=== PATIENT | female | born 1940 | race Caucasian/White ===

== ENCOUNTER → 2016-11-10 | Outpatient (CLI) | payer OTHER ==
--- NOTE | 2016-11-10 09:27 | XR ---
Lumbosacral spine HISTORY: Low back pain or graph 5 views of the lumbosacral spine on 6 images correlated to prior exam April 2015 Postoperative changes status post posterior lumbar fusion L4-5 S1 laminectomies is again noted. T12 i s thought to be nonrib-bearing. Bone mineralization is reduced. Lumbar vertebral bodies show preserve d height and alignment. Loss of disc height greatest at L4-5 and L5-S1. There is associated spondylos is. No evident spondylolysis. Surgical clips present in the right upper quadrant. IMPRESSION: Stable postoperative findings. Osteopenia. Degenerative disc disease.
== END | disposition home or self-care (01) ==
LOC: RADXRMAIN 08:55
PROVIDERS: ATTEND Family Medicine
DX: M51.36 Other intervertebral disc degeneration, lumbar region (principal); M85.88 Other specified disorders of bone density and structure, other site; Z98.890 Other specified postprocedural states
CPT/HCPCS: 72110

== ENCOUNTER → 2016-11-16 | Outpatient (CLI) | payer OTHER ==
--- NOTE | 2016-11-20 11:43 | MM ---
Reason for exam: screening (asymptomatic). Last mammogram was performed 1 year and 3 months ago. History: Patient is postmenopausal and has history of other cancer at age 60. Family history of breast cancer in paternal aunt at age 70, breast cancer in paternal aunt, and breast cancer in paternal grandmother. Benign excisional biopsy of the right breast. Took estrogen for 5 years. Physical Findings: A clinical breast exam by your physician is recommended on an annual basis and results should be correlated with mammographic findings. MG 3D Screening Mammo W/Cad Bilateral CC and MLO view(s) were taken. Prior study comparison: August 16, 2015, bilateral MG screening mammo w CAD. May 20, 2014, bilateral MG screening mammo w CAD. There are scattered fibroglandular densities. Finding: There are typically benign calcifications in both breasts. There is a chronic nodularity in the left breast, stable. No significant changes in finding since August 16, 2015 and May 20, 2014. ASSESSMENT: Benign, BI-RAD 2 RECOMMENDATION: Routine screening mammogram of both breasts in 1 year.
== END | disposition home or self-care (01) ==
LOC: RADMAMWWP 07:42
PROVIDERS: ATTEND Family Medicine
DX: Z12.31 Encounter for screening mammogram for malignant neoplasm of breast (principal); Z80.3 Family history of malignant neoplasm of breast
CPT/HCPCS: 77063; G0202

== ENCOUNTER 2017-01-05 13:43 | Observation (INO) | payer MEDICARE, OTHER ==
[2017-01-05] MEDS ORDERED: ASPIRIN 81 MG CHEW PO STA (14:39)
[2017-01-05] MEDS ORDERED: NITROGLYCERIN SL TABS 0.4 MG TAB SUBLINGUAL STA ×3 (14:39)
--- NOTE | 2017-01-05 14:42 | ED ---
General Adult HPI - General Chief complaint: Chest Pain Stated complaint: Chest Pain Time Seen by Provider: 01/05/17 14:22 Source: patient, RN notes reviewed Mode of arrival: ambulatory Limitations: no limitations - History of Present Illness Initial comments: Patient is a pleasant 76-year-old female presenting to the emergency department with chest discomfort. Symptoms have been present for a couple of days. Chest discomfort is mild. Patient states arm discomfort on the left is at times severe. Symptoms did improve with aspirin. Arm discomfort is moderate at this time. Patient does have some associated dyspnea. Symptoms are exertional. has had some nausea and some sweating. Patient also has lightheadedness. - Related Data Home Medications Medication Instructions Recorded Confirmed Furosemide [Lasix] 40 mg PO QAM 05/15/14 01/05/17 Insulin Aspart [NovoLOG] See Protocol SQ AC-TID 05/15/14 01/05/17 Levothyroxine Sodium [Synthroid] 100 mcg PO QAM 05/15/14 01/05/17 Potassium Chloride [K-Tab ER] 10 meq PO BID 05/15/14 01/05/17 Insulin Detemir [Levemir] 30 unit SQ HS 06/14/15 01/05/17 Losartan Potassium 100 mg PO QAM 06/14/15 01/05/17 metFORMIN HCL [Glucophage] 1,000 mg PO BID-W/MEALS 06/14/15 01/05/17 Acetaminophen [Tylenol Arthritis] 650 mg PO HS 01/05/17 01/05/17 Artificial Tears-Hypromellose 1 drops BOTH EYES TID PRN 01/05/17 01/05/17 [Artificial Tear Drops] Cholecalciferol [Vitamin D3] 5,000 unit PO DAILY 01/05/17 01/05/17 L.acidoph,Paracasei, B.lactis 1 cap PO DAILY 01/05/17 01/05/17 [Probiotic] Melatonin 5 mg PO HS 01/05/17 01/05/17 [place] Xl 1 cap PO DAILY 01/05/17 01/05/17 Allergies Allergy/AdvReac Type Severity Reaction Status Date / Time azithromycin Allergy Rash/Hives Verified 01/05/17 17:02 [From Zithromax Z-Jeanmarie] sulfamethoxazole Allergy Rash/Hives Verified 01/05/17 17:02 [From Bactrim] trimethoprim [From Bactrim] Allergy Rash/Hives Verified 01/05/17 17:02 hydrochlorothiazide AdvReac lost Verified 01/05/17 13:49 balance and fell Review of Systems ROS Statement: Those systems with pertinent positive or pertinent negative responses have been documented in the HPI. ROS Other: All systems not noted in ROS Statement are negative. Constitutional: Denies: fever Eyes: Denies: eye pain ENT: Denies: ear pain Respiratory: Reports: dyspnea. Denies: cough Cardiovascular: Reports: chest pain Endocrine: Denies: fatigue Gastrointestinal: Reports: nausea. Denies: abdominal pain Genitourinary: Denies: dysuria Musculoskeletal: Denies: back pain Skin: Denies: rash Neurological: Denies: headache Past Medical History Past Medical History: Cancer, COPD, Diabetes Mellitus, Hypertension Additional Past Medical History / Comment(s): RECENT ADMISSION TO WITH VERY ZOE BP & STROKE (NO RESIDUAL, NO CLOT BUSTERS). BASAL CELL CA. COPD FROM SECOND HAND SMOKE. History of Any Multi-Drug Resistant Organisms: None Reported Past Surgical History: Back Surgery, Bariatric Surgery, Cholecystectomy, Hysterectomy, Tonsillectomy Additional Past Surgical History / Comment(s): back surgery. LAP BAND AND THEN PORT REMOVAL. Past Anesthesia/Blood Transfusion Reactions: Previous Problems w/ Anesthesia Past Psychological History: No Psychological Hx Reported Smoking Status: Never smoker Past Alcohol Use History: None Reported Past Drug Use History: None Reported General Exam Limitations: no limitations General appearance: alert, in no apparent distress Head exam: Present: atraumatic Eye exam: Present: normal appearance, PERRL, EOMI. Absent: nystagmus ENT exam: Present: normal oropharynx Neck exam: Present: normal inspection Respiratory exam: Present: normal lung sounds bilaterally Cardiovascular Exam: Present: regular rate, normal rhythm Expanded Peripheral pulses: 2+: Radial (R), Radial (L), Posterior Tibialis (R), Posterior Tibialis (L) GI/Abdominal exam: Present: soft. Absent: tenderness Extremities exam: Present: normal inspection. Absent: pedal edema, calf tenderness Neurological exam: Present: alert, CN II-XII intact. Absent: motor sensory deficit Expanded Speech: Present: fluid speech Cranial nerves: EOM's Intact: Normal Sensory exam: Upper Extremity Light Touch: Normal, Lower Extremity Light Touch: Normal Motor strength exam: RUE: 5, LUE: 5, RLE: 5, LLE: 5 Eye Response: (4) open spontaneously Motor Response: (6) obeys commands Verbal Response: (5) oriented Psychiatric exam: Present: normal affect, normal mood Skin exam: Absent: rash Course Vital Signs 01/05/17 01/05/17 01/05/17 13:47 14:49 15:00 Temperature 98.3 F Pulse Rate 77 79 78 Respiratory 20 18 18 Rate Blood Pressure 165/75 231/121 215/115 O2 Sat by Pulse 99 78 L 98 Oximetry 01/05/17 16:00 Temperature Pulse Rate 66 Respiratory 18 Rate Blood Pressure 183/82 O2 Sat by Pulse 97 Oximetry EKG Findings - EKG Comments: EKG Findings:: Sinus rhythm at 73. RI 136. QRS 102. QT 408. QTC 449. Left axis. LVH criteria. No acute ST change. Medical Decision Making - Medical Decision Making Patient reevaluated and resting comfortably in bed. Patient updated on results and plan. Case was discussed in detail with Dr. Aj, who will admit for Dr. Alvares. Cardiology consult placed. Admission orders written. - Lab Data Result diagrams: 01/05/17 14:35 01/05/17 14:35 Lab Results 01/05/17 01/05/17 01/05/17 Range/Units 14:35 14:35 14:35 WBC 8.3 (3.8-10.6) k/uL RBC 4.54 (3.80-5.40) m/uL Hgb 13.4 (11.4-16.0) gm/dL Hct 39.8 (34.0-46.0) % MCV 87.5 (80.0-100.0) fL MCH 29.4 (25.0-35.0) pg MCHC 33.6 (31.0-37.0) g/dL RDW 13.0 (11.5-15.5) % Plt Count 234 (150-450) k/uL Neutrophils % (Manual) 59.0 % Lymphocytes % (Manual) 27.0 % Monocytes % (Manual) 11.0 % Eosinophils % (Manual) 3.0 % Neutrophils # (Manual) 4.9 (1.3-7.7) k/uL Lymphocytes # (Manual) 2.2 (1.0-4.8) k/uL Monocytes # (Manual) 0.9 (0-1.0) k/uL Eosinophils # (Manual) 0.2 (0-0.7) k/uL Nucleated RBCs 0 (0-0) /100 WBC Toxic Granulation Present Polychromasia Present PT (9.0-12.0) sec INR (<1.1) APTT (22.0-30.0) sec Sodium 142 (137-145) mmol/L Potassium 3.9 (3.5-5.1) mmol/L Chloride 102 (98-107) mmol/L Carbon Dioxide 29 (22-30) mmol/L Anion Gap 11 mmol/L BUN 18 H (7-17) mg/dL Creatinine 1.18 H (0.52-1.04) mg/dL Est GFR (MDRD) Af Amer 54 (>60 ml/min/1.73 sqM) Est GFR (MDRD) Non-Af 45 (>60 ml/min/1.73 sqM) Glucose 152 H (74-99) mg/dL Calcium 9.6 (8.4-10.2) mg/dL Magnesium 1.6 (1.6-2.3) mg/dL Total Bilirubin 0.6 (0.2-1.3) mg/dL AST 25 (14-36) U/L ALT 34 (9-52) U/L Alkaline Phosphatase 109 (38-126) U/L Total Creatine Kinase 111 (30-135) U/L CK-MB (CK-2) 4.0 H* (0.0-2.4) ng/mL CK-MB (CK-2) Rel Index 3.6 Troponin I <0.012 (0.000-0.034) ng/mL NT-Pro-B Natriuret Pep pg/mL Total Protein 6.8 (6.3-8.2) g/dL Albumin 3.9 (3.5-5.0) g/dL 01/05/17 01/05/17 Range/Units 14:35 14:35 WBC (3.8-10.6) k/uL RBC (3.80-5.40) m/uL Hgb (11.4-16.0) gm/dL Hct (34.0-46.0) % MCV (80.0-100.0) fL MCH (25.0-35.0) pg MCHC (31.0-37.0) g/dL RDW (11.5-15.5) % Plt Count (150-450) k/uL Neutrophils % (Manual) % Lymphocytes % (Manual) % Monocytes % (Manual) % Eosinophils % (Manual) % Neutrophils # (Manual) (1.3-7.7) k/uL Lymphocytes # (Manual) (1.0-4.8) k/uL Monocytes # (Manual) (0-1.0) k/uL Eosinophils # (Manual) (0-0.7) k/uL Nucleated RBCs (0-0) /100 WBC Toxic Granulation Polychromasia PT 10.3 (9.0-12.0) sec INR 1.0 (<1.1) APTT 23.3 (22.0-30.0) sec Sodium (137-145) mmol/L Potassium (3.5-5.1) mmol/L Chloride (98-107) mmol/L Carbon Dioxide (22-30) mmol/L Anion Gap mmol/L BUN (7-17) mg/dL Creatinine (0.52-1.04) mg/dL Est GFR (MDRD) Af Amer (>60 ml/min/1.73 sqM) Est GFR (MDRD) Non-Af (>60 ml/min/1.73 sqM) Glucose (74-99) mg/dL Calcium (8.4-10.2) mg/dL Magnesium (1.6-2.3) mg/dL Total Bilirubin (0.2-1.3) mg/dL AST (14-36) U/L ALT (9-52) U/L Alkaline Phosphatase (38-126) U/L Total Creatine Kinase (30-135) U/L CK-MB (CK-2) (0.0-2.4) ng/mL CK-MB (CK-2) Rel Index Troponin I (0.000-0.034) ng/mL NT-Pro-B Natriuret Pep 569 pg/mL Total Protein (6.3-8.2) g/dL Albumin (3.5-5.0) g/dL - Radiology Data Radiology results: image reviewed (Chest x-ray reveals no acute process) Critical Care Time Critical Care Time: Yes Total Critical Care Time: 32 Disposition Clinical Impression: Unstable angina pectoris Disposition: ADMITTED IP TO THIS [facility] Condition: Serious Referrals: Melly Alvares MD [Primary Care Provider] - 1-2 days
[2017-01-05 14:57] LABS: Aty Lym Flag Slight; CH 29.2; CHCM 33.6; HCT 39.8 % (34.0-46.0); HDW 2.67; HGB 13.4 gm/dL (11.4-16.0); MCH 29.4 pg (25.0-35.0); MCHC 33.6 g/dL (31.0-37.0); MCV 87.5 fL (80.0-100.0); Mean Platelet Volume 7.4; Partial Thromboplastin Time 23.3 sec (22.0-30.0); Prothrombin Time 10.3 sec (9.0-12.0); RBC 4.54 m/uL (3.80-5.40); WBC 8.3 k/uL (3.8-10.6); WBC (Perox) 8.25
[2017-01-05 15:11] LABS: Add Differential Manual Differential
[2017-01-05 15:12] LABS: Calcium 9.6 mg/dL (8.4-10.2); Magnesium 1.6 mg/dL (1.6-2.3); Potassium 3.9 mmol/L (3.5-5.1); Total Bilirubin 0.6 mg/dL (0.2-1.3); Total Protein 6.8 g/dL (6.3-8.2)
[2017-01-05 15:13] LABS: Nucleated Red Blood Cells 0 /100 WBC (0-0); Polychromasia Present; Total Cells Counted 100; Toxic Granulation Present
--- NOTE | 2017-01-05 15:13 | XR ---
EXAMINATION TYPE: XR chest 2V DATE OF EXAM: 01/05/2017 3:00 PM COMPARISON: 04/25/2015 HISTORY: 76-year-old female with chest pain TECHNIQUE: Frontal and lateral views FINDINGS: The heart is upper limits of normal in size. There is chronic arch calcifications. Mild diffuse inter stitial prominence as a chronic appearance. Strandy atelectasis in the lower lungs. No consolidation or pleural effusion. IMPRESSION: Borderline heart size. Chronic changes, possible chronic bronchitis/asthma. No acute change seen.
[2017-01-05 16:09] LABS: Creatine Kinase 111 U/L (30-135)
[2017-01-05 16:10] LABS: Troponin I <0.012 ng/mL (0.000-0.034)
[2017-01-05] MEDS ORDERED: amLODIPine 10 MG TAB PO STA (17:13)
[2017-01-05] MEDS ORDERED: MORPHINE SULFATE 2 MG/ML SYRINGE IVP STA (17:14)
[2017-01-05] MEDS ORDERED: NITROGLYCERIN OINT 1 INCH/GM PACKET TOPICAL STA (17:14)
[2017-01-05] MEDS ORDERED: NITROGLYCERIN SL TABS 0.4 MG TAB SUBLINGUAL PRN (17:23)
[2017-01-05] MEDS ORDERED: HEPARIN SODIUM,PORCINE 5,000 UNIT/ML 1 ML VIAL IV PRN (17:23)
[2017-01-05] MEDS ORDERED: HEPARIN SODIUM,PORCINE 5,000 UNIT/ML 1 ML VIAL IV ONE (17:23)
[2017-01-05] MEDS ORDERED: HEPARIN SODIUM,PORCINE/D5W PMX 25,000 UNIT in DEXTROSE/WATER 1 500ML.BAG IV SCH (17:30)
[2017-01-05] MEDS: NITROGLYCERIN OINT 1 INCH/GM PACKET TOPICAL SCH (17:45)
[2017-01-05 19:13] LABS: Calcium 9.3 mg/dL (8.4-10.2); Magnesium 1.5 mg/dL (1.6-2.3); Total Bilirubin 0.5 mg/dL (0.2-1.3); Total Protein 6.8 g/dL (6.3-8.2)
[2017-01-05 19:16] LABS: Creatine Kinase MB 3.6 ng/mL (0.0-2.4); Troponin I 0.016 ng/mL (0.000-0.034)
[2017-01-05 19:18] LABS: INR 1.2 (<1.1); Prothrombin Time 11.7 sec (9.0-12.0)
[2017-01-05 19:26] LABS: Partial Thromboplastin Time 124.8 sec (22.0-30.0)
[2017-01-05 19:43] LABS: Basophils # (A) 0.1 k/uL (0-0.2); Basophils % (A) 1 %; CH 28.8; CHCM 31.8; Eosinophils # (A) 0.6 k/uL (0-0.7); Eosinophils % (A) 6 %; HCT 41.2 % (34.0-46.0); HDW 2.53; HGB 13.3 gm/dL (11.4-16.0); Luc # (Auto) 0.37; Luc % (Auto) 4; Lymphocytes # (A) 2.2 k/uL (1.0-4.8); Lymphocytes % (A) 22 %; MCH 29.5 pg (25.0-35.0); MCHC 32.4 g/dL (31.0-37.0); Mean Platelet Volume 7.6; Monocytes # (A) 0.8 k/uL (0-1.0); Monocytes % (A) 8 %; Neutrophils # (A) 6.2 k/uL (1.3-7.7); Neutrophils % (A) 61 %; RBC 4.53 m/uL (3.80-5.40); RDW 13.2 % (11.5-15.5); WBC 10.1 k/uL (3.8-10.6); WBC (Perox) 10.56
[2017-01-05 20:35] LABS: Glucose,Whole Blood 196 mg/dL (75-99)
[2017-01-05] MEDS ORDERED: MELATONIN 5 MG TABLET PO SCH (21:00)
[2017-01-05] MEDS ORDERED: INSULIN DETEMIR 100 UNIT/ML 10 ML VIAL SQ SCH (21:00)
[2017-01-05 21:59] VITALS: BMI 34.3
--- NOTE | 2017-01-05 22:13 | HP ---
REASON FOR ADMISSION: chest pain and left arm numbness. HISTORY OF PRESENT ILLNESS: This is a 76-year-old female who comes in the hospital with intermittent episodes of the left arm pain Patient initially was going to go see her chiropractor; however, noted some pressure in the mid sternal region and hence, came into the hospital for ongoing care. Of note, the patient underwent a cardiac catheterization 3 years ago and was noted to have disease; however, no intervention was done. Medical management was appropriate at that time. EKG in the emergency room did not reveal ST-T wave changes. Initial troponin was negative. Patient states that her pain in the left arm is relieved at the time of my evaluation. States that the pain was significant in the left arm and mid sternal region, exacerbated with any activity, not associated with deep breathing. The patient also noted that in the recent times that she has had her diabetes it is uncontrolled. A1c is apparently greater than 10. Her blood pressure has also been uncontrolled and her losartan was increased to 100 mg p.o. daily over a week ago by her primary care physician. Patient is symptom-free at the time of my evaluation. REVIEW OF SYSTEMS: Fourteen-point review of system was done; none pertinent other than those mentioned above. Medications include: 1. Lasix. 2. NovoLog. 3. Synthroid. 4. K-Dur. 5. Levemir. 6. Losartan. 7. Metformin. 8. Tylenol. 9. Artificial tears. 10. Vitamin D3. 11. Probiotic. 12. Melatonin. 13. Declo ( ). Doses were reviewed and appropriately reconciled. ALLERGIES: 1. Zithromax. 2. Bactrim and 3. Hydrochlorothiazide. Past medical history includes COPD, diabetes mellitus, hypertension, basal cell cancer. SOCIAL HISTORY: Lifelong nonsmoker; however, secondhand smoke and exposure. No alcohol or illicit drug use. PAST SURGICAL HISTORY: Back surgery, bariatric surgery, cholecystectomy, hysterectomy, lap band and tonsillectomy. FAMILY HISTORY: No pertinent history to the current admission. PHYSICAL EXAMINATION: VITAL SIGNS: Temperature 98.3, heart rate 77, respiratory rate 20, blood pressure is 165/75, saturating 99% on room air. GENERALLY: Patient appears to be alert, oriented x3. HEENT: The pupils are equal and reactive to light and accommodation. HEART: S1, S2 present. No murmur appreciated. LUNGS: Good air entry. No wheezing or rhonchi noted. ABDOMINAL EXAM: Soft, nontender, no organomegaly appreciated. GENITOURINARY: No Moore in place. EXTREMITIES: Pulses can be palpated distally. Denies any tenderness on gross palpation. SKIN: On a gross skin exam does not appear to have any purpura or any skin rashes that were noted. NEUROLOGICALLY: Grossly cranial nerves 2-12 intact. No motor or sensory deficits noted. LABORATORY DATA: Hemoglobin 13.4, hematocrit 39.8, white count of 8.3, platelets of 234. Sodium 142, potassium 3.9, chloride 102, bicarb 29, BUN 18, creatinine 1.18. ASSESSMENT AND PLAN: 1. Atypical chest pain; rule out acute coronary syndrome. 2. Accelerated hypertension. 3. Diabetes mellitus, type 2, uncontrolled. 4. Chronic obstructive pulmonary disease. 5. Basal cell skin cancer. 6. Vitamin D3 insufficiency. 7. Hypothyroidism. 8. Chronic kidney disease stage 3. PLAN: Rule out ACS. Cardiac enzymes x3 will be done. We will add amlodipine 10 mg to the current medications. Home medications were reconciled. Will obtain a cardiology consultation as well. There are some typical features of it. Patient will be admitted to observation. Aspirin 325 mg was given. Nitroglycerin and morphine per ACS protocol. Patient will be reviewed tomorrow. Will monitor blood pressures overnight. Blood pressure is currently appropriate. There is no reason to aggressively treat the blood pressure as well. At this time, blood pressure is around 195/91. Will follow. MOLLY
[2017-01-05 23:37] LABS: Hemoglobin A1C 9.3 % (4.2-6.1)
[2017-01-06] MEDS: NITROGLYCERIN OINT 1 INCH/GM PACKET TOPICAL SCH ×2 (00:54→04:20)
[2017-01-06] MEDS: ACETAMINOPHEN TAB 325 MG TAB PO PRN ×3 (02:39→15:28)
[2017-01-06 03:04] LABS: Troponin I 0.014 ng/mL (0.000-0.034)
[2017-01-06 03:07] LABS: Creatine Kinase MB 2.8 ng/mL (0.0-2.4)
[2017-01-06 04:09] VITALS: RESP 16
[2017-01-06] MEDS: LEVOTHYROXINE 100 MCG TAB PO SCH ×2 (06:06→08:25)
[2017-01-06 06:56] LABS: Glucose,Whole Blood 145 mg/dL (75-99)
[2017-01-06 07:13] LABS: Basophils # (A) 0.1 k/uL (0-0.2); Basophils % (A) 1 %; CH 28.8; CHCM 32.2; Eosinophils # (A) 0.6 k/uL (0-0.7); Eosinophils % (A) 7 %; HCT 38.7 % (34.0-46.0); HDW 2.51; HGB 12.5 gm/dL (11.4-16.0); Luc # (Auto) 0.36; Luc % (Auto) 4; Lymphocytes # (A) 2.2 k/uL (1.0-4.8); Lymphocytes % (A) 24 %; MCHC 32.4 g/dL (31.0-37.0); MCV 89.7 fL (80.0-100.0); Mean Platelet Volume 7.5; Monocytes # (A) 0.9 k/uL (0-1.0); Monocytes % (A) 9 %; Neutrophils # (A) 5.2 k/uL (1.3-7.7); Neutrophils % (A) 56 %; RBC 4.31 m/uL (3.80-5.40); RDW 13.2 % (11.5-15.5); WBC 9.2 k/uL (3.8-10.6); WBC (Perox) 9.35
[2017-01-06 08:42] LABS: ALT 35 U/L (9-52); AST 18 U/L (14-36); Alkaline Phosphatase 99 U/L (38-126); Anion Gap 11 mmol/L; Blood Urea Nitrogen 21 mg/dL (7-17); Calcium 8.6 mg/dL (8.4-10.2); Carbon Dioxide 26 mmol/L (22-30); Chloride 105 mmol/L (98-107); Cholesterol 186 mg/dL (<200); Glucose 156 mg/dL (74-99); HDL Cholesterol 62 mg/dL (40-60); Non-African American GFR(MDRD) 53 (>60 ml/min/1.73 sqM); Potassium 3.4 mmol/L (3.5-5.1); Sodium 142 mmol/L (137-145); Total Bilirubin 0.5 mg/dL (0.2-1.3); Total Protein 5.8 g/dL (6.3-8.2); Triglycerides 294 mg/dL (<150)
[2017-01-06] MEDS ORDERED: CHOLECALCIFEROL 1,000 UNIT TAB PO SCH (09:00)
[2017-01-06] MEDS ORDERED: ASPIRIN 325 MG TAB PO SCH (09:00)
[2017-01-06] MEDS ORDERED: LOSARTAN 50 MG TAB PO SCH (09:00)
--- NOTE | 2017-01-06 10:48 | P.CRDCN ---
<Ofelia Nicholson - Last Filed: 01/06/17 10:38> History of Present Illness Consult date: 01/06/17 Reason for Consult (text): chest pain Chief complaint: left arm pain History of present illness: Is a pleasant 76-year-old female patient who follows with Dr. Hernandez in the office. Has a prior history of COPD, diabetes type 2 poorly controlled, hypertension, hypothyroidism, obesity, renal insufficiency and nonobstructive CAD noted on cardiac catheterization in 2014. It's the emergency department after developing left arm discomfort that extended from the back of her neck down her entire left arm. She also developed some shortness of breath while driving to her chiropractor's office and decided to come to the emergency department instead. She denied any complaints of chest discomfort, lightheadedness, nausea or vomiting, diaphoresis or syncope with the episode. On admission ECG showed sinus rhythm, laboratory values show to be on a 21 and creatinine 1.28 with troponins negative 3. Chest x-ray showed changes of chronic bronchitis versus asthma with no acute changes. An elevated since admission., Patient is sitting up side of the bed continues to complain of constant left arm pain. 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 BASAL CELL CA. COPD FROM SECOND HAND SMOKE. History of Any Multi-Drug Resistant Organisms: None Reported Past Surgical History: Back Surgery, Bariatric Surgery, Cholecystectomy, Heart Catheterization, Hysterectomy, Tonsillectomy Additional Past Surgical History / Comment(s): back surgery. LAP BAND AND THEN PORT REMOVAL, left carpal tunnel surgery x 2, alejandro cataract and laser surgery Past Anesthesia/Blood Transfusion Reactions: No Reported Reaction Past Psychological History: No Psychological Hx Reported Smoking Status: Never smoker Past Alcohol Use History: None Reported Past Drug Use History: None Reported - Past Family History Sister(s) Family Medical History: Myocardial Infarction (ID) Medications and Allergies Home Medications Medication Instructions Recorded Confirmed Type Furosemide [Lasix] 40 mg PO QAM 05/15/14 01/05/17 History Insulin Aspart [NovoLOG] See Protocol SQ AC-TID 05/15/14 01/05/17 History Levothyroxine Sodium [Synthroid] 100 mcg PO QAM 05/15/14 01/05/17 History Potassium Chloride [K-Tab ER] 10 meq PO BID 05/15/14 01/05/17 History Insulin Detemir [Levemir] 30 unit SQ HS 06/14/15 01/05/17 History Losartan Potassium 100 mg PO QAM 06/14/15 01/05/17 History metFORMIN HCL [Glucophage] 1,000 mg PO BID-W/MEALS 06/14/15 01/05/17 History Acetaminophen [Tylenol Arthritis] 650 mg PO HS 01/05/17 01/05/17 History Artificial Tears-Hypromellose 1 drops BOTH EYES TID PRN 01/05/17 01/05/17 History [Artificial Tear Drops] Cholecalciferol [Vitamin D3] 5,000 unit PO DAILY 01/05/17 01/05/17 History L.acidoph,Paracasei, B.lactis 1 cap PO DAILY 01/05/17 01/05/17 History [Probiotic] Melatonin 5 mg PO HS 01/05/17 01/05/17 History [place] Xl 1 cap PO DAILY 01/05/17 01/05/17 History Allergies Allergy/AdvReac Type Severity Reaction Status Date / Time azithromycin Allergy Rash/Hives Verified 01/05/17 17:02 [From Zithromax Z-Jeanmarie] sulfamethoxazole Allergy Rash/Hives Verified 01/05/17 17:02 [From Bactrim] trimethoprim [From Bactrim] Allergy Rash/Hives Verified 01/05/17 17:02 hydrochlorothiazide AdvReac lost Verified 01/05/17 13:49 balance and fell Physical Exam Vitals: Vital Signs Temp Pulse Pulse Resp BP BP Pulse Ox 01/06/17 07:47 98 F 66 16 158/85 95 01/06/17 04:00 97.9 F 54 L 16 166/84 95 01/06/17 03:26 72 18 01/05/17 23:50 67 18 141/71 97 01/05/17 23:24 54 L 18 01/05/17 20:00 98.6 F 70 18 141/63 97 01/05/17 18:00 54 L 18 195/91 97 01/05/17 17:00 61 18 192/88 99 01/05/17 16:00 66 18 183/82 97 01/05/17 15:00 78 18 215/115 98 01/05/17 14:49 79 18 231/121 78 L 01/05/17 13:47 98.3 F 77 20 165/75 99 Intake and Output 01/05/17 01/06/17 01/06/17 22:59 06:59 14:59 Intake Total 36.908 98.55 Balance 36.908 98.55 Intake: Intake, IV Titration 36.908 98.55 Amount Heparin Sodium,Porcine/ 36.908 98.55 D5w Pmx 25,000 unit In Dextrose/Water 1 500ml. bag @ 11 UNITS/KG/HR 19. 95 mls/hr IV .Q24H [facility] Rx #:[id number] Other: Voiding Method Toilet Toilet Toilet # Voids 2 Weight 90.718 kg 90.718 kg Patient Weight 01/07/17 06:59 Weight 90.718 kg PHYSICAL EXAMINATION: HEENT: Head is atraumatic, normocephalic. Pupils equal, round. Neck is supple. There is no elevated jugular venous pressure. HEART EXAMINATION: Heart sounds regular, S1 and S2 normal. No murmur or gallop heard. CHEST EXAMINATION: Lungs are clear to auscultation and precussion. No chest wall tenderness is noted on palpation or with deep breathing. ABDOMEN: Soft, obese, nontender. Bowel sounds are heard. No organomegaly noted. EXTREMITIES: 2+ peripheral pulses with no evidence of peripheral edema and no calf tenderness noted. NEUROLOGIC patient is awake, alert and oriented x3. . Results 01/06/17 06:20 01/06/17 06:20 Cardiac Enzymes 01/05/17 01/05/17 01/05/17 Range/Units 14:35 14:35 18:30 AST 25 23 (14-36) U/L CK-MB (CK-2) 4.0 H* (0.0-2.4) ng/mL Troponin I <0.012 (0.000-0.034) ng/mL 01/05/17 01/06/17 01/06/17 Range/Units 18:30 02:18 06:20 AST 18 (14-36) U/L CK-MB (CK-2) 3.6 H* 2.8 H* (0.0-2.4) ng/mL Troponin I 0.016 0.014 (0.000-0.034) ng/mL Coagulation 01/05/17 01/05/17 01/06/17 Range/Units 14:35 18:30 02:18 PT 10.3 11.7 (9.0-12.0) sec APTT 23.3 124.8 H* 34.7 H (22.0-30.0) sec 01/06/17 Range/Units 06:20 PT (9.0-12.0) sec APTT 39.6 H (22.0-30.0) sec Lipids 01/06/17 Range/Units 06:20 Triglycerides 294 H (<150) mg/dL Cholesterol 186 (<200) mg/dL HDL Cholesterol 62 H (40-60) mg/dL CBC 01/05/17 01/05/17 01/06/17 Range/Units 14:35 18:30 06:20 WBC 8.3 10.1 9.2 (3.8-10.6) k/uL RBC 4.54 4.53 4.31 (3.80-5.40) m/uL Hgb 13.4 13.3 12.5 (11.4-16.0) gm/dL Hct 39.8 41.2 38.7 (34.0-46.0) % Plt Count 234 230 186 (150-450) k/uL Comprehensive Metabolic Panel 01/05/17 01/05/17 01/06/17 Range/Units 14:35 18:30 06:20 Sodium 142 141 142 (137-145) mmol/L Potassium 3.9 4.0 3.4 L (3.5-5.1) mmol/L Chloride 102 105 105 (98-107) mmol/L Carbon Dioxide 29 25 26 (22-30) mmol/L BUN 18 H 21 H 21 H (7-17) mg/dL Creatinine 1.18 H 1.28 H 1.02 (0.52-1.04) mg/dL Glucose 152 H 224 H 156 H (74-99) mg/dL Calcium 9.6 9.3 8.6 (8.4-10.2) mg/dL AST 25 23 18 (14-36) U/L ALT 34 34 35 (9-52) U/L Alkaline Phosphatase 109 116 99 (38-126) U/L Total Protein 6.8 6.8 5.8 L (6.3-8.2) g/dL Albumin 3.9 3.8 3.3 L (3.5-5.0) g/dL Current Medications Generic Name Dose Route Start Last Admin Trade Name Freq PRN Reason Stop Dose Admin Acetaminophen 650 mg 01/06/17 02:31 01/06/17 08:25 Tylenol Tab PO 650 mg Q6HR PRN Administration Fever and/ or Pain Aspirin 325 mg 01/06/17 09:00 01/06/17 08:25 Aspirin PO 325 mg DAILY [facility] Administration Cholecalciferol 5,000 unit 01/06/17 09:00 01/06/17 08:25 Vitamin D3 PO 5,000 unit DAILY [facility] Administration Heparin Sodium (Porcine) 0 unit 01/05/17 17:23 Heparin IV Q6HR PRN Low PTT Protocol Heparin Sodium/Dextrose 25,000 500 mls @ 19.95 mls/hr 01/05/17 17:30 03:13 unit/ IV Solution IV 11.02 units/kg/hr .Q24H [facility] 20 mls/hr Protocol Titration 11 UNITS/KG/HR Insulin Detemir 30 unit 01/05/17 21:00 01/05/17 21:18 Levemir SQ 30 unit HS [facility] Administration Insulin Human Lispro 0 unit 01/06/17 09:45 Humalog SQ ACHS [facility] Protocol Levothyroxine Sodium 100 mcg 01/06/17 06:30 01/06/17 08:25 Synthroid PO 100 mcg DAILY@0630 [facility] Administration Losartan Potassium 100 mg 01/06/17 09:00 01/06/17 08:25 Cozaar PO 100 mg QAM [facility] Administration Melatonin 5 mg 01/05/17 21:00 01/05/17 21:18 Melatonin PO 5 mg HS [facility] Administration Nitroglycerin 1 inch 01/05/17 18:00 01/06/17 04:20 Nitro-Bid Oint TOPICAL Not Given Q6HR [facility] Nitroglycerin 0.4 mg 01/05/17 17:23 Nitrostat SUBLINGUAL Q5M PRN Chest Pain Intake and Output 05/19/17 05/20/17 05/20/17 22:59 06:59 14:59 Intake Total 36.908 98.55 Balance 36.908 98.55 Intake: Intake, IV Titration 36.908 98.55 Amount Heparin Sodium,Porcine/ 36.908 98.55 D5w Pmx 25,000 unit In Dextrose/Water 1 500ml. bag @ 11 UNITS/KG/HR 19. 95 mls/hr IV .Q24H [facility] Rx #:[id number] Other: Voiding Method Toilet Toilet Toilet # Voids 2 Weight 90.718 kg 90.718 kg Patient Weight 01/07/17 06:59 Weight 90.718 kg 01/06/17 06:20 01/06/17 06:20 Assessment and Plan Plan: Assessment and plan #1 left arm pain with shortness of breath, nonexertional, atypical for acute coronary syndrome, cardiac enzymes negative #2 hypertension, uncontrolled #3 diabetes mellitus type 2, uncontrolled #4 COPD #5 basal cell carcinoma #6 hypothyroidism #7 chronic kidney disease Cardiac standpoint, cardiac enzymes have been negative 3. Arm pain is atypical for acute coronary syndrome. We'll obtain a 2-D echo with Doppler increase activity, discontinue heparin. Likely discharge home today and follow- up with Dr. Hernandez as an outpatient. IMPLEMENTATION ADVISOR note has been reviewed, I agree with a documented findings and plan of care. Patient was seen and examined. <Franco Hardy - Last Filed: 01/06/17 11:08> Physical Exam Vitals: Vital Signs Temp Pulse Pulse Resp BP BP Pulse Ox 01/06/17 07:47 98 F 66 16 158/85 95 01/06/17 04:00 97.9 F 54 L 16 166/84 95 01/06/17 03:26 72 18 01/05/17 23:50 67 18 141/71 97 01/05/17 23:24 54 L 18 01/05/17 20:00 98.6 F 70 18 141/63 97 01/05/17 18:00 54 L 18 195/91 97 01/05/17 17:00 61 18 192/88 99 01/05/17 16:00 66 18 183/82 97 01/05/17 15:00 78 18 215/115 98 01/05/17 14:49 79 18 231/121 78 L 01/05/17 13:47 98.3 F 77 20 165/75 99 Intake and Output 01/05/17 01/06/17 01/06/17 22:59 06:59 14:59 Intake Total 36.908 98.55 Balance 36.908 98.55 Intake: Intake, IV Titration 36.908 98.55 Amount Heparin Sodium,Porcine/ 36.908 98.55 D5w Pmx 25,000 unit In Dextrose/Water 1 500ml. bag @ 11 UNITS/KG/HR 19. 95 mls/hr IV .Q24H [facility] Rx #:[id number] Other: Voiding Method Toilet Toilet Toilet # Voids 2 Weight 90.718 kg 90.718 kg Patient Weight 01/07/17 06:59 Weight 90.718 kg Results 01/06/17 06:20 01/06/17 06:20 Cardiac Enzymes 01/05/17 01/05/17 01/05/17 Range/Units 14:35 14:35 18:30 AST 25 23 (14-36) U/L CK-MB (CK-2) 4.0 H* (0.0-2.4) ng/mL Troponin I <0.012 (0.000-0.034) ng/mL 01/05/17 01/06/17 01/06/17 Range/Units 18:30 02:18 06:20 AST 18 (14-36) U/L CK-MB (CK-2) 3.6 H* 2.8 H* (0.0-2.4) ng/mL Troponin I 0.016 0.014 (0.000-0.034) ng/mL Coagulation 01/05/17 01/05/17 01/06/17 Range/Units 14:35 18:30 02:18 PT 10.3 11.7 (9.0-12.0) sec APTT 23.3 124.8 H* 34.7 H (22.0-30.0) sec 01/06/17 Range/Units 06:20 PT (9.0-12.0) sec APTT 39.6 H (22.0-30.0) sec Lipids 01/06/17 Range/Units 06:20 Triglycerides 294 H (<150) mg/dL Cholesterol 186 (<200) mg/dL HDL Cholesterol 62 H (40-60) mg/dL CBC 01/05/17 01/05/17 01/06/17 Range/Units 14:35 18:30 06:20 WBC 8.3 10.1 9.2 (3.8-10.6) k/uL RBC 4.54 4.53 4.31 (3.80-5.40) m/uL Hgb 13.4 13.3 12.5 (11.4-16.0) gm/dL Hct 39.8 41.2 38.7 (34.0-46.0) % Plt Count 234 230 186 (150-450) k/uL Comprehensive Metabolic Panel 01/05/17 01/05/17 01/06/17 Range/Units 14:35 18:30 06:20 Sodium 142 141 142 (137-145) mmol/L Potassium 3.9 4.0 3.4 L (3.5-5.1) mmol/L Chloride 102 105 105 (98-107) mmol/L Carbon Dioxide 29 25 26 (22-30) mmol/L BUN 18 H 21 H 21 H (7-17) mg/dL Creatinine 1.18 H 1.28 H 1.02 (0.52-1.04) mg/dL Glucose 152 H 224 H 156 H (74-99) mg/dL Calcium 9.6 9.3 8.6 (8.4-10.2) mg/dL AST 25 23 18 (14-36) U/L ALT 34 34 35 (9-52) U/L Alkaline Phosphatase 109 116 99 (38-126) U/L Total Protein 6.8 6.8 5.8 L (6.3-8.2) g/dL Albumin 3.9 3.8 3.3 L (3.5-5.0) g/dL Current Medications Generic Name Dose Route Start Last Admin Trade Name Freq PRN Reason Stop Dose Admin Acetaminophen 650 mg 01/06/17 02:31 01/06/17 08:25 Tylenol Tab PO 650 mg Q6HR PRN Administration Fever and/ or Pain Amlodipine Besylate 5 mg 01/06/17 11:15 Norvasc PO DAILY [facility] Aspirin 325 mg 01/06/17 09:00 01/06/17 08:25 Aspirin PO 325 mg DAILY [facility] Administration Cholecalciferol 5,000 unit 01/06/17 09:00 01/06/17 08:25 Vitamin D3 PO 5,000 unit DAILY [facility] Administration Heparin Sodium (Porcine) 0 unit 01/05/17 17:23 Heparin IV Q6HR PRN Low PTT Protocol Heparin Sodium/Dextrose 25,000 500 mls @ 19.95 mls/hr 01/05/17 17:30 03:13 unit/ IV Solution IV 11.02 units/kg/hr .Q24H [facility] 20 mls/hr Protocol Titration 11 UNITS/KG/HR Insulin Detemir 30 unit 01/05/17 21:00 01/05/17 21:18 Levemir SQ 30 unit HS [facility] Administration Insulin Human Lispro 0 unit 01/06/17 09:45 Humalog SQ ACHS [facility] Protocol Levothyroxine Sodium 100 mcg 01/06/17 06:30 01/06/17 08:25 Synthroid PO 100 mcg DAILY@0630 [facility] Administration Losartan Potassium 100 mg 01/06/17 09:00 01/06/17 08:25 Cozaar PO 100 mg QAM [facility] Administration Melatonin 5 mg 01/05/17 21:00 01/05/17 21:18 Melatonin PO 5 mg HS [facility] Administration Nitroglycerin 0.4 mg 01/05/17 17:23 Nitrostat SUBLINGUAL Q5M PRN Chest Pain Intake and Output 01/05/17 01/06/17 01/06/17 22:59 06:59 14:59 Intake Total 36.908 98.55 Balance 36.908 98.55 Intake: Intake, IV Titration 36.908 98.55 Amount Heparin Sodium,Porcine/ 36.908 98.55 D5w Pmx 25,000 unit In Dextrose/Water 1 500ml. bag @ 11 UNITS/KG/HR 19. 95 mls/hr IV .Q24H [facility] Rx #:[id number] Other: Voiding Method Toilet Toilet Toilet # Voids 2 Weight 90.718 kg 90.718 kg Patient Weight 01/07/17 06:59 Weight 90.718 kg 01/06/17 06:20 01/06/17 06:20
--- NOTE | 2017-01-06 11:09 | P.PN ---
Progress Note - Text Patient seen and examined. I have added amlodipine 5 mg by mouth daily and hopefully her blood pressure improves with this. She will see Dr. Hernandez and a development officer as an outpatient. Please see full consult
[2017-01-06] MEDS ORDERED: amLODIPine 5 MG TAB PO SCH (11:30)
[2017-01-06 11:45] VITALS: BP 189/88; PULSE 71; TEMP 97.8
[2017-01-06 12:05] LABS: Glucose,Whole Blood 244 mg/dL (75-99)
[2017-01-06] MEDS: INSULIN LISPRO (humaLOG) 300 UNIT/3 ML VIAL SQ SCH ×2 (12:58→13:02)
--- NOTE | 2017-01-06 15:17 | P.DS ---
Providers Date of admission: 01/05/17 17:23 Attending physician: Joey Aj MD Consults: 01/05/17 17:15 Consult Physician Urgent Consulting Provider: Renée Hernandez Consult Reason/Comments: chest pain Do you want consulting provider notified?: Yes Primary care physician: Melly Alvares MD Hospital Course: HISTORY OF PRESENT ILLNESS: This is a 76-year-old female who comes in the hospital with intermittent episodes of the left arm pain Patient initially was going to go see her chiropractor; however, noted some pressure in the mid sternal region and hence, came into the hospital for ongoing care. Of note, the patient underwent a cardiac catheterization 3 years ago and was noted to have disease; however, no intervention was done. Medical management was appropriate at that time. EKG in the emergency room did not reveal ST-T wave changes. Initial troponin was negative. Patient states that her pain in the left arm is relieved at the time of my evaluation. States that the pain was significant in the left arm and mid sternal region, exacerbated with any activity, not associated with deep breathing. The patient also noted that in the recent times that she has had her diabetes it is uncontrolled. A1c is apparently greater than 10. Her blood pressure has also been uncontrolled and her losartan was increased to 100 mg p.o. daily over a week ago by her primary care physician. Patient is symptom-free at the time of my evaluation. 01/06/2017 Patient states that she does not have any further episodes of chest pain denies having any nausea vomiting diarrhea. Does state to have some ache in her left arm which is relieved with Tylenol at this time Cardiac enzymes 3 have been negative PHYSICAL EXAMINATION: VITAL SIGNS: Temperature 98.3, heart rate 77, respiratory rate 20, blood pressure is 165/75, saturating 99% on room air. GENERALLY: Patient appears to be alert, oriented x3. HEENT: The pupils are equal and reactive to light and accommodation. HEART: S1, S2 present. No murmur appreciated. LUNGS: Good air entry. No wheezing or rhonchi noted. ABDOMINAL EXAM: Soft, nontender, no organomegaly appreciated. GENITOURINARY: No Moore in place. EXTREMITIES: Pulses can be palpated distally. Denies any tenderness on gross palpation. SKIN: On a gross skin exam does not appear to have any purpura or any skin rashes that were noted. NEUROLOGICALLY: Grossly cranial nerves 2-12 intact. No motor or sensory deficits noted. ASSESSMENT AND PLAN: 1. Atypical chest pain; rule out acute coronary syndrome. 2. Accelerated hypertension. 3. Diabetes mellitus, type 2, uncontrolled. 4. Chronic obstructive pulmonary disease. 5. Basal cell skin cancer. 6. Vitamin D3 insufficiency. 7. Hypothyroidism. 8. Chronic kidney disease stage 3. ACS is ruled out. Patient's blood pressures improved has decreased close to 25 % over the last 30 hours We'll discharge the patient on amlodipine 10 mg in addition to her losartan. Patient is to follow-up with her primary care physician and Dr. Hernandez in undergo outpatient workup for CAD Patient Condition at Discharge: Serious Plan - Discharge Summary New Discharge Prescriptions: RX: amLODIPine [Norvasc] 10 mg PO DAILY #30 tab Discharge Medication List RX: Furosemide [Lasix] 40 mg PO QAM 05/15/14 [History] RX: Insulin Aspart [NovoLOG] See Protocol SQ AC-TID 05/15/14 [History] RX: Levothyroxine Sodium [Synthroid] 100 mcg PO QAM 05/15/14 [History] RX: Potassium Chloride [K-Tab ER] 10 meq PO BID 05/15/14 [History] RX: Insulin Detemir [Levemir] 30 unit SQ HS 06/14/15 [History] RX: Losartan Potassium 100 mg PO QAM 06/14/15 [History] RX: metFORMIN HCL [Glucophage] 1,000 mg PO BID-W/MEALS 06/14/15 [History] [place] Xl 1 cap PO DAILY 01/05/17 [History] RX: Acetaminophen [Tylenol Arthritis] 650 mg PO HS 01/05/17 [History] RX: Artificial Tears-Hypromellose [Artificial Tear Drops] 1 drops BOTH EYES TID PRN 01/05/17 [History] RX: Cholecalciferol [Vitamin D3] 5,000 unit PO DAILY 01/05/17 [History] RX: L.acidoph,Paracasei, B.lactis [Probiotic] 1 cap PO DAILY 01/05/17 [History] RX: Melatonin 5 mg PO HS 01/05/17 [History] RX: amLODIPine [Norvasc] 10 mg PO DAILY #30 tab 01/06/17 [Rx] Follow up Appointment(s)/Referral(s): Melly Alvares MD [Primary Care Provider] - 1-2 days Renée Hernandez MD [STAFF PHYSICIAN] - 1 Week Discharge Disposition: HOME SELF-CARE
== END 2017-01-06 16:07 | disposition home or self-care (01) ==
LOC: EC 13:43 → 3OBS 17:23 → 3SUR 19:00
PROVIDERS: ADMIT Internal Medicine; ATTEND Internal Medicine
DX: R07.89 Other chest pain (principal); M79.602 Pain in left arm; R06.02 Shortness of breath; R20.0 Anesthesia of skin; E03.9 Hypothyroidism, unspecified; E11.22 Type 2 diabetes mellitus with diabetic chronic kidney disease; E11.65 Type 2 diabetes mellitus with hyperglycemia; J44.9 Chronic obstructive pulmonary disease, unspecified; Z77.22 Contact with and (suspected) exposure to environmental tobacco smoke (acute) (chronic); E55.9 Vitamin D deficiency, unspecified; I13.0 Hypertensive heart and chronic kidney disease with heart failure and stage 1 through stage 4 chronic kidney disease, or unspecified chronic kidney disease; I50.9 Heart failure, unspecified; N18.3 Chronic kidney disease, stage 3 (moderate); E78.5 Hyperlipidemia, unspecified; K21.9 Gastro-esophageal reflux disease without esophagitis; I25.10 Atherosclerotic heart disease of native coronary artery without angina pectoris; Z98.84 Bariatric surgery status; C44.91 Basal cell carcinoma of skin, unspecified; Z79.899 Other long term (current) drug therapy; Z79.84 Long term (current) use of oral hypoglycemic drugs; Z79.4 Long term (current) use of insulin; Z88.1 Allergy status to other antibiotic agents; Z88.2 Allergy status to sulfonamides; Z88.8 Allergy status to other drugs, medicaments and biological substances; Z86.73 Personal history of transient ischemic attack (TIA), and cerebral infarction without residual deficits; G47.30 Sleep apnea, unspecified; Z99.89 Dependence on other enabling machines and devices; E66.9 Obesity, unspecified; Z68.34 Body mass index [BMI] 34.0-34.9, adult
CPT/HCPCS: 96366 ×2; 96376; 96365; 99291; 36415; 93005; 83880; 80061; 80053 ×2; 84443; 83036; 82550 ×2; 82553 ×2; 83735; 84484 ×2; 85025 ×2; 85610; 85730 ×2; 71020; G0378 ×2; J1644 ×2

== ENCOUNTER → 2017-01-29 | Outpatient (CLI) | payer MEDICARE, OTHER ==
--- NOTE | 2017-01-29 11:37 | XR ---
Cervical spine HISTORY: Neck pain 5 views of the cervical spine on 7 images There is multilevel facet arthropathy. Cervical vertebral bodies show preserved height. Anterolisthes is grade 1 C2-3, C3-4. Some loss of disc height suspected C5-6, C6-7. Odontoid view is limited. Preve rtebral soft tissues are normal. Some foraminal encroachment is suspected C3-4, C6-7. IMPRESSION: Degenerative disc disease, multilevel foraminal encroachment. Cervical MRI may be of bene fit. Facet arthropathy.
== END | disposition home or self-care (01) ==
LOC: RADXRMAIN 10:53
PROVIDERS: ATTEND Family Medicine
DX: M50.30 Other cervical disc degeneration, unspecified cervical region (principal); M46.02 Spinal enthesopathy, cervical region
CPT/HCPCS: 72050

== ENCOUNTER 2017-05-31 06:48 | Day surgery (SDC) | payer MEDICARE, OTHER ==
[2017-05-30 08:55] VITALS: BMI 34.3
[~2017-05-31 06:48] MED LIST: LACTATED RINGERS 1,000 ML IV SCH
[2017-05-31 07:13] VITALS: TEMP 98
[2017-05-31 07:30] LABS: Glucose,Whole Blood 86 mg/dL (75-99)
[2017-05-31] MEDS ORDERED: PROPOFOL 10 MG/ML 20 ML VIAL IV ONE (08:39)
--- NOTE | 2017-05-31 09:11 | P.PCN ---
Date of Procedure: 05/31/17 Procedure(s) Performed: Procedure: Total colonoscopy. Preoperative diagnosis: Family history of colon cancer and change in bowel habits. Postoperative diagnosis: Exam within normal limits. Preparation: HalfLytely prep. Sedation: Was provided by anesthesia. Brief clinical history: The patient is a 76-year-old female with family history of colon cancer in her brother. On a prior exam in December 2011 she had less than ideal preparation and on her last exam in 2013 she had an exam within normal limits. She has been having change in bowel habits but no abdominal pain, bleeding or anemia. Procedure: With the patient on her left lateral decubitus position and after informed consent and adequate sedation, the perianal area was inspected and it did not show any fissures or fistulas. There were no masses felt on digital rectal examination. The Olympus CFQ 160L video colonoscope was then inserted in the rectum in the usual fashion and advanced to the cecum. The preparation was good. The mucosa appeared healthy. No polyps or tumors were seen. No obvious diverticular disease. I retroflexed the endoscope in the rectum before the endoscope was withdrawn. Low-grade internal hemorrhoids were again noted with no evidence of bleeding. Disposition: The patient tolerated the procedure well. Plan: The patient was reassured. Discussed dietary measures. I recommended repeat exam in 5 years depending on her overall health at that time. She will follow-up with you as planned.
[2017-05-31 09:12] LABS: Glucose,Whole Blood 273 mg/dL (75-99)
[2017-05-31 09:35] VITALS: BP 110/74; PULSE 48; RESP 16
== END 2017-05-31 09:47 | disposition home or self-care (01) ==
LOC: ORWHC2ENDO 06:48
DX: R19.4 Change in bowel habit (principal); K64.8 Other hemorrhoids; Z80.0 Family history of malignant neoplasm of digestive organs; I25.10 Atherosclerotic heart disease of native coronary artery without angina pectoris; I11.0 Hypertensive heart disease with heart failure; I50.9 Heart failure, unspecified; E78.5 Hyperlipidemia, unspecified; J44.9 Chronic obstructive pulmonary disease, unspecified; G47.33 Obstructive sleep apnea (adult) (pediatric); E11.9 Type 2 diabetes mellitus without complications; Z79.4 Long term (current) use of insulin; Z86.73 Personal history of transient ischemic attack (TIA), and cerebral infarction without residual deficits; Z79.82 Long term (current) use of aspirin; Z79.899 Other long term (current) drug therapy; Z88.1 Allergy status to other antibiotic agents; Z88.2 Allergy status to sulfonamides
CPT/HCPCS: 45378; J2704

== ENCOUNTER → 2017-08-16 | Outpatient (CLI) | payer MEDICARE, OTHER ==
[2017-08-16 08:47] LABS: ALT 35 U/L (9-52); AST 24 U/L (14-36); Cholesterol 133 mg/dL (<200); Creatine Kinase 85 U/L (30-135); HDL Cholesterol 71 mg/dL (40-60)
== END | disposition home or self-care (01) ==
LOC: LABWHC1 07:48
PROVIDERS: ATTEND Internal Medicine Interventional Cardiology
DX: E78.2 Mixed hyperlipidemia (principal)
CPT/HCPCS: 36415; 80061; 82550; 84450; 84460

== ENCOUNTER → 2017-11-19 | Outpatient (CLI) | payer MEDICARE ==
[2017-11-19 09:17] LABS: ALT 32 U/L (9-52); AST 21 U/L (14-36); Cholesterol 158 mg/dL (<200); HDL Cholesterol 69 mg/dL (40-60); LDL Cholesterol,Calculated 61 mg/dL (0-99); Triglycerides 139 mg/dL (<150)
== END | disposition home or self-care (01) ==
LOC: LABWHC1 08:15
PROVIDERS: ATTEND Nurse Practitioner Adult Health
DX: E78.2 Mixed hyperlipidemia (principal)
CPT/HCPCS: 36415; 80061; 84450; 84460

== ENCOUNTER → 2018-05-01 | Outpatient (CLI) | payer MEDICARE ==
--- NOTE | 2018-05-02 10:26 | XR ---
Left humerus HISTORY: Pain in upper arm 2 views of the left humerus There is joint space loss with marginal spurring of the humeral head, subchondral sclerosis at the gl enohumeral joint. Arthropathy noted at the acromioclavicular joint. Ossific density superimposed over the scapula, labrum and a subcoracoid location are noted, the larger of the 2 measuring 2 cm. 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
== END ==
LOC: RADXRMAIN 16:20
PROVIDERS: ATTEND Family Medicine
DX: M19.042 Primary osteoarthritis, left hand (principal)

== ENCOUNTER → 2018-05-03 | Outpatient (CLI) | payer MEDICARE ==
--- NOTE | 2018-05-07 08:35 | MM ---
Reason for exam: screening (asymptomatic). Last mammogram was performed 1 year and 5 months ago. History: Patient is postmenopausal and has history of other cancer at age 60. Family history of breast cancer in paternal aunt at age 70, breast cancer in paternal aunt, and breast cancer in paternal grandmother. Benign excisional biopsy of the right breast. Took estrogen for 5 years. Physical Findings: A clinical breast exam by your physician is recommended on an annual basis and results should be correlated with mammographic findings. MG 3D Screening Mammo W/Cad Bilateral CC and MLO view(s) were taken. Technologist: RT Lorrie (R)(M) Prior study comparison: November 16, 2016, bilateral MG 3d screening mammo w/cad. August 16, 2015, bilateral MG screening mammo w CAD. There are scattered fibroglandular densities. Mole medial left breast. No significant changes when compared with prior studies. ASSESSMENT: Negative, BI-RAD 1 RECOMMENDATION: Routine screening mammogram of both breasts in 1 year.
== END | disposition home or self-care (01) ==
LOC: RADMAMWWP 08:08
PROVIDERS: ATTEND Family Medicine
DX: Z12.31 Encounter for screening mammogram for malignant neoplasm of breast (principal)
CPT/HCPCS: 77063; 77067

== ENCOUNTER → 2018-05-31 | Outpatient (CLI) | payer MEDICARE, OTHER ==
--- NOTE | 2018-05-31 16:20 | MR ---
EXAMINATION TYPE: MR shoulder LT wo con DATE OF EXAM: 05/31/2018 COMPARISON: September 2017 HISTORY: Left shoulder pain, OA TECHNIQUE: Multiplanar, multisequence imaging of the left shoulder is performed without contrast. FINDINGS: Rotator Cuff: No tendon or muscle retraction is evident. Some very minimal signal is within the dista l supraspinatus tendon suggesting a small perforation may be present. Acromioclavicular Joint: Intact. Minimal spurring superiorly and inferiorly is present. Glenohumeral Joint: There is some elevation of the humerus in relation to the glenoid. Joint space na rrowing is present. There is poor visualization of the articular surfaces findings can be compatible with osteoarthritic degenerative change. Labrum: The glenoid labrum is not well visualized on this exam. Joint effusion: Moderate size joint effusion is evident. Some filling defects within the capsule spac e present. These correspond to the plain film findings Biceps Tendon: Fluid surrounds the long head biceps tendon. Correlate tendinosis. Bone marrow signal: No focal abnormal marrow signal is appreciated. Other: No additional significant abnormality is appreciated. IMPRESSION: 1. Moderate joint effusion. 2. Osseous vertebral bodies. The within the anterior capsule and were identified on plain film. 3. Moderate Osteoarthritic degenerative change of the glenohumeral joint space. 4. Moderate tendinosis long head biceps tendon. 5. Moderate tendinosis supraspinatus tendon versus tiny perforation with fluid in the subacromial and subdeltoid bursitis.
== END | disposition home or self-care (01) ==
LOC: RADMRIMAIN 10:41
PROVIDERS: ATTEND Family Medicine
DX: M19.012 Primary osteoarthritis, left shoulder (principal); M75.22 Bicipital tendinitis, left shoulder

== ENCOUNTER → 2018-06-10 | Outpatient (CLI) | payer MEDICARE, OTHER ==
[2018-06-10 11:04] LABS: Albumin 3.6 g/dL (3.5-5.0); Calcium 9.1 mg/dL (8.4-10.2); Potassium 4.2 mmol/L (3.5-5.1); Total Bilirubin 0.5 mg/dL (0.2-1.3); Total Protein 6.4 g/dL (6.3-8.2)
== END | disposition home or self-care (01) ==
LOC: LABWHC1 08:13
PROVIDERS: ATTEND Internal Medicine Interventional Cardiology
DX: E78.2 Mixed hyperlipidemia (principal)
CPT/HCPCS: 36415; 80053; 80061

== ENCOUNTER → 2018-07-16 | Outpatient (CLI) | payer MEDICARE ==
--- NOTE | 2018-07-16 12:03 | XR ---
EXAMINATION TYPE: XR chest 2V DATE OF EXAM: 07/16/2018 COMPARISON: 07/04/2018 TECHNIQUE: PA and lateral views submitted. HISTORY: Pneumonia FINDINGS: Left perihilar infiltrate noted. Right lung clear. Calcification involving the neck of the right holland anna may relate to bone infarct. Atherosclerotic change aorta. Heart size stable. No pneumothorax. Catherine pical pleural thickening. Hypertrophic and degenerative change of the spine. Surgical clips in the ab domen. IMPRESSION: 1. There is interval improvement of the left perihilar area of infiltrate with persistent changes lauryn ntified. Follow to resolution to exclude other etiologies than pneumonia.
== END | disposition home or self-care (01) ==
LOC: RADXRMAIN 11:08
PROVIDERS: ATTEND Internal Medicine Infectious Disease
DX: R91.8 Other nonspecific abnormal finding of lung field (principal)
CPT/HCPCS: 71046

== ENCOUNTER → 2018-09-16 | Outpatient (CLI) | payer MEDICARE ==
[2018-09-16 17:48] LABS: Albumin 4.1 g/dL (3.80-4.90); Albumin/Globulin Ratio 2.05 (1.20-2.10); Anion Gap 11.1 mmol/L (4.00-12.00); Calcium 9.5 mg/dL (8.7-10.3); Carbon Dioxide 30.9 mmol/L (21.6-31.8); LDL Cholesterol,Calculated 37.8 mg/dL (0.0-131.0); Potassium 4.4 mmol/L (3.5-5.5); Total Bilirubin 0.6 mg/dL (0.2-1.2); Total Protein 6.1 g/dL (6.2-8.2); VLDL Calculation 42.2 mg/dL (5.00-40.00)
[2018-09-16 22:25] LABS: T4, Free (Free Thyroxine) 1.3 ng/dL (0.80-1.80)
== END | disposition home or self-care (01) ==
LOC: LABWHC1 10:37
PROVIDERS: ATTEND Internal Medicine Interventional Cardiology
DX: E03.9 Hypothyroidism, unspecified (principal); E78.2 Mixed hyperlipidemia
CPT/HCPCS: 36415; 80053; 80061; 84439; 84443

== ENCOUNTER 2018-09-19 10:22 | Inpatient (IN) | payer MEDICARE, OTHER ==
[2018-09-19 10:27] LABS: Basophils # (A) 0.1 k/uL (0-0.2); Basophils % (A) 0 %; Eosinophils # (A) 0.1 k/uL (0-0.7); Eosinophils % (A) 0 %; HCT 42.8 % (34.0-46.0); HGB 13.2 gm/dL (11.4-16.0); Lymphocytes # (A) 1.4 k/uL (1.0-4.8); Lymphocytes % (A) 6 %; MCH 28.5 pg (25.0-35.0); MCV 92.1 fL (80.0-100.0); Mean Platelet Volume 6.9; Monocytes # (A) 2.5 k/uL (0-1.0); Monocytes % (A) 11 %; Neutrophils # (A) 18.5 k/uL (1.3-7.7); Neutrophils % (A) 80 %; Platelet Count 294 k/uL (150-450); RBC 4.64 m/uL (3.80-5.40); RDW 13.8 % (11.5-15.5); WBC 23.1 k/uL (3.8-10.6)
[2018-09-19] MEDS ORDERED: SODIUM CHLORIDE 0.9% 500 ML 500 ML IV STA ×2 (11:19→14:16)
--- NOTE | 2018-09-19 11:20 | ED ---
General Adult HPI - General Chief complaint: Weakness Stated complaint: Generalized weakness Time Seen by Provider: 09/19/18 10:45 Source: patient, RN notes reviewed Mode of arrival: wheelchair Limitations: no limitations - History of Present Illness Initial comments: Patient is a pleasant 78-year-old female presenting to the emergency Department with complaints of generalized weakness. Symptoms have progressively the past couple of days. Patient has had a couple of falls, no serious injury. Patient denies any confusion. No isolated area of weakness. No fevers. No cough or dyspnea. No chest pain. No abdominal pain. No dysuria or hematuria or frequency. Patient did have similar symptoms several months ago and was diagnosed with pneumonia and sepsis. Patient does feel somewhat lightheaded. - Related Data Home Medications Medication Instructions Recorded Confirmed Levothyroxine Sodium [Synthroid] 100 mcg PO QAM 05/15/14 09/19/18 Potassium Chloride [K-Tab ER] 10 meq PO BID 05/15/14 09/19/18 Losartan Potassium 100 mg PO QAM 06/14/15 09/19/18 metFORMIN HCL [Glucophage] 1,000 mg PO BID-W/MEALS 06/14/15 09/19/18 Aspirin 81 mg PO DAILY 05/30/17 09/19/18 Vitamin E (Dl,Tocopheryl Acet) 400 unit PO DAILY 05/30/17 09/19/18 [Vitamin E] Atorvastatin [Lipitor] 80 mg PO HS 06/30/18 09/19/18 Calcium Acetate [PhosLo] 667 mg PO TID 06/30/18 09/19/18 Cholecalciferol (Vitamin D3) 2,000 unit PO DAILY 06/30/18 09/19/18 [Vitamin D3] INSULIN LISPRO (humaLOG) [humaLOG] See Protocol SQ AC-TID 06/30/18 09/19/18 Magnesium Oxide [Magox 400] 400 mg PO TID 06/30/18 09/19/18 Turmeric/Turmeric Root Extract 1 cap PO DAILY 06/30/18 09/19/18 [Turmeric 450-50 mg Capsule] ALPRAZolam [Xanax] 0.25 - 0.5 mg PO HS PRN 09/19/18 09/19/18 Furosemide [Lasix] 40 mg PO DAILY 09/19/18 09/19/18 Insulin Glargine [Lantus] 56 unit SQ HS 09/19/18 09/19/18 Previous Rx's Medication Instructions Recorded Apixaban [Eliquis] 5 mg PO BID #60 tab 07/04/18 Metoprolol Succinate (ER) [Toprol 25 mg PO DAILY #30 tab.er.24h 07/04/18 XL] Allergies Allergy/AdvReac Type Severity Reaction Status Date / Time azithromycin Allergy Rash/Hives Verified 09/19/18 10:56 [From Zithromax Z-Jeanmarie] trimethoprim [From Bactrim] Allergy Rash/Hives Verified 09/19/18 10:56 hydrochlorothiazide AdvReac lost Verified 09/19/18 10:56 balance and fell sulfamethoxazole AdvReac Rash/Hives Verified 09/19/18 10:56 [From Bactrim] Review of Systems ROS Statement: Those systems with pertinent positive or pertinent negative responses have been documented in the HPI. ROS Other: All systems not noted in ROS Statement are negative. Constitutional: Denies: fever, chills Eyes: Denies: eye pain ENT: Denies: ear pain Respiratory: Denies: cough, dyspnea Cardiovascular: Denies: chest pain Endocrine: Reports: fatigue Gastrointestinal: Denies: abdominal pain Genitourinary: Denies: dysuria Musculoskeletal: Denies: back pain Skin: Denies: rash Neurological: Denies: headache, confusion Past Medical History Past Medical History: Coronary Artery Disease (CAD), Cancer, Heart Failure, COPD , CVA/TIA, Diabetes Mellitus, GERD/Reflux, Hyperlipidemia, Hypertension, Renal Disease, Sleep Apnea/CPAP/BIPAP, Thyroid Disorder Additional Past Medical History / Comment(s): 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 BASAL CELL CA. COPD FROM SECOND HAND SMOKE. History of Any Multi-Drug Resistant Organisms: None Reported Past Surgical History: Back Surgery, Bariatric Surgery, Cholecystectomy, Heart Catheterization, Hysterectomy, Tonsillectomy Additional Past Surgical History / Comment(s): back surgery. LAP BAND AND THEN PORT REMOVAL, left carpal tunnel surgery x 2, alejandro cataract and laser surgery Past Anesthesia/Blood Transfusion Reactions: No Reported Reaction Past Psychological History: No Psychological Hx Reported Smoking Status: Never smoker Past Alcohol Use History: None Reported Past Drug Use History: None Reported - Past Family History Sister(s) Family Medical History: Myocardial Infarction (ID) Brother(s) Family Medical History: Cancer Additional Family Medical History / Comment(s): colon General Exam Limitations: no limitations General appearance: alert, in no apparent distress Head exam: Present: atraumatic Eye exam: Present: normal appearance, PERRL, EOMI. Absent: nystagmus ENT exam: Present: normal oropharynx Neck exam: Present: normal inspection Respiratory exam: Present: normal lung sounds bilaterally Cardiovascular Exam: Present: regular rate, normal rhythm Expanded Peripheral pulses: 2+: Radial (R), Radial (L), Posterior Tibialis (R), Posterior Tibialis (L), Dorsalis Pedis (R), Dorsalis Pedis (L) GI/Abdominal exam: Present: soft. Absent: distended, tenderness Extremities exam: Present: normal inspection. Absent: pedal edema, calf tenderness Neurological exam: Present: alert, oriented X3, CN II-XII intact. Absent: motor sensory deficit Expanded Neurological exam: Present: protecting the airway Patient oriented to: Present: person, place, time Speech: Present: fluid speech Cranial nerves: EOM's Intact: Normal, Facial Sensation: Normal Sensory exam: Upper Extremity Light Touch: Normal, Lower Extremity Light Touch: Normal Motor strength exam: RUE: 5, LUE: 5, RLE: 5, LLE: 5 Eye Response: (4) open spontaneously Motor Response: (6) obeys commands Verbal Response: (5) oriented Psychiatric exam: Present: normal affect, normal mood Skin exam: Present: normal color Course Vital Signs 09/19/18 09/19/18 10:24 13:14 Temperature 98.3 F 99.1 F Pulse Rate 105 H 94 Respiratory 18 18 Rate Blood Pressure 133/82 116/88 O2 Sat by Pulse 98 95 Oximetry - Reevaluation(s) Reevaluation #1: 09/19/18 13:41 Patient does meet sepsis criteria diagnosed at 1341. Blood culture and lactic acid have been ordered. IV antibiotics will be ordered. EKG Findings - EKG Comments: EKG Findings:: Normal sinus rhythm 94. MN 142. QRS 102. QT 368. QTC 460. Left axis. Normal QRS. No acute ST change. Medical Decision Making - Medical Decision Making Patient reevaluated. Patient updated on results and plan. Case was discussed in detail with Dr. Patel, covering for Dr. Alvares, who will admit. - Lab Data Result diagrams: 09/19/18 09:54 09/19/18 09:54 Lab Results 09/19/18 09/19/18 09/19/18 Range/Units 09:54 09:54 11:25 WBC 23.1 H (3.8-10.6) k/uL RBC 4.64 (3.80-5.40) m/uL Hgb 13.2 (11.4-16.0) gm/dL Hct 42.8 (34.0-46.0) % MCV 92.1 (80.0-100.0) fL MCH 28.5 (25.0-35.0) pg MCHC 31.0 (31.0-37.0) g/dL RDW 13.8 (11.5-15.5) % Plt Count 294 (150-450) k/uL Sodium 138 (137-145) mmol/L Potassium 4.5 (3.5-5.1) mmol/L Chloride 96 L (98-107) mmol/L Carbon Dioxide 32 H (22-30) mmol/L Anion Gap 10 mmol/L BUN 24 H (7-17) mg/dL Creatinine 1.73 H (0.52-1.04) mg/dL Est GFR (CKD-EPI)AfAm 32 (>60 ml/min/1.73 sqM) Est GFR (CKD-EPI)NonAf 28 (>60 ml/min/1.73 sqM) Glucose 353 H (74-99) mg/dL Uric Acid 5.9 (3.7-7.4) mg/dL Calcium 9.6 (8.4-10.2) mg/dL Phosphorus 4.6 H (2.5-4.5) mg/dL Magnesium 1.7 (1.6-2.3) mg/dL Total Bilirubin 1.2 (0.2-1.3) mg/dL AST 24 (14-36) U/L ALT 37 (9-52) U/L Alkaline Phosphatase 81 (38-126) U/L Total Creatine Kinase 61 (30-135) U/L CK-MB (CK-2) 0.9 (0.0-2.4) ng/mL CK-MB (CK-2) Rel Index 1.5 Troponin I 0.022 (0.000-0.034) ng/mL Total Protein 6.7 (6.3-8.2) g/dL Albumin 3.9 (3.5-5.0) g/dL Globulin 2.8 g/dL Albumin/Globulin Ratio 1.4 TSH 1.940 (0.465-4.680) mIU/L Free T4 1.52 (0.78-2.19) ng/dL Free T3 pg/mL (2.8-5.3) pg/ml Urine Color Urine Appearance (Clear) Urine pH (5.0-8.0) Ur Specific [place] (1.001-1.035) Urine Protein (Negative) Urine Glucose (UA) (Negative) Urine Ketones (Negative) Urine Blood (Negative) Urine Nitrite (Negative) Urine Bilirubin (Negative) Urine Urobilinogen (<2.0) mg/dL Ur Leukocyte Esterase (Negative) Urine RBC (0-5) /hpf Urine WBC (0-5) /hpf Urine WBC Clumps (None) /hpf Ur Squamous Epith Cells (0-4) /hpf Urine Bacteria (None) /hpf 09/19/18 09/19/18 Range/Units 11:26 11:26 WBC (3.8-10.6) k/uL RBC (3.80-5.40) m/uL Hgb (11.4-16.0) gm/dL Hct (34.0-46.0) % MCV (80.0-100.0) fL MCH (25.0-35.0) pg MCHC (31.0-37.0) g/dL RDW (11.5-15.5) % Plt Count (150-450) k/uL Sodium (137-145) mmol/L Potassium (3.5-5.1) mmol/L Chloride (98-107) mmol/L Carbon Dioxide (22-30) mmol/L Anion Gap mmol/L BUN (7-17) mg/dL Creatinine (0.52-1.04) mg/dL Est GFR (CKD-EPI)AfAm (>60 ml/min/1.73 sqM) Est GFR (CKD-EPI)NonAf (>60 ml/min/1.73 sqM) Glucose (74-99) mg/dL Uric Acid (3.7-7.4) mg/dL Calcium (8.4-10.2) mg/dL Phosphorus (2.5-4.5) mg/dL Magnesium (1.6-2.3) mg/dL Total Bilirubin (0.2-1.3) mg/dL AST (14-36) U/L ALT (9-52) U/L Alkaline Phosphatase (38-126) U/L Total Creatine Kinase (30-135) U/L CK-MB (CK-2) (0.0-2.4) ng/mL CK-MB (CK-2) Rel Index Troponin I (0.000-0.034) ng/mL Total Protein (6.3-8.2) g/dL Albumin (3.5-5.0) g/dL Globulin g/dL Albumin/Globulin Ratio TSH (0.465-4.680) mIU/L Free T4 (0.78-2.19) ng/dL Free T3 pg/mL 2.1 L (2.8-5.3) pg/ml Urine Color Yellow Urine Appearance Turbid H (Clear) Urine pH 6.0 (5.0-8.0) Ur Specific [place] 1.015 (1.001-1.035) Urine Protein 3+ H (Negative) Urine Glucose (UA) 1+ H (Negative) Urine Ketones 1+ H (Negative) Urine Blood Moderate H (Negative) Urine Nitrite Negative (Negative) Urine Bilirubin Negative (Negative) Urine Urobilinogen <2.0 (<2.0) mg/dL Ur Leukocyte Esterase Large H (Negative) Urine RBC 28 H (0-5) /hpf Urine WBC >182 H (0-5) /hpf Urine WBC Clumps Many H (None) /hpf Ur Squamous Epith Cells 1 (0-4) /hpf Urine Bacteria Many H (None) /hpf - Radiology Data Radiology results: report reviewed (Computed tomography scan of the brain shows no acute hemorrhage or mass effect. Degenerative and nonspecific white matter changes. Area of low attenuation left parietal lobe.), image reviewed (Chest x- ray shows no acute process.) Critical Care Time Critical Care Time: Yes Total Critical Care Time: 32 Disposition Clinical Impression: UTI (urinary tract infection), Sepsis Disposition: ADMITTED IP TO THIS HOSP Is patient prescribed a controlled substance at d/c from ED?: No Referrals: Melly Alvares MD [Primary Care Provider] - 1-2 days Decision Time: 13:42
[2018-09-19 11:42] LABS: Appearance,Urine Turbid (Clear); Bacteria,Urine Many /hpf; Bilirubin,Urine Negative (Negative); Blood,Urine Moderate (Negative); Color,Urine Yellow; Glucose,Urine (UA) 1+ (Negative); Ketones,Urine 1+ (Negative); Leukocyte Esterase,Urine Large (Negative); Nitrite,Urine Negative (Negative); Protein,Urine 3+ (Negative); RBC,Urine 28 /hpf (0-5); Specific Gravity,Urine 1.015 (1.001-1.035); Squamous Epithelial Cell,Urine 1 /hpf (0-4); Urobilinogen,Urine <2.0 mg/dL (<2.0)
[2018-09-19 11:49] LABS: ALT 37 U/L (9-52); AST 24 U/L (14-36); Albumin 3.9 g/dL (3.5-5.0); Albumin/Globulin Ratio 1.4; Alkaline Phosphatase 81 U/L (38-126); Anion Gap 10 mmol/L; Blood Urea Nitrogen 24 mg/dL (7-17); Calcium 9.6 mg/dL (8.4-10.2); Carbon Dioxide 32 mmol/L (22-30); Chloride 96 mmol/L (98-107); Globulin 2.8 g/dL; Glucose 353 mg/dL (74-99); Magnesium 1.7 mg/dL (1.6-2.3); Phosphorus 4.6 mg/dL (2.5-4.5); Potassium 4.5 mmol/L (3.5-5.1); Sodium 138 mmol/L (137-145); Total Bilirubin 1.2 mg/dL (0.2-1.3); Total Protein 6.7 g/dL (6.3-8.2); Uric Acid 5.9 mg/dL (3.7-7.4)
[2018-09-19 12:05] LABS: T4, Free (Free Thyroxine) 1.52 ng/dL (0.78-2.19)
--- NOTE | 2018-09-19 12:23 | XR ---
EXAMINATION TYPE: XR chest 2V DATE OF EXAM: 09/19/2018 COMPARISON: 07/16/2017 TECHNIQUE: PA and lateral views submitted. HISTORY: Weakness FINDINGS: The lungs are clear and there is no pneumothorax, pleural effusion, or focal pneumonia. Deformity o f the right shoulder. Lucency along the lateral margin of the chest appears to be related to soft tis taylor artifact. Atherosclerotic change aorta. Arthropathy. Degenerative change of the spine. Heart is m ildly enlarged. IMPRESSION: 1. No acute process.
[2018-09-19 12:26] LABS: Creatine Kinase MB 0.9 ng/mL (0.0-2.4); Troponin I 0.022 ng/mL (0.000-0.034)
--- NOTE | 2018-09-19 12:39 | CT ---
EXAMINATION TYPE: CT brain wo con DATE OF EXAM: 09/19/2018 COMPARISON: 07/01/2018 HISTORY: Dizziness and multiple falls. CT DLP: 1099.4 mGycm Automated exposure control for dose reduction was used. FINDINGS: There is mild generalized degenerative change. Low-attenuation the periventricular region is nonspeci fic but most typical remote microvascular ischemia. New sentence atherosclerotic changes are noted. T here is a calcification the basal ganglia and remote lacunar infarction involving the right basal flaquito glia. Changes of chronic sinusitis noted. There is an area of low attenuation within the left parieta l lobe on image #34. IMPRESSION: 1. No acute hemorrhage or mass effect 2. Degenerative and nonspecific white matter changes most typical of remote microvascular ischemia. T here is an area of low attenuation within the left parietal lobe on axial image 34. Acute to subacute subacute ischemia not excluded. Correlate clinically and with MRI as clinically warranted.
[2018-09-19] MEDS ORDERED: cefTRIAXone 2,000 MG in SODIUM CHLORIDE 0.9% 100 ML IVPB STA (13:42)
[2018-09-19] MEDS ORDERED: NALOXONE 0.4 MG/ML 1 ML VIAL IV PRN (13:43)
[2018-09-19] MEDS: SODIUM CHLORIDE 0.9% 1,000 ML IV SCH ×2 (14:32→22:05)
[2018-09-19] MEDS ORDERED: ACETAMINOPHEN TAB 500 MG TAB PO STA (14:41)
--- NOTE | 2018-09-19 15:36 | P.HPIM ---
History of Present Illness H&P Date: 09/19/18 The patient is a 78-year-old female with a past medical history of CAD, A. fib ( on Eliquis), CVA, hyperlipidemia, hypertension, and CKD who presented to the ED for 2 days of not feeling like herself, lethargy, fever, confusion, and multiple falls at home. Patient notes that the past 2 weeks she has been feeling lethargic and though denied any particular weakness for limb, has been falling since she feels off balance. The history was supplemented by a brother- in-law at the bedside who notes that the patient has been "bouncing into fisher" . She otherwise denied dysuria, abdominal pain, urinary frequency, or urgency. She also denied headaches, limb weakness, tingling, numbness, chest pain, shortness of breath, nausea, vomiting, or palpitations. Of note, the patient was previously admitted to the hospital in 06/30/2018 for sepsis secondary to community-acquired pneumonia and UTI with metabolic encephalopathy. In the ED, the patient had a comprehensive workup with WBC count 23.1, BUN 24, creatinine 1.73, UA showing greater than 182 WBCs, large leukoesterase, and many bacteria. EKG showing normal sinus rhythm at [address] Head revealed non-specific white matter changes of remote microvascular ischemia , along with an area of low attenuation within the left parietal lobe, acute to subacute CVA not excluded. Review of Systems Pertinent positives and negatives as discussed in HPI, a complete review of systems was performed and all other systems are negative. Past Medical History Past Medical History: Atrial Fibrillation, Coronary Artery Disease (CAD), Cancer , Heart Failure, COPD, CVA/TIA, Diabetes Mellitus, GERD/Reflux, Hyperlipidemia, Hypertension, Pneumonia, Renal Disease, Sleep Apnea/CPAP/BIPAP, Thyroid Disorder Additional Past Medical History / Comment(s): 2013 CVA d/t htn per pt-no residual, IDDM type II, CRD stage III, pneumonia with sepsis/uti with sepsis, DEBBIE without device use, hypothyroid, past Afib wit RVR, vitamin D deficiency, chronic low back pain. History of Any Multi-Drug Resistant Organisms: None Reported Past Surgical History: Adenoidectomy, Back Surgery, Bariatric Surgery, Cholecystectomy, Heart Catheterization, Hysterectomy, Tonsillectomy Additional Past Surgical History / Comment(s): Cardiac caths , lap band placed/since removed, low back surgery, L carpal tunnel release x2, skin cancer removal, colonoscopies, bilateral cataract removals/lens implants. Past Anesthesia/Blood Transfusion Reactions: No Reported Reaction Past Psychological History: No Psychological Hx Reported Additional Psychological History / Comment(s): Pt resides with Brandon Almaraz. She is independent. Smoking Status: Never smoker Past Alcohol Use History: None Reported Past Drug Use History: None Reported - Past Family History Sister(s) Family Medical History: Myocardial Infarction (PR) Brother(s) Family Medical History: Cancer Additional Family Medical History / Comment(s): colon Mother Family Medical History: Dementia Additional Family Medical History / Comment(s): Mother of dementia at the age of 89yrs. Father Additional Family Medical History / Comment(s): Pt states her father was treated for a sinus infection but really had leukemia and of this at the age of 72 yrs. Medications and Allergies Home Medications Medication Instructions Recorded Confirmed Type Levothyroxine Sodium [Synthroid] 100 mcg PO QAM 05/15/14 09/19/18 History Potassium Chloride [K-Tab ER] 10 meq PO BID 05/15/14 09/19/18 History Losartan Potassium 100 mg PO QAM 06/14/15 09/19/18 History metFORMIN HCL [Glucophage] 1,000 mg PO BID-W/MEALS 06/14/15 09/19/18 History Aspirin 81 mg PO DAILY 05/30/17 09/19/18 History Vitamin E (Dl,Tocopheryl Acet) 400 unit PO DAILY 05/30/17 09/19/18 History [Vitamin E] Atorvastatin [Lipitor] 80 mg PO HS 06/30/18 09/19/18 History Calcium Acetate [PhosLo] 667 mg PO TID 06/30/18 09/19/18 History Cholecalciferol (Vitamin D3) 2,000 unit PO DAILY 06/30/18 09/19/18 History [Vitamin D3] INSULIN LISPRO (humaLOG) [humaLOG] See Protocol SQ AC-TID 06/30/18 09/19/18 History Magnesium Oxide [Magox 400] 400 mg PO TID 06/30/18 09/19/18 History Turmeric/Turmeric Root Extract 1 cap PO DAILY 06/30/18 09/19/18 History [Turmeric 450-50 mg Capsule] Apixaban [Eliquis] 5 mg PO BID #60 tab 07/04/18 09/19/18 Rx Metoprolol Succinate (ER) [Toprol 25 mg PO DAILY #30 tab.er.24h 07/04/18 Rx XL] ALPRAZolam [Xanax] 0.25 - 0.5 mg PO HS PRN 09/19/18 09/19/18 History Furosemide [Lasix] 40 mg PO DAILY 09/19/18 09/19/18 History Insulin Glargine [Lantus] 56 unit SQ HS 09/19/18 09/19/18 History Allergies Allergy/AdvReac Type Severity Reaction Status Date / Time azithromycin Allergy Rash/Hives Verified 09/19/18 10:56 [From Zithromax Z-Jeanmarie] trimethoprim [From Bactrim] Allergy Rash/Hives Verified 09/19/18 10:56 hydrochlorothiazide AdvReac lost Verified 09/19/18 10:56 balance and fell sulfamethoxazole AdvReac Rash/Hives Verified 09/19/18 10:56 [From Bactrim] Physical Exam Vitals: Vital Signs Temp Pulse Resp BP Pulse Ox 09/19/18 14:55 99 09/19/18 14:38 101.6 F H 111 H 20 156/75 92 L 09/19/18 13:14 99.1 F 94 18 116/88 95 09/19/18 10:24 98.3 F 105 H 18 133/82 98 Intake and Output 09/19/18 09/19/18 09/19/18 06:59 14:59 22:59 Other: Weight 108.862 kg General: Lethargic female, [no distress], [appears at stated age], morbidly obese Derm: [no unusual rashes/lesions] [no unusual ecchymoses], [warm], [dry] Head: [atraumatic], [normocephalic], [symmetric] Eyes: [EOMI], [no lid lag], [anicteric sclera], [pupils equal round reactive to light] ENT: [Nose and ears atraumatic], [no thrush], [no pharyngeal erythema] Neck: [No thyromegaly], [no cervical lymphadenopathy], [trachea midline], [ supple] Mouth: [no lip lesion], [mucus membranes moist] Cardiovascular: [S1S2 reg], [no murmur], [positive posterior tibial pulse bilateral], [no edema], [capillary refill less than 2 seconds] Lungs: [CTA bilateral], [no rhonchi, no rales] , [no accessory muscle use] Abdominal: [soft], [ nontender to palpation], [no guarding], [no appreciable organomegaly], [normal bowel sounds] Ext: [no gross muscle atrophy], [muscle strength 5 out of 5 in all 4 extremities grossly], [no contractures] Neuro: [ CN II-XI grossly intact], [light touch intact all 4 extremities], [ finger to nose within normal limits], finger to nose within normal limits, no pronator drift Psych: [Lethargic], [oriented to person and place only], [appropriate affect] Results CBC & Chem 7: 09/19/18 09:54 09/19/18 09:54 Labs: Abnormal Lab Results - Last 24 Hours (Table) 09/19/18 09/19/18 09/19/18 Range/Units 09:54 09:54 11:26 WBC 23.1 H (3.8-10.6) k/uL Neutrophils # 18.5 H (1.3-7.7) k/uL Monocytes # 2.5 H (0-1.0) k/uL Chloride 96 L (98-107) mmol/L Carbon Dioxide 32 H (22-30) mmol/L BUN 24 H (7-17) mg/dL Creatinine 1.73 H (0.52-1.04) mg/dL Glucose 353 H (74-99) mg/dL Plasma Lactic Acid Terry (0.7-2.0) mmol/L Phosphorus 4.6 H (2.5-4.5) mg/dL Free T3 pg/mL 2.1 L (2.8-5.3) pg/ml Urine Appearance (Clear) Urine Protein (Negative) Urine Glucose (UA) (Negative) Urine Ketones (Negative) Urine Blood (Negative) Ur Leukocyte Esterase (Negative) Urine RBC (0-5) /hpf Urine WBC (0-5) /hpf Urine WBC Clumps (None) /hpf Urine Bacteria (None) /hpf 09/19/18 09/19/18 Range/Units 11:26 13:36 WBC (3.8-10.6) k/uL Neutrophils # (1.3-7.7) k/uL Monocytes # (0-1.0) k/uL Chloride (98-107) mmol/L Carbon Dioxide (22-30) mmol/L BUN (7-17) mg/dL Creatinine (0.52-1.04) mg/dL Glucose (74-99) mg/dL Plasma Lactic Acid Terry 3.5 H* (0.7-2.0) mmol/L Phosphorus (2.5-4.5) mg/dL Free T3 pg/mL (2.8-5.3) pg/ml Urine Appearance Turbid H (Clear) Urine Protein 3+ H (Negative) Urine Glucose (UA) 1+ H (Negative) Urine Ketones 1+ H (Negative) Urine Blood Moderate H (Negative) Ur Leukocyte Esterase Large H (Negative) Urine RBC 28 H (0-5) /hpf Urine WBC >182 H (0-5) /hpf Urine WBC Clumps Many H (None) /hpf Urine Bacteria Many H (None) /hpf Thrombosis Risk Factor Assmnt - Choose All That Apply Any of the Below Risk Factors Present?: Yes Each Factor Represents 1 point: Abnormal pulmonary function (COPD), Obesity ( BMI >25), Sepsis (< 1month) Other Risk Factors: Yes Each Risk Factor Represents 2 Points: Malignancy Each Risk Factor Represents 3 Points: Age 75 years or older Other congenital or acquired thrombophilia - If yes, enter type in comment: No Thrombosis Risk Factor Assessment Total Risk Factor Score: 8 Thrombosis Risk Factor Assessment Level: High Risk Assessment and Plan Plan: Severe sepsis secondary to UTI -Previous cultures grew Klebsiella pansensitive -Will place patient on ceftriaxone -IV fluids 100 mL an hour -Repeat blood and urine cultures -Monitor CBC and BMP -Will repeat lactate Altered mental status likely metabolic encephalopathy in setting of severe sepsis -Neuro checks -We'll treat sepsis as outlined above Abnormal CT head, possible acute to subacute CVA, notes compliance with Eliquis -No focal weakness on exam, patient denied previous weakness, numbness, or tingling -Will order MRI brain -Neuro checks CKD -Avoid nephrotoxic agents -Monitor BMP Type 2 diabetes mellitus with hyperglycemia -Lispro insulin sliding scale with fingersticks -Will resume Lantus at 30 units at bedtime (takes 50 units at bedtime) Hypertension -Will hold on to home meds in setting of severe sepsis -Resume was warranted CHF -Will hold Lasix in setting of severe sepsis -Resume was warranted A. fib -Will resume Eliquis Hyperthyroidism -Continue with Synthroid home dose DVT//GI prophylaxis -Eliquis -Protonix The patient is admitted with an anticipated greater than 2 midnight stay for evaluation of UTI. CODE STATUS: Full code Discussed with: Patient Anticipated discharge date: 09/21/[address]: Home A total of 55 minutes was spent on the care of this complex patient more than 50 % of the time was spent in counseling and care coordination.
[2018-09-19] MEDS ORDERED: INSULIN ASPART 100 UNIT/ML 1 ML 10 ML VIAL SQ SCH (17:30)
--- NOTE | 2018-09-19 19:13 | MR ---
EXAMINATION TYPE: MR brain wo con DATE OF EXAM: 09/19/2018 COMPARISON: None HISTORY: Dizziness, weakness, multiple falls, Abn CT Standard multiplanar, multisequence MRI departmental protocol Multiplanar, multisequence images of the . were acquired. Diffusion weighted imaging was performed. FINDINGS: there is cerebral cortical atrophy. On the T2 and FLAIR images there are numerous foci of abnormal in creased signal at the white matter both cerebral hemispheres. These measure up to 1 cm. Total number is more than 20. There is no evidence of a cortical infarct on the diffusion images. The brainstem is intact. The cerebellum appears intact. There is slight thinning of the corpus callosum. Sella turcic a appears normal. I see no bony destructive process. There is mucosal thickening left maxillary sinus. There is mild mu cosal thickening in the ethmoid sinuses. IMPRESSION: Cerebral atrophy. Diffuse white matter changes are somewhat peripheral and consistent with chronic sm all vessel ischemia at the khan-white matter junction of both cerebral hemispheres. I think demyelina ting disease is less likely. No evidence of cortical infarct. Sinusitis.
[2018-09-19 19:29] LABS: Glucose,Whole Blood 353 mg/dL (75-99)
[2018-09-19 20:19] LABS: Glucose,Whole Blood 381 mg/dL (75-99)
[2018-09-19] MEDS ORDERED: INSULIN ASPART 100 UNIT/ML 1 ML 10 ML VIAL SQ ONE (20:44)
[2018-09-19] MEDS ORDERED: INSULIN DETEMIR 100 UNIT/ML 10 ML VIAL SQ SCH (21:00)
[2018-09-19] MEDS: ATORVASTATIN 80 MG TAB PO SCH (22:04)
[2018-09-19] MEDS: APIXABAN 5 MG TAB PO SCH (22:04)
[2018-09-19] MEDS: INSULIN ASPART 100 UNIT/ML 1 ML 10 ML VIAL SQ SCH (22:05)
[2018-09-19] MEDS: ACETAMINOPHEN TAB 325 MG TAB PO PRN (22:11)
[2018-09-20 05:28] LABS: Glucose,Whole Blood 325 mg/dL (75-99)
[2018-09-20] MEDS: LEVOTHYROXINE 100 MCG TAB PO SCH (05:55)
[2018-09-20] MEDS: PANTOPRAZOLE 40 MG TABLET PO SCH (05:55)
[2018-09-20] MEDS: INSULIN ASPART 100 UNIT/ML 1 ML 10 ML VIAL SQ SCH ×6 (05:55→21:40)
[2018-09-20] MEDS: SODIUM CHLORIDE 0.9% 1,000 ML IV SCH ×3 (05:55→21:36)
[2018-09-20 07:26] LABS: HGB 10.5 gm/dL (11.4-16.0); MCH 28.1 pg (25.0-35.0); MCV 90.5 fL (80.0-100.0); Mean Platelet Volume 7.9; Platelet Count 202 k/uL (150-450); RBC 3.75 m/uL (3.80-5.40); WBC 22.5 k/uL (3.8-10.6)
[2018-09-20 07:38] LABS: Calcium 7.9 mg/dL (8.4-10.2); Potassium 4.1 mmol/L (3.5-5.1)
[2018-09-20 07:50] LABS: Hemoglobin A1C 9.6 % (4.0-6.0); Parathyroid Hormone Intact 29.8 pg/mL (14.0-72.0); Vitamin D 25 Hydroxy 18.2 ng/mL (30.0-100.0)
[2018-09-20] MEDS: APIXABAN 5 MG TAB PO SCH ×2 (09:27→21:38)
[2018-09-20] MEDS: ASPIRIN 81 MG PO SCH (09:27)
[2018-09-20] MEDS: METOPROLOL SUCCINATE (ER) 25 MG TAB.ER.24H PO SCH (09:27)
[2018-09-20 11:20] LABS: Glucose,Whole Blood 242 mg/dL (75-99)
[2018-09-20] MEDS ORDERED: DOCUSATE 100 MG CAP PO STA (13:06)
[2018-09-20] MEDS ORDERED: ARTIFICIAL TEARS-HYPROMELLOSE DROPS 15 ML BTL BOTH EYES PRN (13:06)
[2018-09-20 13:52] VITALS: BMI 37.0
--- NOTE | 2018-09-20 14:57 | P.PN ---
Subjective Progress Note Date: 09/20/18 The patient is 78-year-old female with a PMH of CAD, A. fib (on Eliquis), CVA history, hyperlipidemia, hypertension, and C daily who presented to the ED for 2 days of lethargic, fever, confusion, and falls at home. In the ED, the patient was found to have WBC count of 23.1, with UA showing greater than 182 WBCs and large leukocyte esterase with many bacteria. Of note, the patient was previously admitted to the hospital in June 2018 for sepsis secondary to community acquired pneumonia and a UTI with metabolic encephalopathy. The patient had similar symptoms at that time which resolved with the treatment of the infection. Furthermore the patient had a CT head in the ED which revealed nonspecific white matter changes and acute to subacute CVA was not excluded. The patient was admitted to the medicine service for sepsis secondary to UTI. MRI brain was performed and showed cerebral atrophy with diffuse white matter changes with chronic small vessel ischemia. No acute or subacute CVA was noted. Patient was seen and examined at the bedside. She notes feeling much better today though continues to feel somewhat weak and unable to ambulate without assistance. She otherwise denied any further episodes of fever, chills. She also denied chest pain, shortness of breath, abdominal pain, or dysuria. Objective - Vital Signs Vital signs: Vital Signs Temp 98 F 09/20/18 11:58 Pulse 77 09/20/18 11:58 Resp 16 09/20/18 11:58 BP 115/56 09/20/18 11:58 Pulse Ox 98 09/20/18 11:58 Intake & Output 09/19/18 09/20/18 09/20/18 18:59 06:59 18:59 Intake Total 240 240 Output Total 300 Balance 240 -60 Weight 108.862 kg 98 kg 98 kg Intake: Oral 240 240 Output: Urine 300 Other: Voiding Method Bedside Commode Bedside Commode # Voids 1 - Exam General: Non-toxic, in no acute distress, appears stated age, obese HEENT: NC/AT, anicteric sclerae, moist conjunctiva, no lid-lag, PERRLA Cardiovascular: S1/S2 wnl, no murmurs, rubs, or gallops Lungs: Clear to auscultation, normal respiratory effort, no accessory muscle use Abdominal: Soft, non-tender, non-distended, no guarding, rebound, or rigidity, no CVA tenderness Skin: Warm, dry Extremities: No edema or contractures Psychiatric: Alert and oriented to person, place and time, appropriate affect Neuro: CN II-XII grossly intact, Strength 5/5 in all 4 extremities, Speech intact, Sensation to light touch grossly intact throughout - Labs CBC & Chem 7: 09/20/18 06:24 09/20/18 06:24 Labs: Abnormal Lab Results - Last 24 Hours (Table) 09/19/18 09/19/18 09/19/18 Range/Units 09:54 09:54 09:54 WBC 23.1 H (3.8-10.6) k/uL RBC (3.80-5.40) m/uL Hgb (11.4-16.0) gm/dL Neutrophils # 18.5 H (1.3-7.7) k/uL Monocytes # 2.5 H (0-1.0) k/uL Sodium (137-145) mmol/L Chloride 96 L (98-107) mmol/L Carbon Dioxide 32 H (22-30) mmol/L BUN 24 H (7-17) mg/dL Creatinine 1.73 H (0.52-1.04) mg/dL Glucose 353 H (74-99) mg/dL POC Glucose (mg/dL) (75-99) mg/dL Hemoglobin A1c (4.0-6.0) % Calcium (8.4-10.2) mg/dL Phosphorus 4.6 H (2.5-4.5) mg/dL Vitamin D 25-Hydroxy 18.2 L (30.0-100.0) ng/mL Ur Random Microalbumin (0.0-1.9) mg/dL Microalb/Creat Ratio (0-30) mg/g Creat 09/19/18 09/19/18 09/19/18 Range/Units 09:54 09:54 19:27 WBC (3.8-10.6) k/uL RBC (3.80-5.40) m/uL Hgb (11.4-16.0) gm/dL Neutrophils # (1.3-7.7) k/uL Monocytes # (0-1.0) k/uL Sodium (137-145) mmol/L Chloride (98-107) mmol/L Carbon Dioxide (22-30) mmol/L BUN (7-17) mg/dL Creatinine (0.52-1.04) mg/dL Glucose (74-99) mg/dL POC Glucose (mg/dL) 353 H (75-99) mg/dL Hemoglobin A1c 9.6 H (4.0-6.0) % Calcium (8.4-10.2) mg/dL Phosphorus (2.5-4.5) mg/dL Vitamin D 25-Hydroxy (30.0-100.0) ng/mL Ur Random Microalbumin 232.3 H (0.0-1.9) mg/dL Microalb/Creat Ratio 1274 H (0-30) mg/g Creat 09/19/18 09/20/18 09/20/18 Range/Units 20:18 05:27 06:24 WBC 22.5 H (3.8-10.6) k/uL RBC 3.75 L (3.80-5.40) m/uL Hgb 10.5 L (11.4-16.0) gm/dL Neutrophils # (1.3-7.7) k/uL Monocytes # (0-1.0) k/uL Sodium (137-145) mmol/L Chloride (98-107) mmol/L Carbon Dioxide (22-30) mmol/L BUN (7-17) mg/dL Creatinine (0.52-1.04) mg/dL Glucose (74-99) mg/dL POC Glucose (mg/dL) 381 H 325 H (75-99) mg/dL Hemoglobin A1c (4.0-6.0) % Calcium (8.4-10.2) mg/dL Phosphorus (2.5-4.5) mg/dL Vitamin D 25-Hydroxy (30.0-100.0) ng/mL Ur Random Microalbumin (0.0-1.9) mg/dL Microalb/Creat Ratio (0-30) mg/g Creat 09/20/18 09/20/18 Range/Units 06:24 11:19 WBC (3.8-10.6) k/uL RBC (3.80-5.40) m/uL Hgb (11.4-16.0) gm/dL Neutrophils # (1.3-7.7) k/uL Monocytes # (0-1.0) k/uL Sodium 136 L (137-145) mmol/L Chloride (98-107) mmol/L Carbon Dioxide (22-30) mmol/L BUN 30 H (7-17) mg/dL Creatinine 2.11 H (0.52-1.04) mg/dL Glucose 303 H (74-99) mg/dL POC Glucose (mg/dL) 242 H (75-99) mg/dL Hemoglobin A1c (4.0-6.0) % Calcium 7.9 L (8.4-10.2) mg/dL Phosphorus (2.5-4.5) mg/dL Vitamin D 25-Hydroxy (30.0-100.0) ng/mL Ur Random Microalbumin (0.0-1.9) mg/dL Microalb/Creat Ratio (0-30) mg/g Creat Microbiology - Last 24 Hours (Table) 09/19/18 13:36 Blood Culture Gram Stain - Preliminary Blood Blood Culture - Preliminary Gram Neg Bacilli 09/19/18 13:36 Blood Culture - Final Blood 09/19/18 11:26 Urine Culture - Preliminary Urine,Clean Catch Assessment and Plan Plan: Sepsis secondary to UTI -Previous cultures grew pansensitive Klebsiella -Continue with IV ceftriaxone -IV fluids 100 mL an hour -Blood cultures growing gram-negative bacilli -Monitor CBC and BMP Altered mental status likely metabolic encephalopathy in setting of severe sepsis, improved -Neuro checks -We'll treat sepsis as outlined above CKD -Avoid nephrotoxic agents -Monitor BMP Type 2 diabetes mellitus with hyperglycemia -Lispro insulin sliding scale with fingersticks -Will increase Lantus to 45 units at bedtime and start on lispro insulin 8 units with meals. (The patient takes 11 units plus sliding scale with meals at home) Hypertension -Will hold on to home meds in setting of severe sepsis -Resume was warranted CHF -Will hold Lasix in setting of severe sepsis -Resume was warranted A. fib -Will resume Eliquis Hyperthyroidism -Continue with Synthroid home dose Lactic acidosis, resolved DVT//GI prophylaxis -Eliquis -Protonix The patient is admitted with an anticipated greater than 2 midnight stay for evaluation of UTI. CODE STATUS: Full code Discussed with: Patient Anticipated discharge date: 09/22/[address]: Home A total of 55 minutes was spent on the care of this complex patient more than 50 % of the time was spent in counseling and care coordination.
[2018-09-20] MEDS: ACETAMINOPHEN TAB 325 MG TAB PO PRN (16:17)
[2018-09-20 16:30] LABS: Glucose,Whole Blood 131 mg/dL (75-99)
[2018-09-20] MEDS ORDERED: INSULIN DETEMIR 100 UNIT/ML 10 ML VIAL SQ SCH (21:00)
[2018-09-20 21:35] LABS: Glucose,Whole Blood 282 mg/dL (75-99)
[2018-09-20] MEDS: DOCUSATE 100 MG CAP PO SCH (21:38)
[2018-09-20] MEDS: ATORVASTATIN 80 MG TAB PO SCH (21:38)
[2018-09-21] MEDS: SODIUM CHLORIDE 0.9% 1,000 ML IV SCH ×2 (05:22→08:49)
[2018-09-21 06:34] LABS: Glucose,Whole Blood 200 mg/dL (75-99)
[2018-09-21] MEDS: LEVOTHYROXINE 100 MCG TAB PO SCH (06:38)
[2018-09-21] MEDS: PANTOPRAZOLE 40 MG TABLET PO SCH (06:38)
[2018-09-21] MEDS: INSULIN ASPART 100 UNIT/ML 1 ML 10 ML VIAL SQ SCH ×7 (06:54→20:49)
[2018-09-21 08:22] LABS: HCT 33.9 % (34.0-46.0); HGB 10.9 gm/dL (11.4-16.0); MCH 28.9 pg (25.0-35.0); MCHC 32.1 g/dL (31.0-37.0); MCV 90.2 fL (80.0-100.0); Mean Platelet Volume 7.4; Platelet Count 232 k/uL (150-450); RBC 3.76 m/uL (3.80-5.40); RDW 13.5 % (11.5-15.5); WBC 17.9 k/uL (3.8-10.6)
[2018-09-21 08:35] LABS: Calcium 7.7 mg/dL (8.4-10.2); Potassium 3.8 mmol/L (3.5-5.1)
[2018-09-21] MEDS: METOPROLOL SUCCINATE (ER) 25 MG TAB.ER.24H PO SCH ×2 (08:48→20:50)
[2018-09-21] MEDS: DOCUSATE 100 MG CAP PO SCH ×2 (08:48→20:50)
[2018-09-21] MEDS: ASPIRIN 81 MG PO SCH (08:48)
[2018-09-21] MEDS: APIXABAN 5 MG TAB PO SCH (08:48)
[2018-09-21 11:57] LABS: Glucose,Whole Blood 202 mg/dL (75-99)
--- NOTE | 2018-09-21 14:09 | P.PN ---
Subjective Progress Note Date: 09/21/18 The patient is 78-year-old female with a PMH of CAD, A. fib (on Eliquis), CVA history, hyperlipidemia, hypertension, and C daily who presented to the ED for 2 days of lethargic, fever, confusion, and falls at home. In the ED, the patient was found to have WBC count of 23.1, with UA showing greater than 182 WBCs and large leukocyte esterase with many bacteria. Of note, the patient was previously admitted to the hospital in June 2018 for sepsis secondary to community acquired pneumonia and a UTI with metabolic encephalopathy. The patient had similar symptoms at that time which resolved with the treatment of the infection. Furthermore the patient had a CT head in the ED which revealed nonspecific white matter changes and acute to subacute CVA was not excluded. The patient was admitted to the medicine service for sepsis secondary to UTI. MRI brain was performed and showed cerebral atrophy with diffuse white matter changes with chronic small vessel ischemia. No acute or subacute CVA was noted. Patient was seen and examined at the bedside. She was continued improvement in her symptoms will feel that she is still not back at her baseline. She denied fever, chills, chest pain, shortness of breath, nausea, or vomiting. Objective - Vital Signs Vital signs: Vital Signs Temp 98.1 F 09/21/18 12:00 Pulse 96 09/21/18 12:00 Resp 18 09/21/18 12:00 BP 133/68 09/21/18 12:00 Pulse Ox 96 09/21/18 12:00 Intake & Output 09/20/18 09/21/18 09/21/18 18:59 06:59 18:59 Intake Total 1490 840 230 Output Total 600 450 800 Balance 890 390 -570 Weight 98 kg 97.5 kg Intake: IV 1250 600 Sodium Chloride 0.9% 1, 1200 600 000 ml @ 100 mls/hr IV . Q10H [facility] Rx#:[id number] cefTRIAXone 1,000 mg In 50 Sodium Chloride 0.9% 50 ml @ 100 mls/hr IVPB Q12HR [facility] Rx#:[id number] Oral 240 240 230 Output: Urine 600 450 800 Other: Voiding Method Bedside Commode Bedside Commode Bedside Commode # Voids 1 - Exam General: Non-toxic, in no acute distress, appears stated age, obese HEENT: NC/AT, anicteric sclerae, moist conjunctiva, no lid-lag, PERRLA Cardiovascular: S1/S2 wnl, no murmurs, rubs, or gallops Lungs: Clear to auscultation, normal respiratory effort, no accessory muscle use Abdominal: Soft, non-tender, non-distended, no guarding, rebound, or rigidity, no CVA tenderness Skin: Warm, dry Extremities: No edema or contractures Psychiatric: Alert and oriented to person, place and time, appropriate affect Neuro: CN II-XII grossly intact, Strength 5/5 in all 4 extremities, Speech intact, Sensation to light touch grossly intact throughout - Labs CBC & Chem 7: 09/21/18 06:37 09/21/18 06:37 Labs: Abnormal Lab Results - Last 24 Hours (Table) 09/20/18 09/20/18 09/21/18 Range/Units 16:28 21:11 06:32 WBC (3.8-10.6) k/uL RBC (3.80-5.40) m/uL Hgb (11.4-16.0) gm/dL Hct (34.0-46.0) % BUN (7-17) mg/dL Creatinine (0.52-1.04) mg/dL Glucose (74-99) mg/dL POC Glucose (mg/dL) 131 H 282 H 200 H (75-99) mg/dL Calcium (8.4-10.2) mg/dL 09/21/18 09/21/18 09/21/18 Range/Units 06:37 06:37 11:42 WBC 17.9 H (3.8-10.6) k/uL RBC 3.76 L (3.80-5.40) m/uL Hgb 10.9 L (11.4-16.0) gm/dL Hct 33.9 L (34.0-46.0) % BUN 33 H (7-17) mg/dL Creatinine 1.77 H (0.52-1.04) mg/dL Glucose 177 H (74-99) mg/dL POC Glucose (mg/dL) 202 H (75-99) mg/dL Calcium 7.7 L (8.4-10.2) mg/dL Microbiology - Last 24 Hours (Table) 09/19/18 13:36 Blood Culture Gram Stain - Final Blood Blood Culture - Final Escherichia coli 09/19/18 11:26 Urine Culture - Final Urine,Clean Catch Escherichia coli Assessment and Plan Plan: UTI, sepsis resolved -Blood and urine cultures growing pansensitive E. coli -C/w Ceftriaxone for now -IV fluids 50 mL an hour Altered mental status likely metabolic encephalopathy in setting of severe sepsis, resolved Afib, w/ RVR -C/w home med Toprol -Cardiology consult -C/w Eliquis CKD -Avoid nephrotoxic agents -Monitor BMP Type 2 diabetes mellitus with hyperglycemia -Lispro insulin sliding scale with fingersticks -Will increase Lantus to 56 units at bedtime and c/w lispro insulin 8 units with meals Hypertension -Resume home meds: Losartan 100 mg qd CHF -Will hold lasix for now -Resume was warranted Hyperthyroidism -Continue with Synthroid home dose Lactic acidosis, resolved DVT//GI prophylaxis -Eliquis -Protonix The patient is admitted with an anticipated greater than 2 midnight stay for evaluation of UTI. CODE STATUS: Full code Discussed with: Patient Anticipated discharge date: 09/22/[address]: Home A total of 55 minutes was spent on the care of this complex patient more than 50 % of the time was spent in counseling and care coordination.
[2018-09-21] MEDS: LOSARTAN 50 MG TAB PO SCH (15:29)
[2018-09-21] MEDS: ACETAMINOPHEN TAB 325 MG TAB PO PRN (15:33)
[2018-09-21 17:21] LABS: Glucose,Whole Blood 261 mg/dL (75-99)
--- NOTE | 2018-09-21 19:04 | CONS ---
CONSULTATION Mrs. Pool is a 78-year-old female with known history of persistent chronic atrial fibrillation, history of mild coronary artery disease, prior history of stroke, hypertension, hyperlipidemia, who presented with symptoms of progressive weakness, confusion and was diagnosed with urinary tract infection. Cardiology consultation was requested because of the atrial fibrillation. The patient was in the hospital in June and underwent an echocardiogram with Doppler at that time that revealed a preserved systolic function with mild valvular disease. Cardiac-reich, she has done well. She has no significant chest discomfort or dyspnea. No PND, orthopnea, or peripheral edema. Her coronary risk factors are positive for diabetes, hypertension, and hyperlipidemia. MEDICATION: Her medications at home include Eliquis 5 mg twice a day, aspirin 81 mg daily, Lipitor 80 mg daily, insulin, levothyroxine, Lasix 40 mg daily, losartan 100 mg daily, metoprolol succinate 25 mg daily, metformin and insulin. REVIEW OF SYSTEMS: Respiratory system: She has no recent wheezing or cough. GI system: No recent GI bleed. No peptic ulcer disease. system: She had urinary tract infection. Nervous system: No history of seizures, prior history of stroke. PHYSICAL EXAMINATION: She is a 78-year-old female, alert, oriented, no apparent distress. Blood pressure 133/60 with a heart rate in the 80s. HEAD: Normocephalic. EYES sclerae anicteric. Neck: Good upstroke. No bruit. No jugular venous distention. LUNGS: Clear to auscultation. HEART: Irregularly irregular S1, S2. No S3 with systolic ejection murmur heard at the base. No diastolic murmur. No rub. ABDOMEN: Soft, nontender. Positive bowel sounds. No megaly. EXTREMITIES: No edema. LAB DATA: BUN and creatinine 33 and 1.77. Potassium is 3.8. Hemoglobin of 10.9. EKG revealed sinus mechanism. On the telemetry, she had episode of atrial fibrillation. Chest x-ray revealed no acute changes. IMPRESSION: 1. Urinary tract infection with change in mental status, improving. 2. Paroxysmal atrial fibrillation, anticoagulated with episode of rapid ventricular response. 3. History of mild coronary artery disease. 4. 5. Renal failure. RECOMMENDATION: From the cardiac standpoint, I will continue on the Eliquis. I will stop her aspirin. The patient has no evidence of acute ischemia. I will increase the dose of metoprolol succinate to twice a day. Continue the rest of the medical regimen. We will follow her rhythm and depending on her progress, further recommendations will be made. Thank you for this consult. We will follow with you. CRISTAL / SUKHDEEP: [id number] /
[2018-09-21 20:09] LABS: Glucose,Whole Blood 348 mg/dL (75-99)
[2018-09-21] MEDS: INSULIN DETEMIR 100 UNIT/ML 10 ML VIAL SQ SCH (20:49)
[2018-09-21] MEDS: ATORVASTATIN 80 MG TAB PO SCH (20:50)
[2018-09-21] MEDS: APIXABAN 2.5 MG TABLET PO SCH (20:50)
[2018-09-22] MEDS: ACETAMINOPHEN TAB 325 MG TAB PO PRN ×4 (00:05→19:52)
[2018-09-22 00:17] LABS: Glucose,Whole Blood 313 mg/dL (75-99)
[2018-09-22] MEDS: SODIUM CHLORIDE 0.9% 1,000 ML IV SCH (00:37)
[2018-09-22 06:06] LABS: Glucose,Whole Blood 100 mg/dL (75-99)
[2018-09-22] MEDS: LEVOTHYROXINE 100 MCG TAB PO SCH (06:15)
[2018-09-22] MEDS: PANTOPRAZOLE 40 MG TABLET PO SCH (06:15)
[2018-09-22] MEDS: INSULIN ASPART 100 UNIT/ML 1 ML 10 ML VIAL SQ SCH ×7 (06:15→21:58)
[2018-09-22 07:12] LABS: HCT 30.8 % (34.0-46.0); HGB 10.1 gm/dL (11.4-16.0); MCH 29.3 pg (25.0-35.0); MCHC 32.7 g/dL (31.0-37.0); MCV 89.7 fL (80.0-100.0); Mean Platelet Volume 6.8; Platelet Count 239 k/uL (150-450); RBC 3.43 m/uL (3.80-5.40); RDW 13.7 % (11.5-15.5); WBC 13.8 k/uL (3.8-10.6)
[2018-09-22 07:29] LABS: Calcium 7.6 mg/dL (8.4-10.2); Potassium 3.8 mmol/L (3.5-5.1)
[2018-09-22] MEDS: LOSARTAN 50 MG TAB PO SCH (09:08)
[2018-09-22] MEDS: APIXABAN 2.5 MG TABLET PO SCH ×2 (09:08→21:57)
[2018-09-22] MEDS: METOPROLOL SUCCINATE (ER) 25 MG TAB.ER.24H PO SCH ×2 (09:08→21:57)
[2018-09-22] MEDS: DOCUSATE 100 MG CAP PO SCH ×2 (09:08→21:57)
[2018-09-22 12:19] LABS: Glucose,Whole Blood 190 mg/dL (75-99)
[2018-09-22] MEDS ORDERED: FUROSEMIDE 10 MG/ML 4 ML VIAL IV STA (13:28)
--- NOTE | 2018-09-22 13:52 | XR ---
EXAMINATION TYPE: XR chest 1V portable DATE OF EXAM: 09/22/2018 HISTORY: Shortness of breath. COMPARISON: 09/01/2018 TECHNIQUE: Single view of the chest is submitted. FINDINGS: Demonstrated are scattered senescent parenchymal change. Patchy right perihilar and right basilar infiltrate may reflect developing pneumonia. Follow-up until resolution advised. The heart is stable. Hilar and mediastinal structures are within normal limits. Degenerative changes are seen of the dorsal spine. IMPRESSION: 1. Patchy right perihilar and right basilar infiltrate may reflect developing pneumonia. Follow-up u ntil resolution advised.
--- NOTE | 2018-09-22 14:38 | P.PN ---
Subjective Progress Note Date: 09/22/18 A pleasant 78-year-old female with known history of chronic atrial fibrillation , mild CAD, CVA, hypertension, hyperlipidemia. Presented with symptoms of progressive weakness, confusion and was diagnosed with urinary tract infection. We were asked to the patient in consultation because of atrial fibrillation. Most recent echocardiogram in June showed a preserved LV systolic function with mild valvular disease. She's had no chest discomfort, dyspnea, PND, orthopnea or peripheral edema. She is currently on Eliquis. Metoprolol succinate 25 mg by mouth twice a day. Heart rate has been reasonably well controlled in the 70s to 90s. Objective - Vital Signs Vital signs: Vital Signs Temp 98.9 F 09/22/18 04:00 Pulse 73 09/22/18 04:00 Resp 19 09/22/18 04:00 BP 132/75 09/22/18 04:00 Pulse Ox 92 L 09/22/18 04:00 Intake & Output 09/21/18 09/22/18 09/22/18 18:59 06:59 18:59 Intake Total 1890 450 230 Output Total 1850 300 900 Balance 40 150 -670 Weight 98.1 kg Intake: IV 600 450 Sodium Chloride 0.9% 1, 500 450 000 ml @ 50 mls/hr IV . Q20H [facility] Rx#:[id number] cefTRIAXone 1,000 mg In 100 Sodium Chloride 0.9% 50 ml @ 100 mls/hr IVPB Q12HR [facility] Rx#:[id number] Oral 1290 230 Output: Urine 1850 300 900 Other: Voiding Method Bedside Commode Bedside Commode # Voids 1 1 1 - Exam PHYSICAL EXAMINATION: HEENT: Head is atraumatic, normocephalic. Pupils equal, round. Neck is supple. There is no elevated jugular venous pressure. HEART EXAMINATION: Heart sounds irregularly irregular, S1 and S2 with a systolic murmur. CHEST EXAMINATION: Lungs are clear to auscultation and precussion. No chest wall tenderness is noted on palpation or with deep breathing. ABDOMEN: Soft, nontender. Bowel sounds are heard. No organomegaly noted. EXTREMITIES: 2+ peripheral pulses with no evidence of peripheral edema and no calf tenderness noted. NEUROLOGIC patient is awake, alert and oriented x3. . - Labs CBC & Chem 7: 09/22/18 06:33 09/22/18 06:33 Labs: Abnormal Lab Results - Last 24 Hours (Table) 09/21/18 09/21/18 09/22/18 Range/Units 16:53 20:08 00:05 WBC (3.8-10.6) k/uL RBC (3.80-5.40) m/uL Hgb (11.4-16.0) gm/dL Hct (34.0-46.0) % Chloride (98-107) mmol/L BUN (7-17) mg/dL Creatinine (0.52-1.04) mg/dL POC Glucose (mg/dL) 261 H 348 H 313 H (75-99) mg/dL Calcium (8.4-10.2) mg/dL 09/22/18 09/22/18 09/22/18 Range/Units 06:04 06:33 06:33 WBC 13.8 H (3.8-10.6) k/uL RBC 3.43 L (3.80-5.40) m/uL Hgb 10.1 L (11.4-16.0) gm/dL Hct 30.8 L (34.0-46.0) % Chloride 108 H (98-107) mmol/L BUN 29 H (7-17) mg/dL Creatinine 1.67 H (0.52-1.04) mg/dL POC Glucose (mg/dL) 100 H (75-99) mg/dL Calcium 7.6 L (8.4-10.2) mg/dL 09/22/18 Range/Units 11:56 WBC (3.8-10.6) k/uL RBC (3.80-5.40) m/uL Hgb (11.4-16.0) gm/dL Hct (34.0-46.0) % Chloride (98-107) mmol/L BUN (7-17) mg/dL Creatinine (0.52-1.04) mg/dL POC Glucose (mg/dL) 190 H (75-99) mg/dL Calcium (8.4-10.2) mg/dL Microbiology - Last 24 Hours (Table) 09/19/18 13:36 Blood Culture Gram Stain - Final Blood Blood Culture - Final Escherichia coli Assessment and Plan Assessment: #1 Change in mental status, secondary to urinary tract infection, improving #2 paroxysmal atrial fibrillation, anticoagulated, episodes of RVR with reasonably well-controlled ventricular rate at this time #3 history of mild CAD #4 hypertension #5 renal failure Plan: From cardiology's perspective, continue Eliquis and metoprolol as well as the rest of the medical regimen. We'll continue to follow the patient and provide further recommendations accordingly. [employer] note has been reviewed, I agree with a documented findings and plan of care. Patient was seen and examined.
--- NOTE | 2018-09-22 14:39 | P.PN ---
Subjective Progress Note Date: 09/22/18 The patient is 78-year-old female with a PMH of CAD, A. fib (on Eliquis), CVA history, hyperlipidemia, hypertension, and C daily who presented to the ED for 2 days of lethargic, fever, confusion, and falls at home. In the ED, the patient was found to have WBC count of 23.1, with UA showing greater than 182 WBCs and large leukocyte esterase with many bacteria. Of note, the patient was previously admitted to the hospital in June 2018 for sepsis secondary to community acquired pneumonia and a UTI with metabolic encephalopathy. The patient had similar symptoms at that time which resolved with the treatment of the infection. Furthermore the patient had a CT head in the ED which revealed nonspecific white matter changes and acute to subacute CVA was not excluded. The patient was admitted to the medicine service for sepsis secondary to UTI. MRI brain was performed and showed cerebral atrophy with diffuse white matter changes with chronic small vessel ischemia. No acute or subacute CVA was noted. The patient was seen and examined at the bedside on 09/22/2018 @1200. She notes that her weakness has improved significantly and she was able to shower herself earlier today. She denied fever, chills, nausea, vomiting, abdominal pain, dysuria, chest pain, or shortness of breath. The patient had an episode of RVR yesterday and cardiology was consulted. They recommended discontinuing her aspirin and her metoprolol dose was doubled. The patient has since reverted back to sinus. Informed by the RN at 1400 that the patient endorsed mild shortness of breath. Chest x-ray obtained, showing patchy right perihilar and right basilar infiltrate, suspicious for developing pneumonia. Objective - Vital Signs Vital signs: Vital Signs Temp 98.9 F 09/22/18 04:00 Pulse 73 09/22/18 04:00 Resp 19 09/22/18 04:00 BP 132/75 09/22/18 04:00 Pulse Ox 92 L 09/22/18 04:00 Intake & Output 09/21/18 09/22/18 09/22/18 18:59 06:59 18:59 Intake Total 1890 450 230 Output Total 1850 300 900 Balance 40 150 -670 Weight 98.1 kg Intake: IV 600 450 Sodium Chloride 0.9% 1, 500 450 000 ml @ 50 mls/hr IV . Q20H [facility] Rx#:[id number] cefTRIAXone 1,000 mg In 100 Sodium Chloride 0.9% 50 ml @ 100 mls/hr IVPB Q12HR [facility] Rx#:[id number] Oral 1290 230 Output: Urine 1850 300 900 Other: Voiding Method Bedside Commode Bedside Commode # Voids 1 1 1 - Exam General: Non-toxic, in no acute distress, appears stated age, obese HEENT: NC/AT, anicteric sclerae, moist conjunctiva, no lid-lag, PERRLA Cardiovascular: S1/S2 wnl, no murmur, rubs, or gallops Lungs: Mild bibasilar Rales, normal respiratory effort, no accessory muscle use Abdominal: Soft, non-tender, non-distended, no guarding, rebound, or rigidity, no CVA tenderness Skin: Warm, dry Extremities: No edema or contractures Psychiatric: Alert and oriented to person, place and time, appropriate affect Neuro: CN II-XII grossly intact, Strength 5/5 in all 4 extremities, Speech intact, Sensation to light touch grossly intact throughout - Labs CBC & Chem 7: 09/22/18 06:33 09/22/18 06:33 Labs: Abnormal Lab Results - Last 24 Hours (Table) 09/21/18 09/21/18 09/22/18 Range/Units 16:53 20:08 00:05 WBC (3.8-10.6) k/uL RBC (3.80-5.40) m/uL Hgb (11.4-16.0) gm/dL Hct (34.0-46.0) % Chloride (98-107) mmol/L BUN (7-17) mg/dL Creatinine (0.52-1.04) mg/dL POC Glucose (mg/dL) 261 H 348 H 313 H (75-99) mg/dL Calcium (8.4-10.2) mg/dL 09/22/18 09/22/18 09/22/18 Range/Units 06:04 06:33 06:33 WBC 13.8 H (3.8-10.6) k/uL RBC 3.43 L (3.80-5.40) m/uL Hgb 10.1 L (11.4-16.0) gm/dL Hct 30.8 L (34.0-46.0) % Chloride 108 H (98-107) mmol/L BUN 29 H (7-17) mg/dL Creatinine 1.67 H (0.52-1.04) mg/dL POC Glucose (mg/dL) 100 H (75-99) mg/dL Calcium 7.6 L (8.4-10.2) mg/dL 09/22/18 Range/Units 11:56 WBC (3.8-10.6) k/uL RBC (3.80-5.40) m/uL Hgb (11.4-16.0) gm/dL Hct (34.0-46.0) % Chloride (98-107) mmol/L BUN (7-17) mg/dL Creatinine (0.52-1.04) mg/dL POC Glucose (mg/dL) 190 H (75-99) mg/dL Calcium (8.4-10.2) mg/dL Microbiology - Last 24 Hours (Table) 09/19/18 13:36 Blood Culture Gram Stain - Final Blood Blood Culture - Final Escherichia coli 09/19/18 11:26 Urine Culture - Final Urine,Clean Catch Escherichia coli Assessment and Plan Plan: UTI, sepsis resolved -Blood and urine cultures growing pansensitive E. coli -C/w Ceftriaxone for now -Discontinue IV fluids Altered mental status likely metabolic encephalopathy in setting of severe sepsis, resolved Shortness of breath, patchy infiltrates, suspicious for pneumonia vs possible fluid overload -Will check Procalcitonin levels -Give Lasix 40 mg IVP stat dose and resume home dose 40 mg po qd -Repeat CXR in evening Afib, w/ RVR -Toprol dose increased -Cardiology recommendations appreciated -C/w Eliquis CKD -Avoid nephrotoxic agents -Monitor BMP Type 2 diabetes mellitus with hyperglycemia -Lispro insulin sliding scale with fingersticks -Resume Lantus 56 units at bedtime and c/w lispro insulin 8 units with meals Hypertension -Resume home meds: Losartan 100 mg qd CHF -Will hold lasix for now -Resume was warranted Hyperthyroidism -Continue with Synthroid home dose Lactic acidosis, resolved DVT//GI prophylaxis -Eliquis -Protonix The patient is admitted with an anticipated greater than 2 midnight stay for evaluation of UTI. CODE STATUS: Full code Discussed with: Patient Anticipated discharge date: 09/24/[address]: Home A total of 55 minutes was spent on the care of this complex patient more than 50 % of the time was spent in counseling and care coordination.
[2018-09-22 16:59] LABS: Glucose,Whole Blood 235 mg/dL (75-99)
[2018-09-22 20:52] LABS: Glucose,Whole Blood 243 mg/dL (75-99)
[2018-09-22] MEDS: ATORVASTATIN 80 MG TAB PO SCH (21:57)
[2018-09-22] MEDS: INSULIN DETEMIR 100 UNIT/ML 10 ML VIAL SQ SCH (21:57)
[2018-09-23] MEDS: PANTOPRAZOLE 40 MG TABLET PO SCH (05:29)
[2018-09-23] MEDS: LEVOTHYROXINE 100 MCG TAB PO SCH (05:29)
[2018-09-23 05:59] LABS: Glucose,Whole Blood 108 mg/dL (75-99)
[2018-09-23 06:08] LABS: HCT 33.6 % (34.0-46.0); HGB 10.6 gm/dL (11.4-16.0); MCH 28.4 pg (25.0-35.0); MCHC 31.6 g/dL (31.0-37.0); MCV 89.9 fL (80.0-100.0); Mean Platelet Volume 6.9; Platelet Count 310 k/uL (150-450); RBC 3.74 m/uL (3.80-5.40); RDW 13.5 % (11.5-15.5); WBC 13.9 k/uL (3.8-10.6)
[2018-09-23] MEDS: INSULIN ASPART 100 UNIT/ML 1 ML 10 ML VIAL SQ SCH ×7 (06:18→20:44)
[2018-09-23 06:19] LABS: Calcium 8.3 mg/dL (8.4-10.2); Potassium 3.7 mmol/L (3.5-5.1)
[2018-09-23] MEDS: ACETAMINOPHEN TAB 325 MG TAB PO PRN (06:30)
[2018-09-23] MEDS: DOCUSATE 100 MG CAP PO SCH ×2 (08:28→20:43)
[2018-09-23] MEDS: FUROSEMIDE 40 MG TAB PO SCH (08:29)
[2018-09-23] MEDS: METOPROLOL SUCCINATE (ER) 25 MG TAB.ER.24H PO SCH ×2 (08:29→20:43)
[2018-09-23] MEDS: LOSARTAN 50 MG TAB PO SCH (08:29)
[2018-09-23] MEDS: APIXABAN 2.5 MG TABLET PO SCH ×2 (08:29→20:44)
--- NOTE | 2018-09-23 09:23 | XR ---
EXAMINATION TYPE: XR chest 1V portable DATE OF EXAM: 09/23/2018 COMPARISON: 09/22/2018 HISTORY: Shortness of breath TECHNIQUE: Single frontal view of the chest is obtained. FINDINGS: There is patchy perihilar infiltrate bilaterally greater on the right. No definite pneumot horax or pleural effusion. 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 Atheroscleroti c change aorta. IMPRESSION: Right perihilar and left lower lobe patchy infiltrate. Findings stable. Pneumonia favore d over CHF correlate clinically.
[2018-09-23 11:27] LABS: Glucose,Whole Blood 203 mg/dL (75-99)
[2018-09-23] MEDS: DOXYCYCLINE 100 MG CAP PO SCH ×2 (11:51→20:43)
--- NOTE | 2018-09-23 12:43 | P.PN ---
Subjective Progress Note Date: 09/23/18 This is a pleasant 78-year-old female with known history of chronic atrial fibrillation, mild CAD, CVA, hypertension, hyperlipidemia. Presented with symptoms of progressive weakness, confusion and was diagnosed with urinary tract infection. We were asked to see the patient in consultation because of atrial fibrillation. Most recent echocardiogram in June showed a preserved LV systolic function with mild valvular disease. She's had no chest discomfort , dyspnea, PND, orthopnea or peripheral edema. She is currently on Eliquis. I pressure this morning 140/70 with a heart rate in the 70s, 90% on room air. White blood cell count 13.9, hemoglobin 10.6, platelet count 310. Sodium 142, potassium 3.7, BUN 24 and creatinine 1.4. Objective - Vital Signs Vital signs: Vital Signs Temp 98.1 F 09/23/18 11:32 Pulse 74 09/23/18 11:32 Resp 20 09/23/18 11:32 BP 166/89 09/23/18 11:32 Pulse Ox 96 09/23/18 11:32 Intake & Output 09/22/18 09/23/18 09/23/18 18:59 06:59 18:59 Intake Total 1460 340 480 Output Total 900 Balance 560 340 480 Weight 97.7 kg Intake: IV 350 100 Sodium Chloride 0.9% 1, 350 100 000 ml @ 50 mls/hr IV . Q20H [facility] Rx#:[id number] Oral 1110 240 480 Output: Urine 900 Other: Voiding Method Bedside Commode Bedside Commode Bedside Commode # Voids 1 1 - Exam PHYSICAL EXAMINATION: HEENT: Head is atraumatic, normocephalic. Pupils equal, round. Neck is supple. There is no elevated jugular venous pressure. HEART EXAMINATION: Heart sounds irregularly irregular, S1 and S2 with a systolic murmur. CHEST EXAMINATION: Lungs are clear to auscultation and precussion. No chest wall tenderness is noted on palpation or with deep breathing. ABDOMEN: Soft, nontender. Bowel sounds are heard. No organomegaly noted. EXTREMITIES: 2+ peripheral pulses with no evidence of peripheral edema and no calf tenderness noted. NEUROLOGIC patient is awake, alert and oriented x3. - Labs CBC & Chem 7: 09/23/18 05:26 09/23/18 05:26 Labs: Abnormal Lab Results - Last 24 Hours (Table) 09/22/18 09/22/18 09/22/18 Range/Units 14:41 16:46 20:47 WBC (3.8-10.6) k/uL RBC (3.80-5.40) m/uL Hgb (11.4-16.0) gm/dL Hct (34.0-46.0) % Chloride (98-107) mmol/L BUN (7-17) mg/dL Creatinine (0.52-1.04) mg/dL POC Glucose (mg/dL) 235 H 243 H (75-99) mg/dL Calcium (8.4-10.2) mg/dL Procalcitonin 2.13 H (0.02-0.09) ng/mL 09/23/18 09/23/18 09/23/18 Range/Units 05:26 05:26 05:55 WBC 13.9 H (3.8-10.6) k/uL RBC 3.74 L (3.80-5.40) m/uL Hgb 10.6 L (11.4-16.0) gm/dL Hct 33.6 L (34.0-46.0) % Chloride 108 H (98-107) mmol/L BUN 24 H (7-17) mg/dL Creatinine 1.49 H (0.52-1.04) mg/dL POC Glucose (mg/dL) 108 H (75-99) mg/dL Calcium 8.3 L (8.4-10.2) mg/dL Procalcitonin (0.02-0.09) ng/mL 09/23/18 Range/Units 11:25 WBC (3.8-10.6) k/uL RBC (3.80-5.40) m/uL Hgb (11.4-16.0) gm/dL Hct (34.0-46.0) % Chloride (98-107) mmol/L BUN (7-17) mg/dL Creatinine (0.52-1.04) mg/dL POC Glucose (mg/dL) 203 H (75-99) mg/dL Calcium (8.4-10.2) mg/dL Procalcitonin (0.02-0.09) ng/mL Assessment and Plan Plan: Assessment: #1 Change in mental status, secondary to urinary tract infection, improving #2 paroxysmal atrial fibrillation, anticoagulated, episodes of RVR with reasonably well-controlled ventricular rate at this time #3 history of mild CAD #4 hypertension #5 renal failure Plan From cardiology's perspective, we'll recommend to continue the patient on her current anticoagulation with Eliquis, as well as the rest of her medications. DNP note has been reviewed, I agree with a documented findings and plan of care. Patient was seen and examined.
[2018-09-23 16:27] LABS: Glucose,Whole Blood 288 mg/dL (75-99)
--- NOTE | 2018-09-23 16:41 | P.PN ---
Subjective Progress Note Date: 09/23/18 (delayed charting seen at 0930) Principal diagnosis: fever and confusion Patient is 78-year-old female with past medical history of coronary artery disease, A. fib on eloquent, prior urinary tract infections, stroke, dyslipidemia, chronic kidney disease, and hypertension as well as multiple other comorbid conditions who presented to the emergency department for 2 days of fever, confusion, and lethargy. In the ER she underwent an extensive evaluation. His son have an elevated white blood cell count 23.1, elevated blood sugars of 381, and urinalysis consistent with urinary tract infection. CT of the head showed nonspecific white matter changes and acute to subacute CVA She was started on IV fluids and antibiotics was admitted for further monitoring and care. She was maintained on Rocephin and she ultimately grew out E. coli in her urine and one of 2 blood cultures. She underwent an MRI of the brain which shows cerebral atrophy with chronic small vessel ischemic changes but no acute or subacute CVA. On 09/20 she had an episode of A. fib with RVR cardiology was consulted. He recommended discontinuing her aspirin and increasing her metoprolol dose. She then reverted back to sinus rhythm. She developed mild shortness of breath on 09/21 x-ray was obtained showing a patchy right hilar infiltrate and right basilar infiltrate suspicious for developing pneumonia. There is concern that this was related to fluid overload she was given a dose of IV Lasix and Propulsid was ordered. Repeat chest x-ray confirmed presence of pneumonia. Patient was started on doxycycline 09/23 and her Rocephin was resumed. Patient seen and examined at bedside. She is feeling much better than 2 days ago. She denies any chest pain. She still having a cough productive of yellow sputum and does have some shortness of breath. She is no longer having problems with urination. Her weakness is much improved. Objective - Vital Signs Vital signs: Vital Signs Temp 98.1 F 09/23/18 11:32 Pulse 74 09/23/18 11:32 Resp 20 09/23/18 11:32 BP 166/89 09/23/18 11:32 Pulse Ox 96 09/23/18 11:32 Intake & Output 09/22/18 09/23/18 09/23/18 18:59 06:59 18:59 Intake Total 1460 340 720 Output Total 900 Balance 560 340 720 Weight 97.7 kg Intake: IV 350 100 Sodium Chloride 0.9% 1, 350 100 000 ml @ 50 mls/hr IV . Q20H [facility] Rx#:[id number] Oral 1110 240 720 Output: Urine 900 Other: Voiding Method Bedside Commode Bedside Commode Bedside Commode # Voids 1 1 - Exam General: non toxic, no distress, appears at stated age, obese Derm: warm, dry Head: atraumatic, normocephalic, symmetric Eyes: EOMI, no lid lag, anicteric sclera Mouth: no lip lesion, mucus membranes moist Cardiovascular: S1S2 reg, no murmur, positive posterior tibial pulse bilateral, Lungs: Decreased breath sounds bilateral, no rhonchi, no rales , no accessory muscle use Abdominal: soft, nontender to palpation, no guarding, no appreciable organomegaly Ext: no gross muscle atrophy, no edema, no contractures Neuro: CN II-XI grossly intact, no focal neuro deficits Psych: Alert, oriented, appropriate affect - Labs CBC & Chem 7: 09/23/18 05:26 09/23/18 05:26 Labs: Abnormal Lab Results - Last 24 Hours (Table) 09/22/18 09/22/18 09/22/18 Range/Units 14:41 16:46 20:47 WBC (3.8-10.6) k/uL RBC (3.80-5.40) m/uL Hgb (11.4-16.0) gm/dL Hct (34.0-46.0) % Chloride (98-107) mmol/L BUN (7-17) mg/dL Creatinine (0.52-1.04) mg/dL POC Glucose (mg/dL) 235 H 243 H (75-99) mg/dL Calcium (8.4-10.2) mg/dL Procalcitonin 2.13 H (0.02-0.09) ng/mL 09/23/18 09/23/18 09/23/18 Range/Units 05:26 05:26 05:55 WBC 13.9 H (3.8-10.6) k/uL RBC 3.74 L (3.80-5.40) m/uL Hgb 10.6 L (11.4-16.0) gm/dL Hct 33.6 L (34.0-46.0) % Chloride 108 H (98-107) mmol/L BUN 24 H (7-17) mg/dL Creatinine 1.49 H (0.52-1.04) mg/dL POC Glucose (mg/dL) 108 H (75-99) mg/dL Calcium 8.3 L (8.4-10.2) mg/dL Procalcitonin (0.02-0.09) ng/mL 09/23/18 Range/Units 11:25 WBC (3.8-10.6) k/uL RBC (3.80-5.40) m/uL Hgb (11.4-16.0) gm/dL Hct (34.0-46.0) % Chloride (98-107) mmol/L BUN (7-17) mg/dL Creatinine (0.52-1.04) mg/dL POC Glucose (mg/dL) 203 H (75-99) mg/dL Calcium (8.4-10.2) mg/dL Procalcitonin (0.02-0.09) ng/mL Assessment and Plan Assessment: E. coli Urinary tract infection present on admission associated with E. coli bacteremia -We will need beta-lactam 7 days, continue Rocephin for now -Recommend repeat urinalysis 7 days after completion of antibiotics to ensure resolution this patient has had recurrent urinary tract infections Pneumonia, community-acquired -Add doxycycline, resume Rocephin -Repeat chest x-ray in a.m. -Mucinex -Pro calcitonin is elevated Atrial fibrillation, RVR resolved -Continue current Toprol dose -Continue with eliquis -Cardiology recommendations appreciated Diabetes mellitus type 2 with hyperglycemia -Continue with Levemir is and blood sugar is controlled -She blood sugars with meals still uncontrolled and increased NovoLog to 10 units at each meal -Blood sugars are controlled at home with A1c of 9.6 -Outpatient follow-up with PCP Chronic kidney disease, stage 3/4 -Creatinine appears at baseline approximately 1.5 -Continue with current regimen -Follow BMP Obesity with BMI 37 -Outpatient structured weight loss Diastolic congestive heart failure with ejection fraction 50-55% associated with mild pulmonary hypertension -Continue with beta alejandro, arm -Continue with oral Lasix Hypothyroidism -TSH within normal -Continue with Synthroid Toxic metabolic encephalopathy, resolved Severe sepsis, resolved Lactic acidosis, resolved JOCY, resolved DVT prophylaxis: eliquis Discussed with: patient, nursing Anticipated discharge: 24-[address]: home A total of 35 minutes was spent on the care of this complex patient more than 50 % of the time was spent in counseling and care coordination.
[2018-09-23 20:29] LABS: Glucose,Whole Blood 256 mg/dL (75-99)
[2018-09-23] MEDS: ATORVASTATIN 80 MG TAB PO SCH (20:43)
[2018-09-23] MEDS: CALCIUM ACETATE 667 MG CAP PO SCH (20:44)
[2018-09-23] MEDS: INSULIN DETEMIR 100 UNIT/ML 10 ML VIAL SQ SCH (20:44)
[2018-09-24 03:09] LABS: Glucose,Whole Blood 117 mg/dL (75-99)
[2018-09-24 05:40] LABS: Glucose,Whole Blood 63 mg/dL (75-99)
[2018-09-24] MEDS: INSULIN ASPART 100 UNIT/ML 1 ML 10 ML VIAL SQ SCH ×2 (05:54→06:26)
[2018-09-24 06:10] LABS: Glucose,Whole Blood 86 mg/dL (75-99)
[2018-09-24] MEDS: LEVOTHYROXINE 100 MCG TAB PO SCH (06:25)
[2018-09-24] MEDS: PANTOPRAZOLE 40 MG TABLET PO SCH (06:26)
[2018-09-24] MEDS: CALCIUM ACETATE 667 MG CAP PO SCH (08:23)
[2018-09-24] MEDS: DOCUSATE 100 MG CAP PO SCH (08:23)
[2018-09-24] MEDS: LOSARTAN 50 MG TAB PO SCH (08:23)
[2018-09-24] MEDS: APIXABAN 2.5 MG TABLET PO SCH (08:23)
[2018-09-24] MEDS: DOXYCYCLINE 100 MG CAP PO SCH (08:23)
[2018-09-24] MEDS: FUROSEMIDE 40 MG TAB PO SCH (08:23)
[2018-09-24] MEDS: METOPROLOL SUCCINATE (ER) 25 MG TAB.ER.24H PO SCH (08:23)
[2018-09-24] MEDS ORDERED: CHOLECALCIFEROL 1,000 UNIT TAB PO SCH (09:00)
[2018-09-24 09:26] LABS: HCT 32.8 % (34.0-46.0); HGB 10.6 gm/dL (11.4-16.0); Hypochromasia Slight; MCH 29.2 pg (25.0-35.0); MCHC 32.2 g/dL (31.0-37.0); MCV 90.7 fL (80.0-100.0); Mean Platelet Volume 7.3; Platelet Count 336 k/uL (150-450); RBC 3.61 m/uL (3.80-5.40); RDW 13.9 % (11.5-15.5); WBC 13.6 k/uL (3.8-10.6)
--- NOTE | 2018-09-24 09:30 | XR ---
EXAMINATION TYPE: XR chest 1V portable DATE OF EXAM: 09/24/2018 COMPARISON: 09/23/2018 INDICATION: Pneumonia TECHNIQUE: Single frontal view of the chest is obtained. FINDINGS: The heart size is normal. The pulmonary vasculature is normal. The lungs are clear. There is some mild limitation due to body habitus. 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 IMPRESSION: 1. No acute pulmonary process.
[2018-09-24 09:45] LABS: Calcium 8.2 mg/dL (8.4-10.2); Potassium 3.8 mmol/L (3.5-5.1)
[2018-09-24] MEDS ORDERED: FLUCONAZOLE 150 MG TAB PO STA (10:48)
[2018-09-24 11:34] LABS: Glucose,Whole Blood 170 mg/dL (75-99)
--- NOTE | 2018-09-24 11:45 | P.DS ---
Providers Date of admission: 09/20/18 11:44 Expected date of discharge: 09/24/18 Attending physician: Ayan Patel MD Consults: 09/21/18 13:17 Consult Physician Urgent Consulting Provider: Juancho Culp Consult Reason/Comments: Afib with RVR Do you want consulting provider notified?: Yes Primary care physician: Melly Alvares MD Hospital Course: Discharge Diagnosis: E. coli urinary tract infection, present on admission E. coli bacteremia Community-acquired pneumonia Vaginal yeast infection A. fib with RVR Diabetes mellitus type 2 with both hyper and hypoglycemia during hospitalization , A1c 9.6 Chronic kidney disease stage 3/4 Obesity with BMI 37 Diastolic congestive heart failure with mild pulmonary hypertension Hypothyroidism Toxic metabolic encephalopathy Severe sepsis Actiq acidosis Acute kidney injury Hospital Course: Patient is 78-year-old female with past medical history of coronary artery disease, A. fib on eliquis, prior urinary tract infections, stroke, dyslipidemia, chronic kidney disease, and hypertension as well as multiple other comorbid conditions who presented to the emergency department for 2 days of fever, confusion, and lethargy. In the ER she underwent an extensive evaluation. She was found to have an elevated white blood cell count 23.1, elevated blood sugars of 381, and urinalysis consistent with urinary tract infection. CT of the head showed nonspecific white matter changes and acute to subacute CVA. She was started on IV fluids and antibiotics was admitted for further monitoring and care. She was maintained on Rocephin and she ultimately grew out E. coli in her urine and one of 2 blood cultures. She underwent an MRI of the brain which shows cerebral atrophy with chronic small vessel ischemic changes but no acute or subacute CVA. On 09/20 she had an episode of A. fib with RVR and cardiology was consulted. He recommended discontinuing her aspirin and increasing her metoprolol dose. She then reverted back to sinus rhythm. She developed mild shortness of breath on 09/21 x-ray was obtained showing a patchy right hilar infiltrate and right basilar infiltrate suspicious for developing pneumonia. There is concern that this was related to fluid overload she was given a dose of IV Lasix and Procalcitonin was ordered which came back >2. Repeat chest x-ray confirmed presence of pneumonia. Patient was started on doxycycline 09/23 and her Rocephin was resumed. Her blood sugars were difficult to control during hospitalization requiring increased doses of insulin. A1c was 9.6. She follows actively with Dr. George and will continue to follow with her. She will resume her home insulin regimen as her sugars then started coming down. She'll complete a course of 4 additional days of doxycycline and 4 additional days of Vantin. I recommend a repeat urinalysis once antibiotics are completed. She also developed a yeast infection received 1 dose of Diflucan in the hospital and a prescription to have one additional dose of Diflucan at the end of her antibiotics. She'll follow-up with Dr. Alvares in the next 2-3 days. Patient seen and examined at bedside. Feeling slightly tired today. No other complaints. Breathing is back to normal. Still having some productive cough. No nausea or vomiting. Vital signs reviewed and stable. General: non toxic, no distress, appears at stated age, obese Derm: warm, dry Head: atraumatic, normocephalic, symmetric Eyes: EOMI, no lid lag, anicteric sclera Mouth: no lip lesion, mucus membranes moist Cardiovascular: S1S2 reg, no murmur, positive posterior tibial pulse bilateral, Lungs: Decreased breath sounds bilateral, no rhonchi, no rales , no accessory muscle use Abdominal: soft, nontender to palpation, no guarding, no appreciable organomegaly Ext: no gross muscle atrophy, no edema, no contractures Neuro: CN II-XI grossly intact, no focal neuro deficits Psych: Alert, oriented, appropriate affect A total of 40 minutes of time were spent preparing this complex discharge summary . Pertinent Studies: MRI brain-chronic changes, no acute infarct Chest r-urx-hydbt-sided infiltrate Brain CT-possible subacute CVA which was ruled out with MRI Patient Condition at Discharge: Good Plan - Discharge Summary Discharge Rx Participant: No New Discharge Prescriptions: New Cefpodoxime Proxetil [Vantin] 200 mg PO Q12HR #5 tab Doxycycline [Vibramycin] 100 mg PO BID #8 cap Fluconazole [Diflucan] 150 mg PO ONCE #1 tab Continue Levothyroxine Sodium [Synthroid] 100 mcg PO QAM metFORMIN HCL [Glucophage] 1,000 mg PO BID-W/MEALS Losartan Potassium 100 mg PO QAM Vitamin E (Dl,Tocopheryl Acet) [Vitamin E] 400 unit PO DAILY INSULIN LISPRO (humaLOG) [humaLOG] See Protocol SQ AC-TID Cholecalciferol (Vitamin D3) [Vitamin D3] 2,000 unit PO DAILY Turmeric/Turmeric Root Extract [Turmeric 450-50 mg Capsule] 1 cap PO DAILY Calcium Acetate [PhosLo] 667 mg PO TID Atorvastatin [Lipitor] 80 mg PO HS Apixaban [Eliquis] 5 mg PO BID #60 tab Metoprolol Succinate (ER) [Toprol XL] 25 mg PO DAILY #30 tab.er.24h Furosemide [Lasix] 40 mg PO DAILY ALPRAZolam [Xanax] 0.25 - 0.5 mg PO HS PRN PRN Reason: Insomnia Changed Insulin Glargine [Lantus] 40 unit SQ HS #0 Magnesium Oxide [Magox 400] 400 mg PO DAILY #30 tablet Potassium Chloride [K-Tab ER] 10 meq PO DAILY #30 tablet.er Discontinued Aspirin 81 mg PO DAILY Discharge Medication List Levothyroxine Sodium [Synthroid] 100 mcg PO QAM 05/15/14 [History] Losartan Potassium 100 mg PO QAM 06/14/15 [History] metFORMIN HCL [Glucophage] 1,000 mg PO BID-W/MEALS 06/14/15 [History] Vitamin E (Dl,Tocopheryl Acet) [Vitamin E] 400 unit PO DAILY 05/30/17 [History] Atorvastatin [Lipitor] 80 mg PO HS 06/30/18 [History] Calcium Acetate [PhosLo] 667 mg PO TID 06/30/18 [History] Cholecalciferol (Vitamin D3) [Vitamin D3] 2,000 unit PO DAILY 06/30/18 [History] INSULIN LISPRO (humaLOG) [humaLOG] See Protocol SQ AC-TID 06/30/18 [History] Turmeric/Turmeric Root Extract [Turmeric 450-50 mg Capsule] 1 cap PO DAILY 06/30 [History] Apixaban [Eliquis] 5 mg PO BID #60 tab 07/04/18 [Rx] Metoprolol Succinate (ER) [Toprol XL] 25 mg PO DAILY #30 tab.er.24h 07/04/18 [Rx ] ALPRAZolam [Xanax] 0.25 - 0.5 mg PO HS PRN 09/19/18 [History] Furosemide [Lasix] 40 mg PO DAILY 01/31/19 [History] Cefpodoxime Proxetil [Vantin] 200 mg PO Q12HR #5 tab 09/24/18 [Rx] Doxycycline [Vibramycin] 100 mg PO BID #8 cap 09/24/18 [Rx] Fluconazole [Diflucan] 150 mg PO ONCE #1 tab 09/24/18 [Rx] Insulin Glargine [Lantus] 40 unit SQ HS #0 09/24/18 [Rx] Magnesium Oxide [Magox 400] 400 mg PO DAILY #30 tablet 09/24/18 [Rx] Potassium Chloride [K-Tab ER] 10 meq PO DAILY #30 tablet.er 09/24/18 [Rx] Follow up Appointment(s)/Referral(s): Melly Alvares MD [Primary Care Provider] - 1-2 days Patient Instructions/Handouts: Acute Kidney Injury (DC), Urinary Tract Infection in Women (DC), Sepsis (GEN) Activity/Diet/Wound Care/Special Instructions: carb consistent diet activity as tolerated recommend repeat urine once antibiotics complete. Discharge Disposition: HOME SELF-CARE
[2018-09-24 13:08] VITALS: BP 146/67; PULSE 76; RESP 18; TEMP 98.2
--- NOTE | 2018-09-24 15:58 | P.PN ---
Subjective Progress Note Date: 09/24/18 This is a pleasant 78-year-old female with known history of chronic atrial fibrillation, mild CAD, CVA, hypertension, hyperlipidemia. Presented with symptoms of progressive weakness, confusion and was diagnosed with urinary tract infection. We were asked to see the patient in consultation because of atrial fibrillation. Most recent echocardiogram in June showed a preserved LV systolic function with mild valvular disease. She's had no chest discomfort , dyspnea, PND, orthopnea or peripheral edema. She is currently on Eliquis. I pressure this morning 140/70 with a heart rate in the 70s, 90% on room air. White blood cell count 13.9, hemoglobin 10.6, platelet count 310. Sodium 142, potassium 3.7, BUN 24 and creatinine 1.4. 09/24/2018 Patient seen and examined this morning, hemodynamically stable. Objective - Vital Signs Vital signs: Vital Signs Temp 98.2 F 09/24/18 08:00 Pulse 76 09/24/18 08:00 Resp 18 09/24/18 08:00 BP 146/67 09/24/18 08:00 Pulse Ox 94 L 09/24/18 08:00 Intake & Output 09/23/18 09/24/18 09/24/18 18:59 06:59 18:59 Intake Total 960 290 Balance 960 290 Weight 97.1 kg Intake: Intake, IV Titration 50 Amount cefTRIAXone 1,000 mg In 50 Sodium Chloride 0.9% 50 ml @ 100 mls/hr IVPB Q24HR [facility] Rx#:[id number] Oral 960 240 Other: Voiding Method Bedside Commode Bedside Commode Bedside Commode # Voids 2 1 - Exam PHYSICAL EXAMINATION: HEENT: Head is atraumatic, normocephalic. Pupils equal, round. Neck is supple. There is no elevated jugular venous pressure. HEART EXAMINATION: Heart sounds irregularly irregular, S1 and S2 with a systolic murmur. CHEST EXAMINATION: Lungs are clear to auscultation and precussion. No chest wall tenderness is noted on palpation or with deep breathing. ABDOMEN: Soft, nontender. Bowel sounds are heard. No organomegaly noted. EXTREMITIES: 2+ peripheral pulses with no evidence of peripheral edema and no calf tenderness noted. NEUROLOGIC patient is awake, alert and oriented x3. - Labs CBC & Chem 7: 09/24/18 08:55 09/24/18 08:55 Labs: Abnormal Lab Results - Last 24 Hours (Table) 09/23/18 09/23/18 09/24/18 Range/Units 16:26 20:28 02:57 WBC (3.8-10.6) k/uL RBC (3.80-5.40) m/uL Hgb (11.4-16.0) gm/dL Hct (34.0-46.0) % BUN (7-17) mg/dL Creatinine (0.52-1.04) mg/dL Glucose (74-99) mg/dL POC Glucose (mg/dL) 288 H 256 H 117 H (75-99) mg/dL Calcium (8.4-10.2) mg/dL 09/24/18 09/24/18 09/24/18 Range/Units 05:39 08:55 08:55 WBC 13.6 H (3.8-10.6) k/uL RBC 3.61 L (3.80-5.40) m/uL Hgb 10.6 L (11.4-16.0) gm/dL Hct 32.8 L (34.0-46.0) % BUN 21 H (7-17) mg/dL Creatinine 1.31 H (0.52-1.04) mg/dL Glucose 214 H (74-99) mg/dL POC Glucose (mg/dL) 63 L (75-99) mg/dL Calcium 8.2 L (8.4-10.2) mg/dL 09/24/18 Range/Units 11:32 WBC (3.8-10.6) k/uL RBC (3.80-5.40) m/uL Hgb (11.4-16.0) gm/dL Hct (34.0-46.0) % BUN (7-17) mg/dL Creatinine (0.52-1.04) mg/dL Glucose (74-99) mg/dL POC Glucose (mg/dL) 170 H (75-99) mg/dL Calcium (8.4-10.2) mg/dL Assessment and Plan Plan: Assessment: #1 Change in mental status, secondary to urinary tract infection, improving #2 paroxysmal atrial fibrillation, anticoagulated, episodes of RVR with reasonably well-controlled ventricular rate at this time #3 history of mild CAD #4 hypertension #5 renal failure Plan From cardiology's perspective, we'll recommend to continue the patient on her current anticoagulation with Eliquis, as well as the rest of her medications. DNP note has been reviewed, I agree with a documented findings and plan of care. Patient was seen and examined.
[2018-09-24] MEDS ORDERED: INSULIN DETEMIR 100 UNIT/ML 10 ML VIAL SQ SCH (21:00)
== END 2018-09-24 13:18 | disposition home or self-care (01) | DRG 871 ==
LOC: EC 10:22 → INTOOBSV 13:43 → 3NMEDONC 13:43 → 3SCARD 16:53 → OBSVTOIN 09-20 11:44
PROVIDERS: ADMIT Internal Medicine; ATTEND Internal Medicine
DX: A41.51 Sepsis due to Escherichia coli [E. coli] (principal); G93.41 Metabolic encephalopathy; J18.9 Pneumonia, unspecified organism; N39.0 Urinary tract infection, site not specified; E87.2 Acidosis; I13.0 Hypertensive heart and chronic kidney disease with heart failure and stage 1 through stage 4 chronic kidney disease, or unspecified chronic kidney disease; I50.32 Chronic diastolic (congestive) heart failure; N17.9 Acute kidney failure, unspecified; N18.4 Chronic kidney disease, stage 4 (severe); J44.0 Chronic obstructive pulmonary disease with (acute) lower respiratory infection; R65.20 Severe sepsis without septic shock; G47.33 Obstructive sleep apnea (adult) (pediatric); E03.9 Hypothyroidism, unspecified; E11.22 Type 2 diabetes mellitus with diabetic chronic kidney disease; I12.9 Hypertensive chronic kidney disease with stage 1 through stage 4 chronic kidney disease, or unspecified chronic kidney disease; E66.9 Obesity, unspecified; N18.3 Chronic kidney disease, stage 3 (moderate); E55.9 Vitamin D deficiency, unspecified; M54.5 Low back pain; G89.29 Other chronic pain; Z96.1 Presence of intraocular lens; B37.3 Candidiasis of vulva and vagina; E11.65 Type 2 diabetes mellitus with hyperglycemia; E11.649 Type 2 diabetes mellitus with hypoglycemia without coma; E78.5 Hyperlipidemia, unspecified; I48.0 Paroxysmal atrial fibrillation; I25.10 Atherosclerotic heart disease of native coronary artery without angina pectoris; K21.9 Gastro-esophageal reflux disease without esophagitis; I27.20 Pulmonary hypertension, unspecified; Z87.01 Personal history of pneumonia (recurrent); Z98.84 Bariatric surgery status; Z90.49 Acquired absence of other specified parts of digestive tract; Z90.710 Acquired absence of both cervix and uterus; Z98.42 Cataract extraction status, left eye; Z98.41 Cataract extraction status, right eye; Z82.49 Family history of ischemic heart disease and other diseases of the circulatory system; Z91.81 History of falling; Z68.37 Body mass index [BMI] 37.0-37.9, adult; Z79.01 Long term (current) use of anticoagulants; Z79.4 Long term (current) use of insulin; Z79.82 Long term (current) use of aspirin; Z79.890 Hormone replacement therapy; Z79.899 Other long term (current) drug therapy; Z80.6 Family history of leukemia; Z85.828 Personal history of other malignant neoplasm of skin; Z86.73 Personal history of transient ischemic attack (TIA), and cerebral infarction without residual deficits; Z87.440 Personal history of urinary (tract) infections
CPT/HCPCS: 36415; 70450; 70551; 71045; 71046; 80048; 80053; 81001; 82043; 82306; 82550; 82553; 82570; 83036; 83605; 83735; 83970; 84100; 84145; 84439; 84443; 84481; 84484; 84550; 85025; 85027; 87040; 87077; 87086; 87186; 93005; 96361; 96365; 99291

== ENCOUNTER → 2018-09-19 | Outpatient (CLI) | payer MEDICARE | END | disposition home or self-care (01) | LOC: LABWHC1 09:51 | PROVIDERS: ATTEND Family Medicine | DX: Z53.9 Procedure and treatment not carried out, unspecified reason (principal) ==

== ENCOUNTER → 2018-10-07 | Outpatient (CLI) | payer MEDICARE ==
[2018-10-07 09:48] LABS: Basophils # (A) 0.1 k/uL (0-0.2); Basophils % (A) 1 %; Eosinophils # (A) 0.4 k/uL (0-0.7); Eosinophils % (A) 4 %; HCT 40.3 % (34.0-46.0); HGB 12.8 gm/dL (11.4-16.0); Hypochromasia Slight; Lymphocytes # (A) 1.8 k/uL (1.0-4.8); Lymphocytes % (A) 20 %; MCH 28.7 pg (25.0-35.0); MCHC 31.7 g/dL (31.0-37.0); MCV 90.5 fL (80.0-100.0); Mean Platelet Volume 8.3; Monocytes % (A) 11 %; Neutrophils # (A) 5.7 k/uL (1.3-7.7); Neutrophils % (A) 62 %; Platelet Count 344 k/uL (150-450); RBC 4.46 m/uL (3.80-5.40); RDW 13.8 % (11.5-15.5); WBC 9.2 k/uL (3.8-10.6)
[2018-10-07 16:58] LABS: Vitamin D 25 Hydroxy 31.1 ng/mL (30.0-100.0)
[2018-10-07 18:28] LABS: Magnesium 1.8 mg/dL (1.5-2.4)
[2018-10-07 18:29] LABS: Albumin 3.8 g/dL (3.80-4.90); Albumin/Globulin Ratio 1.58 (1.60-3.17); Anion Gap 8.5 mmol/L (4.00-12.00); Calcium 8.8 mg/dL (8.7-10.3); Carbon Dioxide 28.5 mmol/L (21.6-31.8); Globulin 2.4 g/dL (1.6-3.3); Phosphorus 4.1 mg/dL (2.4-5.1); Potassium 4.3 mmol/L (3.5-5.5); Total Bilirubin 0.6 mg/dL (0.3-1.2); Total Protein 6.2 g/dL (6.2-8.2); Uric Acid 4.1 mg/dL (2.9-7.7)
[2018-10-07 18:36] LABS: T4, Free (Free Thyroxine) 1.2 ng/dL (0.80-1.80)
[2018-10-07 18:53] LABS: Parathyroid Hormone Intact 34.1 pg/mL (14.0-72.0)
[2018-10-07 18:55] LABS: Hemoglobin A1C 10.2 % (4.0-6.0)
== END | disposition home or self-care (01) ==
LOC: LABWHC1 08:41
PROVIDERS: ATTEND Family Medicine
DX: E11.22 Type 2 diabetes mellitus with diabetic chronic kidney disease (principal); E11.65 Type 2 diabetes mellitus with hyperglycemia; N18.3 Chronic kidney disease, stage 3 (moderate); E55.9 Vitamin D deficiency, unspecified; E03.9 Hypothyroidism, unspecified; Z79.4 Long term (current) use of insulin
CPT/HCPCS: 36415; 80053; 82043; 82306; 82570; 83036; 83735; 83970; 84100; 84439; 84443; 84550; 85025

== ENCOUNTER 2018-10-10 21:11 | Emergency (ER) | payer MEDICARE, OTHER ==
[2018-10-10 21:23] VITALS: BP 185/95; PULSE 103; RESP 17; TEMP 98.2
--- NOTE | 2018-10-10 21:45 | ED ---
ENT HPI - General Chief complaint: Dental/Oral Stated complaint: Tooth infection, possible sepsis Time Seen by Provider: 10/10/18 21:41 Source: patient Mode of arrival: ambulatory Limitations: no limitations - History of Present Illness Initial comments: Neva is a 78-year-old female who presents the emergency department today for evaluation of dental pain. Patient provides a very long history of multiple hospitalizations in June and earlier this month for sepsis secondary to urinary tract infections and pneumonia. Patient reports she followed up with her primary care physician had outpatient chest x-ray earlier today. She reports that she has been experiencing left upper molar pain and today became concerned that she may have an infection in her tooth, she contacted her dentist but advised them that she had been hospitalized for sepsis and I advised her she needed medical clearance before being seen in the dental office. Patient denies any additional complaints aside from the dental pain. She has had close follow-up with her primary care physician. Patient's concerned that she needs oral antibiotics to prevent worsening dental pain. Patient does have poor dental health and follows with the dentist. - Related Data Home Medications Medication Instructions Recorded Confirmed Levothyroxine Sodium [Synthroid] 100 mcg PO QAM 05/15/14 10/10/18 Losartan Potassium 100 mg PO QAM 06/14/15 10/10/18 metFORMIN HCL [Glucophage] 1,000 mg PO BID-W/MEALS 06/14/15 10/10/18 Vitamin E (Dl,Tocopheryl Acet) 400 unit PO DAILY 05/30/17 10/10/18 [Vitamin E] Atorvastatin [Lipitor] 80 mg PO HS 06/30/18 10/10/18 Calcium Acetate [PhosLo] 667 mg PO TID 06/30/18 10/10/18 Cholecalciferol (Vitamin D3) 2,000 unit PO DAILY 06/30/18 10/10/18 [Vitamin D3] INSULIN LISPRO (humaLOG) [humaLOG] See Protocol SQ AC-TID 06/30/18 10/10/18 Turmeric/Turmeric Root Extract 1 cap PO DAILY 06/30/18 10/10/18 [Turmeric 450-50 mg Capsule] ALPRAZolam [Xanax] 0.25 - 0.5 mg PO HS PRN 09/19/18 10/10/18 Furosemide [Lasix] 40 mg PO DAILY 09/19/18 10/10/18 Previous Rx's Medication Instructions Recorded Apixaban [Eliquis] 5 mg PO BID #60 tab 07/04/18 Metoprolol Succinate (ER) [Toprol 25 mg PO DAILY #30 tab.er.24h 07/04/18 XL] Insulin Glargine [Lantus] 40 unit SQ HS #0 09/24/18 Magnesium Oxide [Magox 400] 400 mg PO DAILY #30 tablet 09/24/18 Potassium Chloride [K-Tab ER] 10 meq PO DAILY #30 tablet.er 09/24/18 Penicillin V Potassium [Pen Vee K] 500 mg PO Q6H #28 tablet 10/10/18 Penicillin V Potassium [Pen Vee K] 500 mg PO Q6H #28 tablet 10/10/18 Allergies Allergy/AdvReac Type Severity Reaction Status Date / Time azithromycin Allergy Rash/Hives Verified 10/10/18 21:23 [From Zithromax Z-Jeanmarie] methylprednisolone Allergy Unknown Verified 10/10/18 21:41 [From Medrol] Childhood trimethoprim [From Bactrim] Allergy Rash/Hives Verified 10/10/18 21:23 hydrochlorothiazide AdvReac lost Verified 10/10/18 21:23 balance and fell sulfamethoxazole AdvReac Rash/Hives Verified 10/10/18 21:23 [From Bactrim] Review of Systems ROS Statement: Those systems with pertinent positive or pertinent negative responses have been documented in the HPI. ROS Other: All systems not noted in ROS Statement are negative. 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 History of Any Multi-Drug Resistant Organisms: None Reported Past Surgical History: Adenoidectomy, Back Surgery, Bariatric Surgery, Cholecystectomy, Heart Catheterization, Hysterectomy, Tonsillectomy Additional Past Surgical History / Comment(s): Cardiac caths , lap band placed/since removed, low back surgery, L carpal tunnel release x2, skin cancer removal, colonoscopies, bilateral cataract removals/lens implants. Past Anesthesia/Blood Transfusion Reactions: No Reported Reaction Past Psychological History: No Psychological Hx Reported Smoking Status: Never smoker Past Alcohol Use History: None Reported Past Drug Use History: None Reported - Past Family History Sister(s) Family Medical History: Myocardial Infarction ([place]) Brother(s) Family Medical History: Cancer Additional Family Medical History / Comment(s): colon Mother Family Medical History: Dementia Additional Family Medical History / Comment(s): Mother of dementia at the age of 89yrs. Father Additional Family Medical History / Comment(s): Pt states her father was treated for a sinus infection but really had leukemia and of this at the age of 72 yrs. General Exam - General Exam Comments Initial Comments: GENERAL: Chronically ill-appearing obese female in no acute distress HENT: Normocephalic, Atraumatic. Neck is soft and supple. No significant lymphadenopathy is noted. Moist mucous membranes. Neck has full range of motion without eliciting any pain. Poor dentition with multiple extracted teeth, dental caries, dental Fillings Some Erythema Surrounding the Right Maxillary Molar with No Obvious Abscess EYES: The sclera were anicteric and conjunctiva were pink and moist. Extraocular movements were intact and pupils were equal round and reactive to light. Eyelids were unremarkable. PULMONARY: Unlabored respirations. CARDIOVASCULAR: There is a regular rate and rhythm without any gallops or rubs. Warm and well perfused extremities ABDOMEN: Obese Soft and nontender with normal bowel sounds. SKIN: Skin is clear with no lesions or rashes and otherwise unremarkable. NEUROLOGIC: Patient is alert and oriented x3. Cranial nerves II through XII are grossly intact. Motor and sensory are also intact. Normal speech, volume and content. Symmetrical smile. MUSCULOSKELETAL: Normal extremities with adequate strength and full range of motion. No lower extremity swelling or edema. No calf tenderness. LYMPHATICS: No significant lymphadenopathy is noted PSYCHIATRIC: Normal psychiatric evaluation. Limitations: no limitations Limitations: no limitations Course Vital Signs 10/10/18 21:19 Temperature 98.2 F Pulse Rate 103 H Respiratory 17 Rate Blood Pressure 185/95 O2 Sat by Pulse 99 Oximetry Medical Decision Making - Medical Decision Making The patient was seen and evaluated history is obtained from the patient of medical record Patient repeatedly stating that she has sepsis. I did educate the patient that she does not have sepsis asepsis is a description of vital sign abnormalities in the setting of infection. I advised the patient that she did have sepsis as similar to a fever sepsis can be treated and resolved. Patient expresses relief at this and she states she was concerned that her "blood was full of poison" I do believe the patient has a mild dental infection would benefit from oral antibiotics and close dental follow-up. I advised the patient she should contact her dentist again tomorrow advised them that she has been medically cleared and started on oral antibiotics for dental infection that she needs dental follow-up patient agreeable with this plan QUESTIONS pertaining to care were answered to the best of my ability return parameters were discussed patient was discharged home in stable condition and advised to follow-up with her dentist Disposition Clinical Impression: Dental caries, Toothache Disposition: HOME SELF-CARE Instructions (If sedation given, give patient instructions): Dental Abscess (ED ), Dental Caries (ED), Toothache (ED) Prescriptions: Penicillin V Potassium [Pen Vee K] 500 mg PO Q6H #28 tablet Penicillin V Potassium [Pen Vee K] 500 mg PO Q6H #28 tablet Is patient prescribed a controlled substance at d/c from ED?: No Referrals: Melly Alvares MD [Primary Care Provider] - 1-2 days
[2018-10-10] MEDS ORDERED: PENICILLIN VK 500MG STARTER 4 TAB BTL PO STA (22:00)
== END 2018-10-10 22:44 | disposition home or self-care (01) ==
LOC: EC 21:11
DX: K02.9 Dental caries, unspecified (principal); I48.91 Unspecified atrial fibrillation; I25.10 Atherosclerotic heart disease of native coronary artery without angina pectoris; E11.22 Type 2 diabetes mellitus with diabetic chronic kidney disease; I13.0 Hypertensive heart and chronic kidney disease with heart failure and stage 1 through stage 4 chronic kidney disease, or unspecified chronic kidney disease; N18.3 Chronic kidney disease, stage 3 (moderate); I50.9 Heart failure, unspecified; K21.9 Gastro-esophageal reflux disease without esophagitis; E78.5 Hyperlipidemia, unspecified; E07.9 Disorder of thyroid, unspecified; Z85.828 Personal history of other malignant neoplasm of skin; Z79.890 Hormone replacement therapy; Z79.4 Long term (current) use of insulin; Z79.899 Other long term (current) drug therapy; Z88.1 Allergy status to other antibiotic agents; Z88.2 Allergy status to sulfonamides; Z88.8 Allergy status to other drugs, medicaments and biological substances; Z95.818 Presence of other cardiac implants and grafts; Z86.73 Personal history of transient ischemic attack (TIA), and cerebral infarction without residual deficits
CPT/HCPCS: 71046; 99282

== ENCOUNTER → 2018-10-10 | Outpatient (CLI) | payer MEDICARE, OTHER ==
--- NOTE | 2018-10-10 09:30 | XR ---
EXAMINATION TYPE: XR chest 2V DATE OF EXAM: 10/10/2018 COMPARISON: 09/24/2018 TECHNIQUE: PA and lateral views submitted. HISTORY: Sepsis FINDINGS: Atherosclerotic change of the aorta. The heart is enlarged. 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 Diffuse osteopenia noted. No overt failure. Biapical pleural thickening. No defini te consolidation. Hypertrophic and degenerative change of the spine. IMPRESSION: 1. No acute process.
== END | disposition home or self-care (01) ==
LOC: RADXRMAIN 08:56
PROVIDERS: ATTEND Family Medicine
DX: J18.9 Pneumonia, unspecified organism (principal)
CPT/HCPCS: 71046

== ENCOUNTER → 2018-11-01 | Outpatient (CLI) | payer MEDICARE, OTHER ==
--- NOTE | 2018-11-01 15:24 | US ---
EXAMINATION TYPE: US kidneys/renal and bladder DATE OF EXAM: 11/01/2018 COMPARISON: Prior exam 01/18/2015 CLINICAL HISTORY: N18.3 CKD. CKD, no symptoms, diabetic EXAM MEASUREMENTS: Right Kidney: 10.5 x 5.1 x 5.6 cm Left Kidney: 11.2 x 3.6 x 5.8 cm Right Kidney: No hydronephrosis or masses seen Left Kidney: No hydronephrosis or masses seen Bladder: wnl Bilateral Jets seen: no Cortical medullary differentiation is maintained. IMPRESSION: Renal sizes as described.
== END ==
LOC: RADUSWWP 13:10
PROVIDERS: ATTEND Family Medicine
DX: N18.3 Chronic kidney disease, stage 3 (moderate) (principal); R80.9 Proteinuria, unspecified
CPT/HCPCS: 76770

== ENCOUNTER → 2018-11-27 | Outpatient (CLI) | payer MEDICARE ==
--- NOTE | 2018-11-27 10:47 | XR ---
EXAMINATION TYPE: XR chest 2V DATE OF EXAM: 11/27/2018 COMPARISON: Prior chest x-ray 10/10/2018 and chest x-ray 05/13/2000 HISTORY: Acute bronchitis, cough TECHNIQUE: Frontal and lateral views of the chest are obtained. FINDINGS: There is no focal air space opacity, pleural effusion, or pneumothorax seen. The cardiac silhouette size is within normal limits. The osseous structures are intact, possible chondroid lesi on or bone infarct in the proximal metaphysis of the right humerus is stable dating to 05/13/2011. 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 Surgical clips in the upper abdomen. IMPRESSION: No acute cardiopulmonary process.
== END | disposition home or self-care (01) ==
LOC: RADXRMAIN 09:35
PROVIDERS: ATTEND Family Medicine
DX: J20.9 Acute bronchitis, unspecified (principal)
CPT/HCPCS: 71046

== ENCOUNTER 2018-11-29 10:18 | Inpatient (IN) | payer MEDICARE ==
[2018-11-29] MEDS ORDERED: SODIUM CHLORIDE 0.9% 1,000 ML IV STA (11:15)
[2018-11-29] MEDS ORDERED: ONDANSETRON 4 MG/2 ML VIAL IVP STA (11:21)
[2018-11-29] MEDS ORDERED: MORPHINE SULFATE 4 MG/ML SYRINGE IVP STA (11:21)
--- NOTE | 2018-11-29 11:25 | ED ---
Headache HPI - General Chief Complaint: Headache Stated Complaint: Fever/cough Time Seen by Provider: 11/29/18 10:49 Source: RN notes reviewed, old records reviewed Mode of arrival: wheelchair Limitations: no limitations - History of Present Illness Initial Comments: This is a 78-year-old female the ER for evaluation. Presents today for evaluation in regards to not feeling well, patient recently diagnosed with bronchitis, taking albuterol a 71-year-old injured headache after she takes it. Patient states she does also have history of chronic headaches. No fevers. She has had increasing cough and congestion despite treatment. She is on a Z-Jeanmarie as well patient does have a long significant medical history. No trauma. Denies neck pain or back pain. MD Complaint: headache, "migraine" -: days(s) (3) Onset Description: gradual Location: diffuse Severity: moderate Severity scale (1-10): 5 Quality: aching, throbbing Consistency: intermittent Improves With: nothing Worsens With: none Context: recent URI Associated Symptoms: weakness Treatments Prior to Arrival: none - Related Data Home Medications Medication Instructions Recorded Confirmed Losartan Potassium 100 mg PO QAM 06/14/15 11/29/18 metFORMIN HCL [Glucophage] 500 mg PO BID-W/MEALS 06/14/15 11/29/18 Vitamin E (Dl,Tocopheryl Acet) 400 unit PO DAILY 05/30/17 11/29/18 [Vitamin E] Atorvastatin [Lipitor] 80 mg PO HS 06/30/18 11/29/18 Calcium Acetate [PhosLo] 667 mg PO TID 06/30/18 11/29/18 Cholecalciferol (Vitamin D3) 2,000 unit PO DAILY 06/30/18 11/29/18 [Vitamin D3] INSULIN LISPRO (humaLOG) [humaLOG] See Protocol SQ AC-TID 06/30/18 11/29/18 Turmeric/Turmeric Root Extract 1 cap PO DAILY 06/30/18 11/29/18 [Turmeric 450-50 mg Capsule] ALPRAZolam [Xanax] 0.25 - 0.5 mg PO HS PRN 09/19/18 11/29/18 Furosemide [Lasix] 40 mg PO DAILY 09/19/18 11/29/18 Insulin Glargine [Lantus] 56 unit SQ HS 11/29/18 11/29/18 Levothyroxine Sodium [Synthroid] 125 mcg PO DAILY 11/29/18 11/29/18 Potassium Chloride [K-Tab ER] 10 meq PO BID 11/29/18 11/29/18 glipiZIDE [Glucotrol] 5 mg PO BID 11/29/18 11/29/18 hydrALAZINE HCL 25 mg PO BID 11/29/18 11/29/18 Previous Rx's Medication Instructions Recorded Apixaban [Eliquis] 5 mg PO BID #60 tab 07/04/18 Metoprolol Succinate (ER) [Toprol 25 mg PO DAILY #30 tab.er.24h 07/04/18 XL] Magnesium Oxide [Magox 400] 400 mg PO DAILY #30 tablet 09/24/18 Allergies Allergy/AdvReac Type Severity Reaction Status Date / Time azithromycin Allergy Rash/Hives Verified 11/29/18 10:49 [From Zithromax Z-Jeanmarie] methylprednisolone Allergy Unknown Verified 11/29/18 10:49 [From Medrol] Childhood trimethoprim [From Bactrim] Allergy Rash/Hives Verified 11/29/18 10:49 hydrochlorothiazide AdvReac lost Verified 11/29/18 10:49 balance and fell sulfamethoxazole AdvReac Rash/Hives Verified 11/29/18 10:49 [From Bactrim] Review of Systems ROS Statement: Those systems with pertinent positive or pertinent negative responses have been documented in the HPI. ROS Other: All systems not noted in ROS Statement are negative. 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 History of Any Multi-Drug Resistant Organisms: None Reported Past Surgical History: Adenoidectomy, Back Surgery, Bariatric Surgery, Cholecys tectomy, Heart Catheterization, Hysterectomy, Tonsillectomy Additional Past Surgical History / Comment(s): Cardiac caths , lap band placed/since removed, low back surgery, L carpal tunnel release x2, skin cancer removal, colonoscopies, bilateral cataract removals/lens implants. Past Anesthesia/Blood Transfusion Reactions: No Reported Reaction Past Psychological History: No Psychological Hx Reported Smoking Status: Never smoker Past Alcohol Use History: None Reported Past Drug Use History: None Reported - Past Family History Sister(s) Family Medical History: Myocardial Infarction ([place]) Brother(s) Family Medical History: Cancer Additional Family Medical History / Comment(s): colon Mother Family Medical History: Dementia Additional Family Medical History / Comment(s): Mother of dementia at the age of 89yrs. Father Additional Family Medical History / Comment(s): Pt states her father was treated for a sinus infection but really had leukemia and of this at the age of 72 yrs. General Exam Limitations: no limitations General appearance: alert, in no apparent distress Head exam: Present: atraumatic, normocephalic, normal inspection Eye exam: Present: normal appearance, PERRL, EOMI. Absent: scleral icterus, conjunctival injection, periorbital swelling ENT exam: Present: normal exam, mucous membranes moist Neck exam: Present: normal inspection. Absent: tenderness, meningismus, lymphadenopathy Respiratory exam: Present: normal lung sounds bilaterally. Absent: respiratory distress, wheezes, rales, rhonchi, stridor Cardiovascular Exam: Present: regular rate, normal rhythm, normal heart sounds. Absent: systolic murmur, diastolic murmur, rubs, gallop, clicks GI/Abdominal exam: Present: soft, normal bowel sounds. Absent: distended, tenderness, guarding, rebound, rigid Extremities exam: Present: normal inspection, full ROM, normal capillary refill. Absent: tenderness, pedal edema, joint swelling, calf tenderness Back exam: Present: normal inspection Neurological exam: Present: alert, oriented X3, CN II-XII intact Psychiatric exam: Present: normal affect, normal mood Skin exam: Present: warm, dry, intact, normal color. Absent: rash Course Vital Signs 11/29/18 10:34 Temperature 97.9 F Pulse Rate 84 Respiratory 18 Rate Blood Pressure 144/77 O2 Sat by Pulse 91 L Oximetry - Reevaluation(s) Reevaluation #1: 11/29/18 12:36 Medical records reviewed Reevaluation #2: 11/29/18 12:36 Patient does have current improvement in headache Reevaluation #3: 11/29/18 12:36 Blood sugar found to be low, patient given dextrose here in the ER Medical Decision Making - Medical Decision Making 78 female the ER with weakness and headache. Patient doesn't glycemic event found here in the hospital malnutrition secondary to infection. Bronchitis which is felt outpatient treatment as well as pneumonias. - Lab Data Result diagrams: 11/29/18 11:56 11/29/18 11:56 Lab Results 11/29/18 11/29/18 11/29/18 Range/Units 11:54 11:56 11:56 WBC 13.4 H (3.8-10.6) k/uL RBC 4.60 (3.80-5.40) m/uL Hgb 13.0 (11.4-16.0) gm/dL Hct 40.1 (34.0-46.0) % MCV 87.1 (80.0-100.0) fL MCH 28.3 (25.0-35.0) pg MCHC 32.5 (31.0-37.0) g/dL RDW 14.2 (11.5-15.5) % Plt Count 288 (150-450) k/uL PT (9.0-12.0) sec INR (<1.2) APTT (22.0-30.0) sec Sodium 142 (137-145) mmol/L Potassium 3.5 (3.5-5.1) mmol/L Chloride 105 (98-107) mmol/L Carbon Dioxide 29 (22-30) mmol/L Anion Gap 8 mmol/L BUN 24 H (7-17) mg/dL Creatinine 1.16 H (0.52-1.04) mg/dL Est GFR (CKD-EPI)AfAm 53 (>60 ml/min/1.73 sqM) Est GFR (CKD-EPI)NonAf 46 (>60 ml/min/1.73 sqM) Glucose 40 L* (74-99) mg/dL POC Glucose (mg/dL) 47 L (75-99) mg/dL POC Glu [employer] ID Meghna De La Paz Plasma Lactic Acid Terry (0.7-2.0) mmol/L Calcium 9.6 (8.4-10.2) mg/dL Phosphorus 3.4 (2.5-4.5) mg/dL Magnesium 2.1 (1.6-2.3) mg/dL Total Bilirubin 0.5 (0.2-1.3) mg/dL AST 59 H (14-36) U/L ALT 57 H (9-52) U/L Alkaline Phosphatase 114 (38-126) U/L Troponin I (0.000-0.034) ng/mL Total Protein 7.1 (6.3-8.2) g/dL Albumin 4.1 (3.5-5.0) g/dL Urine Color Urine Appearance (Clear) Urine pH (5.0-8.0) Ur Specific [place] (1.001-1.035) Urine Protein (Negative) Urine Glucose (UA) (Negative) Urine Ketones (Negative) Urine Blood (Negative) Urine Nitrite (Negative) Urine Bilirubin (Negative) Urine Urobilinogen (<2.0) mg/dL Ur Leukocyte Esterase (Negative) Urine RBC (0-5) /hpf Urine WBC (0-5) /hpf Ur Squamous Epith Cells (0-4) /hpf Urine Bacteria (None) /hpf Hyaline Casts (0-2) /lpf Urine Mucus (None) /hpf 11/29/18 11/29/18 11/29/18 Range/Units 11:56 11:56 11:56 WBC (3.8-10.6) k/uL RBC (3.80-5.40) m/uL Hgb (11.4-16.0) gm/dL Hct (34.0-46.0) % MCV (80.0-100.0) fL MCH (25.0-35.0) pg MCHC (31.0-37.0) g/dL RDW (11.5-15.5) % Plt Count (150-450) k/uL PT 10.5 (9.0-12.0) sec INR 1.0 (<1.2) APTT 24.6 (22.0-30.0) sec Sodium (137-145) mmol/L Potassium (3.5-5.1) mmol/L Chloride (98-107) mmol/L Carbon Dioxide (22-30) mmol/L Anion Gap mmol/L BUN (7-17) mg/dL Creatinine (0.52-1.04) mg/dL Est GFR (CKD-EPI)AfAm (>60 ml/min/1.73 sqM) Est GFR (CKD-EPI)NonAf (>60 ml/min/1.73 sqM) Glucose (74-99) mg/dL POC Glucose (mg/dL) (75-99) mg/dL POC Glu [employer] ID Plasma Lactic Acid Terry 1.5 (0.7-2.0) mmol/L Calcium (8.4-10.2) mg/dL Phosphorus (2.5-4.5) mg/dL Magnesium (1.6-2.3) mg/dL Total Bilirubin (0.2-1.3) mg/dL AST (14-36) U/L ALT (9-52) U/L Alkaline Phosphatase (38-126) U/L Troponin I 0.019 (0.000-0.034) ng/mL Total Protein (6.3-8.2) g/dL Albumin (3.5-5.0) g/dL Urine Color Urine Appearance (Clear) Urine pH (5.0-8.0) Ur Specific [place] (1.001-1.035) Urine Protein (Negative) Urine Glucose (UA) (Negative) Urine Ketones (Negative) Urine Blood (Negative) Urine Nitrite (Negative) Urine Bilirubin (Negative) Urine Urobilinogen (<2.0) mg/dL Ur Leukocyte Esterase (Negative) Urine RBC (0-5) /hpf Urine WBC (0-5) /hpf Ur Squamous Epith Cells (0-4) /hpf Urine Bacteria (None) /hpf Hyaline Casts (0-2) /lpf Urine Mucus (None) /hpf 11/29/18 11/29/18 Range/Units 12:25 12:38 WBC (3.8-10.6) k/uL RBC (3.80-5.40) m/uL Hgb (11.4-16.0) gm/dL Hct (34.0-46.0) % MCV (80.0-100.0) fL MCH (25.0-35.0) pg MCHC (31.0-37.0) g/dL RDW (11.5-15.5) % Plt Count (150-450) k/uL PT (9.0-12.0) sec INR (<1.2) APTT (22.0-30.0) sec Sodium (137-145) mmol/L Potassium (3.5-5.1) mmol/L Chloride (98-107) mmol/L Carbon Dioxide (22-30) mmol/L Anion Gap mmol/L BUN (7-17) mg/dL Creatinine (0.52-1.04) mg/dL Est GFR (CKD-EPI)AfAm (>60 ml/min/1.73 sqM) Est GFR (CKD-EPI)NonAf (>60 ml/min/1.73 sqM) Glucose (74-99) mg/dL POC Glucose (mg/dL) 140 H (75-99) mg/dL POC Glu [employer] ID Meghna De La Paz Plasma Lactic Acid Terry (0.7-2.0) mmol/L Calcium (8.4-10.2) mg/dL Phosphorus (2.5-4.5) mg/dL Magnesium (1.6-2.3) mg/dL Total Bilirubin (0.2-1.3) mg/dL AST (14-36) U/L ALT (9-52) U/L Alkaline Phosphatase (38-126) U/L Troponin I (0.000-0.034) ng/mL Total Protein (6.3-8.2) g/dL Albumin (3.5-5.0) g/dL Urine Color Yellow Urine Appearance Clear (Clear) Urine pH 6.0 (5.0-8.0) Ur Specific [place] 1.026 (1.001-1.035) Urine Protein 3+ H (Negative) Urine Glucose (UA) 1+ H (Negative) Urine Ketones Negative (Negative) Urine Blood Trace H (Negative) Urine Nitrite Negative (Negative) Urine Bilirubin Negative (Negative) Urine Urobilinogen <2.0 (<2.0) mg/dL Ur Leukocyte Esterase Small H (Negative) Urine RBC 5 (0-5) /hpf Urine WBC 9 H (0-5) /hpf Ur Squamous Epith Cells 4 (0-4) /hpf Urine Bacteria Rare H (None) /hpf Hyaline Casts 37 H (0-2) /lpf Urine Mucus Rare H (None) /hpf - EKG Data -: EKG Interpreted by Me (EKG shows sinus rhythm rate of 65, DE 144, QRS 110, QTc 482) - Radiology Data Radiology results: report reviewed (CT brain negative for acute disease chest x- ray shows pneumonia), image reviewed Disposition Clinical Impression: Hypoglycemia, Dehydration, Community acquired bacterial pneumonia, Bronchitis, Failure of outpatient treatment Disposition: ADMITTED IP TO THIS HOSP Condition: Fair Is patient prescribed a controlled substance at d/c from ED?: No Referrals: Melly Alvares MD [Primary Care Provider] - 1-2 days
[2018-11-29] MEDS ORDERED: DEXTROSE 50%-WATER 50 ML SYRINGE IVP STA (12:01)
[2018-11-29 12:05] LABS: Glucose,Whole Blood 47 mg/dL (75-99)
[2018-11-29 12:17] LABS: HCT 40.1 % (34.0-46.0); MCH 28.3 pg (25.0-35.0); MCHC 32.5 g/dL (31.0-37.0); MCV 87.1 fL (80.0-100.0); Mean Platelet Volume 7.7; Platelet Count 288 k/uL (150-450); RDW 14.2 % (11.5-15.5); WBC 13.4 k/uL (3.8-10.6)
[2018-11-29 12:24] LABS: Albumin 4.1 g/dL (3.5-5.0); Calcium 9.6 mg/dL (8.4-10.2); Magnesium 2.1 mg/dL (1.6-2.3); Phosphorus 3.4 mg/dL (2.5-4.5); Potassium 3.5 mmol/L (3.5-5.1); Total Bilirubin 0.5 mg/dL (0.2-1.3); Total Protein 7.1 g/dL (6.3-8.2)
[2018-11-29 12:27] LABS: Glucose,Whole Blood 140 mg/dL (75-99)
--- NOTE | 2018-11-29 12:37 | CT ---
EXAMINATION TYPE: CT brain wo con DATE OF EXAM: 11/29/2018 COMPARISON: 09/19/2018. HISTORY: Weakness CT DLP: 1044.4 mGycm Automated exposure control for dose reduction was used. FINDINGS: Benign dystrophic calcifications are seen within the right basal ganglia. Old lacunar injury is noted of the inferior right basal ganglia unchanged from the prior. Patchy areas of hypoattenuation are se en within the periventricular and subcortical white matter. Mild prominence of the ventricular system and peripheral sulci are seen compatible with age-related volume loss. No acute intracranial hemorrh age, midline shift or mass effect. Old lacunar injury is also seen of the right cerebellar hemisphere . Rubi-white matter interface appears maintained. No suspicious extra-axial fluid collection is noted . Orbits are grossly unremarkable. Moderate paranasal sinus disease is seen within the ethmoid and ma xillary sinuses. Remaining paranasal sinuses and mastoid air cells are well aerated. Calvarium is int act. IMPRESSION: NO ACUTE INTRACRANIAL PROCESS. OLD LACUNAR INJURIES OF THE RIGHT BASAL GANGLIA AND CEREBELLAR HEMISPH ERE ARE SIMILAR TO THE PRIOR OF 09/19/2018 IS MODERATE BURDEN NONSPECIFIC WHITE MATTER CHANGE AND M ILD CEREBRAL ATROPHY.
[2018-11-29] MEDS ORDERED: diphenhydrAMINE 50 MG/ML 1 ML VIAL IVP STA (12:48)
[2018-11-29] MEDS ORDERED: KETOROLAC 30 MG/ML 1 ML VIAL IVP STA (12:48)
[2018-11-29] MEDS ORDERED: METOCLOPRAMIDE 5 MG/ML 2 ML VIAL IVP STA (12:48)
[2018-11-29 12:55] LABS: Partial Thromboplastin Time 24.6 sec (22.0-30.0); Prothrombin Time 10.5 sec (9.0-12.0)
--- NOTE | 2018-11-29 12:59 | XR ---
EXAMINATION TYPE: XR chest 2V DATE OF EXAM: 11/29/2018 COMPARISON: 11/27/2018 HISTORY: Cough, fever, and headache TECHNIQUE: Frontal and lateral views of the chest are obtained. FINDINGS: Minimal interstitial prominence is seen in the perihilar regions when compared to the prior and peribronchial cuffing around the left lower lobe bronchi in the retrocardiac airspace. There is no pulmonary vascular congestion, pleural effusion, or pneumothorax seen. The cardiac silhouette siz e is within normal limits. The osseous structures are intact. Stable sclerotic right humeral head l esion and probable left intra-articular loose body. Prominence of the right hilum may partially relate to rotation however evaluation for mediastinal bernadette nopathy could be performed with chest CT on a nonemergent in this patient with a history of left ches t mass. IMPRESSION: 1. Mild interstitial prominence and left-sided peribronchial cuffing may relate to small airway disea se of infectious or reactive etiology. Bronchitis or atypical pneumonia could be considered. 2. Right hilar prominence may partially relate to rotation or adenopathy.
[2018-11-29] MEDS ORDERED: ALBUTEROL NEBULIZED 2.5 MG/3 ML INHALATION PRN (13:05)
[2018-11-29] MEDS ORDERED: PNEUMONIA PROTOCOL UTILIZED 1 EACH MISC PO PRN (13:05)
[2018-11-29 13:06] LABS: Appearance,Urine Clear (Clear); Bacteria,Urine Rare /hpf; Bilirubin,Urine Negative (Negative); Blood,Urine Trace (Negative); Color,Urine Yellow; Glucose,Urine (UA) 1+ (Negative); Hyaline Casts,Urine 37 /lpf (0-2); Ketones,Urine Negative (Negative); Leukocyte Esterase,Urine Small (Negative); Mucus,Urine Rare /hpf; Nitrite,Urine Negative (Negative); Protein,Urine 3+ (Negative); RBC,Urine 5 /hpf (0-5); Specific Gravity,Urine 1.026 (1.001-1.035); Squamous Epithelial Cell,Urine 4 /hpf (0-4); Urobilinogen,Urine <2.0 mg/dL (<2.0); WBC,Urine 9 /hpf (0-5)
[2018-11-29 13:14] LABS: Anisocytosis (M) Present; Band Neutrophils % 1 %; Lymphocytes # (M) 1.47 k/uL (1.0-4.8); Monocytes # (M) 1.74 k/uL (0-1.0); Neutrophils % (M) 72 %; Nucleated Red Blood Cells 0 /100 WBC (0-0); Poikilocytosis (M) Present; Total Cells Counted 100
[2018-11-29] MEDS: SODIUM CHLORIDE 0.9% 1,000 ML IV SCH (13:35)
[2018-11-29] MEDS: IPRATROPIUM-ALBUTEROL 3 ML NEB INHALATION SCH ×2 (15:45→19:48)
--- NOTE | 2018-11-29 18:10 | P.HPIM ---
History of Present Illness H&P Date: 11/29/18 Chief Complaint: SOB and coughing 78 year old female with complex past medical history, including COPD, afib on apixaban, CAD, CHF, CVA, DM poorly controlled patient presented today with 1 week history of worsening productive cough clear sputum, no hemoptysis, SOB, fevers and chills. patient reports that her cough has been worsening over the past few days , despite seeing her PCP and starting a course of zpack. she had a CXR 4 days ago and was reported to her to be normal without evidence of penumonia. however, she stayed up all night last night due to severe cough and pleuritic chest pain. this morning she was having severe headche, checked her blood sugar and was 440, for which she got 25 units of humalog (scheduled dose and sliding scale) and waited for her blood sugar to correct, but then she started feeling dizzy and having severe headache, for which she decided to come to the hospital. she also admits to sick contact with family members who are having flue like symptoms. she reports generalized body aches and chills. no runny nose or sore throat. in the ED, she was found to have blood sugar in the 40s , for which she was given a dose of D50 . CXR in the ED showed infilterates suspicious for pneumonia patient was hospitalized september and treated for pneumonia . otherwise denies any nausea, vomiting, abd pain, changes in her urinary or bowel habits. denies any focal neuro deficits. denies any GI bleeding Review of Systems Pertinent positives as noted in HPI. All other systems were reviewed and are negative Past Medical History Past Medical History: Atrial Fibrillation, Coronary Artery Disease (CAD), Cancer, Heart Failure, COPD, CVA/TIA, Diabetes Mellitus, GERD/Reflux, Hyperlipidemia, Hypertension, Pneumonia, Renal Disease, Sleep Apnea/CPAP/BIPAP, Thyroid Disorder Additional Past Medical History / Comment(s): Pt recently admitted on 09/20/18 with Ecoli UTI with Ecoli bacteremia/severe sepsis, CAP, vaginal yeast infection, Afib RVR and IDDM type II during hospitalization pt's blood sugars went up and [id number] CVA -no residual, IDDM type II, CRD stage III, pneumonia with sepsis/uti with sepsis, metabbolic encephalopathy, DEBBIE without device use, hypothyroid, past Afib wit RVR, vitamin D deficiency, chronic low back pain, james quent constipation. History of Any Multi-Drug Resistant Organisms: None Reported Past Surgical History: Adenoidectomy, Back Surgery, Bariatric Surgery, Cholecystectomy, Heart Catheterization, Hysterectomy, Tonsillectomy Additional Past Surgical History / Comment(s): Cardiac caths , lap band placed/since removed, low back surgery, L carpal tunnel release x2, skin cancer removal, colonoscopies, bilateral cataract removals/lens implants. Past Anesthesia/Blood Transfusion Reactions: No Reported Reaction Smoking Status: Never smoker - Past Family History Sister(s) Family Medical History: Myocardial Infarction ([place]) Brother(s) Family Medical History: Cancer Additional Family Medical History / Comment(s): colon Mother Family Medical History: Dementia Additional Family Medical History / Comment(s): Mother of dementia at the age of 89yrs. Father Additional Family Medical History / Comment(s): Pt states her father was treated for a sinus infection but really had leukemia and of this at the age of 72 yrs. Medications and Allergies Home Medications Medication Instructions Recorded Confirmed Type Losartan Potassium 100 mg PO QAM 06/14/15 11/29/18 History metFORMIN HCL [Glucophage] 500 mg PO BID-W/MEALS 06/14/15 11/29/18 History Vitamin E (Dl,Tocopheryl Acet) 400 unit PO DAILY 05/30/17 11/29/18 History [Vitamin E] Atorvastatin [Lipitor] 80 mg PO HS 06/30/18 11/29/18 History Calcium Acetate [PhosLo] 667 mg PO TID 06/30/18 11/29/18 History Cholecalciferol (Vitamin D3) 2,000 unit PO DAILY 06/30/18 11/29/18 History [Vitamin D3] INSULIN LISPRO (humaLOG) [humaLOG] See Protocol SQ AC-TID 06/30/18 11/29/18 History Turmeric/Turmeric Root Extract 1 cap PO DAILY 06/30/18 11/29/18 History [Turmeric 450-50 mg Capsule] Apixaban [Eliquis] 5 mg PO BID #60 tab 07/04/18 11/29/18 Rx Metoprolol Succinate (ER) [Toprol 25 mg PO DAILY #30 tab.er.24h 07/04/18 11/29/18 Rx XL] ALPRAZolam [Xanax] 0.25 - 0.5 mg PO HS PRN 09/19/18 11/29/18 History Furosemide [Lasix] 40 mg PO DAILY 09/19/18 11/29/18 History Magnesium Oxide [Magox 400] 400 mg PO DAILY #30 tablet 09/24/18 11/29/18 Rx Insulin Glargine [Lantus] 56 unit SQ HS 11/29/18 11/29/18 History Levothyroxine Sodium [Synthroid] 125 mcg PO DAILY 11/29/18 11/29/18 History Potassium Chloride [K-Tab ER] 10 meq PO BID 11/29/18 11/29/18 History glipiZIDE [Glucotrol] 5 mg PO BID 11/29/18 11/29/18 History hydrALAZINE HCL 25 mg PO BID 11/29/18 11/29/18 History Allergies Allergy/AdvReac Type Severity Reaction Status Date / Time azithromycin Allergy Rash/Hives Verified 11/29/18 10:49 [From Zithromax Z-Jeanmarie] methylprednisolone Allergy Unknown Verified 11/29/18 10:49 [From Medrol] Childhood trimethoprim [From Bactrim] Allergy Rash/Hives Verified 11/29/18 10:49 hydrochlorothiazide AdvReac lost Verified 11/29/18 10:49 balance and fell sulfamethoxazole AdvReac Rash/Hives Verified 11/29/18 10:49 [From Bactrim] Physical Exam Vitals: Vital Signs Temp Pulse Resp BP Pulse Ox 11/29/18 15:58 67 11/29/18 15:54 18 11/29/18 15:47 64 11/29/18 13:40 97 F L 62 18 122/72 97 11/29/18 10:34 97.9 F 84 18 144/77 91 L Intake and Output 11/29/18 11/29/18 11/29/18 06:59 14:59 22:59 Other: Weight 91.626 kg Constitutional: No acute distress, conversant, pleasant Eyes: Anicteric sclerae, moist conjunctiva, no lid-lag Pupils equal round reactive to light ENMT: NC/AT Oropharynx clear, no erythema, exudates Neck: Supple, FROM, no masses, or JVD No carotid bruits No thyromegaly Lungs: Good breath sounds bilaterally, rhonchorous breathing at lung bases bilaterally. Clear to percussion Normal respiratory effort, no accessory muscle use Cardiovascular: Heart regular in rate and rhythm, No murmurs, gallops, or rubs No peripheral edema Abdominal: Soft Nontender, no guarding, rebound or rigidity Abdomen moving with respiration Normoactive bowel sounds No hepatomegaly, No splenomegaly No palpable mass No abdominal wall hernia noted Skin: Normal temperature, tone, texture, turgor No induration No subcutaneous nodules No rash, lesions No ulcers Extremities: No digital cyanosis No clubbing Pedal pulses intact and symmetrical Radial pulses intact and symmetrical No calf tenderness Psychiatric: Alert and oriented to person, place and time Appropriate affect fair judgment Neuro Muscles Strength 5/5 in all 4 extremities Sensation to light touch grossly present throughout Cranial nerves II-XII grossly intact No focal sensory deficits Lymphatics: no palpable cervical or supraclavicular , or inguinal lymph nodes Results CBC & Chem 7: 11/29/18 11:56 11/29/18 11:56 Labs: Abnormal Lab Results - Last 24 Hours (Table) 11/29/18 11/29/18 11/29/18 Range/Units 11:54 11:56 11:56 WBC 13.4 H (3.8-10.6) k/uL Neutrophils # (Manual) 9.70 H (1.3-7.7) k/uL Monocytes # (Manual) 1.74 H (0-1.0) k/uL BUN 24 H (7-17) mg/dL Creatinine 1.16 H (0.52-1.04) mg/dL Glucose 40 L* (74-99) mg/dL POC Glucose (mg/dL) 47 L (75-99) mg/dL AST 59 H (14-36) U/L ALT 57 H (9-52) U/L Urine Protein (Negative) Urine Glucose (UA) (Negative) Urine Blood (Negative) Ur Leukocyte Esterase (Negative) Urine WBC (0-5) /hpf Urine Bacteria (None) /hpf Hyaline Casts (0-2) /lpf Urine Mucus (None) /hpf 11/29/18 11/29/18 Range/Units 12:25 12:38 WBC (3.8-10.6) k/uL Neutrophils # (Manual) (1.3-7.7) k/uL Monocytes # (Manual) (0-1.0) k/uL BUN (7-17) mg/dL Creatinine (0.52-1.04) mg/dL Glucose (74-99) mg/dL POC Glucose (mg/dL) 140 H (75-99) mg/dL AST (14-36) U/L ALT (9-52) U/L Urine Protein 3+ H (Negative) Urine Glucose (UA) 1+ H (Negative) Urine Blood Trace H (Negative) Ur Leukocyte Esterase Small H (Negative) Urine WBC 9 H (0-5) /hpf Urine Bacteria Rare H (None) /hpf Hyaline Casts 37 H (0-2) /lpf Urine Mucus Rare H (None) /hpf Thrombosis Risk Factor Assmnt - Choose All That Apply Any of the Below Risk Factors Present?: Yes Each Factor Represents 1 point: Obesity (BMI >25) Other Risk Factors: Yes Each Risk Factor Represents 2 Points: Malignancy Each Risk Factor Represents 3 Points: Age 75 years or older Other congenital or acquired thrombophilia - If yes, enter type in comment: No Thrombosis Risk Factor Assessment Total Risk Factor Score: 6 Thrombosis Risk Factor Assessment Level: High Risk Assessment and Plan Assessment: 78-year-old female with complex past medical history presented to the hospital and admitted as an inpatient anticipated length of stay more than 48 hours due to symptomatic hypoglycemia and pneumonia patient failed outpatient therapy for bronchitis with Z-Jeamnarie. Patient has recently been hospitalized early in September for UTI, pneumonia. Plan: community acquired pneumonia , patient was treated with ABx as OP with zpack for bronchitis, failed outpatient therapy, COPD start on levofloxacin daily tylenol for fevers follow up cultures check influenza A/B albuterol neb PRN check oxygen requirement symptomatic hypoglycemia with headaches insuline sliding scale long acting insulin at night (patient has brittle diabetes and hard to control) hold oral hypoglycemic agents chronic conditions afib on eliquis hypertension CHF compensated CKD history of CVA DVT PPX on eliquis for afib patient is no code brother in law , is surrogate decision maker anticipated discharge in 48-72 hours to home 60 min spent in the care of this patient , >50%of the time in counseling and coordinating care
[2018-11-29 18:41] LABS: Glucose,Whole Blood 197 mg/dL (75-99)
[2018-11-29] MEDS ORDERED: LEVOFLOXACIN 750 MG TAB PO SCH (19:00)
[2018-11-29 19:13] VITALS: BMI 34.7
[2018-11-29 20:42] LABS: Glucose,Whole Blood 258 mg/dL (75-99)
[2018-11-29] MEDS: CALCIUM ACETATE 667 MG CAP PO SCH (21:40)
[2018-11-29] MEDS: ATORVASTATIN 80 MG TAB PO SCH (21:40)
[2018-11-29] MEDS: APIXABAN 5 MG TAB PO SCH (21:40)
[2018-11-29] MEDS: hydrALAZINE HCL 25 MG TAB PO SCH (21:40)
[2018-11-29] MEDS: INSULIN DETEMIR (LEVEMIR) 100 UNIT/ML SYR SQ SCH (21:45)
[2018-11-29] MEDS: INSULIN ASPART (NovoLOG) 100 UNIT/ML VIAL SQ SCH (21:45)
[2018-11-29] MEDS ORDERED: ACETAMINOPHEN TAB 325 MG TAB PO PRN (22:04)
[2018-11-29] MEDS ORDERED: POLYETHYLENE GLYCOL 3350 17 GM POWD.PACK PO STA (22:04)
[2018-11-30] MEDS: LEVOTHYROXINE 125 MCG TAB PO SCH (06:23)
[2018-11-30] MEDS: SODIUM CHLORIDE 0.9% 1,000 ML IV SCH ×3 (06:24→21:16)
--- NOTE | 2018-11-30 06:49 | XR ---
EXAMINATION TYPE: XR chest 2V DATE OF EXAM: 11/30/2018 HISTORY: pneumonia. REFERENCE: Previous study dated 11/29/2018. FINDINGS: The heart is mildly prominent. There is some left basilar airspace disease. The right lung appears re latively clear. There are increased interstitial markings present throughout both lungs. These have w orsened from previous. Pleural spaces are clear. IMPRESSION: 1. MILD CARDIOMEGALY. 2. LEFT BASILAR AIRSPACE DISEASE. 3. INCREASED INTERSTITIAL MARKINGS MAY REFLECT PULMONARY EDEMA OR ATYPICAL PNEUMONIA.
[2018-11-30] MEDS: IPRATROPIUM-ALBUTEROL 3 ML NEB INHALATION SCH ×4 (07:10→19:33)
[2018-11-30 07:30] LABS: Glucose,Whole Blood 95 mg/dL (75-99)
[2018-11-30] MEDS: INSULIN ASPART (NovoLOG) 100 UNIT/ML VIAL SQ SCH ×4 (07:33→21:17)
[2018-11-30] MEDS: LOSARTAN 50 MG TAB PO SCH (08:44)
[2018-11-30] MEDS: hydrALAZINE HCL 25 MG TAB PO SCH ×2 (08:44→21:16)
[2018-11-30] MEDS: METOPROLOL SUCCINATE (ER) 25 MG TAB.ER.24H PO SCH (08:44)
[2018-11-30] MEDS: CALCIUM ACETATE 667 MG CAP PO SCH ×3 (08:44→21:16)
[2018-11-30] MEDS: APIXABAN 5 MG TAB PO SCH ×2 (08:44→21:17)
[2018-11-30] MEDS: MAGNESIUM OXIDE 400 MG TAB PO SCH (08:44)
[2018-11-30 08:56] LABS: Albumin 3.6 g/dL (3.5-5.0); Calcium 8.5 mg/dL (8.4-10.2); Potassium 4.6 mmol/L (3.5-5.1); Total Bilirubin 0.6 mg/dL (0.2-1.3); Total Protein 6.3 g/dL (6.3-8.2)
[2018-11-30 08:59] LABS: Basophils # (A) 0.1 k/uL (0-0.2); Basophils % (A) 1 %; Eosinophils # (A) 0.2 k/uL (0-0.7); Eosinophils % (A) 2 %; HCT 37.9 % (34.0-46.0); HGB 11.8 gm/dL (11.4-16.0); Lymphocytes % (A) 10 %; MCH 28.1 pg (25.0-35.0); MCHC 31.1 g/dL (31.0-37.0); MCV 90.3 fL (80.0-100.0); Mean Platelet Volume 7.3; Monocytes # (A) 1.2 k/uL (0-1.0); Monocytes % (A) 12 %; Neutrophils # (A) 7.1 k/uL (1.3-7.7); Neutrophils % (A) 72 %; Platelet Count 194 k/uL (150-450); RBC 4.19 m/uL (3.80-5.40); RDW 13.8 % (11.5-15.5); WBC 9.8 k/uL (3.8-10.6)
[2018-11-30] MEDS ORDERED: FUROSEMIDE 40 MG TAB PO SCH (09:00)
[2018-11-30] MEDS ORDERED: ENOXAPARIN 40 MG/0.4 ML SYRINGE SQ SCH (09:00)
[2018-11-30 11:39] LABS: Glucose,Whole Blood 245 mg/dL (75-99)
--- NOTE | 2018-11-30 16:56 | P.PN ---
Subjective Progress Note Date: 11/30/18 Principal diagnosis: Follow-up for pneumonia Patient seen and examined today she reports breathing better and productive cough clearing of her chest. Denies any nausea vomiting she is tolerating by mouth intake denies any fevers or chills overnight Objective - Vital Signs Vital signs: Vital Signs Temp 98.8 F 11/30/18 12:49 Pulse 75 11/30/18 15:45 Resp 16 11/30/18 15:45 BP 157/84 11/30/18 12:49 Pulse Ox 95 11/30/18 15:33 Intake & Output 11/29/18 11/30/18 11/30/18 18:59 06:59 18:59 Intake Total 600 Balance 600 Weight 91.626 kg Intake: Oral 600 Other: Voiding Method Toilet # Voids 3 8 # Bowel Movements 1 - Exam Constitutional: vital signs stable, Not in acute distress, pleasant, conversant Lungs: Good breath sounds bilaterally no wheezes rhonchi or rales Cardiovascular: Regular rate and rhythm, no murmurs, no gallops, no rubs, no peripheral edema Gastrointestinal: Soft, no tenderness to palpation, no palpable hepatosplenomegally, bowel sounds positive, no abdominal wall hernias Extremities: No digital cyanosis or clubbing, peripheral pulses palpable and equal over bilateral radial arteries and dorsalis pedis artery, no calf muscle tenderness Psych: Alert, oriented to place, person and time, appropriate affect, intact judgment - Labs CBC & Chem 7: 11/30/18 08:15 11/30/18 08:15 Labs: Abnormal Lab Results - Last 24 Hours (Table) 11/29/18 11/29/18 11/30/18 Range/Units 18:34 20:34 08:15 Monocytes # 1.2 H (0-1.0) k/uL BUN (7-17) mg/dL Creatinine (0.52-1.04) mg/dL Glucose (74-99) mg/dL POC Glucose (mg/dL) 197 H 258 H (75-99) mg/dL AST (14-36) U/L ALT (9-52) U/L 11/30/18 11/30/18 Range/Units 08:15 11:36 Monocytes # (0-1.0) k/uL BUN 26 H (7-17) mg/dL Creatinine 1.23 H (0.52-1.04) mg/dL Glucose 161 H (74-99) mg/dL POC Glucose (mg/dL) 245 H (75-99) mg/dL AST 58 H (14-36) U/L ALT 61 H (9-52) U/L Microbiology - Last 24 Hours (Table) 11/29/18 11:56 Blood Culture - Preliminary Blood No Growth after 24 hours 11/29/18 19:53 Gram Stain - Preliminary Sputum Sputum Culture - Preliminary 11/29/18 12:38 Urine Culture - Preliminary Urine,Clean Catch Assessment and Plan Assessment: 78-year-old female with complex past medical history presented to the hospital and admitted as an inpatient anticipated length of stay more than 48 hours due to symptomatic hypoglycemia and pneumonia patient failed outpatient therapy for bronchitis with Z-Jeanmarie. Patient has recently been hospitalized early in September for UTI, pneumonia. Patient tolerating levofloxacin, reports no fevers or chills overnight, coughing up phlegm. Denies any hemoptysis. We'll continue with levofloxacin for now possible discharge in the morning. Creatinine slightly elevated however still around her baseline of CK D. Patient tested negative for flu. Vital signs labs overall stable Plan: community acquired pneumonia , patient was treated with ABx as OP with zpack for bronchitis, failed outpatient therapy, COPD Continue on levofloxacin daily tylenol for fevers follow up cultures , negative to date Negative influenza A/B albuterol neb PRN check oxygen requirement prior to discharge symptomatic hypoglycemia with headaches, resolved insuline sliding scale long acting insulin at night (patient has brittle diabetes and hard to control) hold oral hypoglycemic agents chronic conditions afib on eliquis hypertension CHF compensated CKD, currently creatinine is slightly elevated however still around her baseline history of CVA DVT PPX on eliquis for afib patient is no code Possible discharge in the morning
[2018-11-30 17:18] LABS: Glucose,Whole Blood 132 mg/dL (75-99)
[2018-11-30 20:41] LABS: Glucose,Whole Blood 173 mg/dL (75-99)
[2018-11-30] MEDS ORDERED: TEMAZEPAM 15 MG CAP PO SCH (21:00)
[2018-11-30 21:09] VITALS: RESP 18
[2018-11-30] MEDS: ATORVASTATIN 80 MG TAB PO SCH (21:17)
[2018-11-30] MEDS: INSULIN DETEMIR (LEVEMIR) 100 UNIT/ML SYR SQ SCH (21:17)
[2018-12-01] MEDS: SODIUM CHLORIDE 0.9% 1,000 ML IV SCH (06:29)
[2018-12-01] MEDS: LEVOTHYROXINE 125 MCG TAB PO SCH (06:29)
[2018-12-01 06:57] LABS: Glucose,Whole Blood 163 mg/dL (75-99)
[2018-12-01] MEDS: IPRATROPIUM-ALBUTEROL 3 ML NEB INHALATION SCH ×2 (07:44→11:00)
[2018-12-01] MEDS: APIXABAN 5 MG TAB PO SCH (07:49)
[2018-12-01] MEDS: LOSARTAN 50 MG TAB PO SCH (07:49)
[2018-12-01] MEDS: CALCIUM ACETATE 667 MG CAP PO SCH (07:49)
[2018-12-01] MEDS: hydrALAZINE HCL 25 MG TAB PO SCH (07:49)
[2018-12-01] MEDS: METOPROLOL SUCCINATE (ER) 25 MG TAB.ER.24H PO SCH (07:49)
[2018-12-01] MEDS: MAGNESIUM OXIDE 400 MG TAB PO SCH (07:49)
[2018-12-01] MEDS: INSULIN ASPART (NovoLOG) 100 UNIT/ML VIAL SQ SCH ×2 (07:50→12:35)
[2018-12-01] MEDS ORDERED: LEVOFLOXACIN 750 MG TAB PO SCH (09:00)
[2018-12-01 11:55] LABS: Glucose,Whole Blood 234 mg/dL (75-99)
[2018-12-01 13:27] VITALS: BP 145/72; PULSE 70; TEMP 97.9
--- NOTE | 2018-12-01 14:34 | P.DS ---
Providers Date of admission: 11/29/18 13:05 Expected date of discharge: 12/01/18 Attending physician: Ayan Patel MD Primary care physician: Melly Alvares MD Hospital Course: final diagnosis at discharge community acquired pneumonia symptomatic hypoglycemia secondary diagnosis afib on eliquis hypertension CHF compensated CKD, currently creatinine is slightly elevated however still around her baseline history of CVA hospital course 78-year-old female with complex past medical history presented to the hospital and admitted as an inpatient anticipated length of stay more than 48 hours due to symptomatic hypoglycemia and pneumonia patient failed outpatient therapy for bronchitis with Z-Jeanmarie. Patient has recently been hospitalized early in September for UTI, pneumonia. Patient tolerating levofloxacin, reports no fevers or chills sinice started treatment, coughing up phlegm . Denies any hemoptysis. patient did well with ambulatory oxygen saturation , she is to be discharged and continue short course of levofloxacin, flu test negative, patient not wheezing and not having any shortness of breath. creatinine stable at her baseline. patient had no further episodes of hypoglycemia, her levimir dose was adjusted down to 10 units everynight (down from 56 units at home). she was requiring 3-4 units daily of humalog on sliding scale . upon discharge she is to continue taking her glipizide which was held while inpatient. patient seen and examined on day of discharge Constitutional: vital signs stable, Not in acute distress, pleasant, conversant Lungs: Good breath sounds bilaterally no wheezes rhonchi or rales Cardiovascular: Regular rate and rhythm, no murmurs, no gallops, no rubs, no peripheral edema Gastrointestinal: Soft, no tenderness to palpation, no palpable hepatosplenomegally, bowel sounds positive, no abdominal wall hernias Extremities: No digital cyanosis or clubbing, peripheral pulses palpable and equal over bilateral radial arteries and dorsalis pedis artery, no calf muscle tenderness Psych: Alert, oriented to place, person and time, appropriate affect, intact judgment Patient discharged home in stable clinical condition Follow up with PCP in 3-5 days Prescriptions sent preferred pharmacy 30 minutes were spent discharging this patient, and more than 50% of the time was spent in counseling the patient and family and in coordinating care. Patient Condition at Discharge: Fair Plan - Discharge Summary Discharge Rx Participant: No New Discharge Prescriptions: New Levofloxacin [Levaquin] 750 mg PO Q48H #2 tab Continue Losartan Potassium 100 mg PO QAM INSULIN LISPRO (humaLOG) [humaLOG] See Protocol SQ AC-TID Calcium Acetate [PhosLo] 667 mg PO TID Atorvastatin [Lipitor] 80 mg PO HS Apixaban [Eliquis] 5 mg PO BID #60 tab Metoprolol Succinate (ER) [Toprol XL] 25 mg PO DAILY #30 tab.er.24h ALPRAZolam [Xanax] 0.25 - 0.5 mg PO HS PRN PRN Reason: Insomnia glipiZIDE [Glucotrol] 5 mg PO BID Levothyroxine Sodium [Synthroid] 125 mcg PO DAILY hydrALAZINE HCL 25 mg PO BID Changed Insulin Glargine [Lantus] 10 unit SQ HS #0 Discontinued metFORMIN HCL [Glucophage] 500 mg PO BID-W/MEALS Vitamin E (Dl,Tocopheryl Acet) [Vitamin E] 400 unit PO DAILY Cholecalciferol (Vitamin D3) [Vitamin D3] 2,000 unit PO DAILY Turmeric/Turmeric Root Extract [Turmeric 450-50 mg Capsule] 1 cap PO DAILY Furosemide [Lasix] 40 mg PO DAILY Magnesium Oxide [Magox 400] 400 mg PO DAILY #30 tablet Potassium Chloride [K-Tab ER] 10 meq PO BID Discharge Medication List Losartan Potassium 100 mg PO QAM 06/14/15 [History] Atorvastatin [Lipitor] 80 mg PO HS 06/30/18 [History] Calcium Acetate [PhosLo] 667 mg PO TID 06/30/18 [History] INSULIN LISPRO (humaLOG) [humaLOG] See Protocol SQ AC-TID 06/30/18 [History] Apixaban [Eliquis] 5 mg PO BID #60 tab 07/04/18 [Rx] Metoprolol Succinate (ER) [Toprol XL] 25 mg PO DAILY #30 tab.er.24h 07/04/18 [Rx] ALPRAZolam [Xanax] 0.25 - 0.5 mg PO HS PRN 09/19/18 [History] Levothyroxine Sodium [Synthroid] 125 mcg PO DAILY 11/29/18 [History] glipiZIDE [Glucotrol] 5 mg PO BID 11/29/18 [History] hydrALAZINE HCL 25 mg PO BID 11/29/18 [History] Insulin Glargine [Lantus] 10 unit SQ HS #0 12/01/18 [Rx] Levofloxacin [Levaquin] 750 mg PO Q48H #2 tab 12/01/18 [Rx] Follow up Appointment(s)/Referral(s): Melly Alvares MD [Primary Care Provider] - 1-2 days Patient Instructions/Handouts: Community Acquired Pneumonia (DC) Discharge Disposition: HOME SELF-CARE
[2018-12-01] MEDS ORDERED: ALPRAZolam 0.5 MG TAB PO PRN (16:04)
== END 2018-12-01 14:54 | disposition home or self-care (01) | DRG 194 ==
LOC: EC 10:18 → 4MS4W 13:05
PROVIDERS: ADMIT Internal Medicine; ATTEND Internal Medicine
DX: J18.9 Pneumonia, unspecified organism (principal); J44.0 Chronic obstructive pulmonary disease with (acute) lower respiratory infection; I13.0 Hypertensive heart and chronic kidney disease with heart failure and stage 1 through stage 4 chronic kidney disease, or unspecified chronic kidney disease; E86.0 Dehydration; E11.22 Type 2 diabetes mellitus with diabetic chronic kidney disease; E11.649 Type 2 diabetes mellitus with hypoglycemia without coma; I50.9 Heart failure, unspecified; I48.91 Unspecified atrial fibrillation; N18.3 Chronic kidney disease, stage 3 (moderate); K21.9 Gastro-esophageal reflux disease without esophagitis; I25.10 Atherosclerotic heart disease of native coronary artery without angina pectoris; G47.30 Sleep apnea, unspecified; E07.9 Disorder of thyroid, unspecified; E78.5 Hyperlipidemia, unspecified; G89.29 Other chronic pain; Z79.899 Other long term (current) drug therapy; Z79.4 Long term (current) use of insulin; Z79.890 Hormone replacement therapy; Z79.01 Long term (current) use of anticoagulants; Z86.73 Personal history of transient ischemic attack (TIA), and cerebral infarction without residual deficits; Z90.710 Acquired absence of both cervix and uterus; Z95.5 Presence of coronary angioplasty implant and graft; Z90.49 Acquired absence of other specified parts of digestive tract; Z87.440 Personal history of urinary (tract) infections; Z87.01 Personal history of pneumonia (recurrent); Z96.1 Presence of intraocular lens; Z85.828 Personal history of other malignant neoplasm of skin; Z98.42 Cataract extraction status, left eye; Z98.41 Cataract extraction status, right eye; Z88.1 Allergy status to other antibiotic agents; Z88.2 Allergy status to sulfonamides; Z88.8 Allergy status to other drugs, medicaments and biological substances; Z82.49 Family history of ischemic heart disease and other diseases of the circulatory system; Z80.6 Family history of leukemia
CPT/HCPCS: 36415; 70450; 71046; 80053; 81001; 83605; 83735; 84100; 84484; 85025; 85610; 85730; 87040; 87070; 87086; 87205; 87502; 93005; 94640; 94760; 96361; 96365; 96375; 99285

== ENCOUNTER → 2018-12-04 | Outpatient (CLI) | payer MEDICARE ==
[2018-12-04 17:39] LABS: HCT 35.9 % (34.0-46.0); HGB 11.5 gm/dL (11.4-16.0); MCV 87.4 fL (80.0-100.0); Mean Platelet Volume 7.1; Platelet Count 266 k/uL (150-450); RBC 4.11 m/uL (3.80-5.40); RDW 13.9 % (11.5-15.5); WBC 10.2 k/uL (3.8-10.6)
[2018-12-04 17:47] LABS: Appearance,Urine Clear (Clear); Bilirubin,Urine Negative (Negative); Blood,Urine Trace (Negative); Color,Urine Yellow; Glucose,Urine (UA) 4+ (Negative); Ketones,Urine Negative (Negative); Leukocyte Esterase,Urine Moderate (Negative); Mucus,Urine Rare /hpf; Nitrite,Urine Negative (Negative); Protein,Urine 2+ (Negative); RBC,Urine 4 /hpf (0-5); Specific Gravity,Urine 1.016 (1.001-1.035); Squamous Epithelial Cell,Urine 1 /hpf (0-4); Urobilinogen,Urine <2.0 mg/dL (<2.0); WBC,Urine 43 /hpf (0-5)
[2018-12-04 17:59] LABS: Albumin 3.6 g/dL (3.5-5.0); Calcium 9.1 mg/dL (8.4-10.2); Phosphorus 4.9 mg/dL (2.5-4.5); Potassium 3.7 mmol/L (3.5-5.1); Total Bilirubin 0.5 mg/dL (0.2-1.3); Total Protein 6.5 g/dL (6.3-8.2)
--- NOTE | 2018-12-05 07:37 | XR ---
EXAMINATION TYPE: XR chest 2V DATE OF EXAM: 12/04/2018 COMPARISON: 11/30/2018 TECHNIQUE: PA and lateral views submitted. HISTORY: Cough FINDINGS: Interval improvement in left basilar infiltrate. No pleural effusion or pneumothorax. Sclerotic lesio n of the humeral head likely related to bone infarct less likely chondroid lesion. Calcified lymph no de density seen in the left axilla. Atherosclerotic change aorta. No overt failure. Hypertrophic and degenerative change of the spine. IMPRESSION: 1. Interval marked improvement in left basilar infiltrate.
== END | disposition home or self-care (01) ==
LOC: RADXRMAIN 16:36
PROVIDERS: ATTEND Family Medicine
DX: R91.8 Other nonspecific abnormal finding of lung field (principal); R05 Cough; N18.3 Chronic kidney disease, stage 3 (moderate)
CPT/HCPCS: 36415; 71046; 80053; 81001; 84100; 85027

== ENCOUNTER → 2018-12-19 | Outpatient (CLI) | payer MEDICARE ==
[2018-12-19 14:59] LABS: HCT 36.5 % (34.0-46.0); HGB 11.8 gm/dL (11.4-16.0); MCH 28.8 pg (25.0-35.0); MCHC 32.3 g/dL (31.0-37.0); MCV 89.1 fL (80.0-100.0); Mean Platelet Volume 7.6; Platelet Count 256 k/uL (150-450); RDW 14.5 % (11.5-15.5); WBC 8.3 k/uL (3.8-10.6)
[2018-12-19 15:12] LABS: Hyaline Casts,Urine 26 /lpf (0-2); Mucus,Urine Rare /hpf; RBC,Urine 5 /hpf (0-5); Squamous Epithelial Cell,Urine 1 /hpf (0-4); WBC,Urine 31 /hpf (0-5)
[2018-12-19 15:17] LABS: Appearance,Urine Clear (Clear); Bilirubin,Urine Negative (Negative); Blood,Urine Negative (Negative); Color,Urine Yellow; Glucose,Urine (UA) Negative (Negative); Ketones,Urine Negative (Negative); Leukocyte Esterase,Urine Large (Negative); Nitrite,Urine Negative (Negative); Protein,Urine 2+ (Negative); Specific Gravity,Urine 1.017 (1.001-1.035); Urobilinogen,Urine <2.0 mg/dL (<2.0)
[2018-12-19 18:12] LABS: Vitamin D 25 Hydroxy 26.7 ng/mL (30.0-100.0)
[2018-12-19 18:15] LABS: Magnesium 1.9 mg/dL (1.5-2.4); Phosphorus 4.2 mg/dL (2.4-5.1); Uric Acid 5.8 mg/dL (2.9-7.7)
[2018-12-19 18:16] LABS: Albumin 3.9 g/dL (3.80-4.90); Albumin/Globulin Ratio 2.05 (1.60-3.17); Anion Gap 11.8 mmol/L (4.00-12.00); Calcium 9.5 mg/dL (8.7-10.3); Carbon Dioxide 28.2 mmol/L (21.6-31.8); Globulin 1.9 g/dL (1.6-3.3); Potassium 3.8 mmol/L (3.5-5.5); Total Bilirubin 0.7 mg/dL (0.3-1.2); Total Protein 5.8 g/dL (6.2-8.2)
[2018-12-19 18:23] LABS: Iron Saturation 18.38 (12.00-45.00)
[2018-12-19 19:11] LABS: DNA Double-Stranded Indetermin (NEGATIVE); Hepatitis A Antibody IgM Non-Reactive (Non-Reactive); Hepatitis B Core IgM Non-Reactive (Non-Reactive)
[2018-12-20 14:23] LABS: C-ANCA <1:20 Titer (<1:20); P-ANCA <1:20 Titer (<1:20)
== END ==
LOC: LABWHC1 13:57
PROVIDERS: ATTEND Internal Medicine
DX: N39.0 Urinary tract infection, site not specified (principal); E55.9 Vitamin D deficiency, unspecified; M10.9 Gout, unspecified; N25.81 Secondary hyperparathyroidism of renal origin; D63.1 Anemia in chronic kidney disease; E11.22 Type 2 diabetes mellitus with diabetic chronic kidney disease; N18.3 Chronic kidney disease, stage 3 (moderate); E11.65 Type 2 diabetes mellitus with hyperglycemia; R60.0 Localized edema; R80.9 Proteinuria, unspecified
CPT/HCPCS: 36415; 80053; 80074; 81001; 82043; 82306; 82570; 82728; 83516; 83540; 83550; 83735; 83883; 83970; 84100; 84156; 84550; 85027; 86038; 86160; 86162; 86225; 86255; 86334

== ENCOUNTER 2019-01-06 17:43 | Inpatient (IN) | payer MEDICARE, OTHER ==
--- NOTE | 2019-01-06 18:36 | ED ---
Pediatric SOB HPI - General Chief Complaint: Shortness of Breath Stated Complaint: SOB/High BP Time Seen by Provider: 01/06/19 18:05 Source: patient, RN notes reviewed, old records reviewed Mode of arrival: ambulatory Limitations: no limitations - History of Present Illness Initial Comments: 78-year-old female history of hypertension, chronic kidney disease and diabetes presenting with 1 week of dyspnea. Patient was seen by her primary care physician, thought to have upper respiratory tract infection. She does endorse cough which she states is productive of yellow sputum. Denies fever or chills. She reports some anterior chest tightness. She also reports an 8 pound weight gain. Denies significant lower extremity swelling. Denies abdominal pain. Denies any radiation to her chest pain. She is on eliquis with history of atrial fibrillation. - Related Data Home Medications Medication Instructions Recorded Confirmed Atorvastatin [Lipitor] 80 mg PO HS 06/30/18 01/06/19 Calcium Acetate [PhosLo] 667 mg PO TID 06/30/18 01/06/19 INSULIN LISPRO (humaLOG) [humaLOG] See Protocol SQ AC-TID 06/30/18 01/06/19 ALPRAZolam [Xanax] 0.25 - 0.5 mg PO HS PRN 09/19/18 01/06/19 Levothyroxine Sodium [Synthroid] 125 mcg PO DAILY 11/29/18 01/06/19 glipiZIDE [Glucotrol] 5 mg PO BID 11/29/18 01/06/19 Furosemide [Lasix] 40 mg PO DAILY 01/06/19 01/06/19 Insulin Glargine [Lantus] 20 unit SQ HS 01/06/19 01/06/19 Lisinopril 40 mg PO DAILY 01/06/19 01/06/19 Magnesium Oxide [Mag-Ox] 400 mg PO TID 01/06/19 01/06/19 Potassium Chloride ER [K-Dur 10] 10 meq PO BID 01/06/19 01/06/19 hydrALAZINE HCL [Apresoline] 100 mg PO TID 01/06/19 01/06/19 metFORMIN HCL [Glucophage] 1,000 mg PO BID 01/06/19 01/06/19 Previous Rx's Medication Instructions Recorded Apixaban [Eliquis] 5 mg PO BID #60 tab 07/04/18 Metoprolol Succinate (ER) [Toprol 25 mg PO DAILY #30 tab.er.24h 07/04/18 XL] Albuterol Inhaler [Ventolin Hfa 1 - 2 puff INHALATION RT-Q6H PRN 12/01/18 Inhaler] #1 inhaler Allergies Allergy/AdvReac Type Severity Reaction Status Date / Time azithromycin Allergy Rash/Hives Verified 01/06/19 17:51 [From Zithromax Z-Jeanmarie] methylprednisolone Allergy Unknown Verified 01/06/19 17:51 [From Medrol] Childhood trimethoprim [From Bactrim] Allergy Rash/Hives Verified 01/06/19 17:51 hydrochlorothiazide AdvReac lost Verified 01/06/19 17:51 balance and fell sulfamethoxazole AdvReac Rash/Hives Verified 01/06/19 17:51 [From Bactrim] Review of Systems ROS Statement: Those systems with pertinent positive or pertinent negative responses have been documented in the HPI. ROS Other: All systems not noted in ROS Statement are negative. Past Medical History Past Medical History: Atrial Fibrillation, Coronary Artery Disease (CAD), Cancer, Heart Failure, COPD, CVA/TIA, Diabetes Mellitus, GERD/Reflux, Hyperlipidemia, Hypertension, Pneumonia, Renal Disease, Sleep Apnea/CPAP/BIPAP, Thyroid Disorder Additional Past Medical History / Comment(s): Ecoli UTI with Ecoli bacteremia/severe sepsis, CAP, vaginal yeast infection, Afib RVR and IDDM type II during hospitalization pt's blood sugars went up and [id number] CVA -no residual, IDDM type II, CRD stage III, pneumonia with sepsis/uti with sepsis, metabbolic encephalopathy, DEBBIE without device use, hypothyroid, past Afib wit RVR, vitamin D deficiency, chronic low back pain, frequent constipation. History of Any Multi-Drug Resistant Organisms: None Reported Past Surgical History: Adenoidectomy, Back Surgery, Bariatric Surgery, Cholecystectomy, Heart Catheterization, Hysterectomy, Tonsillectomy Additional Past Surgical History / Comment(s): Cardiac caths , lap band placed/since removed, low back surgery, L carpal tunnel release x2, skin cancer removal, colonoscopies, bilateral cataract removals/lens implants. Past Anesthesia/Blood Transfusion Reactions: No Reported Reaction Past Psychological History: No Psychological Hx Reported Smoking Status: Never smoker Past Alcohol Use History: None Reported Past Drug Use History: None Reported - Past Family History Sister(s) Family Medical History: Myocardial Infarction ([place]) Brother(s) Family Medical History: Cancer Additional Family Medical History / Comment(s): colon Mother Family Medical History: Dementia Additional Family Medical History / Comment(s): Mother of dementia at the age of 89yrs. Father Additional Family Medical History / Comment(s): Pt states her father was treated for a sinus infection but really had leukemia and of this at the age of 72 yrs. General Exam Limitations: no limitations General appearance: alert Head exam: Present: atraumatic, normocephalic Eye exam: Present: normal appearance, PERRL ENT exam: Present: normal exam Neck exam: Present: normal inspection. Absent: tenderness, meningismus Respiratory exam: Present: respiratory distress (mild), rales Cardiovascular Exam: Present: regular rate, normal rhythm GI/Abdominal exam: Present: soft. Absent: distended, tenderness, guarding Extremities exam: Present: normal capillary refill. Absent: pedal edema Neurological exam: Present: alert, oriented X3 Psychiatric exam: Present: normal affect, normal mood Skin exam: Present: warm, dry, intact. Absent: cyanosis, diaphoretic Course Vital Signs 01/06/19 01/06/19 17:46 18:45 Temperature 97.8 F Pulse Rate 90 71 Respiratory 22 18 Rate Blood Pressure 226/97 205/108 O2 Sat by Pulse 97 95 Oximetry - Reevaluation(s) Reevaluation #1: 01/06/19 20:02 EKG: Normal sinus rhythm, rate 74, IN interval 128, QRS duration 102, QTC 452, no ST segment elevation Medical Decision Making - Medical Decision Making 78-year-old female presenting with 1 week of dyspnea and central chest pressure. EKG is sinus rhythm with no ST segment elevation, chest x-rays obtained, concerning for pulmonary edema. Patient has normal CBC, mildly elevated BNP at 1200. Troponin is negative. Patient's given Lasix, aspirin, nitroglycerin. She will be admitted for IV diuresis. She'll be monitored on telemetry. Case discussed with Dr. Patel, we will admit. - Lab Data Result diagrams: 01/06/19 18:10 01/06/19 18:10 Lab Results 01/06/19 01/06/1919 Range/Units 18:10 18:10 18:10 WBC 9.8 (3.8-10.6) k/uL RBC 4.45 (3.80-5.40) m/uL Hgb 12.4 (11.4-16.0) gm/dL Hct 39.0 (34.0-46.0) % MCV 87.6 (80.0-100.0) fL MCH 27.8 (25.0-35.0) pg MCHC 31.7 (31.0-37.0) g/dL RDW 14.3 (11.5-15.5) % Plt Count 316 (150-450) k/uL Neutrophils % 64 % Lymphocytes % 19 % Monocytes % 7 % Eosinophils % 5 % Basophils % 1 % Neutrophils # 6.2 (1.3-7.7) k/uL Lymphocytes # 1.9 (1.0-4.8) k/uL Monocytes # 0.7 (0-1.0) k/uL Eosinophils # 0.5 (0-0.7) k/uL Basophils # 0.1 (0-0.2) k/uL Hypochromasia Slight PT (9.0-12.0) sec INR (<1.2) APTT (22.0-30.0) sec Sodium 141 (137-145) mmol/L Potassium 4.3 (3.5-5.1) mmol/L Chloride 107 (98-107) mmol/L Carbon Dioxide 26 (22-30) mmol/L Anion Gap 8 mmol/L BUN 19 H (7-17) mg/dL Creatinine 1.04 (0.52-1.04) mg/dL Est GFR (CKD-EPI)AfAm 60 (>60 ml/min/1.73 sqM) Est GFR (CKD-EPI)NonAf 52 (>60 ml/min/1.73 sqM) Glucose 239 H (74-99) mg/dL Calcium 9.2 (8.4-10.2) mg/dL Magnesium 1.7 (1.6-2.3) mg/dL Total Bilirubin 0.6 (0.2-1.3) mg/dL AST 25 (14-36) U/L ALT 24 (9-52) U/L Alkaline Phosphatase 93 (38-126) U/L Troponin I (0.000-0.034) ng/mL NT-Pro-B Natriuret Pep 1210 pg/mL Total Protein 7.0 (6.3-8.2) g/dL Albumin 4.0 (3.5-5.0) g/dL 01/06/19 01/06/19 Range/Units 18:10 18:10 WBC (3.8-10.6) k/uL RBC (3.80-5.40) m/uL Hgb (11.4-16.0) gm/dL Hct (34.0-46.0) % MCV (80.0-100.0) fL MCH (25.0-35.0) pg MCHC (31.0-37.0) g/dL RDW (11.5-15.5) % Plt Count (150-450) k/uL Neutrophils % % Lymphocytes % % Monocytes % % Eosinophils % % Basophils % % Neutrophils # (1.3-7.7) k/uL Lymphocytes # (1.0-4.8) k/uL Monocytes # (0-1.0) k/uL Eosinophils # (0-0.7) k/uL Basophils # (0-0.2) k/uL Hypochromasia PT 10.5 (9.0-12.0) sec INR 1.0 (<1.2) APTT 24.6 (22.0-30.0) sec Sodium (137-145) mmol/L Potassium (3.5-5.1) mmol/L Chloride (98-107) mmol/L Carbon Dioxide (22-30) mmol/L Anion Gap mmol/L BUN (7-17) mg/dL Creatinine (0.52-1.04) mg/dL Est GFR (CKD-EPI)AfAm (>60 ml/min/1.73 sqM) Est GFR (CKD-EPI)NonAf (>60 ml/min/1.73 sqM) Glucose (74-99) mg/dL Calcium (8.4-10.2) mg/dL Magnesium (1.6-2.3) mg/dL Total Bilirubin (0.2-1.3) mg/dL AST (14-36) U/L ALT (9-52) U/L Alkaline Phosphatase (38-126) U/L Troponin I 0.013 (0.000-0.034) ng/mL NT-Pro-B Natriuret Pep pg/mL Total Protein (6.3-8.2) g/dL Albumin (3.5-5.0) g/dL Critical Care Time Critical Care Time: Yes Total Critical Care Time: 35 Disposition Clinical Impression: CHF (congestive heart failure), Hypertensive CHF Disposition: ADMITTED IP TO THIS [facility] Condition: Stable Is patient prescribed a controlled substance at d/c from ED?: No Referrals: Melly Alvares MD [Primary Care Provider] - 1-2 days Decision to Admit Reason: Admit from EC Decision Date: 01/06/19 Decision Time: 20:04
[2019-01-06] MEDS ORDERED: NITROGLYCERIN SL TABS 0.4 MG TAB SUBLINGUAL STA (18:43)
[2019-01-06 18:56] LABS: Basophils # (A) 0.1 k/uL (0-0.2); Basophils % (A) 1 %; Eosinophils # (A) 0.5 k/uL (0-0.7); Eosinophils % (A) 5 %; HGB 12.4 gm/dL (11.4-16.0); Hypochromasia Slight; Lymphocytes # (A) 1.9 k/uL (1.0-4.8); Lymphocytes % (A) 19 %; MCH 27.8 pg (25.0-35.0); MCHC 31.7 g/dL (31.0-37.0); MCV 87.6 fL (80.0-100.0); Mean Platelet Volume 7.3; Monocytes # (A) 0.7 k/uL (0-1.0); Monocytes % (A) 7 %; Neutrophils # (A) 6.2 k/uL (1.3-7.7); Neutrophils % (A) 64 %; Platelet Count 316 k/uL (150-450); RBC 4.45 m/uL (3.80-5.40); RDW 14.3 % (11.5-15.5); WBC 9.8 k/uL (3.8-10.6)
[2019-01-06 18:59] LABS: Calcium 9.2 mg/dL (8.4-10.2); Magnesium 1.7 mg/dL (1.6-2.3); Potassium 4.3 mmol/L (3.5-5.1); Total Bilirubin 0.6 mg/dL (0.2-1.3)
[2019-01-06 19:17] LABS: Partial Thromboplastin Time 24.6 sec (22.0-30.0); Prothrombin Time 10.5 sec (9.0-12.0)
--- NOTE | 2019-01-06 19:18 | XR ---
EXAMINATION TYPE: XR chest 2V DATE OF EXAM: 01/06/2019 COMPARISON: 12/04/2018 HISTORY: Chest pain TECHNIQUE: Frontal and lateral views of the chest are obtained. FINDINGS: There is coarsening of the lung markings. There is suboptimal inspiration. There are chest leads. Bony thorax is intact. Lungs are clear of consolidation. IMPRESSION: There is new mild interstitial edema compared to old exam . This could be acute intersti tial pneumonia. No significant pulmonary congestion seen to suggest heart failure.
[2019-01-06] MEDS ORDERED: FUROSEMIDE 10 MG/ML 4 ML VIAL IV STA (19:51)
[2019-01-06] MEDS ORDERED: ASPIRIN 325 MG TAB PO STA (19:51)
[2019-01-06] MEDS ORDERED: NALOXONE 0.4 MG/ML 1 ML VIAL IV PRN (20:00)
[2019-01-06] MEDS ORDERED: NITROGLYCERIN-D5W PMX 50 MG in DEXTROSE/WATER 1 250ML.BAG IV ONE (20:02)
[2019-01-07] MEDS ORDERED: ALPRAZolam 0.5 MG TAB PO PRN
[2019-01-07] MEDS ORDERED: ALBUTEROL NEBULIZED 2.5 MG/3 ML INHALATION PRN
--- NOTE | 2019-01-07 00:18 | P.HPIM ---
History of Present Illness H&P Date: 01/06/19 The patient is a 78 yo F with a PMH of Afib on Eliquis, CAD, CHF, COPD, DM, HTN, HLD, and CKD stage 3 presented to the ED for dypsnea on-going for the past 1 week which worsened earlier today. She endorsed some associated chest tightness along with a cough on-going for years which is productive w/ yellow phlegm. She reports that her BP at home has been consistently high. She has been following with Dr José for her CKD and reports that she is already on multiple antihypertensives and was started on Hydralazine recently though she continued to have increased BP at home which was alarming, along with the SOB, which triggered her to come to the ED. She denied LE swelling, nausea, vomiting, pa lpitations, fever, or chills. She further denied abdominal pain, diarrhea, or constipation. She underwent an extensive evaluation in the ED w/ initial admission vitals BP 226/97, pulse 90, afebrile at 97.8, with SpO2 97% on RA. WBC count 9.8, Hgb 12.4, CXR showing pulmonary edema, BNP 1210, Troponin 0.013, w/ Creatinine 1.04 Review of Systems Pertinent positives and negatives as discussed in HPI, a complete review of systems was performed and all other systems are negative. Past Medical History Past Medical History: Atrial Fibrillation, Coronary Artery Disease (CAD), Cancer, Heart Failure, COPD, CVA/TIA, Diabetes Mellitus, GERD/Reflux, Hyperlipidemia, Hypertension, Pneumonia, Renal Disease, Sleep Apnea/CPAP/BIPAP, Thyroid Disorder Additional Past Medical History / Comment(s): Ecoli UTI with Ecoli bacteremia/severe sepsis, CAP, vaginal yeast infection, Afib RVR and IDDM type II during hospitalization pt's blood sugars went up and [id number] CVA -no residual, IDDM type II, CRD stage III, pneumonia with sepsis/uti with sepsis, metabbolic encephalopathy, DEBBIE without device use, hypothyroid, past Afib wit RVR, vitamin D deficiency, chronic low back pain, frequent constipation. History of Any Multi-Drug Resistant Organisms: None Reported Past Surgical History: Adenoidectomy, Back Surgery, Bariatric Surgery, Cholecystectomy, Heart Catheterization, Hysterectomy, Tonsillectomy Additional Past Surgical History / Comment(s): Cardiac caths , lap band placed/since removed, low back surgery, L carpal tunnel release x2, skin cancer removal, colonoscopies, bilateral cataract removals/lens implants. Past Anesthesia/Blood Transfusion Reactions: No Reported Reaction Past Psychological History: No Psychological Hx Reported Additional Psychological History / Comment(s): Pt resides with Brandon Almaraz, brother in law. She is independent. Smoking Status: Never smoker Past Alcohol Use History: None Reported Past Drug Use History: None Reported - Past Family History Sister(s) Family Medical History: Myocardial Infarction ([place]) Brother(s) Family Medical History: Cancer Additional Family Medical History / Comment(s): colon Mother Family Medical History: Dementia Additional Family Medical History / Comment(s): Mother of dementia at the age of 89yrs. Father Additional Family Medical History / Comment(s): Pt states her father was treated for a sinus infection but really had leukemia and of this at the age of 72 yrs. Medications and Allergies Home Medications Medication Instructions Recorded Confirmed Type Atorvastatin [Lipitor] 80 mg PO HS 06/30/18 01/06/19 History Calcium Acetate [PhosLo] 667 mg PO TID 06/30/18 01/06/19 History INSULIN LISPRO (humaLOG) [humaLOG] See Protocol SQ AC-TID 06/30/18 01/06/19 History Apixaban [Eliquis] 5 mg PO BID #60 tab 07/04/18 01/06/19 Rx Metoprolol Succinate (ER) [Toprol 25 mg PO DAILY #30 tab.er.24h 07/04/18 01/06/19 Rx XL] ALPRAZolam [Xanax] 0.25 - 0.5 mg PO HS PRN 09/19/18 01/06/19 History Levothyroxine Sodium [Synthroid] 125 mcg PO DAILY 11/29/18 01/06/19 History glipiZIDE [Glucotrol] 5 mg PO BID 11/29/18 01/06/19 History Albuterol Inhaler [Ventolin Hfa 1 - 2 puff INHALATION RT-Q6H PRN 12/01/18 01/06/19 Rx Inhaler] #1 inhaler Furosemide [Lasix] 40 mg PO DAILY 01/06/19 01/06/19 History Insulin Glargine [Lantus] 20 unit SQ HS 01/06/19 01/06/19 History Lisinopril 40 mg PO DAILY 01/06/19 01/06/19 History Magnesium Oxide [Mag-Ox] 400 mg PO TID 01/06/19 01/06/19 History Potassium Chloride ER [K-Dur 10] 10 meq PO BID 01/06/19 01/06/19 History hydrALAZINE HCL [Apresoline] 100 mg PO TID 01/06/19 01/06/19 History metFORMIN HCL [Glucophage] 1,000 mg PO BID 01/06/19 01/06/19 History Allergies Allergy/AdvReac Type Severity Reaction Status Date / Time azithromycin Allergy Rash/Hives Verified 01/06/19 17:51 [From Zithromax Z-Jeanmarie] methylprednisolone Allergy Unknown Verified 01/06/19 17:51 [From Medrol] Childhood trimethoprim [From Bactrim] Allergy Rash/Hives Verified 01/06/19 17:51 hydrochlorothiazide AdvReac lost Verified 01/06/19 17:51 balance and fell sulfamethoxazole AdvReac Rash/Hives Verified 01/06/19 17:51 [From Bactrim] Physical Exam Vitals: Vital Signs Temp Pulse Pulse Resp BP BP Pulse Ox 01/06/19 21:03 76 18 167/83 97 01/06/19 20:40 98.1 F 66 18 183/84 95 01/06/19 20:21 68 18 192/98 96 01/06/19 18:45 71 18 205/108 95 01/06/19 17:46 97.8 F 90 22 226/97 97 Intake and Output 01/06/19 01/06/19 01/07/19 14:59 22:59 06:59 Other: # Voids 1 Weight 94 kg General: non toxic, no distress, appears at stated age, obese Derm: no unusual rashes/lesions no unusual ecchymoses, warm, dry Head: atraumatic, normocephalic, symmetric Eyes: EOMI, no lid lag, anicteric sclera, pupils equal round reactive to light ENT: Nose and ears atraumatic, no thrush, no pharyngeal erythema Neck: No thyromegaly, no cervical lymphadenopathy, trachea midline, supple Mouth: no lip lesion, mucus membranes moist Cardiovascular: Irregularly irregular, no murmur, positive posterior tibial pulse bilateral, no edema, capillary refill less than 2 seconds Lungs: Bilateral rails, no rhonchi or coarse breath sounds, no accessory muscle use Abdominal: soft, nontender to palpation, no guarding, no appreciable organomegaly, normal bowel sounds Ext: no gross muscle atrophy, muscle strength 5 out of 5 in all 4 extremities grossly, no contractures, Neuro: CN II-XI grossly intact, light touch intact all 4 extremities, finger to nose within normal limits, Psych: Alert, oriented, appropriate affect Results CBC & Chem 7: 01/06/19 18:10 01/06/19 18:10 Labs: Abnormal Lab Results - Last 24 Hours (Table) 01/06/19 Range/Units 18:10 BUN 19 H (7-17) mg/dL Glucose 239 H (74-99) mg/dL Thrombosis Risk Factor Assmnt - Choose All That Apply Any of the Below Risk Factors Present?: Yes Each Factor Represents 1 point: Heart failure (<1month), Obesity (BMI >25), Serious lung disease incl. pneumonia (< 1month), Varicose veins Other Risk Factors: Yes Each Risk Factor Represents 3 Points: Age 75 years or older Other congenital or acquired thrombophilia - If yes, enter type in comment: No Thrombosis Risk Factor Assessment Total Risk Factor Score: 7 Thrombosis Risk Factor Assessment Level: High Risk Assessment and Plan Plan: Hypertensive urgency, with flash pulmonary edema -C/w Nitro drip for now -Resume home medications -C/w lasix Paroxysmal Afib -C/w Eliquis Diabetes Mellitus -C/w 16 U of Levemir (20 U qhs at home) -Blood glucose monitoring -YOGI Chronic conditions: COPD, GERD, HLD, CKD -Resume home meds DVT prophylaxis -Eliquis The patient is admitted with an anticipated more than 2 midnight stay for evaluation of HTN urgency . CODE STATUS:No Code w/ instructions Discussed with: Patient Anticipated discharge date: 01/09/[address]: Home A total of 40 minutes was spent on the care of this complex patient more than 50% of the time was spent in counseling and care coordination.
[2019-01-07 06:36] LABS: Glucose,Whole Blood 254 mg/dL (75-99)
[2019-01-07] MEDS: INSULIN ASPART (NovoLOG) 100 UNIT/ML VIAL SQ SCH ×5 (06:50→21:05)
[2019-01-07] MEDS: LEVOTHYROXINE 125 MCG TAB PO SCH (06:50)
[2019-01-07] MEDS ORDERED: hydrALAZINE HCL 50 MG TAB PO STA (06:55)
[2019-01-07] MEDS ORDERED: INSULIN DETEMIR (LEVEMIR) 100 UNIT/ML SYR SQ ONE (07:30)
[2019-01-07] MEDS: FUROSEMIDE 10 MG/ML 4 ML VIAL IV SCH ×2 (08:37→21:14)
[2019-01-07] MEDS: CALCIUM ACETATE 667 MG CAP PO SCH ×3 (08:38→21:14)
[2019-01-07] MEDS: METOPROLOL SUCCINATE (ER) 25 MG TAB.ER.24H PO SCH (08:38)
[2019-01-07] MEDS: APIXABAN 5 MG TAB PO SCH ×2 (08:38→21:14)
[2019-01-07] MEDS: LISINOPRIL 20 MG TAB PO SCH (08:38)
[2019-01-07] MEDS: hydrALAZINE HCL 50 MG TAB PO SCH ×4 (08:50→22:16)
[2019-01-07] MEDS ORDERED: amLODIPine 5 MG TAB PO SCH (09:00)
[2019-01-07] MEDS ORDERED: cloNIDine HCL 0.1 MG TAB PO STA (10:27)
--- NOTE | 2019-01-07 10:45 | P.PN ---
Subjective Progress Note Date: 01/07/19 Principal diagnosis: shortness of breath Patient is a 78-year-old female past medical history of A. fib on eloquent, diabetes, CHF, coronary artery disease, COPD, hypertension, dyslipidemia, and TKD stage III who presented to the ER with complaints of this and. Per patient her shortness of breath has been going on for 3 weeks and she was diagnosed with an upper respiratory tract infection by her family physician. She has been struggling with hypertension over the last [address] Mercedes's office and he added hydralazine 100 mg 3 times daily. Yesterday she noted that her blood pressure was elevated. She had contacted Dr. Hernandez prescribed Norvasc but she has yet to pick it up. She then began checking her blood pressure every hour and he continued to go up so she presented to the hospital. In the emergency department she underwent an extensive evaluation. On arrival her blood pressure is 226/97 with a map of 140. Chest x-ray showed fluid overload. BNP was normal for her age. She was diagnosed with pulmonary edema secondary to hypertensive urgency. She was given a dose of Lasix was started on a nitro drip. She was admitted to the cardiac floor. Her home medications of hydralazine, lisinopril, and metoprolol were added. On the morn ing of 01/07 she wasnot tolerating the nitro gtt and her SBP was 196. Patient seen and examined at bedside. Complains of a headache and a bad taste in her month. She feels off and hasn't been able to sleep. Breathing is better, + constipation, no nausea. Objective - Vital Signs Vital signs: Vital Signs Temp 97.7 F 01/07/19 08:00 Pulse 60 01/07/19 08:00 Resp 18 01/07/19 08:00 BP 183/83 01/07/19 08:00 Pulse Ox 96 01/07/19 08:47 Intake & Output 01/06/19 01/07/19 01/07/19 18:59 06:59 18:59 Intake Total 240 Output Total 250 Balance -250 240 Weight 93.894 kg 89 kg Intake: Oral 240 Output: Urine 250 Other: Voiding Method Toilet # Voids 1 - Exam General: non toxic, no distress, appears at stated age Derm: warm, dry Head: atraumatic, normocephalic, symmetric Eyes: EOMI, no lid lag, anicteric sclera Mouth: no lip lesion, mucus membranes moist Cardiovascular: S1S2 reg, with systolic ejection murmur, positive posterior tibial pulse bilateral, Lungs: + ronchi bilateral] , no accessory muscle use Abdominal: soft, nontender to palpation, no guarding, no appreciable organomegaly Ext: no gross muscle atrophy, no edema, no contractures Neuro: CN II-XI grossly intact, no focal neuro deficits Psych: Alert, oriented, appropriate affect - Labs CBC & Chem 7: 01/06/19 18:10 01/06/19 18:10 Labs: Abnormal Lab Results - Last 24 Hours (Table) 01/06/19 01/07/19 Range/Units 18:10 06:35 BUN 19 H (7-17) mg/dL Glucose 239 H (74-99) mg/dL POC Glucose (mg/dL) 254 H (75-99) mg/dL Assessment and Plan Assessment: Hypertensive urgency with flash pulmonary edema - catpress 0.1 X 1 now, patient will also take her hydralazine - Lasix IVP, repeat CXR in AM - on metoprolol, norvasc, and lisinopril - titrate off nitro gtt - Consult nephro for help with hypertensive management - obtain outpatient stress test records Aortic stenosis - recheck echo DM 2 with hyperglycemia - levimir 5 units now and 12 units tonight, SSI, metformin and Glucotrol on hold - SSI - A1C 10.2 in Sep will recheck HLD -Statin P. A fib - metoprolol - eliquis COPD withour exacerbation - prn albuterol Hypothyroidism - synthroid - check TSH DVT prophylaxis: eliquis Discussed with: patient, family, nursing Anticipated discharge: 1-[address]: home with home health A total of 35 minutes was spent on the care of this complex patient more than 50% of the time was spent in counseling and care coordination.
[2019-01-07 11:56] LABS: Glucose,Whole Blood 223 mg/dL (75-99)
--- NOTE | 2019-01-07 12:52 | ECHOF ---
Referral Reason:CHF, aortic stenosis MEASUREMENTS -------- HEIGHT: 162.6 cm WEIGHT: 88.9 kg BP: 185/95 RVIDd: 2.9 cm (< 3.3) IVSd: 1.7 cm (0.6 - 1.1) LVIDd: 4.0 cm (3.9 - 5.3) LVPWd: 1.7 cm (0.6 - 1.1) IVSs: 1.9 cm LVIDs: 2.6 cm LVPWs: 1.8 cm LA Diam: 3.8 cm (2.7 - 3.8) LAESV Index (A-L): 33.73 ml/m Ao Diam: 3.0 cm (2.0 - 3.7) AV Cusp: 1.3 cm (1.5 - 2.6) MV EXCURSION: 11.063 mm (> 18.000) MV EF SLOPE: 24 mm/s (70 - 150) EPSS: 0.7 cm MV E Joel: 1.11 m/s MV DecT: 297 ms MV A Joel: 1.27 m/s MV E/A Ratio: 0.87 AV maxP.43 mmHg AV meanP.70 mmHg AR PHT: 791 ms RAP: 5.00 mmHg RVSP: 27.32 mmHg FINDINGS -------- Sinus rhythm. This was a technically good study. The left ventricular size is normal. There is severe concentric left ventricular hypertrophy. Ove rall left ventricular systolic function is normal with, an EF between 60 - 65 %. The right ventricle is normal in size. LA is midly dilated 29-33ml/m2. The right atrium is normal in size. Interatrial and interventricular septum intact. There is mild aortic valve sclerosis. There is mild aortic regurgitation. There is mild aortic st enosis present. Peak/mean gradient across the Aortic Valve is 33.43mmHg / 18.70mmHg. The mitral valve leaflets are mildly thickened. Mild mitral annular calcification present. Mild m itral regurgitation is present. Mild tricuspid regurgitation present. Right ventricular systolic pressure is normal at < 35 mmHg. The pulmonic valve was not well visualized. The aortic root size is normal. Normal inferior vena cava with normal inspiratory collapse consistent with estimated right atrial pre ssure of 5 mmHg. The inferior vena cava is mildly dilated. There is no pericardial effusion. CONCLUSIONS -------- 1. Sinus rhythm. 2. This was a technically good study. 3. The left ventricular size is normal. 4. There is severe concentric left ventricular hypertrophy. 5. Overall left ventricular systolic function is normal with, an EF between 60 - 65 %. 6. The right ventricle is normal in size. 7. LA is midly dilated 29-33ml/m2. 8. The right atrium is normal in size. 9. Interatrial and interventricular septum intact. 10. There is mild aortic valve sclerosis. 11. There is mild aortic regurgitation. 12. There is mild aortic stenosis present. 13. Peak/mean gradient across the Aortic Valve is 33.43mmHg / 18.70mmHg. 14. The mitral valve leaflets are mildly thickened. 15. Mild mitral annular calcification present. 16. Mild mitral regurgitation is present. 17. Mild tricuspid regurgitation present. 18. Right ventricular systolic pressure is normal at < 35 mmHg. 19. The pulmonic valve was not well visualized. 20. The aortic root size is normal. 21. Normal inferior vena cava with normal inspiratory collapse consistent with estimated right atrial pressure of 5 mmHg. 22. The inferior vena cava is mildly dilated. 23. There is no pericardial effusion. INDUSTRIAL CHEMISTRY TEACHER: Mary Montoya RDCS
--- NOTE | 2019-01-07 13:05 | P.NPCON ---
History of Present Illness - Reason for Consult chronic renal failure, accelerated hypertension - History of Present Illness Reason for consultation: Chronic kidney disease and hypertensive urgency History of present illness: Patient is a 78-year-old female seen in consultation for chronic kidney disease and hypertensive urgency. Patient has chronic kidney disease stage III secondary to diabetic kidney disease with baseline creatinine in the range of 1- 1.3. Patient also has long-standing history of high blood pressure. Patient states she had an upper respiratory infection and was evaluated by her PCP. She was not on any antibiotics. She denies any fever. Does admit to a productive cough with yellow sputum. Patient states her blood pressure has been running in the systolic 170s to 180s. She did increase the hydralazine to 4 times a day with no improvement in her blood pressure. She then decided to come to the hospital. She is currently maintained on a nitroglycerin drip. She denies chest pain. Does admit to shortness of breath. Chest x-ray was suggestive of vascular congestion. She is also on IV Lasix at this time. Good urine output. No hematuria or dysuria. GFR is at baseline. Vital signs are stable. General: The patient appeared well nourished and normally developed. HEENT: Head exam is unremarkable. Neck is without jugular venous distension. LUNGS: Lungs are clear to auscultation and percussion. Breath sounds decreased. HEART: Rate and Rhythm are regular. First and second heart sounds normal. No murmurs, rubs or gallops. ABDOMEN: Abdominal exam reveals normal bowel sounds. Non-tender and non- distended. No evidence of peritonitis. EXTREMITITES: No clubbing, cyanosis, or edema. Past Medical History Past Medical History: Atrial Fibrillation, Coronary Artery Disease (CAD), Cancer, Heart Failure, COPD, CVA/TIA, Diabetes Mellitus, GERD/Reflux, Hyperlipidemia, Hypertension, Pneumonia, Renal Disease, Sleep Apnea/CPAP/BIPAP, Thyroid Disorder Additional Past Medical History / Comment(s): Ecoli UTI with Ecoli bacteremia/severe sepsis, CAP, vaginal yeast infection, Afib RVR and IDDM type II during hospitalization pt's blood sugars went up and [id number] CVA -no residual, IDDM type II, CRD stage III, pneumonia with sepsis/uti with sepsis, metabbolic encephalopathy, DEBBIE without device use, hypothyroid, past Afib wit RVR, vitamin D deficiency, chronic low back pain, frequent constipation. History of Any Multi-Drug Resistant Organisms: None Reported Past Surgical History: Adenoidectomy, Back Surgery, Bariatric Surgery, Cholecystectomy, Heart Catheterization, Hysterectomy, Tonsillectomy Additional Past Surgical History / Comment(s): Cardiac caths , lap band placed/since removed, low back surgery, L carpal tunnel release x2, skin cancer removal, colonoscopies, bilateral cataract removals/lens implants. Past Anesthesia/Blood Transfusion Reactions: No Reported Reaction Past Psychological History: No Psychological Hx Reported Additional Psychological History / Comment(s): Pt resides with Brandon Almaraz, brother in law. She is independent. Smoking Status: Never smoker Past Alcohol Use History: None Reported Past Drug Use History: None Reported - Past Family History Sister(s) Family Medical History: Myocardial Infarction ([place]) Brother(s) Family Medical History: Cancer Additional Family Medical History / Comment(s): colon Mother Family Medical History: Dementia Additional Family Medical History / Comment(s): Mother of dementia at the age of 89yrs. Father Additional Family Medical History / Comment(s): Pt states her father was treated for a sinus infection but really had leukemia and of this at the age of 72 yrs. Medications and Allergies Home Medications Medication Instructions Recorded Confirmed Type Atorvastatin [Lipitor] 80 mg PO HS 06/30/18 01/06/19 History Calcium Acetate [PhosLo] 667 mg PO TID 06/30/18 01/06/19 History INSULIN LISPRO (humaLOG) [humaLOG] See Protocol SQ AC-TID 06/30/18 01/06/19 History Apixaban [Eliquis] 5 mg PO BID #60 tab 07/04/18 01/06/19 Rx Metoprolol Succinate (ER) [Toprol 25 mg PO DAILY #30 tab.er.24h 07/04/18 01/06/19 Rx XL] ALPRAZolam [Xanax] 0.25 - 0.5 mg PO HS PRN 09/19/18 01/06/19 History Levothyroxine Sodium [Synthroid] 125 mcg PO DAILY 11/29/18 01/06/19 History glipiZIDE [Glucotrol] 5 mg PO BID 11/29/18 01/06/19 History Albuterol Inhaler [Ventolin Hfa 1 - 2 puff INHALATION RT-Q6H PRN 12/01/18 01/06/19 Rx Inhaler] #1 inhaler Furosemide [Lasix] 40 mg PO DAILY 01/06/19 01/06/19 History Insulin Glargine [Lantus] 20 unit SQ HS 01/06/19 01/06/19 History Lisinopril 40 mg PO DAILY 01/06/19 01/06/19 History Magnesium Oxide [Mag-Ox] 400 mg PO TID 01/06/19 01/06/19 History Potassium Chloride ER [K-Dur 10] 10 meq PO BID 01/06/19 01/06/19 History hydrALAZINE HCL [Apresoline] 100 mg PO TID 01/06/19 01/06/19 History metFORMIN HCL [Glucophage] 1,000 mg PO BID 01/06/19 01/06/19 History Allergies Allergy/AdvReac Type Severity Reaction Status Date / Time azithromycin Allergy Rash/Hives Verified 01/06/19 17:51 [From Zithromax Z-Jenamarie] methylprednisolone Allergy Unknown Verified 01/06/19 17:51 [From Medrol] Childhood trimethoprim [From Bactrim] Allergy Rash/Hives Verified 01/06/19 17:51 hydrochlorothiazide AdvReac lost Verified 01/06/19 17:51 balance and fell sulfamethoxazole AdvReac Rash/Hives Verified 01/06/19 17:51 [From Bactrim] Physical Exam Vitals: Vital Signs Temp Pulse Pulse Resp BP BP Pulse Ox 01/07/19 12:00 97.9 F 58 L 17 185/79 95 01/07/19 08:47 96 01/07/19 08:00 97.7 F 60 18 183/83 96 01/07/19 04:00 65 16 179/77 94 L 01/07/19 01:00 74 18 154/68 92 L 01/06/19 23:45 72 16 135/61 93 L 01/06/19 21:03 76 18 167/83 97 01/06/19 20:40 98.1 F 66 18 183/84 95 01/06/19 20:21 68 18 192/98 96 01/06/19 18:45 71 18 205/108 95 01/06/19 17:46 97.8 F 90 22 226/97 97 Intake and Output 01/06/19 01/07/19 01/07/19 22:59 06:59 14:59 Intake Total 480 Output Total 250 Balance -250 480 Intake: Oral 480 Output: Urine 250 Other: Voiding Method Toilet Toilet # Voids 1 Weight 94 kg 89 kg Results - Lab Results Most recent lab results Calcium 9.2 mg/dL (8.4-10.2) 01/06/19 18:10 Magnesium 1.7 mg/dL (1.6-2.3) 01/06/19 18:10 01/06/19 18:10 01/06/19 18:10 Assessment and Plan Plan: Assessment: 1. Chronic kidney disease stage III secondary to diabetic kidney disease. His creatinine in the range of 1-1.3. GFR at baseline. 2. Hypertensive urgency currently on nitroglycerin drip. 3. Dyspnea secondary to vascular congestion/pulmonary edema. 4. Insulin-dependent diabetes mellitus. 5. Diastolic CHF. Plan: Maintain current antihypertensives. Increase amlodipine to 5 mg twice daily. Maintain IV Lasix 40 mg twice daily for now. Check renal ultrasound with Doppler. Check plasma metanephrines, renin and aldosterone. Continue to monitor renal function and urine output. Wean nitroglycerin drip. Thank you for the consultation. I will continue to follow the patient with you during her hospital stay.
[2019-01-07] MEDS ORDERED: INSULIN ASPART (NovoLOG) 100 UNIT/ML VIAL SQ ONE (13:59)
[2019-01-07] MEDS ORDERED: POLYETHYLENE GLYCOL 3350 17 GM POWD.PACK PO STA (14:06)
[2019-01-07 14:10] LABS: Hemoglobin A1C 9.7 % (4.0-6.0)
[2019-01-07 17:00] LABS: Glucose,Whole Blood 208 mg/dL (75-99)
[2019-01-07] MEDS ORDERED: ATORVASTATIN 80 MG TAB PO SCH (21:00)
[2019-01-07] MEDS ORDERED: INSULIN DETEMIR (LEVEMIR) 100 UNIT/ML SYR SQ SCH ×2 (21:00)
[2019-01-07 21:02] LABS: Glucose,Whole Blood 109 mg/dL (75-99)
[2019-01-07] MEDS: amLODIPine 5 MG TAB PO SCH (21:15)
[2019-01-08 01:07] LABS: Glucose,Whole Blood 219 mg/dL (75-99)
[2019-01-08 06:21] LABS: Glucose,Whole Blood 214 mg/dL (75-99)
[2019-01-08] MEDS: INSULIN ASPART (NovoLOG) 100 UNIT/ML VIAL SQ SCH ×4 (06:27→12:21)
[2019-01-08] MEDS: LEVOTHYROXINE 125 MCG TAB PO SCH (06:45)
[2019-01-08 06:59] LABS: Calcium 8.9 mg/dL (8.4-10.2); Magnesium 1.6 mg/dL (1.6-2.3); Potassium 3.9 mmol/L (3.5-5.1)
[2019-01-08 08:33] VITALS: RESP 19
[2019-01-08] MEDS: FUROSEMIDE 10 MG/ML 4 ML VIAL IV SCH (08:33)
[2019-01-08] MEDS: CALCIUM ACETATE 667 MG CAP PO SCH ×2 (08:34→16:17)
[2019-01-08] MEDS: APIXABAN 5 MG TAB PO SCH (08:34)
[2019-01-08] MEDS: hydrALAZINE HCL 50 MG TAB PO SCH ×2 (08:34→16:16)
[2019-01-08] MEDS: METOPROLOL SUCCINATE (ER) 25 MG TAB.ER.24H PO SCH (08:34)
[2019-01-08] MEDS: amLODIPine 5 MG TAB PO SCH (08:34)
[2019-01-08] MEDS: LISINOPRIL 20 MG TAB PO SCH (08:34)
[2019-01-08] MEDS ORDERED: POLYETHYLENE GLYCOL 3350 17 GM POWD.PACK PO SCH (09:00)
--- NOTE | 2019-01-08 09:07 | US ---
EXAMINATION TYPE: US renal artery duplex complete DATE OF EXAM: 01/08/2019 COMPARISON: Prev renal only CLINICAL HISTORY: clarissa, hypertension. HTN MEASUREMENTS: RENAL SIZE: Rt Kidney: 10.2 x 5.2 x 4.8 cm Lt Kidney: 11.5 x 4.5 x 3.4 cm RESISTANCE INDEX Right: 0.7 Left: 0.7 RA/AO RATIO (< 3.5 ) Right: 1.4 Left: 1.3 RA VELOCITY ( < 180 cm/s) Right: 90 Left: 84 No evidence of significant renal artery stenosis/hyperechoic lesion lower pole of left kidney= 0.9 cm IMPRESSION: No evidence of renal artery stenosis. There is a hyperechoic 9 mm lesion in the lower pole left kidne y for which CT scan is suggested.
[2019-01-08 11:38] LABS: Glucose,Whole Blood 383 mg/dL (75-99)
[2019-01-08 11:47] VITALS: BMI 34.5
[2019-01-08] MEDS: MAGNESIUM SULFATE-D5W PMX 1 GM in DEXTROSE/WATER 1 100ML.BAG IVPB SCH ×2 (12:20→13:09)
--- NOTE | 2019-01-08 12:27 | P.PN ---
Subjective Patient is seen in follow-up for acute kidney injury on chronic kidney disease. Patient has chronic kidney disease stage III with baseline creatinine the range of 1-1.3. Renal function is a little worse today which is due to diuresis. Denies chest pain or shortness of breath. Urine output is good. Blood pressures better controlled. Patient is quite anxious. Vital signs are stable. General: The patient appeared well nourished and normally developed. HEENT: Head exam is unremarkable. Neck is without jugular venous distension. LUNGS: Lungs are clear to auscultation and percussion. Breath sounds decreased. HEART: Rate and Rhythm are regular. First and second heart sounds normal. No murmurs, rubs or gallops. ABDOMEN: Abdominal exam reveals normal bowel sounds. Non-tender and non- distended. No evidence of peritonitis. EXTREMITITES: No clubbing, cyanosis, or edema. Objective - Vital Signs Vital signs: Vital Signs Temp 97.9 F 01/08/19 08:00 Pulse 63 01/08/19 08:00 Resp 19 01/08/19 08:00 BP 166/74 01/08/19 08:00 Pulse Ox 98 01/08/19 08:00 Intake & Output 01/07/19 01/08/19 01/08/19 18:59 06:59 18:59 Intake Total 720 Output Total 500 300 Balance 220 -300 Weight 91.4 kg 91.4 kg Intake: Oral 720 Output: Urine 500 300 Other: Voiding Method Toilet # Voids 1 - Labs CBC & Chem 7: 01/06/19 18:10 01/08/19 06:30 Labs: Abnormal Lab Results - Last 24 Hours (Table) 01/06/19 01/07/19 01/07/19 Range/Units 18:10 16:42 20:59 Carbon Dioxide (22-30) mmol/L BUN (7-17) mg/dL Creatinine (0.52-1.04) mg/dL Glucose (74-99) mg/dL POC Glucose (mg/dL) 208 H 109 H (75-99) mg/dL Hemoglobin A1c 9.7 H (4.0-6.0) % 01/08/19 01/08/19 01/08/19 Range/Units 01:05 06:20 06:30 Carbon Dioxide 32 H (22-30) mmol/L BUN 22 H (7-17) mg/dL Creatinine 1.24 H (0.52-1.04) mg/dL Glucose 212 H (74-99) mg/dL POC Glucose (mg/dL) 219 H 214 H (75-99) mg/dL Hemoglobin A1c (4.0-6.0) % 01/08/19 Range/Units 11:31 Carbon Dioxide (22-30) mmol/L BUN (7-17) mg/dL Creatinine (0.52-1.04) mg/dL Glucose (74-99) mg/dL POC Glucose (mg/dL) 383 H (75-99) mg/dL Hemoglobin A1c (4.0-6.0) % Assessment and Plan Plan: Assessment: 1. Chronic kidney disease stage III secondary to diabetic kidney disease. His creatinine in the range of 1-1.3. GFR at baseline. 2. Hypertensive urgency. Partially related due to severe anxiety. Status post nitro drip. Better. No evidence of renal artery stenosis. 3. Dyspnea secondary to vascular congestion/pulmonary edema. 4. Insulin-dependent diabetes mellitus. 5. Diastolic CHF. Plan: Maintain current antihypertensives. I will change Lasix to 40 mg orally once daily. Follow-up plasma metanephrines, renin and aldosterone. Continue to monitor renal function and urine output.
--- NOTE | 2019-01-08 14:09 | P.DS ---
Providers Date of admission: 01/06/19 20:01 Expected date of discharge: 01/08/19 Attending physician: Ayan Patel MD Consults: 01/07/19 07:27 Consult Physician Routine Consulting Provider: Ronald José Consult Reason/Comments: htn urgency Do you want consulting provider notified?: Yes Primary care physician: Melly Alvares MD Hospital Course: Discharge Diagnosis: Hypertensive Emergency with Flash Pulmonary edema Aortic stenosis DM 2 with hyperglycemia HLD P. A Fib COPD without exacerbation Hypothyroidism Obesity BMI 34.6 Hospital Course: Patient is a 78-year-old female past medical history of A. fib on eloquent, diabetes, CHF, coronary artery disease, COPD, hypertension, dyslipidemia, and TKD stage III who presented to the ER with complaints of this and. Per patient her shortness of breath has been going on for 3 weeks and she was diagnosed with an upper respiratory tract infection by her family physician. She has been struggling with hypertension over the last [address] Mercedes's office and he added hydralazine 100 mg 3 times daily. Yesterday she noted that her blood pressure was elevated. She had contacted Dr. Hernandez prescribed Norvasc but she has yet to pick it up. She then began checking her blood pressure every hour and he continued to go up so she presented to the hospital. In the emergency department she underwent an extensive evaluation. On arrival her blood pressure is 226/97 with a map of 140. Chest x-ray showed fluid overload. BNP was normal for her age. She was diagnosed with pulmonary edema secondary to hypertensive urgency. She was given a dose of Lasix was started on a nitro drip. She was admitted to the cardiac floor. Her home medicat ions of hydralazine, lisinopril, and metoprolol were continued. On the morning of 01/07 she was not tolerating the nitro gtt and her SBP was 196. She was started on Norvasc. Her BP improved by 01/08 and she was determined stable for discharge home. Her Renal doppler did not show any signs of stenosis. She will see Dr. José next week to follow-up on secondary causes of HTN eval with metanephrines, aldosterone, and renin levels, TSH was normal. Her A1C is still elevated at 9.1 but has decreased from 10.6, She will follow with Dr. Alvares next week. Echo unchanged severe LVH, EF 55-60%, mild aortic stenosis, Stress test reviewed from 3 months ago without signs of ischemia. Patient seen and examined at bedside. Feeling much better, breathing improved, up and walking the hallways, still asking for ABX for URI- informed not recommended. No edema Vital signs reviewed and stable. General: non toxic, no distress, appears at stated age, Obese Derm: warm, dry Head: atraumatic, normocephalic, symmetric Eyes: EOMI, no lid lag, anicteric sclera Mouth: no lip lesion, mucus membranes moist Cardiovascular: S1S2 reg, no murmur, positive posterior tibial pulse bilateral, Lungs: CTA bilateral, no rhonchi, no rales , no accessory muscle use Abdominal: soft, nontender to palpation, no guarding, no appreciable organomegaly Ext: no gross muscle atrophy, no edema, no contractures Neuro: CN II-XI grossly intact, no focal neuro deficits Psych: Alert, oriented, appropriate affect A total of 35 minutes of time were spent preparing this complex discharge summary . Pertinent Studies: Echo unchanged severe LVH, EF 55-60%, mild aortic stenosis, Stress test reviewed from 3 months ago without signs of ischemia. Renal doppler- No stenosis, 9 mm lesion (not noted on scan from 11/05) CXR- fluid overload Patient Condition at Discharge: Stable Plan - Discharge Summary Discharge Rx Participant: No New Discharge Prescriptions: New amLODIPine [Norvasc] 5 mg PO BID #60 tab Continue INSULIN LISPRO (humaLOG) [humaLOG] See Protocol SQ AC-TID Calcium Acetate [PhosLo] 667 mg PO TID Atorvastatin [Lipitor] 80 mg PO HS Apixaban [Eliquis] 5 mg PO BID #60 tab Metoprolol Succinate (ER) [Toprol XL] 25 mg PO DAILY #30 tab.er.24h ALPRAZolam [Xanax] 0.25 - 0.5 mg PO HS PRN PRN Reason: Insomnia glipiZIDE [Glucotrol] 5 mg PO BID Levothyroxine Sodium [Synthroid] 125 mcg PO DAILY Albuterol Inhaler [Ventolin Hfa Inhaler] 1 - 2 puff INHALATION RT-Q6H PRN #1 inhaler PRN Reason: Shortness Of Breath Potassium Chloride ER [K-Dur 10] 10 meq PO BID Magnesium Oxide [Mag-Ox] 400 mg PO TID metFORMIN HCL [Glucophage] 1,000 mg PO BID Lisinopril 40 mg PO DAILY Insulin Glargine [Lantus] 20 unit SQ HS Furosemide [Lasix] 40 mg PO DAILY hydrALAZINE HCL [Apresoline] 100 mg PO TID Artificial Tears-Hypromellose [Artificial Tear Drops] 1 drop OPHTHALMIC TID PRN PRN Reason: Dry Eye(S) Discharge Medication List Atorvastatin [Lipitor] 80 mg PO HS 06/30/18 [History] Calcium Acetate [PhosLo] 667 mg PO TID 06/30/18 [History] INSULIN LISPRO (humaLOG) [humaLOG] See Protocol SQ AC-TID 06/30/18 [History] Apixaban [Eliquis] 5 mg PO BID #60 tab 07/04/18 [Rx] Metoprolol Succinate (ER) [Toprol XL] 25 mg PO DAILY #30 tab.er.24h 07/04/18 [Rx] ALPRAZolam [Xanax] 0.25 - 0.5 mg PO HS PRN 09/19/18 [History] Levothyroxine Sodium [Synthroid] 125 mcg PO DAILY 11/29/18 [History] glipiZIDE [Glucotrol] 5 mg PO BID 11/29/18 [History] Albuterol Inhaler [Ventolin Hfa Inhaler] 1 - 2 puff INHALATION RT-Q6H PRN #1 inhaler 12/01/18 [Rx] Furosemide [Lasix] 40 mg PO DAILY 01/06/19 [History] Insulin Glargine [Lantus] 20 unit SQ HS 01/06/19 [History] Lisinopril 40 mg PO DAILY 01/06/19 [History] Magnesium Oxide [Mag-Ox] 400 mg PO TID 01/06/19 [History] Potassium Chloride ER [K-Dur 10] 10 meq PO BID 01/06/19 [History] hydrALAZINE HCL [Apresoline] 100 mg PO TID 01/06/19 [History] metFORMIN HCL [Glucophage] 1,000 mg PO BID 01/06/19 [History] Artificial Tears-Hypromellose [Artificial Tear Drops] 1 drop OPHTHALMIC TID PRN 01/07/19 [History] amLODIPine [Norvasc] 5 mg PO BID #60 tab 01/08/19 [Rx] Follow up Appointment(s)/Referral(s): Melly Alvares MD [Primary Care Provider] - 1-2 days Ronald José DO [STAFF PHYSICIAN] - 1 Week Activity/Diet/Wound Care/Special Instructions: Heart healthy heart carb consistent diet Activity as tolerated Check blood pressure 2 hours after morning medications, make a log for Dr. Alvares.
[2019-01-08 16:32] VITALS: BP 149/66; PULSE 69; TEMP 98
[2019-01-08] MEDS ORDERED: INSULIN DETEMIR (LEVEMIR) 100 UNIT/ML SYR SQ SCH (21:00)
[2019-01-09] MEDS ORDERED: FUROSEMIDE 40 MG TAB PO SCH (09:00)
[2019-01-11 19:39] LABS: Metanephrine, Free <25 pg/mL (< OR = 57); Normetanephrine, Free 44 pg/mL (< OR = 148); Total, Free (MN + NMN) 44 pg/mL (< OR = 205)
== END 2019-01-08 16:22 | disposition home or self-care (01) | DRG 305 ==
LOC: EC 17:43 → 3SCARD 20:01
PROVIDERS: ADMIT Internal Medicine; ATTEND Internal Medicine
DX: I16.1 Hypertensive emergency (principal); I50.30 Unspecified diastolic (congestive) heart failure; N17.9 Acute kidney failure, unspecified; I13.0 Hypertensive heart and chronic kidney disease with heart failure and stage 1 through stage 4 chronic kidney disease, or unspecified chronic kidney disease; E03.9 Hypothyroidism, unspecified; E11.22 Type 2 diabetes mellitus with diabetic chronic kidney disease; E11.65 Type 2 diabetes mellitus with hyperglycemia; E66.9 Obesity, unspecified; Z68.34 Body mass index [BMI] 34.0-34.9, adult; E78.5 Hyperlipidemia, unspecified; F41.9 Anxiety disorder, unspecified; G47.30 Sleep apnea, unspecified; Z99.89 Dependence on other enabling machines and devices; I25.10 Atherosclerotic heart disease of native coronary artery without angina pectoris; I35.0 Nonrheumatic aortic (valve) stenosis; I48.0 Paroxysmal atrial fibrillation; J44.9 Chronic obstructive pulmonary disease, unspecified; J06.9 Acute upper respiratory infection, unspecified; K21.9 Gastro-esophageal reflux disease without esophagitis; K59.00 Constipation, unspecified; N18.3 Chronic kidney disease, stage 3 (moderate); T50.2X5A Adverse effect of carbonic-anhydrase inhibitors, benzothiadiazides and other diuretics, initial encounter; Z79.01 Long term (current) use of anticoagulants; Z79.4 Long term (current) use of insulin; Z79.890 Hormone replacement therapy; Z79.899 Other long term (current) drug therapy; Z80.6 Family history of leukemia; Z82.49 Family history of ischemic heart disease and other diseases of the circulatory system; Z85.828 Personal history of other malignant neoplasm of skin; Z86.73 Personal history of transient ischemic attack (TIA), and cerebral infarction without residual deficits; Z90.710 Acquired absence of both cervix and uterus; Z98.42 Cataract extraction status, left eye; Z98.41 Cataract extraction status, right eye; Z96.1 Presence of intraocular lens; M54.5 Low back pain; G89.29 Other chronic pain; Z82.0 Family history of epilepsy and other diseases of the nervous system; Z66 Do not resuscitate; Z98.84 Bariatric surgery status; Z90.49 Acquired absence of other specified parts of digestive tract; Z88.1 Allergy status to other antibiotic agents; Z88.2 Allergy status to sulfonamides; Z88.8 Allergy status to other drugs, medicaments and biological substances; Z87.01 Personal history of pneumonia (recurrent); Z87.440 Personal history of urinary (tract) infections
CPT/HCPCS: 36415; 71046; 80048; 80053; 82088; 83036; 83735; 83835; 83880; 84244; 84443; 84484; 85025; 85610; 85730; 93005; 93306; 93975; 94760; 96365; 96375; 99291

== ENCOUNTER → 2019-03-10 | Outpatient (CLI) | payer MEDICARE ==
[2019-03-10 08:20] LABS: HCT 38.6 % (34.0-46.0); HGB 12.2 gm/dL (11.4-16.0); MCH 27.6 pg (25.0-35.0); MCHC 31.6 g/dL (31.0-37.0); MCV 87.3 fL (80.0-100.0); Platelet Count 275 k/uL (150-450); RBC 4.42 m/uL (3.80-5.40); WBC 10.1 k/uL (3.8-10.6)
[2019-03-10 08:51] LABS: Appearance,Urine Clear (Clear); Bacteria,Urine Occasional /hpf; Bilirubin,Urine Negative (Negative); Blood,Urine Negative (Negative); Color,Urine Yellow; Glucose,Urine (UA) 3+ (Negative); Hyaline Casts,Urine 7 /lpf (0-2); Ketones,Urine Negative (Negative); Leukocyte Esterase,Urine Small (Negative); Mucus,Urine Rare /hpf; Nitrite,Urine Negative (Negative); PH, Urine 6.5 (5.0-8.0); Protein,Urine 2+ (Negative); RBC,Urine 2 /hpf (0-5); Specific Gravity,Urine 1.016 (1.001-1.035); Squamous Epithelial Cell,Urine 1 /hpf (0-4); Urobilinogen,Urine <2.0 mg/dL (<2.0); WBC,Urine 5 /hpf (0-5)
[2019-03-10 11:13] LABS: Iron Saturation 14.77 (12.00-45.00)
[2019-03-10 11:17] LABS: African American GFR (CKD) 50.5 (60.0-200.0); Albumin 3.8 g/dL (3.80-4.90); Albumin/Globulin Ratio 1.81 (1.60-3.17); Anion Gap 13.7 mmol/L (4.00-12.00); BUN/Creat Ratio 15.83 Ratio (12.00-20.00); Calcium 8.9 mg/dL (8.7-10.3); Carbon Dioxide 28.3 mmol/L (21.6-31.8); Globulin 2.1 g/dL (1.6-3.3); Magnesium 1.9 mg/dL (1.5-2.4); Phosphorus 3.9 mg/dL (2.4-5.1); Potassium 4.4 mmol/L (3.5-5.5); Total Bilirubin 0.3 mg/dL (0.3-1.2); Total Protein 5.9 g/dL (6.2-8.2); Uric Acid 5.8 mg/dL (2.9-7.7)
[2019-03-10 11:24] LABS: Vitamin D 25 Hydroxy 18.8 ng/mL (30.0-100.0)
[2019-03-10 12:44] LABS: Parathyroid Hormone Intact 42.4 pg/mL (14.0-72.0)
[2019-03-10 13:07] LABS: DNA Double-Stranded Indetermin (NEGATIVE)
[2019-03-10 20:06] LABS: Hemoglobin A1C 10.6 % (4.0-6.0)
== END | disposition home or self-care (01) ==
LOC: LABWHC1 07:32
PROVIDERS: ATTEND Internal Medicine
DX: N39.0 Urinary tract infection, site not specified (principal); E55.9 Vitamin D deficiency, unspecified; N25.81 Secondary hyperparathyroidism of renal origin; M10.9 Gout, unspecified; R80.9 Proteinuria, unspecified; N18.3 Chronic kidney disease, stage 3 (moderate); D63.1 Anemia in chronic kidney disease
CPT/HCPCS: 36415; 80053; 81001; 82043; 82306; 82570; 82728; 83036; 83540; 83550; 83735; 83970; 84100; 84550; 85027; 86225

== ENCOUNTER → 2019-04-22 | Outpatient (CLI) | payer MEDICARE | END | disposition home or self-care (01) | LOC: CPPFTMAIN 12:26 | PROVIDERS: ATTEND Family Medicine | DX: R94.2 Abnormal results of pulmonary function studies (principal); R05 Cough | CPT/HCPCS: 94060; 94726; 94729 ==

== ENCOUNTER → 2019-05-08 | Outpatient (CLI) | payer MEDICARE ==
--- NOTE | 2019-05-12 10:31 | MM ---
Reason for exam: screening (asymptomatic). Last mammogram was performed 1 year ago. History: Patient is postmenopausal and has history of other cancer at age 60. Family history of breast cancer in paternal aunt at age 70, breast cancer in paternal aunt, and breast cancer in paternal grandmother. Benign excisional biopsy of the right breast. Took estrogen for 5 years. Physical Findings: A clinical breast exam by your physician is recommended on an annual basis and results should be correlated with mammographic findings. MG 3D Screening Mammo W/Cad Bilateral CC and MLO view(s) were taken. Prior study comparison: May 03, 2018, bilateral MG 3d screening mammo w/cad. November 16, 2016, bilateral MG 3d screening mammo w/cad. There are scattered fibroglandular densities. No significant changes when compared with prior studies. ASSESSMENT: Benign, BI-RAD 2 RECOMMENDATION: Routine screening mammogram of both breasts in 1 year.
== END ==
LOC: RADMAMWWP 14:02
PROVIDERS: ATTEND Family Medicine
DX: Z12.31 Encounter for screening mammogram for malignant neoplasm of breast (principal)
CPT/HCPCS: 77063; 77067

== ENCOUNTER → 2019-05-19 | Outpatient (CLI) | payer MEDICARE ==
[2019-05-19 10:31] LABS: HCT 34.5 % (34.0-46.0); HGB 11.6 gm/dL (11.4-16.0); MCH 29.6 pg (25.0-35.0); MCHC 33.7 g/dL (31.0-37.0); Mean Platelet Volume 6.3; Platelet Count 234 k/uL (150-450); RBC 3.92 m/uL (3.80-5.40); RDW 13.4 % (11.5-15.5); WBC 10.5 k/uL (3.8-10.6)
[2019-05-19 11:31] LABS: Appearance,Urine Clear (Clear); Bacteria,Urine Occasional /hpf; Bilirubin,Urine Negative (Negative); Blood,Urine Negative (Negative); Color,Urine Yellow; Glucose,Urine (UA) Negative (Negative); Ketones,Urine Negative (Negative); Leukocyte Esterase,Urine Large (Negative); Mucus,Urine Rare /hpf; Nitrite,Urine Negative (Negative); PH, Urine 5.5 (5.0-8.0); Protein,Urine 2+ (Negative); RBC,Urine 2 /hpf (0-5); Specific Gravity,Urine 1.018 (1.001-1.035); Squamous Epithelial Cell,Urine <1 /hpf (0-4); Urobilinogen,Urine <2.0 mg/dL (<2.0); WBC,Urine 27 /hpf (0-5)
[2019-05-19 15:48] LABS: Iron Saturation 19.11 (12.00-45.00)
[2019-05-19 15:56] LABS: African American GFR (CKD) 50.5 (60.0-200.0); Albumin 3.8 g/dL (3.80-4.90); Albumin/Globulin Ratio 2.24 (1.60-3.17); Anion Gap 7.9 mmol/L (4.00-12.00); BUN/Creat Ratio 24.17 Ratio (12.00-20.00); Calcium 8.4 mg/dL (8.7-10.3); Carbon Dioxide 28.1 mmol/L (21.6-31.8); Globulin 1.7 g/dL (1.6-3.3); Magnesium 1.8 mg/dL (1.5-2.4); Phosphorus 3.9 mg/dL (2.4-5.1); Potassium 4.4 mmol/L (3.5-5.5); Total Bilirubin 0.4 mg/dL (0.3-1.2); Total Protein 5.5 g/dL (6.2-8.2); Uric Acid 5.8 mg/dL (2.9-7.7); Vitamin D 25 Hydroxy 22.8 ng/mL (30.0-100.0)
[2019-05-19 15:59] LABS: Ferritin 35.3 ng/mL (10.0-291.0)
[2019-05-19 17:08] LABS: Hemoglobin A1C 9.9 % (4.0-6.0)
== END | disposition home or self-care (01) ==
LOC: LABWHC1 09:38
PROVIDERS: ATTEND Internal Medicine
DX: E11.65 Type 2 diabetes mellitus with hyperglycemia (principal); D63.1 Anemia in chronic kidney disease; N18.3 Chronic kidney disease, stage 3 (moderate); E11.22 Type 2 diabetes mellitus with diabetic chronic kidney disease; M10.9 Gout, unspecified; E55.9 Vitamin D deficiency, unspecified; N25.81 Secondary hyperparathyroidism of renal origin; R80.9 Proteinuria, unspecified; N39.0 Urinary tract infection, site not specified
CPT/HCPCS: 36415; 80053; 81001; 82043; 82306; 82570; 82728; 83036; 83540; 83550; 83735; 83970; 84100; 84550; 85027

== ENCOUNTER 2019-06-18 04:27 | Observation (INO) | payer MEDICARE ==
[2019-06-18] MEDS ORDERED: SODIUM CHLORIDE 0.9% 1,000 ML IV STA (04:56)
--- NOTE | 2019-06-18 04:57 | ED ---
Nausea/Vomiting/Diarrhea HPI - General Chief complaint: Nausea/Vomiting/Diarrhea Stated complaint: diabetic issues, diarrhea Time Seen by Provider: 06/18/19 04:38 Source: patient Mode of arrival: ambulatory Limitations: no limitations - History of Present Illness Initial comments: Neva is a 78-year-old female presents the emergency room today for beba luation of profuse diarrhea. Patient reports that evening on Sunday she began having very watery stools. She reports she's had uncountable episodes of diarrhea she reports it comes on suddenly and has been multiple episodes in which she hasn't been able to make an elevated her restroom. Patient reports at this point she is feeling very weak and tired and is concerned she is dehydrated. She reports crampy abdominal pain with the diarrhea no nausea or vomiting. No associated enzymes. This did develop after visiting the [facility] and she was initially concerned she may have food poisoning. Patient denies any recent antibiotic use or history of C. diff. - Related Data Home Medications Medication Instructions Recorded Confirmed Atorvastatin [Lipitor] 80 mg PO HS 06/30/18 02/19/19 Calcium Acetate [PhosLo] 667 mg PO TID 06/30/18 02/19/19 INSULIN LISPRO (humaLOG) [humaLOG] See Protocol SQ AC-TID 06/30/18 02/19/19 ALPRAZolam [Xanax] 0.25 - 0.5 mg PO HS PRN 09/19/18 02/19/19 glipiZIDE [Glucotrol] 5 mg PO BID 11/29/18 02/19/19 Insulin Glargine [Lantus] 40 unit SQ HS 01/06/19 02/19/19 Lisinopril 40 mg PO DAILY 01/06/19 02/19/19 Magnesium Oxide [Mag-Ox] 400 mg PO TID 01/06/19 02/19/19 Potassium Chloride ER [K-Dur 10] 10 meq PO BID 01/06/19 02/19/19 hydrALAZINE HCL [Apresoline] 100 mg PO TID 01/06/19 02/19/19 metFORMIN HCL [Glucophage] 1,000 mg PO BID 01/06/19 02/19/19 Artificial Tears-Hypromellose 1 drop OPHTHALMIC TID PRN 01/07/19 02/19/19 [Artificial Tear Drops] Furosemide [Lasix] 20 mg PO DAILY 02/19/19 02/19/19 Previous Rx's Medication Instructions Recorded Apixaban [Eliquis] 5 mg PO BID #60 tab 07/04/18 Metoprolol Succinate (ER) [Toprol 25 mg PO DAILY #30 tab.er.24h 07/04/18 XL] Albuterol Inhaler [Ventolin Hfa 1 - 2 puff INHALATION RT-Q6H PRN 12/01/18 Inhaler] #1 inhaler Levothyroxine Sodium [Synthroid] 125 mcg PO DAILY #30 tab 01/08/19 amLODIPine [Norvasc] 5 mg PO BID #60 tab 01/08/19 Amoxicillin 500 mg PO TID #21 capsule 02/19/19 Loratadine-Pseudoeph 10-240 mg 1 each PO DAILY #20 tab 02/19/19 [Claritin-D 24 Hr] Ofloxacin 0.3% Ophth Soln [Ocuflox 5 drops RIGHT EAR BID #1 bottle 02/19/19 Ophth Soln] Allergies Allergy/AdvReac Type Severity Reaction Status Date / Time azithromycin Allergy Rash/Hives Verified 06/18/19 04:41 [From Zithromax Z-Jeanmarie] methylprednisolone Allergy Unknown Verified 06/18/19 04:41 [From Medrol] Childhood trimethoprim [From Bactrim] Allergy Rash/Hives Verified 06/18/19 04:41 hydrochlorothiazide AdvReac lost Verified 06/18/19 04:41 balance and fell sulfamethoxazole AdvReac Rash/Hives Verified 06/18/19 04:41 [From Bactrim] Review of Systems ROS Statement: Those systems with pertinent positive or pertinent negative responses have been documented in the HPI. ROS Other: All systems not noted in ROS Statement are negative. 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 History of Any Multi-Drug Resistant Organisms: None Reported Past Surgical History: Adenoidectomy, Back Surgery, Bariatric Surgery, Cholecystectomy, Heart Catheterization, Hysterectomy, Tonsillectomy Additional Past Surgical History / Comment(s): Cardiac caths , lap band placed/since removed, low back surgery, L carpal tunnel release x2, skin cancer removal, colonoscopies, bilateral cataract removals/lens implants. Past Anesthesia/Blood Transfusion Reactions: No Reported Reaction Past Psychological History: No Psychological Hx Reported Smoking Status: Never smoker Past Alcohol Use History: None Reported Past Drug Use History: None Reported - Past Family History Sister(s) Family Medical History: Myocardial Infarction (DC) Brother(s) Family Medical History: Cancer Additional Family Medical History / Comment(s): colon Mother Family Medical History: Dementia Additional Family Medical History / Comment(s): Mother of dementia at the age of 89yrs. Father Additional Family Medical History / Comment(s): Pt states her father was treated for a sinus infection but really had leukemia and of this at the age of 72 yrs. General Exam - General Exam Comments Initial Comments: Physical Exam GENERAL: Patient is well-developed and well-nourished. Appears dehydrated HENT: Normocephalic, Atraumatic. EYES: PERRL, EOMI PULMONARY: Unlabored respirations. No audible rales rhonchi or wheezing was noted. CARDIOVASCULAR: There is a regular rate and rhythm without any murmurs gallops or rubs. ABDOMEN: Soft and nontender with normal bowel sounds. Non-peritoneal SKIN: Skin is clear with no lesions or rashes and otherwise unremarkable. : Deferred NEUROLOGIC: Patient is alert and oriented x3. Moving all extremities spontaneously MUSCULOSKELETAL: Normal extremities with adequate strength and full range of motion. No lower extremity swelling or edema. No calf tenderness. PSYCHIATRIC: Normal psychiatric evaluation. Limitations: no limitations Course Vital Signs 06/18/19 06/18/19 06/18/19 04:36 05:54 06:57 Temperature 97.7 F 97 F L 97.4 F L Pulse Rate 82 72 88 Respiratory 18 18 18 Rate Blood Pressure 167/94 165/88 132/77 O2 Sat by Pulse 99 99 98 Oximetry Medical Decision Making - Medical Decision Making The patient was seen and evaluated history was obtained from the patient 78-year-old female with profuse diarrhea she appears dehydrated labs and imaging were ordered Labs resulted with mild leukocytosis, mild worsening creatinine, evidence of urinary tract infection, given the patient's advanced age, evidence of dehydration in urinary tract infection we will plan to admit for IV antibiotics, fluid resuscitation. Patient is agreeable to this plan. Patient with no primary care physician will be admitted to medicine on-call Dr. Lucia. - Lab Data Result diagrams: 06/18/19 04:59 06/18/19 04:59 Lab Results 06/18/19 06/18/19 06/18/19 Range/Units 04:59 04:59 06:15 WBC 11.0 H (3.8-10.6) k/uL RBC 4.36 (3.80-5.40) m/uL Hgb 12.8 (11.4-16.0) gm/dL Hct 39.5 (34.0-46.0) % MCV 90.6 (80.0-100.0) fL MCH 29.4 (25.0-35.0) pg MCHC 32.4 (31.0-37.0) g/dL RDW 13.0 (11.5-15.5) % Plt Count 253 (150-450) k/uL Neutrophils % 65 % Lymphocytes % 16 % Monocytes % 11 % Eosinophils % 3 % Basophils % 1 % Neutrophils # 7.2 (1.3-7.7) k/uL Lymphocytes # 1.7 (1.0-4.8) k/uL Monocytes # 1.2 H (0-1.0) k/uL Eosinophils # 0.3 (0-0.7) k/uL Basophils # 0.2 (0-0.2) k/uL Sodium 137 (137-145) mmol/L Potassium 4.1 (3.5-5.1) mmol/L Chloride 101 (98-107) mmol/L Carbon Dioxide 27 (22-30) mmol/L Anion Gap 9 mmol/L BUN 24 H (7-17) mg/dL Creatinine 1.45 H (0.52-1.04) mg/dL Est GFR (CKD-EPI)AfAm 40 (>60 ml/min/1.73 sqM) Est GFR (CKD-EPI)NonAf 35 (>60 ml/min/1.73 sqM) Glucose 341 H (74-99) mg/dL Calcium 9.1 (8.4-10.2) mg/dL Total Bilirubin 0.6 (0.2-1.3) mg/dL AST 21 (14-36) U/L ALT 28 (9-52) U/L Alkaline Phosphatase 112 (38-126) U/L Total Protein 6.8 (6.3-8.2) g/dL Albumin 4.0 (3.5-5.0) g/dL Lipase 230 (23-300) U/L Urine Color Yellow Urine Appearance Cloudy H (Clear) Urine pH 5.5 (5.0-8.0) Ur Specific [place] 1.018 (1.001-1.035) Urine Protein 2+ H (Negative) Urine Glucose (UA) 3+ H (Negative) Urine Ketones Negative (Negative) Urine Blood Negative (Negative) Urine Nitrite Negative (Negative) Urine Bilirubin Negative (Negative) Urine Urobilinogen <2.0 (<2.0) mg/dL Ur Leukocyte Esterase Large H (Negative) Urine RBC 3 (0-5) /hpf Urine WBC 66 H (0-5) /hpf Urine WBC Clumps Rare H (None) /hpf Ur Squamous Epith Cells 6 H (0-4) /hpf Urine Bacteria Rare H (None) /hpf Hyaline Casts 72 H (0-2) /lpf Urine Mucus Rare H (None) /hpf Disposition Clinical Impression: UTI (urinary tract infection), JOCY (acute kidney injury), Dehydration, Diarrhea Disposition: ADMITTED IP TO THIS [facility] Condition: Stable Referrals: None,Stated [Primary Care Provider] - 1-2 days
[2019-06-18 05:10] LABS: Basophils # (A) 0.2 k/uL (0-0.2); Basophils % (A) 1 %; Eosinophils # (A) 0.3 k/uL (0-0.7); Eosinophils % (A) 3 %; HCT 39.5 % (34.0-46.0); HGB 12.8 gm/dL (11.4-16.0); Lymphocytes # (A) 1.7 k/uL (1.0-4.8); Lymphocytes % (A) 16 %; MCH 29.4 pg (25.0-35.0); MCHC 32.4 g/dL (31.0-37.0); MCV 90.6 fL (80.0-100.0); Mean Platelet Volume 7.2; Monocytes # (A) 1.2 k/uL (0-1.0); Monocytes % (A) 11 %; Neutrophils # (A) 7.2 k/uL (1.3-7.7); Neutrophils % (A) 65 %; Platelet Count 253 k/uL (150-450); RBC 4.36 m/uL (3.80-5.40)
[2019-06-18 05:20] LABS: Calcium 9.1 mg/dL (8.4-10.2); Potassium 4.1 mmol/L (3.5-5.1); Total Bilirubin 0.6 mg/dL (0.2-1.3); Total Protein 6.8 g/dL (6.3-8.2)
--- NOTE | 2019-06-18 05:29 | XR ---
EXAM: XR Abdomen, 2 Views CLINICAL HISTORY: Pain TECHNIQUE: Frontal view of the abdomen/pelvis with upright view of the abdomen. COMPARISON: No relevant prior studies available. FINDINGS: Intraperitoneal space: No free air. Gastrointestinal tract: Unremarkable. No dilation. Organs: Evidence prior cholecystectomy. Bones/joints: Post surgical changes within the lower lumbar spine. IMPRESSION: No acute findings.
[2019-06-18] MEDS ORDERED: INSULIN REGULAR 100 UNIT/ML VIAL SQ ONE (05:41)
[2019-06-18 07:02] LABS: Appearance,Urine Cloudy (Clear); Bacteria,Urine Rare /hpf; Bilirubin,Urine Negative (Negative); Blood,Urine Negative (Negative); Color,Urine Yellow; Glucose,Urine (UA) 3+ (Negative); Hyaline Casts,Urine 72 /lpf (0-2); Ketones,Urine Negative (Negative); Leukocyte Esterase,Urine Large (Negative); Mucus,Urine Rare /hpf; Nitrite,Urine Negative (Negative); PH, Urine 5.5 (5.0-8.0); Protein,Urine 2+ (Negative); RBC,Urine 3 /hpf (0-5); Specific Gravity,Urine 1.018 (1.001-1.035); Squamous Epithelial Cell,Urine 6 /hpf (0-4); Urobilinogen,Urine <2.0 mg/dL (<2.0)
[2019-06-18] MEDS ORDERED: NALOXONE 0.4 MG/ML 1 ML VIAL IV PRN (07:33)
[2019-06-18 08:19] LABS: Glucose,Whole Blood 264 mg/dL (75-99)
[2019-06-18] MEDS: SODIUM CHLORIDE 0.9% 1,000 ML IV SCH ×2 (08:24→20:48)
[2019-06-18] MEDS: INSULIN ASPART (NovoLOG) 100 UNIT/ML VIAL SQ SCH ×5 (08:26→20:46)
[2019-06-18] MEDS ORDERED: DIPHENOX-ATROP 2.5-0.025 MG 1 EACH TAB PO PRN (09:16)
[2019-06-18 12:06] LABS: Glucose,Whole Blood 310 mg/dL (75-99)
[2019-06-18] MEDS: APIXABAN 5 MG TAB PO SCH ×2 (14:17→20:46)
[2019-06-18] MEDS: amLODIPine 10 MG TAB PO SCH (14:17)
[2019-06-18 17:12] LABS: Glucose,Whole Blood 281 mg/dL (75-99)
[2019-06-18] MEDS: glipiZIDE 5 MG TAB PO SCH (17:24)
[2019-06-18 20:40] LABS: Glucose,Whole Blood 299 mg/dL (75-99)
[2019-06-18] MEDS: hydrALAZINE HCL 50 MG TAB PO SCH (20:45)
[2019-06-18] MEDS: POTASSIUM CHLORIDE ER 10 MEQ TAB.ER.PRT PO SCH (20:46)
--- NOTE | 2019-06-18 20:46 | HP ---
HISTORY AND PHYSICAL CHIEF COMPLAINT: Diarrhea. HISTORY OF PRESENT ILLNESS: This lady has been having explosive watery diarrhea for the last day or so, and this morning she was incontinent. She came to the emergency room, where she was found to have a urinary tract infection. She has had no abdominal pain, fever, chills, hematochezia, melena, etc. She has otherwise been in fairly good health. In the emergency room, laboratory studies revealed a white count of 11,000 with a normal hemoglobin. GFR was 35 with a BUN of 24 and creatinine 1.45. Liver function studies and electrolytes were normal. Urine suggested that she may have a UTI. REVIEW OF SYSTEMS: She has had no CVAs, TIAs, difficulty or change in the vision or the hearing, heart disease, COPD, cough, hemoptysis, abdominal pain, nausea, vomiting, hematemesis, jaundice, renal failure, thyroid disease, etc. She does have type 2 diabetes and a history of hypertension. Past medical history, family history, and personal and social histories reveal that she had no surgery and she is ALLERGIC TO AZITHROMYCIN, METHYLPREDNISOLONE AND BACTRIM. She has a family history in that her father had leukemia. MEDICATIONS: Her medications include: 1. Metformin. 2. Amlodipine. 3. Apixaban. 4. Atorvastatin. 5. Furosemide. 6. Glipizide. 7. Hydralazine. 8. Humalog. 9. Levothyroxine. 10.Lisinopril. 11.Metoprolol. 12.Potassium. She thinks that the diarrhea may be related to the metformin, and this will be withheld. PHYSICAL EXAMINATION: Blood pressure is 168/87 with a pulse of 66, respirations of 16, and she is afebrile. In general she appeared to be in no acute distress. Skin color was normal. Skin was warm and dry. Lymph nodes were not enlarged. Head, ears, eyes, nose, mouth and throat were normal. Neck veins were not distended. Thyroid was not enlarged. Chest was clear. Cardiac exam was normal. The abdomen was soft and nontender. Extremities were normal. Neurologically she was intact. ADMITTING DIAGNOSES: 1. Intractable diarrhea (possibly due to metformin). 2. Urinary tract infection. 3. Diabetes. 4. Hypertension. PLAN: 1. Bed rest. 2. IV fluids. 3. Serial EKGs and enzymes. 4. Withhold metformin. 5. Manage diarrhea. 6. Monitor blood sugars and treat appropriately. Her program could be more compact. MMODL / IJN: [id number] /
[2019-06-18] MEDS ORDERED: ATORVASTATIN 80 MG TAB PO SCH (21:00)
[2019-06-19] MEDS ORDERED: LEVOTHYROXINE 125 MCG TAB PO SCH (06:30)
[2019-06-19 07:23] VITALS: PULSE 74; RESP 16
[2019-06-19 07:28] LABS: Glucose,Whole Blood 353 mg/dL (75-99)
[2019-06-19] MEDS: hydrALAZINE HCL 50 MG TAB PO SCH (08:23)
[2019-06-19] MEDS: INSULIN ASPART (NovoLOG) 100 UNIT/ML VIAL SQ SCH ×4 (08:23→17:49)
[2019-06-19] MEDS: amLODIPine 10 MG TAB PO SCH (08:24)
[2019-06-19] MEDS: glipiZIDE 5 MG TAB PO SCH ×2 (08:24→17:48)
[2019-06-19] MEDS: POTASSIUM CHLORIDE ER 10 MEQ TAB.ER.PRT PO SCH (08:24)
[2019-06-19] MEDS: APIXABAN 5 MG TAB PO SCH (08:43)
[2019-06-19] MEDS: SODIUM CHLORIDE 0.9% 1,000 ML IV SCH (08:43)
[2019-06-19] MEDS ORDERED: LISINOPRIL 20 MG TAB PO SCH (09:00)
[2019-06-19] MEDS ORDERED: METOPROLOL SUCCINATE (ER) 25 MG TAB.ER.24H PO SCH (09:00)
[2019-06-19] MEDS ORDERED: FUROSEMIDE 40 MG TAB PO SCH (09:00)
[2019-06-19 11:44] LABS: Glucose,Whole Blood 282 mg/dL (75-99)
[2019-06-19] MEDS ORDERED: INSULIN ASPART (NovoLOG) 100 UNIT/ML VIAL SQ SCH ×2 (12:30→17:30)
[2019-06-19 14:39] VITALS: BP 118/72; TEMP 98
[2019-06-19 17:02] LABS: Glucose,Whole Blood 151 mg/dL (75-99)
--- NOTE | 2019-06-19 20:30 | PN ---
PROGRESS NOTE CHIEF COMPLAINT: Intractable diarrhea, urinary tract infection and uncontrolled diabetes. HISTORY OF PRESENT ILLNESS: This lady is doing fairly well and diarrhea has stopped. She still has very high blood sugars, although she feels well. She has had no dizziness, shortness of breath, abdominal pain, etc. PHYSICAL EXAMINATION: Chest is clear. Cardiac exam is normal. Abdomen is soft, nontender. IMPRESSION: 1. Urinary tract infection. 2. Diarrhea. 3. Uncontrolled diabetes. PLAN: Increase insulin. She can probably go home just about any time, and her sugars and insulin dosages could be adjusted as an outpatient. MMODL / IJN: [id number] /
[2019-06-19] MEDS ORDERED: INSULIN DETEMIR (LEVEMIR) 100 UNIT/ML SYR SQ SCH (21:00)
[2019-06-20] MEDS ORDERED: INSULIN DETEMIR (LEVEMIR) 100 UNIT/ML SYR SQ SCH (07:00)
--- NOTE | 2019-06-28 20:02 | DS ---
DISCHARGE SUMMARY CHIEF COMPLAINT: Diarrhea and urinary tract infection. HISTORY OF PRESENT ILLNESS AND PHYSICAL EXAM: Details of this lady's history and physical can be found in the initial workup. LABORATORY STUDIES: While she was in a hospital she had laboratory studies, details of which can be found in the laboratory section of her chart. COURSE IN HOSPITAL: After admission she was placed on bedrest, started on intravenous fluids and metformin stopped. Her diarrhea cleared. Urinary tract infection was treated. She was doing well enough that it was felt that she could be discharged on the and she will go home on her usual activity and diet and medication and without metformin. She will be followed up in the office and further decisions can be made regarding management of her diabetes. FINAL DIAGNOSIS: 1. Intractable diarrhea, probably secondary to metformin. 2. Urinary tract infection. 3. Type 2 non-insulin dependent diabetes mellitus. OPERATIONS: None. CONSULTATION: None. She is improved. MMODL / HOODN: [id number] /
== END 2019-06-19 18:16 | disposition home or self-care (01) ==
LOC: EC 04:27 → 4MS4W 07:33
PROVIDERS: ADMIT Family Medicine; ATTEND Family Medicine
DX: N39.0 Urinary tract infection, site not specified (principal); E11.65 Type 2 diabetes mellitus with hyperglycemia; R19.7 Diarrhea, unspecified; I25.10 Atherosclerotic heart disease of native coronary artery without angina pectoris; I48.91 Unspecified atrial fibrillation; I13.0 Hypertensive heart and chronic kidney disease with heart failure and stage 1 through stage 4 chronic kidney disease, or unspecified chronic kidney disease; I50.9 Heart failure, unspecified; E11.22 Type 2 diabetes mellitus with diabetic chronic kidney disease; N18.3 Chronic kidney disease, stage 3 (moderate); E78.5 Hyperlipidemia, unspecified; E03.9 Hypothyroidism, unspecified; K21.9 Gastro-esophageal reflux disease without esophagitis; J44.9 Chronic obstructive pulmonary disease, unspecified; G47.33 Obstructive sleep apnea (adult) (pediatric); Z87.440 Personal history of urinary (tract) infections; Z86.19 Personal history of other infectious and parasitic diseases; Z79.4 Long term (current) use of insulin; Z79.899 Other long term (current) drug therapy; Z79.890 Hormone replacement therapy; Z79.01 Long term (current) use of anticoagulants; Z88.2 Allergy status to sulfonamides; Z88.8 Allergy status to other drugs, medicaments and biological substances; Z88.1 Allergy status to other antibiotic agents; Z86.73 Personal history of transient ischemic attack (TIA), and cerebral infarction without residual deficits; Z87.01 Personal history of pneumonia (recurrent); Z90.710 Acquired absence of both cervix and uterus; Z90.49 Acquired absence of other specified parts of digestive tract; Z96.1 Presence of intraocular lens; Z85.828 Personal history of other malignant neoplasm of skin; Z82.49 Family history of ischemic heart disease and other diseases of the circulatory system; Z80.6 Family history of leukemia; Z80.0 Family history of malignant neoplasm of digestive organs
CPT/HCPCS: 36415; 74018; 80053; 81001; 83690; 85025; 87040; 87086; 87324; 96361; 96365; 96366; 99285

== ENCOUNTER → 2019-06-26 | Outpatient (CLI) | payer MEDICARE ==
--- NOTE | 2019-06-26 19:53 | CONS ---
CONSULTATION DATE OF SERVICE: 06/26/2019 This patient is a 78-year-old lady who has been evaluated in Sleep Center for obstructive sleep apnea-hypopnea syndrome. HISTORY OF PRESENT ILLNESS/SLEEP-WAKE EVALUATION: Previously patient has history of obstructive sleep apnea, was treated with CPAP, but then secondary to financial problems she was not able to replace her CPAP unit and quit using equipment about 4 to 5 years ago. At present her sleep schedule is from 11 p.m. until 7:30 a.m. She does have problems with falling asleep, although no TV in bedroom. She prefers to sleep on the stomach position. She snores and wakes up from sleep 3 times with nocturia. In the morning she wakes up tired, falling asleep during the day. She worries about her sleep, has problems with memory, concentration, claustrophobia. [place] Sleepiness Scale is 7. PAST MEDICAL HISTORY: Past medical history is positive for: 1. Diabetes mellitus. 2. Kidney problems. 3. Hypertension. 4. Atrial fibrillation. 5. Hypothyroidism. 6. Episodes of pneumonia, last time recently. PAST SURGICAL HISTORY: Back surgery. MEDICATIONS: 1. Apixaban. 2. Atorvastatin. 3. Metoprolol. 4. Hydralazine. 5. Levothyroxine. 6. Lisinopril. 7. Amlodipine. 8. Potassium supplement. 9. Furosemide. 10.Insulin. SOCIAL HISTORY: Negative for smoking or using alcohol. FAMILY HISTORY: Hypertension, stroke, arthritis, cancer, snoring, diabetes, thyroid problems. REVIEW OF SYSTEMS: Multiple awakenings from sleep, sometimes tiredness and sleepiness during the day. Patient may take 2 naps a day at 2 p.m. Swelling of the legs. PHYSICAL EXAMINATION: GENERAL: A pleasant lady without distress. VITAL SIGNS: BP 167/80, HR 84, RR 16, height 5 feet 3 inches, weight 214 pounds. Body mass index 37.9. Temperature 97.7, oxygen saturation at room air 97%. HEENT: PERRLA, EOMI. Evaluation of oropharynx showed tongue protrudes midline. Extremely low position of soft palate. Mallampati IV. NECK: Supple. No JVD. Thyroid is not palpable. Wide neck; 16 inches in circumference. LUNGS: Clear to percussion and to auscultation. Good air exchange. No wheezing or rhonchi. HEART: S1, S2 regular. No murmurs, gallops or rubs. ABDOMEN: Obese. EXTREMITIES: Two plus bilateral ankle edema. IMPRESSION: 1. History of obstructive sleep apnea in the past. Patient quit using equipment about 4 years ago secondary to financial problems. Snoring, extremely low soft palate, wide neck, sleepiness; patient takes 2 naps a day; multiple awakenings from sleep; obstructive sleep apnea-hypopnea syndrome. 1. Obesity; body mass index 37.9. 2. Hypertension. 3. Diabetes mellitus. 4. Kidney problems. 5. Hypothyroidism. 6. History of atrial fibrillation. 7. Congestive heart failure. 8. Swelling of the legs. 9. Status post back surgery. PLAN: 1. Polysomnography for evaluation of patient's breathing during sleep. 2. CPAP/BiPAP titration if sleep study confirms obstructive sleep apnea-hypopnea syndrome. 3. Preferable position during sleep on the side. 4. No driving if patient feels any sleepiness. 5. I will see patient for follow up visit to explain results of testing and following plan. Thank you very much for referring this patient for evaluation. Sincerely, Yoshi Machado MD, PhD, FAASM Diplomat of [employer] Landscaping Supervisor of [facility] [place] MMODL / HOODN: [id number] /
== END | disposition home or self-care (01) ==
LOC: SLEEP 13:23
PROVIDERS: ATTEND Internal Medicine
DX: G47.33 Obstructive sleep apnea (adult) (pediatric) (principal); E66.9 Obesity, unspecified; E11.9 Type 2 diabetes mellitus without complications; E03.9 Hypothyroidism, unspecified; I11.0 Hypertensive heart disease with heart failure; I50.9 Heart failure, unspecified; M79.89 Other specified soft tissue disorders; R93.429 Abnormal radiologic findings on diagnostic imaging of unspecified kidney; Z68.37 Body mass index [BMI] 37.0-37.9, adult; Z86.79 Personal history of other diseases of the circulatory system; Z98.890 Other specified postprocedural states; Z79.01 Long term (current) use of anticoagulants; Z79.890 Hormone replacement therapy; Z79.4 Long term (current) use of insulin; Z79.899 Other long term (current) drug therapy
CPT/HCPCS: 99211

== ENCOUNTER → 2019-09-25 | Outpatient (CLI) | payer MEDICARE ==
--- NOTE | 2019-09-25 13:33 | SFUN ---
SLEEP CENTER FOLLOW UP NOTE DATE OF SERVICE: 09/25/2019 This 79-year-old lady had been followed in sleep center for treatment of obstructive sleep apnea-hypopnea syndrome. Recently, patient had CPAP titration, received her CPAP unit, started to use it last night but had difficulties because feels the pressure is too much for her, was not able to sleep with that. [place] Sleepiness Scale today is 7. I again review results of the sleep studies with the patient including CPAP titration was done at the pressure of 10 and at that pressure, respiration was the best and that is the pressure the patient has on her machine. MEDICATIONS: Apixaban, atorvastatin, metoprolol, hydralazine, levothyroxine, lisinopril, amlodipine, cholecalciferol, furosemide, insulin. PHYSICAL EXAMINATION: During physical exam, patient in no distress. VITAL SIGNS: BP 176/86, HR 83, RR 16, weight 223.2, temperature 97.9, oxygen saturation at room air 97%. HEENT: PERRLA, EOMI. Oropharynx extremely low position of soft palate. Mallampati 4. NECK: Supple, no JVD. Thyroid is not palpable. LUNGS: Clear to percussion and to auscultation. Good air exchange. No wheezing or rhonchi. HEART: S1, S2 regular. No murmurs, gallops, or rubs. ABDOMEN: Obese. EXTREMITIES: 1 to 2+ bilateral ankle edema. DEPUTY ADMINISTRATOR: Awake, alert, and oriented X3. Cranial nerves 2 to 7 intact. There is no fasciculation or atrophy. noted. No focal deficits observed. IMPRESSION: 1. Obstructive sleep apnea-hypopnea syndrome. 2. Hypertension. 3. Swelling of the legs. 4. Diabetes mellitus. 5. Hypothyroidism. 6. History of atrial fibrillation. 7. History of kidney problems. 8. Obesity. 9. Status post back surgery. PLAN: 1. I will decrease pressure in CPAP unit down to 6 cm of water. 2. Patient will continue to use CPAP equipment every night. 3. Watching and losing weight. 4. Sleep hygiene with regular time in bed for at least 7-1/2 hours. 5. Follow-up visit in more than 30 days for evaluate patient compliance with treatment and make any necessary adjustment. Thank you very much for allowing me to participate in management of your patient. Sincerely, Yoshi Machado MD, PhD, FAASM Diplomat of [place] [employer] Clinical Education Specialist of [facility] [place] MMODL / HOODN: [id number] /
== END | disposition home or self-care (01) ==
LOC: SLEEP 11:49
PROVIDERS: ATTEND Internal Medicine
DX: G47.33 Obstructive sleep apnea (adult) (pediatric) (principal); I10 Essential (primary) hypertension; E11.9 Type 2 diabetes mellitus without complications; E03.9 Hypothyroidism, unspecified; E66.9 Obesity, unspecified; R22.40 Localized swelling, mass and lump, unspecified lower limb; Z86.79 Personal history of other diseases of the circulatory system; Z87.448 Personal history of other diseases of urinary system; Z98.1 Arthrodesis status; Z79.84 Long term (current) use of oral hypoglycemic drugs; Z79.4 Long term (current) use of insulin; Z79.899 Other long term (current) drug therapy

== ENCOUNTER → 2019-09-26 | Outpatient (CLI) | payer MEDICARE ==
[2019-09-26 16:26] LABS: African American GFR (CKD) 41.6 (60.0-200.0); Albumin 3.8 g/dL (3.80-4.90); Albumin/Globulin Ratio 1.9 (1.60-3.17); Anion Gap 7.7 mmol/L (4.00-12.00); BUN/Creat Ratio 14.29 Ratio (12.00-20.00); Calcium 8.8 mg/dL (8.7-10.3); Carbon Dioxide 29.3 mmol/L (21.6-31.8); LDL Cholesterol,Calculated 58.8 mg/dL (0.0-131.0); Non-African American GFR(CKD) 35.9 (60.0-200.0); Potassium 3.8 mmol/L (3.5-5.5); Total Bilirubin 0.4 mg/dL (0.3-1.2); Total Protein 5.8 g/dL (6.2-8.2); VLDL Calculation 45.2 mg/dL (5.00-40.00)
== END | disposition home or self-care (01) ==
LOC: LABWHC1 08:13
PROVIDERS: ATTEND Nurse Practitioner Adult Health
DX: N18.9 Chronic kidney disease, unspecified (principal); E78.2 Mixed hyperlipidemia
CPT/HCPCS: 36415; 80053; 80061

== ENCOUNTER → 2019-12-15 | Outpatient (CLI) | payer MEDICARE ==
--- NOTE | 2019-12-15 13:01 | US ---
EXAMINATION TYPE: US venous doppler duplex LE RT DATE OF EXAM: 12/15/2019 12:42 PM COMPARISON: NONE CLINICAL HISTORY: 79-year-old female M79.671, S92.331D, I80.9. SIDE PERFORMED: Right TECHNIQUE: The lower extremity deep venous system is examined utilizing real time linear array sonog phuong with graded compression, doppler sonography and color-flow sonography. FINDINGS: VESSELS IMAGED: External Iliac Vein (EIV) Common Femoral Vein Deep Femoral Vein Greater Saphenous Vein * Femoral Vein Popliteal Vein Small Saphenous Vein * Proximal Calf Veins (* superficial vessels) Right Leg: Negative for DVT PTV's and entire GSV scanned per order. Ohara cyst measuring 3.8 x 1.1 x 2.1cm Some subcutaneous edema within the calf. IMPRESSION: 1. No evidence for DVT within the right lower extremity. 2. A 3.8 x 2.1 cm Ohara's cyst noted. 3. Subcutaneous edema noted at the calf.
== END | disposition home or self-care (01) ==
LOC: RADUSWWP 11:51
PROVIDERS: ATTEND Orthopaedic Surgery
DX: M71.21 Synovial cyst of popliteal space [Baker], right knee (principal); E11.9 Type 2 diabetes mellitus without complications

== ENCOUNTER → 2020-02-02 | Outpatient (CLI) | payer MEDICARE ==
[2020-02-02 17:35] LABS: African American GFR (CKD) 38.3 (60.0-200.0); Anion Gap 8.5 mmol/L (4.00-12.00); Calcium 8.6 mg/dL (8.7-10.3); Carbon Dioxide 30.5 mmol/L (21.6-31.8)
== END | disposition home or self-care (01) ==
LOC: LABWHC1 08:15
PROVIDERS: ATTEND Nurse Practitioner Adult Health
DX: N18.9 Chronic kidney disease, unspecified (principal)
CPT/HCPCS: 36415; 80048

== ENCOUNTER → 2020-02-03 | Outpatient (CLI) | payer MEDICARE ==
--- NOTE | 2020-02-03 12:04 | XR ---
MR spine HISTORY: Left low back pain 3 views of the lumbar spine correlated prior exam 11/10/2016 There is no significant interval change. Postop changes are noted at L4-5 S1 status post posterior fu noa with associated laminectomies. Vascular calcifications are noted incidentally. Lumbar vertebral bodies show preserved height, alignment, bone mineralization is reduced. There is a left paraspinal d ensity measuring approximately 16 mm seen on the frontal view, there is overlying artifact. There is facet arthropathy. There is loss of disc height at L2-3 with associated spondylosis. Disc heights at L4-5 and L5-S1 are stable. IMPRESSION: Postop changes are stable. Indeterminate density on the frontal view as described. Osteop enia. Generative disc disease.
== END | disposition home or self-care (01) ==
LOC: RADXRMAIN 11:19
PROVIDERS: ATTEND Family Medicine
DX: M47.816 Spondylosis without myelopathy or radiculopathy, lumbar region (principal); M85.88 Other specified disorders of bone density and structure, other site; Z98.890 Other specified postprocedural states
CPT/HCPCS: 72100

== ENCOUNTER → 2020-02-10 | Outpatient (CLI) | payer MEDICARE ==
--- NOTE | 2020-02-11 07:13 | US ---
EXAMINATION TYPE: US venous doppler duplex LE RT DATE OF EXAM: 02/10/2020 3:51 PM COMPARISON: us CLINICAL HISTORY: R60.0 Localized edema. SIDE PERFORMED: Right TECHNIQUE: The lower extremity deep venous system is examined utilizing real time linear array sonog phuong with graded compression, doppler sonography and color-flow sonography. VESSELS IMAGED: External Iliac Vein (EIV) Common Femoral Vein Deep Femoral Vein Greater Saphenous Vein * Femoral Vein Popliteal Vein Small Saphenous Vein * Proximal Calf Veins (* superficial vessels) Right Leg: Negative for DVT Ohara's cyst measuring 4.1 x 1.2 x 2.3cm IMPRESSION: No evidence for DVT at this time.
== END | disposition home or self-care (01) ==
LOC: RADUSWWP 15:27
PROVIDERS: ATTEND Family Medicine
DX: R60.0 Localized edema (principal)

== ENCOUNTER → 2020-02-11 | Outpatient (CLI) | payer MEDICARE ==
--- NOTE | 2020-02-11 14:53 | XR ---
EXAM TYPE: LUMBAR SPINE X RAY SERIES COMPARISON: 02/03/2020 HISTORY: Low back pain TECHNIQUE: 4 views are submitted. FINDINGS: Postsurgical change involving the lower lumbar spine. Mild anterolisthesis of L4 on L5 and L3 on L4. Multilevel diffuse osteopenia. There is multilevel facet arthropathy and degenerative disc disease. Surgical clips in the right upper quadrant. Previous noted density in the left paraspinal region no l onger seen. Vascular calcifications noted. IMPRESSION: 1. Postoperative change with anterolisthesis appears stable from prior exam. 2. Density seen in the left abdomen is no longer identified and most likely represented bowel content .
== END | disposition home or self-care (01) ==
LOC: RADXRMAIN 10:00
PROVIDERS: ATTEND Physical Medicine & Rehabilitation
DX: M43.16 Spondylolisthesis, lumbar region (principal); E11.9 Type 2 diabetes mellitus without complications; I48.91 Unspecified atrial fibrillation; Z98.890 Other specified postprocedural states; Z98.1 Arthrodesis status
CPT/HCPCS: 72100

== ENCOUNTER 2020-02-13 13:14 | Emergency (ER) | payer MEDICARE ==
[2020-02-13] MEDS ORDERED: LORazepam 1 MG TAB PO STA ×2 (14:09→15:16)
--- NOTE | 2020-02-13 14:12 | ED ---
General Adult HPI - General Chief complaint: Anxiety Stated complaint: Anxiety Time Seen by Provider: 02/13/20 13:55 Source: patient, family, RN notes reviewed Mode of arrival: wheelchair Limitations: no limitations - History of Present Illness Initial comments: Patient is a pleasant 79-year-old female presenting to the emergency Department with concerns for anxiety. Patient states she was told her kidney function is not that great. Patient also was told that there was a mass on her x-ray near her spine. Patient does have a follow-up appointment with the back doctor in the next few days. Patient does see a kidney doctor regularly. Patient states she has no back pain or other complaints however does feel anxious and stressed out regarding these findings. No homicidal or suicidal thoughts. - Related Data Home Medications Medication Instructions Recorded Confirmed Atorvastatin [Lipitor] 80 mg PO HS 06/30/18 06/18/19 Lisinopril 40 mg PO DAILY 01/06/19 06/18/19 Potassium Chloride ER [K-Dur 10] 10 meq PO BID 01/06/19 06/18/19 hydrALAZINE HCL [Apresoline] 100 mg PO BID 01/06/19 06/18/19 Cholecalciferol [Vitamin D3 (25 1,000 unit PO DAILY 06/18/19 06/18/19 Mcg = 1000 Iu)] Ergocalciferol [Vitamin D2 50,000 unit PO QMONTH 06/18/19 06/18/19 (DRISDOL)] Furosemide [Lasix] 40 mg PO DAILY 06/18/19 06/18/19 Vitamin E (Dl,Tocopheryl Acet) 400 unit PO DAILY 06/18/19 06/18/19 [Vitamin E] amLODIPine BESYLATE 10 mg PO DAILY 06/18/19 06/18/19 Previous Rx's Medication Instructions Recorded Apixaban [Eliquis] 5 mg PO BID #60 tab 07/04/18 Metoprolol Succinate (ER) [Toprol 25 mg PO DAILY #30 tab.er.24h 07/04/18 XL] Levothyroxine Sodium [Synthroid] 125 mcg PO DAILY #30 tab 01/08/19 INSULIN ASPART (NovoLOG) [NovoLOG 14 unit SQ AC-TID #1 vial 06/19/19 (formulary)] Insulin Detemir (Levemir) [Levemir] 40 unit SQ DAILY@0700 30 Days #1 06/19/19 pen Allergies Allergy/AdvReac Type Severity Reaction Status Date / Time azithromycin Allergy Rash/Hives Verified 02/13/20 13:42 [From Zithromax Z-Jeanmarie] methylprednisolone Allergy Unknown Verified 02/13/20 13:42 [From Medrol] Childhood trimethoprim [From Bactrim] Allergy Rash/Hives Verified 02/13/20 13:42 hydrochlorothiazide AdvReac lost Verified 02/13/20 13:42 balance and fell sulfamethoxazole AdvReac Rash/Hives Verified 02/13/20 13:42 [From Bactrim] Review of Systems ROS Statement: Those systems with pertinent positive or pertinent negative responses have been documented in the HPI. ROS Other: All systems not noted in ROS Statement are negative. Constitutional: Denies: fever Eyes: Denies: eye pain ENT: Denies: ear pain Respiratory: Denies: cough Cardiovascular: Denies: chest pain Endocrine: Denies: fatigue Gastrointestinal: Denies: abdominal pain Genitourinary: Denies: dysuria Musculoskeletal: Denies: back pain Skin: Denies: rash Neurological: Denies: weakness Psychiatric: Reports: anxiety Past Medical History Past Medical History: Atrial Fibrillation, Coronary Artery Disease (CAD), Ca ncer, Heart Failure, COPD, CVA/TIA, Diabetes Mellitus, GERD/Reflux, Hyperlipidemia, Hypertension, Pneumonia, Renal Disease, Sleep Apnea/CPAP/BIPAP, Thyroid Disorder Additional Past Medical History / Comment(s): Ecoli UTI with Ecoli bacteremia/severe sepsis, CAP, vaginal yeast infection,. 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 History of Any Multi-Drug Resistant Organisms: None Reported Past Surgical History: Adenoidectomy, Back Surgery, Bariatric Surgery, Cholecystectomy, Heart Catheterization, Hysterectomy, Tonsillectomy Additional Past Surgical History / Comment(s): Cardiac caths 2010/2014, lap band placed/since removed, low back surgery, L carpal tunnel release x2, skin cancer removal, colonoscopies, bilateral cataract removals/lens implants. Past Anesthesia/Blood Transfusion Reactions: No Reported Reaction Past Psychological History: No Psychological Hx Reported Smoking Status: Never smoker Past Alcohol Use History: None Reported Past Drug Use History: None Reported - Past Family History Sister(s) Family Medical History: Myocardial Infarction ([place]) Brother(s) Family Medical History: Cancer Additional Family Medical History / Comment(s): colon Mother Family Medical History: Dementia Additional Family Medical History / Comment(s): Mother of dementia at the age of 89yrs. Father Additional Family Medical History / Comment(s): Pt states her father was treated for a sinus infection but really had leukemia and of this at the age of 72 yrs. General Exam Limitations: no limitations General appearance: alert, in no apparent distress Head exam: Present: normocephalic Eye exam: Present: normal appearance Neck exam: Present: normal inspection Respiratory exam: Present: normal lung sounds bilaterally Cardiovascular Exam: Present: regular rate, normal rhythm Expanded Peripheral pulses: 2+: Dorsalis Pedis (R), Dorsalis Pedis (L) GI/Abdominal exam: Present: soft. Absent: tenderness Extremities exam: Present: normal inspection Back exam: Present: normal inspection. Absent: tenderness Neurological exam: Present: alert. Absent: motor sensory deficit Psychiatric exam: Present: normal affect, normal mood Skin exam: Present: normal color Course Vital Signs 02/13/20 13:38 Temperature 98.3 F Pulse Rate 92 Respiratory 16 Rate Blood Pressure 156/79 O2 Sat by Pulse 97 Oximetry Medical Decision Making - Medical Decision Making Patient reevaluated and resting comfortably in bed. Patient feels much better. Patient updated on renal function and sclerae. Patient is advised follow-up with both. Patient request and Ativan to take home with her. Disposition Clinical Impression: Acute anxiety Disposition: HOME SELF-CARE Condition: Stable Instructions (If sedation given, give patient instructions): Generalized Anxiety Disorder (ED) Additional Instructions: Please follow-up with primary care physician in the next couple days for recheck. Please have primary care physician review recent studies including lab work and x-rays. Please also follow-up with your kidney doctor and back doctor is planned. Return for worsening symptoms or other concerns. Is patient prescribed a controlled substance at d/c from ED?: No Referrals: Miguelito Fontenot [Primary Care Provider] - 1-2 days Time of Disposition: 15:16
[2020-02-13 15:30] VITALS: BP 186/84; PULSE 78; RESP 18; TEMP 97.7
== END 2020-02-13 15:30 | disposition home or self-care (01) ==
LOC: EC 13:14
DX: F41.9 Anxiety disorder, unspecified (principal); I48.91 Unspecified atrial fibrillation; I25.10 Atherosclerotic heart disease of native coronary artery without angina pectoris; I13.0 Hypertensive heart and chronic kidney disease with heart failure and stage 1 through stage 4 chronic kidney disease, or unspecified chronic kidney disease; N18.3 Chronic kidney disease, stage 3 (moderate); I50.9 Heart failure, unspecified; E78.5 Hyperlipidemia, unspecified; E55.9 Vitamin D deficiency, unspecified; Z79.899 Other long term (current) drug therapy; Z88.1 Allergy status to other antibiotic agents; Z88.2 Allergy status to sulfonamides; Z88.8 Allergy status to other drugs, medicaments and biological substances; Z86.73 Personal history of transient ischemic attack (TIA), and cerebral infarction without residual deficits
CPT/HCPCS: 99283

== ENCOUNTER 2020-03-02 17:31 | Emergency (ER) | payer MEDICARE ==
[2020-03-02 17:35] VITALS: RESP 18; TEMP 97.7
--- NOTE | 2020-03-02 18:14 | ED ---
Recheck HPI - General Chief Complaint: Recheck/Abnormal Lab/Rx Stated Complaint: High BP Time Seen by Provider: 03/02/20 17:45 Source: patient, RN notes reviewed Mode of arrival: ambulatory Limitations: no limitations - History of Present Illness Initial Comments: This a 71-year-old female history of hypertension and atrial fibrillation who presents with complaints of elevated BP today. She states her blood pressure was 205/96. She states she had a bagel for breakfast low-sodium soup for lunch but didn't feel well no posterior pressure was elevated as stated just elevated shortness of breath with it now she feels somewhat better she did take her blood pressure medication earlier prior to arrival here. No complaints of fevers chills nausea vomiting sweats no cough or phlegm production no other symptoms at this time no chest pain. - Related Data Home Medications Medication Instructions Recorded Confirmed Atorvastatin [Lipitor] 80 mg PO HS 06/30/18 06/18/19 Lisinopril 40 mg PO DAILY 01/06/19 06/18/19 Potassium Chloride ER [K-Dur 10] 10 meq PO BID 01/06/19 06/18/19 hydrALAZINE HCL [Apresoline] 100 mg PO BID 01/06/19 06/18/19 Cholecalciferol [Vitamin D3 (25 1,000 unit PO DAILY 06/18/19 06/18/19 Mcg = 1000 Iu)] Ergocalciferol [Vitamin D2 50,000 unit PO QMONTH 06/18/19 06/18/19 (DRISDOL)] Furosemide [Lasix] 40 mg PO DAILY 06/18/19 06/18/19 Vitamin E (Dl,Tocopheryl Acet) 400 unit PO DAILY 06/18/19 06/18/19 [Vitamin E] amLODIPine BESYLATE 10 mg PO DAILY 06/18/19 06/18/19 Previous Rx's Medication Instructions Recorded Apixaban [Eliquis] 5 mg PO BID #60 tab 07/04/18 Metoprolol Succinate (ER) [Toprol 25 mg PO DAILY #30 tab.er.24h 07/04/18 XL] Levothyroxine Sodium [Synthroid] 125 mcg PO DAILY #30 tab 01/08/19 INSULIN ASPART (NovoLOG) [NovoLOG 14 unit SQ AC-TID #1 vial 06/19/19 (formulary)] Insulin Detemir (Levemir) [Levemir] 40 unit SQ DAILY@0700 30 Days #1 06/19/19 pen Allergies Allergy/AdvReac Type Severity Reaction Status Date / Time azithromycin Allergy Rash/Hives Verified 02/13/20 13:42 [From Zithromax Z-Jeanmarie] methylprednisolone Allergy Unknown Verified 02/13/20 13:42 [From Medrol] Childhood trimethoprim [From Bactrim] Allergy Rash/Hives Verified 02/13/20 13:42 hydrochlorothiazide AdvReac lost Verified 02/13/20 13:42 balance and fell sulfamethoxazole AdvReac Rash/Hives Verified 02/13/20 13:42 [From Bactrim] Review of Systems ROS Statement: Those systems with pertinent positive or pertinent negative responses have been documented in the HPI. ROS Other: All systems not noted in ROS Statement are negative. Past Medical History Past Medical History: Atrial Fibrillation, Coronary Artery Disease (CAD), Cancer, Heart Failure, COPD, CVA/TIA, Diabetes Mellitus, GERD/Reflux, Hyperlipidemia, Hypertension, Pneumonia, Renal Disease, Sleep Apnea/CPAP/BIPAP, Thyroid Disorder Additional Past Medical History / Comment(s): Ecoli UTI with Ecoli bacteremia/severe sepsis, CAP, vaginal yeast infection,. 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 History of Any Multi-Drug Resistant Organisms: None Reported Past Surgical History: Adenoidectomy, Back Surgery, Bariatric Surgery, Cholecystectomy, Heart Catheterization, Hysterectomy, Tonsillectomy Additional Past Surgical History / Comment(s): Cardiac caths , lap band placed/since removed, low back surgery, L carpal tunnel release x2, skin cancer removal, colonoscopies, bilateral cataract removals/lens implants. Past Anesthesia/Blood Transfusion Reactions: No Reported Reaction Past Psychological History: No Psychological Hx Reported Past Alcohol Use History: None Reported Past Drug Use History: None Reported - Past Family History Sister(s) Family Medical History: Myocardial Infarction ([place]) Brother(s) Family Medical History: Cancer Additional Family Medical History / Comment(s): colon Mother Family Medical History: Dementia Additional Family Medical History / Comment(s): Mother of dementia at the age of 89yrs. Father Additional Family Medical History / Comment(s): Pt states her father was treated for a sinus infection but really had leukemia and of this at the age of 72 yrs. General Exam - General Exam Comments Initial Comments: This is a well-developed well-nourished awake alert oriented 3 female Limitations: no limitations General appearance: alert, anxious Head exam: Present: atraumatic, normocephalic, normal inspection Eye exam: Present: normal appearance, PERRL, EOMI. Absent: scleral icterus, conjunctival injection, periorbital swelling ENT exam: Present: mucous membranes dry Neck exam: Present: normal inspection. Absent: tenderness, meningismus, lymphadenopathy Respiratory exam: Present: normal lung sounds bilaterally. Absent: respiratory distress, wheezes, rales, rhonchi, stridor Cardiovascular Exam: Present: regular rate, normal rhythm, normal heart sounds. Absent: systolic murmur, diastolic murmur, rubs, gallop, clicks GI/Abdominal exam: Present: soft, normal bowel sounds. Absent: distended, tenderness, guarding, rebound, rigid Extremities exam: Present: normal inspection, full ROM, normal capillary refill. Absent: tenderness, pedal edema, joint swelling, calf tenderness Back exam: Present: normal inspection Neurological exam: Present: alert, oriented X3, CN II-XII intact Psychiatric exam: Present: normal affect, normal mood Skin exam: Present: warm, dry, intact, normal color. Absent: rash Course Vital Signs 03/02/20 03/02/20 03/02/20 17:32 18:00 18:30 Temperature 97.7 F Pulse Rate 84 Respiratory 18 Rate Blood Pressure 196/95 176/86 178/79 O2 Sat by Pulse 97 Oximetry 03/02/20 19:07 Temperature Pulse Rate 69 Respiratory 18 Rate Blood Pressure 184/77 O2 Sat by Pulse 99 Oximetry Medical Decision Making - Medical Decision Making Reevaluation patient finds that she feels much improved this time her pressure has improved. She will be discharged I did recommend increasing her oral fluids. She is following up with her doctor she also has a appointment try to see her diabetic doctor. - Lab Data Result diagrams: 03/02/20 18:21 03/02/20 18:21 Lab Results 07/14/20 07/14/20 07/14/20 Range/Units 18:02 18:21 18:21 WBC 9.9 (3.8-10.6) k/uL RBC 3.97 (3.80-5.40) m/uL Hgb 11.9 (11.4-16.0) gm/dL Hct 36.0 (34.0-46.0) % MCV 90.8 (80.0-100.0) fL MCH 29.9 (25.0-35.0) pg MCHC 32.9 (31.0-37.0) g/dL RDW 13.5 (11.5-15.5) % Plt Count 255 (150-450) k/uL Neutrophils % 65 % Lymphocytes % 17 % Monocytes % 10 % Eosinophils % 4 % Basophils % 0 % Neutrophils # 6.4 (1.3-7.7) k/uL Lymphocytes # 1.7 (1.0-4.8) k/uL Monocytes # 1.0 (0-1.0) k/uL Eosinophils # 0.4 (0-0.7) k/uL Basophils # 0.0 (0-0.2) k/uL Sodium 137 (137-145) mmol/L Potassium 3.5 (3.5-5.1) mmol/L Chloride 100 (98-107) mmol/L Carbon Dioxide 29 (22-30) mmol/L Anion Gap 8 mmol/L BUN 25 H (7-17) mg/dL Creatinine 1.28 H (0.52-1.04) mg/dL Est GFR (CKD-EPI)AfAm 47 (>60 ml/min/1.73 sqM) Est GFR (CKD-EPI)NonAf 40 (>60 ml/min/1.73 sqM) Glucose 202 H (74-99) mg/dL Calcium 8.9 (8.4-10.2) mg/dL Magnesium 2.0 (1.6-2.3) mg/dL Total Bilirubin 0.5 (0.2-1.3) mg/dL AST 31 (14-36) U/L ALT 25 (4-34) U/L Alkaline Phosphatase 120 (38-126) U/L Creatine Kinase 130 (30-135) U/L Total Protein 6.4 (6.3-8.2) g/dL Albumin 3.8 (3.5-5.0) g/dL Urine Color Light Yellow Urine Appearance Clear (Clear) Urine pH 7.0 (5.0-8.0) Ur Specific Lingle 1.004 (1.001-1.035) Urine Protein 1+ H (Negative) Urine Glucose (UA) Negative (Negative) Urine Ketones Negative (Negative) Urine Blood Negative (Negative) Urine Nitrite Negative (Negative) Urine Bilirubin Negative (Negative) Urine Urobilinogen <2.0 (<2.0) mg/dL Ur Leukocyte Esterase Trace H (Negative) Urine RBC 1 (0-5) /hpf Urine WBC 4 (0-5) /hpf - EKG Data -: EKG Interpreted by [place] EKG shows normal: sinus rhythm EKG Comments: Sinus rhythm a 74 MS interval 132 QRS duration 124 QT since QTC 436/43 LVH poor R-wave progression. - Radiology Data Radiology results: report reviewed (I did review the imaging and report no acute findings.), image reviewed Disposition Clinical Impression: Hypertension, Dehydration Disposition: HOME SELF-CARE Condition: Good Instructions (If sedation given, give patient instructions): Hypertension (ED), Dehydration (ED) Is patient prescribed a controlled substance at d/c from ED?: No Referrals: Miguelito Fontenot [Primary Care Provider] - 1-2 days
[2020-03-02 18:23] LABS: Appearance,Urine Clear (Clear); Bilirubin,Urine Negative (Negative); Blood,Urine Negative (Negative); Color,Urine Light Yellow; Glucose,Urine (UA) Negative (Negative); Ketones,Urine Negative (Negative); Leukocyte Esterase,Urine Trace (Negative); Nitrite,Urine Negative (Negative); Protein,Urine 1+ (Negative); RBC,Urine 1 /hpf (0-5); Specific Gravity,Urine 1.004 (1.001-1.035); Urobilinogen,Urine <2.0 mg/dL (<2.0); WBC,Urine 4 /hpf (0-5)
[2020-03-02 18:29] LABS: Basophils % (A) 0 %; Eosinophils # (A) 0.4 k/uL (0-0.7); Eosinophils % (A) 4 %; HGB 11.9 gm/dL (11.4-16.0); Lymphocytes # (A) 1.7 k/uL (1.0-4.8); Lymphocytes % (A) 17 %; MCH 29.9 pg (25.0-35.0); MCHC 32.9 g/dL (31.0-37.0); MCV 90.8 fL (80.0-100.0); Mean Platelet Volume 7.8; Monocytes % (A) 10 %; Neutrophils # (A) 6.4 k/uL (1.3-7.7); Neutrophils % (A) 65 %; Platelet Count 255 k/uL (150-450); RBC 3.97 m/uL (3.80-5.40); RDW 13.5 % (11.5-15.5); WBC 9.9 k/uL (3.8-10.6)
[2020-03-02 18:48] LABS: Albumin 3.8 g/dL (3.5-5.0); Calcium 8.9 mg/dL (8.4-10.2); Potassium 3.5 mmol/L (3.5-5.1); Total Bilirubin 0.5 mg/dL (0.2-1.3); Total Protein 6.4 g/dL (6.3-8.2)
--- NOTE | 2020-03-02 18:58 | XR ---
EXAMINATION TYPE: XR chest 2V DATE OF EXAM: 03/02/2020 COMPARISON: 01/06/2019 INDICATION: Elevated blood pressure TECHNIQUE: Frontal and lateral views of the chest are obtained. FINDINGS: The heart size is normal. The pulmonary vasculature is normal. The lungs are clear. IMPRESSION: 1. No acute pulmonary process.
[2020-03-02 19:08] VITALS: BP 184/77; PULSE 69
== END 2020-03-02 19:27 | disposition home or self-care (01) ==
LOC: EC 17:31
DX: I13.0 Hypertensive heart and chronic kidney disease with heart failure and stage 1 through stage 4 chronic kidney disease, or unspecified chronic kidney disease (principal); I50.9 Heart failure, unspecified; N18.3 Chronic kidney disease, stage 3 (moderate); E86.0 Dehydration; I48.91 Unspecified atrial fibrillation; I25.10 Atherosclerotic heart disease of native coronary artery without angina pectoris; E78.5 Hyperlipidemia, unspecified; Z79.899 Other long term (current) drug therapy; Z88.1 Allergy status to other antibiotic agents; Z88.8 Allergy status to other drugs, medicaments and biological substances; Z88.2 Allergy status to sulfonamides; Z86.73 Personal history of transient ischemic attack (TIA), and cerebral infarction without residual deficits; Z99.89 Dependence on other enabling machines and devices
CPT/HCPCS: 36415; 71046; 80053; 81001; 82550; 83735; 85025; 93005; 99283

== ENCOUNTER 2020-03-30 06:31 | Day surgery (SDC) | payer MEDICARE ==
[2020-03-26 14:58] VITALS: BMI 36.8
[~2020-03-30 06:31] MED LIST changes: +LIDOCAINE 1% (10MG/ML) FOR IV START INTRADERMA PRN
[2020-03-30] MEDS ORDERED: LACTATED RINGERS 1,000 ML IV ONE (06:50)
[2020-03-30 07:20] LABS: Glucose,Whole Blood 300 mg/dL (75-99)
[2020-03-30] MEDS ORDERED: INSULIN ASPART (NovoLOG) 100 UNIT/ML VIAL SQ ONE (07:24)
[2020-03-30 07:27] VITALS: RESP 16; TEMP 98.3
[2020-03-30] MEDS ORDERED: PROPOFOL 10 MG/ML 20 ML VIAL IV ONE (07:34)
--- NOTE | 2020-03-30 08:11 | P.PCN ---
Date of Procedure: 03/30/20 Description of Procedure: BRIEF HISTORY: Patient is a 71-year-old female with a medical history significant for chronic constipation who presented for evaluation due to altered bowel function and is scheduled for colonoscopy for evaluation. She reports worsening constipation and episodes of incontinence and loose stools. The patient does have a history of colon cancer in her brother. PROCEDURE PERFORMED: Colonoscopy with polypectomy. PREOPERATIVE DIAGNOSIS: Altered bowel function, change in bowel habits. ESTIMATED BLOOD LOSS: Minimal. IV sedation per Anesthesia. PROCEDURE: After informed consent was obtained, the patient, was brought into the endoscopy unit. IV sedation was administered by Anesthesia under continuous monitoring. Digital rectal examination was normal. Initially the Olympus CF-190 flexible video colonoscope was then inserted in the rectum, gradually advanced into the cecum without any difficulty. Careful examination was performed as the scope was gradually being withdrawn. Ileocecal valve and the appendiceal orifice were visualized and appeared normal. Prep was excellent. Mucosa of the cecum, ascending colon, transverse colon, descending colon, sigmoid colon, and rectum appeared normal. 2 diminutive rectal polyps measuring 1-2 mm in size removed with cold forcep polypectomy. Retroflexion was performed in the rectum and no lesions were seen, low-grade internal hemorrhoids. The patient tolerated the procedure well. IMPRESSION: 2 diminutive rectal polyps. Low-grade internal hemorrhoids. Otherwise normal-appearing colon from rectum to cecum. RECOMMENDATIONS: Findings of this examination were discussed with the patient. Okay to resume diet. Okay to resume medications. Await pathology from polypectomies. Follow- up in gastroenterology clinic as scheduled. Would recommend repeat colonoscopy in 5 years given family history of colon cancer in her brother.
[2020-03-30 08:12] LABS: Glucose,Whole Blood 311 mg/dL (75-99)
[2020-03-30 08:23] VITALS: BP 162/95; PULSE 83
== END 2020-03-30 08:57 | disposition home or self-care (01) ==
LOC: ORWHC2ENDO 06:31
PROVIDERS: ATTEND Internal Medicine
DX: K62.1 Rectal polyp (principal); K64.8 Other hemorrhoids; K59.09 Other constipation; Z80.0 Family history of malignant neoplasm of digestive organs; I25.10 Atherosclerotic heart disease of native coronary artery without angina pectoris; I10 Essential (primary) hypertension; J44.9 Chronic obstructive pulmonary disease, unspecified; G47.33 Obstructive sleep apnea (adult) (pediatric); E11.9 Type 2 diabetes mellitus without complications; E66.01 Morbid (severe) obesity due to excess calories; Z88.1 Allergy status to other antibiotic agents; Z88.8 Allergy status to other drugs, medicaments and biological substances; Z88.2 Allergy status to sulfonamides; Z79.899 Other long term (current) drug therapy; Z79.84 Long term (current) use of oral hypoglycemic drugs; Z79.890 Hormone replacement therapy; Z79.01 Long term (current) use of anticoagulants; Z98.890 Other specified postprocedural states; Z90.89 Acquired absence of other organs; Z90.49 Acquired absence of other specified parts of digestive tract; Z90.710 Acquired absence of both cervix and uterus; Z98.41 Cataract extraction status, right eye; Z98.42 Cataract extraction status, left eye; Z68.37 Body mass index [BMI] 37.0-37.9, adult
CPT/HCPCS: 88305; 45380; J2704

== ENCOUNTER → 2020-04-06 | Outpatient (CLI) | payer MEDICARE ==
[2020-04-06 09:40] LABS: HGB 10.8 gm/dL (11.4-16.0); Hypochromasia Slight; MCH 28.2 pg (25.0-35.0); MCHC 30.8 g/dL (31.0-37.0); MCV 91.8 fL (80.0-100.0); Platelet Count 247 k/uL (150-450); RBC 3.81 m/uL (3.80-5.40); RDW 13.2 % (11.5-15.5); WBC 9.1 k/uL (3.8-10.6)
[2020-04-06 13:51] LABS: Appearance,Urine Clear (Clear); Bilirubin,Urine Negative (Negative); Blood,Urine Negative (Negative); Color,Urine Light Yellow; Glucose,Urine (UA) 4+ (Negative); Ketones,Urine Negative (Negative); Leukocyte Esterase,Urine Small (Negative); Nitrite,Urine Negative (Negative); PH, Urine 6.5 (5.0-8.0); Protein,Urine 2+ (Negative); RBC,Urine 2 /hpf (0-5); Specific Gravity,Urine 1.014 (1.001-1.035); Squamous Epithelial Cell,Urine 1 /hpf (0-4); Urobilinogen,Urine <2.0 mg/dL (<2.0); WBC,Urine 4 /hpf (0-5)
[2020-04-06 19:15] LABS: % Iron Saturation 13.76 (12.00-45.00); African American GFR (CKD) 45.5 (60.0-200.0); Albumin 3.8 g/dL (3.80-4.90); Albumin/Globulin Ratio 1.9 (1.60-3.17); Anion Gap 8.3 mmol/L (4.00-12.00); BUN/Creat Ratio 19.23 Ratio (12.00-20.00); Calcium 8.6 mg/dL (8.7-10.3); Carbon Dioxide 27.7 mmol/L (21.6-31.8); Chol/HDL Ratio 2.28; Ferritin 17.9 ng/mL (10.0-291.0); LDL Cholesterol,Calculated 50.6 mg/dL (0.0-131.0); Non-African American GFR(CKD) 39.3 (60.0-200.0); Phosphorus 3.3 mg/dL (2.4-5.1); Potassium 4.2 mmol/L (3.5-5.5); Total Bilirubin 0.4 mg/dL (0.3-1.2); Total Protein 5.8 g/dL (6.2-8.2); VLDL Calculation 35.4 mg/dL (5.00-40.00)
[2020-04-07 02:30] LABS: Urine Creatinine 86.3 mg/dL
== END | disposition home or self-care (01) ==
LOC: LABWHC1 08:45
PROVIDERS: ATTEND Internal Medicine Interventional Cardiology
DX: N18.3 Chronic kidney disease, stage 3 (moderate) (principal); D63.1 Anemia in chronic kidney disease; N39.0 Urinary tract infection, site not specified; R80.9 Proteinuria, unspecified; N25.81 Secondary hyperparathyroidism of renal origin; M10.9 Gout, unspecified; E55.9 Vitamin D deficiency, unspecified; E78.2 Mixed hyperlipidemia
CPT/HCPCS: 36415; 80053; 80061; 81001; 82043; 82306; 82570; 82728; 83540; 83550; 83735; 83970; 84100; 84550; 85027

== ENCOUNTER → 2020-05-20 | Outpatient (CLI) | payer MEDICARE ==
--- NOTE | 2020-05-21 12:14 | MM ---
Reason for exam: screening (asymptomatic). Last mammogram was performed 1 year ago. History: Patient is postmenopausal and has history of other cancer at age 60. Family history of breast cancer in paternal aunt at age 70, breast cancer in paternal aunt, and breast cancer in paternal grandmother. Benign excisional biopsy of the right breast. Took estrogen for 5 years. Physical Findings: A clinical breast exam by your physician is recommended on an annual basis and results should be correlated with mammographic findings. MG 3D Screening Mammo W/Cad Bilateral CC and MLO view(s) were taken. Prior study comparison: May 08, 2019, bilateral MG 3d screening mammo w/cad. May 03, 2018, bilateral MG 3d screening mammo w/cad. There are scattered fibroglandular densities. There are benign appearing round calcifications bilaterally. There is no discrete abnormality. ASSESSMENT: Benign, BI-RAD 2 RECOMMENDATION: Routine screening mammogram of both breasts in 1 year.
== END | disposition home or self-care (01) ==
LOC: RADMAMWWP 15:53
PROVIDERS: ATTEND Family Medicine
DX: Z12.31 Encounter for screening mammogram for malignant neoplasm of breast (principal)
CPT/HCPCS: 77063; 77067

== ENCOUNTER 2020-05-30 01:01 | Observation (INO) | payer MEDICARE ==
--- NOTE | 2020-05-30 01:25 | ED ---
SOB HPI - General Chief Complaint: Shortness of Breath Stated Complaint: Shortness of Breath, Chest Pain Source: patient, family Mode of arrival: wheelchair Limitations: no limitations - History of Present Illness Initial Comments: Neva is a pleasant 79 yo female who presents to the ER today for evaluation of shortness of breath and tightness in her chest. Patient reports she has a history of CHF and COPD. 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 She follows with Dr Hamilton for cardiology. Patient states that she's been in her usual state of health until this evening when she began yelling short of breath. She does note that earlier in the day she noted that her lower extremities had more edema than typical. She states that this evening she just began feeling like she couldn't catch her breath she felt pressure in her chest. She denies any associated palpitations lightheadedness diaphoresis. She denies any associated nausea vomiting or diarrhea. Denies any sick contacts. - Related Data Home Medications Medication Instructions Recorded Confirmed Atorvastatin [Lipitor] 80 mg PO HS 06/30/18 05/12/20 hydrALAZINE HCL [Apresoline] 100 mg PO TID 01/06/19 05/12/20 lisinopriL 40 mg PO DAILY 01/06/19 05/12/20 Cholecalciferol [Vitamin D3 (25 1,000 unit PO DAILY 06/18/19 05/12/20 Mcg = 1000 Iu)] Ergocalciferol [Vitamin D2 50,000 unit PO QMONTH 06/18/19 05/12/20 (DRISDOL)] Furosemide [Lasix] 40 mg PO DAILY 06/18/19 05/12/20 amLODIPine BESYLATE 10 mg PO DAILY 06/18/19 05/12/20 Calcium Acetate [Phoslo] 667 mg PO TID 03/26/20 05/12/20 Insulin Glargine [Lantus] 40 unit SQ HS 03/26/20 05/12/20 Insulin Lispro [humaLOG Kwikpen] 15 unit SQ AC-TID 03/26/20 05/12/20 Magnesium 500 mg PO DAILY 03/26/20 05/12/20 Pioglitazone [Actos] 15 mg PO DAILY 03/26/20 05/12/20 Previous Rx's Medication Instructions Recorded Apixaban [Eliquis] 5 mg PO BID #60 tab 07/04/18 Metoprolol Succinate (ER) [Toprol 25 mg PO DAILY #30 tab.er.24h 07/04/18 XL] Levothyroxine Sodium [Synthroid] 125 mcg PO DAILY #30 tab 01/08/19 Allergies Allergy/AdvReac Type Severity Reaction Status Date / Time azithromycin Allergy Rash/Hives Verified 05/30/20 01:08 [From Zithromax Z-Jeanmarie] methylprednisolone Allergy Unknown Verified 05/30/20 01:08 [From Medrol] Childhood trimethoprim [From Bactrim] Allergy Rash/Hives Verified 05/30/20 01:08 hydrochlorothiazide AdvReac lost Verified 05/30/20 01:08 balance and fell sulfamethoxazole AdvReac Rash/Hives Verified 05/30/20 01:08 [From Bactrim] Review of Systems ROS Statement: Those systems with pertinent positive or pertinent negative responses have been documented in the HPI. ROS Other: All systems not noted in ROS Statement are negative. Past Medical History Past Medical History: Atrial Fibrillation, Coronary Artery Disease (CAD), Cancer, Heart Failure, COPD, CVA/TIA, Diabetes Mellitus, Hyperlipidemia, Hypertension, Musculoskeletal Disorder, Pneumonia, Renal Disease, Sleep Apnea/CPAP/BIPAP, Thyroid Disorder Additional Past Medical History / Comment(s): Ecoli UTI w/ Ecoli bacteremia/severe sepsis, CAP,. 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 Skin cancer. History of Any Multi-Drug Resistant Organisms: None Reported Past Surgical History: Adenoidectomy, Back Surgery, Bariatric Surgery, Cholecys tectomy, Heart Catheterization, Hysterectomy, Tonsillectomy Additional Past Surgical History / Comment(s): Cardiac caths , lap band placed/since removed, low back surgery, L carpal tunnel release x2, skin cancer removal, colonoscopies, bilateral cataract removals/lens implants. Past Anesthesia/Blood Transfusion Reactions: Previous Problems w/ Anesthesia Additional Past Anesthesia/Blood Transfusion Reaction / Comment(s): "Had too much anesthesia in 2007 for lab band removal, had to be bagged." Past Psychological History: No Psychological Hx Reported Smoking Status: Never smoker Past Alcohol Use History: None Reported Past Drug Use History: None Reported - Past Family History Sister(s) Family Medical History: Myocardial Infarction ([place]) Brother(s) Family Medical History: Cancer Additional Family Medical History / Comment(s): colon Mother Family Medical History: Dementia Additional Family Medical History / Comment(s): Mother of dementia at the age of 89yrs. Father Family Medical History: Cancer Additional Family Medical History / Comment(s): Pt states her father was treated for a sinus infection but really had leukemia and of this at the age of 72 yrs. General Exam - General Exam Comments Initial Comments: Physical Exam GENERAL: Patient is well-developed and well-nourished. Patient is nontoxic and well-hydrated and is in no distress. HENT: Normocephalic, Atraumatic. EYES: PERRL, EOMI PULMONARY: Unlabored respirations. No audible rales rhonchi or wheezing was noted. CARDIOVASCULAR: There is a regular rate and rhythm 2+ pitting edema right > Left lower extremity ABDOMEN: Obese Soft and nontender with normal bowel sounds. SKIN: Skin is pale, dry, no lesions or rashes and otherwise unremarkable. : Deferred NEUROLOGIC: Patient is alert and oriented x3. Moving all extremities spontaneously MUSCULOSKELETAL: Normal extremities with adequate strength and full range of motion. PSYCHIATRIC: Normal psychiatric evaluation. Limitations: no limitations Course Vital Signs 05/30/20 05/30/20 05/30/20 01:04 01:57 02:47 Temperature 100 F H 98.5 F Pulse Rate 105 H 91 Respiratory 22 22 22 Rate Blood Pressure 189/79 146/68 O2 Sat by Pulse 97 94 L Oximetry 05/30/20 03:53 Temperature Pulse Rate 88 Respiratory 22 Rate Blood Pressure 157/81 O2 Sat by Pulse 95 Oximetry Medical Decision Making - Medical Decision Making She was seen and evaluated history is obtained from the patient Morbidly obese 79-year-old female was mildly hypoxic 90% SpO2 on room air upon initial evaluation Physical exam reveals some mild lower extremity edema, clear lung sounds I applied 2 L nasal cannula the patient however she stated that she didn't like the smell could not tolerate it Cardiac workup was initiated was relatively unremarkable Given the patient's advanced age, cardiac history, COPD, hypoxia I will plan to place her in observation for possible CHF - Lab Data Result diagrams: 05/30/20 01:34 05/30/20 01:34 Lab Results 05/30/20 05/30/20 05/30/20 Range/Units 01:34 01:34 01:34 WBC 13.9 H (3.8-10.6) k/uL RBC 3.75 L (3.80-5.40) m/uL Hgb 10.0 L (11.4-16.0) gm/dL Hct 32.7 L (34.0-46.0) % MCV 87.2 (80.0-100.0) fL MCH 26.6 (25.0-35.0) pg MCHC 30.5 L (31.0-37.0) g/dL RDW 13.7 (11.5-15.5) % Plt Count 275 (150-450) k/uL Neutrophils % 73 % Lymphocytes % 10 % Monocytes % 11 % Eosinophils % 4 % Basophils % 0 % Neutrophils # 10.1 H (1.3-7.7) k/uL Lymphocytes # 1.4 (1.0-4.8) k/uL Monocytes # 1.5 H (0-1.0) k/uL Eosinophils # 0.6 (0-0.7) k/uL Basophils # 0.0 (0-0.2) k/uL Hypochromasia Slight PT 10.3 (9.0-12.0) sec INR 1.0 (<1.2) APTT 25.7 (22.0-30.0) sec Sodium (137-145) mmol/L Potassium (3.5-5.1) mmol/L Chloride (98-107) mmol/L Carbon Dioxide (22-30) mmol/L Anion Gap mmol/L BUN (7-17) mg/dL Creatinine (0.52-1.04) mg/dL Est GFR (CKD-EPI)AfAm (>60 ml/min/1.73 sqM) Est GFR (CKD-EPI)NonAf (>60 ml/min/1.73 sqM) Glucose (74-99) mg/dL Plasma Lactic Acid Terry (0.7-2.0) mmol/L Calcium (8.4-10.2) mg/dL Total Bilirubin (0.2-1.3) mg/dL AST (14-36) U/L ALT (4-34) U/L Alkaline Phosphatase (38-126) U/L Creatine Kinase (30-135) U/L Troponin I (0.000-0.034) ng/mL NT-Pro-B Natriuret Pep pg/mL Total Protein (6.3-8.2) g/dL Albumin (3.5-5.0) g/dL Urine Color Light Yellow Urine Appearance Clear (Clear) Urine pH 6.5 (5.0-8.0) Ur Specific [place] 1.013 (1.001-1.035) Urine Protein 2+ H (Negative) Urine Glucose (UA) Negative (Negative) Urine Ketones Negative (Negative) Urine Blood Negative (Negative) Urine Nitrite Negative (Negative) Urine Bilirubin Negative (Negative) Urine Urobilinogen <2.0 (<2.0) mg/dL Ur Leukocyte Esterase Trace H (Negative) Urine RBC 3 (0-5) /hpf Urine WBC 1 (0-5) /hpf 05/30/20 05/30/20 05/30/20 Range/Units 01:34 01:34 01:34 WBC (3.8-10.6) k/uL RBC (3.80-5.40) m/uL Hgb (11.4-16.0) gm/dL Hct (34.0-46.0) % MCV (80.0-100.0) fL MCH (25.0-35.0) pg MCHC (31.0-37.0) g/dL RDW (11.5-15.5) % Plt Count (150-450) k/uL Neutrophils % % Lymphocytes % % Monocytes % % Eosinophils % % Basophils % % Neutrophils # (1.3-7.7) k/uL Lymphocytes # (1.0-4.8) k/uL Monocytes # (0-1.0) k/uL Eosinophils # (0-0.7) k/uL Basophils # (0-0.2) k/uL Hypochromasia PT (9.0-12.0) sec INR (<1.2) APTT (22.0-30.0) sec Sodium 136 L (137-145) mmol/L Potassium 4.2 (3.5-5.1) mmol/L Chloride 102 (98-107) mmol/L Carbon Dioxide 27 (22-30) mmol/L Anion Gap 7 mmol/L BUN 29 H (7-17) mg/dL Creatinine 1.23 H (0.52-1.04) mg/dL Est GFR (CKD-EPI)AfAm 49 (>60 ml/min/1.73 sqM) Est GFR (CKD-EPI)NonAf 42 (>60 ml/min/1.73 sqM) Glucose 255 H (74-99) mg/dL Plasma Lactic Acid Terry 1.5 (0.7-2.0) mmol/L Calcium 9.1 (8.4-10.2) mg/dL Total Bilirubin 0.6 (0.2-1.3) mg/dL AST 35 (14-36) U/L ALT 23 (4-34) U/L Alkaline Phosphatase 119 (38-126) U/L Creatine Kinase 105 (30-135) U/L Troponin I (0.000-0.034) ng/mL NT-Pro-B Natriuret Pep 773 pg/mL Total Protein 6.5 (6.3-8.2) g/dL Albumin 3.8 (3.5-5.0) g/dL Urine Color Urine Appearance (Clear) Urine pH (5.0-8.0) Ur Specific [place] (1.001-1.035) Urine Protein (Negative) Urine Glucose (UA) (Negative) Urine Ketones (Negative) Urine Blood (Negative) Urine Nitrite (Negative) Urine Bilirubin (Negative) Urine Urobilinogen (<2.0) mg/dL Ur Leukocyte Esterase (Negative) Urine RBC (0-5) /hpf Urine WBC (0-5) /hpf 05/30/20 Range/Units 01:34 WBC (3.8-10.6) k/uL RBC (3.80-5.40) m/uL Hgb (11.4-16.0) gm/dL Hct (34.0-46.0) % MCV (80.0-100.0) fL MCH (25.0-35.0) pg MCHC (31.0-37.0) g/dL RDW (11.5-15.5) % Plt Count (150-450) k/uL Neutrophils % % Lymphocytes % % Monocytes % % Eosinophils % % Basophils % % Neutrophils # (1.3-7.7) k/uL Lymphocytes # (1.0-4.8) k/uL Monocytes # (0-1.0) k/uL Eosinophils # (0-0.7) k/uL Basophils # (0-0.2) k/uL Hypochromasia PT (9.0-12.0) sec INR (<1.2) APTT (22.0-30.0) sec Sodium (137-145) mmol/L Potassium (3.5-5.1) mmol/L Chloride (98-107) mmol/L Carbon Dioxide (22-30) mmol/L Anion Gap mmol/L BUN (7-17) mg/dL Creatinine (0.52-1.04) mg/dL Est GFR (CKD-EPI)AfAm (>60 ml/min/1.73 sqM) Est GFR (CKD-EPI)NonAf (>60 ml/min/1.73 sqM) Glucose (74-99) mg/dL Plasma Lactic Acid Terry (0.7-2.0) mmol/L Calcium (8.4-10.2) mg/dL Total Bilirubin (0.2-1.3) mg/dL AST (14-36) U/L ALT (4-34) U/L Alkaline Phosphatase (38-126) U/L Creatine Kinase (30-135) U/L Troponin I <0.012 (0.000-0.034) ng/mL NT-Pro-B Natriuret Pep pg/mL Total Protein (6.3-8.2) g/dL Albumin (3.5-5.0) g/dL Urine Color Urine Appearance (Clear) Urine pH (5.0-8.0) Ur Specific [place] (1.001-1.035) Urine Protein (Negative) Urine Glucose (UA) (Negative) Urine Ketones (Negative) Urine Blood (Negative) Urine Nitrite (Negative) Urine Bilirubin (Negative) Urine Urobilinogen (<2.0) mg/dL Ur Leukocyte Esterase (Negative) Urine RBC (0-5) /hpf Urine WBC (0-5) /hpf - EKG Data -: EKG Interpreted by [facility] EKG Comments: EKG was obtained due to shortness breath, EKG was obtained at 1:44 AM, rate is 98 rhythm is sinus with PVC noted, MT is 146, QRS 140, QTC is prolonged at 497 there is a nonspecific intraventricular block no acute ST elevations or depressions no evidence of acute ischemia or infarction. Compared to EKG obtained in February of this year intraventricular block is new however there was previously QRS widening. Disposition Clinical Impression: Type 2 diabetes mellitus with hyperglycemia, CHF (congestive heart failure), Sleep apnea, Obesity (BMI 30-39.9) Disposition: ADMITTED IP TO THIS HOSP Condition: Stable Is patient prescribed a controlled substance at d/c from ED?: No
[2020-05-30 01:46] LABS: Basophils % (A) 0 %; Eosinophils # (A) 0.6 k/uL (0-0.7); Eosinophils % (A) 4 %; HCT 32.7 % (34.0-46.0); Hypochromasia Slight; Lymphocytes # (A) 1.4 k/uL (1.0-4.8); Lymphocytes % (A) 10 %; MCH 26.6 pg (25.0-35.0); MCHC 30.5 g/dL (31.0-37.0); MCV 87.2 fL (80.0-100.0); Mean Platelet Volume 7.8; Monocytes # (A) 1.5 k/uL (0-1.0); Monocytes % (A) 11 %; Neutrophils # (A) 10.1 k/uL (1.3-7.7); Neutrophils % (A) 73 %; Platelet Count 275 k/uL (150-450); RBC 3.75 m/uL (3.80-5.40); RDW 13.7 % (11.5-15.5); WBC 13.9 k/uL (3.8-10.6)
[2020-05-30 01:48] LABS: Appearance,Urine Clear (Clear); Bilirubin,Urine Negative (Negative); Blood,Urine Negative (Negative); Color,Urine Light Yellow; Glucose,Urine (UA) Negative (Negative); Ketones,Urine Negative (Negative); Leukocyte Esterase,Urine Trace (Negative); Nitrite,Urine Negative (Negative); PH, Urine 6.5 (5.0-8.0); Protein,Urine 2+ (Negative); RBC,Urine 3 /hpf (0-5); Specific Gravity,Urine 1.013 (1.001-1.035); Urobilinogen,Urine <2.0 mg/dL (<2.0); WBC,Urine 1 /hpf (0-5)
[2020-05-30 01:54] LABS: Partial Thromboplastin Time 25.7 sec (22.0-30.0); Prothrombin Time 10.3 sec (9.0-12.0)
[2020-05-30 01:56] LABS: Albumin 3.8 g/dL (3.5-5.0); Calcium 9.1 mg/dL (8.4-10.2); Potassium 4.2 mmol/L (3.5-5.1); Total Bilirubin 0.6 mg/dL (0.2-1.3); Total Protein 6.5 g/dL (6.3-8.2)
--- NOTE | 2020-05-30 02:09 | XR ---
EXAMINATION TYPE: XR chest 2V DATE OF EXAM: 05/30/2020 COMPARISON: 03/02/2020 HISTORY: Cough TECHNIQUE: FINDINGS: Heart is normal. There is slight coarsening of the pulmonary interstitial markings. There i s no pleural effusion. There are no hilar masses. There is no gross heart failure. Bony thorax is int act IMPRESSION: Slight increased interstitial markings compared to last exam. No pulmonary consolidation or heart failure.
[2020-05-30] MEDS ORDERED: FUROSEMIDE 10 MG/ML 4 ML VIAL IV STA ×2 (02:29→14:52)
[2020-05-30] MEDS ORDERED: FUROSEMIDE 10 MG/ML 4 ML VIAL IV SCH (03:45)
--- NOTE | 2020-05-30 04:55 | P.HPIM ---
History of Present Illness H&P Date: 05/30/20 Patient is a 79-year-old female with a PMH of type II DM, hypertension, A. fib on Eliquis, COPD, diastolic CHF, history of CVA, and DEBBIE who presented to the ED with complaints of shortness of breath. The patient notes that her symptoms started one week ago and have gradually worsened. She reported using her rescue inhaler multiple times with little relief. She noted that her breathing had gotten significantly worse today at which time she decided to come to the emergency room. She also reports long-standing lower extremity edema which is also somewhat worse. Reported some chest tightness with shortness of breath. Also endorsed episodes of paroxysmal nocturnal dyspnea and orthopnea. Denied fever, chills, cough. Denied nausea, vomiting, abdominal pain, or diarrhea. Chest x-ray in the emergency room was unremarkable. Laboratory evaluation revealed a WBC count of 13.9, hemoglobin 10.0, sodium 136, BUN 29, creatinine 1.23, glucose 255, troponin less than 0.012, with proBNP 773. Review of Systems Pertinent positives and negatives as discussed in HPI, a complete review of systems was performed and all other systems are negative. Past Medical History Past Medical History: Atrial Fibrillation, Coronary Artery Disease (CAD), Cancer, Heart Failure, COPD, CVA/TIA, Diabetes Mellitus, Hyperlipidemia, Hypertension, Musculoskeletal Disorder, Pneumonia, Renal Disease, Sleep Apnea/CPAP/BIPAP, Thyroid Disorder Additional Past Medical History / Comment(s): Ecoli UTI w/ Ecoli bacteremia/severe sepsis, CAP,. 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 Skin cancer. History of Any Multi-Drug Resistant Organisms: None Reported Past Surgical History: Adenoidectomy, Back Surgery, Bariatric Surgery, Cholecystectomy, Heart Catheterization, Hysterectomy, Tonsillectomy Additional Past Surgical History / Comment(s): Cardiac caths 2010/2014, lap band placed/since removed, low back surgery, L carpal tunnel release x2, skin cancer removal, colonoscopies, bilateral cataract removals/lens implants. Past Anesthesia/Blood Transfusion Reactions: Previous Problems w/ Anesthesia Additional Past Anesthesia/Blood Transfusion Reaction / Comment(s): "Had too much anesthesia in 2007 for lab band removal, had to be bagged." Past Psychological History: No Psychological Hx Reported Smoking Status: Never smoker Past Alcohol Use History: None Reported Past Drug Use History: None Reported - Past Family History Sister(s) Family Medical History: Myocardial Infarction ([place]) Brother(s) Family Medical History: Cancer Additional Family Medical History / Comment(s): colon Mother Family Medical History: Dementia Additional Family Medical History / Comment(s): Mother of dementia at the age of 89yrs. Father Family Medical History: Cancer Additional Family Medical History / Comment(s): Pt states her father was treated for a sinus infection but really had leukemia and of this at the age of 72 yrs. Medications and Allergies Home Medications Medication Instructions Recorded Confirmed Type Atorvastatin [Lipitor] 80 mg PO HS 06/30/18 05/12/20 History Apixaban [Eliquis] 5 mg PO BID #60 tab 07/04/18 05/12/20 Rx Metoprolol Succinate (ER) [Toprol 25 mg PO DAILY #30 tab.er.24h 07/04/18 05/12/20 Rx XL] hydrALAZINE HCL [Apresoline] 100 mg PO TID 01/06/19 05/12/20 History lisinopriL 40 mg PO DAILY 01/06/19 05/12/20 History Levothyroxine Sodium [Synthroid] 125 mcg PO DAILY #30 tab 01/08/19 05/12/20 Rx Cholecalciferol [Vitamin D3 (25 1,000 unit PO DAILY 06/18/19 05/12/20 History Mcg = 1000 Iu)] Ergocalciferol [Vitamin D2 50,000 unit PO QMONTH 06/18/19 05/12/20 History (DRISDOL)] Furosemide [Lasix] 40 mg PO DAILY 06/18/19 05/12/20 History amLODIPine BESYLATE 10 mg PO DAILY 06/18/19 05/12/20 History Calcium Acetate [Phoslo] 667 mg PO TID 03/26/20 05/12/20 History Insulin Glargine [Lantus] 40 unit SQ HS 03/26/20 05/12/20 History Insulin Lispro [humaLOG Kwikpen] 15 unit SQ AC-TID 03/26/20 05/12/20 History Magnesium 500 mg PO DAILY 03/26/20 05/12/20 History Pioglitazone [Actos] 15 mg PO DAILY 03/26/20 05/12/20 History Allergies Allergy/AdvReac Type Severity Reaction Status Date / Time azithromycin Allergy Rash/Hives Verified 05/30/20 01:08 [From Zithromax Z-Jeanmarie] methylprednisolone Allergy Unknown Verified 05/30/20 01:08 [From Medrol] Childhood trimethoprim [From Bactrim] Allergy Rash/Hives Verified 05/30/20 01:08 hydrochlorothiazide AdvReac lost Verified 05/30/20 01:08 balance and fell sulfamethoxazole AdvReac Rash/Hives Verified 05/30/20 01:08 [From Bactrim] Physical Exam Vitals: Vital Signs Temp Pulse Resp BP Pulse Ox 05/30/20 03:53 88 22 157/81 95 05/30/20 02:47 98.5 F 91 22 146/68 94 L 05/30/20 01:57 22 05/30/20 01:04 100 F H 105 H 22 189/79 97 Intake and Output 05/29/20 05/29/20 05/30/20 14:59 22:59 06:59 Other: Weight 97.522 kg General: non toxic, no distress, appears at stated age, morbidly obese Derm: no unusual rashes/lesions no unusual ecchymoses, warm, dry Head: atraumatic, normocephalic, symmetric Eyes: EOMI, no lid lag, anicteric sclera, pupils equal round reactive to light ENT: Nose and ears atraumatic, no thrush, no pharyngeal erythema Neck: No thyromegaly, no cervical lymphadenopathy, trachea midline, supple Mouth: no lip lesion, mucus membranes moist Cardiovascular: S1S2 reg, systolic murmur appreciated, positive posterior tibial pulse bilateral, 2+ bilateral lower extremity pitting edema, capillary refill less than 2 seconds Lungs: CTA bilateral, no rhonchi, no rales , no accessory muscle use Abdominal: Obese, nontender to palpation, no guarding, no appreciable organomegaly, normal bowel sounds Ext: no gross muscle atrophy, muscle strength 4 out of 5 in all 4 extremities grossly, no contractures, Neuro: CN II-XI grossly intact, light touch intact all 4 extremities, finger to nose within normal limits, Psych: Alert, oriented, appropriate affect Results CBC & Chem 7: 05/30/20 01:34 05/30/20 01:34 Labs: Abnormal Lab Results - Last 24 Hours (Table) 05/30/20 05/30/20 05/30/20 Range/Units 01:34 01:34 01:34 WBC 13.9 H (3.8-10.6) k/uL RBC 3.75 L (3.80-5.40) m/uL Hgb 10.0 L (11.4-16.0) gm/dL Hct 32.7 L (34.0-46.0) % MCHC 30.5 L (31.0-37.0) g/dL Neutrophils # 10.1 H (1.3-7.7) k/uL Monocytes # 1.5 H (0-1.0) k/uL Sodium 136 L (137-145) mmol/L BUN 29 H (7-17) mg/dL Creatinine 1.23 H (0.52-1.04) mg/dL Glucose 255 H (74-99) mg/dL Urine Protein 2+ H (Negative) Ur Leukocyte Esterase Trace H (Negative) Assessment and Plan Plan: Shortness of breath, likely secondary to diastolic CHF exacerbation -Cardiology consult -Cardiac monitoring -Continue with Lasix -Fluid restrictions, intake and output -Daily weights Chronic conditions: A. fib, chronic kidney disease, type II DM, hypertension, hyperlipidemia, COPD -Continue with home medications -Lispro insulin sliding scale with blood glucose monitoring -Levemir 20 units daily at bedtime with lispro insulin 8 units before meals 3 times a day -Check A1c DVT prophylaxis -Joe Discussed with: Patient Anticipated discharge date: 1-[address]: Home A total of 40 minutes was spent on the care of this complex patient more than 50% of the time was spent in counseling and care coordination.
[2020-05-30 05:30] LABS: HCT 31.3 % (34.0-46.0); HGB 9.7 gm/dL (11.4-16.0); Hypochromasia Slight; MCH 27.1 pg (25.0-35.0); MCHC 30.8 g/dL (31.0-37.0); MCV 87.9 fL (80.0-100.0); Mean Platelet Volume 7.7; Platelet Count 254 k/uL (150-450); RBC 3.57 m/uL (3.80-5.40); RDW 13.5 % (11.5-15.5); WBC 13.1 k/uL (3.8-10.6)
[2020-05-30 05:40] LABS: Albumin 3.6 g/dL (3.5-5.0); Calcium 8.8 mg/dL (8.4-10.2); Potassium 4.3 mmol/L (3.5-5.1); Total Bilirubin 0.6 mg/dL (0.2-1.3); Total Protein 6.2 g/dL (6.3-8.2)
[2020-05-30 06:28] LABS: Glucose,Whole Blood 302 mg/dL (75-99)
[2020-05-30] MEDS: INSULIN ASPART (NovoLOG) 100 UNIT/ML VIAL SQ SCH ×7 (06:36→19:56)
[2020-05-30] MEDS: LEVOTHYROXINE 125 MCG TAB PO SCH (08:10)
[2020-05-30] MEDS: INSULIN DETEMIR (LEVEMIR) 100 UNIT/ML SYR SQ SCH (08:11)
[2020-05-30] MEDS: MAGNESIUM OXIDE 400 MG TAB PO SCH ×2 (08:34→19:56)
[2020-05-30] MEDS: hydrALAZINE HCL 50 MG TAB PO SCH ×2 (08:34→19:56)
[2020-05-30] MEDS: METOPROLOL SUCCINATE (ER) 25 MG TAB.ER.24H PO SCH (08:34)
[2020-05-30] MEDS: CHOLECALCIFEROL 1,000 UNIT TAB PO SCH (08:34)
[2020-05-30] MEDS: APIXABAN 5 MG TAB PO SCH ×2 (08:34→19:55)
[2020-05-30] MEDS: CALCIUM ACETATE 667 MG TAB PO SCH ×3 (08:34→20:40)
[2020-05-30 09:55] VITALS: BMI 35.0
--- NOTE | 2020-05-30 12:05 | P.CRDCN ---
<Bria Muhammad A - Last Filed: 05/30/20 11:54> History of Present Illness Consult date: 05/30/20 Consult reason: chest pain (CHF, hypoxia) History of present illness: History of present illness: This is a 79-year-old female patient of Dr. 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 Echocardiogram in December 2018 revealed EF of 60-65%, severe concentric left hypertrophy, mild aortic regurgitation, mild aortic stenosis, mild mitral regurgitation, mild tricuspid regurgitation. Patient states that she developed sudden onset of shortness of breath and tightness in her chest on the left upper side and also complains of increased lower extremity edema. She also complains of vomiting that has subsequently resolved. She complains of dizziness which is almost completely resolved. She denies having any cough. She states she has been taking her medications as directed. She states her right leg was very tender to touch due to the edema. She states that she has shortness of breath with activity which has been chronic and is not sure that Dr. Hernandez is aware. She has been taking her eliquis as directed but relates that she does not like the bruising on her abdomen from insulin injections. Patient was given Lasix 40 mg IV every 12 hours. Patient states that she has diuresed well and shortness of breath and lower extremity edema improved. Weight is documented as 5 kg down. Patient presented to [facility] emergency center with temperature 100, heart rate 105, blood pressure 189/79 and pulse ox 90% on room air. EKG is a sinus rhythm with intraventricular block. Chest x-ray reveals increased interstitial markings. No pulmonary consolidation or heart failure. WBC 13.9, hemoglobin 10, platelet count 275. Sodium 136, potassium 4.2, CO2 27, chloride 102, BUN 29 creatinine 1.23, blood sugar 255. Lactic acid 1.5. ProBNP 773. Liver function tests normal. Troponin 0.012. Urinalysis negative for infection. Review Of Systems: At the time of my evaluation: Constitutional: No fever, no chills. No weakness, fatigue or lethargy. EENT: No headache. No dizziness. Lungs: No shortness of breath, denies cough, no sputum production. No wheezing. Reports dyspnea with activity. Cardiovascular: No chest pain, chronic lower extremity edema. No palpitations. No paroxysmal nocturnal dyspnea. No orthopnea. Reports mild dizziness. No syncopal episodes. Abdominal: No abdominal pain. No nausea, vomiting. Musculoskeletal: No myalgias. no frequent falls. Reports chronic back pain. Integumentary: Reports unusual bruising. Neurologic: No aphasia. No facial droop. No change in mentation. Physical examination: Gen: This is a morbidly obese female. Patient is resting on the edge of the bed and appears in no acute distress. VS: Afebrile, heart rate 79, blood pressure 144/73, pulse ox 96% on room air. HEENT: Head is atraumatic, normocephalic. Pupils equal, round. Sclerae is anicteric. NECK: Supple. No JVD. No lymphadenopathy. No thyromegaly. LUNGS: Clear to auscultation. No wheezes or rhonchi. No intercostal retractions. HEART: Regular rate and rhythm. 3/6 systolic murmur. ABDOMEN: Soft. Bowel sounds are present. No masses. No tenderness. EXTREMITIES: 1+ bilateral pedal edema. No calf tenderness. Dorsalis pedis +2 bilaterally. NEUROLOGICAL: Patient is awake, alert and oriented x3. Cranial nerves 2 through 12 are grossly intact. Assessment: Shortness of breath secondary to acute diastolic heart failure Paroxysmal atrial fibrillation Hypertension Hyperlipidemia Hypothyroidism Diabetes mellitus type 2 insulin requiring Plan: Transition IV Lasix to oral 40 mg daily Agree with continuing eliquis 5 mg daily, Toprol-XL 25 mg daily Continue hydralazine 100 mg twice daily, amlodipine 10 mg daily, lisinopril 40 mg daily Continue Lipitor Further recommendations to follow based upon clinical course Patient will follow up with Dr. Hernandez following discharge from the hospital Thank you kindly for this consultation. Nurse practitioner note has been reviewed, I agree with documented findings and plan of care. Patient was seen and examined. Past Medical History Past Medical History: Atrial Fibrillation, Coronary Artery Disease (CAD), Cancer, Heart Failure, COPD, CVA/TIA, Diabetes Mellitus, Hyperlipidemia, Hypertension, Musculoskeletal Disorder, Pneumonia, Renal Disease, Sleep Apnea/CPAP/BIPAP, Thyroid Disorder Additional Past Medical History / Comment(s): Ecoli UTI w/ Ecoli bacteremia/severe sepsis, CAP,. 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 Skin cancer. History of Any Multi-Drug Resistant Organisms: None Reported Past Surgical History: Adenoidectomy, Back Surgery, Bariatric Surgery, Cholecystectomy, Heart Catheterization, Hysterectomy, Tonsillectomy Additional Past Surgical History / Comment(s): Cardiac caths , lap band placed/since removed, low back surgery, L carpal tunnel release x2, skin cancer removal, colonoscopies, bilateral cataract removals/lens implants. Past Anesthesia/Blood Transfusion Reactions: Previous Problems w/ Anesthesia Additional Past Anesthesia/Blood Transfusion Reaction / Comment(s): "Had too much anesthesia in 2007 for lab band removal, had to be bagged." Past Psychological History: No Psychological Hx Reported Smoking Status: Never smoker Past Alcohol Use History: None Reported Past Drug Use History: None Reported - Past Family History Sister(s) Family Medical History: Myocardial Infarction ([place]) Brother(s) Family Medical History: Cancer Additional Family Medical History / Comment(s): colon Mother Family Medical History: Dementia Additional Family Medical History / Comment(s): Mother of dementia at the age of 89yrs. Father Family Medical History: Cancer Additional Family Medical History / Comment(s): Pt states her father was treated for a sinus infection but really had leukemia and of this at the age of 72 yrs. Medications and Allergies Home Medications Medication Instructions Recorded Confirmed Type Atorvastatin [Lipitor] 80 mg PO HS 06/30/18 05/30/20 History Apixaban [Eliquis] 5 mg PO BID #60 tab 07/04/18 05/30/20 Rx Metoprolol Succinate (ER) [Toprol 25 mg PO DAILY #30 tab.er.24h 07/04/18 05/30/20 Rx XL] hydrALAZINE HCL [Apresoline] 100 mg PO TID 01/06/19 05/30/20 History lisinopriL 40 mg PO DAILY 01/06/19 05/30/20 History Levothyroxine Sodium [Synthroid] 125 mcg PO DAILY #30 tab 01/08/19 05/30/20 Rx Furosemide [Lasix] 40 mg PO DAILY 06/18/19 05/30/20 History amLODIPine BESYLATE 10 mg PO DAILY 06/18/19 05/30/20 History Insulin Glargine [Lantus] 30 unit SQ HS 03/26/20 05/30/20 History Magnesium 500 mg PO BID 03/26/20 05/30/20 History Pioglitazone [Actos] 15 mg PO DAILY 03/26/20 05/30/20 History Insulin NPL/Insulin Lispro 20 unit SQ BID-W/MEALS 05/30/20 05/30/20 History [humaLOG MIX 75-25 VIAL] Multivitamin [Multivitamins Adult 1 tab PO DAILY 05/30/20 05/30/20 History Gummies] Vitamin B-6 (Unknown Strength) 1 tab PO DAILY 05/30/20 05/30/20 History Vitamin C 100mg 1 tab PO DAILY 05/30/20 05/30/20 History Allergies Allergy/AdvReac Type Severity Reaction Status Date / Time azithromycin Allergy Rash/Hives Verified 05/30/20 11:26 [From Zithromax Z-Jeanmarie] methylprednisolone Allergy Unknown Verified 05/30/20 11:26 [From Medrol] Childhood trimethoprim [From Bactrim] Allergy Rash/Hives Verified 05/30/20 11:26 hydrochlorothiazide AdvReac lost Verified 05/30/20 11:26 balance and fell sulfamethoxazole AdvReac Rash/Hives Verified 05/30/20 11:26 [From Bactrim] Physical Exam Vitals: Vital Signs Temp Pulse Pulse Resp BP BP BP 05/30/20 09:00 20 05/30/20 08:09 98.9 F 79 20 144/73 05/30/20 04:18 98.1 F 82 18 129/64 05/30/20 03:53 88 22 157/81 05/30/20 02:47 98.5 F 91 22 146/68 05/30/20 01:57 22 05/30/20 01:04 100 F H 105 H 22 189/79 Pulse Ox 05/30/20 09:00 05/30/20 08:09 96 05/30/20 04:18 93 L 05/30/20 03:53 95 05/30/20 02:47 94 L 05/30/20 01:57 05/30/20 01:04 97 Intake and Output 05/29/20 05/30/20 05/30/20 22:59 06:59 14:59 Intake Total 200 Output Total 401 300 Balance -401 -100 Intake: Oral 200 Output: Urine 400 300 Stool 1 Other: Voiding Method Toilet Weight 97.522 kg 92.6 kg Results 05/30/20 04:49 05/30/20 04:49 Cardiac Enzymes 05/30/20 05/30/20 05/30/20 Range/Units 01:34 01:34 04:49 AST 35 31 (14-36) U/L Troponin I <0.012 (0.000-0.034) ng/mL Coagulation 05/30/20 Range/Units 01:34 PT 10.3 (9.0-12.0) sec APTT 25.7 (22.0-30.0) sec CBC 05/30/20 05/30/20 Range/Units 01:34 04:49 WBC 13.9 H 13.1 H (3.8-10.6) k/uL RBC 3.75 L 3.57 L (3.80-5.40) m/uL Hgb 10.0 L 9.7 L (11.4-16.0) gm/dL Hct 32.7 L 31.3 L (34.0-46.0) % Plt Count 275 254 (150-450) k/uL Comprehensive Metabolic Panel 05/30/20 05/30/20 Range/Units 01:34 04:49 Sodium 136 L 136 L (137-145) mmol/L Potassium 4.2 4.3 (3.5-5.1) mmol/L Chloride 102 101 (98-107) mmol/L Carbon Dioxide 27 29 (22-30) mmol/L BUN 29 H 30 H (7-17) mg/dL Creatinine 1.23 H 1.23 H (0.52-1.04) mg/dL Glucose 255 H 290 H (74-99) mg/dL Calcium 9.1 8.8 (8.4-10.2) mg/dL AST 35 31 (14-36) U/L ALT 23 22 (4-34) U/L Alkaline Phosphatase 119 102 (38-126) U/L Total Protein 6.5 6.2 L (6.3-8.2) g/dL Albumin 3.8 3.6 (3.5-5.0) g/dL Current Medications Generic Name Dose Route Start Last Admin Trade Name Freq PRN Reason Stop Dose Admin Amlodipine Besylate 10 mg 05/30/20 09:00 Amlodipine 10 Mg Tab PO DAILY [facility] Apixaban 5 mg 05/30/20 09:00 05/30/20 08:34 Apixaban 5 Mg Tab PO 5 mg BID [facility] Administration Atorvastatin Calcium 80 mg 05/30/20 21:00 Atorvastatin 80 Mg Tab PO HS [facility] Calcium Acetate 667 mg 05/30/20 09:00 05/30/20 08:34 Calcium Acetate 667 Mg Tab PO 667 mg TID [facility] Administration Cholecalciferol 1,000 unit 05/30/20 09:00 05/30/20 08:34 Cholecalciferol 1,000 Unit Tab PO 1,000 unit DAILY [facility] Administration Furosemide 40 mg 05/30/20 03:45 05/30/20 03:50 Furosemide 10 Mg/Ml 4 Ml Vial IV Not Given Q12H [facility] Hydralazine HCl 100 mg 05/30/20 09:00 05/30/20 08:34 Hydralazine Hcl 50 Mg Tab PO 100 mg BID [facility] Administration Insulin Aspart 8 unit 05/30/20 07:30 05/30/20 08:27 Insulin Aspart (Novolog) 100 Unit/Ml Vial SQ 8 unit AC-TID [facility] Administration Insulin Aspart 0 unit 05/30/20 07:30 05/30/20 06:36 Insulin Aspart (Novolog) 100 Unit/Ml Vial SQ 5 unit ACHS [facility] Administration Protocol Insulin Detemir 20 unit 05/30/20 21:00 Insulin Detemir (Levemir) 100 Unit/Ml Syr SQ [facility] Insulin Detemir 20 unit 05/30/20 08:00 05/30/20 08:11 Insulin Detemir (Levemir) 100 Unit/Ml Syr SQ 20 unit DAILY@0700 [facility] Administration Levothyroxine Sodium 125 mcg 05/30/20 07:30 05/30/20 08:10 Levothyroxine 125 Mcg Tab PO 125 mcg 0630 [facility] Administration Lisinopril 40 mg 05/30/20 09:00 Lisinopril 20 Mg Tab PO DAILY [facility] Magnesium Oxide 400 mg 05/30/20 09:00 10/11/20 08:34 Magnesium Oxide 400 Mg Tab PO 400 mg BID [facility] Administration Metoprolol Succinate 25 mg 05/30/20 09:00 05/30/20 08:34 Metoprolol Succinate (Er) 25 Mg Tab.Er.24h PO 25 mg DAILY [facility] Administration Intake and Output 05/29/20 05/30/20 05/30/20 22:59 06:59 14:59 Intake Total 200 Output Total 401 300 Balance -401 -100 Intake: Oral 200 Output: Urine 400 300 Stool 1 Other: Voiding Method Toilet Weight 97.522 kg 92.6 kg Patient Weight 05/31/20 06:59 Weight 92.6 kg 05/30/20 04:49 05/30/20 04:49 <Lucas Mancilla - Last Filed: 05/30/20 15:35> History of Present Illness History of present illness: Patient still does have some lower extremity edema and some dyspnea on exertion. Discussed possibility of discharge however it does appear that she is still mildly volume overloaded and would benefit from additional day in the hospital with IV diuretics. She does have a significant harsh 3/6 systolic ejection murmur most consistent with aortic stenosis. We will check 2-D echo to rule out significant progression of aortic stenosis. Lucas Mancilla D.O. Physical Exam Vitals: Vital Signs Temp Pulse Pulse Resp BP BP BP 05/30/20 15:00 98.4 F 69 20 161/81 05/30/20 09:00 20 05/30/20 08:09 98.9 F 79 20 144/73 05/30/20 04:18 98.1 F 82 18 129/64 05/30/20 03:53 88 22 157/81 05/30/20 02:47 98.5 F 91 22 146/68 05/30/20 01:57 22 05/30/20 01:04 100 F H 105 H 22 189/79 Pulse Ox 05/30/20 15:00 96 05/30/20 09:00 05/30/20 08:09 96 05/30/20 04:18 93 L 05/30/20 03:53 95 05/30/20 02:47 94 L 05/30/20 01:57 05/30/20 01:04 97 Intake and Output 05/30/20 05/30/20 05/30/20 06:59 14:59 22:59 Intake Total 600 Output Total 401 600 Balance -401 0 Intake: Oral 600 Output: Urine 400 600 Stool 1 Other: Voiding Method Toilet Weight 97.522 kg 92.6 kg Results 05/30/20 04:49 05/30/20 04:49 Cardiac Enzymes 05/30/20 05/30/20 05/30/20 Range/Units 01:34 01:34 04:49 AST 35 31 (14-36) U/L Troponin I <0.012 (0.000-0.034) ng/mL Coagulation 05/30/20 Range/Units 01:34 PT 10.3 (9.0-12.0) sec APTT 25.7 (22.0-30.0) sec CBC 05/30/20 05/30/20 Range/Units 01:34 04:49 WBC 13.9 H 13.1 H (3.8-10.6) k/uL RBC 3.75 L 3.57 L (3.80-5.40) m/uL Hgb 10.0 L 9.7 L (11.4-16.0) gm/dL Hct 32.7 L 31.3 L (34.0-46.0) % Plt Count 275 254 (150-450) k/uL Comprehensive Metabolic Panel 05/30/20 05/30/20 Range/Units 01:34 04:49 Sodium 136 L 136 L (137-145) mmol/L Potassium 4.2 4.3 (3.5-5.1) mmol/L Chloride 102 101 (98-107) mmol/L Carbon Dioxide 27 29 (22-30) mmol/L BUN 29 H 30 H (7-17) mg/dL Creatinine 1.23 H 1.23 H (0.52-1.04) mg/dL Glucose 255 H 290 H (74-99) mg/dL Calcium 9.1 8.8 (8.4-10.2) mg/dL AST 35 31 (14-36) U/L ALT 23 22 (4-34) U/L Alkaline Phosphatase 119 102 (38-126) U/L Total Protein 6.5 6.2 L (6.3-8.2) g/dL Albumin 3.8 3.6 (3.5-5.0) g/dL Current Medications Generic Name Dose Route Start Last Admin Trade Name Freq PRN Reason Stop Dose Admin Amlodipine Besylate 10 mg 05/30/20 09:00 05/30/20 13:11 Amlodipine 10 Mg Tab PO 10 mg DAILY [facility] Administration Apixaban 5 mg 05/30/20 09:00 05/30/20 08:34 Apixaban 5 Mg Tab PO 5 mg BID [facility] Administration Atorvastatin Calcium 80 mg 05/30/20 21:00 Atorvastatin 80 Mg Tab PO HS [facility] Calcium Acetate 667 mg 05/30/20 09:00 05/30/20 08:34 Calcium Acetate 667 Mg Tab PO 667 mg TID [facility] Administration Cholecalciferol 1,000 unit 05/30/20 09:00 05/30/20 08:34 Cholecalciferol 1,000 Unit Tab PO 1,000 unit DAILY [facility] Administration Furosemide 40 mg 05/31/20 09:00 Furosemide 40 Mg Tab PO DAILY [facility] Hydralazine HCl 100 mg 05/30/20 09:00 05/30/20 08:34 Hydralazine Hcl 50 Mg Tab PO 100 mg BID [facility] Administration Insulin Aspart 8 unit 05/30/20 07:30 05/30/20 13:10 Insulin Aspart (Novolog) 100 Unit/Ml Vial SQ 8 unit AC-TID [facility] Administration Insulin Aspart 0 unit 05/30/20 07:30 05/30/20 13:10 Insulin Aspart (Novolog) 100 Unit/Ml Vial SQ 2 unit ACHS [facility] Administration Protocol Insulin Detemir 20 unit 05/30/20 21:00 Insulin Detemir (Levemir) 100 Unit/Ml Syr SQ HS [facility] Insulin Detemir 20 unit 05/30/20 08:00 05/30/20 08:11 Insulin Detemir (Levemir) 100 Unit/Ml Syr SQ 20 unit DAILY@0700 [facility] Administration Levothyroxine Sodium 125 mcg 05/30/20 07:30 05/30/20 08:10 Levothyroxine 125 Mcg Tab PO 125 mcg 0630 [facility] Administration Lisinopril 40 mg 05/30/20 09:00 05/30/20 13:13 Lisinopril 20 Mg Tab PO 40 mg DAILY [facility] Administration Magnesium Oxide 400 mg 05/30/20 09:00 05/30/20 08:34 Magnesium Oxide 400 Mg Tab PO 400 mg BID [facility] Administration Metoprolol Succinate 25 mg 05/30/20 09:00 05/30/20 08:34 Metoprolol Succinate (Er) 25 Mg Tab.Er.24h PO 25 mg DAILY [facility] Administration Intake and Output 05/30/20 05/30/20 05/30/20 06:59 14:59 22:59 Intake Total 600 Output Total 401 600 Balance -401 0 Intake: Oral 600 Output: Urine 400 600 Stool 1 Other: Voiding Method Toilet Weight 97.522 kg 92.6 kg Patient Weight 05/31/20 06:59 Weight 92.6 kg 05/30/20 04:49 05/30/20 04:49
[2020-05-30 13:06] LABS: Glucose,Whole Blood 183 mg/dL (75-99)
[2020-05-30] MEDS: amLODIPine 10 MG TAB PO SCH (13:11)
[2020-05-30] MEDS: lisinopriL 20 MG TAB PO SCH (13:13)
[2020-05-30 13:16] LABS: Hemoglobin A1C 9.7 % (4.0-6.0)
[2020-05-30 17:43] LABS: Glucose,Whole Blood 193 mg/dL (75-99)
[2020-05-30 19:44] LABS: Glucose,Whole Blood 273 mg/dL (75-99)
[2020-05-30] MEDS ORDERED: ARTIFICIAL TEARS-HYPROMELLOSE DROPS 15 ML BTL BOTH EYES PRN (20:41)
[2020-05-30] MEDS ORDERED: ATORVASTATIN 80 MG TAB PO SCH (21:00)
[2020-05-30] MEDS ORDERED: INSULIN DETEMIR (LEVEMIR) 100 UNIT/ML SYR SQ SCH (21:00)
[2020-05-31 05:24] LABS: Basophils % (A) 0 %; Eosinophils # (A) 0.5 k/uL (0-0.7); Eosinophils % (A) 5 %; HCT 30.1 % (34.0-46.0); HGB 9.6 gm/dL (11.4-16.0); Hypochromasia Slight; Lymphocytes # (A) 1.6 k/uL (1.0-4.8); Lymphocytes % (A) 17 %; MCH 28.7 pg (25.0-35.0); MCV 89.8 fL (80.0-100.0); Mean Platelet Volume 7.9; Monocytes # (A) 1.1 k/uL (0-1.0); Monocytes % (A) 12 %; Neutrophils # (A) 5.7 k/uL (1.3-7.7); Neutrophils % (A) 62 %; Platelet Count 232 k/uL (150-450); RBC 3.35 m/uL (3.80-5.40); RDW 13.5 % (11.5-15.5); WBC 9.2 k/uL (3.8-10.6)
[2020-05-31 05:35] LABS: Calcium 8.4 mg/dL (8.4-10.2); Magnesium 2.1 mg/dL (1.6-2.3); Potassium 4.1 mmol/L (3.5-5.1)
[2020-05-31 06:32] LABS: Glucose,Whole Blood 220 mg/dL (75-99)
[2020-05-31] MEDS: INSULIN DETEMIR (LEVEMIR) 100 UNIT/ML SYR SQ SCH (06:39)
[2020-05-31] MEDS: INSULIN ASPART (NovoLOG) 100 UNIT/ML VIAL SQ SCH ×4 (06:39→12:26)
[2020-05-31] MEDS: LEVOTHYROXINE 125 MCG TAB PO SCH (06:40)
[2020-05-31 08:14] VITALS: BP 132/69; PULSE 64; RESP 18; TEMP 97.9
[2020-05-31] MEDS: MAGNESIUM OXIDE 400 MG TAB PO SCH (08:19)
[2020-05-31] MEDS: METOPROLOL SUCCINATE (ER) 25 MG TAB.ER.24H PO SCH (08:19)
[2020-05-31] MEDS: APIXABAN 5 MG TAB PO SCH (08:19)
[2020-05-31] MEDS: hydrALAZINE HCL 50 MG TAB PO SCH (08:19)
[2020-05-31] MEDS: amLODIPine 10 MG TAB PO SCH (08:19)
[2020-05-31] MEDS: lisinopriL 20 MG TAB PO SCH (08:19)
[2020-05-31] MEDS: CALCIUM ACETATE 667 MG TAB PO SCH (08:20)
[2020-05-31] MEDS: CHOLECALCIFEROL 1,000 UNIT TAB PO SCH (08:20)
[2020-05-31] MEDS ORDERED: FUROSEMIDE 40 MG TAB PO SCH (09:00)
--- NOTE | 2020-05-31 09:16 | PN ---
PROGRESS NOTE Mrs. Pool is a 79-year-old female who presented with symptoms of acute dyspnea and some peripheral edema. She is feeling better today. She had a cough, but non productive. She denied any wheezing. She has been started on IV diuretic yesterday and continue at this time on amlodipine 10 mg daily, Eliquis 5 mg twice a day, Lipitor 80 mg daily. She is now on Lasix 40 mg orally daily, hydralazine 100 mg twice a day, insulin, levothyroxine, lisinopril 40 mg daily, metoprolol succinate 25 mg daily. PHYSICAL EXAMINATION: Blood pressure 116/60 with a heart rate in the 70s. LUNGS: Clear. HEART: Regular rate and rhythm, S1, S2. No S3 with systolic ejection murmur heard at the base. No diastolic murmur, no rub. ABDOMEN: Soft, obese, nontender. EXTREMITIES: +1 edema. LAB DATA: Revealed BUN and creatinine 32 and 1.5, potassium 4.1, hemoglobin 9.6. Troponin less than 0.012. IMPRESSION: 1. Symptoms of mild dyspnea with preserved systolic function. Her NT proBNP was normal on presentation. She had no clear evidence to suggest congestive heart failure. 2. Chronic kidney disease. 3. History of hypertension. 4. Diabetes mellitus. RECOMMENDATION: From the cardiac standpoint, I see no evidence of acute ischemic event or acute heart failure. Will await the results for echocardiogram. There was no evidence of significant abnormality then I would expect she should be able to be discharged home soon and followed as an outpatient. MMODL / HOODN: [id number] /
--- NOTE | 2020-05-31 10:44 | ECHOF ---
Referral Reason:CHF MEASUREMENTS -------- HEIGHT: 162.6 cm WEIGHT: 92.1 kg BP: 116/67 RVIDd: 2.8 cm (< 3.3) IVSd: 1.9 cm (0.6 - 1.1) LVIDd: 3.9 cm (3.9 - 5.3) LVPWd: 1.9 cm (0.6 - 1.1) IVSs: 2.4 cm LVIDs: 2.3 cm LVPWs: 2.3 cm LAESV Index (A-L): 42.49 ml/m Ao Diam: 2.4 cm (2.0 - 3.7) MV EXCURSION: 13.171 mm (> 18.000) MV EF SLOPE: 44 mm/s (70 - 150) EPSS: 0.6 cm MV E Joel: 1.32 m/s MV DecT: 166 ms MV A Joel: 1.46 m/s MV E/A Ratio: 0.91 AV maxP.10 mmHg AV meanP.90 mmHg RAP: 5.00 mmHg RVSP: 40.43 mmHg FINDINGS -------- Sinus rhythm. This was a technically difficult study with suboptimal views. The left ventricular size is normal. There is severe concentric left ventricular hypertrophy. Ove rall left ventricular systolic function is normal with, an EF between 55 - 60 %. The right ventricle is normal in size. LA is severely dilated >40 ml/m2 The right atrium was not well visualized. 5.0mg of Lumason was utilized for enhancement of images Interatrial and interventricular septum intact. There is mild aortic regurgitation. There is moderate aortic stenosis present. Peak/mean gradient across the Aortic Valve is 40.10mmHg / 27.90mmHg. Moderate mitral annular calcification present. [id number] mitral regurgitation is present. [id number] tricuspid regurgitation present. There is mild pulmonary hypertension. The right ventricular systolic pressure, as measured by Doppler, is 40.43mmHg. The pulmonic valve was not well visualized. There is no pulmonic regurgitation present. The aortic root size is normal. IVC Not well visulized. There is no pericardial effusion. CONCLUSIONS -------- 1. There is severe concentric left ventricular hypertrophy. 2. Overall left ventricular systolic function is normal with, an EF between 55 - 60 %. 3. LA is severely dilated >40 ml/m2 4. There is mild aortic regurgitation. 5. There is moderate aortic stenosis present. 6. Peak/mean gradient across the Aortic Valve is 40.10mmHg / 27.90mmHg. 7. Moderate mitral annular calcification present. 8. [id number] mitral regurgitation is present. 9. [id number] tricuspid regurgitation present. 10. There is mild pulmonary hypertension. [employer]: Larissa Santos RDCS
--- NOTE | 2020-05-31 12:08 | P.DS ---
Providers Date of admission: 05/30/20 03:37 Expected date of discharge: 05/31/20 Attending physician: Ayan Patel MD Consults: 05/30/20 03:37 Consult Physician Routine Consulting Provider: Renée Hernandez Consult Reason/Comments: Chest pain, CHF, hypoxia, established patint Do you want consulting provider notified?: Yes, Notify in am Primary care physician: Miguelito [facility] Course: This is a 79-year-old female with very complex past medical history noted below that presented to the hospital with worsening shortness of breath. Patient was evaluated in the ER and admitted to the hospital for further management of her medical problems noted below. 1. Shortness of breath, resolved. Initially thought to be attributed to CHF exacerbation that was ruled out. BNP normal. Chest x-ray with no pulmonary edema. Echocardiogram showed preserved ejection fraction with no evidence of heart failure. May be attributed to deconditioning and obesity. 2. Bilateral venous insufficiency, counseling regarding fluid restriction and low sodium diet. Advised to wear compression stocking every morning. Advised discussed with Dr. Hernandez possibly taking her off of amlodipine and/or switching to a different blood pressure medication 3. Type 2 diabetes, not well controlled. A1c 9.7. Follow-up with PCP as directed 4. Chronic medical problems: Chronic atrial fibrillation on anticoagulation, type 2 diabetes, essential hypertension, hyperlipidemia, underlying COPD Patient will be discharged home in a stable condition. For further details about this hospitalization please refer to the electronic chart. Time spent on discharge > 30 minutes including counseling and coordination of Patient Condition at Discharge: Stable Plan - Discharge Summary New Discharge Prescriptions: Continue Atorvastatin [Lipitor] 80 mg PO HS Apixaban [Eliquis] 5 mg PO BID #60 tab Metoprolol Succinate (ER) [Toprol XL] 25 mg PO DAILY #30 tab.er.24h lisinopriL 40 mg PO DAILY hydrALAZINE HCL [Apresoline] 100 mg PO TID Levothyroxine Sodium [Synthroid] 125 mcg PO DAILY #30 tab amLODIPine BESYLATE 10 mg PO DAILY Furosemide [Lasix] 40 mg PO DAILY Insulin Glargine [Lantus] 30 unit SQ HS Magnesium 500 mg PO BID Pioglitazone [Actos] 15 mg PO DAILY Vitamin C 100mg 1 tab PO DAILY Insulin NPL/Insulin Lispro [humaLOG MIX 75-25 VIAL] 20 unit SQ BID-W/MEALS Vitamin B-6 (Unknown Strength) 1 tab PO DAILY Multivitamin [Multivitamins Adult Gummies] 1 tab PO DAILY Discharge Medication List Atorvastatin [Lipitor] 80 mg PO HS 06/30/18 [History] Apixaban [Eliquis] 5 mg PO BID #60 tab 07/04/18 [Rx] Metoprolol Succinate (ER) [Toprol XL] 25 mg PO DAILY #30 tab.er.24h 07/04/18 [Rx] hydrALAZINE HCL [Apresoline] 100 mg PO TID 01/06/19 [History] lisinopriL 40 mg PO DAILY 01/06/19 [History] Levothyroxine Sodium [Synthroid] 125 mcg PO DAILY #30 tab 01/08/19 [Rx] Furosemide [Lasix] 40 mg PO DAILY 06/18/19 [History] amLODIPine BESYLATE 10 mg PO DAILY 06/18/19 [History] Insulin Glargine [Lantus] 30 unit SQ HS 03/26/20 [History] Magnesium 500 mg PO BID 03/26/20 [History] Pioglitazone [Actos] 15 mg PO DAILY 03/26/20 [History] Insulin NPL/Insulin Lispro [humaLOG MIX 75-25 VIAL] 20 unit SQ BID-W/MEALS 05/30/20 [History] Multivitamin [Multivitamins Adult Gummies] 1 tab PO DAILY 05/30/20 [History] Vitamin B-6 (Unknown Strength) 1 tab PO DAILY 05/30/20 [History] Vitamin C 100mg 1 tab PO DAILY 05/30/20 [History] Follow up Appointment(s)/Referral(s): Renée Hernandez MD [STAFF PHYSICIAN] - 1 Week Miguelito Fontenot [Primary Care Provider] - 1-2 days Patient Instructions/Handouts: Low-Sodium Diet (DC), Fluid Restriction (DC), Venous Insufficiency (GEN) Discharge Disposition: HOME SELF-CARE
[2020-05-31 12:10] LABS: Glucose,Whole Blood 232 mg/dL (75-99)
== END 2020-05-31 13:45 | disposition home or self-care (01) ==
LOC: EC 01:01 → 3NCARDOBS 03:37
PROVIDERS: ADMIT Internal Medicine; ATTEND Internal Medicine
DX: R06.02 Shortness of breath (principal); E66.9 Obesity, unspecified; Z68.34 Body mass index [BMI] 34.0-34.9, adult; R06.00 Dyspnea, unspecified; I25.10 Atherosclerotic heart disease of native coronary artery without angina pectoris; I13.0 Hypertensive heart and chronic kidney disease with heart failure and stage 1 through stage 4 chronic kidney disease, or unspecified chronic kidney disease; N18.30 Chronic kidney disease, stage 3 unspecified; I50.30 Unspecified diastolic (congestive) heart failure; E11.22 Type 2 diabetes mellitus with diabetic chronic kidney disease; I87.2 Venous insufficiency (chronic) (peripheral); E11.65 Type 2 diabetes mellitus with hyperglycemia; I48.20 Chronic atrial fibrillation, unspecified; Z77.22 Contact with and (suspected) exposure to environmental tobacco smoke (acute) (chronic); E78.5 Hyperlipidemia, unspecified; J44.9 Chronic obstructive pulmonary disease, unspecified; I45.4 Nonspecific intraventricular block; Z79.01 Long term (current) use of anticoagulants; Z86.73 Personal history of transient ischemic attack (TIA), and cerebral infarction without residual deficits; Z87.01 Personal history of pneumonia (recurrent); Z86.19 Personal history of other infectious and parasitic diseases; G47.33 Obstructive sleep apnea (adult) (pediatric); E03.9 Hypothyroidism, unspecified; E55.9 Vitamin D deficiency, unspecified; G89.29 Other chronic pain; M54.5 Low back pain; Z85.828 Personal history of other malignant neoplasm of skin; Z90.49 Acquired absence of other specified parts of digestive tract; Z90.710 Acquired absence of both cervix and uterus; Z98.42 Cataract extraction status, left eye; Z98.41 Cataract extraction status, right eye; Z96.1 Presence of intraocular lens; Z82.49 Family history of ischemic heart disease and other diseases of the circulatory system; Z80.0 Family history of malignant neoplasm of digestive organs; Z81.8 Family history of other mental and behavioral disorders; Z80.6 Family history of leukemia; Z79.890 Hormone replacement therapy; Z79.4 Long term (current) use of insulin; Z79.899 Other long term (current) drug therapy; Z88.1 Allergy status to other antibiotic agents; Z88.2 Allergy status to sulfonamides; Z88.8 Allergy status to other drugs, medicaments and biological substances
CPT/HCPCS: 96376; 96374; 99285; 36415; 93005; 93306; 83880; 80053; 80048; 82550; 83605; 83735; 84484 ×2; 85025 ×2; 85027; 85610; 85730; 81001; 87040; 83036; 71046; G0378 ×2; J1940; Q9950

== ENCOUNTER 2020-06-05 07:32 | Emergency (ER) | payer MEDICARE ==
[2020-06-05 07:37] VITALS: RESP 18
--- NOTE | 2020-06-05 07:49 | ED ---
General Adult HPI - General Chief complaint: Shortness of Breath Stated complaint: SOB, med sideaffect Time Seen by Provider: 06/05/20 07:39 Source: patient Mode of arrival: wheelchair Limitations: no limitations - History of Present Illness Initial comments: Dictation was produced using [employer] dictation software. please excuse any grammatical, word or spelling errors. This patient was cared for during a federal and state declared state of [facility] secondary to Covid 19 Chief Complaint: 79-year-old female with multiple comorbidities presents with cough, runny nose, shortness of breath chest pain History of Present Illness: Patient is 79-year-old female since yesterday at approximately 7:30 PM, patient has been experiencing upper respiratory symptoms. Patient states she's been having runny nose, nonproductive cough and sore throat. Patient states that she was recently started on a new diabetic medication except that she is having a reaction to that. she was just started on semaglutide. She has been having some mild substernal chest pain. She states is worse when she coughs. Patient also has throat pain whenever she coughs. Overt sick contacts. She denies any anosmia. She has had no constitutional symptoms. She has no other complaints at this time. She reports he has a history of heart failure and takes a diuretic pill. The ROS documented in this emergency department record has been reviewed and confirmed by me. Those systems with pertinent positive or negative responses have been documented in the HPI. All other systems are other negative and/or noncontributory. PHYSICAL EXAM: General Impression: Alert and oriented x3, not in acute distress HEENT: Normocephalic atraumatic, extra-ocular movements intact, pupils equal and reactive to light bilaterally, mucous membranes moist, his congestion Cardiovascular: Heart regular rate and rhythm Chest: Able to complete full sentences, no retractions, no tachypnea, diffuse rales Abdomen: abdomen soft, non-tender, non-distended, no organomegaly Musculoskeletal: Pulses present and equal in all extremities, no peripheral edema Motor: no focal deficits noted Neurological: CN II-XII grossly intact, no focal motor or sensory deficits noted Skin: Intact with no visualized rashes Psych: Normal affect and mood ED course: 79-year-old female presents with respiratory infectious type symptoms. She has multiple comorbidities. Vital signs upon arrival are within acceptable limits. Laboratory evaluation obtained. Mild leukocytosis 11.4. Rest of CBC is grossly unremarkable. Coag panel is negative. Metabolic panels shows no acute processes. Troponins baseline. Brain natruretic peptide is negative. Chest x- ray is nonacute. At this point clinical presentation consistent with mild COPD exacerbation. Patient given DuoNeb and Decadron with improvement of symptoms. No high-risk features. Patient be discharged with close follow-up with primary care physician. Patient prescription for pro-air inhaler to be taken every 4 hours. She agrees with disposition. She understands that she needs to follow- up with her PCP on Sunday or Sunday of next week. Return precautions provided. Patient is understandable. She understands to return to the emergency Department with any worsening symptoms especially including fever. EKG interpretation: Ventricular rate 82, normal sinus rhythm,. 140, QRS 102, QTc 467. No CO prolongation, no QTC prolongation, no ST or T-wave changes noted. EKG compared to 05/30/2020 showing no changes. Overall, this EKG is unremarkable - Related Data Home Medications Medication Instructions Recorded Confirmed Atorvastatin [Lipitor] 80 mg PO HS 06/30/18 06/05/20 hydrALAZINE HCL [Apresoline] 100 mg PO TID 01/06/19 06/05/20 lisinopriL 40 mg PO DAILY 01/06/19 06/05/20 Furosemide [Lasix] 40 mg PO DAILY 06/18/19 06/05/20 amLODIPine BESYLATE 10 mg PO DAILY 06/18/19 06/05/20 Magnesium 500 mg PO BID 03/26/20 06/05/20 Pioglitazone [Actos] 15 mg PO DAILY 03/26/20 06/05/20 Insulin NPL/Insulin Lispro 20 unit SQ W/SUPPER 05/30/20 06/05/20 [humaLOG MIX 75-25 VIAL] Multivitamin [Multivitamins Adult 1 tab PO DAILY 05/30/20 06/05/20 Gummies] Vitamin B-6 (Unknown Strength) 1 tab PO DAILY 05/30/20 06/05/20 Vitamin C 100mg 1 tab PO DAILY 05/30/20 06/05/20 Cholecalciferol [Vitamin D3 (25 2,000 unit PO HS 06/05/20 06/05/20 Mcg = 1000 Iu)] Cholecalciferol [Vitamin D3 (25 3,000 unit PO QAM 06/05/20 06/05/20 Mcg = 1000 Iu)] Insulin NPL/Insulin Lispro 40 unit SQ W/BRKFST 06/05/20 06/05/20 [humaLOG MIX 75-25 VIAL] Melatonin (Unknown Strength) 1 tab PO HS PRN 06/05/20 06/05/20 Semaglutide [Ozempic] 0.25 mg SQ TH 06/05/20 06/05/20 Previous Rx's Medication Instructions Recorded Apixaban [Eliquis] 5 mg PO BID #60 tab 07/04/18 Metoprolol Succinate (ER) [Toprol 25 mg PO DAILY #30 tab.er.24h 07/04/18 XL] Levothyroxine Sodium [Synthroid] 125 mcg PO DAILY #30 tab 01/08/19 Albuterol Sulfate [Proair Hfa] 1 - 2 puff INHALATION Q6HR PRN #1 06/05/20 inhaler Allergies Allergy/AdvReac Type Severity Reaction Status Date / Time azithromycin Allergy Rash/Hives Verified 06/05/20 08:39 [From Zithromax Z-Jeanmarie] methylprednisolone Allergy Unknown Verified 06/05/20 08:39 [From Medrol] Childhood trimethoprim [From Bactrim] Allergy Rash/Hives Verified 06/05/20 08:39 hydrochlorothiazide AdvReac lost Verified 06/05/20 08:39 balance and fell sulfamethoxazole AdvReac Rash/Hives Verified 06/05/20 08:39 [From Bactrim] Review of Systems ROS Statement: Those systems with pertinent positive or pertinent negative responses have been documented in the HPI. ROS Other: All systems not noted in ROS Statement are negative. Past Medical History Past Medical History: Atrial Fibrillation, Coronary Artery Disease (CAD), Cancer, Heart Failure, COPD, CVA/TIA, Diabetes Mellitus, Hyperlipidemia, Hypertension, Musculoskeletal Disorder, Pneumonia, Renal Disease, Sleep Apnea/CPAP/BIPAP, Thyroid Disorder Additional Past Medical History / Comment(s): Ecoli UTI w/ Ecoli bacteremia/severe sepsis, CAP,. 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 Skin cancer. History of Any Multi-Drug Resistant Organisms: None Reported Past Surgical History: Adenoidectomy, Back Surgery, Bariatric Surgery, Cholecystectomy, Heart Catheterization, Hysterectomy, Tonsillectomy Additional Past Surgical History / Comment(s): Cardiac caths , lap band placed/since removed, low back surgery, L carpal tunnel release x2, skin cancer removal, colonoscopies, bilateral cataract removals/lens implants. Past Anesthesia/Blood Transfusion Reactions: Previous Problems w/ Anesthesia Additional Past Anesthesia/Blood Transfusion Reaction / Comment(s): "Had too much anesthesia in 2007 for lab band removal, had to be bagged." Past Psychological History: No Psychological Hx Reported Smoking Status: Never smoker Past Alcohol Use History: None Reported Past Drug Use History: None Reported - Past Family History Sister(s) Family Medical History: Myocardial Infarction ([place]) Brother(s) Family Medical History: Cancer Additional Family Medical History / Comment(s): colon Mother Family Medical History: Dementia Additional Family Medical History / Comment(s): Mother of dementia at the age of 89yrs. Father Family Medical History: Cancer Additional Family Medical History / Comment(s): Pt states her father was treated for a sinus infection but really had leukemia and of this at the age of 72 yrs. General Exam Limitations: no limitations Course Vital Signs 06/05/20 06/05/20 06/05/20 07:35 07:51 09:16 Temperature 98.2 F 98.9 F Pulse Rate 95 72 Respiratory 18 Rate Blood Pressure 161/82 O2 Sat by Pulse 97 Oximetry 06/05/20 09:26 Temperature Pulse Rate 70 Respiratory Rate Blood Pressure O2 Sat by Pulse Oximetry Medical Decision Making - Lab Data Result diagrams: 06/05/20 07:54 06/05/20 07:54 Lab Results 06/05/20 06/05/20 06/05/20 Range/Units 07:54 07:54 07:54 WBC 11.4 H (3.8-10.6) k/uL RBC 3.87 (3.80-5.40) m/uL Hgb 10.8 L (11.4-16.0) gm/dL Hct 34.6 (34.0-46.0) % MCV 89.5 (80.0-100.0) fL MCH 27.9 (25.0-35.0) pg MCHC 31.2 (31.0-37.0) g/dL RDW 13.6 (11.5-15.5) % Plt Count 341 (150-450) k/uL Neutrophils % 68 % Lymphocytes % 14 % Monocytes % 10 % Eosinophils % 4 % Basophils % 0 % Neutrophils # 7.8 H (1.3-7.7) k/uL Lymphocytes # 1.5 (1.0-4.8) k/uL Monocytes # 1.2 H (0-1.0) k/uL Eosinophils # 0.4 (0-0.7) k/uL Basophils # 0.0 (0-0.2) k/uL Hypochromasia Moderate PT 10.3 (9.0-12.0) sec INR 1.0 (<1.2) APTT 27.8 (22.0-30.0) sec Sodium 139 (137-145) mmol/L Potassium 4.2 (3.5-5.1) mmol/L Chloride 103 (98-107) mmol/L Carbon Dioxide 29 (22-30) mmol/L Anion Gap 7 mmol/L BUN 27 H (7-17) mg/dL Creatinine 1.65 H (0.52-1.04) mg/dL Est GFR (CKD-EPI)AfAm 34 (>60 ml/min/1.73 sqM) Est GFR (CKD-EPI)NonAf 30 (>60 ml/min/1.73 sqM) Glucose 223 H (74-99) mg/dL Calcium 8.9 (8.4-10.2) mg/dL Magnesium 2.2 (1.6-2.3) mg/dL Total Bilirubin 0.7 (0.2-1.3) mg/dL AST 27 (14-36) U/L ALT 21 (4-34) U/L Alkaline Phosphatase 102 (38-126) U/L Troponin I (0.000-0.034) ng/mL NT-Pro-B Natriuret Pep pg/mL Total Protein 6.7 (6.3-8.2) g/dL Albumin 3.8 (3.5-5.0) g/dL 06/05/20 06/05/20 Range/Units 07:54 07:54 WBC (3.8-10.6) k/uL RBC (3.80-5.40) m/uL Hgb (11.4-16.0) gm/dL Hct (34.0-46.0) % MCV (80.0-100.0) fL MCH (25.0-35.0) pg MCHC (31.0-37.0) g/dL RDW (11.5-15.5) % Plt Count (150-450) k/uL Neutrophils % % Lymphocytes % % Monocytes % % Eosinophils % % Basophils % % Neutrophils # (1.3-7.7) k/uL Lymphocytes # (1.0-4.8) k/uL Monocytes # (0-1.0) k/uL Eosinophils # (0-0.7) k/uL Basophils # (0-0.2) k/uL Hypochromasia PT (9.0-12.0) sec INR (<1.2) APTT (22.0-30.0) sec Sodium (137-145) mmol/L Potassium (3.5-5.1) mmol/L Chloride (98-107) mmol/L Carbon Dioxide (22-30) mmol/L Anion Gap mmol/L BUN (7-17) mg/dL Creatinine (0.52-1.04) mg/dL Est GFR (CKD-EPI)AfAm (>60 ml/min/1.73 sqM) Est GFR (CKD-EPI)NonAf (>60 ml/min/1.73 sqM) Glucose (74-99) mg/dL Calcium (8.4-10.2) mg/dL Magnesium (1.6-2.3) mg/dL Total Bilirubin (0.2-1.3) mg/dL AST (14-36) U/L ALT (4-34) U/L Alkaline Phosphatase (38-126) U/L Troponin I 0.016 (0.000-0.034) ng/mL NT-Pro-B Natriuret Pep 526 pg/mL Total Protein (6.3-8.2) g/dL Albumin (3.5-5.0) g/dL Disposition Clinical Impression: URI (upper respiratory infection) Disposition: HOME SELF-CARE Condition: Good Instructions (If sedation given, give patient instructions): Upper Respiratory Infection (ED) Additional Instructions: 1. you have clinical presentation consistent with upper respiratory infection 2. Your provided a prescription for a been on inhaler to be taken every 4-6 hours. Please continuous pickling line pickler your inhaler at preferred pharmacy. 3. Please seek medical attention with development of fever, worsening shortness of breath or productive cough 4. Follow-up with her primary care physician early next week, ideally Sunday or Sunday 5. Pending coronavirus testing results will be available in 12-24 hours. You should receive a call from our emergency Department for the results when results are available. Prescriptions: Albuterol Sulfate [Proair Hfa] 1 - 2 puff INHALATION Q6HR PRN #1 inhaler PRN Reason: Dyspnea Is patient prescribed a controlled substance at d/c from ED?: No Referrals: Miguelito Fontenot [Primary Care Provider] - 1-2 days Time of Disposition: 10:00
[2020-06-05 08:17] LABS: Basophils % (A) 0 %; Eosinophils # (A) 0.4 k/uL (0-0.7); Eosinophils % (A) 4 %; HCT 34.6 % (34.0-46.0); HGB 10.8 gm/dL (11.4-16.0); Hypochromasia Moderate; Lymphocytes # (A) 1.5 k/uL (1.0-4.8); Lymphocytes % (A) 14 %; MCH 27.9 pg (25.0-35.0); MCHC 31.2 g/dL (31.0-37.0); MCV 89.5 fL (80.0-100.0); Mean Platelet Volume 8.3; Monocytes # (A) 1.2 k/uL (0-1.0); Monocytes % (A) 10 %; Neutrophils # (A) 7.8 k/uL (1.3-7.7); Neutrophils % (A) 68 %; Platelet Count 341 k/uL (150-450); RBC 3.87 m/uL (3.80-5.40); RDW 13.6 % (11.5-15.5); WBC 11.4 k/uL (3.8-10.6)
[2020-06-05 08:23] LABS: Partial Thromboplastin Time 27.8 sec (22.0-30.0); Prothrombin Time 10.3 sec (9.0-12.0)
--- NOTE | 2020-06-05 08:24 | XR ---
EXAMINATION TYPE: XR chest 2V DATE OF EXAM: 06/05/2020 COMPARISON: 05/30/2020 TECHNIQUE: PA and lateral views submitted. HISTORY: Shortness of breath FINDINGS: The lungs are clear and there is no pneumothorax, pleural effusion, or focal pneumonia. No overt robert lure. Heart size stable. Biapical pleural thickening. Hypertrophic and degenerative change of the spi ne. Atherosclerotic change aorta. IMPRESSION: 1. No acute process.
[2020-06-05 08:35] LABS: Albumin 3.8 g/dL (3.5-5.0); Calcium 8.9 mg/dL (8.4-10.2); Magnesium 2.2 mg/dL (1.6-2.3); Potassium 4.2 mmol/L (3.5-5.1); Total Bilirubin 0.7 mg/dL (0.2-1.3); Total Protein 6.7 g/dL (6.3-8.2)
[2020-06-05] MEDS ORDERED: DEXAMETHASONE SOD PHOSPHATE 10 MG/ML 1 ML VIAL IV STA (09:00)
[2020-06-05] MEDS ORDERED: IPRATROPIUM-ALBUTEROL 3 ML NEB INHALATION STA (09:00)
[2020-06-05 10:18] VITALS: BP 144/74; PULSE 75; TEMP 98.8
== END 2020-06-05 10:18 | disposition home or self-care (01) ==
LOC: EC 07:32
DX: J06.9 Acute upper respiratory infection, unspecified (principal); D72.829 Elevated white blood cell count, unspecified; I13.0 Hypertensive heart and chronic kidney disease with heart failure and stage 1 through stage 4 chronic kidney disease, or unspecified chronic kidney disease; E11.22 Type 2 diabetes mellitus with diabetic chronic kidney disease; N18.30 Chronic kidney disease, stage 3 unspecified; E78.5 Hyperlipidemia, unspecified; I50.9 Heart failure, unspecified; I25.10 Atherosclerotic heart disease of native coronary artery without angina pectoris; G47.33 Obstructive sleep apnea (adult) (pediatric); K59.00 Constipation, unspecified; Z79.899 Other long term (current) drug therapy; Z79.4 Long term (current) use of insulin; Z88.1 Allergy status to other antibiotic agents; Z88.2 Allergy status to sulfonamides; Z88.8 Allergy status to other drugs, medicaments and biological substances; Z85.828 Personal history of other malignant neoplasm of skin; Z86.73 Personal history of transient ischemic attack (TIA), and cerebral infarction without residual deficits; Z99.89 Dependence on other enabling machines and devices
CPT/HCPCS: 99285 ×2; 96374 ×2; 36415; 94640; 93005; 83880; 80053; 83735; 84484; 85025; 85610; 85730; 71046; J1100

== ENCOUNTER → 2020-06-15 | Outpatient (CLI) | payer MEDICARE ==
[2020-06-15 11:05] LABS: Basophils % (A) 0 %; Eosinophils # (A) 0.4 k/uL (0-0.7); Eosinophils % (A) 5 %; HCT 35.6 % (34.0-46.0); HGB 10.7 gm/dL (11.4-16.0); Hypochromasia Marked; Lymphocytes # (A) 1.4 k/uL (1.0-4.8); Lymphocytes % (A) 17 %; MCH 26.9 pg (25.0-35.0); MCV 89.9 fL (80.0-100.0); Mean Platelet Volume 7.1; Monocytes # (A) 0.9 k/uL (0-1.0); Monocytes % (A) 10 %; Neutrophils # (A) 5.4 k/uL (1.3-7.7); Neutrophils % (A) 64 %; Platelet Count 294 k/uL (150-450); RBC 3.96 m/uL (3.80-5.40); RDW 13.1 % (11.5-15.5); WBC 8.4 k/uL (3.8-10.6)
[2020-06-15 11:42] LABS: Appearance,Urine Clear (Clear); Bacteria,Urine Rare /hpf; Bilirubin,Urine Negative (Negative); Blood,Urine Negative (Negative); Color,Urine Yellow; Glucose,Urine (UA) Negative (Negative); Hyaline Casts,Urine 6 /lpf (0-2); Ketones,Urine Negative (Negative); Leukocyte Esterase,Urine Trace (Negative); Mucus,Urine Occasional /hpf; Nitrite,Urine Negative (Negative); Protein,Urine 3+ (Negative); RBC,Urine 2 /hpf (0-5); Specific Gravity,Urine 1.022 (1.001-1.035); Squamous Epithelial Cell,Urine 1 /hpf (0-4); Urobilinogen,Urine <2.0 mg/dL (<2.0); WBC,Urine 5 /hpf (0-5)
[2020-06-15 17:45] LABS: % Iron Saturation 8.83 (12.00-45.00); African American GFR (CKD) 50.1 (60.0-200.0); Albumin 3.7 g/dL (3.80-4.90); Albumin/Globulin Ratio 1.68 (1.60-3.17); Anion Gap 8.2 mmol/L (4.00-12.00); BUN/Creat Ratio 14.17 Ratio (12.00-20.00); Calcium 8.8 mg/dL (8.7-10.3); Carbon Dioxide 26.8 mmol/L (21.6-31.8); Globulin 2.2 g/dL (1.6-3.3); Non-African American GFR(CKD) 43.3 (60.0-200.0); Phosphorus 3.4 mg/dL (2.4-5.1); Total Bilirubin 0.3 mg/dL (0.2-1.2); Total Protein 5.9 g/dL (6.2-8.2)
[2020-06-15 17:56] LABS: Ferritin 17.3 ng/mL (10.0-291.0)
[2020-06-16 00:22] LABS: Urine Creatinine 228.9 mg/dL
== END | disposition home or self-care (01) ==
LOC: LABWHC1 09:57
PROVIDERS: ATTEND Nurse Practitioner Family
DX: N18.30 Chronic kidney disease, stage 3 unspecified (principal); D63.1 Anemia in chronic kidney disease; N39.0 Urinary tract infection, site not specified; R80.9 Proteinuria, unspecified; N25.81 Secondary hyperparathyroidism of renal origin; E55.9 Vitamin D deficiency, unspecified; M10.9 Gout, unspecified
CPT/HCPCS: 36415; 80053; 81001; 82043; 82306; 82570; 82728; 83540; 83550; 83735; 83970; 84100; 84550; 85025

== ENCOUNTER 2020-07-19 16:52 | Emergency (ER) | payer MEDICARE ==
[2020-07-19] MEDS ORDERED: hydrALAZINE HCL 20 MG/ML 1 ML VIAL IVP STA (17:57)
--- NOTE | 2020-07-19 18:01 | ED ---
General Adult HPI - General Chief complaint: Recheck/Abnormal Lab/Rx Stated complaint: Hypertension, SOB Time Seen by Provider: 07/19/20 17:15 Source: patient, RN notes reviewed, old records reviewed Mode of arrival: ambulatory Limitations: no limitations - History of Present Illness Initial comments: This is a 79-year-old female presents emergency Department complaining that her blood pressure was elevated. Patient states she took her blood pressure home and it was elevated so she talked to her doctor told to come to the emergency department at 9:30 this morning. Patient is stated that she thought she can control but taking more of her medications so she did but hasn't come down since she came to the emergency department. Patient has no chest pain difficult to breath. Patient denies any palpitations. Patient states she is a very mild headache which is not unusual for her. Patient has no other symptoms she just knows it's high because she keeps taking a. - Related Data Home Medications Medication Instructions Recorded Confirmed Atorvastatin [Lipitor] 80 mg PO HS 06/30/18 07/19/20 hydrALAZINE HCL [Apresoline] 100 mg PO TID 01/06/19 07/19/20 lisinopriL 40 mg PO DAILY 01/06/19 07/19/20 Furosemide [Lasix] 40 mg PO DAILY 06/18/19 07/19/20 amLODIPine BESYLATE 10 mg PO DAILY 06/18/19 07/19/20 Insulin NPL/Insulin Lispro 20 unit SQ W/SUPPER 05/30/20 07/19/20 [humaLOG MIX 75-25 VIAL] Insulin NPL/Insulin Lispro 30 unit SQ W/BRKFST 06/05/20 07/19/20 [humaLOG MIX 75-25 VIAL] Semaglutide [Ozempic] 0.25 mg SQ TU 06/05/20 07/19/20 Albuterol Sulfate [Proair Hfa] 1 - 2 puff INHALATION RT-Q6H PRN 07/19/20 07/19/20 Ergocalciferol [Vitamin D2] 50,000 unit PO TU 07/19/20 07/19/20 Polyethylene Glycol 3350 [Miralax] 17 gm PO DAILY 07/19/20 07/19/20 Previous Rx's Medication Instructions Recorded Apixaban [Eliquis] 5 mg PO BID #60 tab 07/04/18 Metoprolol Succinate (ER) [Toprol 25 mg PO DAILY #30 tab.er.24h 07/04/18 XL] Levothyroxine Sodium [Synthroid] 125 mcg PO DAILY #30 tab 01/08/19 Allergies Allergy/AdvReac Type Severity Reaction Status Date / Time azithromycin Allergy Rash/Hives Verified 07/19/20 18:42 [From Zithromax Z-Jeanmarie] methylprednisolone Allergy Unknown Verified 07/19/20 18:42 [From Medrol] Childhood trimethoprim [From Bactrim] Allergy Rash/Hives Verified 07/19/20 18:42 hydrochlorothiazide AdvReac lost Verified 07/19/20 18:42 balance and fell sulfamethoxazole AdvReac Rash/Hives Verified 07/19/20 18:42 [From Bactrim] Review of Systems ROS Statement: Those systems with pertinent positive or pertinent negative responses have been documented in the HPI. ROS Other: All systems not noted in ROS Statement are negative. Past Medical History Past Medical History: Atrial Fibrillation, Coronary Artery Disease (CAD), Cancer, Heart Failure, COPD, CVA/TIA, Diabetes Mellitus, Hyperlipidemia, Hypertension, Musculoskeletal Disorder, Pneumonia, Renal Disease, Sleep Apnea/CPAP/BIPAP, Thyroid Disorder Additional Past Medical History / Comment(s): Ecoli UTI w/ Ecoli bacteremia/severe sepsis, CAP,. 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 Skin cancer. History of Any Multi-Drug Resistant Organisms: None Reported Past Surgical History: Adenoidectomy, Back Surgery, Bariatric Surgery, Cholecystectomy, Heart Catheterization, Hysterectomy, Tonsillectomy Additional Past Surgical History / Comment(s): Cardiac caths , lap band placed/since removed, low back surgery, L carpal tunnel release x2, skin cancer removal, colonoscopies, bilateral cataract removals/lens implants. Past Anesthesia/Blood Transfusion Reactions: Previous Problems w/ Anesthesia Additional Past Anesthesia/Blood Transfusion Reaction / Comment(s): "Had too much anesthesia in 2007 for lab band removal, had to be bagged." Past Psychological History: No Psychological Hx Reported Smoking Status: Never smoker Past Alcohol Use History: None Reported Past Drug Use History: None Reported - Past Family History Sister(s) Family Medical History: Myocardial Infarction ([place]) Brother(s) Family Medical History: Cancer Additional Family Medical History / Comment(s): colon Mother Family Medical History: Dementia Additional Family Medical History / Comment(s): Mother of dementia at the age of 89yrs. Father Family Medical History: Cancer Additional Family Medical History / Comment(s): Pt states her father was treated for a sinus infection but really had leukemia and of this at the age of 72 yrs. General Exam - General Exam Comments Initial Comments: GENERAL: Patient is well-developed and well-nourished. Patient is nontoxic and well- hydrated and is in no acute distress. ENT: Neck is soft and supple. No significant lymphadenopathy is noted. Oropharynx is clear. Moist mucous membranes. Neck has full range of motion without e liciting any pain. EYES: The sclera were anicteric and conjunctiva were pink and moist. Extraocular movements were intact and pupils were equal round and reactive to light. Eyelids were unremarkable. PULMONARY: Unlabored respirations. Good breath sounds bilaterally. No audible rales rhonchi or wheezing was noted. CARDIOVASCULAR: There is a regular rate and rhythm without any murmurs gallops or rubs. ABDOMEN: Soft and nontender with normal bowel sounds. SKIN: Skin is clear with no lesions or rashes and otherwise unremarkable. NEUROLOGIC: Patient is alert and oriented x3. Cranial nerves II through XII are grossly intact. Motor and sensory are also intact. Normal speech, volume and content. Symmetrical smile. MUSCULOSKELETAL: Normal extremities with adequate strength and full range of motion. No lower extremity swelling or edema. No calf tenderness. LYMPHATICS: No significant lymphadenopathy is noted PSYCHIATRIC: Normal psychiatric evaluation. Limitations: no limitations Course Vital Signs 07/19/20 07/19/20 07/19/20 17:13 17:48 17:53 Temperature 98.8 F Pulse Rate 95 Pulse Rate [ 111 H Window Glazier ] Respiratory 18 18 Rate Blood Pressure 191/102 190/94 O2 Sat by Pulse 99 98 Oximetry 07/19/20 07/19/20 07/19/20 18:20 18:59 19:05 Temperature Pulse Rate 89 88 Pulse Rate [ Window Glazier ] Respiratory 16 Rate Blood Pressure 169/97 160/89 145/82 O2 Sat by Pulse 98 Oximetry Medical Decision Making - Medical Decision Making Patient received 20 mg of hydralazine and blood pressure came down nicely. Disposition Clinical Impression: Hypertensive urgency Disposition: HOME SELF-CARE Condition: Good Instructions (If sedation given, give patient instructions): Hypertension (ED) Additional Instructions: Patient should take hydralazine 3 times a day. Is patient prescribed a controlled substance at d/c from ED?: No Referrals: Miguelito Fontenot [Primary Care Provider] - 1-2 days Time of Disposition: 19:14
[2020-07-19 19:35] VITALS: TEMP 97.9
[2020-07-19] MEDS ORDERED: SODIUM CHLORIDE 0.9% 500 ML 500 ML IV ONE (20:05)
[2020-07-19] MEDS ORDERED: LORazepam 1 MG TAB PO STA (20:05)
[2020-07-19 21:19] VITALS: BP 135/65; PULSE 78; RESP 18
== END 2020-07-19 21:23 | disposition home or self-care (01) ==
LOC: EC 16:52
DX: I16.0 Hypertensive urgency (principal); I48.91 Unspecified atrial fibrillation; I25.10 Atherosclerotic heart disease of native coronary artery without angina pectoris; J44.9 Chronic obstructive pulmonary disease, unspecified; E11.22 Type 2 diabetes mellitus with diabetic chronic kidney disease; I13.0 Hypertensive heart and chronic kidney disease with heart failure and stage 1 through stage 4 chronic kidney disease, or unspecified chronic kidney disease; I50.9 Heart failure, unspecified; N18.30 Chronic kidney disease, stage 3 unspecified; E78.5 Hyperlipidemia, unspecified; G47.33 Obstructive sleep apnea (adult) (pediatric); E03.9 Hypothyroidism, unspecified; Z79.4 Long term (current) use of insulin; Z79.899 Other long term (current) drug therapy; Z88.1 Allergy status to other antibiotic agents; Z88.2 Allergy status to sulfonamides; Z88.5 Allergy status to narcotic agent; Z88.8 Allergy status to other drugs, medicaments and biological substances; Z86.73 Personal history of transient ischemic attack (TIA), and cerebral infarction without residual deficits; Z85.828 Personal history of other malignant neoplasm of skin; Z99.89 Dependence on other enabling machines and devices; Z98.84 Bariatric surgery status
CPT/HCPCS: 99285; 96374; 96361; J0360

== ENCOUNTER 2020-07-24 07:55 | Emergency (ER) | payer MEDICARE ==
[2020-07-24 08:06] VITALS: TEMP 98.6
[2020-07-24] MEDS ORDERED: SODIUM CHLORIDE 0.9% 1,000 ML IV STA (08:19)
[2020-07-24] MEDS ORDERED: SODIUM CHLORIDE 0.9% 500 ML 500 ML IV STA (08:19)
--- NOTE | 2020-07-24 08:22 | ED ---
Recheck HPI - General Chief Complaint: Recheck/Abnormal Lab/Rx Stated Complaint: Dehydrated Time Seen by Provider: 07/24/20 08:08 Source: patient, RN notes reviewed Mode of arrival: wheelchair Limitations: no limitations - History of Present Illness Initial Comments: This is a 79-year-old female history of multiple medical problems including cardiac and blood pressure issues who presents with complaints of feeling dehydrated. She states she has trouble standing and walking for the past several days his shortness breath no fevers chills or sweats. No trouble urinating. She states she normally has swollen ankles she has no swelling to her lower extremities. No other complaints at this time. She does state that she believes her blood pressure medications are responsible she has noticed that her pressure is been elevated again recently. Her last admission she states she had elevated blood pressure MD Complaint: other - Related Data Home Medications Medication Instructions Recorded Confirmed Atorvastatin [Lipitor] 80 mg PO HS 06/30/18 07/24/20 hydrALAZINE HCL [Apresoline] 100 mg PO TID 01/06/19 07/24/20 lisinopriL 40 mg PO DAILY 01/06/19 07/24/20 Furosemide [Lasix] 40 mg PO DAILY 06/18/19 07/24/20 amLODIPine BESYLATE 10 mg PO DAILY 06/18/19 07/24/20 Insulin NPL/Insulin Lispro 20 unit SQ W/SUPPER 05/30/20 07/24/20 [humaLOG MIX 75-25 VIAL] Insulin NPL/Insulin Lispro 30 unit SQ W/BRKFST 06/05/20 07/24/20 [humaLOG MIX 75-25 VIAL] Albuterol Sulfate [Proair Hfa] 2 puff INHALATION RT-Q6H PRN 07/19/20 07/24/20 Ergocalciferol [Vitamin D2] 50,000 unit PO TU 07/19/20 07/24/20 Polyethylene Glycol 3350 [Miralax] 17 gm PO DAILY 07/19/20 07/24/20 Semaglutide [Ozempic] 1 mg SQ TU 07/24/20 07/24/20 Previous Rx's Medication Instructions Recorded Apixaban [Eliquis] 5 mg PO BID #60 tab 07/04/18 Metoprolol Succinate (ER) [Toprol 25 mg PO DAILY #30 tab.er.24h 07/04/18 XL] Levothyroxine Sodium [Synthroid] 125 mcg PO DAILY #30 tab 01/08/19 Allergies Allergy/AdvReac Type Severity Reaction Status Date / Time azithromycin Allergy Rash/Hives Verified 07/24/20 09:14 [From Zithromax Z-Jeanmarie] methylprednisolone Allergy Unknown Verified 07/24/20 09:14 [From Medrol] Childhood trimethoprim [From Bactrim] Allergy Rash/Hives Verified 07/24/20 09:14 hydrochlorothiazide AdvReac lost Verified 07/24/20 09:14 balance and fell sulfamethoxazole AdvReac Rash/Hives Verified 07/24/20 09:14 [From Bactrim] Review of Systems ROS Statement: Those systems with pertinent positive or pertinent negative responses have been documented in the HPI. ROS Other: All systems not noted in ROS Statement are negative. Past Medical History Past Medical History: Atrial Fibrillation, Coronary Artery Disease (CAD), Cancer, Heart Failure, COPD, CVA/TIA, Diabetes Mellitus, Hyperlipidemia, Hypertension, Musculoskeletal Disorder, Pneumonia, Renal Disease, Sleep Apnea/CPAP/BIPAP, Thyroid Disorder Additional Past Medical History / Comment(s): Ecoli UTI w/ Ecoli bacteremia/severe sepsis, CAP,. 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 Skin cancer. History of Any Multi-Drug Resistant Organisms: None Reported Past Surgical History: Adenoidectomy, Back Surgery, Bariatric Surgery, Cholecystectomy, Heart Catheterization, Hysterectomy, Tonsillectomy Additional Past Surgical History / Comment(s): Cardiac caths , lap band placed/since removed, low back surgery, L carpal tunnel release x2, skin cancer removal, colonoscopies, bilateral cataract removals/lens implants. Past Anesthesia/Blood Transfusion Reactions: Previous Problems w/ Anesthesia Additional Past Anesthesia/Blood Transfusion Reaction / Comment(s): "Had too much anesthesia in 2007 for lab band removal, had to be bagged." Past Psychological History: No Psychological Hx Reported Smoking Status: Never smoker Past Alcohol Use History: None Reported Past Drug Use History: None Reported - Past Family History Sister(s) Family Medical History: Myocardial Infarction ([place]) Brother(s) Family Medical History: Cancer Additional Family Medical History / Comment(s): colon Mother Family Medical History: Dementia Additional Family Medical History / Comment(s): Mother of dementia at the age of 89yrs. Father Family Medical History: Cancer Additional Family Medical History / Comment(s): Pt states her father was treated for a sinus infection but really had leukemia and of this at the age of 72 yrs. General Exam - General Exam Comments Initial Comments: This is a well-developed well-nourished awake alert oriented 3 female Limitations: no limitations General appearance: alert, in no apparent distress Head exam: Present: atraumatic, normocephalic, normal inspection Eye exam: Present: normal appearance, PERRL, EOMI. Absent: scleral icterus, conjunctival injection, periorbital swelling ENT exam: Present: mucous membranes dry Neck exam: Present: normal inspection. Absent: tenderness, meningismus, lymphad enopathy Respiratory exam: Present: normal lung sounds bilaterally. Absent: respiratory distress, wheezes, rales, rhonchi, stridor Cardiovascular Exam: Present: regular rate, normal rhythm, systolic murmur, other (Shows a known murmur). Absent: diastolic murmur, rubs, gallop, clicks GI/Abdominal exam: Present: soft, normal bowel sounds. Absent: distended, tenderness, guarding, rebound, rigid Extremities exam: Present: normal inspection, full ROM, normal capillary refill. Absent: tenderness, pedal edema, joint swelling, calf tenderness Back exam: Present: normal inspection Neurological exam: Present: alert, oriented X3, CN II-XII intact Psychiatric exam: Present: normal affect, normal mood Skin exam: Present: warm, dry, intact, normal color. Absent: rash Course Vital Signs 07/24/20 07/24/20 08:03 10:00 Temperature 98.6 F Pulse Rate 83 72 Respiratory 18 16 Rate Blood Pressure 208/99 186/78 O2 Sat by Pulse 100 97 Oximetry - Reevaluation(s) Reevaluation #1: 07/24/20 10:38 Reevaluation the patient after IV fluids Pfizer she feels much improved at this time Medical Decision Making - Medical Decision Making Patient did tolerate ambulation after IV hydration. She will be discharged blood pressure is improved she will keep her appointment with Dr. Hernandez in 2 days. She is currently on Lasix we did discuss that she did talk to her doctor about possibly adjusting her Lasix dose. - Lab Data Result diagrams: 07/24/20 09:06 07/24/20 09:06 Lab Results 07/24/20 07/24/20 07/24/20 Range/Units 09:06 09:06 09:06 WBC 7.1 (3.8-10.6) k/uL RBC 4.62 (3.80-5.40) m/uL Hgb 12.3 (11.4-16.0) gm/dL Hct 39.3 (34.0-46.0) % MCV 85.1 (80.0-100.0) fL MCH 26.7 (25.0-35.0) pg MCHC 31.4 (31.0-37.0) g/dL RDW 14.3 (11.5-15.5) % Plt Count 242 (150-450) k/uL MPV 7.8 Neutrophils % 60 % Lymphocytes % 15 % Monocytes % 14 % Eosinophils % 7 % Basophils % 0 % Neutrophils # 4.3 (1.3-7.7) k/uL Lymphocytes # 1.1 (1.0-4.8) k/uL Monocytes # 1.0 (0-1.0) k/uL Eosinophils # 0.5 (0-0.7) k/uL Basophils # 0.0 (0-0.2) k/uL Hypochromasia Slight Sodium 136 L (137-145) mmol/L Potassium 4.2 (3.5-5.1) mmol/L Chloride 101 (98-107) mmol/L Carbon Dioxide 31 H (22-30) mmol/L Anion Gap 4 mmol/L BUN 20 H (7-17) mg/dL Creatinine 1.31 H (0.52-1.04) mg/dL Est GFR (CKD-EPI)AfAm 45 (>60 ml/min/1.73 sqM) Est GFR (CKD-EPI)NonAf 39 (>60 ml/min/1.73 sqM) Glucose 218 H (74-99) mg/dL Calcium 8.8 (8.4-10.2) mg/dL Magnesium 1.9 (1.6-2.3) mg/dL Total Bilirubin 0.6 (0.2-1.3) mg/dL AST 36 (14-36) U/L ALT 22 (4-34) U/L Alkaline Phosphatase 84 (38-126) U/L Creatine Kinase 77 (30-135) U/L Troponin I 0.016 (0.000-0.034) ng/mL Total Protein 6.5 (6.3-8.2) g/dL Albumin 3.6 (3.5-5.0) g/dL - EKG Data -: EKG Interpreted by Me EKG shows normal: sinus rhythm EKG Comments: Neuro sinus rhythm a 78. Interval 140 QRS duration 122 QT since QTC/465 QRS prior or QR pattern in V1 - Radiology Data Radiology results: report reviewed (Imaging reviewed no definite acute findings.), image reviewed Disposition Clinical Impression: Dehydration, Renal insufficiency Disposition: HOME SELF-CARE Condition: Good Instructions (If sedation given, give patient instructions): Dehydration (ED) Is patient prescribed a controlled substance at d/c from ED?: No Referrals: Miguelito Fontenot [Primary Care Provider] - 1-2 days
--- NOTE | 2020-07-24 09:21 | XR ---
EXAMINATION TYPE: XR chest 2V DATE OF EXAM: 07/24/2020 COMPARISON: 06/05/2020 HISTORY: 79 year-old female shortness of breath TECHNIQUE: AP and lateral views FINDINGS: Heart mildly enlarged. Atherosclerotic arch calcifications. Mild interstitial prominence. Some strand y atelectasis in the lower lungs. No consolidation or pleural effusion. IMPRESSION: Mild cardiomegaly. Mild interstitial prominence could reflect bronchitis or asthma. Otherwise, no acu te process seen.
[2020-07-24 09:29] LABS: Albumin 3.6 g/dL (3.5-5.0); Calcium 8.8 mg/dL (8.4-10.2); Magnesium 1.9 mg/dL (1.6-2.3); Potassium 4.2 mmol/L (3.5-5.1); Total Bilirubin 0.6 mg/dL (0.2-1.3); Total Protein 6.5 g/dL (6.3-8.2)
[2020-07-24 09:33] LABS: Basophils % (A) 0 %; Eosinophils # (A) 0.5 k/uL (0-0.7); Eosinophils % (A) 7 %; HCT 39.3 % (34.0-46.0); HGB 12.3 gm/dL (11.4-16.0); Hypochromasia Slight; Lymphocytes # (A) 1.1 k/uL (1.0-4.8); Lymphocytes % (A) 15 %; MCH 26.7 pg (25.0-35.0); MCHC 31.4 g/dL (31.0-37.0); MCV 85.1 fL (80.0-100.0); Mean Platelet Volume 7.8; Monocytes % (A) 14 %; Neutrophils # (A) 4.3 k/uL (1.3-7.7); Neutrophils % (A) 60 %; Platelet Count 242 k/uL (150-450); RBC 4.62 m/uL (3.80-5.40); RDW 14.3 % (11.5-15.5); WBC 7.1 k/uL (3.8-10.6)
[2020-07-24 10:01] VITALS: PULSE 72; RESP 16
[2020-07-24 11:31] VITALS: BP 177/84
== END 2020-07-24 11:34 | disposition home or self-care (01) ==
LOC: EC 07:55
DX: E86.0 Dehydration (principal); N28.9 Disorder of kidney and ureter, unspecified; I25.10 Atherosclerotic heart disease of native coronary artery without angina pectoris; I13.0 Hypertensive heart and chronic kidney disease with heart failure and stage 1 through stage 4 chronic kidney disease, or unspecified chronic kidney disease; E11.22 Type 2 diabetes mellitus with diabetic chronic kidney disease; N18.30 Chronic kidney disease, stage 3 unspecified; I50.9 Heart failure, unspecified; E78.5 Hyperlipidemia, unspecified; J44.9 Chronic obstructive pulmonary disease, unspecified; Z79.4 Long term (current) use of insulin; Z79.899 Other long term (current) drug therapy; Z88.1 Allergy status to other antibiotic agents; Z88.8 Allergy status to other drugs, medicaments and biological substances; Z88.2 Allergy status to sulfonamides; Z85.828 Personal history of other malignant neoplasm of skin; Z98.84 Bariatric surgery status; Z86.73 Personal history of transient ischemic attack (TIA), and cerebral infarction without residual deficits; Z95.5 Presence of coronary angioplasty implant and graft; Z82.49 Family history of ischemic heart disease and other diseases of the circulatory system
CPT/HCPCS: 36415; 71046; 80053; 82550; 83735; 84484; 85025; 93005; 96360; 96361; 99284

== ENCOUNTER 2020-07-26 16:23 | Emergency (ER) | payer MEDICARE ==
[2020-07-26 16:27] VITALS: RESP 18; TEMP 98.6
[2020-07-26] MEDS ORDERED: SODIUM CHLORIDE 0.9% 1,000 ML IV STA (16:41)
[2020-07-26] MEDS ORDERED: METOPROLOL SUCCINATE (ER) 25 MG TAB.ER.24H PO STA (16:42)
--- NOTE | 2020-07-26 16:44 | ED ---
General Adult HPI - General Chief complaint: Recheck/Abnormal Lab/Rx Stated complaint: Revisit - High BP Time Seen by Provider: 07/26/20 16:36 Source: patient, RN notes reviewed Mode of arrival: wheelchair Limitations: no limitations - History of Present Illness Initial comments: Patient is a pleasant 79-year-old female presenting to the emergency department with concerns for blood pressure problems. Blood pressure at home prior to arrival was 193/102. Patient states she has history of hypertension. No recent change in her medications. Patient also is concerned that she could be dehydrated secondary to her medications. No weakness or confusion. No fever. No chest pain or dyspnea. - Related Data Home Medications Medication Instructions Recorded Confirmed Atorvastatin [Lipitor] 80 mg PO HS 06/30/18 07/26/20 hydrALAZINE HCL [Apresoline] 100 mg PO TID 01/06/19 07/26/20 lisinopriL 40 mg PO DAILY 01/06/19 07/26/20 Furosemide [Lasix] 40 mg PO DAILY 06/18/19 07/26/20 amLODIPine BESYLATE 10 mg PO DAILY 06/18/19 07/26/20 Insulin NPL/Insulin Lispro 20 unit SQ W/SUPPER 05/30/20 07/26/20 [humaLOG MIX 75-25 VIAL] Insulin NPL/Insulin Lispro 30 unit SQ W/BRKFST 06/05/20 07/26/20 [humaLOG MIX 75-25 VIAL] Albuterol Sulfate [Proair Hfa] 2 puff INHALATION RT-Q6H PRN 07/19/20 07/26/20 Ergocalciferol [Vitamin D2] 50,000 unit PO TU 07/19/20 07/26/20 Polyethylene Glycol 3350 [Miralax] 17 gm PO DAILY 07/19/20 07/26/20 Semaglutide [Ozempic] 1 mg SQ TU 07/24/20 07/26/20 Previous Rx's Medication Instructions Recorded Apixaban [Eliquis] 5 mg PO BID #60 tab 07/04/18 Levothyroxine Sodium [Synthroid] 125 mcg PO DAILY #30 tab 01/08/19 Allergies Allergy/AdvReac Type Severity Reaction Status Date / Time azithromycin Allergy Rash/Hives Verified 07/26/20 17:17 [From Zithromax Z-Jeanmarie] methylprednisolone Allergy Unknown Verified 07/26/20 17:17 [From Medrol] Childhood trimethoprim [From Bactrim] Allergy Rash/Hives Verified 07/26/20 17:17 hydrochlorothiazide AdvReac lost Verified 07/26/20 17:17 balance and fell sulfamethoxazole AdvReac Rash/Hives Verified 07/26/20 17:17 [From Bactrim] Review of Systems ROS Statement: Those systems with pertinent positive or pertinent negative responses have been documented in the HPI. ROS Other: All systems not noted in ROS Statement are negative. Constitutional: Denies: fever Eyes: Denies: eye pain ENT: Denies: ear pain Respiratory: Denies: cough Cardiovascular: Denies: chest pain Endocrine: Denies: fatigue Gastrointestinal: Denies: abdominal pain Genitourinary: Denies: dysuria Musculoskeletal: Denies: back pain Skin: Denies: rash Neurological: Denies: weakness Past Medical History Past Medical History: Atrial Fibrillation, Coronary Artery Disease (CAD), Cancer, Heart Failure, COPD, CVA/TIA, Diabetes Mellitus, Hyperlipidemia, Hypertension, Musculoskeletal Disorder, Pneumonia, Renal Disease, Sleep Apnea/CPAP/BIPAP, Thyroid Disorder Additional Past Medical History / Comment(s): Ecoli UTI w/ Ecoli bacteremia/severe sepsis, CAP,. 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 Skin cancer. History of Any Multi-Drug Resistant Organisms: None Reported Past Surgical History: Adenoidectomy, Back Surgery, Bariatric Surgery, Cholecystectomy, Heart Catheterization, Hysterectomy, Tonsillectomy Additional Past Surgical History / Comment(s): Cardiac caths , lap band placed/since removed, low back surgery, L carpal tunnel release x2, skin cancer removal, colonoscopies, bilateral cataract removals/lens implants. Past Anesthesia/Blood Transfusion Reactions: Previous Problems w/ Anesthesia Additional Past Anesthesia/Blood Transfusion Reaction / Comment(s): "Had too much anesthesia in 2007 for lab band removal, had to be bagged." Past Psychological History: No Psychological Hx Reported Smoking Status: Never smoker Past Alcohol Use History: None Reported Past Drug Use History: None Reported - Past Family History Sister(s) Family Medical History: Myocardial Infarction ([place]) Brother(s) Family Medical History: Cancer Additional Family Medical History / Comment(s): colon Mother Family Medical History: Dementia Additional Family Medical History / Comment(s): Mother of dementia at the age of 89yrs. Father Family Medical History: Cancer Additional Family Medical History / Comment(s): Pt states her father was treated for a sinus infection but really had leukemia and of this at the age of 72 yrs. General Exam Limitations: no limitations General appearance: alert, in no apparent distress Head exam: Present: normocephalic Eye exam: Present: normal appearance Neck exam: Present: normal inspection Respiratory exam: Present: normal lung sounds bilaterally Cardiovascular Exam: Present: regular rate, normal rhythm, systolic murmur (Right-sided, patient states chronic) GI/Abdominal exam: Present: soft. Absent: tenderness Extremities exam: Present: normal inspection. Absent: pedal edema, calf tenderness Neurological exam: Present: alert Psychiatric exam: Present: normal affect, normal mood Skin exam: Present: normal color Course Vital Signs 07/26/20 07/26/20 16:25 17:38 Temperature 98.6 F Pulse Rate 90 Respiratory 18 Rate Blood Pressure 226/102 193/88 O2 Sat by Pulse 98 Oximetry EKG Findings - EKG Comments: EKG Findings:: Sinus rhythm at 76. [place] 136. QRS 100. QT 408. QTC 459. Left axis. LVH criteria. Nonspecific T waves. Medical Decision Making - Medical Decision Making Patient reevaluated and resting comfortably in bed, symptom-free. Blood pressu re 184/79. Patient updated on results and need for follow-up. - Lab Data Result diagrams: 07/26/20 16:46 07/26/20 16:46 Lab Results 07/26/20 07/26/20 07/26/20 Range/Units 16:46 16:46 16:46 WBC 8.7 (3.8-10.6) k/uL RBC 4.60 (3.80-5.40) m/uL Hgb 12.3 (11.4-16.0) gm/dL Hct 38.8 (34.0-46.0) % MCV 84.5 (80.0-100.0) fL MCH 26.7 (25.0-35.0) pg MCHC 31.6 (31.0-37.0) g/dL RDW 14.5 (11.5-15.5) % Plt Count 231 (150-450) k/uL MPV 7.9 Neutrophils % 60 % Lymphocytes % 20 % Monocytes % 12 % Eosinophils % 4 % Basophils % 0 % Neutrophils # 5.2 (1.3-7.7) k/uL Lymphocytes # 1.7 (1.0-4.8) k/uL Monocytes # 1.0 (0-1.0) k/uL Eosinophils # 0.3 (0-0.7) k/uL Basophils # 0.0 (0-0.2) k/uL Sodium 138 (137-145) mmol/L Potassium 3.8 (3.5-5.1) mmol/L Chloride 100 (98-107) mmol/L Carbon Dioxide 34 H (22-30) mmol/L Anion Gap 4 mmol/L BUN 19 H (7-17) mg/dL Creatinine 1.27 H (0.52-1.04) mg/dL Est GFR (CKD-EPI)AfAm 47 (>60 ml/min/1.73 sqM) Est GFR (CKD-EPI)NonAf 41 (>60 ml/min/1.73 sqM) Glucose 238 H (74-99) mg/dL Calcium 9.3 (8.4-10.2) mg/dL Total Bilirubin 0.5 (0.2-1.3) mg/dL AST 31 (14-36) U/L ALT 26 (4-34) U/L Alkaline Phosphatase 102 (38-126) U/L Total Protein 7.1 (6.3-8.2) g/dL Albumin 4.0 (3.5-5.0) g/dL Urine Color Light Yellow Urine Appearance Clear (Clear) Urine pH 7.0 (5.0-8.0) Ur Specific [place] 1.006 (1.001-1.035) Urine Protein 2+ H (Negative) Urine Glucose (UA) 1+ H (Negative) Urine Ketones Negative (Negative) Urine Blood Negative (Negative) Urine Nitrite Negative (Negative) Urine Bilirubin Negative (Negative) Urine Urobilinogen <2.0 (<2.0) mg/dL Ur Leukocyte Esterase Small H (Negative) Urine RBC 2 (0-5) /hpf Urine WBC 10 H (0-5) /hpf Ur Squamous Epith Cells <1 (0-4) /hpf Urine Mucus Rare H (None) /hpf - Radiology Data Radiology results: image reviewed (Chest x-ray shows no acute process) Disposition Clinical Impression: Hypertension Disposition: HOME SELF-CARE Condition: Stable Instructions (If sedation given, give patient instructions): Hypertension (ED) Additional Instructions: Please follow-up with primary care physician and 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 Return for uncontrolled blood pressure, worsening or change in symptoms or other concerns. Is patient prescribed a controlled substance at d/c from ED?: No Referrals: Miguelito Fontenot [Primary Care Provider] - 1-2 days Time of Disposition: 18:01
[2020-07-26 17:07] LABS: Appearance,Urine Clear (Clear); Bilirubin,Urine Negative (Negative); Blood,Urine Negative (Negative); Color,Urine Light Yellow; Glucose,Urine (UA) 1+ (Negative); Ketones,Urine Negative (Negative); Leukocyte Esterase,Urine Small (Negative); Mucus,Urine Rare /hpf; Nitrite,Urine Negative (Negative); Protein,Urine 2+ (Negative); RBC,Urine 2 /hpf (0-5); Specific Gravity,Urine 1.006 (1.001-1.035); Squamous Epithelial Cell,Urine <1 /hpf (0-4); Urobilinogen,Urine <2.0 mg/dL (<2.0); WBC,Urine 10 /hpf (0-5)
[2020-07-26 17:15] LABS: Basophils % (A) 0 %; Eosinophils # (A) 0.3 k/uL (0-0.7); Eosinophils % (A) 4 %; HCT 38.8 % (34.0-46.0); HGB 12.3 gm/dL (11.4-16.0); Lymphocytes # (A) 1.7 k/uL (1.0-4.8); Lymphocytes % (A) 20 %; MCH 26.7 pg (25.0-35.0); MCHC 31.6 g/dL (31.0-37.0); MCV 84.5 fL (80.0-100.0); Mean Platelet Volume 7.9; Monocytes % (A) 12 %; Neutrophils # (A) 5.2 k/uL (1.3-7.7); Neutrophils % (A) 60 %; Platelet Count 231 k/uL (150-450); RDW 14.5 % (11.5-15.5); WBC 8.7 k/uL (3.8-10.6)
[2020-07-26 17:27] LABS: Calcium 9.3 mg/dL (8.4-10.2); Potassium 3.8 mmol/L (3.5-5.1); Total Bilirubin 0.5 mg/dL (0.2-1.3); Total Protein 7.1 g/dL (6.3-8.2)
--- NOTE | 2020-07-26 17:33 | XR ---
EXAMINATION TYPE: XR chest 2V DATE OF EXAM: 07/26/2020 COMPARISON: 07/24/2020 HISTORY: Weakness TECHNIQUE: 2 views FINDINGS: There is no heart failure nor confluent pneumonic infiltrate. Costophrenic angles are clear . There are chest leads. Thoracic aorta is atheromatous. Bony thorax is intact. IMPRESSION: No active cardiopulmonary disease. No change.
[2020-07-26] MEDS ORDERED: SODIUM CHLORIDE 0.9% 500 ML 500 ML IV STA (18:01)
[2020-07-26 18:21] VITALS: BP 177/70
[2020-07-26 18:41] VITALS: PULSE 92
== END 2020-07-26 18:41 | disposition home or self-care (01) ==
LOC: EC 16:23
DX: I13.0 Hypertensive heart and chronic kidney disease with heart failure and stage 1 through stage 4 chronic kidney disease, or unspecified chronic kidney disease (principal); I50.9 Heart failure, unspecified; E11.22 Type 2 diabetes mellitus with diabetic chronic kidney disease; N18.2 Chronic kidney disease, stage 2 (mild); E78.5 Hyperlipidemia, unspecified; I25.10 Atherosclerotic heart disease of native coronary artery without angina pectoris; I48.91 Unspecified atrial fibrillation; J44.9 Chronic obstructive pulmonary disease, unspecified; G47.30 Sleep apnea, unspecified; E03.9 Hypothyroidism, unspecified; Z79.4 Long term (current) use of insulin; Z79.899 Other long term (current) drug therapy; Z88.1 Allergy status to other antibiotic agents; Z88.2 Allergy status to sulfonamides; Z88.8 Allergy status to other drugs, medicaments and biological substances; Z86.73 Personal history of transient ischemic attack (TIA), and cerebral infarction without residual deficits; Z85.828 Personal history of other malignant neoplasm of skin; Z98.84 Bariatric surgery status; Z99.89 Dependence on other enabling machines and devices
CPT/HCPCS: 36415; 71046; 80053; 81001; 85025; 93005; 96360; 99283

== ENCOUNTER 2020-08-31 07:20 | Day surgery (SDC) | payer MEDICARE ==
[2020-08-27 09:46] VITALS: BMI 34.3
[~2020-08-31 07:20] MED LIST changes: -LIDOCAINE 1% (10MG/ML) FOR IV START INTRADERMA PRN
[2020-08-31 07:48] LABS: Glucose,Whole Blood 244 mg/dL (75-99)
[2020-08-31 07:48] LABS: Glucose,Whole Blood 222 mg/dL (75-99)
[2020-08-31 07:49] VITALS: TEMP 97.5
[2020-08-31] MEDS ORDERED: LIDOCAINE 1% (10MG/ML) FOR IV START INTRADERMA ONE (07:49)
[2020-08-31] MEDS ORDERED: INSULIN ASPART (NovoLOG) 100 UNIT/ML VIAL SQ ONE (07:51)
[2020-08-31] MEDS ORDERED: methylPREDNISolone ACETATE 40 MG/ML 1 ML VIAL ONE (08:33)
[2020-08-31] MEDS ORDERED: IOPAMIDOL M200 10 ML VIAL ONE (08:33)
[2020-08-31] MEDS ORDERED: fentaNYL (PF) 50 MCG/ML 2 ML AMP ONE (08:33)
[2020-08-31] MEDS ORDERED: MIDAZOLAM 2 MG/2 ML VIAL ONE (08:33)
[2020-08-31] MEDS ORDERED: SODIUM CHLORIDE 0.9% (PF) 10 ML VIAL ONE (08:33)
--- NOTE | 2020-08-31 08:55 | P.PCN ---
Date of Procedure: 08/31/20 Procedure(s) Performed: PREOP DIAGNOSIS: 1- Lumbar postlaminectomy syndrome. 2-lumbar spinal stenosis POSTOP DIAGNOSIS:1- Lumbar postlaminectomy syndrome. 2-lumbar spinal stenosis PROCEDURE: 1-Caudal epidural steroid injection with epidurolysis and epidurogram under fluoroscopic guidance. (Fluoroscopy images available in the radiology Department ) 2-caudal epidurogram. ANESTHESIA: Local with 1% lidocaine 3 ml ,and moderate sedation, with Versed 2 mg and fentanyl 100 g. EBL: Minimal. PROCEDURE INDICATION: The patient with post-laminectomy syndrome with low back pain and radiculopathy radiating down in both legs, here for a caudal epidural steroid injection with epidurolysis. PROCEDURE DESCRIPTION: The patient was seen and identified in the preoperative area. Risks, benefits, complications, and alternatives were discussed with the patient. The patient agreed to proceed with the procedure and signed the consent. IV was started, and vital signs were stable. Patient was taken to the OR and time out was completed. The patient was placed in the prone position on procedure table and a pillow was placed under the abdomen to reduce lumbar lordosis. The lumbosacral area was prepped and draped in the usual sterile fashion. Vital signs were closely monitored during the procedure. lateral view and the anterior-posterior plates of the sacrum were identified with infiltration of the area overlying the sacral hiatus with 1% li docaine .A 17 gauge RK epidural needle was used to advance through the sacral hiatus into the caudal epidural space. Omnipaque 180 dye. 2cc was injected and the position of the needle was verified to be in the midline. A Racz catheter was introduced into the epidural space and was advanced towards the L5-S1 interspace under direct fluoroscopic guidance. Multiple passes were made with the catheter for lysis of epidural adhesions. Depo-Medrol 40 mg with 3ml of preservative free Lidocaine 1% and 5 ml of preservative free normal saline was injected slowly. Additional spread was seen to L4 under fluoroscopy. The needle and the catheter were withdrawn intact. EPIDUROGRAM: Omnipaque 180 mg dye 2 ml was injected with spread of the dye into the caudal epidural space and with spread cutoff at L5 prior to epidurolysis. Post epidurolysis dye 2 ml was injected and spread was seen to L3-4.There was further spread of the solution together with the dye above the L3 COMPLICATIONS: None. DISPOSITION / PLANS: The patient was placed in a supine position and transferred to the recovery area in a stable condition for observation and was discharged from the recovery room after meeting discharge criteria. Home discharge instructions given to the patient by the staff. The patient was reexamined prior to discharge. The patient will schedule a follow up in the clinic in 2-4 weeks. Last dose of ELEQUIS was 08/27/2020
[2020-08-31] MEDS ORDERED: IV FLUID CONTINUATION 500 ML IV ONE (09:04)
[2020-08-31 09:10] VITALS: RESP 16
[2020-08-31 09:17] LABS: Glucose,Whole Blood 228 mg/dL (75-99)
[2020-08-31 09:21] VITALS: BP 138/75; PULSE 77
--- NOTE | 2020-08-31 13:41 | FL ---
Fluoroscopy HISTORY: Pain 15 seconds fluoroscopy time supplied to the referring clinician. 3 intraoperative C-arm images docum ent the procedure. See dictated report from anesthesia.
== END 2020-08-31 09:37 | disposition home or self-care (01) ==
LOC: ORPAIN 07:20
PROVIDERS: ATTEND Specialist
DX: M96.1 Postlaminectomy syndrome, not elsewhere classified (principal); M51.16 Intervertebral disc disorders with radiculopathy, lumbar region; M48.061 Spinal stenosis, lumbar region without neurogenic claudication; I48.91 Unspecified atrial fibrillation; I11.0 Hypertensive heart disease with heart failure; I50.9 Heart failure, unspecified; J44.9 Chronic obstructive pulmonary disease, unspecified; E11.9 Type 2 diabetes mellitus without complications; Z79.01 Long term (current) use of anticoagulants; Z88.1 Allergy status to other antibiotic agents; Z88.8 Allergy status to other drugs, medicaments and biological substances
CPT/HCPCS: 62264; J2250; J1030; J3010; Q9966; C1894; 62323; 99152

== ENCOUNTER → 2020-09-21 | Day surgery (SDC) | payer MEDICARE, OTHER ==
[2020-09-13 12:01] VITALS: BMI 37.4
[~2020-09-21] MED LIST changes: +INSULIN ASPART (NovoLOG) 100 UNIT/ML VIAL SQ ONE; +IOPAMIDOL M200 10 ML VIAL ONE; +IV FLUID CONTINUATION 800 ML IV ONE; +LIDOCAINE 1% INJ 10MG/ML (20 ML MDV) ONE; +MIDAZOLAM 2 MG/2 ML VIAL ONE; +SODIUM CHLORIDE 0.9% (PF) 10 ML VIAL ONE; +fentaNYL (PF) 50 MCG/ML 2 ML AMP ONE; +methylPREDNISolone ACETATE 40 MG/ML 1 ML VIAL ONE
[2020-09-21 09:18] VITALS: TEMP 97.8
[2020-09-21 09:24] LABS: Glucose,Whole Blood 276 mg/dL (75-99)
--- NOTE | 2020-09-21 09:45 | P.PCN ---
Date of Procedure: 09/21/20 Description of Procedure: PREOP DIAGNOSIS: 1- Lumbar postlaminectomy syndrome. 2-lumbar spinal stenosis POSTOP DIAGNOSIS:1- Lumbar postlaminectomy syndrome. 2-lumbar spinal stenosis PROCEDURE: 1-Caudal epidural steroid injection with epidurolysis and epidurogram under fluoroscopic guidance. (Fluoroscopy images available in the radiology Department ) 2-caudal epidurogram. ANESTHESIA: Local with 1% lidocaine 3 ml ,and moderate sedation, with Versed 3 mg and fentanyl 100 g. EBL: Minimal. PROCEDURE INDICATION: The patient with post-laminectomy syndrome with low back pain and radiculopathy radiating down in both legs, here for a caudal epidural steroid injection with epidurolysis. PROCEDURE DESCRIPTION: The patient was seen and identified in the preoperative area. Risks, benefits, complications, and alternatives were discussed with the patient. The patient agreed to proceed with the procedure and signed the consent. IV was started, and vital signs were stable. Patient was taken to the OR and time out was completed. The patient was placed in the prone position on procedure table and a pillow was placed under the abdomen to reduce lumbar lordosis. The lumbosacral area was prepped and draped in the usual sterile fashion. Vital signs were closely monitored during the procedure. lateral view and the anterior-posterior plates of the sacrum were identified with infiltration of the area overlying the sacral hiatus with 1% lidocaine .A 17 gauge RK epidural needle was used to advance through the sacral hiatus into the caudal epidural space. Omnipaque 180 dye. 2cc was injected and the position of the needle was verified to be in the midline. A Racz catheter was introduced into the epidural space and was advanced towards the L5-S1 interspace under direct fluoroscopic guidance. Multiple passes were made with the catheter for lysis of epidural adhesions. Depo-Medrol 40 mg with 3ml and 7 ml of preservative free normal saline was injected slowly. Additional spread was seen to L4 under fluoroscopy. The needle and the catheter were withdrawn intact. EPIDUROGRAM: Omnipaque 180 mg dye 2 ml was injected with spread of the dye into the caudal epidural space and with spread cutoff at L5 prior to epidurolysis. Post epidurolysis dye 2 ml was injected and spread was seen to L3-4.There was further spread of the solution together with the dye above the L3 COMPLICATIONS: None. DISPOSITION / PLANS: The patient was placed in a supine position and transferred to the recovery area in a stable condition for observation and was discharged from the recovery room after meeting discharge criteria. Home discharge instructions given to the patient by the staff. The patient was reexamined prior to discharge. The patient will schedule a follow up in the clinic in 2-4 weeks. Patient states she is no longer taking Eliquis, has not for 1.5 months.
[2020-09-21 10:20] LABS: Glucose,Whole Blood 338 mg/dL (75-99)
--- NOTE | 2020-09-21 10:40 | FL ---
Fluoroscopy HISTORY: Pain 11 seconds fluoroscopy time supplied to the referring clinician. 2 intraoperative C-arm images docum ent the procedure. See dictated report from anesthesia.
[2020-09-21 10:41] LABS: Glucose,Whole Blood 306 mg/dL (75-99)
[2020-09-21 11:22] LABS: Glucose,Whole Blood 274 mg/dL (75-99)
[2020-09-21 11:37] VITALS: BP 136/85; PULSE 75; RESP 16
== END | disposition home or self-care (01) ==
LOC: ORPAIN 08:49
PROVIDERS: ATTEND Anesthesiology
DX: M54.16 Radiculopathy, lumbar region (principal); M96.1 Postlaminectomy syndrome, not elsewhere classified; M48.061 Spinal stenosis, lumbar region without neurogenic claudication; E11.9 Type 2 diabetes mellitus without complications; Z79.01 Long term (current) use of anticoagulants
CPT/HCPCS: 62264; J2250; J1030; J2001; J3010; Q9966; C1894

== ENCOUNTER → 2020-09-29 | Outpatient (CLI) | payer MEDICARE, OTHER ==
[2020-09-29 15:22] LABS: African American GFR (CKD) 45.2 (60.0-200.0); Albumin 3.7 g/dL (3.80-4.90); Albumin/Globulin Ratio 2.06 (1.60-3.17); Anion Gap 6.9 mmol/L (4.00-12.00); BUN/Creat Ratio 20.77 Ratio (12.00-20.00); Calcium 8.2 mg/dL (8.7-10.3); Carbon Dioxide 28.1 mmol/L (21.6-31.8); Chol/HDL Ratio 2.51; Globulin 1.8 g/dL (1.6-3.3); Potassium 4.3 mmol/L (3.5-5.5); Total Bilirubin 0.5 mg/dL (0.2-1.2); Total Protein 5.5 g/dL (6.2-8.2)
[2020-09-30 00:59] LABS: Hemoglobin A1C 10.4 % (4.0-6.0)
[2020-09-30 02:47] LABS: Urine Creatinine 44.8 mg/dL
== END | disposition home or self-care (01) ==
LOC: LABWHC1 09:04
PROVIDERS: ATTEND Internal Medicine Interventional Cardiology
DX: E11.65 Type 2 diabetes mellitus with hyperglycemia (principal); E03.9 Hypothyroidism, unspecified; E78.2 Mixed hyperlipidemia
CPT/HCPCS: 36415; 80053; 80061; 82043; 82570; 83036; 84439; 84443

== ENCOUNTER → 2020-10-18 | Outpatient (CLI) | payer MEDICARE, OTHER ==
[2020-10-18 11:16] VITALS: BP 169/83; PULSE 80; RESP 16; TEMP 97.9
--- NOTE | 2020-10-18 11:30 | P.PAINPG ---
Subjective Progress Note Date: 10/18/20 - History of Present Illness This is a 79-year-old patient referred by Dr. Nur with a chief complaint of chronic pain in the low back. She says the pain began in October 2019 after she fell backwards. She had x-rays and MRI. Pain is located in the low back described as throbbing and aching and constant throughout the day. She feels like her legs are weak and her pain gets worse with standing. She is a history of L4-S1 fusion done in the year 1999. Recently she is only taking Aleve and Motrin which is helped a little bit. She has done physical therapy and chiropractor which has not helped much. Of note she did notice that a month and a half ago she had some type of loss of bowel and bladder function. That has since subsided. She has no saddle analgesia or worsening weakness of her lower extremities. Most recently had caudal TONI with RADHA x 2. Noted the procedure gave 100% relief but only lasted 2 weeks. She is now back to her baseline pain. Pain is located still in the low back with occasional radiation to the bilateral lower extremities. Pain is worse with standing and she feels like her legs are weak. She saw Dr. uNr who said he would likely not do surgery for her. Patient denies adverse drug effects from medications. Patient also denies new- onset weakness, bowel/bladder incontinence, or any other signs or symptoms of cauda equina syndrome. There are no signs of acute intoxication, and no indications of medication diversion or overuse. In addition to above, 13-point review of systems is also negative for chest pain, shortness of breath, changes in vision, changes in hearing, new onset weakness, abdominal pain, diarrhea, extreme fatigue, malaise, fever, skin changes, homicidal or suicidal ideation, or bowel or bladder incontinence. Physical exam: Vital Signs: Reviewed in EMR GENERAL: Well appearing, in no acute distress PSYCH: Mood and affect is appropriate. Awake, alert, and oriented SKIN: Skin color, texture, turgor normal, no rashes or lesions HEENT: Normocephalic, atraumatic. EOM intact CV: No pedal edema RESP: Respirations are unlabored, no audible wheezing GI: Abdomen non-distended MUSCULOSKELETAL: Bilateral upper and lower extremity strength is normal and symmetric. Lumbar muscular atrophy noted Lumbar spine: Straight leg raising in the sitting position is negative for radicular pain. No pain to palpation over the lumbar spine and paraspinous muscles. Negative for pain with facet loading and back extension/rotation. Decreased flexion to 60 degrees, 20 degrees extension Buttocks: pain to palpation over the PSIS, Kevin test is positive for low back pain bilaterally Extremities: Peripheral joint ROM is full and painful without obvious instability or laxity in all four extremities. No edema or skin discolorations noted. Gait: antalgic gait, stooped over NEUR: Bilateral upper and lower extremity coordination and muscle stretch reflexes are physiologic and symmetric. Negative clonus. No loss of sensation is noted. Cranial nerves are grossly intact. Imaging: X-ray Lumbar spine Postsurgical change involving the lower lumbar spine anterolisthesis of L4 on L5 and L3 on L4. Multilevel diffuse osteopenia. There is multilevel facet arthropathy and degenerative disc disease. MRI lumbar spine MRI lumbar spine shows evidence of prior surgery L4-L5 and L5-S1 appears stable and will decompress. At L3-L4 there is some Adelso level degeneration with central and bilateral neural foraminal stenosis. Moderate spinal canal stenosis at L2-L3. Assessment: 1. Lumbar spinal canal stenosis 2. Lumbar spondylosis Plan: 1. Explanation: Diagnoses, prognoses, and multiple treatment options including but not limited to physical therapy, interventional therapies, medication management and surgery were discussed with the patient and all questions were answered to the patient's satisfaction. 2. Investigations: None 3. Counseling: The patient was counseled for 3 minutes on BODY MASS INDEX, EXERCISE. Specifically, the patient was instructed regarding the importance of weight control, and exercise in the context of both chronic pain and overall health. 4. Procedures: - Unfortunately the procedure only lasted about 2 weeks. I had along discussion with the patient regarding epidural steroid injections. Her imaging does show evidence of osteopenia and she does take a blood thinner for history of stroke. In general doing a procedure on her would be high risk for worsening osteopenia as well as having to withhold her blood thinner. We can repeat this procedure in 3-4 months. 5. Consultations: None 6. Medications: Given her GFR 45, I will prescribe her gabapentin 200 milligrams twice a day. I educated her to take 200 mg orally once at night for the first week and then 200 mg twice a day. We can go up beyond that. I also prescribed Robaxin 500 mg twice a day 7. Disposition: 1 month, we will go over how she is doing with the gabapentin and Robaxin. In The future we can consider facet intervention as well. I have spent 38 minutes with chart reviewing the patient, speaking to the patient, and discussing plan of care with the patient PQRS Measure Charge Sheet PQRS Narrative: Smoking Status Never smoker Pain Intensity [Bilateral 9 Lower Posterior Leg] Pain Intensity [Lower Back] 9 Hx Alcohol Use (MH) No Home Medications: Ambulatory Orders Atorvastatin [Lipitor] 80 mg PO HS 06/30/18 Apixaban [Eliquis] 5 mg PO BID #60 tab 07/04/18 hydrALAZINE HCL [Apresoline] 100 mg PO TID 01/06/19 lisinopriL 40 mg PO DAILY 01/06/19 Levothyroxine Sodium [Synthroid] 125 mcg PO DAILY #30 tab 01/08/19 Furosemide [Lasix] 20 mg PO DAILY 06/18/19 amLODIPine BESYLATE 10 mg PO DAILY 06/18/19 Insulin NPL/Insulin Lispro [humaLOG MIX 75-25 VIAL] 20 unit SQ HS 05/30/20 Insulin NPL/Insulin Lispro [humaLOG MIX 75-25 VIAL] 40 unit SQ W/BRKFST 06/05/20 Albuterol Sulfate [Proair Hfa] 2 puff INHALATION RT-Q6H PRN 07/19/20 Ergocalciferol [Vitamin D2] 50,000 unit PO TU 07/19/20 Polyethylene Glycol 3350 [Miralax] 17 gm PO DAILY 07/19/20 Pioglitazone [Actos] 15 mg PO DAILY 09/13/20 Dapagliflozin Propanediol [Farxiga] 10 mg PO QAM 09/20/20 Acetaminophen [Tylenol Extra Strength] 500 - 1,000 mg PO DIRECTED PRN 10/14/20 Menthol [Biofreeze] 1 applic TOPICAL DIRECTED PRN 10/14/20 Gabapentin [Neurontin] 200 mg PO BID 120 Days #30 cap 10/18/20 methocarbamoL [Robaxin] 500 mg PO QID 30 Days #60 tab 10/18/20 Controlled Substance Measures - Controlled Substance Measures Is patient prescribed a controlled substance at discharge?: Yes When asked, does pt state using other controlled substances?: No If prescribed controlled substance>3 days was MAPS reviewed?: Yes If Rx opioid, was Start Talking consent form obtained?: Yes Was information provided regarding opioid addiction?: Yes
== END ==
LOC: PNWHC3 10:52
PROVIDERS: ATTEND Anesthesiology
DX: M48.061 Spinal stenosis, lumbar region without neurogenic claudication (principal); M47.816 Spondylosis without myelopathy or radiculopathy, lumbar region
CPT/HCPCS: 99211

== ENCOUNTER → 2020-11-09 | Outpatient (CLI) | payer MEDICARE ==
[2020-11-09 11:47] LABS: Appearance,Urine Clear (Clear); Bilirubin,Urine Negative (Negative); Blood,Urine Small (Negative); Color,Urine Yellow; Glucose,Urine (UA) 3+ (Negative); Ketones,Urine Negative (Negative); Leukocyte Esterase,Urine Trace (Negative); Mucus,Urine Rare /hpf; Nitrite,Urine Negative (Negative); Protein,Urine 3+ (Negative); RBC,Urine 2 /hpf (0-5); Specific Gravity,Urine 1.019 (1.001-1.035); Squamous Epithelial Cell,Urine 1 /hpf (0-4); Urobilinogen,Urine <2.0 mg/dL (<2.0); WBC,Urine 9 /hpf (0-5)
[2020-11-09 15:21] LABS: HCT 42.3 % (37.2-46.3); MCHC 30.7 g/dL (32.0-37.0); MCV 87.8 fL (80.0-97.0); Mean Platelet Volume 10.5 fL (9.5-12.2); Platelet Count 325 X 10*3/uL (140-440); RBC 4.82 X 10*6/uL (4.10-5.20); RDW 13.7 % (11.5-14.5); WBC 10.89 X 10*3/uL (4.50-10.00)
[2020-11-09 17:22] LABS: Basophils # (A) 0.11 X 10*3/uL (0.00-0.10); Eosinophils # (A) 0.83 X 10*3/uL (0.04-0.35); Eosinophils % (A) 7.6 %; Lymphocytes # (A) 2.44 X 10*3/uL (0.90-5.00); Lymphocytes % (A) 22.4 %; Monocytes # (A) 1.73 X 10*3/uL (0.20-1.00); Monocytes % (A) 15.9 %; Neutrophils # (A) 5.59 X 10*3/uL (1.80-7.70); Neutrophils % (A) 51.4 %
[2020-11-09 18:19] LABS: % Iron Saturation 14.84 (12.00-45.00); African American GFR (CKD) 49.8 (60.0-200.0); Albumin 4.1 g/dL (3.80-4.90); Albumin/Globulin Ratio 1.78 (1.60-3.17); Anion Gap 10.6 mmol/L (4.00-12.00); BUN/Creat Ratio 16.67 Ratio (12.00-20.00); Carbon Dioxide 26.4 mmol/L (21.6-31.8); Globulin 2.3 g/dL (1.6-3.3); Non-African American GFR(CKD) 42.9 (60.0-200.0); Phosphorus 3.8 mg/dL (2.4-5.1); Potassium 3.9 mmol/L (3.5-5.5); Total Bilirubin 0.4 mg/dL (0.3-1.2); Total Protein 6.4 g/dL (6.2-8.2)
[2020-11-09 18:28] LABS: Ferritin 25.6 ng/mL (10.0-291.0)
== END | disposition home or self-care (01) ==
LOC: LABWHC1 10:24
PROVIDERS: ATTEND Nurse Practitioner Family
DX: N18.30 Chronic kidney disease, stage 3 unspecified (principal); D64.9 Anemia, unspecified; N39.0 Urinary tract infection, site not specified; R80.9 Proteinuria, unspecified; N25.81 Secondary hyperparathyroidism of renal origin; E55.9 Vitamin D deficiency, unspecified
CPT/HCPCS: 36415; 80053; 81001; 82043; 82306; 82570; 82728; 83540; 83550; 83970; 84100; 85025

== ENCOUNTER → 2021-01-04 | Outpatient (CLI) | payer MEDICARE ==
[2021-01-04 18:21] LABS: African American GFR (CKD) 45.2 (60.0-200.0); Albumin 3.8 g/dL (3.80-4.90); Albumin/Globulin Ratio 1.65 (1.60-3.17); Anion Gap 9.7 mmol/L (4.00-12.00); BUN/Creat Ratio 14.62 Ratio (12.00-20.00); Calcium 8.5 mg/dL (8.7-10.3); Carbon Dioxide 27.3 mmol/L (21.6-31.8); Chol/HDL Ratio 2.48; Globulin 2.3 g/dL (1.6-3.3); LDL Cholesterol,Calculated 50.6 mg/dL (0.0-131.0); Potassium 3.8 mmol/L (3.5-5.5); Total Bilirubin 0.5 mg/dL (0.2-1.2); Total Protein 6.1 g/dL (6.2-8.2); VLDL Calculation 29.4 mg/dL (5.00-40.00)
== END | disposition home or self-care (01) ==
LOC: LABWHC1 09:18
PROVIDERS: ATTEND Internal Medicine Interventional Cardiology
DX: E78.2 Mixed hyperlipidemia (principal)
CPT/HCPCS: 36415; 80053; 80061

== ENCOUNTER → 2021-03-15 | Outpatient (CLI) | payer SELFPAY ==
[2021-03-15 12:14] LABS: Appearance,Urine Cloudy (Clear); Bilirubin,Urine Negative (Negative); Blood,Urine Negative (Negative); Color,Urine Yellow; Glucose,Urine (UA) 3+ (Negative); Hyaline Casts,Urine 19 /lpf (0-2); Ketones,Urine Negative (Negative); Leukocyte Esterase,Urine Moderate (Negative); Mucus,Urine Rare /hpf; Nitrite,Urine Negative (Negative); PH, Urine 5.5 (5.0-8.0); Protein,Urine 2+ (Negative); RBC,Urine 1 /hpf (0-5); Specific Gravity,Urine 1.013 (1.001-1.035); Squamous Epithelial Cell,Urine 3 /hpf (0-4); Urobilinogen,Urine <2.0 mg/dL (<2.0); WBC,Urine 15 /hpf (0-5)
[2021-03-15 14:47] LABS: HGB 11.4 g/dL (12.0-15.0); MCH 27.7 pg (27.0-32.0); MCHC 30.8 g/dL (32.0-37.0); Mean Platelet Volume 11.4 fL (9.5-12.2); Platelet Count 274 X 10*3/uL (140-440); RBC 4.11 X 10*6/uL (4.10-5.20); RDW 13.3 % (11.5-14.5); WBC 9.89 X 10*3/uL (4.50-10.00)
[2021-03-15 17:44] LABS: Magnesium 1.7 mg/dL (1.5-2.4); Phosphorus 4.6 mg/dL (2.4-5.1); Uric Acid 6.5 mg/dL (2.9-7.7)
[2021-03-15 17:45] LABS: % Iron Saturation 12.85 (12.00-45.00); African American GFR (CKD) 32.7 (60.0-200.0); Albumin 3.8 g/dL (3.80-4.90); Albumin/Globulin Ratio 1.52 (1.60-3.17); Anion Gap 10.1 mmol/L (4.00-12.00); BUN/Creat Ratio 17.06 Ratio (12.00-20.00); Calcium 8.8 mg/dL (8.7-10.3); Carbon Dioxide 25.9 mmol/L (21.6-31.8); Globulin 2.5 g/dL (1.6-3.3); Non-African American GFR(CKD) 28.2 (60.0-200.0); Potassium 4.3 mmol/L (3.5-5.5); Total Bilirubin 0.5 mg/dL (0.2-1.2); Total Protein 6.3 g/dL (6.2-8.2)
[2021-03-15 18:32] LABS: Ferritin 15.9 ng/mL (10.0-291.0)
[2021-03-16 05:59] LABS: Urine Creatinine 139.6 mg/dL
== END | disposition home or self-care (01) ==
LOC: LABWHC1 10:16
PROVIDERS: ATTEND Internal Medicine
DX: N18.32 Chronic kidney disease, stage 3b (principal); M10.9 Gout, unspecified; E55.9 Vitamin D deficiency, unspecified; N25.81 Secondary hyperparathyroidism of renal origin; N39.0 Urinary tract infection, site not specified; D64.9 Anemia, unspecified; R80.9 Proteinuria, unspecified
CPT/HCPCS: 36415; 80053; 81001; 82043; 82306; 82570; 82728; 83540; 83550; 83735; 83970; 84100; 84550; 85027

== ENCOUNTER 2021-04-01 14:32 | Inpatient (IN) | payer MEDICARE ==
[2021-04-01] MEDS ORDERED: ONDANSETRON 4 MG/2 ML VIAL IVP STA (15:00)
[2021-04-01] MEDS ORDERED: ALPRAZolam 0.25 MG TAB PO STA (15:01)
[2021-04-01] MEDS ORDERED: SODIUM CHLORIDE 0.9% 500 ML 500 ML IV ONE (15:01)
--- NOTE | 2021-04-01 15:09 | ED ---
General Adult HPI - General Chief complaint: Chest Pain Stated complaint: Chest pain,Med reaction Time Seen by Provider: 04/01/21 14:46 Source: patient Mode of arrival: wheelchair Limitations: no limitations - History of Present Illness Initial comments: This is a 80 yo female with h/o HTN, CHF, afib, DM, anxiety, h/o sepsis and UTI who presents to the ED for headache, nausea, vomiting, dysuria, chest tightness, and SOB. The patient states these symptoms started about 2 hours ago after she had taken a dose of Diflucan. She states she has a generalized headache, feels nauseated and has vomiting. Also states that she feels like she has swollen lips and her mouth is dry. She admits to feeling anxious as well. States she has some SOB and chest tightness but does not complain of pain. States no abdominal pain. Also admits to feeling generally weak. She is concerned this is all from the medications. She states that she has been having dysuria and vaginal itching for the last 3 days. She saw her PCP who did a ua 3 days ago. She took monistat for the last 3 days and then she was told she had an infection in her urine and was called in Diflucan today by her PCP. She took the dose and then developed the above symptoms. She admits to feeling feverish but has not taken her temp. Admits to also having increased lower back pain which is chronic from DDD. No other complaints. - Related Data Home Medications Medication Instructions Recorded Confirmed Atorvastatin [Lipitor] 80 mg PO HS 06/30/18 04/01/21 hydrALAZINE HCL [Apresoline] 100 mg PO TID 01/06/19 04/01/21 lisinopriL 40 mg PO DAILY 01/06/19 04/01/21 amLODIPine BESYLATE 10 mg PO DAILY 06/18/19 04/01/21 Insulin NPL/Insulin Lispro 20 unit SQ HS 05/30/20 04/01/21 [humaLOG MIX 75-25 VIAL] Insulin NPL/Insulin Lispro 40 unit SQ W/BRKFST 06/05/20 04/01/21 [humaLOG MIX 75-25 VIAL] Albuterol Sulfate [Proair Hfa] 2 puff INHALATION RT-Q6H PRN 07/19/20 04/01/21 Ergocalciferol [Vitamin D2] 50,000 unit PO TU 07/19/20 04/01/21 Pioglitazone [Actos] 15 mg PO DAILY 09/13/20 04/01/21 Dapagliflozin Propanediol [Farxiga] 10 mg PO DAILY 09/20/20 04/01/21 Acetaminophen [Tylenol Extra 500 - 1,000 mg PO Q8H PRN 10/14/20 04/01/21 Strength] Menthol [Biofreeze] 1 applic TOPICAL QID PRN 10/14/20 04/01/21 Carvedilol [Coreg] 6.25 mg PO BID 04/01/21 04/01/21 Ciprofloxacin HCl [Cipro] 500 mg PO BID 04/01/21 04/01/21 Ferrous Sulfate [Feosol] 325 mg PO DAILY 04/01/21 04/01/21 Fluconazole [Diflucan] 150 mg PO DAILY 04/01/21 04/01/21 Furosemide [Lasix] 20 mg PO Q48H 04/01/21 04/01/21 Gabapentin [Neurontin] 100 mg PO DAILY 04/01/21 04/01/21 Imiquimod 1 pack TOPICAL HS PRN 04/01/21 04/01/21 Sulfamethox-Tmp 800-160Mg [Bactrim 1 tab PO Q12HR 04/01/21 04/01/21 DS 800-160 mg] Previous Rx's Medication Instructions Recorded Apixaban [Eliquis] 5 mg PO BID #60 tab 07/04/18 Levothyroxine Sodium [Synthroid] 125 mcg PO DAILY #30 tab 01/08/19 Allergies Allergy/AdvReac Type Severity Reaction Status Date / Time azithromycin Allergy Rash/Hives Verified 04/01/21 15:53 [From Zithromax Z-Jeanmarie] methylprednisolone Allergy Rash/Hives Verified 04/01/21 15:53 [From Medrol] trimethoprim [From Bactrim] Allergy Rash/Hives Verified 04/01/21 15:53 hydrochlorothiazide AdvReac lost Verified 04/01/21 15:53 balance and fell sulfamethoxazole AdvReac Rash/Hives Verified 04/01/21 15:53 [From Bactrim] Review of Systems ROS Statement: Those systems with pertinent positive or pertinent negative responses have been documented in the HPI. ROS Other: All systems not noted in ROS Statement are negative. Past Medical History Past Medical History: Cancer, Pneumonia Additional Past Medical History / Comment(s): Stage III Kidney Disease, hx Pneumonia with Sepsis, no CPAP use, Vitamin D Deficiency, chronic low back pain, frequent constipation, hx skin cancer. History of Any Multi-Drug Resistant Organisms: None Reported Past Surgical History: Heart Catheterization Additional Past Surgical History / Comment(s): Cardiac caths , lap band placed/since removed, low back surgery, L carpal tunnel release X2, skin cancer removal, colonoscopies, bilateral cataract removals/lens implants. Past Anesthesia/Blood Transfusion Reactions: Previous Problems w/ Anesthesia Additional Past Anesthesia/Blood Transfusion Reaction / Comment(s): "Had too much anesthesia in 2007 for lap band removal, had to be bagged." Past Psychological History: No Psychological Hx Reported Smoking Status: Never smoker Past Alcohol Use History: None Reported Past Drug Use History: None Reported - Past Family History Sister(s) Family Medical History: Myocardial Infarction ([place]) Brother(s) Family Medical History: Cancer Additional Family Medical History / Comment(s): Colon Cancer. Mother Family Medical History: Dementia Additional Family Medical History / Comment(s): Mother of dementia at the age of 89yrs. Father Family Medical History: Cancer Additional Family Medical History / Comment(s): Pt states her father was treated for a sinus infection but really had leukemia and of this at the age of 72 yrs. General Exam - General Exam Comments Initial Comments: Constitutional: [Awake alert] Appears anxious, slightly diaphoretic Head: [Normocephalic atraumatic] Eyes: [no conjunctival injection] [No scleral icterus] [EOMI], pupils 3mm and reative b/l Neck: [No JVD] [Supple] Heart: [Regular rate rhythm] [normal S1-S2] systolic murmur Lungs: mild tachypnea, no resp distress, bibasilar rales Abdomen: [Soft] [nondistended] [nontender] Extremities: [Non edematous] [DP pulses intact] [Radial pulses intact] Neuro: [A&Ox3], CN 2-12 intact, able to stand at bedside with assist. Hold arms up equally. [No focal neurologic deficits] Psych: [anxious appearing] Limitations: no limitations Course Vital Signs 04/01/21 04/01/2121 14:37 14:46 17:20 Temperature 98.1 F Pulse Rate 88 76 Respiratory 20 21 18 Rate Blood Pressure 167/72 169/81 O2 Sat by Pulse 99 98 Oximetry - Reevaluation(s) Reevaluation #1: 04/01/21 17:[address] States she is clostrophobic. Pt improved however and states she has had these headaches associated with hyperglyemia. With no focal neuro findings I doubt any acute intracranial problem. Will give patient her home dose of insulin. 04/01/21 18:15 Reevaluation #2: 04/01/21 19:01 Pt feeling improved after insulin give. States headache improved. D-dimer normal. Will admit for CHF and hypoxia. Dr. Temple accepts EKG Findings - EKG Comments: EKG Findings:: EKG showing NSR with rate 92. Does not appear to be any acute st or t wave changes. QTC 430. Other interals normal. No ectopy. Medical Decision Making - Medical Decision Making Is a 80-year-old female presents emergency department for the above symptoms. Patient was noted to be slightly hypoxic on arrival with a ox and saturation of 89%. She does not appear to be any respiratory distress however was complaining of some shortness of breath and chest tightness. Also complained of headache and nausea and anxiety. The patient was given Zofran and Xanax initially with improvement in her symptoms. EKG did not show any acute ischemic changes. Troponin was negative. ENT also unremarkable. Chest x-ray was significant for findings consistent with heart failure with some pulmonary edema. I did attempt to get a CT of the patient's head because of the headache however she stated that she was claustrophobic and refused to have the CT performed. She states that she felt it was related to her high blood sugar. She was given her home dose of insulin see that she was feeling improved. She states that she may consider doing a CT at another time if it's necessary. The patient was started on IV Lasix and will be admitted to the hospital for further management and cardiology and pulmonology evaluation. Dr. Temple accepts the patient for admission. - Lab Data Result diagrams: 04/01/21 15:22 04/01/21 15:22 Lab Results 08/13/21 08/13/21 08/13/21 Range/Units 15:22 15:22 15:22 WBC 11.1 H (3.8-10.6) k/uL RBC 4.25 (3.80-5.40) m/uL Hgb 12.1 (11.4-16.0) gm/dL Hct 38.2 (34.0-46.0) % MCV 90.0 (80.0-100.0) fL MCH 28.6 (25.0-35.0) pg MCHC 31.8 (31.0-37.0) g/dL RDW 13.9 (11.5-15.5) % Plt Count 286 (150-450) k/uL MPV 8.4 Neutrophils % 69 % Lymphocytes % 14 % Monocytes % 9 % Eosinophils % 6 % Basophils % 1 % Neutrophils # 7.7 (1.3-7.7) k/uL Lymphocytes # 1.5 (1.0-4.8) k/uL Monocytes # 0.9 (0-1.0) k/uL Eosinophils # 0.6 (0-0.7) k/uL Basophils # 0.1 (0-0.2) k/uL Hypochromasia Slight PT 11.5 (9.0-12.0) sec INR 1.1 (<1.2) APTT 26.9 (22.0-30.0) sec D-Dimer (<0.60) mg/L FEU Sodium (137-145) mmol/L Potassium (3.5-5.1) mmol/L Chloride (98-107) mmol/L Carbon Dioxide (22-30) mmol/L Anion Gap mmol/L BUN (7-17) mg/dL Creatinine (0.52-1.04) mg/dL Est GFR (CKD-EPI)AfAm (>60 ml/min/1.73 sqM) Est GFR (CKD-EPI)NonAf (>60 ml/min/1.73 sqM) Glucose (74-99) mg/dL POC Glucose (mg/dL) (75-99) mg/dL POC Glu Employment Instructional Associate ID Plasma Lactic Acid Terry (0.7-2.0) mmol/L Calcium (8.4-10.2) mg/dL Magnesium (1.6-2.3) mg/dL Total Bilirubin (0.2-1.3) mg/dL AST (14-36) U/L ALT (4-34) U/L Alkaline Phosphatase (38-126) U/L Troponin I (0.000-0.034) ng/mL NT-Pro-B Natriuret Pep pg/mL Total Protein (6.3-8.2) g/dL Albumin (3.5-5.0) g/dL Urine Color Light Yellow Urine Appearance Clear (Clear) Urine pH 6.5 (5.0-8.0) Ur Specific [place] 1.017 (1.001-1.035) Urine Protein 1+ H (Negative) Urine Glucose (UA) 4+ H (Negative) Urine Ketones Negative (Negative) Urine Blood Negative (Negative) Urine Nitrite Negative (Negative) Urine Bilirubin Negative (Negative) Urine Urobilinogen <2.0 (<2.0) mg/dL Ur Leukocyte Esterase Negative (Negative) Urine RBC <1 (0-5) /hpf Urine WBC 1 (0-5) /hpf Ur Squamous Epith Cells 1 (0-4) /hpf Urine Bacteria Rare H (None) /hpf 04/01/21 04/01/21 04/01/21 Range/Units 15:22 15:22 15:22 WBC (3.8-10.6) k/uL RBC (3.80-5.40) m/uL Hgb (11.4-16.0) gm/dL Hct (34.0-46.0) % MCV (80.0-100.0) fL MCH (25.0-35.0) pg MCHC (31.0-37.0) g/dL RDW (11.5-15.5) % Plt Count (150-450) k/uL MPV Neutrophils % % Lymphocytes % % Monocytes % % Eosinophils % % Basophils % % Neutrophils # (1.3-7.7) k/uL Lymphocytes # (1.0-4.8) k/uL Monocytes # (0-1.0) k/uL Eosinophils # (0-0.7) k/uL Basophils # (0-0.2) k/uL Hypochromasia PT (9.0-12.0) sec INR (<1.2) APTT (22.0-30.0) sec D-Dimer (<0.60) mg/L FEU Sodium 136 L (137-145) mmol/L Potassium 4.7 (3.5-5.1) mmol/L Chloride 102 (98-107) mmol/L Carbon Dioxide 24 (22-30) mmol/L Anion Gap 10 mmol/L BUN 27 H (7-17) mg/dL Creatinine 1.39 H (0.52-1.04) mg/dL Est GFR (CKD-EPI)AfAm 42 (>60 ml/min/1.73 sqM) Est GFR (CKD-EPI)NonAf 36 (>60 ml/min/1.73 sqM) Glucose 409 H (74-99) mg/dL POC Glucose (mg/dL) (75-99) mg/dL POC Glu Employment Instructional Associate ID Plasma Lactic Acid Terry 1.8 (0.7-2.0) mmol/L Calcium 8.7 (8.4-10.2) mg/dL Magnesium 2.1 (1.6-2.3) mg/dL Total Bilirubin 0.5 (0.2-1.3) mg/dL AST 37 H (14-36) U/L ALT 23 (4-34) U/L Alkaline Phosphatase 133 H (38-126) U/L Troponin I <0.012 (0.000-0.034) ng/mL NT-Pro-B Natriuret Pep pg/mL Total Protein 6.7 (6.3-8.2) g/dL Albumin 3.9 (3.5-5.0) g/dL Urine Color Urine Appearance (Clear) Urine pH (5.0-8.0) Ur Specific [place] (1.001-1.035) Urine Protein (Negative) Urine Glucose (UA) (Negative) Urine Ketones (Negative) Urine Blood (Negative) Urine Nitrite (Negative) Urine Bilirubin (Negative) Urine Urobilinogen (<2.0) mg/dL Ur Leukocyte Esterase (Negative) Urine RBC (0-5) /hpf Urine WBC (0-5) /hpf Ur Squamous Epith Cells (0-4) /hpf Urine Bacteria (None) /hpf 04/01/21 04/01/21 04/01/21 Range/Units 15:22 15:22 15:22 WBC (3.8-10.6) k/uL RBC (3.80-5.40) m/uL Hgb (11.4-16.0) gm/dL Hct (34.0-46.0) % MCV (80.0-100.0) fL MCH (25.0-35.0) pg MCHC (31.0-37.0) g/dL RDW (11.5-15.5) % Plt Count (150-450) k/uL MPV Neutrophils % % Lymphocytes % % Monocytes % % Eosinophils % % Basophils % % Neutrophils # (1.3-7.7) k/uL Lymphocytes # (1.0-4.8) k/uL Monocytes # (0-1.0) k/uL Eosinophils # (0-0.7) k/uL Basophils # (0-0.2) k/uL Hypochromasia PT (9.0-12.0) sec INR (<1.2) APTT (22.0-30.0) sec D-Dimer 0.20 (<0.60) mg/L FEU Sodium (137-145) mmol/L Potassium (3.5-5.1) mmol/L Chloride (98-107) mmol/L Carbon Dioxide (22-30) mmol/L Anion Gap mmol/L BUN (7-17) mg/dL Creatinine (0.52-1.04) mg/dL Est GFR (CKD-EPI)AfAm (>60 ml/min/1.73 sqM) Est GFR (CKD-EPI)NonAf (>60 ml/min/1.73 sqM) Glucose (74-99) mg/dL POC Glucose (mg/dL) 447 H (75-99) mg/dL POC Glu Employment Instructional Associate ID Mag Hughes Plasma Lactic Acid Terry (0.7-2.0) mmol/L Calcium (8.4-10.2) mg/dL Magnesium (1.6-2.3) mg/dL Total Bilirubin (0.2-1.3) mg/dL AST (14-36) U/L ALT (4-34) U/L Alkaline Phosphatase (38-126) U/L Troponin I (0.000-0.034) ng/mL NT-Pro-B Natriuret Pep 782 pg/mL Total Protein (6.3-8.2) g/dL Albumin (3.5-5.0) g/dL Urine Color Urine Appearance (Clear) Urine pH (5.0-8.0) Ur Specific [place] (1.001-1.035) Urine Protein (Negative) Urine Glucose (UA) (Negative) Urine Ketones (Negative) Urine Blood (Negative) Urine Nitrite (Negative) Urine Bilirubin (Negative) Urine Urobilinogen (<2.0) mg/dL Ur Leukocyte Esterase (Negative) Urine RBC (0-5) /hpf Urine WBC (0-5) /hpf Ur Squamous Epith Cells (0-4) /hpf Urine Bacteria (None) /hpf Disposition Clinical Impression: CHF (congestive heart failure), Chest pain Disposition: ADMITTED IP TO THIS HOSP Condition: Stable Referrals: Dontae Dawn MD [Primary Care Provider] - 1-2 days
[2021-04-01 15:25] LABS: Glucose,Whole Blood 447 mg/dL (75-99)
[2021-04-01 15:47] LABS: Albumin 3.9 g/dL (3.5-5.0); Calcium 8.7 mg/dL (8.4-10.2); Magnesium 2.1 mg/dL (1.6-2.3); Potassium 4.7 mmol/L (3.5-5.1); Total Bilirubin 0.5 mg/dL (0.2-1.3); Total Protein 6.7 g/dL (6.3-8.2)
[2021-04-01 15:50] LABS: Basophils # (A) 0.1 k/uL (0-0.2); Basophils % (A) 1 %; Eosinophils # (A) 0.6 k/uL (0-0.7); Eosinophils % (A) 6 %; HCT 38.2 % (34.0-46.0); HGB 12.1 gm/dL (11.4-16.0); Hypochromasia Slight; INR 1.1 (<1.2); Lymphocytes # (A) 1.5 k/uL (1.0-4.8); Lymphocytes % (A) 14 %; MCH 28.6 pg (25.0-35.0); MCHC 31.8 g/dL (31.0-37.0); Mean Platelet Volume 8.4; Monocytes # (A) 0.9 k/uL (0-1.0); Monocytes % (A) 9 %; Neutrophils # (A) 7.7 k/uL (1.3-7.7); Neutrophils % (A) 69 %; Partial Thromboplastin Time 26.9 sec (22.0-30.0); Platelet Count 286 k/uL (150-450); Prothrombin Time 11.5 sec (9.0-12.0); RBC 4.25 m/uL (3.80-5.40); RDW 13.9 % (11.5-15.5); WBC 11.1 k/uL (3.8-10.6)
[2021-04-01 16:13] LABS: Appearance,Urine Clear (Clear); Bacteria,Urine Rare /hpf; Bilirubin,Urine Negative (Negative); Blood,Urine Negative (Negative); Color,Urine Light Yellow; Glucose,Urine (UA) 4+ (Negative); Ketones,Urine Negative (Negative); Leukocyte Esterase,Urine Negative (Negative); Nitrite,Urine Negative (Negative); PH, Urine 6.5 (5.0-8.0); Protein,Urine 1+ (Negative); RBC,Urine <1 /hpf (0-5); Specific Gravity,Urine 1.017 (1.001-1.035); Squamous Epithelial Cell,Urine 1 /hpf (0-4); Urobilinogen,Urine <2.0 mg/dL (<2.0); WBC,Urine 1 /hpf (0-5)
--- NOTE | 2021-04-01 16:46 | XR ---
EXAMINATION TYPE: XR chest 1V portable DATE OF EXAM: 04/01/2021 COMPARISON: 07/26/2020. HISTORY: Shortness of breath. TECHNIQUE: Single frontal view of the chest is obtained. FINDINGS: There is moderate interstitial edema with superimposed hazy and streaky opacities. No pleu ral effusion, or pneumothorax seen. The cardiac silhouette size is enlarged. The osseous structure s are intact. IMPRESSION: CHF.
[2021-04-01] MEDS ORDERED: INSULN ASP PRT/INSULIN ASPART 100 UNIT/ML 10 ML VIAL SQ ONE (17:34)
[2021-04-01] MEDS ORDERED: ASPIRIN 81 MG PO STA (17:40)
[2021-04-01] MEDS ORDERED: FUROSEMIDE 10 MG/ML 4 ML VIAL IV STA (17:54)
[2021-04-01] MEDS ORDERED: ONDANSETRON 4 MG/2 ML VIAL IVP PRN (18:50)
[2021-04-01] MEDS ORDERED: NALOXONE 0.4 MG/ML 1 ML VIAL IV PRN (18:50)
[2021-04-01 20:47] LABS: Glucose,Whole Blood 393 mg/dL (75-99)
[2021-04-01] MEDS ORDERED: ALBUTEROL NEBULIZED 2.5 MG/3 ML INHALATION PRN (20:59)
[2021-04-01] MEDS ORDERED: NON FORMULARY DRUG (Menthol [Biofreeze] 89 ML Gel..Ml.) TOPICAL PRN (20:59)
[2021-04-01] MEDS ORDERED: IMIQUIMOD TOPICAL PRN (20:59)
[2021-04-01] MEDS: carvediloL 6.25 MG TAB PO SCH (21:30)
[2021-04-01] MEDS: hydrALAZINE HCL 50 MG TAB PO SCH (21:30)
[2021-04-01] MEDS: APIXABAN 5 MG TAB PO SCH (21:30)
[2021-04-01] MEDS: ATORVASTATIN 80 MG TAB PO SCH (21:30)
[2021-04-01] MEDS: INSULIN ASPART (NovoLOG) 100 UNIT/ML VIAL SQ SCH ×2 (21:31)
[2021-04-02] MEDS: FUROSEMIDE 10 MG/ML 4 ML VIAL IV SCH ×4 (01:35→23:34)
[2021-04-02 06:20] LABS: Glucose,Whole Blood 204 mg/dL (75-99)
[2021-04-02] MEDS: LEVOTHYROXINE 125 MCG TAB PO SCH (06:44)
[2021-04-02] MEDS: INSULIN ASPART (NovoLOG) 100 UNIT/ML VIAL SQ SCH ×6 (06:44→20:16)
[2021-04-02] MEDS ORDERED: INSULIN ASPART (NovoLOG) 100 UNIT/ML VIAL SQ SCH (07:30)
[2021-04-02] MEDS: hydrALAZINE HCL 50 MG TAB PO SCH ×3 (08:36→20:10)
[2021-04-02] MEDS: APIXABAN 5 MG TAB PO SCH ×2 (08:36→20:09)
[2021-04-02] MEDS: lisinopriL 20 MG TAB PO SCH (08:37)
[2021-04-02] MEDS: carvediloL 6.25 MG TAB PO SCH ×2 (08:37→20:09)
[2021-04-02] MEDS: FERROUS SULFATE 325 MG TAB PO SCH (08:37)
[2021-04-02] MEDS: NON FORMULARY DRUG (Dapagliflozin Propanediol [Farxiga] 10 MG Tablet) PO SCH (08:37)
[2021-04-02] MEDS: amLODIPine 10 MG TAB PO SCH (08:37)
[2021-04-02] MEDS: GABAPENTIN 100 MG CAP PO SCH (08:37)
[2021-04-02] MEDS ORDERED: ARTIFICIAL TEARS-HYPROMELLOSE DROPS 15 ML BTL BOTH EYES PRN (10:03)
--- NOTE | 2021-04-02 10:20 | P.CNPUL ---
History of Present Illness Consult date: 04/02/21 Reason for consult: hypoxemia, obstructive sleep apnea Chief complaint: Shortness of breath and chest tightness History of present illness: This is a 80-year-old female with minimal medical problems including hypertensio n hypertensive cardiovascular disease congestive heart failure chronic atrial fibrillation and diabetes mellitus, patient came into the hospital for evaluation of multiple constitutional symptoms including nausea vomiting this year he had chest tightness and shortness of breath on these symptoms are going on for short period time for few hours she attributes to Diflucan, patient also has a extensive history of the lip disorder breathing and sleep apnea lately not using CPAP machine due to multiple issues as well as claustrophobia wants to look into his spine Review of Systems All systems: negative Past Medical History Past Medical History: Cancer, Pneumonia Additional Past Medical History / Comment(s): Stage III Kidney Disease, hx Pneumonia with Sepsis, no CPAP use, Vitamin D Deficiency, chronic low back pain, frequent constipation, hx skin cancer. History of Any Multi-Drug Resistant Organisms: None Reported Past Surgical History: Heart Catheterization Additional Past Surgical History / Comment(s): Cardiac caths , lap band placed/since removed, low back surgery, L carpal tunnel release X2, skin cancer removal, colonoscopies, bilateral cataract removals/lens implants. 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 She is independent. Smoking Status: Never smoker Past Alcohol Use History: None Reported Past Drug Use History: None Reported - Past Family History Sister(s) Family Medical History: Myocardial Infarction ([place]) Brother(s) Family Medical History: Cancer Additional Family Medical History / Comment(s): Colon Cancer. Mother Family Medical History: Dementia Additional Family Medical History / Comment(s): Mother of dementia at the age of 89yrs. Father Family Medical History: Cancer Additional Family Medical History / Comment(s): Pt states her father was treated for a sinus infection but really had leukemia and of this at the age of 72 yrs. Medications and Allergies Home Medications Medication Instructions Recorded Confirmed Type Atorvastatin [Lipitor] 80 mg PO HS 06/30/18 04/01/21 History Apixaban [Eliquis] 5 mg PO BID #60 tab 07/04/18 04/01/21 Rx hydrALAZINE HCL [Apresoline] 100 mg PO TID 01/06/19 04/01/21 History lisinopriL 40 mg PO DAILY 01/06/19 04/01/21 History Levothyroxine Sodium [Synthroid] 125 mcg PO DAILY #30 tab 01/08/19 04/01/21 Rx amLODIPine BESYLATE 10 mg PO DAILY 06/18/19 04/01/21 History Insulin NPL/Insulin Lispro 20 unit SQ HS 05/30/20 04/01/21 History [humaLOG MIX 75-25 VIAL] Insulin NPL/Insulin Lispro 40 unit SQ W/BRKFST 06/05/20 04/01/21 History [humaLOG MIX 75-25 VIAL] Albuterol Sulfate [Proair Hfa] 2 puff INHALATION RT-Q6H PRN 07/19/20 04/01/21 History Ergocalciferol [Vitamin D2] 50,000 unit PO TU 07/19/20 04/01/21 History Pioglitazone [Actos] 15 mg PO DAILY 09/13/20 04/01/21 History Dapagliflozin Propanediol [Farxiga] 10 mg PO DAILY 09/20/20 04/01/21 History Acetaminophen [Tylenol Extra 500 - 1,000 mg PO Q8H PRN 10/14/20 04/01/21 History Strength] Menthol [Biofreeze] 1 applic TOPICAL QID PRN 10/14/20 04/01/21 History Carvedilol [Coreg] 6.25 mg PO BID 04/01/21 04/01/21 History Ciprofloxacin HCl [Cipro] 500 mg PO BID 04/01/21 04/01/21 History Ferrous Sulfate [Feosol] 325 mg PO DAILY 04/01/21 04/01/21 History Fluconazole [Diflucan] 150 mg PO DAILY 04/01/21 04/01/21 History Furosemide [Lasix] 20 mg PO Q48H 04/01/21 04/01/21 History Gabapentin [Neurontin] 100 mg PO DAILY 04/01/21 04/01/21 History Imiquimod 1 pack TOPICAL HS PRN 04/01/21 04/01/21 History Sulfamethox-Tmp 800-160Mg [Bactrim 1 tab PO Q12HR 04/01/21 04/01/21 History DS 800-160 mg] Allergies Allergy/AdvReac Type Severity Reaction Status Date / Time azithromycin Allergy Rash/Hives Verified 04/01/21 15:53 [From Zithromax Z-Jeanmarie] methylprednisolone Allergy Rash/Hives Verified 04/01/21 15:53 [From Medrol] trimethoprim [From Bactrim] Allergy Rash/Hives Verified 04/01/21 15:53 hydrochlorothiazide AdvReac lost Verified 04/01/21 15:53 balance and fell sulfamethoxazole AdvReac Rash/Hives Verified 04/01/21 15:53 [From Bactrim] Physical Exam Vitals: Vital Signs Temp Pulse Pulse Resp BP BP Pulse Ox 04/02/21 08:00 98 F 68 18 130/61 93 L 04/02/21 04:00 97.8 F 58 L 18 122/63 99 04/02/21 02:00 63 18 04/02/21 00:00 63 18 125/58 97 04/01/21 20:00 97.8 F 64 18 173/61 98 04/01/21 19:28 17 04/01/21 17:20 76 18 169/81 98 04/01/21 14:46 21 04/01/21 14:37 98.1 F 88 20 167/72 99 Intake and Output 04/01/21 04/02/21 04/02/21 22:59 06:59 14:59 Other: Voiding Method Toilet # Voids 1 Weight 100.698 kg 100.4 kg - Constitutional General appearance: no acute distress, obese - EENT Eyes: PERRLA Ears: bilateral: normal - Neck Neck: normal ROM Carotids: bilateral: upstroke normal Thyroid: right: enlarged - Respiratory Respiratory: bilateral: CTA - Cardiovascular Rhythm: regular Heart sounds: normal: S1, S2 - Gastrointestinal General gastrointestinal: normal bowel sounds - Integumentary Integumentary: normal turgor - Neurologic Neurologic: CNII-XII intact - Musculoskeletal Musculoskeletal: gait normal, generalized weakness - Psychiatric Psychiatric: A&O x's 3, appropriate affect, intact judgment & insight Results - Laboratory Findings CBC and BMP: 04/01/21 15:22 04/01/21 15:22 PT/INR, D-dimer PT 11.5 sec (9.0-12.0) 04/01/21 15: INR 1.1 (<1.2) 04/01/21 15:22 D-Dimer 0.20 mg/L FEU (<0.60) 04/01/21 15:22 Abnormal lab findings: Abnormal Labs 04/01/21 04/01/21 04/01/21 15:22 15:22 15:22 WBC 11.1 H Sodium 136 L BUN 27 H Creatinine 1.39 H Glucose 409 H POC Glucose (mg/dL) AST 37 H Alkaline Phosphatase 133 H Urine Protein 1+ H Urine Glucose (UA) 4+ H Urine Bacteria Rare H 04/01/21 04/01/21 04/02/21 15:22 20:46 06:16 WBC Sodium BUN Creatinine Glucose POC Glucose (mg/dL) 447 H 393 H 204 H AST Alkaline Phosphatase Urine Protein Urine Glucose (UA) Urine Bacteria - Diagnostic Findings Chest x-ray: report reviewed, image reviewed Assessment and Plan Assessment: Sleep disorder breathing and sleep apnea Noncompliance with CPAP machine Congestive heart failure Morbid obesity Baseline COPD not in next Plan: Overall plan is to continue supportive care follow clinical course closely patient wanted to look into the inspiratory she will evaluate her outpatient basis, but however patient will require baseline sleep study with further recommendations pending. Time with Patient: Greater than 30
--- NOTE | 2021-04-02 10:46 | XR ---
EXAMINATION TYPE: XR abdomen 2V DATE OF EXAM: 04/02/2021 CLINICAL DATA: 80-year-old female distention and pain, [facility] COMPARISON: 06/18/2019 FINDINGS: No evidence for free intraperitoneal air. Cholecystectomy clips. Some additional surgical material below the GE junction. Mild stool in the lef t side of the abdomen. Relative possibility of small bowel air. No dilated small bowel or air-fluid l evels are seen. Stable phlebolith in the right side of the pelvis. L4-S1 posterior fusion with laminectomies. IMPRESSION: Nonspecific, but overall nonobstructive bowel gas pattern. No free air.
--- NOTE | 2021-04-02 10:49 | P.HPIM ---
History of Present Illness H&P Date: 04/02/21 HISTORY OF PRESENT ILLNESS This is a 80-year-old female patient of Dr. Dawn/Henri Mejía NP and Dr. 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 Amaya May 03 to be established for pain management. Echocardiogram in May 2020 revealed EF of 55-60 %, severe concentric left hypertrophy, LA is severely dilated greater than 40 ML's per M2, mild aortic regurgitation, moderate aortic stenosis, mild to moderate mitral regurgitation, mild to moderate tricuspid regurgitation, mild pulmonary hypertension. Patient gives history that she was briefly started on first see gone then developed a vaginal yeast infection. She took 1 pill of Diflucan and within 1 hour she had generalized headache nausea and vomiting as well as chest tightness and shortness of breath. Denies abdominal pain. Patient was also started recently on Cipro and Bactrim for urinary tract infecti on. She apparently was at the store and she was told to come in the hospital immediately for chest pain. Patient also complains of Constipation. Patient presented to [facility] emergency center for evaluation. She is found to be afebrile, heart rate in the 70s and 80s, blood pressure 167/72, pulse ox 99% on room air. EKG is a sinus rhythm with left axis deviation WBC 11.1, Hemoccult and 12.1, platelet count 286, sodium 136, potassium 4.7, chloride 102, CO2 24, BUN 27 creatinine 1.39. Blood sugar 409. INR 1.1. Urinalysis clear with nitrate and leukoesterase negative. Lactic acid 1.8. Magnesium 2.1. Total bilirubin 0.5, AST 37, ALT 23, alkaline phosphatase 133. Chest x-ray reveals CHF. Patient was admitted to the cardiac stepdown unit and consult requested with cardiology and pulmonary medicine, patient started on IV Lasix. REVIEW OF SYSTEMS Constitutional: No fever, no chills, no night sweats. No weight change. No weakness, fatigue or lethargy. No daytime sleepiness. EENT: Reported headache. No blurred vision or double vision, no loss of vision. No loss of Hearing, no ringing in the ears, no dizziness. No nasal drainage or congestion. No epistaxis. No sore throat. Lungs: Reported shortness of breath, no cough, no sputum production. No wheezing. Cardiovascular: Reported chest pain, positive lower extremity edema. No palpitations. No paroxysmal nocturnal dyspnea. No orthopnea. No lightheadedness or dizziness. No syncopal episodes. Abdominal: No abdominal pain. No nausea, vomiting. No diarrhea. No constip ation. No bloody or tarry stools.. No loss of appetite. Genitourinary: Reported dysuria, no increased frequency, no urgency. No urinary retention. Musculoskeletal: No myalgias. No muscle weakness, no gait dysfunction, no frequent falls. No back pain. No neck pain. Integumentary: No wounds, no lesions. No rash or pruritus. No unusual bruising. No change in hair or nails. Neurologic: No aphasia. No facial droop. No change in mentation. No head injury. No headache. No paralysis. No paresthesia. Psychiatric: No depression. No anxiety. No mood swings. Endocrine: Noted abnormal blood sugars. No weight change. SOCIAL HISTORY Patient is a lifelong nonsmoker but had secondhand smoke exposure with her , no marijuana use, alcohol use, illicit drug use. FAMILY HISTORY Mother at age 90 from CVA with history of Alzheimer's dementia and hypertension. Father at age 72 from leukemia. Patient has one sister that of a brain cancer. Patient has 2 brothers and one has severe diabetes and valvular heart disease. One brother has passed from alcohol and drug related issues. Patient has 2 sons and 2 daughters with no major medical problems. PHYSICAL EXAMINATION Gen: This is a 80-year-old female, obese, patient is sitting on the edge of the bed and appears to be comfortable and in no acute distress. Significant other at the bedside. HEENT: Head is atraumatic, normocephalic. Pupils equal, round. Sclerae is anicteric. NECK: Supple. No JVD. No lymphadenopathy. No thyromegaly. LUNGS: Slightly diminished to bases but otherwise clear to auscultation. No wheezes or rhonchi. No intercostal retractions. HEART: Regular rate and rhythm. 3/6 systolic murmur. ABDOMEN: Soft. Bowel sounds are present. No masses. No tenderness. EXTREMITIES: 1+ bilateral pedal edema. No calf tenderness. Dorsalis pedis +2 bilaterally. NEUROLOGICAL: Patient is awake, alert and oriented x3. Cranial nerves 2 through 12 are grossly intact. ASSESSMENT AND PLAN 1. Acute on chronic diastolic heart failure. Continue Lasix 40 mg IV every 8 hours, monitor I&O and daily weights, monitor renal function and electrolytes, consults with pulmonary medicine and cardiology, echocardiogram, repeat chest x- ray in the morning. 2. Chest pain with negative troponins, cardiology consult. 3. Diabetes mellitus type 2 uncontrolled with hyperglycemia. Continue Farxiga, Actos 15 mg daily, NovoLog mix 7030 20 units once given in the emergency center, continue NovoLog scale, NovoLog 20 units at bedtime, 40 units with breakfast. Obtain A1c. 4. Constipation. Patient started on MiraLAX to 17 g daily. 5. Paroxysmal atrial fibrillation continue eliquis 5 mg twice daily, Coreg 6.25 mg twice daily. 6. Hypertension hypertensive cardiovascular disease. Continue amlodipine 10 mg daily, Coreg 6.25 mg twice daily, hydralazine 100 mg 3 times daily, lisinopril 40 mg daily. 7. Hypothyroidism. Continue levothyroxine 125 g daily. Obtain TSH and free T4. 8. Diabetic neuropathy. Continue gabapentin 100 mg daily. 9. 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 Continue albuterol nebulizer every 6 hours as needed. 10. Chronic kidney disease stage III. Avoid nephrotoxic agents, monitor kidney function. 11. Obstructive sleep apnea unable to tolerate CPAP. Patient will need to reestablish with pulmonary medicine and outpatient follow-up for sleep study. 12. Degenerative disc disease with chronic pain. Patient has been referred to pain management with her first appointment on May [address] Amaya. 13. Hyperlipidemia. Continue Lipitor 80 mg at bedtime. 14. Chronic anemia. Continue ferrous sulfate 325 mg daily. 15. Recent treatment for UTI and vaginal yeast infection, stable. 16. GI prophylaxis. Protonix. 17. DVT prophylaxis. Eliquis. Patient will be admitted to the hospital for a minimum of 2 night stay. DISCHARGE PLAN Home Impression and plan of care have been directed as dictated by the signing physician. Bria Muhammad nurse practitioner acting as scribe for signing physician. Past Medical History Past Medical History: Cancer, Pneumonia Additional Past Medical History / Comment(s): Stage III Kidney Disease, hx Pneumonia with Sepsis, no CPAP use, Vitamin D Deficiency, chronic low back pain, frequent constipation, hx skin cancer. History of Any Multi-Drug Resistant Organisms: None Reported Past Surgical History: Heart Catheterization Additional Past Surgical History / Comment(s): Cardiac caths , lap band placed/since removed, low back surgery, L carpal tunnel release X2, skin cancer removal, colonoscopies, bilateral cataract removals/lens implants. 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 She is independent. Smoking Status: Never smoker Past Alcohol Use History: None Reported Past Drug Use History: None Reported - Past Family History Sister(s) Family Medical History: Myocardial Infarction ([place]) Brother(s) Family Medical History: Cancer Additional Family Medical History / Comment(s): Colon Cancer. Mother Family Medical History: Dementia Additional Family Medical History / Comment(s): Mother of dementia at the age of 89yrs. Father Family Medical History: Cancer Additional Family Medical History / Comment(s): Pt states her father was treated for a sinus infection but really had leukemia and of this at the age of 72 yrs. Medications and Allergies Home Medications Medication Instructions Recorded Confirmed Type Atorvastatin [Lipitor] 80 mg PO HS 06/30/18 04/01/21 History Apixaban [Eliquis] 5 mg PO BID #60 tab 07/04/18 04/01/21 Rx hydrALAZINE HCL [Apresoline] 100 mg PO TID 01/06/19 04/01/21 History lisinopriL 40 mg PO DAILY 01/06/19 04/01/21 History Levothyroxine Sodium [Synthroid] 125 mcg PO DAILY #30 tab 01/08/19 04/01/21 Rx amLODIPine BESYLATE 10 mg PO DAILY 06/18/19 04/01/21 History Insulin NPL/Insulin Lispro 20 unit SQ HS 05/30/20 04/01/21 History [humaLOG MIX 75-25 VIAL] Insulin NPL/Insulin Lispro 40 unit SQ W/BRKFST 06/05/20 04/01/21 History [humaLOG MIX 75-25 VIAL] Albuterol Sulfate [Proair Hfa] 2 puff INHALATION RT-Q6H PRN 07/19/20 04/01/21 History Ergocalciferol [Vitamin D2] 50,000 unit PO TU 07/19/20 04/01/21 History Pioglitazone [Actos] 15 mg PO DAILY 09/13/20 04/01/21 History Dapagliflozin Propanediol [Farxiga] 10 mg PO DAILY 09/20/20 04/01/21 History Acetaminophen [Tylenol Extra 500 - 1,000 mg PO Q8H PRN 10/14/20 04/01/21 History Strength] Menthol [Biofreeze] 1 applic TOPICAL QID PRN 10/14/20 04/01/21 History Carvedilol [Coreg] 6.25 mg PO BID 04/01/21 04/01/21 History Ciprofloxacin HCl [Cipro] 500 mg PO BID 04/01/21 04/01/21 History Ferrous Sulfate [Feosol] 325 mg PO DAILY 04/01/21 04/01/21 History Fluconazole [Diflucan] 150 mg PO DAILY 04/01/21 04/01/21 History Furosemide [Lasix] 20 mg PO Q48H 04/01/21 04/01/21 History Gabapentin [Neurontin] 100 mg PO DAILY 04/01/21 04/01/21 History Imiquimod 1 pack TOPICAL HS PRN 04/01/21 04/01/21 History Sulfamethox-Tmp 800-160Mg [Bactrim 1 tab PO Q12HR 04/01/21 04/01/21 History DS 800-160 mg] Allergies Allergy/AdvReac Type Severity Reaction Status Date / Time azithromycin Allergy Rash/Hives Verified 04/01/21 15:53 [From Zithromax Z-Jeanmarie] methylprednisolone Allergy Rash/Hives Verified 04/01/21 15:53 [From Medrol] trimethoprim [From Bactrim] Allergy Rash/Hives Verified 04/01/21 15:53 hydrochlorothiazide AdvReac lost Verified 04/01/21 15:53 balance and fell sulfamethoxazole AdvReac Rash/Hives Verified 04/01/21 15:53 [From Bactrim] Physical Exam Vitals: Vital Signs Temp Pulse Pulse Resp BP BP Pulse Ox 04/02/21 08:00 98 F 68 18 130/61 93 L 04/02/21 04:00 97.8 F 58 L 18 122/63 99 04/02/21 02:00 63 18 04/02/21 00:00 63 18 125/58 97 04/01/21 20:00 97.8 F 64 18 173/61 98 04/01/21 19:28 17 04/01/21 17:20 76 18 169/81 98 04/01/21 14:46 21 04/01/21 14:37 98.1 F 88 20 167/72 99 Intake and Output 04/01/21 04/02/21 04/02/21 22:59 06:59 14:59 Other: Voiding Method Toilet # Voids 1 Weight 100.698 kg 100.4 kg Results CBC & Chem 7: 04/01/21 15:22 04/01/21 15:22 Labs: Abnormal Lab Results - Last 24 Hours (Table) 04/01/21 04/01/21 04/01/21 Range/Units 15:22 15:22 15:22 WBC 11.1 H (3.8-10.6) k/uL Sodium 136 L (137-145) mmol/L BUN 27 H (7-17) mg/dL Creatinine 1.39 H (0.52-1.04) mg/dL Glucose 409 H (74-99) mg/dL POC Glucose (mg/dL) (75-99) mg/dL AST 37 H (14-36) U/L Alkaline Phosphatase 133 H (38-126) U/L Urine Protein 1+ H (Negative) Urine Glucose (UA) 4+ H (Negative) Urine Bacteria Rare H (None) /hpf 04/01/21 04/01/21 04/02/21 Range/Units 15:22 20:46 06:16 WBC (3.8-10.6) k/uL Sodium (137-145) mmol/L BUN (7-17) mg/dL Creatinine (0.52-1.04) mg/dL Glucose (74-99) mg/dL POC Glucose (mg/dL) 447 H 393 H 204 H (75-99) mg/dL AST (14-36) U/L Alkaline Phosphatase (38-126) U/L Urine Protein (Negative) Urine Glucose (UA) (Negative) Urine Bacteria (None) /hpf
[2021-04-02 11:49] LABS: Glucose,Whole Blood 113 mg/dL (75-99)
[2021-04-02] MEDS: polyethylene glycoL 3350 17 GM POWD.PACK PO SCH (12:13)
[2021-04-02] MEDS: PIOGLITAZONE 15 MG TAB PO SCH (12:14)
[2021-04-02 15:28] LABS: Hemoglobin A1C 10.5 % (4.0-6.0)
[2021-04-02 16:37] LABS: Glucose,Whole Blood 155 mg/dL (75-99)
--- NOTE | 2021-04-02 18:13 | P.CRDCN ---
History of Present Illness History of present illness: HISTORY OF PRESENTING ILLNESS Patient is a pleasant 80-year-old female with history of paroxysmal atrial fibrillation, hypertension, hyperlipidemia, COPD, diabetes mellitus type 2, hypothyroidism, prior CVA, chronic kidney disease, nonobstructive coronary artery disease by prior heart catheterization 2014, obstructive sleep apnea, diastolic heart failure with ejection fraction 55-60% and moderate aortic stenosis. Patient normally follows with Dr. Hernandez. She states she had been in her usual health however had a vaginal yeast infection and therefore was placed on fluconazole. She states she took the tablet and then approximately 20 minutes later started feeling short of breath with some associated chest tightness. She states she cannot catch her breath and therefore went to [facility] and was going to buy some Benadryl however pharmacist told her to come to emergency department. She was thinking she was having a ALLERGIC reaction and states her lips were feeling swollen however mainly when she gets emergency department she did much better after IV diuresis. She admits that her chlorine cells operator took her off of daily Lasix and place her on every other day and that her Lasix is not giving the usual amount of urine output. She has normally been 190 pounds and is currently up in the 220. She does admit to mild lower extremity edema and fairly chronic orthopnea, 2 pillows. In retrospect she does have some dyspnea on exertion however does not do much activity. Blood work shows white blood cell count 11.1, hemoglobin 12.1, platelets 286, d- dimer 0.2, sodium 136, BUN 27, creatinine 1.39, glucose 409, AST 37, ALTs 23, troponin less than 0.012, 0.017, 0.024, proBNP 782. EKG shows normal sinus rhythm, left axis deviation, nonspecific ST, T-wave abnormalities. Chest x-ray was concerning for congestive heart failure. REVIEW OF SYSTEMS At the time of my exam: CONSTITUTIONAL: Denies fever or chills. CARDIOVASCULAR: +chest pain, +shortness of breath, +orthopnea, no PND or palpitations. RESPIRATORY: Denies cough. GASTROINTESTINAL: Denies abdominal pain, diarrhea, constipation, nausea or vomiting. MUSCULOSKELETAL: Denies myalgias. NEUROLOGIC: Denies numbness, tingling or weakness. ENDOCRINE: Denies fatigue, polydipsia or polyurina. GENITOURINARY: Denies burning, hematuria or urgency with micturation. HEMATOLOGIC: Denies history of anemia or bleeding. PHYSICAL EXAMINATION Vital signs reviewed. CONSTITUTIONAL: No apparent distress, obese HEENT: Head is normocephalic. Pupils are equal, round. Sclerae anicteric. Mucous membranes of the mouth are moist. No JVD. No carotid bruit. CHEST EXAMINATION: Bilateral crackles at bases HEART EXAMINATION: Regular rate and rhythm. S1, S2 heard. +3/6 SE murmur, no gallops or rub. ABDOMEN: Soft, nontender. Positive bowel sounds. EXTREMITIES: 2+ peripheral pulses, 1+ lower extremity edema and no calf tenderness. NEUROLOGIC EXAMINATION: Patient is awake, alert and oriented x3. ASSESSMENT 1. Acute on chronic diastolic heart failure 2. Paroxysmal atrial fibrillation, currently normal sinus rhythm 3. COPD 4. Hypertension 5. Hyperlipidemia 6. Nonobstructive coronary artery disease by prior heart catheterization 2014 7. Obstructive sleep apnea 8. Chest tightness, likely related to congestive heart failure 9. Chronic kidney disease 10. Questionable ALLERGIC reaction to flucanazole 11. Uncontrolled diabetes mellitus type 2 12. Moderate by prior echo 05/2020 PLAN Patient with recent approximate 30 pound weight gain over the last month and admits this may have been somewhat from changing Lasix to every other day. She has not been having much urine output with the Lasix at home. She appears v olume overloaded on exam with crackles. Check 2-D echo to evaluate if there is been any progression of aortic stenosis. Previously moderate aortic stenosis prior echo. Continue with IV diuresis. Monitor kidney function. Further recommendations to follow. Past Medical History Past Medical History: Cancer, Pneumonia Additional Past Medical History / Comment(s): Stage III Kidney Disease, hx Pneumonia with Sepsis, no CPAP use, Vitamin D Deficiency, chronic low back pain, frequent constipation, hx skin cancer. History of Any Multi-Drug Resistant Organisms: None Reported Past Surgical History: Heart Catheterization Additional Past Surgical History / Comment(s): Cardiac caths , lap band placed/since removed, low back surgery, L carpal tunnel release X2, skin cancer removal, colonoscopies, bilateral cataract removals/lens implants. 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 She is independent. Smoking Status: Never smoker Past Alcohol Use History: None Reported Past Drug Use History: None Reported - Past Family History Sister(s) Family Medical History: Myocardial Infarction (AR) Brother(s) Family Medical History: Cancer Additional Family Medical History / Comment(s): Colon Cancer. Mother Family Medical History: Dementia Additional Family Medical History / Comment(s): Mother of dementia at the age of 89yrs. Father Family Medical History: Cancer Additional Family Medical History / Comment(s): Pt states her father was treated for a sinus infection but really had leukemia and of this at the age of 72 yrs. Medications and Allergies Home Medications Medication Instructions Recorded Confirmed Type Atorvastatin [Lipitor] 80 mg PO HS 06/30/18 04/01/21 History Apixaban [Eliquis] 5 mg PO BID #60 tab 07/04/18 04/01/21 Rx hydrALAZINE HCL [Apresoline] 100 mg PO TID 01/06/19 04/01/21 History lisinopriL 40 mg PO DAILY 01/06/19 04/01/21 History Levothyroxine Sodium [Synthroid] 125 mcg PO DAILY #30 tab 01/08/19 04/01/21 Rx amLODIPine BESYLATE 10 mg PO DAILY 06/18/19 04/01/21 History Insulin NPL/Insulin Lispro 20 unit SQ HS 05/30/20 04/01/21 History [humaLOG MIX 75-25 VIAL] Insulin NPL/Insulin Lispro 40 unit SQ W/BRKFST 06/05/20 04/01/21 History [humaLOG MIX 75-25 VIAL] Albuterol Sulfate [Proair Hfa] 2 puff INHALATION RT-Q6H PRN 07/19/20 04/01/21 History Ergocalciferol [Vitamin D2] 50,000 unit PO TU 07/19/20 04/01/21 History Pioglitazone [Actos] 15 mg PO DAILY 09/13/20 04/01/21 History Dapagliflozin Propanediol [Farxiga] 10 mg PO DAILY 09/20/20 04/01/21 History Acetaminophen [Tylenol Extra 500 - 1,000 mg PO Q8H PRN 10/14/20 04/01/21 History Strength] Menthol [Biofreeze] 1 applic TOPICAL QID PRN 10/14/20 04/01/21 History Carvedilol [Coreg] 6.25 mg PO BID 04/01/21 04/01/21 History Ciprofloxacin HCl [Cipro] 500 mg PO BID 04/01/21 04/01/21 History Ferrous Sulfate [Feosol] 325 mg PO DAILY 04/01/21 04/01/21 History Fluconazole [Diflucan] 150 mg PO DAILY 04/01/21 04/01/21 History Furosemide [Lasix] 20 mg PO Q48H 04/01/21 04/01/21 History Gabapentin [Neurontin] 100 mg PO DAILY 04/01/21 04/01/21 History Imiquimod 1 pack TOPICAL HS PRN 04/01/21 04/01/21 History Sulfamethox-Tmp 800-160Mg [Bactrim 1 tab PO Q12HR 04/01/21 04/01/21 History DS 800-160 mg] Allergies Allergy/AdvReac Type Severity Reaction Status Date / Time azithromycin Allergy Rash/Hives Verified 04/01/21 15:53 [From Zithromax Z-Jeanmarie] methylprednisolone Allergy Rash/Hives Verified 04/01/21 15:53 [From Medrol] trimethoprim [From Bactrim] Allergy Rash/Hives Verified 04/01/21 15:53 hydrochlorothiazide AdvReac lost Verified 04/01/21 15:53 balance and fell sulfamethoxazole AdvReac Rash/Hives Verified 04/01/21 15:53 [From Bactrim] Physical Exam Vitals: Vital Signs Temp Pulse Resp BP Pulse Ox 04/02/21 15:34 98 F 75 18 144/65 95 04/02/21 14:00 18 04/02/21 12:00 97.9 F 59 L 18 133/66 97 04/02/21 08:00 98 F 68 18 130/61 93 L 04/02/21 04:00 97.8 F 58 L 18 122/63 99 04/02/21 02:00 63 18 04/02/21 00:00 63 18 125/58 97 04/01/21 20:00 97.8 F 64 18 173/61 98 04/01/21 19:28 17 Intake and Output 04/02/21 04/02/21 04/02/21 06:59 14:59 22:59 Other: Voiding Method Toilet # Voids 1 Weight 100.4 kg Results 04/01/21 15:22 04/01/21 15:22 Cardiac Enzymes 04/01/21 04/02/21 Range/Units 21:35 00:28 Troponin I 0.017 0.024 (0.000-0.034) ng/mL Current Medications Generic Name Dose Route Start Last Admin Trade Name Freq PRN Reason Stop Dose Admin Acetaminophen 500 - 1,000 mg 04/01/21 20:59 Acetaminophen Tab 500 Mg Tab PO Q8H PRN Pain Albuterol Sulfate 2.5 mg 04/01/21 20:59 Albuterol Nebulized 2.5 Mg/3 Ml INHALATION RT-Q6H PRN Dyspnea Amlodipine Besylate 10 mg 04/02/21 09:00 04/02/21 08:37 Amlodipine 10 Mg Tab PO 10 mg DAILY BAYRON Administration Apixaban 5 mg 04/01/21 21:00 04/02/21 08:36 Apixaban 5 Mg Tab PO 5 mg BID BAYRON Administration Protocol Artificial Tears 1 drops 04/02/21 10:03 04/02/21 12:13 Artificial Tears-Hypromellose Drops 15 Ml Btl BOTH EYES 1 drops QID PRN Administration Dry Eye(s) Atorvastatin Calcium 80 mg 04/01/21 21:00 04/01/21 21:30 Atorvastatin 80 Mg Tab PO 80 mg HS B[facility]RON Administration Carvedilol 6.25 mg 04/01/21 21:00 04/02/21 08:37 Carvedilol 6.25 Mg Tab PO 6.25 mg BID B[facility]RON Administration Ergocalciferol 50,000 mcg 04/05/21 09:00 Ergocalciferol 1,250 Mcg (50,000 Iu) Capsule PO TU [facility] Ferrous Sulfate 325 mg 04/02/21 09:00 04/02/21 08:37 Ferrous Sulfate 325 Mg Tab PO 325 mg DAILY B[facility] Administration Furosemide 40 mg 04/02/21 00:00 04/02/21 17:29 Furosemide 10 Mg/Ml 4 Ml Vial IV 40 mg Q8HR B[facility]RON Administration Gabapentin 100 mg 04/02/21 09:00 04/02/21 08:37 Gabapentin 100 Mg Cap PO 100 mg DAILY B[facility] Administration Hydralazine HCl 100 mg 04/01/21 22:00 04/02/21 17:29 Hydralazine Hcl 50 Mg Tab PO 100 mg TID B[facility]RON Administration Insulin Aspart 20 unit 04/01/21 21:00 04/01/21 21:31 Insulin Aspart (Novolog) 100 Unit/Ml Vial SQ Not Given HS B[facility] Insulin Aspart 40 unit 04/02/21 07:30 04/02/21 08:38 Insulin Aspart (Novolog) 100 Unit/Ml Vial SQ 30 unit W/BRKFST B[facility] Administration Insulin Aspart 0 unit 04/01/21 21:30 04/02/21 17:30 Insulin Aspart (Novolog) 100 Unit/Ml Vial SQ 2 unit ACHS [facility] Administration Protocol Levothyroxine Sodium 125 mcg 04/02/21 06:30 04/02/21 06:44 Levothyroxine 125 Mcg Tab PO 125 mcg DAILY@0630 [facility] Administration Lisinopril 40 mg 04/02/21 09:00 04/02/21 08:37 Lisinopril 20 Mg Tab PO 40 mg DAILY [facility] Administration Naloxone HCl 0.2 mg 04/01/21 18:50 Naloxone 0.4 Mg/Ml 1 Ml Vial IV Q2M PRN Opioid Reversal Non-Formulary Medication 10 mg 04/02/21 09:00 04/02/21 08:37 Dapagliflozin Propanediol [Farxiga] PO Not Given DAILY [facility] Non-Formulary Medication 1 pack 04/01/21 20:59 Imiquimod [Imiquimod] TOPICAL HS PRN NOSE X3 WEEKS Ondansetron HCl 4 mg 04/01/21 18:50 Ondansetron 4 Mg/2 Ml Vial IVP Q8HR PRN Nausea And Vomiting Pantoprazole Sodium 40 mg 04/03/21 07:30 Pantoprazole 40 Mg Tablet PO AC-BRKFST B[facility] Pioglitazone HCl 15 mg 04/02/21 10:45 04/02/21 12:14 Pioglitazone 15 Mg Tab PO 15 mg DAILY B[facility] Administration Polyethylene Glycol 17 gm 04/02/21 09:45 04/02/21 12:13 Polyethylene Glycol 3350 17 Gm Powd.Pack PO 17 gm DAILY B[facility]RON Administration Intake and Output 04/02/21 04/02/21 04/02/21 06:59 14:59 22:59 Other: Voiding Method Toilet # Voids 1 Weight 100.4 kg 04/01/21 15:22 08/13/21 15:22
[2021-04-02 20:03] LABS: Glucose,Whole Blood 254 mg/dL (75-99)
[2021-04-02] MEDS: ATORVASTATIN 80 MG TAB PO SCH (20:09)
[2021-04-03 06:14] LABS: Glucose,Whole Blood 209 mg/dL (75-99)
[2021-04-03] MEDS: INSULIN ASPART (NovoLOG) 100 UNIT/ML VIAL SQ SCH ×6 (06:33→21:08)
[2021-04-03] MEDS: PANTOPRAZOLE 40 MG TABLET PO SCH (06:41)
[2021-04-03] MEDS: LEVOTHYROXINE 125 MCG TAB PO SCH (06:41)
[2021-04-03] MEDS: NON FORMULARY DRUG (Dapagliflozin Propanediol [Farxiga] 10 MG Tablet) PO SCH (08:38)
[2021-04-03] MEDS: lisinopriL 20 MG TAB PO SCH (08:51)
[2021-04-03] MEDS: carvediloL 6.25 MG TAB PO SCH ×2 (08:51→21:06)
[2021-04-03] MEDS: APIXABAN 5 MG TAB PO SCH ×2 (08:51→21:06)
[2021-04-03] MEDS: PIOGLITAZONE 15 MG TAB PO SCH (08:51)
[2021-04-03] MEDS: FUROSEMIDE 10 MG/ML 4 ML VIAL IV SCH ×2 (08:51→21:08)
[2021-04-03] MEDS: amLODIPine 10 MG TAB PO SCH (08:51)
[2021-04-03] MEDS: polyethylene glycoL 3350 17 GM POWD.PACK PO SCH (08:51)
[2021-04-03] MEDS: hydrALAZINE HCL 50 MG TAB PO SCH ×3 (08:51→21:05)
[2021-04-03] MEDS: GABAPENTIN 100 MG CAP PO SCH (08:51)
[2021-04-03] MEDS: FERROUS SULFATE 325 MG TAB PO SCH (08:51)
--- NOTE | 2021-04-03 08:51 | P.PN ---
Subjective Progress Note Date: 04/03/21 Principal diagnosis: Sleep disorder breathing and sleep apnea Noncompliance with CPAP machine Sleep disorder breathing and sleep apnea Noncompliance with CPAP machine Congestive heart failure likely acute on chronic diastolic heart failure Paroxysmal atrial fibrillation Hypertension hypertensive cardiovascular disease Chronic kidney disease Morbid obesity Baseline COPD not in next 04/03/2021, patient seen eval examined during the rounds resting comfortably denies any chest pain intermittent cough is present, respiratory status significantly improved compared to prior exam, patient is afebrile, oxygen saturation stable, on room air 94%, chest x-ray performed today are clear failed to reveal significant infiltrate, some interstitial edema more of a suggestion o f CHF present This is a 80-year-old female with minimal medical problems including hypertension hypertensive cardiovascular disease congestive heart failure chronic atrial fibrillation and diabetes mellitus, patient came into the hospital for evaluation of multiple constitutional symptoms including nausea vomiting this year he had chest tightness and shortness of breath on these symptoms are going on for short period time for few hours she attributes to Diflucan, patient also has a extensive history of the lip disorder breathing and sleep apnea lately not using CPAP machine due to multiple issues as well as claustrophobia wants to look into his spine Objective - Vital Signs Vital signs: Vital Signs Temp 97.8 F 04/02/21 20:00 Pulse 67 04/03/21 04:00 Resp 18 04/03/21 07:15 BP 123/68 04/03/21 04:00 Pulse Ox 94 L 04/03/21 04:00 Intake & Output 04/02/21 04/03/21 04/03/21 18:59 06:59 18:59 Weight 99.5 kg Other: Voiding Method Toilet # Voids 1 - Exam - Constitutional General appearance: no acute distress, obese - EENT Eyes: PERRLA Ears: bilateral: normal - Neck Neck: normal ROM Carotids: bilateral: upstroke normal Thyroid: right: enlarged - Respiratory Respiratory: bilateral: CTA - Cardiovascular Rhythm: regular Heart sounds: normal: S1, S2 - Gastrointestinal General gastrointestinal: normal bowel sounds - Integumentary Integumentary: normal turgor - Neurologic Neurologic: CNII-XII intact - Musculoskeletal Musculoskeletal: gait normal, generalized weakness - Psychiatric Psychiatric: A&O x's 3, appropriate affect, intact judgment & insight - Labs CBC & Chem 7: 04/01/21 15:22 04/01/21 15:22 Labs: Abnormal Lab Results - Last 24 Hours (Table) 04/02/21 04/02/21 04/02/21 Range/Units 07:08 07:08 11:45 POC Glucose (mg/dL) 113 H (75-99) mg/dL Hemoglobin A1c 10.5 H (4.0-6.0) % Procalcitonin 0.10 H (0.02-0.09) ng/mL 04/02/21 04/02/21 04/03/21 Range/Units 16:34 19:59 06:12 POC Glucose (mg/dL) 155 H 254 H 209 H (75-99) mg/dL Hemoglobin A1c (4.0-6.0) % Procalcitonin (0.02-0.09) ng/mL Microbiology - Last 24 Hours (Table) 04/01/21 15:30 Blood Culture - Preliminary Blood No Growth after 24 hours 04/01/21 15:15 Blood Culture - Preliminary Blood No Growth after 24 hours Assessment and Plan Assessment: Sleep disorder breathing and sleep apnea Noncompliance with CPAP machine Congestive heart failure likely acute on chronic diastolic heart failure Paroxysmal atrial fibrillation Hypertension hypertensive cardiovascular disease Chronic kidney disease Morbid obesity Baseline COPD not in next Plan: Overall plan is to continue supportive care continue gentle diuresis follow clinical course closely patient wanted to look into the inspire implantation device for sleep disorder breathing and sleep apnea she will evaluate her outpatient basis, but however patient will require baseline sleep study with further recommendations pending. Time with Patient: Greater than 30
--- NOTE | 2021-04-03 09:13 | XR ---
EXAMINATION TYPE: XR chest 2V DATE OF EXAM: 04/03/2021 COMPARISON: 04/01/2021 and prior HISTORY: 80 years Female. STUDY INDICATION GIVEN: chf . TECHNIQUE: PA and lateral chest radiograph FINDINGS AND IMPRESSION: Focal airspace disease, pneumothorax or pleural effusion. Mild interstitial opacities could be on the basis of edema or congestion. Minimal subsegmental atelec tasis. Both without significant change. Normal cardiomediastinal silhouette. No acute osseous abnormality. Stable sclerotic focus in the proximal right humerus. Suboptimal evaluation of the upper abdomen.
[2021-04-03 11:35] LABS: Calcium 8.3 mg/dL (8.4-10.2); Potassium 4.3 mmol/L (3.5-5.1)
[2021-04-03 11:50] LABS: Glucose,Whole Blood 292 mg/dL (75-99)
--- NOTE | 2021-04-03 12:06 | P.PN ---
Subjective Progress Note Date: 04/03/21 HISTORY OF PRESENT ILLNESS This is a 80-year-old female patient of Dr. Dawn/Henri Mejía NP and Dr. Hernandez with past medical history of paroxysmal atrial fibrillation, hypertensi on, hyperlipidemia, COPD from secondhand smoke, diabetes mellitus type 2, hypothyroidism, prior CVA, chronic kidney disease stage III, and nonobstructive coronary artery disease noted on cardiac catheterization performed in 2014, obstructive sleep apnea unable to tolerate CPAP, degenerative disc disease status post pain injections and has a appointment with Dr. Amaya May 03 to be established for pain management. Echocardiogram in May 2020 revealed EF of 55-60 %, severe concentric left hypertrophy, LA is severely dilated greater than 40 ML's per M2, mild aortic regurgitation, moderate aortic stenosis, mild to moderate mitral regurgitation, mild to moderate tricuspid regurgitation, mild pulmonary hypertension. Patient gives history that she was briefly started on first see gone then developed a vaginal yeast infection. She took 1 pill of Diflucan and within 1 hour she had generalized headache nausea and vomiting as well as chest tightness and shortness of breath. Denies abdominal pain. Patient was also started recently on Cipro and Bactrim for urinary tract infection. She apparently was at the store and she was told to come in the hospital immediately for chest pain. Patient also complains of Constipation. Patient presented to [facility] emergency center for evaluation. She is found to be afebrile, heart rate in the 70s and 80s, blood pressure 167/72, pulse ox 99% on room air. EKG is a sinus rhythm with left axis deviation WBC 11.1, Hemoccult and 12.1, platelet count 286, sodium 136, potassium 4.7, chloride 102, CO2 24, BUN 27 creatinine 1.39. Blood sugar 409. INR 1.1. Urinalysis clear with nitrate and leukoesterase negative. Lactic acid 1.8. Magnesium 2.1. Total bilirubin 0.5, AST 37, ALT 23, alkaline phosphatase 133. Chest x-ray reveals CHF. Patient was admitted to the cardiac stepdown unit and consult requested with cardiology and pulmonary medicine, patient started on IV Lasix. 04/03: States that she is feeling better today. Shortness of breath is decreased, denies shortness of breath. Weight is down 1 kg from yesterday. She's been afebrile, heart rate 84, blood pressure 1 5469, pulse ox 94% on room air. Blood cultures no growth at 24 hours. Capillary blood glucose running between 113 and 254. Sodium 135, potassium 4.3, BUN 38 creatinine 1.89. TSH 3.3-0. Pro calcitonin 0.1. Echocardiogram has been obtained and report is pending. Repeat chest x-ray reveals mild interstitial opacities could be edema or congestion. Minimal subsegmental atelectasis. Focal airspace disease, pneumothorax or pleural effusion. Patient is followed by Dr. Chamberlain from pulmonary medicine and cardiology REVIEW OF SYSTEMS Constitutional: No fever, no chills, no night sweats. No weight change. No w eakness, fatigue or lethargy. No daytime sleepiness. EENT: Reported headache. No blurred vision or double vision, no loss of vision. No loss of Hearing, no ringing in the ears, no dizziness. No nasal drainage or congestion. No epistaxis. No sore throat. Lungs: Denies shortness of breath, no cough, no sputum production. No wheezing. Reports dyspnea on exertion. Cardiovascular: Reported chest pain, positive lower extremity edema. No palpitations. No paroxysmal nocturnal dyspnea. No orthopnea. No lightheadedness or dizziness. No syncopal episodes. Abdominal: No abdominal pain. No nausea, vomiting. No diarrhea. No constipation. No bloody or tarry stools.. No loss of appetite. Genitourinary: Reported dysuria, no increased frequency, no urgency. No urinary retention. Musculoskeletal: No myalgias. No muscle weakness, no gait dysfunction, no frequent falls. No back pain. No neck pain. Integumentary: No wounds, no lesions. No rash or pruritus. No unusual bruising. No change in hair or nails. Neurologic: No aphasia. No facial droop. No change in mentation. No head injury. No headache. No paralysis. No paresthesia. Psychiatric: No depression. No anxiety. No mood swings. Endocrine: Noted abnormal blood sugars. No weight change. PHYSICAL EXAMINATION Gen: This is a 80-year-old female, obese, patient is sitting on the edge of the bed and appears to be comfortable and in no acute distress. Significant other at the bedside. HEENT: Head is atraumatic, normocephalic. Pupils equal, round. Sclerae is anicteric. NECK: Supple. No JVD. No lymphadenopathy. No thyromegaly. LUNGS: Slightly diminished to bases but otherwise clear to auscultation. No wheezes or rhonchi. No intercostal retractions. HEART: Regular rate and rhythm. 3/6 systolic murmur. ABDOMEN: Soft. Bowel sounds are present. No masses. No tenderness. EXTREMITIES: 1+ bilateral pedal edema. No calf tenderness. Dorsalis pedis +2 bilaterally. NEUROLOGICAL: Patient is awake, alert and oriented x3. Cranial nerves 2 through 12 are grossly intact. ASSESSMENT AND PLAN 1. Acute on chronic diastolic heart failure. Continue Lasix 40 mg IV every 8 hours, monitor I&O and daily weights, monitor renal function and electrolytes, consults with pulmonary medicine and cardiology, echocardiogram. 2. Chest pain with negative troponins, cardiology consult. 3. Diabetes mellitus type 2 uncontrolled with hyperglycemia. Continue Farxiga, Actos 15 mg daily, NovoLog mix 7030 20 units once given in the emergency center, continue NovoLog scale, NovoLog 20 units at bedtime, 40 units with breakfast. Obtain A1c. 4. Constipation. Patient started on MiraLAX to 17 g daily. 5. Paroxysmal atrial fibrillation continue eliquis 5 mg twice daily, Coreg 6.25 mg twice daily. 6. Hypertension hypertensive cardiovascular disease. Continue amlodipine 10 mg daily, Coreg 6.25 mg twice daily, hydralazine 100 mg 3 times daily, lisinopril 40 mg daily. 7. Hypothyroidism. Continue levothyroxine 125 g daily. TSH normal. 8. Diabetic neuropathy. Continue gabapentin 100 mg daily. 9. 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 Continue albuterol nebulizer every 6 hours as needed. 10. Acute kidney injury with Chronic kidney disease stage III. Avoid nephrotoxic agents, monitor kidney function. Lisinopril. 3 stop on hold. 11. Obstructive sleep apnea unable to tolerate CPAP. Patient will need to reestablish with pulmonary medicine and outpatient follow-up for sleep study. 12. Degenerative disc disease with chronic pain. Patient has been referred to pain management with her first appointment on May [address] Amaya. 13. Hyperlipidemia. Continue Lipitor 80 mg at bedtime. 14. Chronic anemia. Continue ferrous sulfate 325 mg daily. 15. Recent treatment for UTI and vaginal yeast infection, stable. 16. GI prophylaxis. Protonix. 17. DVT prophylaxis. Eliquis. DISCHARGE PLAN Home on Sunday or Sunday. Impression and plan of care have been directed as dictated by the signing physician. Bria Muhammad nurse practitioner acting as scribe for signing physician. Objective - Vital Signs Vital signs: Vital Signs Temp 97.8 F 04/03/21 08:00 Pulse 84 04/03/21 08:00 Resp 18 04/03/21 08:00 BP 154/69 04/03/21 08:00 Pulse Ox 94 L 04/03/21 08:00 Intake & Output 04/02/21 04/03/21 04/03/21 18:59 06:59 18:59 Weight 99.5 kg Other: Voiding Method Toilet # Voids 1 - Labs CBC & Chem 7: 04/01/21 15:22 04/03/21 10:50 Labs: Abnormal Lab Results - Last 24 Hours (Table) 04/02/21 04/02/21 04/02/21 Range/Units 07:08 07:08 11:45 POC Glucose (mg/dL) 113 H (75-99) mg/dL Hemoglobin A1c 10.5 H (4.0-6.0) % Procalcitonin 0.10 H (0.02-0.09) ng/mL 04/02/21 04/02/21 04/03/21 Range/Units 16:34 19:59 06:12 POC Glucose (mg/dL) 155 H 254 H 209 H (75-99) mg/dL Hemoglobin A1c (4.0-6.0) % Procalcitonin (0.02-0.09) ng/mL Microbiology - Last 24 Hours (Table) 04/01/21 15:30 Blood Culture - Preliminary Blood No Growth after 24 hours 04/01/21 15:15 Blood Culture - Preliminary Blood No Growth after 24 hours
--- NOTE | 2021-04-03 13:15 | P.PN ---
Subjective HISTORY OF PRESENTING ILLNESS Patient is a pleasant 80-year-old female with history of paroxysmal atrial fibrillation, hypertension, hyperlipidemia, COPD, diabetes mellitus type 2, hypothyroidism, prior CVA, chronic kidney disease, nonobstructive coronary artery disease by prior heart catheterization 2014, obstructive sleep apnea, diastolic heart failure with ejection fraction 55-60% and moderate aortic stenosis. Patient normally follows with Dr. Hernandez. She states she had been in her usual health however had a vaginal yeast infection and therefore was placed on fluconazole. She states she took the tablet and then approximately 20 minute s later started feeling short of breath with some associated chest tightness. She states she cannot catch her breath and therefore went to pharmacy and was going to buy some Benadryl however pharmacist told her to come to emergency department. She was thinking she was having a ALLERGIC reaction and states her lips were feeling swollen however mainly when she gets emergency department she did much better after IV diuresis. She admits that her cone baker machine took her off of daily Lasix and place her on every other day and that her Lasix is not giving the usual amount of urine output. She has normally been 190 pounds and is currently up in the 220. She does admit to mild lower extremity edema and fairly chronic orthopnea, 2 pillows. In retrospect she does have some dyspnea on exertion however does not do much activity. Blood work shows white blood cell count 11.1, hemoglobin 12.1, platelets 286, d- dimer 0.2, sodium 136, BUN 27, creatinine 1.39, glucose 409, AST 37, ALTs 23, troponin less than 0.012, 0.017, 0.024, proBNP 782. EKG shows normal sinus rhythm, left axis deviation, nonspecific ST, T-wave abnormalities. Chest x-ray was concerning for congestive heart failure. 04/03 Patient seen and examined. Patient had been placed on Lasix 40 mg IV every 8 hours however creatinine increased from 1.39 up to 1.7 and we will decrease to twice a day. Admits to good urine output and some improvement in her shortness breath. Denies any chest pain or pressure. REVIEW OF SYSTEMS At the time of my exam: CONSTITUTIONAL: Denies fever or chills. CARDIOVASCULAR: +chest pain, +shortness of breath, +orthopnea, no PND or palpitations. RESPIRATORY: Denies cough. GASTROINTESTINAL: Denies abdominal pain, diarrhea, constipation, nausea or vomiting. MUSCULOSKELETAL: Denies myalgias. NEUROLOGIC: Denies numbness, tingling or weakness. ENDOCRINE: Denies fatigue, polydipsia or polyurina. GENITOURINARY: Denies burning, hematuria or urgency with micturation. HEMATOLOGIC: Denies history of anemia or bleeding. PHYSICAL EXAMINATION Vital signs reviewed. CONSTITUTIONAL: No apparent distress, obese HEENT: Head is normocephalic. Pupils are equal, round. Sclerae anicteric. Mucous membranes of the mouth are moist. No JVD. No carotid bruit. CHEST EXAMINATION: Bilateral crackles at bases HEART EXAMINATION: Regular rate and rhythm. S1, S2 heard. +3/6 SE murmur, no gallops or rub. ABDOMEN: Soft, nontender. Positive bowel sounds. EXTREMITIES: 2+ peripheral pulses, 1+ lower extremity edema and no calf tenderness. NEUROLOGIC EXAMINATION: Patient is awake, alert and oriented x3. ASSESSMENT 1. Acute on chronic diastolic heart failure 2. Paroxysmal atrial fibrillation, currently normal sinus rhythm 3. COPD 4. Hypertension 5. Hyperlipidemia 6. Nonobstructive coronary artery disease by prior heart catheterization 2014 7. Obstructive sleep apnea 8. Chest tightness, likely related to congestive heart failure 9. Chronic kidney disease 10. Questionable ALLERGIC reaction to flucanazole 11. Uncontrolled diabetes mellitus type 2 12. Moderate by prior echo 05/2020 PLAN Decrease Lasix from every 8 hours to every 12 hours and monitor kidney function closely. Accurate ins and outs. Check repeat 2-D echo to evaluate degree of aortic stenosis, left ventricular function. Further recommendations to follow. Objective - Vital Signs Vital signs: Vital Signs Temp 97.8 F 04/03/21 08:00 Pulse 84 04/03/21 08:00 Resp 18 04/03/21 11:32 BP 154/69 04/03/21 08:00 Pulse Ox 94 L 04/03/21 08:00 Intake & Output 04/02/21 04/03/21 04/03/21 18:59 06:59 18:59 Weight 99.5 kg Other: Voiding Method Toilet # Voids 1 - Labs CBC & Chem 7: 04/01/21 15:22 04/03/21 10:50 Labs: Abnormal Lab Results - Last 24 Hours (Table) 04/02/21 04/02/21 04/02/21 Range/Units 07:08 07:08 16:34 Sodium (137-145) mmol/L BUN (7-17) mg/dL Creatinine (0.52-1.04) mg/dL Glucose (74-99) mg/dL POC Glucose (mg/dL) 155 H (75-99) mg/dL Hemoglobin A1c 10.5 H (4.0-6.0) % Calcium (8.4-10.2) mg/dL Procalcitonin 0.10 H (0.02-0.09) ng/mL 04/02/21 04/03/21 04/03/21 Range/Units 19:59 06:12 10:50 Sodium 135 L (137-145) mmol/L BUN 38 H (7-17) mg/dL Creatinine 1.89 H (0.52-1.04) mg/dL Glucose 337 H (74-99) mg/dL POC Glucose (mg/dL) 254 H 209 H (75-99) mg/dL Hemoglobin A1c (4.0-6.0) % Calcium 8.3 L (8.4-10.2) mg/dL Procalcitonin (0.02-0.09) ng/mL 04/03/21 Range/Units 11:47 Sodium (137-145) mmol/L BUN (7-17) mg/dL Creatinine (0.52-1.04) mg/dL Glucose (74-99) mg/dL POC Glucose (mg/dL) 292 H (75-99) mg/dL Hemoglobin A1c (4.0-6.0) % Calcium (8.4-10.2) mg/dL Procalcitonin (0.02-0.09) ng/mL Microbiology - Last 24 Hours (Table) 04/01/21 15:30 Blood Culture - Preliminary Blood No Growth after 24 hours 04/01/21 15:15 Blood Culture - Preliminary Blood No Growth after 24 hours
[2021-04-03 17:00] LABS: Glucose,Whole Blood 187 mg/dL (75-99)
[2021-04-03] MEDS ORDERED: MAGNESIUM HYDROXIDE 2,400 MG/10 ML CUP PO PRN (17:20)
[2021-04-03] MEDS: ATORVASTATIN 80 MG TAB PO SCH (21:05)
[2021-04-03] MEDS: ACETAMINOPHEN TAB 500 MG TAB PO PRN (21:08)
[2021-04-03 21:20] LABS: Glucose,Whole Blood 330 mg/dL (75-99)
[2021-04-04] MEDS: LEVOTHYROXINE 125 MCG TAB PO SCH (06:49)
[2021-04-04 07:24] LABS: Glucose,Whole Blood 314 mg/dL (75-99)
[2021-04-04 08:04] LABS: Calcium 8.6 mg/dL (8.4-10.2); Potassium 5.2 mmol/L (3.5-5.1)
[2021-04-04] MEDS: hydrALAZINE HCL 50 MG TAB PO SCH ×3 (08:18→21:52)
[2021-04-04] MEDS: PANTOPRAZOLE 40 MG TABLET PO SCH (08:19)
[2021-04-04] MEDS: FUROSEMIDE 10 MG/ML 4 ML VIAL IV SCH (08:19)
[2021-04-04] MEDS: amLODIPine 10 MG TAB PO SCH (08:19)
[2021-04-04] MEDS: INSULIN ASPART (NovoLOG) 100 UNIT/ML VIAL SQ SCH ×5 (08:19→23:08)
[2021-04-04] MEDS: GABAPENTIN 100 MG CAP PO SCH (08:19)
[2021-04-04] MEDS: carvediloL 6.25 MG TAB PO SCH ×2 (08:19→21:52)
[2021-04-04] MEDS: FERROUS SULFATE 325 MG TAB PO SCH (08:19)
[2021-04-04] MEDS: polyethylene glycoL 3350 17 GM POWD.PACK PO SCH (08:19)
[2021-04-04] MEDS: PIOGLITAZONE 15 MG TAB PO SCH (08:19)
[2021-04-04] MEDS: APIXABAN 5 MG TAB PO SCH ×2 (08:19→21:52)
[2021-04-04] MEDS: NON FORMULARY DRUG (Dapagliflozin Propanediol [Farxiga] 10 MG Tablet) PO SCH (08:20)
--- NOTE | 2021-04-04 09:01 | P.PN ---
Subjective Progress Note Date: 04/04/21 Principal diagnosis: Sleep disorder breathing and sleep apnea Noncompliance with CPAP machine Sleep disorder breathing and sleep apnea Noncompliance with CPAP machine Congestive heart failure likely acute on chronic diastolic heart failure Paroxysmal atrial fibrillation Hypertension hypertensive cardiovascular disease Chronic kidney disease Morbid obesity Baseline COPD not in next 04/04/2021, patient seen and evaluated examined during the rounds labs reviewed medications reviewed and shortness of breath stable and slightly improved, oxygen saturation 94% labs in proximal pattern stable compared to yesterday, Denies any cough or sputum production Schempp shortness breath during activity and exertion is present 04/03/2021, patient seen eval examined during the rounds resting comfortably denies any chest pain intermittent cough is present, respiratory status s ignificantly improved compared to prior exam, patient is afebrile, oxygen saturation stable, on room air 94%, chest x-ray performed today are clear failed to reveal significant infiltrate, some interstitial edema more of a suggestion of CHF present This is a 80-year-old female with minimal medical problems including hypertension hypertensive cardiovascular disease congestive heart failure chronic atrial fibrillation and diabetes mellitus, patient came into the hospital for evaluation of multiple constitutional symptoms including nausea vomiting this year he had chest tightness and shortness of breath on these symptoms are going on for short period time for few hours she attributes to Diflucan, patient also has a extensive history of the lip disorder breathing and sleep apnea lately not using CPAP machine due to multiple issues as well as claustrophobia wants to look into his spine Objective - Vital Signs Vital signs: Vital Signs Temp 97.9 F 04/04/21 08:15 Pulse 65 04/04/21 08:15 Resp 18 04/04/21 08:15 BP 134/66 04/04/21 08:15 Pulse Ox 98 04/04/21 08:15 Intake & Output 04/03/21 04/04/21 04/04/21 18:59 06:59 18:59 Intake Total 240 960 Balance 240 960 Weight 100.3 kg Intake: Oral 240 960 Other: Voiding Method Toilet # Voids 1 4 - Exam - Constitutional General appearance: no acute distress, obese - EENT Eyes: PERRLA Ears: bilateral: normal - Neck Neck: normal ROM Carotids: bilateral: upstroke normal Thyroid: right: enlarged - Respiratory Respiratory: bilateral: CTA - Cardiovascular Rhythm: regular Heart sounds: normal: S1, S2 - Gastrointestinal General gastrointestinal: normal bowel sounds - Integumentary Integumentary: normal turgor - Neurologic Neurologic: CNII-XII intact - Musculoskeletal Musculoskeletal: gait normal, generalized weakness - Psychiatric Psychiatric: A&O x's 3, appropriate affect, intact judgment & insight - Labs CBC & Chem 7: 04/01/21 15:22 04/04/21 07:16 Labs: Abnormal Lab Results - Last 24 Hours (Table) 04/03/21 04/03/21 04/03/21 Range/Units 10:50 11:47 16:54 Sodium 135 L (137-145) mmol/L Potassium (3.5-5.1) mmol/L Carbon Dioxide (22-30) mmol/L BUN 38 H (7-17) mg/dL Creatinine 1.89 H (0.52-1.04) mg/dL Glucose 337 H (74-99) mg/dL POC Glucose (mg/dL) 292 H 187 H (75-99) mg/dL Calcium 8.3 L (8.4-10.2) mg/dL 04/03/21 04/04/21 04/04/21 Range/Units 21:00 07:16 07:22 Sodium 136 L (137-145) mmol/L Potassium 5.2 H (3.5-5.1) mmol/L Carbon Dioxide 31 H (22-30) mmol/L BUN 44 H (7-17) mg/dL Creatinine 2.03 H (0.52-1.04) mg/dL Glucose 268 H (74-99) mg/dL POC Glucose (mg/dL) 330 H 314 H (75-99) mg/dL Calcium (8.4-10.2) mg/dL Microbiology - Last 24 Hours (Table) 04/01/21 15:30 Blood Culture - Preliminary Blood No Growth after 48 hours 04/01/21 15:15 Blood Culture - Preliminary Blood No Growth after 48 hours Assessment and Plan Assessment: Sleep disorder breathing and sleep apnea Noncompliance with CPAP machine Congestive heart failure likely acute on chronic diastolic heart failure Paroxysmal atrial fibrillation Hypertension hypertensive cardiovascular disease Chronic kidney disease Morbid obesity Baseline COPD not in next Plan: Overall plan is to continue supportive care continue gentle diuresis follow clinical course closely patient wanted to look into the inspire implantation device for sleep disorder breathing and sleep apnea she will evaluate her outpatient basis, but however patient will require baseline sleep study with further recommendations pending.
--- NOTE | 2021-04-04 12:03 | P.PN ---
Subjective HISTORY OF PRESENTING ILLNESS Patient is a pleasant 80-year-old female with history of paroxysmal atrial fibrillation, hypertension, hyperlipidemia, COPD, diabetes mellitus type 2, hypothyroidism, prior CVA, chronic kidney disease, nonobstructive coronary artery disease by prior heart catheterization 2014, obstructive sleep apnea, diastolic heart failure with ejection fraction 55-60% and moderate aortic stenosis. Patient normally follows with Dr. Hernandez. She states she had been in her usual health however had a vaginal yeast infection and therefore was placed on fluconazole. She states she took the tablet and then approximately 20 minute s later started feeling short of breath with some associated chest tightness. She states she cannot catch her breath and therefore went to pharmacy and was going to buy some Benadryl however pharmacist told her to come to emergency department. She was thinking she was having a ALLERGIC reaction and states her lips were feeling swollen however mainly when she gets emergency department she did much better after IV diuresis. She admits that her adaptive physical education specialist took her off of daily Lasix and place her on every other day and that her Lasix is not giving the usual amount of urine output. She has normally been 190 pounds and is currently up in the 220. She does admit to mild lower extremity edema and fairly chronic orthopnea, 2 pillows. In retrospect she does have some dyspnea on exertion however does not do much activity. 04/04/2021 Patient seen and examined up ambulating around the room in no acute distress. She denies chest pain or shortness of breath. Blood pressure 124/60 heart rate 55 afebrile maintaining oxygen saturation on room air. She continues to maintain sinus mechanism. Laboratory data reviewed, sodium 136, potassium 5.2 and creatinine 2.03. PHYSICAL EXAMINATION CONSTITUTIONAL: No apparent distress, obese HEENT: Head is normocephalic. Pupils are equal, round. Sclerae anicteric. Mucous membranes of the mouth are moist. No JVD. No carotid bruit. CHEST EXAMINATION: Clear to auscultation bilaterally HEART EXAMINATION: Regular rate and rhythm. S1, S2 heard. +3/6 systolic ejection murmur at the base, no gallops or rub. EXTREMITIES: 2+ peripheral pulses, trace bilateral nonpitting lower extremity edema and no calf tenderness. ASSESSMENT Acute on chronic diastolic heart failure Hyperkalemia Paroxysmal atrial fibrillation, currently normal sinus rhythm COPD Hypertension Hyperlipidemia Nonobstructive coronary artery disease by prior heart catheterization 2014 Obstructive sleep apnea Chest tightness, likely related to congestive heart failure Chronic kidney disease Diabetes mellitus type 2, type II Moderate aortic stenosis PLAN Transition to oral lasix 20 mg daily. Echocardiogram has been obtained and will be reviewed. Continue to increase activity and ambulation. Repeat BMP in the morning. Nurse Practitioner note has been reviewed, I agree with a documented findings and plan of care. Patient was seen and examined. Objective - Vital Signs Vital signs: Vital Signs Temp 97.9 F 04/04/21 08:15 Pulse 65 04/04/21 08:15 Resp 18 04/04/21 08:15 BP 134/66 04/04/21 08:15 Pulse Ox 98 04/04/21 08:15 Intake & Output 04/03/21 04/04/21 04/04/21 18:59 06:59 18:59 Intake Total 240 960 Balance 240 960 Weight 100.3 kg Intake: Oral 240 960 Other: Voiding Method Toilet # Voids 1 4 - Labs CBC & Chem 7: 04/01/21 15:22 04/04/21 07:16 Labs: Abnormal Lab Results - Last 24 Hours (Table) 04/03/21 04/03/21 04/03/21 Range/Units 10:50 11:47 16:54 Sodium 135 L (137-145) mmol/L Potassium (3.5-5.1) mmol/L Carbon Dioxide (22-30) mmol/L BUN 38 H (7-17) mg/dL Creatinine 1.89 H (0.52-1.04) mg/dL Glucose 337 H (74-99) mg/dL POC Glucose (mg/dL) 292 H 187 H (75-99) mg/dL Calcium 8.3 L (8.4-10.2) mg/dL 04/03/21 04/04/21 04/04/21 Range/Units 21:00 07:16 07:22 Sodium 136 L (137-145) mmol/L Potassium 5.2 H (3.5-5.1) mmol/L Carbon Dioxide 31 H (22-30) mmol/L BUN 44 H (7-17) mg/dL Creatinine 2.03 H (0.52-1.04) mg/dL Glucose 268 H (74-99) mg/dL POC Glucose (mg/dL) 330 H 314 H (75-99) mg/dL Calcium (8.4-10.2) mg/dL Microbiology - Last 24 Hours (Table) 04/01/21 15:30 Blood Culture - Preliminary Blood No Growth after 48 hours 04/01/21 15:15 Blood Culture - Preliminary Blood No Growth after 48 hours
[2021-04-04 12:19] LABS: Glucose,Whole Blood 140 mg/dL (75-99)
[2021-04-04] MEDS: ACETAMINOPHEN TAB 500 MG TAB PO PRN ×2 (13:58→23:36)
[2021-04-04 13:59] VITALS: BMI 37.9
--- NOTE | 2021-04-04 17:08 | P.PN ---
Subjective Progress Note Date: 04/04/21 HISTORY OF PRESENT ILLNESS This is a 80-year-old female patient of Dr. Dawn/Henri Mejía NP and Dr. Hernandez with past medical history of paroxysmal atrial fibrillation, hypertensi on, hyperlipidemia, COPD from secondhand smoke, diabetes mellitus type 2, hypothyroidism, prior CVA, chronic kidney disease stage III, and nonobstructive coronary artery disease noted on cardiac catheterization performed in 2014, obstructive sleep apnea unable to tolerate CPAP, degenerative disc disease status post pain injections and has a appointment with Dr. Amaya May 03 to be established for pain management. Echocardiogram in May 2020 revealed EF of 55-60 %, severe concentric left hypertrophy, LA is severely dilated greater than 40 ML's per M2, mild aortic regurgitation, moderate aortic stenosis, mild to moderate mitral regurgitation, mild to moderate tricuspid regurgitation, mild pulmonary hypertension. Patient gives history that she was briefly started on first see gone then developed a vaginal yeast infection. She took 1 pill of Diflucan and within 1 hour she had generalized headache nausea and vomiting as well as chest tightness and shortness of breath. Denies abdominal pain. Patient was also started recently on Cipro and Bactrim for urinary tract infection. She apparently was at the store and she was told to come in the hospital immediately for chest pain. Patient also complains of Constipation. Patient presented to [facility] emergency center for evaluation. She is found to be afebrile, heart rate in the 70s and 80s, blood pressure 167/72, pulse ox 99% on room air. EKG is a sinus rhythm with left axis deviation WBC 11.1, Hemoccult and 12.1, platelet count 286, sodium 136, potassium 4.7, chloride 102, CO2 24, BUN 27 creatinine 1.39. Blood sugar 409. INR 1.1. Urinalysis clear with nitrate and leukoesterase negative. Lactic acid 1.8. Magnesium 2.1. Total bilirubin 0.5, AST 37, ALT 23, alkaline phosphatase 133. Chest x-ray reveals CHF. Patient was admitted to the cardiac stepdown unit and consult requested with cardiology and pulmonary medicine, patient started on IV Lasix. 04/03: States that she is feeling better today. Shortness of breath is decreased, denies shortness of breath. Weight is down 1 kg from yesterday. She's been afebrile, heart rate 84, blood pressure 1 5469, pulse ox 94% on room air. Blood cultures no growth at 24 hours. Capillary blood glucose running between 113 and 254. Sodium 135, potassium 4.3, BUN 38 creatinine 1.89. TSH 3.3-0. Pro calcitonin 0.1. Echocardiogram has been obtained and report is pending. Repeat chest x-ray reveals mild interstitial opacities could be edema or congestion. Minimal subsegmental atelectasis. Focal airspace disease, pneumothorax or pleural effusion. Patient is followed by Dr. Friedman from pulmonary medicine and cardiology 04/04: Patient does not have any chest pain or shortness of breath, diuretics adjusted down, and switch to oral Lasix, 20 mg daily, echocardiogram is currently pending, labs today are potassium of 5.2, creatinine of 2.03, blood sugars are elevated, we have readjusted arm insulin, patient is on 7525 at home, and was given short-acting instead of the combination regimen, blood sugars were 186-314 earlier, currently between 140-163. Blood pressures are between 103-124 systolic, she follows with nephrology routinely outpatient, and Lasix were adjusted down previously to this. She remains on Actos 15, and amlodipine 10, Tradjenta is available the hospital, initially adjusted today REVIEW OF SYSTEMS Constitutional: No fever, no chills, no night sweats. No weight change. No weakness, fatigue or lethargy. No daytime sleepiness. EENT: Reported headache. No blurred vision or double vision, no loss of vision. No loss of Hearing, no ringing in the ears, no dizziness. No nasal drainage or congestion. No epistaxis. No sore throat. Lungs: Denies shortness of breath, no cough, no sputum production. No wheezing. Reports dyspnea on exertion. Cardiovascular: Reported chest pain, positive lower extremity edema. No palpitations. No paroxysmal nocturnal dyspnea. No orthopnea. No li ghtheadedness or dizziness. No syncopal episodes. Abdominal: No abdominal pain. No nausea, vomiting. No diarrhea. No constipation. No bloody or tarry stools.. No loss of appetite. Genitourinary: Reported dysuria, no increased frequency, no urgency. No urinary retention. Musculoskeletal: No myalgias. No muscle weakness, no gait dysfunction, no frequent falls. No back pain. No neck pain. Integumentary: No wounds, no lesions. No rash or pruritus. No unusual bruising. No change in hair or nails. Neurologic: No aphasia. No facial droop. No change in mentation. No head injury. No headache. No paralysis. No paresthesia. Psychiatric: No depression. No anxiety. No mood swings. Endocrine: Noted abnormal blood sugars. No weight change. Objective - Vital Signs Vital signs: Vital Signs Temp 98.3 F 04/04/21 11:20 Pulse 63 04/04/21 15:45 Resp 18 04/04/21 15:45 BP 124/60 04/04/21 15:45 Pulse Ox 98 04/04/21 15:45 Intake & Output 04/03/21 04/04/21 04/04/21 18:59 06:59 18:59 Intake Total 240 960 837 Balance 240 960 837 Weight 100.3 kg 100.3 kg Intake: Oral 240 960 837 Other: Voiding Method Toilet Toilet # Voids 1 4 - Labs CBC & Chem 7: 04/01/21 15:22 04/04/21 07:16 Labs: Abnormal Lab Results - Last 24 Hours (Table) 04/03/21 04/04/21 04/04/21 Range/Units 21:00 07:16 07:22 Sodium 136 L (137-145) mmol/L Potassium 5.2 H (3.5-5.1) mmol/L Carbon Dioxide 31 H (22-30) mmol/L BUN 44 H (7-17) mg/dL Creatinine 2.03 H (0.52-1.04) mg/dL Glucose 268 H (74-99) mg/dL POC Glucose (mg/dL) 330 H 314 H (75-99) mg/dL 04/04/21 Range/Units 12:17 Sodium (137-145) mmol/L Potassium (3.5-5.1) mmol/L Carbon Dioxide (22-30) mmol/L BUN (7-17) mg/dL Creatinine (0.52-1.04) mg/dL Glucose (74-99) mg/dL POC Glucose (mg/dL) 140 H (75-99) mg/dL Microbiology - Last 24 Hours (Table) 04/01/21 15:30 Blood Culture - Preliminary Blood No Growth after 48 hours 04/01/21 15:15 Blood Culture - Preliminary Blood No Growth after 48 hours Assessment and Plan Plan: 1. Acute on chronic diastolic heart failure. Continue Lasix 40 mg IV every 8 hours, monitor I&O and daily weights, monitor renal function and electrolytes, consults with pulmonary medicine and cardiology, echocardiogram. 2. Chest pain with negative troponins, cardiology consult. 3. Diabetes mellitus type 2 uncontrolled with hyperglycemia. Continue Farxiga this is not available in the hospital, would resume post discharge, Actos 15 mg daily we'll discontinue secondary to edema, NovoLog mix 7030 20 units once given in the emergency center, continue NovoLog scale, NovoLog 7030 20 units at bedtime, 40 units with breakfast. Obtain A1c., Uncontrolled at 10, might benefit from rybelsus, we will discontinue Actos at this time, 4. Constipation. Patient started on MiraLAX to 17 g daily. 5. Paroxysmal atrial fibrillation continue eliquis 5 mg twice daily, Coreg 6.25 mg twice daily. 6. Hypertension hypertensive cardiovascular disease. Continue amlodipine 10 mg daily Will decrease to 5 mg, secondary to edema, Coreg 6.25 mg twice daily, hydralazine 100 mg 3 times daily, lisinopril 40 mg daily. 7. Hypothyroidism. Continue levothyroxine 125 g daily. TSH normal. 8. Diabetic neuropathy. Continue gabapentin 100 mg daily. 9. 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 Continue albuterol nebulizer every 6 hours as needed. 10. Acute kidney injury with Chronic kidney disease stage III. Avoid nephrotoxic agents, monitor kidney function. Lisinopril. 3 stop on hold. 11. Obstructive sleep apnea unable to tolerate CPAP. Patient will need to reestablish with pulmonary medicine and outpatient follow-up for sleep study. 12. Degenerative disc disease with chronic pain. Patient has been referred to pain management with her first appointment on May [address] Amaya. 13. Hyperlipidemia. Continue Lipitor 80 mg at bedtime. 14. Chronic anemia. Continue ferrous sulfate 325 mg daily. 15. Recent treatment for UTI and vaginal yeast infection, stable. 16. GI prophylaxis. Protonix. 17. DVT prophylaxis. Eliquis. DISCHARGE PLAN Home on Sunday or Sunday.
[2021-04-04 17:09] LABS: Glucose,Whole Blood 163 mg/dL (75-99)
[2021-04-04] MEDS ORDERED: INSULN ASP PRT/INSULIN ASPART 100 UNIT/ML 10 ML VIAL SQ SCH (17:30)
[2021-04-04 20:23] LABS: Glucose,Whole Blood 177 mg/dL (75-99)
[2021-04-04] MEDS: ATORVASTATIN 80 MG TAB PO SCH (21:52)
[2021-04-05] MEDS: PANTOPRAZOLE 40 MG TABLET PO SCH (06:33)
[2021-04-05] MEDS: LEVOTHYROXINE 125 MCG TAB PO SCH (06:33)
[2021-04-05 07:28] LABS: Glucose,Whole Blood 240 mg/dL (75-99)
[2021-04-05] MEDS ORDERED: INSULN ASP PRT/INSULIN ASPART 100 UNIT/ML 10 ML VIAL SQ SCH (07:30)
[2021-04-05] MEDS: hydrALAZINE HCL 50 MG TAB PO SCH ×2 (08:03→15:19)
[2021-04-05] MEDS: APIXABAN 5 MG TAB PO SCH (08:04)
[2021-04-05] MEDS: FERROUS SULFATE 325 MG TAB PO SCH (08:04)
[2021-04-05] MEDS: INSULIN ASPART (NovoLOG) 100 UNIT/ML VIAL SQ SCH ×2 (08:04→12:37)
[2021-04-05] MEDS: carvediloL 6.25 MG TAB PO SCH (08:04)
[2021-04-05] MEDS: GABAPENTIN 100 MG CAP PO SCH (08:04)
[2021-04-05] MEDS: polyethylene glycoL 3350 17 GM POWD.PACK PO SCH (08:04)
[2021-04-05] MEDS: NON FORMULARY DRUG (Dapagliflozin Propanediol [Farxiga] 10 MG Tablet) PO SCH (08:05)
[2021-04-05 08:16] VITALS: RESP 18; TEMP 98.4
[2021-04-05 08:57] LABS: Calcium 8.7 mg/dL (8.4-10.2); Potassium 4.9 mmol/L (3.5-5.1)
[2021-04-05] MEDS ORDERED: amLODIPine 5 MG TAB PO SCH (09:00)
[2021-04-05] MEDS ORDERED: ERGOCALCIFEROL 1,250 MCG (50,000 IU) CAPSULE PO SCH (09:00)
[2021-04-05] MEDS ORDERED: FUROSEMIDE 20 MG TAB PO SCH (09:00)
--- NOTE | 2021-04-05 10:54 | P.PN ---
Subjective HISTORY OF PRESENTING ILLNESS Patient is a pleasant 80-year-old female with history of paroxysmal atrial fibrillation, hypertension, hyperlipidemia, COPD, diabetes mellitus type 2, hypothyroidism, prior CVA, chronic kidney disease, nonobstructive coronary artery disease by prior heart catheterization 2014, obstructive sleep apnea, diastolic heart failure with ejection fraction 55-60% and moderate aortic stenosis. Patient normally follows with Dr. Hernandez. She states she had been in her usual health however had a vaginal yeast infection and therefore was placed on fluconazole. She states she took the tablet and then approximately 20 minute s later started feeling short of breath with some associated chest tightness. She states she cannot catch her breath and therefore went to pharmacy and was going to buy some Benadryl however pharmacist told her to come to emergency department. She was thinking she was having a ALLERGIC reaction and states her lips were feeling swollen however mainly when she gets emergency department she did much better after IV diuresis. She admits that her segment producer took her off of daily Lasix and place her on every other day and that her Lasix is not giving the usual amount of urine output. She has normally been 190 pounds and is currently up in the 220. She does admit to mild lower extremity edema and fairly chronic orthopnea, 2 pillows. In retrospect she does have some dyspnea on exertion however does not do much activity. 04/04/2021 Patient seen and examined laying flat in bed in no acute distress. She denies shortness of breath, chest pain, dizziness or palpitations. Laboratory data reviewed, sodium 138, potassium 4.9, creatinine 2.06. Vital signs stable. PHYSICAL EXAMINATION CONSTITUTIONAL: No apparent distress, obese HEENT: Head is normocephalic. Pupils are equal, round. Sclerae anicteric. Mucous membranes of the mouth are moist. No JVD. No carotid bruit. CHEST EXAMINATION: Clear to auscultation bilaterally HEART EXAMINATION: Regular rate and rhythm. S1, S2 heard. +3/6 systolic ejection murmur at the base, no gallops or rub. EXTREMITIES: 2+ peripheral pulses, trace bilateral nonpitting lower extremity edema and no calf tenderness. ASSESSMENT Acute on chronic diastolic heart failure Hyperkalemia Paroxysmal atrial fibrillation, currently normal sinus rhythm COPD Hypertension Hyperlipidemia Nonobstructive coronary artery disease by prior heart catheterization 2014 Obstructive sleep apnea Chest tightness, likely related to congestive heart failure Chronic kidney disease Diabetes mellitus type 2, type II Moderate aortic stenosis PLAN Clinically stable on current medical regimen. Follow-up in the office with Dr. Hernandez upon discharge. Nurse Practitioner note has been reviewed, I agree with a documented findings and plan of care. Patient was seen and examined. Objective - Vital Signs Vital signs: Vital Signs Temp 98.4 F 04/05/21 08:00 Pulse 62 04/05/21 08:00 Resp 18 04/05/21 08:00 BP 148/66 04/05/21 08:00 Pulse Ox 95 04/05/21 08:00 Intake & Output 04/04/21 04/05/21 04/05/21 18:59 06:59 18:59 Intake Total 1077 Output Total 900 Balance 1077 -900 Weight 100.3 kg 100.1 kg Intake: Oral 1077 Output: Urine 900 Other: Voiding Method Toilet Toilet - Labs CBC & Chem 7: 04/01/21 15:22 04/05/21 08:17 Labs: Abnormal Lab Results - Last 24 Hours (Table) 04/04/21 04/04/21 04/04/21 Range/Units 12:17 17:07 20:22 BUN (7-17) mg/dL Creatinine (0.52-1.04) mg/dL Glucose (74-99) mg/dL POC Glucose (mg/dL) 140 H 163 H 177 H (75-99) mg/dL 04/05/21 04/05/21 Range/Units 07:25 08:17 BUN 47 H (7-17) mg/dL Creatinine 2.06 H (0.52-1.04) mg/dL Glucose 259 H (74-99) mg/dL POC Glucose (mg/dL) 240 H (75-99) mg/dL Microbiology - Last 24 Hours (Table) 04/01/21 15:30 Blood Culture - Preliminary Blood No Growth after 72 hours 04/01/21 15:15 Blood Culture - Preliminary Blood No Growth after 72 hours
--- NOTE | 2021-04-05 10:54 | P.PN ---
Subjective Progress Note Date: 04/05/21 Principal diagnosis: Sleep disorder breathing and sleep apnea Noncompliance with CPAP machine Sleep disorder breathing and sleep apnea Noncompliance with CPAP machine Congestive heart failure likely acute on chronic diastolic heart failure Paroxysmal atrial fibrillation Hypertension hypertensive cardiovascular disease Chronic kidney disease Morbid obesity Baseline COPD not in next 04/05/2021, overall doing fairly well off of supplemental oxygen breathing comfortably denies any chest pain patient continued to be diabetes however switched overall now, last chest x-ray performed 15 reviewed and compared to the prior 04/04/2021, patient seen and evaluated examined during the rounds labs reviewed medications reviewed and shortness of breath stable and slightly improved, oxygen saturation 94% labs in proximal pattern stable compared to yesterday, Denies any cough or sputum production Schempp shortness breath during activity and exertion is present 04/03/2021, patient seen eval examined during the rounds resting comfortably denies any chest pain intermittent cough is present, respiratory status significantly improved compared to prior exam, patient is afebrile, oxygen saturation stable, on room air 94%, chest x-ray performed today are clear failed to reveal significant infiltrate, some interstitial edema more of a suggestion of CHF present This is a 80-year-old female with minimal medical problems including hypertension hypertensive cardiovascular disease congestive heart failure chronic atrial fibrillation and diabetes mellitus, patient came into the hospital for evaluation of multiple constitutional symptoms including nausea vomiting this year he had chest tightness and shortness of breath on these symptoms are going on for short period time for few hours she attributes to Diflucan, patient also has a extensive history of the lip disorder breathing and sleep apnea lately not using CPAP machine due to multiple issues as well as claustrophobia wants to look into his spine Objective - Vital Signs Vital signs: Vital Signs Temp 98.4 F 04/05/21 08:00 Pulse 62 04/05/21 08:00 Resp 18 04/05/21 08:00 BP 148/66 04/05/21 08:00 Pulse Ox 95 04/05/21 08:00 Intake & Output 04/04/21 04/05/21 04/05/21 18:59 06:59 18:59 Intake Total 1077 240 Output Total 900 Balance 1077 -900 240 Weight 100.3 kg 100.1 kg Intake: Oral 1077 240 Output: Urine 900 Other: Voiding Method Toilet Toilet Toilet - Exam - Constitutional General appearance: no acute distress, obese - EENT Eyes: PERRLA Ears: bilateral: normal - Neck Neck: normal ROM Carotids: bilateral: upstroke normal Thyroid: right: enlarged - Respiratory Respiratory: bilateral: CTA - Cardiovascular Rhythm: regular Heart sounds: normal: S1, S2 - Gastrointestinal General gastrointestinal: normal bowel sounds - Integumentary Integumentary: normal turgor - Neurologic Neurologic: CNII-XII intact - Musculoskeletal Musculoskeletal: gait normal, generalized weakness - Psychiatric Psychiatric: A&O x's 3, appropriate affect, intact judgment & insight - Labs CBC & Chem 7: 04/01/21 15:22 04/05/21 08:17 Labs: Abnormal Lab Results - Last 24 Hours (Table) 04/04/21 04/04/21 04/04/21 Range/Units 12:17 17:07 20:22 BUN (7-17) mg/dL Creatinine (0.52-1.04) mg/dL Glucose (74-99) mg/dL POC Glucose (mg/dL) 140 H 163 H 177 H (75-99) mg/dL 04/05/21 04/05/21 Range/Units 07:25 08:17 BUN 47 H (7-17) mg/dL Creatinine 2.06 H (0.52-1.04) mg/dL Glucose 259 H (74-99) mg/dL POC Glucose (mg/dL) 240 H (75-99) mg/dL Microbiology - Last 24 Hours (Table) 04/01/21 15:30 Blood Culture - Preliminary Blood No Growth after 72 hours 04/01/21 15:15 Blood Culture - Preliminary Blood No Growth after 72 hours Assessment and Plan Assessment: Sleep disorder breathing and sleep apnea Noncompliance with CPAP machine Congestive heart failure likely acute on chronic diastolic heart failure Paroxysmal atrial fibrillation Hypertension hypertensive cardiovascular disease Chronic kidney disease Morbid obesity Baseline COPD not in next Plan: Overall plan is to continue supportive care continue gentle diuresis follow clinical course closely patient wanted to look into the inspire implantation device for sleep disorder breathing and sleep apnea she will evaluate her outpatient basis, but however patient will require baseline sleep study with further recommendations pending. Time with Patient: Greater than 30
[2021-04-05 12:13] LABS: Glucose,Whole Blood 205 mg/dL (75-99)
--- NOTE | 2021-04-05 14:14 | P.DS ---
Providers Date of admission: 04/01/21 18:50 Expected date of discharge: 04/05/21 Attending physician: Lanie Temple Consults: 04/01/21 17:58 Consult Physician Routine Consulting Provider: [facility] Consult Reason/Comments: CHF, chest tightness Do you want consulting provider notified?: Yes 04/01/21 17:59 Consult Physician Routine Consulting Provider: Dar Friedman Consult Reason/Comments: COPD, Hypoxia Do you want consulting provider notified?: Yes Primary care physician: Dontae Dawn [place] [facility] Course: HISTORY OF PRESENT ILLNESS This is a 80-year-old female patient of Dr. 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 Hernandez with past medical history of paroxysmal atrial fibrillation, hypertension, hyperlipidemia, COPD from secondhand smoke, diabetes mellitus type 2, hypothyroidism, prior CVA, chronic kidney disease stage III, and nonobstructive coronary artery disease noted on cardiac catheterization performed in 2014, obstructive sleep apnea unable to tolerate CPAP, degenerative disc disease status post pain injections and has a appointment with Dr. Amaya May 03 to be established for pain management. Echocardiogram in May 2020 revealed EF of 55-60 %, severe concentric left hypertrophy, LA is severely dilated greater than 40 ML's per M2, mild aortic regurgitation, moderate aortic stenosis, mild to moderate mitral regurgitation, mild to moderate tricuspid regurgitation, mild pulmonary hypertension. Patient gives history that she was briefly started on first see gone then developed a vaginal yeast infection. She took 1 pill of Diflucan and within 1 hour she had generalized headache nausea and vomiting as well as chest tightness and shortness of breath. Denies abdominal pain. Patient was also started recently on Cipro and Bactrim for urinary tract infection. She apparently was at the store and she was told to come in the hospital immediately for chest pain. Patient also complains of Constipation. Patient presented to [facility] emergency center for evaluation. She is found to be afebrile, heart rate in the 70s and 80s, blood pressure 167/72, pulse ox 99% on room air. EKG is a sinus rhythm with left axis deviation WBC 11.1, Hemoccult and 12.1, platelet count 286, sodium 136, potassium 4.7, chloride 102, CO2 24, BUN 27 creatinine 1.39. Blood sugar 409. INR 1.1. Urinalysis clear with nitrate and leukoesterase negative. Lactic acid 1.8. Magnesium 2.1. Total bilirubin 0.5, AST 37, ALT 23, alkaline phosphatase 133. Chest x-ray reveals CHF. Patient was admitted to the cardiac stepdown unit and consult requested with cardiology and pulmonary medicine, patient started on IV Lasix. 04/03: States that she is feeling better today. Shortness of breath is decreased, denies shortness of breath. Weight is down 1 kg from yesterday. She's been afebrile, heart rate 84, blood pressure 1 5469, pulse ox 94% on room air. Blood cultures no growth at 24 hours. Capillary blood glucose running between 113 and 254. Sodium 135, potassium 4.3, BUN 38 creatinine 1.89. TSH 3.3-0. Pro calcitonin 0.1. Echocardiogram has been obtained and report is pending. Repeat chest x-ray reveals mild interstitial opacities could be edema or congestion. Minimal subsegmental atelectasis. Focal airspace disease, pneumothorax or pleural effusion. Patient is followed by Dr. Friedman from pulmonary medicine and cardiology 04/04: Patient does not have any chest pain or shortness of breath, diuretics adjusted down, and switch to oral Lasix, 20 mg daily, echocardiogram is currently pending, labs today are potassium of 5.2, creatinine of 2.03, blood sugars are elevated, we have readjusted arm insulin, patient is on 7525 at home, and was given short-acting instead of the combination regimen, blood sugars were 186-314 earlier, currently between 140-163. Blood pressures are between 103-124 systolic, she follows with nephrology routinely outpatient, and Lasix were adjusted down previously to this. She remains on Actos 15, and amlodipine 10, Tradjenta is available the hospital, initially adjusted today 04/05: Patient feels much better today, no chest pain no shortness of breath, no new problems today, outpatient follow-up with pulmonary, Dr. Friedman, for sleep eval, also to have cardiology Dr. Hernandez, Lasix on discharge, amlodipine decreased to 5 mg, to continue on Actos, and 75/25 Humalog mix, keep appointment with endocrine, no antibiotic needed today, patient has completed her UTI treatment, no pyuria on hospital evaluation, no symptoms of dysuria this time. No fever. Stable on discharge, REVIEW OF SYSTEMS Constitutional: No fever, no chills, no night sweats. No weight change. No weakness, fatigue or lethargy. No daytime sleepiness. EENT: Reported headache. No blurred vision or double vision, no loss of vision. No loss of Hearing, no ringing in the ears, no dizziness. No nasal drainage or congestion. No epistaxis. No sore throat. Lungs: Denies shortness of breath, no cough, no sputum production. No wheezing. Reports dyspnea on exertion. Cardiovascular: Reported chest pain, positive lower extremity edema. No palpitations. No paroxysmal nocturnal dyspnea. No orthopnea. No lightheadedness or dizziness. No syncopal episodes. Abdominal: No abdominal pain. No nausea, vomiting. No diarrhea. No constipation. No bloody or tarry stools.. No loss of appetite. Genitourinary: Reported dysuria, no increased frequency, no urgency. No urinary retention. Musculoskeletal: No myalgias. No muscle weakness, no gait dysfunction, no f requent falls. No back pain. No neck pain. Integumentary: No wounds, no lesions. No rash or pruritus. No unusual bruising. No change in hair or nails. Neurologic: No aphasia. No facial droop. No change in mentation. No head injury. No headache. No paralysis. No paresthesia. Psychiatric: No depression. No anxiety. No mood swings. Endocrine: Noted abnormal blood sugars. No weight change. Final diagnosis 1. Acute on chronic diastolic heart failure. Continue Lasix 40 mg IV every 8 hours, monitor I&O and daily weights, monitor renal function and electrolytes, consults with pulmonary medicine and cardiology, echocardiogram no current results for review., Discharge home with oral Lasix 20 mg, with follow-up Dr. Cunningham, fish processor, creatinine is at 2.0 today, her pulmonary Dr. Friedman, for sleep study, and Dr. Hernandez cardiology 2. Chest pain with negative troponins, cardiology consult. 3. Diabetes mellitus type 2 uncontrolled with hyperglycemia. Continue Farxiga this is not available in the hospital, would resume post discharge, Actos 15 mg daily , NovoLog mix 7030 20 units once given in the emergency center, continue NovoLog scale, Humalog mix 7525 home dose 20 units at bedtime, 40 units with breakfast. Obtain A1c., Uncontrolled at 10, might benefit from rybelsus, we will continue Actos at this time, might need to be discontinued secondary to edema, primary endocrine to eval 4. Constipation. Patient started on MiraLAX to 17 g daily. 5. Paroxysmal atrial fibrillation continue eliquis 5 mg twice daily, Coreg 6.25 mg twice daily. 6. Hypertension hypertensive cardiovascular disease. Continue amlodipine 10 mg daily Will decrease to 5 mg, secondary to edema, Coreg 6.25 mg twice daily, hydralazine 100 mg 3 times daily, lisinopril 40 mg daily. 7. Hypothyroidism. Continue levothyroxine 125 g daily. TSH normal. 8. Diabetic neuropathy. Continue gabapentin 100 mg daily. 9. 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 Continue albuterol nebulizer every 6 hours as needed. 10. Acute kidney injury with Chronic kidney disease stage III. Avoid nephrotoxic agents, monitor kidney function. Lisinopril. 3 stop on hold. 11. Obstructive sleep apnea unable to tolerate CPAP. Patient will need to reestablish with pulmonary medicine and outpatient follow-up for sleep study. 12. Degenerative disc disease with chronic pain. Patient has been referred to pain management with her first appointment on May [address] Amaya. 13. Hyperlipidemia. Continue Lipitor 80 mg at bedtime. 14. Chronic anemia. Continue ferrous sulfate 325 mg daily. 15. Recent treatment for UTI and vaginal yeast infection, stable. 16. GI prophylaxis. Protonix. 17. DVT prophylaxis. Eliquis. Patient Condition at Discharge: Stable Plan - Discharge Summary New Discharge Prescriptions: New Furosemide [Lasix] 20 mg PO DAILY #0 tab amLODIPine [Norvasc] 5 mg PO DAILY #30 tab Continue Atorvastatin [Lipitor] 80 mg PO HS Apixaban [Eliquis] 5 mg PO BID #60 tab lisinopriL 40 mg PO DAILY hydrALAZINE HCL [Apresoline] 100 mg PO TID Levothyroxine Sodium [Synthroid] 125 mcg PO DAILY #30 tab Insulin NPL/Insulin Lispro [humaLOG MIX 75-25 VIAL] 20 unit SQ HS Insulin NPL/Insulin Lispro [humaLOG MIX 75-25 VIAL] 40 unit SQ W/BRKFST Albuterol Sulfate [Proair Hfa] 2 puff INHALATION RT-Q6H PRN PRN Reason: Dyspnea Ergocalciferol [Vitamin D2 (DRISDOL)] 50,000 unit PO TU Pioglitazone [Actos] 15 mg PO DAILY Dapagliflozin Propanediol [Farxiga] 10 mg PO DAILY Acetaminophen [Tylenol Extra Strength] 500 - 1,000 mg PO Q8H PRN PRN Reason: Pain Menthol [Biofreeze] 1 applic TOPICAL QID PRN PRN Reason: Pain Ferrous Sulfate [Feosol] 325 mg PO DAILY Gabapentin [Neurontin] 100 mg PO DAILY Imiquimod 1 pack TOPICAL HS PRN PRN Reason: NOSE X3 WEEKS Carvedilol [Coreg] 6.25 mg PO BID Discontinued amLODIPine BESYLATE 10 mg PO DAILY Furosemide [Lasix] 20 mg PO Q48H Ciprofloxacin HCl [Cipro] 500 mg PO BID Sulfamethox-Tmp 800-160Mg [Bactrim DS 800-160 mg] 1 tab PO Q12HR Fluconazole [Diflucan] 150 mg PO DAILY Discharge Medication List Atorvastatin [Lipitor] 80 mg PO HS 06/30/18 [History] Apixaban [Eliquis] 5 mg PO BID #60 tab 07/04/18 [Rx] hydrALAZINE HCL [Apresoline] 100 mg PO TID 01/06/19 [History] lisinopriL 40 mg PO DAILY 01/06/19 [History] Levothyroxine Sodium [Synthroid] 125 mcg PO DAILY #30 tab 01/08/19 [Rx] Insulin NPL/Insulin Lispro [humaLOG MIX 75-25 VIAL] 20 unit SQ HS 05/30/20 [History] Insulin NPL/Insulin Lispro [humaLOG MIX 75-25 VIAL] 40 unit SQ W/BRKFST 06/05/20 [History] Albuterol Sulfate [Proair Hfa] 2 puff INHALATION RT-Q6H PRN 07/19/20 [History] Ergocalciferol [Vitamin D2 (DRISDOL)] 50,000 unit PO TU 07/19/20 [History] Pioglitazone [Actos] 15 mg PO DAILY 09/13/20 [History] Dapagliflozin Propanediol [Farxiga] 10 mg PO DAILY 09/20/20 [History] Acetaminophen [Tylenol Extra Strength] 500 - 1,000 mg PO Q8H PRN 10/14/20 [History] Menthol [Biofreeze] 1 applic TOPICAL QID PRN 10/14/20 [History] Carvedilol [Coreg] 6.25 mg PO BID 04/01/21 [History] Ferrous Sulfate [Feosol] 325 mg PO DAILY 04/01/21 [History] Gabapentin [Neurontin] 100 mg PO DAILY 04/01/21 [History] Imiquimod 1 pack TOPICAL HS PRN 04/01/21 [History] Furosemide [Lasix] 20 mg PO DAILY #0 tab 04/05/21 [Rx] amLODIPine [Norvasc] 5 mg PO DAILY #30 tab 04/05/21 [Rx] Follow up Appointment(s)/Referral(s): Yanelis Cunningham MD [STAFF PHYSICIAN] - 1 Week Renée Hernandez MD [STAFF PHYSICIAN] - 2 Weeks Dontae Dawn MD [Primary Care Provider] - 1-2 days Dar Friedman MD [STAFF PHYSICIAN] - 10 Days Ambulatory/Diagnostic Orders: Basic Metabolic Panel [LAB.AMB] Location: None Selected Complete Blood Count w/diff [LAB.AMB] Time Frame: 1 Week, Facility: [facility], Location: Laboratory Department
[2021-04-05 14:18] VITALS: BP 151/74; PULSE 65
--- NOTE | 2021-04-06 09:08 | ECHOF ---
Referral Reason:HF MEASUREMENTS -------- HEIGHT: 162.6 cm WEIGHT: 100.7 kg BP: 122/63 RVIDd: 3.3 cm (< 3.3) IVSd: 1.8 cm (0.6 - 1.1) LVIDd: 4.0 cm (3.9 - 5.3) LVPWd: 1.8 cm (0.6 - 1.1) IVSs: 2.1 cm LVIDs: 2.7 cm LVPWs: 2.3 cm LAESV Index (A-L): 39.13 ml/m Ao Diam: 3.1 cm (2.0 - 3.7) AV Cusp: 1.7 cm (1.5 - 2.6) LA Diam: 4.6 cm (2.7 - 3.8) MV EXCURSION: 18.450 mm (> 18.000) MV EF SLOPE: 76 mm/s (70 - 150) EPSS: 0.7 cm MV E Joel: 1.52 m/s MV DecT: 179 ms MV A Joel: 1.33 m/s MV E/A Ratio: 1.14 AV maxP.91 mmHg AV meanP.66 mmHg RAP: 5.00 mmHg RVSP: 39.19 mmHg FINDINGS -------- Sinus rhythm. This was a technically adequate study. The left ventricular size is normal. There is severe concentric left ventricular hypertrophy. Ove rall left ventricular systolic function is normal with, an EF between 55 - 60 %. Increased Lap Grad e II Diastolic Dysfunction. The right ventricle is mildly enlarged. LA is moderately dilated 34-39 ml/m2 The right atrial size is normal. Interatrial and interventricular septum intact. There is no evidence of aortic regurgitation. There is moderate aortic stenosis present. Peak/bonita n gradient across the Aortic Valve is 60.91mmHg / 34.66mmHg. Mild mitral annular calcification present. Moderate mitral regurgitation is present. Mild tricuspid regurgitation present. There is mild pulmonary hypertension. The right ventricular systolic pressure, as measured by Doppler, is 39.19mmHg. There is no pulmonic regurgitation present. The aortic root size is normal. IVC Not well visulized. There is no pericardial effusion. CONCLUSIONS -------- 1. The left ventricular size is normal. 2. There is severe concentric left ventricular hypertrophy. 3. Overall left ventricular systolic function is normal with, an EF between 55 - 60 %. 4. Increased Lap Grade II Diastolic Dysfunction. 5. The right ventricle is mildly enlarged. 6. LA is moderately dilated 34-39 ml/m2 7. There is moderate aortic stenosis present. 8. Peak/mean gradient across the Aortic Valve is 60.91mmHg / 34.66mmHg. 9. Mild mitral annular calcification present. 10. Moderate mitral regurgitation is present. 11. Mild tricuspid regurgitation present. 12. There is mild pulmonary hypertension. 13. The right ventricular systolic pressure, as measured by Doppler, is 39.19mmHg. APPAREL DESIGNER: Larissa Santos RDCS
== END 2021-04-05 16:43 | disposition home or self-care (01) | DRG 291 ==
LOC: EC 14:32 → 3SCARD 18:50
PROVIDERS: ADMIT Family Medicine; ATTEND Family Medicine
DX: I13.0 Hypertensive heart and chronic kidney disease with heart failure and stage 1 through stage 4 chronic kidney disease, or unspecified chronic kidney disease (principal); I50.33 Acute on chronic diastolic (congestive) heart failure; N39.0 Urinary tract infection, site not specified; N17.9 Acute kidney failure, unspecified; E11.22 Type 2 diabetes mellitus with diabetic chronic kidney disease; E11.65 Type 2 diabetes mellitus with hyperglycemia; N18.30 Chronic kidney disease, stage 3 unspecified; D63.1 Anemia in chronic kidney disease; Z79.4 Long term (current) use of insulin; E03.9 Hypothyroidism, unspecified; E11.40 Type 2 diabetes mellitus with diabetic neuropathy, unspecified; J44.9 Chronic obstructive pulmonary disease, unspecified; E66.01 Morbid (severe) obesity due to excess calories; Z68.37 Body mass index [BMI] 37.0-37.9, adult; E78.5 Hyperlipidemia, unspecified; Z85.828 Personal history of other malignant neoplasm of skin; E87.5 Hyperkalemia; I27.20 Pulmonary hypertension, unspecified; Z79.01 Long term (current) use of anticoagulants; F40.240 Claustrophobia; G47.33 Obstructive sleep apnea (adult) (pediatric); G89.29 Other chronic pain; I08.3 Combined rheumatic disorders of mitral, aortic and tricuspid valves; I25.10 Atherosclerotic heart disease of native coronary artery without angina pectoris; I48.0 Paroxysmal atrial fibrillation; Z77.22 Contact with and (suspected) exposure to environmental tobacco smoke (acute) (chronic); K59.00 Constipation, unspecified; R09.02 Hypoxemia; B37.3 Candidiasis of vulva and vagina; Z79.890 Hormone replacement therapy; Z79.899 Other long term (current) drug therapy; Z80.0 Family history of malignant neoplasm of digestive organs; Z80.6 Family history of leukemia; Z80.8 Family history of malignant neoplasm of other organs or systems; Z82.0 Family history of epilepsy and other diseases of the nervous system; Z82.3 Family history of stroke; Z82.49 Family history of ischemic heart disease and other diseases of the circulatory system; Z83.3 Family history of diabetes mellitus; Z86.73 Personal history of transient ischemic attack (TIA), and cerebral infarction without residual deficits; Z87.01 Personal history of pneumonia (recurrent); Z91.19 Patient's noncompliance with other medical treatment and regimen; Z98.42 Cataract extraction status, left eye; Z98.41 Cataract extraction status, right eye; Z96.1 Presence of intraocular lens; Z98.890 Other specified postprocedural states; Z88.1 Allergy status to other antibiotic agents; Z88.8 Allergy status to other drugs, medicaments and biological substances
CPT/HCPCS: 36415; 71045; 71046; 74019; 80048; 80053; 81001; 83036; 83605; 83735; 83880; 84145; 84443; 84484; 85025; 85379; 85610; 85730; 87040; 93005; 93306; 96374; 96375; 99285

== ENCOUNTER → 2021-04-14 | Outpatient (CLI) | payer MEDICARE ==
--- NOTE | 2021-04-15 10:41 | SFUN ---
SLEEP CENTER FOLLOW UP NOTE DATE OF SERVICE: 04/14/2021 This is a 80-year-old lady who has been re-evaluated in Sleep Center for obstructive sleep apnea-hypopnea syndrome. The last time I saw the patient was in September of 2019. She was on treatment with CPAP, but she did not like the treatment and returned her CPAP unit. At present her sleep schedule is from around 11 p.m. to 7 a.m. She wakes up from sleep 3 times with nocturia, snoring, dry mouth. [place] Sleepiness Scale is 6. She was in the hospital recently and she was told that she needs to be re-evaluated in Sleep Center because she has sleep apnea. PRESENT MEDICATIONS: 1. Eliquis 5 mg twice a day. 2. Lipitor 80 mg once a day. 3. Hydralazine 100 mg 3 times a day. 4. Levothyroxine 125 mcg once a day. 5. Lisinopril 25 mg once a day. 6. Insulin. 7. Actos 15 mg once a day. 8. Norvasc 5 mg once a day. 9. Lasix 20 mg once a day. PHYSICAL EXAMINATION: GENERAL: A pleasant patient in no distress. VITAL SIGNS: BP 179/80, HR 86, RR 16, height 5 feet 3 inches, weight 217, body mass index 38.4, temperature 98.5, oxygen saturation at room air 94%. HEENT: PERRLA, EOMI, evaluation of oropharynx showed tongue protrudes midline. Extremely low position of soft palate; Mallampati IV. NECK: Supple, no JVD. Thyroid is not palpable. LUNGS: Clear to percussion and to auscultation. Good air exchange. No wheezing or rhonchi. HEART: S1, S2 regular. No murmurs, gallops, or rubs. ABDOMEN: Obese. EXTREMITIES: One plus ankle edema. CHERRY SORTER: Awake, alert, and oriented X3. Cranial nerves 2 to 7 intact. There is no fasciculation or atrophy. noted. No focal deficits observed. IMPRESSION: 1. Obstructive sleep apnea-hypopnea syndrome. 2. Hypertension. 3. Diabetes mellitus. 4. Hypothyroidism. 5. History of atrial fibrillation. 6. History of kidney problems. 7. Obesity. 8. Status post back surgery. PLAN: 1. Polysomnogram for evaluation of patient's breathing at the present time because the patient stopped treatment with CPAP more than one year ago. 2. CPAP titration for correction of respiratory abnormalities during sleep after reviewing results of polysomnogram. 3. Sleep hygiene with regular time in bed for at least 7-1/2 to 8 hours. 4. No driving if feeling any sleepiness. 5. Losing weight. Thank you very much for allowing me to participate in the management of your patient. Sincerely, Yoshi Machado MD, PhD, FAASM Diplomat of [employer] [employer] Sleep Medicine Board of [place] [employer] Associate of [facility] [place] MMODL / IJN: [id number] /
== END ==
LOC: SLEEP 16:07
PROVIDERS: ATTEND Internal Medicine
DX: G47.33 Obstructive sleep apnea (adult) (pediatric) (principal); I10 Essential (primary) hypertension; E11.9 Type 2 diabetes mellitus without complications; E03.9 Hypothyroidism, unspecified; E66.9 Obesity, unspecified; Z68.38 Body mass index [BMI] 38.0-38.9, adult; I48.91 Unspecified atrial fibrillation; Z87.448 Personal history of other diseases of urinary system; Z98.890 Other specified postprocedural states; Z79.4 Long term (current) use of insulin; Z79.899 Other long term (current) drug therapy; Z99.89 Dependence on other enabling machines and devices; Z88.1 Allergy status to other antibiotic agents; Z88.2 Allergy status to sulfonamides; Z88.8 Allergy status to other drugs, medicaments and biological substances

== ENCOUNTER 2021-05-09 20:35 | Observation (INO) | payer MEDICARE ==
[2021-05-09 21:29] LABS: Basophils % (A) 0 %; Eosinophils # (A) 0.5 k/uL (0-0.7); Eosinophils % (A) 6 %; HGB 12.2 gm/dL (11.4-16.0); Hypochromasia Slight; Lymphocytes % (A) 21 %; MCH 27.5 pg (25.0-35.0); MCHC 30.5 g/dL (31.0-37.0); MCV 90.2 fL (80.0-100.0); Mean Platelet Volume 8.4; Monocytes # (A) 1.1 k/uL (0-1.0); Monocytes % (A) 11 %; Neutrophils # (A) 5.6 k/uL (1.3-7.7); Neutrophils % (A) 58 %; Platelet Count 248 k/uL (150-450); RBC 4.44 m/uL (3.80-5.40); RDW 13.6 % (11.5-15.5); WBC 9.7 k/uL (3.8-10.6)
--- NOTE | 2021-05-09 21:39 | ED ---
General Adult HPI - General Chief complaint: Chest Pain Stated complaint: Chest Pain Time Seen by Provider: 05/09/21 20:52 Source: patient Mode of arrival: wheelchair Limitations: no limitations - History of Present Illness Initial comments: Is a 80-year-old failed to history of CHF who presents emergent department for chest pain and shortness of breath. Patient states that the symptoms started this evening shortly after eating dinner. She states that she became dyspneic and had some chest tightness. She states he's had no lightheadedness. She also has little bit of cough productive of clear phlegm. She denies any nausea, vomiting, diarrhea. No fevers or chills. No sore throat. No upper respiratory symptoms. She states that she does have little bit of increased swelling to her lower extremities however this is been gradual over the last few months. Patient is quite dyspneic on arrival into the room. - Related Data Home Medications Medication Instructions Recorded Confirmed Atorvastatin [Lipitor] 80 mg PO HS 06/30/18 05/09/21 hydrALAZINE HCL [Apresoline] 100 mg PO TID 01/06/19 05/09/21 lisinopriL 40 mg PO DAILY 01/06/19 05/09/21 Insulin NPL/Insulin Lispro 20 unit SQ HS 05/30/20 05/09/21 [humaLOG MIX 75-25 VIAL] Insulin NPL/Insulin Lispro 40 unit SQ W/BRKFST 06/05/20 05/09/21 [humaLOG MIX 75-25 VIAL] Albuterol Sulfate [Proair Hfa] 2 puff INHALATION RT-Q6H PRN 07/19/20 05/09/21 Ergocalciferol [Vitamin D2 50,000 unit PO TU 07/19/20 05/09/21 (DRISDOL)] Pioglitazone [Actos] 15 mg PO DAILY 09/13/20 05/09/21 Dapagliflozin Propanediol [Farxiga] 10 mg PO DAILY 09/20/20 05/09/21 Acetaminophen [Tylenol Extra 500 - 1,000 mg PO Q8H PRN 10/14/20 05/09/21 Strength] Menthol [Biofreeze] 1 applic TOPICAL QID PRN 10/14/20 05/09/21 Carvedilol [Coreg] 6.25 mg PO BID 04/01/21 05/09/21 Ferrous Sulfate [Feosol] 325 mg PO DAILY 04/01/21 05/09/21 Gabapentin [Neurontin] 100 mg PO DAILY 04/01/21 05/09/21 Previous Rx's Medication Instructions Recorded Apixaban [Eliquis] 5 mg PO BID #60 tab 07/04/18 Levothyroxine Sodium [Synthroid] 125 mcg PO DAILY #30 tab 01/08/19 Furosemide [Lasix] 20 mg PO DAILY #30 tab 04/05/21 amLODIPine [Norvasc] 5 mg PO DAILY #30 tab 04/05/21 Allergies Allergy/AdvReac Type Severity Reaction Status Date / Time azithromycin Allergy Rash/Hives Verified 05/09/21 21:42 [From Zithromax Z-Jeanmarie] methylprednisolone Allergy Rash/Hives Verified 05/09/21 21:42 [From Medrol] trimethoprim [From Bactrim] Allergy Rash/Hives Verified 05/09/21 21:42 hydrochlorothiazide AdvReac lost Verified 05/09/21 21:42 balance and fell sulfamethoxazole AdvReac Rash/Hives Verified 05/09/21 21:42 [From Bactrim] Review of Systems ROS Statement: Those systems with pertinent positive or pertinent negative responses have been documented in the HPI. ROS Other: All systems not noted in ROS Statement are negative. Past Medical History Past Medical History: Cancer, Pneumonia Additional Past Medical History / Comment(s): Stage III Kidney Disease, hx Pneumonia with Sepsis, no CPAP use, Vitamin D Deficiency, chronic low back pain, frequent constipation, hx skin cancer. History of Any Multi-Drug Resistant Organisms: None Reported Past Surgical History: Heart Catheterization Additional Past Surgical History / Comment(s): Cardiac caths , lap band placed/since removed, low back surgery, L carpal tunnel release X2, skin cancer removal, colonoscopies, bilateral cataract removals/lens implants. Past Anesthesia/Blood Transfusion Reactions: Previous Problems w/ Anesthesia Additional Past Anesthesia/Blood Transfusion Reaction / Comment(s): "Had too much anesthesia in 2007 for lap band removal, had to be bagged." Past Psychological History: No Psychological Hx Reported Smoking Status: Never smoker Past Alcohol Use History: None Reported Past Drug Use History: None Reported - Past Family History Sister(s) Family Medical History: Myocardial Infarction ([place]) Brother(s) Family Medical History: Cancer Additional Family Medical History / Comment(s): Colon Cancer. Mother Family Medical History: Dementia Additional Family Medical History / Comment(s): Mother of dementia at the age of 89yrs. Father Family Medical History: Cancer Additional Family Medical History / Comment(s): Pt states her father was treated for a sinus infection but really had leukemia and of this at the age of 72 yrs. General Exam - General Exam Comments Initial Comments: Constitutional: Awake alert appears dyspneic Head: Normocephalic atraumatic Eyes: no conjunctival injection No scleral icterus EOMI Neck: No JVD Supple Heart: Regular rate rhythm normal S1-S2 no murmurs Lungs: Clear to auscultation bilaterally No wheezing basilar rales Abdomen: Soft nondistended nontender Extremities: Edema to the bilateral lower extremities DP pulses intact Radial pulses intact Neuro: A&Ox3 No focal neurologic deficits Psych: Appropriate mood and affect Limitations: no limitations Course Vital Signs 05/09/21 05/09/21 05/09/21 20:36 22:15 22:20 Temperature 97.9 F Pulse Rate 107 H 88 Respiratory 18 18 Rate Blood Pressure 216/85 170/112 189/92 O2 Sat by Pulse 90 L 96 Oximetry EKG Findings - EKG Comments: EKG Findings:: EKG showing normal sinus rhythm with a rate of 94. Doesn't appear to be any abnormal ST 7 changes or T-wave inversions. QTC is 47. Other intervals appear normal. No ectopy. EKG appears similar to previous Medical Decision Making - Medical Decision Making Is a 80-year-old female who presents him in [facility] for chest pain and dyspnea. The patient was quite dyspneic on arrival. She was hypertensive and mildly hypoxic at 90% on room air. The patient does not wear oxygen at home. Patient was monitored and had a chest x-ray rate performed that showed bibasilar changes. It's read as possible infiltrates however I feel that this likely represents pulmonary edema. The patient's had no fever, chills. She did have a little bit a cough however symptoms were quite sudden this evening I do not feel that this is an infectious etiology. Negative treat her for fluid overload and CHF exacerbation. IV Lasix. She was given a dose of hydralazine for her blood pressure. Like to keep her in the hospital for monitoring overnight. Dr. Mayen accepts the patient for admission. - Lab Data Result diagrams: 05/09/21 21:19 05/09/21 21:19 Lab Results 05/09/21 05/09/21 05/09/21 Range/Units 21:19 21:19 21:19 WBC 9.7 (3.8-10.6) k/uL RBC 4.44 (3.80-5.40) m/uL Hgb 12.2 (11.4-16.0) gm/dL Hct 40.0 (34.0-46.0) % MCV 90.2 (80.0-100.0) fL MCH 27.5 (25.0-35.0) pg MCHC 30.5 L (31.0-37.0) g/dL RDW 13.6 (11.5-15.5) % Plt Count 248 (150-450) k/uL MPV 8.4 Neutrophils % 58 % Lymphocytes % 21 % Monocytes % 11 % Eosinophils % 6 % Basophils % 0 % Neutrophils # 5.6 (1.3-7.7) k/uL Lymphocytes # 2.0 (1.0-4.8) k/uL Monocytes # 1.1 H (0-1.0) k/uL Eosinophils # 0.5 (0-0.7) k/uL Basophils # 0.0 (0-0.2) k/uL Hypochromasia Slight PT 10.4 (9.0-12.0) sec INR 1.0 (<1.2) APTT 23.4 (22.0-30.0) sec D-Dimer 0.38 (<0.60) mg/L FEU Sodium 137 (137-145) mmol/L Potassium 3.8 (3.5-5.1) mmol/L Chloride 105 (98-107) mmol/L Carbon Dioxide 24 (22-30) mmol/L Anion Gap 8 mmol/L BUN 21 H (7-17) mg/dL Creatinine 1.29 H (0.52-1.04) mg/dL Est GFR (CKD-EPI)AfAm 46 (>60 ml/min/1.73 sqM) Est GFR (CKD-EPI)NonAf 40 (>60 ml/min/1.73 sqM) Glucose 300 H (74-99) mg/dL Calcium 8.6 (8.4-10.2) mg/dL Magnesium 1.9 (1.6-2.3) mg/dL Total Bilirubin 0.4 (0.2-1.3) mg/dL AST 24 (14-36) U/L ALT 17 (4-34) U/L Alkaline Phosphatase 134 H (38-126) U/L Troponin I (0.000-0.034) ng/mL Total Protein 6.4 (6.3-8.2) g/dL Albumin 3.5 (3.5-5.0) g/dL Coronavirus (PCR) (Not Detectd) 05/09/21 05/09/21 Range/Units 21:19 21:19 WBC (3.8-10.6) k/uL RBC (3.80-5.40) m/uL Hgb (11.4-16.0) gm/dL Hct (34.0-46.0) % MCV (80.0-100.0) fL MCH (25.0-35.0) pg MCHC (31.0-37.0) g/dL RDW (11.5-15.5) % Plt Count (150-450) k/uL MPV Neutrophils % % Lymphocytes % % Monocytes % % Eosinophils % % Basophils % % Neutrophils # (1.3-7.7) k/uL Lymphocytes # (1.0-4.8) k/uL Monocytes # (0-1.0) k/uL Eosinophils # (0-0.7) k/uL Basophils # (0-0.2) k/uL Hypochromasia PT (9.0-12.0) sec INR (<1.2) APTT (22.0-30.0) sec D-Dimer (<0.60) mg/L FEU Sodium (137-145) mmol/L Potassium (3.5-5.1) mmol/L Chloride (98-107) mmol/L Carbon Dioxide (22-30) mmol/L Anion Gap mmol/L BUN (7-17) mg/dL Creatinine (0.52-1.04) mg/dL Est GFR (CKD-EPI)AfAm (>60 ml/min/1.73 sqM) Est GFR (CKD-EPI)NonAf (>60 ml/min/1.73 sqM) Glucose (74-99) mg/dL Calcium (8.4-10.2) mg/dL Magnesium (1.6-2.3) mg/dL Total Bilirubin (0.2-1.3) mg/dL AST (14-36) U/L ALT (4-34) U/L Alkaline Phosphatase (38-126) U/L Troponin I 0.024 (0.000-0.034) ng/mL Total Protein (6.3-8.2) g/dL Albumin (3.5-5.0) g/dL Coronavirus (PCR) Not Detected (Not Detectd) Disposition Clinical Impression: Hypertensive urgency, Pulmonary edema, CHF exacerbation Disposition: ADMITTED IP TO THIS HOSP Condition: Stable Referrals: Dontae Dawn MD [Primary Care Provider] - 1-2 days
[2021-05-09 21:41] LABS: Albumin 3.5 g/dL (3.5-5.0); Calcium 8.6 mg/dL (8.4-10.2); Magnesium 1.9 mg/dL (1.6-2.3); Total Bilirubin 0.4 mg/dL (0.2-1.3); Total Protein 6.4 g/dL (6.3-8.2)
--- NOTE | 2021-05-09 21:42 | XR ---
EXAMINATION TYPE: XR chest 1V portable DATE OF EXAM: 05/09/2021 COMPARISON: 04/03/2021 HISTORY: Pain status post fall TECHNIQUE: Single frontal view of the chest is obtained. FINDINGS: There is moderate perihilar and bibasilar opacities. No pleural effusion, or pneumothorax seen. The cardiac silhouette size is enlarged. The osseous structures are intact. IMPRESSION: Moderate bibasilar opacities may represent atelectasis, aspiration changes or infiltrates .
[2021-05-09 21:44] LABS: Partial Thromboplastin Time 23.4 sec (22.0-30.0); Prothrombin Time 10.4 sec (9.0-12.0)
[2021-05-09] MEDS ORDERED: hydrALAZINE HCL 20 MG/ML 1 ML VIAL IVP STA (22:05)
[2021-05-09 22:16] LABS: Potassium 3.8 mmol/L (3.5-5.1)
[2021-05-09] MEDS ORDERED: FUROSEMIDE 10 MG/ML 4 ML VIAL IV STA (22:23)
[2021-05-09] MEDS ORDERED: NALOXONE 0.4 MG/ML 1 ML VIAL IV PRN (22:28)
[2021-05-10 01:45] LABS: Glucose,Whole Blood 109 mg/dL (75-99)
[2021-05-10 03:30] LABS: Glucose,Whole Blood 84 mg/dL (75-99)
[2021-05-10] MEDS ORDERED: Dapagliflozin Propanediol [Farxiga] PO SCH (09:00)
[2021-05-10 09:06] LABS: Glucose,Whole Blood 147 mg/dL (75-99)
[2021-05-10] MEDS: APIXABAN 5 MG TAB PO SCH ×2 (09:06→21:41)
[2021-05-10] MEDS: carvediloL 12.5 MG TAB PO SCH ×2 (09:06→15:52)
[2021-05-10] MEDS: PIOGLITAZONE 15 MG TAB PO SCH (09:06)
[2021-05-10] MEDS: ISOSORBIDE MONONITRATE ER 30 MG TAB.ER.24H PO SCH (09:07)
[2021-05-10] MEDS: hydrALAZINE HCL 50 MG TAB PO SCH ×3 (09:07→21:41)
[2021-05-10] MEDS: LEVOTHYROXINE 125 MCG TAB PO SCH (09:08)
[2021-05-10] MEDS: amLODIPine 5 MG TAB PO SCH (09:08)
[2021-05-10] MEDS: FUROSEMIDE 10 MG/ML 4 ML VIAL IV SCH ×2 (09:08→21:40)
[2021-05-10] MEDS ORDERED: ALBUTEROL NEBULIZED 2.5 MG/3 ML INHALATION PRN (09:57)
[2021-05-10] MEDS ORDERED: METHYL SALICYLATE/MENTHOL CREAM 5 OZ TOPICAL PRN (09:57)
--- NOTE | 2021-05-10 11:08 | CONS ---
CONSULTATION Mrs. Pool is a 80-year-old female with known history of mild to moderate coronary artery disease by cardiac catheterization in 2014, history of moderate aortic stenosis, who presented to the hospital with progressive dyspnea and cough. The patient is not compliant with her salt or diabetes diet. Her hemoglobin A1c has been higher than 10 in the past. Apparently she has been complaining of progressive dyspnea over the last few days. Yesterday she became dyspneic, coughing clear sputum, and came into the emergency room. In the emergency room she had minimal troponin elevation. She had chest discomfort with this coughing but not on a regular basis. She denies any dizziness or palpitations. No syncope. She has progressive dyspnea. Her coronary risk factors are positive for hyperlipidemia, hypertension and diabetes. MEDICATIONS: Her medications at home include: 1. Lisinopril 40 mg daily. 2. Hydralazine 100 mg 3 times a day. 3. Norvasc 5 mg daily. 4. Actos 15 mg daily. 5. Levothyroxine. 6. Lasix 20 mg daily. 7. Iron. 8. Farxiga. 9. Coreg 6.25 mg twice a day. 10.Eliquis 5 mg twice a day for paroxysmal atrial fibrillation. 11.Insulin. 12.Lipitor 80 mg daily. 13.Albuterol. REVIEW OF SYSTEMS: RESPIRATORY SYSTEM: She had dyspnea on exertion, the cough. She has no recent wheezing. GI SYSTEM: No recent GI bleeding. No peptic ulcer disease. SYSTEM: No dysuria or hematuria. NERVOUS SYSTEM: No history of seizure. PAST MEDICAL HISTORY: Past medical history is remarkable for prior history of congestive heart failure with preserved systolic function, history of paroxysmal atrial fibrillation and aortic valve disease. Her left ventricular systolic function has been normal by echocardiography. She had an echocardiogram in March of this year that showed moderate aortic stenosis. PHYSICAL EXAMINATION: This patient is a 80-year-old female, alert, oriented, in no apparent distress. Blood pressure running in the 130s to 160 with a heart rate in the 60s. HEAD: Normocephalic. EYES: Sclerae anicteric. NECK: Good carotid upstroke. No bruit. LUNGS: No wheezes appreciated. HEART: rate and rhythm. S1, S2. No S3, with systolic murmur heard at the bases, ejection type. No diastolic murmur. No rub. ABDOMEN: Soft, obese, nontender. Positive bowel sounds. No organomegaly. EXTREMITIES: Plus one to two edema bilaterally. LAB DATA: Lab data revealed troponin 0.024, 0.045 and 0.039. NT-proBNP of 2410, which is higher than her prior admission. Her potassium is 3.8, white blood cell count 9.7. Her chest x-ray shows bibasilar opacities. Her EKG revealed a sinus mechanism with incomplete right bundle branch block and nonspecific ST-T wave changes. IMPRESSION: 1. Symptoms of progressive dyspnea with evidence of congestive heart failure with preserved systolic function. 2. Mild troponin elevation most likely related to the heart failure. 3. Dietary noncompliance. 4. Mild to moderate coronary artery disease. 5. Diabetes. 6. Hypertension. 7. Hyperlipidemia. RECOMMENDATIONS: I will re-initiate her treatment. I will put her on IV Lasix, continue the rest of her medical regimen, and follow her renal function closely. Depending on her progress, further recommendations will be made. Thank you for this consult. Will follow with you. MMODL / IJN: [id number] /
[2021-05-10 12:05] LABS: Glucose,Whole Blood 223 mg/dL (75-99)
[2021-05-10] MEDS: ACETAMINOPHEN TAB 500 MG TAB PO PRN ×2 (12:19→17:52)
--- NOTE | 2021-05-10 13:56 | P.HPIM ---
History of Present Illness H&P Date: 05/10/21 HISTORY OF PRESENT ILLNESS This is a 80-year-old female patient of Dr. Dawn/Henri Mejía NP and Dr. 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 Amaya May 03 to be established for pain management. Patient had a recent hospitalization in March for acute on chronic diastolic heart failure. Echocardiogram at that time revealed EF of 55-60%, moderate aortic stenosis, moderate mitral regurgitation, mild tricuspid regurgitation, mild pulmonary hypertension. Patient states that she was in her normal state of health until yesterday she started having shortness of breath with cough and clear foamy sputum production. She states the symptoms scared her and she came into the hospital for evaluation. She denies any weight gain and states that her weight has been lorena raleigh at 216 pounds. She denies having any chest pain. Her last heart catheterization was 5 years ago. Patient also complains of pain in her legs with walking. Since last hospitalization, patient has follow-up with outpatient sleep study and found to have severe obstructive sleep apnea hyperlipidemia syndrome with severe oxygen desaturation. Patient presented to [facility] emergency center for evaluation. She is found to be afebrile, heart rate 107, blood pressure 216/85, pulse ox 90% on room air. CBC was unremarkable. Electrolytes normal. BUN 21 creatinine 1.29. Blood sugar 300. Liver function tests revealed alkaline phosphatase 134. Troponin 0.024, 0.045, 0.039. ProBNP 2410. Marin virus not detected. Chest x-ray reveals moderate bibasilar opacities may represent atelectasis, aspiration changes or infiltrates. Patient was admitted to the observation unit and consult with cardiology, patient was started on IV Lasix 40 mg every 12 hours. REVIEW OF SYSTEMS Constitutional: No fever, no chills, no night sweats. No weight change. No weakness, fatigue or lethargy. No daytime sleepiness. EENT: Reported headache. No blurred vision or double vision, no loss of vision. No loss of Hearing, no ringing in the ears, no dizziness. No nasal drainage or congestion. No epistaxis. No sore throat. Lungs: Reported shortness of breath, reports cough, reports sputum production. No wheezing. Cardiovascular: Reported chest pain, positive lower extremity edema. No palpitations. No paroxysmal nocturnal dyspnea. No orthopnea. No light headedness or dizziness. No syncopal episodes. Abdominal: No abdominal pain. No nausea, vomiting. No diarrhea. No constipation. No bloody or tarry stools.. No loss of appetite. Genitourinary: Reported dysuria, no increased frequency, no urgency. No urinary retention. Musculoskeletal: No myalgias. No muscle weakness, no gait dysfunction, no frequent falls. No back pain. No neck pain. Integumentary: No wounds, no lesions. No rash or pruritus. No unusual bruising. No change in hair or nails. Neurologic: No aphasia. No facial droop. No change in mentation. No head injury. No headache. No paralysis. No paresthesia. Psychiatric: No depression. No anxiety. No mood swings. Endocrine: Noted abnormal blood sugars. No weight change. SOCIAL HISTORY Patient is a lifelong nonsmoker but had secondhand smoke exposure with her , no marijuana use, alcohol use, illicit drug use. FAMILY HISTORY Mother at age 90 from CVA with history of Alzheimer's dementia and hypertension. Father at age 72 from leukemia. Patient has one sister that of a brain cancer. Patient has 2 brothers and one has severe diabetes and valvular heart disease. One brother has passed from alcohol and drug related issues. Patient has 2 sons and 2 daughters with no major medical problems. PHYSICAL EXAMINATION Gen: This is a 80-year-old female, obese, patient is sitting on the edge of the bed and appears to be comfortable and in no acute distress. Significant other at the bedside. HEENT: Head is atraumatic, normocephalic. Pupils equal, round. Sclerae is anicteric. NECK: Supple. No JVD. No lymphadenopathy. No thyromegaly. LUNGS: Slightly diminished to bases but otherwise clear to auscultation. No wheezes or rhonchi. No intercostal retractions. HEART: Regular rate and rhythm. 3/6 systolic murmur. ABDOMEN: Soft. Bowel sounds are present. No masses. No tenderness. EXTREMITIES: 1+ bilateral pedal edema. No calf tenderness. Dorsalis pedis +2 bilaterally. NEUROLOGICAL: Patient is awake, alert and oriented x3. Cranial nerves 2 through 12 are grossly intact. ASSESSMENT AND PLAN 1. Acute on chronic diastolic heart failure. Continue Lasix 40 mg IV every 12 hours, monitor I&O and daily weights, monitor renal function and electrolytes, consult with cardiology. 2. Elevated troponins without chest pain, cardiology consult. 3. Diabetes mellitus type 2 uncontrolled with hyperglycemia. Continue Farxiga, Actos 15 mg daily, NovoLog mix 7030 20 units once given in the emergency center, continue NovoLog scale, NovoLog 20 units at bedtime, 40 units with b reakfast. Obtain A1c. 4. Hyperlipidemia. Continue Lipitor 80 mg at bedtime. 5. Paroxysmal atrial fibrillation continue eliquis 5 mg twice daily, Coreg increased to 12.5 mg twice daily. 6. Hypertension hypertensive cardiovascular disease. Continue amlodipine 10 mg daily, Coreg 12.5 mg twice daily, hydralazine 100 mg 3 times daily, lisinopril 40 mg daily. 7. Hypothyroidism. Continue levothyroxine 125 g daily. 8. Diabetic neuropathy. Continue gabapentin 100 mg daily. 9. 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 Continue albuterol nebulizer every 6 hours as needed. 10. Chronic kidney disease stage III. Avoid nephrotoxic agents, monitor kidney function. 11. Obstructive sleep apnea. 12. Degenerative disc disease with chronic pain. Patient has been referred to pain management with her first appointment on May [address] Amaya. 13. Chronic anemia. Continue ferrous sulfate 325 mg daily. 14. Recent treatment for UTI and vaginal yeast infection, stable. 15. GI prophylaxis. Protonix. 16. DVT prophylaxis. Eliquis. Patient will be admitted to the hospital for a minimum of 2 night stay. DISCHARGE PLAN Home Impression and plan of care have been directed as dictated by the signing physician. Bria Muhammad nurse practitioner acting as scribe for signing physician. Past Medical History Past Medical History: Cancer, Pneumonia Additional Past Medical History / Comment(s): Stage III Kidney Disease, hx Pneumonia with Sepsis, no CPAP use, Vitamin D Deficiency, chronic low back pain, frequent constipation, hx skin cancer. History of Any Multi-Drug Resistant Organisms: None Reported Past Surgical History: Heart Catheterization Additional Past Surgical History / Comment(s): Cardiac caths , lap band placed/since removed, low back surgery, L carpal tunnel release X2, skin cancer removal, colonoscopies, bilateral cataract removals/lens implants. Past Anesthesia/Blood Transfusion Reactions: Previous Problems w/ Anesthesia Additional Past Anesthesia/Blood Transfusion Reaction / Comment(s): "Had too much anesthesia in 2007 for lap band removal, had to be bagged." Past Psychological History: No Psychological Hx Reported Additional Psychological History / Comment(s): Pt resides with Brandon Almaraz, brother in law, she is his primary care associate. She is independent. Smoking Status: Never smoker, Second hand smoke exposure Past Alcohol Use History: None Reported Past Drug Use History: None Reported - Past Family History Sister(s) Family Medical History: Myocardial Infarction ([place]) Brother(s) Family Medical History: Cancer Additional Family Medical History / Comment(s): Colon Cancer. Mother Family Medical History: Dementia Additional Family Medical History / Comment(s): Mother of dementia at the age of 89yrs. Father Family Medical History: Cancer Additional Family Medical History / Comment(s): Pt states her father was treated for a sinus infection but really had leukemia and of this at the age of 72 yrs. Medications and Allergies Home Medications Medication Instructions Recorded Confirmed Type Atorvastatin [Lipitor] 80 mg PO HS 06/30/18 05/09/21 History Apixaban [Eliquis] 5 mg PO BID #60 tab 07/04/18 05/09/21 Rx hydrALAZINE HCL [Apresoline] 100 mg PO TID 01/06/19 05/09/21 History lisinopriL 40 mg PO DAILY 01/06/19 05/09/21 History Levothyroxine Sodium [Synthroid] 125 mcg PO DAILY #30 tab 01/08/19 05/09/21 Rx Insulin NPL/Insulin Lispro 20 unit SQ HS 05/30/20 05/09/21 History [humaLOG MIX 75-25 VIAL] Insulin NPL/Insulin Lispro 40 unit SQ W/BRKFST 06/05/20 05/09/21 History [humaLOG MIX 75-25 VIAL] Albuterol Sulfate [Proair Hfa] 2 puff INHALATION RT-Q6H PRN 07/19/20 05/09/21 History Ergocalciferol [Vitamin D2 50,000 unit PO TU 07/19/20 05/09/21 History (DRISDOL)] Pioglitazone [Actos] 15 mg PO DAILY 09/13/20 05/09/21 History Dapagliflozin Propanediol [Farxiga] 10 mg PO DAILY 09/20/20 05/09/21 History Acetaminophen [Tylenol Extra 500 - 1,000 mg PO Q8H PRN 10/14/20 05/09/21 History Strength] Menthol [Biofreeze] 1 applic TOPICAL QID PRN 10/14/20 05/09/21 History Carvedilol [Coreg] 6.25 mg PO BID 04/01/21 05/09/21 History Ferrous Sulfate [Feosol] 325 mg PO DAILY 04/01/21 05/09/21 History Gabapentin [Neurontin] 100 mg PO DAILY 04/01/21 05/09/21 History Furosemide [Lasix] 20 mg PO DAILY #30 tab 04/05/21 05/09/21 Rx amLODIPine [Norvasc] 5 mg PO DAILY #30 tab 04/05/21 05/09/21 Rx Allergies Allergy/AdvReac Type Severity Reaction Status Date / Time azithromycin Allergy Rash/Hives Verified 05/09/21 21:42 [From Zithromax Z-Jeanmarie] methylprednisolone Allergy Rash/Hives Verified 05/09/21 21:42 [From Medrol] trimethoprim [From Bactrim] Allergy Rash/Hives Verified 05/09/21 21:42 hydrochlorothiazide AdvReac lost Verified 05/09/21 21:42 balance and fell sulfamethoxazole AdvReac Rash/Hives Verified 05/09/21 21:42 [From Bactrim] Physical Exam Vitals: Vital Signs Temp Pulse Pulse Resp BP BP Pulse Ox 05/10/21 07:00 98.3 F 64 18 119/68 97 05/10/21 01:37 98.4 F 64 16 164/75 99 05/10/21 01:00 65 18 170/90 98 05/10/21 00:14 97.9 F 65 18 132/61 96 05/09/21 23:02 72 19 168/81 96 05/09/21 22:20 189/92 05/09/21 22:15 88 18 170/112 96 05/09/21 20:36 97.9 F 107 H 18 216/85 90 L Intake and Output 05/09/21 05/10/21 05/10/21 22:59 06:59 14:59 Other: Voiding Method Toilet # Voids 1 Weight 99.337 kg 99.337 kg Results CBC & Chem 7: 05/09/21 21:19 05/09/21 21:19 Labs: Abnormal Lab Results - Last 24 Hours (Table) 05/09/21 05/09/21 05/10/21 Range/Units 21:19 21:19 00:49 MCHC 30.5 L (31.0-37.0) g/dL Monocytes # 1.1 H (0-1.0) k/uL BUN 21 H (7-17) mg/dL Creatinine 1.29 H (0.52-1.04) mg/dL Glucose 300 H (74-99) mg/dL POC Glucose (mg/dL) (75-99) mg/dL Alkaline Phosphatase 134 H (38-126) U/L Troponin I 0.045 H* (0.000-0.034) ng/mL 05/10/21 05/10/21 05/10/21 Range/Units 01:44 04:53 09:05 MCHC (31.0-37.0) g/dL Monocytes # (0-1.0) k/uL BUN (7-17) mg/dL Creatinine (0.52-1.04) mg/dL Glucose (74-99) mg/dL POC Glucose (mg/dL) 109 H 147 H (75-99) mg/dL Alkaline Phosphatase (38-126) U/L Troponin I 0.039 H* (0.000-0.034) ng/mL Thrombosis Risk Factor Assmnt - Choose All That Apply Each Factor Represents 1 point: Abnormal pulmonary function (COPD), Obesity (BMI >25) Each Risk Factor Represents 3 Points: Age 75 years or older Thrombosis Risk Factor Assessment Total Risk Factor Score: 5 Thrombosis Risk Factor Assessment Level: High Risk
[2021-05-10] MEDS ORDERED: BUTALB/APAP/CAFF 50-325-40MG TAB PO PRN (15:03)
[2021-05-10 17:25] LABS: Glucose,Whole Blood 352 mg/dL (75-99)
[2021-05-10] MEDS ORDERED: INSULIN ASPART (NovoLOG) 100 UNIT/ML VIAL SQ ONE (17:47)
[2021-05-10 20:45] LABS: Glucose,Whole Blood 364 mg/dL (75-99)
[2021-05-10] MEDS ORDERED: INSULN ASP PRT/INSULIN ASPART 100 UNIT/ML 10 ML VIAL SQ SCH (21:00)
[2021-05-10] MEDS ORDERED: ATORVASTATIN 80 MG TAB PO SCH (21:00)
[2021-05-10] MEDS: INSULIN ASPART (NovoLOG) 100 UNIT/ML VIAL SQ SCH (21:41)
[2021-05-10 22:23] VITALS: RESP 16
[2021-05-11] MEDS: LEVOTHYROXINE 125 MCG TAB PO SCH (05:42)
[2021-05-11 06:26] LABS: African American GFR (CKD) 37 (>60 ml/min/1.73 sqM); Anion Gap 5 mmol/L; Blood Urea Nitrogen 22 mg/dL (7-17); Calcium 8.5 mg/dL (8.4-10.2); Carbon Dioxide 30 mmol/L (22-30); Chloride 102 mmol/L (98-107); Glucose 247 mg/dL (74-99); Non-African American GFR(CKD) 32 (>60 ml/min/1.73 sqM); Potassium 3.6 mmol/L (3.5-5.1); Sodium 137 mmol/L (137-145)
[2021-05-11 07:14] LABS: Glucose,Whole Blood 256 mg/dL (75-99)
[2021-05-11] MEDS ORDERED: PANTOPRAZOLE 40 MG TABLET PO SCH (07:30)
[2021-05-11] MEDS ORDERED: INSULN ASP PRT/INSULIN ASPART 100 UNIT/ML 10 ML VIAL SQ SCH (07:30)
[2021-05-11] MEDS: ACETAMINOPHEN TAB 500 MG TAB PO PRN (07:48)
[2021-05-11] MEDS: INSULIN ASPART (NovoLOG) 100 UNIT/ML VIAL SQ SCH (07:49)
[2021-05-11] MEDS: hydrALAZINE HCL 50 MG TAB PO SCH (07:50)
[2021-05-11] MEDS: ISOSORBIDE MONONITRATE ER 30 MG TAB.ER.24H PO SCH (07:51)
[2021-05-11] MEDS: APIXABAN 5 MG TAB PO SCH (07:52)
[2021-05-11] MEDS: PIOGLITAZONE 15 MG TAB PO SCH (07:53)
[2021-05-11] MEDS: amLODIPine 5 MG TAB PO SCH (07:53)
[2021-05-11] MEDS: carvediloL 12.5 MG TAB PO SCH (07:53)
[2021-05-11] MEDS: FUROSEMIDE 10 MG/ML 4 ML VIAL IV SCH (07:55)
[2021-05-11 08:18] VITALS: BP 169/76; PULSE 85; TEMP 97.9
[2021-05-11] MEDS ORDERED: lisinopriL 20 MG TAB PO SCH (09:00)
[2021-05-11] MEDS ORDERED: ISOSORBIDE MONONITRATE ER 60 MG TAB.ER.24H PO SCH (09:00)
[2021-05-11] MEDS ORDERED: FERROUS SULFATE 325 MG TAB PO SCH (09:00)
[2021-05-11] MEDS ORDERED: GABAPENTIN 100 MG CAP PO SCH (09:00)
--- NOTE | 2021-05-11 09:54 | P.DS ---
Providers Date of admission: 05/10/21 10:00 Expected date of discharge: 05/11/21 Attending physician: Fritz Mayen Consults: 05/09/21 22:29 Consult Physician Routine Consulting Provider: [facility] Consult Reason/Comments: CHF Do you want consulting provider notified?: Yes, Notify in am Primary care physician: [facility] Course: HISTORY OF PRESENT ILLNESS This is a 80-year-old female patient of Dr. 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 Amaya May 03 to be established for pain management. Patient had a recent hospitalization in March for acute on chronic diastolic heart failure. Echocardiogram at that time revealed EF of 55-60%, moderate aortic stenosis, moderate mitral regurgitation, mild tricuspid regurgitation, mild pulmonary hypertension. Patient states that she was in her normal state of health until yesterday she started having shortness of breath with cough and clear foamy sputum production. She states the symptoms scared her and she came into the hospital for evaluation. She denies any weight gain and states that her weight has been steady at 216 pounds. She denies having any chest pain. Her last heart catheterization was 5 years ago. Patient also complains of pain in her legs with walking. Since last hospitalization, patient has follow-up with outpatient sleep study and found to have severe obstructive sleep apnea hyperlipidemia syndrome with severe oxygen desaturation. Patient presented to [facility] emergency center for evaluati on. She is found to be afebrile, heart rate 107, blood pressure 216/85, pulse ox 90% on room air. CBC was unremarkable. Electrolytes normal. BUN 21 creatinine 1.29. Blood sugar 300. Liver function tests revealed alkaline phosphatase 134. Troponin 0.024, 0.045, 0.039. ProBNP 2410. Marin virus not detected. Chest x-ray reveals moderate bibasilar opacities may represent atelectasis, aspiration changes or infiltrates. Patient was admitted to the observation unit and consult with cardiology, patient was started on IV Lasix 40 mg every 12 hours. 05/11: Patient states that she is feeling much better today. She admits that she did not follow her diet and was eating salt. Her breathing status is improved as well as lower extremity edema. She is a [address] Hernandez this morning and cleared for discharge with plan to follow-up in the office. Repeat blood work reveals normal electrolytes, BUN 22 and creatinine 1.52. Blood sugars are running between 247 and 364. She has been afebrile, heart rate 76, blood pressure 169/76, pulse ox 96% on room air. Will be discharged home today in stable condition. ASSESSMENT AND PLAN 1. Acute on chronic diastolic heart failure. 2. Elevated troponins without chest pain. 3. Diabetes mellitus type 2 uncontrolled with hyperglycemia. 4. Hyperlipidemia. 5. Paroxysmal atrial fibrillation 6. Hypertension hypertensive cardiovascular disease. 7. Hypothyroidism. 8. Diabetic neuropathy. 9. 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 10. Chronic kidney disease stage III. 11. Obstructive sleep apnea. 12. Degenerative disc disease with chronic pain. 13. Chronic anemia. 14. Recent treatment for UTI and vaginal yeast infection, stable. DISCHARGE PLAN Home Impression and plan of care have been directed as dictated by the signing physician. Bria Muhammad nurse practitioner acting as scribe for signing physician. Patient Condition at Discharge: Good Plan - Discharge Summary Discharge Rx Participant: No New Discharge Prescriptions: New carvediloL [Coreg*] 12.5 mg PO BID-W/MEALS #60 tab Isosorbide Mononitrate ER [Imdur] 60 mg PO DAILY #30 tablet Potassium Chloride ER [K-Dur 20] 20 meq PO DAILY #30 tab Furosemide [Lasix] 40 mg PO BID@0900,1600 #60 tab Continue Atorvastatin [Lipitor] 80 mg PO HS Apixaban [Eliquis] 5 mg PO BID #60 tab lisinopriL 40 mg PO DAILY hydrALAZINE HCL [Apresoline] 100 mg PO TID Levothyroxine Sodium [Synthroid] 125 mcg PO DAILY #30 tab Insulin NPL/Insulin Lispro [humaLOG MIX 75-25 VIAL] 20 unit SQ HS Insulin NPL/Insulin Lispro [humaLOG MIX 75-25 VIAL] 40 unit SQ W/BRKFST Albuterol Sulfate [Proair Hfa] 2 puff INHALATION RT-Q6H PRN PRN Reason: Dyspnea Ergocalciferol [Vitamin D2 (DRISDOL)] 50,000 unit PO TU Pioglitazone [Actos] 15 mg PO DAILY Dapagliflozin Propanediol [Farxiga] 10 mg PO DAILY Acetaminophen [Tylenol Extra Strength] 500 - 1,000 mg PO Q8H PRN PRN Reason: Pain Menthol [Biofreeze] 1 applic TOPICAL QID PRN PRN Reason: Pain Ferrous Sulfate [Feosol] 325 mg PO DAILY Gabapentin [Neurontin] 100 mg PO DAILY amLODIPine [Norvasc] 5 mg PO DAILY #30 tab Discontinued Furosemide [Lasix] 20 mg PO DAILY #30 tab Carvedilol [Coreg] 6.25 mg PO BID Discharge Medication List Atorvastatin [Lipitor] 80 mg PO HS 06/30/18 [History] Apixaban [Eliquis] 5 mg PO BID #60 tab 07/04/18 [Rx] hydrALAZINE HCL [Apresoline] 100 mg PO TID 01/06/19 [History] lisinopriL 40 mg PO DAILY 01/06/19 [History] Levothyroxine Sodium [Synthroid] 125 mcg PO DAILY #30 tab 01/08/19 [Rx] Insulin NPL/Insulin Lispro [humaLOG MIX 75-25 VIAL] 20 unit SQ HS 05/30/20 [History] Insulin NPL/Insulin Lispro [humaLOG MIX 75-25 VIAL] 40 unit SQ W/BRKFST 06/05/20 [History] Albuterol Sulfate [Proair Hfa] 2 puff INHALATION RT-Q6H PRN 07/19/20 [History] Ergocalciferol [Vitamin D2 (DRISDOL)] 50,000 unit PO TU 07/19/20 [History] Pioglitazone [Actos] 15 mg PO DAILY 09/13/20 [History] Dapagliflozin Propanediol [Farxiga] 10 mg PO DAILY 09/20/20 [History] Acetaminophen [Tylenol Extra Strength] 500 - 1,000 mg PO Q8H PRN 10/14/20 [History] Menthol [Biofreeze] 1 applic TOPICAL QID PRN 10/14/20 [History] Ferrous Sulfate [Feosol] 325 mg PO DAILY 04/01/21 [History] Gabapentin [Neurontin] 100 mg PO DAILY 04/01/21 [History] amLODIPine [Norvasc] 5 mg PO DAILY #30 tab 04/05/21 [Rx] Furosemide [Lasix] 40 mg PO BID@0900,1600 #60 tab 05/11/21 [Rx] Isosorbide Mononitrate ER [Imdur] 60 mg PO DAILY #30 tablet 05/11/21 [Rx] Potassium Chloride ER [K-Dur 20] 20 meq PO DAILY #30 tab 05/11/21 [Rx] carvediloL [Coreg*] 12.5 mg PO BID-W/MEALS #60 tab 05/11/21 [Rx] Follow up Appointment(s)/Referral(s): Renée Hernandez MD [STAFF PHYSICIAN] - 05/24/21 8:30 am Namita Mejía NPC [Family Provider] - 05/17/21 10:45 am (OFFICE ADDRESS IS [address] [place] [address]. OFFICE PHONE NUMBER IS [phone]) Patient Instructions/Handouts: Heart Failure (DC), Type 2 Diabetes Management for Adults (DC) Discharge Disposition: HOME SELF-CARE
[2021-05-11 10:15] VITALS: BMI 37.5
--- NOTE | 2021-05-11 12:36 | PN ---
PROGRESS NOTE Mrs. Pool is a 80-year-old female who presented with symptoms of progressive dyspnea, peripheral edema. She had evidence of congestive heart failure with preserved systolic function. She has a history of chronic kidney disease. She is feeling much better today. Her breathing is better. She denies any chest pain. She denies any dizziness or palpitations. She denies any nausea. Her peripheral edema is much better. She continues to be at this time on amlodipine 5 mg daily, Eliquis 5 mg twice a day, atorvastatin 80 mg daily, Coreg 12.5 mg twice a day, Lasix 40 mg IV q.12 hours, hydralazine 100 mg 3 times a day, isosorbide mononitrate 30 mg daily, Zestril 40 mg daily, Protonix, and Actos 15 mg daily. PHYSICAL EXAMINATION: Her blood pressure is running in the 120s to 140s with a heart rate in the 70s. LUNGS: No wheezes. HEART: Regular rate and rhythm. S1, S2. No S3, with systolic murmur heard at the base, ejection type, 2/6. No diastolic murmur. No rub. ABDOMEN: Soft, obese, non-tender. EXTREMITIES: Plus one edema, improved compared with yesterday. LAB DATA: BUN and creatinine 22 and 1.52. Potassium 3.6. IMPRESSION: 1. Chest discomfort with preserved systolic function. Patient is noncompliant with her eating habits at home. 2. Troponin elevation, not reflecting an acute coronary syndrome, most likely related to the CHF and chronic kidney disease. 3. Moderate aortic stenosis. 4. Mild to moderate cardiac catheterization in the past. 5. Hypertension. 6. Hyperlipidemia. 7. Diabetes mellitus. 8. Dietary noncompliance with her salt and her carbohydrate intake. RECOMMENDATIONS: I will switch her to oral diuretics, increase her level activity. Patient may need to be evaluated regarding stopping Actos. I will increase the dose of her isosorbide to optimize her blood pressure control. I had a long discussion with her regarding her dietary intake. Will get the input of the dietitian. Follow her renal function. She may be able to be discharged home soon and followed as an outpatient. MMODL / IJN: [id number] /
[2021-05-11] MEDS ORDERED: FUROSEMIDE 40 MG TAB PO SCH (16:00)
== END 2021-05-11 11:18 | disposition home or self-care (01) ==
LOC: EC 20:35 → 6NMEDSUR 22:28 → INTOOBSV 05-10 10:00 → OBSVTOIN 05-10 10:00 → UNDODISIN 05-11 11:18
PROVIDERS: ADMIT Internal Medicine Geriatric Medicine; ATTEND Internal Medicine Geriatric Medicine
DX: I13.0 Hypertensive heart and chronic kidney disease with heart failure and stage 1 through stage 4 chronic kidney disease, or unspecified chronic kidney disease (principal); I50.33 Acute on chronic diastolic (congestive) heart failure; E11.22 Type 2 diabetes mellitus with diabetic chronic kidney disease; N18.30 Chronic kidney disease, stage 3 unspecified; R77.8 Other specified abnormalities of plasma proteins; E11.65 Type 2 diabetes mellitus with hyperglycemia; E78.5 Hyperlipidemia, unspecified; I48.0 Paroxysmal atrial fibrillation; E03.9 Hypothyroidism, unspecified; E11.40 Type 2 diabetes mellitus with diabetic neuropathy, unspecified; J44.9 Chronic obstructive pulmonary disease, unspecified; G47.33 Obstructive sleep apnea (adult) (pediatric); G89.29 Other chronic pain; D64.9 Anemia, unspecified; N39.0 Urinary tract infection, site not specified; B37.3 Candidiasis of vulva and vagina; I25.10 Atherosclerotic heart disease of native coronary artery without angina pectoris; I08.3 Combined rheumatic disorders of mitral, aortic and tricuspid valves; I27.20 Pulmonary hypertension, unspecified; E66.9 Obesity, unspecified; Z68.37 Body mass index [BMI] 37.0-37.9, adult; M54.5 Low back pain; E55.9 Vitamin D deficiency, unspecified; K59.00 Constipation, unspecified; I16.0 Hypertensive urgency; R09.02 Hypoxemia; Z20.822 Contact with and (suspected) exposure to COVID-19; Z91.11 Patient's noncompliance with dietary regimen; Z77.22 Contact with and (suspected) exposure to environmental tobacco smoke (acute) (chronic); Z86.73 Personal history of transient ischemic attack (TIA), and cerebral infarction without residual deficits; Z87.01 Personal history of pneumonia (recurrent); Z85.828 Personal history of other malignant neoplasm of skin; Z79.4 Long term (current) use of insulin; Z79.899 Other long term (current) drug therapy; Z79.890 Hormone replacement therapy; Z79.01 Long term (current) use of anticoagulants; Z96.1 Presence of intraocular lens; Z98.84 Bariatric surgery status; Z91.19 Patient's noncompliance with other medical treatment and regimen; Z88.1 Allergy status to other antibiotic agents; Z88.2 Allergy status to sulfonamides; Z88.8 Allergy status to other drugs, medicaments and biological substances; Z81.8 Family history of other mental and behavioral disorders; Z82.3 Family history of stroke; Z80.0 Family history of malignant neoplasm of digestive organs; Z82.0 Family history of epilepsy and other diseases of the nervous system; Z82.49 Family history of ischemic heart disease and other diseases of the circulatory system; Z83.3 Family history of diabetes mellitus; Z80.6 Family history of leukemia; Z80.8 Family history of malignant neoplasm of other organs or systems
CPT/HCPCS: 96376 ×2; 96374; 96375; 99285; 36415; 94640; 94760 ×2; 93005; 85379; 83880; 80053; 80048; 83735; 84484 ×2; 85025; 85610; 85730; 87635; 71045; G0378 ×3; J0360; J1940 ×3

== ENCOUNTER 2021-05-16 09:21 | Emergency (ER) | payer MEDICARE ==
[2021-05-16 09:26] VITALS: TEMP 97.7
[2021-05-16] MEDS ORDERED: KETOROLAC 15 MG/ML 1 ML VIAL IVP STA (10:14)
--- NOTE | 2021-05-16 10:27 | ED ---
SOB HPI - General Chief Complaint: Shortness of Breath Stated Complaint: ROBBY/headache Time Seen by Provider: 05/16/21 10:02 Source: patient, EMS Mode of arrival: EMS Limitations: no limitations - History of Present Illness Initial Comments: Patient is a 80-year-old female with history of CHF, kidney disease, presenting to emergency Department via EMS this morning with complaints of a headache and difficulty breathing that started this morning. Patient was recently admitted and discharged from this facility for CHF exacerbation. She states she has been doing okay since discharge, has yet to follow up with her PCP or cardiology. She denies any chest pain today. She denies any fevers or chills, no abdominal pain, no nausea or vomiting. Patient states she feels like she is dehydrated because her "skin feels like it's touching her bones." She does have a headache this morning as well, no blurry vision, no dizziness or room spinning. Rates the headache a 5/10. She did take her regular morning medicines, did not take anything for her headache. She states she has been taking her medications as prescribed since being discharged from our facility. She has no further complaints at this time. Upon arrival to the ER, her vital signs are stable. - Related Data Home Medications Medication Instructions Recorded Confirmed Atorvastatin [Lipitor] 80 mg PO HS 06/30/18 05/16/21 hydrALAZINE HCL [Apresoline] 100 mg PO TID 01/06/19 05/16/21 lisinopriL 40 mg PO DAILY 01/06/19 05/16/21 Insulin NPL/Insulin Lispro 20 unit SQ HS 05/30/20 05/16/21 [humaLOG MIX 75-25 VIAL] Insulin NPL/Insulin Lispro 40 unit SQ W/BRKFST 06/05/20 05/16/21 [humaLOG MIX 75-25 VIAL] Albuterol Sulfate [Proair Hfa] 2 puff INHALATION RT-Q6H PRN 07/19/20 05/16/21 Ergocalciferol [Vitamin D2 50,000 unit PO TU 07/19/20 05/16/21 (DRISDOL)] Pioglitazone [Actos] 15 mg PO DAILY 09/13/20 05/16/21 Dapagliflozin Propanediol [Farxiga] 10 mg PO DAILY 09/20/20 05/16/21 Acetaminophen [Tylenol Extra 500 - 1,000 mg PO Q8H PRN 10/14/20 05/16/21 Strength] Menthol [Biofreeze] 1 applic TOPICAL QID PRN 10/14/20 05/16/21 Ferrous Sulfate [Feosol] 325 mg PO DAILY 04/01/21 05/16/21 Gabapentin [Neurontin] 100 mg PO DAILY 04/01/21 05/16/21 Previous Rx's Medication Instructions Recorded Apixaban [Eliquis] 5 mg PO BID #60 tab 07/04/18 Levothyroxine Sodium [Synthroid] 125 mcg PO DAILY #30 tab 01/08/19 amLODIPine [Norvasc] 5 mg PO DAILY #30 tab 04/05/21 Furosemide [Lasix] 40 mg PO BID@0900,1600 #60 tab 05/11/21 Isosorbide Mononitrate ER [Imdur] 60 mg PO DAILY #30 tablet 05/11/21 Potassium Chloride ER [K-Dur 20] 20 meq PO DAILY #30 tab 05/11/21 carvediloL [Coreg*] 12.5 mg PO BID-W/MEALS #60 tab 05/11/21 Allergies Allergy/AdvReac Type Severity Reaction Status Date / Time azithromycin Allergy Rash/Hives Verified 05/16/21 11:00 [From Zithromax Z-Jeanmarie] methylprednisolone Allergy Rash/Hives Verified 05/16/21 11:00 [From Medrol] trimethoprim [From Bactrim] Allergy Rash/Hives Verified 05/16/21 11:00 hydrochlorothiazide AdvReac lost Verified 05/16/21 11:00 balance and fell sulfamethoxazole AdvReac Rash/Hives Verified 05/16/21 11:00 [From Bactrim] Review of Systems ROS Statement: Those systems with pertinent positive or pertinent negative responses have been documented in the HPI. ROS Other: All systems not noted in ROS Statement are negative. Past Medical History Past Medical History: Cancer, Pneumonia Additional Past Medical History / Comment(s): Stage III Kidney Disease, hx Pneumonia with Sepsis, no CPAP use, Vitamin D Deficiency, chronic low back pain, frequent constipation, hx skin cancer. History of Any Multi-Drug Resistant Organisms: None Reported Past Surgical History: Heart Catheterization Additional Past Surgical History / Comment(s): Cardiac caths , lap band placed/since removed, low back surgery, L carpal tunnel release X2, skin cancer removal, colonoscopies, bilateral cataract removals/lens implants. Past Anesthesia/Blood Transfusion Reactions: Previous Problems w/ Anesthesia Additional Past Anesthesia/Blood Transfusion Reaction / Comment(s): "Had too much anesthesia in 2007 for lap band removal, had to be bagged." Past Psychological History: No Psychological Hx Reported Smoking Status: Never smoker, Second hand smoke exposure Past Alcohol Use History: None Reported Past Drug Use History: None Reported - Past Family History Sister(s) Family Medical History: Myocardial Infarction ([place]) Brother(s) Family Medical History: Cancer Additional Family Medical History / Comment(s): Colon Cancer. Mother Family Medical History: Dementia Additional Family Medical History / Comment(s): Mother of dementia at the age of 89yrs. Father Family Medical History: Cancer Additional Family Medical History / Comment(s): Pt states her father was treated for a sinus infection but really had leukemia and of this at the age of 72 yrs. General Exam - General Exam Comments Initial Comments: GENERAL: Patient is well-developed and well-nourished. Patient is nontoxic and in no acute distress. HEAD: Atraumatic, normocephalic. EYES: Pupils equal round and reactive to light, extraocular movements intact, sclera anicteric, conjunctiva are normal. Eyelids were unremarkable. ENT: TMs normal, nares patent, oropharynx clear without exudates. Moist mucous membranes. NECK: Normal range of motion, supple without lymphadenopathy or JVD. LUNGS: Unlabored respirations. Breath sounds clear to auscultation bilaterally and equal. No wheezes rales or rhonchi. HEART: Regular rate and rhythm without murmurs, rubs or gallops. ABDOMEN: Soft, nontender, normoactive bowel sounds. No guarding, no rebound. No masses appreciated. : Deferred MUSCULOSKELETAL: Normal extremities with adequate strength and normal range of motion, no pitting or edema. No clubbing or cyanosis. NEUROLOGICAL: Patient is alert and oriented x 3. Motor and sensory are also intact. Cranial nerves II through XII grossly intact. Symmetrical smile. Normal speech, normal gait. PSYCH: Normal mood, normal affect. SKIN: Warm, Dry, normal turgor, no rashes or lesions noted. Limitations: no limitations Course Vital Signs 05/16/21 05/16/21 05/16/21 09:22 11:37 12:47 Temperature 97.7 F Pulse Rate 68 56 L Respiratory 22 22 18 Rate Blood Pressure 162/70 142/65 O2 Sat by Pulse 98 98 Oximetry Medical Decision Making - Medical Decision Making Patient is a 80-year-old, history CHF, diabetes, hypertension, kidney disease, presenting via EMS with shortness of breath, headache that started this morning. Patient was recently admitted last week for CHF exacerbation. She has yet to follow-up with her PCP or cardiology. She states she has been taking her me dications as prescribed. Her vital signs are stable upon arrival, 98% on room air. No fevers. EKG is stable. Chest x-ray shows an improvement in the patient's volume status as compared to last week. Patient's labs today are unremarkable, normal white count, Trop is WNL, BNP is improved to 1020, creatinine is stable at 1.47. Urine shows no evidence of infection. Patient received pain medicine for her headache. I discussed these findings with her. I recommended that she follow-up with her PCP as well as her design project manager as she was told to. She can continue with the prescribed medications. She is stable for discharge. Return parameters were discussed with her and her and th ey both verbalized understanding. Case discussed with Dr. Jewell. - Lab Data Result diagrams: 05/16/21 11:07 05/16/21 11:07 Lab Results 05/16/21 05/16/21 05/16/21 Range/Units 11:07 11:07 11:07 WBC 8.8 (3.8-10.6) k/uL RBC 3.53 L (3.80-5.40) m/uL Hgb 10.0 L D (11.4-16.0) gm/dL Hct 30.5 L (34.0-46.0) % MCV 86.4 (80.0-100.0) fL MCH 28.4 (25.0-35.0) pg MCHC 32.9 (31.0-37.0) g/dL RDW 14.3 (11.5-15.5) % Plt Count 259 (150-450) k/uL MPV 8.5 Neutrophils % 66 % Lymphocytes % 14 % Monocytes % 10 % Eosinophils % 6 % Basophils % 0 % Neutrophils # 5.8 (1.3-7.7) k/uL Lymphocytes # 1.3 (1.0-4.8) k/uL Monocytes # 0.9 (0-1.0) k/uL Eosinophils # 0.5 (0-0.7) k/uL Basophils # 0.0 (0-0.2) k/uL PT 11.6 (9.0-12.0) sec INR 1.1 (<1.2) APTT 27.1 (22.0-30.0) sec Sodium 140 (137-145) mmol/L Potassium 4.3 (3.5-5.1) mmol/L Chloride 102 (98-107) mmol/L Carbon Dioxide 30 (22-30) mmol/L Anion Gap 8 mmol/L BUN 31 H (7-17) mg/dL Creatinine 1.47 H (0.52-1.04) mg/dL Est GFR (CKD-EPI)AfAm 39 (>60 ml/min/1.73 sqM) Est GFR (CKD-EPI)NonAf 34 (>60 ml/min/1.73 sqM) Glucose 199 H (74-99) mg/dL Plasma Lactic Acid Terry (0.7-2.0) mmol/L Calcium 9.2 (8.4-10.2) mg/dL Magnesium 2.1 (1.6-2.3) mg/dL Total Bilirubin 0.5 (0.2-1.3) mg/dL AST 25 (14-36) U/L ALT 16 (4-34) U/L Alkaline Phosphatase 107 (38-126) U/L Troponin I (0.000-0.034) ng/mL NT-Pro-B Natriuret Pep pg/mL Total Protein 6.5 (6.3-8.2) g/dL Albumin 3.6 (3.5-5.0) g/dL Urine Color Urine Appearance (Clear) Urine pH (5.0-8.0) Ur Specific [place] (1.001-1.035) Urine Protein (Negative) Urine Glucose (UA) (Negative) Urine Ketones (Negative) Urine Blood (Negative) Urine Nitrite (Negative) Urine Bilirubin (Negative) Urine Urobilinogen (<2.0) mg/dL Ur Leukocyte Esterase (Negative) Urine RBC (0-5) /hpf Urine WBC (0-5) /hpf Ur Squamous Epith Cells (0-4) /hpf 05/16/21 05/16/21 05/16/21 Range/Units 11:07 11:07 11:07 WBC (3.8-10.6) k/uL RBC (3.80-5.40) m/uL Hgb (11.4-16.0) gm/dL Hct (34.0-46.0) % MCV (80.0-100.0) fL MCH (25.0-35.0) pg MCHC (31.0-37.0) g/dL RDW (11.5-15.5) % Plt Count (150-450) k/uL MPV Neutrophils % % Lymphocytes % % Monocytes % % Eosinophils % % Basophils % % Neutrophils # (1.3-7.7) k/uL Lymphocytes # (1.0-4.8) k/uL Monocytes # (0-1.0) k/uL Eosinophils # (0-0.7) k/uL Basophils # (0-0.2) k/uL PT (9.0-12.0) sec INR (<1.2) APTT (22.0-30.0) sec Sodium (137-145) mmol/L Potassium (3.5-5.1) mmol/L Chloride (98-107) mmol/L Carbon Dioxide (22-30) mmol/L Anion Gap mmol/L BUN (7-17) mg/dL Creatinine (0.52-1.04) mg/dL Est GFR (CKD-EPI)AfAm (>60 ml/min/1.73 sqM) Est GFR (CKD-EPI)NonAf (>60 ml/min/1.73 sqM) Glucose (74-99) mg/dL Plasma Lactic Acid Terry 1.6 (0.7-2.0) mmol/L Calcium (8.4-10.2) mg/dL Magnesium (1.6-2.3) mg/dL Total Bilirubin (0.2-1.3) mg/dL AST (14-36) U/L ALT (4-34) U/L Alkaline Phosphatase (38-126) U/L Troponin I 0.013 (0.000-0.034) ng/mL NT-Pro-B Natriuret Pep pg/mL Total Protein (6.3-8.2) g/dL Albumin (3.5-5.0) g/dL Urine Color Light Yellow Urine Appearance Cloudy H (Clear) Urine pH 6.0 (5.0-8.0) Ur Specific [place] 1.007 (1.001-1.035) Urine Protein Trace H (Negative) Urine Glucose (UA) Negative (Negative) Urine Ketones Negative (Negative) Urine Blood Negative (Negative) Urine Nitrite Negative (Negative) Urine Bilirubin Negative (Negative) Urine Urobilinogen <2.0 (<2.0) mg/dL Ur Leukocyte Esterase Negative (Negative) Urine RBC <1 (0-5) /hpf Urine WBC 1 (0-5) /hpf Ur Squamous Epith Cells <1 (0-4) /hpf 05/16/21 Range/Units 11:07 WBC (3.8-10.6) k/uL RBC (3.80-5.40) m/uL Hgb (11.4-16.0) gm/dL Hct (34.0-46.0) % MCV (80.0-100.0) fL MCH (25.0-35.0) pg MCHC (31.0-37.0) g/dL RDW (11.5-15.5) % Plt Count (150-450) k/uL MPV Neutrophils % % Lymphocytes % % Monocytes % % Eosinophils % % Basophils % % Neutrophils # (1.3-7.7) k/uL Lymphocytes # (1.0-4.8) k/uL Monocytes # (0-1.0) k/uL Eosinophils # (0-0.7) k/uL Basophils # (0-0.2) k/uL PT (9.0-12.0) sec INR (<1.2) APTT (22.0-30.0) sec Sodium (137-145) mmol/L Potassium (3.5-5.1) mmol/L Chloride (98-107) mmol/L Carbon Dioxide (22-30) mmol/L Anion Gap mmol/L BUN (7-17) mg/dL Creatinine (0.52-1.04) mg/dL Est GFR (CKD-EPI)AfAm (>60 ml/min/1.73 sqM) Est GFR (CKD-EPI)NonAf (>60 ml/min/1.73 sqM) Glucose (74-99) mg/dL Plasma Lactic Acid Terry (0.7-2.0) mmol/L Calcium (8.4-10.2) mg/dL Magnesium (1.6-2.3) mg/dL Total Bilirubin (0.2-1.3) mg/dL AST (14-36) U/L ALT (4-34) U/L Alkaline Phosphatase (38-126) U/L Troponin I (0.000-0.034) ng/mL NT-Pro-B Natriuret Pep 1020 pg/mL Total Protein (6.3-8.2) g/dL Albumin (3.5-5.0) g/dL Urine Color Urine Appearance (Clear) Urine pH (5.0-8.0) Ur Specific [place] (1.001-1.035) Urine Protein (Negative) Urine Glucose (UA) (Negative) Urine Ketones (Negative) Urine Blood (Negative) Urine Nitrite (Negative) Urine Bilirubin (Negative) Urine Urobilinogen (<2.0) mg/dL Ur Leukocyte Esterase (Negative) Urine RBC (0-5) /hpf Urine WBC (0-5) /hpf Ur Squamous Epith Cells (0-4) /hpf - EKG Data EKG Comments: Normal sinus rhythm, minimal voltage criteria for LVH, nonspecific ST abnormality, this is similar to her previous on 05/10/2021. No acute ST segment elevation. Ventricular rate 68, DC interval 148, QTC 438. Disposition Clinical Impression: Shortness of breath, Headache Disposition: HOME SELF-CARE Condition: Stable Instructions (If sedation given, give patient instructions): Dyspnea (ED) Additional Instructions: Please return to the Emergency Department if symptoms worsen or any other concerns. Use inhaler as needed for shortness of breath Take tylenol or motrin for headache. Take medications as already prescribed. Follow-up with your design project manager and primary care Is patient prescribed a controlled substance at d/c from ED?: No Referrals: Dontae Dawn MD [Primary Care Provider] - 1-2 days Time of Disposition: 13:14
--- NOTE | 2021-05-16 11:33 | XR ---
EXAMINATION TYPE: XR chest 2V DATE OF EXAM: 05/16/2021 COMPARISON: Chest x-ray 05/09/2021 HISTORY: Occulta breathing, headache TECHNIQUE: Frontal and lateral views of the chest are obtained. FINDINGS: There is improvement in aeration, visualization of the hemidiaphragms as compared to prior exam. No evident pneumothorax or pleural effusion. Cardiac mediastinal silhouette is within normal l imits. Aorta is dense. There are overlying leads. Possible chondroid lesion present in the proximal m etaphyseal right humerus. Bones are unchanged. Interstitium mildly increased. IMPRESSION: Improvement in aeration, patient's volumes status, findings may represent posttreatment changes or early interstitial edema
[2021-05-16 11:38] LABS: Basophils % (A) 0 %; Eosinophils # (A) 0.5 k/uL (0-0.7); Eosinophils % (A) 6 %; HCT 30.5 % (34.0-46.0); Lymphocytes # (A) 1.3 k/uL (1.0-4.8); Lymphocytes % (A) 14 %; MCH 28.4 pg (25.0-35.0); MCHC 32.9 g/dL (31.0-37.0); MCV 86.4 fL (80.0-100.0); Mean Platelet Volume 8.5; Monocytes # (A) 0.9 k/uL (0-1.0); Monocytes % (A) 10 %; Neutrophils # (A) 5.8 k/uL (1.3-7.7); Neutrophils % (A) 66 %; Platelet Count 259 k/uL (150-450); RBC 3.53 m/uL (3.80-5.40); RDW 14.3 % (11.5-15.5); WBC 8.8 k/uL (3.8-10.6)
[2021-05-16 11:44] LABS: INR 1.1 (<1.2); Partial Thromboplastin Time 27.1 sec (22.0-30.0); Prothrombin Time 11.6 sec (9.0-12.0)
[2021-05-16 11:54] LABS: Appearance,Urine Cloudy (Clear); Bilirubin,Urine Negative (Negative); Blood,Urine Negative (Negative); Color,Urine Light Yellow; Glucose,Urine (UA) Negative (Negative); Ketones,Urine Negative (Negative); Leukocyte Esterase,Urine Negative (Negative); Nitrite,Urine Negative (Negative); Protein,Urine Trace (Negative); RBC,Urine <1 /hpf (0-5); Specific Gravity,Urine 1.007 (1.001-1.035); Squamous Epithelial Cell,Urine <1 /hpf (0-4); Urobilinogen,Urine <2.0 mg/dL (<2.0); WBC,Urine 1 /hpf (0-5)
[2021-05-16 12:01] LABS: Albumin 3.6 g/dL (3.5-5.0); Calcium 9.2 mg/dL (8.4-10.2); Magnesium 2.1 mg/dL (1.6-2.3); Potassium 4.3 mmol/L (3.5-5.1); Total Bilirubin 0.5 mg/dL (0.2-1.3); Total Protein 6.5 g/dL (6.3-8.2)
[2021-05-16] MEDS ORDERED: SODIUM CHLORIDE 0.9% 500 ML 500 ML IV STA (12:29)
[2021-05-16] MEDS ORDERED: MORPHINE SULFATE 2 MG/ML SYRINGE IVP ONE (12:29)
[2021-05-16 12:51] VITALS: BP 142/65; RESP 18
[2021-05-16 13:59] VITALS: PULSE 58
== END 2021-05-16 14:05 | disposition home or self-care (01) ==
LOC: EC 09:21
DX: R06.02 Shortness of breath (principal); R51.9 Headache, unspecified; E11.22 Type 2 diabetes mellitus with diabetic chronic kidney disease; I13.0 Hypertensive heart and chronic kidney disease with heart failure and stage 1 through stage 4 chronic kidney disease, or unspecified chronic kidney disease; N18.30 Chronic kidney disease, stage 3 unspecified; Z79.4 Long term (current) use of insulin; Z79.899 Other long term (current) drug therapy
CPT/HCPCS: 36415; 93005; 83880; 80053; 83605; 83735; 84484; 85025; 85610; 85730; 81001; 71046; 99285; 96374; 96375; 96361; J2270; J1885

== ENCOUNTER 2021-05-17 01:02 | Emergency (ER) | payer MEDICARE ==
--- NOTE | 2021-05-17 01:38 | ED ---
ENT HPI - General Chief complaint: Dental/Oral Stated complaint: tongue laceration Time Seen by Provider: 05/17/21 01:25 Source: patient, RN notes reviewed, old records reviewed Mode of arrival: ambulatory - History of Present Illness Initial comments: This is a 80-year-old female to the emergency department for evaluation patient presents today for evaluation regards to biting her tongue. Patient is having bleeding from her tongue mild. But no other complaints. Patient is recent travel history or sick contacts. No fevers cough or congestion. There is significant bleeding from the mouth but it is slowing down MD complaint: other (Bleeding from tongue) -: hour(s) Location: tongue Consistency: constant Improves with: none Context-Epistaxis: warfarin use, history of similar Context- Ear: other (none) Associated Symptoms: other (none) - Related Data Home Medications Medication Instructions Recorded Confirmed Atorvastatin [Lipitor] 80 mg PO HS 06/30/18 05/16/21 hydrALAZINE HCL [Apresoline] 100 mg PO TID 01/06/19 05/16/21 lisinopriL 40 mg PO DAILY 01/06/19 05/16/21 Insulin NPL/Insulin Lispro 20 unit SQ HS 05/30/20 05/16/21 [humaLOG MIX 75-25 VIAL] Insulin NPL/Insulin Lispro 40 unit SQ W/BRKFST 06/05/20 05/16/21 [humaLOG MIX 75-25 VIAL] Albuterol Sulfate [Proair Hfa] 2 puff INHALATION RT-Q6H PRN 07/19/20 05/16/21 Ergocalciferol [Vitamin D2 50,000 unit PO TU 07/19/20 05/16/21 (DRISDOL)] Pioglitazone [Actos] 15 mg PO DAILY 09/13/20 05/16/21 Dapagliflozin Propanediol [Farxiga] 10 mg PO DAILY 09/20/20 05/16/21 Acetaminophen [Tylenol Extra 500 - 1,000 mg PO Q8H PRN 10/14/20 05/16/21 Strength] Menthol [Biofreeze] 1 applic TOPICAL QID PRN 10/14/20 05/16/21 Ferrous Sulfate [Feosol] 325 mg PO DAILY 04/01/21 05/16/21 Gabapentin [Neurontin] 100 mg PO DAILY 04/01/21 05/16/21 Previous Rx's Medication Instructions Recorded Apixaban [Eliquis] 5 mg PO BID #60 tab 07/04/18 Levothyroxine Sodium [Synthroid] 125 mcg PO DAILY #30 tab 01/08/19 amLODIPine [Norvasc] 5 mg PO DAILY #30 tab 04/05/21 Furosemide [Lasix] 40 mg PO BID@0900,1600 #60 tab 05/11/21 Isosorbide Mononitrate ER [Imdur] 60 mg PO DAILY #30 tablet 05/11/21 Potassium Chloride ER [K-Dur 20] 20 meq PO DAILY #30 tab 05/11/21 carvediloL [Coreg*] 12.5 mg PO BID-W/MEALS #60 tab 05/11/21 Allergies Allergy/AdvReac Type Severity Reaction Status Date / Time azithromycin Allergy Rash/Hives Verified 05/17/21 01:11 [From Zithromax Z-Jeanmarie] methylprednisolone Allergy Rash/Hives Verified 05/17/21 01:11 [From Medrol] trimethoprim [From Bactrim] Allergy Rash/Hives Verified 05/17/21 01:11 hydrochlorothiazide AdvReac lost Verified 05/17/21 01:11 balance and fell sulfamethoxazole AdvReac Rash/Hives Verified 05/17/21 01:11 [From Bactrim] Review of Systems ROS Statement: Those systems with pertinent positive or pertinent negative responses have been documented in the HPI. ROS Other: All systems not noted in ROS Statement are negative. Past Medical History Past Medical History: Cancer, Pneumonia Additional Past Medical History / Comment(s): Stage III Kidney Disease, hx Pneum onia with Sepsis, no CPAP use, Vitamin D Deficiency, chronic low back pain, frequent constipation, hx skin cancer. History of Any Multi-Drug Resistant Organisms: None Reported Past Surgical History: Heart Catheterization Additional Past Surgical History / Comment(s): Cardiac caths , lap band placed/since removed, low back surgery, L carpal tunnel release X2, skin cancer removal, colonoscopies, bilateral cataract removals/lens implants. Past Anesthesia/Blood Transfusion Reactions: Previous Problems w/ Anesthesia Additional Past Anesthesia/Blood Transfusion Reaction / Comment(s): "Had too much anesthesia in 2007 for lap band removal, had to be bagged." Past Psychological History: No Psychological Hx Reported Smoking Status: Never smoker, Second hand smoke exposure Past Alcohol Use History: None Reported Past Drug Use History: None Reported - Past Family History Sister(s) Family Medical History: Myocardial Infarction ([place]) Brother(s) Family Medical History: Cancer Additional Family Medical History / Comment(s): Colon Cancer. Mother Family Medical History: Dementia Additional Family Medical History / Comment(s): Mother of dementia at the age of 89yrs. Father Family Medical History: Cancer Additional Family Medical History / Comment(s): Pt states her father was treated for a sinus infection but really had leukemia and of this at the age of 72 yrs. General Exam General appearance: alert, in no apparent distress Head exam: Present: atraumatic, normocephalic, normal inspection Eye exam: Present: normal appearance, PERRL, EOMI. Absent: scleral icterus, conjunctival injection, periorbital swelling ENT exam: Present: normal exam, mucous membranes moist, other (Patient is bleeding mildly from the tongue) Neck exam: Present: normal inspection. Absent: tenderness, meningismus, lymphadenopathy Respiratory exam: Present: normal lung sounds bilaterally. Absent: respiratory distress, wheezes, rales, rhonchi, stridor Cardiovascular Exam: Present: regular rate, normal rhythm, normal heart sounds. Absent: systolic murmur, diastolic murmur, rubs, gallop, clicks GI/Abdominal exam: Present: soft, normal bowel sounds. Absent: distended, tenderness, guarding, rebound, rigid Extremities exam: Present: normal inspection, full ROM, normal capillary refill. Absent: tenderness, pedal edema, joint swelling, calf tenderness Back exam: Present: normal inspection Neurological exam: Present: alert, oriented X3, CN II-XII intact Psychiatric exam: Present: normal affect, normal mood Skin exam: Present: warm, dry, intact, normal color. Absent: rash Course Vital Signs 05/17/21 05/17/21 01:05 02:19 Temperature 98.6 F 97.6 F Pulse Rate 74 63 Respiratory 19 18 Rate Blood Pressure 198/90 189/83 O2 Sat by Pulse 96 95 Oximetry - Reevaluation(s) Reevaluation #1: Medical record is reviewed Patient symptoms are improved here in the emergency department Patient is informed results and questions answered Patient is in no acute distress Reevaluation #2: Patient encouraged to use ice washes in the tongue and eventually bleeding did stop Medical Decision Making - Medical Decision Making 80 female presented for evaluation of tongue bleeding. Bleeding is improved, symptoms resolved and patient can be discharged home Disposition Clinical Impression: Tongue laceration Disposition: HOME SELF-CARE Condition: Good Instructions (If sedation given, give patient instructions): Laceration (ED) Is patient prescribed a controlled substance at d/c from ED?: No Referrals: Dontae Dawn MD [Primary Care Provider] - 1-2 days
[2021-05-17 02:32] VITALS: BP 189/83; PULSE 63; RESP 18; TEMP 97.6
== END 2021-05-17 02:19 | disposition home or self-care (01) ==
LOC: EC 01:02
DX: S01.512A Laceration without foreign body of oral cavity, initial encounter (principal); R04.0 Epistaxis; Z79.01 Long term (current) use of anticoagulants; Z79.899 Other long term (current) drug therapy; Z88.1 Allergy status to other antibiotic agents; Z88.2 Allergy status to sulfonamides; X58.XXXA Exposure to other specified factors, initial encounter
CPT/HCPCS: 99282

== ENCOUNTER 2021-07-26 10:02 | Inpatient (IN) | payer MEDICARE, OTHER ==
[2021-07-26 10:42] LABS: Glucose,Whole Blood 299 mg/dL (75-99)
[2021-07-26] MEDS ORDERED: SODIUM CHLORIDE 0.9% 500 ML 500 ML IV STA (10:50)
--- NOTE | 2021-07-26 10:52 | ED ---
Dizziness HPI - General Chief Complaint: Syncope Stated Complaint: Syncope Time Seen by Provider: 07/26/21 10:14 Source: patient Mode of arrival: ambulatory Limitations: no limitations - History of Present Illness Initial Comments: 80-year-old female presents emergency department from her eye doctor's office. She states that she went into the office today in order to get a shot in her eye. She was sitting down waiting for her appointment when she said that she didn't feel well. She was having palpitations in her chest. She got up to tell the staff at the facility that she was not feeling well when she ended up having a single episode. She fell, hitting her head and her lumbar spine. She states that she awoke with everyone standing around her. Patient takes Eliquis for afib. She denies having any chest pain or shortness of breath prior to the incident. No headaches or visual changes. Reports to low back pain at this time. No numbness, tingling or weakness into her lower externally is. No changes in bowel or bladder habits. Admits recent medication changes. Was just started on gabapentin on the . States she's been taking medications as directed. No unilateral symptoms. Other alleviating, precipitating or modifying factors - Related Data Home Medications Medication Instructions Recorded Confirmed Atorvastatin [Lipitor] 80 mg PO HS 06/30/18 07/26/21 hydrALAZINE HCL [Apresoline] 100 mg PO TID 01/06/19 07/26/21 lisinopriL 40 mg PO DAILY 01/06/19 07/26/21 Insulin NPL/Insulin Lispro 20 unit SQ W/SUPPER 05/30/20 07/26/21 [humaLOG MIX 75-25 VIAL] Insulin NPL/Insulin Lispro 30 unit SQ W/BRKFST 06/05/20 07/26/21 [humaLOG MIX 75-25 VIAL] Albuterol Sulfate [Proair Hfa] 2 puff INHALATION RT-Q6H PRN 07/19/20 07/26/21 Ergocalciferol [Vitamin D2 50,000 unit PO TU 07/19/20 07/26/21 (DRISDOL)] Pioglitazone [Actos] 15 mg PO DAILY 09/13/20 07/26/21 Acetaminophen [Tylenol Extra 500 - 1,000 mg PO Q8H PRN 10/14/20 07/26/21 Strength] Ferrous Sulfate [Feosol] 325 mg PO DAILY 04/01/21 07/26/21 Gabapentin [Neurontin] 100 mg PO DAILY 04/01/21 07/26/21 Previous Rx's Medication Instructions Recorded Apixaban [Eliquis] 5 mg PO BID #60 tab 07/04/18 Levothyroxine Sodium [Synthroid] 125 mcg PO DAILY #30 tab 01/08/19 amLODIPine [Norvasc] 5 mg PO DAILY #30 tab 04/05/21 Furosemide [Lasix] 40 mg PO BID@0900,1600 #60 tab 05/11/21 Isosorbide Mononitrate ER [Imdur] 60 mg PO DAILY #30 tablet 05/11/21 Potassium Chloride ER [K-Dur 20] 20 meq PO DAILY #30 tab 05/11/21 carvediloL [Coreg*] 12.5 mg PO BID-W/MEALS #60 tab 05/11/21 Allergies Allergy/AdvReac Type Severity Reaction Status Date / Time azithromycin Allergy Rash/Hives Verified 07/26/21 11:52 [From Zithromax Z-Jeanmarie] methylprednisolone Allergy Rash/Hives Verified 07/26/21 11:52 [From Medrol] trimethoprim [From Bactrim] Allergy Rash/Hives Verified 07/26/21 11:52 hydrochlorothiazide AdvReac lost Verified 07/26/21 11:52 balance and fell sulfamethoxazole AdvReac Rash/Hives Verified 07/26/21 11:52 [From Bactrim] Review of Systems ROS Statement: Those systems with pertinent positive or pertinent negative responses have been documented in the HPI. ROS Other: All systems not noted in ROS Statement are negative. Past Medical History Past Medical History: Cancer, Pneumonia Additional Past Medical History / Comment(s): Stage III Kidney Disease, hx Pneumonia with Sepsis, no CPAP use, Vitamin D Deficiency, chronic low back pain, frequent constipation, hx skin cancer. History of Any Multi-Drug Resistant Organisms: None Reported Past Surgical History: Heart Catheterization Additional Past Surgical History / Comment(s): Cardiac caths , lap band placed/since removed, low back surgery, L carpal tunnel release X2, skin cancer removal, colonoscopies, bilateral cataract removals/lens implants. Past Anesthesia/Blood Transfusion Reactions: Previous Problems w/ Anesthesia Additional Past Anesthesia/Blood Transfusion Reaction / Comment(s): "Had too much anesthesia in 2007 for lap band removal, had to be bagged." Past Psychological History: No Psychological Hx Reported Smoking Status: Never smoker, Second hand smoke exposure Past Alcohol Use History: None Reported Past Drug Use History: None Reported - Past Family History Sister(s) Family Medical History: Myocardial Infarction ([place]) Brother(s) Family Medical History: Cancer Additional Family Medical History / Comment(s): Colon Cancer. Mother Family Medical History: Dementia Additional Family Medical History / Comment(s): Mother of dementia at the age of 89yrs. Father Family Medical History: Cancer Additional Family Medical History / Comment(s): Pt states her father was treated for a sinus infection but really had leukemia and of this at the age of 72 yrs. General Exam Limitations: no limitations Course Vital Signs 07/26/21 07/26/21 07/26/21 10:17 11:52 14:09 Temperature 97.8 F Pulse Rate 58 L 57 L 63 Respiratory 18 16 18 Rate Blood Pressure 145/68 128/53 144/70 O2 Sat by Pulse 96 98 99 Oximetry EKG Findings - EKG Comments: EKG Findings:: EKG demonstrates a sinus bradycardia with a ventricular rate of 58. NV interval 140. Distress 126. QTC of 471. Inverted T-wave lead 3. No acute ST segment elevations Medical Decision Making - Medical Decision Making Upon arrival patient is placed into room 7. A thorough history and physical exam was performed. Patient placed on continuous pulse ox and cardiac monitoring. 12-lead EKG is performed which demonstrates a sinus bradycardia. Patient is reporting to back pain. 4 mg of morphine is ordered. Patient is sent for CT of her brain, cervical spine and lumbar spine. Lab results are conducted. Patient has elevation in her glucose which is chronic for the patient's. 4+ glucose in the urine. CT of the head and cervical spine fails to demonstrate any acute findings. CT of the lumbar spine demonstrates postsurgical changes. Artifact at the surgical levels. No acute fracture at remaining levels. Some disc bulge. These results are discussed with the patient. Recommended overnight observation for syncope which he agreed to. [facility] and spoke with Dr. Pastrana who agreed to admit the patient - Lab Data Result diagrams: 07/26/21 11:03 07/26/21 11:03 Lab Results 07/26/21 07/26/21 07/26/21 Range/Units 10:40 11:03 11:03 WBC 8.7 (3.8-10.6) k/uL RBC 4.44 (3.80-5.40) m/uL Hgb 12.7 (11.4-16.0) gm/dL Hct 38.8 (34.0-46.0) % MCV 87.4 (80.0-100.0) fL MCH 28.7 (25.0-35.0) pg MCHC 32.8 (31.0-37.0) g/dL RDW 14.6 (11.5-15.5) % Plt Count 272 (150-450) k/uL MPV 8.5 Neutrophils % 69 % Lymphocytes % 12 % Monocytes % 10 % Eosinophils % 5 % Basophils % 1 % Neutrophils # 6.0 (1.3-7.7) k/uL Lymphocytes # 1.1 (1.0-4.8) k/uL Monocytes # 0.9 (0-1.0) k/uL Eosinophils # 0.4 (0-0.7) k/uL Basophils # 0.0 (0-0.2) k/uL PT 10.8 (9.0-12.0) sec INR 1.0 (<1.2) APTT 24.5 (22.0-30.0) sec Sodium (137-145) mmol/L Potassium (3.5-5.1) mmol/L Chloride (98-107) mmol/L Carbon Dioxide (22-30) mmol/L Anion Gap mmol/L BUN (7-17) mg/dL Creatinine (0.52-1.04) mg/dL Est GFR (CKD-EPI)AfAm (>60 ml/min/1.73 sqM) Est GFR (CKD-EPI)NonAf (>60 ml/min/1.73 sqM) Glucose (74-99) mg/dL POC Glucose (mg/dL) 299 H (75-99) mg/dL POC Glu Sign Builder ID Mag Vidal Calcium (8.4-10.2) mg/dL Magnesium (1.6-2.3) mg/dL Total Bilirubin (0.2-1.3) mg/dL AST (14-36) U/L ALT (4-34) U/L Alkaline Phosphatase (38-126) U/L Troponin I (0.000-0.034) ng/mL Total Protein (6.3-8.2) g/dL Albumin (3.5-5.0) g/dL Urine Color Urine Appearance (Clear) Urine pH (5.0-8.0) Ur Specific [place] (1.001-1.035) Urine Protein (Negative) Urine Glucose (UA) (Negative) Urine Ketones (Negative) Urine Blood (Negative) Urine Nitrite (Negative) Urine Bilirubin (Negative) Urine Urobilinogen (<2.0) mg/dL Ur Leukocyte Esterase (Negative) 07/26/21 07/26/21 07/26/21 Range/Units 11:03 11:03 11:03 WBC (3.8-10.6) k/uL RBC (3.80-5.40) m/uL Hgb (11.4-16.0) gm/dL Hct (34.0-46.0) % MCV (80.0-100.0) fL MCH (25.0-35.0) pg MCHC (31.0-37.0) g/dL RDW (11.5-15.5) % Plt Count (150-450) k/uL MPV Neutrophils % % Lymphocytes % % Monocytes % % Eosinophils % % Basophils % % Neutrophils # (1.3-7.7) k/uL Lymphocytes # (1.0-4.8) k/uL Monocytes # (0-1.0) k/uL Eosinophils # (0-0.7) k/uL Basophils # (0-0.2) k/uL PT (9.0-12.0) sec INR (<1.2) APTT (22.0-30.0) sec Sodium 137 (137-145) mmol/L Potassium 4.5 (3.5-5.1) mmol/L Chloride 101 (98-107) mmol/L Carbon Dioxide 27 (22-30) mmol/L Anion Gap 9 mmol/L BUN 34 H (7-17) mg/dL Creatinine 1.58 H (0.52-1.04) mg/dL Est GFR (CKD-EPI)AfAm 36 (>60 ml/min/1.73 sqM) Est GFR (CKD-EPI)NonAf 31 (>60 ml/min/1.73 sqM) Glucose 295 H (74-99) mg/dL POC Glucose (mg/dL) (75-99) mg/dL POC Glu Sign Builder ID Calcium 9.0 (8.4-10.2) mg/dL Magnesium 2.4 H (1.6-2.3) mg/dL Total Bilirubin 0.4 (0.2-1.3) mg/dL AST 25 (14-36) U/L ALT 20 (4-34) U/L Alkaline Phosphatase 98 (38-126) U/L Troponin I 0.016 (0.000-0.034) ng/mL Total Protein 6.4 (6.3-8.2) g/dL Albumin 3.5 (3.5-5.0) g/dL Urine Color Yellow Urine Appearance Clear (Clear) Urine pH 6.0 (5.0-8.0) Ur Specific [place] 1.006 (1.001-1.035) Urine Protein Trace H (Negative) Urine Glucose (UA) 4+ H (Negative) Urine Ketones Negative (Negative) Urine Blood Negative (Negative) Urine Nitrite Negative (Negative) Urine Bilirubin Negative (Negative) Urine Urobilinogen <2.0 (<2.0) mg/dL Ur Leukocyte Esterase Negative (Negative) Disposition Clinical Impression: Syncope, Lumbar back pain, Concussion Disposition: ADMITTED IP TO THIS [facility] Condition: Stable Is patient prescribed a controlled substance at d/c from ED?: No Referrals: Dontae Dawn MD [Primary Care Provider] - 1-2 days Decision to Admit Reason: Admit from EC Decision Date: 07/26/21 Decision Time: 14:27
[2021-07-26 11:13] LABS: Basophils % (A) 1 %; Eosinophils # (A) 0.4 k/uL (0-0.7); Eosinophils % (A) 5 %; HCT 38.8 % (34.0-46.0); HGB 12.7 gm/dL (11.4-16.0); Lymphocytes # (A) 1.1 k/uL (1.0-4.8); Lymphocytes % (A) 12 %; MCH 28.7 pg (25.0-35.0); MCHC 32.8 g/dL (31.0-37.0); MCV 87.4 fL (80.0-100.0); Mean Platelet Volume 8.5; Monocytes # (A) 0.9 k/uL (0-1.0); Monocytes % (A) 10 %; Neutrophils % (A) 69 %; Platelet Count 272 k/uL (150-450); RBC 4.44 m/uL (3.80-5.40); RDW 14.6 % (11.5-15.5); WBC 8.7 k/uL (3.8-10.6)
[2021-07-26 11:28] LABS: Albumin 3.5 g/dL (3.5-5.0); Magnesium 2.4 mg/dL (1.6-2.3); Potassium 4.5 mmol/L (3.5-5.1); Total Bilirubin 0.4 mg/dL (0.2-1.3); Total Protein 6.4 g/dL (6.3-8.2)
[2021-07-26 11:45] LABS: Partial Thromboplastin Time 24.5 sec (22.0-30.0); Prothrombin Time 10.8 sec (9.0-12.0)
[2021-07-26 11:52] LABS: Appearance,Urine Clear (Clear); Bilirubin,Urine Negative (Negative); Blood,Urine Negative (Negative); Color,Urine Yellow; Glucose,Urine (UA) 4+ (Negative); Ketones,Urine Negative (Negative); Leukocyte Esterase,Urine Negative (Negative); Nitrite,Urine Negative (Negative); Protein,Urine Trace (Negative); Specific Gravity,Urine 1.006 (1.001-1.035); Urobilinogen,Urine <2.0 mg/dL (<2.0)
--- NOTE | 2021-07-26 12:40 | CT ---
EXAMINATION TYPE: CT lumbar spine wo con DATE OF EXAM: 07/26/2021 12:28 PM COMPARISON: None HISTORY: Fall, pain CT DLP: 2075.6 mGycm Automated exposure control for dose reduction was used. Unenhanced CT of the lumbar spine was performed. Bone and soft tissue window settings are submitted as well as coronal and sagittal reconstructions. L1-L2: No obvious canal stenosis or disc herniation. Neural foramina patent. L2-L3: Diffuse disc bulging with hypertrophic change of the facets and ligamentum flavum. There is li rossy degree of Canal stenosis and bilateral foraminal encroachment. L3-L4: Facet arthropathy with diffuse disc bulging and ligamentum flavum hypertrophy. Although there is artifact from the postsurgical metallic hardware and suspected canal stenosis. L4-L5: Nondiagnostic assessment of the spinal canal due to artifact. Postsurgical changes are seen. L5-S1: Nondiagnostic assessment spinal canal due to artifact. Neural foramina patent. There is bilateral SI joint arthropathy. Soft tissue ossification is seen adjacent to the lateral mar gin of the left iliac bone with deformity appears to be related to prior surgery. No obvious acute fr acture. IMPRESSION: 1. Postsurgical change with nondiagnostic assessment due to artifact at the surgical levels. 2. Remaining levels demonstrate no acute fracture. Disc bulging and hypertrophic changes L2-3 and L3- 4 likely result in canal stenosis and foraminal encroachment. Short-term follow-up MRI recommended.
--- NOTE | 2021-07-26 12:43 | CT ---
EXAMINATION TYPE: CT brain stefani ayala con DATE OF EXAM: 07/26/2021 COMPARISON: None HISTORY: Fall, syncopal episode CT DLP: 1553 mGycm, Automated exposure control for dose reduction was used. CONTRAST: Patient injected with 0 mL of Isovue 300. CT of the brain is performed utilizing 3 mm thick sections through the posterior fossa and 3 mm thick sections through the remaining calvarium. Study is performed within 24 hours of arrival to the hospital. No abnormal hyperdensity is present to suggest an acute intracranial hemorrhage. No mass lesion is evident. No acute infarcts are evident. Mild periventricular white matter hypodensity is present, likely on t he basis of chronic white matter ischemic change. Ventricles and sulci are slightly prominent for the patient age. Paranasal sinuses and mastoid air cells within the [id number] are clear. IMPRESSIONS: 1. Mild atrophy chronic appearing periventricular white matter ischemic changes. CT cervical spine. COMPARISON: None CT of the cervical spine is performed in the axial plane at 2 mm thick sections. Reconstructed image s in the coronal, and sagittal plane are reviewed on the computer. No acute fractures are evident. There is slight diffuse kyphosis to the cervical spine. There is narrowing of disc height within the lower cervical spine Vertebral body heights are preserved. No spinal canal stenosis is evident. There is uncovertebral joint hypertrophy at C3-4 with mild foraminal narrowing. Uncovertebral joint h ypertrophy is present C4-5 causing right foraminal narrowing. Bilateral uncovertebral joint spur roque ges present C6-7 with moderate foraminal narrowing. IMPRESSIONS: 1. Cervical kyphosis. 2. Degenerative uncovertebral joint hypertrophy contributing to foraminal narrowing. 3. No acute osseous abnormality
--- NOTE | 2021-07-26 13:27 | XR ---
EXAMINATION TYPE: XR chest 2V DATE OF EXAM: 07/26/2021 COMPARISON: 05/16/2021 TECHNIQUE: PA and lateral views submitted. HISTORY: Syncope FINDINGS: The lungs are clear and there is no pneumothorax, pleural effusion, or focal pneumonia. Heart is en larged and there is atherosclerotic change aorta with arthropathy shoulders. 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 Calcified or ossific density in the left ax illa could be associated with calcified lymph node or synovial chondromatosis. IMPRESSION: 1. Cardiomegaly, correlate for chronic interstitial lung disease. Findings stable.
[2021-07-26] MEDS ORDERED: MORPHINE SULFATE 4 MG/ML SYRINGE IVP STA (13:51)
[2021-07-26] MEDS ORDERED: MORPHINE SULFATE 4 MG/ML SYRINGE IV PRN (14:27)
[2021-07-26] MEDS ORDERED: NALOXONE 0.4 MG/ML 1 ML VIAL IV PRN (14:27)
[2021-07-26] MEDS ORDERED: ALBUTEROL NEBULIZED 2.5 MG/3 ML INHALATION PRN (19:45)
[2021-07-26 20:26] LABS: Glucose,Whole Blood 303 mg/dL (75-99)
[2021-07-26] MEDS: INSULIN ASPART (NovoLOG) 100 UNIT/ML VIAL SQ SCH (20:31)
[2021-07-26] MEDS: traMADol 50 MG TAB PO PRN (20:31)
[2021-07-26] MEDS: carvediloL 12.5 MG TAB PO SCH (20:32)
[2021-07-26] MEDS: APIXABAN 5 MG TAB PO SCH (20:32)
[2021-07-26] MEDS: ATORVASTATIN 80 MG TAB PO SCH (20:32)
[2021-07-26] MEDS: SODIUM CHLORIDE 0.9% 1,000 ML IV SCH (20:33)
[2021-07-26] MEDS: hydrALAZINE HCL 50 MG TAB PO SCH (20:33)
[2021-07-26] MEDS ORDERED: traMADol 50 MG TAB PO SCH (22:00)
[2021-07-27] MEDS: LEVOTHYROXINE 125 MCG TAB PO SCH (05:45)
[2021-07-27 07:03] LABS: Glucose,Whole Blood 232 mg/dL (75-99)
[2021-07-27] MEDS: ALPRAZolam 0.25 MG TAB PO PRN ×2 (08:26→20:37)
[2021-07-27] MEDS: lisinopriL 20 MG TAB PO SCH (08:27)
[2021-07-27] MEDS: traMADol 50 MG TAB PO PRN ×2 (08:27→13:19)
[2021-07-27] MEDS: carvediloL 12.5 MG TAB PO SCH ×2 (08:27→17:42)
[2021-07-27] MEDS: INSULIN ASPART (NovoLOG) 100 UNIT/ML VIAL SQ SCH ×4 (08:29→20:35)
[2021-07-27] MEDS: hydrALAZINE HCL 50 MG TAB PO SCH ×3 (08:29→20:37)
[2021-07-27] MEDS ORDERED: ISOSORBIDE MONONITRATE ER 60 MG TAB.ER.24H PO SCH (09:00)
[2021-07-27] MEDS ORDERED: amLODIPine 5 MG TAB PO SCH (09:00)
[2021-07-27] MEDS: APIXABAN 5 MG TAB PO SCH ×2 (09:35→20:36)
[2021-07-27] MEDS: FERROUS SULFATE 325 MG TAB PO SCH (09:35)
[2021-07-27] MEDS: POTASSIUM CHLORIDE ER 20 MEQ TAB.ER PO SCH (09:35)
[2021-07-27] MEDS: SODIUM CHLORIDE 0.9% 1,000 ML IV SCH (09:36)
[2021-07-27 09:41] LABS: HCT 38.2 % (37.2-46.3); HGB 11.2 g/dL (12.0-15.0); MCH 26.9 pg (27.0-32.0); MCHC 29.3 g/dL (32.0-37.0); MCV 91.6 fL (80.0-97.0); Mean Platelet Volume 10.9 fL (9.5-12.2); Platelet Count 265 X 10*3/uL (140-440); RBC 4.17 X 10*6/uL (4.10-5.20); RDW 14.5 % (11.5-14.5); WBC 11.81 X 10*3/uL (4.50-10.00)
--- NOTE | 2021-07-27 09:54 | P.CRDCN ---
History of Present Illness History of present illness: HISTORY OF PRESENTING ILLNESS Patient is a pleasant 80-year-old female with history of paroxysmal atrial fibrillation (on eliquis), hypertension, hyperlipidemia, COPD, diabetes mellitus type 2, hypothyroidism, prior CVA, chronic kidney disease, nonobstructive coronary artery disease by prior heart catheterization 2014, obstructive sleep apnea, diastolic heart failure with ejection fraction 55-60% and moderate aortic stenosis. Patient normally follows with Dr. Hernandez. We are consulted for syncope. Patient states she was at her eye doctor appointment. She was sitting in doctors office, she took all of her scheduled morning medication at once, about 30 minutes later she felt dizzy, she proceeded to stand to walk to the assistant front desk manager to tell staff she was not feeling well. She then fell to the ground. Unknown downtime. She woke up to everyone standing around her. Changes to her medications include starting gabapentin in June. She denies any chest pain, shortness of breath, nausea, vomiting, abdominal pain, fever, cough, chills. Denies symptoms of orthopnea or PND. DIAGNOSTICS: -EKG sinus bradycardia, heart rate 58, T wave inversion in lead III, no significant ST-T wave abnormalities. prior EKGs with similar findings. -Telemetry sinus mechanism, heart rate 58-70s, no significant arrhythmia or pauses. -Recent 24-hour Holter monitor 05/2021 in the office revealed baseline sinus rhythm, minimum heart rate 48, maximum heart rate 96, no pauses greater than 2 seconds, no supraventricular events. Total 45 PVCs, no malignant arrhythmias present, no episodes of nonsustained ventricular tachycardia more than 4 beats. -Chest x-ray chronic interstitial lung disease. lumbar spine CT revealed postsurgical change with nondiagnostic assessment. No acute fracture. Disposition hypertrophic changes L2-3 and L3-4 likely resulting canal stenosis and foraminal encroachment -CT brain- cervical kyphosis, degenerative uncovertbral joint hypertrophy contributing to foraminal narrowing -Echocardiogram 03/2021 EF 5560 percent, grade 2 diastolic dysfunction, moderate aortic stenosis the peak/mean gradient of 60 mmHg, 35 mmHg, moderate mitral regurgitation, mild tricuspid regurgitation, mild pulmonary hypertension with RVSP of 39 mmHg -labs, troponin negative 1, sodium 137, potassium 4.5, BUN 34, serum creatinine 1.5, magnesium 2.4, creatinine 19 PCR negative, WBC 11.8, hemoglobin 11.2, platelets 265 REVIEW OF SYSTEMS At the time of my exam: CONSTITUTIONAL: Denies fever or chills. +syncope +dizziness CARDIOVASCULAR: Denies chest pain, shortness of breath, orthopnea, no PND or palpitations. RESPIRATORY: Denies cough. GASTROINTESTINAL: Denies abdominal pain, diarrhea, constipation, nausea or vomiting. MUSCULOSKELETAL: Denies myalgias. NEUROLOGIC: Denies numbness, tingling or weakness. ENDOCRINE: Denies fatigue, polydipsia or polyurina. GENITOURINARY: Denies burning, hematuria or urgency with micturation. HEMATOLOGIC: Denies history of anemia or bleeding. PHYSICAL EXAMINATION Vital signs reviewed. CONSTITUTIONAL: No apparent distress, obese HEENT: Head is normocephalic. Pupils are equal, round. Sclerae anicteric. Mucous membranes of the mouth are moist. No JVD. No carotid bruit. CHEST EXAMINATION: Lungs clear to auscultation bilaterally HEART EXAMINATION: Regular rate and rhythm. S1, S2 heard. systolic ejection murmur right sternal border and apex, no gallops or rub. ABDOMEN: Soft, nontender. Positive bowel sounds. EXTREMITIES: 2+ peripheral pulses, trace bilateral lower extremity edema and no calf tenderness. NEUROLOGIC EXAMINATION: Patient is awake, alert and oriented x3. ASSESSMENT Syncopal episode, likely vasovagal, also possibly related to taking all her medications in the morning at once Paroxysmal atrial fibrillation, currently normal sinus rhythm COPD Hypertension Hyperlipidemia Nonobstructive coronary artery disease by prior heart catheterization 2014 Obstructive sleep apnea Chronic kidney disease Diabetes mellitus type 2 Moderate aortic stenosis Moderate mitral regurgitation PLAN Syncopal episode likely vasovagal, and possibly related to taking all her cardiac medications at once. Discontinue Imdur Change amlodipine 5mg to night time Continue Eliquis, statin, hydralazine, lisinopril. Continue cardiac telemetry Further recommendations based on clinical course Past Medical History Past Medical History: Cancer, Pneumonia Additional Past Medical History / Comment(s): Stage III Kidney Disease, hx Pneumonia with Sepsis, no CPAP use, Vitamin D Deficiency, chronic low back pain, frequent constipation, hx skin cancer. History of Any Multi-Drug Resistant Organisms: None Reported Past Surgical History: Heart Catheterization Additional Past Surgical History / Comment(s): Cardiac caths , lap band placed/since removed, low back surgery, L carpal tunnel release X2, skin cancer removal, colonoscopies, bilateral cataract removals/lens implants. 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 She is independent. Smoking Status: Never smoker, Second hand smoke exposure Past Alcohol Use History: None Reported Past Drug Use History: None Reported - Past Family History Sister(s) Family Medical History: Myocardial Infarction ([place]) Brother(s) Family Medical History: Cancer Additional Family Medical History / Comment(s): Colon Cancer. Mother Family Medical History: Dementia Additional Family Medical History / Comment(s): Mother of dementia at the age of 89yrs. Father Family Medical History: Cancer Additional Family Medical History / Comment(s): Pt states her father was treated for a sinus infection but really had leukemia and of this at the age of 72 yrs. Medications and Allergies Home Medications Medication Instructions Recorded Confirmed Type Atorvastatin [Lipitor] 80 mg PO HS 06/30/18 07/26/21 History Apixaban [Eliquis] 5 mg PO BID #60 tab 07/04/18 07/26/21 Rx hydrALAZINE HCL [Apresoline] 100 mg PO TID 01/06/19 07/26/21 History lisinopriL 40 mg PO DAILY 01/06/19 07/26/21 History Levothyroxine Sodium [Synthroid] 125 mcg PO DAILY #30 tab 01/08/19 07/26/21 Rx Insulin NPL/Insulin Lispro 20 unit SQ W/SUPPER 05/30/20 07/26/21 History [humaLOG MIX 75-25 VIAL] Insulin NPL/Insulin Lispro 30 unit SQ W/BRKFST 06/05/20 07/26/21 History [humaLOG MIX 75-25 VIAL] Albuterol Sulfate [Proair Hfa] 2 puff INHALATION RT-Q6H PRN 07/19/20 07/26/21 History Ergocalciferol [Vitamin D2 50,000 unit PO TU 07/19/20 07/26/21 History (DRISDOL)] Pioglitazone [Actos] 15 mg PO DAILY 09/13/20 07/26/21 History Acetaminophen [Tylenol Extra 500 - 1,000 mg PO Q8H PRN 10/14/20 07/26/21 History Strength] Ferrous Sulfate [Feosol] 325 mg PO DAILY 04/01/21 07/26/21 History Gabapentin [Neurontin] 100 mg PO DAILY 04/01/21 07/26/21 History amLODIPine [Norvasc] 5 mg PO DAILY #30 tab 04/05/21 07/26/21 Rx Furosemide [Lasix] 40 mg PO BID@0900,1600 #60 tab 05/11/21 07/26/21 Rx Isosorbide Mononitrate ER [Imdur] 60 mg PO DAILY #30 tablet 05/11/21 07/26/21 Rx Potassium Chloride ER [K-Dur 20] 20 meq PO DAILY #30 tab 05/11/21 07/26/21 Rx carvediloL [Coreg*] 12.5 mg PO BID-W/MEALS #60 tab 05/11/21 07/26/21 Rx Allergies Allergy/AdvReac Type Severity Reaction Status Date / Time azithromycin Allergy Rash/Hives Verified 07/26/21 11:52 [From Zithromax Z-Jeanmarie] methylprednisolone Allergy Rash/Hives Verified 07/26/21 11:52 [From Medrol] trimethoprim [From Bactrim] Allergy Rash/Hives Verified 07/26/21 11:52 hydrochlorothiazide AdvReac lost Verified 07/26/21 11:52 balance and fell sulfamethoxazole AdvReac Rash/Hives Verified 07/26/21 11:52 [From Bactrim] Physical Exam Vitals: Vital Signs Temp Pulse Pulse Resp BP BP Pulse Ox 07/27/21 03:50 67 07/27/21 02:29 98.4 F 70 16 144/70 95 07/26/21 19:16 98.3 F 72 16 177/82 98 07/26/21 18:26 98.4 F 67 18 150/71 98 07/26/21 14:09 63 18 144/70 99 07/26/21 11:52 57 L 16 128/53 98 07/26/21 10:17 97.8 F 58 L 18 145/68 96 Intake and Output 07/26/21 07/27/21 07/27/21 22:59 06:59 14:59 Other: Voiding Method Bedside Commode # Voids 1 3 Weight 97.522 kg Results 07/27/21 06:48 07/26/21 11:03 Cardiac Enzymes 07/26/21 07/26/21 Range/Units 11:03 11:03 AST 25 (14-36) U/L Troponin I 0.016 (0.000-0.034) ng/mL Coagulation 07/26/21 Range/Units 11:03 PT 10.8 (9.0-12.0) sec APTT 24.5 (22.0-30.0) sec CBC 07/26/21 Range/Units 11:03 WBC 8.7 (3.8-10.6) k/uL RBC 4.44 (3.80-5.40) m/uL Hgb 12.7 (11.4-16.0) gm/dL Hct 38.8 (34.0-46.0) % Plt Count 272 (150-450) k/uL Comprehensive Metabolic Panel 07/26/21 Range/Units 11:03 Sodium 137 (137-145) mmol/L Potassium 4.5 (3.5-5.1) mmol/L Chloride 101 (98-107) mmol/L Carbon Dioxide 27 (22-30) mmol/L BUN 34 H (7-17) mg/dL Creatinine 1.58 H (0.52-1.04) mg/dL Glucose 295 H (74-99) mg/dL Calcium 9.0 (8.4-10.2) mg/dL AST 25 (14-36) U/L ALT 20 (4-34) U/L Alkaline Phosphatase 98 (38-126) U/L Total Protein 6.4 (6.3-8.2) g/dL Albumin 3.5 (3.5-5.0) g/dL Current Medications Generic Name Dose Route Start Last Admin Trade Name Freq PRN Reason Stop Dose Admin Acetaminophen 1,000 mg 07/26/21 19:45 Acetaminophen Tab 500 Mg Tab PO Q8H PRN Pain Albuterol Sulfate 2.5 mg 07/26/21 19:45 Albuterol Nebulized 2.5 Mg/3 Ml INHALATION RT-Q6H PRN Dyspnea Amlodipine Besylate 5 mg 07/27/21 09:00 Amlodipine 5 Mg Tab PO DAILY [facility] Apixaban 5 mg 07/26/21 21:00 07/26/21 20:32 Apixaban 5 Mg Tab PO 5 mg BID [facility] Administration Protocol Atorvastatin Calcium 80 mg 07/26/21 21:00 07/26/21 20:32 Atorvastatin 80 Mg Tab PO 80 mg HS [facility] Administration Carvedilol 12.5 mg 07/26/21 20:00 07/26/21 20:32 Carvedilol 12.5 Mg Tab PO 12.5 mg BID-W/MEALS [facility] Administration Ergocalciferol 1,250 mcg 08/02/21 09:00 Ergocalciferol 1,250 Mcg (50,000 Iu) Capsule PO TU [facility] Ferrous Sulfate 325 mg 07/27/21 09:00 Ferrous Sulfate 325 Mg Tab PO DAILY [facility] Hydralazine HCl 100 mg 07/26/21 22:00 07/26/21 20:33 Hydralazine Hcl 50 Mg Tab PO 100 mg TID [facility] Administration Sodium Chloride 1,000 mls @ 75 mls/hr 07/26/21 20:00 07/26/21 20:33 Saline 0.9% IV 75 mls/hr .[id number] [facility] Administration Insulin Aspart 0 unit 07/26/21 21:00 07/26/21 20:31 Insulin Aspart (Novolog) 100 Unit/Ml Vial SQ 5 unit ACHS [facility] Administration Protocol Isosorbide Mononitrate 60 mg 07/27/21 09:00 Isosorbide Mononitrate Er 60 Mg Tab.Er.24h PO DAILY [facility] Levothyroxine Sodium 125 mcg 07/27/21 06:30 07/27/21 05:45 Levothyroxine 125 Mcg Tab PO 125 mcg 0630 [facility] Administration Morphine Sulfate 4 mg 07/26/21 14:27 Morphine Sulfate 4 Mg/Ml Syringe IV Q4HR PRN Severe Pain Naloxone HCl 0.2 mg 07/26/21 14:27 Naloxone 0.4 Mg/Ml 1 Ml Vial IV Q2M PRN Opioid Reversal Potassium Chloride 20 meq 07/27/21 09:00 Potassium Chloride Er 20 Meq Tab.Er PO DAILY [facility] Tramadol HCl 50 mg 07/26/21 20:19 07/26/21 20:31 Tramadol 50 Mg Tab PO 50 mg QID PRN Administration Mild to Moderate Pain Intake and Output 07/26/21 07/27/2121 22:59 06:59 14:59 Other: Voiding Method Bedside Commode # Voids 1 3 Weight 97.522 kg 07/26/21 11:03 07/26/21 11:03
[2021-07-27 10:26] LABS: Anion Gap 11.2 mmol/L (10.00-18.00); Blood Urea Nitrogen 28.5 mg/dL (9.0-27.0); Calcium 8.2 mg/dL (8.7-10.3); Carbon Dioxide 23.8 mmol/L (20.0-27.5); Non-African American GFR(CKD) 32.8 (60.0-200.0); Potassium 4.3 mmol/L (3.5-5.5)
[2021-07-27 10:42] LABS: Basophils # (A) 0.04 X 10*3/uL (0.00-0.10); Basophils % (A) 0.3 %; Eosinophils # (A) 0.37 X 10*3/uL (0.04-0.35); Eosinophils % (A) 3.1 %; Lymphocytes # (A) 1.65 X 10*3/uL (0.90-5.00); Monocytes # (A) 1.83 X 10*3/uL (0.20-1.00); Monocytes % (A) 15.5 %; Neutrophils # (A) 7.73 X 10*3/uL (1.80-7.70); Neutrophils % (A) 65.5 %
[2021-07-27] MEDS: INSULN ASP PRT/INSULIN ASPART 100 UNIT/ML 10 ML VIAL SQ SCH ×2 (11:33→17:42)
[2021-07-27] MEDS: PIOGLITAZONE 15 MG TAB PO SCH (11:34)
[2021-07-27 12:22] LABS: Glucose,Whole Blood 239 mg/dL (75-99)
--- NOTE | 2021-07-27 13:41 | P.HPIM ---
History of Present Illness H&P Date: 07/27/21 HISTORY OF PRESENT ILLNESS This is a 80-year-old female patient of Dr. Dawn/Henri Mejía NP and Dr. 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 Amaya for pain management. Asked hospitalization was in March 2021 for acute on chronic diastolic heart failure. At that time echocardiogram revealed EF of 55-60% with severe concentric left ventricular hypertrophy, moderate aortic stenosis, moderate mitral regurgitation, mild tricuspid regurgitation, mild pulmonary hypertension. Patient was at her eye doctor yesterday and was waiting for her appointment, didn't feel well and was having palpitations in her chest. Patient had a fall hitting her head and her lumbar spine with loss of consciousness. Patient was recently started on gabapentin on Patient presented to [facility] emergency center for evaluation. She is found to be afebrile, heart rate in the 50s and 60s, blood pressure initially 145/68 and pulse ox 96% on room air. This morning, blood pressure was 213/89 and orthostatics were negative. EKG was sinus bradycardia with left ventricular hypertrophy. CBC was unremarkable. INR 1.0. Electrolytes normal. BUN 34 and creatinine 1.58, this is patient's baseline. Blood sugar 295. Magnesium 2.4. Liver function tests were normal. Troponin negative. Urinalysis glucose 4+. No sign of infection. [place] virus PCR not detected. Chest x-ray reveals cardiomegaly, correlate for chronic interstitial lung disease. CAT scan of the brain and cervical spine revealed mild atrophy chronic appearing periventricular white matter ischemic changes. Cervical kyphosis. Degenerative non-cold vertebral joint hypertrophy contributing to foraminal narrowing. No acute osseous abnormality. Lumbar spine CAT scan revealed postsurgical change with nondiagnostic assessment due to artifact at the surgical levels. Remaining levels demonstrate no acute fracture. Disc bulging and hypertrophic changes L2-3 and L3-4 likely result in canal stenosis and foraminal encroachment. Short-term follow-up MRI recommended. She placed on the observation unit, consult with cardiology and medication changes were made to Norvasc changed to bedtime and discontinued Imdur, hold Lasix. Patient is quite upset at the time of evaluation because her significant other is in the emergency center and had a syncopal episode with underlying dementia. Xanax was started. REVIEW OF SYSTEMS Constitutional: No fever, no chills, no night sweats. No weight change. No weakness, fatigue or lethargy. No daytime sleepiness. EENT: Reported headache. No blurred vision or double vision, no loss of vision. No loss of Hearing, no ringing in the ears, no dizziness. No nasal drainage or congestion. No epistaxis. No sore throat. Lungs: Reported shortness of breath, no cough, no sputum production. No wheezing. Cardiovascular: Reported chest pain, positive lower extremity edema. No palpitations. No paroxysmal nocturnal dyspnea. No orthopnea. No ligh theadedness or dizziness. Reports syncopal episodes. Abdominal: No abdominal pain. No nausea, vomiting. No diarrhea. No constipation. No bloody or tarry stools. No loss of appetite. Genitourinary: Reported dysuria, no increased frequency, no urgency. No urinary retention. Musculoskeletal: No myalgias. No muscle weakness, no gait dysfunction, no frequent falls. No back pain. No neck pain. Integumentary: No wounds, no lesions. No rash or pruritus. No unusual bruising. No change in hair or nails. Neurologic: No aphasia. No facial droop. No change in mentation. No head injury. No headache. No paralysis. No paresthesia. Psychiatric: No depression. Reports anxiety. No mood swings. Endocrine: Noted abnormal blood sugars. No weight change. SOCIAL HISTORY Patient is a lifelong nonsmoker but had secondhand smoke exposure with her , no marijuana use, alcohol use, illicit drug use. FAMILY HISTORY Mother at age 90 from CVA with history of Alzheimer's dementia and hypertension. Father at age 72 from leukemia. Patient has one sister that of a brain cancer. Patient has 2 brothers and one has severe diabetes and valvular heart disease. One brother has passed from alcohol and drug related issues. Patient has 2 sons and 2 daughters with no major medical problems. PHYSICAL EXAMINATION Gen: This is a 80-year-old female, obese, patient is sitting on the edge of the bed and appears to be in no acute respiratory distress. Patient is very anxious. HEENT: Head is atraumatic, normocephalic. Pupils equal, round. Sclerae is anicteric. NECK: Supple. No JVD. No lymphadenopathy. No thyromegaly. LUNGS: Slightly diminished to bases but otherwise clear to auscultation. No wheezes or rhonchi. No intercostal retractions. HEART: Regular rate and rhythm. 3/6 systolic murmur. ABDOMEN: Soft. Bowel sounds are present. No masses. No tenderness. EXTREMITIES: 1+ bilateral pedal edema. No calf tenderness. Dorsalis pedis +2 bilaterally. NEUROLOGICAL: Patient is awake, alert and oriented x3. Cranial nerves 2 through 12 are grossly intact. ASSESSMENT AND PLAN 1. Syncopal episode most likely vasovagal. Cardiology consult appreciated. Amlodipine changed to dosing at bedtime and Imdur were discontinued, Lasix on hold. Continue lisinopril 40 mg daily, hydralazine 100 mg 3 times daily. 2. Chronic diastolic heart failure. Continue Coreg 12.5 mg twice daily, hold Lasix 40 mg twice daily. 3. Diabetes mellitus type 2 uncontrolled with hyperglycemia. Continue Actos 15 mg daily, NovoLog mix 7525 in its with breakfast and 20 units with supper. Patient started on NovoLog scale before meals and at bedtime. A1c March 2021 was 10.5 4. Situational anxiety disorder. Xanax 25 mg twice daily added.. 5. Paroxysmal atrial fibrillation continue eliquis 5 mg twice daily, Coreg 12.5 mg twice daily. 6. Hypertension hypertensive cardiovascular disease. Continue amlodipine 10 mg hs, Coreg 12.5 mg twice daily, hydralazine 100 mg 3 times daily, lisinopril 40 mg daily. 7. Hypothyroidism. Continue levothyroxine 125 g daily. 8. Diabetic neuropathy. Continue gabapentin 100 mg daily. 9. 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 Continue albuterol nebulizer every 6 hours as needed. 10. Chronic kidney disease stage III. Avoid nephrotoxic agents, monitor kidney function. 11. Obstructive sleep apnea unable to tolerate CPAP. Patient will need to reestablish with pulmonary medicine and outpatient follow-up for sleep study. 12. Degenerative disc disease with chronic pain. Follows with pain management with Dr. Amaya. 13. Hyperlipidemia. Continue Lipitor 80 mg at bedtime. 14. Chronic anemia. Continue ferrous sulfate 325 mg daily. 15. GI prophylaxis. Protonix. 16. DVT prophylaxis. Eliquis. Patient will be admitted to the hospital for a minimum of 2 night stay. DISCHARGE PLAN Home Impression and plan of care have been directed as dictated by the signing physician. Bria Muhammad nurse practitioner acting as scribe for signing physician. Past Medical History Past Medical History: Cancer, Pneumonia Additional Past Medical History / Comment(s): Stage III Kidney Disease, hx Pneumonia with Sepsis, no CPAP use, Vitamin D Deficiency, chronic low back pain, frequent constipation, hx skin cancer. History of Any Multi-Drug Resistant Organisms: None Reported Past Surgical History: Heart Catheterization Additional Past Surgical History / Comment(s): Cardiac caths , lap band placed/since removed, low back surgery, L carpal tunnel release X2, skin cancer removal, colonoscopies, bilateral cataract removals/lens implants. 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 She is independent. Smoking Status: Never smoker, Second hand smoke exposure Past Alcohol Use History: None Reported Past Drug Use History: None Reported - Past Family History Sister(s) Family Medical History: Myocardial Infarction ([place]) Brother(s) Family Medical History: Cancer Additional Family Medical History / Comment(s): Colon Cancer. Mother Family Medical History: Dementia Additional Family Medical History / Comment(s): Mother of dementia at the age of 89yrs. Father Family Medical History: Cancer Additional Family Medical History / Comment(s): Pt states her father was treated for a sinus infection but really had leukemia and of this at the age of 72 yrs. Medications and Allergies Home Medications Medication Instructions Recorded Confirmed Type Atorvastatin [Lipitor] 80 mg PO HS 06/30/18 07/26/21 History Apixaban [Eliquis] 5 mg PO BID #60 tab 07/04/18 07/26/21 Rx hydrALAZINE HCL [Apresoline] 100 mg PO TID 01/06/19 07/26/21 History lisinopriL 40 mg PO DAILY 01/06/19 07/26/21 History Levothyroxine Sodium [Synthroid] 125 mcg PO DAILY #30 tab 01/08/19 07/26/21 Rx Insulin NPL/Insulin Lispro 20 unit SQ W/SUPPER 05/30/20 07/26/21 History [humaLOG MIX 75-25 VIAL] Insulin NPL/Insulin Lispro 30 unit SQ W/BRKFST 06/05/20 07/26/21 History [humaLOG MIX 75-25 VIAL] Albuterol Sulfate [Proair Hfa] 2 puff INHALATION RT-Q6H PRN 07/19/20 07/26/21 History Ergocalciferol [Vitamin D2 50,000 unit PO TU 07/19/20 07/26/21 History (DRISDOL)] Pioglitazone [Actos] 15 mg PO DAILY 09/13/20 07/26/21 History Acetaminophen [Tylenol Extra 500 - 1,000 mg PO Q8H PRN 10/14/20 07/26/21 History Strength] Ferrous Sulfate [Feosol] 325 mg PO DAILY 04/01/21 07/26/21 History Gabapentin [Neurontin] 100 mg PO DAILY 04/01/21 07/26/21 History amLODIPine [Norvasc] 5 mg PO DAILY #30 tab 04/05/21 07/26/21 Rx Furosemide [Lasix] 40 mg PO BID@0900,1600 #60 tab 05/11/21 07/26/21 Rx Isosorbide Mononitrate ER [Imdur] 60 mg PO DAILY #30 tablet 05/11/21 07/26/21 Rx Potassium Chloride ER [K-Dur 20] 20 meq PO DAILY #30 tab 05/11/21 07/26/21 Rx carvediloL [Coreg*] 12.5 mg PO BID-W/MEALS #60 tab 05/11/21 07/26/21 Rx Allergies Allergy/AdvReac Type Severity Reaction Status Date / Time azithromycin Allergy Rash/Hives Verified 07/26/21 11:52 [From Zithromax Z-Jeanmarie] methylprednisolone Allergy Rash/Hives Verified 07/26/21 11:52 [From Medrol] trimethoprim [From Bactrim] Allergy Rash/Hives Verified 07/26/21 11:52 hydrochlorothiazide AdvReac lost Verified 07/26/21 11:52 balance and fell sulfamethoxazole AdvReac Rash/Hives Verified 07/26/21 11:52 [From Bactrim] Physical Exam Vitals: Vital Signs Temp Pulse Pulse Pulse Pulse Pulse Resp 07/27/21 07:00 98.5 F 81 83 80 20 07/27/21 03:50 67 07/27/21 02:29 98.4 F 70 16 07/26/21 19:16 98.3 F 72 16 07/26/21 18:26 98.4 F 67 18 07/26/21 14:09 63 18 07/26/21 11:52 57 L 16 07/26/21 10:17 97.8 F 58 L 18 BP BP BP BP BP Pulse Ox 07/27/21 07:00 213/89 201/87 217/88 94 L 07/27/21 03:50 07/27/21 02:29 144/70 95 07/26/21 19:16 177/82 98 07/26/21 18:26 150/71 98 07/26/21 14:09 144/70 99 07/26/21 11:52 128/53 98 07/26/21 10:17 145/68 96 Intake and Output 07/26/21 07/27/21 07/27/21 22:59 06:59 14:59 Intake Total 240 Balance 240 Intake: Oral 240 Other: Voiding Method Bedside Commode # Voids 1 3 2 Weight 97.522 kg Results CBC & Chem 7: 07/27/21 06:48 07/27/21 06:48 Labs: Abnormal Lab Results - Last 24 Hours (Table) 07/26/21 07/26/21 07/26/21 Range/Units 10:40 11:03 11:03 BUN 34 H (7-17) mg/dL Creatinine 1.58 H (0.52-1.04) mg/dL Glucose 295 H (74-99) mg/dL POC Glucose (mg/dL) 299 H (75-99) mg/dL Magnesium 2.4 H (1.6-2.3) mg/dL Urine Protein Trace H (Negative) Urine Glucose (UA) 4+ H (Negative) 07/26/21 07/27/21 Range/Units 20:23 07:02 BUN (7-17) mg/dL Creatinine (0.52-1.04) mg/dL Glucose (74-99) mg/dL POC Glucose (mg/dL) 303 H 232 H (75-99) mg/dL Magnesium (1.6-2.3) mg/dL Urine Protein (Negative) Urine Glucose (UA) (Negative)
[2021-07-27] MEDS: ACETAMINOPHEN TAB 500 MG TAB PO PRN (15:37)
[2021-07-27 17:14] LABS: Glucose,Whole Blood 164 mg/dL (75-99)
[2021-07-27 19:01] LABS: Glucose,Whole Blood 140 mg/dL (75-99)
[2021-07-27 20:30] LABS: Glucose,Whole Blood 131 mg/dL (75-99)
[2021-07-27] MEDS: amLODIPine 5 MG TAB PO SCH (20:36)
[2021-07-27] MEDS: ATORVASTATIN 80 MG TAB PO SCH (20:36)
[2021-07-28] MEDS: SODIUM CHLORIDE 0.9% 1,000 ML IV SCH ×2 (00:30→12:26)
[2021-07-28 02:17] LABS: Glucose,Whole Blood 133 mg/dL (75-99)
[2021-07-28] MEDS: LEVOTHYROXINE 125 MCG TAB PO SCH (05:42)
[2021-07-28 07:24] LABS: Glucose,Whole Blood 232 mg/dL (75-99)
[2021-07-28] MEDS: INSULN ASP PRT/INSULIN ASPART 100 UNIT/ML 10 ML VIAL SQ SCH ×2 (08:20→18:03)
[2021-07-28] MEDS: INSULIN ASPART (NovoLOG) 100 UNIT/ML VIAL SQ SCH ×4 (08:21→20:30)
[2021-07-28] MEDS: FERROUS SULFATE 325 MG TAB PO SCH (08:22)
[2021-07-28] MEDS: PIOGLITAZONE 15 MG TAB PO SCH (08:22)
[2021-07-28] MEDS: ALPRAZolam 0.25 MG TAB PO PRN (08:22)
[2021-07-28] MEDS: APIXABAN 5 MG TAB PO SCH ×2 (08:22→20:07)
[2021-07-28] MEDS: carvediloL 12.5 MG TAB PO SCH ×2 (08:22→17:25)
[2021-07-28] MEDS: POTASSIUM CHLORIDE ER 20 MEQ TAB.ER PO SCH (08:23)
[2021-07-28] MEDS: lisinopriL 20 MG TAB PO SCH (08:23)
[2021-07-28] MEDS: hydrALAZINE HCL 50 MG TAB PO SCH ×3 (08:23→22:26)
--- NOTE | 2021-07-28 12:46 | XR ---
EXAMINATION TYPE: XR Hip RT and AP Pelvis DATE OF EXAM: 07/28/2021 COMPARISON: NONE HISTORY: Pain TECHNIQUE: A single AP view of the pelvis is obtained. Two views of the right hip are obtained. FINDINGS: There is postsurgical change involving the lower lumbar spine with SI joint arthropathy an d arthropathy of the hips. No acute fracture or dislocation.
[2021-07-28 12:48] LABS: Glucose,Whole Blood 180 mg/dL (75-99)
[2021-07-28 13:24] LABS: Glucose,Whole Blood 163 mg/dL (75-99)
--- NOTE | 2021-07-28 13:47 | P.PN ---
Subjective HISTORY OF PRESENTING ILLNESS Patient is a pleasant 80-year-old female with history of paroxysmal atrial fibrillation (on eliquis), hypertension, hyperlipidemia, COPD, diabetes mellitus type 2, hypothyroidism, prior CVA, chronic kidney disease, nonobstructive coronary artery disease by prior heart catheterization 2014, obstructive sleep apnea, diastolic heart failure with ejection fraction 55-60% and moderate aortic stenosis. Patient normally follows with Dr. Hernandez. We are consulted for syncope. Patient states she was at her eye doctor appointment. She was sitting in doctors office, she took all of her scheduled morning medication at once, about 30 minutes later she felt dizzy, she proceeded to stand to walk to the front maker lockstitch to tell staff she was not feeling well. She then fell to the ground. Unknown downtime. She woke up to everyone standing around her. Changes to her medications include starting gabapentin in June. DIAGNOSTICS: -EKG sinus bradycardia, heart rate 58, T wave inversion in lead III, no significant ST-T wave abnormalities. prior EKGs with similar findings. -Recent 24-hour Holter monitor 05/2021 in the office revealed baseline sinus rhythm, minimum heart rate 48, maximum heart rate 96, no pauses greater than 2 seconds, no supraventricular events. Total 45 PVCs, no malignant arrhythmias present, no episodes of nonsustained ventricular tachycardia more than 4 beats. -Echocardiogram 03/2021 EF 5560 percent, grade 2 diastolic dysfunction, moderate aortic stenosis the peak/mean gradient of 60 mmHg, 35 mmHg, moderate mitral regurgitation, mild tricuspid regurgitation, mild pulmonary hypertension with RVSP of 39 mmHg 07/28/2021: Patient seems at bedside, no acute distress. She has had no further lightheadedness or near syncope. Her blood pressures have improved. Telemetry reviewed, patient had an episode of atrial fibrillation RVR HR 130s she was given her scheduled carvedilol and she converted back to sinus mechanism, she has HR now in the 70s-80s. PHYSICAL EXAMINATION Vital signs reviewed. CONSTITUTIONAL: No apparent distress, obese HEENT: Neck Supple. No JVD CHEST EXAMINATION: Lungs clear to auscultation bilaterally HEART EXAMINATION: Regular rate and rhythm. S1, S2 heard. systolic ejection murmur right sternal border and apex, no gallops or rub. ABDOMEN: Soft, nontender. Positive bowel sounds. EXTREMITIES: 2+ peripheral pulses, trace bilateral lower extremity edema and no calf tenderness. NEUROLOGIC EXAMINATION: Patient is awake, alert and oriented x3. ASSESSMENT Syncopal episode, likely vasovagal, also possibly related to taking all her medications in the morning at once Paroxysmal atrial fibrillation, episode of RVR this morning with spontaneous currently normal sinus rhythm COPD Hypertension Hyperlipidemia Nonobstructive coronary artery disease by prior heart catheterization 2014 Obstructive sleep apnea Chronic kidney disease Diabetes mellitus type 2 Moderate aortic stenosis Moderate mitral regurgitation PLAN Syncopal episode likely vasovagal, and possibly related to taking all her cardiac medications at once. Recommend discontinuing Imdur Continue Carvedilol Continue amlodipine 5mg to night time Continue Eliquis, statin, hydralazine, lisinopril. We will follow the patient as needed. Please reconsult if needed. Patient follow up outpatient with Dr. Hernandez in 1-2 weeks. Objective - Vital Signs Vital signs: Vital Signs Temp 98.9 F 07/28/21 07:00 Pulse 133 H 07/28/21 07:00 Resp 16 07/28/21 08:00 BP 135/76 07/28/21 07:00 Pulse Ox 92 L 07/28/21 07:00 Intake & Output 07/27/21 07/28/21 07/28/21 18:59 06:59 18:59 Intake Total 1080 236 Output Total 300 Balance 780 236 Intake: IV 600 Sodium Chloride 0.9% 1, 600 000 ml @ 75 mls/hr IV . [id number] [facility] Rx#:[id number] Oral 480 236 Output: Urine 300 Other: Voiding Method Bedside Commode Bedside Commode Bedside Commode # Voids 2 1 - Labs CBC & Chem 7: 07/27/21 06:48 07/27/21 06:48 Labs: Abnormal Lab Results - Last 24 Hours (Table) 07/27/21 07/27/21 07/27/21 Range/Units 17:13 18:58 20:29 POC Glucose (mg/dL) 164 H 140 H 131 H (75-99) mg/dL 07/28/21 07/28/21 07/28/21 Range/Units 02:15 07:23 12:46 POC Glucose (mg/dL) 133 H 232 H 180 H (75-99) mg/dL 07/28/21 Range/Units 13:22 POC Glucose (mg/dL) 163 H (75-99) mg/dL
[2021-07-28] MEDS: traMADol 50 MG TAB PO PRN (13:56)
[2021-07-28] MEDS: BACLOFEN 10 MG TAB PO PRN (13:57)
--- NOTE | 2021-07-28 14:18 | P.PN ---
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 Hernandez with past medical history of paroxysmal atrial fibrillation, hypertensi on, hyperlipidemia, COPD from secondhand smoke, diabetes mellitus type 2, hypothyroidism, prior CVA, chronic kidney disease stage III, and nonobstructive coronary artery disease noted on cardiac catheterization performed in 2014, obstructive sleep apnea unable to tolerate CPAP, degenerative disc disease status post pain injections and with Dr. Amaya for pain management. Asked hospitalization was in March 2021 for acute on chronic diastolic heart failure. At that time echocardiogram revealed EF of 55-60% with severe concentric left ventricular hypertrophy, moderate aortic stenosis, moderate mitral regurgitation, mild tricuspid regurgitation, mild pulmonary hypertension. Patient was at her eye doctor yesterday and was waiting for her appointment, didn't feel well and was having palpitations in her chest. Patient had a fall hitting her head and her lumbar spine with loss of consciousness. Patient was recently started on gabapentin on Patient presented to [facility] emergency center for evaluation. She is found to be afebrile, heart rate in the 50s and 60s, blood pressure initially 145/68 and pulse ox 96% on room air. This morning, blood pressure was 213/89 and orthostatics were negative. EKG was sinus bradycardia with left ventricular hypertrophy. CBC was unremarkable. INR 1.0. Electrolytes normal. BUN 34 and creatinine 1.58, this is patient's baseline. Blood sugar 295. Magnesium 2.4. Liver function tests were normal. Troponin negative. Urinalysis glucose 4+. No sign of infection. Marin virus PCR not detected. Chest x-ray reveals cardiomegaly, correlate for chronic interstitial lung disease. CAT scan of the brain and cervical spine revealed mild atrophy chronic appearing periventricular white matter ischemic changes. Cervical kyphosis. Degenerative non-cold vertebral joint hypertrophy contributing to foraminal narrowing. No acute osseous abnormality. Lumbar spine CAT scan revealed postsurgical change with nondiagnostic assessment due to artifact at the surgical levels. Remaining levels demonstrate no acute fracture. Disc bulging and hypertrophic changes L2-3 and L3-4 likely result in canal stenosis and foraminal encroachment. Short-term follow-up MRI recommended. She placed on the observation unit, consult with cardiology and medication changes were made to Norvasc changed to bedtime and discontinued Imdur, hold Las ix. Patient is quite upset at the time of evaluation because her significant other is in the emergency center and had a syncopal episode with underlying dementia. Xanax was started. 07/28: Blood pressure readings stable overnight this morning at 135/76 and at the highest at 2 AM was 168/78. Blood sugars are running between 131 and 232. She has been seen and followed by cardiology with the above noted medication changes and recommend discontinuing Imdur. Patient's significant other was admitted to the hospital yesterday and it appears anxiety level is minimally improved today. Patient is complaining of severe right hip pain and inability to walk. Right hip x-ray, orthopedic consult, PT and OT, baclofen added. Most likely patient will be ready for discharge tomorrow depending on recommendations from above. REVIEW OF SYSTEMS Constitutional: No fever, no chills, no night sweats. No weight change. No weakness, fatigue or lethargy. No daytime sleepiness. EENT: Reported headache. No blurred vision or double vision, no loss of vision. No loss of Hearing, no ringing in the ears, no dizziness. No nasal drainage or congestion. No epistaxis. No sore throat. Lungs: Reported shortness of breath, no cough, no sputum production. No wheezing. Cardiovascular: Reported chest pain, positive lower extremity edema. No palpitations. No paroxysmal nocturnal dyspnea. No orthopnea. No lightheadedness or dizziness. Reports syncopal episodes. Abdominal: No abdominal pain. No nausea, vomiting. No diarrhea. No constipation. No bloody or tarry stools. No loss of appetite. Genitourinary: Reported dysuria, no increased frequency, no urgency. No urinary retention. Musculoskeletal: No myalgias. No muscle weakness, no gait dysfunction, no frequent falls. No back pain. No neck pain. Reports right hip pain. Integumentary: No wounds, no lesions. No rash or pruritus. No unusual bruising. No change in hair or nails. Neurologic: No aphasia. No facial droop. No change in mentation. No head injury. No headache. No paralysis. No paresthesia. Psychiatric: No depression. Reports anxiety. No mood swings. Endocrine: Noted abnormal blood sugars. No weight change. PHYSICAL EXAMINATION Gen: This is a 80-year-old female, obese, patient is sitting on the edge of the bed and appears to be in no acute respiratory distress. Patient is anxious but improved from yesterday. HEENT: Head is atraumatic, normocephalic. Pupils equal, round. Sclerae is anicteric. NECK: Supple. No JVD. No lymphadenopathy. No thyromegaly. LUNGS: Slightly diminished to bases but otherwise clear to auscultation. No wheezes or rhonchi. No intercostal retractions. HEART: Regular rate and rhythm. 3/6 systolic murmur. ABDOMEN: Soft. Bowel sounds are present. No masses. No tenderness. EXTREMITIES: 1+ bilateral pedal edema. No calf tenderness. Dorsalis pedis +2 bilaterally. Right hip tenderness, decreased range of motion due to pain. NEUROLOGICAL: Patient is awake, alert and oriented x3. Cranial nerves 2 through 12 are grossly intact. ASSESSMENT AND PLAN 1. Syncopal episode most likely vasovagal. Cardiology consult appreciated. Amlodipine changed to dosing at bedtime and Imdur were discontinued, Lasix on hold. Continue lisinopril 40 mg daily, hydralazine 100 mg 3 times daily. 2. Chronic diastolic heart failure. Continue Coreg 12.5 mg twice daily, hold Lasix 40 mg twice daily. 3. Diabetes mellitus type 2 uncontrolled with hyperglycemia. Continue Actos 15 mg daily, NovoLog mix 7525 in its with breakfast and 20 units with supper. Patient started on NovoLog scale before meals and at bedtime. A1c March 2021 was 10.5 4. Situational anxiety disorder. Xanax 25 mg twice daily added.. 5. Paroxysmal atrial fibrillation continue eliquis 5 mg twice daily, Coreg 12.5 mg twice daily. 6. Hypertension hypertensive cardiovascular disease. Continue amlodipine 10 mg hs, Coreg 12.5 mg twice daily, hydralazine 100 mg 3 times daily, lisinopril 40 mg daily. 7. Hypothyroidism. Continue levothyroxine 125 g daily. 8. Diabetic neuropathy. Continue gabapentin 100 mg daily. 9. 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 Continue albuterol nebulizer every 6 hours as needed. 10. Chronic kidney disease stage III. Avoid nephrotoxic agents, monitor kidney function. 11. Obstructive sleep apnea unable to tolerate CPAP. Patient will need to reestablish with pulmonary medicine and outpatient follow-up for sleep study. 12. Degenerative disc disease with chronic pain. Follows with pain management with Dr. Amaya. 13. Hyperlipidemia. Continue Lipitor 80 mg at bedtime. 14. Chronic anemia. Continue ferrous sulfate 325 mg daily. 15. Right hip pain following fall. Consult with orthopedics, x-ray of the right hip, baclofen. GI prophylaxis. Protonix. DVT prophylaxis. Eliquis. DISCHARGE PLAN Home most likely. Consult with PT and OT Impression and plan of care have been directed as dictated by the signing physician. Bria Muhammad nurse practitioner acting as scribe for signing physician. Objective - Vital Signs Vital signs: Vital Signs Temp 98.9 F 07/28/21 07:00 Pulse 133 H 07/28/21 07:00 Resp 16 07/28/21 08:00 BP 135/76 07/28/21 07:00 Pulse Ox 92 L 07/28/21 07:00 Intake & Output 07/27/21 07/28/21 07/28/21 18:59 06:59 18:59 Intake Total 1080 236 Output Total 300 Balance 780 236 Intake: IV 600 Sodium Chloride 0.9% 1, 600 000 ml @ 75 mls/hr IV . [id number] [facility] Rx#:[id number] Oral 480 236 Output: Urine 300 Other: Voiding Method Bedside Commode Bedside Commode Bedside Commode # Voids 2 1 - Labs CBC & Chem 7: 07/27/21 06:48 07/27/21 06:48 Labs: Abnormal Lab Results - Last 24 Hours (Table) 07/27/21 07/27/21 07/27/21 Range/Units 12:20 17:13 18:58 POC Glucose (mg/dL) 239 H 164 H 140 H (75-99) mg/dL 07/27/21 07/28/21 07/28/21 Range/Units 20:29 02:15 07:23 POC Glucose (mg/dL) 131 H 133 H 232 H (75-99) mg/dL
--- NOTE | 2021-07-28 15:38 | P.CNOR ---
History of Present Illness - [facility] Consult date: 07/28/21 Consult reason: low back pain, other (right hip pain) History of present illness: The patient is a 80 y/o female that presented two days ago after a syncopal episode at home. She states she was standing at a counter and fell down. She was admitted for further evaluation by internal medicine. She has been comp laining of low back and right hip pain. Orthopedics was consulted for the right hip pain. X-rays taken today reveal no acute fractures or dislocation noted. She is status post L4-S1 [place] [address] Webb and she has seen Dr. Nur last year for low back. She denies bowel or bladder issues. Review of Systems Constitutional: Denies chills, Denies fatigue, Denies fever Cardiovascular: Denies chest pain, Denies shortness of breath Respiratory: Denies cough Musculoskeletal: Reports low back pain Past Medical History Past Medical History: Cancer, Pneumonia Additional Past Medical History / Comment(s): Stage III Kidney Disease, hx Pneumonia with Sepsis, no CPAP use, Vitamin D Deficiency, chronic low back pain, frequent constipation, hx skin cancer. History of Any Multi-Drug Resistant Organisms: None Reported Past Surgical History: Heart Catheterization Additional Past Surgical History / Comment(s): Cardiac caths 2010/2014, lap band placed/since removed, low back surgery, L carpal tunnel release X2, skin cancer removal, colonoscopies, bilateral cataract removals/lens implants. 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 She is independent. Smoking Status: Never smoker, Second hand smoke exposure Past Alcohol Use History: None Reported Past Drug Use History: None Reported - Past Family History Sister(s) Family Medical History: Myocardial Infarction ([place]) Brother(s) Family Medical History: Cancer Additional Family Medical History / Comment(s): Colon Cancer. Mother Family Medical History: Dementia Additional Family Medical History / Comment(s): Mother of dementia at the age of 89yrs. Father Family Medical History: Cancer Additional Family Medical History / Comment(s): Pt states her father was treated for a sinus infection but really had leukemia and of this at the age of 72 yrs. Medications and Allergies Home Medications Medication Instructions Recorded Confirmed Type Atorvastatin [Lipitor] 80 mg PO HS 06/30/18 07/26/21 History Apixaban [Eliquis] 5 mg PO BID #60 tab 07/04/18 07/26/21 Rx hydrALAZINE HCL [Apresoline] 100 mg PO TID 01/06/19 07/26/21 History lisinopriL 40 mg PO DAILY 01/06/19 07/26/21 History Levothyroxine Sodium [Synthroid] 125 mcg PO DAILY #30 tab 01/08/19 07/26/21 Rx Insulin NPL/Insulin Lispro 20 unit SQ W/SUPPER 05/30/20 07/26/21 History [humaLOG MIX 75-25 VIAL] Insulin NPL/Insulin Lispro 30 unit SQ W/BRKFST 06/05/20 07/26/21 History [humaLOG MIX 75-25 VIAL] Albuterol Sulfate [Proair Hfa] 2 puff INHALATION RT-Q6H PRN 07/19/20 07/26/21 History Ergocalciferol [Vitamin D2 50,000 unit PO TU 07/19/20 07/26/21 History (DRISDOL)] Pioglitazone [Actos] 15 mg PO DAILY 09/13/20 07/26/21 History Acetaminophen [Tylenol Extra 500 - 1,000 mg PO Q8H PRN 10/14/20 07/26/21 History Strength] Ferrous Sulfate [Feosol] 325 mg PO DAILY 04/01/21 07/26/21 History Gabapentin [Neurontin] 100 mg PO DAILY 04/01/21 07/26/21 History amLODIPine [Norvasc] 5 mg PO DAILY #30 tab 04/05/21 07/26/21 Rx Furosemide [Lasix] 40 mg PO BID@0900,1600 #60 tab 05/11/21 07/26/21 Rx Potassium Chloride ER [K-Dur 20] 20 meq PO DAILY #30 tab 05/11/21 07/26/21 Rx carvediloL [Coreg*] 12.5 mg PO BID-W/MEALS #60 tab 05/11/21 07/26/21 Rx Allergies Allergy/AdvReac Type Severity Reaction Status Date / Time azithromycin Allergy Rash/Hives Verified 07/26/21 11:52 [From Zithromax Z-Jeanmarie] methylprednisolone Allergy Rash/Hives Verified 07/26/21 11:52 [From Medrol] trimethoprim [From Bactrim] Allergy Rash/Hives Verified 07/26/21 11:52 hydrochlorothiazide AdvReac lost Verified 07/26/21 11:52 balance and fell sulfamethoxazole AdvReac Rash/Hives Verified 07/26/21 11:52 [From Bactrim] Physical Examination The patient is a 80 y/o female in no acute distress. She is alert and oriented x3. She did have recent pain medication and states she is confused at times because of the medication. Exam of the back reveals no dimples, patches, lacerations, or abrasions. There is a healed incision to the low back. Non- tender to palpation over the midline. There is some paravertebral spasm. No pain on internal or external rotation of bilateral hips. Motor strength of the bilateral lower extremity is 4/5 including dorsiflexion, plantar flexion, extensor hallucis longus. Results X-ray of the pelvis and right hip reveal no acute fractures or dislocation. There is hardware present in the lumbar spine. - Labs Labs: Abnormal Lab Results - Last 24 Hours (Table) 07/27/21 07/27/21 07/27/21 Range/Units 17:13 18:58 20:29 POC Glucose (mg/dL) 164 H 140 H 131 H (75-99) mg/dL 07/28/21 07/28/21 07/28/21 Range/Units 02:15 07:23 12:46 POC Glucose (mg/dL) 133 H 232 H 180 H (75-99) mg/dL 07/28/21 Range/Units 13:22 POC Glucose (mg/dL) 163 H (75-99) mg/dL H & H 07/26/21 07/27/21 Range/Units 11:03 06:48 Hgb 12.7 11.2 L (11.4-16.0) gm/dL Hct 38.8 38.2 (34.0-46.0) % Coagulation 07/26/21 Range/Units 11:03 INR 1.0 (<1.2) Result Diagrams: 07/27/21 06:48 07/27/21 06:48 Assessment and Plan (1) Lumbar back pain Current Visit: Yes Status: Acute Code(s): M54.50 - LOW BACK PAIN, UNSPECIFIED SNOMED Code(s): 021517869 (2) Syncope Current Visit: Yes Status: Acute Code(s): R55 - SYNCOPE AND COLLAPSE SNOMED Code(s): 357759148 Plan: The clinical and imaging findings were discussed with the patient. The patient was examined by Dr. Griffin as well. She does not have a fracture in her right hip or any neurological changes to her bilateral extremities. Continue pain management and assistance with transfers. We will have Dr. Nur or Brock Monahan PA-C evaluate the patient tomorrow to help with the lumbar spine aspect of her pain.
[2021-07-28 17:34] LABS: Glucose,Whole Blood 120 mg/dL (75-99)
[2021-07-28] MEDS: ATORVASTATIN 80 MG TAB PO SCH (20:07)
[2021-07-28] MEDS: amLODIPine 5 MG TAB PO SCH (20:07)
[2021-07-28 20:14] LABS: Glucose,Whole Blood 164 mg/dL (75-99)
[2021-07-29] MEDS: SODIUM CHLORIDE 0.9% 1,000 ML IV SCH ×2 (00:32→15:48)
[2021-07-29] MEDS: LEVOTHYROXINE 125 MCG TAB PO SCH (05:27)
[2021-07-29 07:32] LABS: Glucose,Whole Blood 226 mg/dL (75-99)
[2021-07-29] MEDS: INSULIN ASPART (NovoLOG) 100 UNIT/ML VIAL SQ SCH ×4 (08:36→21:29)
[2021-07-29] MEDS: INSULN ASP PRT/INSULIN ASPART 100 UNIT/ML 10 ML VIAL SQ SCH ×2 (08:36→18:03)
[2021-07-29] MEDS: FERROUS SULFATE 325 MG TAB PO SCH (08:37)
[2021-07-29] MEDS: POTASSIUM CHLORIDE ER 20 MEQ TAB.ER PO SCH (08:37)
[2021-07-29] MEDS: hydrALAZINE HCL 50 MG TAB PO SCH ×3 (08:37→21:29)
[2021-07-29] MEDS: lisinopriL 20 MG TAB PO SCH (08:37)
[2021-07-29] MEDS: PIOGLITAZONE 15 MG TAB PO SCH (08:38)
[2021-07-29] MEDS: APIXABAN 5 MG TAB PO SCH ×2 (08:38→21:29)
[2021-07-29] MEDS: carvediloL 12.5 MG TAB PO SCH ×2 (08:38→18:04)
--- NOTE | 2021-07-29 10:34 | CT ---
EXAMINATION TYPE: CT brain wo con DATE OF EXAM: 07/29/2021 COMPARISON: 07/26/2021 HISTORY: confusion CT DLP: 1031.[address] of the brain was performed. The ventricles, basal cisterns and sulci overlying the cerebral convexities demonstrate mild enlargem ent. There is no evidence for intracranial hemorrhage or sulcal effacement. There is decreased attenuation about the periventricular white matter and deep white matter of both c erebral hemispheres, compatible with chronic small vessel ischemia. Differential diagnosis does inclu de demyelination. No mass effects are seen.No midline shift. Osseous calvarium is intact. If symptoms persist consider MRI. IMPRESSION: 1. Age related atrophic and chronic small vessel ischemic change without acute intracranial process s een at this time.
[2021-07-29 12:27] LABS: Glucose,Whole Blood 238 mg/dL (75-99)
--- NOTE | 2021-07-29 13:14 | XR ---
EXAMINATION TYPE: XR chest 1V portable DATE OF EXAM: 07/29/2021 COMPARISON: 07/26/2021 HISTORY: Hypoxia TECHNIQUE: Single frontal view of the chest is obtained. FINDINGS: There has been interval development of diffuse interstitial edema and small right effusion compared to the previous. There is a small focal area of airspace consolidation in the right lower l obe as well. The Left lung remains clear. Heart size is prominent. There is no pneumothorax. The osseous structures are intact IMPRESSION: Interval development of right lower lobe infiltrate likely combination of focal airspace opacity and small pleural effusion. There is diffuse interstitial edema within the right lung. The l eft lung remains clear.
--- NOTE | 2021-07-29 13:16 | P.CNOR ---
History of Present Illness - [facility] Consult date: 07/29/21 Requesting physician: Venessa Marie Consult reason: low back pain, other (Right lower extremity radiculopathy) History of present illness: Patient is a pleasant 80-year-old female who is seen and examined at the bedside in regards to her lumbar spine. She was seen and examined yesterday in regards to right hip pain. Patient presented to the emergency department for further evaluation after a syncopal episode while at her eye doctor. She reported not feeling well at that time. Nursing states patient did have a low-grade temperature last evening at 100F. Patient is currently on O2 nasal cannula with oxygen saturation levels in the low 90s. Patient feels she feels significantly generally weak. Nursing states patient has had some confusion but she is answering questions appropriately at the bedside. Patient states she does have some chronic low back pain. She has difficulty describing her lower extremity leg pain. She states she has pain but does not describe a specific pattern but states she has noticed some pain over the shins bilaterally. She is not currently complaining of pain at her right hip. There was some report of difficulty with ambulation due to her hip pain yesterday. Patient is able to stand at the bedside and ambulate towards me independently. She was previously examined the outpatient setting in 2020 regards to lumbar spine. She has a history of previous fusion at L4-5 and L5-S1 performed approximately 20 years ago. She was acute for surgical intervention regards to her lumbar spine when evaluated in 2020 but recommendation was made to exhaust conservative treatment options. Patient states she has had injections in her lumbar spine previously but not for several years. Patient is being seen exam by medicine and [facility]. Evaluation of her other medical diagnoses which includes atrial fibrillation, hypertension, hyperlipidemia, COPD, hypothyroidism, prior CVA, chronic kidney disease stage III, coronary artery disease, and diabetes mellitus type 2. Past Medical History Past Medical History: Cancer, Pneumonia Additional Past Medical History / Comment(s): Stage III Kidney Disease, hx Pneumonia with Sepsis, no CPAP use, Vitamin D Deficiency, chronic low back pain, frequent constipation, hx skin cancer. History of Any Multi-Drug Resistant Organisms: None Reported Past Surgical History: Heart Catheterization Additional Past Surgical History / Comment(s): Cardiac caths , lap band placed/since removed, low back surgery, L carpal tunnel release X2, skin cancer removal, colonoscopies, bilateral cataract removals/lens implants. 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 She is independent. Smoking Status: Never smoker, Second hand smoke exposure Past Alcohol Use History: None Reported Past Drug Use History: None Reported - Past Family History Sister(s) Family Medical History: Myocardial Infarction ([place]) Brother(s) Family Medical History: Cancer Additional Family Medical History / Comment(s): Colon Cancer. Mother Family Medical History: Dementia Additional Family Medical History / Comment(s): Mother of dementia at the age of 89yrs. Father Family Medical History: Cancer Additional Family Medical History / Comment(s): Pt states her father was treated for a sinus infection but really had leukemia and of this at the age of 72 yrs. Medications and Allergies Home Medications Medication Instructions Recorded Confirmed Type Atorvastatin [Lipitor] 80 mg PO HS 06/30/18 07/26/21 History Apixaban [Eliquis] 5 mg PO BID #60 tab 07/04/18 07/26/21 Rx hydrALAZINE HCL [Apresoline] 100 mg PO TID 01/06/19 07/26/21 History lisinopriL 40 mg PO DAILY 01/06/19 07/26/21 History Levothyroxine Sodium [Synthroid] 125 mcg PO DAILY #30 tab 01/08/19 07/26/21 Rx Insulin NPL/Insulin Lispro 20 unit SQ W/SUPPER 05/30/20 07/26/21 History [humaLOG MIX 75-25 VIAL] Insulin NPL/Insulin Lispro 30 unit SQ W/BRKFST 06/05/20 07/26/21 History [humaLOG MIX 75-25 VIAL] Albuterol Sulfate [Proair Hfa] 2 puff INHALATION RT-Q6H PRN 07/19/20 07/26/21 History Ergocalciferol [Vitamin D2 50,000 unit PO TU 07/19/20 07/26/21 History (DRISDOL)] Pioglitazone [Actos] 15 mg PO DAILY 01/25/21 12/07/21 History Acetaminophen [Tylenol Extra 500 - 1,000 mg PO Q8H PRN 10/14/20 07/26/21 History Strength] Ferrous Sulfate [Feosol] 325 mg PO DAILY 04/01/21 07/26/21 History Gabapentin [Neurontin] 100 mg PO DAILY 04/01/21 07/26/21 History amLODIPine [Norvasc] 5 mg PO DAILY #30 tab 04/05/21 07/26/21 Rx Furosemide [Lasix] 40 mg PO BID@0900,1600 #60 tab 05/11/21 07/26/21 Rx Potassium Chloride ER [K-Dur 20] 20 meq PO DAILY #30 tab 05/11/21 07/26/21 Rx carvediloL [Coreg*] 12.5 mg PO BID-W/MEALS #60 tab 05/11/21 07/26/21 Rx Allergies Allergy/AdvReac Type Severity Reaction Status Date / Time azithromycin Allergy Rash/Hives Verified 07/26/21 11:52 [From Zithromax Z-Jeanmarie] methylprednisolone Allergy Rash/Hives Verified 07/26/21 11:52 [From Medrol] trimethoprim [From Bactrim] Allergy Rash/Hives Verified 07/26/21 11:52 hydrochlorothiazide AdvReac lost Verified 07/26/21 11:52 balance and fell sulfamethoxazole AdvReac Rash/Hives Verified 07/26/21 11:52 [From Bactrim] Physical Examination Physical exam: Patient is awake, alert, and oriented 3; patient is able to answer questions appropriately Vital signs stable Adequate chest excursion with deep inspiration and expiration; currently on O2 nasal cannula Examination of lumbar spine reveals skin is intact with no abrasions, lacerations, or bruises; no erythema, purulence or signs of infection Evidence of well-healed incisions over the lumbar spine with the right incision being significantly longer than the left Dorsiflexion, plantarflexion, and extensor hallucis longus positive sustained bilaterally Patient is able to turn to sit at the bedside and stand independently She is able to ambulate slowly throughout the room independently on the bilateral lower extremities Increased low back pain with hip flexion against resistance bilaterally No increased low back pain with active hip flexion without resistance Patient is able to lift legs off the bed independently without difficulty No lower extremity hyperreflexia bilaterally Straight leg test negative bilateral lower extremities Negative Lasegue's test bilaterally No signs or symptoms of DVT; no calf pain No pain with internal and external rotation of the hips bilaterally Neurovascularly intact Results Pertinent studies: X-rays of the right hip and pelvis taken on 07/28/2021: No evidence of fracture dislocation of the bilateral hips; arthropathy of the sacroiliac joints CT of the lumbar spine taken on 07/26/2021: No evidence of acute fracture of lumbar spine; L2-3 and L3-4 disc bulging and facet hypertrophy likely resulting in canal stenosis and neural foraminal encroachment; evidence of retained hardware at L4-5 and L5-S1 with nondiagnostic assessment due to artifact - Labs Labs: Abnormal Lab Results - Last 24 Hours (Table) 07/28/21 07/28/21 07/28/21 Range/Units 13:22 17:32 20:12 POC Glucose (mg/dL) 163 H 120 H 164 H (75-99) mg/dL 07/29/21 07/29/21 Range/Units 07:14 12:21 POC Glucose (mg/dL) 226 H 238 H (75-99) mg/dL H & H 07/26/21 07/27/21 Range/Units 11:03 06:48 Hgb 12.7 11.2 L (11.4-16.0) gm/dL Hct 38.8 38.2 (34.0-46.0) % Coagulation 07/26/21 Range/Units 11:03 INR 1.0 (<1.2) Result Diagrams: 07/27/21 06:48 07/27/21 06:48 Assessment and Plan Assessment: Assessment: Chronic low back pain Bilateral lower extremity radiculopathy L4-5 and L5-S1 lumbar fusion L2-3 and L3-4 facet hypertrophy L2-3 and L3-4 likely spinal stenosis Recent syncopal episode Atrial fibrillation Hypertension Hyperlipidemia COPD Hypothyroidism Prior CVA Chronic kidney disease stage III Coronary artery disease Diabetes mellitus type 2 Obesity (1) Radiculopathy with lower extremity symptoms Current Visit: Yes Status: Acute Code(s): M54.10 - RADICULOPATHY, SITE UNSPECIFIED SNOMED Code(s): 11775021 (2) Lumbar stenosis Current Visit: Yes Status: Acute Code(s): M48.061 - SPINAL STENOSIS, LUMBAR REGION WITHOUT NEUROGENIC JUAN SNOMED Code(s): 87315997 (3) Lumbar facet arthropathy Current Visit: Yes Status: Acute Code(s): M47.816 - SPONDYLOSIS W/O MYELOPATHY OR RADICULOPATHY, LUMBAR REGION SNOMED Code(s): 895507412 (4) Fusion of lumbar spine Current Visit: Yes Status: Acute Code(s): M43.26 - FUSION OF SPINE, LUMBAR REGION SNOMED Code(s): 008753922 (5) Hypertension Current Visit: Yes Status: Acute Code(s): I10 - ESSENTIAL (PRIMARY) HYPERTENSION SNOMED Code(s): 95810699 (6) COPD (chronic obstructive pulmonary disease) Current Visit: Yes Status: Acute Code(s): J44.9 - CHRONIC OBSTRUCTIVE PU LMONARY DISEASE, UNSPECIFIED SNOMED Code(s): 72611418 (7) Hypothyroidism Current Visit: Yes Status: Acute Code(s): E03.9 - HYPOTHYROIDISM, UNSPECIFIED SNOMED Code(s): 18705585 (8) Chronic kidney disease, stage III (moderate) Current Visit: Yes Status: Acute Code(s): N18.30 - CHRONIC KIDNEY DISEASE, STAGE 3 UNSPECIFIED SNOMED Code(s): 900432121 (9) Coronary artery disease Current Visit: Yes Status: Acute Code(s): I25.10 - ATHSCL HEART DISEASE OF [place] CORONARY ARTERY W/O ANG PCTRS SNOMED Code(s): 36128220 (10) History of CVA (cerebrovascular accident) Current Visit: Yes Status: Acute Code(s): Z86.73 - PRSNL HX OF TIA (TIA), AND CEREB INFRC W/O RESID DEFICITS SNOMED Code(s): 192956025 (11) Lumbar back pain Current Visit: Yes Status: Acute Code(s): M54.50 - LOW BACK PAIN, UNSPECIFIED SNOMED Code(s): 014131455 (12) Syncope Current Visit: Yes Status: Acute Code(s): R55 - SYNCOPE AND COLLAPSE SNOMED Code(s): 755191967 (13) Afib Current Visit: No Status: Acute Code(s): I48.91 - UNSPECIFIED ATRIAL FIBRILLATION SNOMED Code(s): 34671472 (14) Obesity (BMI 30-39.9) Current Visit: No Status: Acute Code(s): E66.9 - OBESITY, UNSPECIFIED SNOMED Code(s): 934032088 (15) Type 2 diabetes mellitus with hyperglycemia Current Visit: No Status: Acute Code(s): E11.65 - TYPE 2 DIABETES MELLITUS WITH HYPERGLYCEMIA SNOMED Code(s): 718078724123065 Plan: Plan: 1. After physical examination of the patient, further discussion with the patient, and reviewing the imaging, we will currently plan to continue with conservative treatment at this time. Patient does have degenerative changes at her lumbar spine which could be further assessed with MRI imaging. She does admit to chronic back pain. She is able to ambulate in the room today and stand for me independently. She does not show specific weakness of her lower extremities. She does have some pain that radiates over the anterior shins. She has not worked through treatment with pain management for a number of years. We did discuss she could benefit with further treatment through pain management. Pain management is not currently in the hospital until this following 08/01/2021. We did discuss patient could follow with pain management in the outpatient setting. Given her significant number of comorbidities, recent syncopal episode and the fact that she has not worked through further conservative treatment options, we would not currently plan to proceed forward with acute further surgical intervention at her lumbar spine. We would plan to exhaust all conservative treatment options first. We did discuss if she were to fail conservative treatment options she could be candidate for further surgical intervention at her lumbar spine. We plan to obtain MRI imaging prior to discussing further surgical intervention at her lumbar spine. We did discuss MRI imaging could be obtained in the outpatient setting. From an orthopedic spine standpoint, patient is clear for discharge. Patient may follow-up with Gilmer Monahan PA-C or Dr. John Nur at [facility] in 2-3 weeks following discharge. 2. Patient will continue be seeing him other medical providers including medicine and cardiology. Time with Patient: Greater than 30 (Including obtaining history, physical examination, reviewing of imaging, and dictation.)
[2021-07-29] MEDS ORDERED: FUROSEMIDE 10 MG/ML 4 ML VIAL IV STA (14:16)
--- NOTE | 2021-07-29 14:24 | P.PN ---
Subjective Progress Note Date: 07/29/21 HISTORY OF PRESENT ILLNESS This is a 80-year-old female patient of Dr. Dawn/Henri Mejía DISC SANDER and Dr. Hernandez with past medical history of paroxysmal atrial fibrillation, hypertensi on, hyperlipidemia, COPD from secondhand smoke, diabetes mellitus type 2, hypothyroidism, prior CVA, chronic kidney disease stage III, and nonobstructive coronary artery disease noted on cardiac catheterization performed in 2014, obstructive sleep apnea unable to tolerate CPAP, degenerative disc disease status post pain injections and with Dr. Amaya for pain management. Asked hospitalization was in March 2021 for acute on chronic diastolic heart failure. At that time echocardiogram revealed EF of 55-60% with severe concentric left ventricular hypertrophy, moderate aortic stenosis, moderate mitral regurgitation, mild tricuspid regurgitation, mild pulmonary hypertension. Patient was at her eye doctor yesterday and was waiting for her appointment, didn't feel well and was having palpitations in her chest. Patient had a fall hitting her head and her lumbar spine with loss of consciousness. Patient was recently started on gabapentin on Patient presented to [facility] emergency center for evaluation. She is found to be afebrile, heart rate in the 50s and 60s, blood pressure initially 145/68 and pulse ox 96% on room air. This morning, blood pressure was 213/89 and orthostatics were negative. EKG was sinus bradycardia with left ventricular hypertrophy. CBC was unremarkable. INR 1.0. Electrolytes normal. BUN 34 and creatinine 1.58, this is patient's baseline. Blood sugar 295. Magnesium 2.4. Liver function tests were normal. Troponin negative. Urinalysis glucose 4+. No sign of infection. [place] virus PCR not detected. Chest x-ray reveals cardiomegaly, correlate for chronic interstitial lung disease. CAT scan of the brain and cervical spine revealed mild atrophy chronic appearing periventricular white matter ischemic changes. Cervical kyphosis. Degenerative non-cold vertebral joint hypertrophy contributing to foraminal narrowing. No acute osseous abnormality. Lumbar spine CAT scan revealed postsurgical change with nondiagnostic assessment due to artifact at the surgical levels. Remaining levels demonstrate no acute fracture. Disc bulging and hypertrophic changes L2-3 and L3-4 likely result in canal stenosis and foraminal encroachment. Short-term follow-up MRI recommended. She placed on the observation unit, consult with cardiology and medication changes were made to Norvasc changed to bedtime and discontinued Imdur, hold Las ix. Patient is quite upset at the time of evaluation because her significant other is in the emergency center and had a syncopal episode with underlying dementia. Xanax was started. 07/28: Blood pressure readings stable overnight this morning at 135/76 and at the highest at 2 AM was 168/78. Blood sugars are running between 131 and 232. She has been seen and followed by cardiology with the above noted medication changes and recommend discontinuing Imdur. Patient's significant other was admitted to the hospital yesterday and it appears anxiety level is minimally improved today. Patient is complaining of severe right hip pain and inability to walk. Right hip x-ray, orthopedic consult, PT and OT, baclofen added. Most likely patient will be ready for discharge tomorrow depending on recommendations from above. 07/29: Patient has been seen by orthopedics and she does not have a fracture in the right hip or any neurological changes to her bilateral extremities. Plan discontinue pain management and they have referred to Dr. Nur to evaluate lumbar spine aspect of her pain. Patient has been seen by orthopedic spine with plan for conservative treatment and possible pain management. Plan is to obtain MRI and possible surgical intervention of her lumbar spine. This will be done in the outpatient setting. Cardiology is following on an as-needed basis with planned follow-up with Dr. Hernandez in 1-2 weeks in the office. She has been afebrile, heart rate 84, blood pressure 143/62, pulse ox 90% on 2 L nasal cannula. Capillary blood glucose running between 120 and 226. Chest x-ray was obtained which revealed interval development of right lower lobe infiltrate likely combination of focal airspace opacities and small pleural effusion. There is diffuse interstitial edema within the right lung. Left lung remains clear. Patient will be given 1 dose of IV Lasix and started on antibiotics. Patient had mental status changes and seemed to be confused stating that she needed a blood transfusion. When asked about that now, patient recalls being confused and she is not sure why except that she's not been sleeping. Anticipate probable discharge home tomorrow. REVIEW OF SYSTEMS Constitutional: No fever, no chills, no night sweats. No weight change. No weakness, fatigue or lethargy. No daytime sleepiness. EENT: Reported headache. No blurred vision or double vision, no loss of vision. No loss of Hearing, no ringing in the ears, no dizziness. No nasal drainage or congestion. No epistaxis. No sore throat. Lungs: Reported shortness of breath, no cough, no sputum production. No wheezing. Cardiovascular: Reported chest pain, positive lower extremity edema. No palpitations. No paroxysmal nocturnal dyspnea. No orthopnea. No lighthe adedness or dizziness. Reports syncopal episodes. Abdominal: No abdominal pain. No nausea, vomiting. No diarrhea. No constipation. No bloody or tarry stools. No loss of appetite. Genitourinary: Reported dysuria, no increased frequency, no urgency. No urinary retention. Musculoskeletal: No myalgias. No muscle weakness, no gait dysfunction, no frequent falls. No back pain. No neck pain. Reports right hip pain. Reports lumbar spine pain. Reports Integumentary: No wounds, no lesions. No rash or pruritus. No unusual bruising. No change in hair or nails. Neurologic: No aphasia. No facial droop. No change in mentation. No head injury. No headache. No paralysis. No paresthesia. Psychiatric: No depression. Reports anxiety. No mood swings. Endocrine: Noted abnormal blood sugars. No weight change. PHYSICAL EXAMINATION Gen: This is a 80-year-old female, obese, patient is sitting on the edge of the bed and appears to be in no acute respiratory distress. Anxiety seems to be improved.. HEENT: Head is atraumatic, normocephalic. Pupils equal, round. Sclerae is anicteric. NECK: Supple. No JVD. No lymphadenopathy. No thyromegaly. LUNGS: Slightly diminished to bases but otherwise clear to auscultation. No wheezes or rhonchi. No intercostal retractions. HEART: Regular rate and rhythm. 3/6 systolic murmur. ABDOMEN: Soft. Bowel sounds are present. No masses. No tenderness. EXTREMITIES: 1+ bilateral pedal edema. No calf tenderness. Dorsalis pedis +2 bilaterally. Right hip tenderness, decreased range of motion due to pain. NEUROLOGICAL: Patient is awake, alert and oriented x3. Cranial nerves 2 through 12 are grossly intact. ASSESSMENT AND PLAN 1. Syncopal episode most likely vasovagal. Cardiology consult appreciated. Amlodipine changed to dosing at bedtime and Imdur were discontinued, Lasix on h old. Continue lisinopril 40 mg daily, hydralazine 100 mg 3 times daily. 2. Mild hypoxemia secondary to possible acute on Chronic diastolic heart failure and also early pneumonia. Continue Coreg 12.5 mg twice daily, 1 dose of IV Lasix 40 mg given now and resume Lasix 40 mg twice daily, start ceftriaxone 1 g daily. Continue oxygen therapy. 3. Diabetes mellitus type 2 uncontrolled with hyperglycemia. Continue Actos 15 mg daily, NovoLog mix 7525 in its with breakfast and 20 units with supper. Continue NovoLog scale before meals and at bedtime. A1c March 2021 was 10.5 4. Situational anxiety disorder. Xanax 25 mg twice daily added.. 5. Paroxysmal atrial fibrillation continue eliquis 5 mg twice daily, Coreg 12.5 mg twice daily. 6. Hypertension hypertensive cardiovascular disease. Continue amlodipine 10 mg hs, Coreg 12.5 mg twice daily, hydralazine 100 mg 3 times daily, lisinopril 40 mg daily. 7. Hypothyroidism. Continue levothyroxine 125 g daily. 8. Diabetic neuropathy. Continue gabapentin 100 mg daily. 9. 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 Continue albuterol nebulizer every 6 hours as needed. 10. Chronic kidney disease stage III. Avoid nephrotoxic agents, monitor kidney function. 11. Obstructive sleep apnea unable to tolerate CPAP. Patient will need to ree stablish with pulmonary medicine and outpatient follow-up for sleep study. 12. Degenerative disc disease with chronic pain. Follows with pain management with Dr. Amaya. 13. Hyperlipidemia. Continue Lipitor 80 mg at bedtime. 14. Chronic anemia. Continue ferrous sulfate 325 mg daily. 15. Right hip pain secondary to osteoarthritis and lumbar pain secondary to degenerative changes. Consult with orthopedics in orthopedic spine appreciated. Patient to follow-up with orthopedic spine in the outpatient setting for MRI of the lumbar spine. Continue baclofen GI prophylaxis. Protonix. DVT prophylaxis. Eliquis. DISCHARGE PLAN Home on Sunday Impression and plan of care have been directed as dictated by the signing physician. Bria Muhammad nurse practitioner acting as scribe for signing physician. Objective - Vital Signs Vital signs: Vital Signs Temp 99.3 F 07/29/21 07:00 Pulse 84 07/29/21 07:00 Resp 18 07/29/21 07:00 BP 143/62 07/29/21 07:00 Pulse Ox 90 L 07/29/21 07:00 Intake & Output 07/28/21 07/29/21 07/29/21 18:59 06:59 18:59 Intake Total 354 120 Balance 354 120 Intake: Oral 354 120 Other: Voiding Method Bedside Commode Bedside Commode # Voids 4 1 1 # Bowel Movements 1 - Labs CBC & Chem 7: 07/27/21 06:48 07/27/21 06:48 Labs: Abnormal Lab Results - Last 24 Hours (Table) 07/28/21 07/28/21 07/28/21 Range/Units 12:46 13:22 17:32 POC Glucose (mg/dL) 180 H 163 H 120 H (75-99) mg/dL 07/28/21 07/29/21 Range/Units 20:12 07:14 POC Glucose (mg/dL) 164 H 226 H (75-99) mg/dL
[2021-07-29] MEDS: FUROSEMIDE 40 MG TAB PO SCH (17:20)
[2021-07-29] MEDS: ACETAMINOPHEN TAB 500 MG TAB PO PRN (17:22)
[2021-07-29 17:28] LABS: Glucose,Whole Blood 291 mg/dL (75-99)
[2021-07-29 20:20] LABS: Glucose,Whole Blood 290 mg/dL (75-99)
[2021-07-29] MEDS: BACLOFEN 10 MG TAB PO PRN (21:29)
[2021-07-29] MEDS: ATORVASTATIN 80 MG TAB PO SCH (21:29)
[2021-07-29] MEDS: amLODIPine 5 MG TAB PO SCH (21:30)
[2021-07-30] MEDS: ALPRAZolam 0.25 MG TAB PO PRN ×3 (01:02→22:02)
[2021-07-30] MEDS: ACETAMINOPHEN TAB 500 MG TAB PO PRN ×2 (02:23→22:03)
[2021-07-30] MEDS: SODIUM CHLORIDE 0.9% 1,000 ML IV SCH ×2 (02:34→17:11)
[2021-07-30] MEDS: LEVOTHYROXINE 125 MCG TAB PO SCH (05:54)
[2021-07-30 08:07] LABS: Glucose,Whole Blood 180 mg/dL (75-99)
[2021-07-30] MEDS: INSULN ASP PRT/INSULIN ASPART 100 UNIT/ML 10 ML VIAL SQ SCH ×2 (08:36→17:48)
[2021-07-30] MEDS: FERROUS SULFATE 325 MG TAB PO SCH (08:36)
[2021-07-30] MEDS: APIXABAN 5 MG TAB PO SCH ×2 (08:36→22:03)
[2021-07-30] MEDS: INSULIN ASPART (NovoLOG) 100 UNIT/ML VIAL SQ SCH ×4 (08:36→22:02)
[2021-07-30] MEDS: carvediloL 12.5 MG TAB PO SCH ×2 (08:36→17:48)
[2021-07-30] MEDS: PIOGLITAZONE 15 MG TAB PO SCH (08:40)
[2021-07-30] MEDS: POTASSIUM CHLORIDE ER 20 MEQ TAB.ER PO SCH (09:58)
[2021-07-30] MEDS: lisinopriL 20 MG TAB PO SCH (09:58)
[2021-07-30] MEDS: FUROSEMIDE 40 MG TAB PO SCH ×2 (09:59→15:49)
[2021-07-30] MEDS: hydrALAZINE HCL 50 MG TAB PO SCH ×3 (09:59→22:02)
--- NOTE | 2021-07-30 10:52 | P.PN ---
Progress Note - Text Progress Note Date: 07/30/21 The patient is seen and examined at bedside. She is laying in bed and conversant. She is wearing nasal cannula. She says her legs are feeling better each day. She says that she has bronchitis and she is being actively treated for that. She denies any new syncopal episode or loss of consciousness. She denies any chest pain. She is on nasal cannula she is afebrile Lower extremities she has sustained dorsal flexion plantar flexion and EHL intact. She is able to lift her legs up off the bed independently. chronic low back pain chronic lower extremity radicular symptoms history of lumbar fusion over 20 years ago some improving lower extremity pain multiple medical issues with recurrent bronchitis continuing medicine management The patient does have a number of changes at her lumbar spine which are chronic for her and she may have had some slight exacerbation but this may be resolving to some degree. I do not have plans for surgical intervention at her lumbar spine but she could be a candidate for interventional pain management who has also been counseled on her. It is okay for her to treat with them on an outpatient basis as well if she is able to be discharged before they are able to see her. She is continuing management for her other medical issues including her current bronchitis as she states will need continued medical management. I think she is having appropriate treatment and from an orthopedic spine standpoint we can follow her up as outpatient basis.
--- NOTE | 2021-07-30 11:30 | P.PN ---
Subjective Progress Note Date: 07/30/21 HISTORY OF PRESENT ILLNESS This is a 80-year-old female patient of Dr. Dawn/Henri Mejía NP and Dr. 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 Amaya for pain management. Asked hospitalization was in March 2021 for acute on chronic diastolic heart failure. At that time echocardiogram revealed EF of 55-60% with severe concentric left ventricular hypertrophy, moderate aortic stenosis, moderate mitral regurgitation, mild tricuspid regurgitation, mild pulmonary hypertension. Patient was at her eye doctor yesterday and was waiting for her appointment, didn't feel well and was having palpitations in her chest. Patient had a fall hitting her head and her lumbar spine with loss of consciousness. Patient was recently started on gabapentin on Patient presented to [facility] emergency center for evaluation. She is found to be afebrile, heart rate in the 50s and 60s, blood pressure initially 145/68 and pulse ox 96% on room air. This morning, blood pressure was 213/89 and orthostatics were negative. EKG was sinus bradycardia with left ventricular hypertrophy. CBC was unremarkable. INR 1.0. Electrolytes normal. BUN 34 and creatinine 1.58, this is patient's baseline. Blood sugar 295. Magnesium 2.4. Liver function tests were normal. Troponin negative. Urinalysis glucose 4+. No sign of infection. Marin virus PCR not detected. Chest x-ray reveals cardiomegaly, correlate for chronic interstitial lung disease. CAT scan of the brain and cervical spine revealed mild atrophy chronic appearing periventricular white matter ischemic changes. Cervical kyphosis. Degenerative non-cold vertebral joint hypertrophy contributing to foraminal narrowing. No acute osseous abnormality. Lumbar spine CAT scan revealed postsurgical change with nondiagnostic assessment due to artifact at the surgical levels. Remaining levels demonstrate no acute fracture. Disc bulging and hypertrophic changes L2-3 and L3-4 likely result in canal stenosis and foraminal encroachment. Short-term follow-up MRI recommended. She placed on the observation unit, consult with cardiology and medication changes were made to Norvasc changed to bedtime and discontinued Imdur, hold Lasix. Patient is quite upset at the time of evaluation because her significant other is in the emergency center and had a syncopal episode with underlying dementia. Xanax was started. 07/28: Blood pressure readings stable overnight this morning at 135/76 and at the highest at 2 AM was 168/78. Blood sugars are running between 131 and 232. She has been seen and followed by cardiology with the above noted medication changes and recommend discontinuing Imdur. Patient's significant other was admitted to the hospital yesterday and it appears anxiety level is minimally improved today. Patient is complaining of severe right hip pain and inability to walk. Right hip x-ray, orthopedic consult, PT and OT, baclofen added. Most likely patient will be ready for discharge tomorrow depending on recommendations from above. 07/29: Patient has been seen by orthopedics and she does not have a fracture in the right hip or any neurological changes to her bilateral extremities. Plan discontinue pain management and they have referred to Dr. Nur to evaluate lumbar spine aspect of her pain. Patient has been seen by orthopedic spine with plan for conservative treatment and possible pain management. Plan is to obtain MRI and possible surgical intervention of her lumbar spine. This will be done i n the outpatient setting. Cardiology is following on an as-needed basis with planned follow-up with Dr. Hernandez in 1-2 weeks in the office. She has been afebrile, heart rate 84, blood pressure 143/62, pulse ox 90% on 2 L nasal cannula. Capillary blood glucose running between 120 and 226. Chest x-ray was obtained which revealed interval development of right lower lobe infiltrate likely combination of focal airspace opacities and small pleural effusion. There is diffuse interstitial edema within the right lung. Left lung remains clear. Patient will be given 1 dose of IV Lasix and started on antibiotics. Patient had mental status changes and seemed to be confused stating that she needed a blood transfusion. When asked about that now, patient recalls being confused and she is not sure why except that she's not been sleeping. Anticipate probable discharge home tomorrow. 07/30: She is anxious to go home today however she has not been ambulatory to the bathroom herself with a walker. She has been utilizing a bedside commode. Patient also has been on O2. On room air patient is pulse ox 86%. We will set patient up for supplemental home O2. Encourage ambulation to the bathroom with a walker. The patient is able to do those things today consideration for possible discharge tomorrow. If unable to get home O2 set up the patient will be discharged on Sunday. Patient is agreeable at this time with the plan. Patient did not have any confusion overnight. Patient remains afebrile, heart rate 60, respirations 16, blood pressure 155/77, pulse ox 84% on room air. REVIEW OF SYSTEMS Constitutional: No fever, no chills, no night sweats. No weight change. No weakness, fatigue or lethargy. No daytime sleepiness. EENT: Reported headache. No blurred vision or double vision, no loss of vision. No loss of Hearing, no ringing in the ears, no dizziness. No nasal drainage or congestion. No epistaxis. No sore throat. Lungs: Reported shortness of breath, no cough, no sputum production. No wheezing. Cardiovascular: Reported chest pain, positive lower extremity edema. No palpitations. No paroxysmal nocturnal dyspnea. No orthopnea. No lighth eadedness or dizziness. Reports syncopal episodes. Abdominal: No abdominal pain. No nausea, vomiting. No diarrhea. No constipation. No bloody or tarry stools. No loss of appetite. Genitourinary: Reported dysuria, no increased frequency, no urgency. No urinary retention. Musculoskeletal: No myalgias. No muscle weakness, no gait dysfunction, no frequent falls. No back pain. No neck pain. Reports right hip pain. Reports lumbar spine pain. Reports Integumentary: No wounds, no lesions. No rash or pruritus. No unusual bruising. No change in hair or nails. Neurologic: No aphasia. No facial droop. No change in mentation. No head injury. No headache. No paralysis. No paresthesia. Psychiatric: No depression. Reports anxiety. No mood swings. Endocrine: Noted abnormal blood sugars. No weight change. PHYSICAL EXAMINATION Gen: This is a 80-year-old female, obese, patient is sitting on the edge of the bed and appears to be in no acute respiratory distress. Anxiety seems to be improved.. HEENT: Head is atraumatic, normocephalic. Pupils equal, round. Sclerae is anicteric. NECK: Supple. No JVD. No lymphadenopathy. No thyromegaly. LUNGS: Slightly diminished to bases but otherwise clear to auscultation. No wheezes or rhonchi. No intercostal retractions. HEART: Regular rate and rhythm. 3/6 systolic murmur. ABDOMEN: Soft. Bowel sounds are present. No masses. No tenderness. EXTREMITIES: 1+ bilateral pedal edema. No calf tenderness. Dorsalis pedis +2 bilaterally. Right hip tenderness, decreased range of motion due to pain. NEUROLOGICAL: Patient is awake, alert and oriented x3. Cranial nerves 2 through 12 are grossly intact. ASSESSMENT AND PLAN 1. Syncopal episode most likely vasovagal. Cardiology consult appreciated. Amlodipine changed to dosing at bedtime and Imdur were discontinued, Lasix on hold. Continue lisinopril 40 mg daily, hydralazine 100 mg 3 times daily. 2. Mild hypoxemia secondary to possible acute on Chronic diastolic heart failure and also early pneumonia. Continue Coreg 12.5 mg twice daily, 1 dose of IV Lasix 40 mg given now and resume Lasix 40 mg twice daily, start ceftriaxone 1 g daily. Continue oxygen therapy. Evaluation for home O2. 3. Diabetes mellitus type 2 uncontrolled with hyperglycemia. Continue Actos 15 mg daily, NovoLog mix 7525 in its with breakfast and 20 units with supper. Continue NovoLog scale before meals and at bedtime. A1c March 2021 was 10.5 4. Situational anxiety disorder. Xanax 25 mg twice daily added.. 5. Paroxysmal atrial fibrillation continue eliquis 5 mg twice daily, Coreg 12.5 mg twice daily. 6. Hypertension hypertensive cardiovascular disease. Continue amlodipine 10 mg hs, Coreg 12.5 mg twice daily, hydralazine 100 mg 3 times daily, lisinopril 40 mg daily. 7. Hypothyroidism. Continue levothyroxine 125 g daily. 8. Diabetic neuropathy. Continue gabapentin 100 mg daily. 9. 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 Continue albuterol nebulizer every 6 hours as needed. 10. Chronic kidney disease stage III. Avoid nephrotoxic agents, monitor kidney function. 11. Obstructive sleep apnea unable to tolerate CPAP. Patient will need to reestablish with pulmonary medicine and outpatient follow-up for sleep study. 12. Degenerative disc disease with chronic pain. Follows with pain management with Dr. Amaya. 13. Hyperlipidemia. Continue Lipitor 80 mg at bedtime. 14. Chronic anemia. Continue ferrous sulfate 325 mg daily. 15. Right hip pain secondary to osteoarthritis and lumbar pain secondary to deg enerative changes. Consult with orthopedics in orthopedic spine appreciated. Patient to follow-up with orthopedic spine in the outpatient setting for MRI of the lumbar spine. Continue baclofen. Encouraged to utilize for ambulation. GI prophylaxis. Protonix. DVT prophylaxis. Eliquis. DISCHARGE PLAN Home on Sunday or Sunday Impression and plan of care have been directed as dictated by the signing physician. Sameera Smith nurse practitioner acting as scribe for signing physician. Objective - Vital Signs Vital signs: Vital Signs Temp 97.6 F 07/30/21 07:00 Pulse 75 07/30/21 10:43 Resp 16 07/30/21 08:00 BP 155/75 07/30/21 07:00 Pulse Ox 84 L 07/30/21 10:43 Intake & Output 07/29/21 07/30/21 07/30/21 18:59 06:59 18:59 Intake Total 360 Output Total 2 Balance 360 -2 Intake: Oral 360 Output: Urine 2 Other: Voiding Method Bedside Commode Bedside Commode Toilet # Voids 1 3 # Bowel Movements 1 1 - Labs CBC & Chem 7: 07/27/21 06:48 07/27/21 06:48 Labs: Abnormal Lab Results - Last 24 Hours (Table) 07/29/21 07/29/21 07/29/21 Range/Units 12: 17:25 20:19 POC Glucose (mg/dL) 238 H 291 H 290 H (75-99) mg/dL 07/30/21 Range/Units 08:06 POC Glucose (mg/dL) 180 H (75-99) mg/dL
[2021-07-30 12:54] LABS: Glucose,Whole Blood 248 mg/dL (75-99)
[2021-07-30 17:12] LABS: Glucose,Whole Blood 223 mg/dL (75-99)
[2021-07-30 20:56] LABS: Glucose,Whole Blood 189 mg/dL (75-99)
[2021-07-30] MEDS: amLODIPine 5 MG TAB PO SCH (22:02)
[2021-07-30] MEDS: ATORVASTATIN 80 MG TAB PO SCH (22:02)
[2021-07-31] MEDS: BACLOFEN 10 MG TAB PO PRN (01:01)
[2021-07-31] MEDS: traMADol 50 MG TAB PO PRN (03:02)
[2021-07-31] MEDS: LEVOTHYROXINE 125 MCG TAB PO SCH (06:14)
[2021-07-31] MEDS: SODIUM CHLORIDE 0.9% 1,000 ML IV SCH (06:15)
[2021-07-31 08:07] LABS: Glucose,Whole Blood 158 mg/dL (75-99)
[2021-07-31] MEDS: APIXABAN 5 MG TAB PO SCH (08:23)
[2021-07-31] MEDS: POTASSIUM CHLORIDE ER 20 MEQ TAB.ER PO SCH (08:23)
[2021-07-31] MEDS: carvediloL 12.5 MG TAB PO SCH (08:24)
[2021-07-31] MEDS: INSULIN ASPART (NovoLOG) 100 UNIT/ML VIAL SQ SCH (08:24)
[2021-07-31] MEDS: INSULN ASP PRT/INSULIN ASPART 100 UNIT/ML 10 ML VIAL SQ SCH (08:24)
[2021-07-31] MEDS: hydrALAZINE HCL 50 MG TAB PO SCH (08:24)
[2021-07-31] MEDS: FERROUS SULFATE 325 MG TAB PO SCH (08:24)
[2021-07-31] MEDS: FUROSEMIDE 40 MG TAB PO SCH (08:24)
[2021-07-31] MEDS: lisinopriL 20 MG TAB PO SCH (08:24)
[2021-07-31] MEDS: PIOGLITAZONE 15 MG TAB PO SCH (08:25)
[2021-07-31 09:27] VITALS: BP 173/82; PULSE 62; RESP 16; TEMP 97.9
--- NOTE | 2021-07-31 10:40 | P.DS ---
<Sameera Smith - Last Filed: 07/31/21 10:37> Hospital Course: This is a 80-year-old female patient of Dr. Dawn/Henri Mejía NP and Dr. 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 Amaya for pain management. Asked hospitalization was in March 2021 for acute on chronic diastolic heart failure. At that time echocardiogram revealed EF of 55-60% with severe concentric left ventricular hypertrophy, moderate aortic stenosis, moderate mitral regurgitation, mild tricuspid regurgitation, mild pulmonary hypertension. Patient was at her eye doctor yesterday and was waiting for her appointment, didn't feel well and was having palpitations in her chest. Patient had a fall hitting her head and her lumbar spine with loss of consciousness. Patient was recently started on gabapentin on Patient presented to [facility] emergency center for evaluation. She is found to be afebrile, heart rate in the 50s and 60s, blood pressure initially 145/68 and pulse ox 96% on room air. This morning, blood pressure was 213/89 and orthostatics were negative. EKG was sinus bradycardia with left ventricular hypertrophy. CBC was unremarkable. INR 1.0. Electrolytes normal. BUN 34 and creatinine 1.58, this is patient's baseline. Blood sugar 295. Magnesium 2.4. Liver function tests were normal. Troponin negative. Urinalysis glucose 4+. No sign of infection. Marin virus PCR not detected. Chest x-ray reveals cardiomegaly, correlate for chronic interstitial lung disease. CAT scan of the brain and cervical spine revealed mild atrophy chronic appearing periventricular white matter ischemic changes. Cervical kyphosis. Degenerative non-cold vertebral joint hypertrophy contributing to foraminal narrowing. No acute osseous abnormality. Lumbar spine CAT scan revealed postsurgical change with nondiagnostic assessment due to artifact at the surgical levels. Remaining levels demonstrate no acute fracture. Disc bulging and hypertrophic changes L2-3 and L3-4 likely result in canal stenosis and foraminal encroachment. Short-term follow-up MRI recommended. She placed on the observation unit, consult with cardiology and medication roque ges were made to [facility] changed to bedtime and discontinued Imdur, hold Lasix. Patient is quite upset at the time of evaluation because her significant other is in the emergency center and had a syncopal episode with underlying dementia. Xanax was started. 07/28: Blood pressure readings stable overnight this morning at 135/76 and at the highest at 2 AM was 168/78. Blood sugars are running between 131 and 232. She has been seen and followed by cardiology with the above noted medication changes and recommend discontinuing Imdur. Patient's significant other was admitted to the hospital yesterday and it appears anxiety level is minimally improved today. Patient is complaining of severe right hip pain and inability to walk. Right hip x-ray, orthopedic consult, PT and OT, baclofen added. Most likely patient will be ready for discharge tomorrow depending on recommendations from above. 07/29: Patient has been seen by orthopedics and she does not have a fracture in the right hip or any neurological changes to her bilateral extremities. Plan discontinue pain management and they have referred to Dr. Nur to evaluate lumbar spine aspect of her pain. Patient has been seen by orthopedic spine with plan for conservative treatment and possible pain management. Plan is to obtain MRI and possible surgical intervention of her lumbar spine. This will be done in the outpatient setting. Cardiology is following on an as-needed basis with planned follow-up with Dr. Hernandez in 1-2 weeks in the office. She has been afebrile, heart rate 84, blood pressure 143/62, pulse ox 90% on 2 L nasal cannula. Capillary blood glucose running between 120 and 226. Chest x-ray was obtained which revealed interval development of right lower lobe infiltrate likely combination of focal airspace opacities and small pleural effusion. There is diffuse interstitial edema within the right lung. Left lung remains clear. Patient will be given 1 dose of IV Lasix and started on antibiotics. Patient had mental status changes and seemed to be confused stating that she needed a blood transfusion. When asked about that now, patient recalls being confused and she is not sure why except that she's not been sleeping. Anticipate probable discharge home tomorrow. 07/30: She is anxious to go home today however she has not been ambulatory to the bathroom herself with a walker. She has been utilizing a bedside commode. Patient also has been on O2. On room air patient is pulse ox 86%. We will set patient up for supplemental home O2. Encourage ambulation to the bathroom with a walker. The patient is able to do those things today consideration for possible discharge tomorrow. If unable to get home O2 set up the patient will be discharged on Sunday. Patient is agreeable at this time with the plan. Patient did not have any confusion overnight. Patient remains afebrile, heart rate 60, respirations 16, blood pressure 155/77, pulse ox 84% on room air. 07/31: Patient is found resting at the edge of the bed. Patient states that she was ambulatory yesterday throughout the halls without any difficulties. O2 is at the bedside. Patient is anxious to go home today. Stating that she has help at home. Patient has been utilizing walker. Discharge diagnosis: 1. Syncopal episode most likely vasovagal. 2. Mild hypoxemia secondary to possible acute on Chronic diastolic heart failure and also early pneumonia. 3. Diabetes mellitus type 2 uncontrolled with hyperglycemia. 4. Situational anxiety disorder. 5. Paroxysmal atrial fibrillation 6. Hypertension hypertensive cardiovascular disease. 7. Hypothyroidism. 8. Diabetic neuropathy. 9. 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 10. Chronic kidney disease stage III. 11. Obstructive sleep apnea unable to tolerate CPAP. 12. Degenerative disc disease with chronic pain. 13. Hyperlipidemia. 14. Chronic anemia. 15. Right hip pain secondary to osteoarthritis and lumbar pain secondary to degenerative changes. DISCHARGE DISPOSITION Home on O2 with self-care Impression and plan of care have been directed as dictated by the signing physician. Sameera Smith nurse practitioner acting as scribe for signing physician. Patient Condition at Discharge: Stable Plan - Discharge Summary Discharge Rx Participant: No New Discharge Prescriptions: New Baclofen [Lioresal] 5 mg PO TID PRN #90 tab PRN Reason: Muscle Spasm Cefuroxime [Ceftin] 250 mg PO BID 7 Days #14 tab Continue Atorvastatin [Lipitor] 80 mg PO HS Apixaban [Eliquis] 5 mg PO BID #60 tab lisinopriL 40 mg PO DAILY hydrALAZINE HCL [Apresoline] 100 mg PO TID Levothyroxine Sodium [Synthroid] 125 mcg PO DAILY #30 tab Insulin NPL/Insulin Lispro [humaLOG MIX 75-25 VIAL] 20 unit SQ W/SUPPER Insulin NPL/Insulin Lispro [humaLOG MIX 75-25 VIAL] 30 unit SQ W/BRKFST Albuterol Sulfate [Proair Hfa] 2 puff INHALATION RT-Q6H PRN PRN Reason: Dyspnea Ergocalciferol [Vitamin D2 (DRISDOL)] 50,000 unit PO TU Pioglitazone [Actos] 15 mg PO DAILY Acetaminophen [Tylenol Extra Strength] 500 - 1,000 mg PO Q8H PRN PRN Reason: Pain Ferrous Sulfate [Feosol] 325 mg PO DAILY Gabapentin [Neurontin] 100 mg PO DAILY amLODIPine [Norvasc] 5 mg PO DAILY #30 tab carvediloL [Coreg*] 12.5 mg PO BID-W/MEALS #60 tab Potassium Chloride ER [K-Dur 20] 20 meq PO DAILY #30 tab Furosemide [Lasix] 40 mg PO BID@0900,1600 #60 tab Discontinued Isosorbide Mononitrate ER [Imdur] 60 mg PO DAILY #30 tablet Discharge Medication List Atorvastatin [Lipitor] 80 mg PO HS 06/30/18 [History] Apixaban [Eliquis] 5 mg PO BID #60 tab 07/04/18 [Rx] hydrALAZINE HCL [Apresoline] 100 mg PO TID 01/06/19 [History] lisinopriL 40 mg PO DAILY 01/06/19 [History] Levothyroxine Sodium [Synthroid] 125 mcg PO DAILY #30 tab 01/08/19 [Rx] Insulin NPL/Insulin Lispro [humaLOG MIX 75-25 VIAL] 20 unit SQ W/SUPPER 05/30/20 [History] Insulin NPL/Insulin Lispro [humaLOG MIX 75-25 VIAL] 30 unit SQ W/BRKFST 06/05/20 [History] Albuterol Sulfate [Proair Hfa] 2 puff INHALATION RT-Q6H PRN 07/19/20 [History] Ergocalciferol [Vitamin D2 (DRISDOL)] 50,000 unit PO TU 07/19/20 [History] Pioglitazone [Actos] 15 mg PO DAILY 09/13/20 [History] Acetaminophen [Tylenol Extra Strength] 500 - 1,000 mg PO Q8H PRN 10/14/20 [History] Ferrous Sulfate [Feosol] 325 mg PO DAILY 04/01/21 [History] Gabapentin [Neurontin] 100 mg PO DAILY 04/01/21 [History] amLODIPine [Norvasc] 5 mg PO DAILY #30 tab 04/05/21 [Rx] Furosemide [Lasix] 40 mg PO BID@0900,1600 #60 tab 05/11/21 [Rx] Potassium Chloride ER [K-Dur 20] 20 meq PO DAILY #30 tab 05/11/21 [Rx] carvediloL [Coreg*] 12.5 mg PO BID-W/MEALS #60 tab 05/11/21 [Rx] Baclofen [Lioresal] 5 mg PO TID PRN #90 tab 07/31/21 [Rx] Cefuroxime [Ceftin] 250 mg PO BID 7 Days #14 tab 07/31/21 [Rx] Follow up Appointment(s)/Referral(s): Renée Hernandez MD [STAFF PHYSICIAN] - 2 Weeks Gilmer Monahan PAC [PHYSICIAN [facility]] - 3 Weeks (Patient may follow-up with Gilmer Monahan PA-C or Dr. John Nur at [facility] in 3 weeks following discharge. ) Dontae Dawn MD [Primary Care Provider] - 1-2 days Patient Instructions/Handouts: Syncope (DC) Discharge Disposition: HOME SELF-CARE Plan of Treatment: Greater than 35 minutes was utilized and coordinating patient's discharge. <Fritz Mayen - Last Filed: 08/02/21 06:07> Providers Date of admission: 07/29/21 10:19 Attending physician: Melodie Pastrana MD Consults: 07/26/21 14:29 Consult Physician Urgent Consulting Provider: [facility] Consult Reason/Comments: acute syncope, bradycardia Do you want consulting provider notified?: Yes 07/28/21 11:00 Consult Physician Routine Consulting Provider: Jason Darden Consult Reason/Comments: right hip pain Do you want consulting provider notified?: Yes 07/28/21 15:28 Consult Physician Routine Consulting Provider: Mary Lou Nur Consult Reason/Comments: Low back pain; previous fusion in 1999. Known patient Do you want consulting provider notified?: Already Contacted Primary care physician: Dontae Dawn
[2021-08-02] MEDS ORDERED: ERGOCALCIFEROL 1,250 MCG (50,000 IU) CAPSULE PO SCH (09:00)
== END 2021-07-31 09:38 | disposition home or self-care (01) | DRG 312 ==
LOC: EC 10:02 → 6NMEDSUR 14:30 → OBSVTOIN 07-29 10:19
PROVIDERS: ADMIT Internal Medicine; ATTEND Internal Medicine
DX: R55 Syncope and collapse (principal); I50.33 Acute on chronic diastolic (congestive) heart failure; S06.0X9A Concussion with loss of consciousness of unspecified duration, initial encounter; I13.0 Hypertensive heart and chronic kidney disease with heart failure and stage 1 through stage 4 chronic kidney disease, or unspecified chronic kidney disease; J84.9 Interstitial pulmonary disease, unspecified; Z20.822 Contact with and (suspected) exposure to COVID-19; Z68.36 Body mass index [BMI] 36.0-36.9, adult; R09.02 Hypoxemia; E66.9 Obesity, unspecified; D64.9 Anemia, unspecified; I08.3 Combined rheumatic disorders of mitral, aortic and tricuspid valves; I27.20 Pulmonary hypertension, unspecified; E03.9 Hypothyroidism, unspecified; E11.22 Type 2 diabetes mellitus with diabetic chronic kidney disease; E11.40 Type 2 diabetes mellitus with diabetic neuropathy, unspecified; E11.65 Type 2 diabetes mellitus with hyperglycemia; E78.5 Hyperlipidemia, unspecified; F03.90 Unspecified dementia, unspecified severity, without behavioral disturbance, psychotic disturbance, mood disturbance, and anxiety; F41.9 Anxiety disorder, unspecified; G47.33 Obstructive sleep apnea (adult) (pediatric); G89.29 Other chronic pain; I25.10 Atherosclerotic heart disease of native coronary artery without angina pectoris; I48.0 Paroxysmal atrial fibrillation; I49.3 Ventricular premature depolarization; J44.9 Chronic obstructive pulmonary disease, unspecified; M40.202 Unspecified kyphosis, cervical region; M47.26 Other spondylosis with radiculopathy, lumbar region; M46.92 Unspecified inflammatory spondylopathy, cervical region; G31.89 Other specified degenerative diseases of nervous system; E55.9 Vitamin D deficiency, unspecified; M48.061 Spinal stenosis, lumbar region without neurogenic claudication; F41.8 Other specified anxiety disorders; R01.1 Cardiac murmur, unspecified; N18.30 Chronic kidney disease, stage 3 unspecified; W19.XXXA Unspecified fall, initial encounter; Z77.22 Contact with and (suspected) exposure to environmental tobacco smoke (acute) (chronic); Z79.01 Long term (current) use of anticoagulants; Z79.4 Long term (current) use of insulin; Z79.84 Long term (current) use of oral hypoglycemic drugs; Z79.890 Hormone replacement therapy; Z79.899 Other long term (current) drug therapy; Z86.73 Personal history of transient ischemic attack (TIA), and cerebral infarction without residual deficits; Z85.828 Personal history of other malignant neoplasm of skin; Z87.01 Personal history of pneumonia (recurrent); Z96.1 Presence of intraocular lens; Z98.1 Arthrodesis status; Z88.1 Allergy status to other antibiotic agents; Z88.8 Allergy status to other drugs, medicaments and biological substances; Z88.2 Allergy status to sulfonamides; Z82.49 Family history of ischemic heart disease and other diseases of the circulatory system; Z82.3 Family history of stroke
CPT/HCPCS: 36415; 70450; 71045; 71046; 72125; 72131; 73502; 80048; 80053; 81003; 83735; 84484; 85025; 85379; 85610; 85730; 87635; 93005; 96361; 96374; 99285

== ENCOUNTER 2021-08-06 15:48 | Inpatient (IN) | payer MEDICARE, OTHER ==
[2021-08-06 17:01] LABS: Albumin 3.7 g/dL (3.5-5.0); Potassium 4.5 mmol/L (3.5-5.1); Total Bilirubin 0.6 mg/dL (0.2-1.3); Total Protein 7.1 g/dL (6.3-8.2)
[2021-08-06 17:04] LABS: Basophils # (A) 0.1 k/uL (0-0.2); Basophils % (A) 1 %; Eosinophils # (A) 0.2 k/uL (0-0.7); Eosinophils % (A) 2 %; HCT 39.7 % (34.0-46.0); HGB 12.6 gm/dL (11.4-16.0); Hypochromasia Slight; Lymphocytes # (A) 1.1 k/uL (1.0-4.8); Lymphocytes % (A) 9 %; MCH 28.2 pg (25.0-35.0); MCHC 31.7 g/dL (31.0-37.0); MCV 89.1 fL (80.0-100.0); Mean Platelet Volume 7.6; Monocytes # (A) 1.1 k/uL (0-1.0); Monocytes % (A) 10 %; Neutrophils # (A) 8.5 k/uL (1.3-7.7); Neutrophils % (A) 76 %; Platelet Count 361 k/uL (150-450); RBC 4.46 m/uL (3.80-5.40); RDW 14.1 % (11.5-15.5); WBC 11.2 k/uL (3.8-10.6)
[2021-08-06] MEDS ORDERED: SODIUM CHLORIDE 0.9% 500 ML 500 ML IV STA (17:25)
[2021-08-06] MEDS ORDERED: SODIUM CHLORIDE 0.9% 1,000 ML IV STA (17:25)
--- NOTE | 2021-08-06 17:33 | ED ---
Dizziness HPI - General Chief Complaint: Dizziness Stated Complaint: Dizziness Time Seen by Provider: 08/06/21 16:00 Source: patient, family, EMS, RN notes reviewed, old records reviewed Mode of arrival: EMS Limitations: physical limitation - History of Present Illness Initial Comments: 80-year-old female history of multiple medical problems who presents by EMS with complaints of feeling like she was and her she felt like she was so weak lightheaded no reports of fevers chills sweats patient is somewhat of no reports of fevers chills sweats nausea vomiting she does complain of a headache she was not sure she took her medications morning she was found have elevated blood pressure. a vague historian at this time. MD Complaint: dizziness, lightheadedness, other - Related Data Home Medications Medication Instructions Recorded Confirmed Atorvastatin [Lipitor] 80 mg PO HS 06/30/18 07/26/21 hydrALAZINE HCL [Apresoline] 100 mg PO TID 01/06/19 07/26/21 lisinopriL 40 mg PO DAILY 01/06/19 07/26/21 Insulin NPL/Insulin Lispro 20 unit SQ W/SUPPER 05/30/20 07/26/21 [humaLOG MIX 75-25 VIAL] Insulin NPL/Insulin Lispro 30 unit SQ W/BRKFST 06/05/20 07/26/21 [humaLOG MIX 75-25 VIAL] Albuterol Sulfate [Proair Hfa] 2 puff INHALATION RT-Q6H PRN 07/19/20 07/26/21 Ergocalciferol [Vitamin D2 50,000 unit PO TU 07/19/20 07/26/21 (DRISDOL)] Pioglitazone [Actos] 15 mg PO DAILY 09/13/20 07/26/21 Acetaminophen [Tylenol Extra 500 - 1,000 mg PO Q8H PRN 10/14/20 07/26/21 Strength] Ferrous Sulfate [Feosol] 325 mg PO DAILY 04/01/21 07/26/21 Gabapentin [Neurontin] 100 mg PO DAILY 04/01/21 07/26/21 Previous Rx's Medication Instructions Recorded Apixaban [Eliquis] 5 mg PO BID #60 tab 07/04/18 Levothyroxine Sodium [Synthroid] 125 mcg PO DAILY #30 tab 01/08/19 amLODIPine [Norvasc] 5 mg PO DAILY #30 tab 04/05/21 Furosemide [Lasix] 40 mg PO BID@0900,1600 #60 tab 05/11/21 Potassium Chloride ER [K-Dur 20] 20 meq PO DAILY #30 tab 05/11/21 carvediloL [Coreg*] 12.5 mg PO BID-W/MEALS #60 tab 05/11/21 Baclofen [Lioresal] 5 mg PO TID PRN #90 tab 07/31/21 Cefuroxime [Ceftin] 250 mg PO BID 7 Days #14 tab 07/31/21 Allergies Allergy/AdvReac Type Severity Reaction Status Date / Time azithromycin Allergy Rash/Hives Verified 08/06/21 16:01 [From Zithromax Z-Jeanmarie] methylprednisolone Allergy Rash/Hives Verified 08/06/21 16:01 [From Medrol] trimethoprim [From Bactrim] Allergy Rash/Hives Verified 08/06/21 16:01 hydrochlorothiazide AdvReac lost Verified 08/06/21 16:01 balance and fell sulfamethoxazole AdvReac Rash/Hives Verified 08/06/21 16:01 [From Bactrim] Review of Systems ROS Statement: Those systems with pertinent positive or pertinent negative responses have been documented in the HPI. ROS Other: All systems not noted in ROS Statement are negative. Past Medical History Past Medical History: Cancer, Pneumonia Additional Past Medical History / Comment(s): Stage III Kidney Disease, hx Pneumonia with Sepsis, no CPAP use, Vitamin D Deficiency, chronic low back pain, frequent constipation, hx skin cancer. History of Any Multi-Drug Resistant Organisms: None Reported Past Surgical History: Heart Catheterization Additional Past Surgical History / Comment(s): Cardiac caths , lap band placed/since removed, low back surgery, L carpal tunnel release X2, skin cancer removal, colonoscopies, bilateral cataract removals/lens implants. Past Anesthesia/Blood Transfusion Reactions: Previous Problems w/ Anesthesia Additional Past Anesthesia/Blood Transfusion Reaction / Comment(s): "Had too much anesthesia in 2007 for lap band removal, had to be bagged." Past Psychological History: No Psychological Hx Reported Smoking Status: Never smoker, Second hand smoke exposure Past Alcohol Use History: None Reported Past Drug Use History: None Reported - Past Family History Sister(s) Family Medical History: Myocardial Infarction ([place]) Brother(s) Family Medical History: Cancer Additional Family Medical History / Comment(s): Colon Cancer. Mother Family Medical History: Dementia Additional Family Medical History / Comment(s): Mother of dementia at the age of 89yrs. Father Family Medical History: Cancer Additional Family Medical History / Comment(s): Pt states her father was treated for a sinus infection but really had leukemia and of this at the age of 72 yrs. General Exam - General Exam Comments Initial Comments: This is a well-developed well-nourished awake alert oriented 3 female Limitations: physical limitation General appearance: alert, in no apparent distress Head exam: Present: atraumatic, normocephalic, normal inspection Eye exam: Present: normal appearance, PERRL, EOMI. Absent: scleral icterus, conjunctival injection, periorbital swelling ENT exam: Present: mucous membranes dry Neck exam: Present: normal inspection, full ROM, other (No stridor JVD or bruits). Absent: tenderness, meningismus, lymphadenopathy Respiratory exam: Present: decreased breath sounds. Absent: respiratory distress, wheezes, rales, rhonchi (Right lower lobe), stridor Cardiovascular Exam: Present: regular rate, normal rhythm, normal heart sounds. Absent: systolic murmur, diastolic murmur, rubs, gallop, clicks GI/Abdominal exam: Present: soft, normal bowel sounds. Absent: distended, tenderness, guarding, rebound, rigid Extremities exam: Present: normal inspection, full ROM, normal capillary refill. Absent: tenderness, pedal edema, joint swelling, calf tenderness Back exam: Present: normal inspection Neurological exam: Present: alert, oriented X3, CN II-XII intact Psychiatric exam: Present: normal affect, normal mood Skin exam: Present: warm, dry, intact, normal color. Absent: rash Course Vital Signs 08/06/21 08/06/21 08/06/21 15:51 16:39 17:50 Temperature 97.9 F Pulse Rate 72 60 60 Respiratory 18 18 18 Rate Blood Pressure 224/89 205/92 183/72 O2 Sat by Pulse 92 L 96 96 Oximetry 08/06/21 18:38 Temperature Pulse Rate 66 Respiratory 18 Rate Blood Pressure 182/84 O2 Sat by Pulse 94 L Oximetry EKG Findings - EKG Results: EKG: interpreted by ERMD, sinus rhythm, normal axis, normal QRS, normal ST/T, no acute changes (EKG shows normal sinus rhythm a 72 [place] interval 138 QRS duration 110 QT since QTC 432/473) Medical Decision Making - Medical Decision Making I did reevaluate patient most occasions she seem to desaturate with verbal conversation patient will be readmitted for outpatient treatment failure. Case discussed with Dr. Temple - Lab Data Result diagrams: 08/06/21 17:40 08/06/21 16:41 Lab Results 08/06/21 08/06/21 08/06/21 Range/Units 16:41 16:41 16:41 WBC 11.2 H (3.8-10.6) k/uL RBC 4.46 (3.80-5.40) m/uL Hgb 12.6 (11.4-16.0) gm/dL Hct 39.7 (34.0-46.0) % MCV 89.1 (80.0-100.0) fL MCH 28.2 (25.0-35.0) pg MCHC 31.7 (31.0-37.0) g/dL RDW 14.1 (11.5-15.5) % Plt Count 361 (150-450) k/uL MPV 7.6 Neutrophils % 76 % Lymphocytes % 9 % Monocytes % 10 % Eosinophils % 2 % Basophils % 1 % Neutrophils # 8.5 H (1.3-7.7) k/uL Lymphocytes # 1.1 (1.0-4.8) k/uL Monocytes # 1.1 H (0-1.0) k/uL Eosinophils # 0.2 (0-0.7) k/uL Basophils # 0.1 (0-0.2) k/uL Hypochromasia Slight PT 11.0 (9.0-12.0) sec INR 1.0 (<1.2) Sodium 138 (137-145) mmol/L Potassium 4.5 (3.5-5.1) mmol/L Chloride 102 (98-107) mmol/L Carbon Dioxide 27 (22-30) mmol/L Anion Gap 9 mmol/L BUN 23 H (7-17) mg/dL Creatinine 1.18 H (0.52-1.04) mg/dL Est GFR (CKD-EPI)AfAm 51 (>60 ml/min/1.73 sqM) Est GFR (CKD-EPI)NonAf 44 (>60 ml/min/1.73 sqM) Glucose 189 H (74-99) mg/dL Plasma Lactic Acid Terry (0.7-2.0) mmol/L Calcium 9.0 (8.4-10.2) mg/dL Total Bilirubin 0.6 (0.2-1.3) mg/dL AST 33 (14-36) U/L ALT 26 (4-34) U/L Alkaline Phosphatase 112 (38-126) U/L Ammonia (<30) umol/L Total Creatine Kinase (30-135) U/L CK-MB (CK-2) (0.0-2.4) ng/mL CK-MB (CK-2) Rel Index Troponin I (0.000-0.034) ng/mL NT-Pro-B Natriuret Pep pg/mL Total Protein 7.1 (6.3-8.2) g/dL Albumin 3.7 (3.5-5.0) g/dL Urine Color Urine Appearance (Clear) Urine pH (5.0-8.0) Ur Specific [place] (1.001-1.035) Urine Protein (Negative) Urine Glucose (UA) (Negative) Urine Ketones (Negative) Urine Blood (Negative) Urine Nitrite (Negative) Urine Bilirubin (Negative) Urine Urobilinogen (<2.0) mg/dL Ur Leukocyte Esterase (Negative) Urine RBC (0-5) /hpf Urine WBC (0-5) /hpf Ur Squamous Epith Cells (0-4) /hpf Urine Bacteria (None) /hpf Urine Mucus (None) /hpf 08/06/21 08/06/21 08/06/21 Range/Units 16:41 17:32 17:40 WBC 11.4 H (3.8-10.6) k/uL RBC 4.45 (3.80-5.40) m/uL Hgb 12.3 (11.4-16.0) gm/dL Hct 39.3 (34.0-46.0) % MCV 88.1 (80.0-100.0) fL MCH 27.6 (25.0-35.0) pg MCHC 31.3 (31.0-37.0) g/dL RDW 14.1 (11.5-15.5) % Plt Count 364 (150-450) k/uL MPV 7.6 Neutrophils % 77 % Lymphocytes % 10 % Monocytes % 9 % Eosinophils % 2 % Basophils % 0 % Neutrophils # 8.8 H (1.3-7.7) k/uL Lymphocytes # 1.1 (1.0-4.8) k/uL Monocytes # 1.0 (0-1.0) k/uL Eosinophils # 0.2 (0-0.7) k/uL Basophils # 0.1 (0-0.2) k/uL Hypochromasia Slight PT (9.0-12.0) sec INR (<1.2) Sodium (137-145) mmol/L Potassium (3.5-5.1) mmol/L Chloride (98-107) mmol/L Carbon Dioxide (22-30) mmol/L Anion Gap mmol/L BUN (7-17) mg/dL Creatinine (0.52-1.04) mg/dL Est GFR (CKD-EPI)AfAm (>60 ml/min/1.73 sqM) Est GFR (CKD-EPI)NonAf (>60 ml/min/1.73 sqM) Glucose (74-99) mg/dL Plasma Lactic Acid Terry (0.7-2.0) mmol/L Calcium (8.4-10.2) mg/dL Total Bilirubin (0.2-1.3) mg/dL AST (14-36) U/L ALT (4-34) U/L Alkaline Phosphatase (38-126) U/L Ammonia (<30) umol/L Total Creatine Kinase (30-135) U/L CK-MB (CK-2) (0.0-2.4) ng/mL CK-MB (CK-2) Rel Index Troponin I <0.012 (0.000-0.034) ng/mL NT-Pro-B Natriuret Pep pg/mL Total Protein (6.3-8.2) g/dL Albumin (3.5-5.0) g/dL Urine Color Light Yellow Urine Appearance Clear (Clear) Urine pH 6.5 (5.0-8.0) Ur Specific [place] 1.007 (1.001-1.035) Urine Protein 2+ H (Negative) Urine Glucose (UA) Negative (Negative) Urine Ketones Negative (Negative) Urine Blood Trace H (Negative) Urine Nitrite Negative (Negative) Urine Bilirubin Negative (Negative) Urine Urobilinogen <2.0 (<2.0) mg/dL Ur Leukocyte Esterase Negative (Negative) Urine RBC 1 (0-5) /hpf Urine WBC 1 (0-5) /hpf Ur Squamous Epith Cells <1 (0-4) /hpf Urine Bacteria Rare H (None) /hpf Urine Mucus Rare H (None) /hpf 08/06/21 08/06/21 08/06/21 Range/Units 17:40 17:40 17:40 WBC (3.8-10.6) k/uL RBC (3.80-5.40) m/uL Hgb (11.4-16.0) gm/dL Hct (34.0-46.0) % MCV (80.0-100.0) fL MCH (25.0-35.0) pg MCHC (31.0-37.0) g/dL RDW (11.5-15.5) % Plt Count (150-450) k/uL MPV Neutrophils % % Lymphocytes % % Monocytes % % Eosinophils % % Basophils % % Neutrophils # (1.3-7.7) k/uL Lymphocytes # (1.0-4.8) k/uL Monocytes # (0-1.0) k/uL Eosinophils # (0-0.7) k/uL Basophils # (0-0.2) k/uL Hypochromasia PT (9.0-12.0) sec INR (<1.2) Sodium (137-145) mmol/L Potassium (3.5-5.1) mmol/L Chloride (98-107) mmol/L Carbon Dioxide (22-30) mmol/L Anion Gap mmol/L BUN (7-17) mg/dL Creatinine (0.52-1.04) mg/dL Est GFR (CKD-EPI)AfAm (>60 ml/min/1.73 sqM) Est GFR (CKD-EPI)NonAf (>60 ml/min/1.73 sqM) Glucose (74-99) mg/dL Plasma Lactic Acid Terry 1.2 (0.7-2.0) mmol/L Calcium (8.4-10.2) mg/dL Total Bilirubin (0.2-1.3) mg/dL AST (14-36) U/L ALT (4-34) U/L Alkaline Phosphatase (38-126) U/L Ammonia <9 (<30) umol/L Total Creatine Kinase 69 (30-135) U/L CK-MB (CK-2) 3.1 H (0.0-2.4) ng/mL CK-MB (CK-2) Rel Index 4.5 Troponin I 0.016 (0.000-0.034) ng/mL NT-Pro-B Natriuret Pep 1320 pg/mL Total Protein (6.3-8.2) g/dL Albumin (3.5-5.0) g/dL Urine Color Urine Appearance (Clear) Urine pH (5.0-8.0) Ur Specific [place] (1.001-1.035) Urine Protein (Negative) Urine Glucose (UA) (Negative) Urine Ketones (Negative) Urine Blood (Negative) Urine Nitrite (Negative) Urine Bilirubin (Negative) Urine Urobilinogen (<2.0) mg/dL Ur Leukocyte Esterase (Negative) Urine RBC (0-5) /hpf Urine WBC (0-5) /hpf Ur Squamous Epith Cells (0-4) /hpf Urine Bacteria (None) /hpf Urine Mucus (None) /hpf - Radiology Data Radiology results: report reviewed (Imaging reviewed right lower lobe infiltrate per report appears be improved CT brain negative for acute findings), image reviewed Disposition Clinical Impression: Right lower lobe pneumonia, Hypoxemia, Failure of outpatient treatment Disposition: ADMITTED IP TO THIS [facility] Condition: Fair Referrals: Dontae Dawn MD [Primary Care Provider] - 1-2 days
[2021-08-06 17:40] LABS: Appearance,Urine Clear (Clear); Bacteria,Urine Rare /hpf; Bilirubin,Urine Negative (Negative); Blood,Urine Trace (Negative); Color,Urine Light Yellow; Glucose,Urine (UA) Negative (Negative); Ketones,Urine Negative (Negative); Leukocyte Esterase,Urine Negative (Negative); Mucus,Urine Rare /hpf; Nitrite,Urine Negative (Negative); PH, Urine 6.5 (5.0-8.0); Protein,Urine 2+ (Negative); RBC,Urine 1 /hpf (0-5); Specific Gravity,Urine 1.007 (1.001-1.035); Squamous Epithelial Cell,Urine <1 /hpf (0-4); Urobilinogen,Urine <2.0 mg/dL (<2.0); WBC,Urine 1 /hpf (0-5)
[2021-08-06 17:57] LABS: Basophils # (A) 0.1 k/uL (0-0.2); Basophils % (A) 0 %; Eosinophils # (A) 0.2 k/uL (0-0.7); Eosinophils % (A) 2 %; HCT 39.3 % (34.0-46.0); HGB 12.3 gm/dL (11.4-16.0); Hypochromasia Slight; Lymphocytes # (A) 1.1 k/uL (1.0-4.8); Lymphocytes % (A) 10 %; MCH 27.6 pg (25.0-35.0); MCHC 31.3 g/dL (31.0-37.0); MCV 88.1 fL (80.0-100.0); Mean Platelet Volume 7.6; Monocytes % (A) 9 %; Neutrophils # (A) 8.8 k/uL (1.3-7.7); Neutrophils % (A) 77 %; Platelet Count 364 k/uL (150-450); RBC 4.45 m/uL (3.80-5.40); RDW 14.1 % (11.5-15.5); WBC 11.4 k/uL (3.8-10.6)
[2021-08-06 18:03] LABS: Lactic Acid, Venous 1.2 mmol/L (0.7-2.0)
[2021-08-06 18:16] LABS: Creatine Kinase MB 3.1 ng/mL (0.0-2.4); Troponin I 0.016 ng/mL (0.000-0.034)
--- NOTE | 2021-08-06 20:08 | CT ---
EXAMINATION TYPE: CT brain wo con DATE OF EXAM: 08/06/2021 COMPARISON: 07/29/2021 HISTORY: Headache, acute, normal neuro exam CT DLP: 1096.4 mGycm Automated exposure control for dose reduction was used. There is cerebral atrophy. There is no mass effect nor midline shift. There is no sign of intracrania l hemorrhage. Calvarium is intact. There is some mild hypodensity in the periventricular white matter . IMPRESSION: Cervical atrophy and mild chronic small vessel ischemia. No change compared to old exam. No acute abn ormality.
--- NOTE | 2021-08-06 20:10 | XR ---
EXAMINATION TYPE: XR chest 2V DATE OF EXAM: 08/06/2021 COMPARISON: 07/29/2021 HISTORY: Dizziness TECHNIQUE: 2 views FINDINGS: There is some mild infiltrate right lower lobe. The other lung gomez are clear. Heart is e nlarged. There are chest leads. Thoracic aorta is atheromatous. IMPRESSION: There is some right lower lobe pneumonia which is improved compared to last exam. No hear t failure seen.
[2021-08-06] MEDS ORDERED: PNEUMONIA PROTOCOL UTILIZED 1 EACH MISC PO PRN (20:33)
[2021-08-06] MEDS ORDERED: LEVOFLOXACIN 750MG-D5W PMX 750 MG in DEXTROSE/WATER 1 150ML.BAG IVPB STA (20:33)
[2021-08-06] MEDS ORDERED: PIPERACILLIN-TAZOBACTAM 3.375 GM in SODIUM CHLORIDE 0.9% 100 ML IVPB STA (20:33)
[2021-08-06] MEDS ORDERED: BACLOFEN 10 MG TAB PO PRN (20:34)
[2021-08-06] MEDS ORDERED: IPRATROPIUM-ALBUTEROL 3 ML NEB INHALATION PRN (20:35)
[2021-08-06] MEDS: APIXABAN 5 MG TAB PO SCH (22:44)
[2021-08-06] MEDS: ATORVASTATIN 80 MG TAB PO SCH (22:45)
[2021-08-06] MEDS: hydrALAZINE HCL 50 MG TAB PO SCH (22:45)
[2021-08-06] MEDS: SODIUM CHLORIDE 0.9% 1,000 ML IV SCH (23:32)
[2021-08-07] MEDS: PIPERACILLIN-TAZOBACTAM 3.375 GM in SODIUM CHLORIDE 0.9% 100 ML IVPB SCH ×3 (03:30→21:58)
[2021-08-07] MEDS: GABAPENTIN 100 MG CAP PO SCH (07:47)
[2021-08-07] MEDS: POTASSIUM CHLORIDE ER 20 MEQ TAB.ER PO SCH (07:47)
[2021-08-07] MEDS: APIXABAN 5 MG TAB PO SCH ×2 (07:48→21:58)
[2021-08-07] MEDS: hydrALAZINE HCL 50 MG TAB PO SCH ×3 (07:48→21:58)
[2021-08-07] MEDS: LEVOTHYROXINE 125 MCG TAB PO SCH (07:48)
[2021-08-07] MEDS: FUROSEMIDE 40 MG TAB PO SCH ×2 (07:48→15:42)
[2021-08-07] MEDS: PIOGLITAZONE 15 MG TAB PO SCH (07:48)
[2021-08-07] MEDS: FERROUS SULFATE 325 MG TAB PO SCH (07:48)
[2021-08-07] MEDS: carvediloL 12.5 MG TAB PO SCH ×2 (07:48→18:11)
[2021-08-07] MEDS: lisinopriL 20 MG TAB PO SCH (07:48)
--- NOTE | 2021-08-07 08:36 | XR ---
EXAMINATION TYPE: XR chest 2V DATE OF EXAM: 08/07/2021 COMPARISON: 08/06/2021 HISTORY: Pneumonia TECHNIQUE: Frontal and lateral views of the chest are obtained. FINDINGS: There is an increasing opacity obscuring the right hemidiaphragm and costophrenic angle. L eft lung remains clear. There is no pneumothorax. Heart is prominent but the pulmonary vasculature is not congested. The osseous structures are intact. IMPRESSION: Increasing opacity obscuring the right costophrenic angle and hemidiaphragm. Findings schofield ggest consolidative pneumonia and clinical correlation short-term follow-up to resolution is recommen ded.
[2021-08-07] MEDS ORDERED: traMADol 50 MG TAB PO PRN (13:29)
[2021-08-07] MEDS ORDERED: ARTIFICIAL TEARS-HYPROMELLOSE DROPS 15 ML BTL BOTH EYES PRN (13:31)
--- NOTE | 2021-08-07 15:08 | US ---
EXAMINATION TYPE: US venous doppler duplex LE RT DATE OF EXAM: 08/07/2021 2:58 PM COMPARISON: US CLINICAL HISTORY: pain calf. Right calf pain; history of right popliteal fossa cyst. SIDE PERFORMED: Right TECHNIQUE: The lower extremity deep venous system is examined utilizing real time linear array sonog phuong with graded compression, doppler sonography and color-flow sonography. VESSELS IMAGED: Common Femoral Vein Deep Femoral Vein Greater Saphenous Vein * Femoral Vein Popliteal Vein Small Saphenous Vein * Proximal Calf Veins (* superficial vessels) Right Leg: Negative for DVT. Complex popliteal fossa cyst is still noted = 4.8 x 2.7 x 1.7cm. IMPRESSION: No evidence of deep vein thrombosis in the right leg. There is complex popliteal cyst.
--- NOTE | 2021-08-07 16:35 | P.HPIM ---
History of Present Illness H&P Date: 08/07/21 Chief Complaint: shortness of breath cough This is a 80-year-old female patient of Dr. Dawn/Henri Mejía EARRING MAKER and Dr. 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 Amaya for pain management. Asked hospitalization was in March 2021 for acute on chronic diastolic heart failure. At that time echocardiogram revealed EF of 55-60% with severe concentric left ventricular hypertrophy, moderate aortic stenosis, moderate mitral regurgitation, mild tricuspid regurgitation, mild pulmonary hypertension. she was admitted at [facility], from July 28 till 07/31/2021, for right lower lobe infiltrate, with focal air space disease, and pleural effusion, she was discharged to homeCeftin, 250 twice a day, along with baclofen 5 mg 3 times a day. No other medication changes on Ahlquist, Lipitor, and diabetic medication. She is on maintenance gabapentin 100 mg daily. urinalysis and culture was negative, there were planning on short-term follow-up with MRI recommended for the lumbar spine, L3-L4, spinal stenosis.Patient comes in to emergency room, with dizziness lightheadedness, feels like she is dying, weak, she is not expectorating anything, cough is just minimal, however she does not have any significant pleurisy,in emergency room, she has mild leukocytosis, 11.2,chest x-ray shows increasing opacity obstructing right costal phrenic angle, and hemidiaphragm, suggestive of consolidative pneumonia,patient is started on Zosyn,and we will try to obtain CAT scan of the chest, to evaluate this abnormality. Patient has been tested for coronavirus PCR, and is negative. Urine WBC is 1, EARRING MAKER proBNP of 1320,patient is on 3 L nasal cannula, similar to her recent admission, for which the O2 has been prescribed at that time. July 28 admission Review of Systems Constitutional: Reports as per HPI, Reports chronic pain, Reports fatigue, Reports weakness Ears, nose, mouth and throat: Reports as per HPI Cardiovascular: Reports as per HPI, Reports decreased exercise tolerance Respiratory: Reports as per HPI, Reports cough, Reports respiratory infections Gastrointestinal: Reports as per HPI, Reports constipation, Denies early satiety, Denies hematemesis, Denies loss of appetite, Denies nausea, Denies vomiting Genitourinary: Reports as per HPI, Reports dysuria, Denies incomplete emptying, Denies urinary frequency Menstruation: Reports as per HPI Musculoskeletal: Reports as per HPI, Reports gait dysfunction, Reports low back pain Integumentary: Reports as per HPI Neurological: Reports as per HPI, Reports gait dysfunction Psychiatric: Reports as per HPI, Reports sleep disturbances Endocrine: Reports as per HPI, Reports fatigue, Denies weight change Hematologic/Lymphatic: Reports as per HPI Allergic/Immunologic: Reports as per HPI Past Medical History Past Medical History: Cancer, Pneumonia Additional Past Medical History / Comment(s): Stage III Kidney Disease, hx Pneumonia with Sepsis, no CPAP use, Vitamin D Deficiency, chronic low back pain, frequent constipation, hx skin cancer. History of Any Multi-Drug Resistant Organisms: None Reported Past Surgical History: Heart Catheterization Additional Past Surgical History / Comment(s): Cardiac caths , lap band placed/since removed, low back surgery, L carpal tunnel release X2, skin cancer removal, colonoscopies, bilateral cataract removals/lens implants. 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 She is independent. Smoking Status: Never smoker, Second hand smoke exposure Past Alcohol Use History: None Reported Past Drug Use History: None Reported - Past Family History Sister(s) Family Medical History: Myocardial Infarction ([place]) Brother(s) Family Medical History: Cancer Additional Family Medical History / Comment(s): Colon Cancer. Mother Family Medical History: Dementia Additional Family Medical History / Comment(s): Mother of dementia at the age of 89yrs. Father Family Medical History: Cancer Additional Family Medical History / Comment(s): Pt states her father was treated for a sinus infection but really had leukemia and of this at the age of 72 yrs. Medications and Allergies Home Medications Medication Instructions Recorded Confirmed Type Atorvastatin [Lipitor] 80 mg PO HS 06/30/18 08/06/21 History Apixaban [Eliquis] 5 mg PO BID #60 tab 07/04/18 08/06/21 Rx hydrALAZINE HCL [Apresoline] 100 mg PO TID 01/06/19 08/06/21 History lisinopriL 40 mg PO DAILY 01/06/19 08/06/21 History Levothyroxine Sodium [Synthroid] 125 mcg PO DAILY #30 tab 01/08/19 08/06/21 Rx Insulin NPL/Insulin Lispro 20 unit SQ W/SUPPER 05/30/20 08/06/21 History [humaLOG MIX 75-25 VIAL] Insulin NPL/Insulin Lispro 30 unit SQ W/BRKFST 06/05/20 08/06/21 History [humaLOG MIX 75-25 VIAL] Albuterol Sulfate [Proair Hfa] 2 puff INHALATION RT-Q6H PRN 07/19/20 08/06/21 History Ergocalciferol [Vitamin D2 50,000 unit PO TU 07/19/20 08/06/21 History (DRISDOL)] Pioglitazone [Actos] 15 mg PO DAILY 09/13/20 08/06/21 History Acetaminophen [Tylenol Extra 500 - 1,000 mg PO Q8H PRN 10/14/20 08/06/21 History Strength] Ferrous Sulfate [Feosol] 325 mg PO DAILY 04/01/21 08/06/21 History Gabapentin [Neurontin] 100 mg PO DAILY 04/01/21 08/06/21 History amLODIPine [Norvasc] 5 mg PO DAILY #30 tab 04/05/21 08/06/21 Rx Furosemide [Lasix] 40 mg PO BID@0900,1600 #60 tab 05/11/21 08/06/21 Rx carvediloL [Coreg*] 12.5 mg PO BID-W/MEALS #60 tab 05/11/21 08/06/21 Rx Baclofen [Lioresal] 5 mg PO TID PRN #90 tab 07/31/21 08/06/21 Rx Cefuroxime [Ceftin] 250 mg PO BID 7 Days #14 tab 07/31/21 08/06/21 Rx Potassium Chloride ER [K-Dur 20] 20 meq PO W/BRKFST 08/06/21 08/06/21 History Allergies Allergy/AdvReac Type Severity Reaction Status Date / Time azithromycin Allergy Rash/Hives Verified 08/06/21 20:54 [From Zithromax Z-Jeanmarie] methylprednisolone Allergy Rash/Hives Verified 08/06/21 20:54 [From Medrol] trimethoprim [From Bactrim] Allergy Rash/Hives Verified 08/06/21 20:54 hydrochlorothiazide AdvReac lost Verified 08/06/21 20:54 balance and fell sulfamethoxazole AdvReac Rash/Hives Verified 08/06/21 20:54 [From Bactrim] Physical Exam Vitals: Vital Signs Temp Pulse Pulse Resp BP BP Pulse Ox 08/07/21 04:58 98.2 F 54 L 16 181/65 99 08/06/21 22:31 98.7 F 72 16 188/75 96 08/06/21 21:05 98 F 68 18 178/90 94 L 08/06/21 18:38 66 18 182/84 94 L 08/06/21 17:50 60 18 183/72 96 08/06/21 16:39 60 18 205/92 96 08/06/21 15:51 97.9 F 72 18 224/89 92 L Intake and Output 08/06/21 08/07/21 08/07/21 22:59 06:59 14:59 Intake Total 590 120 Output Total 750 Balance 590 -630 Intake: Oral 590 120 Output: Urine 750 Other: Voiding Method External Catheter Weight 94.801 kg - Constitutional General appearance: cooperative, no acute distress - EENT Eyes: EOMI, PERRLA, dentition normal, normal appearance ENT: NA/AT, normal oropharynx - Respiratory Respiratory: bilateral: CTA, negative: diminished, dullness, rales, rhonchi - Cardiovascular Rhythm: regular Heart sounds: normal: S1, S2 Abnormal Heart Sounds: no systolic murmur, no diastolic murmur, no rub, no S3 Gallop, no S4 Gallop, no click, no other - Gastrointestinal General gastrointestinal: normal bowel sounds, soft - Integumentary Integumentary: normal, normal turgor - Neurologic Neurologic: CNII-XII intact - Musculoskeletal Musculoskeletal: gait normal, strength equal bilaterally - Psychiatric Psychiatric: A&O x's 3, appropriate affect, intact judgment & insight Results CBC & Chem 7: 08/06/21 17:40 08/06/21 16:41 Labs: Abnormal Lab Results - Last 24 Hours (Table) 08/06/21 08/06/21 08/06/21 Range/Units 16:41 16:41 17:32 WBC 11.2 H (3.8-10.6) k/uL Neutrophils # 8.5 H (1.3-7.7) k/uL Monocytes # 1.1 H (0-1.0) k/uL BUN 23 H (7-17) mg/dL Creatinine 1.18 H (0.52-1.04) mg/dL Glucose 189 H (74-99) mg/dL CK-MB (CK-2) (0.0-2.4) ng/mL Urine Protein 2+ H (Negative) Urine Blood Trace H (Negative) Urine Bacteria Rare H (None) /hpf Urine Mucus Rare H (None) /hpf 08/06/21 08/06/21 Range/Units 17:40 17:40 WBC 11.4 H (3.8-10.6) k/uL Neutrophils # 8.8 H (1.3-7.7) k/uL Monocytes # (0-1.0) k/uL BUN (7-17) mg/dL Creatinine (0.52-1.04) mg/dL Glucose (74-99) mg/dL CK-MB (CK-2) 3.1 H (0.0-2.4) ng/mL Urine Protein (Negative) Urine Blood (Negative) Urine Bacteria (None) /hpf Urine Mucus (None) /hpf Thrombosis Risk Factor Assmnt - DVT/VTE Prophylaxis DVT/VTE Prophylaxis: Pharmacologic Prophylaxis ordered - Choose All That Apply Any of the Below Risk Factors Present?: Yes Each Factor Represents 1 point: Abnormal pulmonary function (COPD), Obesity (BMI >25) Each Risk Factor Represents 3 Points: Age 75 years or older Thrombosis Risk Factor Assessment Total Risk Factor Score: 5 Thrombosis Risk Factor Assessment Level: High Risk Assessment and Plan Plan: 1. pleurisy, with right sided pneumonic infiltrate, progressive,suggestive of possibly facility acquired pneumonia, against gram-negative pneumonia, we will try to obtain sputum culture, legionella antibody, Zosyn was started. Patient is screened for coronavirus, and is negative. CT imaging chest, to be obtained, patient is chronically on anticoagulation using eliquis 2. Recent Syncopal episode most likely vasovagal. Cardiology consult sue reciated. Amlodipine changed to dosing at bedtime and Imdur were discontinued, Lasix on hold. Continue lisinopril 40 mg daily, hydralazine 100 mg 3 times daily.patient remains hypertensive, might need to change Coreg to labetalol as the patient is already on max dose for the recent medications 2. Mild hypoxemia secondary to possible acute on Chronic diastolic heart failure and also early pneumonia. Continue Coreg 12.5 mg twice daily, 1 dose of IV Lasix 40 mg given now and resume Lasix 40 mg twice daily, start ceftriaxone 1 g daily. Continue oxygen therapy.3 L from home recently ordered 07/28/2021 3. Diabetes mellitus type 2 uncontrolled with hyperglycemia. Continue Actos 15 mg daily, NovoLog mix 7525 in its with breakfast and 20 units with supper. Continue NovoLog scale before meals and at bedtime. A1c March 2021 was 10.5 4. Situational anxiety disorder. Xanax 25 mg twice daily added.. 5. Paroxysmal atrial fibrillation continue eliquis 5 mg twice daily, Coreg 12.5 mg twice daily. 6. Hypertension hypertensive cardiovascular disease. Continue amlodipine 10 mg hs, Coreg 12.5 mg twice daily, hydralazine 100 mg 3 times daily, lisinopril 40 mg daily.. Possible labetalol instead of Coreg 7. Hypothyroidism. Continue levothyroxine 125 g daily. 8. Diabetic neuropathy. Continue gabapentin 100 mg daily. 9. 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 Continue albuterol nebulizer every 6 hours as needed. 10. Chronic kidney disease stage III. Avoid nephrotoxic agents, monitor kidney function. 11. Obstructive sleep apnea unable to tolerate CPAP. Patient will need to reestablish with pulmonary medicine and outpatient follow-up for sleep study. 12. Degenerative disc disease with chronic pain. Follows with pain management with Dr. Amaya. 13. Hyperlipidemia. Continue Lipitor 80 mg at bedtime. 14. Chronic anemia. Continue ferrous sulfate 325 mg daily. 15. Right hip pain secondary to osteoarthritis and lumbar pain secondary to degenerative changes. . Patient to follow-up with orthopedic spine in the outpatient setting for MRI of the lumbar spine. Continue baclofen GI prophylaxis. Protonix. DVT prophylaxis. Eliquis.
--- NOTE | 2021-08-07 17:59 | CT ---
EXAMINATION TYPE: CT chest wo con DATE OF EXAM: 08/07/2021 COMPARISON: None HISTORY: RT infiltrate chest pain CT DLP: 555.50 mGycm Automated exposure control for dose reduction was used. Images obtained from the thoracic inlet to the diaphragm without contrast. There is large right pleural effusion. There is infiltrate and atelectasis right lower lobe. There is coronary artery calcification. There is bronchial cartilage calcification. Thoracic aorta is atherom atous. There are multiple paratracheal lymph nodes up to 1.5 cm. There are no hilar masses. Left lung is fairly clear. Thoracic spine is intact. There is no compression fracture. Sternum is intact. There is some spurring in the thoracic spine. The ribs appear intact. There is previous surgery at the gastroesophageal derick ction. There are clips from cholecystectomy. IMPRESSION: Right pleural effusion and right lower lobe airspace consolidation. Cardiomegaly. No discrete pulmona ry mass identified.
[2021-08-07] MEDS ORDERED: hydrALAZINE HCL 20 MG/ML 1 ML VIAL IM STA (18:17)
[2021-08-07] MEDS ORDERED: hydrALAZINE HCL 20 MG/ML 1 ML VIAL IVP STA (18:56)
[2021-08-07] MEDS: ATORVASTATIN 80 MG TAB PO SCH (21:57)
[2021-08-07] MEDS: amLODIPine 10 MG TAB PO SCH (21:57)
[2021-08-07] MEDS: LEVOFLOXACIN 750 MG TAB PO SCH (21:58)
[2021-08-07] MEDS: MELATONIN 5 MG TABLET PO SCH (21:58)
[2021-08-08] MEDS: ACETAMINOPHEN TAB 500 MG TAB PO PRN ×2 (02:26→10:40)
[2021-08-08] MEDS: SODIUM CHLORIDE 0.9% 1,000 ML IV SCH ×2 (04:45→21:00)
[2021-08-08] MEDS: PIPERACILLIN-TAZOBACTAM 3.375 GM in SODIUM CHLORIDE 0.9% 100 ML IVPB SCH ×3 (05:02→20:22)
--- NOTE | 2021-08-08 09:27 | P.CNPUL ---
History of Present Illness Consult date: 08/08/21 Reason for consult: dyspnea, COPD, hypoxemia Chief complaint: Shortness of breath and cough History of present illness: Patient is a 80-year-old secondhand exposure to smoking with COPD patient has congestive heart failure as well she is on home oxygen 2 L nasal cannula, patient presented in the emergency department with ongoing symptoms of dizziness lightheadedness, cough, patient was hospitalized July 28 to July 31 for right lower lobe pneumonia she finished outpatient course of Ceftin after. Her transient improvement patient started decompensating with increased symptomatic predominantly pulmonary related, on arrival to emergency department she had a chest x-ray which showed worsening of infiltrate patient admitted to hospital on IV Zosyn for healthcare associated pneumonia, patient sees Dr. Laguna the primary care activity, Dr. Hernandez for cardiovascular problem issues, has chronic history of paroxysmal atrial fibrillation hypertension hypertensive cardiovascular disease dyslipidemia COPD diabetes mellitus type 2, hypothyroidism, her labs were significant for mild leukocytosis with WBC count 11,400, and crit is 23/1.18, the chest x-ray continued to show a right lower lobe infiltrate, follow-up chest x-ray continue show with slight worsening of right-sided pneumonia effusion, ultrasound of the leg is negative for deep venous thrombosis computed tomography scan of the chest chest revealed presence of the effusion small to moderate size, right lower lobe pneumonia, Review of Systems All systems: negative Past Medical History Past Medical History: Cancer, Pneumonia Additional Past Medical History / Comment(s): Stage III Kidney Disease, hx Pneumonia with Sepsis, no CPAP use, Vitamin D Deficiency, chronic low back pain, frequent constipation, hx skin cancer. History of Any Multi-Drug Resistant Organisms: None Reported Past Surgical History: Heart Catheterization Additional Past Surgical History / Comment(s): Cardiac caths , lap band placed/since removed, low back surgery, L carpal tunnel release X2, skin cancer removal, colonoscopies, bilateral cataract removals/lens implants. 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 She is independent. Smoking Status: Never smoker, Second hand smoke exposure Past Alcohol Use History: None Reported Past Drug Use History: None Reported - Past Family History Sister(s) Family Medical History: Myocardial Infarction ([place]) Brother(s) Family Medical History: Cancer Additional Family Medical History / Comment(s): Colon Cancer. Mother Family Medical History: Dementia Additional Family Medical History / Comment(s): Mother of dementia at the age of 89yrs. Father Family Medical History: Cancer Additional Family Medical History / Comment(s): Pt states her father was treated for a sinus infection but really had leukemia and of this at the age of 72 yrs. Medications and Allergies Home Medications Medication Instructions Recorded Confirmed Type Atorvastatin [Lipitor] 80 mg PO HS 06/30/18 08/06/21 History Apixaban [Eliquis] 5 mg PO BID #60 tab 07/04/18 08/06/21 Rx hydrALAZINE HCL [Apresoline] 100 mg PO TID 01/06/19 08/06/21 History lisinopriL 40 mg PO DAILY 01/06/19 08/06/21 History Levothyroxine Sodium [Synthroid] 125 mcg PO DAILY #30 tab 01/08/19 08/06/21 Rx Insulin NPL/Insulin Lispro 20 unit SQ W/SUPPER 05/30/20 08/06/21 History [humaLOG MIX 75-25 VIAL] Insulin NPL/Insulin Lispro 30 unit SQ W/BRKFST 06/05/20 08/06/21 History [humaLOG MIX 75-25 VIAL] Albuterol Sulfate [Proair Hfa] 2 puff INHALATION RT-Q6H PRN 07/19/20 08/06/21 History Ergocalciferol [Vitamin D2 50,000 unit PO TU 07/19/20 08/06/21 History (DRISDOL)] Pioglitazone [Actos] 15 mg PO DAILY 09/13/20 08/06/21 History Acetaminophen [Tylenol Extra 500 - 1,000 mg PO Q8H PRN 10/14/20 08/06/21 History Strength] Ferrous Sulfate [Feosol] 325 mg PO DAILY 04/01/21 08/06/21 History Gabapentin [Neurontin] 100 mg PO DAILY 04/01/21 08/06/21 History amLODIPine [Norvasc] 5 mg PO DAILY #30 tab 04/05/21 08/06/21 Rx Furosemide [Lasix] 40 mg PO BID@0900,1600 #60 tab 05/11/21 08/06/21 Rx carvediloL [Coreg*] 12.5 mg PO BID-W/MEALS #60 tab 05/11/21 08/06/21 Rx Baclofen [Lioresal] 5 mg PO TID PRN #90 tab 07/31/21 08/06/21 Rx Cefuroxime [Ceftin] 250 mg PO BID 7 Days #14 tab 07/31/21 08/06/21 Rx Potassium Chloride ER [K-Dur 20] 20 meq PO W/BRKFST 08/06/21 08/06/21 History Allergies Allergy/AdvReac Type Severity Reaction Status Date / Time azithromycin Allergy Rash/Hives Verified 08/06/21 20:54 [From Zithromax Z-Jeanmarie] methylprednisolone Allergy Rash/Hives Verified 08/06/21 20:54 [From Medrol] trimethoprim [From Bactrim] Allergy Rash/Hives Verified 08/06/21 20:54 hydrochlorothiazide AdvReac lost Verified 08/06/21 20:54 balance and fell sulfamethoxazole AdvReac Rash/Hives Verified 08/06/21 20:54 [From Bactrim] Physical Exam Vitals: Vital Signs Temp Pulse Resp BP Pulse Ox 08/08/21 02:00 97.9 F 63 16 172/74 94 L 08/07/21 20:33 98 08/07/21 20:00 98.0 F 72 20 166/73 98 08/07/21 18:14 73 182/70 08/07/21 13:26 98.1 F 63 16 174/79 Intake and Output 08/07/21 08/08/21 08/08/21 22:59 06:59 14:59 Intake Total 590 Output Total 1400 Balance -1400 590 Intake: Oral 590 Output: Urine 1400 Other: Voiding Method External Catheter - Constitutional General appearance: average body habitus, cooperative, disheveled, morbidly obese - EENT Eyes: EOMI, PERRLA Ears: bilateral: normal - Neck Carotids: bilateral: upstroke normal Thyroid: negative: normal size - Respiratory Respiratory: right: diminished, dullness, rales, bilateral: rhonchi - Cardiovascular Rhythm: regular Heart sounds: normal: S1, S2 - Gastrointestinal General gastrointestinal: distended, normal bowel sounds, soft - Integumentary Integumentary: normal turgor - Neurologic Neurologic: CNII-XII intact - Musculoskeletal Musculoskeletal: gait normal, generalized weakness, strength equal bilaterally - Psychiatric Psychiatric: A&O x's 3, appropriate affect, intact judgment & insight Results - Laboratory Findings CBC and BMP: 08/06/21 17:40 08/06/21 16:41 PT/INR, D-dimer PT 11.0 sec (9.0-12.0) 08/06/21 16:41 INR 1.0 (<1.2) 08/06/21 16:41 D-Dimer 0.52 mg/L FEU (<0.60) 08/07/21 14:35 Abnormal lab findings: Abnormal Labs 08/06/21 08/06/21 08/06/21 16:41 16:41 17:32 WBC 11.2 H Neutrophils # 8.5 H Monocytes # 1.1 H BUN 23 H Creatinine 1.18 H Glucose 189 H CK-MB (CK-2) Urine Protein 2+ H Urine Blood Trace H Urine Bacteria Rare H Urine Mucus Rare H 08/06/21 08/06/21 17:40 17:40 WBC 11.4 H Neutrophils # 8.8 H Monocytes # BUN Creatinine Glucose CK-MB (CK-2) 3.1 H Urine Protein Urine Blood Urine Bacteria Urine Mucus - Diagnostic Findings Chest x-ray: report reviewed, image reviewed CT scan - chest: report reviewed, image reviewed (Finding was treated as above) Assessment and Plan Assessment: Right-sided complicated pneumonia Right parapneumonic effusion Acute on chronic hypoxic respiratory failure due to worsening pneumonia Syncope likely vasovagal cardiovascular services following Type 2 diabetes mellitus with hyperglycemia Morbid obesity Paroxysmal atrial fibrillation on direct anticoagulants Hypertension hypertensive cardiovascular disease Hypothyroidism Morbid obesity sleep disorder breathing and sleep apnea noncompliant with the CPAP stopped using it Plan: Agree with Zosyn, recommend to add vancomycin with pharmacy to dose Arrange ultrasound of the chest fluid is small amount may need IR consultation to remove pleural fluid for diagnostic purposes Time with Patient: Greater than 30
[2021-08-08] MEDS: polyethylene glycoL 3350 17 GM POWD.PACK PO SCH (10:38)
[2021-08-08] MEDS: carvediloL 12.5 MG TAB PO SCH ×2 (10:39→16:41)
[2021-08-08] MEDS: FUROSEMIDE 40 MG TAB PO SCH ×2 (10:39→16:41)
[2021-08-08] MEDS: hydrALAZINE HCL 50 MG TAB PO SCH ×3 (10:39→22:36)
[2021-08-08] MEDS: lisinopriL 20 MG TAB PO SCH (10:39)
[2021-08-08] MEDS: APIXABAN 5 MG TAB PO SCH ×2 (10:39→20:21)
[2021-08-08] MEDS: PIOGLITAZONE 15 MG TAB PO SCH (10:40)
[2021-08-08] MEDS: FERROUS SULFATE 325 MG TAB PO SCH (10:40)
[2021-08-08] MEDS: POTASSIUM CHLORIDE ER 20 MEQ TAB.ER PO SCH (10:40)
[2021-08-08] MEDS: LEVOTHYROXINE 125 MCG TAB PO SCH (10:40)
[2021-08-08] MEDS: ALPRAZolam 0.25 MG TAB PO PRN (10:40)
[2021-08-08] MEDS: GABAPENTIN 100 MG CAP PO SCH (10:40)
--- NOTE | 2021-08-08 10:56 | US ---
EXAMINATION TYPE: US chest DATE OF EXAM: 08/08/2021 COMPARISON: NONE CLINICAL HISTORY: right pleural effusion. TECHNIQUE: Targeted ultrasound of the posterior lower right hemithorax EXAM MEASUREMENTS: Right Pleural Effusion pocket size: 8.5 cm Right skin surface to fluid distance: 3.5 cm Right side marked for possible thoracentesis outside the dept. Pulmonologists are able to review the images in the patient?s EMR. IMPRESSIONS: small pleural effusion.
--- NOTE | 2021-08-08 12:50 | P.PN ---
Subjective Progress Note Date: 08/08/21 his is a 80-year-old female patient of Dr. 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 Amaya for pain management. Asked hospitalization was in March 2021 for acute on chronic diastolic heart failure. At that time echocardiogram revealed EF of 55-60% with severe concentric left ventricular hypertrophy, moderate aortic stenosis, moderate mitral regurgitation, mild tricuspid regurgitation, mild pulmonary hypertension. she was admitted at [facility], from July 28 till 07/31/2021, for right lower lobe infiltrate, with focal air space disease, and pleural effusion, she was discharged to homeCeftin, 250 twice a day, along with baclofen 5 mg 3 times a day. No other medication changes on Ahlquist, Lipitor, and diabetic medication. She is on maintenance gabapentin 100 mg daily. urinalysis and culture was negative, there were planning on short-term follow-up with MRI recommended for the lumbar spine, L3-L4, spinal stenosis.Patient comes in to emergency room, with dizziness lightheadedness, feels like she is dying, weak, she is not expectorating anything, cough is just minimal, however she does not have any significant pleurisy,in emergency room, she has mild leukocytosis, 11.2,chest x-ray shows increasing opacity obstructing right costal phrenic angle, and hemidiaphragm, suggestive of consolidative pneumonia,patient is started on Zosyn,and we will try to obtain CAT scan of the chest, to evaluate this abnormality. Patient has been tested for coronavirus PCR, and is negative. Urine WBC is 1, TABLEAU ADMINISTRATOR proBNP of 1320,patient is on 3 L nasal cannula, similar to her recent admission, for which the O2 has been prescribed at that time. July 28 admission 08/08: Patient was seen this morning by Dr. Friedman for right-sided pneumonia, parapneumonic effusion and acute on chronic hypoxic respiratory failure. He recommended continuing Zosyn and added vancomycin. CAT scan of the chest revealed right pleural effusion and right lower lobe airspace consolidation. Cardiomegaly. No discrete pulmonary mass identified. Ultrasound of the chest revealed right pleural effusion pocket of a 8.5 cm and was marked. Blood culture showing no growth at 24 hours times one, sputum culture in progress. Patient has been afebrile, heart rate 63, blood pressure 169/67, pulse ox 94% on room air. Review of Systems Constitutional: Reports as per HPI, Reports chronic pain, Reports fatigue, Reports weakness Ears, nose, mouth and throat: Reports as per HPI Cardiovascular: Reports as per HPI, Reports decreased exercise tolerance Respiratory: Reports as per HPI, Reports cough, Reports respiratory infections Gastrointestinal: Reports as per HPI, Reports constipation, Denies early satiety, Denies hematemesis, Denies loss of appetite, Denies nausea, Denies vomiting Genitourinary: Reports as per HPI, Reports dysuria, Denies incomplete emptying, Denies urinary frequency Menstruation: Reports as per HPI Musculoskeletal: Reports as per HPI, Reports gait dysfunction, Reports low back pain Integumentary: Reports as per HPI Neurological: Reports as per HPI, Reports gait dysfunction Psychiatric: Reports as per HPI, Reports sleep disturbances Endocrine: Reports as per HPI, Reports fatigue, Denies weight change Hematologic/Lymphatic: Reports as per HPI Allergic/Immunologic: Reports as per HPI PHYSICAL EXAMINATION Gen: This is a 80-year-old female, obese, patient is sitting on the edge of the bed and appears to be in no acute respiratory distress. Anxiety seems to be improved.. HEENT: Head is atraumatic, normocephalic. Pupils equal, round. Sclerae is anicteric. NECK: Supple. No JVD. No lymphadenopathy. No thyromegaly. LUNGS: Slightly diminished to bases but otherwise clear to auscultation. No wheezes or rhonchi. No intercostal retractions. HEART: Regular rate and rhythm. 3/6 systolic murmur. ABDOMEN: Soft. Bowel sounds are present. No masses. No tenderness. EXTREMITIES: 1+ bilateral pedal edema. No calf tenderness. Dorsalis pedis +2 bilaterally. Right hip tenderness, decreased range of motion due to pain. NEUROLOGICAL: Patient is awake, alert and oriented x3. Cranial nerves 2 through 12 are grossly intact. ASSESSMENT AND PLAN 1. pleurisy, with right sided pneumonic infiltrate, progressive,suggestive of possibly facility acquired pneumonia, gram-negative pneumonia, right-sided pleural effusion. Continue Zosyn, vancomycin and by Dr. Friedman, consult pulmonary medicine appreciated. Chest ultrasound has been done and marked. 2. Recent Syncopal episode most likely vasovagal. Patient was seen by cardiology on previous admission. Amlodipine changed to dosing at bedtime and Imdur were discontinued. 2. Chronic diastolic heart failure and also early pneumonia. Continue Coreg 12.5 mg twice daily, resume Lasix 40 mg twice daily. 3. Diabetes mellitus type 2 uncontrolled with hyperglycemia. Continue Actos 15 mg daily, NovoLog mix 7525 in its with breakfast and 20 units with supper. Continue NovoLog scale before meals and at bedtime. A1c March 2021 was 10.5 4. Situational anxiety disorder. Xanax 25 mg twice daily added.. 5. Paroxysmal atrial fibrillation continue eliquis 5 mg twice daily, Coreg 12.5 mg twice daily. 6. Hypertension hypertensive cardiovascular disease. Continue amlodipine 10 mg hs, Coreg 12.5 mg twice daily, hydralazine 100 mg 3 times daily, lisinopril 40 mg daily.. Possible labetalol instead of Coreg 7. Hypothyroidism. Continue levothyroxine 125 g daily. 8. Diabetic neuropathy. Continue gabapentin 100 mg daily. 9. 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 Continue albuterol nebulizer every 6 hours as needed. 10. Chronic kidney disease stage III. Avoid nephrotoxic agents, monitor kidney function. 11. Obstructive sleep apnea unable to tolerate CPAP. Patient will need to reestablish with pulmonary medicine and outpatient follow-up for sleep study. 12. Degenerative disc disease with chronic pain. Follows with pain management with Dr. Amaya. 13. Hyperlipidemia. Continue Lipitor 80 mg at bedtime. 14. Chronic anemia. Continue ferrous sulfate 325 mg daily. 15. Right hip pain secondary to osteoarthritis and lumbar pain secondary to degenerative changes. .Patient to follow-up with orthopedic spine in the outpatient setting for MRI of the lumbar spine. Continue baclofen GI prophylaxis. Protonix. DVT prophylaxis. Eliquis. DISCHARGE PLAN Most likely subacute rehab, consult PT and OT Impression and plan of care have been directed as dictated by the signing physician. Bria Muhammad nurse practitioner acting as scribe for signing physician. Objective - Vital Signs Vital signs: Vital Signs Temp 97.9 F 08/08/21 02:00 Pulse 63 08/08/21 02:00 Resp 16 08/08/21 02:00 BP 172/74 08/08/21 02:00 Pulse Ox 94 L 08/08/21 02:00 Intake & Output 08/07/21 08/08/21 08/08/21 18:59 06:59 18:59 Intake Total 300 590 Output Total 2150 Balance -1850 590 Intake: Oral 300 590 Output: Urine 2150 Other: Voiding Method External Catheter External Catheter - Labs CBC & Chem 7: 08/06/21 17:40 08/06/21 16:41 Labs: Microbiology - Last 24 Hours (Table) 08/07/21 22:09 Sputum Culture - Preliminary Sputum 08/06/21 21:37 Blood Culture - Preliminary Blood No Growth after 24 hours 08/06/21 21:37 Blood Culture - Preliminary Blood No Growth after 24 hours
[2021-08-08] MEDS: LEVOFLOXACIN 750 MG TAB PO SCH (20:21)
[2021-08-08] MEDS: amLODIPine 10 MG TAB PO SCH (20:22)
[2021-08-08] MEDS: ATORVASTATIN 80 MG TAB PO SCH (20:22)
[2021-08-08] MEDS: MELATONIN 5 MG TABLET PO SCH (20:22)
[2021-08-09 01:19] LABS: Glucose,Whole Blood 386 mg/dL (75-99)
[2021-08-09] MEDS ORDERED: INSULIN ASPART (NovoLOG) 100 UNIT/ML VIAL SQ ONE (01:54)
[2021-08-09] MEDS: ACETAMINOPHEN TAB 500 MG TAB PO PRN ×3 (02:38→23:27)
[2021-08-09] MEDS: PIPERACILLIN-TAZOBACTAM 3.375 GM in SODIUM CHLORIDE 0.9% 100 ML IVPB SCH ×3 (04:59→20:15)
[2021-08-09] MEDS: LEVOTHYROXINE 125 MCG TAB PO SCH (06:12)
[2021-08-09 06:13] LABS: Glucose,Whole Blood 258 mg/dL (75-99)
[2021-08-09 07:55] LABS: Glucose,Whole Blood 240 mg/dL (75-99)
[2021-08-09] MEDS: polyethylene glycoL 3350 17 GM POWD.PACK PO SCH (08:27)
[2021-08-09] MEDS: INSULIN ASPART (NovoLOG) 100 UNIT/ML VIAL SQ SCH ×4 (08:27→20:16)
[2021-08-09] MEDS: POTASSIUM CHLORIDE ER 20 MEQ TAB.ER PO SCH (08:27)
[2021-08-09] MEDS: FERROUS SULFATE 325 MG TAB PO SCH (08:28)
[2021-08-09] MEDS: APIXABAN 5 MG TAB PO SCH ×2 (08:28→12:05)
[2021-08-09] MEDS: lisinopriL 20 MG TAB PO SCH (08:28)
[2021-08-09] MEDS: hydrALAZINE HCL 50 MG TAB PO SCH ×3 (08:28→22:19)
[2021-08-09] MEDS: PIOGLITAZONE 15 MG TAB PO SCH (08:29)
[2021-08-09] MEDS: carvediloL 12.5 MG TAB PO SCH ×2 (08:29→16:49)
[2021-08-09] MEDS: GABAPENTIN 100 MG CAP PO SCH (08:29)
[2021-08-09] MEDS: FUROSEMIDE 40 MG TAB PO SCH ×2 (08:29→16:49)
[2021-08-09] MEDS ORDERED: ERGOCALCIFEROL 1,250 MCG (50,000 IU) CAPSULE PO SCH (09:00)
--- NOTE | 2021-08-09 09:03 | P.PN ---
Subjective Progress Note Date: 08/09/21 Principal diagnosis: Right-sided complicated pneumonia Right parapneumonic effusion Acute on chronic hypoxic respiratory failure due to worsening pneumonia Syncope likely vasovagal cardiovascular services following Type 2 diabetes mellitus with hyperglycemia Morbid obesity Paroxysmal atrial fibrillation on direct anticoagulants Hypertension hypertensive cardiovascular disease Hypothyroidism Morbid obesity sleep disorder breathing and sleep apnea noncompliant with the CPAP stopped using it 08/09/2021, patient seen eval examined during the rounds labs reviewed medica tions reviewed care plan discussed, respiratory status remains stable denies any chest pain shortness breath is stable now patient feeling much better sitting upright in chair breathing comfortably, vitals today reviewed remains afebrile with heart rate of 70 respiratory 18, blood pressure stable 140 of 80, saturation is 96% on 4 L nasal cannula, blood culture no growth so far, sputum for gram stain and culture pending, ultrasound of the chest results and report reviewed, moderate size right pleural effusion is present, we'll consult IR to do a right-sided thoracentesis and add vancomycin Patient is a 80-year-old secondhand exposure to smoking with COPD patient has congestive heart failure as well she is on home oxygen 2 L nasal cannula, patient presented in the emergency department with ongoing symptoms of dizziness lightheadedness, cough, patient was hospitalized July 28 to July 31 for right lower lobe pneumonia she finished outpatient course of Ceftin after. Her transient improvement patient started decompensating with increased symptomatic predominantly pulmonary related, on arrival to emergency department she had a chest x-ray which showed worsening of infiltrate patient admitted to hospital on IV Zosyn for healthcare associated pneumonia, patient sees Dr. Laguna the primary care activity, Dr. Hernandez for cardiovascular problem issues, has chronic history of paroxysmal atrial fibrillation hypertension hypertensive cardiovascular disease dyslipidemia COPD diabetes mellitus type 2, hypothyroidism, her labs were significant for mild leukocytosis with WBC count 11,400, and crit is 23/1.18, the chest x-ray continued to show a right lower lobe infiltrate, follow-up chest x-ray continue show with slight worsening of right-sided pneumonia effusion, ultrasound of the leg is negative for deep venous thrombosis computed tomography scan of the chest chest revealed presence of the effusion small to moderate size, right lower lobe pneumonia, Objective - Vital Signs Vital signs: Vital Signs Temp 97.9 F 08/09/21 05:00 Pulse 71 08/09/21 05:00 Resp 18 08/09/21 05:00 BP 143/81 12/21/21 05:00 Pulse Ox 96 08/09/21 05:00 Intake & Output 08/08/21 08/09/21 08/09/21 18:59 06:59 18:59 Intake Total 400 Output Total 400 Balance 0 Intake: Oral 400 Output: Urine 400 Other: Voiding Method External Catheter Bedside Commode Toilet Diaper # Voids 3 2 # Bowel Movements 1 - Exam - Constitutional General appearance: average body habitus, cooperative, disheveled, morbidly obese - EENT Eyes: EOMI, PERRLA Ears: bilateral: normal - Neck Carotids: bilateral: upstroke normal Thyroid: negative: normal size - Respiratory Respiratory: right: diminished, dullness, rales, bilateral: rhonchi - Cardiovascular Rhythm: regular Heart sounds: normal: S1, S2 - Gastrointestinal General gastrointestinal: distended, normal bowel sounds, soft - Integumentary Integumentary: normal turgor - Neurologic Neurologic: CNII-XII intact - Musculoskeletal Musculoskeletal: gait normal, generalized weakness, strength equal bilaterally - Psychiatric Psychiatric: A&O x's 3, appropriate affect, intact judgment & insight - Labs CBC & Chem 7: 08/06/21 17:40 08/06/21 16:41 Labs: Abnormal Lab Results - Last 24 Hours (Table) 08/09/21 08/09/21 08/09/21 Range/Units 01:19 06:12 07:54 POC Glucose (mg/dL) 386 H 258 H 240 H (75-99) mg/dL Microbiology - Last 24 Hours (Table) 08/06/21 21:37 Blood Culture - Preliminary Blood No Growth after 48 hours 08/06/21 21:37 Blood Culture - Preliminary Blood No Growth after 48 hours 08/07/21 22:09 Gram Stain - Preliminary Sputum Sputum Culture - Preliminary Assessment and Plan Assessment: Right-sided complicated pneumonia Right parapneumonic effusion Acute on chronic hypoxic respiratory failure due to worsening pneumonia Syncope likely vasovagal cardiovascular services following Type 2 diabetes mellitus with hyperglycemia Morbid obesity Paroxysmal atrial fibrillation on direct anticoagulants Hypertension hypertensive cardiovascular disease Hypothyroidism Morbid obesity sleep disorder breathing and sleep apnea noncompliant with the CPAP stopped using it Plan: Continue Zosyn Consult pharmacy add vancomycin with pharmacy to dose Reviewed ultrasound of the chest fluid is moderate amount will consult IR consultation to remove pleural fluid for diagnostic purposes discussed with RN orders entered Time with Patient: Greater than 30
[2021-08-09] MEDS ORDERED: VANCOMYCIN IV PER PHARMACY 1 EACH MISC MISCELLANE PRN (09:05)
[2021-08-09] MEDS ORDERED: VANCOMYCIN 1,500 MG in SODIUM CHLORIDE 0.9% 250 ML IVPB SCH (10:00)
[2021-08-09] MEDS: amLODIPine 5 MG TAB PO SCH (12:16)
[2021-08-09 12:27] LABS: Glucose,Whole Blood 242 mg/dL (75-99)
--- NOTE | 2021-08-09 15:26 | P.PN ---
Subjective Progress Note Date: 08/09/21 his is a 80-year-old female patient of Dr. 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 Amaya for pain management. Asked hospitalization was in March 2021 for acute on chronic diastolic heart failure. At that time echocardiogram revealed EF of 55-60% with severe concentric left ventricular hypertrophy, moderate aortic stenosis, moderate mitral regurgitation, mild tricuspid regurgitation, mild pulmonary hypertension. she was admitted at [facility], from July 28 till 07/31/2021, for right lower lobe infiltrate, with focal air space disease, and pleural effusion, she was discharged to homeCeftin, 250 twice a day, along with baclofen 5 mg 3 times a day. No other medication changes on Ahlquist, Lipitor, and diabetic medication. She is on maintenance gabapentin 100 mg daily. urinalysis and culture was negative, there were planning on short-term follow-up with MRI recommended for the lumbar spine, L3-L4, spinal stenosis.Patient comes in to emergency room, with dizziness lightheadedness, feels like she is dying, weak, she is not expectorating anything, cough is just minimal, however she does not have any significant pleurisy,in emergency room, she has mild leukocytosis, 11.2,chest x-ray shows increasing opacity obstructing right costal phrenic angle, and hemidiaphragm, suggestive of consolidative pneumonia,patient is started on Zosyn,and we will try to obtain CAT scan of the chest, to evaluate this abnormality. Patient has been tested for coronavirus PCR, and is negative. Urine WBC is 1, CT MRI TECHNOLOGIST proBNP of 1320,patient is on 3 L nasal cannula, similar to her recent admission, for which the O2 has been prescribed at that time. July 28 admission 08/08: Patient was seen this morning by Dr. Friedman for right-sided pneumonia, parapneumonic effusion and acute on chronic hypoxic respiratory failure. He recommended continuing Zosyn and added vancomycin. CAT scan of the chest revealed right pleural effusion and right lower lobe airspace consolidation. Cardiomegaly. No discrete pulmonary mass identified. Ultrasound of the chest revealed right pleural effusion pocket of a 8.5 cm and was marked. Blood culture showing no growth at 24 hours times one, sputum culture in progress. Patient has been afebrile, heart rate 63, blood pressure 169/67, pulse ox 94% on room air. 08/09: Patient has been afebrile, heart rate 71, blood pressure 143/81, pulse ox 96% on 4 L nasal cannula. Patient is to be seen by interventional radiology for thoracentesis on the right, consult with Dr. Friedman of appreciated. Vancomycin has been ordered. Blood sugars are running in the 200s and patient will be resumed back on her home dose of NovoLog mix 7030 30 units with breakfast and 20 with supper and start NovoLog scale before meals and at bedtime. Legionella testing negative. Review of Systems Constitutional: Reports as per HPI, Reports chronic pain, Reports fatigue, Reports weakness Ears, nose, mouth and throat: Reports as per HPI Cardiovascular: Reports as per HPI, Reports decreased exercise tolerance Respiratory: Reports as per HPI, Reports cough, Reports respiratory infections Gastrointestinal: Reports as per HPI, Reports constipation, Denies early satiety, Denies hematemesis, Denies loss of appetite, Denies nausea, Denies vomiting Genitourinary: Reports as per HPI, Reports dysuria, Denies incomplete emptying, Denies urinary frequency Menstruation: Postmenopausal Musculoskeletal: Reports as per HPI, Reports gait dysfunction, Reports low back pain Integumentary: Reports as per HPI Neurological: Reports as per HPI, Reports gait dysfunction Psychiatric: Reports as per HPI, Reports sleep disturbances Endocrine: Reports as per HPI, Reports fatigue, Denies weight change, noted hyperglycemia Hematologic/Lymphatic: Reports as per HPI Allergic/Immunologic: Reports as per HPI PHYSICAL EXAMINATION Gen: This is a 80-year-old female, obese, patient resting and bed and appears to be in no acute respiratory distress. seems to be improved.. HEENT: Head is atraumatic, normocephalic. Pupils equal, round. Sclerae is anicteric. NECK: Supple. No JVD. No lymphadenopathy. No thyromegaly. LUNGS: diminished to bases but otherwise clear to auscultation. No wheezes or rhonchi. No intercostal retractions. HEART: Regular rate and rhythm. 3/6 systolic murmur. ABDOMEN: Soft. Bowel sounds are present. No masses. No tenderness. EXTREMITIES: 1+ bilateral pedal edema. No calf tenderness. Dorsalis pedis +2 bilaterally. Right hip tenderness, decreased range of motion due to pain. NEUROLOGICAL: Patient is awake, alert and oriented x3. Cranial nerves 2 through 12 are grossly intact. ASSESSMENT AND PLAN 1. pleurisy, with right sided pneumonic infiltrate, progressive,suggestive of possibly facility acquired pneumonia, gram-negative pneumonia, right-sided pleural effusion. Continue Zosyn, vancomycin and by Dr. Friedman, consult pulmonary medicine appreciated. Chest ultrasound has been done and marked. Intervent ional radiology consult in place. 2. Recent Syncopal episode most likely vasovagal. Patient was seen by cardiology on previous admission. Amlodipine changed to dosing at bedtime and Imdur were discontinued. 2. Chronic diastolic heart failure and also early pneumonia. Continue Coreg 12.5 mg twice daily, resume Lasix 40 mg twice daily. 3. Diabetes mellitus type 2 uncontrolled with hyperglycemia. Continue Actos 15 mg daily, NovoLog mix 7030 30 units with breakfast and 20 units with supper. Continue NovoLog scale before meals and at bedtime. A1c March 2021 was 10.5 4. Situational anxiety disorder. Xanax 25 mg twice daily added.. 5. Paroxysmal atrial fibrillation continue eliquis 5 mg twice daily, Coreg 12.5 mg twice daily. 6. Hypertension hypertensive cardiovascular disease. Continue amlodipine 10 mg hs, Coreg 12.5 mg twice daily, hydralazine 100 mg 3 times daily, lisinopril 40 mg daily.. Possible labetalol instead of Coreg 7. Hypothyroidism. Continue levothyroxine 125 g daily. 8. Diabetic neuropathy. Continue gabapentin 100 mg daily. 9. 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 Continue albuterol nebulizer every 6 hours as needed. 10. Chronic kidney disease stage III. Avoid nephrotoxic agents, monitor kidney function. 11. Obstructive sleep apnea unable to tolerate CPAP. Patient will need to reestablish with pulmonary medicine and outpatient follow-up for sleep study. 12. Degenerative disc disease with chronic pain. Follows with pain management with Dr. Amaya. 13. Hyperlipidemia. Continue Lipitor 80 mg at bedtime. 14. Chronic anemia. Continue ferrous sulfate 325 mg daily. 15. Right hip pain secondary to osteoarthritis and lumbar pain secondary to degenerative changes. .Patient to follow-up with orthopedic spine in the outpatient setting for MRI of the lumbar spine. Continue baclofen GI prophylaxis. Protonix. DVT prophylaxis. Eliquis. DISCHARGE PLAN Most likely subacute rehab, consult PT and OT Impression and plan of care have been directed as dictated by the signing physician. Bria Muhammad nurse practitioner acting as scribe for signing physician. Objective - Vital Signs Vital signs: Vital Signs Temp 97.9 F 08/09/21 05:00 Pulse 71 08/09/21 05:00 Resp 18 08/09/21 05:00 BP 143/81 08/09/21 05:00 Pulse Ox 96 08/09/21 05:00 Intake & Output 08/08/21 08/09/21 08/09/21 18:59 06:59 18:59 Intake Total 400 Output Total 400 Balance 0 Intake: Oral 400 Output: Urine 400 Other: Voiding Method External Catheter Bedside Commode Toilet Diaper # Voids 3 2 # Bowel Movements 1 - Labs CBC & Chem 7: 08/06/21 17:40 08/06/21 16:41 Labs: Abnormal Lab Results - Last 24 Hours (Table) 08/09/21 08/09/21 08/09/21 Range/Units 01:19 06:12 07:54 POC Glucose (mg/dL) 386 H 258 H 240 H (75-99) mg/dL Microbiology - Last 24 Hours (Table) 08/06/21 21:37 Blood Culture - Preliminary Blood No Growth after 48 hours 08/06/21 21:37 Blood Culture - Preliminary Blood No Growth after 48 hours 08/07/21 22:09 Gram Stain - Preliminary Sputum Sputum Culture - Preliminary
[2021-08-09 17:37] LABS: Glucose,Whole Blood 271 mg/dL (75-99)
[2021-08-09] MEDS: INSULN ASP PRT/INSULIN ASPART 100 UNIT/ML 10 ML VIAL SQ SCH (18:09)
[2021-08-09 20:13] LABS: Glucose,Whole Blood 255 mg/dL (75-99)
[2021-08-09] MEDS: LEVOFLOXACIN 750 MG TAB PO SCH (20:15)
[2021-08-09] MEDS: amLODIPine 10 MG TAB PO SCH (20:15)
[2021-08-09] MEDS: ATORVASTATIN 80 MG TAB PO SCH (20:16)
[2021-08-09] MEDS: MELATONIN 5 MG TABLET PO SCH (20:16)
[2021-08-09] MEDS ORDERED: NON FORMULARY DRUG (Ergocalciferol 50,000 UNIT Cap) PO SCH (20:34)
[2021-08-09] MEDS: SODIUM CHLORIDE 0.9% 1,000 ML IV SCH (22:19)
[2021-08-10 02:39] LABS: Glucose,Whole Blood 135 mg/dL (75-99)
[2021-08-10] MEDS: ALPRAZolam 0.25 MG TAB PO PRN (03:52)
[2021-08-10] MEDS: ACETAMINOPHEN TAB 500 MG TAB PO PRN ×2 (03:52→18:25)
[2021-08-10] MEDS: PIPERACILLIN-TAZOBACTAM 3.375 GM in SODIUM CHLORIDE 0.9% 100 ML IVPB SCH ×2 (03:57→17:44)
[2021-08-10] MEDS: LEVOTHYROXINE 125 MCG TAB PO SCH (05:45)
[2021-08-10 07:04] LABS: HCT 36.4 % (34.0-46.0); HGB 11.1 gm/dL (11.4-16.0); Hypochromasia Moderate; MCH 27.6 pg (25.0-35.0); MCHC 30.4 g/dL (31.0-37.0); MCV 90.8 fL (80.0-100.0); Mean Platelet Volume 7.8; Platelet Count 278 k/uL (150-450); RBC 4.02 m/uL (3.80-5.40); RDW 14.1 % (11.5-15.5); WBC 10.5 k/uL (3.8-10.6)
[2021-08-10 07:42] LABS: African American GFR (CKD) 30 (>60 ml/min/1.73 sqM); Anion Gap 7 mmol/L; Blood Urea Nitrogen 26 mg/dL (7-17); Calcium 8.3 mg/dL (8.4-10.2); Carbon Dioxide 31 mmol/L (22-30); Chloride 100 mmol/L (98-107); Glucose 140 mg/dL (74-99); Non-African American GFR(CKD) 26 (>60 ml/min/1.73 sqM); Potassium 3.7 mmol/L (3.5-5.1); Sodium 138 mmol/L (137-145)
[2021-08-10 07:42] LABS: Glucose,Whole Blood 171 mg/dL (75-99)
[2021-08-10] MEDS: INSULIN ASPART (NovoLOG) 100 UNIT/ML VIAL SQ SCH ×4 (09:22→22:03)
[2021-08-10] MEDS: amLODIPine 5 MG TAB PO SCH (09:23)
[2021-08-10] MEDS: GABAPENTIN 100 MG CAP PO SCH (09:25)
[2021-08-10] MEDS: hydrALAZINE HCL 50 MG TAB PO SCH ×3 (09:25→22:03)
[2021-08-10] MEDS: PIOGLITAZONE 15 MG TAB PO SCH (09:25)
--- NOTE | 2021-08-10 11:16 | XR ---
EXAMINATION TYPE: XR chest 1V portable DATE OF EXAM: 08/10/2021 COMPARISON: Chest x-ray 08/07/2021 HISTORY: Status post thoracentesis TECHNIQUE: Single frontal view of the chest is obtained. FINDINGS: There is interval improved visualization of the right hemidiaphragm, improvement in aerati on at the right lung base. No evident pneumothorax. Cardiac mediastinal silhouette shows an enlarged heart although the patient is rotated. Aorta is dense. Possible chondroid lesion present in the proxi mal metaphyseal right humerus. There are overlying artifacts. IMPRESSION: No evident complication status post right thoracentesis
[2021-08-10] MEDS: polyethylene glycoL 3350 17 GM POWD.PACK PO SCH (11:48)
[2021-08-10] MEDS: FERROUS SULFATE 325 MG TAB PO SCH (11:48)
[2021-08-10] MEDS: POTASSIUM CHLORIDE ER 20 MEQ TAB.ER PO SCH (11:48)
[2021-08-10] MEDS: FUROSEMIDE 40 MG TAB PO SCH ×2 (11:48→17:43)
[2021-08-10] MEDS: carvediloL 12.5 MG TAB PO SCH ×2 (11:48→17:43)
[2021-08-10] MEDS: lisinopriL 20 MG TAB PO SCH (11:48)
[2021-08-10] MEDS ORDERED: VANCOMYCIN 1,500 MG in SODIUM CHLORIDE 0.9% 250 ML IVPB ONE (12:00)
[2021-08-10 12:24] LABS: Glucose,Whole Blood 250 mg/dL (75-99)
--- NOTE | 2021-08-10 12:32 | P.PN ---
Subjective Progress Note Date: 08/10/21 his is a 80-year-old female patient of Dr. 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 Amaya for pain management. Asked hospitalization was in March 2021 for acute on chronic diastolic heart failure. At that time echocardiogram revealed EF of 55-60% with severe concentric left ventricular hypertrophy, moderate aortic stenosis, moderate mitral regurgitation, mild tricuspid regurgitation, mild pulmonary hypertension. she was admitted at [facility], from July 28 till 07/31/2021, for right lower lobe infiltrate, with focal air space disease, and pleural effusion, she was discharged to homeCeftin, 250 twice a day, along with baclofen 5 mg 3 times a day. No other medication changes on Ahlquist, Lipitor, and diabetic medication. She is on maintenance gabapentin 100 mg daily. urinalysis and culture was negative, there were planning on short-term follow-up with MRI recommended for the lumbar spine, L3-L4, spinal stenosis.Patient comes in to emergency room, with dizziness lightheadedness, feels like she is dying, weak, she is not expectorating anything, cough is just minimal, however she does not have any significant pleurisy,in emergency room, she has mild leukocytosis, 11.2,chest x-ray shows increasing opacity obstructing right costal phrenic angle, and hemidiaphragm, suggestive of consolidative pneumonia,patient is started on Zosyn,and we will try to obtain CAT scan of the chest, to evaluate this abnormality. Patient has been tested for coronavirus PCR, and is negative. Urine WBC is 1, DEBURRING TECHNICIAN proBNP of 1320,patient is on 3 L nasal cannula, similar to her recent admission, for which the O2 has been prescribed at that time. July 28 admission 08/08: Patient was seen this morning by Dr. Friedman for right-sided pneumonia, parapneumonic effusion and acute on chronic hypoxic respiratory failure. He recommended continuing Zosyn and added vancomycin. CAT scan of the chest revealed right pleural effusion and right lower lobe airspace consolidation. Cardiomegaly. No discrete pulmonary mass identified. Ultrasound of the chest revealed right pleural effusion pocket of a 8.5 cm and was marked. Blood culture showing no growth at 24 hours times one, sputum culture in progress. Patient has been afebrile, heart rate 63, blood pressure 169/67, pulse ox 94% on room air. 08/09: Patient has been afebrile, heart rate 71, blood pressure 143/81, pulse ox 96% on 4 L nasal cannula. Patient is to be seen by interventional radiology for thoracentesis on the right, consult with Dr. Friedman of appreciated. Vancomycin has been ordered. Blood sugars are running in the 200s and patient will be resumed back on her home dose of NovoLog mix 7030 30 units with breakfast and 20 with supper and start NovoLog scale before meals and at bedtime. Legionella testing negative. : Patient is doing much better, 2 L was out from thoracentesis, pulse ox in the high 90s, on 3-4 L nasal cannula, cultures are currently pending from sputum, blood, thoracentesis fluid for cultures are currently pending. Patient requests home discharge, she was able to ambulate in the hallway, however she is not capable of giving her current partner, does have dementia, so this would be less of a problem for her when she gets home. No change in IV vancomycin, no leukocytosis today. No fever, improved shortness of breath Review of Systems Constitutional: Reports as per HPI, Reports chronic pain, Reports fatigue, Rep orts weakness Ears, nose, mouth and throat: Reports as per HPI Cardiovascular: Reports as per HPI, Reports decreased exercise tolerance Respiratory: Reports as per HPI, Reports cough, Reports respiratory infections Gastrointestinal: Reports as per HPI, Reports constipation, Denies early satiety, Denies hematemesis, Denies loss of appetite, Denies nausea, Denies vomiting Genitourinary: Reports as per HPI, Reports dysuria, Denies incomplete emptying, Denies urinary frequency Menstruation: Postmenopausal Musculoskeletal: Reports as per HPI, Reports gait dysfunction, Reports low back pain Integumentary: Reports as per HPI Neurological: Reports as per HPI, Reports gait dysfunction Psychiatric: Reports as per HPI, Reports sleep disturbances Endocrine: Reports as per HPI, Reports fatigue, Denies weight change, noted hype rglycemia Hematologic/Lymphatic: Reports as per HPI Allergic/Immunologic: Reports as per HPI PHYSICAL EXAMINATION Gen: This is a 80-year-old female, obese, patient resting and bed and appears to be in no acute respiratory distress. seems to be improved.. HEENT: Head is atraumatic, normocephalic. Pupils equal, round. Sclerae is anicteric. NECK: Supple. No JVD. No lymphadenopathy. No thyromegaly. LUNGS: diminished to bases but otherwise clear to auscultation. No wheezes or rhonchi. No intercostal retractions. HEART: Regular rate and rhythm. 3/6 systolic murmur. ABDOMEN: Soft. Bowel sounds are present. No masses. No tenderness. EXTREMITIES: 1+ bilateral pedal edema. No calf tenderness. Dorsalis pedis +2 bilaterally. Right hip tenderness, decreased range of motion due to pain. NEUROLOGICAL: Patient is awake, alert and oriented x3. Cranial nerves 2 through 12 are grossly intact. ASSESSMENT AND PLAN 1. pleurisy, with right sided pneumonic infiltrate, progressive,suggestive of possibly facility acquired pneumonia, gram-negative pneumonia, right-sided pleural effusion. Continue Zosyn, vancomycin and by Dr. Friedman, consult pulmonary medicine appreciated. Chest ultrasound has been done and marked. Interventional radiology consult in place. 2. Recent Syncopal episode most likely vasovagal. Patient was seen by cardiology on previous admission. Amlodipine changed to dosing at bedtime and Imdur were discontinued. 2. Chronic diastolic heart failure and also early pneumonia. Continue Coreg 12.5 mg twice daily, resume Lasix 40 mg twice daily. 3. Diabetes mellitus type 2 uncontrolled with hyperglycemia. Continue Actos 15 mg daily, NovoLog mix 7030 30 units with breakfast and 20 units with supper. Continue NovoLog scale before meals and at bedtime. A1c March 2021 was 10.5 4. Situational anxiety disorder. Xanax 25 mg twice daily added.. 5. Paroxysmal atrial fibrillation continue eliquis 5 mg twice daily, Coreg 12.5 mg twice daily. 6. Hypertension hypertensive cardiovascular disease. Continue amlodipine 10 mg hs, Coreg 12.5 mg twice daily, hydralazine 100 mg 3 times daily, lisinopril 40 mg daily.. Possible labetalol instead of Coreg 7. Hypothyroidism. Continue levothyroxine 125 g daily. 8. Diabetic neuropathy. Continue gabapentin 100 mg daily. 9. 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 Continue albuterol nebulizer every 6 hours as needed. 10. Chronic kidney disease stage III. Avoid nephrotoxic agents, monitor kidney function. 11. Obstructive sleep apnea unable to tolerate CPAP. Patient will need to reestablish with pulmonary medicine and outpatient follow-up for sleep study. 12. Degenerative disc disease with chronic pain. Follows with pain management with Dr. Amaya. 13. Hyperlipidemia. Continue Lipitor 80 mg at bedtime. 14. Chronic anemia. Continue ferrous sulfate 325 mg daily. 15. Right hip pain secondary to osteoarthritis and lumbar pain secondary to degenerative changes. .Patient to follow-up with orthopedic spine in the outpatient setting for MRI of the lumbar spine. Continue baclofen GI prophylaxis. Protonix. DVT prophylaxis. Eliquis. DISCHARGE PLAN Most likely subacute rehab, consult PT and OT and is progressing, most likely home with therapy, Laboratory Results - Last 24 Hours 08/09/21 08/09/21 08/09/21 12:25 17:35 20:11 WBC RBC Hgb Hct MCV MCH MCHC RDW Plt Count MPV Hypochromasia Sodium Potassium Chloride Carbon Dioxide Anion Gap BUN Creatinine Est GFR (CKD-EPI)AfAm Est GFR (CKD-EPI)NonAf Glucose POC Glucose (mg/dL) 242 H 271 H 255 H POC Glu [employer] ID Sharda Huffman Laura Purk, Emily Calcium 08/10/21 08/10/21 08/10/21 02:38 04:41 04:41 WBC 10.5 RBC 4.02 Hgb 11.1 L Hct 36.4 MCV 90.8 MCH 27.6 MCHC 30.4 L RDW 14.1 Plt Count 278 MPV 7.8 Hypochromasia Moderate Sodium 138 Potassium 3.7 Chloride 100 Carbon Dioxide 31 H Anion Gap 7 BUN 26 H Creatinine 1.80 H Est GFR (CKD-EPI)AfAm 30 Est GFR (CKD-EPI)NonAf 26 Glucose 140 H POC Glucose (mg/dL) 135 H POC Glu [employer] ID Matthew Joya Calcium 8.3 L 08/10/21 08/10/21 07:41 12:14 WBC RBC Hgb Hct MCV MCH MCHC RDW Plt Count MPV Hypochromasia Sodium Potassium Chloride Carbon Dioxide Anion Gap BUN Creatinine Est GFR (CKD-EPI)AfAm Est GFR (CKD-EPI)NonAf Glucose POC Glucose (mg/dL) 171 H 250 H POC Glu [employer] ID Erlinda Zapata Melly Calcium Current Medications Acetaminophen (Acetaminophen Tab 500 Mg Tab) 500 mg PO Q6HR PRN PRN Reason: Fever and/ or Mild Pain Last Admin: 08/10/21 03:52 Dose: 500 mg Documented by: Albuterol/Ipratropium (Ipratropium-Albuterol 3 Ml Neb) 3 ml INHALATION Q6HR PRN PRN Reason: Dyspnea Alprazolam (Alprazolam 0.25 Mg Tab) 0.25 mg PO BID PRN PRN Reason: Anxiety Last Admin: 08/10/21 03:52 Dose: 0.25 mg Documented by: Amlodipine Besylate (Amlodipine 10 Mg Tab) 10 mg PO HS [facility] Last Admin: 08/09/21 20:15 Dose: 10 mg Documented by: Amlodipine Besylate (Amlodipine 5 Mg Tab) 5 mg PO DAILY [facility] Last Admin: 08/10/21 09:23 Dose: Not Given Documented by: Apixaban (Apixaban 5 Mg Tab) 5 mg PO BID [facility]; Protocol Last Admin: 08/09/21 12:05 Dose: Not Given Documented by: Artificial Tears (Artificial Tears-Hypromellose Drops 15 Ml Btl) 1 drops BOTH EYES TID PRN PRN Reason: Dry Eye(s) Last Admin: 08/08/21 02:59 Dose: 1 drops Documented by: Atorvastatin Calcium (Atorvastatin 80 Mg Tab) 80 mg PO [facility] Last Admin: 08/09/21 20:16 Dose: 80 mg Documented by: Baclofen (Baclofen 10 Mg Tab) 5 mg PO TID PRN PRN Reason: Muscle Spasm Last Admin: 08/08/21 10:39 Dose: 5 mg Documented by: Carvedilol (Carvedilol 12.5 Mg Tab) 12.5 mg PO BID-W/MEALS [facility] Last Admin: 08/10/21 11:48 Dose: 12.5 mg Documented by: Ergocalciferol (Ergocalciferol 1,250 Mcg (50,000 Iu) Capsule) 1,250 mcg PO TU [facility] Last Admin: 08/09/21 08:29 Dose: 1,250 mcg Documented by: Ferrous Sulfate (Ferrous Sulfate 325 Mg Tab) 325 mg PO DAILY [facility] Last Admin: 08/10/21 11:48 Dose: 325 mg Documented by: Furosemide (Furosemide 40 Mg Tab) 40 mg PO BID@0900,1600 [facility] Last Admin: 08/10/21 11:48 Dose: 40 mg Documented by: Gabapentin (Gabapentin 100 Mg Cap) 100 mg PO DAILY [facility] Last Admin: 08/10/21 09:25 Dose: 100 mg Documented by: Hydralazine HCl (Hydralazine Hcl 50 Mg Tab) 100 mg PO TID [facility] Last Admin: 08/10/21 09:25 Dose: 100 mg Documented by: Sodium Chloride (Saline 0.9%) 1,000 mls @ 20 mls/hr IV .Q24H [facility] Last Admin: 08/09/21 22:19 Dose: 20 mls/hr Documented by: Vancomycin HCl 1,500 mg/ (Sodium Chloride) 250 mls @ 125 mls/hr IVPB ONCE ONE Stop: 08/10/21 13:59 Last Admin: 08/10/21 11:59 Dose: 125 mls/hr Documented by: Piperacillin Sod/Tazobactam (Sod 3.375 gm/ Sodium Chloride) 100 mls @ 25 mls/hr IVPB Q12H [facility] Insulin Aspart (Insulin Aspart (Novolog) 100 Unit/Ml Vial) 0 unit SQ ACHS [place]; Protocol Last Admin: 08/10/21 09:22 Dose: Not Given Documented by: Insulin Aspart (Insuln Asp Prt/Insulin Aspart 100 Unit/Ml 10 Ml Vial) 20 unit SQ W/SUPPER [facility] Last Admin: 08/09/21 18:09 Dose: 20 unit Documented by: Insulin Aspart (Insuln Asp Prt/Insulin Aspart 100 Unit/Ml 10 Ml Vial) 30 unit SQ W/BRKFST [facility] Levofloxacin (Levofloxacin 750 Mg Tab) 750 mg PO HS [facility] Stop: 08/10/21 21:01 Last Admin: 08/09/21 20:15 Dose: 750 mg Documented by: Levothyroxine Sodium (Levothyroxine 125 Mcg Tab) 125 mcg PO 0630 [facility] Last Admin: 08/10/21 05:45 Dose: 125 mcg Documented by: Lisinopril (Lisinopril 20 Mg Tab) 40 mg PO DAILY [facility] Last Admin: 08/10/21 11:48 Dose: 40 mg Documented by: Melatonin (Melatonin 5 Mg Tablet) 10 mg PO [facility] Last Admin: 08/09/21 20:16 Dose: 10 mg Documented by: Miscellaneous Information (Pneumonia Protocol Utilized [address] [facility]) 1 each PO ONCE PRN PRN Reason: Per Protocol Miscellaneous Information (Vancomycin Iv Per Pharmacy [address] [facility]) 1 each MISCELLANE DIRECTED PRN; Protocol PRN Reason: Per Protocol Pioglitazone HCl (Pioglitazone 15 Mg Tab) 15 mg PO DAILY [facility] Last Admin: 08/10/21 09:25 Dose: 15 mg Documented by: Polyethylene Glycol (Polyethylene Glycol 3350 17 Gm Powd.Pack) 17 gm PO DAILY [facility] Last Admin: 08/10/21 11:48 Dose: Not Given Documented by: Potassium Chloride (Potassium Chloride Er 20 Meq Tab.Er) 20 meq PO DAILY [facility] Last Admin: 08/10/21 11:48 Dose: 20 meq Documented by: Tramadol HCl (Tramadol 50 Mg Tab) 50 mg PO TID PRN PRN Reason: Breakthrough Pain Last Admin: 08/09/21 23:29 Dose: 50 mg Documented by: Vital Signs Temp 97.8 F 08/10/21 11:05 Pulse 66 08/10/21 11:05 Resp 18 08/10/21 11:05 BP 144/67 08/10/21 11:05 Pulse Ox 99 08/10/21 11:05 Intake & Output 08/09/21 08/10/21 08/10/21 18:59 06:59 18:59 Other: Voiding Method Toilet Toilet Bedside Commode # Voids 6 5 Objective - Vital Signs Vital signs: Vital Signs Temp 97.8 F 08/10/21 11:05 Pulse 66 08/10/21 11:05 Resp 18 08/10/21 11:05 BP 144/67 08/10/21 11:05 Pulse Ox 99 08/10/21 11:05 Intake & Output 08/09/21 08/10/21 08/10/21 18:59 06:59 18:59 Other: Voiding Method Toilet Toilet Bedside Commode # Voids 6 5 - Labs CBC & Chem 7: 08/10/21 04:41 08/10/21 04:41 Labs: Abnormal Lab Results - Last 24 Hours (Table) 08/09/21 08/09/21 08/09/21 Range/Units 12:25 17:35 20:11 Hgb (11.4-16.0) gm/dL MCHC (31.0-37.0) g/dL Carbon Dioxide (22-30) mmol/L BUN (7-17) mg/dL Creatinine (0.52-1.04) mg/dL Glucose (74-99) mg/dL POC Glucose (mg/dL) 242 H 271 H 255 H (75-99) mg/dL Calcium (8.4-10.2) mg/dL 08/10/21 08/10/21 08/10/21 Range/Units 02:38 04:41 04:41 Hgb 11.1 L (11.4-16.0) gm/dL MCHC 30.4 L (31.0-37.0) g/dL Carbon Dioxide 31 H (22-30) mmol/L BUN 26 H (7-17) mg/dL Creatinine 1.80 H (0.52-1.04) mg/dL Glucose 140 H (74-99) mg/dL POC Glucose (mg/dL) 135 H (75-99) mg/dL Calcium 8.3 L (8.4-10.2) mg/dL 08/10/21 08/10/21 Range/Units 07:41 12:14 Hgb (11.4-16.0) gm/dL MCHC (31.0-37.0) g/dL Carbon Dioxide (22-30) mmol/L BUN (7-17) mg/dL Creatinine (0.52-1.04) mg/dL Glucose (74-99) mg/dL POC Glucose (mg/dL) 171 H 250 H (75-99) mg/dL Calcium (8.4-10.2) mg/dL Microbiology - Last 24 Hours (Table) 08/07/21 22:09 Gram Stain - Final Sputum Sputum Culture - Final 08/06/21 21:37 Blood Culture - Preliminary Blood No Growth after 72 hours 08/06/21 21:37 Blood Culture - Preliminary Blood No Growth after 72 hours
--- NOTE | 2021-08-10 13:12 | US ---
EXAMINATION TYPE: US thoracentesis DATE OF EXAM: 08/10/2021 COMPARISON: NONE HISTORY: Pleural effusion on the right. FINDINGS: Maximal barrier technique was utilized. The skin overlying a suitable pocket of fluid was localized and the overlying skin prepped and draped. Lidocaine was used for local anesthesia. Ultras ound was used with sterile technique. A 5 Upper [place] catheter over guide needle was advanced into the pl eural fluid collection using ultrasound guidance and the catheter advanced, needle removed. Approxim ately 0.4 liter(s) of serous fluid was removed. Catheter was withdrawn and hemostasis achieved. The re is no immediate complication. The patient discharged in stable condition without complication. IMPRESSION: STATUS POST ULTRASOUND GUIDED THORACENTESIS, POST PROCEDURE CHEST X-RAY PENDING. THIS ID OCEDURE WAS PERFORMED BY THE UNDERSIGNED. Specimen sent for laboratory analysis.
[2021-08-10 15:24] LABS: Appearance,BF Cloudy
[2021-08-10 15:26] LABS: RBC, Body Fluid 104 /uL
[2021-08-10 15:27] LABS: Nucleated Cells, Body Fluid 162 /uL
[2021-08-10 15:29] LABS: Mononuclear WBC,Body Fluid 98 %; Polynuclear WBC,Body Fluid 2 %; Total Cells Counted,Body Fluid 100
[2021-08-10] MEDS: INSULN ASP PRT/INSULIN ASPART 100 UNIT/ML 10 ML VIAL SQ SCH ×2 (15:42→17:44)
[2021-08-10 17:14] LABS: Glucose,Whole Blood 253 mg/dL (75-99)
[2021-08-10 20:28] LABS: Glucose,Whole Blood 231 mg/dL (75-99)
[2021-08-10] MEDS: LEVOFLOXACIN 750 MG TAB PO SCH (21:59)
[2021-08-10] MEDS: APIXABAN 5 MG TAB PO SCH (21:59)
[2021-08-10] MEDS: ATORVASTATIN 80 MG TAB PO SCH (22:00)
[2021-08-10] MEDS: MELATONIN 5 MG TABLET PO SCH (22:00)
[2021-08-10] MEDS: amLODIPine 10 MG TAB PO SCH (22:00)
[2021-08-10] MEDS: SODIUM CHLORIDE 0.9% 1,000 ML IV SCH (23:56)
[2021-08-11] MEDS: ACETAMINOPHEN TAB 500 MG TAB PO PRN ×2 (01:27→21:54)
[2021-08-11 02:39] LABS: Amylase, Fluid Source Pleural Fluid; Amylase,Body Fluid 16 U/L; Glucose, BF Source Pleural Fluid; Glucose, Body Fluid 231 mg/dL; LDH, Body Fluid Source Pleural Fluid; T. Protein, Body Fluid Source Pleural Fluid; Total Protein, Body Fluid 1870 mg/dL
[2021-08-11] MEDS: PIPERACILLIN-TAZOBACTAM 3.375 GM in SODIUM CHLORIDE 0.9% 100 ML IVPB SCH ×2 (06:18→17:47)
[2021-08-11] MEDS: LEVOTHYROXINE 125 MCG TAB PO SCH (06:18)
[2021-08-11 07:12] LABS: Glucose,Whole Blood 174 mg/dL (75-99)
[2021-08-11] MEDS: amLODIPine 5 MG TAB PO SCH (09:23)
[2021-08-11] MEDS: FERROUS SULFATE 325 MG TAB PO SCH (09:23)
[2021-08-11] MEDS: carvediloL 12.5 MG TAB PO SCH ×2 (09:23→17:47)
[2021-08-11] MEDS: APIXABAN 5 MG TAB PO SCH ×2 (09:23→20:24)
[2021-08-11] MEDS: GABAPENTIN 100 MG CAP PO SCH (09:24)
[2021-08-11] MEDS: FUROSEMIDE 40 MG TAB PO SCH ×2 (09:24→17:47)
[2021-08-11] MEDS: PIOGLITAZONE 15 MG TAB PO SCH (09:24)
[2021-08-11] MEDS: hydrALAZINE HCL 50 MG TAB PO SCH ×3 (09:24→20:24)
[2021-08-11] MEDS: lisinopriL 20 MG TAB PO SCH (09:24)
[2021-08-11] MEDS: polyethylene glycoL 3350 17 GM POWD.PACK PO SCH (09:24)
[2021-08-11] MEDS: POTASSIUM CHLORIDE ER 20 MEQ TAB.ER PO SCH (09:25)
[2021-08-11] MEDS: INSULIN ASPART (NovoLOG) 100 UNIT/ML VIAL SQ SCH ×4 (09:33→20:01)
[2021-08-11] MEDS: INSULN ASP PRT/INSULIN ASPART 100 UNIT/ML 10 ML VIAL SQ SCH ×2 (09:34→17:47)
--- NOTE | 2021-08-11 09:44 | P.PN ---
Subjective Progress Note Date: 08/10/21 Principal diagnosis: Right-sided complicated pneumonia Right parapneumonic effusion Acute on chronic hypoxic respiratory failure due to worsening pneumonia Syncope likely vasovagal cardiovascular services following Type 2 diabetes mellitus with hyperglycemia Morbid obesity Paroxysmal atrial fibrillation on direct anticoagulants Hypertension hypertensive cardiovascular disease Hypothyroidism Morbid obesity sleep disorder breathing and sleep apnea noncompliant with the CPAP stopped using it 08/10/2020, patient overall doing better status post thoracentesis about 400 mL of fluid has been removed from the right side by IR, patient is down to 2 L nasal cannula, oxygen saturation is low 90s, cytology culture results Results are pending, patient remains on IV vancomycin and Zosyn 08/09/2021, patient seen eval examined during the rounds labs reviewed medications reviewed care plan discussed, respiratory status remains stable denies any chest pain shortness breath is stable now patient feeling much better sitting upright in chair breathing comfortably, vitals today reviewed remains afebrile with heart rate of 70 respiratory 18, blood pressure stable 140 of 80, saturation is 96% on 4 L nasal cannula, blood culture no growth so far, sputum for gram stain and culture pending, ultrasound of the chest results and report reviewed, moderate size right pleural effusion is present, we'll consult IR to do a right-sided thoracentesis and add vancomycin Patient is a 80-year-old secondhand exposure to smoking with COPD patient has congestive heart failure as well she is on home oxygen 2 L nasal cannula, patient presented in the emergency department with ongoing symptoms of dizziness lightheadedness, cough, patient was hospitalized July 28 to July 31 for right lower lobe pneumonia she finished outpatient course of Ceftin after. Her transient improvement patient started decompensating with increased symptomatic predominantly pulmonary related, on arrival to emergency department she had a chest x-ray which showed worsening of infiltrate patient admitted to hospital on IV Zosyn for healthcare associated pneumonia, patient sees Dr. Laguna the primary care activity, Dr. Hernandez for cardiovascular problem issues, has chronic history of paroxysmal atrial fibrillation hypertension hypertensive cardiovascular disease dyslipidemia COPD diabetes mellitus type 2, hypothyroidism, her labs were significant for mild leukocytosis with WBC count 11,400, and crit is 23/1.18, the chest x-ray continued to show a right lower lobe infiltrate, follow-up chest x-ray continue show with slight worsening of right-sided pneumonia effusion, ultrasound of the leg is negative for deep venous thrombosis computed tomography scan of the chest chest revealed presence of the effusion small to moderate size, right lower lobe pneumonia, Objective - Vital Signs Vital signs: Vital Signs Temp 97.8 F 08/10/21 11:05 Pulse 57 L 08/10/21 12:35 Resp 18 08/10/21 11:05 BP 129/73 08/10/21 12:35 Pulse Ox 99 08/10/21 11:05 Intake & Output 08/09/21 08/10/21 08/10/21 18:59 06:59 18:59 Other: Voiding Method Toilet Toilet Toilet Bedside Commode Bedside Commode # Voids 6 5 - Exam - Constitutional General appearance: average body habitus, cooperative, disheveled, morbidly obese - EENT Eyes: EOMI, PERRLA Ears: bilateral: normal - Neck Carotids: bilateral: upstroke normal Thyroid: negative: normal size - Respiratory Respiratory: right: diminished, dullness, rales, bilateral: rhonchi - Cardiovascular Rhythm: regular Heart sounds: normal: S1, S2 - Gastrointestinal General gastrointestinal: distended, normal bowel sounds, soft - Integumentary Integumentary: normal turgor - Neurologic Neurologic: CNII-XII intact - Musculoskeletal Musculoskeletal: gait normal, generalized weakness, strength equal bilaterally - Psychiatric Psychiatric: A&O x's 3, appropriate affect, intact judgment & insight - Labs CBC & Chem 7: 08/10/21 04:41 08/11/21 04:53 Labs: Abnormal Lab Results - Last 24 Hours (Table) 08/09/21 08/09/21 08/10/21 Range/Units 17:35 20:11 02:38 Hgb (11.4-16.0) gm/dL MCHC (31.0-37.0) g/dL Carbon Dioxide (22-30) mmol/L BUN (7-17) mg/dL Creatinine (0.52-1.04) mg/dL Glucose (74-99) mg/dL POC Glucose (mg/dL) 271 H 255 H 135 H (75-99) mg/dL Calcium (8.4-10.2) mg/dL 08/10/21 08/10/21 08/10/21 Range/Units 04:41 04:41 07:41 Hgb 11.1 L (11.4-16.0) gm/dL MCHC 30.4 L (31.0-37.0) g/dL Carbon Dioxide 31 H (22-30) mmol/L BUN 26 H (7-17) mg/dL Creatinine 1.80 H (0.52-1.04) mg/dL Glucose 140 H (74-99) mg/dL POC Glucose (mg/dL) 171 H (75-99) mg/dL Calcium 8.3 L (8.4-10.2) mg/dL 08/10/21 Range/Units 12:14 Hgb (11.4-16.0) gm/dL MCHC (31.0-37.0) g/dL Carbon Dioxide (22-30) mmol/L BUN (7-17) mg/dL Creatinine (0.52-1.04) mg/dL Glucose (74-99) mg/dL POC Glucose (mg/dL) 250 H (75-99) mg/dL Calcium (8.4-10.2) mg/dL Microbiology - Last 24 Hours (Table) 08/07/21 22:09 Gram Stain - Final Sputum Sputum Culture - Final 08/06/21 21:37 Blood Culture - Preliminary Blood No Growth after 72 hours 08/06/21 21:37 Blood Culture - Preliminary Blood No Growth after 72 hours Assessment and Plan Assessment: Right-sided complicated pneumonia Right parapneumonic effusion status post a thoracentesis by interventional radiology Acute on chronic hypoxic respiratory failure due to worsening pneumonia Syncope likely vasovagal cardiovascular services following Type 2 diabetes mellitus with hyperglycemia Morbid obesity Paroxysmal atrial fibrillation on direct anticoagulants Hypertension hypertensive cardiovascular disease Hypothyroidism Morbid obesity sleep disorder breathing and sleep apnea noncompliant with the CPAP stopped using it Plan: Continue Zosyn Continue vancomycin with pharmacy to dose Follow-up results and reports of pleural fluid studies Time with Patient: Greater than 30
--- NOTE | 2021-08-11 09:49 | P.PN ---
Subjective Progress Note Date: 08/11/21 Principal diagnosis: Right-sided complicated pneumonia Right parapneumonic effusion Acute on chronic hypoxic respiratory failure due to worsening pneumonia Syncope likely vasovagal cardiovascular services following Type 2 diabetes mellitus with hyperglycemia Morbid obesity Paroxysmal atrial fibrillation on direct anticoagulants Hypertension hypertensive cardiovascular disease Hypothyroidism Morbid obesity sleep disorder breathing and sleep apnea noncompliant with the CPAP stopped using it 08/11/2021 patient seen eval reexamined labs reviewed medications reviewed care plan discussed, felt better after the thoracentesis, patient is on 2 L nasal cannula breathing comfortably, some of the results of pleural fluid studies are back which includes cloudy appearance LDH is 102 and total protein is 1870, cytology is pending, culture results are pending, findings suggestive of transudative effusion 08/10/2021, patient overall doing better status post thoracentesis about 400 mL of fluid has been removed from the right side by IR, patient is down to 2 L nasal cannula, oxygen saturation is low 90s, cytology culture results Results are pending, patient remains on IV vancomycin and Zosyn 08/09/2021, patient seen eval examined during the rounds labs reviewed medica tions reviewed care plan discussed, respiratory status remains stable denies any chest pain shortness breath is stable now patient feeling much better sitting upright in chair breathing comfortably, vitals today reviewed remains afebrile with heart rate of 70 respiratory 18, blood pressure stable 140 of 80, saturation is 96% on 4 L nasal cannula, blood culture no growth so far, sputum for gram stain and culture pending, ultrasound of the chest results and report reviewed, moderate size right pleural effusion is present, we'll consult IR to do a right-sided thoracentesis and add vancomycin Patient is a 80-year-old secondhand exposure to smoking with COPD patient has congestive heart failure as well she is on home oxygen 2 L nasal cannula, patient presented in the emergency department with ongoing symptoms of dizziness lightheadedness, cough, patient was hospitalized July 28 to July 31 for right lower lobe pneumonia she finished outpatient course of Ceftin after. Her transient improvement patient started decompensating with increased symptomatic predominantly pulmonary related, on arrival to emergency department she had a chest x-ray which showed worsening of infiltrate patient admitted to hospital on IV Zosyn for healthcare associated pneumonia, patient sees Dr. Laguna the primary care activity, Dr. Hernandez for cardiovascular problem issues, has chronic history of paroxysmal atrial fibrillation hypertension hypertensive cardiovascular disease dyslipidemia COPD diabetes mellitus type 2, hypothyroidism, her labs were significant for mild leukocytosis with WBC count 11,400, and crit is 23/1.18, the chest x-ray continued to show a right lower lobe infiltrate, follow-up chest x-ray continue show with slight worsening of right-sided pneumonia effusion, ultrasound of the leg is negative for deep venous thrombosis computed tomography scan of the chest chest revealed presence of the effusion small to moderate size, right lower lobe pneumonia, Objective - Vital Signs Vital signs: Vital Signs Temp 97.9 F 08/11/21 05:06 Pulse 69 08/11/21 09:25 Resp 18 08/11/21 05:06 BP 132/64 08/11/21 09:25 Pulse Ox 100 08/11/21 05:06 Intake & Output 08/10/21 08/11/21 08/11/21 18:59 06:59 18:59 Intake Total 240 Output Total 600 Balance -360 Intake: Oral 240 Output: Urine 600 Other: Voiding Method Toilet Toilet Bedside Commode Bedside Commode # Voids 4 - Exam - Constitutional General appearance: average body habitus, cooperative, disheveled, morbidly obe se - EENT Eyes: EOMI, PERRLA Ears: bilateral: normal - Neck Carotids: bilateral: upstroke normal Thyroid: negative: normal size - Respiratory Respiratory: right: diminished, dullness, rales, bilateral: rhonchi - Cardiovascular Rhythm: regular Heart sounds: normal: S1, S2 - Gastrointestinal General gastrointestinal: distended, normal bowel sounds, soft - Integumentary Integumentary: normal turgor - Neurologic Neurologic: CNII-XII intact - Musculoskeletal Musculoskeletal: gait normal, generalized weakness, strength equal bilaterally - Psychiatric Psychiatric: A&O x's 3, appropriate affect, intact judgment & insight - Labs CBC & Chem 7: 08/10/21 04:41 08/11/21 04:53 Labs: Abnormal Lab Results - Last 24 Hours (Table) 08/10/21 08/10/21 08/10/21 Range/Units 12:14 17:13 20:26 Creatinine (0.52-1.04) mg/dL POC Glucose (mg/dL) 250 H 253 H 231 H (75-99) mg/dL 08/11/21 08/11/21 Range/Units 04:53 07:11 Creatinine 1.91 H (0.52-1.04) mg/dL POC Glucose (mg/dL) 174 H (75-99) mg/dL Microbiology - Last 24 Hours (Table) 08/10/21 10:28 Gram Stain - Preliminary Pleural Fluid Body Fluid Culture - Preliminary 08/06/21 21:37 Blood Culture - Preliminary Blood No Growth after 96 hours 08/06/21 21:37 Blood Culture - Preliminary Blood No Growth after 96 hours 08/10/21 10:28 Acid Fast Bacilli Culture - Preliminary Pleural Fluid 08/10/21 10:28 Fungal Culture - Preliminary Pleural Fluid 08/10/21 10:28 Anaerobic Culture - Preliminary Pleural Fluid 08/07/21 22:09 Gram Stain - Final Sputum Sputum Culture - Final Assessment and Plan Assessment: Right-sided complicated pneumonia Right parapneumonic effusion status post a thoracentesis by interventional radiology Acute on chronic hypoxic respiratory failure due to worsening pneumonia Syncope likely vasovagal cardiovascular services following Type 2 diabetes mellitus with hyperglycemia Morbid obesity Paroxysmal atrial fibrillation on direct anticoagulants Hypertension hypertensive cardiovascular disease Hypothyroidism Morbid obesity sleep disorder breathing and sleep apnea noncompliant with the CPAP stopped using it Plan: Continue Zosyn Continue vancomycin with pharmacy to dose Follow-up results and reports of pleural fluid studies, if cultures are negative would recommend changing antibiotic to simple oral antibiotic like Augmentin for 5-7 days on the other hand if they turn positive then pending sensitivities possibly require longer hospital course Time with Patient: Greater than 30
--- NOTE | 2021-08-11 11:22 | P.PN ---
Subjective Progress Note Date: 08/11/21 his is a 80-year-old female patient of Dr. Dawn/Henri Mejía [employer] and Dr. 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 Amaya for pain management. Asked hospitalization was in March 2021 for acute on chronic diastolic heart failure. At that time echocardiogram revealed EF of 55-60% with severe concentric left ventricular hypertrophy, moderate aortic stenosis, moderate mitral regurgitation, mild tricuspid regurgitation, mild pulmonary hypertension. she was admitted at [facility], from July 28 till 07/31/2021, for right lower lobe infiltrate, with focal air space disease, and pleural effusion, she was discharged to homeCeftin, 250 twice a day, along with baclofen 5 mg 3 times a day. No other medication changes on Ahlquist, Lipitor, and diabetic medication. She is on maintenance gabapentin 100 mg daily. urinalysis and culture was negative, there were planning on short-term follow-up with MRI recommended for the lumbar spine, L3-L4, spinal stenosis.Patient comes in to emergency room, with dizziness lightheadedness, feels like she is dying, weak, she is not expectorating anything, cough is just minimal, however she does not have any significant pleurisy,in emergency room, she has mild leukocytosis, 11.2,chest x-ray shows increasing opacity obstructing right costal phrenic angle, and hemidiaphragm, suggestive of consolidative pneumonia,patient is started on Zosyn,and we will try to obtain CAT scan of the chest, to evaluate this abnormality. Patient has been tested for coronavirus PCR, and is negative. Urine WBC is 1, [employer] proBNP of 1320,patient is on 3 L nasal cannula, similar to her recent admission, for which the O2 has been prescribed at that time. July 28 admission 08/08: Patient was seen this morning by Dr. Friedman for right-sided pneumonia, parapneumonic effusion and acute on chronic hypoxic respiratory failure. He recommended continuing Zosyn and added vancomycin. CAT scan of the chest revealed right pleural effusion and right lower lobe airspace consolidation. Cardiomegaly. No discrete pulmonary mass identified. Ultrasound of the chest revealed right pleural effusion pocket of a 8.5 cm and was marked. Blood culture showing no growth at 24 hours times one, sputum culture in progress. Patient has been afebrile, heart rate 63, blood pressure 169/67, pulse ox 94% on room air. 08/09: Patient has been afebrile, heart rate 71, blood pressure 143/81, pulse ox 96% on 4 L nasal cannula. Patient is to be seen by interventional radiology for thoracentesis on the right, consult with Dr. Friedman of appreciated. Vancomycin has been ordered. Blood sugars are running in the 200s and patient will be resumed back on her home dose of NovoLog mix 7030 30 units with breakfast and 20 with supper and start NovoLog scale before meals and at bedtime. Legionella testing negative. 08/10: Patient is doing much better, 2 L was out from thoracentesis, pulse ox in the high 90s, on 3-4 L nasal cannula, cultures are currently pending from sputum, blood, thoracentesis fluid for cultures are currently pending. Patient requests home discharge, she was able to ambulate in the hallway, however she is not capable of giving her current partner, does have dementia, so this would be less of a problem for her when she gets home. No change in IV vancomycin, no leukocytosis today. No fever, improved shortness of breath /23: Patient is without any symptoms of shortness of breath is better, thoracentesis fluid pending cultures, and wanting to go home, however pending microbiology, we are going to keep her one more day or 2 more days depending on culture. Patient has ambulated in the hallway, with no assistance, plan for discharge to home, with a granddaughter that would be staying with her. Vital signs K, fever, pulse ox 96% on 2-3 L nasal cannula Review of Systems Constitutional: Reports as per HPI, Reports chronic pain, Reports fatigue, Reports weakness Ears, nose, mouth and throat: Reports as per HPI Cardiovascular: Reports as per HPI, Reports decreased exercise tolerance Respiratory: Reports as per HPI, Reports cough, Reports respiratory infections Gastrointestinal: Reports as per HPI, Reports constipation, Denies early satiety, Denies hematemesis, Denies loss of appetite, Denies nausea, Denies vomiting Genitourinary: Reports as per HPI, Reports dysuria, Denies incomplete emptying, Denies urinary frequency Menstruation: Postmenopausal Musculoskeletal: Reports as per HPI, Reports gait dysfunction, Reports low back pain Integumentary: Reports as per HPI Neurological: Reports as per HPI, Reports gait dysfunction Psychiatric: Reports as per HPI, Reports sleep disturbances Endocrine: Reports as per HPI, Reports fatigue, Denies weight change, noted hyperglycemia Hematologic/Lymphatic: Reports as per HPI Allergic/Immunologic: Reports as per HPI PHYSICAL EXAMINATION Gen: This is a 80-year-old female, obese, patient resting and bed and appears to be in no acute respiratory distress. seems to be improved.. HEENT: Head is atraumatic, normocephalic. Pupils equal, round. Sclerae is anicteric. NECK: Supple. No JVD. No lymphadenopathy. No thyromegaly. LUNGS: diminished to bases but otherwise clear to auscultation. No wheezes or rhonchi. No intercostal retractions. HEART: Regular rate and rhythm. 3/6 systolic murmur. ABDOMEN: Soft. Bowel sounds are present. No masses. No tenderness. EXTREMITIES: 1+ bilateral pedal edema. No calf tenderness. Dorsalis pedis +2 bilaterally. Right hip tenderness, decreased range of motion due to pain. NEUROLOGICAL: Patient is awake, alert and oriented x3. Cranial nerves 2 through 12 are grossly intact. ASSESSMENT AND PLAN 1. pleurisy, with right sided pneumonic infiltrate, progressive,suggestive of possibly facility acquired pneumonia, gram-negative pneumonia, right-sided pleural effusion. Continue Zosyn, vancomycin and by Dr. Friedman, consult pulmonary medicine appreciated. Chest ultrasound has been done and marked. Interventional radiology consult in place. 2. Recent Syncopal episode most likely vasovagal. Patient was seen by cardiology on previous admission. Amlodipine changed to dosing at bedtime and Imdur were discontinued. 2. Chronic diastolic heart failure and also early pneumonia. Continue Coreg 12.5 mg twice daily, resume Lasix 40 mg twice daily. 3. Diabetes mellitus type 2 uncontrolled with hyperglycemia. Continue Actos 15 mg daily, NovoLog mix 7030 30 units with breakfast and 20 units with supper. Continue NovoLog scale before meals and at bedtime. A1c March 2021 was 10.5 4. Situational anxiety disorder. Xanax 25 mg twice daily added.. 5. Paroxysmal atrial fibrillation continue eliquis 5 mg twice daily, Coreg 12.5 mg twice daily. 6. Hypertension hypertensive cardiovascular disease. Continue amlodipine 10 mg hs, Coreg 12.5 mg twice daily, hydralazine 100 mg 3 times daily, lisinopril 40 mg daily.. Possible labetalol instead of Coreg 7. Hypothyroidism. Continue levothyroxine 125 g daily. 8. Diabetic neuropathy. Continue gabapentin 100 mg daily. 9. 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 Continue albuterol nebulizer every 6 hours as needed. 10. Chronic kidney disease stage III. Avoid nephrotoxic agents, monitor kidney function. 11. Obstructive sleep apnea unable to tolerate CPAP. Patient will need to reestablish with pulmonary medicine and outpatient follow-up for sleep study. 12. Degenerative disc disease with chronic pain. Follows with pain management with Dr. Amaya. 13. Hyperlipidemia. Continue Lipitor 80 mg at bedtime. 14. Chronic anemia. Continue ferrous sulfate 325 mg daily. 15. Right hip pain secondary to osteoarthritis and lumbar pain secondary to degenerative changes. .Patient to follow-up with orthopedic spine in the outpatient setting for MRI of the lumbar spine. Continue baclofen GI prophylaxis. Protonix. DVT prophylaxis. Eliquis. DISCHARGE PLAN Most likely subacute rehab, consult PT and OT and is progressing, most likely home with therapy, Current Medications Acetaminophen (Acetaminophen Tab 500 Mg Tab) 500 mg PO Q6HR PRN PRN Reason: Fever and/ or Mild Pain Last Admin: 08/11/21 01:27 Dose: 500 mg Documented by: Albuterol/Ipratropium (Ipratropium-Albuterol 3 Ml Neb) 3 ml INHALATION Q6HR PRN PRN Reason: Dyspnea Last Admin: 08/11/21 08:15 Dose: 3 ml Documented by: Alprazolam (Alprazolam 0.25 Mg Tab) 0.25 mg PO BID PRN PRN Reason: Anxiety Last Admin: 08/10/21 03:52 Dose: 0.25 mg Documented by: Amlodipine Besylate (Amlodipine 10 Mg Tab) 10 mg PO HS [facility] Last Admin: 08/10/21 22:00 Dose: 10 mg Documented by: Amlodipine Besylate (Amlodipine 5 Mg Tab) 5 mg PO DAILY [facility] Last Admin: 08/11/21 09:23 Dose: 5 mg Documented by: Apixaban (Apixaban 5 Mg Tab) 5 mg PO BID [facility]; Protocol Last Admin: 08/11/21 09:23 Dose: 5 mg Documented by: Artificial Tears (Artificial Tears-Hypromellose Drops 15 Ml Btl) 1 drops BOTH EYES TID PRN PRN Reason: Dry Eye(s) Last Admin: 08/08/21 02:59 Dose: 1 drops Documented by: Atorvastatin Calcium (Atorvastatin 80 Mg Tab) 80 mg PO HS [facility] Last Admin: 08/10/21 22:00 Dose: 80 mg Documented by: Baclofen (Baclofen 10 Mg Tab) 5 mg PO TID PRN PRN Reason: Muscle Spasm Last Admin: 08/08/21 10:39 Dose: 5 mg Documented by: Carvedilol (Carvedilol 12.5 Mg Tab) 12.5 mg PO BID-W/MEALS [facility] Last Admin: 08/11/21 09:23 Dose: 12.5 mg Documented by: Ergocalciferol (Ergocalciferol 1,250 Mcg (50,000 Iu) Capsule) 1,250 mcg PO TU [facility] Last Admin: 08/09/21 08:29 Dose: 1,250 mcg Documented by: Ferrous Sulfate (Ferrous Sulfate 325 Mg Tab) 325 mg PO DAILY [facility] Last Admin: 08/11/21 09:23 Dose: 325 mg Documented by: Furosemide (Furosemide 40 Mg Tab) 40 mg PO BID@0900,1600 [facility] Last Admin: 08/11/21 09:24 Dose: 40 mg Documented by: Gabapentin (Gabapentin 100 Mg Cap) 100 mg PO DAILY [facility] Last Admin: 08/11/21 09:24 Dose: 100 mg Documented by: Hydralazine HCl (Hydralazine Hcl 50 Mg Tab) 100 mg PO TID [facility] Last Admin: 08/11/21 09:24 Dose: 100 mg Documented by: Sodium Chloride (Saline 0.9%) 1,000 mls @ 20 mls/hr IV .Q24H [facility] Last Admin: 08/10/21 23:56 Dose: Not Given Documented by: Piperacillin Sod/Tazobactam (Sod 3.375 gm/ Sodium Chloride) 100 mls @ 25 mls/hr IVPB Q12H [facility] Last Admin: 08/11/21 06:18 Dose: 25 mls/hr Documented by: Vancomycin HCl 1,500 mg/ (Sodium Chloride) 250 mls @ 125 mls/hr IVPB ONCE ONE Stop: 08/11/21 13:59 Insulin Aspart (Insulin Aspart (Novolog) 100 Unit/Ml Vial) 0 unit SQ ACHS [facility]; Protocol Last Admin: 08/11/21 09:33 Dose: 2 unit Documented by: Insulin Aspart (Insuln Asp Prt/Insulin Aspart 100 Unit/Ml 10 Ml Vial) 20 unit SQ W/SUPPER [facility] Last Admin: 08/10/21 17:44 Dose: 20 unit Documented by: Insulin Aspart (Insuln Asp Prt/Insulin Aspart 100 Unit/Ml 10 Ml Vial) 30 unit SQ W/BRKFST [facility] Last Admin: 08/11/21 09:34 Dose: 30 unit Documented by: Levothyroxine Sodium (Levothyroxine 125 Mcg Tab) 125 mcg PO 30 [facility] Last Admin: 08/11/21 06:18 Dose: 125 mcg Documented by: Lisinopril (Lisinopril 20 Mg Tab) 40 mg PO DAILY [facility] Last Admin: 08/11/21 09:24 Dose: 40 mg Documented by: Melatonin (Melatonin 5 Mg Tablet) 10 mg PO HS [facility] Last Admin: 08/10/21 22:00 Dose: 10 mg Documented by: Miscellaneous Information (Pneumonia Protocol Utilized 1 Each [facility] [place]) 1 each PO ONCE PRN PRN Reason: Per Protocol Miscellaneous Information (Vancomycin Iv Per Pharmacy 1 Each [facility]) 1 each MISCELLANE DIRECTED PRN; Protocol PRN Reason: Per Protocol Pioglitazone HCl (Pioglitazone 15 Mg Tab) 15 mg PO DAILY [facility] Last Admin: 08/11/21 09:24 Dose: 15 mg Documented by: Polyethylene Glycol (Polyethylene Glycol 3350 17 Gm Powd.Pack) 17 gm PO DAILY [facility] Last Admin: 08/11/21 09:24 Dose: 17 gm Documented by: Potassium Chloride (Potassium Chloride Er 20 Meq Tab.Er) 20 meq PO DAILY [facility] Last Admin: 08/11/21 09:25 Dose: 20 meq Documented by: Tramadol HCl (Tramadol 50 Mg Tab) 50 mg PO TID PRN PRN Reason: Breakthrough Pain Last Admin: 08/09/21 23:29 Dose: 50 mg Documented by: Vital Signs Temp 97.9 F 08/11/21 05:06 Pulse 69 08/11/21 09:25 Resp 18 08/11/21 05:06 BP 132/64 08/11/21 09:25 Pulse Ox 100 08/11/21 05:06 Intake & Output 08/10/21 08/11/21 08/11/21 18:59 06:59 18:59 Intake Total 240 Output Total 600 Balance -360 Intake: Oral 240 Output: Urine 600 Other: Voiding Method Toilet Toilet Bedside Commode Bedside Commode # Voids 4 Laboratory Results - Last 24 Hours 08/10/21 08/10/21 08/10/21 10:28 10:28 12:14 Creatinine Est GFR (CKD-EPI)AfAm Est GFR (CKD-EPI)NonAf POC Glucose (mg/dL) 250 H POC Glu [place] ID Melly Perkins Fluid Source Pleural Fluid Appearance Cloudy Fluid RBC 104 Fluid Nucleated Cells 162 Fluid Polynuclear WBCs 2 Fluid Mononuclear WBCs 98 Body Fluid Glucose Source Pleural Fluid Fluid Glucose 231 Body Fluid Protein Source Pleural Fluid Fluid Total Protein 1870 Body Fluid LDH Source Pleural Fluid Fluid LDH 102 Body Fluid Amylase Source Pleural Fluid Fluid Amylase 16 Random Vancomycin 08/10/21 08/10/21 08/11/21 17:13 20:26 04:53 Creatinine 1.91 H Est GFR (CKD-EPI)AfAm 28 Est GFR (CKD-EPI)NonAf 25 POC Glucose (mg/dL) 253 H 231 H POC Glu [place] ID Erlinda Zapata Patricia Fluid Source Fluid Appearance Fluid RBC Fluid Nucleated Cells Fluid Polynuclear WBCs Fluid Mononuclear WBCs Body Fluid Glucose Source Fluid Glucose Body Fluid Protein Source Fluid Total Protein Body Fluid LDH Source Fluid LDH Body Fluid Amylase Source Fluid Amylase Random Vancomycin 08/11/21 08/11/21 04:53 07:11 Creatinine Est GFR (CKD-EPI)AfAm Est GFR (CKD-EPI)NonAf POC Glucose (mg/dL) 174 H POC Glu [place] ID Sonali Maguire Fluid Source Fluid Appearance Fluid RBC Fluid Nucleated Cells Fluid Polynuclear WBCs Fluid Mononuclear WBCs Body Fluid Glucose Source Fluid Glucose Body Fluid Protein Source Fluid Total Protein Body Fluid LDH Source Fluid LDH Body Fluid Amylase Source Fluid Amylase Random Vancomycin 16.6 Objective - Vital Signs Vital signs: Vital Signs Temp 97.9 F 08/11/21 05:06 Pulse 69 08/11/21 09:25 Resp 18 08/11/21 05:06 BP 132/64 08/11/21 09:25 Pulse Ox 100 08/11/21 05:06 Intake & Output 08/10/21 08/11/21 08/11/21 18:59 06:59 18:59 Intake Total 240 Output Total 600 Balance -360 Intake: Oral 240 Output: Urine 600 Other: Voiding Method Toilet Toilet Bedside Commode Bedside Commode # Voids 4 - Labs CBC & Chem 7: 08/10/21 04:41 08/11/21 04:53 Labs: Abnormal Lab Results - Last 24 Hours (Table) 08/10/21 08/10/21 08/10/21 Range/Units 12:14 17:13 20:26 Creatinine (0.52-1.04) mg/dL POC Glucose (mg/dL) 250 H 253 H 231 H (75-99) mg/dL 08/11/21 08/11/21 Range/Units 04:53 07:11 Creatinine 1.91 H (0.52-1.04) mg/dL POC Glucose (mg/dL) 174 H (75-99) mg/dL Microbiology - Last 24 Hours (Table) 08/10/21 10:28 Gram Stain - Preliminary Pleural Fluid Body Fluid Culture - Preliminary 08/06/21 21:37 Blood Culture - Preliminary Blood No Growth after 96 hours 08/06/21 21:37 Blood Culture - Preliminary Blood No Growth after 96 hours 08/10/21 10:28 Acid Fast Bacilli Culture - Preliminary Pleural Fluid 08/10/21 10:28 Fungal Culture - Preliminary Pleural Fluid 08/10/21 10:28 Anaerobic Culture - Preliminary Pleural Fluid 08/07/21 22:09 Gram Stain - Final Sputum Sputum Culture - Final
[2021-08-11] MEDS ORDERED: VANCOMYCIN 1,500 MG in SODIUM CHLORIDE 0.9% 250 ML IVPB ONE (12:00)
[2021-08-11 12:06] LABS: Glucose,Whole Blood 184 mg/dL (75-99)
[2021-08-11 12:52] VITALS: BMI 40.8
[2021-08-11] MEDS: ALPRAZolam 0.25 MG TAB PO PRN (13:01)
[2021-08-11 17:29] LABS: Glucose,Whole Blood 127 mg/dL (75-99)
[2021-08-11 20:01] LABS: Glucose,Whole Blood 128 mg/dL (75-99)
[2021-08-11] MEDS: ATORVASTATIN 80 MG TAB PO SCH (20:23)
[2021-08-11] MEDS: MELATONIN 5 MG TABLET PO SCH (20:23)
[2021-08-11] MEDS: amLODIPine 10 MG TAB PO SCH (20:24)
[2021-08-11] MEDS: SODIUM CHLORIDE 0.9% 1,000 ML IV SCH (22:58)
[2021-08-12] MEDS: ALPRAZolam 0.25 MG TAB PO PRN (00:04)
[2021-08-12] MEDS: PIPERACILLIN-TAZOBACTAM 3.375 GM in SODIUM CHLORIDE 0.9% 100 ML IVPB SCH (05:03)
[2021-08-12 06:30] LABS: African American GFR (CKD) 26 (>60 ml/min/1.73 sqM); Anion Gap 5 mmol/L; Blood Urea Nitrogen 29 mg/dL (7-17); Calcium 8.5 mg/dL (8.4-10.2); Carbon Dioxide 31 mmol/L (22-30); Chloride 102 mmol/L (98-107); Glucose 111 mg/dL (74-99); Non-African American GFR(CKD) 22 (>60 ml/min/1.73 sqM); Potassium 3.5 mmol/L (3.5-5.1); Sodium 138 mmol/L (137-145)
[2021-08-12 06:49] LABS: Glucose,Whole Blood 143 mg/dL (75-99)
[2021-08-12] MEDS: LEVOTHYROXINE 125 MCG TAB PO SCH (08:22)
[2021-08-12] MEDS: POTASSIUM CHLORIDE ER 20 MEQ TAB.ER PO SCH (08:22)
[2021-08-12] MEDS: FERROUS SULFATE 325 MG TAB PO SCH (08:22)
[2021-08-12] MEDS: hydrALAZINE HCL 50 MG TAB PO SCH ×2 (08:22→15:02)
[2021-08-12] MEDS: FUROSEMIDE 40 MG TAB PO SCH ×2 (08:22→15:02)
[2021-08-12] MEDS: amLODIPine 5 MG TAB PO SCH (08:22)
[2021-08-12] MEDS: INSULN ASP PRT/INSULIN ASPART 100 UNIT/ML 10 ML VIAL SQ SCH (08:22)
[2021-08-12] MEDS: GABAPENTIN 100 MG CAP PO SCH (08:22)
[2021-08-12] MEDS: APIXABAN 5 MG TAB PO SCH (08:22)
[2021-08-12] MEDS: carvediloL 12.5 MG TAB PO SCH (08:22)
[2021-08-12] MEDS: PIOGLITAZONE 15 MG TAB PO SCH (08:22)
[2021-08-12] MEDS: polyethylene glycoL 3350 17 GM POWD.PACK PO SCH (08:23)
[2021-08-12] MEDS: INSULIN ASPART (NovoLOG) 100 UNIT/ML VIAL SQ SCH ×2 (08:23→13:24)
[2021-08-12] MEDS ORDERED: VANCOMYCIN 1,500 MG in SODIUM CHLORIDE 0.9% 250 ML IVPB ONE (11:00)
[2021-08-12 11:45] LABS: Glucose,Whole Blood 185 mg/dL (75-99)
[2021-08-12 11:51] VITALS: RESP 18; TEMP 97.6
--- NOTE | 2021-08-12 13:43 | P.DS ---
Providers Date of admission: 08/08/21 16:03 Attending physician: Lanie Temple Consults: 08/07/21 13:24 Consult Physician Routine Consulting Provider: Dar Friedman Consult Reason/Comments: refractory pneumonia Do you want consulting provider notified?: Yes Primary care physician: Dontae Dawn Patient Condition at Discharge: Fair Plan - Discharge Summary New Discharge Prescriptions: New Amoxicillin/Potassium Clav [Augmentin 875-125 Tablet] 1 tab PO Q12HR 7 Days #2 tab polyethylene glycoL 3350 [Miralax] 17 gm PO DAILY packet amLODIPine [Norvasc] 10 mg PO HS #30 tab Melatonin 10 mg PO HS tablet Continue Atorvastatin [Lipitor] 80 mg PO HS Apixaban [Eliquis] 5 mg PO BID #60 tab lisinopriL 40 mg PO DAILY hydrALAZINE HCL [Apresoline] 100 mg PO TID Levothyroxine Sodium [Synthroid] 125 mcg PO DAILY #30 tab Insulin NPL/Insulin Lispro [humaLOG MIX 75-25 VIAL] 20 unit SQ W/SUPPER Insulin NPL/Insulin Lispro [humaLOG MIX 75-25 VIAL] 30 unit SQ W/BRKFST Albuterol Sulfate [Proair Hfa] 2 puff INHALATION RT-Q6H PRN PRN Reason: Dyspnea Ergocalciferol [Vitamin D2 (DRISDOL)] 50,000 unit PO TU Pioglitazone [Actos] 15 mg PO DAILY Acetaminophen [Tylenol Extra Strength] 500 - 1,000 mg PO Q8H PRN PRN Reason: Pain Ferrous Sulfate [Feosol] 325 mg PO DAILY Gabapentin [Neurontin] 100 mg PO DAILY amLODIPine [Norvasc] 5 mg PO DAILY #30 tab carvediloL [Coreg*] 12.5 mg PO BID-W/MEALS #60 tab Baclofen [Lioresal] 5 mg PO TID PRN #90 tab PRN Reason: Muscle Spasm Furosemide [Lasix] 40 mg PO BID@0900,1600 #60 tab Potassium Chloride ER [K-Dur 20] 20 meq PO W/BRKFST Discontinued Cefuroxime [Ceftin] 250 mg PO BID 7 Days #14 tab Discharge Medication List Atorvastatin [Lipitor] 80 mg PO HS 06/30/18 [History] Apixaban [Eliquis] 5 mg PO BID #60 tab 11/15/18 [Rx] hydrALAZINE HCL [Apresoline] 100 mg PO TID 01/06/19 [History] lisinopriL 40 mg PO DAILY 01/06/19 [History] Levothyroxine Sodium [Synthroid] 125 mcg PO DAILY #30 tab 01/08/19 [Rx] Insulin NPL/Insulin Lispro [humaLOG MIX 75-25 VIAL] 20 unit SQ W/SUPPER 05/30/20 [History] Insulin NPL/Insulin Lispro [humaLOG MIX 75-25 VIAL] 30 unit SQ W/BRKFST 06/05/20 [History] Albuterol Sulfate [Proair Hfa] 2 puff INHALATION RT-Q6H PRN 07/19/20 [History] Ergocalciferol [Vitamin D2 (DRISDOL)] 50,000 unit PO TU 07/19/20 [History] Pioglitazone [Actos] 15 mg PO DAILY 09/13/20 [History] Acetaminophen [Tylenol Extra Strength] 500 - 1,000 mg PO Q8H PRN 10/14/20 [History] Ferrous Sulfate [Feosol] 325 mg PO DAILY 04/01/21 [History] Gabapentin [Neurontin] 100 mg PO DAILY 04/01/21 [History] amLODIPine [Norvasc] 5 mg PO DAILY #30 tab 04/05/21 [Rx] Furosemide [Lasix] 40 mg PO BID@0900,1600 #60 tab 05/11/21 [Rx] carvediloL [Coreg*] 12.5 mg PO BID-W/MEALS #60 tab 05/11/21 [Rx] Baclofen [Lioresal] 5 mg PO TID PRN #90 tab 07/31/21 [Rx] Potassium Chloride ER [K-Dur 20] 20 meq PO W/BRKFST 08/06/21 [History] Amoxicillin/Potassium Clav [Augmentin 875-125 Tablet] 1 tab PO Q12HR 7 Days #2 tab 08/12/21 [Rx] Melatonin 10 mg PO HS tablet 08/12/21 [Rx] amLODIPine [Norvasc] 10 mg PO HS #30 tab 08/12/21 [Rx] polyethylene glycoL 3350 [Miralax] 17 gm PO DAILY packet 08/12/21 [Rx] Follow up Appointment(s)/Referral(s): [facility], [NON-STAFF] - As Needed Dontae Dawn MD [Primary Care Provider] - 1-2 days Dar Friedman MD [STAFF PHYSICIAN] - 1 Week Discharge Disposition: HOME SELF-CARE
[2021-08-12 15:07] VITALS: BP 144/80; PULSE 60
--- NOTE | 2021-08-17 09:22 | CDI ---
Documentation Clarification Form Date: 08/17/2021 09:14:45 AM From: Kulwinder Dixon Phone: Admit Date: 08/08/2021 04:03:00 PM Patient Name: Neva Pool Visit Number: [id number] Discharge Date: 08/12/2021 03:46:00 PM ATTENTION: The Clinical Documentation Specialists (CDI) and [facility] Coding Staff appreciate your assistance in clarifying documentation. Please respond to the clarification below the line at the bottom and electronically sign. The CDI & [facility] Coding staff will review the response and follow-up if needed. Please note: Queries are made part of the Legal Health Record. If you have any questions, please contact the author of this message via ITS. Dr. Lanie Temple Possible gram negative pneumonia is documented in the H+P, but is not noted in subsequent documentation. Clarification is requested. Subsequent documentation just says pneumonia unspecified. This would affect the DRG. History/Risk Factors: PNA Clinical Indicators: CXR. Sputum gram negative and gram positive baccili. Treatment: IV abx Please clarify if the [insert diagnosis] is: [ ] Gram negative pneumonia confirmed, remains under treatment [ ] gram negative pneumonia confirmed, resolved [ ] gram negative pneumonia ruled out [ xx ] Other condition, please specify __complex pneumonia/poss loculated abscess____ [ ] Unable to determine [ ] unspecified pneumonia only MTDD
== END 2021-08-12 15:46 | disposition home or self-care (01) | DRG 177 ==
LOC: EC 15:48 → 6NMEDSUR 20:33 → 5NMEDONC 21:25 → OBSVTOIN 08-08 16:03
PROVIDERS: ADMIT Family Medicine; ATTEND Family Medicine
PROC: 0W993ZX Drainage of Right Pleural Cavity, Percutaneous Approach, Diagnostic (ICD-10-PCS; principal; 2021-08-10)
DX: J85.1 Abscess of lung with pneumonia (principal); J96.21 Acute and chronic respiratory failure with hypoxia; I13.0 Hypertensive heart and chronic kidney disease with heart failure and stage 1 through stage 4 chronic kidney disease, or unspecified chronic kidney disease; J44.0 Chronic obstructive pulmonary disease with (acute) lower respiratory infection; I50.32 Chronic diastolic (congestive) heart failure; D64.9 Anemia, unspecified; E03.9 Hypothyroidism, unspecified; E11.65 Type 2 diabetes mellitus with hyperglycemia; E11.40 Type 2 diabetes mellitus with diabetic neuropathy, unspecified; E11.22 Type 2 diabetes mellitus with diabetic chronic kidney disease; E66.01 Morbid (severe) obesity due to excess calories; E78.5 Hyperlipidemia, unspecified; F41.9 Anxiety disorder, unspecified; G47.33 Obstructive sleep apnea (adult) (pediatric); G89.29 Other chronic pain; I08.0 Rheumatic disorders of both mitral and aortic valves; I25.10 Atherosclerotic heart disease of native coronary artery without angina pectoris; I27.20 Pulmonary hypertension, unspecified; I48.0 Paroxysmal atrial fibrillation; N18.30 Chronic kidney disease, stage 3 unspecified; M16.11 Unilateral primary osteoarthritis, right hip; Y95 Nosocomial condition; Z77.22 Contact with and (suspected) exposure to environmental tobacco smoke (acute) (chronic); Z20.822 Contact with and (suspected) exposure to COVID-19; Z79.01 Long term (current) use of anticoagulants; Z79.4 Long term (current) use of insulin; Z79.890 Hormone replacement therapy; Z79.899 Other long term (current) drug therapy; Z80.0 Family history of malignant neoplasm of digestive organs; Z80.6 Family history of leukemia; Z82.49 Family history of ischemic heart disease and other diseases of the circulatory system; Z85.828 Personal history of other malignant neoplasm of skin; Z86.73 Personal history of transient ischemic attack (TIA), and cerebral infarction without residual deficits; Z87.01 Personal history of pneumonia (recurrent); Z91.19 Patient's noncompliance with other medical treatment and regimen; Z96.1 Presence of intraocular lens; Z88.1 Allergy status to other antibiotic agents; Z88.8 Allergy status to other drugs, medicaments and biological substances; R55 Syncope and collapse; Z99.81 Dependence on supplemental oxygen
CPT/HCPCS: 32555; 36415; 70450; 71045; 71046; 71250; 76604; 80048; 80053; 80202; 81001; 82140; 82150; 82550; 82553; 82565; 82945; 83605; 83615; 83880; 84145; 84157; 84484; 85025; 85027; 85379; 85610; 87040; 87070; 87075; 87102; 87116; 87205; 87206; 87449; 87635; 88108; 88305; 89050; 93005; 94640; 96360; 96361; 99285

== ENCOUNTER 2021-08-30 11:03 | Emergency (ER) | payer MEDICARE, OTHER ==
[2021-08-30] MEDS ORDERED: ONDANSETRON 4 MG/2 ML VIAL IVP STA (12:05)
--- NOTE | 2021-08-30 12:16 | ED ---
General Adult HPI - General Chief complaint: Headache Stated complaint: Headache Time Seen by Provider: 08/30/21 11:12 Source: patient, EMS, RN notes reviewed Mode of arrival: EMS Limitations: no limitations - History of Present Illness Initial comments: 80-year-old female presents to the emergency department via EMS from home for evaluation of generalized weakness and pounding headache. Patient states she has had a poor appetite, nausea, and congested cough that has worsened the past 2 days. States she thought her headache was related to dehydration so she drank a lot of water throughout the day yesterday, then developed diarrhea. Patient reports recent hospitalization for pneumonia and states she is still occasionally short of breath. Patient denies fever, chills, chest pain, abdominal pain, vomiting, dysuria, and hematuria. - Related Data Home Medications Medication Instructions Recorded Confirmed Atorvastatin [Lipitor] 80 mg PO HS 06/30/18 08/30/21 hydrALAZINE HCL [Apresoline] 100 mg PO TID 01/06/19 08/30/21 lisinopriL 40 mg PO DAILY 01/06/19 08/30/21 Insulin NPL/Insulin Lispro 20 unit SQ W/SUPPER 05/30/20 08/30/21 [humaLOG MIX 75-25 VIAL] Insulin NPL/Insulin Lispro 30 unit SQ W/BRKFST 06/05/20 08/30/21 [humaLOG MIX 75-25 VIAL] Albuterol Sulfate [Proair Hfa] 2 puff INHALATION RT-Q6H PRN 07/19/20 08/30/21 Ergocalciferol [Vitamin D2 50,000 unit PO TU 07/19/20 08/30/21 (DRISDOL)] Pioglitazone [Actos] 15 mg PO DAILY 09/13/20 08/30/21 Acetaminophen [Tylenol Extra 500 - 1,000 mg PO Q8H PRN 10/14/20 08/30/21 Strength] Ferrous Sulfate [Feosol] 325 mg PO DAILY 04/01/21 08/30/21 Gabapentin [Neurontin] 100 mg PO DAILY 04/01/21 08/30/21 Potassium Chloride ER [K-Dur 20] 20 meq PO W/BRKFST 08/06/21 08/30/21 Furosemide [Lasix] 20 mg PO DAILY 08/30/21 08/30/21 Sertraline [Zoloft] 25 mg PO DAILY 08/30/21 08/30/21 Previous Rx's Medication Instructions Recorded Apixaban [Eliquis] 5 mg PO BID #60 tab 07/04/18 Levothyroxine Sodium [Synthroid] 125 mcg PO DAILY #30 tab 01/08/19 carvediloL [Coreg*] 12.5 mg PO BID-W/MEALS #60 tab 05/11/21 Baclofen [Lioresal] 5 mg PO TID PRN #90 tab 07/31/21 Melatonin 10 mg PO HS tablet 08/12/21 amLODIPine [Norvasc] 10 mg PO HS #30 tab 08/12/21 polyethylene glycoL 3350 [Miralax] 17 gm PO DAILY packet 08/12/21 Allergies Allergy/AdvReac Type Severity Reaction Status Date / Time azithromycin Allergy Rash/Hives Verified 08/30/21 12:06 [From Zithromax Z-Jeanmarie] methylprednisolone Allergy Rash/Hives Verified 08/30/21 12:06 [From Medrol] trimethoprim [From Bactrim] Allergy Rash/Hives Verified 08/30/21 12:06 hydrochlorothiazide AdvReac lost Verified 08/30/21 12:06 balance and fell sulfamethoxazole AdvReac Rash/Hives Verified 08/30/21 12:06 [From Bactrim] Review of Systems ROS Statement: Those systems with pertinent positive or pertinent negative responses have been documented in the HPI. ROS Other: All systems not noted in ROS Statement are negative. Past Medical History Past Medical History: Cancer, Pneumonia Additional Past Medical History / Comment(s): Stage III Kidney Disease, hx Pneumonia with Sepsis, no CPAP use, Vitamin D Deficiency, chronic low back pain, frequent constipation, hx skin cancer. History of Any Multi-Drug Resistant Organisms: None Reported Past Surgical History: Heart Catheterization Additional Past Surgical History / Comment(s): Cardiac caths , lap band placed/since removed, low back surgery, L carpal tunnel release X2, skin cancer removal, colonoscopies, bilateral cataract removals/lens implants. Past Anesthesia/Blood Transfusion Reactions: Previous Problems w/ Anesthesia Additional Past Anesthesia/Blood Transfusion Reaction / Comment(s): "Had too much anesthesia in 2007 for lap band removal, had to be bagged." Past Psychological History: No Psychological Hx Reported Smoking Status: Never smoker, Second hand smoke exposure Past Alcohol Use History: None Reported Past Drug Use History: None Reported - Past Family History Sister(s) Family Medical History: Myocardial Infarction ([place]) Brother(s) Family Medical History: Cancer Additional Family Medical History / Comment(s): Colon Cancer. Mother Family Medical History: Dementia Additional Family Medical History / Comment(s): Mother of dementia at the age of 89yrs. Father Family Medical History: Cancer Additional Family Medical History / Comment(s): Pt states her father was treated for a sinus infection but really had leukemia and of this at the age of 72 yrs. General Exam Limitations: no limitations (Well-developed, well-nourished female in no acute d istress. Initial temperature 98.2, pulse 74, respirations 16, blood pressure 148/62, pulse ox 98% on room air) General appearance: alert, in no apparent distress Eye exam: Present: normal appearance, PERRL, EOMI, conjunctival injection (left eye with mild conjunctival injection). Absent: scleral icterus, periorbital swelling ENT exam: Present: normal exam, normal oropharynx, mucous membranes moist Respiratory exam: Present: normal lung sounds bilaterally, other (congested, non-productive cough). Absent: respiratory distress, wheezes, rales, rhonchi, stridor Cardiovascular Exam: Present: regular rate, normal rhythm, normal heart sounds, systolic murmur GI/Abdominal exam: Present: soft, normal bowel sounds. Absent: distended, tenderness, guarding, rebound, rigid Neurological exam: Present: alert, oriented X3, CN II-XII intact Expanded Patient oriented to: Present: person, place, time Speech: Present: fluid speech Cranial nerves: EOM's Intact: Normal Motor strength exam: RUE: 5, LUE: 5, RLE: 5, LLE: 5 Eye Response: (4) open spontaneously Motor Response: (6) obeys commands Verbal Response: (5) oriented [place] Total: 15 Psychiatric exam: Present: anxious Skin exam: Present: warm, dry, intact Course Vital Signs 08/30/21 08/30/21 08/30/21 11:23 15:34 16:31 Temperature 98.2 F 98.0 F Pulse Rate 74 77 Respiratory 16 16 20 Rate Blood Pressure 148/62 159/86 O2 Sat by Pulse 98 96 Oximetry 08/30/21 20:42 Temperature 98.6 F Pulse Rate 78 Respiratory 20 Rate Blood Pressure 190/89 O2 Sat by Pulse 97 Oximetry - Reevaluation(s) Reevaluation #1: 08/30/21 14:15 Complains of persistent headache pounding headache. No neurological deficits. 08/30/21 16:15 Reports resolution of headache discomfort after medication administration. Did discuss with patient that she had had previous CTs of the brain due to complaint of headache, which she denied in her earlier work-up. Medical Decision Making - Medical Decision Making 80-year-old female with a history of recent hospitalization due to pneumonia presents to the emergency Department with complaints of headache, congested cough, poor appetite, and generalized weakness. Upon exam, patient appears to be feeling poorly but is in no acute distress. Vital signs are stable. Room air saturation is greater than 95%. Lungs sounds are clear to auscultation. No focal neurological deficits. Laboratory studies were obtained demonstrating patient's history of chronic renal disease. Of noteworthy finding is that patient did test positive for Covid. States she is vaccinated, but has not received her booster. She is uncertain of exposure, however was recently hospitalized and chest x-ray does show evidence of right lower lobe infiltrate with small effusion. CT of the brain shows no acute findings. Patient is a candidate for the monoclonal antibody infusion as she has stable vital signs and does not require oxygen. Risks and benefits were discussed, and patient is agreeable. Tolerated the infusion without any adverse side effect. Patient was given morphine for headache and Zofran for nausea. Able to tolerate oral intake without difficulty. States she is feeling improved, though prefers admission to discharge. Discussed return parameters and appropriate follow-up care. Patient verbalizes understanding. This patient's care was discussed with my attending Dr. Somers. - Lab Data Result diagrams: 08/30/21 12:48 08/30/21 12:48 Lab Results 08/30/21 08/30/21 08/30/21 Range/Units 12:36 12:48 12:48 WBC 8.2 (3.8-10.6) k/uL RBC 4.24 (3.80-5.40) m/uL Hgb 11.8 (11.4-16.0) gm/dL Hct 37.6 (34.0-46.0) % MCV 88.8 (80.0-100.0) fL MCH 27.8 (25.0-35.0) pg MCHC 31.3 (31.0-37.0) g/dL RDW 14.1 (11.5-15.5) % Plt Count 256 (150-450) k/uL MPV 7.7 Neutrophils % 68 % Lymphocytes % 15 % Monocytes % 10 % Eosinophils % 5 % Basophils % 0 % Neutrophils # 5.5 (1.3-7.7) k/uL Lymphocytes # 1.2 (1.0-4.8) k/uL Monocytes # 0.8 (0-1.0) k/uL Eosinophils # 0.4 (0-0.7) k/uL Basophils # 0.0 (0-0.2) k/uL PT (9.0-12.0) sec INR (<1.2) APTT (22.0-30.0) sec Sodium 140 (137-145) mmol/L Potassium 4.2 (3.5-5.1) mmol/L Chloride 107 (98-107) mmol/L Carbon Dioxide 24 (22-30) mmol/L Anion Gap 9 mmol/L BUN 19 H (7-17) mg/dL Creatinine 1.37 H (0.52-1.04) mg/dL Est GFR (CKD-EPI)AfAm 43 (>60 ml/min/1.73 sqM) Est GFR (CKD-EPI)NonAf 37 (>60 ml/min/1.73 sqM) Glucose 137 H (74-99) mg/dL Plasma Lactic Acid Terry (0.7-2.0) mmol/L Calcium 9.0 (8.4-10.2) mg/dL Total Bilirubin 0.6 (0.2-1.3) mg/dL AST 29 (14-36) U/L ALT 20 (4-34) U/L Alkaline Phosphatase 85 (38-126) U/L Troponin I (0.000-0.034) ng/mL Total Protein 6.7 (6.3-8.2) g/dL Albumin 3.7 (3.5-5.0) g/dL Urine Color Colorless Urine Appearance Clear (Clear) Urine pH 5.5 (5.0-8.0) Ur Specific [place] 1.003 (1.001-1.035) Urine Protein Trace H (Negative) Urine Glucose (UA) Negative (Negative) Urine Ketones Negative (Negative) Urine Blood Negative (Negative) Urine Nitrite Negative (Negative) Urine Bilirubin Negative (Negative) Urine Urobilinogen <2.0 (<2.0) mg/dL Ur Leukocyte Esterase Negative (Negative) Coronavirus (PCR) (Not Detectd) 08/30/21 08/30/21 08/30/21 Range/Units 12:48 12:48 14:30 WBC (3.8-10.6) k/uL RBC (3.80-5.40) m/uL Hgb (11.4-16.0) gm/dL Hct (34.0-46.0) % MCV (80.0-100.0) fL MCH (25.0-35.0) pg MCHC (31.0-37.0) g/dL RDW (11.5-15.5) % Plt Count (150-450) k/uL MPV Neutrophils % % Lymphocytes % % Monocytes % % Eosinophils % % Basophils % % Neutrophils # (1.3-7.7) k/uL Lymphocytes # (1.0-4.8) k/uL Monocytes # (0-1.0) k/uL Eosinophils # (0-0.7) k/uL Basophils # (0-0.2) k/uL PT (9.0-12.0) sec INR (<1.2) APTT (22.0-30.0) sec Sodium (137-145) mmol/L Potassium (3.5-5.1) mmol/L Chloride (98-107) mmol/L Carbon Dioxide (22-30) mmol/L Anion Gap mmol/L BUN (7-17) mg/dL Creatinine (0.52-1.04) mg/dL Est GFR (CKD-EPI)AfAm (>60 ml/min/1.73 sqM) Est GFR (CKD-EPI)NonAf (>60 ml/min/1.73 sqM) Glucose (74-99) mg/dL Plasma Lactic Acid Terry 1.3 (0.7-2.0) mmol/L Calcium (8.4-10.2) mg/dL Total Bilirubin (0.2-1.3) mg/dL AST (14-36) U/L ALT (4-34) U/L Alkaline Phosphatase (38-126) U/L Troponin I 0.019 (0.000-0.034) ng/mL Total Protein (6.3-8.2) g/dL Albumin (3.5-5.0) g/dL Urine Color Urine Appearance (Clear) Urine pH (5.0-8.0) Ur Specific [place] (1.001-1.035) Urine Protein (Negative) Urine Glucose (UA) (Negative) Urine Ketones (Negative) Urine Blood (Negative) Urine Nitrite (Negative) Urine Bilirubin (Negative) Urine Urobilinogen (<2.0) mg/dL Ur Leukocyte Esterase (Negative) Coronavirus (PCR) Detected A (Not Detectd) 08/30/21 Range/Units 14:56 WBC (3.8-10.6) k/uL RBC (3.80-5.40) m/uL Hgb (11.4-16.0) gm/dL Hct (34.0-46.0) % MCV (80.0-100.0) fL MCH (25.0-35.0) pg MCHC (31.0-37.0) g/dL RDW (11.5-15.5) % Plt Count (150-450) k/uL MPV Neutrophils % % Lymphocytes % % Monocytes % % Eosinophils % % Basophils % % Neutrophils # (1.3-7.7) k/uL Lymphocytes # (1.0-4.8) k/uL Monocytes # (0-1.0) k/uL Eosinophils # (0-0.7) k/uL Basophils # (0-0.2) k/uL PT 11.3 (9.0-12.0) sec INR 1.1 (<1.2) APTT 27.7 (22.0-30.0) sec Sodium (137-145) mmol/L Potassium (3.5-5.1) mmol/L Chloride (98-107) mmol/L Carbon Dioxide (22-30) mmol/L Anion Gap mmol/L BUN (7-17) mg/dL Creatinine (0.52-1.04) mg/dL Est GFR (CKD-EPI)AfAm (>60 ml/min/1.73 sqM) Est GFR (CKD-EPI)NonAf (>60 ml/min/1.73 sqM) Glucose (74-99) mg/dL Plasma Lactic Acid Terry (0.7-2.0) mmol/L Calcium (8.4-10.2) mg/dL Total Bilirubin (0.2-1.3) mg/dL AST (14-36) U/L ALT (4-34) U/L Alkaline Phosphatase (38-126) U/L Troponin I (0.000-0.034) ng/mL Total Protein (6.3-8.2) g/dL Albumin (3.5-5.0) g/dL Urine Color Urine Appearance (Clear) Urine pH (5.0-8.0) Ur Specific [place] (1.001-1.035) Urine Protein (Negative) Urine Glucose (UA) (Negative) Urine Ketones (Negative) Urine Blood (Negative) Urine Nitrite (Negative) Urine Bilirubin (Negative) Urine Urobilinogen (<2.0) mg/dL Ur Leukocyte Esterase (Negative) Coronavirus (PCR) (Not Detectd) - EKG Data EKG shows normal: sinus rhythm Rate: normal EKG Comments: EKG was obtained at 1254 and shows normal sinus rhythm with left axis deviation, incomplete right bundle branch block, and septal infarct. Ventricular rate 64, MO intervals 134, QRS duration 110, QT/QTc 456/470. Interpretation abnormal ECG. - Radiology Data Radiology results: report reviewed, image reviewed Two-view chest x-ray was obtained. Report was reviewed in its entirety. Imp ression per Dr. Gallegos is right lower lobe infiltrate and small effusion. Disposition Clinical Impression: COVID-19, Chronic renal disease Disposition: HOME SELF-CARE Condition: Stable Additional Instructions: You may take Tylenol or Motrin for headache or fever. Continue taking your regular home medications. You should isolate for ten days from symptom onset. Maintain mobility. Follow up with your PCP via video visit or telephone. Return to the Emergency Department with any new, worsening, or concerning symptoms. Is patient prescribed a controlled substance at d/c from ED?: No Referrals: Dontae Dawn MD [Primary Care Provider] - 1-2 days
[2021-08-30 13:08] LABS: Appearance,Urine Clear (Clear); Bilirubin,Urine Negative (Negative); Blood,Urine Negative (Negative); Color,Urine Colorless; Glucose,Urine (UA) Negative (Negative); Ketones,Urine Negative (Negative); Leukocyte Esterase,Urine Negative (Negative); Nitrite,Urine Negative (Negative); PH, Urine 5.5 (5.0-8.0); Protein,Urine Trace (Negative); Specific Gravity,Urine 1.003 (1.001-1.035); Urobilinogen,Urine <2.0 mg/dL (<2.0)
[2021-08-30 13:11] LABS: Basophils % (A) 0 %; Eosinophils # (A) 0.4 k/uL (0-0.7); Eosinophils % (A) 5 %; HCT 37.6 % (34.0-46.0); HGB 11.8 gm/dL (11.4-16.0); Lymphocytes # (A) 1.2 k/uL (1.0-4.8); Lymphocytes % (A) 15 %; MCH 27.8 pg (25.0-35.0); MCHC 31.3 g/dL (31.0-37.0); MCV 88.8 fL (80.0-100.0); Mean Platelet Volume 7.7; Monocytes # (A) 0.8 k/uL (0-1.0); Monocytes % (A) 10 %; Neutrophils # (A) 5.5 k/uL (1.3-7.7); Neutrophils % (A) 68 %; Platelet Count 256 k/uL (150-450); RBC 4.24 m/uL (3.80-5.40); RDW 14.1 % (11.5-15.5); WBC 8.2 k/uL (3.8-10.6)
[2021-08-30 13:25] LABS: Albumin 3.7 g/dL (3.5-5.0); Potassium 4.2 mmol/L (3.5-5.1); Total Bilirubin 0.6 mg/dL (0.2-1.3); Total Protein 6.7 g/dL (6.3-8.2)
--- NOTE | 2021-08-30 13:51 | XR ---
EXAMINATION TYPE: XR chest 2V DATE OF EXAM: 08/30/2021 COMPARISON: 08/10/2021 TECHNIQUE: PA and lateral views submitted. HISTORY: Weakness FINDINGS: There is right lower lobe infiltrate and small effusion. Heart is enlarged and atherosclerotic change aorta and prominence the pulmonary artery suggests pulmo nary arterial hypertension. Biapical pleural thickening. Sclerotic density right proximal humerus lik rhonda related to bone infarct or calcified lymph nodes in the left axilla. Coarsened interstitium stabl e. IMPRESSION: 1. Right lower lobe infiltrate and small effusion.
[2021-08-30] MEDS ORDERED: MORPHINE SULFATE 2 MG/ML SYRINGE IVP ONE (14:24)
--- NOTE | 2021-08-30 15:40 | CT ---
EXAMINATION TYPE: CT brain wo con DATE OF EXAM: 08/30/2021 COMPARISON: 08/06/2021 HISTORY: 80-year-old female headache TECHNIQUE: Examination was done in axial plane without intravenous contrast. Coronal and sagittal r econstructions performed. CT DLP: 1100.4 mGycm Automated exposure control for dose reduction was used. FINDINGS: There is no evidence of acute intracranial hemorrhage, acute ischemic changes, mass, mass-effect, or extra-axial fluid collection. There is no effacement of cerebral sulci or basal subarachnoid cister ns. There is no hydrocephalus. There is no midline shift. Rubi-white matter distinction is preserv ed. Old lacunar infarcts in the bilateral basal ganglia. Faint benign basal ganglionic calcifications on the right are unchanged. Mild patchy white matter hypodensities in both cerebral hemispheres. Old infarct left cerebellar tracy sphere, unchanged. Scattered intracranial fat along the falx, unchanged. Trace mucosal thickening. Mastoid air cells are well pneumatized. Visualized orbits and globes appear intact. IMPRESSION: Mild burden of chronic small vessel ischemic disease. 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 O ld infarct left cerebellar hemisphere. No acute intracranial abnormality seen.
[2021-08-30 15:46] LABS: INR 1.1 (<1.2); Partial Thromboplastin Time 27.7 sec (22.0-30.0); Prothrombin Time 11.3 sec (9.0-12.0)
[2021-08-30 16:32] VITALS: RESP 20
[2021-08-30] MEDS ORDERED: SODIUM CHLORIDE 0.9% 50 ML IVPB ONE (17:15)
[2021-08-30] MEDS ORDERED: CASIRIVIMAB (REGN10933) (EUA) 600 MG, IMDEVIMAB (REGN10987) (EUA) 600 MG in SODIUM CHLO... IVPB ONE (17:30)
[2021-08-30 20:46] VITALS: BP 190/89; PULSE 78; TEMP 98.6
== END 2021-08-30 20:42 | disposition home or self-care (01) ==
LOC: EC 11:03
DX: U07.1 COVID-19 (principal); N18.30 Chronic kidney disease, stage 3 unspecified; Z79.4 Long term (current) use of insulin; Z79.01 Long term (current) use of anticoagulants; Z88.1 Allergy status to other antibiotic agents; Z88.2 Allergy status to sulfonamides; Z77.22 Contact with and (suspected) exposure to environmental tobacco smoke (acute) (chronic)
CPT/HCPCS: 99285; 96374; 96375; 36415; 93005; 80053; 83605; 84484; 85025; 85610; 85730; 81003; 87635; 71046; 70450; J2405; J2270; Q0244

== ENCOUNTER 2021-09-02 15:06 | Observation (INO) | payer MEDICARE, OTHER ==
[2021-09-02] MEDS ORDERED: SODIUM CHLORIDE 0.9% 1,000 ML IV STA ×2 (15:19→16:35)
[2021-09-02] MEDS ORDERED: KETOROLAC 15 MG/ML 1 ML VIAL IVP STA (15:20)
[2021-09-02 15:39] LABS: Albumin 3.9 g/dL (3.5-5.0); Calcium 8.9 mg/dL (8.4-10.2); HCT 39.6 % (34.0-46.0); HGB 11.9 gm/dL (11.4-16.0); Hypochromasia Slight; MCH 27.3 pg (25.0-35.0); MCV 90.9 fL (80.0-100.0); Magnesium 1.6 mg/dL (1.6-2.3); Mean Platelet Volume 7.5; Platelet Count 291 k/uL (150-450); Potassium 4.2 mmol/L (3.5-5.1); RBC 4.35 m/uL (3.80-5.40); Total Bilirubin 0.6 mg/dL (0.2-1.3); Total Protein 6.8 g/dL (6.3-8.2); WBC 6.8 k/uL (3.8-10.6)
[2021-09-02 15:41] LABS: INR 1.1 (<1.2); Partial Thromboplastin Time 26.7 sec (22.0-30.0); Prothrombin Time 11.6 sec (9.0-12.0)
--- NOTE | 2021-09-02 16:01 | ED ---
General Adult HPI - General Chief complaint: Shortness of Breath Stated complaint: Covid + Source: patient, EMS, RN notes reviewed, old records reviewed Mode of arrival: EMS - History of Present Illness Initial comments: Patient is a 80-year-old female with past medical history remarkable for CK D, A. fib, hypertension who presents emergency Department complaining of worsening shortness of breath. Patient was diagnosed with COVID-19 earlier this week and received multiple antibiotic therapy. She states that at home she is been unable to tolerate eating or drinking due to no appetite, and lost of taste. The family she lives with is also Covid positive. She states it is difficult to take care of each other at home. Patient was vaccinated for COVID-19 but did not receive the booster. Endorses upper respiratory symptoms. Denies any nausea, vomiting, diarrhea. Denies any chest pain. Nurses mild nonproductive cough. Patient is on Eliquis for atrial fibrillation. She is not missed any d osing. His no other acute complaint at this time. Primary complaint is diffuse weakness and fatigue not feeling any better. Believes she may be dehydrated. - Related Data Home Medications Medication Instructions Recorded Confirmed Atorvastatin [Lipitor] 80 mg PO HS 06/30/18 08/30/21 hydrALAZINE HCL [Apresoline] 100 mg PO TID 01/06/19 08/30/21 lisinopriL 40 mg PO DAILY 01/06/19 08/30/21 Insulin NPL/Insulin Lispro 20 unit SQ W/SUPPER 05/30/20 08/30/21 [humaLOG MIX 75-25 VIAL] Insulin NPL/Insulin Lispro 30 unit SQ W/BRKFST 06/05/20 08/30/21 [humaLOG MIX 75-25 VIAL] Albuterol Sulfate [Proair Hfa] 2 puff INHALATION RT-Q6H PRN 07/19/20 08/30/21 Ergocalciferol [Vitamin D2 50,000 unit PO TU 07/19/20 08/30/21 (DRISDOL)] Pioglitazone [Actos] 15 mg PO DAILY 09/13/20 08/30/21 Acetaminophen [Tylenol Extra 500 - 1,000 mg PO Q8H PRN 10/14/20 08/30/21 Strength] Ferrous Sulfate [Feosol] 325 mg PO DAILY 04/01/21 08/30/21 Gabapentin [Neurontin] 100 mg PO DAILY 04/01/21 08/30/21 Potassium Chloride ER [K-Dur 20] 20 meq PO W/BRKFST 08/06/21 08/30/21 Furosemide [Lasix] 20 mg PO DAILY 08/30/21 08/30/21 Sertraline [Zoloft] 25 mg PO DAILY 08/30/21 08/30/21 Previous Rx's Medication Instructions Recorded Apixaban [Eliquis] 5 mg PO BID #60 tab 07/04/18 Levothyroxine Sodium [Synthroid] 125 mcg PO DAILY #30 tab 01/08/19 carvediloL [Coreg*] 12.5 mg PO BID-W/MEALS #60 tab 05/11/21 Baclofen [Lioresal] 5 mg PO TID PRN #90 tab 07/31/21 Melatonin 10 mg PO HS tablet 08/12/21 amLODIPine [Norvasc] 10 mg PO HS #30 tab 08/12/21 polyethylene glycoL 3350 [Miralax] 17 gm PO DAILY packet 08/12/21 Allergies Allergy/AdvReac Type Severity Reaction Status Date / Time azithromycin Allergy Rash/Hives Verified 09/02/21 17:29 [From Zithromax Z-Jeanmarie] methylprednisolone Allergy Rash/Hives Verified 09/02/21 17:29 [From Medrol] trimethoprim [From Bactrim] Allergy Rash/Hives Verified 09/02/21 17:29 hydrochlorothiazide AdvReac lost Verified 09/02/21 17:29 balance and fell sulfamethoxazole AdvReac Rash/Hives Verified 09/02/21 17:29 [From Bactrim] Review of Systems ROS Statement: Those systems with pertinent positive or pertinent negative responses have been documented in the HPI. Review of Systems: CONST: Endorses fatigue EYES: Denies blurry vision ENT: Endorses nasal congestion C/V: Denies Chest pain RESP: Denies shortness of breath GI: Denies abdominal pain : Denies dysuria SKIN: Denies rash. MSK: Denies joint pain. NEURO: Endorses headache, mild tension-like ROS Other: All systems not noted in ROS Statement are negative. Past Medical History Past Medical History: Cancer, Pneumonia Additional Past Medical History / Comment(s): Stage III Kidney Disease, hx Pneumonia with Sepsis, no CPAP use, Vitamin D Deficiency, chronic low back pain, frequent constipation, hx skin cancer. History of Any Multi-Drug Resistant Organisms: None Reported Past Surgical History: Heart Catheterization Additional Past Surgical History / Comment(s): Cardiac caths , lap band placed/since removed, low back surgery, L carpal tunnel release X2, skin cancer removal, colonoscopies, bilateral cataract removals/lens implants. Past Anesthesia/Blood Transfusion Reactions: Previous Problems w/ Anesthesia Additional Past Anesthesia/Blood Transfusion Reaction / Comment(s): "Had too much anesthesia in 2007 for lap band removal, had to be bagged." Past Psychological History: No Psychological Hx Reported Smoking Status: Never smoker, Second hand smoke exposure Past Alcohol Use History: None Reported Past Drug Use History: None Reported - Past Family History Sister(s) Family Medical History: Myocardial Infarction ([place]) Brother(s) Family Medical History: Cancer Additional Family Medical History / Comment(s): Colon Cancer. Mother Family Medical History: Dementia Additional Family Medical History / Comment(s): Mother of dementia at the age of 89yrs. Father Family Medical History: Cancer Additional Family Medical History / Comment(s): Pt states her father was treated for a sinus infection but really had leukemia and of this at the age of 72 yrs. General Exam - General Exam Comments Initial Comments: General: Appears in mild distress secondary to illness. Appears fatigued. HEAD: Normal with no signs of head trauma. EYES: PERRLA, EOMI, conjunctiva normal, no discharge. ENT: Hearing grossly intact, normal oropharynx. Mildly dry oral mucous membranes. RESPIRATORY: Clear breath sounds bilaterally. No wheezes, rales, or rhonchi. No hypoxia. No increased work of breathing. No hypoxia an ambulatory pulse ox. C/V: Regular rate and rhythm. S1 and S2 auscultated, no edema, peripheral pulses 2+ and intact throughout ABD: Abd is soft, nontender, nondistended EXT: Normal range of motion, no obvious deformity SKIN: No rashes or lesions observed on exposed skin. NEURO: Alert and oriented 4. No focal deficits. Course Vital Signs 09/02/21 09/02/21 09/02/21 15:08 15:14 17:36 Temperature 97.5 F L 97.7 F Pulse Rate 92 80 Respiratory 18 20 18 Rate Blood Pressure 121/68 131/71 O2 Sat by Pulse 96 96 Oximetry Medical Decision Making - Medical Decision Making Based on the patient's presentation and physical exam, I believe she is likely experiencing symptoms secondary to her COVID-19 infection. However we will obtain basic laboratory studies, she does appear mildly dehydrated. She was in agreement this plan. Repeat EKG and chest x-rays will also be obtained. She'll be given a 1 L fluid bolus as well as IV Toradol for pain control. Patient was in agreement this plan. She is not hypoxic on a mandatory pulse ox normal on pulse ox at rest. Vital signs are otherwise within acceptable limits. Laboratory studies are remarkable for an JOCY on CK D, as patient's creatinine is elevated to 1.86. Since her baseline is typically around 1.3. Troponin is within normal limits. Remainder the labs are unremarkable. Patient's EKG showed no signs of acute ischemia. Chest x-ray revealed patchy basilar opacities likely secondary to COVID-19 infection. Remainder the left. Reevaluation, patient feels somewhat improved, including her headache. I discussed the results of laboratory studies and imaging with her. Patient already receiving monoclonal antibodies earlier this week. I did recommend that we admitted to the hospital for dehydration and JOCY at this time. She was in agreement this plan. I spoke with the admitting physician, Dr. Temple, who was in agreement. Patient was therefore admitted to observation in stable condition. - Lab Data Result diagrams: 09/02/21 15:23 09/02/21 15:23 Lab Results 09/02/21 09/02/21 09/02/21 Range/Units 15:23 15:23 15:23 WBC 6.8 (3.8-10.6) k/uL RBC 4.35 (3.80-5.40) m/uL Hgb 11.9 (11.4-16.0) gm/dL Hct 39.6 (34.0-46.0) % MCV 90.9 (80.0-100.0) fL MCH 27.3 (25.0-35.0) pg MCHC 30.0 L (31.0-37.0) g/dL RDW 15.0 (11.5-15.5) % Plt Count 291 (150-450) k/uL MPV 7.5 Neutrophils % (Manual) 64 % Lymphocytes % (Manual) 20 % Monocytes % (Manual) 11 % Eosinophils % (Manual) 5 % Neutrophils # (Manual) 4.35 (1.3-7.7) k/uL Lymphocytes # (Manual) 1.36 (1.0-4.8) k/uL Monocytes # (Manual) 0.75 (0-1.0) k/uL Eosinophils # (Manual) 0.34 (0-0.7) k/uL Nucleated RBCs 0 (0-0) /100 WBC Manual Slide Review Performed Reactive Lymphocytes Present Hypochromasia Slight PT 11.6 (9.0-12.0) sec INR 1.1 (<1.2) APTT 26.7 (22.0-30.0) sec Sodium 138 (137-145) mmol/L Potassium 4.2 (3.5-5.1) mmol/L Chloride 104 (98-107) mmol/L Carbon Dioxide 21 L (22-30) mmol/L Anion Gap 13 mmol/L BUN 28 H (7-17) mg/dL Creatinine 1.86 H (0.52-1.04) mg/dL Est GFR (CKD-EPI)AfAm 29 (>60 ml/min/1.73 sqM) Est GFR (CKD-EPI)NonAf 25 (>60 ml/min/1.73 sqM) Glucose 262 H (74-99) mg/dL Calcium 8.9 (8.4-10.2) mg/dL Magnesium 1.6 (1.6-2.3) mg/dL Total Bilirubin 0.6 (0.2-1.3) mg/dL AST 31 (14-36) U/L ALT 21 (4-34) U/L Alkaline Phosphatase 93 (38-126) U/L Troponin I (0.000-0.034) ng/mL Total Protein 6.8 (6.3-8.2) g/dL Albumin 3.9 (3.5-5.0) g/dL 09/02/21 Range/Units 15:23 WBC (3.8-10.6) k/uL RBC (3.80-5.40) m/uL Hgb (11.4-16.0) gm/dL Hct (34.0-46.0) % MCV (80.0-100.0) fL MCH (25.0-35.0) pg MCHC (31.0-37.0) g/dL RDW (11.5-15.5) % Plt Count (150-450) k/uL MPV Neutrophils % (Manual) % Lymphocytes % (Manual) % Monocytes % (Manual) % Eosinophils % (Manual) % Neutrophils # (Manual) (1.3-7.7) k/uL Lymphocytes # (Manual) (1.0-4.8) k/uL Monocytes # (Manual) (0-1.0) k/uL Eosinophils # (Manual) (0-0.7) k/uL Nucleated RBCs (0-0) /100 WBC Manual Slide Review Reactive Lymphocytes Hypochromasia PT (9.0-12.0) sec INR (<1.2) APTT (22.0-30.0) sec Sodium (137-145) mmol/L Potassium (3.5-5.1) mmol/L Chloride (98-107) mmol/L Carbon Dioxide (22-30) mmol/L Anion Gap mmol/L BUN (7-17) mg/dL Creatinine (0.52-1.04) mg/dL Est GFR (CKD-EPI)AfAm (>60 ml/min/1.73 sqM) Est GFR (CKD-EPI)NonAf (>60 ml/min/1.73 sqM) Glucose (74-99) mg/dL Calcium (8.4-10.2) mg/dL Magnesium (1.6-2.3) mg/dL Total Bilirubin (0.2-1.3) mg/dL AST (14-36) U/L ALT (4-34) U/L Alkaline Phosphatase (38-126) U/L Troponin I 0.019 (0.000-0.034) ng/mL Total Protein (6.3-8.2) g/dL Albumin (3.5-5.0) g/dL - EKG Data -: EKG Interpreted by Me EKG Comments: 12-lead Electrocardiogram Interpretation Note EKG was reviewed and interpreted by myself. 12-lead ECG performed at 1618 is interpreted by me as revealing normal sinus rhythm at a rate of 78 beats per minute. Left axis deviation. MI intervals 136 ms, QRS is 106 ms, QTc is 497 ms.. There were no ST or T wave abnormalities to suggest myocardial ischemia or injury. R wave progression across the precordium was satisfactory. By my interpretation this EKG is non-diagnostic for acute ischemia. Lead V5 shows a great deal of baseline artifact that nursing staff was unable to eliminate. Disposition Clinical Impression: Acute kidney injury superimposed on CKD, Dehydration, COVID-19 virus infection Disposition: ADMITTED IP TO THIS HOSP Condition: Stable Referrals: Dontae Dawn MD [Primary Care Provider] - 1-2 days
--- NOTE | 2021-09-02 16:17 | XR ---
EXAMINATION TYPE: XR chest 1V portable DATE OF EXAM: 09/02/2021 Comparison: 08/30/2021 Clinical History: 80-year-old female cough Findings: Heart is mildly enlarged. Interstitial prominence in the lower lungs. Mild patchy right basilar opaci ty. No pleural effusion. The previous small right effusion has resolved. Impression: 1. Mild interstitial density. Some patchy right basilar opacity. Unable to exclude subtle underlying COVID infiltrates. 2. Similar mild cardiomegaly.
[2021-09-02 16:24] LABS: Nucleated Red Blood Cells 0 /100 WBC (0-0)
[2021-09-02 16:26] LABS: Eosinophils # (M) 0.34 k/uL (0-0.7); Lymphocytes # (M) 1.36 k/uL (1.0-4.8); Monocytes # (M) 0.75 k/uL (0-1.0); Neutrophils # (M) 4.35 k/uL (1.3-7.7); Neutrophils % (M) 64 %; Reactive Lymphocytes Present; Total Cells Counted 100
[2021-09-02] MEDS ORDERED: ONDANSETRON 4 MG/2 ML VIAL IVP PRN (16:36)
[2021-09-02] MEDS ORDERED: NALOXONE 0.4 MG/ML 1 ML VIAL IV PRN (16:36)
[2021-09-02 17:51] LABS: Glucose,Whole Blood 211 mg/dL (75-99)
[2021-09-02] MEDS ORDERED: ALBUTEROL HFA INHALER INHALATION PRN (19:14)
[2021-09-02 21:06] LABS: Glucose,Whole Blood 309 mg/dL (75-99)
[2021-09-02] MEDS: amLODIPine 10 MG TAB PO SCH (21:15)
[2021-09-02] MEDS: INSULIN ASPART (NovoLOG) 100 UNIT/ML VIAL SQ SCH (21:15)
[2021-09-02] MEDS: ATORVASTATIN 80 MG TAB PO SCH (21:15)
[2021-09-02] MEDS: APIXABAN 5 MG TAB PO SCH (21:15)
[2021-09-02] MEDS: hydrALAZINE HCL 50 MG TAB PO SCH (21:16)
[2021-09-02] MEDS: ACETAMINOPHEN TAB 325 MG TAB PO PRN (21:16)
[2021-09-02] MEDS: MELATONIN 5 MG TABLET PO SCH (21:16)
[2021-09-02] MEDS: BACLOFEN 10 MG TAB PO PRN (23:16)
[2021-09-03] MEDS: ACETAMINOPHEN TAB 500 MG TAB PO PRN (05:36)
[2021-09-03] MEDS: LEVOTHYROXINE 125 MCG TAB PO SCH (05:36)
[2021-09-03 06:53] LABS: Glucose,Whole Blood 232 mg/dL (75-99)
[2021-09-03] MEDS: hydrALAZINE HCL 50 MG TAB PO SCH ×3 (08:04→20:56)
[2021-09-03] MEDS: FERROUS SULFATE 325 MG TAB PO SCH (08:04)
[2021-09-03] MEDS: lisinopriL 20 MG TAB PO SCH (08:04)
[2021-09-03] MEDS: FUROSEMIDE 20 MG TAB PO SCH (08:05)
[2021-09-03] MEDS: APIXABAN 5 MG TAB PO SCH ×2 (08:05→20:56)
[2021-09-03] MEDS: GABAPENTIN 100 MG CAP PO SCH (08:05)
[2021-09-03] MEDS: polyethylene glycoL 3350 17 GM POWD.PACK PO SCH (08:05)
[2021-09-03] MEDS: POTASSIUM CHLORIDE ER 20 MEQ TAB.ER PO SCH (08:05)
[2021-09-03] MEDS: SERTRALINE 25 MG TAB PO SCH (08:05)
[2021-09-03] MEDS: PIOGLITAZONE 15 MG TAB PO SCH (08:05)
[2021-09-03] MEDS: INSULIN ASPART (NovoLOG) 100 UNIT/ML VIAL SQ SCH ×4 (08:05→20:52)
[2021-09-03] MEDS: carvediloL 12.5 MG TAB PO SCH ×2 (08:05→17:56)
[2021-09-03] MEDS: INSULN ASP PRT/INSULIN ASPART 100 UNIT/ML 10 ML VIAL SQ SCH (08:06)
[2021-09-03 09:18] LABS: African American GFR (CKD) 41.3 (60.0-200.0); Anion Gap -2.5 mmol/L (10.00-18.00); BUN/Creat Ratio 17.71 Ratio (12.00-20.00); Blood Urea Nitrogen 24.8 mg/dL (9.0-27.0); Calcium 8.3 mg/dL (8.7-10.3); Carbon Dioxide 34.5 mmol/L (20.0-27.5); Magnesium 1.8 mg/dL (1.5-2.4); Non-African American GFR(CKD) 35.6 (60.0-200.0); Potassium 4.3 mmol/L (3.5-5.5)
[2021-09-03] MEDS: ACETAMINOPHEN TAB 325 MG TAB PO PRN ×2 (11:19→20:56)
[2021-09-03 11:27] LABS: Basophils # (A) 0.02 X 10*3/uL (0.00-0.10); Basophils % (A) 0.3 %; Eosinophils # (A) 0.35 X 10*3/uL (0.04-0.35); Eosinophils % (A) 5.8 %; HGB 9.8 g/dL (12.0-15.0); Lymphocytes # (A) 1.49 X 10*3/uL (0.90-5.00); Lymphocytes % (A) 24.8 %; MCH 27.5 pg (27.0-32.0); MCHC 30.6 g/dL (32.0-37.0); MCV 89.9 fL (80.0-97.0); Mean Platelet Volume 10.9 fL (9.5-12.2); Monocytes # (A) 1.09 X 10*3/uL (0.20-1.00); Monocytes % (A) 18.1 %; Neutrophils # (A) 2.98 X 10*3/uL (1.80-7.70); Neutrophils % (A) 49.7 %; Platelet Count 205 X 10*3/uL (140-440); RBC 3.56 X 10*6/uL (4.10-5.20); RDW 14.6 % (11.5-14.5); WBC 6.01 X 10*3/uL (4.50-10.00)
[2021-09-03 11:44] LABS: Glucose,Whole Blood 172 mg/dL (75-99)
--- NOTE | 2021-09-03 14:23 | P.HPIM ---
History of Present Illness H&P Date: 09/03/21 This is a 80-year-old female patient of Dr. Dawn/Henri Mejía JEWELRY MAKER and Dr. 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 Amaya for pain management. Asked hospitalization was in March 2021 for acute on chronic diastolic heart failure. At that time echocardiogram revealed EF of 55-60% with severe concentric left ventricular hypertrophy, moderate aortic stenosis, moderate mitral regurgitation, mild tricuspid regurgitation, mild pulmonary hypertension. she was admitted at [facility], from July 28 till 07/31/2021, for right lower lobe infiltrate, with focal air space disease, and pleural effusion, she was discharged to homeCeftin, 250 twice a day, along with baclofen 5 mg 3 times a day. No other medication changes on Ahlquist, Lipitor, and diabetic medication. She is on maintenance gabapentin 100 mg daily. urinalysis and culture was negative, there were planning on short-term follow-up with MRI recommended for the lumbar spine, L3-L4, spinal stenosis. 08/07/2021 patient admitted for right lower lobe pneumonia, with parapneumonic effusion, required thoracenteses, 2 L right side, discharged on 2 L nasal cannula, with oral antibiotic follows with Dr. Elder zimmerman On August 28, patient started getting ill, was brought to the emergency room via EMS on 08/30/20, with pounding headache andweakness, poor appetite, symptoms 2 da ys prior to ER visit. She was diagnosed to have coronary virus infection, and was given monoclonal physician and was discharged to home. Patient comes back on September 02, secondary to dehydration, not eating or drinking, she has a hard time coping at this time, secondary to a [id number] that lives with her does also call B+. She mentions that it is hard for her to take care of each other, she comes in with dehydration, without any hypoxemia, there is mild nonproductive cough, no nausea no vomiting no diarrhea. In this time and being admitted for dehydration, and acute kidney injury, with underlying CK D stage III Review of Systems Constitutional: Reports as per HPI, Denies anorexia, Denies chills, Denies chronic headaches, Denies chronic pain, Denies daytime sleepiness, Denies fatigue, Denies fever, Denies lethargy, Denies malaise, Denies night sweats, Denies poor appetite, Denies sweats, Denies weakness, Denies weight gain, Denies weight loss Ears, nose, mouth and throat: Reports as per HPI Cardiovascular: Reports as per HPI, Reports decreased exercise tolerance, Denies chest pain, Denies dyspnea on exertion, Denies edema, Denies leg edema, Denies paroxysmal nocturnal dyspnea, Denies shortness of breath, Denies syncope Respiratory: Reports as per HPI, Reports cough, Denies cough with sputum, Denies dyspnea, Denies hemoptysis, Denies home oxygen, Denies pain on inspiration Gastrointestinal: Reports as per HPI, Reports loss of appetite, Reports nausea, Denies vomiting Genitourinary: Reports as per HPI, Denies abnormal vaginal bleeding, Denies decreased libido, Denies difficulty conceiving, Denies difficulty voiding, Denies dysmenorrhea, Denies dyspareunia, Denies dysuria, Denies flank pain, Denies genital sores, Denies hematuria, Denies hot flashes, Denies incomplete emptying, Denies kidney stones, Denies menorrhagia, Denies mixed incontinence, Denies nocturia, Denies pelvic pain, Denies post void dribbling, Denies , Denies prolapse symptoms, Denies stress incontinence, Denies urge inc ontinence, Denies urgency, Denies urinary frequency, Denies vaginal discharge, Denies vaginal dryness, Denies vaginal itching, Denies vaginal odor Menstruation: Reports as per HPI Musculoskeletal: Reports as per HPI, Reports gait dysfunction, Reports limitation of motion, Reports muscle weakness, Denies frequent falls, Denies muscle cramps, Denies myalgias, Denies neck pain, Denies shooting arm pain Neurological: Reports as per HPI, Reports gait dysfunction, Reports weakness, Denies numbness, Denies paralysis, Denies tremors, Denies vertigo Psychiatric: Reports as per HPI, Reports anxiety, Denies anhedonia, Denies anxiety attacks, Denies change in appetite, Denies change in libido, Denies ch fam in sleep habits, Denies confusion, Denies depression, Denies difficulty concentrating, Denies disorientation, Denies hallucinations, Denies hopelessness, Denies hypersomnia, Denies insomnia, Denies irritability, Denies memory loss, Denies mood swings, Denies paranoia, Denies sadness/tearfulness, Denies sleep disturbances, Denies suicidal ideation Past Medical History Past Medical History: Atrial Fibrillation, Cancer, Heart Failure, COPD, Diabetes Mellitus, Hyperlipidemia, Osteoarthritis (OA), Pneumonia, Sleep Apnea/CPAP/BIPAP, Thyroid Disorder Additional Past Medical History / Comment(s): Stage III Kidney Disease, hx Pneum onia with Sepsis, no CPAP use, Vitamin D Deficiency, chronic low back pain, frequent constipation, hx skin cancer, neuropathy History of Any Multi-Drug Resistant Organisms: None Reported Past Surgical History: Adenoidectomy, Back Surgery, Bariatric Surgery, Cholecystectomy, Heart Catheterization, Hysterectomy, Tonsillectomy Additional Past Surgical History / Comment(s): Cardiac caths , lap band placed/since removed, low back surgery, L carpal tunnel release X2, skin cancer removal, colonoscopies, bilateral cataract removals/lens implants. 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 She is independent. Smoking Status: Never smoker Past Alcohol Use History: None Reported Past Drug Use History: None Reported - Past Family History Sister(s) Family Medical History: Myocardial Infarction (MS) Brother(s) Family Medical History: Cancer Additional Family Medical History / Comment(s): Colon Cancer. Mother Family Medical History: Dementia Additional Family Medical History / Comment(s): Mother of dementia at the age of 89yrs. Father Family Medical History: Cancer Additional Family Medical History / Comment(s): Pt states her father was treated for a sinus infection but really had leukemia and of this at the age of 72 yrs. Medications and Allergies Home Medications Medication Instructions Recorded Confirmed Type Atorvastatin [Lipitor] 80 mg PO HS 06/30/18 09/02/21 History Apixaban [Eliquis] 5 mg PO BID #60 tab 07/04/18 09/02/21 Rx hydrALAZINE HCL [Apresoline] 100 mg PO TID 01/06/19 09/02/21 History lisinopriL 40 mg PO DAILY 01/06/19 09/02/21 History Levothyroxine Sodium [Synthroid] 125 mcg PO DAILY #30 tab 01/08/19 09/02/21 Rx Insulin NPL/Insulin Lispro 20 unit SQ W/SUPPER 05/30/20 09/02/21 History [humaLOG MIX 75-25 VIAL] Insulin NPL/Insulin Lispro 30 unit SQ W/BRKFST 06/05/20 09/02/21 History [humaLOG MIX 75-25 VIAL] Albuterol Sulfate [Proair Hfa] 2 puff INHALATION RT-Q6H PRN 07/19/20 09/02/21 History Ergocalciferol [Vitamin D2 50,000 unit PO TU 07/19/20 09/02/21 History (DRISDOL)] Pioglitazone [Actos] 15 mg PO DAILY 09/13/20 09/02/21 History Acetaminophen [Tylenol Extra 500 - 1,000 mg PO Q8H PRN 10/14/20 09/02/21 History Strength] Ferrous Sulfate [Feosol] 325 mg PO DAILY 04/01/21 09/02/21 History Gabapentin [Neurontin] 100 mg PO DAILY 04/01/21 09/02/21 History carvediloL [Coreg*] 12.5 mg PO BID-W/MEALS #60 tab 05/11/21 09/02/21 Rx Baclofen [Lioresal] 5 mg PO TID PRN #90 tab 07/31/21 09/02/21 Rx Potassium Chloride ER [K-Dur 20] 20 meq PO W/BRKFST 08/06/21 09/02/21 History Melatonin 10 mg PO HS tablet 08/12/21 09/02/21 Rx amLODIPine [Norvasc] 10 mg PO HS #30 tab 08/12/21 09/02/21 Rx polyethylene glycoL 3350 [Miralax] 17 gm PO DAILY packet 08/12/21 09/02/21 Rx Furosemide [Lasix] 20 mg PO DAILY 08/30/21 09/02/21 History Sertraline [Zoloft] 25 mg PO DAILY 08/30/21 09/02/21 History Allergies Allergy/AdvReac Type Severity Reaction Status Date / Time azithromycin Allergy Rash/Hives Verified 09/02/21 17:29 [From Zithromax Z-Jeanmarie] methylprednisolone Allergy Rash/Hives Verified 09/02/21 17:29 [From Medrol] trimethoprim [From Bactrim] Allergy Rash/Hives Verified 09/02/21 17:29 hydrochlorothiazide AdvReac lost Verified 09/02/21 17:29 balance and fell sulfamethoxazole AdvReac Rash/Hives Verified 09/02/21 17:29 [From Bactrim] Physical Exam Vitals: Vital Signs Temp Pulse Pulse Resp BP BP Pulse Ox 09/03/21 10:07 98.5 F 79 18 120/73 98 09/03/21 05:36 98.1 F 90 18 159/79 95 09/03/21 02:10 97.8 F 90 16 149/63 93 L 09/02/21 21:39 97.9 F 80 12 120/58 98 09/02/21 18:20 98.4 F 79 14 156/76 98 09/02/21 17:36 97.7 F 80 18 131/71 96 09/02/21 15:14 20 09/02/21 15:08 97.5 F L 92 18 121/68 96 Intake and Output 09/02/21 09/03/21 09/03/21 22:59 06:59 14:59 Other: Voiding Method Toilet Toilet # Voids 4 Weight 89.811 kg - Constitutional General appearance: cooperative, no acute distress - EENT Eyes: EOMI, PERRLA, dentition normal, normal appearance ENT: NA/AT, normal oropharynx - Neck Neck: normal ROM - Respiratory Respiratory: bilateral: CTA, negative: diminished, dullness, rales - Cardiovascular Rhythm: regular Heart sounds: normal: S1, S2 Abnormal Heart Sounds: no systolic murmur, no diastolic murmur, no rub, no S3 Gallop, no S4 Gallop, no click, no other - Gastrointestinal General gastrointestinal: normal bowel sounds, soft - Integumentary Integumentary: decreased turgor, normal - Neurologic Neurologic: CNII-XII intact - Musculoskeletal Musculoskeletal: generalized weakness, strength equal bilaterally - Psychiatric Psychiatric: A&O x's 3, appropriate affect Results CBC & Chem 7: 09/03/21 06:06 09/03/21 06:06 Labs: Abnormal Lab Results - Last 24 Hours (Table) 09/02/21 09/02/21 09/02/21 Range/Units 15:23 15:23 17:49 MCHC 30.0 L (31.0-37.0) g/dL Carbon Dioxide 21 L (22-30) mmol/L Anion Gap (10.00-18.00) mmol/L BUN 28 H (7-17) mg/dL Creatinine 1.86 H (0.52-1.04) mg/dL Est GFR (CKD-EPI)AfAm (60.0-200.0) Est GFR (CKD-EPI)NonAf (60.0-200.0) Glucose 262 H (74-99) mg/dL POC Glucose (mg/dL) 211 H (75-99) mg/dL Calcium (8.7-10.3) mg/dL 09/02/21 09/03/21 09/03/21 Range/Units 21:03 06:06 06:52 MCHC (31.0-37.0) g/dL Carbon Dioxide 34.5 H (22-30) mmol/L Anion Gap -2.50 L (10.00-18.00) mmol/L BUN (7-17) mg/dL Creatinine (0.52-1.04) mg/dL Est GFR (CKD-EPI)AfAm 41.3 L (60.0-200.0) Est GFR (CKD-EPI)NonAf 35.6 L (60.0-200.0) Glucose 232 H (74-99) mg/dL POC Glucose (mg/dL) 309 H 232 H (75-99) mg/dL Calcium 8.3 L (8.7-10.3) mg/dL Thrombosis Risk Factor Assmnt - DVT/VTE Prophylaxis DVT/VTE Prophylaxis: Pharmacologic Prophylaxis ordered - Choose All That Apply Other congenital or acquired thrombophilia - If yes, enter type in comment: Yes Assessment and Plan Plan: ASSESSMENT AND PLAN 1. Dehydration with acute kidney injury Coronary virus 19 infection, without any hypoxemia, diagnosed 08/30/2021 with symptoms starting on 08/28/2021, status post 2 doses of coronary virus vaccination, requiring for booster upon presentation. Patient received monoclonal fusion on 09/02/2021,. Booster shot will be due approximately 12/02/2021, patient's notified of this. She comes in with dehydration, and acute kidney injury secondary to diminished oral intake. IV fluids for hydration, and oral fluid challenge, as tolerated monitor for hypoxemia, 2. Recent history in July 2021 of with right sided parapneumonic effusion status post thoracentesis 2 L 3. Acute kidney injury, with ATN, underlying CK D stage III IV fluids, hold off diuretic at this time later creatinine 3 Chronic diastolic heart failure without exacerbation Continue Coreg 12.5 mg twice daily, hold Lasix at this time we will resume on discharge Lasix 40 mg twice daily. 4. Diabetes mellitus type 2 uncontrolled with hyperglycemia. Continue Actos 15 mg daily, NovoLog mix 7030 30 units with breakfast and 20 units with supper. Continue NovoLog scale before meals and at bedtime. A1c March 2021 was 10.5 5. Paroxysmal atrial fibrillation continue eliquis 5 mg twice daily, Coreg 12.5 mg twice daily. 6. Hypertension hypertensive cardiovascular disease. Continue amlodipine 10 mg hs, Coreg 12.5 mg twice daily, hydralazine 100 mg 3 times daily, lisinopril 40 mg daily.. Possible labetalol instead of Coreg 7. Hypothyroidism. Continue levothyroxine 125 g daily. 8. Diabetic neuropathy. Continue gabapentin 100 mg daily. 9. 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 Continue albuterol nebulizer every 6 hours as needed. 10. Chronic kidney disease stage III. Avoid nephrotoxic agents, monitor kidney function. 11. Obstructive sleep apnea unable to tolerate CPAP. Patient will need to reestablish with pulmonary medicine and outpatient follow-up for sleep study. 12. Degenerative disc disease with chronic pain. Follows with pain management with Dr. Amaya. 13. Hyperlipidemia. Continue Lipitor 80 mg at bedtime. 14. Chronic anemia. Continue ferrous sulfate 325 mg daily. 15 Situational anxiety disorder. Xanax 25 mg twice daily added.. GI prophylaxis. Protonix. DVT prophylaxis. Eliquis.
[2021-09-03 16:48] LABS: Glucose,Whole Blood 157 mg/dL (75-99)
[2021-09-03] MEDS ORDERED: INSULN ASP PRT/INSULIN ASPART 100 UNIT/ML 10 ML VIAL SQ SCH (17:30)
[2021-09-03 20:27] LABS: Glucose,Whole Blood 106 mg/dL (75-99)
[2021-09-03] MEDS: ATORVASTATIN 80 MG TAB PO SCH (20:56)
[2021-09-03] MEDS: amLODIPine 10 MG TAB PO SCH (20:56)
[2021-09-03] MEDS: MELATONIN 5 MG TABLET PO SCH (20:57)
[2021-09-03 22:54] LABS: Glucose,Whole Blood 49 mg/dL (75-99)
[2021-09-03 23:19] LABS: Glucose,Whole Blood 79 mg/dL (75-99)
[2021-09-04 01:20] LABS: Glucose,Whole Blood 138 mg/dL (75-99)
[2021-09-04] MEDS: LEVOTHYROXINE 125 MCG TAB PO SCH (05:32)
[2021-09-04] MEDS: ACETAMINOPHEN TAB 325 MG TAB PO PRN (05:32)
[2021-09-04 07:02] LABS: Glucose,Whole Blood 244 mg/dL (75-99)
[2021-09-04] MEDS: INSULN ASP PRT/INSULIN ASPART 100 UNIT/ML 10 ML VIAL SQ SCH (08:22)
[2021-09-04] MEDS: APIXABAN 5 MG TAB PO SCH ×2 (08:23→21:07)
[2021-09-04] MEDS: INSULIN ASPART (NovoLOG) 100 UNIT/ML VIAL SQ SCH ×4 (08:23→21:07)
[2021-09-04] MEDS: carvediloL 12.5 MG TAB PO SCH ×2 (08:23→16:58)
[2021-09-04] MEDS: POTASSIUM CHLORIDE ER 20 MEQ TAB.ER PO SCH (08:23)
[2021-09-04] MEDS: polyethylene glycoL 3350 17 GM POWD.PACK PO SCH (08:24)
[2021-09-04] MEDS: FERROUS SULFATE 325 MG TAB PO SCH (08:24)
[2021-09-04] MEDS: lisinopriL 20 MG TAB PO SCH (08:24)
[2021-09-04] MEDS: PIOGLITAZONE 15 MG TAB PO SCH (08:24)
[2021-09-04] MEDS: FUROSEMIDE 20 MG TAB PO SCH (08:24)
[2021-09-04] MEDS: GABAPENTIN 100 MG CAP PO SCH (08:24)
[2021-09-04] MEDS: hydrALAZINE HCL 50 MG TAB PO SCH ×3 (08:24→21:06)
[2021-09-04] MEDS: SERTRALINE 25 MG TAB PO SCH (08:24)
[2021-09-04 11:25] LABS: Glucose,Whole Blood 159 mg/dL (75-99)
--- NOTE | 2021-09-04 12:37 | P.PN ---
Subjective Progress Note Date: 09/04/21 H&P Date: 09/03/21 This is a 80-year-old female patient of Dr. Dawn/Henri Mejía WHEEL FILLER and Dr. 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 Amaya for pain management. Asked hospitalization was in March 2021 for acute on chronic diastolic heart failure. At that time echocardiogram revealed EF of 55-60% with severe concentric left ventricular hypertrophy, moderate aortic stenosis, moderate mitral regurgitation, mild tricuspid regurgitation, mild pulmonary hypertension. she was admitted at [facility], from July 28 till 07/31/2021, for right lower lobe infiltrate, with focal air space disease, and pleural effusion, she was discharged to homeCeftin, 250 twice a day, along with baclofen 5 mg 3 times a day. No other medication changes on Ahlquist, Lipitor, and diabetic medication. She is on maintenance gabapentin 100 mg daily. urinalysis and culture was negative, there were planning on short-term follow-up with MRI recommended for the lumbar spine, L3-L4, spinal stenosis. 08/07/2021 patient admitted for right lower lobe pneumonia, with parapneumonic effusion, required thoracenteses, 2 L right side, discharged on 2 L nasal cannula, with oral antibiotic follows with Dr. Elder zimmerman On August 28, patient started getting ill, was brought to the emergency room via EMS on 08/30/20, with pounding headache andweakness, poor appetite, symptoms 2 days prior to ER visit. She was diagnosed to have coronary virus infection, and was given monoclonal physician and was discharged to home. Patient comes back on September 02, secondary to dehydration, not eating or drinking, she has a hard time coping at this time, secondary to a [id number] that lives with her does also call B+. She mentions that it is hard for her to take care of each other, she comes in with dehydration, without any hypoxemia, there is mild nonproductive cough, no nausea no vomiting no diarrhea. In this time and being admitted for dehydration, and acute kidney injury, with underlying CK D stage III 09/04: Patient is feeling much better, however she doesn't feel ready to go home, appetite is still diminished, food does not taste right, sugars are low at 451, at 22:00, patient's insulin was decreased to 17 units at dinnertime, and 25 units at the morning 7030. Anticipating discharge tomorrow, patient continued assistance to get back home, rather than a private car, she will need a taxi her preference patient remains on room air, no nausea no vomiting no dyspnea Review of Systems Constitutional: Reports as per HPI, Denies anorexia, Denies chills, Denies chronic headaches, Denies chronic pain, Denies daytime sleepiness, Denies fatigue, Denies fever, Denies lethargy, Denies malaise, Denies night sweats, Denies poor appetite, Denies sweats, Denies weakness, Denies weight gain, Denies weight loss Ears, nose, mouth and throat: Reports as per HPI Cardiovascular: Reports as per HPI, Reports decreased exercise tolerance, Denies chest pain, Denies dyspnea on exertion, Denies edema, Denies leg edema, Denies paroxysmal nocturnal dyspnea, Denies shortness of breath, Denies syncope Respiratory: Reports as per HPI, Reports cough, Denies cough with sputum, Denies dyspnea, Denies hemoptysis, Denies home oxygen, Denies pain on inspiration Gastrointestinal: Reports as per HPI, Reports loss of appetite, Reports nausea, Denies vomiting Genitourinary: Reports as per HPI, Denies abnormal vaginal bleeding, Denies decreased libido, Denies difficulty conceiving, Denies difficulty voiding, Denies dysmenorrhea, Denies dyspareunia, Denies dysuria, Denies flank pain, Denies genital sores, Denies hematuria, Denies hot flashes, Denies incomplete emptying, Denies kidney stones, Denies menorrhagia, Denies mixed incontinence, Denies nocturia, Denies pelvic pain, Denies post void dribbling, Denies , Denies prolapse symptoms, Denies stress incontinence, Denies urge incontinence, Denies urgency, Denies urinary frequency, Denies vaginal discharge, Denies vaginal dryness, Denies vaginal itching, Denies vaginal odor Menstruation: Reports as per HPI Musculoskeletal: Reports as per HPI, Reports gait dysfunction, Reports limitation of motion, Reports muscle weakness, Denies frequent falls, Denies muscle cramps, Denies myalgias, Denies neck pain, Denies shooting arm pain Neurological: Reports as per HPI, Reports gait dysfunction, Reports weakness, Denies numbness, Denies paralysis, Denies tremors, Denies vertigo Psychiatric: Reports as per HPI, Reports anxiety, Denies anhedonia, Denies anxiety attacks, Denies change in appetite, Denies change in libido, Denies change in sleep habits, Denies confusion, Denies depression, Denies difficulty concentrating, Denies disorientation, Denies hallucinations, Denies hopelessness, Denies hypersomnia, Denies insomnia, Denies irritability, Denies memory loss, Denies mood swings, Denies paranoia, Denies sadness/tearfulness, Denies sleep disturbances, Denies suicidal ideation ASSESSMENT AND PLAN 1. Dehydration with acute kidney injury Coronary virus 19 infection, without any hypoxemia, diagnosed 08/30/2021 with symptoms starting on 08/28/2021, status post 2 doses of coronary virus vaccination, requiring for booster upon presentation. Patient received monoclonal fusion on 09/02/2021,. Booster shot will be due approximately 12/02/2021, patient's notified of this. She comes in with dehydration, and acute kidney injury secondary to diminished oral intake. IV fluids for hydration, and oral fluid challenge, as tolerated monitor for hypoxemia, 2. Recent history in July 2021 of with right sided parapneumonic effusion status post thoracentesis 2 L 3. Acute kidney injury, with ATN, underlying CK D stage III IV fluids, hold off diuretic at this time later creatinine 3 Chronic diastolic heart failure without exacerbation Continue Coreg 12.5 mg twice daily, hold Lasix at this time we will resume on discharge Lasix 40 mg twice daily. 4. Diabetes mellitus type 2 uncontrolled with hyperglycemia. Continue Actos 15 mg daily, NovoLog mix 7030 30 units with breakfast and 20 units with supper. Continue NovoLog scale before meals and at bedtime. A1c March 2021 was 10.5 5. Paroxysmal atrial fibrillation continue eliquis 5 mg twice daily, Coreg 12.5 mg twice daily. 6. Hypertension hypertensive cardiovascular disease. Continue amlodipine 10 mg hs, Coreg 12.5 mg twice daily, hydralazine 100 mg 3 times daily, lisinopril 40 mg daily.. Possible labetalol instead of Coreg 7. Hypothyroidism. Continue levothyroxine 125 g daily. 8. Diabetic neuropathy. Continue gabapentin 100 mg daily. 9. 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 Continue albuterol nebulizer every 6 hours as needed. 10. Chronic kidney disease stage III. Avoid nephrotoxic agents, monitor kidney function. 11. Obstructive sleep apnea unable to tolerate CPAP. Patient will need to reestablish with pulmonary medicine and outpatient follow-up for sleep study. 12. Degenerative disc disease with chronic pain. Follows with pain management with Dr. Amaya. 13. Hyperlipidemia. Continue Lipitor 80 mg at bedtime. 14. Chronic anemia. Continue ferrous sulfate 325 mg daily. 15 Situational anxiety disorder. Xanax 25 mg twice daily added.. GI prophylaxis. Protonix. DVT prophylaxis. Eliquis. Physical exam - Constitutional General appearance: cooperative, no acute distress - EENT Eyes: EOMI, PERRLA, dentition normal, normal appearance ENT: NA/AT, normal oropharynx - Neck Neck: normal ROM - Respiratory Respiratory: bilateral: CTA, negative: diminished, dullness, rales - Cardiovascular Rhythm: regular Heart sounds: normal: S1, S2 Abnormal Heart Sounds: no systolic murmur, no diastolic murmur, no rub, no S3 Gallop, no S4 Gallop, no click, no other - Gastrointestinal General gastrointestinal: normal bowel sounds, soft - Integumentary Integumentary: decreased turgor, normal - Neurologic Neurologic: CNII-XII intact - Musculoskeletal Musculoskeletal: generalized weakness, strength equal bilaterally - Psychiatric Psychiatric: A&O x's 3, appropriate affect Vital Signs Temp 98.6 F 09/04/21 10:03 Pulse 61 09/04/21 10:03 Resp 17 09/04/21 10:03 BP 111/58 09/04/21 10:03 Pulse Ox 94 L 09/04/21 11:42 Intake & Output 09/03/21 09/04/21 09/04/21 18:59 06:59 18:59 Other: Voiding Method Toilet Toilet # Voids 4 4 Current Medications Acetaminophen (Acetaminophen Tab 325 Mg Tab) 650 mg PO Q6HR PRN PRN Reason: Mild Pain or Fever > 100.5 Last Admin: 09/04/21 05:32 Dose: 650 mg Documented by: Acetaminophen (Acetaminophen Tab 500 Mg Tab) 1,000 mg PO Q8H PRN PRN Reason: Pain Last Admin: 09/03/21 05:36 Dose: 1,000 mg Documented by: Albuterol Sulfate (Albuterol Hfa Inhaler) 2 puff INHALATION RT-Q6H PRN PRN Reason: Dyspnea Amlodipine Besylate (Amlodipine 10 Mg Tab) 10 mg PO [facility] Last Admin: 09/03/21 20:56 Dose: 10 mg Documented by: Apixaban (Apixaban 5 Mg Tab) 5 mg PO BID [facility]; Protocol Last Admin: 09/04/21 08:23 Dose: 5 mg Documented by: Atorvastatin Calcium (Atorvastatin 80 Mg Tab) 80 mg PO [facility] Last Admin: 09/03/21 20:56 Dose: 80 mg Documented by: Baclofen (Baclofen 10 Mg Tab) 5 mg PO TID PRN PRN Reason: Muscle Spasm Last Admin: 09/02/21 23:16 Dose: 5 mg Documented by: Carvedilol (Carvedilol 12.5 Mg Tab) 12.5 mg PO BID-W/MEALS [facility] Last Admin: 09/04/21 08:23 Dose: 12.5 mg Documented by: Ergocalciferol (Ergocalciferol 1,250 Mcg (50,000 Iu) Capsule) 50,000 mcg PO [facility] Ferrous Sulfate (Ferrous Sulfate 325 Mg Tab) 325 mg PO DAILY [facility] Last Admin: 09/04/21 08:24 Dose: 325 mg Documented by: Furosemide (Furosemide 20 Mg Tab) 20 mg PO DAILY [facility] Last Admin: 09/04/21 08:24 Dose: 20 mg Documented by: Gabapentin (Gabapentin 100 Mg Cap) 100 mg PO DAILY [facility] Last Admin: 09/04/21 08:24 Dose: 100 mg Documented by: Hydralazine HCl (Hydralazine Hcl 50 Mg Tab) 100 mg PO TID [facility] Last Admin: 09/04/21 08:24 Dose: 100 mg Documented by: Insulin Aspart (Insulin Aspart (Novolog) 100 Unit/Ml Vial) 0 unit SQ ACHS [facility]; Protocol Last Admin: 09/04/21 08:23 Dose: 3 unit Documented by: Insulin Aspart (Insuln Asp Prt/Insulin Aspart 100 Unit/Ml 10 Ml Vial) 15 unit SQ W/SUPPER [facility] Insulin Aspart (Insuln Asp Prt/Insulin Aspart 100 Unit/Ml 10 Ml Vial) 27 [facility] SQ [facility] Levothyroxine Sodium (Levothyroxine 125 Mcg Tab) 125 mcg PO DAILY@0630 [facility] Last Admin: 09/04/21 05:32 Dose: 125 mcg Documented by: Lisinopril (Lisinopril 20 Mg Tab) 40 mg PO DAILY [facility] Last Admin: 09/04/21 08:24 Dose: 40 mg Documented by: Melatonin (Melatonin 5 Mg Tablet) 10 mg PO HS [facility] Last Admin: 09/03/21 20:57 Dose: 10 mg Documented by: Naloxone HCl (Naloxone 0.4 Mg/Ml 1 Ml Vial) 0.2 mg IV Q2M PRN PRN Reason: Opioid Reversal Ondansetron HCl (Ondansetron 4 Mg/2 Ml Vial) 4 mg IVP Q8HR PRN PRN Reason: Nausea And Vomiting Pioglitazone HCl (Pioglitazone 15 Mg Tab) 15 mg PO DAILY [facility] Last Admin: 09/04/21 08:24 Dose: 15 mg Documented by: Polyethylene Glycol (Polyethylene Glycol 3350 17 Gm Powd.Pack) 17 gm PO DAILY [facility] Last Admin: 09/04/21 08:24 Dose: 17 gm Documented by: Potassium Chloride (Potassium Chloride Er 20 Meq Tab.Er) 20 meq PO W/BRKT [facility] Last Admin: 09/04/21 08:23 Dose: 20 meq Documented by: Sertraline HCl (Sertraline 25 Mg Tab) 25 mg PO DAILY [facility] Last Admin: 09/04/21 08:24 Dose: 25 mg Documented by: Laboratory Results - Last 24 Hours 09/03/21 09/03/21 09/03/21 16:48 20:26 22:53 POC Glucose (mg/dL) 157 H 106 H 49 L POC Glu Superintendent Plant ID Carlee Adair Shawna Schoensee, Shawna 09/03/21 09/04/21 09/04/21 23:17 01:17 07:00 POC Glucose (mg/dL) 79 138 H 244 H POC Glu Superintendent Plant ID Lashawn Knowles Shawna Lumpkins, Jasmine 09/04/21 11:24 POC Glucose (mg/dL) 159 H POC Glu Superintendent Plant ID Carlee Adair Objective - Vital Signs Vital signs: Vital Signs Temp 98.6 F 09/04/21 10:03 Pulse 61 09/04/21 10:03 Resp 17 09/04/21 10:03 BP 111/58 09/04/21 10:03 Pulse Ox 94 L 09/04/21 10:03 Intake & Output 09/03/21 09/04/21 09/04/21 18:59 06:59 18:59 Other: Voiding Method Toilet Toilet # Voids 4 4 - Labs CBC & Chem 7: 09/05/21 06:49 09/05/21 06:49 Labs: Abnormal Lab Results - Last 24 Hours (Table) 09/03/21 09/03/21 09/03/21 Range/Units 06:06 11:42 16:48 RBC 3.56 L (4.10-5.20) X 10*6/uL Hgb 9.8 L (12.0-15.0) g/dL Hct 32.0 L (37.2-46.3) % MCHC 30.6 L (32.0-37.0) g/dL RDW 14.6 H (11.5-14.5) % Immature Gran # 0.08 H (0.00-0.04) X 10*3/uL Monocytes # 1.09 H (0.20-1.00) X 10*3/uL POC Glucose (mg/dL) 172 H 157 H (75-99) mg/dL 09/03/21 09/03/21 09/04/21 Range/Units 20:26 22:53 01:17 RBC (4.10-5.20) X 10*6/uL Hgb (12.0-15.0) g/dL Hct (37.2-46.3) % MCHC (32.0-37.0) g/dL RDW (11.5-14.5) % Immature Gran # (0.00-0.04) X 10*3/uL Monocytes # (0.20-1.00) X 10*3/uL POC Glucose (mg/dL) 106 H 49 L 138 H (75-99) mg/dL 09/04/21 Range/Units 07:00 RBC (4.10-5.20) X 10*6/uL Hgb (12.0-15.0) g/dL Hct (37.2-46.3) % MCHC (32.0-37.0) g/dL RDW (11.5-14.5) % Immature Gran # (0.00-0.04) X 10*3/uL Monocytes # (0.20-1.00) X 10*3/uL POC Glucose (mg/dL) 244 H (75-99) mg/dL
[2021-09-04 13:33] LABS: Glucose,Whole Blood 197 mg/dL (75-99)
[2021-09-04 16:24] LABS: Glucose,Whole Blood 157 mg/dL (75-99)
[2021-09-04] MEDS ORDERED: INSULN ASP PRT/INSULIN ASPART 100 UNIT/ML 10 ML VIAL SQ SCH (17:30)
[2021-09-04] MEDS: ACETAMINOPHEN TAB 500 MG TAB PO PRN (17:59)
[2021-09-04 20:33] LABS: Glucose,Whole Blood 179 mg/dL (75-99)
[2021-09-04] MEDS: MELATONIN 5 MG TABLET PO SCH (21:07)
[2021-09-04] MEDS: amLODIPine 10 MG TAB PO SCH (21:07)
[2021-09-04] MEDS: ATORVASTATIN 80 MG TAB PO SCH (21:07)
[2021-09-05] MEDS: BACLOFEN 10 MG TAB PO PRN (01:01)
[2021-09-05] MEDS: ACETAMINOPHEN TAB 500 MG TAB PO PRN (05:43)
[2021-09-05] MEDS: LEVOTHYROXINE 125 MCG TAB PO SCH (05:43)
[2021-09-05 06:47] LABS: Glucose,Whole Blood 150 mg/dL (75-99)
[2021-09-05] MEDS ORDERED: INSULN ASP PRT/INSULIN ASPART 100 UNIT/ML 10 ML VIAL SQ SCH (07:30)
[2021-09-05] MEDS: hydrALAZINE HCL 50 MG TAB PO SCH (08:12)
[2021-09-05] MEDS: FERROUS SULFATE 325 MG TAB PO SCH (08:12)
[2021-09-05] MEDS: FUROSEMIDE 20 MG TAB PO SCH (08:12)
[2021-09-05] MEDS: PIOGLITAZONE 15 MG TAB PO SCH (08:13)
[2021-09-05] MEDS: polyethylene glycoL 3350 17 GM POWD.PACK PO SCH (08:13)
[2021-09-05] MEDS: GABAPENTIN 100 MG CAP PO SCH (08:13)
[2021-09-05] MEDS: POTASSIUM CHLORIDE ER 20 MEQ TAB.ER PO SCH (08:13)
[2021-09-05] MEDS: SERTRALINE 25 MG TAB PO SCH (08:13)
[2021-09-05] MEDS: carvediloL 12.5 MG TAB PO SCH (08:13)
[2021-09-05] MEDS: lisinopriL 20 MG TAB PO SCH (08:13)
[2021-09-05] MEDS: APIXABAN 5 MG TAB PO SCH (08:13)
[2021-09-05] MEDS: INSULIN ASPART (NovoLOG) 100 UNIT/ML VIAL SQ SCH ×2 (08:14→12:34)
[2021-09-05 09:58] VITALS: BP 117/60; PULSE 62; RESP 17; TEMP 97.9
[2021-09-05] MEDS: ACETAMINOPHEN TAB 325 MG TAB PO PRN (10:14)
[2021-09-05 10:24] LABS: Glucose,Whole Blood 235 mg/dL (75-99)
[2021-09-05 11:17] LABS: African American GFR (CKD) 44.9 (60.0-200.0); Anion Gap 11.7 mmol/L (10.00-18.00); BUN/Creat Ratio 16.62 Ratio (12.00-20.00); Blood Urea Nitrogen 21.6 mg/dL (9.0-27.0); Calcium 8.8 mg/dL (8.7-10.3); Carbon Dioxide 24.3 mmol/L (20.0-27.5); Non-African American GFR(CKD) 38.7 (60.0-200.0); Potassium 4.9 mmol/L (3.5-5.5)
[2021-09-05 11:35] LABS: Basophils # (A) 0.06 X 10*3/uL (0.00-0.10); Basophils % (A) 0.5 %; Eosinophils % (A) 4.4 %; HCT 38.2 % (37.2-46.3); HGB 11.2 g/dL (12.0-15.0); Lymphocytes # (A) 1.49 X 10*3/uL (0.90-5.00); Lymphocytes % (A) 13.1 %; MCH 27.2 pg (27.0-32.0); MCHC 29.3 g/dL (32.0-37.0); MCV 92.7 fL (80.0-97.0); Mean Platelet Volume 11.3 fL (9.5-12.2); Monocytes # (A) 1.78 X 10*3/uL (0.20-1.00); Monocytes % (A) 15.7 %; Neutrophils # (A) 7.38 X 10*3/uL (1.80-7.70); Platelet Count 246 X 10*3/uL (140-440); RBC 4.12 X 10*6/uL (4.10-5.20); RDW 15.1 % (11.5-14.5); WBC 11.36 X 10*3/uL (4.50-10.00)
[2021-09-05] MEDS ORDERED: MECLIZINE 25 MG TAB PO PRN (11:55)
[2021-09-05] MEDS ORDERED: MECLIZINE 25 MG TAB PO STA (11:55)
--- NOTE | 2021-09-05 13:16 | P.DS ---
Providers Date of admission: 09/02/21 16:42 Expected date of discharge: 09/05/21 Attending physician: Lanie Temple Primary care physician: Dontae Dawn [facility] Course: HISTORY OF PRESENT ILLNESS This is a 80-year-old female patient of Dr. Dawn/Henri Mejía [employer]NAGER [employer] and Dr. 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 Amaya for pain management. Asked hospitalization was in March 2021 for acute on chronic diastolic heart failure. At that time echocardiogram revealed EF of 55-60% with severe concentric left ventricular hypertrophy, moderate aortic stenosis, moderate mitral regurgitation, mild tricuspid regurgitation, mild pulmonary hypertension. she was admitted at [facility], from July 28 till 07/31/2021, for right lower lobe infiltrate, with focal air space disease, and p leural effusion, she was discharged to homeCeftin, 250 twice a day, along with baclofen 5 mg 3 times a day. No other medication changes on Ahlquist, Lipitor, and diabetic medication. She is on maintenance gabapentin 100 mg daily. urinalysis and culture was negative, there were planning on short-term follow-up with MRI recommended for the lumbar spine, L3-L4, spinal stenosis. 08/07/2021 patient admitted for right lower lobe pneumonia, with parapneumonic effusion, required thoracenteses, 2 L right side, discharged on 2 L nasal cannula, with oral antibiotic follows with Dr. Elder zimmerman On August 28, patient started getting ill, was brought to the emergency room via EMS on 08/30/20, with pounding headache andweakness, poor appetite, symptoms 2 days prior to ER visit. She was diagnosed to have coronary virus infection, and was given monoclonal physician and was discharged to home. Patient comes back on September 02, secondary to dehydration, not eating or drinking, she has a hard time coping at this time, secondary to a [id number] that lives with her does also call B+. She mentions that it is hard for her to take care of each other, she comes in with dehydration, without any hypoxemia, there is mild nonproductive cough, no nausea no vomiting no diarrhea. In this time and being admitted for dehydration, and acute kidney injury, with underlying CK D stage III 09/04: Patient is feeling much better, however she doesn't feel ready to go home, appetite is still diminished, food does not taste right, sugars are low at 451, at 22:00, patient's insulin was decreased to 17 units at dinnertime, and 25 units at the morning 7030. Anticipating discharge tomorrow, patient continued assistance to get back home, rather than a private car, she will need a taxi her preference patient remains on room air, no nausea no vomiting no dyspnea 09/05: 18 blood work reveals creatinine of 1.3. Hemoglobin 11.2, WBC 11.3. Blood sugars are running between 157 and 235. Patient complains of feeling dizzy and meclizine added. Patient states she utilizes a walker at home. She is complaining of difficulty with right ear. We have a PT consult in place if patient is safe, she will be discharged home today in stable condition. DISCHARGE DIAGNOSES Dehydration with acute kidney injury. Coronary virus 19 infection, without any hypoxemia, diagnosed 08/30/2021 with symptoms starting on 08/28/2021, status post 2 doses of coronary virus vaccination, requiring for booster upon presentation. Patient received monoclonal fusion on 09/02/2021. Booster shot will be due approximately . Recent history in July 2021 of with right sided parapneumonic effusion status post thoracentesis 2 L Acute kidney injury, with ATN, underlying CK D stage III Chronic diastolic heart failure without exacerbation Diabetes mellitus type 2 uncontrolled with hyperglycemia. Paroxysmal atrial fibrillation Hypertension hypertensive cardiovascular disease. Hypothyroidism. Diabetic neuropathy. 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 Chronic kidney disease stage III. Obstructive sleep apnea unable to tolerate CPAP. Degenerative disc disease with chronic pain. Hyperlipidemia. Chronic anemia. Situational anxiety disorder. DISCHARGE PLAN Home Greater than 35 minutes was utilized and coordinating patient's discharge. Impression and plan of care have been directed as dictated by the signing physician. Bria Muahmmad nurse practitioner acting as scribe for signing physician.[id number] Patient Condition at Discharge: Stable Plan - Discharge Summary Discharge Rx Participant: No New Discharge Prescriptions: New Meclizine [Antivert] 25 mg PO TID PRN #60 tab PRN Reason: Vertigo Continue Atorvastatin [Lipitor] 80 mg PO HS Apixaban [Eliquis] 5 mg PO BID #60 tab lisinopriL 40 mg PO DAILY hydrALAZINE HCL [Apresoline] 100 mg PO TID Levothyroxine Sodium [Synthroid] 125 mcg PO DAILY #30 tab Insulin NPL/Insulin Lispro [humaLOG MIX 75-25 VIAL] 20 unit SQ W/SUPPER Insulin NPL/Insulin Lispro [humaLOG MIX 75-25 VIAL] 30 unit SQ W/BRKFST Albuterol Sulfate [Proair Hfa] 2 puff INHALATION RT-Q6H PRN PRN Reason: Dyspnea Ergocalciferol [Vitamin D2 (DRISDOL)] 50,000 unit PO TU Pioglitazone [Actos] 15 mg PO DAILY Acetaminophen [Tylenol Extra Strength] 500 - 1,000 mg PO Q8H PRN PRN Reason: Pain Ferrous Sulfate [Feosol] 325 mg PO DAILY Gabapentin [Neurontin] 100 mg PO DAILY carvediloL [Coreg*] 12.5 mg PO BID-W/MEALS #60 tab Baclofen [Lioresal] 5 mg PO TID PRN #90 tab PRN Reason: Muscle Spasm polyethylene glycoL 3350 [Miralax] 17 gm PO DAILY packet amLODIPine [Norvasc] 10 mg PO HS #30 tab Sertraline [Zoloft] 25 mg PO DAILY Furosemide [Lasix] 20 mg PO DAILY Potassium Chloride ER [K-Dur 20] 20 meq PO W/BRKFST Melatonin 10 mg PO HS tablet Discharge Medication List Atorvastatin [Lipitor] 80 mg PO HS 06/30/18 [History] Apixaban [Eliquis] 5 mg PO BID #60 tab 07/04/18 [Rx] hydrALAZINE HCL [Apresoline] 100 mg PO TID 01/06/19 [History] lisinopriL 40 mg PO DAILY 01/06/19 [History] Levothyroxine Sodium [Synthroid] 125 mcg PO DAILY #30 tab 01/08/19 [Rx] Insulin NPL/Insulin Lispro [humaLOG MIX 75-25 VIAL] 20 unit SQ W/SUPPER 05/30/20 [History] Insulin NPL/Insulin Lispro [humaLOG MIX 75-25 VIAL] 30 unit SQ W/BRKFST 06/05/20 [History] Albuterol Sulfate [Proair Hfa] 2 puff INHALATION RT-Q6H PRN 07/19/20 [History] Ergocalciferol [Vitamin D2 (DRISDOL)] 50,000 unit PO TU 07/19/20 [History] Pioglitazone [Actos] 15 mg PO DAILY 09/13/20 [History] Acetaminophen [Tylenol Extra Strength] 500 - 1,000 mg PO Q8H PRN 10/14/20 [History] Ferrous Sulfate [Feosol] 325 mg PO DAILY 04/01/21 [History] Gabapentin [Neurontin] 100 mg PO DAILY 04/01/21 [History] carvediloL [Coreg*] 12.5 mg PO BID-W/MEALS #60 tab 05/11/21 [Rx] Baclofen [Lioresal] 5 mg PO TID PRN #90 tab 07/31/21 [Rx] Potassium Chloride ER [K-Dur 20] 20 meq PO W/BRKFST 08/06/21 [History] Melatonin 10 mg PO HS tablet 08/12/21 [Rx] amLODIPine [Norvasc] 10 mg PO HS #30 tab 08/12/21 [Rx] polyethylene glycoL 3350 [Miralax] 17 gm PO DAILY packet 08/12/21 [Rx] Furosemide [Lasix] 20 mg PO DAILY 08/30/21 [History] Sertraline [Zoloft] 25 mg PO DAILY 08/30/21 [History] Meclizine [Antivert] 25 mg PO TID PRN #60 tab 09/05/21 [Rx] Follow up Appointment(s)/Referral(s): Dontae Dawn MD [Primary Care Provider] - 1 Week Discharge Disposition: HOME SELF-CARE
[2021-09-06] MEDS ORDERED: ERGOCALCIFEROL 1,250 MCG (50,000 IU) CAPSULE PO SCH (09:00)
== END 2021-09-05 15:23 | disposition home or self-care (01) ==
LOC: EC 15:06 → 6NMEDSUR 16:42 → 4SSUR 17:08
PROVIDERS: ADMIT Family Medicine; ATTEND Family Medicine
DX: N17.0 Acute kidney failure with tubular necrosis (principal); I13.0 Hypertensive heart and chronic kidney disease with heart failure and stage 1 through stage 4 chronic kidney disease, or unspecified chronic kidney disease; U07.1 COVID-19; N18.30 Chronic kidney disease, stage 3 unspecified; I50.33 Acute on chronic diastolic (congestive) heart failure; E11.22 Type 2 diabetes mellitus with diabetic chronic kidney disease; E11.65 Type 2 diabetes mellitus with hyperglycemia; I27.20 Pulmonary hypertension, unspecified; E86.0 Dehydration; E11.40 Type 2 diabetes mellitus with diabetic neuropathy, unspecified; I48.0 Paroxysmal atrial fibrillation; I25.10 Atherosclerotic heart disease of native coronary artery without angina pectoris; D64.9 Anemia, unspecified; E03.9 Hypothyroidism, unspecified; E78.5 Hyperlipidemia, unspecified; J44.9 Chronic obstructive pulmonary disease, unspecified; G89.29 Other chronic pain; M19.90 Unspecified osteoarthritis, unspecified site; I08.0 Rheumatic disorders of both mitral and aortic valves; G47.33 Obstructive sleep apnea (adult) (pediatric); Z77.22 Contact with and (suspected) exposure to environmental tobacco smoke (acute) (chronic); F41.9 Anxiety disorder, unspecified; F32.A Depression, unspecified; G56.02 Carpal tunnel syndrome, left upper limb; Z79.01 Long term (current) use of anticoagulants; Z79.4 Long term (current) use of insulin; Z79.84 Long term (current) use of oral hypoglycemic drugs; Z79.890 Hormone replacement therapy; Z79.899 Other long term (current) drug therapy; Z88.2 Allergy status to sulfonamides; Z88.1 Allergy status to other antibiotic agents; Z87.01 Personal history of pneumonia (recurrent); Z90.710 Acquired absence of both cervix and uterus; Z98.41 Cataract extraction status, right eye; Z98.42 Cataract extraction status, left eye; Z96.1 Presence of intraocular lens; Z85.828 Personal history of other malignant neoplasm of skin; Z86.73 Personal history of transient ischemic attack (TIA), and cerebral infarction without residual deficits; Z82.49 Family history of ischemic heart disease and other diseases of the circulatory system; Z80.6 Family history of leukemia; Z80.0 Family history of malignant neoplasm of digestive organs
CPT/HCPCS: 99285; 96361 ×2; 96374; 36415; 94640; 94760; 93005; 80053; 80048 ×2; 83735 ×2; 84484; 85025 ×3; 85610; 85730; 71045; G0378 ×4; J1885

== ENCOUNTER 2021-09-12 10:18 | Emergency (ER) | payer MEDICARE, OTHER ==
[2021-09-12 10:24] VITALS: PULSE 72; RESP 18; TEMP 98.1
[2021-09-12 10:27] LABS: Glucose,Whole Blood 158 mg/dL (75-99)
[2021-09-12] MEDS ORDERED: HYDROmorphone 0.5 MG/0.5 ML SYRINGE IVP STA (10:45)
[2021-09-12 11:17] LABS: Basophils % (A) 0 %; Eosinophils # (A) 0.3 k/uL (0-0.7); Eosinophils % (A) 5 %; HCT 34.8 % (34.0-46.0); HGB 11.2 gm/dL (11.4-16.0); Lymphocytes # (A) 0.9 k/uL (1.0-4.8); Lymphocytes % (A) 13 %; MCH 28.9 pg (25.0-35.0); MCHC 32.1 g/dL (31.0-37.0); Mean Platelet Volume 7.6; Monocytes # (A) 0.8 k/uL (0-1.0); Monocytes % (A) 11 %; Neutrophils # (A) 4.8 k/uL (1.3-7.7); Neutrophils % (A) 68 %; Platelet Count 252 k/uL (150-450); RBC 3.87 m/uL (3.80-5.40); RDW 14.9 % (11.5-15.5); WBC 7.1 k/uL (3.8-10.6)
--- NOTE | 2021-09-12 11:21 | CT ---
EXAMINATION TYPE: CT brain wo con DATE OF EXAM: 09/12/2021 HISTORY: Headache. CT DLP: 1188.3 mGycm. Automated Exposure Control for Dose Reduction was Utilized. TECHNIQUE: CT scan of the head is performed without contrast. COMPARISON: CT brain August 30, 2021. FINDINGS: There is no acute intracranial hemorrhage or midline shift identified. There is mild to m oderate diffuse ventricular and sulcal prominence consistent with diffuse age-related cerebral atroph y. There is mild low-attenuation in the periventricular white matter consistent with chronic small v essel ischemic change. Bilateral basal ganglia calcifications are redemonstrated. Some artifact at s kull base limits evaluation at this level on current study The globes are intact and the visualized s inuses are clear. IMPRESSION: No acute intracranial hemorrhage or midline shift. There is mild to moderate diffuse ag e-related cerebral atrophy and mild chronic small vessel ischemic change redemonstrated. No signific ant change from recent CT.
[2021-09-12 11:25] LABS: Albumin 3.6 g/dL (3.5-5.0); Calcium 9.1 mg/dL (8.4-10.2); Potassium 4.4 mmol/L (3.5-5.1); Total Bilirubin 0.6 mg/dL (0.2-1.3); Total Protein 6.5 g/dL (6.3-8.2)
[2021-09-12 11:27] VITALS: BP 143/67
--- NOTE | 2021-09-12 11:36 | ED ---
General Adult HPI - General Chief complaint: Headache Stated complaint: Headache, Anxiety, Difficulty Breathing Time Seen by Provider: 09/12/21 10:20 Source: patient, EMS, RN notes reviewed, old records reviewed Mode of arrival: EMS Limitations: no limitations - History of Present Illness Initial comments: This is an 81-year-old female presents emergency Department complains of a headache. She states became much worse at about 4:00 yesterday afternoon. Patient states she was up all night because the headache was pretty bad. Patient states started about 2 weeks ago and she's had intermittent episodes of severe headache she states was the same as last night. Patient denies any nausea vomiting. Patient denies any numbness weakness. Patient denies any visual disturbance or speech disturbance. Patient states 3 weeks ago she had COVID. Patient denies any recent fever chills or cough per patient denies any difficulty breathing or shortness of breath per patient denies any chest pain. Patient denies any injury or trauma. - Related Data Home Medications Medication Instructions Recorded Confirmed Atorvastatin [Lipitor] 80 mg PO HS 06/30/18 09/02/21 hydrALAZINE HCL [Apresoline] 100 mg PO TID 01/06/19 09/02/21 lisinopriL 40 mg PO DAILY 01/06/19 09/02/21 Insulin NPL/Insulin Lispro 20 unit SQ W/SUPPER 05/30/20 09/02/21 [humaLOG MIX 75-25 VIAL] Insulin NPL/Insulin Lispro 30 unit SQ W/BRKFST 06/05/20 09/02/21 [humaLOG MIX 75-25 VIAL] Albuterol Sulfate [Proair Hfa] 2 puff INHALATION RT-Q6H PRN 07/19/20 09/02/21 Ergocalciferol [Vitamin D2 50,000 unit PO TU 07/19/20 09/02/21 (DRISDOL)] Pioglitazone [Actos] 15 mg PO DAILY 09/13/20 09/02/21 Acetaminophen [Tylenol Extra 500 - 1,000 mg PO Q8H PRN 10/14/20 09/02/21 Strength] Ferrous Sulfate [Feosol] 325 mg PO DAILY 04/01/21 09/02/21 Gabapentin [Neurontin] 100 mg PO DAILY 04/01/21 09/02/21 Potassium Chloride ER [K-Dur 20] 20 meq PO W/BRKFST 08/06/21 09/02/21 Furosemide [Lasix] 20 mg PO DAILY 08/30/21 09/02/21 Sertraline [Zoloft] 25 mg PO DAILY 08/30/21 09/02/21 Previous Rx's Medication Instructions Recorded Apixaban [Eliquis] 5 mg PO BID #60 tab 07/04/18 Levothyroxine Sodium [Synthroid] 125 mcg PO DAILY #30 tab 01/08/19 carvediloL [Coreg*] 12.5 mg PO BID-W/MEALS #60 tab 05/11/21 Baclofen [Lioresal] 5 mg PO TID PRN #90 tab 07/31/21 Melatonin 10 mg PO HS tablet 08/12/21 amLODIPine [Norvasc] 10 mg PO HS #30 tab 08/12/21 polyethylene glycoL 3350 [Miralax] 17 gm PO DAILY packet 08/12/21 Meclizine [Antivert] 25 mg PO TID PRN #60 tab 09/05/21 Allergies Allergy/AdvReac Type Severity Reaction Status Date / Time azithromycin Allergy Rash/Hives Verified 09/02/21 17:29 [From Zithromax Z-Jeanmarie] methylprednisolone Allergy Rash/Hives Verified 09/02/21 17:29 [From Medrol] trimethoprim [From Bactrim] Allergy Rash/Hives Verified 09/02/21 17:29 hydrochlorothiazide AdvReac lost Verified 09/02/21 17:29 balance and fell sulfamethoxazole AdvReac Rash/Hives Verified 09/02/21 17:29 [From Bactrim] Review of Systems ROS Statement: Those systems with pertinent positive or pertinent negative responses have been documented in the HPI. ROS Other: All systems not noted in ROS Statement are negative. Past Medical History Past Medical History: Atrial Fibrillation, Cancer, Heart Failure, COPD, Diabetes Mellitus, Hyperlipidemia, Osteoarthritis (OA), Pneumonia, Sleep Apnea/CPAP/BIP AP, Thyroid Disorder Additional Past Medical History / Comment(s): Stage III Kidney Disease, hx Pneumonia with Sepsis, no CPAP use, Vitamin D Deficiency, chronic low back pain, frequent constipation, hx skin cancer, neuropathy History of Any Multi-Drug Resistant Organisms: None Reported Past Surgical History: Adenoidectomy, Back Surgery, Bariatric Surgery, Cholecystectomy, Heart Catheterization, Hysterectomy, Tonsillectomy Additional Past Surgical History / Comment(s): Cardiac caths , lap band placed/since removed, low back surgery, L carpal tunnel release X2, skin cancer removal, colonoscopies, bilateral cataract removals/lens implants. Past Anesthesia/Blood Transfusion Reactions: Previous Problems w/ Anesthesia Additional Past Anesthesia/Blood Transfusion Reaction / Comment(s): "Had too much anesthesia in 2007 for lap band removal, had to be bagged." Past Psychological History: Depression Smoking Status: Never smoker Past Alcohol Use History: None Reported Past Drug Use History: None Reported - Past Family History Sister(s) Family Medical History: Myocardial Infarction ([place]) Brother(s) Family Medical History: Cancer Additional Family Medical History / Comment(s): Colon Cancer. Mother Family Medical History: Dementia Additional Family Medical History / Comment(s): Mother of dementia at the age of 89yrs. Father Family Medical History: Cancer Additional Family Medical History / Comment(s): Pt states her father was treated for a sinus infection but really had leukemia and of this at the age of 72 yrs. General Exam - General Exam Comments Initial Comments: GENERAL: Patient is well-developed and well-nourished. Patient is nontoxic and well- hydrated and is in mild distress. ENT: Neck is soft and supple. No significant lymphadenopathy is noted. Oropharynx is clear. Moist mucous membranes. Neck has full range of motion without eliciting any pain. EYES: The sclera were anicteric and conjunctiva were pink and moist. Extraocular movements were intact and pupils were equal round and reactive to light. Eyel ids were unremarkable. PULMONARY: Unlabored respirations. Good breath sounds bilaterally. No audible rales rhonchi or wheezing was noted. CARDIOVASCULAR: There is a regular rate and rhythm without any murmurs gallops or rubs. ABDOMEN: Soft and nontender with normal bowel sounds. SKIN: Skin is clear with no lesions or rashes and otherwise unremarkable. NEUROLOGIC: Patient is alert and oriented x3. Cranial nerves II through XII are grossly intact. Motor and sensory are also intact. Normal speech, volume and content. Symmetrical smile. MUSCULOSKELETAL: Normal extremities with adequate strength and full range of motion. LYMPHATICS: No significant lymphadenopathy is noted PSYCHIATRIC: Normal psychiatric evaluation. Limitations: no limitations Course Vital Signs 09/12/21 09/12/21 10:19 11:27 Temperature 98.1 F Pulse Rate 72 72 Respiratory 18 18 Rate Blood Pressure 173/81 143/67 O2 Sat by Pulse 98 97 Oximetry Medical Decision Making - Medical Decision Making Patient received Dilaudid and Toradol and was feeling much better went back in the room to reevaluate her and she was sleeping in bed. I woke her up she stated she felt considerably better and was ready to go home. CAT scan of the head shows no acute abnormality. - Lab Data Result diagrams: 09/12/21 10:50 09/12/21 10:50 Lab Results 09/12/21 09/12/21 09/12/21 Range/Units 10:25 10:50 10:50 WBC 7.1 (3.8-10.6) k/uL RBC 3.87 (3.80-5.40) m/uL Hgb 11.2 L (11.4-16.0) gm/dL Hct 34.8 (34.0-46.0) % MCV 90.0 (80.0-100.0) fL MCH 28.9 (25.0-35.0) pg MCHC 32.1 (31.0-37.0) g/dL RDW 14.9 (11.5-15.5) % Plt Count 252 (150-450) k/uL MPV 7.6 Neutrophils % 68 % Lymphocytes % 13 % Monocytes % 11 % Eosinophils % 5 % Basophils % 0 % Neutrophils # 4.8 (1.3-7.7) k/uL Lymphocytes # 0.9 L (1.0-4.8) k/uL Monocytes # 0.8 (0-1.0) k/uL Eosinophils # 0.3 (0-0.7) k/uL Basophils # 0.0 (0-0.2) k/uL Sodium 139 (137-145) mmol/L Potassium 4.4 (3.5-5.1) mmol/L Chloride 105 (98-107) mmol/L Carbon Dioxide 26 (22-30) mmol/L Anion Gap 8 mmol/L BUN 25 H (7-17) mg/dL Creatinine 1.30 H (0.52-1.04) mg/dL Est GFR (CKD-EPI)AfAm 45 (>60 ml/min/1.73 sqM) Est GFR (CKD-EPI)NonAf 39 (>60 ml/min/1.73 sqM) Glucose 159 H (74-99) mg/dL POC Glucose (mg/dL) 158 H (75-99) mg/dL POC Glu [employer] Calcium 9.1 (8.4-10.2) mg/dL Total Bilirubin 0.6 (0.2-1.3) mg/dL AST 29 (14-36) U/L ALT 23 (4-34) U/L Alkaline Phosphatase 84 (38-126) U/L Total Protein 6.5 (6.3-8.2) g/dL Albumin 3.6 (3.5-5.0) g/dL Disposition Clinical Impression: Headache Disposition: HOME SELF-CARE Condition: Good Instructions (If sedation given, give patient instructions): Acute Headache (ED) Is patient prescribed a controlled substance at d/c from ED?: No Referrals: Dontae Dawn MD [Primary Care Provider] - 1-2 days Time of Disposition: 12:49
[2021-09-12] MEDS ORDERED: KETOROLAC 30 MG/ML 1 ML VIAL IVP STA (11:39)
[2021-09-12] MEDS ORDERED: ACETAMINOPHEN TAB 500 MG TAB PO STA (11:59)
== END 2021-09-12 13:11 | disposition home or self-care (01) ==
LOC: EC 10:18
DX: R51.9 Headache, unspecified (principal); I48.91 Unspecified atrial fibrillation; I50.9 Heart failure, unspecified; J44.9 Chronic obstructive pulmonary disease, unspecified; E78.5 Hyperlipidemia, unspecified; M19.90 Unspecified osteoarthritis, unspecified site; E07.9 Disorder of thyroid, unspecified; E11.22 Type 2 diabetes mellitus with diabetic chronic kidney disease; N18.30 Chronic kidney disease, stage 3 unspecified; F32.A Depression, unspecified; Z79.4 Long term (current) use of insulin; Z79.01 Long term (current) use of anticoagulants; Z88.1 Allergy status to other antibiotic agents; Z88.2 Allergy status to sulfonamides; Z98.84 Bariatric surgery status; Z90.49 Acquired absence of other specified parts of digestive tract; Z90.710 Acquired absence of both cervix and uterus; Z85.828 Personal history of other malignant neoplasm of skin
CPT/HCPCS: 99284; 96374; 96375; 36415; 80053; 85025; 70450; J1885; J1170

== ENCOUNTER 2021-09-24 19:05 | Emergency (ER) | payer MEDICARE, OTHER ==
[2021-09-24 19:12] VITALS: TEMP 97.8
[2021-09-24] MEDS ORDERED: ONDANSETRON 4 MG/2 ML VIAL IVP STA (19:38)
[2021-09-24] MEDS ORDERED: MORPHINE SULFATE 4 MG/ML SYRINGE IVP STA (19:38)
--- NOTE | 2021-09-24 19:45 | ED ---
General Adult HPI - General Chief complaint: Shortness of Breath Stated complaint: ROBBY Time Seen by Provider: 09/24/21 19:24 Source: patient Mode of arrival: wheelchair Limitations: no limitations - History of Present Illness Initial comments: 81 year-old female patient presents to the emergency department for evaluation of headache and shortness of breath. States that symptoms started two days ago. Denies any head injury. Denies this being the worst headache of her life. Reports mild onset with gradual worsening. States the pain is over the top of h er head. Denies blurred or double vision. States she took tylenol without relief. States she also feels short of breath. She is breathing fast and reports tingling in her bilateral hands. She denies weakness in arms or legs. She does take Eliquis. She denies any chest pain. Patient denies any recent rash, fever, chills, cough, abdominal pain, nausea, vomiting, diarrhea, constipation, back pain, hematuria, dysuria, urinary urgency, urinary frequency, or any other complaints. - Related Data Home Medications Medication Instructions Recorded Confirmed Atorvastatin [Lipitor] 80 mg PO HS 06/30/18 09/02/21 hydrALAZINE HCL [Apresoline] 100 mg PO TID 01/06/19 09/02/21 lisinopriL 40 mg PO DAILY 01/06/19 09/02/21 Insulin NPL/Insulin Lispro 20 unit SQ W/SUPPER 05/30/20 09/02/21 [humaLOG MIX 75-25 VIAL] Insulin NPL/Insulin Lispro 30 unit SQ W/BRKFST 06/05/20 09/02/21 [humaLOG MIX 75-25 VIAL] Albuterol Sulfate [Proair Hfa] 2 puff INHALATION RT-Q6H PRN 07/19/20 09/02/21 Ergocalciferol [Vitamin D2 50,000 unit PO TU 07/19/20 09/02/21 (DRISDOL)] Pioglitazone [Actos] 15 mg PO DAILY 09/13/20 09/02/21 Acetaminophen [Tylenol Extra 500 - 1,000 mg PO Q8H PRN 10/14/20 09/02/21 Strength] Ferrous Sulfate [Feosol] 325 mg PO DAILY 04/01/21 09/02/21 Gabapentin [Neurontin] 100 mg PO DAILY 04/01/21 09/02/21 Potassium Chloride ER [K-Dur 20] 20 meq PO W/BRKFST 08/06/21 09/02/21 Furosemide [Lasix] 20 mg PO DAILY 08/30/21 09/02/21 Sertraline [Zoloft] 25 mg PO DAILY 08/30/21 09/02/21 Previous Rx's Medication Instructions Recorded Apixaban [Eliquis] 5 mg PO BID #60 tab 07/04/18 Levothyroxine Sodium [Synthroid] 125 mcg PO DAILY #30 tab 01/08/19 carvediloL [Coreg*] 12.5 mg PO BID-W/MEALS #60 tab 05/11/21 Baclofen [Lioresal] 5 mg PO TID PRN #90 tab 07/31/21 Melatonin 10 mg PO HS tablet 08/12/21 amLODIPine [Norvasc] 10 mg PO HS #30 tab 08/12/21 polyethylene glycoL 3350 [Miralax] 17 gm PO DAILY packet 08/12/21 Meclizine [Antivert] 25 mg PO TID PRN #60 tab 09/05/21 Allergies Allergy/AdvReac Type Severity Reaction Status Date / Time azithromycin Allergy Rash/Hives Verified 09/24/21 22:34 [From Zithromax Z-Jeanmarie] methylprednisolone Allergy Rash/Hives Verified 09/24/21 22:34 [From Medrol] sulfamethoxazole Allergy Rash/Hives Verified 09/24/21 22:34 [From Bactrim] trimethoprim [From Bactrim] Allergy Rash/Hives Verified 09/24/21 22:34 hydrochlorothiazide AdvReac lost Verified 09/24/21 22:34 balance and fell Review of Systems ROS Statement: Those systems with pertinent positive or pertinent negative responses have been documented in the HPI. ROS Other: All systems not noted in ROS Statement are negative. Past Medical History Past Medical History: Atrial Fibrillation, Cancer, Heart Failure, COPD, Diabetes Mellitus, Hyperlipidemia, Osteoarthritis (OA), Pneumonia, Sleep Apnea/CPAP/BIP AP, Thyroid Disorder Additional Past Medical History / Comment(s): Stage III Kidney Disease, hx Pneumonia with Sepsis, no CPAP use, Vitamin D Deficiency, chronic low back pain, frequent constipation, hx skin cancer, neuropathy History of Any Multi-Drug Resistant Organisms: None Reported Past Surgical History: Adenoidectomy, Back Surgery, Bariatric Surgery, Cholecystectomy, Heart Catheterization, Hysterectomy, Tonsillectomy Additional Past Surgical History / Comment(s): Cardiac caths , lap band placed/since removed, low back surgery, L carpal tunnel release X2, skin cancer removal, colonoscopies, bilateral cataract removals/lens implants. Past Anesthesia/Blood Transfusion Reactions: Previous Problems w/ Anesthesia Additional Past Anesthesia/Blood Transfusion Reaction / Comment(s): "Had too much anesthesia in 2007 for lap band removal, had to be bagged." Past Psychological History: Depression Smoking Status: Never smoker Past Alcohol Use History: None Reported Past Drug Use History: None Reported - Past Family History Sister(s) Family Medical History: Myocardial Infarction ([place]) Brother(s) Family Medical History: Cancer Additional Family Medical History / Comment(s): Colon Cancer. Mother Family Medical History: Dementia Additional Family Medical History / Comment(s): Mother of dementia at the age of 89yrs. Father Family Medical History: Cancer Additional Family Medical History / Comment(s): Pt states her father was treated for a sinus infection but really had leukemia and of this at the age of 72 yrs. General Exam Limitations: no limitations General appearance: alert, in no apparent distress, other (This is a well-dev eloped, well-nourished elderly female patient in mild distress related to pain.) Eye exam: Present: normal appearance, PERRL, EOMI. Absent: scleral icterus, conjunctival injection, nystagmus, periorbital swelling ENT exam: Present: normal exam, normal oropharynx, mucous membranes moist Respiratory exam: Present: normal lung sounds bilaterally. Absent: respiratory distress, wheezes, rales, rhonchi, stridor Cardiovascular Exam: Present: regular rate, normal rhythm, normal heart sounds. Absent: systolic murmur, diastolic murmur, rubs, gallop, clicks GI/Abdominal exam: Present: soft, normal bowel sounds. Absent: distended, tenderness, guarding, rebound, rigid Neurological exam: Present: alert, oriented X3, CN II-XII intact Expanded Speech: Present: fluid speech Cranial nerves: EOM's Intact: Normal, Nystagmus: Normal Cerebellar function: Finger to Nose: Normal Motor strength exam: RUE: 5, LUE: 5, RLE: 5, LLE: 5 Psychiatric exam: Present: normal affect, normal mood Skin exam: Present: warm, dry, intact, normal color. Absent: rash Course Vital Signs 09/24/21 09/24/21 09/24/21 19:09 19:37 20:26 Temperature 97.8 F Pulse Rate 96 85 69 Respiratory 24 20 18 Rate Blood Pressure 211/92 195/86 163/60 O2 Sat by Pulse 98 98 97 Oximetry 09/24/21 09/24/21 09/24/21 21:04 21:33 22:32 Temperature Pulse Rate 77 72 70 Respiratory 18 18 18 Rate Blood Pressure 167/82 161/81 146/74 O2 Sat by Pulse 97 94 L 95 Oximetry EKG Findings - EKG Comments: EKG Findings:: EKG obtained in 1957 shows sinus rhythm with PACs. Incomplete r ight bundle branch block. Ventricular rate is 80, VT interval 138, QRS duration 114, QT 424, QTC 489. No evidence of ST elevation or depression. Medical Decision Making - Medical Decision Making 81-year-old female patient presented to the emergency department today for evaluation of headache and shortness of breath. Patient is quite anxious. Physical examination is unremarkable. She is neurologically intact with no focal deficits. This is her third visit this month for similar symptoms. She has had 2 negative CTs of the brain. Labs reviewed and are unremarkable. She is given IV dose of morphine and Zofran and subsequent dose of Ativan. Upon reevaluation she is resting comfortable states her headache is completely resolved. I did discuss results with her. She'll be discharged follow-up with her primary care physician for recheck in 1-2 days. Return parameters were discussed in detail. She verbalizes understanding and agrees with this plan. My attending is Dr. Ferguson. - Lab Data Result diagrams: 09/24/21 19:45 09/24/21 19:45 Lab Results 09/24/21 09/24/21 09/24/21 Range/Units 19:45 19:45 19:45 WBC 9.3 (3.8-10.6) k/uL RBC 4.20 (3.80-5.40) m/uL Hgb 12.1 (11.4-16.0) gm/dL Hct 38.8 (34.0-46.0) % MCV 92.4 (80.0-100.0) fL MCH 28.9 (25.0-35.0) pg MCHC 31.3 (31.0-37.0) g/dL RDW 15.2 (11.5-15.5) % Plt Count 262 (150-450) k/uL MPV 8.4 Hypochromasia Slight PT 11.0 (9.0-12.0) sec INR 1.0 (<1.2) APTT 26.3 (22.0-30.0) sec Sodium 135 L (137-145) mmol/L Potassium 3.7 (3.5-5.1) mmol/L Chloride 102 (98-107) mmol/L Carbon Dioxide 21 L (22-30) mmol/L Anion Gap 12 mmol/L BUN 22 H (7-17) mg/dL Creatinine 1.30 H (0.52-1.04) mg/dL Est GFR (CKD-EPI)AfAm 45 (>60 ml/min/1.73 sqM) Est GFR (CKD-EPI)NonAf 39 (>60 ml/min/1.73 sqM) Glucose 218 H (74-99) mg/dL Plasma Lactic Acid Terry (0.7-2.0) mmol/L Calcium 9.2 (8.4-10.2) mg/dL Magnesium 1.8 (1.6-2.3) mg/dL Total Bilirubin 0.5 (0.2-1.3) mg/dL AST 33 (14-36) U/L ALT 24 (4-34) U/L Alkaline Phosphatase 110 (38-126) U/L C-Reactive Protein <0.5 (<1.0) mg/dL Total Protein 7.3 (6.3-8.2) g/dL Albumin 4.1 (3.5-5.0) g/dL Coronavirus (PCR) (Not Detectd) 09/24/21 09/24/21 Range/Units 19:45 19:45 WBC (3.8-10.6) k/uL RBC (3.80-5.40) m/uL Hgb (11.4-16.0) gm/dL Hct (34.0-46.0) % MCV (80.0-100.0) fL MCH (25.0-35.0) pg MCHC (31.0-37.0) g/dL RDW (11.5-15.5) % Plt Count (150-450) k/uL MPV Hypochromasia PT (9.0-12.0) sec INR (<1.2) APTT (22.0-30.0) sec Sodium (137-145) mmol/L Potassium (3.5-5.1) mmol/L Chloride (98-107) mmol/L Carbon Dioxide (22-30) mmol/L Anion Gap mmol/L BUN (7-17) mg/dL Creatinine (0.52-1.04) mg/dL Est GFR (CKD-EPI)AfAm (>60 ml/min/1.73 sqM) Est GFR (CKD-EPI)NonAf (>60 ml/min/1.73 sqM) Glucose (74-99) mg/dL Plasma Lactic Acid Terry 2.4 H* (0.7-2.0) mmol/L Calcium (8.4-10.2) mg/dL Magnesium (1.6-2.3) mg/dL Total Bilirubin (0.2-1.3) mg/dL AST (14-36) U/L ALT (4-34) U/L Alkaline Phosphatase (38-126) U/L C-Reactive Protein (<1.0) mg/dL Total Protein (6.3-8.2) g/dL Albumin (3.5-5.0) g/dL Coronavirus (PCR) Not Detected (Not Detectd) - Radiology Data Radiology results: report reviewed, image reviewed One view x-ray of the chest is obtained. Report was reviewed in its entirety. Impression by Dr. Polanco shows no acute cardio pulmonary disease/process. Disposition Clinical Impression: Headache, Anxiety Disposition: HOME SELF-CARE Condition: Good Instructions (If sedation given, give patient instructions): Acute Headache (ED), Anxiety (ED) Additional Instructions: Follow-up with her primary care physician for recheck as soon as possible. Return to the emergency department immediately for any new, worsening, or concerning symptoms. Is patient prescribed a controlled substance at d/c from ED?: No Referrals: Marianela Sheppard MD [Primary Care Provider] - 1-2 days Time of Disposition: 22:37
[2021-09-24 20:12] LABS: Partial Thromboplastin Time 26.3 sec (22.0-30.0)
[2021-09-24 20:26] LABS: ALT 24 U/L (4-34); AST 33 U/L (14-36); African American GFR (CKD) 45 (>60 ml/min/1.73 sqM); Albumin 4.1 g/dL (3.5-5.0); Alkaline Phosphatase 110 U/L (38-126); Anion Gap 12 mmol/L; Blood Urea Nitrogen 22 mg/dL (7-17); C Reactive Protein <0.5 mg/dL (<1.0); Calcium 9.2 mg/dL (8.4-10.2); Carbon Dioxide 21 mmol/L (22-30); Chloride 102 mmol/L (98-107); Glucose 218 mg/dL (74-99); Magnesium 1.8 mg/dL (1.6-2.3); Non-African American GFR(CKD) 39 (>60 ml/min/1.73 sqM); Potassium 3.7 mmol/L (3.5-5.1); Sodium 135 mmol/L (137-145); Total Bilirubin 0.5 mg/dL (0.2-1.3); Total Protein 7.3 g/dL (6.3-8.2)
[2021-09-24 20:28] VITALS: RESP 18
[2021-09-24] MEDS ORDERED: LORazepam 2 MG/ML INJ IV STA (20:48)
--- NOTE | 2021-09-24 21:19 | XR ---
EXAMINATION TYPE: XR chest 1V portable DATE OF EXAM: 09/24/2021 9:09 PM COMPARISON:Chest radiographs from 09/02/2021 TECHNIQUE: Frontal view of the chest. CLINICAL INDICATION:Female, 81 years old with history of Suspected COVID-19 pneumonia; FINDINGS: Lungs/Pleura: There is no evidence of pleural effusion, focal consolidation, or pneumothorax. Pulmonary vascularity: Unremarkable. Heart/mediastinum: Cardiomediastinal silhouette is enlarged and stable. Musculoskeletal: No acute osseous pathology. IMPRESSION: No acute cardiopulmonary disease/process.
[2021-09-24] MEDS ORDERED: SODIUM CHLORIDE 0.9% 500 ML 500 ML IV ONE (21:28)
[2021-09-24 22:07] LABS: HCT 38.8 % (34.0-46.0); HGB 12.1 gm/dL (11.4-16.0); Hypochromasia Slight; MCH 28.9 pg (25.0-35.0); MCHC 31.3 g/dL (31.0-37.0); MCV 92.4 fL (80.0-100.0); Mean Platelet Volume 8.4; Platelet Count 262 k/uL (150-450); RDW 15.2 % (11.5-15.5); WBC 9.3 k/uL (3.8-10.6)
[2021-09-24 22:33] VITALS: BP 146/74; PULSE 70
[2021-09-24 22:40] LABS: Band Neutrophils % 3 %; Basophils # (M) 0.09 k/uL (0-0.2); Eosinophils # (M) 0.47 k/uL (0-0.7); Neutrophils % (M) 48 %; Nucleated Red Blood Cells 0 /100 WBC (0-0); Total Cells Counted 100
[2021-09-24 22:42] LABS: Anisocytosis (M) Present; Large Platelets Present
[2021-09-24 22:45] LABS: Poikilocytosis (M) Present
== END 2021-09-24 23:04 | disposition home or self-care (01) ==
LOC: EC 19:05
DX: F41.9 Anxiety disorder, unspecified (principal); R51.9 Headache, unspecified; Z20.822 Contact with and (suspected) exposure to COVID-19; E11.22 Type 2 diabetes mellitus with diabetic chronic kidney disease; E11.40 Type 2 diabetes mellitus with diabetic neuropathy, unspecified; I13.0 Hypertensive heart and chronic kidney disease with heart failure and stage 1 through stage 4 chronic kidney disease, or unspecified chronic kidney disease; I50.9 Heart failure, unspecified; N18.30 Chronic kidney disease, stage 3 unspecified; I48.91 Unspecified atrial fibrillation; E78.5 Hyperlipidemia, unspecified; M19.90 Unspecified osteoarthritis, unspecified site; F32.A Depression, unspecified; Z79.01 Long term (current) use of anticoagulants; Z79.890 Hormone replacement therapy; Z79.4 Long term (current) use of insulin; Z79.51 Long term (current) use of inhaled steroids; Z79.84 Long term (current) use of oral hypoglycemic drugs; Z79.899 Other long term (current) drug therapy
CPT/HCPCS: 36415; 93005; 80053; 83605; 83735; 85025; 85610; 85730; 86140; 87635; 71045; 99285; 96374; 96375 ×2; J2060; J2270; J2405

== ENCOUNTER 2021-09-25 07:13 | Emergency (ER) | payer MEDICARE, OTHER ==
[2021-09-25 07:33] VITALS: BP 170/80; PULSE 88; RESP 18; TEMP 97.7
--- NOTE | 2021-09-25 07:57 | ED ---
General Adult HPI - General Chief complaint: Fall Stated complaint: Fall/leg injury Time Seen by Provider: 09/25/21 07:33 Source: patient, RN notes reviewed Mode of arrival: wheelchair Limitations: physical limitation - History of Present Illness Initial comments: Patient is a pleasant 81-year-old female presenting to the emergency Department with right knee pain. Patient was walking at home yesterday when she slipped on the snow. Patient landed on her right knee. Patient has had discomfort since that time. Discomfort increases with walking and touch. No other area of injury. No head injury or loss of consciousness. No neck or back pain. No chest pain or dyspnea. No abdominal pain. No history of chronic knee problems. - Related Data Home Medications Medication Instructions Recorded Confirmed Atorvastatin [Lipitor] 80 mg PO HS 06/30/18 09/24/21 hydrALAZINE HCL [Apresoline] 100 mg PO TID 01/06/19 09/24/21 lisinopriL 40 mg PO DAILY 01/06/19 09/24/21 Insulin NPL/Insulin Lispro 20 unit SQ W/SUPPER 05/30/20 09/24/21 [humaLOG MIX 75-25 VIAL] Insulin NPL/Insulin Lispro 30 unit SQ W/BRKFST 06/05/20 09/24/21 [humaLOG MIX 75-25 VIAL] Ergocalciferol [Vitamin D2 50,000 unit PO TU 07/19/20 09/24/21 (DRISDOL)] Pioglitazone [Actos] 15 mg PO DAILY 09/13/20 09/24/21 Potassium Chloride ER [K-Dur 20] 20 meq PO W/BRKFST 08/06/21 09/24/21 Furosemide [Lasix] 20 mg PO DAILY 08/30/21 09/24/21 Sertraline [Zoloft] 25 mg PO DAILY 08/30/21 09/24/21 Albuterol Nebulized [Ventolin 2.5 mg INHALATION RT-QID PRN 09/24/21 09/24/21 Nebulized] Artificial Tears-Hypromellose 1 drop BOTH EYES TID PRN 09/24/21 09/24/21 [Artificial Tear Drops] Aspirin/Acetaminophen/Caffeine 2 tab PO DAILY PRN 09/24/21 09/24/21 [Excedrin Extra Strength Caplet] Docusate [Colace] 100 mg PO DAILY 09/24/21 09/24/21 Elderberry Fruit and Flower [Black 1 cap PO DAILY 09/24/21 09/24/21 Elderberry 575 mg Cap] Isosorbide Mononitrate ER [Imdur] 60 mg PO DAILY 09/24/21 09/24/21 Magnesium Oxide [Pierce] 500 mg PO DAILY 09/24/21 09/24/21 Melatonin 5 mg PO HS 09/24/21 09/24/21 Multivit-Min/Iron/Folic/Lutein 1 tab PO DAILY 09/24/21 09/24/21 [Centrum Silver Women Tablet] amLODIPine [Norvasc] 5 mg PO HS 09/24/21 09/24/21 Previous Rx's Medication Instructions Recorded Apixaban [Eliquis] 5 mg PO BID #60 tab 07/04/18 Levothyroxine Sodium [Synthroid] 125 mcg PO DAILY #30 tab 01/08/19 carvediloL [Coreg*] 12.5 mg PO BID-W/MEALS #60 tab 05/11/21 polyethylene glycoL 3350 [Miralax] 17 gm PO DAILY packet 08/12/21 Meclizine [Antivert] 25 mg PO TID PRN #60 tab 09/05/21 Allergies Allergy/AdvReac Type Severity Reaction Status Date / Time azithromycin Allergy Rash/Hives Verified 09/25/21 07:32 [From Zithromax Z-Jeanmarie] methylprednisolone Allergy Rash/Hives Verified 09/25/21 07:32 [From Medrol] sulfamethoxazole Allergy Rash/Hives Verified 09/25/21 07:32 [From Bactrim] trimethoprim [From Bactrim] Allergy Rash/Hives Verified 09/25/21 07:32 hydrochlorothiazide AdvReac lost Verified 09/25/21 07:32 balance and fell Review of Systems ROS Statement: Those systems with pertinent positive or pertinent negative responses have been documented in the HPI. ROS Other: All systems not noted in ROS Statement are negative. Constitutional: Denies: fever Eyes: Denies: eye pain ENT: Denies: ear pain Respiratory: Denies: cough Cardiovascular: Denies: chest pain Endocrine: Denies: fatigue Gastrointestinal: Denies: abdominal pain Genitourinary: Denies: dysuria Musculoskeletal: Reports: as per HPI Skin: Denies: rash Neurological: Denies: weakness Past Medical History Past Medical History: Atrial Fibrillation, Cancer, Heart Failure, COPD, Diabetes Mellitus, Hyperlipidemia, Osteoarthritis (OA), Pneumonia, Sleep Apnea/CPAP/BIPAP, Thyroid Disorder Additional Past Medical History / Comment(s): Stage III Kidney Disease, hx Pneumonia with Sepsis, no CPAP use, Vitamin D Deficiency, chronic low back pain, frequent constipation, hx skin cancer, neuropathy History of Any Multi-Drug Resistant Organisms: None Reported Past Surgical History: Adenoidectomy, Back Surgery, Bariatric Surgery, Cholecystectomy, Heart Catheterization, Hysterectomy, Tonsillectomy Additional Past Surgical History / Comment(s): Cardiac caths , lap band placed/since removed, low back surgery, L carpal tunnel release X2, skin cancer removal, colonoscopies, bilateral cataract removals/lens implants. Past Anesthesia/Blood Transfusion Reactions: Previous Problems w/ Anesthesia Additional Past Anesthesia/Blood Transfusion Reaction / Comment(s): "Had too much anesthesia in 2007 for lap band removal, had to be bagged." Past Psychological History: Depression Smoking Status: Never smoker Past Alcohol Use History: None Reported Past Drug Use History: None Reported - Past Family History Sister(s) Family Medical History: Myocardial Infarction ([place]) Brother(s) Family Medical History: Cancer Additional Family Medical History / Comment(s): Colon Cancer. Mother Family Medical History: Dementia Additional Family Medical History / Comment(s): Mother of dementia at the age of 89yrs. Father Family Medical History: Cancer Additional Family Medical History / Comment(s): Pt states her father was treated for a sinus infection but really had leukemia and of this at the age of 72 yrs. General Exam Limitations: physical limitation General appearance: alert, in no apparent distress Head exam: Present: atraumatic, normocephalic Eye exam: Present: normal appearance, PERRL, EOMI ENT exam: Present: normal oropharynx Neck exam: Present: normal inspection. Absent: tenderness Respiratory exam: Present: normal lung sounds bilaterally Cardiovascular Exam: Present: regular rate, normal rhythm, systolic murmur (Paula ent states chronic) GI/Abdominal exam: Present: soft. Absent: tenderness Extremities exam: Present: tenderness (Anterior near the proximal fibula). Absent: calf tenderness Back exam: Present: normal inspection Neurological exam: Present: alert. Absent: motor sensory deficit Psychiatric exam: Present: normal affect, normal mood Skin exam: Present: normal color Course Vital Signs 09/25/21 07:28 Temperature 97.7 F Pulse Rate 88 Respiratory 18 Rate Blood Pressure 170/80 O2 Sat by Pulse 97 Oximetry Medical Decision Making - Medical Decision Making Patient reevaluated and updated. - Radiology Data Radiology results: image reviewed (Right knee x-ray reveals no acute abnormality or fracture) Disposition Clinical Impression: Fall, Knee contusion Disposition: HOME SELF-CARE Condition: Stable Instructions (If sedation given, give patient instructions): Fall Prevention for Older Adults (ED), Knee Pain (ED) Additional Instructions: Please follow-up with primary care physician in the next couple days for recheck. Ice to affected area. Use Samm wrap. If symptoms continue consider orthopedic follow-up. Return for increased pain, swelling, worsening or changing symptoms or other concerns. Is patient prescribed a controlled substance at d/c from ED?: No Referrals: Dontae Dawn MD [Primary Care Provider] - 1-2 days Time of Disposition: 08:26
--- NOTE | 2021-09-25 08:11 | XR ---
EXAMINATION TYPE: XR knee complete RT DATE OF EXAM: 09/25/2021 CLINICAL HISTORY: Pain after slip and fall injury. TECHNIQUE: Three views of the right knee are obtained. COMPARISON: Right knee x-rays January 24, 2013. FINDINGS: There is no acute fracture/dislocation evident in right knee. Mild to moderate tricompartm ent joint space loss and spurring. Mild/moderate posterior vascular calcification. IMPRESSION: There is no acute fracture or dislocation in the right knee.
[2021-09-25] MEDS ORDERED: KETOROLAC 15 MG/ML 1 ML VIAL IM STA (08:15)
== END 2021-09-25 08:48 | disposition home or self-care (01) ==
LOC: EC 07:13
DX: S80.01XA Contusion of right knee, initial encounter (principal); I48.91 Unspecified atrial fibrillation; I50.9 Heart failure, unspecified; E11.22 Type 2 diabetes mellitus with diabetic chronic kidney disease; N18.30 Chronic kidney disease, stage 3 unspecified; J44.9 Chronic obstructive pulmonary disease, unspecified; E78.5 Hyperlipidemia, unspecified; M19.90 Unspecified osteoarthritis, unspecified site; E07.9 Disorder of thyroid, unspecified; F32.A Depression, unspecified; Z79.4 Long term (current) use of insulin; Z79.82 Long term (current) use of aspirin; Z79.01 Long term (current) use of anticoagulants; Z88.1 Allergy status to other antibiotic agents; Z88.2 Allergy status to sulfonamides; Z98.84 Bariatric surgery status; Z90.49 Acquired absence of other specified parts of digestive tract; Z90.710 Acquired absence of both cervix and uterus; W00.0XXA Fall on same level due to ice and snow, initial encounter
CPT/HCPCS: 99283; 96372; 73562; J1885

== ENCOUNTER 2021-10-24 02:57 | Inpatient (IN) | payer MEDICARE ==
[2021-10-24] MEDS ORDERED: ENALAPRILAT 1.25 MG/ML 1 ML VIAL IVP STA ×2 (03:06→05:33)
[2021-10-24] MEDS ORDERED: IPRATROPIUM-ALBUTEROL 3 ML NEB INHALATION STA (03:06)
[2021-10-24] MEDS ORDERED: methylPREDNISolone SOD SUCCI 125 MG/2 ML VIAL IV STA (03:06)
--- NOTE | 2021-10-24 03:08 | ED ---
SOB HPI - General Stated Complaint: Shortness of Breath Time Seen by Provider: 10/24/21 03:03 Source: RN notes reviewed, old records reviewed Mode of arrival: EMS Limitations: altered mental status, physical limitation - History of Present Illness Initial Comments: This is an 81-year-old female who is in severe distress called EMS for severe shortness of breath patient was mildly unresponsive on EMS arrival brought to the emergency room secondary to clinical history is unable to give a significant medical history history obtained from patient's chart and EMS MD Complaint: shortness of breath, "asthma attack", anxiety -: hour(s) Radiation: back Severity: severe Severity scale (1-10): 10 Consistency: constant Improves With: oxygen, upright position Worsens With: lying flat, exertion, movement Known History Of: COPD, asthma, congestive heart failure Context: other (none) Associated Symptoms: cough Treatments Prior to Arrival: oxygen, bronchodilator - Related Data Home Medications Medication Instructions Recorded Confirmed Atorvastatin [Lipitor] 80 mg PO HS 06/30/18 09/24/21 hydrALAZINE HCL [Apresoline] 100 mg PO TID 01/06/19 09/24/21 lisinopriL 40 mg PO DAILY 01/06/19 09/24/21 Insulin NPL/Insulin Lispro 20 unit SQ W/SUPPER 05/30/20 09/24/21 [humaLOG MIX 75-25 VIAL] Insulin NPL/Insulin Lispro 30 unit SQ W/BRKFST 06/05/20 09/24/21 [humaLOG MIX 75-25 VIAL] Ergocalciferol [Vitamin D2 50,000 unit PO TU 07/19/20 09/24/21 (DRISDOL)] Pioglitazone [Actos] 15 mg PO DAILY 09/13/20 09/24/21 Potassium Chloride ER [K-Dur 20] 20 meq PO W/BRKFST 08/06/21 09/24/21 Furosemide [Lasix] 20 mg PO DAILY 08/30/21 09/24/21 Sertraline [Zoloft] 25 mg PO DAILY 08/30/21 09/24/21 Albuterol Nebulized [Ventolin 2.5 mg INHALATION RT-QID PRN 09/24/21 09/24/21 Nebulized] Artificial Tears-Hypromellose 1 drop BOTH EYES TID PRN 09/24/21 09/24/21 [Artificial Tear Drops] Aspirin/Acetaminophen/Caffeine 2 tab PO DAILY PRN 09/24/21 09/24/21 [Excedrin Extra Strength Caplet] Docusate [Colace] 100 mg PO DAILY 09/24/21 09/24/21 Elderberry Fruit and Flower [Black 1 cap PO DAILY 09/24/21 09/24/21 Elderberry 575 mg Cap] Isosorbide Mononitrate ER [Imdur] 60 mg PO DAILY 09/24/21 09/24/21 Magnesium Oxide [Pierce] 500 mg PO DAILY 09/24/21 09/24/21 Melatonin 5 mg PO HS 09/24/21 09/24/21 Multivit-Min/Iron/Folic/Lutein 1 tab PO DAILY 09/24/21 09/24/21 [Centrum Silver Women Tablet] amLODIPine [Norvasc] 5 mg PO HS 09/24/21 09/24/21 Previous Rx's Medication Instructions Recorded Apixaban [Eliquis] 5 mg PO BID #60 tab 07/04/18 Levothyroxine Sodium [Synthroid] 125 mcg PO DAILY #30 tab 01/08/19 carvediloL [Coreg*] 12.5 mg PO BID-W/MEALS #60 tab 05/11/21 polyethylene glycoL 3350 [Miralax] 17 gm PO DAILY packet 08/12/21 Meclizine [Antivert] 25 mg PO TID PRN #60 tab 09/05/21 Allergies Allergy/AdvReac Type Severity Reaction Status Date / Time azithromycin Allergy Rash/Hives Verified 10/03/21 11:31 [From Zithromax Z-Jeanmarie] methylprednisolone Allergy Rash/Hives Verified 10/03/21 11:31 [From Medrol] sulfamethoxazole Allergy Rash/Hives Verified 10/03/21 11:31 [From Bactrim] trimethoprim [From Bactrim] Allergy Rash/Hives Verified 10/03/21 11:31 hydrochlorothiazide AdvReac lost Verified 10/03/21 11:31 balance and fell Review of Systems ROS Statement: Those systems with pertinent positive or pertinent negative responses have been documented in the HPI. ROS Other: All systems not noted in ROS Statement are negative. Past Medical History Past Medical History: Atrial Fibrillation, Cancer, Heart Failure, COPD, Diabetes Mellitus, Hyperlipidemia, Osteoarthritis (OA), Pneumonia, Sleep Apnea/CPAP/BIPAP, Thyroid Disorder Additional Past Medical History / Comment(s): Stage III Kidney Disease, hx Pneumonia with Sepsis, no CPAP use, Vitamin D Deficiency, chronic low back pain, frequent constipation, hx skin cancer, neuropathy History of Any Multi-Drug Resistant Organisms: None Reported Past Surgical History: Adenoidectomy, Back Surgery, Bariatric Surgery, Cholecystectomy, Heart Catheterization, Hysterectomy, Tonsillectomy Additional Past Surgical History / Comment(s): Cardiac caths , lap band placed/since removed, low back surgery, L carpal tunnel release X2, skin cancer removal, colonoscopies, bilateral cataract removals/lens implants. Past Anesthesia/Blood Transfusion Reactions: Previous Problems w/ Anesthesia Additional Past Anesthesia/Blood Transfusion Reaction / Comment(s): "Had too m uch anesthesia in 2007 for lap band removal, had to be bagged." Past Psychological History: Depression Smoking Status: Never smoker Past Alcohol Use History: None Reported Past Drug Use History: None Reported - Past Family History Sister(s) Family Medical History: Myocardial Infarction ([place]) Brother(s) Family Medical History: Cancer Additional Family Medical History / Comment(s): Colon Cancer. Mother Family Medical History: Dementia Additional Family Medical History / Comment(s): Mother of dementia at the age of 89yrs. Father Family Medical History: Cancer Additional Family Medical History / Comment(s): Pt states her father was treated for a sinus infection but really had leukemia and of this at the age of 72 yrs. General Exam Limitations: altered mental status General appearance: alert, anxious, lethargic, in distress, obese Head exam: Present: atraumatic, normocephalic, normal inspection Eye exam: Present: normal appearance, PERRL, EOMI. Absent: scleral icterus, conjunctival injection, periorbital swelling ENT exam: Present: normal exam, mucous membranes moist Neck exam: Present: normal inspection. Absent: tenderness, meningismus, lymphadenopathy Respiratory exam: Present: respiratory distress, rales, rhonchi, accessory muscle use, decreased breath sounds, prolonged expiratory. Absent: wheezes, stridor Cardiovascular Exam: Present: regular rate, normal rhythm, normal heart sounds. Absent: systolic murmur, diastolic murmur, rubs, gallop, clicks GI/Abdominal exam: Present: soft, normal bowel sounds. Absent: distended, tenderness, guarding, rebound, rigid Extremities exam: Present: normal inspection, full ROM, normal capillary refill. Absent: tenderness, pedal edema, joint swelling, calf tenderness Back exam: Present: normal inspection Neurological exam: Present: alert, oriented X3, CN II-XII intact Psychiatric exam: Present: normal affect, normal mood Skin exam: Present: warm, dry, intact, normal color. Absent: rash Course Vital Signs 10/24/21 10/24/21 10/24/21 03:07 03:16 03:22 Temperature 98 F Pulse Rate 98 90 85 Respiratory 32 H 26 H Rate Blood Pressure 221/111 197/102 O2 Sat by Pulse 70 L 98 Oximetry 10/24/21 10/24/21 10/24/21 03:26 03:30 03:54 Temperature 97.9 F Pulse Rate 80 73 66 Respiratory 29 H 19 Rate Blood Pressure 203/99 193/86 O2 Sat by Pulse 100 100 Oximetry - Reevaluation(s) Reevaluation #1: 10/24/21 06:18 Medical record is reviewed Reevaluation #2: 10/24/21 06:18 Patient appears to be maintaining on BiPAP with breathing treatments 10/24/21 06:18 Blood pressure is improving Reevaluation #3: 10/24/21 06:18 Patient informed of results and questions have been answered - Consultations Consultation #1: Spoke with Dr. Pastrana regarding admission she is agreeable Medical Decision Making - Medical Decision Making 81 female DF for significant severe shortness of breath on BiPAP secondary severe work of breathing and hypoxia does have severe CHF with hypertensive emergency and underlying COPD. Patient will be admitted for close monitoring and respiratory failure - Lab Data Result diagrams: 10/24/21 03:11 10/24/21 03:11 Lab Results 10/24/21 10/24/21 10/24/21 Range/Units 03:11 03:11 03:11 WBC 16.1 H (3.8-10.6) k/uL RBC 3.74 L (3.80-5.40) m/uL Hgb 10.6 L (11.4-16.0) gm/dL Hct 36.0 (34.0-46.0) % MCV 96.2 (80.0-100.0) fL MCH 28.3 (25.0-35.0) pg MCHC 29.4 L (31.0-37.0) g/dL RDW 14.0 (11.5-15.5) % Plt Count 376 (150-450) k/uL MPV 8.1 Neutrophils % 53 % Lymphocytes % 29 % Monocytes % 10 % Eosinophils % 3 % Basophils % 1 % Neutrophils # 8.5 H (1.3-7.7) k/uL Lymphocytes # 4.7 (1.0-4.8) k/uL Monocytes # 1.7 H (0-1.0) k/uL Eosinophils # 0.5 (0-0.7) k/uL Basophils # 0.2 (0-0.2) k/uL Hypochromasia Marked PT 10.6 (9.0-12.0) sec INR 1.0 (<1.2) APTT 25.8 (22.0-30.0) sec Sodium 132 L (137-145) mmol/L Potassium 4.5 (3.5-5.1) mmol/L Chloride 100 (98-107) mmol/L Carbon Dioxide 20 L (22-30) mmol/L Anion Gap 12 mmol/L BUN 26 H (7-17) mg/dL Creatinine 1.40 H (0.52-1.04) mg/dL Est GFR (CKD-EPI)AfAm 41 (>60 ml/min/1.73 sqM) Est GFR (CKD-EPI)NonAf 36 (>60 ml/min/1.73 sqM) Glucose 427 H (74-99) mg/dL Lactic Ac Sepsis Rflx Plasma Lactic Acid Terry (0.7-2.0) mmol/L Calcium 8.2 L (8.4-10.2) mg/dL Magnesium 2.3 (1.6-2.3) mg/dL Total Bilirubin 0.7 (0.2-1.3) mg/dL AST 37 H (14-36) U/L ALT 25 (4-34) U/L Alkaline Phosphatase 185 H (38-126) U/L Troponin I (0.000-0.034) ng/mL NT-Pro-B Natriuret Pep pg/mL Total Protein 7.0 (6.3-8.2) g/dL Albumin 3.9 (3.5-5.0) g/dL 10/24/21 10/24/21 10/24/21 Range/Units 03:11 03:11 03:11 WBC (3.8-10.6) k/uL RBC (3.80-5.40) m/uL Hgb (11.4-16.0) gm/dL Hct (34.0-46.0) % MCV (80.0-100.0) fL MCH (25.0-35.0) pg MCHC (31.0-37.0) g/dL RDW (11.5-15.5) % Plt Count (150-450) k/uL MPV Neutrophils % % Lymphocytes % % Monocytes % % Eosinophils % % Basophils % % Neutrophils # (1.3-7.7) k/uL Lymphocytes # (1.0-4.8) k/uL Monocytes # (0-1.0) k/uL Eosinophils # (0-0.7) k/uL Basophils # (0-0.2) k/uL Hypochromasia PT (9.0-12.0) sec INR (<1.2) APTT (22.0-30.0) sec Sodium (137-145) mmol/L Potassium (3.5-5.1) mmol/L Chloride (98-107) mmol/L Carbon Dioxide (22-30) mmol/L Anion Gap mmol/L BUN (7-17) mg/dL Creatinine (0.52-1.04) mg/dL Est GFR (CKD-EPI)AfAm (>60 ml/min/1.73 sqM) Est GFR (CKD-EPI)NonAf (>60 ml/min/1.73 sqM) Glucose (74-99) mg/dL Lactic Ac Sepsis Rflx Plasma Lactic Acid Terry 5.0 H* (0.7-2.0) mmol/L Calcium (8.4-10.2) mg/dL Magnesium (1.6-2.3) mg/dL Total Bilirubin (0.2-1.3) mg/dL AST (14-36) U/L ALT (4-34) U/L Alkaline Phosphatase (38-126) U/L Troponin I 0.029 (0.000-0.034) ng/mL NT-Pro-B Natriuret Pep 1790 pg/mL Total Protein (6.3-8.2) g/dL Albumin (3.5-5.0) g/dL 10/24/21 Range/Units 03:50 WBC (3.8-10.6) k/uL RBC (3.80-5.40) m/uL Hgb (11.4-16.0) gm/dL Hct (34.0-46.0) % MCV (80.0-100.0) fL MCH (25.0-35.0) pg MCHC (31.0-37.0) g/dL RDW (11.5-15.5) % Plt Count (150-450) k/uL MPV Neutrophils % % Lymphocytes % % Monocytes % % Eosinophils % % Basophils % % Neutrophils # (1.3-7.7) k/uL Lymphocytes # (1.0-4.8) k/uL Monocytes # (0-1.0) k/uL Eosinophils # (0-0.7) k/uL Basophils # (0-0.2) k/uL Hypochromasia PT (9.0-12.0) sec INR (<1.2) APTT (22.0-30.0) sec Sodium (137-145) mmol/L Potassium (3.5-5.1) mmol/L Chloride (98-107) mmol/L Carbon Dioxide (22-30) mmol/L Anion Gap mmol/L BUN (7-17) mg/dL Creatinine (0.52-1.04) mg/dL Est GFR (CKD-EPI)AfAm (>60 ml/min/1.73 sqM) Est GFR (CKD-EPI)NonAf (>60 ml/min/1.73 sqM) Glucose (74-99) mg/dL Lactic Ac Sepsis Rflx Y Plasma Lactic Acid Terry (0.7-2.0) mmol/L Calcium (8.4-10.2) mg/dL Magnesium (1.6-2.3) mg/dL Total Bilirubin (0.2-1.3) mg/dL AST (14-36) U/L ALT (4-34) U/L Alkaline Phosphatase (38-126) U/L Troponin I (0.000-0.034) ng/mL NT-Pro-B Natriuret Pep pg/mL Total Protein (6.3-8.2) g/dL Albumin (3.5-5.0) g/dL - EKG Data -: EKG Interpreted by Me (EKG is tachycardia 101 MD 153 QRS 127 QTC 410) - Radiology Data Radiology results: report reviewed (Chest x-ray shows significant CHF), image reviewed Critical Care Time Critical Care Time: Yes Total Critical Care Time: 31 Disposition Clinical Impression: Acute pulmonary edema, Acute exacerbation of chronic obstructive pulmonary disease, Acute respiratory failure, COPD (chronic obstructive pulmonary disease), Hypertensive emergency Disposition: ADMITTED IP TO THIS HOSP Condition: Serious Is patient prescribed a controlled substance at d/c from ED?: No Referrals: Dontae Dawn MD [Primary Care Provider] - 1-2 days
--- NOTE | 2021-10-24 03:28 | XR ---
EXAMINATION TYPE: XR chest 1V portable DATE OF EXAM: 10/24/2021 COMPARISON: 09/24/2021 HISTORY: Short of breath TECHNIQUE: FINDINGS: Heart is enlarged. There is pulmonary vascular congestion. There are chest leads. There is some blunting of the costophrenic angles. There is pulmonary mild edema. IMPRESSION: Congestive heart failure with pleural effusions. Heart failure and pleural fluid are new compared to old exam.
[2021-10-24 03:32] LABS: Basophils # (A) 0.2 k/uL (0-0.2); Basophils % (A) 1 %; Eosinophils # (A) 0.5 k/uL (0-0.7); Eosinophils % (A) 3 %; HGB 10.6 gm/dL (11.4-16.0); Hypochromasia Marked; Lymphocytes # (A) 4.7 k/uL (1.0-4.8); Lymphocytes % (A) 29 %; MCH 28.3 pg (25.0-35.0); MCHC 29.4 g/dL (31.0-37.0); MCV 96.2 fL (80.0-100.0); Mean Platelet Volume 8.1; Monocytes # (A) 1.7 k/uL (0-1.0); Monocytes % (A) 10 %; Neutrophils # (A) 8.5 k/uL (1.3-7.7); Neutrophils % (A) 53 %; Platelet Count 376 k/uL (150-450); RBC 3.74 m/uL (3.80-5.40); WBC 16.1 k/uL (3.8-10.6)
[2021-10-24 03:34] LABS: Partial Thromboplastin Time 25.8 sec (22.0-30.0); Prothrombin Time 10.6 sec (9.0-12.0)
[2021-10-24 03:38] LABS: Albumin 3.9 g/dL (3.5-5.0); Calcium 8.2 mg/dL (8.4-10.2); Magnesium 2.3 mg/dL (1.6-2.3); Potassium 4.5 mmol/L (3.5-5.1); Total Bilirubin 0.7 mg/dL (0.2-1.3)
[2021-10-24] MEDS ORDERED: NITROGLYCERIN OINT 1 INCH/GM PACKET TOPICAL STA (05:33)
[2021-10-24] MEDS ORDERED: ASPIRIN 325 MG TAB PO STA (06:13)
[2021-10-24] MEDS: FUROSEMIDE 10 MG/ML 4 ML VIAL IV SCH ×3 (06:22→21:32)
[2021-10-24] MEDS ORDERED: ALBUTEROL NEBULIZED 2.5 MG/3 ML INHALATION SCH (08:00)
[2021-10-24] MEDS: IPRATROPIUM-ALBUTEROL 3 ML NEB INHALATION SCH ×4 (08:11→19:48)
[2021-10-24] MEDS ORDERED: ALBUTEROL NEBULIZED 2.5 MG/3 ML INHALATION PRN (10:59)
[2021-10-24] MEDS ORDERED: ARTIFICIAL TEARS-HYPROMELLOSE DROPS 15 ML BTL BOTH EYES PRN (10:59)
[2021-10-24] MEDS: carvediloL 12.5 MG TAB PO SCH ×2 (11:27→17:44)
[2021-10-24] MEDS: APIXABAN 5 MG TAB PO SCH ×2 (11:27→21:32)
[2021-10-24] MEDS: lisinopriL 20 MG TAB PO SCH (11:27)
--- NOTE | 2021-10-24 11:29 | P.CNPUL ---
History of Present Illness Consult date: 10/24/21 Requesting physician: Fritz Mayen Reason for consult: dyspnea, hypoxemia, pleural effusion, abnormal CXR/CT Chief complaint: Shortness of breath. History of present illness: Pulmonary consult dated 10/24/2021. This is an 81-year-old female, initially seen in the emergency department, trauma room #1. She was initially seen by the ER physician, for shortness of breath. He does note, he mentions, EMS brought the patient to the emergency room, for severe shortness of breath. The patient apparently was mildly unresponsive or poorly responsive for EMS on arrival. The patient apparently was placed on BiPAP therapy, and improved. We are currently seeing her in the ER, on BiPAP, with settings of IPAP 14, EPAP 6, and an FiO2 of 60%. She's not receiving any IV fluids. She is being admitted for possible non-ST segment elevation myocardial infarction, respiratory failure, and congestive heart failure. The patient apparently has a history of atrial fibrillation, heart failure, COPD, diabetes mellitus, hyperlipidemia, osteoarthritis, pneumonia, sleep apnea syndrome, chronic kidney disease, stage III, neuropathy, skin cancer, and sleep apnea syndrome. She is a bit lethargic, and difficult to obtain history due to the BiPAP mask. White count 16.1, hemoglobin 10.6, hematocrit 36, platelet count 376,000. PT INR and PTT are normal. Sodium 132, potassium 4.5, chlorides 100, CO2 20, anion gap 12, BUN 26, and creatinine 1.40. Glucose 427. Initial lactic acid was fine. Repeat was 1.4. N-terminal proBNP was 1790. Initial troponin was 0.029, and subsequently, was 0.087. Chest x-ray was reviewed and shows diffuse bilateral infiltrates, and small effusions, consistent with CHF. Review of Systems REVIEW OF SYSTEMS: CONSTITUTIONAL: [Negative.] NEUROLOGIC: Mental status changes. HEENT: [ Negative.] CARDIAC: [Negative.] PULMONARY: Shortness of breath. GI: [Negative.] : [Negative.] RHEUMATOLOGIC: [ Negative.] IMMUNOLOGIC: [ Negative.] ENDOCRINE: [Negative. ] DERMATOLOGIC: [Negative.] Past Medical History Past Medical History: Atrial Fibrillation, Cancer, Heart Failure, COPD, Diabetes Mellitus, Hyperlipidemia, Osteoarthritis (OA), Pneumonia, Sleep Apnea/CPAP/BIPAP, Thyroid Disorder Additional Past Medical History / Comment(s): Stage III Kidney Disease, hx Pneumonia with Sepsis, no CPAP use, Vitamin D Deficiency, chronic low back pain, frequent constipation, hx skin cancer, neuropathy History of Any Multi-Drug Resistant Organisms: None Reported Past Surgical History: Adenoidectomy, Back Surgery, Bariatric Surgery, Cholecystectomy, Heart Catheterization, Hysterectomy, Tonsillectomy Additional Past Surgical History / Comment(s): Cardiac caths , lap band placed/since removed, low back surgery, L carpal tunnel release X2, skin cancer removal, colonoscopies, bilateral cataract removals/lens implants. Past Anesthesia/Blood Transfusion Reactions: Previous Problems w/ Anesthesia Additional Past Anesthesia/Blood Transfusion Reaction / Comment(s): "Had too much anesthesia in 2007 for lap band removal, had to be bagged." Past Psychological History: Depression Smoking Status: Never smoker Past Alcohol Use History: None Reported Past Drug Use History: None Reported - Past Family History Sister(s) Family Medical History: Myocardial Infarction ([place]) Brother(s) Family Medical History: Cancer Additional Family Medical History / Comment(s): Colon Cancer. Mother Family Medical History: Dementia Additional Family Medical History / Comment(s): Mother of dementia at the age of 89yrs. Father Family Medical History: Cancer Additional Family Medical History / Comment(s): Pt states her father was treated for a sinus infection but really had leukemia and of this at the age of 72 yrs. Medications and Allergies Home Medications Medication Instructions Recorded Confirmed Type Atorvastatin [Lipitor] 80 mg PO HS 06/30/18 10/24/21 History Apixaban [Eliquis] 5 mg PO BID #60 tab 07/04/18 10/24/21 Rx hydrALAZINE HCL [Apresoline] 100 mg PO TID 01/06/19 10/24/21 History lisinopriL 40 mg PO DAILY 01/06/19 10/24/21 History Levothyroxine Sodium [Synthroid] 125 mcg PO DAILY #30 tab 01/08/19 10/24/21 Rx Insulin NPL/Insulin Lispro 20 unit SQ W/SUPPER 05/30/20 10/24/21 History [humaLOG MIX 75-25 VIAL] Insulin NPL/Insulin Lispro 30 unit SQ W/BRKFST 06/05/20 10/24/21 History [humaLOG MIX 75-25 VIAL] Ergocalciferol [Vitamin D2 50,000 unit PO TU 07/19/20 10/24/21 History (RICHARD)] Pioglitazone [Actos] 15 mg PO DAILY 09/13/20 10/24/21 History carvediloL [Coreg*] 12.5 mg PO BID-W/MEALS #60 tab 05/11/21 10/24/21 Rx Potassium Chloride ER [K-Dur 20] 20 meq PO W/BRKFST 08/06/21 10/24/21 History polyethylene glycoL 3350 [Miralax] 17 gm PO DAILY packet 08/12/21 10/24/21 Rx Furosemide [Lasix] 20 mg PO DAILY 08/30/21 10/24/21 History Sertraline [Zoloft] 25 mg PO DAILY 08/30/21 10/24/21 History Meclizine [Antivert] 25 mg PO TID PRN #60 tab 09/05/21 10/24/21 Rx Albuterol Nebulized [Ventolin 2.5 mg INHALATION RT-QID PRN 09/24/21 10/24/21 History Nebulized] Artificial Tears-Hypromellose 1 drop BOTH EYES TID PRN 09/24/21 10/24/21 History [Artificial Tear Drops] Aspirin/Acetaminophen/Caffeine 2 tab PO DAILY PRN 09/24/21 10/24/21 History [Excedrin Extra Strength Caplet] Docusate [Colace] 100 mg PO DAILY 09/24/21 10/24/21 History Elderberry Fruit and Flower [Black 1 cap PO DAILY 09/24/21 10/24/21 History Elderberry 575 mg Cap] Isosorbide Mononitrate ER [Imdur] 60 mg PO DAILY 09/24/21 10/24/21 History Magnesium Oxide [Pierce] 500 mg PO DAILY 09/24/21 10/24/21 History Melatonin 5 mg PO HS 09/24/21 10/24/21 History Multivit-Min/Iron/Folic/Lutein 1 tab PO DAILY 09/24/21 10/24/21 History [Centrum Silver Women Tablet] amLODIPine [Norvasc] 5 mg PO HS 09/24/21 10/24/21 History Allergies Allergy/AdvReac Type Severity Reaction Status Date / Time azithromycin Allergy Rash/Hives Verified 10/03/21 11:31 [From Zithromax Z-Jeanmarie] methylprednisolone Allergy Rash/Hives Verified 10/03/21 11:31 [From Medrol] sulfamethoxazole Allergy Rash/Hives Verified 10/03/21 11:31 [From Bactrim] trimethoprim [From Bactrim] Allergy Rash/Hives Verified 10/03/21 11:31 hydrochlorothiazide AdvReac lost Verified 10/03/21 11:31 balance and fell Physical Exam Osteopathic Statement: *. No significant issues noted on an osteopathic structural exam other than those noted in the History and Physical/Consult. Vitals: Vital Signs Temp Pulse Resp BP Pulse Ox 10/24/21 08:23 74 10/24/21 08:16 74 10/24/21 07:47 71 16 173/86 98 10/24/21 06:18 68 14 182/86 100 10/24/21 05:11 84 12 191/72 100 10/24/21 03:54 66 19 193/86 100 10/24/21 03:30 73 10/24/21 03:26 97.9 F 80 29 H 203/99 100 10/24/21 03:22 85 10/24/21 03:16 90 26 H 197/102 98 10/24/21 03:07 98 F 98 32 H 221/111 70 L Intake and Output 10/23/21 10/24/21 10/24/21 22:59 06:59 14:59 Output Total 1400 Balance -1400 Output: Urine 1400 Uretheral (Moore) 1400 Other: Weight 86.183 kg 86.183 kg Mild conversational dyspnea, oriented 3, with BiPAP mask in place. HEENT examination is grossly unremarkable. Neck supple. Full range of motion. No adenopathy thyromegaly or neck vein distention. Cardiovascular examination reveals an irregular rhythm and rate. S1-S2 normal. No S3 or S4. No discernible murmur noted. Heart sounds are distant. Heart rate 74 bpm. Lungs reveal diminished bilateral breath sounds. Crackles and rhonchi are noted. No wheezes. Breath sounds equal bilaterally. Saturations are 98% on BiPAP. Abdomen soft bowel sounds are heard. No masses or tenderness. Extremities are intact. No cyanosis clubbing or edema. Skin is without rash or lesion. Neurologic examination is brief but nonfocal. Results - Laboratory Findings CBC and BMP: 10/24/21 03:11 10/24/21 03:11 PT/INR, D-dimer PT 10.6 sec (9.0-12.0) 10/24/21 03:11 INR 1.0 (<1.2) 10/24/21 03:11 Abnormal lab findings: Abnormal Labs 10/24/21 10/24/21 10/24/21 03:11 03:11 03:11 WBC 16.1 H RBC 3.74 L Hgb 10.6 L MCHC 29.4 L Neutrophils # 8.5 H Monocytes # 1.7 H Sodium 132 L Carbon Dioxide 20 L BUN 26 H Creatinine 1.40 H Glucose 427 H Plasma Lactic Acid Terry 5.0 H* Calcium 8.2 L AST 37 H Alkaline Phosphatase 185 H Troponin I 10/24/21 06:47 WBC RBC Hgb MCHC Neutrophils # Monocytes # Sodium Carbon Dioxide BUN Creatinine Glucose Plasma Lactic Acid Terry Calcium AST Alkaline Phosphatase Troponin I 0.087 H* - Diagnostic Findings Chest x-ray: image reviewed Assessment and Plan Assessment: Acute hypoxemic respiratory failure secondary to CHF. Rule out non-ST segment elevation myocardial infarction. History of chronic atrial fibrillation. History of chronic congestive heart failure. Questionable history of COPD, as the patient is a lifelong nonsmoker. History of diabetes mellitus, with diabetic neuropathy. History of hyperlipidemia. History of obstructive sleep apnea syndrome, not currently maintained on CPAP. History of hypothyroidism. Stage III chronic kidney disease. History of vitamin D deficiency. History of skin cancer. Morbid obesity. Plan: Plan dated 10/24/2021. Currently, the patient is on her usual home medications. We will continue to follow ad make recommendations were appropriate. Corticosteroids are not necessary on this patient. The patient is on breathing treatments. She's also getting Lasix 60 mg IV push every 8 hours. Cardiology should be consulted for possible non-ST segment elevation myocardial infarction. Prognosis is guarded. We will continue to follow this patient and make recommendations where appropriate. Time with Patient: Greater than 30
--- NOTE | 2021-10-24 12:33 | P.CRDCN ---
History of Present Illness History of present illness: HISTORY OF PRESENTING ILLNESS Patient is a pleasant 80-year-old female with history of paroxysmal atrial fibrillation (on eliquis), hypertension, hyperlipidemia, COPD, diabetes mellitus type 2, hypothyroidism, prior CVA, chronic kidney disease, nonobstructive coronary artery disease by prior heart catheterization 2014, obstructive sleep apnea, chronic heart failure with preserved ejection fraction 55-60% and moderate aortic stenosis, pneumonia. pleural effusion with right sided thoracen tesis in 08/10/2021. Patient normally follows with Dr. Hernandez. We are consulted for congestive heart failure. Patient presents to the emergency department via EMS for worsening shortness of breath, symptoms of orthopnea, chest pain, and diarrhea. Patient states for the past 2 days she has been having symptoms of shortness of breath, dyspnea on exertion, and orthopnea. She normally sleeps with 2 pillows but now she states she has been needing to sleep on her couch with her head elevated. After 2 days her shortness of breath worsened, EMS was called, patient was found in a tripod position, SpO2 was 49% on room air, patient was in respiratory distress and patient was ventilated with a guide valve mask with 100% O2., Patient was then placed on nonrebreather mask. An oxygen saturations increased to 88%. Patient was given a dual nebulizer and albuterol and was transferred to the emergency department. Patient requiring BIPAP in ER, given IV Lasix and albuterol. She also has some non-radiating, non exertional chest pain. Located midsternal. No specific alleviating to aggravating factors, this has improved since admission. She also endorses some non-productive cough and diarrhea. DIAGNOSTICS: -EKG sinus rhythm, heart rate 101, T wave inversion in lead III, no significant ST-T wave abnormalities. prior EKGs with similar findings. -Telemetry sinus mechanism, heart rate 70s -Recent 24-hour Holter monitor 05/2021 in the office revealed baseline sinus rhythm, minimum heart rate 48, maximum heart rate 96, no pauses greater than 2 seconds, no supraventricular events. Total 45 PVCs, no malignant arrhythmias present, no episodes of nonsustained ventricular tachycardia more than 4 beats. -Chest x-ray congestive heart failure with pleural effusions. Heart failure or fluid are new compared to old exam. -Echocardiogram 03/2021 EF 5560%, grade 2 diastolic dysfunction, moderate ao rtic stenosis the peak/mean gradient of 60 mmHg, 35 mmHg, moderate mitral regurgitation, mild tricuspid regurgitation, mild pulmonary hypertension with RVSP of 39 mmHg -Labs, troponin 0.029, 0.087, proBNP 1790, WBC 16.1, hemoglobin 10.6, platelets 376, sodium 132, potassium 4.5, BUN 26, serum creatinine 1.4, lactate 5.0, repeat 1.4, magnesium 2.3 -Cardiac catheterization in 2014 revealed mild to moderate coronary artery disease -Most recent stress test Lexiscan the office 07/2018 revealed no evidence of reversible ischemia REVIEW OF SYSTEMS At the time of my exam: CONSTITUTIONAL: Denies fever or chills. CARDIOVASCULAR: +chest pain,+ shortness of breath, +orthopnea, no PND or palpitations. RESPIRATORY: + cough. GASTROINTESTINAL: Denies abdominal pain,+ diarrhea, Denies constipation, nausea or vomiting. MUSCULOSKELETAL: Left neck pain with movement of her neck NEUROLOGIC: Denies numbness, tingling or weakness. ENDOCRINE: Denies fatigue, polydipsia or polyurina. GENITOURINARY: Denies burning, hematuria or urgency with micturation. HEMATOLOGIC: Denies history of anemia or bleeding. PHYSICAL EXAMINATION Vital signs reviewed. CONSTITUTIONAL: No apparent distress, obese HEENT: Head is normocephalic. Pupils are equal, round. Sclerae anicteric. Mucous membranes of the mouth are moist. No JVD. CHEST EXAMINATION: Lungs crackles in the bases to auscultation bilaterally HEART EXAMINATION: Regular rate and rhythm. S1, S2 heard. systolic ejection murmur right sternal border and apex, no gallops or rub. ABDOMEN: Soft, nontender. Positive bowel sounds. EXTREMITIES: 2+ peripheral pulses, No bilateral lower extremity edema and no calf tenderness. NEUROLOGIC EXAMINATION: Patient is awake, alert and oriented x3. ASSESSMENT Acute on chronic heart failure with preserved ejection fraction Acute hypoxic respiratory failure Elevated troponin, likely type 2 NH event due to supply and demand mismatch, will obtain 2D echocardiogram Paroxysmal atrial fibrillation, currently normal sinus rhythm COPD Hypertension Hyperlipidemia Nonobstructive coronary artery disease by prior heart catheterization 2014 Obstructive sleep apnea Chronic kidney disease Diabetes mellitus type 2 Moderate aortic stenosis Moderate mitral regurgitation History of pneumonia History of pleural effusion with right sided thoracentesis in 07/2021 PLAN Continue IV Lasix 60mg Q8hr Obtain 2D echocardiogram Monitor I/os Daily weights, renal function and electrolytes Continue Eliquis, statin, carvedilol, Hydralazine and lisinopril Continue cardiac telemetry Further recommendations based on clinical course Past Medical History Past Medical History: Atrial Fibrillation, Cancer, Heart Failure, COPD, Diabetes Mellitus, Hyperlipidemia, Osteoarthritis (OA), Pneumonia, Sleep Apnea/CPAP/BIPAP, Thyroid Disorder Additional Past Medical History / Comment(s): Stage III Kidney Disease, hx Pneumonia with Sepsis, no CPAP use, Vitamin D Deficiency, chronic low back pain, frequent constipation, hx skin cancer, neuropathy History of Any Multi-Drug Resistant Organisms: None Reported Past Surgical History: Adenoidectomy, Back Surgery, Bariatric Surgery, Cholecystectomy, Heart Catheterization, Hysterectomy, Tonsillectomy Additional Past Surgical History / Comment(s): Cardiac caths , lap band placed/since removed, low back surgery, L carpal tunnel release X2, skin cancer removal, colonoscopies, bilateral cataract removals/lens implants. Past Anesthesia/Blood Transfusion Reactions: Previous Problems w/ Anesthesia Additional Past Anesthesia/Blood Transfusion Reaction / Comment(s): "Had too much anesthesia in 2007 for lap band removal, had to be bagged." Past Psychological History: Depression Smoking Status: Never smoker Past Alcohol Use History: None Reported Past Drug Use History: None Reported - Past Family History Sister(s) Family Medical History: Myocardial Infarction ([place]) Brother(s) Family Medical History: Cancer Additional Family Medical History / Comment(s): Colon Cancer. Mother Family Medical History: Dementia Additional Family Medical History / Comment(s): Mother of dementia at the age of 89yrs. Father Family Medical History: Cancer Additional Family Medical History / Comment(s): Pt states her father was treated for a sinus infection but really had leukemia and of this at the age of 72 yrs. Medications and Allergies Home Medications Medication Instructions Recorded Confirmed Type Atorvastatin [Lipitor] 80 mg PO HS 06/30/18 10/24/21 History Apixaban [Eliquis] 5 mg PO BID #60 tab 07/04/18 10/24/21 Rx hydrALAZINE HCL [Apresoline] 100 mg PO TID 01/06/19 10/24/21 History lisinopriL 40 mg PO DAILY 01/06/19 10/24/21 History Levothyroxine Sodium [Synthroid] 125 mcg PO DAILY #30 tab 01/08/19 10/24/21 Rx Insulin NPL/Insulin Lispro 20 unit SQ W/SUPPER 05/30/20 10/24/21 History [humaLOG MIX 75-25 VIAL] Insulin NPL/Insulin Lispro 30 unit SQ W/BRKFST 06/05/20 10/24/21 History [humaLOG MIX 75-25 VIAL] Ergocalciferol [Vitamin D2 50,000 unit PO TU 07/19/20 10/24/21 History (DRISDOL)] Pioglitazone [Actos] 15 mg PO DAILY 09/13/20 10/24/21 History carvediloL [Coreg*] 12.5 mg PO BID-W/MEALS #60 tab 05/11/21 10/24/21 Rx Potassium Chloride ER [K-Dur 20] 20 meq PO W/BRKFST 08/06/21 10/24/21 History polyethylene glycoL 3350 [Miralax] 17 gm PO DAILY packet 08/12/21 10/24/21 Rx Furosemide [Lasix] 20 mg PO DAILY 08/30/21 10/24/21 History Sertraline [Zoloft] 25 mg PO DAILY 08/30/21 10/24/21 History Meclizine [Antivert] 25 mg PO TID PRN #60 tab 09/05/21 10/24/21 Rx Albuterol Nebulized [Ventolin 2.5 mg INHALATION RT-QID PRN 09/24/21 10/24/21 History Nebulized] Artificial Tears-Hypromellose 1 drop BOTH EYES TID PRN 09/24/21 10/24/21 History [Artificial Tear Drops] Aspirin/Acetaminophen/Caffeine 2 tab PO DAILY PRN 09/24/21 10/24/21 History [Excedrin Extra Strength Caplet] Docusate [Colace] 100 mg PO DAILY 09/24/21 10/24/21 History Elderberry Fruit and Flower [Black 1 cap PO DAILY 09/24/21 10/24/21 History Elderberry 575 mg Cap] Isosorbide Mononitrate ER [Imdur] 60 mg PO DAILY 09/24/21 10/24/21 History Magnesium Oxide [Pierce] 500 mg PO DAILY 09/24/21 10/24/21 History Melatonin 5 mg PO HS 09/24/21 10/24/21 History Multivit-Min/Iron/Folic/Lutein 1 tab PO DAILY 09/24/21 10/24/21 History [Centrum Silver Women Tablet] amLODIPine [Norvasc] 5 mg PO HS 09/24/21 10/24/21 History Allergies Allergy/AdvReac Type Severity Reaction Status Date / Time azithromycin Allergy Rash/Hives Verified 10/03/21 11:31 [From Zithromax Z-Jeanmarie] methylprednisolone Allergy Rash/Hives Verified 10/03/21 11:31 [From Medrol] sulfamethoxazole Allergy Rash/Hives Verified 10/03/21 11:31 [From Bactrim] trimethoprim [From Bactrim] Allergy Rash/Hives Verified 10/03/21 11:31 hydrochlorothiazide AdvReac lost Verified 10/03/21 11:31 balance and fell Physical Exam Vitals: Vital Signs Temp Pulse Resp BP Pulse Ox 10/24/21 06:18 68 14 182/86 100 10/24/21 05:11 84 12 191/72 100 10/24/21 03:54 66 19 193/86 100 10/24/21 03:30 73 10/24/21 03:26 97.9 F 80 29 H 203/99 100 10/24/21 03:22 85 10/24/21 03:16 90 26 H 197/102 98 10/24/21 03:07 98 F 98 32 H 221/111 70 L Intake and Output 10/23/21 10/24/21 10/24/21 22:59 06:59 14:59 Other: Weight 86.183 kg Results 10/24/21 03:11 10/24/21 03:11 Cardiac Enzymes 10/24/21 10/24/21 Range/Units 03:11 03:11 AST 37 H (14-36) U/L Troponin I 0.029 (0.000-0.034) ng/mL Coagulation 10/24/21 Range/Units 03:11 PT 10.6 (9.0-12.0) sec APTT 25.8 (22.0-30.0) sec CBC 10/24/21 Range/Units 03:11 WBC 16.1 H (3.8-10.6) k/uL RBC 3.74 L (3.80-5.40) m/uL Hgb 10.6 L (11.4-16.0) gm/dL Hct 36.0 (34.0-46.0) % Plt Count 376 (150-450) k/uL Comprehensive Metabolic Panel 10/24/21 Range/Units 03:11 Sodium 132 L (137-145) mmol/L Potassium 4.5 (3.5-5.1) mmol/L Chloride 100 (98-107) mmol/L Carbon Dioxide 20 L (22-30) mmol/L BUN 26 H (7-17) mg/dL Creatinine 1.40 H (0.52-1.04) mg/dL Glucose 427 H (74-99) mg/dL Calcium 8.2 L (8.4-10.2) mg/dL AST 37 H (14-36) U/L ALT 25 (4-34) U/L Alkaline Phosphatase 185 H (38-126) U/L Total Protein 7.0 (6.3-8.2) g/dL Albumin 3.9 (3.5-5.0) g/dL Current Medications Generic Name Dose Route Start Last Admin Trade Name Freq PRN Reason Stop Dose Admin Albuterol Sulfate 5 mg 10/24/21 08:00 Albuterol Nebulized 2.5 Mg/3 Ml INHALATION RT-QID BAYRON Aspirin 325 mg 10/25/21 09:00 Aspirin 325 Mg Tab PO DAILY BAYRON Furosemide 60 mg 10/24/21 06:15 10/24/21 06:22 Furosemide 10 Mg/Ml 4 Ml Vial IV 60 mg Q8H BAYRON Administration Intake and Output 10/23/21 10/24/21 10/24/21 22:59 06:59 14:59 Other: Weight 86.183 kg 10/24/21 03:11 10/24/21 03:11
--- NOTE | 2021-10-24 14:17 | P.HPIM ---
History of Present Illness H&P Date: 10/24/21 HISTORY OF PRESENT ILLNESS This is a 81-year-old female patient of Dr. Dawn/Henri Mejía ATMOSPHERIC CHEMIST and Dr. 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 Amaya for pain management. Asked hospitalization was in March 2021 for acute on chronic diastolic heart failure. At that time echocardiogram revealed EF of 55-60% with severe concentric left ventricular hypertrophy, moderate aortic stenosis, moderate mitral regurgitation, mild tricuspid regurgitation, mild pulmonary hypertension. Patient apparently seen pulmonary Dr. regular basis was supposed to have pulmonary function tests today patient has been having significant shortness of breath and dyspnea for the last few days become much worse today ended up calling 911 and brought to the emergency department by EMS in found to be in extreme acute respiratory failure with poor response to management, patient was placed on BiPAP at the time, started on IV furosemide, first set of lab shows white blood cell 16,000 and hemoglobin of 10.7, initial troponin was 0.0-29 and up to 0.0873 EKG didn't show any major abnormality changes the time. Glucose was quite bit high at 427 with normal lactic acid her creatinine was 1.4 close to her baseline her BNP was 1790 chest x-ray showed diffuse bilateral infiltrate and small effusion with CHF. Patient was started on BiPAP with elevated troponin be seen cardiology for non- [facility] [place] also be seen pulmonary clinic transfer patient to the ICU currently. REVIEW OF SYSTEMS Constitutional: No fever, no chills, no night sweats. No weight change. No weakness, fatigue or lethargy. No daytime sleepiness. EENT: Reported headache. No blurred vision or double vision, no loss of vision. No loss of Hearing, no ringing in the ears, no dizziness. No nasal drainage or congestion. No epistaxis. No sore throat. Lungs: Significant shortness of breath and respiratory failure, on BiPAP and high flow oxygen along with updraft treatment. Cardiovascular: Reported chest pain, positive lower extremity edema. No palpitations. No paroxysmal nocturnal dyspnea. No orthopnea. No lightheadedness or dizziness. Reports syncopal episodes. Abdominal: No abdominal pain. No nausea, vomiting. No diarrhea. No constipation. No bloody or tarry stools. No loss of appetite. Genitourinary: Reported dysuria, no increased frequency, no urgency. No urinary retention. Musculoskeletal: No myalgias. No muscle weakness, no gait dysfunction, no frequent falls. No back pain. No neck pain. Integumentary: No wounds, no lesions. No rash or pruritus. No unusual bruising. No change in hair or nails. Neurologic: No aphasia. No facial droop. No change in mentation. No head injury. No headache. No paralysis. No paresthesia. Psychiatric: No depression. Reports anxiety. No mood swings. Endocrine: Noted abnormal blood sugars. No weight change. SOCIAL HISTORY Patient is a lifelong nonsmoker but had secondhand smoke exposure with her , no marijuana use, alcohol use, illicit drug use. FAMILY HISTORY Mother at age 90 from CVA with history of Alzheimer's dementia and hypertension. Father at age 72 from leukemia. Patient has one sister that of a brain cancer. Patient has 2 brothers and one has severe diabetes and valvular heart disease. One brother has passed from alcohol and drug related issues. Patient has 2 sons and 2 daughters with no major medical problems. PHYSICAL EXAMINATION Gen: This is a 81-year-old female, obese, patient is laying in bed has BiPAP on Lyrica mild respiratory distress. HEENT: Head is atraumatic, normocephalic. Pupils equal, round. Sclerae is anicteric. NECK: Supple. No JVD. No lymphadenopathy. No thyromegaly. LUNGS: Decreased for some tooth, has mild crackles in bases specially the right side has mild respiratory expected wheezes. HEART: Regular rate and rhythm. 3/6 systolic murmur. S1, S2, positive S3. ABDOMEN: Soft. Bowel sounds are present. No masses. No tenderness. EXTREMITIES: 1+ bilateral pedal edema. No calf tenderness. Dorsalis pedis +2 bilaterally. NEUROLOGICAL: Patient is awake, alert and oriented x3. Cranial nerves 2 through 12 are grossly intact. ASSESSMENT AND PLAN 1 acute hypoxic respiratory failure: Secondary to CHF exacerbation probably COPD: Patient is on BiPAP currently, will be seen cardiology pulmonary continue current management still on IV diuretics along with steroid and pain management. 2 non-ST segment elevation myocardial infarction: With elevated troponin with a current presentation, patient be seen cardiology, CK with troponin times 3 repeat on, repeat echocardiogram, further recommendation by cardiology. 3 congestive heart failure exacerbation: Mostly diastolic's function, patient remain on furosemide, Coreg might benefit from small dose of BISI inhibitor, will watch daily weight and fluid intake. 4 COPD with excessive patient: Patient is lifelong nonsmoker but she lived with a smoker for over 50 years more than 2 pack a day, continue steroid, continue BiPAP will continue patient on updraft treatment [id number]. 5 Paroxysmal atrial fibrillation continue eliquis 5 mg twice daily, Coreg 12.5 mg twice daily. 6 obstructive sleep apnea: Currently not using CPAP will require further management. 7 acute kidney injury with chronic stage III chronic kidney disease, continue gentle hydration repeat CMP daily basis. 8 hypertension: Remain on amlodipine 10 mg a day Coreg 12.5 mg twice a day hydralazine 50 mg 2 times a day continue lisinopril 40 mg daily as well. 9 type 2 diabetes: Has been on next Humalog 75/25 30 units in the morning 20 units the evening, still on pioglitazone 15 mg daily which will be held for now and continue short acting insulin per sliding scales coverage. 10 chronic anticoagulation management: A Chin remain on Eliquis 5 mg twice a day. 11 Hypothyroidism. Continue levothyroxine 125 g daily. 12. Degenerative disc disease with chronic pain. Follows with pain management with Dr. Amaya. 13. Hyperlipidemia. Continue Lipitor 80 mg at bedtime. 14. Chronic anemia. Continue ferrous sulfate 325 mg daily. 15. GI prophylaxis. Protonix. 16. DVT prophylaxis. Eliquis. Patient will be admitted to the hospital for a minimum of 2 night stay. Past Medical History Past Medical History: Atrial Fibrillation, Cancer, Heart Failure, COPD, Diabetes Mellitus, Hyperlipidemia, Osteoarthritis (OA), Pneumonia, Sleep Apnea/CPAP/BIPAP, Thyroid Disorder Additional Past Medical History / Comment(s): Stage III Kidney Disease, hx Pneumonia with Sepsis, no CPAP use, Vitamin D Deficiency, chronic low back pain, frequent constipation, hx skin cancer, neuropathy History of Any Multi-Drug Resistant Organisms: None Reported Past Surgical History: Adenoidectomy, Back Surgery, Bariatric Surgery, Cholecystectomy, Heart Catheterization, Hysterectomy, Tonsillectomy Additional Past Surgical History / Comment(s): Cardiac caths , lap band placed/since removed, low back surgery, L carpal tunnel release X2, skin cancer removal, colonoscopies, bilateral cataract removals/lens implants. Past Anesthesia/Blood Transfusion Reactions: Previous Problems w/ Anesthesia Additional Past Anesthesia/Blood Transfusion Reaction / Comment(s): "Had too much anesthesia in 2007 for lap band removal, had to be bagged." Past Psychological History: Depression Smoking Status: Never smoker Past Alcohol Use History: None Reported Past Drug Use History: None Reported - Past Family History Sister(s) Family Medical History: Myocardial Infarction ([place]) Brother(s) Family Medical History: Cancer Additional Family Medical History / Comment(s): Colon Cancer. Mother Family Medical History: Dementia Additional Family Medical History / Comment(s): Mother of dementia at the age of 89yrs. Father Family Medical History: Cancer Additional Family Medical History / Comment(s): Pt states her father was treated for a sinus infection but really had leukemia and of this at the age of 72 yrs. Medications and Allergies Home Medications Medication Instructions Recorded Confirmed Type Atorvastatin [Lipitor] 80 mg PO HS 06/30/18 10/24/21 History Apixaban [Eliquis] 5 mg PO BID #60 tab 07/04/18 10/24/21 Rx hydrALAZINE HCL [Apresoline] 100 mg PO TID 01/06/19 10/24/21 History lisinopriL 40 mg PO DAILY 01/06/19 10/24/21 History Levothyroxine Sodium [Synthroid] 125 mcg PO DAILY #30 tab 01/08/19 10/24/21 Rx Insulin NPL/Insulin Lispro 20 unit SQ W/SUPPER 05/30/20 10/24/21 History [humaLOG MIX 75-25 VIAL] Insulin NPL/Insulin Lispro 30 unit SQ W/BRKFST 06/05/20 10/24/21 History [humaLOG MIX 75-25 VIAL] Ergocalciferol [Vitamin D2 50,000 unit PO TU 07/19/20 10/24/21 History (DRISDOL)] Pioglitazone [Actos] 15 mg PO DAILY 09/13/20 10/24/21 History carvediloL [Coreg*] 12.5 mg PO BID-W/MEALS #60 tab 05/11/21 10/24/21 Rx Potassium Chloride ER [K-Dur 20] 20 meq PO W/BRKFST 08/06/21 10/24/21 History polyethylene glycoL 3350 [Miralax] 17 gm PO DAILY packet 08/12/21 10/24/21 Rx Furosemide [Lasix] 20 mg PO DAILY 08/30/21 10/24/21 History Sertraline [Zoloft] 25 mg PO DAILY 08/30/21 10/24/21 History Meclizine [Antivert] 25 mg PO TID PRN #60 tab 09/05/21 10/24/21 Rx Albuterol Nebulized [Ventolin 2.5 mg INHALATION RT-QID PRN 09/24/21 10/24/21 History Nebulized] Artificial Tears-Hypromellose 1 drop BOTH EYES TID PRN 09/24/21 10/24/21 History [Artificial Tear Drops] Aspirin/Acetaminophen/Caffeine 2 tab PO DAILY PRN 09/24/21 10/24/21 History [Excedrin Extra Strength Caplet] Docusate [Colace] 100 mg PO DAILY 09/24/21 10/24/21 History Elderberry Fruit and Flower [Black 1 cap PO DAILY 09/24/21 10/24/21 History Elderberry 575 mg Cap] Isosorbide Mononitrate ER [Imdur] 60 mg PO DAILY 09/24/21 10/24/21 History Magnesium Oxide [Pierce] 500 mg PO DAILY 09/24/21 10/24/21 History Melatonin 5 mg PO HS 09/24/21 10/24/21 History Multivit-Min/Iron/Folic/Lutein 1 tab PO DAILY 09/24/21 10/24/21 History [Centrum Silver Women Tablet] amLODIPine [Norvasc] 5 mg PO HS 09/24/21 10/24/21 History Allergies Allergy/AdvReac Type Severity Reaction Status Date / Time azithromycin Allergy Rash/Hives Verified 10/03/21 11:31 [From Zithromax Z-Jeanmarie] methylprednisolone Allergy Rash/Hives Verified 10/03/21 11:31 [From Medrol] sulfamethoxazole Allergy Rash/Hives Verified 10/03/21 11:31 [From Bactrim] trimethoprim [From Bactrim] Allergy Rash/Hives Verified 10/03/21 11:31 hydrochlorothiazide AdvReac lost Verified 10/03/21 11:31 balance and fell Physical Exam Vitals: Vital Signs Temp Pulse Resp BP Pulse Ox 10/24/21 08:23 74 10/24/21 08:16 74 10/24/21 07:47 71 16 173/86 98 10/24/21 06:18 68 14 182/86 100 10/24/21 05:11 84 12 191/72 100 10/24/21 03:54 66 19 193/86 100 10/24/21 03:30 73 10/24/21 03:26 97.9 F 80 29 H 203/99 100 10/24/21 03:22 85 10/24/21 03:16 90 26 H 197/102 98 10/24/21 03:07 98 F 98 32 H 221/111 70 L Intake and Output 10/23/21 10/24/21 10/24/21 22:59 06:59 14:59 Output Total 1400 Balance -1400 Output: Urine 1400 Uretheral (Moore) 1400 Other: Weight 86.183 kg 86.183 kg Results CBC & Chem 7: 10/24/21 03:11 10/24/21 03:11 Labs: Abnormal Lab Results - Last 24 Hours (Table) 10/24/21 10/24/21 10/24/21 Range/Units 03:11 03:11 03:11 WBC 16.1 H (3.8-10.6) k/uL RBC 3.74 L (3.80-5.40) m/uL Hgb 10.6 L (11.4-16.0) gm/dL MCHC 29.4 L (31.0-37.0) g/dL Neutrophils # 8.5 H (1.3-7.7) k/uL Monocytes # 1.7 H (0-1.0) k/uL Sodium 132 L (137-145) mmol/L Carbon Dioxide 20 L (22-30) mmol/L BUN 26 H (7-17) mg/dL Creatinine 1.40 H (0.52-1.04) mg/dL Glucose 427 H (74-99) mg/dL Plasma Lactic Acid Terry 5.0 H* (0.7-2.0) mmol/L Calcium 8.2 L (8.4-10.2) mg/dL AST 37 H (14-36) U/L Alkaline Phosphatase 185 H (38-126) U/L Troponin I (0.000-0.034) ng/mL 10/24/21 Range/Units 06:47 WBC (3.8-10.6) k/uL RBC (3.80-5.40) m/uL Hgb (11.4-16.0) gm/dL MCHC (31.0-37.0) g/dL Neutrophils # (1.3-7.7) k/uL Monocytes # (0-1.0) k/uL Sodium (137-145) mmol/L Carbon Dioxide (22-30) mmol/L BUN (7-17) mg/dL Creatinine (0.52-1.04) mg/dL Glucose (74-99) mg/dL Plasma Lactic Acid Terry (0.7-2.0) mmol/L Calcium (8.4-10.2) mg/dL AST (14-36) U/L Alkaline Phosphatase (38-126) U/L Troponin I 0.087 H* (0.000-0.034) ng/mL Thrombosis Risk Factor Assmnt - Choose All That Apply Any of the Below Risk Factors Present?: Yes Each Factor Represents 1 point: Abnormal pulmonary function (COPD), Heart failure (<1month), Obesity (BMI >25) Other Risk Factors: Yes Each Risk Factor Represents 2 Points: Malignancy Each Risk Factor Represents 3 Points: Age 75 years or older Other congenital or acquired thrombophilia - If yes, enter type in comment: No Thrombosis Risk Factor Assessment Total Risk Factor Score: 8 Thrombosis Risk Factor Assessment Level: High Risk
--- NOTE | 2021-10-24 17:05 | ECHOF ---
Referral Reason:shortness of breath MEASUREMENTS -------- HEIGHT: 162.6 cm WEIGHT: 86.2 kg BP: RVIDd: 2.3 cm (< 3.3) IVSd: 1.6 cm (0.6 - 1.1) LVIDd: 4.1 cm (3.9 - 5.3) LVPWd: 1.6 cm (0.6 - 1.1) IVSs: 2.5 cm LVIDs: 2.5 cm LVPWs: 2.1 cm Ao Diam: 2.8 cm (2.0 - 3.7) AV Cusp: 0.9 cm (1.5 - 2.6) LA Diam: 4.1 cm (2.7 - 3.8) MV EXCURSION: 11.453 mm (> 18.000) MV EF SLOPE: 56 mm/s (70 - 150) EPSS: 0.8 cm MV E Joel: 1.15 m/s MV DecT: 247 ms MV A Joel: 1.59 m/s MV E/A Ratio: 0.73 AV maxP.99 mmHg AV meanP.88 mmHg AR PHT: 466 ms RAP: 5.00 mmHg RVSP: 38.86 mmHg FINDINGS -------- This was a technically good study. The left ventricular size is normal. There is moderate concentric left ventricular hypertrophy. O verall left ventricular systolic function is normal with, an EF between 55 - 60 %. The right ventricle is normal in size. The left atrium is mildly dilated. The right atrial size is normal. Aortic valve is trileaflet and is severely thickened. There is mild aortic regurgitation. There i s severe aortic stenosis present. Peak/mean gradient across the Aortic Valve is 48.99mmHg / 33.88mm Hg. The mitral valve is normal. The mitral valve leaflets are mildly thickened. Mild mitral annular c alcification present. [id number] mitral regurgitation is present. The tricuspid valve appears structurally normal. Mild tricuspid regurgitation present. There is m ild pulmonary hypertension. The right ventricular systolic pressure, as measured by Doppler, is 38. 86mmHg. There is no pulmonic regurgitation present. The aortic root size is normal. Normal inferior vena cava with normal inspiratory collapse consistent with estimated right atrial pre ssure of 5 mmHg. There is no pericardial effusion. CONCLUSIONS -------- 1. The left ventricular size is normal. 2. There is moderate concentric left ventricular hypertrophy. 3. Overall left ventricular systolic function is normal with, an EF between 55 - 60 %. 4. The left atrium is mildly dilated. 5. Aortic valve is trileaflet and is severely thickened. 6. There is mild aortic regurgitation. 7. There is severe aortic stenosis present. 8. Peak/mean gradient across the Aortic Valve is 48.99mmHg / 33.88mmHg. 9. The mitral valve leaflets are mildly thickened. 10. Mild mitral annular calcification present. 11. [id number] mitral regurgitation is present. 12. Mild tricuspid regurgitation present. 13. There is mild pulmonary hypertension. 14. The right ventricular systolic pressure, as measured by Doppler, is 38.86mmHg. 15. There is no pericardial effusion. LOAD BUILDER: Rahel Lopez RDCS
[2021-10-24 17:06] VITALS: BMI 32.5
[2021-10-24 17:09] LABS: Glucose,Whole Blood 518 mg/dL (75-99)
[2021-10-24 17:09] LABS: Glucose,Whole Blood 509 mg/dL (75-99)
[2021-10-24] MEDS ORDERED: INSULIN ASPART (NovoLOG) 100 UNIT/ML VIAL SQ STA (17:36)
[2021-10-24] MEDS: INSULN ASP PRT/INSULIN ASPART 100 UNIT/ML 10 ML VIAL SQ SCH (17:44)
[2021-10-24] MEDS: hydrALAZINE HCL 50 MG TAB PO SCH ×2 (17:44→21:32)
[2021-10-24 19:30] LABS: Glucose,Whole Blood 508 mg/dL (75-99)
[2021-10-24 19:32] LABS: Glucose,Whole Blood 487 mg/dL (75-99)
[2021-10-24] MEDS ORDERED: INSULIN REGULAR 100 UNIT in SODIUM CHLORIDE 0.9% 100 ML IV SCH (20:15)
[2021-10-24 20:29] LABS: Glucose,Whole Blood 443 mg/dL (75-99)
[2021-10-24] MEDS ORDERED: amLODIPine 5 MG TAB PO SCH (21:00)
[2021-10-24 21:12] LABS: Glucose,Whole Blood 387 mg/dL (75-99)
[2021-10-24] MEDS: INSULIN ASPART (NovoLOG) 100 UNIT/ML VIAL SQ SCH ×2 (21:26→22:32)
[2021-10-24] MEDS: ATORVASTATIN 80 MG TAB PO SCH (21:31)
[2021-10-24] MEDS: MELATONIN 5 MG TABLET PO SCH (21:32)
[2021-10-24] MEDS: CALCIUM CARBONATE 500 MG CHEWABLE PO PRN (21:32)
[2021-10-24 21:42] LABS: Glucose,Whole Blood 320 mg/dL (75-99)
[2021-10-24 22:12] LABS: Glucose,Whole Blood 288 mg/dL (75-99)
[2021-10-24 22:42] LABS: Glucose,Whole Blood 228 mg/dL (75-99)
[2021-10-24 23:41] LABS: Glucose,Whole Blood 149 mg/dL (75-99)
[2021-10-25 01:52] LABS: Glucose,Whole Blood 114 mg/dL (75-99)
[2021-10-25 02:51] LABS: Glucose,Whole Blood 115 mg/dL (75-99)
[2021-10-25 03:47] LABS: Glucose,Whole Blood 116 mg/dL (75-99)
[2021-10-25 05:02] LABS: Glucose,Whole Blood 133 mg/dL (75-99)
[2021-10-25 06:23] LABS: Glucose,Whole Blood 138 mg/dL (75-99)
[2021-10-25] MEDS: FUROSEMIDE 10 MG/ML 4 ML VIAL IV SCH (06:39)
[2021-10-25] MEDS: LEVOTHYROXINE 125 MCG TAB PO SCH (06:39)
[2021-10-25] MEDS: POTASSIUM CHLORIDE ER 20 MEQ TAB.ER PO SCH (06:39)
[2021-10-25] MEDS: IPRATROPIUM-ALBUTEROL 3 ML NEB INHALATION SCH ×4 (07:14→20:37)
[2021-10-25] MEDS: INSULIN ASPART (NovoLOG) 100 UNIT/ML VIAL SQ SCH ×6 (08:48→21:45)
[2021-10-25] MEDS: DOCUSATE 100 MG CAP PO SCH (08:48)
[2021-10-25] MEDS: lisinopriL 20 MG TAB PO SCH (08:57)
[2021-10-25] MEDS: APIXABAN 5 MG TAB PO SCH ×2 (08:57→21:48)
[2021-10-25] MEDS: polyethylene glycoL 3350 17 GM POWD.PACK PO SCH (08:58)
[2021-10-25] MEDS: hydrALAZINE HCL 50 MG TAB PO SCH ×3 (08:58→21:48)
[2021-10-25] MEDS: ASPIRIN 81 MG PO SCH (08:58)
[2021-10-25] MEDS: carvediloL 12.5 MG TAB PO SCH ×2 (08:58→17:57)
[2021-10-25] MEDS: MULTIVITAMINS, THERA 1 EACH TAB PO SCH (08:58)
[2021-10-25] MEDS: SERTRALINE 25 MG TAB PO SCH (08:58)
[2021-10-25] MEDS: MAGNESIUM OXIDE 400 MG TAB PO SCH (08:58)
[2021-10-25] MEDS ORDERED: ISOSORBIDE MONONITRATE ER 60 MG TAB.ER.24H PO SCH (09:00)
[2021-10-25] MEDS ORDERED: FUROSEMIDE 20 MG TAB PO SCH (09:00)
[2021-10-25] MEDS ORDERED: ASPIRIN 325 MG TAB PO SCH (09:00)
[2021-10-25] MEDS ORDERED: ERGOCALCIFEROL 1,250 MCG (50,000 IU) CAPSULE PO SCH (09:00)
[2021-10-25 09:01] LABS: Glucose,Whole Blood 207 mg/dL (75-99)
[2021-10-25] MEDS: CALCIUM CARBONATE 500 MG CHEWABLE PO PRN (09:03)
[2021-10-25 09:37] LABS: Calcium 8.3 mg/dL (8.4-10.2); Potassium 4.1 mmol/L (3.5-5.1)
--- NOTE | 2021-10-25 10:21 | P.PN ---
Subjective Progress Note Date: 10/25/21 This is a 81-year-old female patient of Dr. Dawn/Henri Mejía [employer] and Dr. 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 Amaya for pain management. Asked hospitalization was in March 2021 for acute on chronic diastolic heart failure. At that time echocardiogram revealed EF of 55-60% with severe concentric left ventricular hypertrophy, moderate aortic stenosis, moderate mitral regurgitation, mild tricuspid regurgitation, mild pulmonary hypertension. Patient apparently seen pulmonary Dr. regular basis was supposed to have pulmonary function tests today patient has been having significant shortness of breath and dyspnea for the last few days become much worse today ended up calling 911 and brought to the emergency department by EMS in found to be in extreme acute respiratory failure with poor response to management, patient was placed on BiPAP at the time, started on IV furosemide, first set of lab shows white blood cell 16,000 and hemoglobin of 10.7, initial troponin was 0.0-29 and up to 0.0873 EKG didn't show any major abnormality changes the time. Glucose was quite bit high at 427 with normal lactic acid her creatinine was 1.4 close to her baseline her BNP was 1790 chest x-ray showed diffuse bilateral infiltrate and small effusion with CHF. Patient was started on BiPAP with elevated troponin be seen cardiology for non- [facility] also be seen pulmonary clinic transfer patient to the ICU currently. 10/25: Patient is doing much better today she made it to the floor she is off BiPAP completely she is on oxygen only looks like she ended up having a flush pulmonary edema from most likely cardiac event more than pulmonary. Review her echocardiogram from yesterday showed moderate to severe aortic stenosis with a gradient of 48.9 patient might require to have something done to fix it. Patient troponin was slightly bit elevated yesterday and still seeing cardiology this point the plan probably to have cardiology do heart catheter to find out if patient had any blockage consistent with coronary artery disease and prepare for valve surgery or TAVR. REVIEW OF SYSTEMS Constitutional: No fever, no chills, no night sweats. No weight change. No weakness, fatigue or lethargy. No daytime sleepiness. EENT: Reported headache. No blurred vision or double vision, no loss of vision. No loss of Hearing, no ringing in the ears, no dizziness. No nasal drainage or congestion. No epistaxis. No sore throat. Lungs: Significant shortness of breath and respiratory failure, on BiPAP and high flow oxygen along with updraft treatment. Cardiovascular: Reported chest pain, positive lower extremity edema. No palpitations. No paroxysmal nocturnal dyspnea. No orthopnea. No light headedness or dizziness. Reports syncopal episodes. Abdominal: No abdominal pain. No nausea, vomiting. No diarrhea. No constipation. No bloody or tarry stools. No loss of appetite. Genitourinary: Reported dysuria, no increased frequency, no urgency. No urinary retention. Musculoskeletal: No myalgias. No muscle weakness, no gait dysfunction, no frequent falls. No back pain. No neck pain. Integumentary: No wounds, no lesions. No rash or pruritus. No unusual bruising. No change in hair or nails. Neurologic: No aphasia. No facial droop. No change in mentation. No head injury. No headache. No paralysis. No paresthesia. Psychiatric: No depression. Reports anxiety. No mood swings. Endocrine: Noted abnormal blood sugars. No weight change. PHYSICAL EXAMINATION Gen: This is a 81-year-old female, obese, patient is laying in bed has BiPAP on Lyrica mild respiratory distress. HEENT: Head is atraumatic, normocephalic. Pupils equal, round. Sclerae is anicteric. NECK: Supple. No JVD. No lymphadenopathy. No thyromegaly. LUNGS: Decreased for some tooth, has mild crackles in bases specially the right side has mild respiratory expected wheezes. HEART: Regular rate and rhythm. 3/6 systolic murmur. S1, S2, positive S3. ABDOMEN: Soft. Bowel sounds are present. No masses. No tenderness. EXTREMITIES: 1+ bilateral pedal edema. No calf tenderness. Dorsalis pedis +2 bilaterally. NEUROLOGICAL: Patient is awake, alert and oriented x3. Cranial nerves 2 through 12 are grossly intact. ASSESSMENT AND PLAN 1 acute hypoxic respiratory failure: Secondary to CHF exacerbation probably COPD: Patient is off BiPAP completely still on O2 still on IV diuretics and doing well. 2 non-ST segment elevation myocardial infarction: With troponin being elevated patient probably should go for heart cath for finding out the coronary artery anatomy and prepare for her valve procedure. 3 congestive heart failure exacerbation: Mostly diastolic's function, patient remain on furosemide, Coreg might benefit from small dose of BISI inhibitor, will watch daily weight and fluid intake. 4 moderate to severe aortic stenosis: Patient will need to have her coronary artery anatomy checked and prepare for either valve replacement or for doing TAVR 5 COPD with excessive patient: Patient is lifelong nonsmoker but she lived with a smoker for over 50 years more than 2 pack a day, continue steroid, continue BiPAP will continue patient on updraft treatment [id number]. 6 Paroxysmal atrial fibrillation continue eliquis 5 mg twice daily, Coreg 12.5 mg twice daily. 7 acute kidney injury with chronic stage III chronic kidney disease, continue gentle hydration repeat CMP daily basis. 8 hypertension: Remain on amlodipine 10 mg a day Coreg 12.5 mg twice a day hydralazine 50 mg 2 times a day continue lisinopril 40 mg daily as well. 9 type 2 diabetes: Has been on next Humalog 75/25 30 units in the morning 20 units the evening, still on pioglitazone 15 mg daily which will be held for now and continue short acting insulin per sliding scales coverage. 10 chronic anticoagulation management: A Chin remain on Eliquis 5 mg twice a day. 11 Hypothyroidism. Continue levothyroxine 125 g daily. 12. Degenerative disc disease with chronic pain. Follows with pain management with Dr. Amaya. 13. Hyperlipidemia. Continue Lipitor 80 mg at bedtime. 14. Chronic anemia. Continue ferrous sulfate 325 mg daily. 15 obstructive sleep apnea: Currently not using CPAP will require further management. Discussion with patient and Dr. Mays at this point patient probably would benefit from going for heart cath when she stable to the site on the severity of her coronary anatomy along with the valve and prepare for either valve repair or replacement. Objective - Vital Signs Vital signs: Vital Signs Temp 98.0 F 10/25/21 03:54 Pulse 80 10/25/21 07:28 Resp 18 10/25/21 03:54 BP 142/64 10/25/21 06:37 Pulse Ox 97 10/25/21 03:54 Intake & Output 10/24/21 10/25/21 10/25/21 18:59 06:59 18:59 Intake Total 55.937 Output Total 2300 1900 Balance -2300 -1844.063 Weight 86.183 kg Intake: Intake, IV Titration 55.937 Amount Insulin Regular 100 unit 55.937 In Sodium Chloride 0.9% 100 ml @ Titrate IV .Q0M [facility] Rx#:[id number] Output: Urine 22990 Uretheral ([place]ore) 230 1900 Other: Voiding Method Indwelling Catheter - Labs CBC & Chem 7: 10/24/21 03:11 10/25/21 08:16 Labs: Abnormal Lab Results - Last 24 Hours (Table) 10/24/21 10/24/21 10/24/21 Range/Units 10:03 17:05 17:06 BUN (7-17) mg/dL Creatinine (0.52-1.04) mg/dL Glucose (74-99) mg/dL POC Glucose (mg/dL) 518 H 509 H (75-99) mg/dL Calcium (8.4-10.2) mg/dL Troponin I 0.101 H* (0.000-0.034) ng/mL 10/24/21 10/24/21 10/24/21 Range/Units 19:29 19:31 20:28 BUN (7-17) mg/dL Creatinine (0.52-1.04) mg/dL Glucose (74-99) mg/dL POC Glucose (mg/dL) 508 H 487 H 443 H (75-99) mg/dL Calcium (8.4-10.2) mg/dL Troponin I (0.000-0.034) ng/mL 10/24/21 10/24/21 10/24/21 Range/Units 21:11 21:41 22:10 BUN (7-17) mg/dL Creatinine (0.52-1.04) mg/dL Glucose (74-99) mg/dL POC Glucose (mg/dL) 387 H 320 H 288 H (75-99) mg/dL Calcium (8.4-10.2) mg/dL Troponin I (0.000-0.034) ng/mL 10/24/21 10/24/21 10/25/21 Range/Units 22:41 23:40 01:40 BUN (7-17) mg/dL Creatinine (0.52-1.04) mg/dL Glucose (74-99) mg/dL POC Glucose (mg/dL) 228 H 149 H 114 H (75-99) mg/dL Calcium (8.4-10.2) mg/dL Troponin I (0.000-0.034) ng/mL 10/25/21 10/25/21 10/25/21 Range/Units 02:40 03:46 04:45 BUN (7-17) mg/dL Creatinine (0.52-1.04) mg/dL Glucose (74-99) mg/dL POC Glucose (mg/dL) 115 H 116 H 133 H (75-99) mg/dL Calcium (8.4-10.2) mg/dL Troponin I (0.000-0.034) ng/mL 10/25/21 10/25/21 10/25/21 Range/Units 06:22 08:16 08:55 BUN 44 H (7-17) mg/dL Creatinine 1.59 H (0.52-1.04) mg/dL Glucose 160 H (74-99) mg/dL POC Glucose (mg/dL) 138 H 207 H (75-99) mg/dL Calcium 8.3 L (8.4-10.2) mg/dL Troponin I (0.000-0.034) ng/mL
[2021-10-25 11:06] LABS: Glucose,Whole Blood 182 mg/dL (75-99)
[2021-10-25] MEDS: INSULN ASP PRT/INSULIN ASPART 100 UNIT/ML 10 ML VIAL SQ SCH ×2 (11:30→17:58)
--- NOTE | 2021-10-25 11:59 | P.PN ---
Subjective Progress Note Date: 10/25/21 Principal diagnosis: CHF. Pulmonary consult dated 10/24/2021. This is an 81-year-old female, initially seen in the emergency department, trauma room #1. She was initially seen by the ER physician, for shortness of breath. He does note, he mentions, EMS brought the patient to the emergency room, for severe shortness of breath. The patient apparently was mildly unresponsive or poorly responsive for EMS on arrival. The patient apparently was placed on BiPAP therapy, and improved. We are currently seeing her in the ER, on BiPAP, with settings of IPAP 14, EPAP 6, and an FiO2 of 60%. She's not receiving any IV fluids. She is being admitted for possible non-ST segment e levation myocardial infarction, respiratory failure, and congestive heart failure. The patient apparently has a history of atrial fibrillation, heart failure, COPD, diabetes mellitus, hyperlipidemia, osteoarthritis, pneumonia, sleep apnea syndrome, chronic kidney disease, stage III, neuropathy, skin cancer, and sleep apnea syndrome. She is a bit lethargic, and difficult to obtain history due to the BiPAP mask. White count 16.1, hemoglobin 10.6, hematocrit 36, platelet count 376,000. PT INR and PTT are normal. Sodium 132, potassium 4.5, chlorides 100, CO2 20, anion gap 12, BUN 26, and creatinine 1.40. Glucose 427. Initial lactic acid was fine. Repeat was 1.4. N-terminal proBNP was 1790. Initial troponin was 0.029, and subsequently, was 0.087. Chest x-ray was reviewed and shows diffuse bilateral infiltrates, and small effusions, consistent with CHF. Progress note dated 10/25/2021. 81-year-old female that we saw yesterday in the emergency room, trauma room #1. She came in with shortness of breath. She was thought to have CHF. She likely has significant valvular heart disease in the form of aortic stenosis. The primary care physician is requesting an evaluation by cardiology and cardiothoracic surgery, determine whether or not the patient could be a candidate for surgical aortic valve replacement, versus transcatheter aortic valve replacement. Currently, the patient's on saline at 10 mL an hour. She's getting O2 2 L by nasal cannula and is getting insulin at 1 unit an hour. She is much more awake and alert today than she was yesterday. Sodium 137, potassium 4.1, chlorides 102, CO2 27, anion gap 8, BUN 44, creatinine 1.59. Calcium is 8.3. Objective - Vital Signs Vital signs: Vital Signs Temp 98.2 F 10/25/21 08:00 Pulse 64 10/25/21 11:03 Resp 18 10/25/21 08:00 BP 146/84 10/25/21 08:00 Pulse Ox 96 10/25/21 08:00 Intake & Output 10/24/21 10/25/21 10/25/21 18:59 06:59 18:59 Intake Total 55.937 Output Total 2300 1900 Balance -2300 -1844.063 Weight 86.183 kg Intake: Intake, IV Titration 55.937 Amount Insulin Regular 100 unit 55.937 In Sodium Chloride 0.9% 100 ml @ Titrate IV .Q0M [facility] Rx#:[id number] Output: Urine 2300 1900 Uretheral (Moore) 2300 1900 Other: Voiding Method Indwelling Catheter - Exam Much improved today, oriented 3, currently on 3 L nasal cannula. No conversational dyspnea or use of accessory muscles. HEENT examination is grossly unremarkable. Neck supple. Full range of motion. No adenopathy thyromegaly or neck vein distention. Cardiovascular examination reveals an irregular rhythm and rate. S1-S2 normal. No S3 or S4. No discernible murmur noted. Heart sounds are distant. Heart rate 64 bpm. Lungs reveal diminished bilateral breath sounds. Crackles and rhonchi are noted . No wheezes. Breath sounds equal bilaterally. Saturations are 96% on 3 L nasal cannula. Abdomen soft bowel sounds are heard. No masses or tenderness. Extremities are intact. No cyanosis clubbing or edema. Skin is without rash or lesion. Neurologic examination is brief but nonfocal. - Labs CBC & Chem 7: 10/24/21 03:11 10/25/21 08:16 Labs: Abnormal Lab Results - Last 24 Hours (Table) 10/24/21 10/24/21 10/24/21 Range/Units 17:05 17:06 19:29 BUN (7-17) mg/dL Creatinine (0.52-1.04) mg/dL Glucose (74-99) mg/dL POC Glucose (mg/dL) 518 H 509 H 508 H (75-99) mg/dL Calcium (8.4-10.2) mg/dL 10/24/21 10/24/21 10/24/21 Range/Units 19:31 20:28 21:11 BUN (7-17) mg/dL Creatinine (0.52-1.04) mg/dL Glucose (74-99) mg/dL POC Glucose (mg/dL) 487 H 443 H 387 H (75-99) mg/dL Calcium (8.4-10.2) mg/dL 10/24/21 10/24/21 10/24/21 Range/Units 21:41 22:10 22:41 BUN (7-17) mg/dL Creatinine (0.52-1.04) mg/dL Glucose (74-99) mg/dL POC Glucose (mg/dL) 320 H 288 H 228 H (75-99) mg/dL Calcium (8.4-10.2) mg/dL 10/24/21 10/25/21 10/25/21 Range/Units 23:40 01:40 02:40 BUN (7-17) mg/dL Creatinine (0.52-1.04) mg/dL Glucose (74-99) mg/dL POC Glucose (mg/dL) 149 H 114 H 115 H (75-99) mg/dL Calcium (8.4-10.2) mg/dL 10/25/21 10/25/21 10/25/21 Range/Units 03:46 04:45 06:22 BUN (7-17) mg/dL Creatinine (0.52-1.04) mg/dL Glucose (74-99) mg/dL POC Glucose (mg/dL) 116 H 133 H 138 H (75-99) mg/dL Calcium (8.4-10.2) mg/dL 10/25/21 10/25/21 10/25/21 Range/Units 08:16 08:55 11:05 BUN 44 H (7-17) mg/dL Creatinine 1.59 H (0.52-1.04) mg/dL Glucose 160 H (74-99) mg/dL POC Glucose (mg/dL) 207 H 182 H (75-99) mg/dL Calcium 8.3 L (8.4-10.2) mg/dL Assessment and Plan Assessment: Acute hypoxemic respiratory failure secondary to CHF. Valvular heart disease in the form of aortic stenosis. Rule out non-ST segment elevation myocardial infarction. History of chronic atrial fibrillation. History of chronic congestive heart failure. Questionable history of COPD, as the patient is a lifelong nonsmoker. History of diabetes mellitus, with diabetic neuropathy. History of hyperlipidemia. History of obstructive sleep apnea syndrome, not currently maintained on CPAP. History of hypothyroidism. Stage III chronic kidney disease. History of vitamin D deficiency. History of skin cancer. Morbid obesity. Plan: Plan dated 10/24/2021. Currently, the patient is on her usual home medications. We will continue to follow ad make recommendations were appropriate. Corticosteroids are not necessary on this patient. The patient is on breathing treatments. She's also getting Lasix 60 mg IV push every 8 hours. Cardiology should be consulted for possible non-ST segment elevation myocardial infarction. Prognosis is guarded. We will continue to follow this patient and make recommendations where appropriate. Plan dated 10/25/2021. I spoke to the primary care provider. The patient will be seen by cardiology and cardiothoracic surgery to determine whether or not she is a candidate for surgical aortic valve replacement transcatheter aortic placement. In addition, the patient will have an echocardiogram. Also, we will go ahead and order a spirometry on her. Additional recommendations and suggestions are forthcoming. She is much better today than she was yesterday. Yesterday, we saw her in the emergency department, and she was on BiPAP. Continue to follow make recommendations where appropriate. Time with Patient: Less than 30
--- NOTE | 2021-10-25 13:47 | P.PN ---
Subjective HISTORY OF PRESENTING ILLNESS Patient is a pleasant 80-year-old female with history of paroxysmal atrial fibrillation (on eliquis), hypertension, hyperlipidemia, COPD, diabetes mellitus type 2, hypothyroidism, prior CVA, chronic kidney disease, nonobstructive coronary artery disease by prior heart catheterization 2014, obstructive sleep apnea, chronic heart failure with preserved ejection fraction 55-60% and moderate aortic stenosis, pneumonia. pleural effusion with right sided thoracentesis in 08/10/2021. Patient normally follows with Dr. Hernandez. We are consulted for congestive heart failure. Patient presents to the emergency department via EMS for worsening shortness of breath, symptoms of orthopnea. Patient states for the past 2 days she has been having symptoms of shortness of breath, dyspnea on exertion, and orthopnea. She normally sleeps with 2 pillows but now she states she has been needing to sleep on her couch with her head elevated. After 2 days her shortness of breath worsened, EMS was called, patient was found in a tripod position, SpO2 was 49% on room air, patient was in respiratory distress and patient was ventilated with a guide valve mask with 100% O2., Patient was then placed on nonrebreather mask. An oxygen saturations increased to 88%. Patient was given a dual nebulizer and albuterol and was transferred to the emergency department. Patient requiring BIPAP in ER, given IV Lasix and albuterol. She also has some non-radiating, non exertional chest pain. Located midsternal. No specific alleviating to aggravating factors, this has improved since admission. 10/25/2021 Patient seen and examined at bedside, no acute distress. Her shortness of breath has improved.she has been weaned to 3 L nasal cannula. 4.2L urine output over 24 hours. Patient is concerned about her aortic valve. Echo revealed, EF 55-60%, severe aortic stenosis with a peak/mean gradient of 49 mmHg/34 mmHg, mild aortic regurgitation, mild to moderate mitral regurgitation, mild tricuspid regurgitation. She is maintained on IV Lasix 60mg Q8hr, Aspirin 81 mg daily, atorvastatin 80 mg nightly, carvedilol 12.5 mg twice a day, hydralazine 100 mg daily lisinopril 40 mg daily Labs: sodium 137, potassium 4.1, BUN 44, serum creatinine 1.5, magnesium 2.0 PHYSICAL EXAMINATION Vital signs reviewed. CONSTITUTIONAL: No apparent distress, obese HEENT: Neck Supple. No JVD. CHEST EXAMINATION: Lungs crackles in the bases to auscultation bilaterally HEART EXAMINATION: Regular rate and rhythm. S1, S2 heard. systolic ejection murmur right sternal border and apex, no gallops or rub. ABDOMEN: Soft, nontender. Positive bowel sounds. EXTREMITIES: 2+ peripheral pulses, No bilateral lower extremity edema and no ca lf tenderness. NEUROLOGIC EXAMINATION: Patient is awake, alert and oriented x3. ASSESSMENT Acute on chronic heart failure with preserved ejection fraction Acute hypoxic respiratory failure Elevated troponin, likely type 2 ID event due to supply and demand mismatch Severe aortic stenosis Paroxysmal atrial fibrillation, currently normal sinus rhythm COPD Hypertension Hyperlipidemia Nonobstructive coronary artery disease by prior heart catheterization 2014 Obstructive sleep apnea Chronic kidney disease Diabetes mellitus type 2 Moderate mitral regurgitation History of pneumonia History of pleural effusion with right sided thoracentesis in 07/2021 PLAN Decrease IV Lasix to 60mg BID Monitor I/os Daily weights, renal function and electrolytes Continue Eliquis, statin, carvedilol, Hydralazine and lisinopril We will discuss with 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 Hernandez in regards to ca rdiac catheterization for aortic stenosis work up Further recommendations based on clinical course Objective - Vital Signs Vital signs: Vital Signs Temp 98.2 F 10/25/21 08:00 Pulse 64 10/25/21 11:03 Resp 18 10/25/21 08:00 BP 146/84 10/25/21 08:00 Pulse Ox 98 10/25/21 11:00 Intake & Output 10/24/21 10/25/21 10/25/21 18:59 06:59 18:59 Intake Total 55.937 Output Total 2300 1900 1300 Balance -2300 -1844.063 -1300 Weight 86.183 kg Intake: Intake, IV Titration 55.937 Amount Insulin Regular 100 unit 55.937 In Sodium Chloride 0.9% 100 ml @ Titrate IV .Q0M [facility] Rx#:[id number] Output: Urine 2300 1900 1300 Uretheral ([place]) 2300 1900 Other: Voiding Method Indwelling Catheter - Labs CBC & Chem 7: 10/24/21 03:11 10/25/21 08:16 Labs: Abnormal Lab Results - Last 24 Hours (Table) 10/24/21 10/24/21 10/24/21 Range/Units 17:05 17:06 19:29 BUN (7-17) mg/dL Creatinine (0.52-1.04) mg/dL Glucose (74-99) mg/dL POC Glucose (mg/dL) 518 H 509 H 508 H (75-99) mg/dL Calcium (8.4-10.2) mg/dL 10/24/21 10/24/21 10/24/21 Range/Units 19:31 20:28 21:11 BUN (7-17) mg/dL Creatinine (0.52-1.04) mg/dL Glucose (74-99) mg/dL POC Glucose (mg/dL) 487 H 443 H 387 H (75-99) mg/dL Calcium (8.4-10.2) mg/dL 10/24/21 10/24/21 10/24/21 Range/Units 21:41 22:10 22:41 BUN (7-17) mg/dL Creatinine (0.52-1.04) mg/dL Glucose (74-99) mg/dL POC Glucose (mg/dL) 320 H 288 H 228 H (75-99) mg/dL Calcium (8.4-10.2) mg/dL 10/24/21 10/25/21 10/25/21 Range/Units 23:40 01:40 02:40 BUN (7-17) mg/dL Creatinine (0.52-1.04) mg/dL Glucose (74-99) mg/dL POC Glucose (mg/dL) 149 H 114 H 115 H (75-99) mg/dL Calcium (8.4-10.2) mg/dL 10/25/21 10/25/21 10/25/21 Range/Units 03:46 04:45 06:22 BUN (7-17) mg/dL Creatinine (0.52-1.04) mg/dL Glucose (74-99) mg/dL POC Glucose (mg/dL) 116 H 133 H 138 H (75-99) mg/dL Calcium (8.4-10.2) mg/dL 10/25/21 10/25/21 10/25/21 Range/Units 08:16 08:55 11:05 BUN 44 H (7-17) mg/dL Creatinine 1.59 H (0.52-1.04) mg/dL Glucose 160 H (74-99) mg/dL POC Glucose (mg/dL) 207 H 182 H (75-99) mg/dL Calcium 8.3 L (8.4-10.2) mg/dL
[2021-10-25 15:50] LABS: Glucose,Whole Blood 228 mg/dL (75-99)
[2021-10-25 16:51] LABS: Glucose,Whole Blood 194 mg/dL (75-99)
[2021-10-25 20:06] LABS: Glucose,Whole Blood 80 mg/dL (75-99)
[2021-10-25] MEDS: ATORVASTATIN 80 MG TAB PO SCH (21:48)
[2021-10-25] MEDS: MELATONIN 5 MG TABLET PO SCH (21:48)
[2021-10-25] MEDS: FUROSEMIDE 10 MG/ML 10 ML VIAL IV SCH (21:48)
[2021-10-26] MEDS: ASPIRIN-ACET-CAFF 250-250-65MG 1 EACH TAB PO PRN (02:27)
[2021-10-26] MEDS: CALCIUM CARBONATE 500 MG CHEWABLE PO PRN (04:33)
[2021-10-26 06:18] LABS: Glucose,Whole Blood 188 mg/dL (75-99)
[2021-10-26] MEDS: LEVOTHYROXINE 125 MCG TAB PO SCH (06:56)
[2021-10-26] MEDS: POTASSIUM CHLORIDE ER 20 MEQ TAB.ER PO SCH (06:57)
[2021-10-26] MEDS: carvediloL 12.5 MG TAB PO SCH ×2 (06:57→17:42)
[2021-10-26] MEDS: INSULIN ASPART (NovoLOG) 100 UNIT/ML VIAL SQ SCH ×7 (06:57→21:30)
[2021-10-26 07:11] LABS: Calcium 8.5 mg/dL (8.4-10.2); Potassium 4.5 mmol/L (3.5-5.1)
[2021-10-26] MEDS: IPRATROPIUM-ALBUTEROL 3 ML NEB INHALATION SCH ×4 (07:54→20:24)
[2021-10-26] MEDS: lisinopriL 20 MG TAB PO SCH (08:42)
[2021-10-26] MEDS: ASPIRIN 81 MG PO SCH (08:42)
[2021-10-26] MEDS: MULTIVITAMINS, THERA 1 EACH TAB PO SCH (08:42)
[2021-10-26] MEDS: APIXABAN 5 MG TAB PO SCH (08:42)
[2021-10-26] MEDS: MAGNESIUM OXIDE 400 MG TAB PO SCH (08:43)
[2021-10-26] MEDS: SERTRALINE 25 MG TAB PO SCH (08:43)
[2021-10-26] MEDS: DOCUSATE 100 MG CAP PO SCH (08:43)
[2021-10-26] MEDS: polyethylene glycoL 3350 17 GM POWD.PACK PO SCH (08:43)
[2021-10-26] MEDS: FUROSEMIDE 10 MG/ML 10 ML VIAL IV SCH (08:43)
[2021-10-26] MEDS: INSULN ASP PRT/INSULIN ASPART 100 UNIT/ML 10 ML VIAL SQ SCH ×2 (08:48→17:43)
--- NOTE | 2021-10-26 11:47 | P.PN ---
Subjective Progress Note Date: 10/26/21 Principal diagnosis: Shortness of breath This is an 81-year-old female, initially seen in the emergency department, trauma room #1. She was initially seen by the ER physician, for shortness of breath. He does note, he mentions, EMS brought the patient to the emergency room, for severe shortness of breath. The patient apparently was mildly unresponsive or poorly responsive for EMS on arrival. The patient apparently was placed on BiPAP therapy, and improved. We are currently seeing her in the ER, on BiPAP, with settings of IPAP 14, EPAP 6, and an FiO2 of 60%. She's not receiving any IV fluids. She is being admitted for possible non-ST segment elevation myocardial infarction, respiratory failure, and congestive heart failure. The patient apparently has a history of atrial fibrillation, heart failure, COPD, diabetes mellitus, hyperlipidemia, osteoarthritis, pneumonia, sleep apnea syndrome, chronic kidney disease, stage III, neuropathy, skin cancer, and sleep apnea syndrome. She is a bit lethargic, and difficult to obtain history due to the BiPAP mask. White count 16.1, hemoglobin 10.6, hematocrit 36, platelet count 376,000. PT INR and PTT are normal. Sodium 132, potassium 4.5, chlorides 100, CO2 20, anion gap 12, BUN 26, and creatinine 1.40. Glucose 427. Initial lactic acid was fine. Repeat was 1.4. N-terminal proBNP was 1790. Initial troponin was 0.029, and subsequently, was 0.087. Chest x-ray was reviewed and shows diffuse bilateral infiltrates, and small effusions, consistent with CHF. Progress note dated 10/25/2021. 81-year-old female that we saw yesterday in the emergency room, trauma room #1. She came in with shortness of breath. She was thought to have CHF. She likely has significant valvular heart disease in the form of aortic stenosis. The primary care physician is requesting an evaluation by cardiology and cardiothoracic surgery, determine whether or not the patient could be a candidate for surgical aortic valve replacement, versus transcatheter aortic valve replacement. Currently, the patient's on saline at 10 mL an hour. She's getting O2 2 L by nasal cannula and is getting insulin at 1 unit an hour. She is much more awake and alert today than she was yesterday. Sodium 137, potassium 4.1, chlorides 102, CO2 27, anion gap 8, BUN 44, creatinine 1.59. Calcium is 8.3. On 10/26/2021 patient seen in follow-up on selective care unit, patient is awake and alert, in no acute distress, she is on 2 L of oxygen pulse ox is 95%, she is on oral Lasix, she is in -2.8 L -12 pounds over last 24 hours, hemodynamically stable, in sinus mechanism. Still has exertional dyspnea, but no distress at rest. Repeat chest x-ray is pending, echocardiogram has been reviewed showing EF of 55-60% severe aortic stenosis, peak/mean gradient across the aortic valve of 48.9 mmHg/33.8 mmHg. Mild to moderate MR, mild TR, mild pulmonary hypertension with right ventricular systolic pressure of 38.8 mmHg. Today's labs have been reviewed, sodium is 136, potassium is 4.5, chloride is 103, BUN is 53, creatinine is 1.68. No complaints of chest pain. No cough, no worsening dyspnea. Cardiology is following, and patient is expected to have cardiac catheterization for aortic stenosis workup. Objective - Vital Signs Vital signs: Vital Signs Temp 98.2 F 10/26/21 09:30 Pulse 56 L 10/26/21 11:23 Resp 16 10/26/21 09:30 BP 97/55 10/26/21 09:30 Pulse Ox 94 L 10/26/21 09:30 Intake & Output 10/25/21 10/26/21 10/26/21 18:59 06:59 18:59 Intake Total 600 Output Total 1300 1510 400 Balance -1300 -1510 200 Intake: Oral 600 Output: Urine 1300 1510 400 Uretheral (Moore) 1510 Other: Voiding Method Indwelling Catheter Indwelling Catheter - Exam GENERAL EXAM: Alert, very pleasant, 81-year-old white female, 3 L oxygen with pulse ox of 94%, comfortable in no apparent distress. HEAD: Normocephalic/atraumatic. EYES: Normal reaction of pupils, equal size. Conjunctiva pink, sclera white. NOSE: Clear with pink turbinates. THROAT: No erythema or exudates. NECK: No masses, no JVD, no thyroid enlargement, no adenopathy. CHEST: No chest wall deformity. Symmetrical expansion. LUNGS: Equal air entry with no crackles, wheeze, rhonchi or dullness. CVS: Regular rate and rhythm, normal S1 and S2, no gallops, no murmurs, no rubs ABDOMEN: Soft, nontender. No hepatosplenomegaly, normal bowel sounds, no guarding or rigidity. EXTREMITIES: No clubbing, no edema, no cyanosis, 2+ pulses and upper and lower extremities. MUSCULOSKELETAL: Muscle strength and tone normal. SPINE: No scoliosis or deformity SKIN: No rashes CENTRAL NERVOUS SYSTEM: Alert and oriented -3. No focal deficits, tone is normal in all 4 extremities. PSYCHIATRIC: Alert and oriented -3. Appropriate affect. Intact judgment and insight. - Labs CBC & Chem 7: 10/24/21 03:11 10/26/21 06:20 Labs: Abnormal Lab Results - Last 24 Hours (Table) 10/25/21 10/25/21 10/26/21 Range/Units 15:49 16:49 06:17 Sodium (137-145) mmol/L BUN (7-17) mg/dL Creatinine (0.52-1.04) mg/dL Glucose (74-99) mg/dL POC Glucose (mg/dL) 228 H 194 H 188 H (75-99) mg/dL 10/26/21 Range/Units 06:20 Sodium 136 L (137-145) mmol/L BUN 53 H (7-17) mg/dL Creatinine 1.68 H (0.52-1.04) mg/dL Glucose 191 H (74-99) mg/dL POC Glucose (mg/dL) (75-99) mg/dL Assessment and Plan Plan: Assessment: #1. Acute hypoxic respiratory failure secondary to CHF with diastolic dysfunction #2. Elevated troponin, related to supply demand mismatch #3. Severe aortic stenosis #4. Paroxysmal atrial fibrillation, currently in sinus rhythm #5. COPD #6. Hypertension #7. Hyperlipidemia #8. Nonobstructive coronary artery disease by prior heart catheterization 2014 #9. Obstructive sleep apnea #10. Chronic kidney disease #11. Diabetes mellitus type 2 #12. Moderately severe mitral regurgitation #13. History of pneumonia #14. Previous history of right-sided thoracentesis for right pleural effusion Plan: Repeat chest x-ray is pending Diuretics per cardiology recommendations Continue oral anticoagulation, continue statins, beta blockers and radha inhibitors Clinically patient denies any worsening dyspnea or hypoxia Did not require BiPAP support last night Possible cardiac catheterization for workup of aortic valve stenosis I have personally seen and examined the patient, performed the documentation and the assessment and plan as written. Number of minutes spent on the visit: [10] Time with Patient: Less than 30
[2021-10-26 11:52] LABS: Glucose,Whole Blood 209 mg/dL (75-99)
--- NOTE | 2021-10-26 11:59 | XR ---
EXAMINATION TYPE: XR chest 1V portable DATE OF EXAM: 10/26/2021 COMPARISON: 10/24/2021 HISTORY: Shortness of breath TECHNIQUE: Single frontal view of the chest is obtained. FINDINGS: Right basilar infiltrate. There is atherosclerotic change aorta. No pneumothorax. Scleroti c density right humeral head likely representing a bone infarct or chondroid lesion. Arthropathy shou lders. Ossified or calcified density overlying the left axilla. IMPRESSION: Bibasilar atelectasis or early infiltrate improved from prior exam of 10/24/2021
[2021-10-26] MEDS ORDERED: MAGNESIUM HYDROXIDE 2,400 MG/10 ML CUP PO PRN (12:55)
[2021-10-26] MEDS: hydrALAZINE HCL 50 MG TAB PO SCH ×4 (13:03→21:29)
--- NOTE | 2021-10-26 13:04 | P.PN ---
Subjective Progress Note Date: 10/26/21 This is a 81-year-old female patient of Dr. Dawn/Henri Mejía [employer] DES[employer] and Dr. 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 Amaya for pain management. Asked hospitalization was in March 2021 for acute on chronic diastolic heart failure. At that time echocardiogram revealed EF of 55-60% with severe concentric left ventricular hypertrophy, moderate aortic stenosis, moderate mitral regurgitation, mild tricuspid regurgitation, mild pulmonary hypertension. Patient apparently seen pulmonary Dr. regular basis was supposed to have pulmonary function tests today patient has been having significant shortness of breath and dyspnea for the last few days become much worse today ended up calling 911 and brought to the emergency department by EMS in found to be in extreme acute respiratory failure with poor response to management, patient was placed on BiPAP at the time, started on IV furosemide, first set of lab shows white blood cell 16,000 and hemoglobin of 10.7, initial troponin was 0.0-29 and up to 0.0873 EKG didn't show any major abnormality changes the time. Glucose was quite bit high at 427 with normal lactic acid her creatinine was 1.4 close to her baseline her BNP was 1790 chest x-ray showed diffuse bilateral infiltrate and small effusion with CHF. Patient was started on BiPAP with elevated troponin be seen cardiology for non- ST CA also be seen pulmonary clinic transfer patient to the ICU currently. 10/25: Patient is doing much better today she made it to the floor she is off BiPAP completely she is on oxygen only looks like she ended up having a flush pulmonary edema from most likely cardiac event more than pulmonary. Review her echocardiogram from yesterday showed moderate to severe aortic stenosis with a gradient of 48.9 patient might require to have something done to fix it. Patient troponin was slightly bit elevated yesterday and still seeing cardiology this point the plan probably to have cardiology do heart catheter to find out if patient had any blockage consistent with coronary artery disease and prepare for valve surgery or TAVR. 10/26: Patient is doing better today continue to have slight congestion, Sunday her kidney function and decline slight bit compared to yesterday and day before we'll consult nephrology to see if there is any need for change in medication or plan in the meanwhile cardiology still planning to do heart catheter when his save for the kidney. REVIEW OF SYSTEMS Constitutional: No fever, no chills, no night sweats. No weight change. No weakness, fatigue or lethargy. No daytime sleepiness. EENT: Reported headache. No blurred vision or double vision, no loss of vision. No loss of Hearing, no ringing in the ears, no dizziness. No nasal drainage or congestion. No epistaxis. No sore throat. Lungs: Significant shortness of breath and respiratory failure, on BiPAP and high flow oxygen along with updraft treatment. Cardiovascular: Reported chest pain, positive lower extremity edema. No palpitations. No paroxysmal nocturnal dyspnea. No orthopnea. No lightheadedness or dizziness. Reports syncopal episodes. Abdominal: No abdominal pain. No nausea, vomiting. No diarrhea. No constipation. No bloody or tarry stools. No loss of appetite. Genitourinary: Reported dysuria, no increased frequency, no urgency. No urinary retention. Musculoskeletal: No myalgias. No muscle weakness, no gait dysfunction, no frequent falls. No back pain. No neck pain. Integumentary: No wounds, no lesions. No rash or pruritus. No unusual bruising. No change in hair or nails. Neurologic: No aphasia. No facial droop. No change in mentation. No head injury. No headache. No paralysis. No paresthesia. Psychiatric: No depression. Reports anxiety. No mood swings. Endocrine: Noted abnormal blood sugars. No weight change. PHYSICAL EXAMINATION Gen: This is a 81-year-old female, obese, patient is laying in bed has BiPAP on Lyrica mild respiratory distress. HEENT: Head is atraumatic, normocephalic. Pupils equal, round. Sclerae is anicteric. NECK: Supple. No JVD. No lymphadenopathy. No thyromegaly. LUNGS: Decreased for some tooth, has mild crackles in bases specially the right side has mild respiratory expected wheezes. HEART: Regular rate and rhythm. 3/6 systolic murmur. S1, S2, positive S3. ABDOMEN: Soft. Bowel sounds are present. No masses. No tenderness. EXTREMITIES: 1+ bilateral pedal edema. No calf tenderness. Dorsalis pedis +2 bilaterally. NEUROLOGICAL: Patient is awake, alert and oriented x3. Cranial nerves 2 through 12 are grossly intact. ASSESSMENT AND PLAN 1 acute hypoxic respiratory failure: Secondary to CHF exacerbation probably COPD: On O2. 2 non-ST segment elevation myocardial infarction: With troponin being elevated patient probably should go for heart cath for finding out the coronary artery anatomy and prepare for her valve procedure. 3 congestive heart failure exacerbation: Mostly diastolic's function, patient remain on furosemide, Coreg might benefit from small dose of BISI inhibitor, will watch daily weight and fluid intake. Any kidney function her furosemide need to be slightly change at the time. 4 moderate to severe aortic stenosis: Patient will need to have her coronary artery anatomy checked and prepare for either valve replacement or for doing TAVR 5 COPD with excessive patient: Patient is lifelong nonsmoker but she lived with a smoker for over 50 years more than 2 pack a day, continue steroid, continue BiPAP will continue patient on updraft treatment [id number]. 6 Paroxysmal atrial fibrillation continue eliquis 5 mg twice daily, Coreg 12.5 mg twice daily. 7 acute kidney injury with chronic stage III chronic kidney disease, consult nephrology repeat CMP tomorrow patient probably would not be able to go for heart cath tomorrow with the current GFR and creatinine. 8 hypertension: Remain on amlodipine 10 mg a day Coreg 12.5 mg twice a day hydralazine 50 mg 2 times a day continue lisinopril 40 mg daily as well. 9 type 2 diabetes: Has been on next Humalog 75/25 30 units in the morning 20 units the evening, still on pioglitazone 15 mg daily which will be held for now and continue short acting insulin per sliding scales coverage. 10 chronic anticoagulation management: A Chin remain on Eliquis 5 mg twice a day. 11 Hypothyroidism. Continue levothyroxine 125 g daily. 12. Degenerative disc disease with chronic pain. Follows with pain management with Dr. Amaya. 13. Hyperlipidemia. Continue Lipitor 80 mg at bedtime. 14. Chronic anemia. Continue ferrous sulfate 325 mg daily. 15 obstructive sleep apnea: Currently not using CPAP will require further management. Patient is more stable slight declining kidney function, heart catheter will be delayed history 4 hours still patient evaluated by nephrology in to see slight improvement on her kidney function compared to before. Objective - Vital Signs Vital signs: Vital Signs Temp 98.2 F 10/26/21 09:30 Pulse 56 L 10/26/21 11:23 Resp 16 10/26/21 09:30 BP 97/55 10/26/21 09:30 Pulse Ox 94 L 10/26/21 09:30 Intake & Output 10/25/21 10/26/21 10/26/21 18:59 06:59 18:59 Intake Total 600 Output Total 1300 1510 400 Balance -1300 -1510 200 Intake: Oral 600 Output: Urine 1300 1510 400 Uretheral (Moore) 1510 Other: Voiding Method Indwelling Catheter Indwelling Catheter - Labs CBC & Chem 7: 10/24/21 03:11 10/26/21 06:20 Labs: Abnormal Lab Results - Last 24 Hours (Table) 10/25/21 10/25/21 10/26/21 Range/Units 15:49 16:49 06:17 Sodium (137-145) mmol/L BUN (7-17) mg/dL Creatinine (0.52-1.04) mg/dL Glucose (74-99) mg/dL POC Glucose (mg/dL) 228 H 194 H 188 H (75-99) mg/dL 10/26/21 10/26/21 Range/Units 06:20 11:50 Sodium 136 L (137-145) mmol/L BUN 53 H (7-17) mg/dL Creatinine 1.68 H (0.52-1.04) mg/dL Glucose 191 H (74-99) mg/dL POC Glucose (mg/dL) 209 H (75-99) mg/dL
--- NOTE | 2021-10-26 13:19 | P.PN ---
Subjective HISTORY OF PRESENTING ILLNESS Patient is a pleasant 80-year-old female with history of paroxysmal atrial fibrillation (on eliquis), hypertension, hyperlipidemia, COPD, diabetes mellitus type 2, hypothyroidism, prior CVA, chronic kidney disease, nonobstructive coronary artery disease by prior heart catheterization 2014, obstructive sleep apnea, chronic heart failure with preserved ejection fraction 55-60% and moderate aortic stenosis, pneumonia. pleural effusion with right sided thoracentesis in 08/10/2021. Patient normally follows with Dr. Hernandez. We are consulted for congestive heart failure. Patient presents to the emergency department via EMS for worsening shortness of breath, symptoms of orthopnea. Patient states for the past 2 days she has been having symptoms of shortness of breath, dyspnea on exertion, and orthopnea. She normally sleeps with 2 pillows but now she states she has been needing to sleep on her couch with her head elevated. After 2 days her shortness of breath worsened, EMS was called, patient was found in a tripod position, SpO2 was 49% on room air, patient was in respiratory distress and patient was ventilated with a guide valve mask with 100% O2., Patient was then placed on nonrebreather mask. An oxygen saturations increased to 88%. Patient was given a dual nebulizer and albuterol and was transferred to the emergency department. Patient requiring BIPAP in ER, given IV Lasix and albuterol. She also has some non-radiating, non exertional chest pain. Located midsternal. No specific alleviating to aggravating factors, this has improved since admission. 10/26/2021 Patient seen and examined at bedside, no acute distress. Her shortness of breath has improved. She has been weaned to 3 L nasal cannula, and stable on this. 2.8L urine output over 24 hours. Patient is concerned about her aortic valve. Echo revealed, EF 55-60%, severe aortic stenosis with a peak/mean gradient of 49 mmHg/34 mmHg, mild aortic regurgitation, mild to moderate mitral regurgitation, mild tricuspid regurgitation. She is maintained on IV Lasix 60mg BID, Aspirin 81 mg daily, atorvastatin 80 mg nightly, carvedilol 12.5 mg twice a day, hydralazine 100 mg daily lisinopril 40 mg daily Labs: sodium 136, potassium 4.5, BUN 53, serum creatinine 1.68, PHYSICAL EXAMINATION Vital signs reviewed. CONSTITUTIONAL: No apparent distress, obese HEENT: Neck Supple. No JVD. CHEST EXAMINATION: Lungs are diminished in the bases to auscultation bilaterally HEART EXAMINATION: Regular rate and rhythm. S1, S2 heard. systolic ejection murmur right sternal border and apex, no gallops or rub. ABDOMEN: Soft, nontender. Positive bowel sounds. EXTREMITIES: 2+ peripheral pulses, No bilateral lower extremity edema and no calf tenderness. NEUROLOGIC EXAMINATION: Patient is awake, alert and oriented x3. ASSESSMENT Acute on chronic heart failure with preserved ejection fraction Acute hypoxic respiratory failure Elevated troponin, likely type 2 NC event due to supply and demand mismatch Severe aortic stenosis Paroxysmal atrial fibrillation, currently normal sinus rhythm COPD Hypertension Hyperlipidemia Nonobstructive coronary artery disease by prior heart catheterization 2014 Obstructive sleep apnea Chronic kidney disease Diabetes mellitus type 2 Moderate mitral regurgitation History of pneumonia History of pleural effusion with right sided thoracentesis in 07/2021 PLAN Transition to PO Lasix 40mg BID Monitor I/os Daily weights, renal function and electrolytes Continue Eliquis, statin, carvedilol, Hydralazine and lisinopril We will discuss with patient's primary brake specialist Dr. Hernandez in regards to cardiac catheterization for aortic stenosis work up. Possible cardiac catheterization tomorrow 10/27 NPO after midnight Further recommendations based on clinical course Objective - Vital Signs Vital signs: Vital Signs Temp 98.2 F 10/26/21 09:30 Pulse 56 L 10/26/21 11:23 Resp 16 10/26/21 09:30 BP 97/55 10/26/21 09:30 Pulse Ox 94 L 10/26/21 09:30 Intake & Output 10/25/21 10/26/21 10/26/21 18:59 06:59 18:59 Intake Total 600 Output Total 1300 1510 400 Balance -1300 -1510 200 Intake: Oral 600 Output: Urine 1300 1510 400 Uretheral (Moore) 1510 Other: Voiding Method Indwelling Catheter Indwelling Catheter - Labs CBC & Chem 7: 10/24/21 03:11 10/26/21 06:20 Labs: Abnormal Lab Results - Last 24 Hours (Table) 10/25/21 10/25/21 10/26/21 Range/Units 15:49 16:49 06:17 Sodium (137-145) mmol/L BUN (7-17) mg/dL Creatinine (0.52-1.04) mg/dL Glucose (74-99) mg/dL POC Glucose (mg/dL) 228 H 194 H 188 H (75-99) mg/dL 10/26/21 10/26/21 Range/Units 06:20 11:50 Sodium 136 L (137-145) mmol/L BUN 53 H (7-17) mg/dL Creatinine 1.68 H (0.52-1.04) mg/dL Glucose 191 H (74-99) mg/dL POC Glucose (mg/dL) 209 H (75-99) mg/dL
[2021-10-26 14:36] LABS: Glucose,Whole Blood 213 mg/dL (75-99)
[2021-10-26] MEDS ORDERED: FUROSEMIDE 40 MG TAB PO SCH (16:00)
[2021-10-26 16:43] LABS: Glucose,Whole Blood 121 mg/dL (75-99)
--- NOTE | 2021-10-26 17:55 | CONS ---
CONSULTATION REASON FOR CONSULT: Renal failure. HISTORY OF PRESENT ILLNESS: Patient is an 81-year-old female with history of chronic kidney disease, NKF stage 3B, with previous creatinine around 1.3 to 1.4 mg/dL. Patient also has history of hypertension, type 2 diabetes. She is admitted to the hospital with significant shortness of breath and acute hypoxic respiratory failure. She was found to be in CHF with volume overload and also ruled in for [id number] LA. Patient's serum creatinine was 1.4 on 10/24/ . It increased to 1.68 today. She is maintained on BISI inhibitors. Systolic blood pressure has been on the lower side today with systolic of 97 mmHg. Patient has an indwelling Moore catheter with 24-hour urine output documented at 2.8 L. Patient has been recently diuresed. She is currently maintained on Lasix, which was switched to p.o. starting tomorrow. Patient has not followed up in the office for CKD in the last two years or so. PAST MEDICAL HISTORY: Significant for atrial fibrillation, CHF, COPD, type 2 diabetes, hypertension, hyperlipidemia, osteoarthritis, obstructive sleep apnea, hypothyroidism, stage 3A CKD, chronic back pain, constipation, neuropathy. PAST SURGICAL HISTORY: Adenoidectomy, cholecystectomy, cardiac catheterization, hysterectomy, tonsillectomy, carpal tunnel release, skin cancer removal, colonoscopies. SOCIAL HISTORY: Negative for smoking, drug abuse or alcohol abuse. MEDICATIONS: Medications prior to admission included insulin, Lipitor, Eliquis, lisinopril, Synthroid, Coreg, Actos, Lasix, Zoloft, Antivert, aspirin, amlodipine, melatonin, Imdur, magnesium. ALLERGIES: ALLERGIES INCLUDE ZITHROMAX, MEDROL, BACTRIM causes rash and hives and HYDROCHLOROTHIAZIDE, which caused her to be weak. REVIEW OF SYSTEMS: As per HPI. Other systems negative. PHYSICAL EXAMINATION: Patient comfortable, awake, not in any acute distress. Blood pressure 124/74, heart rate 52 per minute. She is afebrile. Examination of the heart: S1, S2. Examination of the lungs: Bilateral breath sounds are heard. Decreased breath sounds at the bases. CINETECHNICIAN exam is grossly intact. Examination lower extremities shows no significant edema. LABS: Sodium 136, potassium 4.5, chloride 103, BUN 53, creatinine 1.68. ASSESSMENT: 1. Acute kidney injury, acute tubular necrosis, mostly cardiorenal, with a component of low blood pressure noted as well. Patient is maintained on BISI inhibitors. I will decrease the dose of lisinopril, as systolic blood pressure was low at 97 mmHg today. 2. Acute [id number] myocardial infarction, being followed by Cardiology with consideration for cardiac catheterization tomorrow. 3. Chronic kidney disease, NKF stage 3A, with baseline creatinine about 1.3 to 1.4 mg/dL. Etiology is nephrosclerosis. Previous UA in August had trace proteinuria. 4. Congestive heart failure and volume overload, status post diuresis, currently switched to oral Lasix; mostly diastolic. 5. Hypertension; blood pressure fairly well controlled, slightly on the lower side. I will decrease dose of lisinopril. We can increase Coreg if needed. 6. Atrial fibrillation, maintained on Eliquis. Heart rate is on the lower side. PLAN: Decrease lisinopril to 10 mg daily. Recommend to hold off on cardiac catheterization unless absolutely necessary. Currently patient is [id number] and asymptomatic. Hopefully her renal function will stabilize in the next 1 to 2 days. Thank you for this consultation. Will continue to follow the patient with you during her hospitalization. MMODL / IJN: [id number] /
[2021-10-26 20:19] LABS: Glucose,Whole Blood 134 mg/dL (75-99)
[2021-10-26 20:19] LABS: Appearance,Urine Clear (Clear); Bacteria,Urine Many /hpf; Bilirubin,Urine Negative (Negative); Blood,Urine Small (Negative); Color,Urine Yellow; Glucose,Urine (UA) Negative (Negative); Hyaline Casts,Urine 1 /lpf (0-2); Ketones,Urine Negative (Negative); Leukocyte Esterase,Urine Moderate (Negative); Nitrite,Urine Positive (Negative); Protein,Urine 1+ (Negative); RBC,Urine 102 /hpf (0-5); Squamous Epithelial Cell,Urine 1 /hpf (0-4); Urobilinogen,Urine <2.0 mg/dL (<2.0); WBC,Urine 21 /hpf (0-5)
[2021-10-26] MEDS: ATORVASTATIN 80 MG TAB PO SCH (21:29)
[2021-10-26] MEDS: MELATONIN 5 MG TABLET PO SCH (21:29)
[2021-10-26] MEDS: APIXABAN 2.5 MG TABLET PO SCH (21:34)
[2021-10-27] MEDS: ASPIRIN-ACET-CAFF 250-250-65MG 1 EACH TAB PO PRN ×2 (00:08→21:59)
[2021-10-27 04:06] VITALS: RESP 16
[2021-10-27 06:32] LABS: Glucose,Whole Blood 143 mg/dL (75-99)
[2021-10-27] MEDS: INSULIN ASPART (NovoLOG) 100 UNIT/ML VIAL SQ SCH ×7 (06:41→21:29)
[2021-10-27] MEDS: POTASSIUM CHLORIDE ER 20 MEQ TAB.ER PO SCH (06:45)
[2021-10-27] MEDS: LEVOTHYROXINE 125 MCG TAB PO SCH (06:45)
[2021-10-27] MEDS: carvediloL 12.5 MG TAB PO SCH ×2 (06:45→17:15)
[2021-10-27] MEDS: IPRATROPIUM-ALBUTEROL 3 ML NEB INHALATION SCH ×4 (08:38→19:53)
[2021-10-27] MEDS: INSULN ASP PRT/INSULIN ASPART 100 UNIT/ML 10 ML VIAL SQ SCH ×3 (08:41→17:15)
[2021-10-27] MEDS: MULTIVITAMINS, THERA 1 EACH TAB PO SCH (08:42)
[2021-10-27] MEDS: polyethylene glycoL 3350 17 GM POWD.PACK PO SCH (08:42)
[2021-10-27] MEDS: DOCUSATE 100 MG CAP PO SCH (08:45)
[2021-10-27] MEDS: SERTRALINE 25 MG TAB PO SCH (08:45)
[2021-10-27] MEDS: MAGNESIUM OXIDE 400 MG TAB PO SCH (08:45)
[2021-10-27] MEDS: hydrALAZINE HCL 50 MG TAB PO SCH ×3 (08:45→21:34)
[2021-10-27] MEDS: ASPIRIN 81 MG PO SCH (08:45)
[2021-10-27] MEDS: APIXABAN 2.5 MG TABLET PO SCH ×2 (08:45→21:34)
[2021-10-27 08:59] LABS: HCT 33.7 % (34.0-46.0); HGB 10.3 gm/dL (11.4-16.0); Hypochromasia Marked; MCH 28.3 pg (25.0-35.0); MCHC 30.5 g/dL (31.0-37.0); MCV 92.8 fL (80.0-100.0); Platelet Count 270 k/uL (150-450); RBC 3.63 m/uL (3.80-5.40); RDW 14.1 % (11.5-15.5); WBC 9.8 k/uL (3.8-10.6)
[2021-10-27 09:22] LABS: Albumin 2.9 g/dL (3.5-5.0); Calcium 8.1 mg/dL (8.4-10.2); Potassium 4.9 mmol/L (3.5-5.1); Total Bilirubin 0.5 mg/dL (0.2-1.3); Total Protein 5.7 g/dL (6.3-8.2)
[2021-10-27] MEDS: FUROSEMIDE 40 MG TAB PO SCH ×2 (09:37→17:15)
[2021-10-27] MEDS: lisinopriL 10 MG TAB PO SCH (09:37)
[2021-10-27 11:48] LABS: Glucose,Whole Blood 333 mg/dL (75-99)
--- NOTE | 2021-10-27 11:56 | P.PN ---
Subjective Progress Note Date: 10/27/21 This is a 81-year-old female patient of Dr. Dawn/Henri Mejía THERAPEUTIC RECREATION SPECIALIST and Dr. 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 Amaya for pain management. Asked hospitalization was in March 2021 for acute on chronic diastolic heart failure. At that time echocardiogram revealed EF of 55-60% with severe concentric left ventricular hypertrophy, moderate aortic stenosis, moderate mitral regurgitation, mild tricuspid regurgitation, mild pulmonary hypertension. Patient apparently seen pulmonary Dr. regular basis was supposed to have pulmonary function tests today patient has been having significant shortness of breath and dyspnea for the last few days become much worse today ended up calling 911 and brought to the emergency department by EMS in found to be in extreme acute respiratory failure with poor response to management, patient was placed on BiPAP at the time, started on IV furosemide, first set of lab shows white blood cell 16,000 and hemoglobin of 10.7, initial troponin was 0.0-29 and up to 0.0873 EKG didn't show any major abnormality changes the time. Glucose was quite bit high at 427 with normal lactic acid her creatinine was 1.4 close to her baseline her BNP was 1790 chest x-ray showed diffuse bilateral infiltrate and small effusion with CHF. Patient was started on BiPAP with elevated troponin be seen cardiology for non- ST [place] also be seen pulmonary clinic transfer patient to the ICU currently. 10/25: Patient is doing much better today she made it to the floor she is off BiPAP completely she is on oxygen only looks like she ended up having a flush pulmonary edema from most likely cardiac event more than pulmonary. Review her echocardiogram from yesterday showed moderate to severe aortic stenosis with a gradient of 48.9 patient might require to have something done to fix it. Patient troponin was slightly bit elevated yesterday and still seeing cardiology this point the plan probably to have cardiology do heart catheter to find out if patient had any blockage consistent with coronary artery disease and prepare for valve surgery or TAVR. 10/26: Patient is doing better today continue to have slight congestion, Sunday her kidney function and decline slight bit compared to yesterday and day before we'll consult nephrology to see if there is any need for change in medication or plan in the meanwhile cardiology still planning to do heart catheter when his save for the kidney. 10/27: Patient is doing much better today has improved significantly clinically, kidney function is not much different and at this point her heart catheter would be canceled and we arrange for an outpatient basis in the near future. We will titrate physical therapy and occupational therapy along with having social work job titles seen patient for any home care need. Continue hydration repeat lab by tomorrow if patient is doing well hopefully will be discharged tomorrow to follow-up with her utilization coordinator and primary care within 1 week. REVIEW OF SYSTEMS Constitutional: No fever, no chills, no night sweats. No weight change. No weakness, fatigue or lethargy. No daytime sleepiness. EENT: Reported headache. No blurred vision or double vision, no loss of vision. No loss of Hearing, no ringing in the ears, no dizziness. No nasal drainage or congestion. No epistaxis. No sore throat. Lungs: Significant shortness of breath and respiratory failure, on BiPAP and high flow oxygen along with updraft treatment. Cardiovascular: Reported chest pain, positive lower extremity edema. No palpitations. No paroxysmal nocturnal dyspnea. No orthopnea. No lightheadedness or dizziness. Reports syncopal episodes. Abdominal: No abdominal pain. No nausea, vomiting. No diarrhea. No con stipation. No bloody or tarry stools. No loss of appetite. Genitourinary: Reported dysuria, no increased frequency, no urgency. No urinary retention. Musculoskeletal: No myalgias. No muscle weakness, no gait dysfunction, no frequent falls. No back pain. No neck pain. Integumentary: No wounds, no lesions. No rash or pruritus. No unusual bruising. No change in hair or nails. Neurologic: No aphasia. No facial droop. No change in mentation. No head injury. No headache. No paralysis. No paresthesia. Psychiatric: No depression. Reports anxiety. No mood swings. Endocrine: Noted abnormal blood sugars. No weight change. PHYSICAL EXAMINATION Gen: This is a 81-year-old female, obese, patient is laying in bed has BiPAP on Lyrica mild respiratory distress. HEENT: Head is atraumatic, normocephalic. Pupils equal, round. Sclerae is anicteric. NECK: Supple. No JVD. No lymphadenopathy. No thyromegaly. LUNGS: Decreased for some tooth, has mild crackles in bases specially the right side has mild respiratory expected wheezes. HEART: Regular rate and rhythm. 3/6 systolic murmur. S1, S2, positive S3. ABDOMEN: Soft. Bowel sounds are present. No masses. No tenderness. EXTREMITIES: 1+ bilateral pedal edema. No calf tenderness. Dorsalis pedis +2 bilaterally. NEUROLOGICAL: Patient is awake, alert and oriented x3. Cranial nerves 2 through 12 are grossly intact. ASSESSMENT AND PLAN 1 acute hypoxic respiratory failure: Secondary to CHF exacerbation probably COPD: Off O2 and doing very well. 2 non-ST segment elevation myocardial infarction: 1 and was elevated the planned revision with cardiology to go for heart cath the patient creatinine is much worse catheter will be canceled for now and possibly to be done as an outpatient in the near future. 3 congestive heart failure exacerbation: Mostly diastolic's function, patient remain on furosemide, Coreg might benefit from small dose of BISI inhibitor, will watch daily weight and fluid intake. Any kidney function her furosemide need to be slightly change at the time. Tinnitus titrate medication watch her fluid intake carefully. 4 moderate to severe aortic stenosis: Patient will need to have her coronary artery anatomy checked and prepare for either valve replacement or for doing TAVR. Heart catheter cannot be done at this point patient to be reevaluated again by her utilization coordinator as an outpatient in the next week or so. 5 COPD with excessive patient: Patient is lifelong nonsmoker but she lived with a smoker for over 50 years more than 2 pack a day, continue steroid, continue BiPAP will continue patient on updraft treatment [id number]. 6 Paroxysmal atrial fibrillation continue eliquis 5 mg twice daily, Coreg 12.5 mg twice daily. 7 acute kidney injury with chronic stage III chronic kidney disease, consult nephrology repeat CMP tomorrow patient probably would not be able to go for heart cath tomorrow with the current GFR and creatinine. 8 hypertension: Remain on amlodipine 10 mg a day Coreg 12.5 mg twice a day hydralazine 50 mg 2 times a day continue lisinopril 40 mg daily as well. 9 type 2 diabetes: Has been on next Humalog 75/25 30 units in the morning 20 units the evening, still on pioglitazone 15 mg daily which will be held for now and continue short acting insulin per sliding scales coverage. 10 chronic anticoagulation management: A Chin remain on Eliquis 5 mg twice a day. 11 Hypothyroidism. Continue levothyroxine 125 g daily. 12. Degenerative disc disease with chronic pain. Follows with pain management with Dr. Amaya. 13. Hyperlipidemia. Continue Lipitor 80 mg at bedtime. 14. Chronic anemia. Continue ferrous sulfate 325 mg daily. 15 obstructive sleep apnea: Currently not using CPAP will require further management. Patient is very stable at this point we'll repeat BUN/creatinine tomorrow titrate physical therapy and the patient therapy make sure patient is safe up being discharge and will try to discharge patient home tomorrow with home care. Objective - Vital Signs Vital signs: Vital Signs Temp 97.5 F L 10/27/21 07:51 Pulse 66 10/27/21 08:49 Resp 16 10/27/21 07:51 BP 118/56 10/27/21 07:51 Pulse Ox 98 10/27/21 08:38 Intake & Output 10/26/21 10/27/21 10/27/21 18:59 06:59 18:59 Intake Total 840 Output Total 1100 925 100 Balance -260 -925 -100 Weight 86.183 kg Intake: Oral 840 Output: Urine 1100 925 100 Uretheral (Moore) 300 Other: Voiding Method Indwelling Catheter Indwelling Catheter # Voids 1 # Bowel Movements 1 - Labs CBC & Chem 7: 10/27/21 08:03 10/27/21 08:03 Labs: Abnormal Lab Results - Last 24 Hours (Table) 10/26/21 10/26/21 10/26/21 Range/Units 14:34 16:42 18:15 RBC (3.80-5.40) m/uL Hgb (11.4-16.0) gm/dL Hct (34.0-46.0) % MCHC (31.0-37.0) g/dL Sodium (137-145) mmol/L BUN (7-17) mg/dL Creatinine (0.52-1.04) mg/dL Glucose (74-99) mg/dL POC Glucose (mg/dL) 213 H 121 H (75-99) mg/dL Calcium (8.4-10.2) mg/dL Total Protein (6.3-8.2) g/dL Albumin (3.5-5.0) g/dL Urine Protein 1+ H (Negative) Urine Blood Small H (Negative) Urine Nitrite Positive H (Negative) Ur Leukocyte Esterase Moderate H (Negative) Urine RBC 102 H (0-5) /hpf Urine WBC 21 H (0-5) /hpf Urine Bacteria Many H (None) /hpf 10/26/21 10/27/21 10/27/21 Range/Units 20:17 06:30 08:03 RBC (3.80-5.40) m/uL Hgb (11.4-16.0) gm/dL Hct (34.0-46.0) % MCHC (31.0-37.0) g/dL Sodium 135 L (137-145) mmol/L BUN 53 H (7-17) mg/dL Creatinine 1.67 H (0.52-1.04) mg/dL Glucose 173 H (74-99) mg/dL POC Glucose (mg/dL) 134 H 143 H (75-99) mg/dL Calcium 8.1 L (8.4-10.2) mg/dL Total Protein 5.7 L (6.3-8.2) g/dL Albumin 2.9 L (3.5-5.0) g/dL Urine Protein (Negative) Urine Blood (Negative) Urine Nitrite (Negative) Ur Leukocyte Esterase (Negative) Urine RBC (0-5) /hpf Urine WBC (0-5) /hpf Urine Bacteria (None) /hpf 10/27/21 10/27/21 Range/Units 08:03 11:47 RBC 3.63 L (3.80-5.40) m/uL Hgb 10.3 L (11.4-16.0) gm/dL Hct 33.7 L (34.0-46.0) % MCHC 30.5 L (31.0-37.0) g/dL Sodium (137-145) mmol/L BUN (7-17) mg/dL Creatinine (0.52-1.04) mg/dL Glucose (74-99) mg/dL POC Glucose (mg/dL) 333 H (75-99) mg/dL Calcium (8.4-10.2) mg/dL Total Protein (6.3-8.2) g/dL Albumin (3.5-5.0) g/dL Urine Protein (Negative) Urine Blood (Negative) Urine Nitrite (Negative) Ur Leukocyte Esterase (Negative) Urine RBC (0-5) /hpf Urine WBC (0-5) /hpf Urine Bacteria (None) /hpf
--- NOTE | 2021-10-27 12:08 | P.PN ---
Subjective Patient is seen for follow-up for acute kidney injury on top of chronic kidney disease. Patient was tentatively scheduled for cardiac catheterization however her serum creatinine has been elevated and therefore the procedure is canceled and patient will follow-up as outpatient from cardiology standpoint. She remains chest pain-free. [place] serum creatinine is 1.6 mg/dL again today. Samm inhibitors were decreased yesterday as blood pressure was slightly on the lower side. Objective - Vital Signs Vital signs: Vital Signs Temp 97.5 F L 10/27/21 07:51 Pulse 66 10/27/21 08:49 Resp 16 10/27/21 07:51 BP 118/56 10/27/21 07:51 Pulse Ox 98 10/27/21 08:38 Intake & Output 10/26/21 10/27/21 10/27/21 18:59 06:59 18:59 Intake Total 840 Output Total 1100 925 100 Balance -260 -925 -100 Weight 86.183 kg Intake: Oral 840 Output: Urine 1100 925 100 Uretheral (Moore) 300 Other: Voiding Method Indwelling Catheter Indwelling Catheter # Voids 1 # Bowel Movements 1 - Exam Patient is comfortable awake. Not in any acute distress. Examination of the heart S1 and S2 Examination lungs bilateral breath sounds are heard Abdomen is soft nontender Examination lower extremities shows no evidence of edema MONITOR AND [employer]ORAGE B[employer] TENDER exam grossly intact - Labs CBC & Chem 7: 10/27/21 08:03 10/27/21 08:03 Labs: Abnormal Lab Results - Last 24 Hours (Table) 10/26/21 10/26/21 10/26/21 Range/Units 14:34 16:42 18:15 RBC (3.80-5.40) m/uL Hgb (11.4-16.0) gm/dL Hct (34.0-46.0) % MCHC (31.0-37.0) g/dL Sodium (137-145) mmol/L BUN (7-17) mg/dL Creatinine (0.52-1.04) mg/dL Glucose (74-99) mg/dL POC Glucose (mg/dL) 213 H 121 H (75-99) mg/dL Calcium (8.4-10.2) mg/dL Total Protein (6.3-8.2) g/dL Albumin (3.5-5.0) g/dL Urine Protein 1+ H (Negative) Urine Blood Small H (Negative) Urine Nitrite Positive H (Negative) Ur Leukocyte Esterase Moderate H (Negative) Urine RBC 102 H (0-5) /hpf Urine WBC 21 H (0-5) /hpf Urine Bacteria Many H (None) /hpf 10/26/21 10/27/21 10/27/21 Range/Units 20:17 06:30 08:03 RBC (3.80-5.40) m/uL Hgb (11.4-16.0) gm/dL Hct (34.0-46.0) % MCHC (31.0-37.0) g/dL Sodium 135 L (137-145) mmol/L BUN 53 H (7-17) mg/dL Creatinine 1.67 H (0.52-1.04) mg/dL Glucose 173 H (74-99) mg/dL POC Glucose (mg/dL) 134 H 143 H (75-99) mg/dL Calcium 8.1 L (8.4-10.2) mg/dL Total Protein 5.7 L (6.3-8.2) g/dL Albumin 2.9 L (3.5-5.0) g/dL Urine Protein (Negative) Urine Blood (Negative) Urine Nitrite (Negative) Ur Leukocyte Esterase (Negative) Urine RBC (0-5) /hpf Urine WBC (0-5) /hpf Urine Bacteria (None) /hpf 10/27/21 10/27/21 Range/Units 08:03 11:47 RBC 3.63 L (3.80-5.40) m/uL Hgb 10.3 L (11.4-16.0) gm/dL Hct 33.7 L (34.0-46.0) % MCHC 30.5 L (31.0-37.0) g/dL Sodium (137-145) mmol/L BUN (7-17) mg/dL Creatinine (0.52-1.04) mg/dL Glucose (74-99) mg/dL POC Glucose (mg/dL) 333 H (75-99) mg/dL Calcium (8.4-10.2) mg/dL Total Protein (6.3-8.2) g/dL Albumin (3.5-5.0) g/dL Urine Protein (Negative) Urine Blood (Negative) Urine Nitrite (Negative) Ur Leukocyte Esterase (Negative) Urine RBC (0-5) /hpf Urine WBC (0-5) /hpf Urine Bacteria (None) /hpf Assessment and Plan Assessment: 1. Acute kidney injury, ATN, cardiorenal and secondary to low blood pressure. Samm inhibitors were decreased yesterday. Serum creatinine remains about the same at 1.6 mg/dL 2. Acute non-ST elevation [place] with initial plans for cardiac catheterization however this is now postponed to outpatient. 3. CK D stage III Baseline creatinine 1.3-1.4 mg/dL. Etiology is nephrosclero sis. Previous UA in August showed trace proteinuria 4. CHF and volume overload status post diuresis switched to oral Lasix. Mostly diastolic in nature 5. Hypertension blood pressure slightly on the lower side. Samm inhibitors decreased yesterday 6. Chronic A. fib maintained on a liquid Plan: Continue with decreased dose of SAMM inhibitor's. Patient is advised to monitor blood pressure at home. Then follow-up with cardiology as outpatient and follow-up with nephrology in 1-2 weeks as outpatient.
--- NOTE | 2021-10-27 12:38 | P.PN ---
Subjective HISTORY OF PRESENTING ILLNESS Patient is a pleasant 80-year-old female with history of paroxysmal atrial fibrillation (on eliquis), hypertension, hyperlipidemia, COPD, diabetes mellitus type 2, hypothyroidism, prior CVA, chronic kidney disease, nonobstructive coronary artery disease by prior heart catheterization 2014, obstructive sleep apnea, chronic heart failure with preserved ejection fraction 55-60% and moderate aortic stenosis, pneumonia. pleural effusion with right sided thoracentesis in 08/10/2021. Patient normally follows with Dr. Hernandez. We are consulted for congestive heart failure. Patient presents to the emergency department via EMS for worsening shortness of breath, symptoms of orthopnea. Patient states for the past 2 days she has been having symptoms of shortness of breath, dyspnea on exertion, and orthopnea. She normally sleeps with 2 pillows but now she states she has been needing to sleep on her couch with her head elevated. After 2 days her shortness of breath worsened, EMS was called, patient was found in a tripod position, SpO2 was 49% on room air, patient was in respiratory distress and patient was ventilated with a guide valve mask with 100% O2., Patient was then placed on nonrebreather mask. An oxygen saturations increased to 88%. Patient was given a dual nebulizer and albuterol and was transferred to the emergency department. Patient requiring BIPAP in ER, given IV Lasix and albuterol. She also has some non-radiating, non exertional chest pain. Located midsternal. No specific alleviating to aggravating factors, this has improved since admission. 10/27/21 Patient seen and examined at bedside, no acute distress. Her shortness of breath has improved. She has been weaned to 3 L nasal cannula, and stable on this. 2025mL urine output over 24 hours. Patient is concerned about her aortic valve. Echo revealed, EF 55-60%, severe aortic stenosis with a peak/mean gradie nt of 49 mmHg/34 mmHg, mild aortic regurgitation, mild to moderate mitral regurgitation, mild tricuspid regurgitation. She is maintained on PO Lasix 40mg BID, Aspirin 81 mg daily, atorvastatin 80 mg nightly, carvedilol 12.5 mg twice a day, hydralazine 100 mg daily lisinopril 40 mg daily Labs: sodium 135, potassium 4.9, BUN 53, serum creatinine 1.67 PHYSICAL EXAMINATION Vital signs reviewed. CONSTITUTIONAL: No apparent distress, obese HEENT: Neck Supple. No JVD. CHEST EXAMINATION: Lungs are diminished in the bases to auscultation bilaterally HEART EXAMINATION: Regular rate and rhythm. S1, S2 heard. systolic ejection murmur right sternal border and apex, no gallops or rub. ABDOMEN: Soft, nontender. Positive bowel sounds. EXTREMITIES: 2+ peripheral pulses, No bilateral lower extremity edema and no calf tenderness. NEUROLOGIC EXAMINATION: Patient is awake, alert and oriented x3. ASSESSMENT Acute on chronic heart failure with preserved ejection fraction Acute hypoxic respiratory failure Elevated troponin, likely type 2 PR event due to supply and demand mismatch Severe aortic stenosis Paroxysmal atrial fibrillation, currently normal sinus rhythm COPD Hypertension Hyperlipidemia Nonobstructive coronary artery disease by prior heart catheterization 2014 Obstructive sleep apnea Chronic kidney disease Diabetes mellitus type 2 Moderate mitral regurgitation History of pneumonia History of pleural effusion with right sided thoracentesis in 07/2021 PLAN At this time due to patient's renal function we are not recommending cardiac catheterization at this time. It will be addressed with patient's primary wood finisher apprentice, Dr. Hernandez Continue PO Lasix, Eliquis, statin, carvedilol, Hydralazine and lisinopril From a wood finisher apprentice perspective, patient is stable, discharge per primary Objective - Vital Signs Vital signs: Vital Signs Temp 97.6 F 10/27/21 12:15 Pulse 57 L 10/27/21 12:15 Resp 16 10/27/21 12:15 BP 120/64 10/27/21 12:15 Pulse Ox 98 10/27/21 12:15 Intake & Output 10/26/21 10/27/21 10/27/21 18:59 06:59 18:59 Intake Total 840 Output Total 1100 925 100 Balance -260 -925 -100 Weight 86.183 kg Intake: Oral 840 Output: Urine 1100 925 100 Uretheral (Moore) 300 Other: Voiding Method Indwelling Catheter Indwelling Catheter # Voids 1 # Bowel Movements 1 - Labs CBC & Chem 7: 10/27/21 08:03 10/27/21 08:03 Labs: Abnormal Lab Results - Last 24 Hours (Table) 10/26/21 10/26/21 10/26/21 Range/Units 14:34 16:42 18:15 RBC (3.80-5.40) m/uL Hgb (11.4-16.0) gm/dL Hct (34.0-46.0) % MCHC (31.0-37.0) g/dL Sodium (137-145) mmol/L BUN (7-17) mg/dL Creatinine (0.52-1.04) mg/dL Glucose (74-99) mg/dL POC Glucose (mg/dL) 213 H 121 H (75-99) mg/dL Calcium (8.4-10.2) mg/dL Total Protein (6.3-8.2) g/dL Albumin (3.5-5.0) g/dL Urine Protein 1+ H (Negative) Urine Blood Small H (Negative) Urine Nitrite Positive H (Negative) Ur Leukocyte Esterase Moderate H (Negative) Urine RBC 102 H (0-5) /hpf Urine WBC 21 H (0-5) /hpf Urine Bacteria Many H (None) /hpf 10/26/21 10/27/21 10/27/21 Range/Units 20:17 06:30 08:03 RBC (3.80-5.40) m/uL Hgb (11.4-16.0) gm/dL Hct (34.0-46.0) % MCHC (31.0-37.0) g/dL Sodium 135 L (137-145) mmol/L BUN 53 H (7-17) mg/dL Creatinine 1.67 H (0.52-1.04) mg/dL Glucose 173 H (74-99) mg/dL POC Glucose (mg/dL) 134 H 143 H (75-99) mg/dL Calcium 8.1 L (8.4-10.2) mg/dL Total Protein 5.7 L (6.3-8.2) g/dL Albumin 2.9 L (3.5-5.0) g/dL Urine Protein (Negative) Urine Blood (Negative) Urine Nitrite (Negative) Ur Leukocyte Esterase (Negative) Urine RBC (0-5) /hpf Urine WBC (0-5) /hpf Urine Bacteria (None) /hpf 10/27/21 10/27/21 Range/Units 08:03 11:47 RBC 3.63 L (3.80-5.40) m/uL Hgb 10.3 L (11.4-16.0) gm/dL Hct 33.7 L (34.0-46.0) % MCHC 30.5 L (31.0-37.0) g/dL Sodium (137-145) mmol/L BUN (7-17) mg/dL Creatinine (0.52-1.04) mg/dL Glucose (74-99) mg/dL POC Glucose (mg/dL) 333 H (75-99) mg/dL Calcium (8.4-10.2) mg/dL Total Protein (6.3-8.2) g/dL Albumin (3.5-5.0) g/dL Urine Protein (Negative) Urine Blood (Negative) Urine Nitrite (Negative) Ur Leukocyte Esterase (Negative) Urine RBC (0-5) /hpf Urine WBC (0-5) /hpf Urine Bacteria (None) /hpf
--- NOTE | 2021-10-27 12:52 | P.PN ---
Subjective Progress Note Date: 10/27/21 Principal diagnosis: CHF. Pulmonary consult dated 10/24/2021. This is an 81-year-old female, initially seen in the emergency department, trauma room #1. She was initially seen by the ER physician, for shortness of breath. He does note, he mentions, EMS brought the patient to the emergency room, for severe shortness of breath. The patient apparently was mildly unresponsive or poorly responsive for EMS on arrival. The patient apparently was placed on BiPAP therapy, and improved. We are currently seeing her in the ER, on BiPAP, with settings of IPAP 14, EPAP 6, and an FiO2 of 60%. She's not receiving any IV fluids. She is being admitted for possible non-ST segment e levation myocardial infarction, respiratory failure, and congestive heart failure. The patient apparently has a history of atrial fibrillation, heart failure, COPD, diabetes mellitus, hyperlipidemia, osteoarthritis, pneumonia, sleep apnea syndrome, chronic kidney disease, stage III, neuropathy, skin cancer, and sleep apnea syndrome. She is a bit lethargic, and difficult to obtain history due to the BiPAP mask. White count 16.1, hemoglobin 10.6, hematocrit 36, platelet count 376,000. PT INR and PTT are normal. Sodium 132, potassium 4.5, chlorides 100, CO2 20, anion gap 12, BUN 26, and creatinine 1.40. Glucose 427. Initial lactic acid was fine. Repeat was 1.4. N-terminal proBNP was 1790. Initial troponin was 0.029, and subsequently, was 0.087. Chest x-ray was reviewed and shows diffuse bilateral infiltrates, and small effusions, consistent with CHF. Progress note dated 10/25/2021. 81-year-old female that we saw yesterday in the emergency room, trauma room #1. She came in with shortness of breath. She was thought to have CHF. She likely has significant valvular heart disease in the form of aortic stenosis. The primary care physician is requesting an evaluation by cardiology and cardiothoracic surgery, determine whether or not the patient could be a candidate for surgical aortic valve replacement, versus transcatheter aortic valve replacement. Currently, the patient's on saline at 10 mL an hour. She's getting O2 2 L by nasal cannula and is getting insulin at 1 unit an hour. She is much more awake and alert today than she was yesterday. Sodium 137, potassium 4.1, chlorides 102, CO2 27, anion gap 8, BUN 44, creatinine 1.59. Calcium is 8.3. Progress note dated 10/27/2021. 81-year-old female that was seen a couple days ago in consultation. The patient is currently being evaluated for possible aortic valve replacement. She was minute with a diagnosis of respiratory failure secondary to CHF. She appears to have critical aortic stenosis. Based on lung function, she would be a better candidate for transcatheter aortic valve replacement. Currently, she is on a couple liters of oxygen. She's not receiving any IV fluids. Clinically, she's feeling much improved. Cardiothoracic surgery has not yet been consulted. White count is 9.8, hemoglobin 10.3, hematocrit 33.7, and platelet count normal. Sodium 135, potassium 4.9, chlorides 102, CO2 27, anion gap 6, BUN 53, and creatinine 1.67. Albumin is 2.9. Microbiologic studies are currently negative or pending. Chest x-ray shows bibasilar atelectasis or infiltrates. Objective - Vital Signs Vital signs: Vital Signs Temp 97.6 F 10/27/21 12:15 Pulse 57 L 10/27/21 12:15 Resp 16 10/27/21 12:15 BP 120/64 10/27/21 12:15 Pulse Ox 98 10/27/21 12:15 Intake & Output 10/26/21 10/27/21 10/27/21 18:59 06:59 18:59 Intake Total 840 Output Total 1100 925 100 Balance -260 -925 -100 Weight 86.183 kg Intake: Oral 840 Output: Urine 1100 925 100 Uretheral (Moore) 300 Other: Voiding Method Indwelling Catheter Indwelling Catheter # Voids 1 # Bowel Movements 1 - Exam Much improved today, oriented 3, currently on 3 L nasal cannula. No conversational dyspnea or use of accessory muscles. HEENT examination is grossly unremarkable. Neck supple. Full range of motion. No adenopathy thyromegaly or neck vein distention. Cardiovascular examination reveals an irregular rhythm and rate. S1-S2 normal. No S3 or S4. No discernible murmur noted. Heart sounds are distant. Heart rate is 57 bpm. Lungs reveal diminished bilateral breath sounds. Crackles and rhonchi are noted. No wheezes. Breath sounds equal bilaterally. Saturations are 98% on 3 L nasal cannula. Abdomen soft bowel sounds are heard. No masses or tenderness. Extremities are intact. No cyanosis clubbing or edema. Skin is without rash or lesion. Neurologic examination is brief but nonfocal. - Labs CBC & Chem 7: 10/27/21 08:03 10/27/21 08:03 Labs: Abnormal Lab Results - Last 24 Hours (Table) 10/26/21 10/26/21 10/26/21 Range/Units 14:34 16:42 18:15 RBC (3.80-5.40) m/uL Hgb (11.4-16.0) gm/dL Hct (34.0-46.0) % MCHC (31.0-37.0) g/dL Sodium (137-145) mmol/L BUN (7-17) mg/dL Creatinine (0.52-1.04) mg/dL Glucose (74-99) mg/dL POC Glucose (mg/dL) 213 H 121 H (75-99) mg/dL Calcium (8.4-10.2) mg/dL Total Protein (6.3-8.2) g/dL Albumin (3.5-5.0) g/dL Urine Protein 1+ H (Negative) Urine Blood Small H (Negative) Urine Nitrite Positive H (Negative) Ur Leukocyte Esterase Moderate H (Negative) Urine RBC 102 H (0-5) /hpf Urine WBC 21 H (0-5) /hpf Urine Bacteria Many H (None) /hpf 10/26/21 10/27/21 10/27/21 Range/Units 20:17 06:30 08:03 RBC (3.80-5.40) m/uL Hgb (11.4-16.0) gm/dL Hct (34.0-46.0) % MCHC (31.0-37.0) g/dL Sodium 135 L (137-145) mmol/L BUN 53 H (7-17) mg/dL Creatinine 1.67 H (0.52-1.04) mg/dL Glucose 173 H (74-99) mg/dL POC Glucose (mg/dL) 134 H 143 H (75-99) mg/dL Calcium 8.1 L (8.4-10.2) mg/dL Total Protein 5.7 L (6.3-8.2) g/dL Albumin 2.9 L (3.5-5.0) g/dL Urine Protein (Negative) Urine Blood (Negative) Urine Nitrite (Negative) Ur Leukocyte Esterase (Negative) Urine RBC (0-5) /hpf Urine WBC (0-5) /hpf Urine Bacteria (None) /hpf 10/27/21 10/27/21 Range/Units 08:03 11:47 RBC 3.63 L (3.80-5.40) m/uL Hgb 10.3 L (11.4-16.0) gm/dL Hct 33.7 L (34.0-46.0) % MCHC 30.5 L (31.0-37.0) g/dL Sodium (137-145) mmol/L BUN (7-17) mg/dL Creatinine (0.52-1.04) mg/dL Glucose (74-99) mg/dL POC Glucose (mg/dL) 333 H (75-99) mg/dL Calcium (8.4-10.2) mg/dL Total Protein (6.3-8.2) g/dL Albumin (3.5-5.0) g/dL Urine Protein (Negative) Urine Blood (Negative) Urine Nitrite (Negative) Ur Leukocyte Esterase (Negative) Urine RBC (0-5) /hpf Urine WBC (0-5) /hpf Urine Bacteria (None) /hpf Assessment and Plan Assessment: Acute hypoxemic respiratory failure secondary to CHF. Valvular heart disease in the form of aortic stenosis. Rule out non-ST segment elevation myocardial infarction. History of chronic atrial fibrillation. History of chronic congestive heart failure. Questionable history of COPD, as the patient is a lifelong nonsmoker. History of diabetes mellitus, with diabetic neuropathy. History of hyperlipidemia. History of obstructive sleep apnea syndrome, not currently maintained on CPAP. History of hypothyroidism. Stage III chronic kidney disease. History of vitamin D deficiency. History of skin cancer. Morbid obesity. Plan: Plan dated 10/24/2021. Currently, the patient is on her usual home medications. We will continue to follow ad make recommendations were appropriate. Corticosteroids are not necessary on this patient. The patient is on breathing treatments. She's also getting Lasix 60 mg IV push every 8 hours. Cardiology should be consulted for possible non-ST segment elevation myocardial infarction. Prognosis is guarded. We will continue to follow this patient and make recommendations where appropriate. Plan dated 10/25/2021. I spoke to the primary care provider. The patient will be seen by cardiology and cardiothoracic surgery to determine whether or not she is a candidate for schofield rgical aortic valve replacement transcatheter aortic placement. In addition, the patient will have an echocardiogram. Also, we will go ahead and order a spirometry on her. Additional recommendations and suggestions are forthcoming. She is much better today than she was yesterday. Yesterday, we saw her in the emergency department, and she was on BiPAP. Continue to follow make recommendations where appropriate. Plan dated 10/27/2021. Cardiothoracic surgery has not yet been consulted. Based on lung function, the patient would be a better candidate for transcatheter aortic valve replacement. In addition, she does have renal dysfunction. The patient is on 3 L. Her breathing is much improved. The patient is being followed by nephrology and cardiology. The pulmonary status is now stable. We will continue to follow. Prognosis is guarded. Time with Patient: Less than 30
[2021-10-27 15:11] LABS: Glucose,Whole Blood 418 mg/dL (75-99)
[2021-10-27 16:32] LABS: Glucose,Whole Blood 325 mg/dL (75-99)
[2021-10-27 18:26] LABS: Glucose,Whole Blood 153 mg/dL (75-99)
[2021-10-27 19:09] LABS: Glucose,Whole Blood 94 mg/dL (75-99)
[2021-10-27 19:48] LABS: Glucose,Whole Blood 96 mg/dL (75-99)
[2021-10-27 20:28] LABS: Glucose,Whole Blood 79 mg/dL (75-99)
[2021-10-27 20:52] LABS: Glucose,Whole Blood 67 mg/dL (75-99)
[2021-10-27] MEDS ORDERED: DEXTROSE 50% SYRINGE 50 ML IVP ONE (21:02)
[2021-10-27] MEDS: ATORVASTATIN 80 MG TAB PO SCH (21:34)
[2021-10-27] MEDS: MELATONIN 5 MG TABLET PO SCH (21:34)
[2021-10-27 21:41] LABS: Glucose,Whole Blood 133 mg/dL (75-99)
[2021-10-28 01:21] LABS: Glucose,Whole Blood 183 mg/dL (75-99)
[2021-10-28 02:52] LABS: Glucose,Whole Blood 170 mg/dL (75-99)
[2021-10-28 05:54] LABS: Glucose,Whole Blood 194 mg/dL (75-99)
[2021-10-28] MEDS: carvediloL 12.5 MG TAB PO SCH (06:18)
[2021-10-28] MEDS: POTASSIUM CHLORIDE ER 20 MEQ TAB.ER PO SCH (06:18)
[2021-10-28] MEDS: LEVOTHYROXINE 125 MCG TAB PO SCH (06:18)
[2021-10-28 07:38] LABS: HCT 31.9 % (34.0-46.0); HGB 9.9 gm/dL (11.4-16.0); Hypochromasia Moderate; MCH 28.5 pg (25.0-35.0); MCV 91.9 fL (80.0-100.0); Mean Platelet Volume 8.1; Platelet Count 277 k/uL (150-450); RBC 3.47 m/uL (3.80-5.40); RDW 13.9 % (11.5-15.5); WBC 10.3 k/uL (3.8-10.6)
[2021-10-28 08:04] LABS: Calcium 8.1 mg/dL (8.4-10.2); Potassium 4.7 mmol/L (3.5-5.1); Total Bilirubin 0.3 mg/dL (0.2-1.3); Total Protein 5.6 g/dL (6.3-8.2)
[2021-10-28 08:10] LABS: Glucose,Whole Blood 197 mg/dL (75-99)
[2021-10-28] MEDS: polyethylene glycoL 3350 17 GM POWD.PACK PO SCH (08:30)
[2021-10-28] MEDS: DOCUSATE 100 MG CAP PO SCH (08:30)
[2021-10-28] MEDS: MULTIVITAMINS, THERA 1 EACH TAB PO SCH (08:30)
[2021-10-28] MEDS: SERTRALINE 25 MG TAB PO SCH (08:30)
[2021-10-28] MEDS: hydrALAZINE HCL 50 MG TAB PO SCH (08:30)
[2021-10-28] MEDS: APIXABAN 2.5 MG TABLET PO SCH (08:30)
[2021-10-28] MEDS: ASPIRIN 81 MG PO SCH (08:30)
[2021-10-28] MEDS: lisinopriL 10 MG TAB PO SCH (08:30)
[2021-10-28] MEDS: FUROSEMIDE 40 MG TAB PO SCH (08:30)
[2021-10-28] MEDS: MAGNESIUM OXIDE 400 MG TAB PO SCH (08:30)
[2021-10-28] MEDS: INSULN ASP PRT/INSULIN ASPART 100 UNIT/ML 10 ML VIAL SQ SCH (08:31)
[2021-10-28] MEDS: INSULIN ASPART (NovoLOG) 100 UNIT/ML VIAL SQ SCH ×4 (08:33→13:33)
[2021-10-28] MEDS: IPRATROPIUM-ALBUTEROL 3 ML NEB INHALATION SCH ×3 (08:58→16:08)
--- NOTE | 2021-10-28 10:51 | P.PN ---
Subjective Progress Note Date: 10/28/21 Principal diagnosis: CHF. Pulmonary consult dated 10/24/2021. This is an 81-year-old female, initially seen in the emergency department, trauma room #1. She was initially seen by the ER physician, for shortness of breath. He does note, he mentions, EMS brought the patient to the emergency room, for severe shortness of breath. The patient apparently was mildly unresponsive or poorly responsive for EMS on arrival. The patient apparently was placed on BiPAP therapy, and improved. We are currently seeing her in the ER, on BiPAP, with settings of IPAP 14, EPAP 6, and an FiO2 of 60%. She's not receiving any IV fluids. She is being admitted for possible non-ST segment e levation myocardial infarction, respiratory failure, and congestive heart failure. The patient apparently has a history of atrial fibrillation, heart failure, COPD, diabetes mellitus, hyperlipidemia, osteoarthritis, pneumonia, sleep apnea syndrome, chronic kidney disease, stage III, neuropathy, skin cancer, and sleep apnea syndrome. She is a bit lethargic, and difficult to obtain history due to the BiPAP mask. White count 16.1, hemoglobin 10.6, hematocrit 36, platelet count 376,000. PT INR and PTT are normal. Sodium 132, potassium 4.5, chlorides 100, CO2 20, anion gap 12, BUN 26, and creatinine 1.40. Glucose 427. Initial lactic acid was fine. Repeat was 1.4. N-terminal proBNP was 1790. Initial troponin was 0.029, and subsequently, was 0.087. Chest x-ray was reviewed and shows diffuse bilateral infiltrates, and small effusions, consistent with CHF. Progress note dated 10/25/2021. 81-year-old female that we saw yesterday in the emergency room, trauma room #1. She came in with shortness of breath. She was thought to have CHF. She likely has significant valvular heart disease in the form of aortic stenosis. The primary care physician is requesting an evaluation by cardiology and cardiothoracic surgery, determine whether or not the patient could be a candidate for surgical aortic valve replacement, versus transcatheter aortic valve replacement. Currently, the patient's on saline at 10 mL an hour. She's getting O2 2 L by nasal cannula and is getting insulin at 1 unit an hour. She is much more awake and alert today than she was yesterday. Sodium 137, potassium 4.1, chlorides 102, CO2 27, anion gap 8, BUN 44, creatinine 1.59. Calcium is 8.3. Progress note dated 10/27/2021. 81-year-old female that was seen a couple days ago in consultation. The patient is currently being evaluated for possible aortic valve replacement. She was minute with a diagnosis of respiratory failure secondary to CHF. She appears to have critical aortic stenosis. Based on lung function, she would be a better candidate for transcatheter aortic valve replacement. Currently, she is on a couple liters of oxygen. She's not receiving any IV fluids. Clinically, she's feeling much improved. Cardiothoracic surgery has not yet been consulted. White count is 9.8, hemoglobin 10.3, hematocrit 33.7, and platelet count normal. Sodium 135, potassium 4.9, chlorides 102, CO2 27, anion gap 6, BUN 53, and creatinine 1.67. Albumin is 2.9. Microbiologic studies are currently negative or pending. Chest x-ray shows bibasilar atelectasis or infiltrates. Progress note dated 10/28/2021. 81-year-old female admitted with a diagnosis of acute respiratory failure secondary to aortic valve stenosis. The patient was apparently being evaluated for possible surgical intervention and/or transcatheter aortic valve replacement but according to the nurse, the patient will be managed medically. The patient is currently on room air. She's not receiving any IV fluids. Today's labs include a white count 10.3, hemoglobin 9.9, hematocrit 31.9, and a platelet count of 277,000. Sodium 135, potassium 4.7, chlorides 102, CO2 29, anion gap 4, BUN 57, and creatinine 1.89. Albumin is 3.0. Objective - Vital Signs Vital signs: Vital Signs Temp 99.1 F 10/28/21 08:00 Pulse 62 10/28/21 09:08 Resp 16 10/28/21 08:00 BP 173/70 10/28/21 08:00 Pulse Ox 96 10/28/21 08:00 Intake & Output 10/27/21 10/28/21 10/28/21 18:59 06:59 18:59 Intake Total 678 485 280 Output Total 100 Balance 578 485 280 Intake: IV 40 20 Invasive Line 1 20 10 Invasive Line 2 20 10 Oral 638 485 260 Output: Urine 100 Other: Voiding Method Toilet # Voids 1 1 1 - Exam Much improved today, oriented 3, currently on room air. Saturations are 96%. HEENT examination is grossly unremarkable. Neck supple. Full range of motion. No adenopathy thyromegaly or neck vein distention. Cardiovascular examination reveals an irregular rhythm and rate. S1-S2 normal. No S3 or S4. A grade 3/6 systolic murmur is noted. This is consistent with aortic stenosis. Heart sounds are distant. Heart rate is 62 bpm. Lungs reveal diminished bilateral breath sounds. Crackles and rhonchi are noted. No wheezes. Breath sounds equal bilaterally. Abdomen soft bowel sounds are heard. No masses or tenderness. Extremities are intact. No cyanosis clubbing or edema. Skin is without rash or lesion. Neurologic examination is brief but nonfocal. - Labs CBC & Chem 7: 10/28/21 07:03 10/28/21 07:03 Labs: Abnormal Lab Results - Last 24 Hours (Table) 10/27/21 10/27/21 10/27/21 Range/Units 11:47 15:10 16:30 RBC (3.80-5.40) m/uL Hgb (11.4-16.0) gm/dL Hct (34.0-46.0) % Sodium (137-145) mmol/L BUN (7-17) mg/dL Creatinine (0.52-1.04) mg/dL Glucose (74-99) mg/dL POC Glucose (mg/dL) 333 H 418 H 325 H (75-99) mg/dL Calcium (8.4-10.2) mg/dL Total Protein (6.3-8.2) g/dL Albumin (3.5-5.0) g/dL 10/27/21 10/27/21 10/27/21 Range/Units 18:23 20:51 21:39 RBC (3.80-5.40) m/uL Hgb (11.4-16.0) gm/dL Hct (34.0-46.0) % Sodium (137-145) mmol/L BUN (7-17) mg/dL Creatinine (0.52-1.04) mg/dL Glucose (74-99) mg/dL POC Glucose (mg/dL) 153 H 67 L 133 H (75-99) mg/dL Calcium (8.4-10.2) mg/dL Total Protein (6.3-8.2) g/dL Albumin (3.5-5.0) g/dL 10/28/21 10/28/21 10/28/21 Range/Units 01:19 02:51 05:53 RBC (3.80-5.40) m/uL Hgb (11.4-16.0) gm/dL Hct (34.0-46.0) % Sodium (137-145) mmol/L BUN (7-17) mg/dL Creatinine (0.52-1.04) mg/dL Glucose (74-99) mg/dL POC Glucose (mg/dL) 183 H 170 H 194 H (75-99) mg/dL Calcium (8.4-10.2) mg/dL Total Protein (6.3-8.2) g/dL Albumin (3.5-5.0) g/dL 10/28/21 10/28/21 10/28/21 Range/Units 07:03 07:03 08:09 RBC 3.47 L (3.80-5.40) m/uL Hgb 9.9 L (11.4-16.0) gm/dL Hct 31.9 L (34.0-46.0) % Sodium 135 L (137-145) mmol/L BUN 57 H (7-17) mg/dL Creatinine 1.89 H (0.52-1.04) mg/dL Glucose 183 H (74-99) mg/dL POC Glucose (mg/dL) 197 H (75-99) mg/dL Calcium 8.1 L (8.4-10.2) mg/dL Total Protein 5.6 L (6.3-8.2) g/dL Albumin 3.0 L (3.5-5.0) g/dL Microbiology - Last 24 Hours (Table) 10/27/21 10:30 Urine Culture - Preliminary Urine,Clean Catch Assessment and Plan Assessment: Acute hypoxemic respiratory failure secondary to CHF. Valvular heart disease in the form of aortic stenosis. Rule out non-ST segment elevation myocardial infarction. History of chronic atrial fibrillation. History of chronic congestive heart failure. Questionable history of COPD, as the patient is a lifelong nonsmoker. History of diabetes mellitus, with diabetic neuropathy. History of hyperlipidemia. History of obstructive sleep apnea syndrome, not currently maintained on CPAP. History of hypothyroidism. Stage III chronic kidney disease. History of vitamin D deficiency. History of skin cancer. Morbid obesity. Plan: Plan dated 10/24/2021. Currently, the patient is on her usual home medications. We will continue to follow ad make recommendations were appropriate. Corticosteroids are not necessary on this patient. The patient is on breathing treatments. She's also getting Lasix 60 mg IV push every 8 hours. Cardiology should be consulted for possible non-ST segment elevation myocardial infarction. Prognosis is guarded. We will continue to follow this patient and make recommendations where appropriate. Plan dated 10/25/2021. I spoke to the primary care provider. The patient will be seen by cardiology and cardiothoracic surgery to determine whether or not she is a candidate for surgical aortic valve replacement transcatheter aortic placement. In addition, the patient will have an echocardiogram. Also, we will go ahead and order a spirometry on her. Additional recommendations and suggestions are forthcoming. She is much better today than she was yesterday. Yesterday, we saw her in the emergency department, and she was on BiPAP. Continue to follow make recommendations where appropriate. Plan dated 10/27/2021. Cardiothoracic surgery has not yet been consulted. Based on lung function, the patient would be a better candidate for transcatheter aortic valve replacement. In addition, she does have renal dysfunction. The patient is on 3 L. Her breathing is much improved. The patient is being followed by nephrology and cardiology. The pulmonary status is now stable. We will continue to follow. Prognosis is guarded. Plan dated 10/28/2021. The patient apparently is going to be managed medically. There are no plans for surgical aortic valve replacement transcatheter aortic valve replacement. I believe this is because of her overall kidney option. From the pulmonary standpoint, the patient stable. She is on room air. Saturations are 96%. Her breathing is much improved. Moving forward, we will see the patient only as n eeded. There is some talk, that she may be discharged home today. Time with Patient: Less than 30
[2021-10-28 11:39] LABS: Glucose,Whole Blood 256 mg/dL (75-99)
--- NOTE | 2021-10-28 13:06 | P.PN ---
Subjective Progress Note Date: 10/28/21 This is a 81-year-old female patient of Dr. Dawn/Henri Mejía BOBBIN DRIER and Dr. 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 Amaya for pain management. Asked hospitalization was in March 2021 for acute on chronic diastolic heart failure. At that time echocardiogram revealed EF of 55-60% with severe concentric left ventricular hypertrophy, moderate aortic stenosis, moderate mitral regurgitation, mild tricuspid regurgitation, mild pulmonary hypertension. Patient apparently seen pulmonary Dr. regular basis was supposed to have pulmonary function tests today patient has been having significant shortness of breath and dyspnea for the last few days become much worse today ended up calling 911 and brought to the emergency department by EMS in found to be in extreme acute respiratory failure with poor response to management, patient was placed on BiPAP at the time, started on IV furosemide, first set of lab shows white blood cell 16,000 and hemoglobin of 10.7, initial troponin was 0.0-29 and up to 0.0873 EKG didn't show any major abnormality changes the time. Glucose was quite bit high at 427 with normal lactic acid her creatinine was 1.4 close to her baseline her BNP was 1790 chest x-ray showed diffuse bilateral infiltrate and small effusion with CHF. Patient was started on BiPAP with elevated troponin be seen cardiology for non- [facility] also be seen pulmonary clinic transfer patient to the ICU currently. 10/25: Patient is doing much better today she made it to the floor she is off BiPAP completely she is on oxygen only looks like she ended up having a flush pulmonary edema from most likely cardiac event more than pulmonary. Review her echocardiogram from yesterday showed moderate to severe aortic stenosis with a gradient of 48.9 patient might require to have something done to fix it. Patient troponin was slightly bit elevated yesterday and still seeing cardiology this point the plan probably to have cardiology do heart catheter to find out if patient had any blockage consistent with coronary artery disease and prepare for valve surgery or TAVR. 10/26: Patient is doing better today continue to have slight congestion, Sunday her kidney function and decline slight bit compared to yesterday and day before we'll consult nephrology to see if there is any need for change in medication or plan in the meanwhile cardiology still planning to do heart catheter when his save for the kidney. 10/27: Patient is doing much better today has improved significantly clinically, kidney function is not much different and at this point her heart catheter would be canceled and we arrange for an outpatient basis in the near future. We will titrate physical therapy and occupational therapy along with having social media job titles seen patient for any home care need. Continue hydration repeat lab by tomorrow if patient is doing well hopefully will be discharged tomorrow to follow-up with her claims collector and primary care within 1 week. 10/28: Patient is feeling much better today her kidney function will allow di fferent, patient is not symptomatic she is off oxygen completely. Likely at this point to treat patient medically with send her home to follow with her primary care and cardiology along with nephrology hopefully if the kidney function is stable over the next few weeks patient can come back to have heart catheter as an outpatient and further management on her aortic valve to be done based on the heart cath and possibly transesophageal echocardiogram. REVIEW OF SYSTEMS Constitutional: No fever, no chills, no night sweats. No weight change. No weakness, fatigue or lethargy. No daytime sleepiness. EENT: Reported headache. No blurred vision or double vision, no loss of vision. No loss of Hearing, no ringing in the ears, no dizziness. No nasal drainage or congestion. No epistaxis. No sore throat. Lungs: Significant shortness of breath and respiratory failure, on BiPAP and high flow oxygen along with updraft treatment. Cardiovascular: Reported chest pain, positive lower extremity edema. No palpitations. No paroxysmal nocturnal dyspnea. No orthopnea. No lightheadedness or dizziness. Reports syncopal episodes. Abdominal: No abdominal pain. No nausea, vomiting. No diarrhea. No constipation. No bloody or tarry stools. No loss of appetite. Genitourinary: Reported dysuria, no increased frequency, no urgency. No urinary retention. Musculoskeletal: No myalgias. No muscle weakness, no gait dysfunction, no frequent falls. No back pain. No neck pain. Integumentary: No wounds, no lesions. No rash or pruritus. No unusual bruising. No change in hair or nails. Neurologic: No aphasia. No facial droop. No change in mentation. No head injury. No headache. No paralysis. No paresthesia. Psychiatric: No depression. Reports anxiety. No mood swings. Endocrine: Noted abnormal blood sugars. No weight change. PHYSICAL EXAMINATION Gen: This is a 81-year-old female, obese, patient is laying in bed has BiPAP on Lyrica mild respiratory distress. HEENT: Head is atraumatic, normocephalic. Pupils equal, round. Sclerae is anicteric. NECK: Supple. No JVD. No lymphadenopathy. No thyromegaly. LUNGS: Decreased for some tooth, has mild crackles in bases specially the right side has mild respiratory expected wheezes. HEART: Regular rate and rhythm. 3/6 systolic murmur. S1, S2, positive S3. ABDOMEN: Soft. Bowel sounds are present. No masses. No tenderness. EXTREMITIES: 1+ bilateral pedal edema. No calf tenderness. Dorsalis pedis +2 bilaterally. NEUROLOGICAL: Patient is awake, alert and oriented x3. Cranial nerves 2 through 12 are grossly intact. ASSESSMENT AND PLAN 1 acute hypoxic respiratory failure: Secondary to CHF exacerbation probably COPD: Off O2 and doing very well. She is doing very well continue current management this point. 2 non-ST segment elevation myocardial infarction: She seen cardiology not able to do heart cath this point continue medical management only. 3 congestive heart failure exacerbation: Mostly diastolic's function, patient remain on furosemide, Coreg might benefit from small dose of BISI inhibitor, will watch daily weight and fluid intake. Any kidney function her furosemide need to be slightly change at the time. Tinnitus titrate medication watch her fluid intake carefully. 4 moderate to severe aortic stenosis: Patient is seen cardiology eventually have heart cath transesophageal echocardiogram and prepare for doing either [place] or open heart surgery. 5 COPD with excessive patient: Patient is lifelong nonsmoker but she lived with a smoker for over 50 years more than 2 pack a day, continue steroid, continue BiPAP will continue patient on updraft treatment [id number]. 6 Paroxysmal atrial fibrillation continue eliquis 5 mg twice daily, Coreg 12.5 mg twice daily. 7 acute kidney injury with chronic stage III chronic kidney disease, still seen nephrology will be discharged home follow-up with nephrology repeat lab in one to 2 weeks and try to stay away from any nephrotoxic agent. 8 hypertension: Remain on amlodipine 10 mg a day Coreg 12.5 mg twice a day hydralazine 50 mg 2 times a day continue lisinopril 40 mg daily as well. 9 type 2 diabetes: Has been on next Humalog 75/25 30 units in the morning 20 units the evening, still on pioglitazone 15 mg daily which will be held for now and continue short acting insulin per sliding scales coverage. Patient was slightly hypoglycemic today we will readjust her medication doses when she goes home she was on lesser dose of the 75/25 at home. 10 chronic anticoagulation management: A Chin remain on Eliquis 5 mg twice a day. 11 Hypothyroidism. Continue levothyroxine 125 g daily. 12. Degenerative disc disease with chronic pain. Follows with pain management with Dr. Amaya. 13. Hyperlipidemia. Continue Lipitor 80 mg at bedtime. 14. Chronic anemia. Continue ferrous sulfate 325 mg daily. 15 obstructive sleep apnea: Currently not using CPAP will require further management. Patient is stable be discharged home today follow-up as an outpatient heart cath and BURKE as an outpatient and to discuss with cardiology option for aortic valve management. Objective - Vital Signs Vital signs: Vital Signs Temp 99.1 F 10/28/21 08:00 Pulse 62 10/28/21 09:08 Resp 16 10/28/21 08:00 BP 173/70 10/28/21 08:00 Pulse Ox 96 10/28/21 08:00 Intake & Output 10/27/21 10/28/21 10/28/21 18:59 06:59 18:59 Intake Total 678 485 280 Output Total 100 Balance 578 485 280 Intake: IV 40 20 Invasive Line 1 20 10 Invasive Line 2 20 10 Oral 638 485 260 Output: Urine 100 Other: Voiding Method Toilet # Voids 1 1 1 - Labs CBC & Chem 7: 10/28/21 07:03 10/28/21 07:03 Labs: Abnormal Lab Results - Last 24 Hours (Table) 10/27/21 10/27/21 10/27/21 Range/Units 11:47 15:10 16:30 RBC (3.80-5.40) m/uL Hgb (11.4-16.0) gm/dL Hct (34.0-46.0) % Sodium (137-145) mmol/L BUN (7-17) mg/dL Creatinine (0.52-1.04) mg/dL Glucose (74-99) mg/dL POC Glucose (mg/dL) 333 H 418 H 325 H (75-99) mg/dL Calcium (8.4-10.2) mg/dL Total Protein (6.3-8.2) g/dL Albumin (3.5-5.0) g/dL 10/27/21 10/27/21 10/27/21 Range/Units 18:23 20:51 21:39 RBC (3.80-5.40) m/uL Hgb (11.4-16.0) gm/dL Hct (34.0-46.0) % Sodium (137-145) mmol/L BUN (7-17) mg/dL Creatinine (0.52-1.04) mg/dL Glucose (74-99) mg/dL POC Glucose (mg/dL) 153 H 67 L 133 H (75-99) mg/dL Calcium (8.4-10.2) mg/dL Total Protein (6.3-8.2) g/dL Albumin (3.5-5.0) g/dL 10/28/21 10/28/21 10/28/21 Range/Units 01:19 02:51 05:53 RBC (3.80-5.40) m/uL Hgb (11.4-16.0) gm/dL Hct (34.0-46.0) % Sodium (137-145) mmol/L BUN (7-17) mg/dL Creatinine (0.52-1.04) mg/dL Glucose (74-99) mg/dL POC Glucose (mg/dL) 183 H 170 H 194 H (75-99) mg/dL Calcium (8.4-10.2) mg/dL Total Protein (6.3-8.2) g/dL Albumin (3.5-5.0) g/dL 10/28/21 10/28/21 10/28/21 Range/Units 07:03 07:03 08:09 RBC 3.47 L (3.80-5.40) m/uL Hgb 9.9 L (11.4-16.0) gm/dL Hct 31.9 L (34.0-46.0) % Sodium 135 L (137-145) mmol/L BUN 57 H (7-17) mg/dL Creatinine 1.89 H (0.52-1.04) mg/dL Glucose 183 H (74-99) mg/dL POC Glucose (mg/dL) 197 H (75-99) mg/dL Calcium 8.1 L (8.4-10.2) mg/dL Total Protein 5.6 L (6.3-8.2) g/dL Albumin 3.0 L (3.5-5.0) g/dL Microbiology - Last 24 Hours (Table) 10/27/21 10:30 Urine Culture - Preliminary Urine,Clean Catch
--- NOTE | 2021-10-28 13:09 | P.DS ---
Providers Date of admission: 10/24/21 06:13 Attending physician: Fritz Mayen Consults: 10/24/21 06:13 Consult Physician Routine Consulting Provider: See Rodriguez Consult Reason/Comments: copd Do you want consulting provider notified?: Yes Consult Physician Routine Consulting Provider: Renée Hernandez Consult Reason/Comments: chf Do you want consulting provider notified?: Yes 10/24/21 08:04 Consult Physician Routine Consulting Provider: Renée Hernandez Consult Reason/Comments: elevated trops, acute exac of CHF Do you want consulting provider notified?: Yes 10/26/21 12:54 Consult Physician Routine Consulting Provider: Yanelis Cunningham Consult Reason/Comments: CKD will need to go for Heart Cath Do you want consulting provider notified?: Yes Primary care physician: Dontae Dawn [facility] Course: This is a 81-year-old female patient of Dr. 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 Amaya for pain management. Asked hospitalization was in March 2021 for acute on chronic d iastolic heart failure. At that time echocardiogram revealed EF of 55-60% with severe concentric left ventricular hypertrophy, moderate aortic stenosis, moderate mitral regurgitation, mild tricuspid regurgitation, mild pulmonary hypertension. Patient apparently seen pulmonary regular basis was supposed to have pulmonary function tests today patient has been having significant shortness of breath and dyspnea for the last few days become much worse today ended up calling 911 and brought to the emergency department by EMS in found to be in extreme acute respiratory failure with poor response to management, patient was placed on BiPAP at the time, started on IV furosemide, first set of lab shows white blood cell 16,000 and hemoglobin of 10.7, initial troponin was 0.0-29 and up to 0.0873 EKG didn't show any major abnormality changes the time. Glucose was quite bit high at 427 with normal lactic acid her creatinine was 1.4 close to her baseline her BNP was 1790 chest x-ray showed diffuse bilateral infiltrate and small effusion with CHF. Patient was started on BiPAP with elevated troponin be seen cardiology for non- ST AK also be seen pulmonary clinic transfer patient to the ICU currently. 10/25: Patient is doing much better today she made it to the floor she is off BiPAP completely she is on oxygen only looks like she ended up having a flush pulmonary edema from most likely cardiac event more than pulmonary. Review her echocardiogram from yesterday showed moderate to severe aortic stenosis with a gradient of 48.9 patient might require to have something done to fix it. Patient troponin was slightly bit elevated yesterday and still seeing cardiology this point the plan probably to have cardiology do heart catheter to find out if patient had any blockage consistent with coronary artery disease and prepare for valve surgery or TAVR. 10/26: Patient is doing better today continue to have slight congestion, Sunday her kidney function and decline slight bit compared to yesterday and day before we'll consult nephrology to see if there is any need for change in medication or plan in the meanwhile cardiology still planning to do heart catheter when his save for the kidney. 10/27: Patient is doing much better today has improved significantly clinically, kidney function is not much different and at this point her heart catheter would be canceled and we arrange for an outpatient basis in the near future. We will titrate physical therapy and occupational therapy along with having social service coordinator seen patient for any home care need. 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 10/28: Patient is feeling much better today her kidney function will allow different, patient is not symptomatic she is off oxygen completely. Likely at this point to treat patient medically with send her home to follow with her primary care and cardiology along with nephrology hopefully if the kidney function is stable over the next few weeks patient can come back to have heart catheter as an outpatient and further management on her aortic valve to be done based on the heart cath and possibly transesophageal echocardiogram. REVIEW OF SYSTEMS Constitutional: No fever, no chills, no night sweats. No weight change. No weakness, fatigue or lethargy. No daytime sleepiness. EENT: Reported headache. No blurred vision or double vision, no loss of vision. No loss of Hearing, no ringing in the ears, no dizziness. No nasal drainage or congestion. No epistaxis. No sore throat. Lungs: Significant shortness of breath and respiratory failure, on BiPAP and high flow oxygen along with updraft treatment. Cardiovascular: Reported chest pain, positive lower extremity edema. No palpitations. No paroxysmal nocturnal dyspnea. No orthopnea. No lightheadedness or dizziness. Reports syncopal episodes. Abdominal: No abdominal pain. No nausea, vomiting. No diarrhea. No constipation. No bloody or tarry stools. No loss of appetite. Genitourinary: Reported dysuria, no increased frequency, no urgency. No urinary retention. Musculoskeletal: No myalgias. No muscle weakness, no gait dysfunction, no frequent falls. No back pain. No neck pain. Integumentary: No wounds, no lesions. No rash or pruritus. No unusual bruising . No change in hair or nails. Neurologic: No aphasia. No facial droop. No change in mentation. No head injury. No headache. No paralysis. No paresthesia. Psychiatric: No depression. Reports anxiety. No mood swings. Endocrine: Noted abnormal blood sugars. No weight change. PHYSICAL EXAMINATION Gen: This is a 81-year-old female, obese, patient is laying in bed has BiPAP on Lyrica mild respiratory distress. HEENT: Head is atraumatic, normocephalic. Pupils equal, round. Sclerae is anicteric. NECK: Supple. No JVD. No lymphadenopathy. No thyromegaly. LUNGS: Decreased for some tooth, has mild crackles in bases specially the right side has mild respiratory expected wheezes. HEART: Regular rate and rhythm. 3/6 systolic murmur. S1, S2, positive S3. ABDOMEN: Soft. Bowel sounds are present. No masses. No tenderness. EXTREMITIES: 1+ bilateral pedal edema. No calf tenderness. Dorsalis pedis +2 bilaterally. NEUROLOGICAL: Patient is awake, alert and oriented x3. Cranial nerves 2 through 12 are grossly intact. ASSESSMENT AND PLAN 1 acute hypoxic respiratory failure: Secondary to CHF exacerbation probably COPD: Off O2 and doing very well. She is doing very well continue current management this point. 2 non-ST segment elevation myocardial infarction: She seen cardiology not able to do heart cath this point continue medical management only. 3 congestive heart failure exacerbation: Mostly diastolic's function, patient remain on furosemide, Coreg might benefit from small dose of BISI inhibitor, will watch daily weight and fluid intake. Any kidney function her furosemide need to be slightly change at the time. Tinnitus titrate medication watch her fluid intake carefully. 4 moderate to severe aortic stenosis: Patient is seen cardiology eventually have heart cath transesophageal echocardiogram and prepare for doing either [place] or open heart surgery. 5 COPD with excessive patient: Patient is lifelong nonsmoker but she lived with a smoker for over 50 years more than 2 pack a day, continue steroid, continue BiPAP will continue patient on updraft treatment [id number]. 6 Paroxysmal atrial fibrillation continue eliquis 5 mg twice daily, Coreg 12.5 mg twice daily. 7 acute kidney injury with chronic stage III chronic kidney disease, still seen nephrology will be discharged home follow-up with nephrology repeat lab in one to 2 weeks and try to stay away from any nephrotoxic agent. 8 hypertension: Remain on amlodipine 10 mg a day Coreg 12.5 mg twice a day hydralazine 50 mg 2 times a day continue lisinopril 40 mg daily as well. 9 type 2 diabetes: Has been on next Humalog 75/25 30 units in the morning 20 units the evening, still on pioglitazone 15 mg daily which will be held for now and continue short acting insulin per sliding scales coverage. Patient was slightly hypoglycemic today we will readjust her medication doses when she goes home she was on lesser dose of the 75/25 at home. 10 chronic anticoagulation management: She is remain on Eliquis 5 mg twice a day. 11 Hypothyroidism. Continue levothyroxine 125 g daily. 12. Degenerative disc disease with chronic pain. Follows with pain management with Dr. Amaya. 13. Hyperlipidemia. Continue Lipitor 80 mg at bedtime. 14. Chronic anemia. Continue ferrous sulfate 325 mg daily. 15 obstructive sleep apnea: Currently not using CPAP will require further management. Patient is stable be discharged home today follow-up as an outpatient heart cath and BURKE as an outpatient and to discuss with cardiology option for aortic valve management. Hospital course: Patient was hospitalized with tach acute respiratory failure secondary to CHF exacerbation and non-ST AK, she had flush pulmonary edema was treated with aggressive diuretics at the time. Patient was seen cardiology pulmonary was on BiPAP did not require to go on mechanical ventilation. Patient was stabilized following day. Her echocardiogram showed moderate to severe aortic stenosis with gradient of 49 mmHg. The plan was to see if patient can go for heart catheter and transesophageal echocardiogram for final planning of aortic valve management she need to have her or open heart surgery. Sadly her kidney function decline quite bit was too risky to have patient go for heart cath. Was agreed by cardiology and nephrology to stabilize his first patient is on medical management currently can have her procedure as an outpatient. Patient was stable at this point to be discharged home to follow-up with cardiology and primary care as an outpatient. Patient Condition at Discharge: Serious Plan - Discharge Summary Discharge Rx Participant: No New Discharge Prescriptions: New Aspirin [Adult Low Dose Aspirin EC] 81 mg PO AC-BRKFST #30 tab Furosemide [Lasix] 40 mg PO BID@0900,1600 30 Days #60 tab Continue Atorvastatin [Lipitor] 80 mg PO HS Apixaban [Eliquis] 5 mg PO BID #60 tab hydrALAZINE HCL [Apresoline] 100 mg PO TID Levothyroxine Sodium [Synthroid] 125 mcg PO DAILY #30 tab Insulin NPL/Insulin Lispro [humaLOG MIX 75-25 VIAL] 20 unit SQ W/SUPPER Insulin NPL/Insulin Lispro [humaLOG MIX 75-25 VIAL] 30 unit SQ W/BRKFST Ergocalciferol [Vitamin D2 (DRISDOL)] 50,000 unit PO TU Pioglitazone [Actos] 15 mg PO DAILY carvediloL [Coreg*] 12.5 mg PO BID-W/MEALS #60 tab polyethylene glycoL 3350 [Miralax] 17 gm PO DAILY packet Sertraline [Zoloft] 25 mg PO DAILY Furosemide [Lasix] 20 mg PO DAILY Albuterol Nebulized [Ventolin Nebulized] 2.5 mg INHALATION RT-QID PRN PRN Reason: Shortness Of Breath amLODIPine [Norvasc] 5 mg PO HS Isosorbide Mononitrate ER [Imdur] 60 mg PO DAILY Magnesium Oxide [Pierce] 500 mg PO DAILY Multivit-Min/Iron/Folic/Lutein [Centrum Silver Women Tablet] 1 tab PO DAILY Potassium Chloride ER [K-Dur 20] 20 meq PO W/BRKFST Meclizine [Antivert] 25 mg PO TID PRN #60 tab PRN Reason: Vertigo Artificial Tears-Hypromellose [Artificial Tear Drops] 1 drop BOTH EYES TID PRN PRN Reason: Dry Eye(S) Docusate [Colace] 100 mg PO DAILY Elderberry Fruit and Flower [Black Elderberry 575 mg Cap] 1 cap PO DAILY Aspirin/Acetaminophen/Caffeine [Excedrin Extra Strength Caplet] 2 tab PO DAILY PRN PRN Reason: Migraine Headache Melatonin 5 mg PO HS Changed lisinopriL 20 mg PO DAILY #0 Discharge Medication List Atorvastatin [Lipitor] 80 mg PO HS 06/30/18 [History] Apixaban [Eliquis] 5 mg PO BID #60 tab 07/04/18 [Rx] hydrALAZINE HCL [Apresoline] 100 mg PO TID 01/06/19 [History] Levothyroxine Sodium [Synthroid] 125 mcg PO DAILY #30 tab 01/08/19 [Rx] Insulin NPL/Insulin Lispro [humaLOG MIX 75-25 VIAL] 20 unit SQ W/SUPPER 05/30/20 [History] Insulin NPL/Insulin Lispro [humaLOG MIX 75-25 VIAL] 30 unit SQ W/BRKFST 06/05/20 [History] Ergocalciferol [Vitamin D2 (DRISDOL)] 50,000 unit PO TU 07/19/20 [History] Pioglitazone [Actos] 15 mg PO DAILY 09/13/20 [History] carvediloL [Coreg*] 12.5 mg PO BID-W/MEALS #60 tab 05/11/21 [Rx] Potassium Chloride ER [K-Dur 20] 20 meq PO W/BRKFST 08/06/21 [History] polyethylene glycoL 3350 [Miralax] 17 gm PO DAILY packet 08/12/21 [Rx] Furosemide [Lasix] 20 mg PO DAILY 08/30/21 [History] Sertraline [Zoloft] 25 mg PO DAILY 08/30/21 [History] Meclizine [Antivert] 25 mg PO TID PRN #60 tab 09/05/21 [Rx] Albuterol Nebulized [Ventolin Nebulized] 2.5 mg INHALATION RT-QID PRN 09/24/21 [History] Artificial Tears-Hypromellose [Artificial Tear Drops] 1 drop BOTH EYES TID PRN 09/24/21 [History] Aspirin/Acetaminophen/Caffeine [Excedrin Extra Strength Caplet] 2 tab PO DAILY PRN 09/24/21 [History] Docusate [Colace] 100 mg PO DAILY 09/24/21 [History] Elderberry Fruit and Flower [Black Elderberry 575 mg Cap] 1 cap PO DAILY 09/24/21 [History] Isosorbide Mononitrate ER [Imdur] 60 mg PO DAILY 09/24/21 [History] Magnesium Oxide [Pierce] 500 mg PO DAILY 09/24/21 [History] Melatonin 5 mg PO HS 09/24/21 [History] Multivit-Min/Iron/Folic/Lutein [Centrum Silver Women Tablet] 1 tab PO DAILY 09/24/21 [History] amLODIPine [Norvasc] 5 mg PO HS 09/24/21 [History] Aspirin [Adult Low Dose Aspirin EC] 81 mg PO AC-BRKFST #30 tab 10/28/21 [Rx] Furosemide [Lasix] 40 mg PO BID@0900,1600 30 Days #60 tab 10/28/21 [Rx] lisinopriL 20 mg PO DAILY #0 10/28/21 [Rx] Follow up Appointment(s)/Referral(s): Renée Hernandez MD [STAFF PHYSICIAN] - 11/17/21 11:30 am [facility], [NON-STAFF] - Dontae Dawn MD [Primary Care Provider] - 11/01/21 1:00 pm (Appt is with ANYI Polanco) Discharge Disposition: HOME WITH HOME HEALTH SERVICES
--- NOTE | 2021-10-28 13:09 | P.PN ---
Subjective HISTORY OF PRESENTING ILLNESS Patient is a pleasant 80-year-old female with history of paroxysmal atrial fibrillation (on eliquis), hypertension, hyperlipidemia, COPD, diabetes mellitus type 2, hypothyroidism, prior CVA, chronic kidney disease, nonobstructive coronary artery disease by prior heart catheterization 2014, obstructive sleep apnea, chronic heart failure with preserved ejection fraction 55-60% and moderate aortic stenosis, pneumonia. pleural effusion with right sided thoracentesis in 08/10/2021. Patient normally follows with Dr. Hernandez. We are consulted for congestive heart failure. Patient presents to the emergency department via EMS for worsening shortness of breath, symptoms of orthopnea. Patient states for the past 2 days she has been having symptoms of shortness of breath, dyspnea on exertion, and orthopnea. She normally sleeps with 2 pillows but now she states she has been needing to sleep on her couch with her head elevated. After 2 days her shortness of breath worsened, EMS was called, patient was found in a tripod position, SpO2 was 49% on room air, patient was in respiratory distress and patient was ventilated with a guide valve mask with 100% O2., Patient was then placed on nonrebreather mask. An oxygen saturations increased to 88%. Patient was given a dual nebulizer and albuterol and was transferred to the emergency department. Patient requiring BIPAP in ER, given IV Lasix and albuterol. She also has some non-radiating, non exertional chest pain. Located midsternal. No specific alleviating to aggravating factors, this has improved since admission. 10/28/21 Patient seen and examined at bedside, no acute distress. Her shortness of breath has improved. She has been weaned to room air. Echo revealed, EF 55-60%, severe aortic stenosis with a peak/mean gradient of 49 mmHg/34 mmHg, mild aortic regurgitation, mild to moderate mitral regurgitation, mild tricuspid regur gitation. She is maintained on PO Lasix 40mg BID, Aspirin 81 mg daily, atorvastatin 80 mg nightly, carvedilol 12.5 mg twice a day, hydralazine 100 mg daily lisinopril 40 mg daily Labs: sodium 135, potassium 4.7, BUN 57, serum creatinine 1.89 PHYSICAL EXAMINATION Vital signs reviewed. CONSTITUTIONAL: No apparent distress, obese HEENT: Neck Supple. No JVD. CHEST EXAMINATION: Lungs are diminished in the bases to auscultation bilaterally HEART EXAMINATION: Regular rate and rhythm. S1, S2 heard. systolic ejection murmur right sternal border and apex, no gallops or rub. ABDOMEN: Soft, nontender. Positive bowel sounds. EXTREMITIES: 2+ peripheral pulses, No bilateral lower extremity edema and no calf tenderness. NEUROLOGIC EXAMINATION: Patient is awake, alert and oriented x3. ASSESSMENT Acute on chronic heart failure with preserved ejection fraction Acute hypoxic respiratory failure Elevated troponin, likely type 2 IA event due to supply and demand mismatch Severe aortic stenosis Paroxysmal atrial fibrillation, currently normal sinus rhythm COPD Hypertension Hyperlipidemia Nonobstructive coronary artery disease by prior heart catheterization 2014 Obstructive sleep apnea Chronic kidney disease Diabetes mellitus type 2 Moderate mitral regurgitation History of pneumonia History of pleural effusion with right sided thoracentesis in 07/2021 PLAN At this time due to patient's renal function we are not recommending cardiac catheterization at this time. It will be addressed with patient's primary research pharmacist, Dr. Hernandez Continue PO Lasix, Eliquis, statin, carvedilol, Hydralazine and lisinopril From a research pharmacist perspective, patient is stable, discharge per primary Objective - Vital Signs Vital signs: Vital Signs Temp 99.1 F 10/28/21 08:00 Pulse 60 10/28/21 12:05 Resp 16 10/28/21 08:00 BP 173/70 10/28/21 08:00 Pulse Ox 96 10/28/21 08:00 Intake & Output 10/27/21 10/28/21 10/28/21 18:59 06:59 18:59 Intake Total 678 485 280 Output Total 100 Balance 578 485 280 Intake: IV 40 20 Invasive Line 1 20 10 Invasive Line 2 20 10 Oral 638 485 260 Output: Urine 100 Other: Voiding Method Toilet # Voids 1 1 1 - Labs CBC & Chem 7: 10/28/21 07:03 10/28/21 07:03 Labs: Abnormal Lab Results - Last 24 Hours (Table) 10/27/21 10/27/21 10/27/21 Range/Units 15:10 16:30 18:23 RBC (3.80-5.40) m/uL Hgb (11.4-16.0) gm/dL Hct (34.0-46.0) % Sodium (137-145) mmol/L BUN (7-17) mg/dL Creatinine (0.52-1.04) mg/dL Glucose (74-99) mg/dL POC Glucose (mg/dL) 418 H 325 H 153 H (75-99) mg/dL Calcium (8.4-10.2) mg/dL Total Protein (6.3-8.2) g/dL Albumin (3.5-5.0) g/dL 10/27/21 10/27/21 10/28/21 Range/Units 20:51 21:39 01:19 RBC (3.80-5.40) m/uL Hgb (11.4-16.0) gm/dL Hct (34.0-46.0) % Sodium (137-145) mmol/L BUN (7-17) mg/dL Creatinine (0.52-1.04) mg/dL Glucose (74-99) mg/dL POC Glucose (mg/dL) 67 L 133 H 183 H (75-99) mg/dL Calcium (8.4-10.2) mg/dL Total Protein (6.3-8.2) g/dL Albumin (3.5-5.0) g/dL 10/28/21 10/28/21 10/28/21 Range/Units 02:51 05:53 07:03 RBC 3.47 L (3.80-5.40) m/uL Hgb 9.9 L (11.4-16.0) gm/dL Hct 31.9 L (34.0-46.0) % Sodium (137-145) mmol/L BUN (7-17) mg/dL Creatinine (0.52-1.04) mg/dL Glucose (74-99) mg/dL POC Glucose (mg/dL) 170 H 194 H (75-99) mg/dL Calcium (8.4-10.2) mg/dL Total Protein (6.3-8.2) g/dL Albumin (3.5-5.0) g/dL 10/28/21 10/28/21 10/28/21 Range/Units 07:03 08:09 11:38 RBC (3.80-5.40) m/uL Hgb (11.4-16.0) gm/dL Hct (34.0-46.0) % Sodium 135 L (137-145) mmol/L BUN 57 H (7-17) mg/dL Creatinine 1.89 H (0.52-1.04) mg/dL Glucose 183 H (74-99) mg/dL POC Glucose (mg/dL) 197 H 256 H (75-99) mg/dL Calcium 8.1 L (8.4-10.2) mg/dL Total Protein 5.6 L (6.3-8.2) g/dL Albumin 3.0 L (3.5-5.0) g/dL Microbiology - Last 24 Hours (Table) 10/27/21 10:30 Urine Culture - Preliminary Urine,Clean Catch
--- NOTE | 2021-10-28 13:52 | P.PN ---
Subjective Patient is seen for follow-up for acute kidney injury on top of chronic kidney disease. Patient was tentatively scheduled for cardiac catheterization however her serum creatinine has been elevated and therefore the procedure is canceled and patient will follow-up as outpatient from cardiology standpoint. She remains chest pain-free. Samm inhibitors were decreased as blood pressure was on the lower side. Patient did not get discharged yesterday as her blood sugar had dropped significantly. No chest pain Objective - Vital Signs Vital signs: Vital Signs Temp 98.6 F 10/28/21 12:00 Pulse 60 10/28/21 12:05 Resp 16 10/28/21 12:00 BP 140/63 10/28/21 12:00 Pulse Ox 96 10/28/21 12:00 Intake & Output 10/27/21 10/28/21 10/28/21 18:59 06:59 18:59 Intake Total 678 485 640 Output Total 100 Balance 578 485 640 Intake: IV 40 20 Invasive Line 1 20 10 Invasive Line 2 20 10 Oral 638 485 620 Output: Urine 100 Other: Voiding Method Toilet # Voids 1 1 1 - Exam Patient is comfortable awake. Not in any acute distress. 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 - Labs CBC & Chem 7: 10/28/21 07:03 10/28/21 07:03 Labs: Abnormal Lab Results - Last 24 Hours (Table) 10/27/21 10/27/21 10/27/21 Range/Units 15:10 16:30 18:23 RBC (3.80-5.40) m/uL Hgb (11.4-16.0) gm/dL Hct (34.0-46.0) % Sodium (137-145) mmol/L BUN (7-17) mg/dL Creatinine (0.52-1.04) mg/dL Glucose (74-99) mg/dL POC Glucose (mg/dL) 418 H 325 H 153 H (75-99) mg/dL Calcium (8.4-10.2) mg/dL Total Protein (6.3-8.2) g/dL Albumin (3.5-5.0) g/dL 10/27/21 10/27/21 10/28/21 Range/Units 20:51 21:39 01:19 RBC (3.80-5.40) m/uL Hgb (11.4-16.0) gm/dL Hct (34.0-46.0) % Sodium (137-145) mmol/L BUN (7-17) mg/dL Creatinine (0.52-1.04) mg/dL Glucose (74-99) mg/dL POC Glucose (mg/dL) 67 L 133 H 183 H (75-99) mg/dL Calcium (8.4-10.2) mg/dL Total Protein (6.3-8.2) g/dL Albumin (3.5-5.0) g/dL 10/28/21 10/28/21 10/28/21 Range/Units 02:51 05:53 07:03 RBC 3.47 L (3.80-5.40) m/uL Hgb 9.9 L (11.4-16.0) gm/dL Hct 31.9 L (34.0-46.0) % Sodium (137-145) mmol/L BUN (7-17) mg/dL Creatinine (0.52-1.04) mg/dL Glucose (74-99) mg/dL POC Glucose (mg/dL) 170 H 194 H (75-99) mg/dL Calcium (8.4-10.2) mg/dL Total Protein (6.3-8.2) g/dL Albumin (3.5-5.0) g/dL 10/28/21 10/28/21 10/28/21 Range/Units 07:03 08:09 11:38 RBC (3.80-5.40) m/uL Hgb (11.4-16.0) gm/dL Hct (34.0-46.0) % Sodium 135 L (137-145) mmol/L BUN 57 H (7-17) mg/dL Creatinine 1.89 H (0.52-1.04) mg/dL Glucose 183 H (74-99) mg/dL POC Glucose (mg/dL) 197 H 256 H (75-99) mg/dL Calcium 8.1 L (8.4-10.2) mg/dL Total Protein 5.6 L (6.3-8.2) g/dL Albumin 3.0 L (3.5-5.0) g/dL Microbiology - Last 24 Hours (Table) 10/27/21 10:30 Urine Culture - Preliminary Urine,Clean Catch Assessment and Plan Assessment: 1. Acute kidney injury, ATN, cardiorenal and secondary to low blood pressure. Samm inhibitors were decreased. Serum creatinine increased to 1.8 today 2. Acute non-ST elevation NM with initial plans for cardiac catheterization however this is now postponed to outpatient. 3. CK D stage III Baseline creatinine 1.3-1.4 mg/dL. Etiology is nephrosclerosis. Previous UA in August showed trace proteinuria 4. CHF and volume overload status post diuresis switched to oral Lasix. Mostly diastolic in nature 5. Hypertension blood pressure slightly on the lower side. Samm inhibitors decreased yesterday 6. Chronic A. fib maintained on eliquis. Plan: Continue with decreased dose of SAMM inhibitor's. Patient is advised to monitor blood pressure at home. Then follow-up with cardiology as outpatient and follow-up with nephrology in 1-2 weeks as outpatient.
[2021-10-28 16:17] LABS: Glucose,Whole Blood 178 mg/dL (75-99)
[2021-10-28 16:20] VITALS: BP 152/78; PULSE 61; TEMP 97.9
== END 2021-10-28 16:21 | disposition home health service (06) | DRG 280 ==
LOC: EC 02:57 → 3SCARD 06:13
PROVIDERS: ADMIT Internal Medicine Geriatric Medicine; ATTEND Internal Medicine Geriatric Medicine
DX: I21.A1 Myocardial infarction type 2 (principal); I50.33 Acute on chronic diastolic (congestive) heart failure; J96.01 Acute respiratory failure with hypoxia; N17.0 Acute kidney failure with tubular necrosis; I13.0 Hypertensive heart and chronic kidney disease with heart failure and stage 1 through stage 4 chronic kidney disease, or unspecified chronic kidney disease; I16.1 Hypertensive emergency; J44.1 Chronic obstructive pulmonary disease with (acute) exacerbation; E03.9 Hypothyroidism, unspecified; E11.22 Type 2 diabetes mellitus with diabetic chronic kidney disease; E11.40 Type 2 diabetes mellitus with diabetic neuropathy, unspecified; E11.649 Type 2 diabetes mellitus with hypoglycemia without coma; E66.01 Morbid (severe) obesity due to excess calories; Z68.32 Body mass index [BMI] 32.0-32.9, adult; E78.5 Hyperlipidemia, unspecified; F32.A Depression, unspecified; F41.9 Anxiety disorder, unspecified; Z99.81 Dependence on supplemental oxygen; G47.33 Obstructive sleep apnea (adult) (pediatric); D63.1 Anemia in chronic kidney disease; I08.0 Rheumatic disorders of both mitral and aortic valves; I27.20 Pulmonary hypertension, unspecified; Z95.2 Presence of prosthetic heart valve; N18.31 Chronic kidney disease, stage 3a; I25.10 Atherosclerotic heart disease of native coronary artery without angina pectoris; I25.2 Old myocardial infarction; I48.0 Paroxysmal atrial fibrillation; G89.29 Other chronic pain; H93.19 Tinnitus, unspecified ear; I49.3 Ventricular premature depolarization; M19.90 Unspecified osteoarthritis, unspecified site; Z77.22 Contact with and (suspected) exposure to environmental tobacco smoke (acute) (chronic); Z79.01 Long term (current) use of anticoagulants; Z79.4 Long term (current) use of insulin; Z79.82 Long term (current) use of aspirin; Z79.84 Long term (current) use of oral hypoglycemic drugs; Z79.890 Hormone replacement therapy; Z79.899 Other long term (current) drug therapy; Z80.0 Family history of malignant neoplasm of digestive organs; Z80.6 Family history of leukemia; Z80.8 Family history of malignant neoplasm of other organs or systems; Z82.0 Family history of epilepsy and other diseases of the nervous system; Z82.3 Family history of stroke; Z82.49 Family history of ischemic heart disease and other diseases of the circulatory system; Z83.3 Family history of diabetes mellitus; Z85.828 Personal history of other malignant neoplasm of skin; Z86.73 Personal history of transient ischemic attack (TIA), and cerebral infarction without residual deficits; Z87.01 Personal history of pneumonia (recurrent); Z90.710 Acquired absence of both cervix and uterus; E55.9 Vitamin D deficiency, unspecified; Z98.84 Bariatric surgery status; Z90.89 Acquired absence of other organs; Z98.42 Cataract extraction status, left eye; Z98.41 Cataract extraction status, right eye; Z96.1 Presence of intraocular lens
CPT/HCPCS: 36415; 71045; 80048; 80053; 81001; 83605; 83735; 83880; 84484; 85025; 85027; 85610; 85730; 87077; 87086; 87186; 93005; 93306; 94150; 94640; 94660; 94760; 96374; 96375; 96376; 99291

== ENCOUNTER 2021-11-05 18:31 | Inpatient (IN) | payer MEDICARE ==
[2021-11-05] MEDS ORDERED: NITROGLYCERIN SL TABS 0.4 MG TAB SUBLINGUAL STA (19:11)
--- NOTE | 2021-11-05 19:11 | ED ---
General Adult HPI - General Chief complaint: Shortness of Breath Stated complaint: ROBBY Time Seen by Provider: 11/05/21 18:33 Source: patient, EMS Mode of arrival: EMS Limitations: no limitations - History of Present Illness Initial comments: Dictation was produced using [employer] dictation software. please excuse any grammatical, word or spelling errors. Chief Complaint: 81-year-old female presents to the emergency department for dyspnea 3 hours History of Present Illness: And is an 81-year-old female she has past medical history of leaky aortic valve, COPD, heart failure. She states that over the last 3 hours she experience acute onset shortness of breath. Patient states she will go fine feeling well this morning. She felt very nauseated. Denies any coughing. No fevers. Denies any chest pain. She called EMS was brought to the emergency department. Patient has multiple comorbidities. States she's been compliant with all of her medications. She does take an coagulation medications. She allegedly has a history of respiratory arrest. She took a Lasix prior to arrival to see if that would help her symptoms. She reports that her symptoms are worse when lying flat. The ROS documented in this emergency department record has been reviewed and confirmed by me. Those systems with pertinent positive or negative responses have been documented in the HPI. All other systems are other negative and/or noncontributory. PHYSICAL EXAM: General Impression: Alert and oriented x3, slightly dyspneic HEENT: Normocephalic atraumatic, extra-ocular movements intact, pupils equal and reactive to light bilaterally, mucous membranes moist. Cardiovascular: Heart regular rate and rhythm Chest: 6 word sentences, no retractions, mild tachypneic diffuse crackles in the lung gomez Abdomen: abdomen soft, non-tender, non-distended, no organomegaly Musculoskeletal: Pulses present and equal in all extremities, no peripheral edema Motor: no focal deficits noted Neurological: CN II-XII grossly intact, no focal motor or sensory deficits noted Skin: Intact with no visualized rashes Psych: Normal affect and mood ED course: 81 y Old female presents to the emergency department for shortness of breath. Clinical presentation consistent with heart failure exacerbation. Bony care bedside ultrasound was performed at the bedside showing B lines. Vital signs upon arrival shows heart rate of 11, blood pressure 180/79. Patient arrived from EMS on nonrebreather. She is transitioned to 3 L is a cannula 97% O2 saturation rate. Chart review shows the patient was admitted to the hospital 8 days ago for CHF exacerbation. Laboratory evaluation obtained. Mild leukocytosis of 11.8, hemoglobin 10.0. Labs within acceptable limits. Coag panel is unremarkable. Metabolic panel is within acceptable limits. Brain natruretic peptide is 2240. Which is slightly above her baseline. Chest x-ray shows basilar airspace opacities right greater than left. Patient given sublingual nitroglycerin which improved her blood pressure. She is reevaluated 9:55 PM found to be in stable medical condition. She is resting comfortably. At this point patient's clinical presentation likely secondary to heart failure exacerbation however COPD as part of the differential. She is trialed with DuoNeb and given Decadron. Patient is yudy athing comfortably at this time. Patient will be admitted with consultation to pulmonology and cardiology. She is given Lasix. Despite patient does not meet criteria for BiPAP. Given that she is not showing signs of significant respiratory distress. Patient given nitro patch. EKG interpretation: Ventricular rate 101, sinus tachycardia,. Interval 137, QS 117, QTC 428. No VT prolongation, no QTC prolongation, no ST or T-wave changes noted. EKG compared to 10/24/2021 showing no changes. Overall, this EKG is unremarkable - Related Data Home Medications Medication Instructions Recorded Confirmed Atorvastatin [Lipitor] 80 mg PO HS 06/30/18 11/05/21 hydrALAZINE HCL [Apresoline] 100 mg PO TID 01/06/19 11/05/21 Insulin NPL/Insulin Lispro 20 unit SQ W/SUPPER 05/30/20 11/05/21 [humaLOG MIX 75-25 VIAL] Insulin NPL/Insulin Lispro 30 unit SQ W/BRKFST 06/05/20 11/05/21 [humaLOG MIX 75-25 VIAL] Ergocalciferol [Vitamin D2 50,000 unit PO TU 07/19/20 11/05/21 (DRISDOL)] Pioglitazone [Actos] 15 mg PO DAILY 09/13/20 11/05/21 Potassium Chloride ER [K-Dur 20] 20 meq PO W/BRKFST 08/06/21 11/05/21 Sertraline [Zoloft] 25 mg PO DAILY 08/30/21 11/05/21 Albuterol Nebulized [Ventolin 2.5 mg INHALATION RT-QID PRN 09/24/21 11/05/21 Nebulized] Artificial Tears-Hypromellose 1 drop BOTH EYES TID PRN 09/24/21 11/05/21 [Artificial Tear Drops] Aspirin/Acetaminophen/Caffeine 2 tab PO DAILY PRN 09/24/21 11/05/21 [Excedrin Extra Strength Caplet] Docusate [Colace] 100 mg PO DAILY 09/24/21 11/05/21 Elderberry Fruit and Flower [Black 1 cap PO DAILY 09/24/21 11/05/21 Elderberry 575 mg Cap] Isosorbide Mononitrate ER [Imdur] 60 mg PO DAILY 09/24/21 11/05/21 Magnesium Oxide [Pierce] 500 mg PO DAILY 09/24/21 11/05/21 Melatonin 5 mg PO HS 09/24/21 11/05/21 Multivit-Min/Iron/Folic/Lutein 1 tab PO DAILY 09/24/21 11/05/21 [Centrum Silver Women Tablet] amLODIPine [Norvasc] 5 mg PO HS 09/24/21 11/05/21 Previous Rx's Medication Instructions Recorded Apixaban [Eliquis] 5 mg PO BID #60 tab 07/04/18 Levothyroxine Sodium [Synthroid] 125 mcg PO DAILY #30 tab 01/08/19 carvediloL [Coreg*] 12.5 mg PO BID-W/MEALS #60 tab 05/11/21 polyethylene glycoL 3350 [Miralax] 17 gm PO DAILY packet 08/12/21 Meclizine [Antivert] 25 mg PO TID PRN #60 tab 09/05/21 Aspirin [Adult Low Dose Aspirin EC] 81 mg PO AC-BRKFST #30 tab 10/28/21 Furosemide [Lasix] 40 mg PO BID@0900,1600 30 Days #60 10/28/21 tab lisinopriL 20 mg PO DAILY #0 10/28/21 Allergies Allergy/AdvReac Type Severity Reaction Status Date / Time azithromycin Allergy Rash/Hives Verified 11/05/21 19:36 [From Zithromax Z-Jeanmarie] methylprednisolone Allergy Rash/Hives Verified 11/05/21 19:36 [From Medrol] sulfamethoxazole Allergy Rash/Hives Verified 11/05/21 19:36 [From Bactrim] trimethoprim [From Bactrim] Allergy Rash/Hives Verified 11/05/21 19:36 hydrochlorothiazide AdvReac lost Verified 11/05/21 19:36 balance and fell Review of Systems ROS Statement: Those systems with pertinent positive or pertinent negative responses have been documented in the HPI. ROS Other: All systems not noted in ROS Statement are negative. Past Medical History Past Medical History: Atrial Fibrillation, Cancer, Heart Failure, COPD, Diabetes Mellitus, Hyperlipidemia, Osteoarthritis (OA), Pneumonia, Sleep Apnea/CPAP/BIPAP, Thyroid Disorder Additional Past Medical History / Comment(s): Stage III Kidney Disease, hx Pneumonia with Sepsis, no CPAP use, Vitamin D Deficiency, chronic low back pain, frequent constipation, hx skin cancer, neuropathy History of Any Multi-Drug Resistant Organisms: None Reported Past Surgical History: Adenoidectomy, Back Surgery, Bariatric Surgery, Cholecystectomy, Heart Catheterization, Hysterectomy, Tonsillectomy Additional Past Surgical History / Comment(s): Cardiac caths 2010/2014, lap band placed/since removed, low back surgery, L carpal tunnel release X2, skin cancer removal, colonoscopies, bilateral cataract removals/lens implants. Past Anesthesia/Blood Transfusion Reactions: Previous Problems w/ Anesthesia Additional Past Anesthesia/Blood Transfusion Reaction / Comment(s): "Had too much anesthesia in 2007 for lap band removal, had to be bagged." Past Psychological History: No Psychological Hx Reported, Depression Smoking Status: Never smoker - Past Family History Sister(s) Family Medical History: Myocardial Infarction ([place]) Brother(s) Family Medical History: Cancer Additional Family Medical History / Comment(s): Colon Cancer. Mother Family Medical History: Dementia Additional Family Medical History / Comment(s): Mother of dementia at the age of 89yrs. Father Family Medical History: Cancer Additional Family Medical History / Comment(s): Pt states her father was treated for a sinus infection but really had leukemia and of this at the age of 72 yrs. General Exam Limitations: no limitations Course Vital Signs 11/05/21 11/05/21 11/05/21 18:34 18:42 19:55 Temperature 98.0 F Pulse Rate 101 H 101 H 92 Respiratory 24 20 20 Rate Blood Pressure 188/79 186/92 189/78 O2 Sat by Pulse 100 97 97 Oximetry 11/05/21 11/05/21 20:51 21:49 Temperature Pulse Rate 81 77 Respiratory 20 18 Rate Blood Pressure 175/84 191/84 O2 Sat by Pulse 98 100 Oximetry Medical Decision Making - Lab Data Result diagrams: 11/05/21 19:11 11/05/21 19:11 Lab Results 11/05/21 11/05/21 11/05/21 Range/Units 19:11 19:11 19:11 WBC 11.8 H (3.8-10.6) k/uL RBC 3.51 L (3.80-5.40) m/uL Hgb 10.0 L (11.4-16.0) gm/dL Hct 32.9 L (34.0-46.0) % MCV 93.7 (80.0-100.0) fL MCH 28.5 (25.0-35.0) pg MCHC 30.4 L (31.0-37.0) g/dL RDW 14.6 (11.5-15.5) % Plt Count 274 (150-450) k/uL MPV 8.3 Neutrophils % 71 % Lymphocytes % 11 % Monocytes % 10 % Eosinophils % 5 % Basophils % 1 % Neutrophils # 8.4 H (1.3-7.7) k/uL Lymphocytes # 1.3 (1.0-4.8) k/uL Monocytes # 1.1 H (0-1.0) k/uL Eosinophils # 0.6 (0-0.7) k/uL Basophils # 0.1 (0-0.2) k/uL Hypochromasia Marked PT 10.6 (9.0-12.0) sec INR 1.0 (<1.2) APTT 24.5 (22.0-30.0) sec Sodium 139 (137-145) mmol/L Potassium 4.3 (3.5-5.1) mmol/L Chloride 110 H (98-107) mmol/L Carbon Dioxide 22 (22-30) mmol/L Anion Gap 7 mmol/L BUN 30 H (7-17) mg/dL Creatinine 1.38 H (0.52-1.04) mg/dL Est GFR (CKD-EPI)AfAm 42 (>60 ml/min/1.73 sqM) Est GFR (CKD-EPI)NonAf 36 (>60 ml/min/1.73 sqM) Glucose 235 H (74-99) mg/dL Calcium 8.4 (8.4-10.2) mg/dL Total Bilirubin 0.4 (0.2-1.3) mg/dL AST 31 (14-36) U/L ALT 22 (4-34) U/L Alkaline Phosphatase 146 H (38-126) U/L NT-Pro-B Natriuret Pep pg/mL Total Protein 6.7 (6.3-8.2) g/dL Albumin 3.6 (3.5-5.0) g/dL 11/05/21 Range/Units 19:11 WBC (3.8-10.6) k/uL RBC (3.80-5.40) m/uL Hgb (11.4-16.0) gm/dL Hct (34.0-46.0) % MCV (80.0-100.0) fL MCH (25.0-35.0) pg MCHC (31.0-37.0) g/dL RDW (11.5-15.5) % Plt Count (150-450) k/uL MPV Neutrophils % % Lymphocytes % % Monocytes % % Eosinophils % % Basophils % % Neutrophils # (1.3-7.7) k/uL Lymphocytes # (1.0-4.8) k/uL Monocytes # (0-1.0) k/uL Eosinophils # (0-0.7) k/uL Basophils # (0-0.2) k/uL Hypochromasia PT (9.0-12.0) sec INR (<1.2) APTT (22.0-30.0) sec Sodium (137-145) mmol/L Potassium (3.5-5.1) mmol/L Chloride (98-107) mmol/L Carbon Dioxide (22-30) mmol/L Anion Gap mmol/L BUN (7-17) mg/dL Creatinine (0.52-1.04) mg/dL Est GFR (CKD-EPI)AfAm (>60 ml/min/1.73 sqM) Est GFR (CKD-EPI)NonAf (>60 ml/min/1.73 sqM) Glucose (74-99) mg/dL Calcium (8.4-10.2) mg/dL Total Bilirubin (0.2-1.3) mg/dL AST (14-36) U/L ALT (4-34) U/L Alkaline Phosphatase (38-126) U/L NT-Pro-B Natriuret Pep 2240 pg/mL Total Protein (6.3-8.2) g/dL Albumin (3.5-5.0) g/dL Disposition Clinical Impression: Dyspnea Disposition: ADMITTED IP TO THIS HOSP Condition: Fair Referrals: Dontae Dawn MD [Primary Care Provider] - 1-2 days
[2021-11-05] MEDS ORDERED: FUROSEMIDE 10 MG/ML 4 ML VIAL IV STA (19:12)
[2021-11-05 19:34] LABS: Basophils # (A) 0.1 k/uL (0-0.2); Basophils % (A) 1 %; Eosinophils # (A) 0.6 k/uL (0-0.7); Eosinophils % (A) 5 %; HCT 32.9 % (34.0-46.0); Hypochromasia Marked; Lymphocytes # (A) 1.3 k/uL (1.0-4.8); Lymphocytes % (A) 11 %; MCH 28.5 pg (25.0-35.0); MCHC 30.4 g/dL (31.0-37.0); MCV 93.7 fL (80.0-100.0); Mean Platelet Volume 8.3; Monocytes # (A) 1.1 k/uL (0-1.0); Monocytes % (A) 10 %; Neutrophils # (A) 8.4 k/uL (1.3-7.7); Neutrophils % (A) 71 %; Platelet Count 274 k/uL (150-450); RBC 3.51 m/uL (3.80-5.40); RDW 14.6 % (11.5-15.5); WBC 11.8 k/uL (3.8-10.6)
--- NOTE | 2021-11-05 19:34 | XR ---
EXAMINATION TYPE: XR chest 1V portable DATE OF EXAM: 11/05/2021 7:24 PM COMPARISON:Chest radiographs from 10/26/2021 TECHNIQUE: XR chest 1V portable Frontal view of the chest. CLINICAL INDICATION:Female, 81 years old with history of dyspnea; FINDINGS: Lungs/Pleura: Low lung volumes are present. Bibasilar opacities are present which felt to be increase d from prior. There is no evidence of pleural effusion, or pneumothorax. Pulmonary vascularity: Unremarkable. Heart/mediastinum: Cardiomediastinal silhouette is prominent in size. Atherosclerotic calcifications are seen in the aorta. Musculoskeletal: No acute osseous pathology. IMPRESSION: Basilar airspace opacities, right greater than left correlate for nerves/pneumonitis in setting of as piration.
[2021-11-05 19:43] LABS: Albumin 3.6 g/dL (3.5-5.0); Calcium 8.4 mg/dL (8.4-10.2); Potassium 4.3 mmol/L (3.5-5.1); Total Bilirubin 0.4 mg/dL (0.2-1.3); Total Protein 6.7 g/dL (6.3-8.2)
[2021-11-05 19:55] LABS: Partial Thromboplastin Time 24.5 sec (22.0-30.0); Prothrombin Time 10.6 sec (9.0-12.0)
[2021-11-05] MEDS ORDERED: IPRATROPIUM-ALBUTEROL 3 ML NEB INHALATION STA (21:38)
[2021-11-05] MEDS ORDERED: DEXAMETHASONE SOD PHOSPHATE 10 MG/ML 1 ML VIAL IV STA (21:39)
[2021-11-05] MEDS ORDERED: NITROGLYCERIN 0.2MG/HR PATCH TRANSDERM STA (21:51)
[2021-11-05] MEDS ORDERED: NALOXONE 0.4 MG/ML 1 ML VIAL IV PRN (21:53)
[2021-11-05] MEDS: SODIUM CHLORIDE 0.9% 1,000 ML IV SCH (23:24)
[2021-11-06 00:30] LABS: Glucose,Whole Blood 85 mg/dL (75-99)
[2021-11-06] MEDS ORDERED: hydrALAZINE HCL 20 MG/ML 1 ML VIAL IVP STA (02:15)
[2021-11-06 05:55] LABS: Glucose,Whole Blood 356 mg/dL (75-99)
[2021-11-06] MEDS: LEVOTHYROXINE 125 MCG TAB PO SCH (06:35)
[2021-11-06] MEDS: ACETAMINOPHEN TAB 325 MG TAB PO PRN (06:35)
[2021-11-06] MEDS: carvediloL 12.5 MG TAB PO SCH ×2 (06:35→17:19)
[2021-11-06] MEDS: INSULIN ASPART (NovoLOG) 100 UNIT/ML VIAL SQ SCH ×4 (06:36→19:51)
[2021-11-06] MEDS ORDERED: POTASSIUM CHLORIDE ER 20 MEQ TAB.ER PO SCH (07:30)
[2021-11-06] MEDS: INSULN ASP PRT/INSULIN ASPART 100 UNIT/ML 10 ML VIAL SQ SCH ×3 (07:50→19:52)
[2021-11-06] MEDS: APIXABAN 5 MG TAB PO SCH ×2 (07:54→19:52)
[2021-11-06] MEDS: hydrALAZINE HCL 50 MG TAB PO SCH ×3 (07:54→19:52)
[2021-11-06] MEDS: SERTRALINE 25 MG TAB PO SCH (07:54)
[2021-11-06] MEDS: DOCUSATE 100 MG CAP PO SCH (07:54)
[2021-11-06] MEDS: MAGNESIUM OXIDE 400 MG TAB PO SCH (07:54)
[2021-11-06] MEDS: ISOSORBIDE MONONITRATE ER 60 MG TAB.ER.24H PO SCH (07:54)
[2021-11-06] MEDS: polyethylene glycoL 3350 17 GM POWD.PACK PO SCH (07:55)
[2021-11-06] MEDS: PIOGLITAZONE 15 MG TAB PO SCH (07:55)
[2021-11-06] MEDS: FUROSEMIDE 10 MG/ML 4 ML VIAL IV SCH ×2 (07:55→19:52)
[2021-11-06] MEDS: ASPIRIN 81 MG PO SCH (08:00)
[2021-11-06] MEDS: POTASSIUM CHLORIDE ER 20 MEQ TAB.ER PO SCH (08:00)
[2021-11-06] MEDS: ALBUTEROL NEBULIZED 2.5 MG/3 ML INHALATION PRN ×3 (08:55→15:43)
[2021-11-06] MEDS ORDERED: ARTIFICIAL TEARS-HYPROMELLOSE DROPS 15 ML BTL BOTH EYES PRN (09:00)
[2021-11-06] MEDS ORDERED: lisinopriL 20 MG TAB PO SCH (09:00)
[2021-11-06] MEDS ORDERED: MECLIZINE 25 MG TAB PO PRN (09:00)
[2021-11-06] MEDS ORDERED: ASPIRIN-ACET-CAFF 250-250-65MG 1 EACH TAB PO PRN (09:00)
[2021-11-06 10:26] LABS: Glucose,Whole Blood 313 mg/dL (75-99)
[2021-11-06 11:43] LABS: Glucose,Whole Blood 394 mg/dL (75-99)
--- NOTE | 2021-11-06 14:38 | P.HPIM ---
History of Present Illness H&P Date: 11/06/21 HISTORY OF PRESENT ILLNESS This is a 81-year-old female patient of Dr. Dawn/Henri Mejía NP and Dr. 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 Amaya for pain management. last hospitalization was in10/24 for acute on chronic diastolic heart failure. At that time echocardiogram revealed EF of 55-60% with severe concentric left ventricular hypertrophy, moderate to sever aortic stenosis, moderate mitral regurgitation, mild tricuspid regurgitation, mild pulmonary hypertension. Felipe arently patient was doing well until yesterday when she went to [facility] with her family had a good time when she returned back home she started getting shortness of breath and dizziness and brought in by EMS for CHF exacerbation. X-ray was obtained and suggested basilar airspace opacities right greater than left. Patient's blood pressure was 180/79 on admission. Arm and that certainly remains in all ordered patient proBNP of 2000 250. Patient was placed on a nonrebreather on admission and was transitioned on to 3 L on and saturating at 97% on 2 L. Patient was evaluated in the room today, breathing comfortably on 2 L of oxygen. Denies any coughing or wheezing. Lasix was given in the ER. We'll continue Lasix at 40 IV twice a day. Cardiology consulted for troponin elevation. Patient was planned to undergo cardiac cath procedure for aortic valve replacement. Patient initiated back on NPH//lispro 7530 units with breakfast and 20 units with supper along with insulin sliding scale. Coreg initiated 12.5 twice a day. All medications were resumed REVIEW OF SYSTEMS Constitutional: No fever, no chills, no night sweats. No weight change. No weakness, fatigue or lethargy. No daytime sleepiness. EENT: Reported headache. No blurred vision or double vision, no loss of vision. No loss of Hearing, no ringing in the ears, no dizziness. No nasal drainage or congestion. No epistaxis. No sore throat. Lungs: Significant shortness of breath and respiratory failure, on BiPAP and high flow oxygen along with updraft treatment. Cardiovascular: Shortness of breath positive lower extremity edema. No palpitations. No paroxysmal nocturnal dyspnea. No orthopnea. No lightheadedness or dizziness. Reports syncopal episodes. Abdominal: No abdominal pain. No nausea, vomiting. No diarrhea. No constipation. No bloody or tarry stools. No loss of appetite. Genitourinary: Reported dysuria, no increased frequency, no urgency. No urinary retention. Musculoskeletal: No myalgias. No muscle weakness, no gait dysfunction, no frequent falls. No back pain. No neck pain. Integumentary: No wounds, no lesions. No rash or pruritus. No unusual bruising. No change in hair or nails. Neurologic: No aphasia. No facial droop. No change in mentation. No head injury. No headache. No paralysis. No paresthesia. Psychiatric: No depression. Reports anxiety. No mood swings. Endocrine: Noted abnormal blood sugars. No weight change. SOCIAL HISTORY Patient is a lifelong nonsmoker but had secondhand smoke exposure with her , no marijuana use, alcohol use, illicit drug use. FAMILY HISTORY Mother at age 90 from CVA with history of Alzheimer's dementia and hypertension. Father at age 72 from leukemia. Patient has one sister that of a brain cancer. Patient has 2 brothers and one has severe diabetes and valvular heart disease. One brother has passed from alcohol and drug related issues. Patient has 2 sons and 2 daughters with no major medical problems. PHYSICAL EXAMINATION Gen: This is a 81-year-old female, obese, patient is laying in bed has BiPAP on Lyrica mild respiratory distress. HEENT: Head is atraumatic, normocephalic. Pupils equal, round. Sclerae is anicteric. NECK: Supple. No JVD. No lymphadenopathy. No thyromegaly. LUNGS: Decreased for some tooth, has mild crackles in bases specially the right side has mild respiratory expected wheezes. HEART: Regular rate and rhythm. 3/6 systolic murmur. S1, S2, positive S3. ABDOMEN: Soft. Bowel sounds are present. No masses. No tenderness. EXTREMITIES: 1+ bilateral pedal edema. No calf tenderness. Dorsalis pedis +2 bilaterally. NEUROLOGICAL: Patient is awake, alert and oriented x3. Cranial nerves 2 through 12 are grossly intact. ASSESSMENT AND PLAN 1 acute hypoxic respiratory failure: Secondary to CHF exacerbation and COPD ruled outs 10 milligram of IV dexamethasone DuoNeb as needed for shortness of breath Lasix 40 IV twice a day cardiology consulted. Does not appear to be in COPD exacerbation no wheezing on examination 2 non-ST segment elevation myocardial infarction: With elevated troponin patient was planned for cardiac cath as outpatient before aortic valve replacement. Cardiology consulted for possible cardiac cath 3 congestive heart failure exacerbation: Mostly diastolic's function, patient remain on furosemide, Coreg lisinopril 20 mg daily ill watch daily weight and fluid intake. 4 COPD Patient is lifelong nonsmoker but she lived with a smoker for over 50 years more than 2 packDuoNeb as needed for shortness of breath 5 Paroxysmal atrial fibrillation continue eliquis 5 mg twice daily, Coreg 12.5 mg twice daily. 6 obstructive sleep apnea: Currently not using CPAP will require further management. 7stage III chronic kidney disease, the Ambien at baseline continue gentle hydration repeat CMP daily basis. 8 hypertension: Remain on amlodipine 10 mg a day Coreg 12.5 mg twice a day hydralazine 50 mg 2 times a day continue liNTmg daily as well. 9 type 2 diabetes: Has been on next Humalog 75/25 30 units in the morning 20 units the evening, still on pioglitazone 15 mg daily which will be held for now and continue short acting insulin per sliding scales coverage. 10 chronic anticoagulation management: A Chin remain on Eliquis 5 mg twice a day. 11 Hypothyroidism. Continue levothyroxine 125 g daily. 12. Degenerative disc disease with chronic pain. Follows with pain management with Dr. Amaya. 13. Hyperlipidemia. Continue Lipitor 80 mg at bedtime. 14. Chronic anemia. Continue ferrous sulfate 325 mg daily. 15. GI prophylaxis. Protonix. 16. DVT prophylaxis. Eliquis. Patient will be admitted to the hospital for a minimum of 2 night stay. Past Medical History Past Medical History: Atrial Fibrillation, Cancer, Heart Failure, COPD, Diabetes Mellitus, Hyperlipidemia, Osteoarthritis (OA), Pneumonia, Sleep Apnea/CPAP/BIPAP, Thyroid Disorder Additional Past Medical History / Comment(s): Stage III Kidney Disease, hx Pneumonia with Sepsis, no CPAP use, Vitamin D Deficiency, chronic low back pain, frequent constipation, hx skin cancer, neuropathy History of Any Multi-Drug Resistant Organisms: None Reported Past Surgical History: Adenoidectomy, Back Surgery, Bariatric Surgery, Cholecystectomy, Heart Catheterization, Hysterectomy, Tonsillectomy Additional Past Surgical History / Comment(s): Cardiac caths , lap band placed/since removed, low back surgery, L carpal tunnel release X2, skin cancer removal, colonoscopies, bilateral cataract removals/lens implants. Past Anesthesia/Blood Transfusion Reactions: Previous Problems w/ Anesthesia Additional Past Anesthesia/Blood Transfusion Reaction / Comment(s): "Had too much anesthesia in 2007 for lap band removal, had to be bagged." Past Psychological History: No Psychological Hx Reported, Depression Additional Psychological History / Comment(s): Pt resides alone. Pt uses a walker. She is receiving home care thru [facility]. Smoking Status: Never smoker Past Alcohol Use History: None Reported Past Drug Use History: None Reported - Past Family History Sister(s) Family Medical History: Myocardial Infarction (DE) Brother(s) Family Medical History: Cancer Additional Family Medical History / Comment(s): Colon Cancer. Mother Family Medical History: Dementia Additional Family Medical History / Comment(s): Mother of dementia at the age of 89yrs. Father Family Medical History: Cancer Additional Family Medical History / Comment(s): Pt states her father was treated for a sinus infection but really had leukemia and of this at the age of 72 yrs. Medications and Allergies Home Medications Medication Instructions Recorded Confirmed Type Atorvastatin [Lipitor] 80 mg PO HS 06/30/18 11/05/21 History Apixaban [Eliquis] 5 mg PO BID #60 tab 07/04/18 11/05/21 Rx hydrALAZINE HCL [Apresoline] 100 mg PO TID 01/06/19 11/05/21 History Levothyroxine Sodium [Synthroid] 125 mcg PO DAILY #30 tab 01/08/19 11/05/21 Rx Insulin NPL/Insulin Lispro 20 unit SQ W/SUPPER 05/30/20 11/05/21 History [humaLOG MIX 75-25 VIAL] Insulin NPL/Insulin Lispro 30 unit SQ W/BRKFST 06/05/20 11/05/21 History [humaLOG MIX 75-25 VIAL] Ergocalciferol [Vitamin D2 50,000 unit PO TU 07/19/20 11/05/21 History (DRISDOL)] Pioglitazone [Actos] 15 mg PO DAILY 09/13/20 11/05/21 History carvediloL [Coreg*] 12.5 mg PO BID-W/MEALS #60 tab 05/11/21 11/05/21 Rx Potassium Chloride ER [K-Dur 20] 20 meq PO W/BRKFST 08/06/21 11/05/21 History polyethylene glycoL 3350 [Miralax] 17 gm PO DAILY packet 08/12/21 11/05/21 Rx Sertraline [Zoloft] 25 mg PO DAILY 08/30/21 11/05/21 History Meclizine [Antivert] 25 mg PO TID PRN #60 tab 09/05/21 11/05/21 Rx Albuterol Nebulized [Ventolin 2.5 mg INHALATION RT-QID PRN 09/24/21 11/05/21 History Nebulized] Artificial Tears-Hypromellose 1 drop BOTH EYES TID PRN 09/24/21 11/05/21 History [Artificial Tear Drops] Aspirin/Acetaminophen/Caffeine 2 tab PO DAILY PRN 09/24/21 11/05/21 History [Excedrin Extra Strength Caplet] Docusate [Colace] 100 mg PO DAILY 09/24/21 11/05/21 History Elderberry Fruit and Flower [Black 1 cap PO DAILY 09/24/21 11/05/21 History Elderberry 575 mg Cap] Isosorbide Mononitrate ER [Imdur] 60 mg PO DAILY 09/24/21 11/05/21 History Magnesium Oxide [Pierce] 500 mg PO DAILY 09/24/21 11/05/21 History Melatonin 5 mg PO HS 09/24/21 11/05/21 History Multivit-Min/Iron/Folic/Lutein 1 tab PO DAILY 09/24/21 11/05/21 History [Centrum Silver Women Tablet] amLODIPine [Norvasc] 5 mg PO HS 09/24/21 11/05/21 History Aspirin [Adult Low Dose Aspirin EC] 81 mg PO AC-BRKFST #30 tab 10/28/21 11/05/21 Rx Furosemide [Lasix] 40 mg PO BID@0900,1600 30 Days #60 10/28/21 11/05/21 Rx tab lisinopriL 20 mg PO DAILY #0 10/28/21 11/05/21 Rx Allergies Allergy/AdvReac Type Severity Reaction Status Date / Time azithromycin Allergy Rash/Hives Verified 11/05/21 19:36 [From Zithromax Z-Jeanmarie] methylprednisolone Allergy Rash/Hives Verified 11/05/21 19:36 [From Medrol] sulfamethoxazole Allergy Rash/Hives Verified 11/05/21 19:36 [From Bactrim] trimethoprim [From Bactrim] Allergy Rash/Hives Verified 11/05/21 19:36 hydrochlorothiazide AdvReac lost Verified 11/05/21 19:36 balance and fell Physical Exam Vitals: Vital Signs Temp Pulse Pulse Resp BP BP BP 11/06/21 11:40 97.9 F 82 19 112/56 11/06/21 11:35 78 11/06/21 09:07 84 11/06/21 08:55 84 11/06/21 07:49 94 18 11/06/21 07:47 98.2 F 94 18 175/84 11/06/21 04:00 97.4 F L 90 20 180/79 163/76 11/06/21 02:00 76 20 11/06/21 01:42 189/88 11/06/21 01:17 84 20 181/80 11/06/21 00:53 76 20 11/06/21 00:30 97.0 F L 76 20 207/95 11/05/21 22:51 68 11/05/21 22:40 64 11/05/21 21:49 77 18 191/84 11/05/21 20:51 81 20 175/84 11/05/21 19:55 92 20 189/78 11/05/21 18:42 101 H 20 186/92 11/05/21 18:34 98.0 F 101 H 24 188/79 Pulse Ox 11/06/21 11:40 94 L 11/06/21 11:35 11/06/21 09:07 11/06/21 08:55 11/06/21 07:49 11/06/21 07:47 98 11/06/21 04:00 97 11/06/21 02:00 11/06/21 01:42 11/06/21 01:17 99 11/06/21 00:53 11/06/21 00:30 98 11/05/21 22:51 11/05/21 22:40 11/05/21 21:49 100 11/05/21 20:51 98 11/05/21 19:55 97 11/05/21 18:42 97 11/05/21 18:34 100 Intake and Output 11/05/21 11/06/21 11/06/21 22:59 06:59 14:59 Output Total 400 Balance -400 Output: Urine 400 Other: Voiding Method Toilet Toilet # Voids 2 Weight 95.7 kg 92.7 kg Results CBC & Chem 7: 11/05/21 19:11 11/05/21 19:11 Labs: Abnormal Lab Results - Last 24 Hours (Table) 11/05/21 11/05/21 11/05/21 Range/Units 19:11 19:11 23:46 WBC 11.8 H (3.8-10.6) k/uL RBC 3.51 L (3.80-5.40) m/uL Hgb 10.0 L (11.4-16.0) gm/dL Hct 32.9 L (34.0-46.0) % MCHC 30.4 L (31.0-37.0) g/dL Neutrophils # 8.4 H (1.3-7.7) k/uL Monocytes # 1.1 H (0-1.0) k/uL Chloride 110 H (98-107) mmol/L BUN 30 H (7-17) mg/dL Creatinine 1.38 H (0.52-1.04) mg/dL Glucose 235 H (74-99) mg/dL POC Glucose (mg/dL) (75-99) mg/dL Alkaline Phosphatase 146 H (38-126) U/L Troponin I 0.406 H* (0.000-0.034) ng/mL 11/06/21 11/06/21 11/06/21 Range/Units 02:39 05:49 05:55 WBC (3.8-10.6) k/uL RBC (3.80-5.40) m/uL Hgb (11.4-16.0) gm/dL Hct (34.0-46.0) % MCHC (31.0-37.0) g/dL Neutrophils # (1.3-7.7) k/uL Monocytes # (0-1.0) k/uL Chloride (98-107) mmol/L BUN (7-17) mg/dL Creatinine (0.52-1.04) mg/dL Glucose (74-99) mg/dL POC Glucose (mg/dL) 356 H (75-99) mg/dL Alkaline Phosphatase (38-126) U/L Troponin I 0.320 H* 0.256 H* (0.000-0.034) ng/mL 11/06/21 11/06/21 Range/Units 10:23 11:35 WBC (3.8-10.6) k/uL RBC (3.80-5.40) m/uL Hgb (11.4-16.0) gm/dL Hct (34.0-46.0) % MCHC (31.0-37.0) g/dL Neutrophils # (1.3-7.7) k/uL Monocytes # (0-1.0) k/uL Chloride (98-107) mmol/L BUN (7-17) mg/dL Creatinine (0.52-1.04) mg/dL Glucose (74-99) mg/dL POC Glucose (mg/dL) 313 H 394 H (75-99) mg/dL Alkaline Phosphatase (38-126) U/L Troponin I (0.000-0.034) ng/mL Thrombosis Risk Factor Assmnt - Choose All That Apply Each Factor Represents 1 point: Abnormal pulmonary function (COPD) Other Risk Factors: Yes Each Risk Factor Represents 3 Points: Age 75 years or older Other congenital or acquired thrombophilia - If yes, enter type in comment: No Thrombosis Risk Factor Assessment Total Risk Factor Score: 4 Thrombosis Risk Factor Assessment Level: Moderate Risk
[2021-11-06 14:52] LABS: Glucose,Whole Blood 438 mg/dL (75-99)
--- NOTE | 2021-11-06 15:25 | P.CNPUL ---
History of Present Illness Consult date: 11/06/21 Reason for consult: dyspnea History of present illness: This is an 81-year-old female patient and I was asked even with this patient because of shortness of breath and possibility of a pneumonia. Note that the patient has multiple medical problems and comorbidities. 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 Amaya for pain management. Asked hospitalization was in March 2021 for acute on chronic diastolic heart failure. At that time echocardiogram revealed EF of 55-60% with severe concentric left ventricular hypertrophy, moderate aortic stenosis, moderate mitral regurgitation, mild tricuspid regurgitation, mild pulmonary hypertension. The patient was with family members at a [place]. She was doing well. After arriving home, she became shortness of breath and the shortness of breath progressed over 3 hours and for that reason, she end up coming into the hospital. No palpitation. No angina. No loss of consciousness. No syncope. No pleurisy. No hemoptysis. She was feeling slightly nauseated. Denied having any angina. No cough or sputum production. No fevers. EMS was called to her house and the patient was brought to the ED. In the ED, the patient was placed on 2 L of O2 nasal cannula and later on to 3 L to make a saturation of around 97%. The patient had a chest x- ray that showed increased interstitial markings bilaterally especially lower lobes and possibly some small effusions and currently B-lines. The patient had a white second of 11.8 with hemoglobin of 10, normal correlation profile, normal metabolic profile, proBNP level was 2240, chest x-ray was noted, the patient was given sublingual nitroglycerin and this was given for some chest discomfort and elevated blood pressure. Blood pressure improved. She was given also the one that and she was also given Decadron. EKG showed no acute ischemic changes. A ccordingly, the patient was admitted to the hospital for further care. Note that she had a quite significant elevated blood pressure at time of admission. She does have chronic kidney disease with a creatinine of 1.38 consistent with stage III kidney disease along with a mean of 30 and a sodium level of 139. White cell count is at 11.8. For now, the patient is on IV Lasix 40 mg every 12 hours. Already feeling better. Her weight is not and the patient is in a negative fluid balance. The patient had abnormal troponins and the patient had troponin of 0.2 and 0.3 respectively consistent with an acute non-ST segment elevation myocardial infarction. The EKG showing incomplete RBBB, LVH, sinus tachycardia. No acute ST segment elevation or depression. Review of Systems Constitutional: No fever, no chills, no night sweats. No weight change. No weakness, fatigue or lethargy. No daytime sleepiness. EENT: Reported headache. No blurred vision or double vision, no loss of vision. No loss of Hearing, no ringing in the ears, no dizziness. No nasal drainage or congestion. No epistaxis. No sore throat. Lungs: Significant shortness of breath Cardiovascular: Reported chest pain, positive lower extremity edema. No palpitations. No paroxysmal nocturnal dyspnea. No orthopnea. No lightheadedness or dizziness. Reports syncopal episodes. Abdominal: No abdominal pain. No nausea, vomiting. No diarrhea. No constipation. No bloody or tarry stools. No loss of appetite. Genitourinary: Reported dysuria, no increased frequency, no urgency. No urinary retention. Musculoskeletal: No myalgias. No muscle weakness, no gait dysfunction, no frequent falls. No back pain. No neck pain. Integumentary: No wounds, no lesions. No rash or pruritus. No unusual bruising. No change in hair or nails. Neurologic: No aphasia. No facial droop. No change in mentation. No head injury. No headache. No paralysis. No paresthesia. Psychiatric: No depression. Reports anxiety. No mood swings. Endocrine: Noted abnormal blood sugars. No weight change. Past Medical History Past Medical History: Atrial Fibrillation, Cancer, Heart Failure, COPD, Diabetes Mellitus, Hyperlipidemia, Osteoarthritis (OA), Pneumonia, Sleep Apnea/CPAP/BIPAP, Thyroid Disorder Additional Past Medical History / Comment(s): Stage III Kidney Disease, hx Pneumonia with Sepsis, no CPAP use, Vitamin D Deficiency, chronic low back pain, frequent constipation, hx skin cancer, neuropathy History of Any Multi-Drug Resistant Organisms: None Reported Past Surgical History: Adenoidectomy, Back Surgery, Bariatric Surgery, Cholecystectomy, Heart Catheterization, Hysterectomy, Tonsillectomy Additional Past Surgical History / Comment(s): Cardiac caths , lap band placed/since removed, low back surgery, L carpal tunnel release X2, skin cancer removal, colonoscopies, bilateral cataract removals/lens implants. Past Anesthesia/Blood Transfusion Reactions: Previous Problems w/ Anesthesia Additional Past Anesthesia/Blood Transfusion Reaction / Comment(s): "Had too much anesthesia in 2007 for lap band removal, had to be bagged." Past Psychological History: No Psychological Hx Reported, Depression Additional Psychological History / Comment(s): Pt resides alone. Pt uses a walker. She is receiving home care thru [facility]. Smoking Status: Never smoker Past Alcohol Use History: None Reported Past Drug Use History: None Reported - Past Family History Sister(s) Family Medical History: Myocardial Infarction ([place]) Brother(s) Family Medical History: Cancer Additional Family Medical History / Comment(s): Colon Cancer. Mother Family Medical History: Dementia Additional Family Medical History / Comment(s): Mother of dementia at the age of 89yrs. Father Family Medical History: Cancer Additional Family Medical History / Comment(s): Pt states her father was treated for a sinus infection but really had leukemia and of this at the age of 72 yrs. Medications and Allergies Home Medications Medication Instructions Recorded Confirmed Type Atorvastatin [Lipitor] 80 mg PO HS 06/30/18 11/05/21 History Apixaban [Eliquis] 5 mg PO BID #60 tab 07/04/18 11/05/21 Rx hydrALAZINE HCL [Apresoline] 100 mg PO TID 01/06/19 11/05/21 History Levothyroxine Sodium [Synthroid] 125 mcg PO DAILY #30 tab 01/08/19 11/05/21 Rx Insulin NPL/Insulin Lispro 20 unit SQ W/SUPPER 05/30/20 11/05/21 History [humaLOG MIX 75-25 VIAL] Insulin NPL/Insulin Lispro 30 unit SQ W/BRKFST 06/05/20 11/05/21 History [humaLOG MIX 75-25 VIAL] Ergocalciferol [Vitamin D2 50,000 unit PO TU 07/19/20 11/05/21 History (DRISDOL)] Pioglitazone [Actos] 15 mg PO DAILY 09/13/20 11/05/21 History carvediloL [Coreg*] 12.5 mg PO BID-W/MEALS #60 tab 05/11/21 11/05/21 Rx Potassium Chloride ER [K-Dur 20] 20 meq PO W/BRKFST 08/06/21 11/05/21 History polyethylene glycoL 3350 [Miralax] 17 gm PO DAILY packet 08/12/21 11/05/21 Rx Sertraline [Zoloft] 25 mg PO DAILY 08/30/21 11/05/21 History Meclizine [Antivert] 25 mg PO TID PRN #60 tab 09/05/21 11/05/21 Rx Albuterol Nebulized [Ventolin 2.5 mg INHALATION RT-QID PRN 09/24/21 11/05/21 History Nebulized] Artificial Tears-Hypromellose 1 drop BOTH EYES TID PRN 09/24/21 11/05/21 History [Artificial Tear Drops] Aspirin/Acetaminophen/Caffeine 2 tab PO DAILY PRN 09/24/21 11/05/21 History [Excedrin Extra Strength Caplet] Docusate [Colace] 100 mg PO DAILY 09/24/21 11/05/21 History Elderberry Fruit and Flower [Black 1 cap PO DAILY 09/24/21 11/05/21 History Elderberry 575 mg Cap] Isosorbide Mononitrate ER [Imdur] 60 mg PO DAILY 09/24/21 11/05/21 History Magnesium Oxide [Pierce] 500 mg PO DAILY 09/24/21 11/05/21 History Melatonin 5 mg PO HS 09/24/21 11/05/21 History Multivit-Min/Iron/Folic/Lutein 1 tab PO DAILY 09/24/21 11/05/21 History [Centrum Silver Women Tablet] amLODIPine [Norvasc] 5 mg PO HS 09/24/21 11/05/21 History Aspirin [Adult Low Dose Aspirin EC] 81 mg PO AC-BRKFST #30 tab 10/28/21 11/05/21 Rx Furosemide [Lasix] 40 mg PO BID@0900,1600 30 Days #60 10/28/21 11/05/21 Rx tab lisinopriL 20 mg PO DAILY #0 10/28/21 11/05/21 Rx Allergies Allergy/AdvReac Type Severity Reaction Status Date / Time azithromycin Allergy Rash/Hives Verified 11/05/21 19:36 [From Zithromax Z-Jeanmarie] methylprednisolone Allergy Rash/Hives Verified 11/05/21 19:36 [From Medrol] sulfamethoxazole Allergy Rash/Hives Verified 11/05/21 19:36 [From Bactrim] trimethoprim [From Bactrim] Allergy Rash/Hives Verified 11/05/21 19:36 hydrochlorothiazide AdvReac lost Verified 11/05/21 19:36 balance and fell Physical Exam Vitals: Vital Signs Temp Pulse Pulse Resp BP BP BP 11/06/21 09:07 84 11/06/21 08:55 84 11/06/21 07:49 94 18 11/06/21 07:47 98.2 F 94 18 175/84 11/06/21 04:00 97.4 F L 90 20 180/79 163/76 11/06/21 02:00 76 20 11/06/21 01:42 189/88 11/06/21 01:17 84 20 181/80 11/06/21 00:53 76 20 11/06/21 00:30 97.0 F L 76 20 207/95 11/05/21 22:51 68 11/05/21 22:40 64 11/05/21 21:49 77 18 191/84 11/05/21 20:51 81 20 175/84 11/05/21 19:55 92 20 189/78 11/05/21 18:42 101 H 20 186/92 11/05/21 18:34 98.0 F 101 H 24 188/79 Pulse Ox 11/06/21 09:07 11/06/21 08:55 11/06/21 07:49 11/06/21 07:47 98 11/06/21 04:00 97 11/06/21 02:00 11/06/21 01:42 11/06/21 01:17 99 11/06/21 00:53 11/06/21 00:30 98 11/05/21 22:51 11/05/21 22:40 11/05/21 21:49 100 11/05/21 20:51 98 11/05/21 19:55 97 11/05/21 18:42 97 11/05/21 18:34 100 Intake and Output 11/05/21 11/06/21 11/06/21 22:59 06:59 14:59 Output Total 400 Balance -400 Output: Urine 400 Other: Voiding Method Toilet Toilet # Voids 2 Weight 95.7 kg 92.7 kg The patient is calm and comfortable on 2 L of oxygen by nasal cannula. Not having any significant history distress Head exam was generally normal. There was no scleral icterus or corneal arcus. Mucous membranes were moist. HEENT: Head is atraumatic, normocephalic. Pupils equal, round. Sclerae is anicteric. NECK: Supple. No JVD. No lymphadenopathy. No thyromegaly. LUNGS: Decreased for some tooth, has mild crackles in bases specially the right side has mild respiratory expected wheezes. HEART: Regular rate and rhythm. 3/6 systolic murmur. S1, S2, positive S3. ABDOMEN: Soft. Bowel sounds are present. No masses. No tenderness. EXTREMITIES: 1+ bilateral pedal edema. No calf tenderness. Dorsalis pedis +2 bilaterally. NEUROLOGICAL: Patient is awake, alert and oriented x3. Cranial nerves 2 through 12 are grossly intact. Examination of the skin revealed no evidence of significant rashes, suspicious appearing nevi or other concerning lesions. Results - Laboratory Findings CBC and BMP: 11/05/21 19:11 11/05/21 19:11 PT/INR, D-dimer PT 10.6 sec (9.0-12.0) 11/05/21 19:11 INR 1.0 (<1.2) 11/05/21 19:11 Abnormal lab findings: Abnormal Labs 11/05/21 11/05/21 11/05/21 19:11 19:11 23:46 WBC 11.8 H RBC 3.51 L Hgb 10.0 L Hct 32.9 L MCHC 30.4 L Neutrophils # 8.4 H Monocytes # 1.1 H Chloride 110 H BUN 30 H Creatinine 1.38 H Glucose 235 H POC Glucose (mg/dL) Alkaline Phosphatase 146 H Troponin I 0.406 H* 11/06/21 11/06/21 11/06/21 02:39 05:49 05:55 WBC RBC Hgb Hct MCHC Neutrophils # Monocytes # Chloride BUN Creatinine Glucose POC Glucose (mg/dL) 356 H Alkaline Phosphatase Troponin I 0.320 H* 0.256 H* 11/06/21 10:23 WBC RBC Hgb Hct MCHC Neutrophils # Monocytes # Chloride BUN Creatinine Glucose POC Glucose (mg/dL) 313 H Alkaline Phosphatase Troponin I - Diagnostic Findings Chest x-ray: image reviewed Assessment and Plan Plan: 1 acute on chronic dyspnea and hypoxemic respiratory failure most likely on the basis of CHF as the patient presented to the ED with elevated proBNP level, incr eased interstitial pulmonary vessel markings bilaterally and the patient has responded nicely to diuretics. The patient is currently on IV Lasix. Currently on 2 L of oxygen by nasal cannula 2 acute non-ST segment elevation myocardial infarction 3 known history of coronary artery disease, last cardiac catheterization from 2014 showing nonobstructive/nonocclusive disease 4 chronic stage III kidney disease 5 diabetes mellitus type 2 with poorly controlled blood sugar 6 prior history of CVA 7 hypothyroidism 8 hypertension 9 hyperlipidemia 10 history of chronic paroxysmal atrial fibrillation 11 moderate severe aortic stenosis with moderate degree of mitral regurgitation and tricuspid regurgitation and moderate pulmonary hypertension/consistent with valvular heart disease. The patient will need further cardiac evaluation for possibility of an aortic valve replacement. She was supposed also to undergo a cardiac catheterization as part of her workup for her valvular disease. 12 Degenerative disc disease and chronic back pain 13 anemia of chronic disease Plan IV fluids to KVO Agree on IV Lasix Clinically improved and the patient is less short of breath Resume all medications Consult cardiology for evaluation of valvular heart disease according artery disease. The patient will need a cardiac catheterization to evaluate the coronary anatomy and rule out any significant or critical stenosis involving the coronary arteries. This may also need as part of her workup for consideration of any form of valve replacement later stages the patient is known to have moderate severe aortic valve stenosis. We'll repeat chest x-ray with next 2448 hrs. Blood sugar management is by medicine and the patient was started on NovoLog Mix 70/30 along with a sliding scale coverage We'll continue to follow
[2021-11-06 17:00] LABS: Glucose,Whole Blood 429 mg/dL (75-99)
--- NOTE | 2021-11-06 18:11 | P.CRDCN ---
History of Present Illness History of present illness: HPI Patient is a pleasant 80-year-old female with history of paroxysmal atrial fibrillation (on eliquis), hypertension, hyperlipidemia, COPD, diabetes mellitus type 2, hypothyroidism, prior CVA, chronic kidney disease, nonobstructive coronary artery disease by prior heart catheterization 2014, obstructive sleep apnea, chronic heart failure with preserved ejection fraction 55-60% and moder ate aortic stenosis, pneumonia, pleural effusion with right sided thoracentesis in 08/10/2021. Patient normally follows with Dr. Hernandez. Patient admits she has been having shortness breath and orthopnea similar to prior admissions. She had recent admission 10/24/2021 with orthopnea and was treated with diuretics. She is mainly concerned that she believes her aortic valve is causing much of her symptoms. She denies any chest pain or pressure. Troponins mildly elevated at 0.4, 0.3, 0.2, white blood cell count 11.8, hemoglobin 10.0, BUN 30, creatinine 1.38, proBNP 2200. Patient was started on IV Lasix. Troponins were somewhat similarly elevated previously however only 0.029, 0.08, 0.1. Previously creatinine was in the 1.4 up to 1.9 range and on last admission with diuretics creatinine had actually increased. Xray 11/05/2021 bilateral vascular congestion no significant pleural effusions. EKG shows sinus tachycardia with nonspecific minimal ST depressions in the lateral leads and inferior leads. Echo 10/24/2021 showed EF 55-60% and mention of severe aortic stenosis however peak gradient 49 and mean gradient 34. DIAGNOSTICS: -Recent 24-hour Holter monitor 05/2021 in the office revealed baseline sinus rhythm, minimum heart rate 48, maximum heart rate 96, no pauses greater than 2 seconds, no supraventricular events. Total 45 PVCs, no malignant arrhythmias present, no episodes of nonsustained ventricular tachycardia more than 4 beats. -Chest x-ray congestive heart failure with pleural effusions. Heart failure or fluid are new compared to old exam. -Echocardiogram 03/2021 EF 5560%, grade 2 diastolic dysfunction, moderate aortic stenosis the peak/mean gradient of 60 mmHg, 35 mmHg, moderate mitral regurgitation, mild tricuspid regurgitation, mild pulmonary hypertension with RVSP of 39 mmHg -Cardiac catheterization in 2014 revealed mild to moderate coronary artery di sease -Most recent stress test Lexiscan the office 07/2018 revealed no evidence of reversible ischemia REVIEW OF SYSTEMS At the time of my exam: CONSTITUTIONAL: Denies fever or chills. CARDIOVASCULAR: no chest pain,+ shortness of breath, +orthopnea, no PND or palpitations. RESPIRATORY: + cough. GASTROINTESTINAL: Denies abdominal pain,+ diarrhea, Denies constipation, nausea or vomiting. MUSCULOSKELETAL: Left neck pain with movement of her neck NEUROLOGIC: Denies numbness, tingling or weakness. ENDOCRINE: Denies fatigue, polydipsia or polyurina. GENITOURINARY: Denies burning, hematuria or urgency with micturation. HEMATOLOGIC: Denies history of anemia or bleeding. PHYSICAL EXAMINATION Vital signs reviewed. CONSTITUTIONAL: No apparent distress, obese HEENT: Head is normocephalic. Pupils are equal, round. Sclerae anicteric. Mucous membranes of the mouth are moist. No JVD. CHEST EXAMINATION: Lungs crackles in the bases to auscultation bilaterally HEART EXAMINATION: Regular rate and rhythm. S1 heard. +3/6 systolic murmur, no gallops or rub. ABDOMEN: Soft, nontender. Positive bowel sounds. EXTREMITIES: 2+ peripheral pulses, No bilateral lower extremity edema and no calf tenderness. NEUROLOGIC EXAMINATION: Patient is awake, alert and oriented x3. ASSESSMENT Acute on chronic heart failure with preserved ejection fraction Acute hypoxic respiratory failure Elevated troponin, may be type II mechanism related to heart failure however increased from prior admission Paroxysmal atrial fibrillation, currently normal sinus rhythm COPD Hypertension Hyperlipidemia Nonobstructive coronary artery disease by prior heart catheterization 2014 Obstructive sleep apnea Chronic kidney disease Diabetes mellitus type 2 Moderate to severe aortic stenosis Moderate mitral regurgitation History of pneumonia History of pleural effusion with right sided thoracentesis in 07/2021 PLAN Monitor response of diuretics however previous admission creatinine worsened with diuresis. Would recommend left and right heart catheterization with BURKE, likely before aggressive diuresis as previous admission creatinine worsened. Possibly 11/07 or 11/08. Monitor I/os Daily weights, renal function and electrolytes Continue with the remainder of medical regimen. Continue cardiac telemetry Further recommendations based on clinical course Past Medical History Past Medical History: Atrial Fibrillation, Cancer, Heart Failure, COPD, Diabetes Mellitus, Hyperlipidemia, Osteoarthritis (OA), Pneumonia, Sleep Apnea/CPAP/BIPAP, Thyroid Disorder Additional Past Medical History / Comment(s): Stage III Kidney Disease, hx Pneumonia with Sepsis, no CPAP use, Vitamin D Deficiency, chronic low back pain, frequent constipation, hx skin cancer, neuropathy History of Any Multi-Drug Resistant Organisms: None Reported Past Surgical History: Adenoidectomy, Back Surgery, Bariatric Surgery, Ana cystectomy, Heart Catheterization, Hysterectomy, Tonsillectomy Additional Past Surgical History / Comment(s): Cardiac caths , lap band placed/since removed, low back surgery, L carpal tunnel release X2, skin cancer removal, colonoscopies, bilateral cataract removals/lens implants. Past Anesthesia/Blood Transfusion Reactions: Previous Problems w/ Anesthesia Additional Past Anesthesia/Blood Transfusion Reaction / Comment(s): "Had too much anesthesia in 2007 for lap band removal, had to be bagged." Past Psychological History: No Psychological Hx Reported, Depression Additional Psychological History / Comment(s): Pt resides alone. Pt uses a walker. She is receiving home care thru [facility]. Smoking Status: Never smoker Past Alcohol Use History: None Reported Past Drug Use History: None Reported - Past Family History Sister(s) Family Medical History: Myocardial Infarction ([place]) Brother(s) Family Medical History: Cancer Additional Family Medical History / Comment(s): Colon Cancer. Mother Family Medical History: Dementia Additional Family Medical History / Comment(s): Mother of dementia at the age of 89yrs. Father Family Medical History: Cancer Additional Family Medical History / Comment(s): Pt states her father was treated for a sinus infection but really had leukemia and of this at the age of 72 yrs. Medications and Allergies Home Medications Medication Instructions Recorded Confirmed Type Atorvastatin [Lipitor] 80 mg PO HS 06/30/18 11/05/21 History Apixaban [Eliquis] 5 mg PO BID #60 tab 07/04/18 11/05/21 Rx hydrALAZINE HCL [Apresoline] 100 mg PO TID 01/06/19 11/05/21 History Levothyroxine Sodium [Synthroid] 125 mcg PO DAILY #30 tab 01/08/19 11/05/21 Rx Insulin NPL/Insulin Lispro 20 unit SQ W/SUPPER 05/30/20 11/05/21 History [humaLOG MIX 75-25 VIAL] Insulin NPL/Insulin Lispro 30 unit SQ W/BRKFST 06/05/20 11/05/21 History [humaLOG MIX 75-25 VIAL] Ergocalciferol [Vitamin D2 50,000 unit PO TU 07/19/20 11/05/21 History (DRISDOL)] Pioglitazone [Actos] 15 mg PO DAILY 09/13/20 11/05/21 History carvediloL [Coreg*] 12.5 mg PO BID-W/MEALS #60 tab 05/11/21 11/05/21 Rx Potassium Chloride ER [K-Dur 20] 20 meq PO W/BRKFST 08/06/21 11/05/21 History polyethylene glycoL 3350 [Miralax] 17 gm PO DAILY packet 08/12/21 11/05/21 Rx Sertraline [Zoloft] 25 mg PO DAILY 08/30/21 11/05/21 History Meclizine [Antivert] 25 mg PO TID PRN #60 tab 09/05/21 11/05/21 Rx Albuterol Nebulized [Ventolin 2.5 mg INHALATION RT-QID PRN 09/24/21 11/05/21 History Nebulized] Artificial Tears-Hypromellose 1 drop BOTH EYES TID PRN 09/24/21 11/05/21 History [Artificial Tear Drops] Aspirin/Acetaminophen/Caffeine 2 tab PO DAILY PRN 09/24/21 11/05/21 History [Excedrin Extra Strength Caplet] Docusate [Colace] 100 mg PO DAILY 09/24/21 11/05/21 History Elderberry Fruit and Flower [Black 1 cap PO DAILY 09/24/21 11/05/21 History Elderberry 575 mg Cap] Isosorbide Mononitrate ER [Imdur] 60 mg PO DAILY 09/24/21 11/05/21 History Magnesium Oxide [Pierce] 500 mg PO DAILY 09/24/21 11/05/21 History Melatonin 5 mg PO HS 09/24/21 11/05/21 History Multivit-Min/Iron/Folic/Lutein 1 tab PO DAILY 09/24/21 11/05/21 History [Centrum Silver Women Tablet] amLODIPine [Norvasc] 5 mg PO HS 09/24/21 11/05/21 History Aspirin [Adult Low Dose Aspirin EC] 81 mg PO AC-BRKFST #30 tab 10/28/21 11/05/21 Rx Furosemide [Lasix] 40 mg PO BID@0900,1600 30 Days #60 10/28/21 11/05/21 Rx tab lisinopriL 20 mg PO DAILY #0 10/28/21 11/05/21 Rx Allergies Allergy/AdvReac Type Severity Reaction Status Date / Time azithromycin Allergy Rash/Hives Verified 11/05/21 19:36 [From Zithromax Z-Jeanmarie] methylprednisolone Allergy Rash/Hives Verified 11/05/21 19:36 [From Medrol] sulfamethoxazole Allergy Rash/Hives Verified 11/05/21 19:36 [From Bactrim] trimethoprim [From Bactrim] Allergy Rash/Hives Verified 11/05/21 19:36 hydrochlorothiazide AdvReac lost Verified 11/05/21 19:36 balance and fell Physical Exam Vitals: Vital Signs Temp Pulse Pulse Resp BP BP BP 11/06/21 15:53 84 11/06/21 15:51 85 18 144/67 11/06/21 15:44 88 11/06/21 14:00 82 19 11/06/21 11:46 78 11/06/21 11:40 97.9 F 82 19 112/56 11/06/21 11:35 78 11/06/21 09:07 84 11/06/21 08:55 84 11/06/21 07:49 94 18 11/06/21 07:47 98.2 F 94 18 175/84 11/06/21 04:00 97.4 F L 90 20 180/79 163/76 11/06/21 02:00 76 20 11/06/21 01:42 189/88 11/06/21 01:17 84 20 181/80 11/06/21 00:53 76 20 11/06/21 00:30 97.0 F L 76 20 207/95 11/05/21 22:51 68 11/05/21 22:40 64 11/05/21 21:49 77 18 191/84 11/05/21 20:51 81 20 175/84 11/05/21 19:55 92 20 189/78 11/05/21 18:42 101 H 20 186/92 11/05/21 18:34 98.0 F 101 H 24 188/79 Pulse Ox 11/06/21 15:53 11/06/21 15:51 96 11/06/21 15:44 11/06/21 14:00 11/06/21 11:46 11/06/21 11:40 94 L 11/06/21 11:35 11/06/21 09:07 11/06/21 08:55 11/06/21 07:49 11/06/21 07:47 98 11/06/21 04:00 97 11/06/21 02:00 11/06/21 01:42 11/06/21 01:17 99 11/06/21 00:53 11/06/21 00:30 98 11/05/21 22:51 11/05/21 22:40 11/05/21 21:49 100 11/05/21 20:51 98 11/05/21 19:55 97 11/05/21 18:42 97 11/05/21 18:34 100 Intake and Output 11/06/21 11/06/21 11/06/21 06:59 14:59 22:59 Intake Total 600 Output Total 400 500 Balance -400 100 Intake: Oral 600 Output: Urine 400 500 Other: Voiding Method Toilet Toilet # Voids 2 Weight 92.7 kg Results 11/05/21 19:11 11/05/21 19:11 Cardiac Enzymes 11/05/21 11/05/21 11/06/21 Range/Units 19:11 23:46 02:39 AST 31 (14-36) U/L Troponin I 0.406 H* 0.320 H* (0.000-0.034) ng/mL 11/06/21 Range/Units 05:55 AST (14-36) U/L Troponin I 0.256 H* (0.000-0.034) ng/mL Coagulation 11/05/21 Range/Units 19:11 PT 10.6 (9.0-12.0) sec APTT 24.5 (22.0-30.0) sec CBC 11/05/21 Range/Units 19:11 WBC 11.8 H (3.8-10.6) k/uL RBC 3.51 L (3.80-5.40) m/uL Hgb 10.0 L (11.4-16.0) gm/dL Hct 32.9 L (34.0-46.0) % Plt Count 274 (150-450) k/uL Comprehensive Metabolic Panel 11/05/21 Range/Units 19:11 Sodium 139 (137-145) mmol/L Potassium 4.3 (3.5-5.1) mmol/L Chloride 110 H (98-107) mmol/L Carbon Dioxide 22 (22-30) mmol/L BUN 30 H (7-17) mg/dL Creatinine 1.38 H (0.52-1.04) mg/dL Glucose 235 H (74-99) mg/dL Calcium 8.4 (8.4-10.2) mg/dL AST 31 (14-36) U/L ALT 22 (4-34) U/L Alkaline Phosphatase 146 H (38-126) U/L Total Protein 6.7 (6.3-8.2) g/dL Albumin 3.6 (3.5-5.0) g/dL Current Medications Generic Name Dose Route Start Last Admin Trade Name Freq PRN Reason Stop Dose Admin Acetaminophen 650 mg 11/05/21 21:53 11/06/21 06:35 Acetaminophen Tab 325 Mg Tab PO 650 mg Q6HR PRN Administration Mild Pain or Fever > 100.5 Acetaminophen/Aspirin/Caffeine 2 each 11/06/21 09:00 [id number] 1 Each Tab PO DAILY PRN Migraine Headache Albuterol Sulfate 2.5 mg 11/06/21 05:37 11/06/21 15:43 Albuterol Nebulized 2.5 Mg/3 Ml INHALATION 2.5 mg RT-QID PRN Administration Shortness Of Breath Amlodipine Besylate 5 mg 11/06/21 21:00 Amlodipine 5 Mg Tab PO HS [facility] Apixaban 5 mg 11/06/21 09:00 11/06/21 07:54 Apixaban 5 Mg Tab PO 5 mg BID [facility] Administration Protocol Artificial Tears 1 drops 11/06/21 09:00 Artificial Tears-Hypromellose Drops 15 Ml Btl BOTH EYES TID PRN Dry Eye(s) Aspirin 81 mg 11/06/21 09:00 11/06/21 08:00 Aspirin 81 Mg PO 81 mg AC-BRKFST [facility] Administration Atorvastatin Calcium 80 mg 11/06/21 21:00 Atorvastatin 80 Mg Tab PO HS [facility] Carvedilol 12.5 mg 11/06/21 07:30 11/06/21 17:19 Carvedilol 12.5 Mg Tab PO 12.5 mg BID-W/MEALS [facility] Administration Docusate Sodium 100 mg 11/06/21 09:00 11/06/21 07:54 Docusate 100 Mg Cap PO 100 mg DAILY [facility] Administration Ergocalciferol 50,000 mcg 11/08/21 09:00 Ergocalciferol 1,250 Mcg (50,000 Iu) Capsule PO TU [facility] Furosemide 40 mg 11/06/21 09:00 11/06/21 07:55 Furosemide 10 Mg/Ml 4 Ml Vial IV 40 mg Q12HR [facility] Administration Hydralazine HCl 100 mg 11/06/21 09:00 11/06/21 15:49 Hydralazine Hcl 50 Mg Tab PO 100 mg TID [facility] Administration Sodium Chloride 1,000 mls @ 20 mls/hr 11/05/21 22:00 11/05/21 23:24 Saline 0.9% IV 20 mls/hr .Q24H [facility] Administration Insulin Aspart 0 unit 11/06/21 07:30 11/06/21 17:18 Insulin Aspart (Novolog) 100 Unit/Ml Vial SQ 8 unit ACHS [facility] Administration Protocol Insulin Aspart 20 unit 11/06/21 17:30 Insuln Asp Prt/Insulin Aspart 100 Unit/Ml 10 Ml Vial SQ W/SUPPER [facility] Insulin Aspart 30 unit 11/06/21 07:30 11/06/21 16:06 Insuln Asp Prt/Insulin Aspart 100 Unit/Ml 10 Ml Vial SQ 30 unit W/BRKFST [facility] Administration Isosorbide Mononitrate 60 mg 11/06/21 09:00 11/06/21 07:54 Isosorbide Mononitrate Er 60 Mg Tab.Er.24h PO 60 mg DAILY [facility] Administration Levothyroxine Sodium 125 mcg 11/06/21 06:30 11/06/21 06:35 Levothyroxine 125 Mcg Tab PO 125 mcg DAILY@0630 [facility] Administration Lisinopril 20 mg 11/06/21 09:00 11/06/21 07:54 Lisinopril 20 Mg Tab PO 20 mg DAILY [facility] Administration Magnesium Oxide 400 mg 11/06/21 09:00 11/06/21 07:54 Magnesium Oxide 400 Mg Tab PO 400 mg DAILY [facility] Administration Meclizine HCl 25 mg 11/06/21 09:00 Meclizine 25 Mg Tab PO TID PRN Vertigo Melatonin 5 mg 11/06/21 21:00 Melatonin 5 Mg Tablet PO HS [facility] Naloxone HCl 0.2 mg 11/05/21 21:53 Naloxone 0.4 Mg/Ml 1 Ml Vial IV Q2M PRN Opioid Reversal Pioglitazone HCl 15 mg 11/06/21 09:00 11/06/21 07:55 Pioglitazone 15 Mg Tab PO 15 mg DAILY [facility] Administration Polyethylene Glycol 17 gm 11/06/21 09:00 11/06/21 07:55 Polyethylene Glycol 3350 17 Gm Powd.Pack PO 17 gm DAILY [facility] Administration Potassium Chloride 20 meq 11/06/21 09:00 11/06/21 08:00 Potassium Chloride Er 20 Meq Tab.Er PO 20 meq W/BRKFST [facility] Administration Sertraline HCl 25 mg 11/06/21 09:00 11/06/21 07:54 Sertraline 25 Mg Tab PO 25 mg DAILY [facility] Administration Intake and Output 11/06/21 11/06/21 11/06/21 06:59 14:59 22:59 Intake Total 600 Output Total 400 500 Balance -400 100 Intake: Oral 600 Output: Urine 400 500 Other: Voiding Method Toilet Toilet # Voids 2 Weight 92.7 kg 11/05/21 19:11 11/05/21 19:11
[2021-11-06 19:39] LABS: Glucose,Whole Blood 339 mg/dL (75-99)
[2021-11-06] MEDS: ATORVASTATIN 80 MG TAB PO SCH (19:52)
[2021-11-06] MEDS: MELATONIN 5 MG TABLET PO SCH (19:52)
[2021-11-06] MEDS: SODIUM CHLORIDE 0.9% 1,000 ML IV SCH (19:53)
[2021-11-06] MEDS ORDERED: amLODIPine 5 MG TAB PO SCH (21:00)
[2021-11-07 00:08] LABS: Glucose,Whole Blood 170 mg/dL (75-99)
[2021-11-07 03:10] LABS: Glucose,Whole Blood 124 mg/dL (75-99)
[2021-11-07 05:58] LABS: Glucose,Whole Blood 209 mg/dL (75-99)
[2021-11-07] MEDS: carvediloL 12.5 MG TAB PO SCH ×2 (06:05→17:39)
[2021-11-07] MEDS: LEVOTHYROXINE 125 MCG TAB PO SCH (07:02)
[2021-11-07] MEDS: POTASSIUM CHLORIDE ER 20 MEQ TAB.ER PO SCH (07:04)
[2021-11-07] MEDS: ALBUTEROL NEBULIZED 2.5 MG/3 ML INHALATION PRN (08:23)
[2021-11-07] MEDS ORDERED: ATORVASTATIN 80 MG TAB PO STA (08:42)
[2021-11-07] MEDS ORDERED: ALPRAZolam 0.25 MG TAB PO PRN (08:42)
[2021-11-07] MEDS ORDERED: ALPRAZolam 0.5 MG TAB PO PRN (08:42)
[2021-11-07] MEDS ORDERED: NITROGLYCERIN SL TABS 0.4 MG TAB SUBLINGUAL PRN (08:42)
[2021-11-07] MEDS ORDERED: ASPIRIN 325 MG TAB PO STA (08:42)
--- NOTE | 2021-11-07 08:48 | P.PN ---
Subjective Progress Note Date: 11/07/21 PROGRESS NOTE The patient is an 81-year-old female with a known history of aortic stenosis, moderate severe in the past, chronic kidney disease, mild CAD in the past, hypertension, hyperlipidemia and paroxysmal atrial fibrillation who had recent admission with CHF and exacerbation of COPD. She was readmitted with recurrent dyspnea. She denies any chest discomfort, dizziness or palpitations. She has n o peripheral edema. She continues to be in sinus mechanism. She has been on IV diuretics. She denies any nausea or vomiting. PHYSICAL EXAMINATION: Blood pressure 94/54 heart rate 60 LUNGS: [Clear to auscultation] HEART: [Regular rate and rhythm, S1, S2. No S3. Systolic ejection murmur, 3/6 at the base ABDOMEN: [Soft, nontender, no organomegaly] EXTREMETIES: [No edema] LAB: Troponin peak 0.406, BUN and creatinine of 30, 1.38 on November 05 IMPRESSION: 1. Recurrent episodes of CHF with preserved systolic function could be secondary to aortic valve disease 2. Moderate to severe aortic stenosis in the past 3. Chronic kidney disease 4. Mild CAD by prior cardiac catheterization PLAN: Proceed with transesophageal echocardiogram today and cardiac catheterization tomorrow to evaluate the aortic valve and guide the treatment. The risks and the complications were discussed with the patient. She is in full understanding and agreement. Objective - Vital Signs Vital signs: Vital Signs Temp 98.2 F 11/07/21 06:12 Pulse 74 11/07/21 08:39 Resp 16 11/07/21 06:12 BP 94/54 11/07/21 06:12 Pulse Ox 100 11/07/21 08:25 Intake & Output 11/06/21 11/07/21 11/07/21 18:59 06:59 18:59 Intake Total 1400 Output Total 500 1200 Balance 900 -1200 Weight 94.2 kg Intake: Oral 1400 Output: Urine 500 1200 Other: Voiding Method Toilet Toilet # Voids 3 - Labs CBC & Chem 7: 11/05/21 19:11 11/05/21 19:11 Labs: Abnormal Lab Results - Last 24 Hours (Table) 11/06/21 11/06/21 11/06/21 Range/Units 10:23 11:35 14:41 POC Glucose (mg/dL) 313 H 394 H 438 H (75-99) mg/dL 11/06/21 11/06/21 11/07/21 Range/Units 16:44 19:36 00:06 POC Glucose (mg/dL) 429 H 339 H 170 H (75-99) mg/dL 11/07/21 11/07/21 Range/Units 03:07 05:57 POC Glucose (mg/dL) 124 H 209 H (75-99) mg/dL
[2021-11-07] MEDS: INSULIN ASPART (NovoLOG) 100 UNIT/ML VIAL SQ SCH ×4 (09:20→21:12)
[2021-11-07] MEDS: ASPIRIN 81 MG PO SCH (09:21)
[2021-11-07] MEDS: ACETAMINOPHEN TAB 325 MG TAB PO PRN ×2 (09:27→21:21)
[2021-11-07] MEDS ORDERED: fentaNYL (PF) 50 MCG/ML 2 ML AMP ONE (10:48)
[2021-11-07] MEDS ORDERED: BENZOCAINE SPRAY 1 CAN TOPICAL ONE (11:10)
--- NOTE | 2021-11-07 11:13 | P.PN ---
Subjective Progress Note Date: 11/07/21 Hospital course: Patient is a very pleasant 81-year-old female with a past medical history of CAD, hypertension, hyperlipidemia, atrial fibrillation on anticoagulation with Eliquis, moderate to severe aortic stenosis, chronic diastolic heart failure with previously known EF between 55 and 60%, type 2 insulin-dependent diabetes mellitus, prior CVA, chronic kidney disease stage III, COPD, obstructive sleep apnea, and degenerative disc disease. Patient presented to the hospital on 11/06/21 with a chief complaint of shortness of breath and dizziness after a fam stephen trip to the [facility]. In the emergency department a chest x-ray was completed revealing basilar airspace opacities right greater than left. EKG completed showing sinus tachycardia at [address] depression in inferior lateral leads I, II, aVL, V5, and V6 which is a new finding when compared to EKG completed 10/24/21. Troponins elevated with initial troponin 0.406, 0.320, and 0.256. ProBNP 2240. CBC showing mild leukocytosis with WBC count of 11.8 and normocytic normochromic anemia with hemoglobin of 10.0. BMP consistent with stage III chronic kidney disease with baseline creatinine levels. Patient was admitted under hospitalist services for CHF exacerbation and NSTEMI with consult ation to cardiology. Physical exam: Patient was seen and fully evaluated at bedside this morning. Patient was resting comfortably. She reports dizziness and shortness of breath has subsided, but states continued shortness of breath with exertion. She denies feeling any headache, lightheadedness, dizziness, chest pain, palpitations, nausea, or experiencing any numbness/tingling/weakness in her extremities. Patient has been receiving Lasix 40 mg IVP twice daily and has had a total of 1700 mL of urinary output over the past 24 hours and a weight loss of 1.5 kg since admission. Cardiology has decreased Lasix dose to 40 mg IVP once daily and plans to take patient for BURKE later today and cardiac catheterization tomorrow. Cardiology holding Eliquis pending cardiac cath. Vital signs reviewed and stable. General: Nontoxic, no distress and appears stated age. Derm: Skin warm and dry, normal coloration for ethnicity. Head: Atraumatic, normocephalic and symmetric. Eyes: EOMs intact, no lid lag, and anicteric sclera Mouth: no lip lesions, mucus membranes moist Cardiovascular: regular rate and rhythm with normal S1S2, systolic murmur, po sitive posterior tibial pulses bilaterally, and cap refill < 2 seconds. Lungs: Respirations even, regular, and unlabored on room air. Lungs CTA bilaterally, no rhonchi, no rales, no wheezing, and no accessory muscle usage. Abdominal: soft, nontender to palpation, no guarding, no appreciable organ omegaly Ext: ROM intact. No gross muscle atrophy, no edema, no contractures Neuro: Speech clear, face symmetrical and CN II-XII grossly intact with no noted focal neuro deficits Psych: Alert and oriented to person, place, time, and situation. Appropriate and pleasant affect. Assessment and Plan of Care: Acute diastolic heart failure exacerbation NSTEMI Paroxysmal atrial fibrillation -Cardiology following, plans to take patient for BURKE today and cardiac cath tomorrow -Continue Telemetry monitoring -Troponins elevated at 0.406, 0.320, 0.256. -ProBNP 2240 -Daily weights -Close monitoring of I's and O's -Cardiac diet, NPO at midnight for cardiac cath -Lasix 40 mg IVP daily -Continue daily cardiac medication regimen consisting of: Aspirin, atorvastatin, carvedilol, isosorbide mononitrate, lisinopril, and hydralazine -Continued close monitoring of electrolytes while diuresing. COPD, lifelong smoking history Obstructive sleep apnea -Encourage incentive spirometry 10-15 times hourly while awake. -Provide oxygenation as needed to maintain SpO2 equal to or greater than 92%. -DuoNeb nebs as needed for shortness of breath and/or wheezing Stage III chronic kidney disease -Creatinine stable at 1.38, at baseline levels. Hypertension -Monitor vital signs and continue daily medication regimen with lisinopril, isosorbide mononitrate, carvedilol and hydralazine Type 2 insulin-dependent diabetes mellitus, glycemic protocol with NovoLog sliding scale and continue scheduled 70/30 insulin and aspart with meals. Degenerative disc disease resulting in chronic back pain, follows with pain management with Dr. Amaya. Provide symptomatic care and pain management. Chronic anemia resulting from chronic disease, continue daily medication regimen with ferrous sulfate 325 mg daily. CODE STATUS: Full code DVT prophylaxis: Joe Discussed with: Patient and RN Anticipated discharge date: Clinical course to determine Anticipated discharge place: home A total of 40 minutes was spent on the care of this complex patient more than 50% of the time was spent in counseling and care coordination. Rodolfo Bower SAILOR rendered care for this patient independently, reviewed the findings and plan as documented in the note above. I did not physically speak with or examine the patient on this date. Leukocytosis - likely demargination - recheck CXR in AM - Check Procal - UA negative - check BC if spikes fevers Objective - Vital Signs Vital signs: Vital Signs Temp 98.2 F 11/07/21 06:12 Pulse 60 11/07/21 06:12 Resp 16 11/07/21 06:12 BP 94/54 11/07/21 06:12 Pulse Ox 99 11/07/21 06:12 Intake & Output 11/06/21 11/07/21 11/07/21 18:59 06:59 18:59 Intake Total 1400 Output Total 500 1200 Balance 900 -1200 Weight 94.2 kg Intake: Oral 1400 Output: Urine 500 1200 Other: Voiding Method Toilet Toilet # Voids 3 - Labs CBC & Chem 7: 11/07/21 10:57 11/07/21 10:57 Labs: Abnormal Lab Results - Last 24 Hours (Table) 11/06/21 11/06/21 11/06/21 Range/Units 10:23 11:35 14:41 POC Glucose (mg/dL) 313 H 394 H 438 H (75-99) mg/dL 11/06/21 11/06/21 11/07/21 Range/Units 16:44 19:36 00:06 POC Glucose (mg/dL) 429 H 339 H 170 H (75-99) mg/dL 11/07/21 11/07/21 Range/Units 03:07 05:57 POC Glucose (mg/dL) 124 H 209 H (75-99) mg/dL
[2021-11-07] MEDS: BENZOCAINE SPRAY 1 CAN TOPICAL ONE ×3 (11:15→11:42)
[2021-11-07] MEDS ORDERED: IV FLUID CONTINUATION 500 ML IV ONE (11:17)
[2021-11-07 11:25] LABS: HGB 9.3 gm/dL (11.4-16.0); Hypochromasia Marked; MCH 27.8 pg (25.0-35.0); MCV 92.7 fL (80.0-100.0); Mean Platelet Volume 8.6; Platelet Count 304 k/uL (150-450); RBC 3.34 m/uL (3.80-5.40); RDW 14.7 % (11.5-15.5); WBC 21.6 k/uL (3.8-10.6)
[2021-11-07] MEDS ORDERED: MIDAZOLAM 2 MG/2 ML VIAL IV ONE (11:25)
[2021-11-07] MEDS ORDERED: fentaNYL (PF) 50 MCG/ML 2 ML AMP IV ONE ×2 (11:25→11:42)
[2021-11-07 11:39] LABS: Albumin 3.4 g/dL (3.5-5.0); Calcium 8.4 mg/dL (8.4-10.2); Magnesium 2.1 mg/dL (1.6-2.3); Potassium 4.8 mmol/L (3.5-5.1); Total Bilirubin 0.6 mg/dL (0.2-1.3); Total Protein 6.2 g/dL (6.3-8.2)
[2021-11-07] MEDS: MIDAZOLAM 2 MG/2 ML VIAL IV ONE ×2 (11:42→11:45)
--- NOTE | 2021-11-07 12:10 | P.PCN ---
Date of Procedure: 11/07/21 Description of Procedure: Indication: [Evaluation of aortic valve stenosis] Procedure Description: After explaining the procedure to the patient, it's risk and complications, blood pressure, heart rate and O2 saturation were monitored. The throat was sprayed with Cetacaine. Patient received 2 mg intravenous Versed, 50 mcg intravenous fentanyl. The probe was introduced into the esophagus without difficulty. Images were obtained. Following that, the probe was removed. There was no immediate complication. Findings: Left atrial size is mildly dilated, left ventricle size and systolic function are normal. The mitral valve revealed moderate mitral anulus calcification. The aortic valve is a tricuspid valve severe fibrocalcific changes. The planimetry showed an aortic valve area of 0.7 to 0.9 cm. The tricuspid valve appears to be normal. Descending thoracic aorta revealed mild atherosclerotic changes. No pericardial effusion was noted. Contrast bubble study showed no shunting across the aortic valve. Doppler: Pulse wave and color Doppler were obtained and revealed moderate mitral and tr icuspid regurgitation. The peak gradient across the aortic valve was 46 mmHg with a mean of 29 mm mercury. The estimated right ventricle systolic pressure was 65 mmHg. No shunting across the intra-atrial septum was noted. Conclusion: 1. Normal left ventricle size and systolic function 2. Severely calcified aortic valve with moderate aortic stenosis by mean gradient and severe by planimetry 3. Moderate mitral and tricuspid regurgitation 4. moderate to severe pulmonary hypertension 5. No shunting across the intra-atrial septum
[2021-11-07] MEDS: INSULN ASP PRT/INSULIN ASPART 100 UNIT/ML 10 ML VIAL SQ SCH ×2 (13:15→17:39)
[2021-11-07] MEDS: MAGNESIUM OXIDE 400 MG TAB PO SCH (13:15)
[2021-11-07] MEDS: ISOSORBIDE MONONITRATE ER 60 MG TAB.ER.24H PO SCH (13:15)
[2021-11-07] MEDS: DOCUSATE 100 MG CAP PO SCH (13:15)
[2021-11-07] MEDS: polyethylene glycoL 3350 17 GM POWD.PACK PO SCH (13:16)
[2021-11-07] MEDS: lisinopriL 10 MG TAB PO SCH (13:16)
[2021-11-07] MEDS: PIOGLITAZONE 15 MG TAB PO SCH (13:16)
[2021-11-07] MEDS: SERTRALINE 25 MG TAB PO SCH (13:16)
[2021-11-07] MEDS: SODIUM CHLORIDE 0.9% 1,000 ML IV SCH ×2 (13:16→19:41)
[2021-11-07 13:28] LABS: Appearance,Urine Cloudy (Clear); Bacteria,Urine Many /hpf; Bilirubin,Urine Negative (Negative); Blood,Urine Negative (Negative); Color,Urine Yellow; Glucose,Urine (UA) Negative (Negative); Ketones,Urine Negative (Negative); Leukocyte Esterase,Urine Large (Negative); Mucus,Urine Rare /hpf; Nitrite,Urine Positive (Negative); Protein,Urine 1+ (Negative); RBC,Urine 3 /hpf (0-5); Specific Gravity,Urine 1.018 (1.001-1.035); Squamous Epithelial Cell,Urine 3 /hpf (0-4); Urobilinogen,Urine <2.0 mg/dL (<2.0); WBC,Urine 32 /hpf (0-5)
[2021-11-07] MEDS: FUROSEMIDE 10 MG/ML 4 ML VIAL IV SCH (15:07)
[2021-11-07] MEDS: hydrALAZINE HCL 50 MG TAB PO SCH ×3 (15:07→19:41)
--- NOTE | 2021-11-07 16:25 | P.PN ---
Subjective Progress Note Date: 11/07/21 Principal diagnosis: Acute on chronic hypoxic respiratory failure secondary to acute on chronic and just of heart failure with preserved LV function. This is an 81-year-old female patient and I was asked even with this patient because of shortness of breath and possibility of a pneumonia. Note that the patient has multiple medical problems and comorbidities. 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 Amaya for pain management. Asked hospitalization was in March 2021 for acute on chronic diastolic heart failure. At that time echocardiogram revealed EF of 55-60% with severe concentric left ventricular hypertrophy, moderate aortic stenosis, moderate mitral regurgitation, mild tricuspid regurgitation, mild pulmonary hypertension. The patient was with [place] members at a [place]. She was doing well. After arriving home, she became shortness of breath and the shortness of breath progressed over 3 hours and for that reason, she end up coming into the hospital. No palpitation. No angina. No loss of consciousness. No syncope. No pleurisy. No hemoptysis. She was feeling slightly nauseated. Denied having any angina. No cough or sputum production. No fevers. EMS was called to her house and the patient was brought to the ED. In the ED, the patient was placed on 2 L of O2 nasal cannula and later on to 3 L to make a saturation of around 97%. The patient had a chest x- ray that showed increased interstitial markings bilaterally especially lower lobes and possibly some small effusions and currently B-lines. The patient had a white second of 11.8 with hemoglobin of 10, normal correlation profile, normal metabolic profile, proBNP level was 2240, chest x-ray was noted, the patient was given sublingual nitroglycerin and this was given for some chest discomfort and elevated blood pressure. Blood pressure improved. She was given also the one that and she was also given Decadron. EKG showed no acute ischemic changes. Accordingly, the patient was admitted to the hospital for further care. Note that she had a quite significant elevated blood pressure at time of admission. She does have chronic kidney disease with a creatinine of 1.38 consistent with stage III kidney disease along with a mean of 30 and a sodium level of 139. White cell count is at 11.8. For now, the patient is on IV Lasix 40 mg every 12 hours. Already feeling better. Her weight is not and the patient is in a negative fluid balance. The patient had abnormal troponins and the patient had troponin of 0.2 and 0.3 respectively consistent with an acute non-ST segment elevation myocardial infarction. The EKG showing incomplete RBBB, LVH, sinus tachycardia. No acute ST segment elevation or depression. Reevaluated today on 11/07/21, patient is feeling better, breathing easier, r esponding well to diuretics. Patient underwent transesophageal echocardiography, patient was found to have moderate to severe aortic stenosis, normal systolic function, severely calcified aortic valve and moderate mitral and tricuspid regurgitation with moderate to severe pulmonary hypertension. No evidence of shunt was noted. Patient is now scheduled to have cardiac catheterization tomorrow. Pulmonary-reich she is feeling better breathing easier, and further cardiac workup is pending. Patient is on 2 L nasal cannula with O2 saturation in the 100%. Blood pressure is 94/54. WBC count is 21.6 hemoglobin is 9.3 electrolytes are normal renal profile is abnormal with BUN of 51 creatinine 1.86, up from 1.38 on admission. Urinalysis is suggestive of UTI. Objective - Vital Signs Vital signs: Vital Signs Temp 98.0 F 11/07/21 08:41 Pulse 86 11/07/21 14:00 Resp 16 11/07/21 14:00 BP 94/54 11/07/21 13:18 Pulse Ox 100 11/07/21 13:18 Intake & Output 11/06/21 11/07/21 11/07/21 18:59 06:59 18:59 Intake Total 1400 290 Output Total 500 1200 Balance 900 -1200 290 Weight 94.2 kg Intake: IV 250 Intake, IV Titration 40 Amount Sodium Chloride 0.9% 1, 40 000 ml @ 20 mls/hr IV . Q24H [facility] Rx#:[id number] Oral 1400 Output: Urine 500 1200 Other: Voiding Method Toilet Toilet Toilet # Voids 3 - Exam Physical Exam: Revealed 81-year-old female in no distress, on 2 L nasal cannula Head: Atraumatic, normocephalic. HEENT:[Neck is supple.] [No neck masses.] [No thyromegaly.] [No JVD.] Chest: [Symmetrical expansion crackles at the bases Cardiac Exam: [Normal S1 and S2, no S3 gallop, 3/6 systolic murmur best heard over the aortic area. Abdomen: [Soft, nontender, no megaly, no rebound, no guarding, normal bowel sounds.] Extremities: [No clubbing, trace of bipedal edema, no cyanosis.] Neurological Exam: [No focal neurologic deficit.] Psychiatric: Normal mood affect and normal status examination. Skin: No rashes. - Labs CBC & Chem 7: 11/07/21 10:57 11/07/21 10:57 Labs: Abnormal Lab Results - Last 24 Hours (Table) 11/06/21 11/06/21 11/07/21 Range/Units 16:44 19:36 00:06 WBC (3.8-10.6) k/uL RBC (3.80-5.40) m/uL Hgb (11.4-16.0) gm/dL Hct (34.0-46.0) % MCHC (31.0-37.0) g/dL Sodium (137-145) mmol/L BUN (7-17) mg/dL Creatinine (0.52-1.04) mg/dL Glucose (74-99) mg/dL POC Glucose (mg/dL) 429 H 339 H 170 H (75-99) mg/dL Total Protein (6.3-8.2) g/dL Albumin (3.5-5.0) g/dL Urine Appearance (Clear) Urine Protein (Negative) Urine Nitrite (Negative) Ur Leukocyte Esterase (Negative) Urine WBC (0-5) /hpf Urine WBC Clumps (None) /hpf Urine Bacteria (None) /hpf Urine Mucus (None) /hpf 11/07/21 11/07/21 11/07/21 Range/Units 03:07 05:57 10:57 WBC 21.6 H (3.8-10.6) k/uL RBC 3.34 L (3.80-5.40) m/uL Hgb 9.3 L (11.4-16.0) gm/dL Hct 31.0 L (34.0-46.0) % MCHC 30.0 L (31.0-37.0) g/dL Sodium (137-145) mmol/L BUN (7-17) mg/dL Creatinine (0.52-1.04) mg/dL Glucose (74-99) mg/dL POC Glucose (mg/dL) 124 H 209 H (75-99) mg/dL Total Protein (6.3-8.2) g/dL Albumin (3.5-5.0) g/dL Urine Appearance (Clear) Urine Protein (Negative) Urine Nitrite (Negative) Ur Leukocyte Esterase (Negative) Urine WBC (0-5) /hpf Urine WBC Clumps (None) /hpf Urine Bacteria (None) /hpf Urine Mucus (None) /hpf 11/07/21 11/07/21 Range/Units 10:57 13:00 WBC (3.8-10.6) k/uL RBC (3.80-5.40) m/uL Hgb (11.4-16.0) gm/dL Hct (34.0-46.0) % MCHC (31.0-37.0) g/dL Sodium 136 L (137-145) mmol/L BUN 51 H (7-17) mg/dL Creatinine 1.86 H (0.52-1.04) mg/dL Glucose 214 H (74-99) mg/dL POC Glucose (mg/dL) (75-99) mg/dL Total Protein 6.2 L (6.3-8.2) g/dL Albumin 3.4 L (3.5-5.0) g/dL Urine Appearance Cloudy H (Clear) Urine Protein 1+ H (Negative) Urine Nitrite Positive H (Negative) Ur Leukocyte Esterase Large H (Negative) Urine WBC 32 H (0-5) /hpf Urine WBC Clumps Occasional H (None) /hpf Urine Bacteria Many H (None) /hpf Urine Mucus Rare H (None) /hpf Assessment and Plan Assessment: Impression Acute on chronic hypoxic respiratory failure secondary to acute congestive heart failure secondary to severe aortic stenosis and possibly mitral valve disease. Acute non-ST elevation myocardial infarction Chronic kidney disease stage III acute on chronic kidney injury Type 2 diabetes Previous history of CVA Hypothyroidism Benign essential hypertension Dyslipidemia Paroxysmal atrial fibrillation Moderate severe aortic stenosis and pulmonary hypertension Anemia of chronic disease Recommendation: Continue IV fluid at KVO Continue diuretics, may have to cut down the dose because of worsening renal status Cardiology is considering cardiac catheterization tomorrow however renal functioning may be a problem. Depending on the findings on the cardiac catheterization, patient may have to be evaluated further by cardiothoracic surgery Will continue to follow. Time with Patient: Less than 30
[2021-11-07 17:20] LABS: Glucose,Whole Blood 277 mg/dL (75-99)
[2021-11-07] MEDS: MELATONIN 5 MG TABLET PO SCH (19:48)
[2021-11-07] MEDS: ATORVASTATIN 80 MG TAB PO SCH (19:48)
[2021-11-07 20:04] LABS: Glucose,Whole Blood 229 mg/dL (75-99)
[2021-11-08 00:20] LABS: Glucose,Whole Blood 63 mg/dL (75-99)
[2021-11-08 00:37] LABS: Glucose,Whole Blood 79 mg/dL (75-99)
[2021-11-08 01:13] LABS: Glucose,Whole Blood 103 mg/dL (75-99)
[2021-11-08 06:03] LABS: Glucose,Whole Blood 123 mg/dL (75-99)
[2021-11-08] MEDS: INSULIN ASPART (NovoLOG) 100 UNIT/ML VIAL SQ SCH ×4 (06:04→20:27)
[2021-11-08] MEDS: hydrALAZINE HCL 50 MG TAB PO SCH (06:30)
[2021-11-08] MEDS: carvediloL 12.5 MG TAB PO SCH ×2 (06:30→17:17)
[2021-11-08] MEDS: polyethylene glycoL 3350 17 GM POWD.PACK PO SCH (06:31)
[2021-11-08] MEDS: DOCUSATE 100 MG CAP PO SCH (06:31)
[2021-11-08] MEDS: lisinopriL 10 MG TAB PO SCH (06:36)
[2021-11-08] MEDS: SERTRALINE 25 MG TAB PO SCH (06:39)
[2021-11-08] MEDS: MAGNESIUM OXIDE 400 MG TAB PO SCH (06:39)
[2021-11-08] MEDS: LEVOTHYROXINE 125 MCG TAB PO SCH (06:39)
[2021-11-08] MEDS: POTASSIUM CHLORIDE ER 20 MEQ TAB.ER PO SCH (06:39)
[2021-11-08] MEDS: ASPIRIN 81 MG PO SCH (06:39)
[2021-11-08] MEDS: ISOSORBIDE MONONITRATE ER 60 MG TAB.ER.24H PO SCH (06:40)
[2021-11-08] MEDS ORDERED: HEPARIN SODIUM,PORCINE 2,500 UNIT in SODIUM CHLORIDE 0.9% 250 ML IRRIGATION PRN (07:00)
[2021-11-08] MEDS ORDERED: HEPARIN SODIUM,PORCINE 10,000 UNIT in SODIUM CHLORIDE 0.9% 1,000 ML IRRIGATION PRN (07:00)
[2021-11-08 07:43] LABS: HGB 8.2 gm/dL (11.4-16.0); Hypochromasia Marked; MCH 27.5 pg (25.0-35.0); MCHC 29.3 g/dL (31.0-37.0); MCV 93.8 fL (80.0-100.0); Mean Platelet Volume 8.6; Platelet Count 243 k/uL (150-450); RBC 2.98 m/uL (3.80-5.40); RDW 14.4 % (11.5-15.5); WBC 11.7 k/uL (3.8-10.6)
[2021-11-08 08:12] LABS: Calcium 7.9 mg/dL (8.4-10.2); Magnesium 2.5 mg/dL (1.6-2.3); Potassium 5.3 mmol/L (3.5-5.1); Total Bilirubin 0.4 mg/dL (0.2-1.3); Total Protein 5.7 g/dL (6.3-8.2)
[2021-11-08] MEDS: INSULN ASP PRT/INSULIN ASPART 100 UNIT/ML 10 ML VIAL SQ SCH ×2 (08:34→17:17)
[2021-11-08] MEDS ORDERED: ALPRAZolam 0.25 MG TAB PO PRN (08:52)
[2021-11-08] MEDS ORDERED: ASPIRIN 325 MG TAB PO STA (08:52)
[2021-11-08] MEDS ORDERED: ALPRAZolam 0.5 MG TAB PO PRN (08:52)
[2021-11-08] MEDS ORDERED: NITROGLYCERIN SL TABS 0.4 MG TAB SUBLINGUAL PRN (08:52)
[2021-11-08] MEDS ORDERED: ATORVASTATIN 80 MG TAB PO STA (08:52)
--- NOTE | 2021-11-08 08:58 | P.PN ---
Subjective Progress Note Date: 11/08/21 PROGRESS NOTE The patient is an 81-year-old female with a history of mild coronary disease, COPD, aortic stenosis who is readmitted to the hospital with symptoms of progressive dyspnea on exertion, mild troponin elevation. She underwent a BURKE yesterday that showed moderate to severe aortic stenosis. She was scheduled to undergo right and left heart catheterization today. She's feeling well this morning, laying supine without any chest discomfort or dyspnea. She denies any dizziness or palpitations. She continues to be on Lasix 40 mg daily, aspirin, Lipitor 80 mg daily, Coreg 12-1/2 mg twice a day, hydralazine 50 mg 3 times a day, isosorbide mononitrate 60 mg daily, lisinopril 10 mg daily, levothyroxin. PHYSICAL EXAMINATION: Blood pressure 126/60 heart rate 70 LUNGS: [Clear to auscultation] HEART: [Regular rate and rhythm, S1, S2. No S3. Systolic ejection murmur 3/6, mid peaking] ABDOMEN: [Soft, nontender, no organomegaly] EXTREMETIES: [No edema] LAB: Potassium 5.3, hemoglobin 8.9, BUN and creatinine 60 and 2.26 IMPRESSION: 1. Worsening dyspnea with moderate to severe aortic stenosis, further evaluation is needed to evaluate for the need for aortic valve replacement 2. Acute on chronic chronic kidney disease 3. History of hypertension 4. Hyperlipidemia PLAN: 1. DC Lasix 2. Decrease hydralazine to 25 mg 3 times a day 3. Cancel cardiac catheterization for today pending renal function tomorrow 4. Follow hemoglobin 5. Depending on her progress further recommendations will be made. Objective - Vital Signs Vital signs: Vital Signs Temp 97.7 F 11/08/21 06:45 Pulse 70 11/08/21 06:45 Resp 18 11/08/21 06:45 BP 126/66 11/08/21 06:45 Pulse Ox 94 L 11/08/21 06:45 Intake & Output 11/07/21 11/08/21 11/08/21 18:59 06:59 18:59 Intake Total 290 Output Total 500 Balance 290 -500 Weight 97.5 kg Intake: IV 250 Intake, IV Titration 40 Amount Sodium Chloride 0.9% 1, 40 000 ml @ 20 mls/hr IV . Q24H [facility] Rx#:[id number] Output: Urine 500 Other: Voiding Method Toilet Bedside Commode # Voids 1 1 - Labs CBC & Chem 7: 11/08/21 07:17 11/08/21 07:17 Labs: Abnormal Lab Results - Last 24 Hours (Table) 11/07/21 11/07/21 11/07/21 Range/Units 10:57 10:57 13:00 WBC 21.6 H (3.8-10.6) k/uL RBC 3.34 L (3.80-5.40) m/uL Hgb 9.3 L (11.4-16.0) gm/dL Hct 31.0 L (34.0-46.0) % MCHC 30.0 L (31.0-37.0) g/dL Sodium 136 L (137-145) mmol/L Potassium (3.5-5.1) mmol/L BUN 51 H (7-17) mg/dL Creatinine 1.86 H (0.52-1.04) mg/dL Glucose 214 H (74-99) mg/dL POC Glucose (mg/dL) (75-99) mg/dL Calcium (8.4-10.2) mg/dL Magnesium (1.6-2.3) mg/dL Total Protein 6.2 L (6.3-8.2) g/dL Albumin 3.4 L (3.5-5.0) g/dL Urine Appearance Cloudy H (Clear) Urine Protein 1+ H (Negative) Urine Nitrite Positive H (Negative) Ur Leukocyte Esterase Large H (Negative) Urine WBC 32 H (0-5) /hpf Urine WBC Clumps Occasional H (None) /hpf Urine Bacteria Many H (None) /hpf Urine Mucus Rare H (None) /hpf 11/07/21 11/07/21 11/08/21 Range/Units 17:19 20:02 00:19 WBC (3.8-10.6) k/uL RBC (3.80-5.40) m/uL Hgb (11.4-16.0) gm/dL Hct (34.0-46.0) % MCHC (31.0-37.0) g/dL Sodium (137-145) mmol/L Potassium (3.5-5.1) mmol/L BUN (7-17) mg/dL Creatinine (0.52-1.04) mg/dL Glucose (74-99) mg/dL POC Glucose (mg/dL) 277 H 229 H 63 L (75-99) mg/dL Calcium (8.4-10.2) mg/dL Magnesium (1.6-2.3) mg/dL Total Protein (6.3-8.2) g/dL Albumin (3.5-5.0) g/dL Urine Appearance (Clear) Urine Protein (Negative) Urine Nitrite (Negative) Ur Leukocyte Esterase (Negative) Urine WBC (0-5) /hpf Urine WBC Clumps (None) /hpf Urine Bacteria (None) /hpf Urine Mucus (None) /hpf 11/08/21 11/08/21 11/08/21 Range/Units 01:12 06:00 07:17 WBC (3.8-10.6) k/uL RBC (3.80-5.40) m/uL Hgb (11.4-16.0) gm/dL Hct (34.0-46.0) % MCHC (31.0-37.0) g/dL Sodium 135 L (137-145) mmol/L Potassium 5.3 H (3.5-5.1) mmol/L BUN 60 H (7-17) mg/dL Creatinine 2.26 H (0.52-1.04) mg/dL Glucose 122 H (74-99) mg/dL POC Glucose (mg/dL) 103 H 123 H (75-99) mg/dL Calcium 7.9 L (8.4-10.2) mg/dL Magnesium 2.5 H (1.6-2.3) mg/dL Total Protein 5.7 L (6.3-8.2) g/dL Albumin 3.0 L (3.5-5.0) g/dL Urine Appearance (Clear) Urine Protein (Negative) Urine Nitrite (Negative) Ur Leukocyte Esterase (Negative) Urine WBC (0-5) /hpf Urine WBC Clumps (None) /hpf Urine Bacteria (None) /hpf Urine Mucus (None) /hpf 11/08/21 Range/Units 07:17 WBC 11.7 H (3.8-10.6) k/uL RBC 2.98 L (3.80-5.40) m/uL Hgb 8.2 L (11.4-16.0) gm/dL Hct 28.0 L (34.0-46.0) % MCHC 29.3 L (31.0-37.0) g/dL Sodium (137-145) mmol/L Potassium (3.5-5.1) mmol/L BUN (7-17) mg/dL Creatinine (0.52-1.04) mg/dL Glucose (74-99) mg/dL POC Glucose (mg/dL) (75-99) mg/dL Calcium (8.4-10.2) mg/dL Magnesium (1.6-2.3) mg/dL Total Protein (6.3-8.2) g/dL Albumin (3.5-5.0) g/dL Urine Appearance (Clear) Urine Protein (Negative) Urine Nitrite (Negative) Ur Leukocyte Esterase (Negative) Urine WBC (0-5) /hpf Urine WBC Clumps (None) /hpf Urine Bacteria (None) /hpf Urine Mucus (None) /hpf
[2021-11-08] MEDS ORDERED: FUROSEMIDE 10 MG/ML 4 ML VIAL IV SCH (09:00)
[2021-11-08] MEDS ORDERED: ERGOCALCIFEROL 1,250 MCG (50,000 IU) CAPSULE PO SCH (09:00)
[2021-11-08] MEDS ORDERED: SODIUM CHLORIDE 0.9% 1,000 ML IV SCH (09:00)
[2021-11-08] MEDS: hydrALAZINE HCL 25 MG TAB PO SCH ×3 (09:57→20:27)
[2021-11-08] MEDS: PIOGLITAZONE 15 MG TAB PO SCH (09:57)
[2021-11-08 11:35] LABS: Glucose,Whole Blood 352 mg/dL (75-99)
--- NOTE | 2021-11-08 11:42 | P.PN ---
Subjective Progress Note Date: 11/08/21 Principal diagnosis: Acute on chronic hypoxic respiratory failure secondary to acute on chronic and just of heart failure with preserved LV function. This is an 81-year-old female patient and I was asked even with this patient because of shortness of breath and possibility of a pneumonia. Note that the patient has multiple medical problems and comorbidities. 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 Amaya for pain management. Asked hospitalization was in March 2021 for acute on chronic diastolic heart failure. At that time echocardiogram revealed EF of 55-60% with severe concentric left ventricular hypertrophy, moderate aortic stenosis, moderate mitral regurgitation, mild tricuspid regurgitation, mild pulmonary hypertension. The patient was [place] members [place] a [place]. She was doing well. After arriving home, she became shortness of breath and the shortness of breath progressed over 3 hours and for that reason, she end up coming into the hospital. No palpitation. No angina. No loss of consciousness. No syncope. No pleurisy. No hemoptysis. She was feeling slightly nauseated. Denied having any angina. No cough or sputum production. No fevers. EMS was called to her house and the patient was brought to the ED. In the ED, the patient was placed on 2 L of O2 nasal cannula and later on to 3 L to make a saturation of around 97%. The patient had a chest x- ray that showed increased interstitial markings bilaterally especially lower lobes and possibly some small effusions and currently B-lines. The patient had a white second of 11.8 with hemoglobin of 10, normal correlation profile, normal metabolic profile, proBNP level was 2240, chest x-ray was noted, the patient was given sublingual nitroglycerin and this was given for some chest discomfort and elevated blood pressure. Blood pressure improved. She was given also the one that and she was also given Decadron. EKG showed no acute ischemic changes. Accordingly, the patient was admitted to the hospital for further care. Note that she had a quite significant elevated blood pressure at time of admission. She does have chronic kidney disease with a creatinine of 1.38 consistent with stage III kidney disease along with a mean of 30 and a sodium level of 139. White cell count is at 11.8. For now, the patient is on IV Lasix 40 mg every 12 hours. Already feeling better. Her weight is not and the patient is in a negative fluid balance. The patient had abnormal troponins and the patient had troponin of 0.2 and 0.3 respectively consistent with an acute non-ST segment elevation myocardial infarction. The EKG showing incomplete RBBB, LVH, sinus tachycardia. No acute ST segment elevation or depression. Reevaluated today on 11/07/21, patient is feeling better, breathing easier, r esponding well to diuretics. Patient underwent transesophageal echocardiography, patient was found to have moderate to severe aortic stenosis, normal systolic function, severely calcified aortic valve and moderate mitral and tricuspid regurgitation with moderate to severe pulmonary hypertension. No evidence of shunt was noted. Patient is now scheduled to have cardiac catheterization tomorrow. Pulmonary-reich she is feeling better breathing easier, and further cardiac workup is pending. Patient is on 2 L nasal cannula with O2 saturation in the 100%. Blood pressure is 94/54. WBC count is 21.6 hemoglobin is 9.3 electrolytes are normal renal profile is abnormal with BUN of 51 creatinine 1.86, up from 1.38 on admission. Urinalysis is suggestive of UTI. Reevaluated today on 11/08/2021, patient is doing well, she has no cough no wheezing no shortness of breath, she is presently on room air. She was supposed to have cardiac catheterization today however because of her renal status, her cardiac catheterization is put on hold, and in the meantime Lasix is on hold, and the patient is receiving IV fluids. Pulmonary-reich the patient has no cough no wheezing no shortness of breath, and her lungs are clear. WBC count is 11.7 hemoglobin is 8.2 BUN is today 60 creatinine 2.26, baseline was 1.38. And it was 1.86 yesterday. Objective - Vital Signs Vital signs: Vital Signs Temp 97.9 F 11/08/21 08:00 Pulse 66 11/08/21 08:00 Resp 20 11/08/21 08:00 BP 125/70 11/08/21 08:00 Pulse Ox 96 11/08/21 08:00 Intake & Output 11/07/21 11/08/21 11/08/21 18:59 06:59 18:59 Intake Total 290 Output Total 500 Balance 290 -500 Weight 97.5 kg Intake: IV 250 Intake, IV Titration 40 Amount Sodium Chloride 0.9% 1, 40 000 ml @ 20 mls/hr IV . Q24H [facility] Rx#:[id number] Output: Urine 500 Other: Voiding Method Toilet Bedside Commode # Voids 1 1 - Exam Physical Exam: Revealed 81-year-old female in no distress, on room air. Head: Atraumatic, normocephalic. HEENT:[Neck is supple.] [No neck masses.] [No thyromegaly.] [No JVD.] Chest: [Symmetrical expansion clear throughout no crackles or rhonchi or wheezes Cardiac Exam: [Normal S1 and S2, no S3 gallop, 3/6 systolic murmur best heard o dinesh the aortic area. Abdomen: [Soft, nontender, no megaly, no rebound, no guarding, normal bowel so unds.] Extremities: [No clubbing, trace of bipedal edema, no cyanosis.] Neurological Exam: [No focal neurologic deficit.] Psychiatric: Normal mood affect and normal status examination. Skin: No rashes. - Labs CBC & Chem 7: 11/08/21 07:17 11/08/21 07:17 Labs: Abnormal Lab Results - Last 24 Hours (Table) 11/07/21 11/07/21 11/07/21 Range/Units 13:00 17:19 20:02 WBC (3.8-10.6) k/uL RBC (3.80-5.40) m/uL Hgb (11.4-16.0) gm/dL Hct (34.0-46.0) % MCHC (31.0-37.0) g/dL Sodium (137-145) mmol/L Potassium (3.5-5.1) mmol/L BUN (7-17) mg/dL Creatinine (0.52-1.04) mg/dL Glucose (74-99) mg/dL POC Glucose (mg/dL) 277 H 229 H (75-99) mg/dL Calcium (8.4-10.2) mg/dL Magnesium (1.6-2.3) mg/dL Total Protein (6.3-8.2) g/dL Albumin (3.5-5.0) g/dL Urine Appearance Cloudy H (Clear) Urine Protein 1+ H (Negative) Urine Nitrite Positive H (Negative) Ur Leukocyte Esterase Large H (Negative) Urine WBC 32 H (0-5) /hpf Urine WBC Clumps Occasional H (None) /hpf Urine Bacteria Many H (None) /hpf Urine Mucus Rare H (None) /hpf 11/08/21 11/08/21 11/08/21 Range/Units 00:19 01:12 06:00 WBC (3.8-10.6) k/uL RBC (3.80-5.40) m/uL Hgb (11.4-16.0) gm/dL Hct (34.0-46.0) % MCHC (31.0-37.0) g/dL Sodium (137-145) mmol/L Potassium (3.5-5.1) mmol/L BUN (7-17) mg/dL Creatinine (0.52-1.04) mg/dL Glucose (74-99) mg/dL POC Glucose (mg/dL) 63 L 103 H 123 H (75-99) mg/dL Calcium (8.4-10.2) mg/dL Magnesium (1.6-2.3) mg/dL Total Protein (6.3-8.2) g/dL Albumin (3.5-5.0) g/dL Urine Appearance (Clear) Urine Protein (Negative) Urine Nitrite (Negative) Ur Leukocyte Esterase (Negative) Urine WBC (0-5) /hpf Urine WBC Clumps (None) /hpf Urine Bacteria (None) /hpf Urine Mucus (None) /hpf 11/08/21 11/08/21 11/08/21 Range/Units 07:17 07:17 11:32 WBC 11.7 H (3.8-10.6) k/uL RBC 2.98 L (3.80-5.40) m/uL Hgb 8.2 L (11.4-16.0) gm/dL Hct 28.0 L (34.0-46.0) % MCHC 29.3 L (31.0-37.0) g/dL Sodium 135 L (137-145) mmol/L Potassium 5.3 H (3.5-5.1) mmol/L BUN 60 H (7-17) mg/dL Creatinine 2.26 H (0.52-1.04) mg/dL Glucose 122 H (74-99) mg/dL POC Glucose (mg/dL) 352 H (75-99) mg/dL Calcium 7.9 L (8.4-10.2) mg/dL Magnesium 2.5 H (1.6-2.3) mg/dL Total Protein 5.7 L (6.3-8.2) g/dL Albumin 3.0 L (3.5-5.0) g/dL Urine Appearance (Clear) Urine Protein (Negative) Urine Nitrite (Negative) Ur Leukocyte Esterase (Negative) Urine WBC (0-5) /hpf Urine WBC Clumps (None) /hpf Urine Bacteria (None) /hpf Urine Mucus (None) /hpf Assessment and Plan Assessment: Impression Acute on chronic hypoxic respiratory failure secondary to acute congestive heart failure secondary to severe aortic stenosis and possibly mitral valve disease. Acute non-ST elevation myocardial infarction Chronic kidney disease stage III acute on chronic kidney injury Type 2 diabetes Previous history of CVA Hypothyroidism Benign essential hypertension Dyslipidemia Paroxysmal atrial fibrillation Moderate severe aortic stenosis and pulmonary hypertension Anemia of chronic disease Recommendation: Agree with holding diuretics Agree with IV fluids Agree with holding cardiac catheterization for now until renal function improves Discussed her status with family at bedside. Will continue to follow. Time with Patient: Less than 30
[2021-11-08] MEDS: SODIUM CHLORIDE 0.9% 1,000 ML IV SCH ×2 (12:52→20:32)
--- NOTE | 2021-11-08 13:25 | P.PN ---
Subjective Progress Note Date: 11/08/21 Hospital course: Patient is a very pleasant 81-year-old female with a past medical history of CAD, hypertension, hyperlipidemia, atrial fibrillation on anticoagulation with Eliquis, moderate to severe aortic stenosis, chronic diastolic heart failure with previously known EF between 55 and 60%, type 2 insulin-dependent diabetes mellitus, prior CVA, chronic kidney disease stage III, COPD, obstructive sleep apnea, and degenerative disc disease. Patient presented to the hospital on 11/06/21 with a chief complaint of shortness of breath and dizziness after a fam stephen trip to the [facility]. In the emergency department a chest x-ray was completed revealing basilar airspace opacities right greater than left. EKG completed showing sinus tachycardia at [address] depression in inferior lateral leads I, II, aVL, V5, and V6 which is a new finding when compared to EKG completed 10/24/21. Troponins elevated with initial troponin 0.406, 0.320, and 0.256. ProBNP 2240. CBC showing mild leukocytosis with WBC count of 11.8 and normocytic normochromic anemia with hemoglobin of 10.0. BMP consistent with stage III chronic kidney disease with baseline creatinine levels. Patient was admitted under hospitalist services for CHF exacerbation and NSTEMI with consult ation to cardiology. Physical exam: Patient was seen and fully evaluated at bedside this morning. Patient was resting comfortably. She reports feeling well this morning other than having some lower back pain from lying in bed. She continues to deny having any headache, lightheadedness, dizziness, chest pain, palpitations, nausea, or experiencing any numbness/tubing/weakness in her extremities. Morning labs reviewed, . Pro-calcitonin elevated at 0.39 and patient continues to have leukocytosis with WBC count of 11.7. Urinalysis was positive for nitrites, leukocytes, and 32 WBCs. Patient started on Rocephin. Secondary to acute kidney injury, cardiology also postponing cardiac cath until tomorrow after patient can be rehydrated with IV fluids allowing time for creatinine to improve. Patient started on heparin infusion in replacement of Eliquis. Vital signs reviewed and stable. General: Nontoxic, no distress and appears stated age. Derm: Skin warm and dry, normal coloration for ethnicity. Head: Atraumatic, normocephalic and symmetric. Eyes: EOMs intact, no lid lag, and anicteric sclera Mouth: no lip lesions, mucus membranes moist Cardiovascular: regular rate and rhythm with normal S1S2, systolic murmur, positive posterior tibial pulses bilaterally, and cap refill < 2 seconds. Lungs: Respirations even, regular, and unlabored on room air. Lungs CTA bilaterally, no rhonchi, no rales, no wheezing, and no accessory muscle usage. Abdominal: soft, nontender to palpation, no guarding, no appreciable organomegaly Ext: ROM intact. No gross muscle atrophy, no edema, no contractures Neuro: Speech clear, face symmetrical and CN II-XII grossly intact with no noted focal neuro deficits Psych: Alert and oriented to person, place, time, and situation. Appropriate and pleasant affect. Assessment and Plan of Care: Acute diastolic heart failure exacerbation NSTEMI Paroxysmal atrial fibrillation -Cardiology following, plans to take patient for BURKE today and cardiac cath tomorrow -Continue Telemetry monitoring -Troponins elevated at 0.406, 0.320, 0.256. -ProBNP 2240 -Daily weights -Close monitoring of I's and O's -Cardiac diet, NPO at midnight for cardiac cath -Lasix 40 mg IVP daily -Continue daily cardiac medication regimen consisting of: Aspirin, atorvastatin, carvedilol, isosorbide mononitrate, lisinopril, and hydralazine -Continued close monitoring of electrolytes while diuresing. Acute kidney injury on Stage III chronic kidney disease -Likely secondary to dehydration resulting from Lasix -BUN 60, Creatinine 2.26, and GFR 20. Baseline creatinine 1.3. -Lasix discontinued and patient started on IV fluid hydration with 0.9% normal saline at 100 mL's per hour. -Continue close monitoring with repeat a.m. labs. Hyperkalemia -Secondary to acute kidney injury -Potassium 5.3, patient receiving IV fluid hydration we will continue to monitor with repeat a.m. labs. COPD, lifelong smoking history Obstructive sleep apnea -Encourage incentive spirometry 10-15 times hourly while awake. -Provide oxygenation as needed to maintain SpO2 equal to or greater than 92%. -DuoNeb nebs as needed for shortness of breath and/or wheezing Hypertension -Monitor vital signs and continue daily medication regimen with lisinopril, isosorbide mononitrate, carvedilol and hydralazine Type 2 insulin-dependent diabetes mellitus, glycemic protocol with NovoLog sliding scale and continue scheduled 70/30 insulin and aspart with meals. Degenerative disc disease resulting in chronic back pain, follows with pain management with Dr. Amaya. Provide symptomatic care and pain management. Chronic anemia resulting from chronic disease, continue daily medication regimen with ferrous sulfate 325 mg daily. CODE STATUS: Full code DVT prophylaxis: Heparin Discussed with: Patient, patient's 2 daughters at bedside and RN Anticipated discharge date: Clinical course to determine Anticipated discharge place: home A total of 40 minutes was spent on the care of this complex patient more than 50% of the time was spent in counseling and care coordination. Objective - Vital Signs Vital signs: Vital Signs Temp 97.7 F 11/08/21 11:56 Pulse 68 11/08/21 11:56 Resp 20 11/08/21 11:56 BP 117/61 11/08/21 11:56 Pulse Ox 96 11/08/21 11:56 Intake & Output 11/07/21 11/08/21 11/08/21 18:59 06:59 18:59 Intake Total 290 Output Total 500 Balance 290 -500 Weight 97.5 kg Intake: IV 250 Intake, IV Titration 40 Amount Sodium Chloride 0.9% 1, 40 000 ml @ 20 mls/hr IV . Q24H [facility] Rx#:[id number] Output: Urine 500 Other: Voiding Method Toilet Bedside Commode # Voids 1 1 - Labs CBC & Chem 7: 11/08/21 07:17 11/08/21 07:17 Labs: Abnormal Lab Results - Last 24 Hours (Table) 11/07/21 11/07/21 11/07/21 Range/Units 13:00 17:19 20:02 WBC (3.8-10.6) k/uL RBC (3.80-5.40) m/uL Hgb (11.4-16.0) gm/dL Hct (34.0-46.0) % MCHC (31.0-37.0) g/dL Sodium (137-145) mmol/L Potassium (3.5-5.1) mmol/L BUN (7-17) mg/dL Creatinine (0.52-1.04) mg/dL Glucose (74-99) mg/dL POC Glucose (mg/dL) 277 H 229 H (75-99) mg/dL Calcium (8.4-10.2) mg/dL Magnesium (1.6-2.3) mg/dL Total Protein (6.3-8.2) g/dL Albumin (3.5-5.0) g/dL Procalcitonin (0.02-0.09) ng/mL Urine Appearance Cloudy H (Clear) Urine Protein 1+ H (Negative) Urine Nitrite Positive H (Negative) Ur Leukocyte Esterase Large H (Negative) Urine WBC 32 H (0-5) /hpf Urine WBC Clumps Occasional H (None) /hpf Urine Bacteria Many H (None) /hpf Urine Mucus Rare H (None) /hpf 11/08/21 11/08/21 11/08/21 Range/Units 00:19 01:12 06:00 WBC (3.8-10.6) k/uL RBC (3.80-5.40) m/uL Hgb (11.4-16.0) gm/dL Hct (34.0-46.0) % MCHC (31.0-37.0) g/dL Sodium (137-145) mmol/L Potassium (3.5-5.1) mmol/L BUN (7-17) mg/dL Creatinine (0.52-1.04) mg/dL Glucose (74-99) mg/dL POC Glucose (mg/dL) 63 L 103 H 123 H (75-99) mg/dL Calcium (8.4-10.2) mg/dL Magnesium (1.6-2.3) mg/dL Total Protein (6.3-8.2) g/dL Albumin (3.5-5.0) g/dL Procalcitonin (0.02-0.09) ng/mL Urine Appearance (Clear) Urine Protein (Negative) Urine Nitrite (Negative) Ur Leukocyte Esterase (Negative) Urine WBC (0-5) /hpf Urine WBC Clumps (None) /hpf Urine Bacteria (None) /hpf Urine Mucus (None) /hpf 11/08/21 11/08/21 11/08/21 Range/Units 07:17 07:17 07:17 WBC 11.7 H (3.8-10.6) k/uL RBC 2.98 L (3.80-5.40) m/uL Hgb 8.2 L (11.4-16.0) gm/dL Hct 28.0 L (34.0-46.0) % MCHC 29.3 L (31.0-37.0) g/dL Sodium 135 L (137-145) mmol/L Potassium 5.3 H (3.5-5.1) mmol/L BUN 60 H (7-17) mg/dL Creatinine 2.26 H (0.52-1.04) mg/dL Glucose 122 H (74-99) mg/dL POC Glucose (mg/dL) (75-99) mg/dL Calcium 7.9 L (8.4-10.2) mg/dL Magnesium 2.5 H (1.6-2.3) mg/dL Total Protein 5.7 L (6.3-8.2) g/dL Albumin 3.0 L (3.5-5.0) g/dL Procalcitonin 0.39 H (0.02-0.09) ng/mL Urine Appearance (Clear) Urine Protein (Negative) Urine Nitrite (Negative) Ur Leukocyte Esterase (Negative) Urine WBC (0-5) /hpf Urine WBC Clumps (None) /hpf Urine Bacteria (None) /hpf Urine Mucus (None) /hpf 11/08/ Range/Units 11:32 WBC (3.8-10.6) k/uL RBC (3.80-5.40) m/uL Hgb (11.4-16.0) gm/dL Hct (34.0-46.0) % MCHC (31.0-37.0) g/dL Sodium (137-145) mmol/L Potassium (3.5-5.1) mmol/L BUN (7-17) mg/dL Creatinine (0.52-1.04) mg/dL Glucose (74-99) mg/dL POC Glucose (mg/dL) 352 H (75-99) mg/dL Calcium (8.4-10.2) mg/dL Magnesium (1.6-2.3) mg/dL Total Protein (6.3-8.2) g/dL Albumin (3.5-5.0) g/dL Procalcitonin (0.02-0.09) ng/mL Urine Appearance (Clear) Urine Protein (Negative) Urine Nitrite (Negative) Ur Leukocyte Esterase (Negative) Urine WBC (0-5) /hpf Urine WBC Clumps (None) /hpf Urine Bacteria (None) /hpf Urine Mucus (None) /hpf
[2021-11-08 16:24] LABS: Glucose,Whole Blood 278 mg/dL (75-99)
[2021-11-08] MEDS: ALBUTEROL NEBULIZED 2.5 MG/3 ML INHALATION PRN (19:12)
[2021-11-08 20:26] LABS: Glucose,Whole Blood 174 mg/dL (75-99)
[2021-11-08] MEDS: ATORVASTATIN 80 MG TAB PO SCH (20:26)
[2021-11-08] MEDS: MELATONIN 5 MG TABLET PO SCH (20:26)
[2021-11-09 02:01] LABS: Glucose,Whole Blood 125 mg/dL (75-99)
[2021-11-09 06:07] LABS: Glucose,Whole Blood 122 mg/dL (75-99)
[2021-11-09] MEDS: ASPIRIN 81 MG PO SCH ×2 (06:23→06:32)
[2021-11-09] MEDS: INSULIN ASPART (NovoLOG) 100 UNIT/ML VIAL SQ SCH ×4 (06:23→20:12)
[2021-11-09] MEDS: POTASSIUM CHLORIDE ER 20 MEQ TAB.ER PO SCH (06:24)
[2021-11-09] MEDS: carvediloL 12.5 MG TAB PO SCH ×2 (06:30→17:22)
[2021-11-09] MEDS: DOCUSATE 100 MG CAP PO SCH (06:30)
[2021-11-09] MEDS: hydrALAZINE HCL 25 MG TAB PO SCH ×3 (06:30→20:12)
[2021-11-09] MEDS: ISOSORBIDE MONONITRATE ER 60 MG TAB.ER.24H PO SCH (06:30)
[2021-11-09] MEDS: lisinopriL 10 MG TAB PO SCH (06:30)
[2021-11-09] MEDS: MAGNESIUM OXIDE 400 MG TAB PO SCH (06:30)
[2021-11-09] MEDS: LEVOTHYROXINE 125 MCG TAB PO SCH (06:30)
[2021-11-09] MEDS: SERTRALINE 25 MG TAB PO SCH (06:30)
[2021-11-09] MEDS: polyethylene glycoL 3350 17 GM POWD.PACK PO SCH (06:33)
[2021-11-09] MEDS ORDERED: HEPARIN SODIUM,PORCINE 2,500 UNIT in SODIUM CHLORIDE 0.9% 250 ML IRRIGATION PRN (07:00)
[2021-11-09] MEDS ORDERED: HEPARIN SODIUM,PORCINE 10,000 UNIT in SODIUM CHLORIDE 0.9% 1,000 ML IRRIGATION PRN (07:00)
[2021-11-09 07:52] LABS: HCT 27.7 % (34.0-46.0); HGB 8.3 gm/dL (11.4-16.0); Hypochromasia Marked; MCHC 29.8 g/dL (31.0-37.0); MCV 93.9 fL (80.0-100.0); Mean Platelet Volume 9.7; Platelet Count 219 k/uL (150-450); RBC 2.95 m/uL (3.80-5.40); RDW 14.2 % (11.5-15.5); WBC 9.8 k/uL (3.8-10.6)
[2021-11-09 08:07] LABS: Calcium 7.7 mg/dL (8.4-10.2); Potassium 4.6 mmol/L (3.5-5.1)
[2021-11-09] MEDS: ALBUTEROL NEBULIZED 2.5 MG/3 ML INHALATION PRN ×2 (08:14→19:23)
[2021-11-09] MEDS ORDERED: ASPIRIN 325 MG TAB PO STA (08:19)
[2021-11-09] MEDS ORDERED: LIDOCAINE 1% INJ 10MG/ML (20 ML MDV) ONE (08:28)
[2021-11-09] MEDS ORDERED: VERAPAMIL 2.5 MG/ML 2 ML AMP ONE (08:28)
[2021-11-09] MEDS ORDERED: fentaNYL (PF) 50 MCG/ML 2 ML AMP ONE (08:41)
[2021-11-09] MEDS ORDERED: HEPARIN SODIUM 1,000 UN/ML (10ML VL) ONE (08:41)
[2021-11-09] MEDS ORDERED: ASPIRIN 325 MG TAB PO SCH (09:00)
[2021-11-09] MEDS ORDERED: IV FLUID CONTINUATION 1,000 ML IV ONE (09:15)
[2021-11-09] MEDS ORDERED: fentaNYL (PF) 50 MCG/ML 2 ML AMP IV ONE (09:26)
[2021-11-09] MEDS ORDERED: LIDOCAINE 1% INJ 10MG/ML (20 ML MDV) SQ ONE (09:29)
[2021-11-09] MEDS ORDERED: SODIUM CHLORIDE 0.9% 1,000 ML IV ONE (09:29)
[2021-11-09] MEDS ORDERED: VERAPAMIL SYRINGE (5 MG/10 ML) INTRAARTER ONE (09:31)
[2021-11-09] MEDS ORDERED: IOPAMIDOL-370 125ML BTL INJ ONE (10:18)
[2021-11-09] MEDS ORDERED: RX INFO: IV CONTRAST WAS GIVEN 1 EACH MISC MISCELLANE PRN (10:34)
[2021-11-09 10:41] LABS: O2 Sat Blood Gas 86.1 %
[2021-11-09] MEDS ORDERED: SODIUM CHLORIDE 0.9% 1,000 ML IV SCH (10:45)
--- NOTE | 2021-11-09 12:09 | P.CARDCATH ---
Date of Procedure: 11/09/21 Description of Procedure: Cardiac Catheterization: The patient is an 81-year-old female with a history of hypertension, diabetes mellitus and edema as well as chronic kidney disease who had multiple admission to the hospital was progressive dyspnea, mild troponin elevation and elevated NT proBNP. Her echocardiogram was consistent with moderate to severe aortic stenosis. Recommendations were made regarding cardiac catheterization, the risks and the complications were discussed with the patient who is in full understanding and agreement. 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 Using Xylocaine Anesthesia and Seldinger technique, a 6-Bolivian sheath was introduced in the right radial artery . Subsequently the catheter in the right brachial area was exchanged to a 6-Bolivian sheath. After connecting the pressure it was noted that it is in the brachial artery. Subsequently, selective coronary angiography performed using a 5-Bolivian 3.5 bend Cecily catheter. Multiple views of the coronary artery including hemiaxial views were obtained. The right Cecily catheter was used to cross the aortic valve and LVDP was calculated. Following that using ultrasound guidance a 6- Bolivian sheath was introduced and the right femoral vein. Right heart catheterization was performed using a Hudson-Sahil catheter. Multiple samples and pressures were obtained. Cardiac output thermodilution was calculated. Following that, catheter and sheath were removed. Hemostasis was obtained with deployment of TR band . Compression of the right femoral vein and pressure on the right brachial artery were done. There was no immediate complication. Patient was returned to room in stable condition. Of note, the patient received a total of 4500 units of intravenous heparin as well as intra-arterial verapamil. There was no immediate complications. Findings: Fluoroscopy: There is severe mitral annulus calcification and aortic valve calcification. Left main: This is a large-size vessel, bifurcating into LAD and left circumflex, left main has no high-grade stenosis. LAD: This is a large-size vessel, giving rise to a large proximal diagonal branch, the LAD has mild intimal disease of 10-20%. Left circumflex: This is a nondominant vessel giving rest to 1 obtuse marginal branch that has no high-grade stenosis RCA: This is a dominant vessel large in caliber, has stent 20% plaque in the midsegment, the rest of the vessel has no high-grade stenosis Left Ventriculogram: Was not performed Hemodynamics: Pulmonary artery saturation 44%, right atrial saturation 78%, heart failure saturation 86%. Cardiac output by Lee 5.1 L per minute with an index of 2.5 L/m/m. Cardiac output thermodilution 5.4 L/m with an index of 2.5-year-old per minute per meter square. Left ventricle end-diastolic pressure 20 mmHg. Pulmonary artery systolic pressure 45, diastolic of 20 with a mean of 28 mmHg. Pulmonary Wedge pressure A wave of 25, V wave 27 with a mean of 21 mmHg. Right ventricular systolic pressure 50 with an end-diastolic of 15 mmHg. Right atrial A wave 14 V wave 13 with a mean of 12 mmHg. Left ventricular systolic pressure 160 mmHg, ascending aorta 120 mmHg with a peak gradient of 40 mmHg. Aortic valve area of 0.8 cm. Conclusion: 1. Calcified aortic valve and mitral annulus 2. Mild coronary artery disease 3. Severe aortic stenosis 4. mild pulmonary hypertension Recommendations: In view of the findings would recommend to proceed with evaluation for aortic valve replacement by TAVR. The findings and recommendations were discussed with the patient and her family and they are in full understanding and agreement. Duration of sedation is 55 minutes.
[2021-11-09 12:17] LABS: Glucose,Whole Blood 198 mg/dL (75-99)
[2021-11-09] MEDS: INSULN ASP PRT/INSULIN ASPART 100 UNIT/ML 10 ML VIAL SQ SCH ×2 (12:17→17:24)
[2021-11-09] MEDS: ACETAMINOPHEN TAB 325 MG TAB PO PRN ×2 (12:27→20:21)
[2021-11-09] MEDS: PIOGLITAZONE 15 MG TAB PO SCH (12:27)
--- NOTE | 2021-11-09 13:49 | P.PN ---
Subjective Progress Note Date: 11/09/21 Principal diagnosis: Acute on chronic hypoxic respiratory failure secondary to acute on chronic and just of heart failure with preserved LV function. This is an 81-year-old female patient and I was asked even with this patient because of shortness of breath and possibility of a pneumonia. Note that the patient has multiple medical problems and comorbidities. 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 Amaya for pain management. Asked hospitalization was in March 2021 for acute on chronic diastolic heart failure. At that time echocardiogram revealed EF of 55-60% with severe concentric left ventricular hypertrophy, moderate aortic stenosis, moderate mitral regurgitation, mild tricuspid regurgitation, mild pulmonary hypertension. The patient was with family members at a casino. She was doing well. After arriving home, she became shortness of breath and the shortness of breath progressed over 3 hours and for that reason, she end up coming into the hospital. No palpitation. No angina. No loss of consciousness. No syncope. No pleurisy. No hemoptysis. She was feeling slightly nauseated. Denied having any angina. No cough or sputum production. No fevers. EMS was called to her house and the patient was brought to the ED. In the ED, the patient was placed on 2 L of O2 nasal cannula and later on to 3 L to make a saturation of around 97%. The patient had a chest x- ray that showed increased interstitial markings bilaterally especially lower lobes and possibly some small effusions and currently B-lines. The patient had a white second of 11.8 with hemoglobin of 10, normal correlation profile, normal metabolic profile, proBNP level was 2240, chest x-ray was noted, the patient was given sublingual nitroglycerin and this was given for some chest discomfort and elevated blood pressure. Blood pressure improved. She was given also the one that and she was also given Decadron. EKG showed no acute ischemic changes. Accordingly, the patient was admitted to the hospital for further care. Note that she had a quite significant elevated blood pressure at time of admission. She does have chronic kidney disease with a creatinine of 1.38 consistent with stage III kidney disease along with a mean of 30 and a sodium level of 139. White cell count is at 11.8. For now, the patient is on IV Lasix 40 mg every 12 hours. Already feeling better. Her weight is not and the patient is in a negative fluid balance. The patient had abnormal troponins and the patient had troponin of 0.2 and 0.3 respectively consistent with an acute non-ST segment elevation myocardial infarction. The EKG showing incomplete RBBB, LVH, sinus tachycardia. No acute ST segment elevation or depression. Reevaluated today on 11/07/21, patient is feeling better, breathing easier, r esponding well to diuretics. Patient underwent transesophageal echocardiography, patient was found to have moderate to severe aortic stenosis, normal systolic function, severely calcified aortic valve and moderate mitral and tricuspid regurgitation with moderate to severe pulmonary hypertension. No evidence of shunt was noted. Patient is now scheduled to have cardiac catheterization tomorrow. Pulmonary-reich she is feeling better breathing easier, and further cardiac workup is pending. Patient is on 2 L nasal cannula with O2 saturation in the 100%. Blood pressure is 94/54. WBC count is 21.6 hemoglobin is 9.3 electrolytes are normal renal profile is abnormal with BUN of 51 creatinine 1.86, up from 1.38 on admission. Urinalysis is suggestive of UTI. Reevaluated today on 11/08/2021, patient is doing well, she has no cough no wheezing no shortness of breath, she is presently on room air. She was supposed to have cardiac catheterization today however because of her renal status, her cardiac catheterization is put on hold, and in the meantime Lasix is on hold, and the patient is receiving IV fluids. Pulmonary-reich the patient has no cough no wheezing no shortness of breath, and her lungs are clear. WBC count is 11.7 hemoglobin is 8.2 BUN is today 60 creatinine 2.26, baseline was 1.38. And it was 1.86 yesterday. Patient was reevaluated today on 11/09/2021, continues to do well from the pulmonary perspective. Patient had cardiac catheterization today, she was found to have mild coronary artery disease, severe aortic stenosis, and mild pulmonary hypertension. Patient is now scheduled to be seen by Dr. De Leon on consultation, cardiology is recommending TAVR. Patient and family are very well aware of the recommendation, and the patient will be seen by surgery later t kym. Reviewed the report of her cardiac catheterization. Again there is minimal coronary artery disease, and reviewed the results of her BURKE patient may benefit from taVR. Today, no cough no wheezing. No shortness of breath. Objective - Vital Signs Vital signs: Vital Signs Temp 98.0 F 11/09/21 08:00 Pulse 68 11/09/21 08:30 Resp 16 11/09/21 08:00 BP 126/54 11/09/21 08:00 Pulse Ox 91 L 11/09/21 08:15 Intake & Output 11/08/21 11/09/21 11/09/21 18:59 06:59 18:59 Intake Total 358 200 Output Total 700 Balance 358 -700 200 Intake: IV 200 Oral 358 Output: Urine 700 Other: Voiding Method Bedside Commode Bedside Commode # Voids 1 1 - Exam Physical Exam: Revealed 81-year-old female in no distress, on room air. Head: Atraumatic, normocephalic. HEENT:[Neck is supple.] [No neck masses.] [No thyromegaly.] [No JVD.] Chest: [Symmetrical expansion clear throughout no crackles or rhonchi or wheezes Cardiac Exam: [Normal S1 and S2, no S3 gallop, 3/6 systolic murmur best heard over the aortic area. Abdomen: [Soft, nontender, no megaly, no rebound, no guarding, normal bowel sounds.] Extremities: [No clubbing, trace of bipedal edema, no cyanosis.] Neurological Exam: [No focal neurologic deficit.] Psychiatric: Normal mood affect and normal status examination. Skin: No rashes. - Labs CBC & Chem 7: 11/09/21 07:41 11/09/21 07:41 Labs: Abnormal Lab Results - Last 24 Hours (Table) 11/08/21 11/08/21 11/09/21 Range/Units 16:19 20:24 01:59 RBC (3.80-5.40) m/uL Hgb (11.4-16.0) gm/dL Hct (34.0-46.0) % MCHC (31.0-37.0) g/dL Chloride (98-107) mmol/L BUN (7-17) mg/dL Creatinine (0.52-1.04) mg/dL Glucose (74-99) mg/dL POC Glucose (mg/dL) 278 H 174 H 125 H (75-99) mg/dL Calcium (8.4-10.2) mg/dL 11/09/21 11/09/21 11/09/21 Range/Units 06:06 07:41 07:41 RBC 2.95 L (3.80-5.40) m/uL Hgb 8.3 L (11.4-16.0) gm/dL Hct 27.7 L (34.0-46.0) % MCHC 29.8 L (31.0-37.0) g/dL Chloride 108 H (98-107) mmol/L BUN 55 H (7-17) mg/dL Creatinine 1.78 H (0.52-1.04) mg/dL Glucose 132 H (74-99) mg/dL POC Glucose (mg/dL) 122 H (75-99) mg/dL Calcium 7.7 L (8.4-10.2) mg/dL 11/09/21 Range/Units 12:15 RBC (3.80-5.40) m/uL Hgb (11.4-16.0) gm/dL Hct (34.0-46.0) % MCHC (31.0-37.0) g/dL Chloride (98-107) mmol/L BUN (7-17) mg/dL Creatinine (0.52-1.04) mg/dL Glucose (74-99) mg/dL POC Glucose (mg/dL) 198 H (75-99) mg/dL Calcium (8.4-10.2) mg/dL Assessment and Plan Assessment: Impression Acute on chronic hypoxic respiratory failure secondary to acute congestive heart failure secondary to severe aortic stenosis Chronic kidney disease stage III acute on chronic kidney injury Type 2 diabetes Previous history of CVA Hypothyroidism Benign essential hypertension Dyslipidemia Paroxysmal atrial fibrillation Moderate severe aortic stenosis and pulmonary hypertension Anemia of chronic disease Mild coronary artery disease Recommendation: Continue present supportive care measures Patient to be seen on consultation by cardiothoracic surgery for possible TAPVR. Discussed her status with family at bedside. Will continue to follow. Time with Patient: Less than 30
--- NOTE | 2021-11-09 13:58 | P.PN ---
Subjective Progress Note Date: 11/09/21 Hospital course: Patient is a very pleasant 81-year-old female with a past medical history of CAD, hypertension, hyperlipidemia, atrial fibrillation on anticoagulation with Eliquis, moderate to severe aortic stenosis, chronic diastolic heart failure with previously known EF between 55 and 60%, type 2 insulin-dependent diabetes mellitus, prior CVA, chronic kidney disease stage III, COPD, obstructive sleep apnea, and degenerative disc disease. Patient presented to the hospital on 11/06/21 with a chief complaint of shortness of breath and dizziness after a fam stephen trip to the [facility]. In the emergency department a chest x-ray was completed revealing basilar airspace opacities right greater than left. EKG completed showing sinus tachycardia at [address] depression in inferior lateral leads I, II, aVL, V5, and V6 which is a new finding when compared to EKG completed 10/24/21. Troponins elevated with initial troponin 0.406, 0.320, and 0.256. ProBNP 2240. CBC showing mild leukocytosis with WBC count of 11.8 and normocytic normochromic anemia with hemoglobin of 10.0. BMP consistent with stage III chronic kidney disease with baseline creatinine levels. Patient was admitted under hospitalist services for CHF exacerbation and NSTEMI with consult ation to cardiology. 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 Patient was resting comfortably and eating lunch at this time with her daughters at bedside. Daily labs reviewed. Hemoglobin stable at 8.3, leukocytosis resolved and renal function improving with IV hydration. BUN was 55, creatinine 1.78, and GFR 27. TR band in place to right wrist. No hematoma or bleeding from right groin noted. Patient remains lying flat in bed at this time per post cardiac cath protocol. Patient currently denies having any complaints or concerns including headache, lightheadedness, dizziness, chest pain, palpitations, shortness of breath, or experiencing any numbness/tingling/weakness in her extremities. Patient to resume Eliquis once cleared by cardiology to resume. Vital signs reviewed and stable. General: Nontoxic, no distress and appears stated age. Derm: Skin warm and dry, normal coloration for ethnicity. Head: Atraumatic, normocephalic and symmetric. Eyes: EOMs intact, no lid lag, and anicteric sclera Mouth: no lip lesions, mucus membranes moist Cardiovascular: regular rate and rhythm with normal S1S2, systolic murmur, positive posterior tibial pulses bilaterally, and cap refill < 2 seconds. Lungs: Respirations even, regular, and unlabored on room air. Lungs CTA bilaterally, no rhonchi, no rales, no wheezing, and no accessory muscle usage. Abdominal: soft, nontender to palpation, no guarding, no appreciable organomegaly Ext: ROM intact. No gross muscle atrophy, no edema, no contractures Neuro: Speech clear, face symmetrical and CN II-XII grossly intact with no noted focal neuro deficits Psych: Alert and oriented to person, place, time, and situation. Appropriate and pleasant affect. Assessment and Plan of Care: Acute diastolic heart failure exacerbation NSTEMI Paroxysmal atrial fibrillation -Cardiology following, plans to take patient for BURKE today and cardiac cath tomorrow -Continue Telemetry monitoring -Troponins elevated at 0.406, 0.320, 0.256. -ProBNP 2240 -Daily weights -Close monitoring of I's and O's -Cardiac diet, NPO at midnight for cardiac cath -Lasix 40 mg IVP daily -Continue daily cardiac medication regimen consisting of: Aspirin, atorvastatin, carvedilol, isosorbide mononitrate, lisinopril, and hydralazine -Continued close monitoring of electrolytes while diuresing. Acute kidney injury on Stage III chronic kidney disease, improved with IV hydration -Likely secondary to dehydration resulting from Lasix -BUN 60, Creatinine 2.26, and GFR 20. Baseline creatinine 1.3. -Lasix discontinued and patient started on IV fluid hydration with 0.9% normal s nevin at 75 mL's per hour. -Continue close monitoring with repeat a.m. labs. Hyperkalemia, resolved with IV hydration -Secondary to acute kidney injury -Potassium 5.3, patient receiving IV fluid hydration we will continue to monitor with repeat a.m. labs. COPD, lifelong smoking history Obstructive sleep apnea -Encourage incentive spirometry 10-15 times hourly while awake. -Provide oxygenation as needed to maintain SpO2 equal to or greater than 92%. -DuoNeb nebs as needed for shortness of breath and/or wheezing Hypertension -Monitor vital signs and continue daily medication regimen with lisinopril, isosorbide mononitrate, carvedilol and hydralazine Type 2 insulin-dependent diabetes mellitus, glycemic protocol with NovoLog s liding scale and continue scheduled 70/30 insulin and aspart with meals. Degenerative disc disease resulting in chronic back pain, follows with pain management with Dr. Amaya. Provide symptomatic care and pain management. Chronic anemia resulting from chronic disease, continue daily medication regimen with ferrous sulfate 325 mg daily. CODE STATUS: Full code DVT prophylaxis: Heparin Discussed with: Patient, patient's 2 daughters at bedside and RN Anticipated discharge date: Clinical course to determine Anticipated discharge place: home A total of 40 minutes was spent on the care of this complex patient more than 50% of the time was spent in counseling and care coordination. Objective - Vital Signs Vital signs: Vital Signs Temp 98.0 F 11/09/21 08:00 Pulse 68 11/09/21 08:30 Resp 16 11/09/21 08:00 BP 126/54 11/09/21 08:00 Pulse Ox 91 L 11/09/21 08:15 Intake & Output 11/08/21 11/09/21 11/09/21 18:59 06:59 18:59 Intake Total 358 200 Output Total 700 Balance 358 -700 200 Intake: IV 200 Oral 358 Output: Urine 700 Other: Voiding Method Bedside Commode Bedside Commode # Voids 1 1 - Labs CBC & Chem 7: 11/09/21 07:41 11/09/21 07:41 Labs: Abnormal Lab Results - Last 24 Hours (Table) 11/08/21 11/08/21 11/09/21 Range/Units 16:19 20:24 01:59 RBC (3.80-5.40) m/uL Hgb (11.4-16.0) gm/dL Hct (34.0-46.0) % MCHC (31.0-37.0) g/dL Chloride (98-107) mmol/L BUN (7-17) mg/dL Creatinine (0.52-1.04) mg/dL Glucose (74-99) mg/dL POC Glucose (mg/dL) 278 H 174 H 125 H (75-99) mg/dL Calcium (8.4-10.2) mg/dL 11/09/21 11/09/21 11/09/21 Range/Units 06:06 07:41 07:41 RBC 2.95 L (3.80-5.40) m/uL Hgb 8.3 L (11.4-16.0) gm/dL Hct 27.7 L (34.0-46.0) % MCHC 29.8 L (31.0-37.0) g/dL Chloride 108 H (98-107) mmol/L BUN 55 H (7-17) mg/dL Creatinine 1.78 H (0.52-1.04) mg/dL Glucose 132 H (74-99) mg/dL POC Glucose (mg/dL) 122 H (75-99) mg/dL Calcium 7.7 L (8.4-10.2) mg/dL 11/09/21 Range/Units 12:15 RBC (3.80-5.40) m/uL Hgb (11.4-16.0) gm/dL Hct (34.0-46.0) % MCHC (31.0-37.0) g/dL Chloride (98-107) mmol/L BUN (7-17) mg/dL Creatinine (0.52-1.04) mg/dL Glucose (74-99) mg/dL POC Glucose (mg/dL) 198 H (75-99) mg/dL Calcium (8.4-10.2) mg/dL
--- NOTE | 2021-11-09 15:26 | P.GSCN ---
History of Present Illness Consult date: 11/09/21 Reason for Consult: aortic stenosis, possible TAVR Requesting physician: Renée Hernandez History of present illness: This is an 81-year-old female who follows on an outpatient basis with Dr. Dawn for primary care and Dr. Hernandez for cardiology. She has a previous medical history of known aortic stenosis, syncope, hypertension, type 2 diabetes, CVA, severe obstructive sleep apnea not currently on CPAP, COPD although never smoker, recent pneumonia, covid infection in August 2021, hypothyroid, chronic kidney disease, chronic heart failure, and atrial fibrillation on Eliquis for anticoagulation. She has had multiple hospitalizations and emergency room visits since May 2021 for heart failure related symptoms. Patient states she has occasional chest pain, shortness of breath with exertion as well as occasionally at rest. Family reports she is not home for very long before she is calling 911 because she feels she can't breathe. She reported to [facility] emergency room again this admission on 11/05/2021 with complaints of significant shortness of breath. Workup has included transthoracic echoc ardiogram demonstrating normal left ventricular systolic function with EF 55- 60%, trileaflet aortic valve with mild aortic regurgitation, severe aortic stenosis with peak/mean gradient 49/34 mmHg, mild to moderate mitral regurgitation, and mild tricuspid regurgitation. Transesophageal echocardiogram completed confirmed normal left ventricular size and systolic function, severely calcified aortic valve with moderate aortic stenosis by mean gradient of 29 mmHg and severe by planimetry with aortic valve area 0.7-0.9 cm. Heart catheterization was completed today demonstrating no obstructive coronary artery disease. Due to these findings and the patient's frequent admissions to the hospital for shortness of breath consultation was placed to Dr. De Leon for recommendations regarding TAVR. Review of Systems Review of systems was completed and was negative except as noted - Cardiovascular Reports as per HPI, Reports chest pain, Reports dyspnea on exertion, Reports leg edema, Reports shortness of breath Past Medical History Past Medical History: Atrial Fibrillation, Cancer, Chest Pain / Angina, Heart Failure, COPD, CVA/TIA, Diabetes Mellitus, Hyperlipidemia, Hypertension, Osteoarthritis (OA), Pneumonia, Renal Disease, Sleep Apnea/CPAP/BIPAP, Syncope, Thyroid Disorder Additional Past Medical History / Comment(s): Stage III Kidney Disease, hx Pneumonia with Sepsis, no CPAP use (family states she hasn't been out of the hospital long enough to get a CPAP machine), Vitamin D Deficiency, chronic low back pain, frequent constipation, hx skin cancer, neuropathy History of Any Multi-Drug Resistant Organisms: None Reported Past Surgical History: Adenoidectomy, Back Surgery, Bariatric Surgery, Cholecystectomy, Heart Catheterization, Hysterectomy, Tonsillectomy Additional Past Surgical History / Comment(s): Cardiac caths , lap band placed/since removed, low back surgery, L carpal tunnel release X2, skin cancer removal, colonoscopies, bilateral cataract removals/lens implants. Past Anesthesia/Blood Transfusion Reactions: Previous Problems w/ Anesthesia Additional Past Anesthesia/Blood Transfusion Reaction / Comm: "Had too much a nesthesia in 2007 for lap band removal, had to be bagged." Past Psychological History: Depression Additional Psychological History / Comment(s): Pt resides alone. Pt uses a walker. She is receiving home care thru [facility]. Smoking Status: Never smoker Past Alcohol Use History: None Reported Past Drug Use History: None Reported - Past Family History Sister(s) Family Medical History: Myocardial Infarction ([place]) Brother(s) Family Medical History: Cancer Additional Family Medical History / Comment(s): Colon Cancer. Mother Family Medical History: Dementia Additional Family Medical History / Comment(s): Mother of dementia at the age of 89yrs. Father Family Medical History: Cancer Additional Family Medical History / Comment(s): Pt states her father was treated for a sinus infection but really had leukemia and of this at the age of 72 yrs. Medications and Allergies Home Medications Medication Instructions Recorded Confirmed Type Atorvastatin [Lipitor] 80 mg PO HS 06/30/18 11/05/21 History Apixaban [Eliquis] 5 mg PO BID #60 tab 07/04/18 11/05/21 Rx hydrALAZINE HCL [Apresoline] 100 mg PO TID 01/06/19 11/05/21 History Levothyroxine Sodium [Synthroid] 125 mcg PO DAILY #30 tab 01/08/19 11/05/21 Rx Insulin NPL/Insulin Lispro 20 unit SQ W/SUPPER 05/30/20 11/05/21 History [humaLOG MIX 75-25 VIAL] Insulin NPL/Insulin Lispro 30 unit SQ W/BRKFST 06/05/20 11/05/21 History [humaLOG MIX 75-25 VIAL] Ergocalciferol [Vitamin D2 50,000 unit PO TU 07/19/20 11/05/21 History (DRISDOL)] Pioglitazone [Actos] 15 mg PO DAILY 09/13/20 11/05/21 History carvediloL [Coreg*] 12.5 mg PO BID-W/MEALS #60 tab 05/11/21 11/05/21 Rx Potassium Chloride ER [K-Dur 20] 20 meq PO W/BRKFST 08/06/21 11/05/21 History polyethylene glycoL 3350 [Miralax] 17 gm PO DAILY packet 08/12/21 11/05/21 Rx Sertraline [Zoloft] 25 mg PO DAILY 08/30/21 11/05/21 History Meclizine [Antivert] 25 mg PO TID PRN #60 tab 09/05/21 11/05/21 Rx Albuterol Nebulized [Ventolin 2.5 mg INHALATION RT-QID PRN 09/24/21 11/05/21 History Nebulized] Artificial Tears-Hypromellose 1 drop BOTH EYES TID PRN 09/24/21 11/05/21 History [Artificial Tear Drops] Aspirin/Acetaminophen/Caffeine 2 tab PO DAILY PRN 09/24/21 11/05/21 History [Excedrin Extra Strength Caplet] Docusate [Colace] 100 mg PO DAILY 09/24/21 11/05/21 History Elderberry Fruit and Flower [Black 1 cap PO DAILY 09/24/21 11/05/21 History Elderberry 575 mg Cap] Isosorbide Mononitrate ER [Imdur] 60 mg PO DAILY 09/24/21 11/05/21 History Magnesium Oxide [Pierce] 500 mg PO DAILY 09/24/21 11/05/21 History Melatonin 5 mg PO HS 09/24/21 11/05/21 History Multivit-Min/Iron/Folic/Lutein 1 tab PO DAILY 09/24/21 11/05/21 History [Centrum Silver Women Tablet] amLODIPine [Norvasc] 5 mg PO HS 09/24/21 11/05/21 History Aspirin [Adult Low Dose Aspirin EC] 81 mg PO AC-BRKFST #30 tab 10/28/21 11/05/21 Rx Furosemide [Lasix] 40 mg PO BID@0900,1600 30 Days #60 10/28/21 11/05/21 Rx tab lisinopriL 20 mg PO DAILY #0 10/28/21 11/05/21 Rx Allergies Allergy/AdvReac Type Severity Reaction Status Date / Time azithromycin Allergy Rash/Hives Verified 11/05/21 19:36 [From Zithromax Z-Jeanmarie] methylprednisolone Allergy Rash/Hives Verified 11/05/21 19:36 [From Medrol] sulfamethoxazole Allergy Rash/Hives Verified 11/05/21 19:36 [From Bactrim] trimethoprim [From Bactrim] Allergy Rash/Hives Verified 11/05/21 19:36 hydrochlorothiazide AdvReac lost Verified 11/05/21 19:36 balance and fell Surgical - Exam Vital Signs Temp Pulse Resp BP Pulse Ox 98.0 F 101 H 24 188/79 100 11/05/21 18:34 11/05/21 18:34 11/05/21 18:34 11/05/21 18:34 11/05/21 18:34 CONSTITUTIONAL: Awake and alert, appears comfortable, cooperative, well- developed, well-nourished, no pain, no acute distress EYES: Pupils equal, round, reactive to light, normal ocular movement ENT: Moist mucous membranes without oral lesions present NECK: No masses, no bruits, trachea midline RESPIRATORY: Lungs sounds clear to auscultation bilaterally. Respirations even, nonlabored. Currently on 3 L nasal cannula with oxygen saturation 91%. Strong cough. No chest wall deformities. No clubbing or cyanosis present CARDIOVASCULAR: S1, soft S2 present, loud systolic murmur present. Regular rate and rhythm, sinus rhythm on telemetry. Palpable peripheral pulses bilaterally. No edema present. No calf pain or tenderness noted. GASTROINTESTINAL: Abdomen soft, nontender, nondistended without masses or organomegaly noted. There is no rebound or guarding present. Active bowel sounds present 4 quadrants. GENITOURINARY: Deferred INTEGUMENTARY: Skin is warm and dry with evidence of good perfusion. NEUROLOGIC: Cranial nerves II through XII intact, normal coordination, no ob vious motor or sensory deficits, speech is normal MUSKULOSKELETAL: Able to move all extremities, strength equal bilaterally, normal posture PSYCHIATRIC: Alert and oriented to person place and time, appropriate affect, intact judgment and insight Results - Labs 11/09/21 07:41 11/09/21 07:41 Abnormal Lab Results - Last 24 Hours (Table) 11/08/21 11/08/21 11/09/21 Range/Units 16:19 20:24 01:59 RBC (3.80-5.40) m/uL Hgb (11.4-16.0) gm/dL Hct (34.0-46.0) % MCHC (31.0-37.0) g/dL Chloride (98-107) mmol/L BUN (7-17) mg/dL Creatinine (0.52-1.04) mg/dL Glucose (74-99) mg/dL POC Glucose (mg/dL) 278 H 174 H 125 H (75-99) mg/dL Calcium (8.4-10.2) mg/dL 11/09/21 11/09/21 11/09/21 Range/Units 06:06 07:41 07:41 RBC 2.95 L (3.80-5.40) m/uL Hgb 8.3 L (11.4-16.0) gm/dL Hct 27.7 L (34.0-46.0) % MCHC 29.8 L (31.0-37.0) g/dL Chloride 108 H (98-107) mmol/L BUN 55 H (7-17) mg/dL Creatinine 1.78 H (0.52-1.04) mg/dL Glucose 132 H (74-99) mg/dL POC Glucose (mg/dL) 122 H (75-99) mg/dL Calcium 7.7 L (8.4-10.2) mg/dL 11/09/21 Range/Units 12:15 RBC (3.80-5.40) m/uL Hgb (11.4-16.0) gm/dL Hct (34.0-46.0) % MCHC (31.0-37.0) g/dL Chloride (98-107) mmol/L BUN (7-17) mg/dL Creatinine (0.52-1.04) mg/dL Glucose (74-99) mg/dL POC Glucose (mg/dL) 198 H (75-99) mg/dL Calcium (8.4-10.2) mg/dL Diabetes panel 11/09/21 Range/Units 07:41 Sodium 137 (137-145) mmol/L Potassium 4.6 (3.5-5.1) mmol/L Chloride 108 H (98-107) mmol/L Carbon Dioxide 25 (22-30) mmol/L BUN 55 H (7-17) mg/dL Creatinine 1.78 H (0.52-1.04) mg/dL Glucose 132 H (74-99) mg/dL Calcium 7.7 L (8.4-10.2) mg/dL Calcium panel 11/09/21 Range/Units 07:41 Calcium 7.7 L (8.4-10.2) mg/dL Pituitary panel 11/09/21 Range/Units 07:41 Sodium 137 (137-145) mmol/L Potassium 4.6 (3.5-5.1) mmol/L Chloride 108 H (98-107) mmol/L Carbon Dioxide 25 (22-30) mmol/L BUN 55 H (7-17) mg/dL Creatinine 1.78 H (0.52-1.04) mg/dL Glucose 132 H (74-99) mg/dL Calcium 7.7 L (8.4-10.2) mg/dL Adrenal panel 11/09/21 Range/Units 07:41 Sodium 137 (137-145) mmol/L Potassium 4.6 (3.5-5.1) mmol/L Chloride 108 H (98-107) mmol/L Carbon Dioxide 25 (22-30) mmol/L BUN 55 H (7-17) mg/dL Creatinine 1.78 H (0.52-1.04) mg/dL Glucose 132 H (74-99) mg/dL Calcium 7.7 L (8.4-10.2) mg/dL - Imaging Chest x-ray: report reviewed, image reviewed EKG: image reviewed Additional studies: Echo and heart catheterization films reviewed with Dr. De Leon Assessment and Plan Assessment: 1. Aortic stenosis with previous syncope 2. Chronic heart failure 3. Hypertension 4. Type 2 diabetes 5. CVA 6. Severe obstructive sleep apnea not currently on CPAP 7. COPD although never smoker, FEV1 60% of predicted 8. Recent pneumonia 9. Covid infection in August 2021 10. Hypothyroid 11. Chronic kidney disease 12. Paroxysmal atrial fibrillation on Eliquis for anticoagulation Plan: The patient was seen and examined at the bedside on the cardiac stepdown unit with 2 daughters present. Chart/diagnostics were reviewed with Dr. De Leon. The usual maninder-procedure course of treatment for TAVR was discussed in detail with the patient and her daughters, risks and benefits were reviewed, all questions were answered. We will order any outstanding tests including lab work, carotid dopplers. We will perform frailty testing while patient is inpatient. She will need dental clearance prior to any aortic valve procedure, this was discussed with the patient and her daughters and the patient does admit to seeing a dentist on a regular basis. The patient will need outpatient gated CT which needs to be completed a minimum of 5 days post heart catheterization due to dye load. In addition, patient will need hydration prior to CT due to kidney disease. Once all testing has been completed we will schedule the patient in the valve clinic for shared decision-making between cardiothoracic surgeon, bar and filler assembler, and the patient/family for recommendations regarding elective TAVR. Continued management per primary care, cardiology. More recommendations to follow. Thank you Dr. Hernandez for this consult. We look forward to working with you in the care of your patient I have personally seen and examined the patient, performed the documentation and the assessment and plan as written. Number of minutes spent on the visit: 30.
--- NOTE | 2021-11-09 15:43 | US ---
EXAMINATION TYPE: US carotid duplex BILAT DATE OF EXAM: 11/09/2021 COMPARISON: NONE CLINICAL HISTORY: pre-TAVR. Dizziness, pre- TAVR procedure EXAM MEASUREMENTS: RIGHT: Peak Systolic Velocity (PSV) cm/sec ----- Right CCA: 71.2 ----- Right ICA: 105.1 ----- Right ECA: 88.6 ICA/CCA ratio: 1.5 RIGHT: End Diastole cm/sec ----- Right CCA: 17.1 ----- Right ICA: 23.7 ----- Right ECA: 0.0 LEFT: Peak Systolic Velocity (PSV) cm/sec ----- Left CCA: 72.9 ----- Left ICA: 114.7 ----- Left ECA: 90.8 ICA/CCA ratio: 1.6 LEFT: End Diastole cm/sec ----- Left CCA: 18.0 ----- Left ICA: 22.8 ----- Left ECA: 0.0 VERTEBRALS (direction of flow): Right Vertebral: Antegrade Left Vertebral: Antegrade No significant stenosis seen bilaterally IMPRESSION: 1. Atheromatous plaquing without significant flow-limiting stenosis. This appears greatest in the rig ht carotid bulb. Criteria for Assigning % of Stenosis / Diameter reduction (Estimation based on the indirect measurements of the internal carotid artery velocities (ICA PSV). 1. Normal (no stenosis)=ICA PSV < 125 cm/s: ratio < 2.0: ICA EDV<40 cm/s. 2. Less than 50% stenosis=ICA PSV < 125 cm/s: ratio < 2.0: ICA EDV<40 cm/s. 3. 50 to 69% stenosis=ICA PSV of 125 to 230 cm/s: ration 2.0 ? 4.0: ICA EDV 40-100 cm/s. 4. Greater than 70% stenosis to near occlusion= ICA PSV > 230 cm/s: ratio > 4.0: ICA EDV > 100 cm/s. 5. Near occlusion= ICA PSV velocities may be low or undetectable: variable ratio and ICA EDV. 6. Total occlusion=unable to detect flow.
[2021-11-09 16:25] LABS: Glucose,Whole Blood 197 mg/dL (75-99)
[2021-11-09] MEDS: SODIUM CHLORIDE 0.9% 1,000 ML IV SCH ×2 (18:31→20:13)
[2021-11-09 19:37] LABS: Glucose,Whole Blood 199 mg/dL (75-99)
[2021-11-09] MEDS: ATORVASTATIN 80 MG TAB PO SCH (20:12)
[2021-11-09] MEDS: MELATONIN 5 MG TABLET PO SCH (20:12)
[2021-11-10 01:54] LABS: Glucose,Whole Blood 237 mg/dL (75-99)
[2021-11-10] MEDS: LEVOTHYROXINE 125 MCG TAB PO SCH (06:24)
[2021-11-10] MEDS: carvediloL 12.5 MG TAB PO SCH ×2 (06:24→16:46)
[2021-11-10] MEDS: POTASSIUM CHLORIDE ER 20 MEQ TAB.ER PO SCH (06:24)
[2021-11-10] MEDS: ACETAMINOPHEN TAB 325 MG TAB PO PRN (06:30)
[2021-11-10] MEDS: INSULIN ASPART (NovoLOG) 100 UNIT/ML VIAL SQ SCH ×4 (07:03→20:39)
[2021-11-10] MEDS: INSULN ASP PRT/INSULIN ASPART 100 UNIT/ML 10 ML VIAL SQ SCH ×2 (07:03→17:18)
[2021-11-10 07:04] LABS: Glucose,Whole Blood 262 mg/dL (75-99)
[2021-11-10 07:52] LABS: HCT 25.9 % (34.0-46.0); HGB 7.6 gm/dL (11.4-16.0); Hypochromasia Marked; MCH 28.1 pg (25.0-35.0); MCHC 29.5 g/dL (31.0-37.0); MCV 95.2 fL (80.0-100.0); Mean Platelet Volume 8.3; Platelet Count 308 k/uL (150-450); RBC 2.72 m/uL (3.80-5.40); RDW 14.1 % (11.5-15.5); WBC 11.9 k/uL (3.8-10.6)
[2021-11-10] MEDS: DOCUSATE 100 MG CAP PO SCH (08:01)
[2021-11-10] MEDS: PIOGLITAZONE 15 MG TAB PO SCH (08:01)
[2021-11-10] MEDS: MAGNESIUM OXIDE 400 MG TAB PO SCH (08:01)
[2021-11-10] MEDS: hydrALAZINE HCL 25 MG TAB PO SCH ×3 (08:01→20:09)
[2021-11-10] MEDS: lisinopriL 10 MG TAB PO SCH (08:01)
[2021-11-10] MEDS: ISOSORBIDE MONONITRATE ER 60 MG TAB.ER.24H PO SCH (08:01)
[2021-11-10] MEDS: SERTRALINE 25 MG TAB PO SCH (08:01)
[2021-11-10] MEDS: polyethylene glycoL 3350 17 GM POWD.PACK PO SCH (08:02)
[2021-11-10 08:11] LABS: African American GFR (CKD) 34 (>60 ml/min/1.73 sqM); Anion Gap 6 mmol/L; Blood Urea Nitrogen 52 mg/dL (7-17); Calcium 8.1 mg/dL (8.4-10.2); Carbon Dioxide 21 mmol/L (22-30); Chloride 109 mmol/L (98-107); Glucose 244 mg/dL (74-99); Magnesium 2.6 mg/dL (1.6-2.3); Non-African American GFR(CKD) 30 (>60 ml/min/1.73 sqM); Sodium 136 mmol/L (137-145)
[2021-11-10] MEDS ORDERED: ASPIRIN 325 MG TAB PO SCH (09:00)
--- NOTE | 2021-11-10 09:30 | US ---
EXAMINATION TYPE: US upper ext pseudo RT DATE OF EXAM: 11/10/2021 COMPARISON: NONE CLINICAL HISTORY: s/p cardiac cath, + hematoma, r/o pseudoaneurysm. right radial heart cath approach yesterday, pain and swelling in right arm Normal appearing radial artery with no sign of pseudoaneurysm or hematoma seen. Forearm edema noted. IMPRESSION: no sign of pseudoaneurysm
--- NOTE | 2021-11-10 09:31 | P.PN ---
Subjective Progress Note Date: 11/10/21 PROGRESS NOTE The patient is an 81-year-old female with a history of mild coronary disease, COPD, aortic stenosis who is readmitted to the hospital with symptoms of progressive dyspnea on exertion, mild troponin elevation. She underwent a BURKE yesterday that showed moderate to severe aortic stenosis. She was scheduled to undergo right and left heart catheterization today. She's feeling well this morning, laying supine without any chest discomfort or dyspnea. She denies any dizziness or palpitations. She continues to be on Lasix 40 mg daily, aspirin, Lipitor 80 mg daily, Coreg 12-1/2 mg twice a day, hydralazine 50 mg 3 times a day, isosorbide mononitrate 60 mg daily, lisinopril 10 mg daily, levothyroxin. November 10, The patient underwent cardiac catheterization yesterday was found to have mild CAD with severe aortic stenosis. She is complaining of right arm discomfort but denies any chest discomfort. She is mildly dyspneic. She denies any dizziness or palpitations. She continues to be in sinus mechanism. Her blood pressure and heart rate are stable. She was seen by Dr. De Leon yesterday for evaluation for aortic valve replacement and is scheduled to undergo further testing. She continues to be on carvedilol 12-1/2 mg twice a day, Lipitor 80 mg daily,isosorbide mononitrate 60 mg daily, lisinopril 10 mg daily, Actos PHYSICAL EXAMINATION: Blood pressure 130/60 with a heart rate 60 LUNGS: [Clear to auscultation] HEART: [Regular rate and rhythm, S1, S2. No S3. Systolic ejection murmur 3/6, mid peaking] ABDOMEN: [Soft, nontender, no organomegaly] EXTREMETIES: [Ecchymosis on the right brachial with intact radial and brachial pulse, right femoral no hematoma LAB: Potassium 5.0, BUN 52, creatinine 1.63, hemoglobin 7.2 IMPRESSION: 1. Severe aortic stenosis with mild coronary artery disease 2. Acute on chronic chronic kidney disease 3. History of hypertension 4. Hyperlipidemia 5. Anemia PLAN: 1. Obtain a Doppler study of the right upper extremity 2. Stop isosorbide 3. Increase physical activity 4. Follow hemoglobin and renal functions and depending on that restart diuretics 5. If stable probable discharge in the next 24-48 hours to be readmitted to undergo TAVR. Objective - Vital Signs Vital signs: Vital Signs Temp 97.7 F 11/10/21 07:40 Pulse 58 L 11/10/21 03:23 Resp 18 11/10/21 07:40 BP 162/72 11/10/21 07:40 Pulse Ox 97 11/10/21 07:40 Intake & Output 11/09/21 11/10/21 11/10/21 18:59 06:59 18:59 Intake Total 980 480 Output Total 200 300 Balance 780 180 Intake: IV 200 Oral 780 480 Output: Urine 200 300 Other: Voiding Method Bedside Commode Bedside Commode # Voids 1 1 # Bowel Movements 1 - Labs CBC & Chem 7: 11/10/21 07:15 11/10/21 07:15 Labs: Abnormal Lab Results - Last 24 Hours (Table) 11/09/21 11/09/21 11/09/21 Range/Units 12:15 16:24 19:33 WBC (3.8-10.6) k/uL RBC (3.80-5.40) m/uL Hgb (11.4-16.0) gm/dL Hct (34.0-46.0) % MCHC (31.0-37.0) g/dL Sodium (137-145) mmol/L Chloride (98-107) mmol/L Carbon Dioxide (22-30) mmol/L BUN (7-17) mg/dL Creatinine (0.52-1.04) mg/dL Glucose (74-99) mg/dL POC Glucose (mg/dL) 198 H 197 H 199 H (75-99) mg/dL Calcium (8.4-10.2) mg/dL Magnesium (1.6-2.3) mg/dL 11/10/21 11/10/21 11/10/21 Range/Units 01:52 07:00 07:15 WBC (3.8-10.6) k/uL RBC (3.80-5.40) m/uL Hgb (11.4-16.0) gm/dL Hct (34.0-46.0) % MCHC (31.0-37.0) g/dL Sodium 136 L (137-145) mmol/L Chloride 109 H (98-107) mmol/L Carbon Dioxide 21 L (22-30) mmol/L BUN 52 H (7-17) mg/dL Creatinine 1.63 H (0.52-1.04) mg/dL Glucose 244 H (74-99) mg/dL POC Glucose (mg/dL) 237 H 262 H (75-99) mg/dL Calcium 8.1 L (8.4-10.2) mg/dL Magnesium 2.6 H (1.6-2.3) mg/dL 11/10/21 Range/Units 07:15 WBC 11.9 H (3.8-10.6) k/uL RBC 2.72 L (3.80-5.40) m/uL Hgb 7.6 L (11.4-16.0) gm/dL Hct 25.9 L (34.0-46.0) % MCHC 29.5 L (31.0-37.0) g/dL Sodium (137-145) mmol/L Chloride (98-107) mmol/L Carbon Dioxide (22-30) mmol/L BUN (7-17) mg/dL Creatinine (0.52-1.04) mg/dL Glucose (74-99) mg/dL POC Glucose (mg/dL) (75-99) mg/dL Calcium (8.4-10.2) mg/dL Magnesium (1.6-2.3) mg/dL
[2021-11-10] MEDS: FUROSEMIDE 40 MG TAB PO SCH (10:10)
[2021-11-10 10:29] LABS: Hepatitis A Antibody IgM Nonreactive (Nonreactive); Hepatitis B Core IgM Nonreactive (Nonreactive); Hepatitis B Surface Antigen Nonreactive (Nonreactive); Hepatitis C IgG Antibody Nonreactive (Nonreactive)
[2021-11-10 11:15] LABS: Glucose,Whole Blood 250 mg/dL (75-99)
[2021-11-10 11:42] VITALS: BMI 36.8
[2021-11-10] MEDS: SODIUM CHLORIDE 0.9% 1,000 ML IV SCH ×2 (12:52→20:09)
--- NOTE | 2021-11-10 13:24 | P.PN ---
Subjective Progress Note Date: 11/10/21 Principal diagnosis: Acute on chronic hypoxic respiratory failure secondary to acute on chronic and just of heart failure with preserved LV function. This is an 81-year-old female patient and I was asked even with this patient because of shortness of breath and possibility of a pneumonia. Note that the patient has multiple medical problems and comorbidities. 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 Amaya for pain management. Asked hospitalization was in March 2021 for acute on chronic diastolic heart failure. At that time echocardiogram revealed EF of 55-60% with severe concentric left ventricular hypertrophy, moderate aortic stenosis, moderate mitral regurgitation, mild tricuspid regurgitation, mild pulmonary hypertension. The patient [place] with [place] members [place]. She was doing well. After arriving home, she became shortness of breath and the shortness of breath progressed over 3 hours and for that reason, she end up coming into the hospital. No palpitation. No angina. No loss of consciousness. No syncope. No pleurisy. No hemoptysis. She was feeling slightly nauseated. Denied having any angina. No cough or sputum production. No fevers. EMS was called to her house and the patient was brought to the ED. In the ED, the patient was placed on 2 L of O2 nasal cannula and later on to 3 L to make a saturation of around 97%. The patient had a chest x- ray that showed increased interstitial markings bilaterally especially lower lobes and possibly some small effusions and currently B-lines. The patient had a white second of 11.8 with hemoglobin of 10, normal correlation profile, normal metabolic profile, proBNP level was 2240, chest x-ray was noted, the patient was given sublingual nitroglycerin and this was given for some chest discomfort and elevated blood pressure. Blood pressure improved. She was given also the one that and she was also given Decadron. EKG showed no acute ischemic changes. Accordingly, the patient was admitted to the hospital for further care. Note that she had a quite significant elevated blood pressure at time of admission. She does have chronic kidney disease with a creatinine of 1.38 consistent with stage III kidney disease along with a mean of 30 and a sodium level of 139. White cell count is at 11.8. For now, the patient is on IV Lasix 40 mg every 12 hours. Already feeling better. Her weight is not and the patient is in a negative fluid balance. The patient had abnormal troponins and the patient had troponin of 0.2 and 0.3 respectively consistent with an acute non-ST segment elevation myocardial infarction. The EKG showing incomplete RBBB, LVH, sinus tachycardia. No acute ST segment elevation or depression. Reevaluated today on 11/07/21, patient is feeling better, breathing easier, r esponding well to diuretics. Patient underwent transesophageal echocardiography, patient was found to have moderate to severe aortic stenosis, normal systolic function, severely calcified aortic valve and moderate mitral and tricuspid regurgitation with moderate to severe pulmonary hypertension. No evidence of shunt was noted. Patient is now scheduled to have cardiac catheterization tomorrow. Pulmonary-reich she is feeling better breathing easier, and further cardiac workup is pending. Patient is on 2 L nasal cannula with O2 saturation in the 100%. Blood pressure is 94/54. WBC count is 21.6 hemoglobin is 9.3 electrolytes are normal renal profile is abnormal with BUN of 51 creatinine 1.86, up from 1.38 on admission. Urinalysis is suggestive of UTI. Reevaluated today on 11/08/2021, patient is doing well, she has no cough no wheezing no shortness of breath, she is presently on room air. She was supposed to have cardiac catheterization today however because of her renal status, her cardiac catheterization is put on hold, and in the meantime Lasix is on hold, and the patient is receiving IV fluids. Pulmonary-reich the patient has no cough no wheezing no shortness of breath, and her lungs are clear. WBC count is 11.7 hemoglobin is 8.2 BUN is today 60 creatinine 2.26, baseline was 1.38. And it was 1.86 yesterday. Patient was reevaluated today on 11/09/2021, continues to do well from the pulmonary perspective. Patient had cardiac catheterization today, she was found to have mild coronary artery disease, severe aortic stenosis, and mild pulmonary hypertension. Patient is now scheduled to be seen by Dr. De Leon on consultation, cardiology is recommending TAVR. Patient and family are very well aware of the recommendation, and the patient will be seen by surgery later t kym. Reviewed the report of her cardiac catheterization. Again there is minimal coronary artery disease, and reviewed the results of her BURKE patient may benefit from taVR. Today, no cough no wheezing. No shortness of breath. Patient was reevaluated today on 11/10/2021, patient is doing fairly well, she was basically cleared for discharge from cardiology, and I'm clearing her for discharge from the pulmonary perspective. Patient was seen by cardiothoracic surgery, and the plan is to have her follow-up with the surgeon in the valve clinic sometime in the next week or 2 weeks, in the meantime she would need the dentist clearance and some other diagnostic studies were ordered on the patient to be done on outpatient basis. Today the patient remains on room air, in no distress. She is a bit sleepy, but she was given Xanax earlier Objective - Vital Signs Vital signs: Vital Signs Temp 97.7 F 11/10/21 07:40 Pulse 56 L 11/10/21 12:50 Resp 16 11/10/21 12:50 BP 112/54 11/10/21 12:50 Pulse Ox 99 11/10/21 12:50 Intake & Output 11/09/21 11/10/21 11/10/21 18:59 06:59 18:59 Intake Total 980 480 Output Total 200 300 Balance 780 180 Weight 97.5 kg Intake: IV 200 Oral 780 480 Output: Urine 200 300 Other: Voiding Method Bedside Commode Bedside Commode # Voids 1 1 # Bowel Movements 1 - Exam Physical Exam: Revealed 81-year-old female in no distress, on room air. Head: Atraumatic, normocephalic. HEENT:[Neck is supple.] [No neck masses.] [No thyromegaly.] [No JVD.] Chest: [Symmetrical expansion clear throughout no crackles or rhonchi or wheezes Cardiac Exam: [Normal S1 and S2, no S3 gallop, 3/6 systolic murmur best heard over the aortic area. Abdomen: [Soft, nontender, no megaly, no rebound, no guarding, normal bowel sounds.] Extremities: [No clubbing, trace of bipedal edema, no cyanosis.] Neurological Exam: [No focal neurologic deficit.] Psychiatric: Little sleepy normal status examination. Skin: No rashes. - Labs CBC & Chem 7: 11/10/21 07:15 11/10/21 07:15 Labs: Abnormal Lab Results - Last 24 Hours (Table) 11/09/21 11/09/21 11/10/21 Range/Units 16:24 19:33 01:52 WBC (3.8-10.6) k/uL RBC (3.80-5.40) m/uL Hgb (11.4-16.0) gm/dL Hct (34.0-46.0) % MCHC (31.0-37.0) g/dL Sodium (137-145) mmol/L Chloride (98-107) mmol/L Carbon Dioxide (22-30) mmol/L BUN (7-17) mg/dL Creatinine (0.52-1.04) mg/dL Glucose (74-99) mg/dL POC Glucose (mg/dL) 197 H 199 H 237 H (75-99) mg/dL Hemoglobin A1c (0.0-6.0) % Calcium (8.4-10.2) mg/dL Magnesium (1.6-2.3) mg/dL 11/10/21 11/10/21 11/10/21 Range/Units 07:00 07:15 07:15 WBC (3.8-10.6) k/uL RBC (3.80-5.40) m/uL Hgb (11.4-16.0) gm/dL Hct (34.0-46.0) % MCHC (31.0-37.0) g/dL Sodium 136 L (137-145) mmol/L Chloride 109 H (98-107) mmol/L Carbon Dioxide 21 L (22-30) mmol/L BUN 52 H (7-17) mg/dL Creatinine 1.63 H (0.52-1.04) mg/dL Glucose 244 H (74-99) mg/dL POC Glucose (mg/dL) 262 H (75-99) mg/dL Hemoglobin A1c 8.0 H (0.0-6.0) % Calcium 8.1 L (8.4-10.2) mg/dL Magnesium 2.6 H (1.6-2.3) mg/dL 11/10/21 11/10/21 Range/Units 07:15 11:13 WBC 11.9 H (3.8-10.6) k/uL RBC 2.72 L (3.80-5.40) m/uL Hgb 7.6 L (11.4-16.0) gm/dL Hct 25.9 L (34.0-46.0) % MCHC 29.5 L (31.0-37.0) g/dL Sodium (137-145) mmol/L Chloride (98-107) mmol/L Carbon Dioxide (22-30) mmol/L BUN (7-17) mg/dL Creatinine (0.52-1.04) mg/dL Glucose (74-99) mg/dL POC Glucose (mg/dL) 250 H (75-99) mg/dL Hemoglobin A1c (0.0-6.0) % Calcium (8.4-10.2) mg/dL Magnesium (1.6-2.3) mg/dL Assessment and Plan Assessment: Impression Acute on chronic hypoxic respiratory failure secondary to acute congestive heart failure secondary to severe aortic stenosis Chronic kidney disease stage III acute on chronic kidney injury Type 2 diabetes Previous history of CVA Hypothyroidism Benign essential hypertension Dyslipidemia Paroxysmal atrial fibrillation Moderate severe aortic stenosis and pulmonary hypertension Anemia of chronic disease Mild coronary artery disease Recommendation: Agree with discharge planning and follow-up on outpatient basis with the cardiothoracic surgeon to be considered for taVR. Continue present supportive care measures Will follow as needed Time with Patient: Less than 30
--- NOTE | 2021-11-10 15:06 | P.PN ---
Subjective Progress Note Date: 11/10/21 Hospital course: Patient is a very pleasant 81-year-old female with a past medical history of CAD, hypertension, hyperlipidemia, atrial fibrillation on anticoagulation with Eliquis, moderate to severe aortic stenosis, chronic diastolic heart failure with previously known EF between 55 and 60%, type 2 insulin-dependent diabetes mellitus, prior CVA, chronic kidney disease stage III, COPD, obstructive sleep apnea, and degenerative disc disease. Patient presented to the hospital on 11/06/21 with a chief complaint of shortness of breath and dizziness after a fam [facility]hen trip [facility]. In the emergency department a chest x-ray was completed revealing basilar airspace opacities right greater than left. EKG completed showing sinus tachycardia at [address] depression in inferior lateral leads I, II, aVL, V5, and V6 which is a new finding when compared to EKG completed 10/24/21. Troponins elevated with initial troponin 0.406, 0.320, and 0.256. ProBNP 2240. CBC showing mild leukocytosis with WBC count of 11.8 and normocytic normochromic anemia with hemoglobin of 10.0. BMP consistent with stage III chronic kidney disease with baseline creatinine levels. Patient was admitted under hospitalist services for CHF exacerbation and NSTEMI with consult ation to cardiology. Patient underwent cardiac cath on 11/09/21. Cardiac cath revealed mild coronary artery disease with severe aortic stenosis and mild pulmonary hypertension, cardiology is evaluating for possible aortic valve replacement by TAVR. Cardiothoracic surgery also consulted. Physical exam: Patient was seen and fully evaluated at bedside this morning. Ultrasound of right upper extremity completed secondary to patient's reports of right arm pain and swelling. Duplex scan of right upper extremity negative showing no signs of pseudoaneurysm or hematoma. Morning labs revealed worsening anemia with hemoglobin of 7.6, we'll repeat CBC this afternoon and again in the morning for close monitoring. Renal function continues to slowly improve with BUN of 52, creatinine 1.63, and GFR of 30.. Patient showing no signs of acute distress at this time and denies having any complaints. Vital signs unremarkable. Patient's daughter at bedside and all questions answered at this time. Vital signs reviewed and stable. General: Nontoxic, no distress and appears stated age. Derm: Skin warm and dry, normal coloration for ethnicity. Head: Atraumatic, normocephalic and symmetric. Eyes: EOMs intact, no lid lag, and anicteric sclera Mouth: no lip lesions, mucus membranes moist Cardiovascular: regular rate and rhythm with normal S1S2, systolic murmur, positive posterior tibial pulses bilaterally, and cap refill < 2 seconds. Lungs: Respirations even, regular, and unlabored on room air. Lungs CTA bilaterally, no rhonchi, no rales, no wheezing, and no accessory muscle usage. Abdominal: soft, nontender to palpation, no guarding, no appreciable organomegaly Ext: ROM intact. No gross muscle atrophy, no edema, no contractures Neuro: Speech clear, face symmetrical and CN II-XII grossly intact with no noted focal neuro deficits Psych: Alert and oriented to person, place, time, and situation. Appropriate and pleasant affect. Assessment and Plan of Care: Acute diastolic heart failure exacerbation NSTEMI Severe aortic stenosis Mild pulmonary hypertension Paroxysmal atrial fibrillation -Cardiology following, evaluating for TAVR -Cardiothoracic surgery following, evaluating for TAVR -Continue Telemetry monitoring -Troponins elevated at 0.406, 0.320, 0.256. -ProBNP 2240 -Daily weights -Close monitoring of I's and O's -Cardiac diet -Lasix 40 mg PO daily -Imdur was discontinued. Continue daily cardiac medication regimen consisting of: Aspirin, atorvastatin, carvedilol, lisinopril, and hydralazine -Continued close monitoring of electrolytes while diuresing. Acute kidney injury on Stage III chronic kidney disease, improved with IV hydration -Continue close monitoring with repeat a.m. labs. Hyperkalemia, resolved with IV hydration -Secondary to acute kidney injury, resolved with IV fluid hydration. COPD, lifelong smoking history Obstructive sleep apnea -Encourage incentive spirometry 10-15 times hourly while awake. -Provide oxygenation as needed to maintain SpO2 equal to or greater than 92%. -DuoNeb nebs as needed for shortness of breath and/or wheezing Hypertension -Monitor vital signs and continue daily medication regimen with lisinopril, isosorbide mononitrate, carvedilol and hydralazine Type 2 insulin-dependent diabetes mellitus, glycemic protocol with NovoLog sliding scale and continue scheduled 70/30 insulin and aspart with meals. Degenerative disc disease resulting in chronic back pain, follows with pain management with Dr. Amaya. Provide symptomatic care and pain management. Chronic anemia resulting from chronic disease, continue daily medication regimen with ferrous sulfate 325 mg daily. CODE STATUS: Full code DVT prophylaxis: Heparin Discussed with: Patient, patient's 2 daughters at bedside and RN Anticipated discharge date: Clinical course to determine Anticipated discharge place: home A total of 39 minutes was spent on the care of this complex patient more than 50% of the time was spent in counseling and care coordination. Objective - Vital Signs Vital signs: Vital Signs Temp 97.7 F 11/10/21 07:40 Pulse 58 L 11/10/21 03:23 Resp 18 11/10/21 07:40 BP 162/72 11/10/21 07:40 Pulse Ox 97 11/10/21 07:40 Intake & Output 11/09/21 11/10/21 11/10/21 18:59 06:59 18:59 Intake Total 980 480 Output Total 200 300 Balance 780 180 Weight 97.5 kg Intake: IV 200 Oral 780 480 Output: Urine 200 300 Other: Voiding Method Bedside Commode Bedside Commode # Voids 1 1 # Bowel Movements 1 - Labs CBC & Chem 7: 11/10/21 07:15 11/10/21 07:15 Labs: Abnormal Lab Results - Last 24 Hours (Table) 11/09/21 11/09/21 11/10/21 Range/Units 16:24 19:33 01:52 WBC (3.8-10.6) k/uL RBC (3.80-5.40) m/uL Hgb (11.4-16.0) gm/dL Hct (34.0-46.0) % MCHC (31.0-37.0) g/dL Sodium (137-145) mmol/L Chloride (98-107) mmol/L Carbon Dioxide (22-30) mmol/L BUN (7-17) mg/dL Creatinine (0.52-1.04) mg/dL Glucose (74-99) mg/dL POC Glucose (mg/dL) 197 H 199 H 237 H (75-99) mg/dL Hemoglobin A1c (0.0-6.0) % Calcium (8.4-10.2) mg/dL Magnesium (1.6-2.3) mg/dL 11/10/21 11/10/21 11/10/21 Range/Units 07:00 07:15 07:15 WBC (3.8-10.6) k/uL RBC (3.80-5.40) m/uL Hgb (11.4-16.0) gm/dL Hct (34.0-46.0) % MCHC (31.0-37.0) g/dL Sodium 136 L (137-145) mmol/L Chloride 109 H (98-107) mmol/L Carbon Dioxide 21 L (22-30) mmol/L BUN 52 H (7-17) mg/dL Creatinine 1.63 H (0.52-1.04) mg/dL Glucose 244 H (74-99) mg/dL POC Glucose (mg/dL) 262 H (75-99) mg/dL Hemoglobin A1c 8.0 H (0.0-6.0) % Calcium 8.1 L (8.4-10.2) mg/dL Magnesium 2.6 H (1.6-2.3) mg/dL 11/10/21 11/10/21 Range/Units 07:15 11:13 WBC 11.9 H (3.8-10.6) k/uL RBC 2.72 L (3.80-5.40) m/uL Hgb 7.6 L (11.4-16.0) gm/dL Hct 25.9 L (34.0-46.0) % MCHC 29.5 L (31.0-37.0) g/dL Sodium (137-145) mmol/L Chloride (98-107) mmol/L Carbon Dioxide (22-30) mmol/L BUN (7-17) mg/dL Creatinine (0.52-1.04) mg/dL Glucose (74-99) mg/dL POC Glucose (mg/dL) 250 H (75-99) mg/dL Hemoglobin A1c (0.0-6.0) % Calcium (8.4-10.2) mg/dL Magnesium (1.6-2.3) mg/dL
[2021-11-10 15:18] LABS: Basophils % (A) 0 %; Eosinophils # (A) 0.2 k/uL (0-0.7); Eosinophils % (A) 2 %; HCT 21.8 % (34.0-46.0); Hypochromasia Marked; Lymphocytes # (A) 0.9 k/uL (1.0-4.8); Lymphocytes % (A) 7 %; MCH 28.3 pg (25.0-35.0); MCHC 30.4 g/dL (31.0-37.0); MCV 93.1 fL (80.0-100.0); Monocytes # (A) 1.1 k/uL (0-1.0); Monocytes % (A) 9 %; Neutrophils % (A) 77 %; Platelet Count 258 k/uL (150-450); RBC 2.34 m/uL (3.80-5.40); RDW 14.4 % (11.5-15.5); WBC 11.7 k/uL (3.8-10.6)
[2021-11-10 15:23] LABS: Chol/HDL Ratio 2.73 Ratio; LDL Cholesterol,Calculated 57.4 mg/dL (0.0-131.0)
[2021-11-10 15:25] LABS: HGB 6.6 gm/dL (11.4-16.0)
[2021-11-10] MEDS: APIXABAN 2.5 MG TABLET PO SCH (16:41)
[2021-11-10 17:00] LABS: Glucose,Whole Blood 180 mg/dL (75-99)
[2021-11-10] MEDS: ATORVASTATIN 80 MG TAB PO SCH (20:09)
[2021-11-10] MEDS: MELATONIN 5 MG TABLET PO SCH (20:09)
[2021-11-10] MEDS ORDERED: INSULIN ASPART (NovoLOG) 100 UNIT/ML VIAL SQ ONE (20:34)
[2021-11-10 20:42] LABS: Glucose,Whole Blood 419 mg/dL (75-99)
[2021-11-10 22:59] LABS: Glucose,Whole Blood 146 mg/dL (75-99)
[2021-11-11 02:03] LABS: Glucose,Whole Blood 61 mg/dL (75-99)
[2021-11-11 02:20] LABS: Glucose,Whole Blood 79 mg/dL (75-99)
[2021-11-11 03:51] LABS: Glucose,Whole Blood 165 mg/dL (75-99)
[2021-11-11] MEDS: carvediloL 12.5 MG TAB PO SCH ×2 (06:35→17:39)
[2021-11-11] MEDS: LEVOTHYROXINE 125 MCG TAB PO SCH (06:35)
[2021-11-11] MEDS: POTASSIUM CHLORIDE ER 20 MEQ TAB.ER PO SCH (06:35)
[2021-11-11 07:10] LABS: Glucose,Whole Blood 209 mg/dL (75-99)
[2021-11-11] MEDS: INSULIN ASPART (NovoLOG) 100 UNIT/ML VIAL SQ SCH ×4 (07:25→21:31)
[2021-11-11] MEDS: INSULN ASP PRT/INSULIN ASPART 100 UNIT/ML 10 ML VIAL SQ SCH ×2 (07:25→17:40)
[2021-11-11] MEDS: APIXABAN 2.5 MG TABLET PO SCH ×3 (08:20→21:31)
[2021-11-11] MEDS: DOCUSATE 100 MG CAP PO SCH (08:20)
[2021-11-11] MEDS: FUROSEMIDE 40 MG TAB PO SCH (08:20)
[2021-11-11] MEDS: lisinopriL 10 MG TAB PO SCH (08:20)
[2021-11-11] MEDS: MAGNESIUM OXIDE 400 MG TAB PO SCH (08:20)
[2021-11-11] MEDS: hydrALAZINE HCL 25 MG TAB PO SCH ×3 (08:20→21:31)
[2021-11-11] MEDS: PIOGLITAZONE 15 MG TAB PO SCH (08:20)
[2021-11-11] MEDS: SERTRALINE 25 MG TAB PO SCH (08:20)
[2021-11-11] MEDS: polyethylene glycoL 3350 17 GM POWD.PACK PO SCH (08:22)
--- NOTE | 2021-11-11 09:45 | P.PN ---
Subjective Progress Note Date: 11/11/21 PROGRESS NOTE The patient is an 81-year-old female with a history of mild coronary disease, COPD, aortic stenosis who is readmitted to the hospital with symptoms of progressive dyspnea on exertion, mild troponin elevation. She underwent a BURKE yesterday that showed moderate to severe aortic stenosis. She was scheduled to undergo right and left heart catheterization today. She's feeling well this morning, laying supine without any chest discomfort or dyspnea. She denies any dizziness or palpitations. She continues to be on Lasix 40 mg daily, aspirin, Lipitor 80 mg daily, Coreg 12-1/2 mg twice a day, hydralazine 50 mg 3 times a day, isosorbide mononitrate 60 mg daily, lisinopril 10 mg daily, levothyroxin. November 10, The patient underwent cardiac catheterization yesterday was found to have mild CAD with severe aortic stenosis. She is complaining of right arm discomfort but denies any chest discomfort. She is mildly dyspneic. She denies any dizziness or palpitations. She continues to be in sinus mechanism. Her blood pressure and heart rate are stable. She was seen by Dr. De Leon yesterday for evaluation for aortic valve replacement and is scheduled to undergo further testing. She continues to be on carvedilol 12-1/2 mg twice a day, Lipitor 80 mg daily,isosorbide mononitrate 60 mg daily, lisinopril 10 mg daily, Actos November 11: The patient continues to complain of right arm discomfort. She had a hematoma at the site of her brachial access. She was transfused yesterday. She is feeling better this morning, continues to have some arm discomfort but better. The pulse is normal. She had an ultrasound that showed no evidence of pseudoaneurysm. She denies any dizziness or palpitations. She has mild dyspnea and continues to be in sinus mechanism. She denies any nausea or vomiting. She continues to be on Lasix 40 mg daily, hydralazine 25 mg 3 times a day, lisinopril 10 mg daily, Actos 15 mg daily, Coreg 12-1/2 mg twice a day, atorvastatin 80 mg daily,Eliquis 2-1/2 mg twice a day. PHYSICAL EXAMINATION: Blood pressure 150/70 with a heart rate 64 LUNGS: Clear to auscultation HEART: Regular rate and rhythm, S1, S2. No S3. Systolic ejection murmur /, mid peaking ABDOMEN: Soft, nontender, no organomegaly EXTREMETIES: [Ecchymosis on the right brachial with intact radial and brachial pulse, hematoma on the right upper arm LAB: Pending IMPRESSION: 1. Severe aortic stenosis with mild coronary artery disease 2. Acute on chronic chronic kidney disease 3. History of hypertension 4. Hyperlipidemia 5. Anemia, worsened by the hematoma PLAN: 1. Continue present therapy 2. Follow renal functions and hemoglobin 3. If stable probable discharge to rehab tomorrow to be reevaluated as an outpatient to proceed with transaortic aortic valve replacement 4. Increase physical activity 5. Depending on her progress further recommendations will be made. Objective - Vital Signs Vital signs: Vital Signs Temp 98.0 F 11/11/21 03:23 Pulse 64 11/11/21 08:00 Resp 16 11/11/21 08:00 BP 150/73 11/11/21 08:00 Pulse Ox 94 L 11/11/21 08:00 Intake & Output 11/10/21 11/11/21 11/11/21 18:59 06:59 18:59 Intake Total 120 310 Output Total 250 450 Balance -130 -140 Weight 97.5 kg Intake: Oral 120 Blood Product 310 Rc As-1 Unit 310 [id number] Output: Urine 250 450 Other: Voiding Method Bedside Commode # Voids 2 4 - Labs CBC & Chem 7: 11/10/21 15:05 11/10/21 07:15 Labs: Abnormal Lab Results - Last 24 Hours (Table) 11/10/21 11/10/21 11/10/21 Range/Units 07:15 07:15 11:13 WBC (3.8-10.6) k/uL RBC (3.80-5.40) m/uL Hgb (11.4-16.0) gm/dL Hct (34.0-46.0) % MCHC (31.0-37.0) g/dL Neutrophils # (1.3-7.7) k/uL Lymphocytes # (1.0-4.8) k/uL Monocytes # (0-1.0) k/uL POC Glucose (mg/dL) 250 H (75-99) mg/dL Hemoglobin A1c 8.0 H (0.0-6.0) % Triglycerides 207.00 H (0.00-149.00) mg/dL VLDL Cholesterol, Calc 41.40 H (5.00-40.00) mg/dL Crossmatch 11/10/21 11/10/21 11/10/21 Range/Units 15:05 16:36 16:53 WBC 11.7 H (3.8-10.6) k/uL RBC 2.34 L (3.80-5.40) m/uL Hgb 6.6 L* (11.4-16.0) gm/dL Hct 21.8 L (34.0-46.0) % MCHC 30.4 L (31.0-37.0) g/dL Neutrophils # 9.0 H (1.3-7.7) k/uL Lymphocytes # 0.9 L (1.0-4.8) k/uL Monocytes # 1.1 H (0-1.0) k/uL POC Glucose (mg/dL) 180 H (75-99) mg/dL Hemoglobin A1c (0.0-6.0) % Triglycerides (0.00-149.00) mg/dL VLDL Cholesterol, Calc (5.00-40.00) mg/dL Crossmatch See Detail 11/10/21 11/10/21 11/11/21 Range/Units 20:21 22:48 01:52 WBC (3.8-10.6) k/uL RBC (3.80-5.40) m/uL Hgb (11.4-16.0) gm/dL Hct (34.0-46.0) % MCHC (31.0-37.0) g/dL Neutrophils # (1.3-7.7) k/uL Lymphocytes # (1.0-4.8) k/uL Monocytes # (0-1.0) k/uL POC Glucose (mg/dL) 419 H 146 H 61 L (75-99) mg/dL Hemoglobin A1c (0.0-6.0) % Triglycerides (0.00-149.00) mg/dL VLDL Cholesterol, Calc (5.00-40.00) mg/dL Crossmatch 11/11/21 11/11/21 Range/Units 03:42 07:09 WBC (3.8-10.6) k/uL RBC (3.80-5.40) m/uL Hgb (11.4-16.0) gm/dL Hct (34.0-46.0) % MCHC (31.0-37.0) g/dL Neutrophils # (1.3-7.7) k/uL Lymphocytes # (1.0-4.8) k/uL Monocytes # (0-1.0) k/uL POC Glucose (mg/dL) 165 H 209 H (75-99) mg/dL Hemoglobin A1c (0.0-6.0) % Triglycerides (0.00-149.00) mg/dL VLDL Cholesterol, Calc (5.00-40.00) mg/dL Crossmatch
[2021-11-11 09:52] LABS: HCT 24.7 % (34.0-46.0); HGB 7.7 gm/dL (11.4-16.0); Hypochromasia Marked; MCH 28.8 pg (25.0-35.0); MCV 92.8 fL (80.0-100.0); Mean Platelet Volume 7.7; Platelet Count 251 k/uL (150-450); Poikilocytosis Slight; RBC 2.67 m/uL (3.80-5.40); RDW 14.4 % (11.5-15.5); WBC 10.7 k/uL (3.8-10.6)
[2021-11-11 10:30] LABS: Potassium 5.1 mmol/L (3.5-5.1)
[2021-11-11 11:58] LABS: Glucose,Whole Blood 141 mg/dL (75-99)
[2021-11-11] MEDS: SODIUM CHLORIDE 0.9% 1,000 ML IV SCH ×2 (12:04→21:36)
[2021-11-11] MEDS: ACETAMINOPHEN TAB 325 MG TAB PO PRN (14:20)
--- NOTE | 2021-11-11 14:42 | P.PN ---
Subjective Progress Note Date: 11/11/21 Patient complaining of significant right upper extremity pain on the side that the did the angiogram, which began after her angiogram. This extremity was already ultrasounded, and was negative for pseudoaneurysm. Gen: awake, alert HEENT: normocephalic, atraumatic, good hearing acuity, moist mucous membranes Resp: good air exchange, breathing comfortably with no accessory muscle use CVS: good distal perfusion x 4, GI: soft, NTTP, ND : no SPT, no CVAT, kurtz catheter not present MSK: no pitting edema, no clubbing, right upper extremity ecchymosis Neuro: non-focal, moving all extremities Psych: cooperative, euthymic mood Assessment/plan: Acute diastolic heart failure exacerbation NSTEMI Severe aortic stenosis Mild pulmonary hypertension Paroxysmal atrial fibrillation -Cardiology following, evaluating for TAVR, outpatient follow-up -Cardiothoracic surgery following, evaluating for TAVR, outpatient follow-up -Continue Telemetry monitoring -Troponins elevated at 0.406, 0.320, 0.256. -ProBNP 2240 -Daily weights -Close monitoring of I's and O's -Cardiac diet -Lasix 40 mg PO daily -Imdur was discontinued. Continue daily cardiac medication regimen consisting of: Aspirin, atorvastatin, carvedilol, lisinopril, and hydralazine -Continued close monitoring of electrolytes while diuresing. -Outpatient follow-up for TAVR Acute kidney injury on Stage III chronic kidney disease, improved with IV hydration -Continue close monitoring with repeat a.m. labs. COPD, lifelong smoking history Obstructive sleep apnea -Encourage incentive spirometry 10-15 times hourly while awake. -Provide oxygenation as needed to maintain SpO2 equal to or greater than 92%. -DuoNeb nebs as needed for shortness of breath and/or wheezing Hypertension -Monitor vital signs and continue daily medication regimen with lisinopril, isosorbide mononitrate, carvedilol and hydralazine Type 2 insulin-dependent diabetes mellitus, glycemic protocol with NovoLog sliding scale and continue scheduled 70/30 insulin and aspart with meals. Degenerative disc disease resulting in chronic back pain, follows with pain management with Dr. Amaya. Provide symptomatic care and pain management. Chronic anemia resulting from chronic disease, continue daily medication regimen with ferrous sulfate 325 mg daily. CODE STATUS: Full code DVT prophylaxis: Heparin Anticipated discharge date: Clinical course to determine Anticipated discharge place: home Objective - Vital Signs Vital signs: Vital Signs Temp 97.8 F 11/11/21 12:00 Pulse 57 L 11/11/21 12:00 Resp 16 11/11/21 12:00 BP 160/84 11/11/21 12:00 Pulse Ox 95 11/11/21 12:00 Intake & Output 11/10/21 11/11/21 11/11/21 18:59 06:59 18:59 Intake Total 120 310 720 Output Total 250 450 250 Balance -130 -140 470 Weight 97.5 kg Intake: Oral 120 720 Blood Product 310 Rc As-1 Unit 310 [id number] Output: Urine 250 450 250 Other: Voiding Method Bedside Commode # Voids 2 4 - Labs CBC & Chem 7: 11/11/21 09:28 11/11/21 09:28 Labs: Abnormal Lab Results - Last 24 Hours (Table) 11/10/21 11/10/21 11/10/21 Range/Units 07:15 15:05 16:36 WBC 11.7 H (3.8-10.6) k/uL RBC 2.34 L (3.80-5.40) m/uL Hgb 6.6 L* (11.4-16.0) gm/dL Hct 21.8 L (34.0-46.0) % MCHC 30.4 L (31.0-37.0) g/dL Neutrophils # 9.0 H (1.3-7.7) k/uL Lymphocytes # 0.9 L (1.0-4.8) k/uL Monocytes # 1.1 H (0-1.0) k/uL Chloride (98-107) mmol/L BUN (7-17) mg/dL Creatinine (0.52-1.04) mg/dL Glucose (74-99) mg/dL POC Glucose (mg/dL) (75-99) mg/dL Calcium (8.4-10.2) mg/dL Triglycerides 207.00 H (0.00-149.00) mg/dL VLDL Cholesterol, Calc 41.40 H (5.00-40.00) mg/dL Crossmatch See Detail 11/10/21 11/10/21 11/10/21 Range/Units 16:53 20:21 22:48 WBC (3.8-10.6) k/uL RBC (3.80-5.40) m/uL Hgb (11.4-16.0) gm/dL Hct (34.0-46.0) % MCHC (31.0-37.0) g/dL Neutrophils # (1.3-7.7) k/uL Lymphocytes # (1.0-4.8) k/uL Monocytes # (0-1.0) k/uL Chloride (98-107) mmol/L BUN (7-17) mg/dL Creatinine (0.52-1.04) mg/dL Glucose (74-99) mg/dL POC Glucose (mg/dL) 180 H 419 H 146 H (75-99) mg/dL Calcium (8.4-10.2) mg/dL Triglycerides (0.00-149.00) mg/dL VLDL Cholesterol, Calc (5.00-40.00) mg/dL Crossmatch 11/11/21 11/11/21 11/11/21 Range/Units 01:52 03:42 07:09 WBC (3.8-10.6) k/uL RBC (3.80-5.40) m/uL Hgb (11.4-16.0) gm/dL Hct (34.0-46.0) % MCHC (31.0-37.0) g/dL Neutrophils # (1.3-7.7) k/uL Lymphocytes # (1.0-4.8) k/uL Monocytes # (0-1.0) k/uL Chloride (98-107) mmol/L BUN (7-17) mg/dL Creatinine (0.52-1.04) mg/dL Glucose (74-99) mg/dL POC Glucose (mg/dL) 61 L 165 H 209 H (75-99) mg/dL Calcium (8.4-10.2) mg/dL Triglycerides (0.00-149.00) mg/dL VLDL Cholesterol, Calc (5.00-40.00) mg/dL Crossmatch 11/11/21 11/11/21 11/11/21 Range/Units 09:28 09:28 11:46 WBC 10.7 H (3.8-10.6) k/uL RBC 2.67 L (3.80-5.40) m/uL Hgb 7.7 L (11.4-16.0) gm/dL Hct 24.7 L (34.0-46.0) % MCHC (31.0-37.0) g/dL Neutrophils # (1.3-7.7) k/uL Lymphocytes # (1.0-4.8) k/uL Monocytes # (0-1.0) k/uL Chloride 110 H (98-107) mmol/L BUN 44 H (7-17) mg/dL Creatinine 1.57 H (0.52-1.04) mg/dL Glucose 184 H (74-99) mg/dL POC Glucose (mg/dL) 141 H (75-99) mg/dL Calcium 8.0 L (8.4-10.2) mg/dL Triglycerides (0.00-149.00) mg/dL VLDL Cholesterol, Calc (5.00-40.00) mg/dL Crossmatch
[2021-11-11 15:37] LABS: HCT 24.4 % (34.0-46.0); HGB 7.4 gm/dL (11.4-16.0); Hypochromasia Marked; MCH 28.2 pg (25.0-35.0); MCHC 30.4 g/dL (31.0-37.0); MCV 92.7 fL (80.0-100.0); Mean Platelet Volume 8.1; Platelet Count 253 k/uL (150-450); Poikilocytosis Slight; RBC 2.63 m/uL (3.80-5.40); RDW 14.1 % (11.5-15.5); WBC 11.3 k/uL (3.8-10.6)
[2021-11-11 16:24] LABS: Glucose,Whole Blood 118 mg/dL (75-99)
[2021-11-11] MEDS: ALBUTEROL NEBULIZED 2.5 MG/3 ML INHALATION PRN (20:43)
[2021-11-11 20:47] LABS: Glucose,Whole Blood 183 mg/dL (75-99)
[2021-11-11] MEDS: ATORVASTATIN 80 MG TAB PO SCH (21:31)
[2021-11-11] MEDS: MELATONIN 5 MG TABLET PO SCH (21:31)
[2021-11-12 01:32] LABS: Glucose,Whole Blood 132 mg/dL (75-99)
[2021-11-12] MEDS: ACETAMINOPHEN TAB 325 MG TAB PO PRN ×3 (01:34→16:00)
[2021-11-12] MEDS: carvediloL 12.5 MG TAB PO SCH ×2 (06:25→15:59)
[2021-11-12] MEDS: LEVOTHYROXINE 125 MCG TAB PO SCH (06:25)
[2021-11-12] MEDS: POTASSIUM CHLORIDE ER 20 MEQ TAB.ER PO SCH (06:27)
[2021-11-12 08:16] LABS: Glucose,Whole Blood 201 mg/dL (75-99)
[2021-11-12] MEDS: MAGNESIUM OXIDE 400 MG TAB PO SCH (08:17)
[2021-11-12] MEDS: FUROSEMIDE 40 MG TAB PO SCH (08:18)
[2021-11-12] MEDS: hydrALAZINE HCL 25 MG TAB PO SCH ×3 (08:18→21:19)
[2021-11-12] MEDS: INSULIN ASPART (NovoLOG) 100 UNIT/ML VIAL SQ SCH ×4 (08:18→21:18)
[2021-11-12] MEDS: INSULN ASP PRT/INSULIN ASPART 100 UNIT/ML 10 ML VIAL SQ SCH ×2 (08:18→17:04)
[2021-11-12] MEDS: DOCUSATE 100 MG CAP PO SCH (08:18)
[2021-11-12] MEDS: APIXABAN 2.5 MG TABLET PO SCH ×2 (08:18→21:18)
[2021-11-12] MEDS: SERTRALINE 25 MG TAB PO SCH (08:18)
[2021-11-12] MEDS: ASPIRIN 81 MG PO SCH (08:18)
[2021-11-12] MEDS: lisinopriL 10 MG TAB PO SCH (08:18)
[2021-11-12] MEDS: PIOGLITAZONE 15 MG TAB PO SCH (08:24)
[2021-11-12] MEDS: polyethylene glycoL 3350 17 GM POWD.PACK PO SCH (08:24)
[2021-11-12 09:55] LABS: HCT 23.8 % (34.0-46.0); HGB 7.4 gm/dL (11.4-16.0); Hypochromasia Marked; MCH 28.8 pg (25.0-35.0); MCHC 31.2 g/dL (31.0-37.0); MCV 92.2 fL (80.0-100.0); Mean Platelet Volume 8.1; Platelet Count 254 k/uL (150-450); RBC 2.58 m/uL (3.80-5.40); RDW 14.3 % (11.5-15.5); WBC 9.1 k/uL (3.8-10.6)
--- NOTE | 2021-11-12 09:59 | P.PN ---
Subjective Progress Note Date: 11/12/21 Patient complaining of significant right upper extremity pain on the side that the did the angiogram, which began after her angiogram, but this is improving today. No new issues overnight. Pending placement at this point. Gen: awake, alert HEENT: normocephalic, atraumatic, good hearing acuity, moist mucous membranes Resp: good air exchange, breathing comfortably with no accessory muscle use CVS: good distal perfusion x 4, GI: soft, NTTP, ND : no SPT, no CVAT, kurtz catheter not present MSK: no pitting edema, no clubbing, right upper extremity ecchymosis Neuro: non-focal, moving all extremities Psych: cooperative, euthymic mood Assessment/plan: Acute diastolic heart failure exacerbation NSTEMI Severe aortic stenosis Mild pulmonary hypertension Paroxysmal atrial fibrillation -Cardiology following, evaluating for TAVR, outpatient follow-up -Cardiothoracic surgery following, evaluating for TAVR, outpatient follow-up -Continue Telemetry monitoring -Troponins elevated at 0.406, 0.320, 0.256. -ProBNP 2240 -Daily weights -Close monitoring of I's and O's -Cardiac diet -Lasix 40 mg PO daily -Imdur was discontinued. Continue daily cardiac medication regimen consisting of: Aspirin, atorvastatin, carvedilol, lisinopril, and hydralazine -Continued close monitoring of electrolytes while diuresing. -Outpatient follow-up for TAVR Acute kidney injury on Stage III chronic kidney disease, improved with IV hydration -Continue close monitoring with repeat a.m. labs. COPD, lifelong smoking history Obstructive sleep apnea -Encourage incentive spirometry 10-15 times hourly while awake. -Provide oxygenation as needed to maintain SpO2 equal to or greater than 92%. -DuoNeb nebs as needed for shortness of breath and/or wheezing Hypertension -Monitor vital signs and continue daily medication regimen with lisinopril, isosorbide mononitrate, carvedilol and hydralazine Type 2 insulin-dependent diabetes mellitus, glycemic protocol with NovoLog sliding scale and continue scheduled 70/30 insulin and aspart with meals. Degenerative disc disease resulting in chronic back pain, follows with pain management with Dr. Amaya. Provide symptomatic care and pain management. Chronic anemia resulting from chronic disease, continue daily medication regimen with ferrous sulfate 325 mg daily. CODE STATUS: Full code DVT prophylaxis: Heparin Anticipated discharge date: Clinical course to determine Anticipated discharge place: home Objective - Vital Signs Vital signs: Vital Signs Temp 98.0 F 11/12/21 08:17 Pulse 57 L 11/12/21 08:17 Resp 18 11/12/21 08:17 BP 129/65 11/12/21 08:17 Pulse Ox 97 11/12/21 08:17 Intake & Output 11/11/21 11/12/21 11/12/21 18:59 06:59 18:59 Intake Total 1200 200 118 Output Total 250 Balance 950 200 118 Weight 98.4 kg Intake: Oral 1200 200 118 Output: Urine 250 Other: Voiding Method Bedside Commode # Voids 2 - Labs CBC & Chem 7: 11/12/21 09:19 11/11/21 09:28 Labs: Abnormal Lab Results - Last 24 Hours (Table) 11/11/21 11/11/21 11/11/21 Range/Units 09:28 11:46 15:16 WBC 11.3 H (3.8-10.6) k/uL RBC 2.63 L (3.80-5.40) m/uL Hgb 7.4 L (11.4-16.0) gm/dL Hct 24.4 L (34.0-46.0) % MCHC 30.4 L (31.0-37.0) g/dL Chloride 110 H (98-107) mmol/L BUN 44 H (7-17) mg/dL Creatinine 1.57 H (0.52-1.04) mg/dL Glucose 184 H (74-99) mg/dL POC Glucose (mg/dL) 141 H (75-99) mg/dL Calcium 8.0 L (8.4-10.2) mg/dL 11/11/21 11/11/21 11/12/21 Range/Units 16:20 20:09 01:20 WBC (3.8-10.6) k/uL RBC (3.80-5.40) m/uL Hgb (11.4-16.0) gm/dL Hct (34.0-46.0) % MCHC (31.0-37.0) g/dL Chloride (98-107) mmol/L BUN (7-17) mg/dL Creatinine (0.52-1.04) mg/dL Glucose (74-99) mg/dL POC Glucose (mg/dL) 118 H 183 H 132 H (75-99) mg/dL Calcium (8.4-10.2) mg/dL 11/12/21 11/12/21 Range/Units 08:15 09:19 WBC (3.8-10.6) k/uL RBC 2.58 L (3.80-5.40) m/uL Hgb 7.4 L (11.4-16.0) gm/dL Hct 23.8 L (34.0-46.0) % MCHC (31.0-37.0) g/dL Chloride (98-107) mmol/L BUN (7-17) mg/dL Creatinine (0.52-1.04) mg/dL Glucose (74-99) mg/dL POC Glucose (mg/dL) 201 H (75-99) mg/dL Calcium (8.4-10.2) mg/dL
[2021-11-12 10:05] LABS: Calcium 7.9 mg/dL (8.4-10.2); Potassium 4.8 mmol/L (3.5-5.1)
[2021-11-12 11:50] LABS: Glucose,Whole Blood 182 mg/dL (75-99)
[2021-11-12] MEDS ORDERED: bisacodyL 10 MG SUPP RECTAL STA (12:02)
[2021-11-12] MEDS: SODIUM CHLORIDE 0.9% 1,000 ML IV SCH (13:39)
--- NOTE | 2021-11-12 14:41 | P.PN ---
Subjective Progress Note Date: 11/12/21 PROGRESS NOTE The patient is an 81-year-old female with a history of mild coronary disease, COPD, aortic stenosis who is readmitted to the hospital with symptoms of progressive dyspnea on exertion, mild troponin elevation. She underwent a BURKE yesterday that showed moderate to severe aortic stenosis. She was scheduled to undergo right and left heart catheterization today. She's feeling well this morning, laying supine without any chest discomfort or dyspnea. She denies any dizziness or palpitations. She continues to be on Lasix 40 mg daily, aspirin, Lipitor 80 mg daily, Coreg 12-1/2 mg twice a day, hydralazine 50 mg 3 times a day, isosorbide mononitrate 60 mg daily, lisinopril 10 mg daily, levothyroxin. November 10, The patient underwent cardiac catheterization yesterday was found to have mild CAD with severe aortic stenosis. She is complaining of right arm discomfort but denies any chest discomfort. She is mildly dyspneic. She denies any dizziness or palpitations. She continues to be in sinus mechanism. Her blood pressure and heart rate are stable. She was seen by Dr. De Leon yesterday for evaluation for aortic valve replacement and is scheduled to undergo further testing. She continues to be on carvedilol 12-1/2 mg twice a day, Lipitor 80 mg daily,isosorbide mononitrate 60 mg daily, lisinopril 10 mg daily, Actos November 11: The patient continues to complain of right arm discomfort. She had a hematoma at the site of her brachial access. She was transfused yesterday. She is feeling better this morning, continues to have some arm discomfort but better. The pulse is normal. She had an ultrasound that showed no evidence of pseudoaneurysm. She denies any dizziness or palpitations. She has mild dyspnea and continues to be in sinus mechanism. She denies any nausea or vomiting. She continues to be on Lasix 40 mg daily, hydralazine 25 mg 3 times a day, lisinopril 10 mg daily, Actos 15 mg daily, Coreg 12-1/2 mg twice a day, atorvastatin 80 mg daily,Eliquis 2-1/2 mg twice a day. November 12: She feels tired today she denies any chest discomfort, dizziness or palpitat ions. She is dyspneic but she is supine with no symptoms. She continues to have discomfort in the right arm but able to move her arm and her fingers and her pulse is stable. She is back on her anticoagulation and her oral diuretics. PHYSICAL EXAMINATION: Blood pressure 144/79 with a heart rate 54 LUNGS: Clear to auscultation HEART: Regular rate and rhythm, S1, S2. No S3. Systolic ejection murmur 3/6, mid peaking ABDOMEN: Soft, nontender, no organomegaly EXTREMETIES: [Ecchymosis on the right brachial with intact radial and brachial pulse, hematoma on the right upper arm with swelling LAB: BUN 37, creatinine 1.45, hemoglobin 7.4. IMPRESSION: 1. Severe aortic stenosis with mild coronary artery disease 2. Acute on chronic chronic kidney disease 3. History of hypertension 4. Hyperlipidemia 5. Anemia, worsened by the hematoma PLAN: 1. Continue present therapy 2. Follow renal functions and hemoglobin 3. Increase physical activity. 4. If stable probable discharge home tomorrow. 5. Continue workup for aortic valve replacement as outpatient. Objective - Vital Signs Vital signs: Vital Signs Temp 98.0 F 11/12/21 12:00 Pulse 54 L 11/12/21 12:00 Resp 18 11/12/21 12:00 BP 144/79 11/12/21 12:00 Pulse Ox 97 11/12/21 12:00 Intake & Output 11/11/21 11/12/21 11/12/21 18:59 06:59 18:59 Intake Total 1200 200 236 Output Total 250 Balance 950 200 236 Weight 98.4 kg Intake: Oral 1200 200 236 Output: Urine 250 Other: Voiding Method Bedside Commode Bedside Commode # Voids 2 1 - Labs CBC & Chem 7: 11/12/21 09:19 11/12/21 09:19 Labs: Abnormal Lab Results - Last 24 Hours (Table) 11/11/21 11/11/21 11/11/21 Range/Units 15:16 16:20 20:09 WBC 11.3 H (3.8-10.6) k/uL RBC 2.63 L (3.80-5.40) m/uL Hgb 7.4 L (11.4-16.0) gm/dL Hct 24.4 L (34.0-46.0) % MCHC 30.4 L (31.0-37.0) g/dL Chloride (98-107) mmol/L BUN (7-17) mg/dL Creatinine (0.52-1.04) mg/dL Glucose (74-99) mg/dL POC Glucose (mg/dL) 118 H 183 H (75-99) mg/dL Calcium (8.4-10.2) mg/dL 11/12/21 11/12/21 11/12/21 Range/Units 01:20 08:15 09:19 WBC (3.8-10.6) k/uL RBC (3.80-5.40) m/uL Hgb (11.4-16.0) gm/dL Hct (34.0-46.0) % MCHC (31.0-37.0) g/dL Chloride 108 H (98-107) mmol/L BUN 37 H (7-17) mg/dL Creatinine 1.45 H (0.52-1.04) mg/dL Glucose 232 H (74-99) mg/dL POC Glucose (mg/dL) 132 H 201 H (75-99) mg/dL Calcium 7.9 L (8.4-10.2) mg/dL 11/12/21 11/12/21 Range/Units 09:19 11:49 WBC (3.8-10.6) k/uL RBC 2.58 L (3.80-5.40) m/uL Hgb 7.4 L (11.4-16.0) gm/dL Hct 23.8 L (34.0-46.0) % MCHC (31.0-37.0) g/dL Chloride (98-107) mmol/L BUN (7-17) mg/dL Creatinine (0.52-1.04) mg/dL Glucose (74-99) mg/dL POC Glucose (mg/dL) 182 H (75-99) mg/dL Calcium (8.4-10.2) mg/dL
[2021-11-12 16:42] LABS: Glucose,Whole Blood 212 mg/dL (75-99)
[2021-11-12 20:56] LABS: Glucose,Whole Blood 195 mg/dL (75-99)
[2021-11-12] MEDS: ATORVASTATIN 80 MG TAB PO SCH (21:18)
[2021-11-12] MEDS: MELATONIN 5 MG TABLET PO SCH (21:19)
[2021-11-13] MEDS: ACETAMINOPHEN TAB 325 MG TAB PO PRN ×3 (00:02→22:37)
[2021-11-13] MEDS: SODIUM CHLORIDE 0.9% 1,000 ML IV SCH ×3 (00:06→20:38)
[2021-11-13 06:52] LABS: Glucose,Whole Blood 121 mg/dL (75-99)
[2021-11-13] MEDS: POTASSIUM CHLORIDE ER 20 MEQ TAB.ER PO SCH (07:00)
[2021-11-13] MEDS: LEVOTHYROXINE 125 MCG TAB PO SCH (07:00)
[2021-11-13] MEDS: carvediloL 12.5 MG TAB PO SCH ×2 (07:00→17:07)
[2021-11-13] MEDS: INSULIN ASPART (NovoLOG) 100 UNIT/ML VIAL SQ SCH ×4 (07:01→20:37)
[2021-11-13] MEDS: INSULN ASP PRT/INSULIN ASPART 100 UNIT/ML 10 ML VIAL SQ SCH ×2 (07:02→17:08)
[2021-11-13] MEDS: ASPIRIN 81 MG PO SCH (09:25)
[2021-11-13] MEDS: hydrALAZINE HCL 25 MG TAB PO SCH ×3 (09:25→20:37)
[2021-11-13] MEDS: DOCUSATE 100 MG CAP PO SCH (09:25)
[2021-11-13] MEDS: APIXABAN 2.5 MG TABLET PO SCH ×2 (09:25→20:37)
[2021-11-13] MEDS: lisinopriL 10 MG TAB PO SCH (09:25)
[2021-11-13] MEDS: polyethylene glycoL 3350 17 GM POWD.PACK PO SCH (09:25)
[2021-11-13] MEDS: SERTRALINE 25 MG TAB PO SCH (09:25)
[2021-11-13] MEDS: PIOGLITAZONE 15 MG TAB PO SCH (09:25)
[2021-11-13] MEDS: FUROSEMIDE 40 MG TAB PO SCH (09:25)
[2021-11-13] MEDS: MAGNESIUM OXIDE 400 MG TAB PO SCH (09:25)
[2021-11-13 09:58] LABS: HCT 24.1 % (34.0-46.0); HGB 7.4 gm/dL (11.4-16.0); Hypochromasia Marked; MCH 28.4 pg (25.0-35.0); MCHC 30.6 g/dL (31.0-37.0); Mean Platelet Volume 7.9; Platelet Count 302 k/uL (150-450); RBC 2.59 m/uL (3.80-5.40); RDW 14.5 % (11.5-15.5); WBC 9.6 k/uL (3.8-10.6)
[2021-11-13 10:11] LABS: Potassium 5.3 mmol/L (3.5-5.1)
--- NOTE | 2021-11-13 11:04 | P.PN ---
Subjective Progress Note Date: 11/13/21 PROGRESS NOTE The patient is an 81-year-old female with a history of mild coronary disease, COPD, aortic stenosis who is readmitted to the hospital with symptoms of progressive dyspnea on exertion, mild troponin elevation. She underwent a BURKE yesterday that showed moderate to severe aortic stenosis. She was scheduled to undergo right and left heart catheterization today. She's feeling well this morning, laying supine without any chest discomfort or dyspnea. She denies any dizziness or palpitations. She continues to be on Lasix 40 mg daily, aspirin, Lipitor 80 mg daily, Coreg 12-1/2 mg twice a day, hydralazine 50 mg 3 times a day, isosorbide mononitrate 60 mg daily, lisinopril 10 mg daily, levothyroxin. November 10, The patient underwent cardiac catheterization yesterday was found to have mild CAD with severe aortic stenosis. She is complaining of right arm discomfort but denies any chest discomfort. She is mildly dyspneic. She denies any dizziness or palpitations. She continues to be in sinus mechanism. Her blood pressure and heart rate are stable. She was seen by Dr. De Leon yesterday for evaluation for aortic valve replacement and is scheduled to undergo further testing. She continues to be on carvedilol 12-1/2 mg twice a day, Lipitor 80 mg daily,isosorbide mononitrate 60 mg daily, lisinopril 10 mg daily, Actos November 11: The patient continues to complain of right arm discomfort. She had a hematoma at the site of her brachial access. She was transfused yesterday. She is feeling better this morning, continues to have some arm discomfort but better. The pulse is normal. She had an ultrasound that showed no evidence of pseudoaneurysm. She denies any dizziness or palpitations. She has mild dyspnea and continues to be in sinus mechanism. She denies any nausea or vomiting. She continues to be on Lasix 40 mg daily, hydralazine 25 mg 3 times a day, lisinopril 10 mg daily, Actos 15 mg daily, Coreg 12-1/2 mg twice a day, atorvastatin 80 mg daily,Eliquis 2-1/2 mg twice a day. November 12: She feels tired today she denies any chest discomfort, dizziness or palpitat ions. She is dyspneic but she is supine with no symptoms. She continues to have discomfort in the right arm but able to move her arm and her fingers and her pulse is stable. She is back on her anticoagulation and her oral diuretics. November 13: She feels tired today but denies any chest discomfort dizziness or palpitations. She continues to have is comfort in the right upper extremity but is able to move it and has an intact pulse. She is tolerating her medical regimen including anticoagulation and diuretics. PHYSICAL EXAMINATION: Blood pressure 146/82 with a heart rate 55 LUNGS: Clear to auscultation HEART: Regular rate and rhythm, S1, S2. No S3. Systolic ejection murmur 10/23, mid peaking ABDOMEN: Soft, nontender, no organomegaly EXTREMETIES: [Ecchymosis on the right brachial with intact radial and brachial pulse, hematoma on the right upper arm with swelling LAB: BUN 36, creatinine 1.44, hemoglobin 7.4. IMPRESSION: 1. Severe aortic stenosis with mild coronary artery disease 2. Acute on chronic chronic kidney disease 3. History of hypertension 4. Hyperlipidemia 5. Anemia, worsened by the hematoma PLAN: 1. Continue present therapy 2. Follow renal functions and hemoglobin 3. Increase physical activity. 4. Probable discharge home today 5. Continue workup for aortic valve replacement as outpatient. Objective - Vital Signs Vital signs: Vital Signs Temp 97.8 F 11/13/21 08:25 Pulse 55 L 11/13/21 08:25 Resp 16 11/13/21 08:25 BP 146/82 11/13/21 08:25 Pulse Ox 99 11/13/21 08:25 Intake & Output 11/12/21 11/13/21 11/13/21 18:59 06:59 18:59 Intake Total 354 350 180 Output Total 400 Balance 354 -50 180 Weight 98.4 kg 96.8 kg Intake: Oral 354 350 180 Output: Urine 400 Other: Voiding Method Bedside Commode Toilet # Voids 1 1 - Labs CBC & Chem 7: 11/13/21 09:03 11/13/21 09:03 Labs: Abnormal Lab Results - Last 24 Hours (Table) 11/12/21 11/12/21 11/12/21 Range/Units 11:49 16:40 20:41 RBC (3.80-5.40) m/uL Hgb (11.4-16.0) gm/dL Hct (34.0-46.0) % MCHC (31.0-37.0) g/dL Potassium (3.5-5.1) mmol/L Chloride (98-107) mmol/L BUN (7-17) mg/dL Creatinine (0.52-1.04) mg/dL Glucose (74-99) mg/dL POC Glucose (mg/dL) 182 H 212 H 195 H (75-99) mg/dL Calcium (8.4-10.2) mg/dL 11/13/21 11/13/21 11/13/21 Range/Units 06:51 09:03 09:03 RBC 2.59 L (3.80-5.40) m/uL Hgb 7.4 L (11.4-16.0) gm/dL Hct 24.1 L (34.0-46.0) % MCHC 30.6 L (31.0-37.0) g/dL Potassium 5.3 H (3.5-5.1) mmol/L Chloride 108 H (98-107) mmol/L BUN 36 H (7-17) mg/dL Creatinine 1.44 H (0.52-1.04) mg/dL Glucose 179 H (74-99) mg/dL POC Glucose (mg/dL) 121 H (75-99) mg/dL Calcium 8.0 L (8.4-10.2) mg/dL
[2021-11-13] MEDS: ALBUTEROL NEBULIZED 2.5 MG/3 ML INHALATION PRN (11:22)
[2021-11-13 11:38] LABS: Glucose,Whole Blood 211 mg/dL (75-99)
--- NOTE | 2021-11-13 14:16 | P.PN ---
Subjective Patient was examined at bedside today continues a complaining of worsening intractable pain involving the right upper extremity. There is also significant swelling noted in the patient currently rates the pain a 11 out of 10. Case also discussed with RN. Objective - Vital Signs Vital signs: Vital Signs Temp 98.2 F 11/13/21 12:20 Pulse 57 L 11/13/21 12:20 Resp 16 11/13/21 12:20 BP 166/81 11/13/21 12:20 Pulse Ox 93 L 11/13/21 12:20 Intake & Output 11/12/21 11/13/21 11/13/21 18:59 06:59 18:59 Intake Total 354 350 230 Output Total 400 600 Balance 354 -50 -370 Weight 98.4 kg 96.8 kg Intake: Intake, IV Titration 50 Amount cefTRIAXone 1 gm In 50 Sodium Chloride 0.9% 50 ml @ 100 mls/hr IVPB Q24HR [facility] Rx#:[id number] Oral 354 350 180 Output: Urine 400 600 Other: Voiding Method Bedside Commode Toilet # Voids 1 1 - Exam Gen: awake, alert HEENT: normocephalic, atraumatic, good hearing acuity, moist mucous membranes Resp: good air exchange, breathing comfortably with no accessory muscle use CVS: good distal perfusion x 4, GI: soft, NTTP, ND : no SPT, no CVAT, kurtz catheter not present MSK: no pitting edema, no clubbing, right upper extremity ecchymosis Neuro: non-focal, moving all extremities Psych: cooperative, euthymic moo Extremity : Right upper extremity swelling noted, significant bruising -evolving - Labs CBC & Chem 7: 11/13/21 09:03 11/13/21 09:03 Labs: Abnormal Lab Results - Last 24 Hours (Table) 11/12/21 11/12/21 11/13/21 Range/Units 16:40 20:41 06:51 RBC (3.80-5.40) m/uL Hgb (11.4-16.0) gm/dL Hct (34.0-46.0) % MCHC (31.0-37.0) g/dL Potassium (3.5-5.1) mmol/L Chloride (98-107) mmol/L BUN (7-17) mg/dL Creatinine (0.52-1.04) mg/dL Glucose (74-99) mg/dL POC Glucose (mg/dL) 212 H 195 H 121 H (75-99) mg/dL Calcium (8.4-10.2) mg/dL 11/13/21 11/13/21 11/13/21 Range/Units 09:03 09:03 11:37 RBC 2.59 L (3.80-5.40) m/uL Hgb 7.4 L (11.4-16.0) gm/dL Hct 24.1 L (34.0-46.0) % MCHC 30.6 L (31.0-37.0) g/dL Potassium 5.3 H (3.5-5.1) mmol/L Chloride 108 H (98-107) mmol/L BUN 36 H (7-17) mg/dL Creatinine 1.44 H (0.52-1.04) mg/dL Glucose 179 H (74-99) mg/dL POC Glucose (mg/dL) 211 H (75-99) mg/dL Calcium 8.0 L (8.4-10.2) mg/dL Assessment and Plan Assessment: Assessment/plan: Intractable right upper extremity pain and swelling rule out DVT -We will obtain venous ultrasound of the right upper extremity r/o DVT -Arterial completed negative for pseudoaneurysm Acute diastolic heart failure exacerbation NSTEMI Severe aortic stenosis Mild pulmonary hypertension Paroxysmal atrial fibrillation -Cardiology following, evaluating for TAVR, outpatient follow-up -Cardiothoracic surgery following, evaluating for TAVR, outpatient follow-up -Continue Telemetry monitoring -Daily weights, Close monitoring of I's and O's -Imdur was discontinued. Continue daily cardiac medication regimen consisting of: Aspirin, atorvastatin, carvedilol, lisinopril, and hydralazine Acute kidney injury on Stage III chronic kidney disease, improved with IV hydration -Continue close monitoring with repeat a.m. labs. COPD, lifelong smoking history Obstructive sleep apnea -Encourage incentive spirometry 10-15 times hourly while awake. -Provide oxygenation as needed to maintain SpO2 equal to or greater than 92%. -DuoNeb nebs as needed for shortness of breath and/or wheezing Hypertension -Tuning with same medications as above, blood pressure goal less than 130/80 Type 2 insulin-dependent diabetes mellitus, glycemic protocol with NovoLog sliding scale and continue scheduled 70/30 insulin and aspart with meals. Degenerative disc disease resulting in chronic back pain, follows with pain management with Dr. Amaya. Provide symptomatic care and pain management. Chronic anemia resulting from chronic disease, continue daily medication regimen with ferrous sulfate 325 mg daily. CODE STATUS: Full code DVT prophylaxis: Eliquis Anticipated discharge date: Placement.
[2021-11-13 16:59] LABS: Glucose,Whole Blood 280 mg/dL (75-99)
--- NOTE | 2021-11-13 16:59 | US ---
EXAMINATION TYPE: US venous doppler duplex UE RT DATE OF EXAM: 11/13/2021 COMPARISON: NONE Exam done portable CLINICAL HISTORY: r/o DVT right upper extremity. . Right arm swelling SIDE PERFORMED: Right Difficult and limited study due to arm swelling and exam done with patient sitting in chair Right Arm: Appears negative for DVT, limited visualization of brachial veins Thrombus seen within superficial cephalic vein 18.3 x 2.5 x 6.2cm elongated complex area seen medial upper arm IMPRESSION: No evidence of deep vein thrombosis in the right arm.
[2021-11-13] MEDS: ATORVASTATIN 80 MG TAB PO SCH (20:37)
[2021-11-13] MEDS: MELATONIN 5 MG TABLET PO SCH (20:37)
[2021-11-13 21:12] LABS: Glucose,Whole Blood 240 mg/dL (75-99)
[2021-11-13 23:43] VITALS: RESP 16
[2021-11-14 02:06] LABS: Glucose,Whole Blood 120 mg/dL (75-99)
[2021-11-14] MEDS: ACETAMINOPHEN TAB 325 MG TAB PO PRN ×2 (04:24→09:13)
[2021-11-14] MEDS: carvediloL 12.5 MG TAB PO SCH ×2 (06:30→17:01)
[2021-11-14] MEDS: LEVOTHYROXINE 125 MCG TAB PO SCH (06:30)
[2021-11-14] MEDS: POTASSIUM CHLORIDE ER 20 MEQ TAB.ER PO SCH (06:30)
[2021-11-14 07:04] LABS: Glucose,Whole Blood 155 mg/dL (75-99)
[2021-11-14] MEDS: INSULIN ASPART (NovoLOG) 100 UNIT/ML VIAL SQ SCH ×3 (07:05→17:01)
[2021-11-14] MEDS: INSULN ASP PRT/INSULIN ASPART 100 UNIT/ML 10 ML VIAL SQ SCH ×2 (07:05→17:01)
[2021-11-14 08:42] LABS: HCT 23.9 % (34.0-46.0); HGB 7.4 gm/dL (11.4-16.0); Hypochromasia Marked; MCH 28.8 pg (25.0-35.0); MCHC 31.1 g/dL (31.0-37.0); MCV 92.6 fL (80.0-100.0); Mean Platelet Volume 7.7; Platelet Count 313 k/uL (150-450); RBC 2.58 m/uL (3.80-5.40); RDW 14.5 % (11.5-15.5); WBC 9.4 k/uL (3.8-10.6)
[2021-11-14 08:55] LABS: Calcium 8.2 mg/dL (8.4-10.2)
[2021-11-14] MEDS: polyethylene glycoL 3350 17 GM POWD.PACK PO SCH (09:11)
[2021-11-14] MEDS: lisinopriL 10 MG TAB PO SCH (09:12)
[2021-11-14] MEDS: APIXABAN 2.5 MG TABLET PO SCH (09:12)
[2021-11-14] MEDS: MAGNESIUM OXIDE 400 MG TAB PO SCH (09:12)
[2021-11-14] MEDS: ASPIRIN 81 MG PO SCH (09:12)
[2021-11-14] MEDS: DOCUSATE 100 MG CAP PO SCH (09:12)
[2021-11-14] MEDS: SERTRALINE 25 MG TAB PO SCH (09:12)
[2021-11-14] MEDS: FUROSEMIDE 40 MG TAB PO SCH (09:13)
[2021-11-14] MEDS: PIOGLITAZONE 15 MG TAB PO SCH (09:13)
[2021-11-14] MEDS: hydrALAZINE HCL 25 MG TAB PO SCH ×2 (09:13→17:00)
[2021-11-14] MEDS ORDERED: SODIUM FERRIC GLUCONAT-SUCROSE 125 MG in SODIUM CHLORIDE 0.9% 100 ML IVPB ONE (09:41)
--- NOTE | 2021-11-14 09:41 | P.DS ---
Providers Date of admission: 11/05/21 21:53 Expected date of discharge: 11/14/21 Attending physician: Melodie Pastrana MD Consults: 11/05/21 21:54 Consult Physician Routine Consulting Provider: See Rodriguez Consult Reason/Comments: dyspnea Do you want consulting provider notified?: Yes Consult Physician Routine Consulting Provider: Ban Patino Consult Reason/Comments: heart failure Do you want consulting provider notified?: Yes 11/09/21 12:09 Consult Physician Routine Consulting Provider: Shai De Leno Consult Reason/Comments: ,tavr Do you want consulting provider notified?: Yes Primary care physician: Dontae Jones [facility] Hospital Course: The patient is an 81-year-old female with a history of mild coronary disease, COPD, aortic stenosis who is readmitted to the hospital with symptoms of progressive dyspnea on exertion, mild troponin elevation. She underwent a BURKE yesterday that showed moderate to severe aortic stenosis. She was scheduled to undergo right and left heart catheterization today. She's feeling well this morning, laying supine without any chest discomfort or dyspnea. She denies any dizziness or palpitations. She continues to be on Lasix 40 mg daily, aspirin, Lipitor 80 mg daily, Coreg 12-1/2 mg twice a day, hydralazine 50 mg 3 times a day, isosorbide mononitrate 60 mg daily, lisinopril 10 mg daily, levothyroxin. November 10, The patient underwent cardiac catheterization yesterday was found to have mild CAD with severe aortic stenosis. She is complaining of right arm discomfort but denies any chest discomfort. She is mildly dyspneic. She denies any dizziness or palpitations. She continues to be in sinus mechanism. Her blood pressure and heart rate are stable. She was seen by Dr. De Leon yesterday for evaluation for aortic valve replacement and is scheduled to undergo further testing. She continues to be on carvedilol 12-1/2 mg twice a day, Lipitor 80 mg daily,isosorbide mononitrate 60 mg daily, lisinopril 10 mg daily, Actos November 11: The patient continues to complain of right arm discomfort. She had a hematoma at the site of her brachial access. She was transfused yesterday. She is feeling better this morning, continues to have some arm discomfort but better. The pulse is normal. She had an ultrasound that showed no evidence of pseudoaneurysm. She denies any dizziness or palpitations. She has mild dyspnea and continues to be in sinus mechanism. She denies any nausea or vomiting. She continues to be on Lasix 40 mg daily, hydralazine 25 mg 3 times a day, lisinopril 10 mg daily, Actos 15 mg daily, Coreg 12-1/2 mg twice a day, atorvastatin 80 mg daily,Eliquis 2-1/2 mg twice a day. November 12: She feels tired today she denies any chest discomfort, dizziness or palpitations. She is dyspneic but she is supine with no symptoms. She continues to have discomfort in the right arm but able to move her arm and her fingers and her pulse is stable. She is back on her anticoagulation and her oral diuretics. November 13: She feels tired today but denies any chest discomfort dizziness or palpitations. She continues to have is comfort in the right upper extremity but is able to move it and has an intact pulse. She is tolerating her medical regimen including anticoagulation and diuretics. 11/14: Patient complains of large hematoma/ecchymosis on the left upper arm. Ultrasound was negative for DVT. She has been seen by cardiology and cleared for discharge with planned follow-up for TAVR workup. Patient denies having any chest pain or shortness of breath at rest. She has been afebrile, heart rate 60s, blood pressure 134/62, pulse ox 96% on room air. Repeat blood work reveals hemoglobin 7.4, BUN 39 creatinine 1.5. Capillary blood glucose running between 120 and 240. Patient will undergo iron infusion and start on iron oral per cardiology recommendations. Therapy has recommended subacute rehab and social work has made arrangements for [facility]. Patient will be discharged today to subacute rehab once arrangements are completed. DISCHARGE DIAGNOSES 1. Severe aortic stenosis with mild coronary artery disease 2. Acute kidney injury and chronic kidney disease stage III 3. History of hypertension 4. Hyperlipidemia 5. Anemia, worsened by the hematoma 6. Hematoma right upper extremity 7. Acute diastolic heart failure 8. Mild pulmonary hypertension 9. Paroxysmal atrial fibrillation 10. COPD 11. Tobacco use and dependence 12. Obstructive sleep apnea 13. Diabetes mellitus type 2 14. Chronic back pain secondary to degenerative disc disease DISCHARGE PLAN Acute rehab at [facility] Greater than 35 minutes was utilized and coordinating patient's discharge. Impression and plan of care have been directed as dictated by the signing physician. Bria Muhammad nurse practitioner acting as scribe for signing physician. Patient Condition at Discharge: Good Plan - Discharge Summary Discharge Rx Participant: No New Discharge Prescriptions: New hydrALAZINE HCL [Apresoline] 25 mg PO TID #90 tab lisinopriL [Zestril] 10 mg PO DAILY #30 tab Apixaban [Eliquis] 2.5 mg PO BID #60 tablet Ferrous Sulfate [Feosol] 325 mg PO BID #60 tab Continue Atorvastatin [Lipitor] 80 mg PO HS Levothyroxine Sodium [Synthroid] 125 mcg PO DAILY #30 tab Insulin NPL/Insulin Lispro [humaLOG MIX 75-25 VIAL] 20 unit SQ W/SUPPER Insulin NPL/Insulin Lispro [humaLOG MIX 75-25 VIAL] 30 unit SQ W/BRKFST Ergocalciferol [Vitamin D2 (DRISDOL)] 50,000 unit PO TU Pioglitazone [Actos] 15 mg PO DAILY carvediloL [Coreg*] 12.5 mg PO BID-W/MEALS #60 tab polyethylene glycoL 3350 [Miralax] 17 gm PO DAILY packet Sertraline [Zoloft] 25 mg PO DAILY Albuterol Nebulized [Ventolin Nebulized] 2.5 mg INHALATION RT-QID PRN PRN Reason: Shortness Of Breath Isosorbide Mononitrate ER [Imdur] 60 mg PO DAILY Magnesium Oxide [Pierce] 500 mg PO DAILY Multivit-Min/Iron/Folic/Lutein [Centrum Silver Women Tablet] 1 tab PO DAILY Aspirin [Adult Low Dose Aspirin EC] 81 mg PO AC-BRKFST #30 tab Potassium Chloride ER [K-Dur 20] 20 meq PO W/BRKFST Meclizine [Antivert] 25 mg PO TID PRN #60 tab PRN Reason: Vertigo Artificial Tears-Hypromellose [Artificial Tear Drops] 1 drop BOTH EYES TID PRN PRN Reason: Dry Eye(S) Docusate [Colace] 100 mg PO DAILY Elderberry Fruit and Flower [Black Elderberry 575 mg Cap] 1 cap PO DAILY Aspirin/Acetaminophen/Caffeine [Excedrin Extra Strength Caplet] 2 tab PO DAILY PRN PRN Reason: Migraine Headache Melatonin 5 mg PO HS Changed Furosemide [Lasix] 40 mg PO DAILY 30 Days #60 tab Discontinued Apixaban [Eliquis] 5 mg PO BID #60 tab hydrALAZINE HCL [Apresoline] 100 mg PO TID amLODIPine [Norvasc] 5 mg PO HS lisinopriL 20 mg PO DAILY #0 Discharge Medication List Atorvastatin [Lipitor] 80 mg PO HS 06/30/18 [History] Levothyroxine Sodium [Synthroid] 125 mcg PO DAILY #30 tab 01/08/19 [Rx] Insulin NPL/Insulin Lispro [humaLOG MIX 75-25 VIAL] 20 unit SQ W/SUPPER 05/30/20 [History] Insulin NPL/Insulin Lispro [humaLOG MIX 75-25 VIAL] 30 unit SQ W/BRKFST 06/05/20 [History] Ergocalciferol [Vitamin D2 (DRISDOL)] 50,000 unit PO TU 07/19/20 [History] Pioglitazone [Actos] 15 mg PO DAILY 09/13/20 [History] carvediloL [Coreg*] 12.5 mg PO BID-W/MEALS #60 tab 05/11/21 [Rx] Potassium Chloride ER [K-Dur 20] 20 meq PO W/BRKFST 08/06/21 [History] polyethylene glycoL 3350 [Miralax] 17 gm PO DAILY packet 08/12/21 [Rx] Sertraline [Zoloft] 25 mg PO DAILY 08/30/21 [History] Meclizine [Antivert] 25 mg PO TID PRN #60 tab 09/05/21 [Rx] Albuterol Nebulized [Ventolin Nebulized] 2.5 mg INHALATION RT-QID PRN 09/24/21 [History] Artificial Tears-Hypromellose [Artificial Tear Drops] 1 drop BOTH EYES TID PRN 09/24/21 [History] Aspirin/Acetaminophen/Caffeine [Excedrin Extra Strength Caplet] 2 tab PO DAILY PRN 09/24/21 [History] Docusate [Colace] 100 mg PO DAILY 09/24/21 [History] Elderberry Fruit and Flower [Black Elderberry 575 mg Cap] 1 cap PO DAILY 09/24/21 [History] Isosorbide Mononitrate ER [Imdur] 60 mg PO DAILY 09/24/21 [History] Magnesium Oxide [Pierce] 500 mg PO DAILY 09/24/21 [History] Melatonin 5 mg PO HS 09/24/21 [History] Multivit-Min/Iron/Folic/Lutein [Centrum Silver Women Tablet] 1 tab PO DAILY 09/24/21 [History] Aspirin [Adult Low Dose Aspirin EC] 81 mg PO AC-BRKFST #30 tab 10/28/21 [Rx] Apixaban [Eliquis] 2.5 mg PO BID #60 tablet 11/14/21 [Rx] Ferrous Sulfate [Feosol] 325 mg PO BID #60 tab 11/14/21 [Rx] Furosemide [Lasix] 40 mg PO DAILY 30 Days #60 tab 11/14/21 [Rx] hydrALAZINE HCL [Apresoline] 25 mg PO TID #90 tab 11/14/21 [Rx] lisinopriL [Zestril] 10 mg PO DAILY #30 tab 11/14/21 [Rx] Follow up Appointment(s)/Referral(s): Rahel Ghosh NPC [Nurse Practitioner] - 11/21/21 3:30 pm (Your TAVR CT is scheduled 11/17/21 at 10:20, you will have to come in early (at 7:20 am) for hydration. Please remind the main desk that you need to report to Extended Stay. You are scheduled in the Valve Clinic 11/21/21 @ 3:30 pm to meet with the TAVR team to discuss procedure. The valve clinic is located in [facility] behind [facility], [address] [place] [address] [address]. The office number is ) Renée Hernandez MD [STAFF PHYSICIAN] - 1 Week Dontae Dawn MD [Primary Care Provider] - 1 Week (after discharge from Rehab) Patient Instructions/Handouts: Pseudoaneurysm (GEN) Discharge Disposition: TRANSFER TO SNF/ECF
--- NOTE | 2021-11-14 09:46 | P.PN ---
Subjective PROGRESS NOTE The patient is an 81-year-old female with a history of mild coronary disease, COPD, aortic stenosis who is readmitted to the hospital with symptoms of progressive dyspnea on exertion, mild troponin elevation. She underwent a BURKE yesterday that showed moderate to severe aortic stenosis. She was scheduled to undergo right and left heart catheterization today. She's feeling well this morning, laying supine without any chest discomfort or dyspnea. She denies any dizziness or palpitations. She continues to be on Lasix 40 mg daily, aspirin, Lipitor 80 mg daily, Coreg 12-1/2 mg twice a day, hydralazine 50 mg 3 times a day, isosorbide mononitrate 60 mg daily, lisinopril 10 mg daily, levothyroxin. November 10, The patient underwent cardiac catheterization yesterday was found to have mild CAD with severe aortic stenosis. She is complaining of right arm discomfort but denies any chest discomfort. She is mildly dyspneic. She denies any dizziness or palpitations. She continues to be in sinus mechanism. Her blood pressure and heart rate are stable. She was seen by Dr. De Leon yesterday for evaluation for aortic valve replacement and is scheduled to undergo further testing. She continues to be on carvedilol 12-1/2 mg twice a day, Lipitor 80 mg daily,isosorbide mononitrate 60 mg daily, lisinopril 10 mg daily, Actos November 11: The patient continues to complain of right arm discomfort. She had a hematoma at the site of her brachial access. She was transfused yesterday. She is feeling better this morning, continues to have some arm discomfort but better. The pulse is normal. She had an ultrasound that showed no evidence of pseudoaneurysm. She denies any dizziness or palpitations. She has mild dyspnea and continues to be in sinus mechanism. She denies any nausea or vomiting. She continues to be on Lasix 40 mg daily, hydralazine 25 mg 3 times a day, lisinopril 10 mg daily, Actos 15 mg daily, Coreg 12-1/2 mg twice a day, atorvastatin 80 mg daily,Eliquis 2-1/2 mg twice a day. November 12: She feels tired today she denies any chest discomfort, dizziness or palpitations. She is dyspneic but she is supine with no symptoms. She continues to have discomfort in the right arm but able to move her arm and her fingers and her pulse is stable. She is back on her anticoagulation and her oral diuretics. November 13: She feels tired today but denies any chest discomfort dizziness or palpitations. She continues to have is comfort in the right upper extremity but is able to move it and has an intact pulse. She is tolerating her medical regimen including anticoagulation and diuretics. 11/14 Patient seen and examined. Patient still makes the her chronic shortness breath however not significantly changed. She denies any pain or pressure. Admits to some lightheadedness which has been a chronic issue for her. Hemoglobin appears stable. Denies any hematochezia or melena. Previous ferritin noted to be low from last year and she had previously been on iron supplements. Her right arm has been stable in size. PHYSICAL EXAMINATION: Vitals reviewed LUNGS: Clear to auscultation HEART: Regular rate and rhythm, S1, S2. No S3. Systolic ejection murmur 10/23, mid peaking ABDOMEN: Soft, nontender, no organomegaly EXTREMETIES: [Ecchymosis on the right brachial with intact radial and brachial pulse, hematoma on the right upper arm with swelling IMPRESSION: 1. Severe aortic stenosis with mild coronary artery disease 2. Acute on chronic chronic kidney disease 3. History of hypertension 4. Hyperlipidemia 5. Anemia, worsened by the hematoma. Previous lab work consistent with iron deficiency PLAN: Patient's shortness breath appears stable and at baseline. Recommend iron supplementation and would like to see hemoglobin above 8 before any intervention, TAVR is performed. Patient appears stable for discharge home with outpatient cardiac valve replacement workup to be performed. Objective - Vital Signs Vital signs: Vital Signs Temp 97.7 F 11/14/21 04:00 Pulse 60 11/14/21 04:00 Resp 16 11/14/21 04:00 BP 134/62 11/14/21 04:00 Pulse Ox 96 11/14/21 04:00 Intake & Output 11/13/21 11/14/21 11/14/21 18:59 06:59 18:59 Intake Total 230 240 180 Output Total 600 Balance -370 240 180 Intake: Intake, IV Titration 50 Amount cefTRIAXone 1 gm In 50 Sodium Chloride 0.9% 50 ml @ 100 mls/hr IVPB Q24HR [facility] Rx#:[id number] Oral 180 240 180 Output: Urine 600 Other: Voiding Method Toilet # Voids 1 2 - Labs CBC & Chem 7: 11/14/21 07:49 11/14/21 07:49 Labs: Abnormal Lab Results - Last 24 Hours (Table) 11/13/21 11/13/21 11/13/21 Range/Units 09:03 09:03 11:37 RBC 2.59 L (3.80-5.40) m/uL Hgb 7.4 L (11.4-16.0) gm/dL Hct 24.1 L (34.0-46.0) % MCHC 30.6 L (31.0-37.0) g/dL Potassium 5.3 H (3.5-5.1) mmol/L Chloride 108 H (98-107) mmol/L BUN 36 H (7-17) mg/dL Creatinine 1.44 H (0.52-1.04) mg/dL Glucose 179 H (74-99) mg/dL POC Glucose (mg/dL) 211 H (75-99) mg/dL Calcium 8.0 L (8.4-10.2) mg/dL 11/13/21 11/13/21 11/14/21 Range/Units 16:58 20:15 02:03 RBC (3.80-5.40) m/uL Hgb (11.4-16.0) gm/dL Hct (34.0-46.0) % MCHC (31.0-37.0) g/dL Potassium (3.5-5.1) mmol/L Chloride (98-107) mmol/L BUN (7-17) mg/dL Creatinine (0.52-1.04) mg/dL Glucose (74-99) mg/dL POC Glucose (mg/dL) 280 H 240 H 120 H (75-99) mg/dL Calcium (8.4-10.2) mg/dL 11/14/21 11/14/21 11/14/21 Range/Units 07:01 07:49 07:49 RBC 2.58 L (3.80-5.40) m/uL Hgb 7.4 L (11.4-16.0) gm/dL Hct 23.9 L (34.0-46.0) % MCHC (31.0-37.0) g/dL Potassium (3.5-5.1) mmol/L Chloride 108 H (98-107) mmol/L BUN 39 H (7-17) mg/dL Creatinine 1.50 H (0.52-1.04) mg/dL Glucose 167 H (74-99) mg/dL POC Glucose (mg/dL) 155 H (75-99) mg/dL Calcium 8.2 L (8.4-10.2) mg/dL
[2021-11-14 11:45] LABS: Glucose,Whole Blood 181 mg/dL (75-99)
[2021-11-14 11:53] VITALS: TEMP 97.9
[2021-11-14] MEDS: SODIUM CHLORIDE 0.9% 1,000 ML IV SCH (13:15)
[2021-11-14 17:13] VITALS: BP 179/79; PULSE 62
== END 2021-11-14 17:25 | DRG 280 ==
LOC: EC 18:31 → 3SCARD 21:53
PROVIDERS: ADMIT Internal Medicine; ATTEND Internal Medicine
PROC: B24BZZ4 Ultrasonography of Heart with Aorta, Transesophageal (ICD-10-PCS; 2021-11-07)
PROC: B2111ZZ Fluoroscopy of Multiple Coronary Arteries using Low Osmolar Contrast (ICD-10-PCS; principal; 2021-11-09 07:30)
PROC: 4A023N8 Measurement of Cardiac Sampling and Pressure, Bilateral, Percutaneous Approach (ICD-10-PCS; principal; 2021-11-09 07:30)
PROC: 30233N1 Transfusion of Nonautologous Red Blood Cells into Peripheral Vein, Percutaneous Approach (ICD-10-PCS; 2021-11-10)
DX: I13.0 Hypertensive heart and chronic kidney disease with heart failure and stage 1 through stage 4 chronic kidney disease, or unspecified chronic kidney disease (principal); I21.4 Non-ST elevation (NSTEMI) myocardial infarction; I50.33 Acute on chronic diastolic (congestive) heart failure; J96.21 Acute and chronic respiratory failure with hypoxia; N17.9 Acute kidney failure, unspecified; T82.838A Hemorrhage due to vascular prosthetic devices, implants and grafts, initial encounter; I08.3 Combined rheumatic disorders of mitral, aortic and tricuspid valves; I25.10 Atherosclerotic heart disease of native coronary artery without angina pectoris; I27.20 Pulmonary hypertension, unspecified; I45.10 Unspecified right bundle-branch block; I48.0 Paroxysmal atrial fibrillation; J44.9 Chronic obstructive pulmonary disease, unspecified; N18.30 Chronic kidney disease, stage 3 unspecified; Z86.16 Personal history of COVID-19; D63.1 Anemia in chronic kidney disease; G47.33 Obstructive sleep apnea (adult) (pediatric); E78.5 Hyperlipidemia, unspecified; D72.829 Elevated white blood cell count, unspecified; E03.9 Hypothyroidism, unspecified; E11.22 Type 2 diabetes mellitus with diabetic chronic kidney disease; G89.29 Other chronic pain; E11.40 Type 2 diabetes mellitus with diabetic neuropathy, unspecified; Z79.4 Long term (current) use of insulin; K59.00 Constipation, unspecified; E55.9 Vitamin D deficiency, unspecified; E87.5 Hyperkalemia; M54.50 Low back pain, unspecified; Z90.89 Acquired absence of other organs; Z86.73 Personal history of transient ischemic attack (TIA), and cerebral infarction without residual deficits; Z98.42 Cataract extraction status, left eye; Z98.41 Cataract extraction status, right eye; Z96.1 Presence of intraocular lens; Z77.22 Contact with and (suspected) exposure to environmental tobacco smoke (acute) (chronic); Z79.01 Long term (current) use of anticoagulants; Z79.82 Long term (current) use of aspirin; Z79.84 Long term (current) use of oral hypoglycemic drugs; Z79.890 Hormone replacement therapy; Z79.899 Other long term (current) drug therapy; Z80.0 Family history of malignant neoplasm of digestive organs; Z80.6 Family history of leukemia; Z80.8 Family history of malignant neoplasm of other organs or systems; Z82.0 Family history of epilepsy and other diseases of the nervous system; Z82.3 Family history of stroke; Z82.49 Family history of ischemic heart disease and other diseases of the circulatory system; Z83.3 Family history of diabetes mellitus; Z81.1 Family history of alcohol abuse and dependence; Z81.3 Family history of other psychoactive substance abuse and dependence; Z85.828 Personal history of other malignant neoplasm of skin; Z87.01 Personal history of pneumonia (recurrent); Z87.891 Personal history of nicotine dependence; Z90.710 Acquired absence of both cervix and uterus
CPT/HCPCS: 36415; 71045; 80048; 80053; 80061; 80074; 81001; 82810; 83036; 83605; 83735; 83880; 84145; 84443; 84484; 85018; 85025; 85027; 85610; 85730; 86850; 86900; 86901; 86920; 93005; 93312; 93320; 93325; 93460; 93880; 94640; 94760; 96374; 96375; 99285

== ENCOUNTER 2021-12-19 09:51 | Observation (INO) | payer MEDICARE, OTHER ==
--- NOTE | 2021-12-19 10:02 | ED ---
General Adult HPI - General Stated complaint: AMS Time Seen by Provider: 12/19/21 09:53 - History of Present Illness Initial comments: Dictation was produced using [employer] dictation software. please excuse any grammatical, word or spelling errors. Chief Complaint: 81-year-old female with multiple comorbidities presents to emergency department after being found down at home. History of Present Illness: Is an 81-year-old female she is brought in from home by EMS. Patient has multiple comorbidities including atrial fibrillation, ant icoagulation therapy, diabetes dyslipidemia. She also sleep apnea. Patient was brought in by EMS after they got a call from the doctor's office. Patient's doctor's office spoke with her over the phone. She answered the phone and sound very confused. EMS was sent to her residence where she was found on the ground. She is responsive however is having garbled and repetitive speech per EMS. Kennedi ochoaedgar is a poor historian. She states that she feels cold. It is unclear when patient's last known normal was. The ROS documented in this emergency department record has been reviewed and confirmed by me. Those systems with pertinent positive or negative responses have been documented in the HPI. All other systems are other negative and/or noncontributory. PHYSICAL EXAM: General Impression: Alert and oriented x3/4, not in acute distress HEENT: Normocephalic atraumatic, extra-ocular movements intact, pupils equal and reactive to light bilaterally, dry mucous membranes. Cardiovascular: Heart regular rate and rhythm Chest: Able to complete full sentences, no retractions, no tachypnea Abdomen: abdomen soft, non-tender, non-distended, no organomegaly Musculoskeletal: Pulses present and equal in all extremities, no peripheral edema Motor: no focal deficits noted Neurological: CN II-XII grossly intact, no focal motor or sensory deficits noted, NIH 0 Skin: Intact with no visualized rashes ED course: 81-year-old female presents emergency Department with altered mental status. She has multiple comorbidities. She is found down at home. Unknown last known normal. Laboratory evaluation obtained. CBC is unremarkable. Coag panel is negative. Metabolic panel is within acceptable limits. Troponin is 0.024. Patient has history of elevated troponin. Urinalysis is negative per for panel viral PCR is negative. Computed tomography scan of the head and C-spine shows no acute p rocesses. Chest x-ray Shows manubrial abnormality. Patient does not have any chest pain or pain at the manubrium. Patient observed in emergency department for approximately 3 hours. Reevaluation at bedside at 1:00 PM found to be in stable medical condition. Still slightly confused and weak-appearing but has stable vitals. Patient will be admitted to [facility] with consultation to neurology. Patient given aspirin for presumed CVA versus TIA. EKG interpretation: Ventricular rate 53, sinus bradycardia,. Interval 132, QS 122, QTC 49. No [place] prolongation, no QTC prolongation, no ST or T-wave changes noted. EKG compared to 12/01/2021 showing no changes. Overall, this EKG is unremarkable - Related Data Home Medications Medication Instructions Recorded Confirmed Atorvastatin [Lipitor] 80 mg PO HS@209906/30/18 12/19/21 Pioglitazone [Actos] 15 mg PO DAILY@89909/13/20 12/19/21 Potassium Chloride ER [K-Dur 20] 20 meq PO DAILY@89908/06/21 12/19/21 Sertraline [Zoloft] 25 mg PO DAILY@89908/30/21 12/19/21 Albuterol Nebulized [Ventolin 2.5 mg INHALATION RT-QID PRN 09/24/21 12/19/21 Nebulized] Artificial Tears-Hypromellose 1 drop BOTH EYES TID PRN 09/24/21 12/19/21 [Artificial Tear Drops] Docusate [Colace] 100 mg PO DAILY@89909/24/21 12/19/21 Isosorbide Mononitrate ER [Imdur] 60 mg PO DAILY@89909/24/21 12/19/21 Multivit-Min/Iron/Folic/Lutein 1 tab PO DAILY@89909/24/21 12/19/21 [Centrum Silver Women Tablet] Acetaminophen Tab [Tylenol] 650 mg PO Q4H PRN 12/01/21 12/19/21 Apixaban [Eliquis] 2.5 mg PO BID@0900,2100 12/01/21 12/19/21 Aspirin [Adult Low Dose Aspirin EC] 81 mg PO DAILY@0912/01/21 12/19/21 Levothyroxine Sodium [Synthroid] 125 mcg PO DAILY@0612/01/21 12/19/21 Magnesium Oxide [Mag-Ox] 400 mg PO DAILY@0900 12/01/21 12/19/21 Melatonin 10 mg PO HS@2100 12/01/21 12/19/21 Omeprazole 40 mg PO DAILY@0900 12/01/21 12/19/21 polyethylene glycoL 3350 [Miralax] 17 gm PO DAILY@0900 12/01/21 12/19/21 Carvedilol [Coreg] 25 mg PO BID 12/19/21 12/19/21 hydrALAZINE HCL [Apresoline] 75 mg PO TID 12/19/21 12/19/21 lisinopriL 40 mg PO DAILY 12/19/21 12/19/21 Previous Rx's Medication Instructions Recorded Ferrous Sulfate [Feosol] 325 mg PO BID@0900,2100 #60 tab 12/02/21 Furosemide [Lasix] 40 mg PO BID #60 tab 12/02/21 Insulin Lispro Protamin/Lispro 40 unit SQ DAILY #5 pen 12/02/21 [humaLOG Mix 75-25 Kwikpen] busPIRone HCl [Buspar] 10 mg PO Q8H #90 tab 12/02/21 Allergies Allergy/AdvReac Type Severity Reaction Status Date / Time azithromycin Allergy Rash/Hives Verified 12/19/21 12:32 [From Zithromax Z-Jeanmarie] methylprednisolone Allergy Rash/Hives Verified 12/19/21 12:32 [From Medrol] sulfamethoxazole Allergy Rash/Hives Verified 12/19/21 12:32 [From Bactrim] trimethoprim [From Bactrim] Allergy Rash/Hives Verified 12/19/21 12:32 hydrochlorothiazide AdvReac lost Verified 12/19/21 12:32 balance and fell Review of Systems ROS Statement: Those systems with pertinent positive or pertinent negative responses have been documented in the HPI. ROS Other: All systems not noted in ROS Statement are negative. Past Medical History Past Medical History: Atrial Fibrillation, Cancer, Chest Pain / Angina, Heart F ailure, COPD, CVA/TIA, Diabetes Mellitus, Hyperlipidemia, Hypertension, Osteoarthritis (OA), Pneumonia, Renal Disease, Sleep Apnea/CPAP/BIPAP, Syncope, Thyroid Disorder Additional Past Medical History / Comment(s): Stage III Kidney Disease, hx Pneumonia with Sepsis, no CPAP use (family states she hasn't been out of the hospital long enough to get a CPAP machine), Vitamin D Deficiency, chronic low back pain, frequent constipation, hx skin cancer, neuropathy History of Any Multi-Drug Resistant Organisms: None Reported Past Surgical History: Adenoidectomy, Back Surgery, Bariatric Surgery, Cholecystectomy, Heart Catheterization, Hysterectomy, Tonsillectomy Additional Past Surgical History / Comment(s): Cardiac caths , lap band placed/since removed, low back surgery, L carpal tunnel release X2, skin cancer removal, colonoscopies, bilateral cataract removals/lens implants. Past Anesthesia/Blood Transfusion Reactions: Previous Problems w/ Anesthesia Additional Past Anesthesia/Blood Transfusion Reaction / Comment(s): "Had too much anesthesia in 2007 for lap band removal, had to be bagged." Past Psychological History: Depression Smoking Status: Never smoker Past Alcohol Use History: None Reported Past Drug Use History: None Reported - Past Family History Sister(s) Family Medical History: Myocardial Infarction ([place]) Brother(s) Family Medical History: Cancer Additional Family Medical History / Comment(s): Colon Cancer. Mother Family Medical History: Dementia Additional Family Medical History / Comment(s): Mother of dementia at the age of 89yrs. Father Family Medical History: Cancer Additional Family Medical History / Comment(s): Pt states her father was treated for a sinus infection but really had leukemia and of this at the age of 72 yrs. Course Vital Signs 12/19/21 12/19/21 09:53 10:45 Pulse Rate 58 L 47 L Respiratory 18 18 Rate Blood Pressure 169/91 146/72 O2 Sat by Pulse 95 97 Oximetry Medical Decision Making - Lab Data Result diagrams: 12/19/21 10:08 12/19/21 10:08 Lab Results 12/19/21 12/19/21 12/19/21 Range/Units 10:08 10:08 10:08 WBC 7.9 (3.8-10.6) k/uL RBC 4.62 (3.80-5.40) m/uL Hgb 12.8 D (11.4-16.0) gm/dL Hct 44.7 (34.0-46.0) % MCV 96.9 (80.0-100.0) fL MCH 27.8 (25.0-35.0) pg MCHC 28.7 L (31.0-37.0) g/dL RDW 14.3 (11.5-15.5) % Plt Count 289 (150-450) k/uL MPV 8.2 Neutrophils % 78 % Lymphocytes % 9 % Monocytes % 8 % Eosinophils % 2 % Basophils % 1 % Neutrophils # 6.2 (1.3-7.7) k/uL Lymphocytes # 0.7 L (1.0-4.8) k/uL Monocytes # 0.6 (0-1.0) k/uL Eosinophils # 0.2 (0-0.7) k/uL Basophils # 0.1 (0-0.2) k/uL Hypochromasia Marked PT 11.1 (9.0-12.0) sec INR 1.0 (<1.2) APTT 26.4 (22.0-30.0) sec Sodium (137-145) mmol/L Potassium (3.5-5.1) mmol/L Chloride (98-107) mmol/L Carbon Dioxide (22-30) mmol/L Anion Gap mmol/L BUN (7-17) mg/dL Creatinine (0.52-1.04) mg/dL Est GFR (CKD-EPI)AfAm (>60 ml/min/1.73 sqM) Est GFR (CKD-EPI)NonAf (>60 ml/min/1.73 sqM) Glucose (74-99) mg/dL POC Glucose (mg/dL) (75-99) mg/dL POC Glu Supervisor Blood ID Plasma Lactic Acid Terry 1.5 (0.7-2.0) mmol/L Calcium (8.4-10.2) mg/dL Magnesium (1.6-2.3) mg/dL Total Bilirubin (0.2-1.3) mg/dL AST (14-36) U/L ALT (4-34) U/L Alkaline Phosphatase (38-126) U/L Ammonia <9 (<30) umol/L Troponin I (0.000-0.034) ng/mL Total Protein (6.3-8.2) g/dL Albumin (3.5-5.0) g/dL TSH (0.465-4.680) mIU/L Urine Color Urine Appearance (Clear) Urine pH (5.0-8.0) Ur Specific [place] (1.001-1.035) Urine Protein (Negative) Urine Glucose (UA) (Negative) Urine Ketones (Negative) Urine Blood (Negative) Urine Nitrite (Negative) Urine Bilirubin (Negative) Urine Urobilinogen (<2.0) mg/dL Ur Leukocyte Esterase (Negative) Urine RBC (0-5) /hpf Urine WBC (0-5) /hpf Influenza Type A (PCR) (Not Detectd) Influenza Type B (PCR) (Not Detectd) RSV (PCR) (Not Detectd) SARS-CoV-2 (PCR) (Not Detectd) 12/19/21 12/19/21 12/19/21 Range/Units 10:08 10:08 10:08 WBC (3.8-10.6) k/uL RBC (3.80-5.40) m/uL Hgb (11.4-16.0) gm/dL Hct (34.0-46.0) % MCV (80.0-100.0) fL MCH (25.0-35.0) pg MCHC (31.0-37.0) g/dL RDW (11.5-15.5) % Plt Count (150-450) k/uL MPV Neutrophils % % Lymphocytes % % Monocytes % % Eosinophils % % Basophils % % Neutrophils # (1.3-7.7) k/uL Lymphocytes # (1.0-4.8) k/uL Monocytes # (0-1.0) k/uL Eosinophils # (0-0.7) k/uL Basophils # (0-0.2) k/uL Hypochromasia PT (9.0-12.0) sec INR (<1.2) APTT (22.0-30.0) sec Sodium 143 (137-145) mmol/L Potassium 4.4 (3.5-5.1) mmol/L Chloride 105 (98-107) mmol/L Carbon Dioxide 29 (22-30) mmol/L Anion Gap 9 mmol/L BUN 34 H (7-17) mg/dL Creatinine 1.50 H (0.52-1.04) mg/dL Est GFR (CKD-EPI)AfAm 38 (>60 ml/min/1.73 sqM) Est GFR (CKD-EPI)NonAf 33 (>60 ml/min/1.73 sqM) Glucose 160 H (74-99) mg/dL POC Glucose (mg/dL) (75-99) mg/dL POC Glu Supervisor Blood ID Plasma Lactic Acid Terry (0.7-2.0) mmol/L Calcium 8.9 (8.4-10.2) mg/dL Magnesium 2.0 (1.6-2.3) mg/dL Total Bilirubin 0.6 (0.2-1.3) mg/dL AST 30 (14-36) U/L ALT 21 (4-34) U/L Alkaline Phosphatase 90 (38-126) U/L Ammonia (<30) umol/L Troponin I 0.024 (0.000-0.034) ng/mL Total Protein 7.5 (6.3-8.2) g/dL Albumin 4.2 (3.5-5.0) g/dL TSH 2.860 (0.465-4.680) mIU/L Urine Color Urine Appearance (Clear) Urine pH (5.0-8.0) Ur Specific [place] (1.001-1.035) Urine Protein (Negative) Urine Glucose (UA) (Negative) Urine Ketones (Negative) Urine Blood (Negative) Urine Nitrite (Negative) Urine Bilirubin (Negative) Urine Urobilinogen (<2.0) mg/dL Ur Leukocyte Esterase (Negative) Urine RBC (0-5) /hpf Urine WBC (0-5) /hpf Influenza Type A (PCR) Not Detected (Not Detectd) Influenza Type B (PCR) Not Detected (Not Detectd) RSV (PCR) Not Detected (Not Detectd) SARS-CoV-2 (PCR) Not Detected (Not Detectd) 12/19/21 12/19/21 Range/Units 10:08 10:19 WBC (3.8-10.6) k/uL RBC (3.80-5.40) m/uL Hgb (11.4-16.0) gm/dL Hct (34.0-46.0) % MCV (80.0-100.0) fL MCH (25.0-35.0) pg MCHC (31.0-37.0) g/dL RDW (11.5-15.5) % Plt Count (150-450) k/uL MPV Neutrophils % % Lymphocytes % % Monocytes % % Eosinophils % % Basophils % % Neutrophils # (1.3-7.7) k/uL Lymphocytes # (1.0-4.8) k/uL Monocytes # (0-1.0) k/uL Eosinophils # (0-0.7) k/uL Basophils # (0-0.2) k/uL Hypochromasia PT (9.0-12.0) sec INR (<1.2) APTT (22.0-30.0) sec Sodium (137-145) mmol/L Potassium (3.5-5.1) mmol/L Chloride (98-107) mmol/L Carbon Dioxide (22-30) mmol/L Anion Gap mmol/L BUN (7-17) mg/dL Creatinine (0.52-1.04) mg/dL Est GFR (CKD-EPI)AfAm (>60 ml/min/1.73 sqM) Est GFR (CKD-EPI)NonAf (>60 ml/min/1.73 sqM) Glucose (74-99) mg/dL POC Glucose (mg/dL) 129 H (75-99) mg/dL POC Glu Supervisor Blood ID Eber Ortiz Plasma Lactic Acid Terry (0.7-2.0) mmol/L Calcium (8.4-10.2) mg/dL Magnesium (1.6-2.3) mg/dL Total Bilirubin (0.2-1.3) mg/dL AST (14-36) U/L ALT (4-34) U/L Alkaline Phosphatase (38-126) U/L Ammonia (<30) umol/L Troponin I (0.000-0.034) ng/mL Total Protein (6.3-8.2) g/dL Albumin (3.5-5.0) g/dL TSH (0.465-4.680) mIU/L Urine Color Light Yellow Urine Appearance Clear (Clear) Urine pH 6.0 (5.0-8.0) Ur Specific [place] 1.008 (1.001-1.035) Urine Protein 1+ H (Negative) Urine Glucose (UA) Negative (Negative) Urine Ketones Negative (Negative) Urine Blood Negative (Negative) Urine Nitrite Negative (Negative) Urine Bilirubin Negative (Negative) Urine Urobilinogen <2.0 (<2.0) mg/dL Ur Leukocyte Esterase Negative (Negative) Urine RBC 2 (0-5) /hpf Urine WBC 1 (0-5) /hpf Influenza Type A (PCR) (Not Detectd) Influenza Type B (PCR) (Not Detectd) RSV (PCR) (Not Detectd) SARS-CoV-2 (PCR) (Not Detectd) Critical Care Time Critical Care Time: Yes Total Critical Care Time: 33 Disposition Clinical Impression: Altered mental status Disposition: ADMITTED IP TO THIS HOSP Condition: Fair
[2021-12-19 10:29] LABS: Basophils # (A) 0.1 k/uL (0-0.2); Basophils % (A) 1 %; Eosinophils # (A) 0.2 k/uL (0-0.7); Eosinophils % (A) 2 %; HCT 44.7 % (34.0-46.0); Hypochromasia Marked; Lymphocytes # (A) 0.7 k/uL (1.0-4.8); Lymphocytes % (A) 9 %; MCH 27.8 pg (25.0-35.0); MCHC 28.7 g/dL (31.0-37.0); MCV 96.9 fL (80.0-100.0); Mean Platelet Volume 8.2; Monocytes # (A) 0.6 k/uL (0-1.0); Monocytes % (A) 8 %; Neutrophils # (A) 6.2 k/uL (1.3-7.7); Neutrophils % (A) 78 %; Platelet Count 289 k/uL (150-450); RBC 4.62 m/uL (3.80-5.40); RDW 14.3 % (11.5-15.5); WBC 7.9 k/uL (3.8-10.6)
[2021-12-19 10:30] LABS: Glucose,Whole Blood 129 mg/dL (75-99)
--- NOTE | 2021-12-19 10:39 | XR ---
AP pelvis HISTORY: Patient found down from unknown length of time frontal view of the pelvis submitted on 2 images, no comparisons Exam is limited technically. No gross fracture or dislocation. Postop changes noted to the lumbosacra l spine. IMPRESSION: Some limitations the exam. Postop changes.
[2021-12-19 10:40] LABS: Lactic Acid, Venous 1.5 mmol/L (0.7-2.0)
[2021-12-19 10:41] LABS: Albumin 4.2 g/dL (3.5-5.0); Calcium 8.9 mg/dL (8.4-10.2); Potassium 4.4 mmol/L (3.5-5.1); Total Bilirubin 0.6 mg/dL (0.2-1.3); Total Protein 7.5 g/dL (6.3-8.2)
--- NOTE | 2021-12-19 10:41 | XR ---
EXAMINATION TYPE: XR chest 1V portable DATE OF EXAM: 12/19/2021 COMPARISON: Chest x-ray 12/01/2021, CT 11/19/2021 HISTORY: Patient found down from known length of time, altered mental status, abnormal chest x-ray TECHNIQUE: Single frontal view of the chest is obtained, comparison prior exam 12/01/2021. FINDINGS: The heart is possibly enlarged, there is an enlarged epicardial fat pad. No evident pneumo thorax or pleural effusion. Patchy basilar density is noted. Aorta is dense. Possible enchondroma pro ximal metaphysis of the right humerus. IMPRESSION: Suspect some mild basilar atelectasis..
[2021-12-19 10:45] LABS: Appearance,Urine Clear (Clear); Bilirubin,Urine Negative (Negative); Blood,Urine Negative (Negative); Color,Urine Light Yellow; Glucose,Urine (UA) Negative (Negative); Ketones,Urine Negative (Negative); Leukocyte Esterase,Urine Negative (Negative); Nitrite,Urine Negative (Negative); Protein,Urine 1+ (Negative); RBC,Urine 2 /hpf (0-5); Specific Gravity,Urine 1.008 (1.001-1.035); Urobilinogen,Urine <2.0 mg/dL (<2.0); WBC,Urine 1 /hpf (0-5)
[2021-12-19 10:46] LABS: HGB 12.8 gm/dL (11.4-16.0); Partial Thromboplastin Time 26.4 sec (22.0-30.0); Prothrombin Time 11.1 sec (9.0-12.0)
--- NOTE | 2021-12-19 11:17 | CT ---
EXAMINATION TYPE: CT brain cspine wo con DATE OF EXAM: 12/19/2021 COMPARISON: CT brain 09/12/2021, CT 11/17/2021 and 08/07/2021 HISTORY: unknown length of downtime, altered mental status CT DLP: 1782.4 mGycm Automated exposure control for dose reduction was used. TECHNIQUE: CT scan of the head and cervical spine are performed without contrast. FINDINGS: There is no acute intracranial hemorrhage, mass effect, or midline shift identified. Emely ventricular white matter shows patchy low attenuation similar to prior exam. There are basal ganglia calcifications. Cerebral vascular calcifications are noted. Encephalomalacia involving the inferior a spect of the left cerebellar hemisphere is stable. The ventricles and sulci are within normal limits in size. The globes are intact and the visualized sinuses are clear. Cervical spine is visualized in its entirety from C1 through upper thoracic levels and demonstrates s atisfactory alignment without evidence of acute fracture or dislocation. Prevertebral soft tissue ap pears within normal limits. There is multilevel spondylosis. Loss of disc height is present at interv ertebral levels C5-6 and C6-7. There is multilevel foraminal encroachment. Uncovertebral joint hypert rophy changes are present. Patient is rotated. There are facet arthropathy changes present. The C1-C2 articulation is unremarkable. Nonspecific sclerosis noted of the manubrium, suggestion of a fractur e is present. Incidental right pleural effusion. 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 IMPRESSION: 1. There is no acute fracture or dislocation evident in the cervical spine. 2. No acute intracranial hemorrhage, mass effect, or midline shift is seen. 3. Possible manubrial fracture, indeterminate sclerosis, consider bone scan as indicated, pathologic fracture not excluded. 4. Right pleural effusion.
--- NOTE | 2021-12-19 12:16 | XR ---
Right hand HISTORY: Trauma and pain 3 views of the right hand Bone mineralization is reduced. Osteoarthritic changes are present. There is a fracture involving the proximal fifth phalanx proximal aspect which appears nondisplaced, minimally displaced proximal four th proximal phalanx fracture also noted. No evident dislocation. IMPRESSION: Fourth and fifth digit fractures.
[2021-12-19] MEDS ORDERED: NALOXONE 0.4 MG/ML 1 ML VIAL IV PRN (12:48)
[2021-12-19] MEDS ORDERED: ASPIRIN 81 MG PO STA (13:11)
[2021-12-19] MEDS: SODIUM CHLORIDE 0.9% 1,000 ML IV SCH (14:57)
[2021-12-19] MEDS: HYDROcodone/APAP 5-325MG 1 EACH TAB PO PRN ×2 (14:58→22:07)
[2021-12-19] MEDS ORDERED: ACETAMINOPHEN TAB 325 MG TAB PO PRN (14:59)
[2021-12-19] MEDS ORDERED: polyethylene glycoL 3350 17 GM POWD.PACK PO PRN (14:59)
[2021-12-19] MEDS ORDERED: ARTIFICIAL TEARS-HYPROMELLOSE DROPS 15 ML BTL BOTH EYES PRN (14:59)
--- NOTE | 2021-12-19 15:31 | P.HPIM ---
History of Present Illness H&P Date: 12/19/21 This is a pleasant 81 year old female who presents to the with concern for altered mental status. Patient was called by one of her outside providers who felt patient was confused and had slurred speech while on the phone with her and EMS was called to the house. They did find patient on the floor, unknown last well. She has a history of falls related to hypoglycemia per family, however they felt that patient is alert x 3 and this is her baseline mentation. Patient does complain of numbness and tinging in hand and fingers. Chronic conditions include chronic kidney disease which creatinine appears baseline, atrial fibrillation maintained on eliquis, diastolic heart failure, severe aortic st enosis, COPD, CVA/TIA, diabetes mellitus type 2 with peripheral neuropathy, hyperlipidemia, hypertension, osteoarthritis, sleep apnea does not have a CPAP machine yet, syncope, hypothyroidism, skin cancer with resection. Previous history of cardiac catheterization, LAP-BAND surgery with removal, bilateral cataract removal with lens implants. Patient was recently hospitalized in November of this year for pulmonary edema and diastolic heart failure. She was evaluated during that hospital stay for aortic stenosis and was supposed to follow up with the cardiothoracic surgeon 2 weeks ago outpatient. Most recent echocardiogram showing an EF of 55 to 60%. She was discharged to [facility] from her previous hospital stay. Patient is admitted to the hospital with consult placed to neurology services, orthopedic services. Blood count on admission unremarkable, BUN 34, creatinine 1.50, glucose 160, troponin 0.024. Liver enzymes are negative, CK level pending. Urinalysis showing proteinuria. Covid, Influenza A/B, RSV are all negative EKG showing sinus bradycardia heart rate in the 50s, with ventricular premature complexes, QT interval of 489, no ST or T wave changes, stable from previous EKG. Chest xray shows mild basilar atelectasis. Imaging of pelvis shows no acute fracture. Head cervical spine CT shows no acute fracture/dislocation of cervical spine. No intracranial hemorrhage, mass effect or midline shift. There is possible manubrial fracture, indeterminate sclerosis, consider bone scan as pathological fracture is not excluded. Right hand xray showing fourth and fifth finger digit fractures. REVIEW OF SYSTEMS: CONSTITUTIONAL: No fever, no malaise, no fatigue. HEENT: No recent visual problems or hearing problems. Denied any sore throat. CARDIOVASCULAR: No chest pain, orthopnea, PND, no palpitations, no syncope. PULMONARY: No shortness of breath, no cough, no hemoptysis. GASTROINTESTINAL: No diarrhea, no nausea, no vomiting, no abdominal pain. NEUROLOGICAL: No headaches, no weakness, no numbness. HEMATOLOGICAL: Denies any bleeding or petechiae. GENITOURINARY: Denies any burning micturition, frequency, or urgency. MUSCULOSKELETAL/RHEUMATOLOGICAL: Reports right hand pain ENDOCRINE: Denies any polyuria or polydipsia. The rest of the 14-point review of systems is negative. PHYSICAL EXAMINATION: GENERAL: The patient is alert and oriented x3, not in any acute distress. Well developed, well nourished. HEENT: Pupils are round and equally reacting to light. EOMI. No scleral icterus. No conjunctival pallor. Normocephalic, atraumatic. No pharyngeal erythema. No thyromegaly. CARDIOVASCULAR: Systolic murmur heard in the aortic area PULMONARY: Chest is clear to auscultation, no wheezing or crackles. ABDOMEN: Soft, nontender, nondistended, normoactive bowel sounds. No palpable organomegaly. MUSCULOSKELETAL: No joint swelling or deformity. EXTREMITIES: No cyanosis, clubbing, or pedal edema. NEUROLOGICAL: Gross neurological examination did not reveal any focal deficits. SKIN: No rashes. Assessment and Plan Assessment Altered mental status, indeterminate cause, rule out CVA/TIA, neurology on consultation Chronic diastolic failure not in acute exacerbation Atrial Fibrillation with EKG showing sinus bradycardia COPD, not in acute exacerbation Diabetes Mellitus type 2 with hyperglycemia History of hypoglycemic episodes History of anemia with recent hospitalization work up for GIB with EGD/Colonoscopy at that time showing esophagitis, gastritis Chronic Kidney Disease stage 3, creatinine 1.5 which appears baseline History of severe aortic stenosis Hypertension Hyperlipidemia GI Prophylaxis DVT Prophylaxis Full Code Plan Neurology consultation Orthopedic consultation Telemetry monitoring Hold Coreg Hold oral diabetic agents Sliding scale coverage Trend troponin Check A1C Check TSH / T4 PT/OT consultation Prognosis guarded The impression and plan of care has been dictated by Taylor Pierce Nurse Practitioner as directed. Dr. Tio MD I have performed a history and physical examination and medical decision making of this patient, discussed the same with the dictator, and agree with the dictators assessment and plan as written, documented as a scribe. Based on total visit time, I have performed more than 50% of this visit. 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 History of Any Multi-Drug Resistant Organisms: None Reported Past Surgical History: Adenoidectomy, Back Surgery, Bariatric Surgery, Cholecystectomy, Heart Catheterization, Hysterectomy, Tonsillectomy Additional Past Surgical History / Comment(s): Cardiac caths , lap band placed/since removed, low back surgery, L carpal tunnel release X2, pain clinic procedures, skin cancer removal, colonoscopies, bilateral cataract removals/lens implants. Past Anesthesia/Blood Transfusion Reactions: Previous Problems w/ Anesthesia Additional Past Anesthesia/Blood Transfusion Reaction / Comment(s): "Had too much anesthesia in 2007 for lap band removal, had to be bagged." Smoking Status: Second hand smoke exposure - Past Family History Sister(s) Family Medical History: Myocardial Infarction ([place]) Brother(s) Family Medical History: Cancer Additional Family Medical History / Comment(s): Colon Cancer. Mother Family Medical History: Dementia Additional Family Medical History / Comment(s): Mother of dementia at the age of 89yrs. Father Family Medical History: Cancer Additional Family Medical History / Comment(s): Pt states her father was treated for a sinus infection but really had leukemia and of this at the age of 72 yrs. Medications and Allergies Home Medications Medication Instructions Recorded Confirmed Type Atorvastatin [Lipitor] 80 mg PO HS@2100 06/30/18 12/19/21 History Pioglitazone [Actos] 15 mg PO DAILY@89909/13/20 12/19/21 History Potassium Chloride ER [K-Dur 20] 20 meq PO DAILY@0908/06/21 12/19/21 History Sertraline [Zoloft] 25 mg PO DAILY@89908/30/21 12/19/21 History Albuterol Nebulized [Ventolin 2.5 mg INHALATION RT-QID PRN 09/24/21 12/19/21 History Nebulized] Artificial Tears-Hypromellose 1 drop BOTH EYES TID PRN 09/24/21 12/19/21 History [Artificial Tear Drops] Docusate [Colace] 100 mg PO DAILY@89909/24/21 12/19/21 History Isosorbide Mononitrate ER [Imdur] 60 mg PO DAILY@89909/24/21 12/19/21 History Multivit-Min/Iron/Folic/Lutein 1 tab PO DAILY@89909/24/21 12/19/21 History [Centrum Silver Women Tablet] Acetaminophen Tab [Tylenol] 650 mg PO Q4H PRN 12/01/21 12/19/21 History Apixaban [Eliquis] 2.5 mg PO BID@0900,2100 12/01/21 12/19/21 History Aspirin [Adult Low Dose Aspirin EC] 81 mg PO DAILY@89912/01/21 12/19/21 Histo ry Levothyroxine Sodium [Synthroid] 125 mcg PO DAILY@0612/01/21 12/19/21 History Magnesium Oxide [Mag-Ox] 400 mg PO DAILY@89912/01/21 12/19/21 History Melatonin 10 mg PO HS@209912/01/21 12/19/21 History Omeprazole 40 mg PO DAILY@0912/01/21 12/19/21 History polyethylene glycoL 3350 [Miralax] 17 gm PO DAILY@89912/01/21 12/19/21 History Ferrous Sulfate [Feosol] 325 mg PO BID@899,2099 #60 tab 12/02/21 12/19/21 Rx Furosemide [Lasix] 40 mg PO BID #60 tab 12/02/21 12/19/21 Rx Insulin Lispro Protamin/Lispro 40 unit SQ DAILY #5 pen 12/02/21 12/19/21 Rx [humaLOG Mix 75-25 Kwikpen] busPIRone HCl [Buspar] 10 mg PO Q8H #90 tab 12/02/21 12/19/21 Rx Carvedilol [Coreg] 25 mg PO BID 12/19/21 12/19/21 History hydrALAZINE HCL [Apresoline] 75 mg PO TID 12/19/21 12/19/21 History lisinopriL 40 mg PO DAILY 12/19/21 12/19/21 History Allergies Allergy/AdvReac Type Severity Reaction Status Date / Time azithromycin Allergy Rash/Hives Verified 12/19/21 12:32 [From Zithromax Z-Jeanmarie] methylprednisolone Allergy Rash/Hives Verified 12/19/21 12:32 [From Medrol] sulfamethoxazole Allergy Rash/Hives Verified 12/19/21 12:32 [From Bactrim] trimethoprim [From Bactrim] Allergy Rash/Hives Verified 12/19/21 12:32 hydrochlorothiazide AdvReac lost Verified 12/19/21 12:32 balance and fell Physical Exam Vitals: Vital Signs Pulse Resp BP Pulse Ox 12/19/21 10:45 47 L 18 146/72 97 12/19/21 09:53 58 L 18 169/91 95 Intake and Output 12/19/21 12/19/21 12/19/21 06:59 14:59 22:59 Other: Weight 95.254 kg Results CBC & Chem 7: 12/19/21 10:08 12/19/21 10:08 Labs: Abnormal Lab Results - Last 24 Hours (Table) 12/19/21 12/19/21 12/19/21 Range/Units 10:08 10:08 10:08 MCHC 28.7 L (31.0-37.0) g/dL Lymphocytes # 0.7 L (1.0-4.8) k/uL BUN 34 H (7-17) mg/dL Creatinine 1.50 H (0.52-1.04) mg/dL Glucose 160 H (74-99) mg/dL POC Glucose (mg/dL) (75-99) mg/dL Urine Protein 1+ H (Negative) 12/19/21 Range/Units 10:19 MCHC (31.0-37.0) g/dL Lymphocytes # (1.0-4.8) k/uL BUN (7-17) mg/dL Creatinine (0.52-1.04) mg/dL Glucose (74-99) mg/dL POC Glucose (mg/dL) 129 H (75-99) mg/dL Urine Protein (Negative) Assessment and Plan Time with Patient: Greater than 30
[2021-12-19 16:59] LABS: Glucose,Whole Blood 256 mg/dL (75-99)
--- NOTE | 2021-12-19 17:27 | P.CNNES ---
History of Present Illness Consult date: 12/19/21 Requesting physician: Steve Somers Reason for Consult: Altered mental status History of Present Illness: Patient is a 81-year-old right-handed female came to the hospital today at 9:53 AM by ambulance. As per EMS flow sheet when they arrived, found 81-year-old patient with chief complaint of altered mental status. Fire department was present earlier, then they found patient on the floor of her living room. Her blood glucose was 65. Patient could not remember what happened or how she got on the floor. Patient complaining of head pain. Patient takes Eliquis daily. Patient was alert and oriented 2 with GCS of 14, with a repetitive questioning. Pupils are equal round and reacting. Patient is noted to have slurred speech. Patient's blood pressure was 199/93, which came up to 199/106. Pulse rate 56, respiration 18 and saturation 97%. Repeat Blood glucose 284. Vital signs arrival blood pressure 169/91. Patient afebrile. CT head showed no acute fracture or dislocation evident in the cervical spine. No acute intracranial hemorrhage, mass effect or midline shift. Possible manubrial fracture, indeterminate sclerosis, bone scan as indicated, pathologic fracture not excluded. Right pleural effusion. EKG shows sinus bradycardia with occasional PVCs. Left axis deviation. Possible right ventricular conduction delay. X-ray of the right hand showed fourth and fifth digits fracture. Chest x-ray showed suspect some mild basilar atelectasis. Pelvic x-ray showed some postoperative changes with no acute process. Patient's blood test shows normal CBC, PT/PTT, normal CMP, with mildly elevated BUN 34, creatinine 1.50. Ammonia is normal <9. Troponin negative. CK mildly elevated 148. TSH normal. UA normal, influenza and lombardo virus screen negative. Patient's hemoglobin A1c 7.5 on 11/17/2021. Patient's home medications include Lipitor 80 mg, Actos 15 mg, potassium, Zoloft 25 mg, albuterol, isosorbide, multivitamins, magnesium, omeprazole 40 mg, aspirin 81 mg, Eliquis 2.5 mg twice a day, levothyroxine, insulin, iron, Lasix 40 mg twice a day, BuSpar 10 mg every 8 hours, lisinopril 40 mg Coreg 25 mg twice a day and hydralazine 75 mg 3 times a day. Patient states that she does remember that she woke up at 6:30 in the morning. She wanted to go to the restroom. At around 7 AM when she got up to go to the bathroom, got the walker and was turning around-revealed hit the door and she fell down. Patient believes that she had an appointment with her primary physician, who may have called the ambulance, as she did not show up in the office. Patient herself denies any slurred speech facial droop, focal weakness, paralysis. Patient believes that she did pee on the floor. Patient says that she has been using walker for last 2 years just to prevent from falls. She lives by herself. She does have diabetes. Patient believes that she did not eat much enough last night. No previous history of strokes or TIA. Patient at present feels just sore all over because of the fall. Otherwise denies any focal weakness. Review of Systems All other 14 point review of systems unremarkable except as mentioned in HPI. 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 History of Any Multi-Drug Resistant Organisms: None Reported Past Surgical History: Adenoidectomy, Back Surgery, Bariatric Surgery, Cholecystectomy, Heart Catheterization, Hysterectomy, Tonsillectomy Additional Past Surgical History / Comment(s): Cardiac caths , lap band placed/since removed, low back surgery, L carpal tunnel release X2, pain clinic procedures, skin cancer removal, colonoscopies, bilateral cataract removals/lens implants. Past Anesthesia/Blood Transfusion Reactions: Previous Problems w/ Anesthesia Additional Past Anesthesia/Blood Transfusion Reaction / Comment(s): "Had too much anesthesia in 2007 for lap band removal, had to be bagged." Smoking Status: Second hand smoke exposure - Past Family History Sister(s) Family Medical History: Myocardial Infarction ([place]) Brother(s) Family Medical History: Cancer Additional Family Medical History / Comment(s): Colon Cancer. Mother Family Medical History: Dementia Additional Family Medical History / Comment(s): Mother of dementia at the age of 89yrs. Father Family Medical History: Cancer Additional Family Medical History / Comment(s): Pt states her father was treated for a sinus infection but really had leukemia and of this at the age of 72 yrs. Medications and Allergies Home Medications Medication Instructions Recorded Confirmed Type Atorvastatin [Lipitor] 80 mg PO HS@209906/30/18 12/19/21 History Pioglitazone [Actos] 15 mg PO DAILY@89909/13/20 12/19/21 History Potassium Chloride ER [K-Dur 20] 20 meq PO DAILY@89908/06/21 12/19/21 History Sertraline [Zoloft] 25 mg PO DAILY@89908/30/21 12/19/21 History Albuterol Nebulized [Ventolin 2.5 mg INHALATION RT-QID PRN 09/24/21 12/19/21 History Nebulized] Artificial Tears-Hypromellose 1 drop BOTH EYES TID PRN 09/24/21 12/19/21 History [Artificial Tear Drops] Docusate [Colace] 100 mg PO DAILY@89909/24/21 12/19/21 History Isosorbide Mononitrate ER [Imdur] 60 mg PO DAILY@89909/24/21 12/19/21 History Multivit-Min/Iron/Folic/Lutein 1 tab PO DAILY@89909/24/21 12/19/21 History [Centrum Silver Women Tablet] Acetaminophen Tab [Tylenol] 650 mg PO Q4H PRN 12/01/21 12/19/21 History Apixaban [Eliquis] 2.5 mg PO BID@12/01/21 12/19/21 History Aspirin [Adult Low Dose Aspirin EC] 81 mg PO DAILY@89912/01/21 12/19/21 History Levothyroxine Sodium [Synthroid] 125 mcg PO DAILY@59912/01/21 12/19/21 History Magnesium Oxide [Mag-Ox] 400 mg PO DAILY@0900 12/01/21 12/19/21 History Melatonin 10 mg PO HS@2100 12/01/21 12/19/21 History Omeprazole 40 mg PO DAILY@0900 12/01/21 12/19/21 History polyethylene glycoL 3350 [Miralax] 17 gm PO DAILY@0900 12/01/21 12/19/21 History Ferrous Sulfate [Feosol] 325 mg PO BID@0900,2100 #60 tab 12/02/21 12/19/21 Rx Furosemide [Lasix] 40 mg PO BID #60 tab 12/02/21 12/19/21 Rx Insulin Lispro Protamin/Lispro 40 unit SQ DAILY #5 pen 12/02/21 12/19/21 Rx [humaLOG Mix 75-25 Kwikpen] busPIRone HCl [Buspar] 10 mg PO Q8H #90 tab 12/02/21 12/19/21 Rx Carvedilol [Coreg] 25 mg PO BID 12/19/21 12/19/21 History hydrALAZINE HCL [Apresoline] 75 mg PO TID 12/19/21 12/19/21 History lisinopriL 40 mg PO DAILY 12/19/21 12/19/21 History Allergies Allergy/AdvReac Type Severity Reaction Status Date / Time azithromycin Allergy Rash/Hives Verified 12/19/21 12:32 [From Zithromax Z-Jeanmarie] methylprednisolone Allergy Rash/Hives Verified 12/19/21 12:32 [From Medrol] sulfamethoxazole Allergy Rash/Hives Verified 12/19/21 12:32 [From Bactrim] trimethoprim [From Bactrim] Allergy Rash/Hives Verified 12/19/21 12:32 hydrochlorothiazide AdvReac lost Verified 12/19/21 12:32 balance and fell Physical Examination - Vital Signs Vital Signs: Vital Signs Temp Pulse Resp BP Pulse Ox 12/19/21 15:20 97.4 F L 12/19/21 15:00 68 18 142/61 98 12/19/21 10:45 47 L 18 146/72 97 12/19/21 09:53 58 L 18 169/91 95 Intake and Output 12/19/21 12/19/21 12/19/21 06:59 14:59 22:59 Other: Weight 95.254 kg Patient is an elderly female, in no acute distress. Patient is alert awake oriented to time place and person. Speech and language functions are normal. Attention, concentration and fund of knowledge is adequate. No aphasia or dysarthria. Patient can name and repeat very well. On cranial examination, pupils are equal, round and reacting to light, visual gomez are full on confrontation, no neglect. Her extraocular muscles are intact with no nystagmus. Face is symmetric, tongue protrudes to the midline. Palatal elevation and sensation normal, hearing and shoulder shrug normal, facial sensation normal. Shoulder shrug normal. On muscle strength testing, there is no pronator drift and the strength is normal in arms and legs distally and proximally. Deep tendon reflexes are 1+ in the upper limbs, 1 in the lower limbs and plantars downgoing. Sensory to touch is equal with no neglect. Cerebellar function showed no ataxia for [id number] testing. No dysdiadochokinesia. Tone and bulk of muscles normal. Gait deferred. On general examination, there is no carotid bruit or murmur, S1-S2 audible. Abdomen is soft nontender. No organomegaly, bowel sounds present Chest is clear. Peripheral pulses are present. No edema. Results - Laboratory Findings CBC and BMP: 12/19/21 10:08 12/19/21 10:08 Abnormal Lab Findings: Abnormal Labs 12/19/21 12/19/21 12/19/21 10:08 10:08 10:08 MCHC 28.7 L Lymphocytes # 0.7 L BUN 34 H Creatinine 1.50 H Glucose 160 H POC Glucose (mg/dL) Creatine Kinase Urine Protein 1+ H 12/19/21 12/19/21 12/19/21 10:19 16:04 16:55 MCHC Lymphocytes # BUN Creatinine Glucose POC Glucose (mg/dL) 129 H 256 H Creatine Kinase 148 H Urine Protein Assessment and Plan Assessment: * Status post fall, because of the walker tripping on the door. * Altered mental status, likely due to hypoglycemia of blood sugar 65. * History of mitral stenosis. * Paroxysmal Atrial fibrillation on anticoagulation with Eliquis * Hypertension * Diabetes * Obesity Plan: * Patient had a carotid Doppler on 11/10/2019, which revealed atheromatous plaque without significant stenosis, antegrade flow in both vertebral arteries. * 2-D echo from 11/10/2021 revealed normal left ventricular size. Moderate concentric LVH. Left ventricle systolic function is normal with EF between 55-60%. Left atrium is mildly dilated. Aortic valve is trileaflet is severely thickened. There is mild aortic regurgitation. There is severe aortic stenosis. Mild mitral annular calcification present. We will consult cardiology for severe aortic stenosis and current syncopal spell. Patient states that she is in the process of getting valvular surgical repair. * Patient's hemoglobin A1c 7.5 on 11/17/2021. Suggest optimize control of diabetes to target A1c <7.0, but avoid any episodes of hypoglycemia. * Lipid panel with cholesterol 107, LDL 37, HDL 48 and triglycerides 104 on 11/17/2021. Continue high intensity statins. Patient is on Lipitor 80 mg daily. * B12, folate. * Orthopedic surgery seen the patient for right fourth and fifth digit fracture. * Neurology will follow. Thank you for the consult.
--- NOTE | 2021-12-19 18:11 | P.CNOR ---
History of Present Illness - HPI Consult date: 12/19/21 History of present illness: This patient is an 81- year old female with a past medical history of chronic kidney disease, atrial fibrillation on eliquis, heart failure, COPD, CVA, diabetes mellitus, hyperlipidemia, hypertension who presented to [facility] emergency department via EMS yesterday due to altered mental status. Per family and chart, she is alert and orientated x3 at baseline. Orthopedics is consulted for right ring and small finger fractures. Patient is examined bedside this afternoon with Dr. Field. Patient states she fell yesterday at home and developed right hand pain following the fall. She localizes her pain to the right hand. She notes mild pain along the right groin with movement. Otherwise she has no other complaints at this time. Vital signs stable. 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 History of Any Multi-Drug Resistant Organisms: None Reported Past Surgical History: Adenoidectomy, Back Surgery, Bariatric Surgery, Cholecystectomy, Heart Catheterization, Hysterectomy, Tonsillectomy Additional Past Surgical History / Comment(s): Cardiac caths , lap band placed/since removed, low back surgery, L carpal tunnel release X2, pain clinic procedures, skin cancer removal, colonoscopies, bilateral cataract removals/lens implants. Past Anesthesia/Blood Transfusion Reactions: Previous Problems w/ Anesthesia Additional Past Anesthesia/Blood Transfusion Reaction / Comm: "Had too much anesthesia in 2007 for lap band removal, had to be bagged." Smoking Status: Second hand smoke exposure - Past Family History Sister(s) Family Medical History: Myocardial Infarction (MT) Brother(s) Family Medical History: Cancer Additional Family Medical History / Comment(s): Colon Cancer. Mother Family Medical History: Dementia Additional Family Medical History / Comment(s): Mother of dementia at the age of 89yrs. Father Family Medical History: Cancer Additional Family Medical History / Comment(s): Pt states her father was treated for a sinus infection but really had leukemia and of this at the age of 72 yrs. Medications and Allergies Home Medications Medication Instructions Recorded Confirmed Type Atorvastatin [Lipitor] 80 mg PO HS@209906/30/18 12/19/21 History Pioglitazone [Actos] 15 mg PO DAILY@89909/13/20 12/19/21 History Potassium Chloride ER [K-Dur 20] 20 meq PO DAILY@89908/06/21 12/19/21 History Sertraline [Zoloft] 25 mg PO DAILY@89908/30/21 12/19/21 History Albuterol Nebulized [Ventolin 2.5 mg INHALATION RT-QID PRN 09/24/21 12/19/21 History Nebulized] Artificial Tears-Hypromellose 1 drop BOTH EYES TID PRN 09/24/21 12/19/21 History [Artificial Tear Drops] Docusate [Colace] 100 mg PO DAILY@89909/24/21 12/19/21 History Isosorbide Mononitrate ER [Imdur] 60 mg PO DAILY@89909/24/21 12/19/21 History Multivit-Min/Iron/Folic/Lutein 1 tab PO DAILY@89909/24/21 12/19/21 History [Centrum Silver Women Tablet] Acetaminophen Tab [Tylenol] 650 mg PO Q4H PRN 12/01/21 12/19/21 History Apixaban [Eliquis] 2.5 mg PO BID@899,209912/01/21 12/19/21 History Aspirin [Adult Low Dose Aspirin EC] 81 mg PO DAILY@89912/01/21 12/19/21 History Levothyroxine Sodium [Synthroid] 125 mcg PO DAILY@59912/01/21 12/19/21 History Magnesium Oxide [Mag-Ox] 400 mg PO DAILY@89912/01/21 12/19/21 History Melatonin 10 mg PO HS@209912/01/21 12/19/21 History Omeprazole 40 mg PO DAILY@89912/01/2122 History polyethylene glycoL 3350 [Miralax] 17 gm PO DAILY@0900 12/01/21 12/19/21 History Ferrous Sulfate [Feosol] 325 mg PO BID@0900,2100 #60 tab 12/02/21 12/19/21 Rx Furosemide [Lasix] 40 mg PO BID #60 tab 12/02/21 12/19/21 Rx Insulin Lispro Protamin/Lispro 40 unit SQ DAILY #5 pen 12/02/21 12/19/21 Rx [humaLOG Mix 75-25 Kwikpen] busPIRone HCl [Buspar] 10 mg PO Q8H #90 tab 12/02/21 12/19/21 Rx Carvedilol [Coreg] 25 mg PO BID 12/19/21 12/19/21 History hydrALAZINE HCL [Apresoline] 75 mg PO TID 12/19/21 12/19/21 History lisinopriL 40 mg PO DAILY 12/19/21 12/19/21 History Allergies Allergy/AdvReac Type Severity Reaction Status Date / Time azithromycin Allergy Rash/Hives Verified 12/19/21 12:32 [From Zithromax Z-Jeanmarie] methylprednisolone Allergy Rash/Hives Verified 12/19/21 12:32 [From Medrol] sulfamethoxazole Allergy Rash/Hives Verified 12/19/21 12:32 [From Bactrim] trimethoprim [From Bactrim] Allergy Rash/Hives Verified 12/19/21 12:32 hydrochlorothiazide AdvReac lost Verified 12/19/21 12:32 balance and fell Physical Examination On examination, patient sitting up in bed in no apparent distress. She is alert and orientated x3. Her head appears normocephalic and atraumatic. Her breathing appears non-labored. On inspection of the right hand, there is diffuse ecchymosis and swelling of the hand. No open wounds. Diffuse pain with palpation of the ring and small finger. ROM is not tested at this time. Motor and sensory function intact, fingers are warm and well perfused. Very mild pain with PROM of the right hip. Patient is able to perform straight leg raise without issue. No pain with PROM of the left hip. Results Right hand x-ray 12/19/21: Minimally displaced fracture of the proximal phalanx of the ring finger. Minimally displaced fracture of the proximal phalanx of the small finger. Pelvis x-ray 12/19/21: No acute fractures identified. - Labs Labs: Abnormal Lab Results - Last 24 Hours (Table) 12/19/21 12/19/21 12/19/21 Range/Units 10:08 10:08 10:08 MCHC 28.7 L (31.0-37.0) g/dL Lymphocytes # 0.7 L (1.0-4.8) k/uL BUN 34 H (7-17) mg/dL Creatinine 1.50 H (0.52-1.04) mg/dL Glucose 160 H (74-99) mg/dL POC Glucose (mg/dL) (75-99) mg/dL Creatine Kinase (30-135) U/L Urine Protein 1+ H (Negative) 12/19/21 12/19/21 12/19/21 Range/Units 10:19 16:04 16:55 MCHC (31.0-37.0) g/dL Lymphocytes # (1.0-4.8) k/uL BUN (7-17) mg/dL Creatinine (0.52-1.04) mg/dL Glucose (74-99) mg/dL POC Glucose (mg/dL) 129 H 256 H (75-99) mg/dL Creatine Kinase 148 H (30-135) U/L Urine Protein (Negative) H & H 12/19/21 Range/Units 10:08 Hgb 12.8 D (11.4-16.0) gm/dL Hct 44.7 (34.0-46.0) % Coagulation 12/19/21 Range/Units 10:08 INR 1.0 (<1.2) Result Diagrams: 12/19/21 10:08 12/19/21 10:08 Assessment and Plan Assessment: Proximal phalanx fracture right small finger. Proximal phalanx fracture right ring finger. Plan: - Patient was examined with Dr. Field. Clinical and imaging findings were discussed with the patient. No surgical intervention recommend. We will order the patient a removable brace. Patient should wear this brace at all times. May remove for showers. She should keep the right hand elevated for swelling and pain control. - No lifting with the right hand. - Patient should follow-up in the office in one week with Dr. Griffin for repeat x- rays.
[2021-12-19] MEDS: hydrALAZINE HCL 25 MG TAB PO SCH ×2 (18:13→20:41)
[2021-12-19] MEDS: INSULIN ASPART (NovoLOG) 100 UNIT/ML VIAL SQ SCH ×2 (18:13→20:35)
[2021-12-19] MEDS: FUROSEMIDE 40 MG TAB PO SCH (18:13)
[2021-12-19] MEDS: busPIRone HCl 10 MG TAB PO SCH (18:13)
[2021-12-19] MEDS: ALBUTEROL NEBULIZED 2.5 MG/3 ML INHALATION PRN (19:37)
[2021-12-19 20:19] LABS: Glucose,Whole Blood 352 mg/dL (75-99)
[2021-12-19] MEDS: FERROUS SULFATE 325 MG TAB PO SCH (20:35)
[2021-12-19] MEDS: ATORVASTATIN 80 MG TAB PO SCH (20:35)
[2021-12-19] MEDS: APIXABAN 2.5 MG TABLET PO SCH (20:35)
[2021-12-19] MEDS: MELATONIN 5 MG TABLET PO SCH (20:35)
[2021-12-20 00:01] LABS: Glucose,Whole Blood 272 mg/dL (75-99)
[2021-12-20] MEDS: busPIRone HCl 10 MG TAB PO SCH ×3 (00:22→17:47)
[2021-12-20 01:48] LABS: Glucose,Whole Blood 256 mg/dL (75-99)
[2021-12-20] MEDS: INSULIN ASPART (NovoLOG) 100 UNIT/ML VIAL SQ SCH ×5 (02:17→20:44)
[2021-12-20] MEDS: HYDROcodone/APAP 5-325MG 1 EACH TAB PO PRN ×3 (04:02→20:04)
[2021-12-20] MEDS: LEVOTHYROXINE 125 MCG TAB PO SCH (04:03)
[2021-12-20 07:28] LABS: Glucose,Whole Blood 196 mg/dL (75-99)
[2021-12-20] MEDS: ALBUTEROL NEBULIZED 2.5 MG/3 ML INHALATION PRN (07:32)
[2021-12-20] MEDS: ASPIRIN 81 MG PO SCH (08:37)
[2021-12-20] MEDS: APIXABAN 2.5 MG TABLET PO SCH ×2 (08:37→20:04)
[2021-12-20] MEDS: hydrALAZINE HCL 25 MG TAB PO SCH ×3 (08:37→21:25)
[2021-12-20] MEDS: MULTIVITAMINS, THERA 1 EACH TAB PO SCH (08:37)
[2021-12-20] MEDS: SERTRALINE 25 MG TAB PO SCH (08:37)
[2021-12-20] MEDS: MAGNESIUM OXIDE 400 MG TAB PO SCH (08:37)
[2021-12-20] MEDS: FERROUS SULFATE 325 MG TAB PO SCH ×2 (08:37→20:04)
[2021-12-20] MEDS: FUROSEMIDE 40 MG TAB PO SCH ×2 (08:38→17:47)
[2021-12-20] MEDS: lisinopriL 20 MG TAB PO SCH (08:38)
[2021-12-20] MEDS: ISOSORBIDE MONONITRATE ER 60 MG TAB.ER.24H PO SCH (08:38)
[2021-12-20] MEDS: PANTOPRAZOLE 40 MG TABLET PO SCH (08:38)
[2021-12-20] MEDS: DOCUSATE 100 MG CAP PO SCH (08:38)
[2021-12-20] MEDS: INSULN ASP PRT/INSULIN ASPART 100 UNIT/ML 10 ML VIAL SQ SCH ×3 (08:39→17:50)
[2021-12-20 10:27] LABS: Basophils # (A) 0.03 X 10*3/uL (0.00-0.10); Basophils % (A) 0.3 %; Eosinophils # (A) 0.38 X 10*3/uL (0.04-0.35); Eosinophils % (A) 4.2 %; HCT 35.7 % (37.2-46.3); HGB 10.5 g/dL (12.0-15.0); Immature Grans, Automated 0.5 %; Lymphocytes # (A) 1.72 X 10*3/uL (0.90-5.00); Lymphocytes % (A) 18.9 %; MCH 28.2 pg (27.0-32.0); MCHC 29.4 g/dL (32.0-37.0); MCV 95.7 fL (80.0-97.0); Mean Platelet Volume 11.4 fL (9.5-12.2); Monocytes % (A) 16.4 %; NRBC Per 100 WBC 0 /100 WBCS (0.0-0.0); Neutrophils # (A) 5.44 X 10*3/uL (1.80-7.70); Neutrophils % (A) 59.7 %; Platelet Count 246 X 10*3/uL (140-440); RBC 3.73 X 10*6/uL (4.10-5.20); RDW 14.8 % (11.5-14.5); WBC 9.12 X 10*3/uL (4.50-10.00)
[2021-12-20 10:36] LABS: African American GFR (CKD) 35.7 (60.0-200.0); Anion Gap 11.7 mmol/L (10.00-18.00); BUN/Creat Ratio 21.15 Ratio (12.00-20.00); Blood Urea Nitrogen 33.2 mg/dL (9.0-27.0); Calcium 8.6 mg/dL (8.7-10.3); Carbon Dioxide 26.7 mmol/L (20.0-27.5); Non-African American GFR(CKD) 30.8 (60.0-200.0)
[2021-12-20 11:41] LABS: Glucose,Whole Blood 166 mg/dL (75-99)
--- NOTE | 2021-12-20 13:27 | CDI ---
Documentation Clarification Form Date: 12/20/2021 12:54:31 PM From: Teagan Villela RN, CCDS Phone: [phone] Admit Date: 12/19/2021 12:50:00 PM Patient Name: Neva Pool Visit Number: [id number] Discharge Date: ATTENTION: The Clinical Documentation Specialists (CDI) and [facility] Coding Staff appreciate your assistance in clarifying documentation. Please respond to the clarification below the line at the bottom and electronically sign. The CDI & [facility] Coding staff will review the response and follow-up if needed. Please note: Queries are made part of the Legal Health Record. If you have any questions, please contact the author of this message via ITS. Dr. Ken Hurd Your patient has the documented symptom of Altered Mental Status likely due to hypoglycemia. Additional clarification regarding the etiology/cause of this symptom is requested. History/Risk Factors: Diabetes Mellitus, Hypertension Obesity, Clinical Indicators: 81 year-old female found down at home per EMS, confused, garbled and repetitive speech. She has a history of falls and hypoglycemia per family. Her blood glucose was 65 at home, and was a/o x2 with GCS of 14. Blood sugar in ED was 160, 129. 5/2 vital signs: 169/91 58 18 95 % RA 5/2 Labs: BUN 34, CR 150 5/2 CT Brain: No acute intracranial hemorrhage, mass effect Possible manubrial fracture Treatment: Cardiac/Telemetry monitoring Blood glucose monitoring ac/hs w Sliding scale (NovoLog) Neuro checks per protocol Hypoglycemia protocol Consistent Carbohydrate Diet Please clarify the etiology of the symptom of Altered Mental Status: [ ] Metabolic encephalopathy likely due to Hyperglycemia [ ] Other condition (please specify) [ ] Unable to determine (Template Last Revised: September 2020) Altered mental status probably from hypoglycemia with blood glucose of 65. Although was not extremely low, but still a probable cause. No other metabolic derangement noticed otherwise during that admission. Altered mental status was only reported by the EMS. Her mentation has returned back to baseline each time (x2) that I saw her in the hospital. On review of records, it appears with previous admission of 12/01/2021, patient had abnormal VBG elevated pCO2 87 mmHg. Apparently ABG or VBG was not tested during this admission. Please let me know if any other concerns. Ken Hurd MD [facility]
--- NOTE | 2021-12-20 13:58 | P.PN ---
Subjective Progress Note Date: 12/20/21 This is a pleasant 81 year old female who presents to the with concern for altered mental status. Patient was called by one of her outside providers who felt patient was confused and had slurred speech while on the phone with her and EMS was called to the house. They did find patient on the floor, unknown last well. She has a history of falls related to hypoglycemia per family, however they felt that patient is alert x 3 and this is her baseline mentation. Patient does complain of numbness and tinging in hand and fingers. Chronic conditions include chronic kidney disease which creatinine appears baseline, atrial fibrillation maintained on eliquis, diastolic heart failure, severe aortic stenosis, COPD, CVA/TIA, diabetes mellitus type 2 with peripheral neuropathy, hyperlipidemia, hypertension, osteoarthritis, sleep apnea does not have a CPAP machine yet, syncope, hypothyroidism, skin cancer with resection. Previous history of cardiac catheterization, LAP-BAND surgery with removal, bilateral cataract removal with lens implants. Patient was recently hospitalized in November of this year for pulmonary edema and diastolic heart failure. She was evaluated during that hospital stay for aortic stenosis and was supposed to follow up with the cardiothoracic surgeon 2 weeks ago outpatient. Most recent echocardiogram showing an EF of 55 to 60%. [facility] Patient is admitted to the hospital with consult placed to neurology services, orthopedic services. Blood count on admission unremarkable, BUN 34, creatinine 1.50, glucose 160, troponin 0.024. Liver enzymes are negative, CK level pending. Urinalysis showing proteinuria. Covid, Influenza A/B, RSV are all negative EKG showing sinus bradycardia heart rate in the 50s, with ventricular premature complexes, QT interval of 489, no ST or T wave changes, stable from previous EKG. Chest xray shows mild basilar atelectasis. Imaging of pelvis shows no acute fracture. Head cervical spine CT shows no acute fracture/dislocation of cervical spine. No intracranial hemorrhage, mass effect or midline shift. There is possible manubrial fracture, indeterminate sclerosis, consider bone scan as pathological fracture is not excluded. Right hand xray showing fourth and fifth finger digit fractures. 12/20/2021 Patient evaluated today resting in bed. She does report some pain about a 4-10 to her right digits however she states the [place] is helping the pain when she re ceives it. Orthopedics have ordered a removable brace with instructions to follow up in the office in 7-10 days after discharge. Otherwise no acute events over night, she is alert x 3 at time of my evaluation. She states blood sugar was in the 60s at home and had caught her walker leg on a table which is why she fell. Neurology work up consists of monitoring, altered mental status likely related to hypoglycemia, no evidence for acute stroke. Cardiology consultation is pending at this time. Labs today showing white count 9.12, hemoglobin 10.5, platelet count 246, sodium 141, potassium 4.0, BUN 33.2, creatinine 1.6, GFR slightly decreased at 30.8, blood glucose 190s to 160s. Folate within normal limits at 9.90, B12 normal at 938. A1C, TSH within normal limits. Create kinase slightly elevated at 148 yesterday. Patient has been resumed on her home insulin we did decrease slightly morning and evening dose. Hemodynamically stable. Patient was supposed to see cardiothoracic in the office today for further work up regarding possible TAVR, this was discussed with [employer] SAMPLE MATCHER, it was for follow up and PFT, which she can reschedule outpatient. Review of Systems Constitutional: Denied any fatigue denied any fever. Cardio vascular: denied any chest pain, palpitations Gastrointestinal: denied any nausea, vomiting, diarrhea Pulmonary: Denied any shortness of breath at rest, reports shortnes of breath with exertion, denies cough Neurologic denied any new focal deficits All inpatient medications were reviewed and appropriate changes in these medications as dictated in the interval history and assessment and plan. PHYSICAL EXAMINATION: GENERAL: The patient is alert and oriented x3, not in any acute distress. Well developed, well nourished. HEENT: Pupils are round and equally reacting to light. EOMI. No scleral icterus. No conjunctival pallor. Normocephalic, atraumatic. No pharyngeal erythema. No thyromegaly. CARDIOVASCULAR: Systolic murmur heard in the aortic area PULMONARY: Chest is clear to auscultation, no wheezing or crackles. ABDOMEN: Soft, nontender, nondistended, normoactive bowel sounds. No palpable organomegaly. MUSCULOSKELETAL: Soft tissue swelling and ecchymosis right hand 4/5 digits which are taped EXTREMITIES: No cyanosis, clubbing, or pedal edema. NEUROLOGICAL: Gross neurological examination did not reveal any focal deficits. SKIN: No rashes. Assessment and Plan Assessment Altered mental status most likely from hypoglycemic episode, resolved Chronic diastolic failure not in acute exacerbation Paroxysmal atrial Fibrillation with EKG showing sinus bradycardia on admission COPD, not in acute exacerbation Diabetes Mellitus type 2 with hyperglycemia History of hypoglycemic episodes History of anemia with recent hospitalization work up for GIB with EG D/Colonoscopy at that time showing esophagitis, gastritis Chronic Kidney Disease stage 3, creatinine at baseline History of aortic stenosis with outpatient work up for possible TAVR Hypertension Hyperlipidemia GI Prophylaxis DVT Prophylaxis Full Code Plan Pending cardiology evaluation Bradycardia has resolved; carvedilol resumed at half dose Continue to hold Actos SQ insulin resumed at lower dose Follow up cardiothoracic outpatient PT/OT consultation Prognosis guarded The impression and plan of care has been dictated by Taylor Pierce, Nurse Practitioner as directed. Dr. Tio MD I have performed a history and physical examination and medical decision making of this patient, discussed the same with the dictator, and agree with the dictators assessment and plan as written, documented as a scribe. Based on total visit time, I have performed more than 50% of this visit. Objective - Vital Signs Vital signs: Vital Signs Temp 97.9 F 12/20/21 11:38 Pulse 67 12/20/21 11:38 Resp 16 12/20/21 11:38 BP 138/63 12/20/21 11:38 Pulse Ox 96 12/20/21 11:38 Intake & Output 12/19/21 12/20/21 12/20/21 18:59 06:59 18:59 Intake Total 480 Balance 480 Weight 95.254 kg Intake: Oral 480 Other: # Voids 1 4 1 # Bowel Movements 1 - Labs CBC & Chem 7: 12/20/21 07:48 12/20/21 07:48 Labs: Abnormal Lab Results - Last 24 Hours (Table) 12/19/21 12/19/21 12/19/21 Range/Units 16:04 16:55 20:18 RBC (4.10-5.20) X 10*6/uL Hgb (12.0-15.0) g/dL Hct (37.2-46.3) % MCHC (32.0-37.0) g/dL RDW (11.5-14.5) % Immature Gran # (0.00-0.04) X 10*3/uL Monocytes # (0.20-1.00) X 10*3/uL Eosinophils # (0.04-0.35) X 10*3/uL BUN (9.0-27.0) mg/dL Creatinine (0.6-1.5) mg/dL Est GFR (CKD-EPI)AfAm (60.0-200.0) Est GFR (CKD-EPI)NonAf (60.0-200.0) BUN/Creatinine Ratio (12.00-20.00) Ratio Glucose (70-110) mg/dL POC Glucose (mg/dL) 256 H 352 H (75-99) mg/dL Calcium (8.7-10.3) mg/dL Creatine Kinase 148 H (30-135) U/L 12/19/21 12/20/21 12/20/21 Range/Units 23:59 01:47 07:12 RBC (4.10-5.20) X 10*6/uL Hgb (12.0-15.0) g/dL Hct (37.2-46.3) % MCHC (32.0-37.0) g/dL RDW (11.5-14.5) % Immature Gran # (0.00-0.04) X 10*3/uL Monocytes # (0.20-1.00) X 10*3/uL Eosinophils # (0.04-0.35) X 10*3/uL BUN (9.0-27.0) mg/dL Creatinine (0.6-1.5) mg/dL Est GFR (CKD-EPI)AfAm (60.0-200.0) Est GFR (CKD-EPI)NonAf (60.0-200.0) BUN/Creatinine Ratio (12.00-20.00) Ratio Glucose (70-110) mg/dL POC Glucose (mg/dL) 272 H 256 H 196 H (75-99) mg/dL Calcium (8.7-10.3) mg/dL Creatine Kinase (30-135) U/L 12/20/21 12/20/21 12/20/21 Range/Units 07:48 07:48 11:40 RBC 3.73 L (4.10-5.20) X 10*6/uL Hgb 10.5 L (12.0-15.0) g/dL Hct 35.7 L (37.2-46.3) % MCHC 29.4 L (32.0-37.0) g/dL RDW 14.8 H (11.5-14.5) % Immature Gran # 0.05 H (0.00-0.04) X 10*3/uL Monocytes # 1.50 H (0.20-1.00) X 10*3/uL Eosinophils # 0.38 H (0.04-0.35) X 10*3/uL BUN 33.2 H (9.0-27.0) mg/dL Creatinine 1.6 H (0.6-1.5) mg/dL Est GFR (CKD-EPI)AfAm 35.7 L (60.0-200.0) Est GFR (CKD-EPI)NonAf 30.8 L (60.0-200.0) BUN/Creatinine Ratio 21.15 H (12.00-20.00) Ratio Glucose 204 H (70-110) mg/dL POC Glucose (mg/dL) 166 H (75-99) mg/dL Calcium 8.6 L (8.7-10.3) mg/dL Creatine Kinase (30-135) U/L Assessment and Plan Time with Patient: Less than 30
--- NOTE | 2021-12-20 14:22 | P.CRDCN ---
History of Present Illness Consult date: 12/20/21 History of present illness: HISTORY OF PRESENT ILLNESS: This is a 81 year old female with a past medical history significant for paroxysmal atrial fibrillation, hypertension, hyperlipidemia, COPD, diabetes, hypothyroidism, CVA, chronic kidney disease, nonobstructive coronary artery disease, severe aortic stenosis, obstructive sleep apnea, chronic heart failure with preserved ejection fraction, and pleural effusion with right-sided thoracentesis in July 2021. Patient follows in the office with Dr. Hernandez. We have been asked to see the patient in consultation for syncope. Patient examined at the bedside. Patient states she was walking out of the bathroom when her walker got stuck in the doorway and she fell. She denies having any dizz iness or lightheadedness. She did not lose consciousness. This appears to be a mechanical fall. Patient denies any chest pain or pressure. She denies SOB. Denies dizziness or lightheadedness. * EKG reveals sinus bradycardia * Chest xray suspect some mild basilar atelectasis * Laboratory data: WBC 9.12. Hemoglobin 10.5. Platelet count 246. Sodium 141. Potassium 4.0. B UN 33. Creatinine 1.6. * Patient underwent EGD and colonoscopy on 11/21/2021 revealing antral gastritis and mild diverticulosis * Echocardiogram completed in October 2021 revealed ejection fraction 55-60%, severe aortic stenosis with a peak/mean gradient of 48 mmHg/34 mmHg, moderate mitral regurgitation, mild tricuspid regurgitation, mild pulmonary hypertension with RVSP of 39 mmHg * Current home cardiac medications include lisinopril 40 mg daily, carvedilol 25 mg twice a day, hydralazine 75 mg 3 times a day, Imdur 60 mg daily, Lasix 40 mg twice a day, Lipitor 80 mg daily, aspirin 81 mg daily, aloe quest 2.5 mg twice a day * Cardiac catheterization history: October 2021 revealed calcified aortic valve and mitral annulus, mild coronary artery disease, severe aortic stenosis, and mild pulmonary hypertension * Patient underwent BURKE and October 2021 revealing normal left ventricular size and systolic function, severely calcified aortic valve with moderate aortic stenosis by mean gradient and severe by planimetry, moderate mitral and tricuspid regurgitation, moderate to severe pulmonary hypertension and no shunting across the interatrial septum. REVIEW OF SYSTEMS: At the time of my exam: CONSTITUTIONAL: Denies fever or chills. HEENT: Denies blurred vision, vision changes, or eye pain. Denies hemoptysis CARDIOVASCULAR: Denies chest pain. Denies orthopnea. Denies PND. Denies palpitat ions RESPIRATORY: Denies shortness of breath. GASTROINTESTINAL: Denies abdominal pain. Denies nausea or vomiting. HEMATOLOGIC: Denies bleeding disorders. GENITOURINARY: Denies any blood in urine. SKIN: Denies pruitis. Denies rash. PHYSICAL EXAM: VITAL SIGNS: Reviewed. GENERAL: Well-developed in no acute distress. HEENT: Head is normocephalic. Pupils are equal, round. Sclerae anicteric. Mucous membranes of the mouth are moist. Neck supple. No JVD or thyromegaly LUNGS: Respirations even and unlabored. Lungs essentially clear to auscultation bilaterally. HEART: Regular rate and rhythm. S1 and S2 heard. Systolic murmur noted. ABDOMEN: Soft. Nondistended. Nontender. EXTREMITIES: Normal range of motion. No clubbing or cyanosis. Peripheral pulses intact. No lower extremity edema NEUROLOGIC: Awake and alert. Oriented x 3. ASSESSMENT: Altered mental status S/P mechanical fall, no evidence of syncope Chronic heart failure with preserved ejection fraction Paroxysmal atrial fibrillation Severe aortic stenosis Hypertension Hyperlipidemia Nonobstructive coronary artery disease Obstructive sleep apnea Chronic kidney disease COPD History of pneumonia History of pleural effusion with right-sided thoracentesis in July 2021 PLAN: Continue current cardiac medications Patients heartrate was minimally bradycardic with a heart rate in the high 50s. Heart rate now 60-70s. Her beta alejandro has been resumed at a lower dose per primary. Patients fall is mechanical in nature with no evidence of syncope at this time She is being worked up outpatient for TAVR in the near future Patient is stable from a cardiac standpoint. Follow up outpatient with Dr. Hernandez Nurse practitioner note has been reviewed by physician. Signing provider agrees with the documented findings, assessment, and plan of care. 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 History of Any Multi-Drug Resistant Organisms: None Reported Past Surgical History: Adenoidectomy, Back Surgery, Bariatric Surgery, Cholecystectomy, Heart Catheterization, Hysterectomy, Tonsillectomy Additional Past Surgical History / Comment(s): Cardiac caths , lap band placed/since removed, low back surgery, L carpal tunnel release X2, pain clinic procedures, skin cancer removal, colonoscopies, bilateral cataract removals/lens implants. Past Anesthesia/Blood Transfusion Reactions: Previous Problems w/ Anesthesia Additional Past Anesthesia/Blood Transfusion Reaction / Comment(s): "Had too much anesthesia in 2007 for lap band removal, had to be bagged." Smoking Status: Second hand smoke exposure - Past Family History Sister(s) Family Medical History: Myocardial Infarction (PR) Brother(s) Family Medical History: Cancer Additional Family Medical History / Comment(s): Colon Cancer. Mother Family Medical History: Dementia Additional Family Medical History / Comment(s): Mother of dementia at the age of 89yrs. Father Family Medical History: Cancer Additional Family Medical History / Comment(s): Pt states her father was treated for a sinus infection but really had leukemia and of this at the age of 72 yrs. Medications and Allergies Home Medications Medication Instructions Recorded Confirmed Type Atorvastatin [Lipitor] 80 mg PO HS@2100 06/30/18 12/19/21 History Pioglitazone [Actos] 15 mg PO DAILY@89909/13/20 12/19/21 History Potassium Chloride ER [K-Dur 20] 20 meq PO DAILY@89908/06/21 12/19/21 History Sertraline [Zoloft] 25 mg PO DAILY@89908/30/21 12/19/21 History Albuterol Nebulized [Ventolin 2.5 mg INHALATION RT-QID PRN 09/24/21 12/19/21 History Nebulized] Artificial Tears-Hypromellose 1 drop BOTH EYES TID PRN 09/24/21 12/19/21 History [Artificial Tear Drops] Docusate [Colace] 100 mg PO DAILY@89909/24/21 12/19/21 History Isosorbide Mononitrate ER [Imdur] 60 mg PO DAILY@89909/24/21 12/19/21 History Multivit-Min/Iron/Folic/Lutein 1 tab PO DAILY@89909/24/21 12/19/21 History [Centrum Silver Women Tablet] Acetaminophen Tab [Tylenol] 650 mg PO Q4H PRN 12/01/21 12/19/21 History Apixaban [Eliquis] 2.5 mg PO BID@899,209912/01/21 12/19/21 History Aspirin [Adult Low Dose Aspirin EC] 81 mg PO DAILY@89912/01/21 12/19/21 History Levothyroxine Sodium [Synthroid] 125 mcg PO DAILY@59912/01/21 12/19/21 History Magnesium Oxide [Mag-Ox] 400 mg PO DAILY@89912/01/21 12/19/21 History Melatonin 10 mg PO HS@209912/01/21 12/19/21 History Omeprazole 40 mg PO DAILY@89912/01/21 12/19/21 History polyethylene glycoL 3350 [Miralax] 17 gm PO DAILY@89912/01/21 12/19/21 History Ferrous Sulfate [Feosol] 325 mg PO BID@899,2099 #60 tab 12/02/21 12/19/21 Rx Furosemide [Lasix] 40 mg PO BID #60 tab 12/02/21 12/19/21 Rx Insulin Lispro Protamin/Lispro 40 unit SQ DAILY #5 pen 12/02/21 12/19/21 Rx [humaLOG Mix 75-25 Kwikpen] busPIRone HCl [Buspar] 10 mg PO Q8H #90 tab 12/02/21 12/19/21 Rx Carvedilol [Coreg] 25 mg PO BID 12/19/21 12/19/21 History hydrALAZINE HCL [Apresoline] 75 mg PO TID 12/19/21 12/19/21 History lisinopriL 40 mg PO DAILY 12/19/21 12/19/21 History Allergies Allergy/AdvReac Type Severity Reaction Status Date / Time azithromycin Allergy Rash/Hives Verified 12/19/21 12:32 [From Zithromax Z-Jeanmarie] methylprednisolone Allergy Rash/Hives Verified 12/19/21 12:32 [From Medrol] sulfamethoxazole Allergy Rash/Hives Verified 12/19/21 12:32 [From Bactrim] trimethoprim [From Bactrim] Allergy Rash/Hives Verified 12/19/21 12:32 hydrochlorothiazide AdvReac lost Verified 12/19/21 12:32 balance and fell Physical Exam Vitals: Vital Signs Temp Pulse Pulse Resp BP BP Pulse Ox 12/20/21 11:38 97.9 F 67 16 138/63 96 12/20/21 08:46 60 172/76 12/20/21 07:41 72 12/20/21 07:32 70 12/20/21 04:19 98.1 F 63 16 111/59 96 12/19/21 20:00 98.2 F 82 18 159/74 97 12/19/21 19:53 72 12/19/21 19:38 68 12/19/21 15:20 97.4 F L 12/19/21 15:00 68 18 142/61 98 Intake and Output 12/19/21 12/20/21 12/20/21 22:59 06:59 14:59 Intake Total 120 360 Balance 120 360 Intake: Oral 120 360 Other: # Voids 1 4 1 # Bowel Movements 1 Results 12/20/21 07:48 12/20/21 07:48 Cardiac Enzymes 12/19/21 12/19/21 Range/Units 16:04 21:12 Troponin I 0.023 0.030 (0.000-0.034) ng/mL CBC 12/20/21 Range/Units 07:48 WBC 9.12 (4.50-10.00) X 10*3/uL RBC 3.73 L (4.10-5.20) X 10*6/uL Hgb 10.5 L (12.0-15.0) g/dL Hct 35.7 L (37.2-46.3) % Plt Count 246 (140-440) X 10*3/uL Comprehensive Metabolic Panel 12/20/21 Range/Units 07:48 Sodium 141 (135-145) mmol/L Potassium 4.0 (3.5-5.5) mmol/L Chloride 103 (96-109) mmol/L Carbon Dioxide 26.7 (20.0-27.5) mmol/L BUN 33.2 H (9.0-27.0) mg/dL Creatinine 1.6 H (0.6-1.5) mg/dL Glucose 204 H (70-110) mg/dL Calcium 8.6 L (8.7-10.3) mg/dL Current Medications Generic Name Dose Route Start Last Admin Trade Name Freq PRN Reason Stop Dose Admin Acetaminophen 650 mg 12/19/21 14:59 Acetaminophen Tab 325 Mg Tab PO Q4H PRN Pain Hydrocodone Bitart/Acetaminophen 1 each 12/19/21 14:08 12/20/21 04:02 Hydrocodone/Apap 5-325mg 1 Each Tab PO 1 each Q6HR PRN Administration Pain Albuterol Sulfate 2.5 mg 12/19/21 14:59 12/20/21 07:32 Albuterol Nebulized 2.5 Mg/3 Ml INHALATION 2.5 mg RT-QID PRN Administration Shortness Of Breath Apixaban 2.5 mg 12/19/21 21:00 12/20/21 08:37 Apixaban 2.5 Mg Tablet PO 2.5 mg BID@0900,2100 [facility] Administration Protocol Artificial Tears 1 drops 12/19/21 14:59 Artificial Tears-Hypromellose Drops 15 Ml Btl BOTH EYES TID PRN Dry Eye(s) Aspirin 81 mg 12/20/21 09:00 12/20/21 08:37 Aspirin 81 Mg PO 81 mg DAILY@0900 [facility] Administration Atorvastatin Calcium 80 mg 12/19/21 21:00 12/19/21 20:35 Atorvastatin 80 Mg Tab PO 80 mg HS@2100 [facility] Administration Buspirone HCl 10 mg 12/19/21 16:00 12/20/21 08:37 Buspirone Hcl 10 Mg Tab PO 10 mg Q8HR [facility] Administration Docusate Sodium 100 mg 12/20/21 09:00 12/20/21 08:38 Docusate 100 Mg Cap PO 100 mg DAILY@0900 [facility] Administration Ferrous Sulfate 325 mg 12/19/21 21:00 12/20/21 08:37 Ferrous Sulfate 325 Mg Tab PO 325 mg BID@0900,2100 [facility] Administration Furosemide 40 mg 12/19/21 16:00 12/20/21 08:38 Furosemide 40 Mg Tab PO 40 mg BID@0900,1600 [facility] Administration Hydralazine HCl 75 mg 12/19/21 16:00 12/20/21 08:37 Hydralazine Hcl 25 Mg Tab PO 75 mg TID [facility] Administration Sodium Chloride 1,000 mls @ 20 mls/hr 12/19/21 13:00 12/19/21 14:57 Saline 0.9% IV 20 mls/hr .Q24H [facility] Administration Insulin Aspart 30 unit 12/20/21 07:30 12/20/21 08:39 Insuln Asp Prt/Insulin Aspart 100 Unit/Ml 10 Ml Vial SQ 30 unit [id number] [facility] Administration Insulin Aspart 20 unit 12/20/21 17:30 Insuln Asp Prt/Insulin Aspart 100 Unit/Ml 10 Ml Vial SQ AC-SUPPER [facility] Insulin Aspart 0 unit 12/20/21 02:00 12/20/21 12:57 Insulin Aspart (Novolog) 100 Unit/Ml Vial SQ 2 unit [id number] Administration Protocol Isosorbide Mononitrate 60 mg 12/20/21 09:00 12/20/21 08:38 Isosorbide Mononitrate Er 60 Mg Tab.Er.24h PO 60 mg DAILY@0900 [facility] Administration Levothyroxine Sodium 125 mcg 12/20/21 06:00 12/20/21 04:03 Levothyroxine 125 Mcg Tab PO 125 mcg DAILY@0600 [facility] Administration Lisinopril 40 mg 12/20/21 09:00 12/20/21 08:38 Lisinopril 20 Mg Tab PO 40 mg DAILY [facility] Administration Magnesium Oxide 400 mg 12/20/21 09:00 12/20/21 08:37 Magnesium Oxide 400 Mg Tab PO 400 mg DAILY@0900 [facility] Administration Melatonin 10 mg 12/19/21 21:00 12/19/21 20:35 Melatonin 5 Mg Tablet PO 10 mg HS@2100 [facility] Administration Multivitamins 1 each 12/20/21 09:00 12/20/21 08:37 Multivitamins, Thera 1 Each Tab PO 1 each DAILY@0900 [facility] Administration Naloxone HCl 0.2 mg 12/19/21 12:48 Naloxone 0.4 Mg/Ml 1 Ml Vial IV Q2M PRN Opioid Reversal Pantoprazole Sodium 40 mg 12/20/21 09:00 12/20/21 08:38 Pantoprazole 40 Mg Tablet PO 40 mg DAILY@0900 [facility] Administration Polyethylene Glycol 17 gm 12/19/21 14:59 Polyethylene Glycol 3350 17 Gm Powd.Pack PO DAILY@0900 PRN Constipation Sertraline HCl 25 mg 12/20/21 09:00 12/20/21 08:37 Sertraline 25 Mg Tab PO 25 mg DAILY@0900 [facility] Administration Intake and Output 12/19/21 12/20/21 12/20/21 22:59 06:59 14:59 Intake Total 120 360 Balance 120 360 Intake: Oral 120 360 Other: # Voids 1 4 1 # Bowel Movements 1 12/20/21 07:48 12/20/21 07:48
[2021-12-20] MEDS: SODIUM CHLORIDE 0.9% 1,000 ML IV SCH (16:16)
[2021-12-20 17:28] LABS: Glucose,Whole Blood 126 mg/dL (75-99)
[2021-12-20] MEDS: carvediloL 12.5 MG TAB PO SCH (17:47)
[2021-12-20] MEDS: MELATONIN 5 MG TABLET PO SCH (20:04)
[2021-12-20] MEDS: ATORVASTATIN 80 MG TAB PO SCH (20:04)
[2021-12-20 20:42] LABS: Glucose,Whole Blood 248 mg/dL (75-99)
[2021-12-21] MEDS: busPIRone HCl 10 MG TAB PO SCH ×4 (01:04→23:24)
[2021-12-21 02:02] LABS: Glucose,Whole Blood 278 mg/dL (75-99)
[2021-12-21] MEDS: HYDROcodone/APAP 5-325MG 1 EACH TAB PO PRN (02:04)
[2021-12-21] MEDS: INSULIN ASPART (NovoLOG) 100 UNIT/ML VIAL SQ SCH ×5 (02:04→21:22)
[2021-12-21] MEDS: LEVOTHYROXINE 125 MCG TAB PO SCH (04:23)
[2021-12-21 07:06] LABS: Glucose,Whole Blood 231 mg/dL (75-99)
[2021-12-21] MEDS: MAGNESIUM OXIDE 400 MG TAB PO SCH (08:41)
[2021-12-21] MEDS: FUROSEMIDE 40 MG TAB PO SCH ×2 (08:41→17:39)
[2021-12-21] MEDS: ASPIRIN 81 MG PO SCH (08:41)
[2021-12-21] MEDS: APIXABAN 2.5 MG TABLET PO SCH ×2 (08:41→21:20)
[2021-12-21] MEDS: ISOSORBIDE MONONITRATE ER 60 MG TAB.ER.24H PO SCH (08:41)
[2021-12-21] MEDS: SERTRALINE 25 MG TAB PO SCH (08:41)
[2021-12-21] MEDS: DOCUSATE 100 MG CAP PO SCH (08:41)
[2021-12-21] MEDS: lisinopriL 20 MG TAB PO SCH (08:41)
[2021-12-21] MEDS: MULTIVITAMINS, THERA 1 EACH TAB PO SCH (08:41)
[2021-12-21] MEDS: hydrALAZINE HCL 25 MG TAB PO SCH ×3 (08:41→21:21)
[2021-12-21] MEDS: carvediloL 12.5 MG TAB PO SCH ×2 (08:41→17:38)
[2021-12-21] MEDS: PANTOPRAZOLE 40 MG TABLET PO SCH (08:42)
[2021-12-21] MEDS: INSULN ASP PRT/INSULIN ASPART 100 UNIT/ML 10 ML VIAL SQ SCH ×2 (08:42→17:35)
[2021-12-21] MEDS: FERROUS SULFATE 325 MG TAB PO SCH ×2 (08:42→21:21)
[2021-12-21 10:07] LABS: African American GFR (CKD) 28.7 (60.0-200.0); Anion Gap 12.4 mmol/L (10.00-18.00); BUN/Creat Ratio 19.15 Ratio (12.00-20.00); Calcium 8.4 mg/dL (8.7-10.3); Non-African American GFR(CKD) 24.8 (60.0-200.0); Potassium 3.8 mmol/L (3.5-5.5)
[2021-12-21 11:11] LABS: Glucose,Whole Blood 180 mg/dL (75-99)
[2021-12-21] MEDS ORDERED: ALPRAZolam 0.25 MG TAB PO PRN (11:58)
--- NOTE | 2021-12-21 14:40 | P.PN ---
Subjective Progress Note Date: 12/21/21 This is a pleasant 81 year old female who presents to the with concern for altered mental status. Patient was called by one of her outside providers who felt patient was confused and had slurred speech while on the phone with her and EMS was called to the house. They did find patient on the floor, unknown last well. She has a history of falls related to hypoglycemia per family, however they felt that patient is alert x 3 and this is her baseline mentation. Patient does complain of numbness and tinging in hand and fingers. Chronic conditions include chronic kidney disease which creatinine appears baseline, atrial fibrillation maintained on eliquis, diastolic heart failure, severe aortic steno sis, COPD, CVA/TIA, diabetes mellitus type 2 with peripheral neuropathy, hyperlipidemia, hypertension, osteoarthritis, sleep apnea does not have a CPAP machine yet, syncope, hypothyroidism, skin cancer with resection. Previous history of cardiac catheterization, LAP-BAND surgery with removal, bilateral cataract removal with lens implants. Patient was recently hospitalized in November of this year for pulmonary edema and diastolic heart failure. She was evaluated during that hospital stay for aortic stenosis and was supposed to follow up with the cardiothoracic surgeon 2 weeks ago outpatient. Most recent echocardiogram showing an EF of 55 to 60%. [facility] stay. Patient is admitted to the hospital with consult placed to neurology services, orthopedic services. Blood count on admission unremarkable, BUN 34, creatinine 1.50, glucose 160, troponin 0.024. Liver enzymes are negative, CK level pending. Urinalysis showing proteinuria. Covid, Influenza A/B, RSV are all negative EKG showing sinus bradycardia heart rate in the 50s, with ventricular premature complexes, QT interval of 489, no ST or T wave changes, stable from previous EKG. Chest xray shows mild basilar atelectasis. Imaging of pelvis shows no acute fracture. Head cervical spine CT shows no acute fracture/dislocation of cervical spine. No intracranial hemorrhage, mass effect or midline shift. There is possible manubrial fracture, indeterminate sclerosis, consider bone scan as pathological fracture is not excluded. Right hand xray showing fourth and fifth finger digit fractures. 12/20/2021 Patient evaluated today resting in bed. She does report some pain about a 4-10 to her right digits however she states the [place] is helping the pain when she receives it. Orthopedics have ordered a removable brace with instructions to follow up in the office in 7-10 days after discharge. Otherwise no acute events over night, she is alert x 3 at time of my evaluation. She states blood sugar was in the 60s at home and had caught her walker leg on a table which is why she fell. Neurology work up consists of monitoring, altered mental status likely related to hypoglycemia, no evidence for acute stroke. Cardiology consultation is pending at this time. Labs today showing white count 9.12, hemoglobin 10.5, platelet count 246, sodium 141, potassium 4.0, BUN 33.2, creatinine 1.6, GFR slightly decreased at 30.8, blood glucose 190s to 160s. Folate within normal limits at 9.90, B12 normal at 938. A1C, TSH within normal limits. Create kinase slightly elevated at 148 yesterday. Patient has been resumed on her home insulin we did decrease slightly morning and evening dose. Hemodynamically stable. Patient was supposed to see cardiothoracic in the office today for further work up regarding possible TAVR, this was discussed with [employer], it was for follow up and PFT, which she can reschedule outpatient. 12/21/2021 Patient is seen in follow-up this morning tearful on exam and extremely anxious about her upcoming possible TAVR procedure and the workup in progress. Cardiology has evaluated the patient recommending outpatient follow-up and will continue to see the patient in the outpatient setting. Patient also was evaluated by orthopedics and does have the brace for her right fourth and fifth digit fractures. Patient will also need follow-up with orthopedics in the outpatient setting for them. Patient reports to some mild improvement in pain with [place]. Patient reported to nursing staff this morning that she had to be discharged today or she would not have a ride. On exam patient was again extremely tearful and not feeling well and not ready for discharge. Will add low-dose Xanax and follow-up with the patient this afternoon. Patient denies chest pain currently or shortness of breath. Patient is afebrile. Review of Systems Constitutional: Denied any fatigue denied any fever. Reports anxiety Cardio vascular: denied any chest pain, palpitations Gastrointestinal: denied any nausea, vomiting, diarrhea Pulmonary: Denied any shortness of breath at rest, reports shortness of breath with exertion, denies cough Neurologic denied any new focal deficits All inpatient medications were reviewed and appropriate changes in these me dications as dictated in the interval history and assessment and plan. Active Medications Acetaminophen (Acetaminophen Tab 325 Mg Tab) 650 mg PO Q4H PRN PRN Reason: Pain Hydrocodone Bitart/Acetaminophen (Hydrocodone/Apap 5-325mg 1 Each Tab) 1 each PO Q6HR PRN PRN Reason: Pain Last Admin: 12/21/21 02:04 Dose: 1 each Documented by: Albuterol Sulfate (Albuterol Nebulized 2.5 Mg/3 Ml) 2.5 mg INHALATION RT-QID PRN PRN Reason: Shortness Of Breath Last Admin: 12/20/21 07:32 Dose: 2.5 mg Documented by: Alprazolam (Alprazolam 0.25 Mg Tab) 0.25 mg PO TID PRN PRN Reason: Anxiety Last Admin: 12/21/21 12:47 Dose: 0.25 mg Documented by: Apixaban (Apixaban 2.5 Mg Tablet) 2.5 mg PO BID@0900,2100 [facility]; Protocol Last Admin: 12/21/21 08:41 Dose: 2.5 mg Documented by: Artificial Tears (Artificial Tears-Hypromellose Drops 15 Ml Btl) 1 drops BOTH EYES TID PRN PRN Reason: Dry Eye(s) Aspirin (Aspirin 81 Mg) 81 mg PO DAILY@0900 [facility] Last Admin: 12/21/21 08:41 Dose: 81 mg Documented by: Atorvastatin Calcium (Atorvastatin 80 Mg Tab) 80 mg PO HS@2100 [facility] Last Admin: 12/20/21 20:04 Dose: 80 mg Documented by: Buspirone HCl (Buspirone Hcl 10 Mg Tab) 10 mg PO Q8HR [facility] Last Admin: 12/21/21 09:21 Dose: 10 mg Documented by: Carvedilol (Carvedilol 12.5 Mg Tab) 12.5 mg PO BID-W/MEALS [facility] Last Admin: 12/21/21 08:41 Dose: 12.5 mg Documented by: Docusate Sodium (Docusate 100 Mg Cap) 100 mg PO DAILY@0900 [facility] Last Admin: 12/21/21 08:41 Dose: 100 mg Documented by: Ferrous Sulfate (Ferrous Sulfate 325 Mg Tab) 325 mg PO BID@0900,2100 [facility] Last Admin: 12/21/21 08:42 Dose: 325 mg Documented by: Furosemide (Furosemide 40 Mg Tab) 40 mg PO BID@0900,1600 [facility] Last Admin: 12/21/21 08:41 Dose: 40 mg Documented by: Hydralazine HCl (Hydralazine Hcl 25 Mg Tab) 75 mg PO TID [facility] Last Admin: 12/21/21 08:41 Dose: 75 mg Documented by: Sodium Chloride (Saline 0.9%) 1,000 mls @ 20 mls/hr IV .Q24H [facility] Last Admin: 12/20/21 16:16 Dose: Not Given Documented by: Insulin Aspart (Insuln Asp Prt/Insulin Aspart 100 Unit/Ml 10 Ml Vial) 30 unit SQ AC-BRKFST [facility] Last Admin: 12/21/21 08:42 Dose: 30 unit Documented by: Insulin Aspart (Insuln Asp Prt/Insulin Aspart 100 Unit/Ml 10 Ml Vial) 20 unit SQ AC-SUPPER [facility] Last Admin: 12/20/21 17:50 Dose: Not Given Documented by: Insulin Aspart (Insulin Aspart (Novolog) 100 Unit/Ml Vial) 0 unit SQ [id number] [facility]; Protocol Last Admin: 12/21/21 12:47 Dose: 2 unit Documented by: Isosorbide Mononitrate (Isosorbide Mononitrate Er 60 Mg Tab.Er.24h) 60 mg PO DAILY@0900 [facility] Last Admin: 12/21/21 08:41 Dose: 60 mg Documented by: Levothyroxine Sodium (Levothyroxine 125 Mcg Tab) 125 mcg PO DAILY@0600 [facility] Last Admin: 12/21/21 04:23 Dose: 125 mcg Documented by: Lisinopril (Lisinopril 20 Mg Tab) 40 mg PO DAILY [facility] Last Admin: 12/21/21 08:41 Dose: 40 mg Documented by: Magnesium Oxide (Magnesium Oxide 400 Mg Tab) 400 mg PO DAILY@0900 [facility] Last Admin: 12/21/21 08:41 Dose: 400 mg Documented by: Melatonin (Melatonin 5 Mg Tablet) 10 mg PO HS@2100 [facility] Last Admin: 12/20/21 20:04 Dose: 10 mg Documented by: Multivitamins (Multivitamins, Thera 1 Each Tab) 1 each PO DAILY@0900 [facility] Last Admin: 12/21/21 08:41 Dose: 1 each Documented by: Naloxone HCl (Naloxone 0.4 Mg/Ml 1 Ml Vial) 0.2 mg IV Q2M PRN PRN Reason: Opioid Reversal Pantoprazole Sodium (Pantoprazole 40 Mg Tablet) 40 mg PO DAILY@0900 [facility] Last Admin: 12/21/21 08:42 Dose: 40 mg Documented by: Polyethylene Glycol (Polyethylene Glycol 3350 17 Gm Powd.Pack) 17 gm PO DAILY@0900 PRN PRN Reason: Constipation Sertraline HCl (Sertraline 25 Mg Tab) 25 mg PO DAILY@0900 [facility] Last Admin: 12/21/21 08:41 Dose: 25 mg Documented by: PHYSICAL EXAMINATION: GENERAL: The patient is alert and oriented x3, tearful and anxious on exam. Well developed, well nourished. HEENT: Pupils are round and equally reacting to light. EOMI. No scleral icterus. No conjunctival pallor. Normocephalic, atraumatic. No pharyngeal erythema. No thyromegaly. CARDIOVASCULAR: Systolic murmur heard in the aortic area PULMONARY: Diminished breath sounds bilaterally with some scattered rhonchi noted. ABDOMEN: Soft, nontender, nondistended, normoactive bowel sounds. No palpable organomegaly. MUSCULOSKELETAL: Soft tissue swelling and ecchymosis right hand 4/5 digits which are wrapped with the brace she just received EXTREMITIES: No cyanosis, clubbing, or pedal edema. NEUROLOGICAL: Gross neurological examination did not reveal any focal deficits. Diffusely weak SKIN: No rashes. Assessment: Altered mental status most likely from hypoglycemic episode, resolved Chronic diastolic failure not in acute exacerbation Paroxysmal atrial Fibrillation with EKG showing sinus bradycardia on admission COPD, not in acute exacerbation Diabetes Mellitus type 2 with hyperglycemia History of hypoglycemic episodes History of anemia with recent hospitalization work up for GIB with EGD/Colonoscopy at that time showing esophagitis, gastritis Chronic Kidney Disease stage 3, creatinine at baseline History of aortic stenosis with outpatient work up for possible TAVR Hypertension Hyperlipidemia GI Prophylaxis DVT Prophylaxis No Code Plan: Commend continue with current medications and management along with symptomatic treatment. We'll add low-dose Xanax as patient is extremely anxious and tearful on exam and extremely nervous about needing surgery on her heart Recommend continue with current medications and closely monitor Accu-Cheks before meals and at bedtime and continue with sliding scale Patient will need close outpatient follow-up with cardiothoracic surgery about possible TAVT PT/OT consultation Due to multiple complex medical issues, prognosis is guarded Possible discharge in 24 hours The impression and plan of care has been dictated by Eloise Sesay, Nurse Practitioner as directed. Dr. Charles MD I have performed a history and examination and MDM of this patient, discussed the same with the dictator, and agree with the dictator's assessment and plan as written ,documented as a scribe. Based on total visit time, I have performed more than 50% of the visit. Objective - Vital Signs Vital signs: Vital Signs Temp 98.3 F 12/21/21 04:21 Pulse 66 12/21/21 08:47 Resp 20 12/21/21 04:21 BP 150/77 12/21/21 08:47 Pulse Ox 97 12/21/21 04:21 Intake & Output 12/20/21 12/21/21 12/21/21 18:59 06:59 18:59 Intake Total 360 Balance 360 Intake: Oral 360 Other: # Voids 4 3 - Labs CBC & Chem 7: 12/20/21 07:48 12/21/21 06:32 Labs: Abnormal Lab Results - Last 24 Hours (Table) 12/20/21 12/20/21 12/20/21 Range/Units 07:48 07:48 11:40 RBC 3.73 L (4.10-5.20) X 10*6/uL Hgb 10.5 L (12.0-15.0) g/dL Hct 35.7 L (37.2-46.3) % MCHC 29.4 L (32.0-37.0) g/dL RDW 14.8 H (11.5-14.5) % Immature Gran # 0.05 H (0.00-0.04) X 10*3/uL Monocytes # 1.50 H (0.20-1.00) X 10*3/uL Eosinophils # 0.38 H (0.04-0.35) X 10*3/uL BUN 33.2 H (9.0-27.0) mg/dL Creatinine 1.6 H (0.6-1.5) mg/dL Est GFR (CKD-EPI)AfAm 35.7 L (60.0-200.0) Est GFR (CKD-EPI)NonAf 30.8 L (60.0-200.0) BUN/Creatinine Ratio 21.15 H (12.00-20.00) Ratio Glucose 204 H (70-110) mg/dL POC Glucose (mg/dL) 166 H (75-99) mg/dL Calcium 8.6 L (8.7-10.3) mg/dL 12/20/21 12/20/21 12/21/21 Range/Units 17:18 20:41 02:01 RBC (4.10-5.20) X 10*6/uL Hgb (12.0-15.0) g/dL Hct (37.2-46.3) % MCHC (32.0-37.0) g/dL RDW (11.5-14.5) % Immature Gran # (0.00-0.04) X 10*3/uL Monocytes # (0.20-1.00) X 10*3/uL Eosinophils # (0.04-0.35) X 10*3/uL BUN (9.0-27.0) mg/dL Creatinine (0.6-1.5) mg/dL Est GFR (CKD-EPI)AfAm (60.0-200.0) Est GFR (CKD-EPI)NonAf (60.0-200.0) BUN/Creatinine Ratio (12.00-20.00) Ratio Glucose (70-110) mg/dL POC Glucose (mg/dL) 126 H 248 H 278 H (75-99) mg/dL Calcium (8.7-10.3) mg/dL 12/21/21 Range/Units 07:04 RBC (4.10-5.20) X 10*6/uL Hgb (12.0-15.0) g/dL Hct (37.2-46.3) % MCHC (32.0-37.0) g/dL RDW (11.5-14.5) % Immature Gran # (0.00-0.04) X 10*3/uL Monocytes # (0.20-1.00) X 10*3/uL Eosinophils # (0.04-0.35) X 10*3/uL BUN (9.0-27.0) mg/dL Creatinine (0.6-1.5) mg/dL Est GFR (CKD-EPI)AfAm (60.0-200.0) Est GFR (CKD-EPI)NonAf (60.0-200.0) BUN/Creatinine Ratio (12.00-20.00) Ratio Glucose (70-110) mg/dL POC Glucose (mg/dL) 231 H (75-99) mg/dL Calcium (8.7-10.3) mg/dL
[2021-12-21] MEDS: SODIUM CHLORIDE 0.9% 1,000 ML IV SCH (15:14)
--- NOTE | 2021-12-21 15:27 | P.PN ---
Subjective Progress Note Date: 12/21/21 Patient was seen for a follow-up. Patient is laying comfortably in the bed. Offers no complaints. Patient does complain of being depressed because of so many medical conditions going on. She wants her aortic valve to be repaired as soon as possible. No syncopal spells, no focal symptoms. Objective - Vital Signs Vital signs: Vital Signs Temp 98.1 F 12/21/21 11:46 Pulse 63 12/21/21 11:46 Resp 20 12/21/21 11:46 BP 125/66 12/21/21 11:46 Pulse Ox 95 12/21/21 11:46 Intake & Output 12/20/21 12/21/21 12/21/21 18:59 06:59 18:59 Intake Total 360 Balance 360 Intake: Oral 360 Other: # Voids 4 3 - Exam Patient's mental status, speech and language functions are normal. Muscle strength is normal. Cranial nerves normal - Labs CBC & Chem 7: 12/20/21 07:48 12/21/21 06:32 Labs: Abnormal Lab Results - Last 24 Hours (Table) 12/20/21 12/20/21 12/21/21 Range/Units 17:18 20:41 02:01 BUN (9.0-27.0) mg/dL Creatinine (0.6-1.5) mg/dL Est GFR (CKD-EPI)AfAm (60.0-200.0) Est GFR (CKD-EPI)NonAf (60.0-200.0) Glucose (70-110) mg/dL POC Glucose (mg/dL) 126 H 248 H 278 H (75-99) mg/dL Calcium (8.7-10.3) mg/dL 12/21/21 12/21/21 12/21/21 Range/Units 06:32 07:04 11:10 BUN 36.0 H (9.0-27.0) mg/dL Creatinine 1.9 H (0.6-1.5) mg/dL Est GFR (CKD-EPI)AfAm 28.7 L (60.0-200.0) Est GFR (CKD-EPI)NonAf 24.8 L (60.0-200.0) Glucose 215 H (70-110) mg/dL POC Glucose (mg/dL) 231 H 180 H (75-99) mg/dL Calcium 8.4 L (8.7-10.3) mg/dL Assessment and Plan Assessment: * Status post fall, because of the walker tripping on the door. * Altered mental status, likely due to hypoglycemia of blood sugar 65. * History of severe Aortic valve stenosis. * Paroxysmal Atrial fibrillation on anticoagulation with Eliquis * Hypertension * Diabetes * Obesity Plan: * Patient had a carotid Doppler on 11/10/2019, which revealed atheromatous plaque without significant stenosis, antegrade flow in both vertebral arteries. * 2-D echo from 11/10/2021 revealed normal left ventricular size. Moderate concentric LVH. Left ventricle systolic function is normal with EF between 55-60%. Left atrium is mildly dilated. Aortic valve is trileaflet is severely thickened. There is mild aortic regurgitation. There is severe aortic stenosis. Mild mitral annular calcification present. We will consult cardiology for severe aortic stenosis and current syncopal spell. Patient states that she is in the process of getting valvular surgical repair. * Patient's hemoglobin A1c 7.5 on 11/17/2021. Suggest optimize control of diabetes to target A1c <7.0, but avoid any episodes of hypoglycemia. * Lipid panel with cholesterol 107, LDL 37, HDL 48 and triglycerides 104 on 11/17/2021. Continue high intensity statins. Patient is on Lipitor 80 mg daily. * B12 938, folate 9.9, hemoglobin A1c 6.0. * Orthopedic surgery seen the patient for right fourth and fifth digit fracture. * Suggest PT for gait training, maybe considered as outpatient. * No other neurological workup indicated. Neurologically clear.
[2021-12-21 17:09] LABS: Glucose,Whole Blood 108 mg/dL (75-99)
[2021-12-21 20:42] LABS: Glucose,Whole Blood 219 mg/dL (75-99)
[2021-12-21 21:02] VITALS: RESP 16
[2021-12-21] MEDS: ATORVASTATIN 80 MG TAB PO SCH (21:21)
[2021-12-21] MEDS: MELATONIN 5 MG TABLET PO SCH (21:21)
[2021-12-22 02:15] LABS: Glucose,Whole Blood 179 mg/dL (75-99)
[2021-12-22] MEDS: INSULIN ASPART (NovoLOG) 100 UNIT/ML VIAL SQ SCH ×3 (02:26→13:21)
[2021-12-22] MEDS: LEVOTHYROXINE 125 MCG TAB PO SCH (05:12)
[2021-12-22 05:37] VITALS: BP 145/68; PULSE 64; TEMP 98.3
[2021-12-22 07:11] LABS: Glucose,Whole Blood 170 mg/dL (75-99)
[2021-12-22] MEDS: INSULN ASP PRT/INSULIN ASPART 100 UNIT/ML 10 ML VIAL SQ SCH (07:47)
[2021-12-22] MEDS: ASPIRIN 81 MG PO SCH (07:48)
[2021-12-22] MEDS: APIXABAN 2.5 MG TABLET PO SCH (07:48)
[2021-12-22] MEDS: FERROUS SULFATE 325 MG TAB PO SCH (07:48)
[2021-12-22] MEDS: DOCUSATE 100 MG CAP PO SCH (07:48)
[2021-12-22] MEDS: MAGNESIUM OXIDE 400 MG TAB PO SCH (07:48)
[2021-12-22] MEDS: SERTRALINE 25 MG TAB PO SCH (07:48)
[2021-12-22] MEDS: hydrALAZINE HCL 25 MG TAB PO SCH (07:49)
[2021-12-22] MEDS: MULTIVITAMINS, THERA 1 EACH TAB PO SCH (07:49)
[2021-12-22] MEDS: ISOSORBIDE MONONITRATE ER 60 MG TAB.ER.24H PO SCH (07:49)
[2021-12-22] MEDS: carvediloL 12.5 MG TAB PO SCH (07:49)
[2021-12-22] MEDS: FUROSEMIDE 40 MG TAB PO SCH (07:49)
[2021-12-22] MEDS: lisinopriL 20 MG TAB PO SCH (07:49)
[2021-12-22] MEDS: PANTOPRAZOLE 40 MG TABLET PO SCH (07:49)
[2021-12-22] MEDS: busPIRone HCl 10 MG TAB PO SCH (07:49)
--- NOTE | 2021-12-22 11:18 | P.PN ---
Subjective Progress Note Date: 12/22/21 HISTORY OF PRESENT ILLNESS: This is a 81 year old female with a past medical history significant for paroxysmal atrial fibrillation, hypertension, hyperlipidemia, COPD, diabetes, hypothyroidism, CVA, chronic kidney disease, nonobstructive coronary artery disease, severe aortic stenosis, obstructive sleep apnea, chronic heart failure with preserved ejection fraction, and pleural effusion with right-sided thoracentesis in July 2021. Patient follows in the office with Dr. Hernandez. We have been asked to see the patient in consultation for syncope. Patient examined at the bedside. Patient states she was walking out of the bathroom when her walker got stuck in the doorway and she fell. She denies having any dizziness or lightheadedness. She did not lose consciousness. This appears to be a mechanical fall. Patient denies any chest pain or pressure. She denies SOB. Denies dizziness or lightheadedness. * EKG reveals sinus bradycardia * Chest xray suspect some mild basilar atelectasis * Laboratory data: WBC 9.12. Hemoglobin 10.5. Platelet count 246. Sodium 141. Potassium 4.0. B UN 33. Creatinine 1.6. * Patient underwent EGD and colonoscopy on 11/21/2021 revealing antral gastritis and mild diverticulosis * Echocardiogram completed in October 2021 revealed ejection fraction 55-60%, severe aortic stenosis with a peak/mean gradient of 48 mmHg/34 mmHg, moderate mitral regurgitation, mild tricuspid regurgitation, mild pulmonary hypertension with RVSP of 39 mmHg * Current home cardiac medications include lisinopril 40 mg daily, carvedilol 25 mg twice a day, hydralazine 75 mg 3 times a day, Imdur 60 mg daily, Lasix 40 mg twice a day, Lipitor 80 mg daily, aspirin 81 mg daily, aloe quest 2.5 mg twice a day * Cardiac catheterization history: October 2021 revealed calcified aortic valve and mitral annulus, mild coronary artery disease, severe aortic stenosis, and mild pulmonary hypertension * Patient underwent BURKE and October 2021 revealing normal left ventricular size a nd systolic function, severely calcified aortic valve with moderate aortic stenosis by mean gradient and severe by planimetry, moderate mitral and tricuspid regurgitation, moderate to severe pulmonary hypertension and no shunting across the interatrial septum. 12/22/2021 Patient examined this morning at the bedside. Patient denies chest pain or pressure. Patient denies shortness of breath. Patient's vital signs are stable. PHYSICAL EXAM: VITAL SIGNS: Reviewed. GENERAL: Well-developed in no acute distress. HEENT: Head is normocephalic. Pupils are equal, round. Sclerae anicteric. Mucous membranes of the mouth are moist. Neck supple. No JVD or thyromegaly LUNGS: Respirations even and unlabored. Lungs essentially clear to auscultation bilaterally. HEART: Regular rate and rhythm. S1 and S2 heard. Systolic murmur noted. ABDOMEN: Soft. Nondistended. Nontender. EXTREMITIES: Normal range of motion. No clubbing or cyanosis. Peripheral pulses intact. No lower extremity edema NEUROLOGIC: Awake and alert. Oriented x 3. ASSESSMENT: Altered mental status S/P mechanical fall, no evidence of syncope Chronic heart failure with preserved ejection fraction Paroxysmal atrial fibrillation Severe aortic stenosis Hypertension Hyperlipidemia Nonobstructive coronary artery disease Obstructive sleep apnea Chronic kidney disease COPD History of pneumonia History of pleural effusion with right-sided thoracentesis in July 2021 PLAN: Continue current cardiac medications She is being worked up outpatient for TAVR in the near future Patient is stable from a cardiac standpoint. Follow up outpatient with Dr. Hernandez We will sign off. Please reconsult if needed. Nurse practitioner note has been reviewed by physician. Signing provider agrees with the documented findings, assessment, and plan of care. Objective - Vital Signs Vital signs: Vital Signs Temp 98.3 F 12/22/21 05:00 Pulse 64 12/22/21 05:00 Resp 16 12/22/21 05:00 BP 145/68 12/22/21 05:00 Pulse Ox 94 L 12/22/21 05:00 Intake & Output 12/21/21 12/22/21 12/22/21 18:59 06:59 18:59 Other: # Voids 2 3 - Labs CBC & Chem 7: 12/20/21 07:48 12/21/21 06:32 Labs: Abnormal Lab Results - Last 24 Hours (Table) 12/21/21 12/21/21 12/22/21 Range/Units 17:07 20:40 02:14 POC Glucose (mg/dL) 108 H 219 H 179 H (75-99) mg/dL 12/22/21 Range/Units 07:09 POC Glucose (mg/dL) 170 H (75-99) mg/dL
[2021-12-22 11:25] LABS: Glucose,Whole Blood 144 mg/dL (75-99)
--- NOTE | 2021-12-23 10:10 | P.DS ---
Providers Date of admission: 12/19/21 12:50 Expected date of discharge: 12/22/21 Attending physician: Courtney Kinsey Consults: 12/19/21 13:09 Consult Physician Routine Consulting Provider: Ken Hurd Consult Reason/Comments: altered mental status Do you want consulting provider notified?: Yes 12/19/21 15:21 Consult Physician Routine Consulting Provider: Kulwinder Field Consult Reason/Comments: right hand 4th and 5th digit fracture Do you want consulting provider notified?: Yes 12/19/21 18:54 Consult Physician Routine Consulting Provider: Renée Hernandez Consult Reason/Comments: Syncope, severe aortic stenosis, Do you want consulting provider notified?: Yes Primary care physician: Stated None Hospital Course: Final diagnosis Altered mental status most likely from hypoglycemic episode, resolved Chronic diastolic failure not in acute exacerbation Paroxysmal atrial Fibrillation with EKG showing sinus bradycardia on admission COPD, not in acute exacerbation Diabetes Mellitus type 2 with hyperglycemia History of hypoglycemic episodes History of anemia with recent hospitalization work up for GIB with EGD/Colonoscopy at that time showing esophagitis, gastritis Chronic Kidney Disease stage 3, creatinine at baseline History of aortic stenosis with outpatient work up for possible TAVR Hypertension Hyperlipidemia GI Prophylaxis DVT Prophylaxis No Code Discharge disposition Patient is being discharged in a stable condition with guarded prognosis to home. Patient will follow-up with MICHELA Mejía in the outpatient setting upon discharge. Patient is to follow-up with Dr. Shai De Leon cardiothoracic surgery along with cardiology and orthopedics as scheduled. Total time taken is greater than 35 minutes. Hospital course This is a 64-year-old male who was recently admitted with altered mental status and found to have hypoglycemia and was evaluated by neurology. Patient also follows with cardiology and was evaluated by cardiology and is scheduled outpatient to follow-up with cardiothoracic surgery Dr. Shai De Leon for possible TAVR. Patient fell prior to admission having significant right hand pain and found to have fractures of the fourth and fifth digits and was evaluated by orthopedics and provided with a brace and encourage the patient to elevate while at rest and continue wearing the brace and may take the brace off for showering and will follow-up closely with orthopedics outpatient. Blood sugars poorly controlled and encourage the patient to continue with heart healthy consistent carb diet and frequent monitoring of Accu-Cheks before meals and at bedtime and keeping a diary for primary care follow-up. Patient is insulin-dependent and adjustments have been made. Currently no reports of chest pain, shortness of breath, or palpitations. Patient is afebrile. No reports of nausea or vomiting and patient is tolerating diet. Patient will be discharged home today. Her to prognosis On exam vital signs are stable. Cardio S1, S2 are muffled. Respiratory system shows diminished breath sounds at the bases with no wheezing or rhonchi noted. Abdomen is soft and obese, and nontender. Nervous system shows no focal deficits. Please refer to medication reconciliation sheet for a list of medications. The impression and plan of care has been dictated by Eloise Sesay, Nurse Practitioner as directed. Dr. Charles MD I have performed a history and examination and MDM of this patient, discussed the same with the dictator, and agree with the dictator's assessment and plan as written ,documented as a scribe. Based on total visit time, I have performed more than 50% of the visit. Patient Condition at Discharge: Fair Plan - Discharge Summary Discharge Rx Participant: No New Discharge Prescriptions: New Insuln Asp Prt/Insulin Aspart [NovoLOG MIX 70-30 VIAL] 30 unit SQ AC-BRKFST 30 Days #5 each carvediloL [Coreg*] 12.5 mg PO BID-W/MEALS 30 Days #60 tab INSULIN ASPART (NovoLOG) [NovoLOG (formulary)] 3 unit SQ ACHS 30 Days #4 each Insuln Asp Prt/Insulin Aspart [NovoLOG MIX 70-30 VIAL] 20 unit SQ AC-SUPPER 30 Days #5 each Continue Atorvastatin [Lipitor] 80 mg PO HS@2100 Sertraline [Zoloft] 25 mg PO DAILY@0900 Albuterol Nebulized [Ventolin Nebulized] 2.5 mg INHALATION RT-QID PRN PRN Reason: Shortness Of Breath Isosorbide Mononitrate ER [Imdur] 60 mg PO DAILY@0900 Multivit-Min/Iron/Folic/Lutein [Centrum Silver Women Tablet] 1 tab PO DA SABRINA@0900 Melatonin 10 mg PO HS@2100 Magnesium Oxide [Mag-Ox] 400 mg PO DAILY@0900 Aspirin [Adult Low Dose Aspirin EC] 81 mg PO DAILY@0900 Apixaban [Eliquis] 2.5 mg PO BID@0900,2100 Ferrous Sulfate [Feosol] 325 mg PO BID@0900,2100 #60 tab Furosemide [Lasix] 40 mg PO BID #60 tab lisinopriL 40 mg PO DAILY Potassium Chloride ER [K-Dur 20] 20 meq PO DAILY@0900 Artificial Tears-Hypromellose [Artificial Tear Drops] 1 drop BOTH EYES TID PRN PRN Reason: Dry Eye(S) Docusate [Colace] 100 mg PO DAILY@0900 Omeprazole 40 mg PO DAILY@0900 polyethylene glycoL 3350 [Miralax] 17 gm PO DAILY@0900 Levothyroxine Sodium [Synthroid] 125 mcg PO DAILY@0600 busPIRone HCl [Buspar] 10 mg PO Q8H #90 tab hydrALAZINE HCL [Apresoline] 75 mg PO TID Acetaminophen Tab [Tylenol] 650 mg PO Q4H PRN #60 tab PRN Reason: Pain Discontinued Pioglitazone [Actos] 15 mg PO DAILY@0900 Insulin Lispro Protamin/Lispro [humaLOG Mix 75-25 Kwikpen] 40 unit SQ DAILY #5 pen Carvedilol [Coreg] 25 mg PO BID Discharge Medication List Atorvastatin [Lipitor] 80 mg PO HS@209906/30/18 [History] Potassium Chloride ER [K-Dur 20] 20 meq PO DAILY@0908/06/21 [History] Sertraline [Zoloft] 25 mg PO DAILY@0908/30/21 [History] Albuterol Nebulized [Ventolin Nebulized] 2.5 mg INHALATION RT-QID PRN 09/24/21 [History] Artificial Tears-Hypromellose [Artificial Tear Drops] 1 drop BOTH EYES TID PRN 09/24/21 [History] Docusate [Colace] 100 mg PO DAILY@0909/24/21 [History] Isosorbide Mononitrate ER [Imdur] 60 mg PO DAILY@0909/24/21 [History] Multivit-Min/Iron/Folic/Lutein [Centrum Silver Women Tablet] 1 tab PO DAILY@0900 09/24/21 [History] Apixaban [Eliquis] 2.5 mg PO BID@0900,2100 12/01/21 [History] Aspirin [Adult Low Dose Aspirin EC] 81 mg PO DAILY@0900 12/01/21 [History] Levothyroxine Sodium [Synthroid] 125 mcg PO DAILY@0612/01/21 [History] Magnesium Oxide [Mag-Ox] 400 mg PO DAILY@0912/01/21 [History] Melatonin 10 mg PO HS@2100 12/01/21 [History] Omeprazole 40 mg PO DAILY@0912/01/21 [History] polyethylene glycoL 3350 [Miralax] 17 gm PO DAILY@89912/01/21 [History] Ferrous Sulfate [Feosol] 325 mg PO BID@899,2099 #60 tab 12/02/21 [Rx] Furosemide [Lasix] 40 mg PO BID #60 tab 12/02/21 [Rx] busPIRone HCl [Buspar] 10 mg PO Q8H #90 tab 12/02/21 [Rx] hydrALAZINE HCL [Apresoline] 75 mg PO TID 12/19/21 [History] lisinopriL 40 mg PO DAILY 12/19/21 [History] Acetaminophen Tab [Tylenol] 650 mg PO Q4H PRN #60 tab 12/21/21 [Rx] INSULIN ASPART (NovoLOG) [NovoLOG (formulary)] 3 unit SQ ACHS 30 Days #4 each 12/21/21 [Rx] Insuln Asp Prt/Insulin Aspart [NovoLOG MIX 70-30 VIAL] 20 unit SQ AC-SUPPER 30 Days #5 each 12/21/21 [Rx] Insuln Asp Prt/Insulin Aspart [NovoLOG MIX 70-30 VIAL] 30 unit SQ AC-BRKFST 30 Days #5 each 12/21/21 [Rx] carvediloL [Coreg*] 12.5 mg PO BID-W/MEALS 30 Days #60 tab 12/21/21 [Rx] Follow up Appointment(s)/Referral(s): Namita Mejía NPC [Nurse Practitioner] - 12/28/21 9:30 am Sherri Griffin DO [Doctor of Osteopathic Medicine] - 12/29/21 9:45 am [facility], [NON-STAFF] - 1 Week Ambulatory/Diagnostic Orders: Complete Blood Count w/diff [LAB.AMB] Time Frame: 3 Days, Location: None Selected Patient Instructions/Handouts: Acetaminophen (By mouth), Carvedilol (By mouth), Insulin Aspart, Recombinant (By injection), Insulin Aspart Protamine/Insulin Aspart (By injection) Activity/Diet/Wound Care/Special Instructions: Keep splint on right hand at all times. May remove for showers. No lifting with right hand. Keep elevated for swelling control. Follow-up with Dr. Griffin in one week at [facility]. Continue to monitor Accu-Cheks before meals and at bedtime and as needed and keep a diary for primary care follow-up Continue taking medications as prescribed NovoLog sliding scale 0-150 equals 0 units 151-200 equals 2 units 201-250 equals 4 units 251-300 equals 6 units 301-350 equals 8 units 351-400 equals 10 units Please notify provider if blood sugar is 400 or above Patient Is to follow-up with cardiology in the outpatient setting in 1 week Patient is to continue following with cardiothoracic surgery in the outpatient for possible TAVR Continue with heart healthy consistent carb diet Follow-up with primary care provider Namita Mejía on discharge Discharge Disposition: HOME WITH HOME HEALTH SERVICES
== END 2021-12-22 16:38 | disposition home health service (06) ==
LOC: EC 09:51 → INTOOBSV 12:50 → 5NMEDONC 12:50 → UNDODISIN 12-22 16:38
PROVIDERS: ADMIT Internal Medicine; ATTEND Internal Medicine
DX: R41.82 Altered mental status, unspecified (principal); E11.649 Type 2 diabetes mellitus with hypoglycemia without coma; I13.0 Hypertensive heart and chronic kidney disease with heart failure and stage 1 through stage 4 chronic kidney disease, or unspecified chronic kidney disease; I50.32 Chronic diastolic (congestive) heart failure; J98.11 Atelectasis; E03.9 Hypothyroidism, unspecified; E11.22 Type 2 diabetes mellitus with diabetic chronic kidney disease; I27.20 Pulmonary hypertension, unspecified; N18.30 Chronic kidney disease, stage 3 unspecified; E11.42 Type 2 diabetes mellitus with diabetic polyneuropathy; E11.65 Type 2 diabetes mellitus with hyperglycemia; E78.5 Hyperlipidemia, unspecified; G47.33 Obstructive sleep apnea (adult) (pediatric); I08.0 Rheumatic disorders of both mitral and aortic valves; I25.10 Atherosclerotic heart disease of native coronary artery without angina pectoris; I48.0 Paroxysmal atrial fibrillation; I49.3 Ventricular premature depolarization; J44.9 Chronic obstructive pulmonary disease, unspecified; M19.90 Unspecified osteoarthritis, unspecified site; E66.9 Obesity, unspecified; Z68.33 Body mass index [BMI] 33.0-33.9, adult; S62.604A Fracture of unspecified phalanx of right ring finger, initial encounter for closed fracture; S62.606A Fracture of unspecified phalanx of right little finger, initial encounter for closed fracture; W18.09XA Striking against other object with subsequent fall, initial encounter; Y92.009 Unspecified place in unspecified non-institutional (private) residence as the place of occurrence of the external cause; Z77.22 Contact with and (suspected) exposure to environmental tobacco smoke (acute) (chronic); Z79.01 Long term (current) use of anticoagulants; Z79.4 Long term (current) use of insulin; Z79.82 Long term (current) use of aspirin; Z79.84 Long term (current) use of oral hypoglycemic drugs; Z79.890 Hormone replacement therapy; Z79.899 Other long term (current) drug therapy; Z88.1 Allergy status to other antibiotic agents; Z88.2 Allergy status to sulfonamides; Z88.8 Allergy status to other drugs, medicaments and biological substances; Z85.828 Personal history of other malignant neoplasm of skin; Z86.73 Personal history of transient ischemic attack (TIA), and cerebral infarction without residual deficits; Z87.01 Personal history of pneumonia (recurrent); Z86.19 Personal history of other infectious and parasitic diseases; Z98.41 Cataract extraction status, right eye; Z98.42 Cataract extraction status, left eye; Z96.1 Presence of intraocular lens; Z90.710 Acquired absence of both cervix and uterus; Z98.84 Bariatric surgery status; Z91.81 History of falling; Z80.0 Family history of malignant neoplasm of digestive organs; Z80.6 Family history of leukemia; Z82.49 Family history of ischemic heart disease and other diseases of the circulatory system; Z82.0 Family history of epilepsy and other diseases of the nervous system
CPT/HCPCS: 99291; 36415; 94640 ×2; 93005 ×2; 80053; 80048 ×2; 84443 ×2; 82607; 82140; 82550; 82746; 83605; 83735; 84484; 85025 ×2; 85610; 85730; 81001; 83036; 87636; 72170; 73130; 71045; 72125; 70450; G0378 ×4

== ENCOUNTER → 2022-01-03 | Outpatient (CLI) | payer MEDICARE, OTHER | LOC: CPPFTMAIN 10:45 | PROVIDERS: ATTEND Thoracic Surgery (Cardiothoracic Vascular Surgery) | DX: I35.1 Nonrheumatic aortic (valve) insufficiency (principal); Z88.1 Allergy status to other antibiotic agents; Z88.8 Allergy status to other drugs, medicaments and biological substances; Z88.2 Allergy status to sulfonamides | CPT/HCPCS: 94060; 94726; 94729 ==

== ENCOUNTER 2022-02-07 15:15 | Inpatient (IN) | payer MEDICARE, OTHER ==
[2022-02-07] MEDS ORDERED: KETOROLAC 15 MG/ML 1 ML VIAL IM STA (17:40)
[2022-02-07 18:56] LABS: Basophils # (A) 0.1 k/uL (0-0.2); Basophils % (A) 1 %; Eosinophils # (A) 0.3 k/uL (0-0.7); Eosinophils % (A) 3 %; HCT 40.6 % (34.0-46.0); HGB 12.9 gm/dL (11.4-16.0); Hypochromasia Slight; Lymphocytes # (A) 1.3 k/uL (1.0-4.8); Lymphocytes % (A) 16 %; MCH 28.5 pg (25.0-35.0); MCHC 31.6 g/dL (31.0-37.0); Mean Platelet Volume 8.4; Monocytes # (A) 0.7 k/uL (0-1.0); Monocytes % (A) 9 %; Neutrophils # (A) 5.6 k/uL (1.3-7.7); Neutrophils % (A) 68 %; Platelet Count 239 k/uL (150-450); RBC 4.51 m/uL (3.80-5.40); RDW 13.9 % (11.5-15.5); WBC 8.2 k/uL (3.8-10.6)
[2022-02-07 19:10] LABS: MCV 90.1 fL (80.0-100.0)
[2022-02-07 19:13] LABS: Calcium 8.3 mg/dL (8.4-10.2); Potassium 4.5 mmol/L (3.5-5.1)
--- NOTE | 2022-02-07 19:35 | ED ---
Fall HPI - General Chief Complaint: Fall Stated Complaint: Fall-Back injury Time Seen by Provider: 02/07/22 17:28 Source: patient Mode of arrival: ambulatory - History of Present Illness Initial Comments: this 81-year-old female presents with a complaint of a fall. She states that this occurred early this morning. She is unsure exactly why she fell but did not apparently tripped on anything. She denies hitting her head. she thinks that she may have passed out. She is complaining of some pain into her lower back and into her sacral region. She states that this it is much worse with any movement. She denies any other injuries. There is no paresthesias. She denies any head, neck, or upper back pain. She does not normally take anything for pain at home but did take aspirin. No bowel or bladder abnormalities. She states that the pain is severe and much worse with going from lying to sitting. She seems to think that her blood sugar may have been low this morning when this occurred. She took her blood sugar later on and it was in the 200s. She normally will take insulin twice a day for her diabetes. No other complaints or modifying factors. - Related Data Home Medications Medication Instructions Recorded Confirmed Atorvastatin [Lipitor] 80 mg PO HS@209906/30/18 12/19/21 Potassium Chloride ER [K-Dur 20] 20 meq PO DAILY@0908/06/21 12/19/21 Sertraline [Zoloft] 25 mg PO DAILY@0900 08/30/21 12/19/21 Albuterol Nebulized [Ventolin 2.5 mg INHALATION RT-QID PRN 09/24/21 12/19/21 Nebulized] Artificial Tears-Hypromellose 1 drop BOTH EYES TID PRN 09/24/21 12/19/21 [Artificial Tear Drops] Docusate [Colace] 100 mg PO DAILY@89909/24/21 12/19/21 Isosorbide Mononitrate ER [Imdur] 60 mg PO DAILY@89909/24/21 12/19/21 Multivit-Min/Iron/Folic/Lutein 1 tab PO DAILY@0900 09/24/21 12/19/21 [Centrum Silver Women Tablet] Apixaban [Eliquis] 2.5 mg PO BID@0900,2100 12/01/21 12/19/21 Aspirin [Adult Low Dose Aspirin EC] 81 mg PO DAILY@0912/01/21 12/19/21 Levothyroxine Sodium [Synthroid] 125 mcg PO DAILY@0612/01/21 12/19/21 Magnesium Oxide [Mag-Ox] 400 mg PO DAILY@0912/01/21 12/19/21 Melatonin [Melatonin ER] 10 mg PO HS@2100 12/01/21 12/19/21 Omeprazole 40 mg PO DAILY@0912/01/21 12/19/21 polyethylene glycoL 3350 [Miralax] 17 gm PO DAILY@0912/01/21 12/19/21 hydrALAZINE HCL [Apresoline] 75 mg PO TID 12/19/21 12/19/21 lisinopriL 40 mg PO DAILY 12/19/21 12/19/21 Previous Rx's Medication Instructions Recorded Ferrous Sulfate [Feosol] 325 mg PO BID@0900,2100 #60 tab 12/02/21 Furosemide [Lasix] 40 mg PO BID #60 tab 12/02/21 busPIRone HCl [Buspar] 10 mg PO Q8H #90 tab 12/02/21 Acetaminophen Tab [Tylenol] 650 mg PO Q4H PRN #60 tab 12/21/21 INSULIN ASPART (NovoLOG) [NovoLOG 3 unit SQ ACHS 30 Days #4 each 12/21/21 (formulary)] Insuln Asp Prt/Insulin Aspart 20 unit SQ AC-SUPPER 30 Days #5 12/21/21 [NovoLOG MIX 70-30 VIAL] each Insuln Asp Prt/Insulin Aspart 30 unit SQ AC-BRKFST 30 Days #5 12/21/21 [NovoLOG MIX 70-30 VIAL] each carvediloL [Coreg*] 12.5 mg PO BID-W/MEALS 30 Days #60 12/21/21 tab Allergies Allergy/AdvReac Type Severity Reaction Status Date / Time azithromycin Allergy Rash/Hives Verified 02/07/22 15:48 [From Zithromax Z-Jeanmarie] methylprednisolone Allergy Rash/Hives Verified 02/07/22 15:48 [From Medrol] sulfamethoxazole Allergy Rash/Hives Verified 02/07/22 15:48 [From Bactrim] trimethoprim [From Bactrim] Allergy Rash/Hives Verified 02/07/22 15:48 hydrochlorothiazide AdvReac lost Verified 02/07/22 15:48 balance and fell Review of Systems ROS Statement: Those systems with pertinent positive or pertinent negative responses have been documented in the HPI. ROS Other: All systems not noted in ROS Statement are negative. Past Medical History Past Medical History: Atrial Fibrillation, Cancer, Chest Pain / Angina, Heart Failure, COPD, CVA/TIA, Diabetes Mellitus, Hyperlipidemia, Hypertension, Osteoarthritis (OA), Pneumonia, Renal Disease, Sleep Apnea/CPAP/BIPAP, Syncope, Thyroid Disorder Additional Past Medical History / Comment(s): Stage III Kidney Disease, hx Pneumonia with Sepsis, no CPAP use (family states she hasn't been out of the hospital long enough to get a CPAP machine), Vitamin D Deficiency, chronic low back pain, frequent constipation, hx skin cancer, neuropathy History of Any Multi-Drug Resistant Organisms: None Reported Past Surgical History: Adenoidectomy, Back Surgery, Bariatric Surgery, Cholecystectomy, Heart Catheterization, Hysterectomy, Tonsillectomy Additional Past Surgical History / Comment(s): Cardiac caths , lap band placed/since removed, low back surgery, L carpal tunnel release X2, skin cancer removal, colonoscopies, bilateral cataract removals/lens implants. Past Anesthesia/Blood Transfusion Reactions: Previous Problems w/ Anesthesia Additional Past Anesthesia/Blood Transfusion Reaction / Comment(s): "Had too much anesthesia in 2007 for lap band removal, had to be bagged." Past Psychological History: Depression Smoking Status: Never smoker - Past Family History Sister(s) Family Medical History: Myocardial Infarction (PR) Brother(s) Family Medical History: Cancer Additional Family Medical History / Comment(s): Colon Cancer. Mother Family Medical History: Dementia Additional Family Medical History / Comment(s): Mother of dementia at the age of 89yrs. Father Family Medical History: Cancer Additional Family Medical History / Comment(s): Pt states her father was treated for a sinus infection but really had leukemia and of this at the age of 72 yrs. General Exam - General Exam Comments Initial Comments: GENERAL: The patient is well nourished and well hydrated. VITAL SIGNS: Heart rate, blood pressure, respiratory rate reviewed as recorded in nurse's notes. EYES: Pupils are round and reactive. Extraocular movements are intact. No conjunctival / lid redness or swelling. ENT: No external evidence of injury, swelling, or ecchymosis. Airway is patent. Throat is clear. NECK: Nontender. No swelling or evidence of injury. No subcutaneous emphysema. Trachea is midline. No thyroid mass. HEART: Regular rate and rhythm. Good peripheral pulses. LUNGS/CHEST: Breath sounds clear and equal bilaterally. No rales, rhonchi, or wheezes. No ecchymosis, subcutaneous emphysema, or tenderness. ABDOMEN: Abdomen soft without tenderness. No palpable masses or organomegaly. No peritoneal signs. No abdominal wall swelling or ecchymosis. EXTREMITIES: No extremity tenderness. Normal muscle tone and function. There is tenderness noted at midline lower lumbar spine and into the sacrum region. There is some Moderate tenderness in the bilateral paralumbar musculature. Strength is intact to lower extremities. NEUROLOGIC: Sensation is grossly intact. Cranial nerve exam reveals face is symmetrical, tongue is midline, speech is clear. SKIN: No abrasions or ecchymosis is noted. No induration or masses noted. PSYCHIATRIC: Alert and oriented. Appropriate behavior and judgment. Limitations: no limitations Course Vital Signs 02/07/22 15:45 Temperature 98.0 F Pulse Rate 80 Respiratory 22 Rate Blood Pressure 121/62 O2 Sat by Pulse 97 Oximetry Medical Decision Making - Medical Decision Making The patient was seen and examined. All diagnostics were reviewed. The patient did have an EKG done which shows a normal sinus rhythm at a rate of 65. There is no acute ST-T wave changes identified. The VT intervals 148, QRS duration is 126, and the QTC intervals 444. Laboratory shows a slight increase in the BUN/creatinine. There is mild hyponatremia as well as mild hypoc hloremia. the renal insufficiency does appear to be chronic and similar to prior. The x-ray of the lumbar spine does show compression fractures at L3 and T12. These are new as compared to previous. There is also previous lumbar fusion at L4-L5 and S1. Her pain seems to be intractable and she states that she cannot tolerate it and do activities of daily living at home. She is requesting admission to the hospital. Her blood sugar came back quite elevated at 468. She is given morphine as well as subcutaneous insulin and fluid hydration. It is felt as though she would benefit from admission to the hospital and she may benefit from kyphoplasty and spine surgery will be consulted. She has seen and surgeon recently through [facility]. Case will be discussed with internal medicine in the near future and patient is admitted For further evaluation. Of note, the exact cause of her syncope and fall is not definitively determined. - Lab Data Result diagrams: 02/07/22 18:40 02/07/22 18:40 Lab Results 02/07/22 02/07/22 Range/Units 18:40 18:40 WBC 8.2 (3.8-10.6) k/uL RBC 4.51 (3.80-5.40) m/uL Hgb 12.9 (11.4-16.0) gm/dL Hct 40.6 (34.0-46.0) % MCV 90.1 D (80.0-100.0) fL MCH 28.5 (25.0-35.0) pg MCHC 31.6 (31.0-37.0) g/dL RDW 13.9 (11.5-15.5) % Plt Count 239 (150-450) k/uL MPV 8.4 Neutrophils % 68 % Lymphocytes % 16 % Monocytes % 9 % Eosinophils % 3 % Basophils % 1 % Neutrophils # 5.6 (1.3-7.7) k/uL Lymphocytes # 1.3 (1.0-4.8) k/uL Monocytes # 0.7 (0-1.0) k/uL Eosinophils # 0.3 (0-0.7) k/uL Basophils # 0.1 (0-0.2) k/uL Hypochromasia Slight Sodium 132 L (137-145) mmol/L Potassium 4.5 (3.5-5.1) mmol/L Chloride 97 L (98-107) mmol/L Carbon Dioxide 25 (22-30) mmol/L Anion Gap 10 mmol/L BUN 42 H (7-17) mg/dL Creatinine 1.77 H (0.52-1.04) mg/dL Est GFR (CKD-EPI)AfAm 31 (>60 ml/min/1.73 sqM) Est GFR (CKD-EPI)NonAf 27 (>60 ml/min/1.73 sqM) Glucose 468 H (74-99) mg/dL Calcium 8.3 L (8.4-10.2) mg/dL Disposition Clinical Impression: Fall from standing, Sacral contusion, Acute low back pain, Hyponatremia, Hypochloremia, Renal insufficiency, Syncope, Vertebral compression fracture Disposition: ADMITTED IP TO THIS HOSP Condition: Fair Is patient prescribed a controlled substance at d/c from ED?: No Referrals: Marianela Sheppard MD [Primary Care Provider] - 1-2 days Time of Disposition: 21:37 Decision Date: 02/07/22 Decision Time: 21:37
--- NOTE | 2022-02-07 19:40 | XR ---
EXAMINATION TYPE: XR lumbar spine 2 or 3V DATE OF EXAM: 02/07/2022 COMPARISON: 02/11/2020 HISTORY: Pain TECHNIQUE: 3 views FINDINGS: There is posterior fusion surgery from L4 to S1. There is mild depression of the superior e ndplate of L3 vertebra 15%. There is T12 mild compression deformity almost 20%. Posterior elements ar e intact. Sacroiliac joints are intact. IMPRESSION: Previous fusion surgery. There are new mild compression fractures of L3 and T12 compared to old exam.
--- NOTE | 2022-02-07 19:42 | XR ---
EXAMINATION TYPE: XR sacrum coccyx DATE OF EXAM: 02/07/2022 COMPARISON: NONE HISTORY: Pain TECHNIQUE: 3 views FINDINGS: Sacrum and coccyx segments have fairly normal alignment. No fracture seen. Sacroiliac joint s are intact. IMPRESSION: No evidence of sacral fracture.
[2022-02-07] MEDS ORDERED: MORPHINE SULFATE 4 MG/ML SYRINGE IV STA (20:53)
[2022-02-07] MEDS ORDERED: SODIUM CHLORIDE 0.9% 500 ML IV STA (20:53)
[2022-02-07] MEDS ORDERED: SODIUM CHLORIDE 0.9% 1,000 ML IV STA (20:53)
[2022-02-07] MEDS ORDERED: INSULIN REGULAR 100 UNIT/ML VIAL (IV) SQ STA (20:54)
[2022-02-07] MEDS ORDERED: ONDANSETRON 4 MG/2 ML VIAL IVP PRN (22:16)
[2022-02-07] MEDS ORDERED: MORPHINE SULFATE 4 MG/ML SYRINGE IV PRN (22:16)
[2022-02-07] MEDS ORDERED: NALOXONE 0.4 MG/ML 1 ML VIAL IV PRN (22:16)
[2022-02-07] MEDS ORDERED: ALBUTEROL NEBULIZED 2.5 MG/3 ML INHALATION PRN (22:21)
[2022-02-08] MEDS: HYDROcodone/APAP 5-325MG 1 EACH TAB PO PRN ×2 (01:14→09:10)
[2022-02-08] MEDS: busPIRone HCl 10 MG TAB PO SCH ×5 (02:49→21:24)
[2022-02-08 04:59] LABS: Glucose,Whole Blood 218 mg/dL (70-110)
[2022-02-08] MEDS: LEVOTHYROXINE 125 MCG TAB PO SCH ×2 (06:40→09:09)
[2022-02-08] MEDS ORDERED: ARTIFICIAL TEARS-HYPROMELLOSE DROPS 15 ML BTL BOTH EYES PRN (09:00)
[2022-02-08] MEDS: hydrALAZINE HCL 25 MG TAB PO SCH ×3 (09:09→21:23)
[2022-02-08] MEDS: carvediloL 12.5 MG TAB PO SCH ×2 (09:09→17:55)
[2022-02-08] MEDS: lisinopriL 20 MG TAB PO SCH (09:09)
[2022-02-08] MEDS: FERROUS SULFATE 325 MG TAB PO SCH ×2 (09:09→21:22)
[2022-02-08] MEDS: ASPIRIN 81 MG PO SCH (09:09)
[2022-02-08] MEDS: hydrALAZINE HCL 50 MG TAB PO SCH ×3 (09:09→21:22)
[2022-02-08] MEDS: MAGNESIUM OXIDE 400 MG TAB PO SCH (09:09)
[2022-02-08] MEDS: APIXABAN 2.5 MG TABLET PO SCH ×2 (09:09→21:22)
[2022-02-08] MEDS: FUROSEMIDE 40 MG TAB PO SCH ×3 (09:09→21:25)
[2022-02-08] MEDS: POTASSIUM CHLORIDE ER 20 MEQ TAB.ER PO SCH (09:09)
[2022-02-08] MEDS: SERTRALINE 25 MG TAB PO SCH (09:10)
[2022-02-08] MEDS: ISOSORBIDE MONONITRATE ER 60 MG TAB.ER.24H PO SCH (09:10)
[2022-02-08] MEDS: PANTOPRAZOLE 40 MG TABLET PO SCH ×2 (09:10→09:12)
--- NOTE | 2022-02-08 10:42 | P.HPIM ---
History of Present Illness H&P Date: 02/08/22 Chief Complaint: Fall back pain This is an 81-year-old female patient of Dr. Sheppard who presented with right lower back pain following fall. Patient reports that she turned the corner too quickly believes her sugar was low at the time. She denies loss of consciousness or injury to head patient reports she fell on her back. Patient does have past medical history of atrial fibrillation in which he maintained on eliquis, chest pain, heart failure, COPD, CVA, diabetes mellitus, hyperlipidemia, hypertension, renal disorder and thyroid disease. Patient reports that she had previous fusion surgery approximately 20 years ago. Lumbar spine x-ray showed previous fusion surgery. Mild new compression fractures of L3 and T12 compared to old exam. Sacrum and coccyx x-ray completed showing no evidence of sacral fracture. Patient's blood sugar upon arrival was elevated at 468. Creatinine 1.77 and bun 42 this does appear chronic for patient at this time patient is resting comfortably in bed. Patient complains of lower back pain. Patient denies any chest pain or shortness of breath. Patient denies nausea vomiting or diarrhea. Patient denies any urinary burning or frequency. Dr. Nur has been consulted for new compression fracture repeat labs ordered Review of Systems Please refer to HPI otherwise unremarkable Past Medical History Past Medical History: Atrial Fibrillation, Cancer, Chest Pain / Angina, Heart Failure, COPD, CVA/TIA, Diabetes Mellitus, Hyperlipidemia, Hypertension, Osteoar thritis (OA), Pneumonia, Renal Disease, Sleep Apnea/CPAP/BIPAP, Syncope, Thyroid Disorder Additional Past Medical History / Comment(s): Stage III Kidney Disease, hx Pneumonia with Sepsis, no CPAP use (family states she hasn't been out of the hospital long enough to get a CPAP machine), Vitamin D Deficiency, chronic low back pain, frequent constipation, hx skin cancer, neuropathy History of Any Multi-Drug Resistant Organisms: None Reported Past Surgical History: Adenoidectomy, Back Surgery, Bariatric Surgery, Cholecystectomy, Heart Catheterization, Hysterectomy, Tonsillectomy Additional Past Surgical History / Comment(s): Cardiac caths 2010/2014, lap band placed/since removed, low back surgery, L carpal tunnel release X2, skin cancer removal, colonoscopies, bilateral cataract removals/lens implants. Past Anesthesia/Blood Transfusion Reactions: Previous Problems w/ Anesthesia Additional Past Anesthesia/Blood Transfusion Reaction / Comment(s): "Had too much anesthesia in 2007 for lap band removal, had to be bagged." Past Psychological History: Depression Smoking Status: Never smoker - Past Family History Sister(s) Family Medical History: Myocardial Infarction ([place]) Brother(s) Family Medical History: Cancer Additional Family Medical History / Comment(s): Colon Cancer. Mother Family Medical History: Dementia Additional Family Medical History / Comment(s): Mother of dementia at the age of 89yrs. Father Family Medical History: Cancer Additional Family Medical History / Comment(s): Pt states her father was treated for a sinus infection but really had leukemia and of this at the age of 72 yrs. Medications and Allergies Home Medications Medication Instructions Recorded Confirmed Type Atorvastatin [Lipitor] 80 mg PO HS@209906/30/18 02/07/22 History Potassium Chloride ER [K-Dur 20] 20 meq PO DAILY@89908/06/21 02/07/22 History Sertraline [Zoloft] 25 mg PO DAILY@89908/30/21 02/07/22 History Albuterol Nebulized [Ventolin 2.5 mg INHALATION RT-QID PRN 09/24/21 02/07/22 History Nebulized] Artificial Tears-Hypromellose 1 drop BOTH EYES TID PRN 09/24/21 02/07/22 History [Artificial Tear Drops] Docusate [Colace] 100 mg PO DAILY@89909/24/21 02/07/22 History Isosorbide Mononitrate ER [Imdur] 60 mg PO DAILY@89909/24/21 02/07/22 History Multivit-Min/Iron/Folic/Lutein 1 tab PO DAILY@89909/24/21 02/07/22 History [Centrum Silver Women Tablet] Apixaban [Eliquis] 2.5 mg PO BID@09,209912/01/21 02/07/22 History Aspirin [Adult Low Dose Aspirin EC] 81 mg PO DAILY@89912/01/21 02/07/22 History Levothyroxine Sodium [Synthroid] 125 mcg PO DAILY@59912/01/21 02/07/22 History Magnesium Oxide [Mag-Ox] 400 mg PO DAILY@89912/01/21 02/07/22 History Melatonin [Melatonin ER] 10 mg PO HS@2100 12/01/21 02/07/22 History Omeprazole 40 mg PO DAILY@0900 12/01/21 02/07/22 History polyethylene glycoL 3350 [Miralax] 17 gm PO DAILY@0900 12/01/21 02/07/22 History Ferrous Sulfate [Feosol] 325 mg PO BID@0900,2100 #60 tab 12/02/21 02/07/22 Rx Furosemide [Lasix] 40 mg PO BID #60 tab 12/02/21 02/07/22 Rx busPIRone HCl [Buspar] 10 mg PO Q8H #90 tab 12/02/21 02/07/22 Rx hydrALAZINE HCL [Apresoline] 50 mg PO TID 12/19/21 02/07/22 History lisinopriL 40 mg PO DAILY 12/19/21 02/07/22 History Acetaminophen Tab [Tylenol] 650 mg PO Q4H PRN #60 tab 12/21/21 02/07/22 Rx INSULIN ASPART (NovoLOG) [NovoLOG 3 unit SQ ACHS 30 Days #4 each 12/21/21 02/07/22 Rx (formulary)] Insuln Asp Prt/Insulin Aspart 20 unit SQ AC-SUPPER 30 Days #5 12/21/21 02/07/22 Rx [NovoLOG MIX 70-30 VIAL] each Insuln Asp Prt/Insulin Aspart 30 unit SQ AC-BRKFST 30 Days #5 12/21/21 02/07/22 Rx [NovoLOG MIX 70-30 VIAL] each carvediloL [Coreg*] 12.5 mg PO BID-W/MEALS 30 Days #60 12/21/21 02/07/22 Rx tab hydrALAZINE HCL [Apresoline] 25 mg PO TID 02/07/22 02/07/22 History Allergies Allergy/AdvReac Type Severity Reaction Status Date / Time azithromycin Allergy Rash/Hives Verified 02/07/22 15:48 [From Zithromax Z-Jeanmarie] methylprednisolone Allergy Rash/Hives Verified 02/07/22 15:48 [From Medrol] sulfamethoxazole Allergy Rash/Hives Verified 02/07/22 15:48 [From Bactrim] trimethoprim [From Bactrim] Allergy Rash/Hives Verified 02/07/22 15:48 hydrochlorothiazide AdvReac lost Verified 02/07/22 15:48 balance and fell Physical Exam Vitals: Vital Signs Temp Pulse Pulse Resp BP BP Pulse Ox 02/08/22 09:29 68 16 171/75 92 L 02/08/22 05:10 58 L 16 175/100 98 02/07/22 15:45 98.0 F 80 22 121/62 97 Intake and Output 02/07/22 02/08/22 02/08/22 22:59 06:59 14:59 Other: Weight 90.718 kg Head normocephalic Neck supple Lungs clear to auscultation bilaterally no wheezing or crackles Heart irregular rhythm known atrial fibrillation Abdomen is soft nontender nondistended positive bowel sounds no hepatosplenomegaly Extremities no edema Neuro alert and orientated to 3 Results CBC & Chem 7: 02/07/22 18:40 02/07/22 18:40 Labs: Abnormal Lab Results - Last 24 Hours (Table) 02/07/22 02/08/22 Range/Units 18:40 04:57 Sodium 132 L (137-145) mmol/L Chloride 97 L (98-107) mmol/L BUN 42 H (7-17) mg/dL Creatinine 1.77 H (0.52-1.04) mg/dL Glucose 468 H (74-99) mg/dL POC Glucose (mg/dL) 218 H (70-110) mg/dL Calcium 8.3 L (8.4-10.2) mg/dL Assessment and Plan Assessment: 1. Status post fall with lumbar compression fracture 2. History of paroxysmal atrial fibrillation. Maintained on eliquis 3. History of chronic diastolic heart failure 4. History of COPD no exacerbation at this time 5. Diabetes mellitus type 2 6. Chronic kidney disease stage III 7. History of aortic stenosis with previous outpatient workup for TAVR 8. History of essential hypertension 9. History of hyperlipidemia At this time patient has been admitted Dr. uNr has been consulted for compression fracture Due to concerns about possible syncopal episode and patient's cardiac history will consult cardiology services and order 2-D echo Repeat labs ordered PT OT and social work services consulted Time with Patient: Greater than 30 (Greater than 60% of the total time spent in counseling and coordination of care)
[2022-02-08 10:47] LABS: Basophils % (A) 1 %; Eosinophils # (A) 0.5 k/uL (0-0.7); Eosinophils % (A) 7 %; HGB 12.3 gm/dL (11.4-16.0); Hypochromasia Slight; Lymphocytes # (A) 1.4 k/uL (1.0-4.8); Lymphocytes % (A) 20 %; MCH 28.7 pg (25.0-35.0); MCHC 31.6 g/dL (31.0-37.0); MCV 90.8 fL (80.0-100.0); Mean Platelet Volume 8.3; Monocytes # (A) 0.8 k/uL (0-1.0); Monocytes % (A) 12 %; Neutrophils # (A) 4.1 k/uL (1.3-7.7); Neutrophils % (A) 58 %; Platelet Count 181 k/uL (150-450); RBC 4.29 m/uL (3.80-5.40); RDW 13.6 % (11.5-15.5); WBC 7.2 k/uL (3.8-10.6)
[2022-02-08 11:02] LABS: Albumin 3.2 g/dL (3.5-5.0); Total Bilirubin 0.2 mg/dL (0.2-1.3); Total Protein 5.7 g/dL (6.3-8.2)
[2022-02-08 11:45] LABS: Glucose,Whole Blood 412 mg/dL (70-110)
--- NOTE | 2022-02-08 11:46 | P.CNOR ---
History of Present Illness - [facility] Consult date: 02/08/22 Requesting physician: Trent Sher Consult reason: fracture (Acute traumatic T12 compression fracture; L3 chronic compression fracture) History of present illness: Patient is a very pleasant 81-year-old female who is seen and examined in the emergency room #28 for further evaluation of her thoracic and lumbar spines. Patient admits to diabetes mellitus and has some difficulty with her glucose levels. She states she was pushing a box a food and to her house yesterday when her glucose level dropped and she passed out falling to the ground. She states she injured her spine at that time. She states she does have lower thoracic spine pain. She denies any lumbar pain. She has a history of previous L4-5 and L5-S1 lumbar pain hardware performed approximately [address] De La Torre. She denies any other injuries at the time of the fall. She currently denies any lower extremity weakness or radiculopathy bilaterally. Since her presentation to the emergency department she has remained in bed and has an external catheter in place. She does admit increased thoracic pain with coughing and sneezing. She has been admitted to medicine. Her past medical history includes atrial fibrillation currently on Eliquis, heart failure, COPD, hyperlipidemia, hypertension, history of CVA, renal disorder, and thyroid disease. Patient also has a history of recent fall on 12/18/2021 resulting in proximal phalanx fractures to the right ring finger and right pinky finger. She was treated conservatively by Dr. Field. Medicine has placed consultation for cardiology to evaluate for possible syncopal episode. Medicine has also ordered an echocardiogram. Past Medical History Past Medical History: Atrial Fibrillation, Cancer, Chest Pain / Angina, Heart Failure, COPD, CVA/TIA, Diabetes Mellitus, Hyperlipidemia, Hypertension, Osteoarthritis (OA), Pneumonia, Renal Disease, Sleep Apnea/CPAP/BIPAP, Syncope, Thyroid Disorder Additional Past Medical History / Comment(s): Stage III Kidney Disease, hx Pneumonia with Sepsis, no CPAP use (family states she hasn't been out of the hospital long enough to get a CPAP machine), Vitamin D Deficiency, chronic low back pain, frequent constipation, hx skin cancer, neuropathy History of Any Multi-Drug Resistant Organisms: None Reported Past Surgical History: Adenoidectomy, Back Surgery, Bariatric Surgery, Cholecystectomy, Heart Catheterization, Hysterectomy, Tonsillectomy Additional Past Surgical History / Comment(s): Cardiac caths , lap band placed/since removed, low back surgery, L carpal tunnel release X2, skin cancer removal, colonoscopies, bilateral cataract removals/lens implants. Past Anesthesia/Blood Transfusion Reactions: Previous Problems w/ Anesthesia Additional Past Anesthesia/Blood Transfusion Reaction / Comm: "Had too much anesthesia in 2007 for lap band removal, had to be bagged." Past Psychological History: Depression Smoking Status: Never smoker - Past Family History Sister(s) Family Medical History: Myocardial Infarction ([place]) Brother(s) Family Medical History: Cancer Additional Family Medical History / Comment(s): Colon Cancer. Mother Family Medical History: Dementia Additional Family Medical History / Comment(s): Mother of dementia at the age of 89yrs. Father Family Medical History: Cancer Additional Family Medical History / Comment(s): Pt states her father was treated for a sinus infection but really had leukemia and of this at the age of 72 yrs. Medications and Allergies Home Medications Medication Instructions Recorded Confirmed Type Atorvastatin [Lipitor] 80 mg PO HS@209906/30/18 02/07/22 History Potassium Chloride ER [K-Dur 20] 20 meq PO DAILY@89908/06/21 02/07/22 History Sertraline [Zoloft] 25 mg PO DAILY@89908/30/21 02/07/22 History Albuterol Nebulized [Ventolin 2.5 mg INHALATION RT-QID PRN 09/24/21 02/07/22 Hi story Nebulized] Artificial Tears-Hypromellose 1 drop BOTH EYES TID PRN 09/24/21 02/07/22 History [Artificial Tear Drops] Docusate [Colace] 100 mg PO DAILY@89909/24/21 02/07/22 History Isosorbide Mononitrate ER [Imdur] 60 mg PO DAILY@89909/24/21 02/07/22 History Multivit-Min/Iron/Folic/Lutein 1 tab PO DAILY@89909/24/21 02/07/22 History [Centrum Silver Women Tablet] Apixaban [Eliquis] 2.5 mg PO BID@0900,209912/01/21 02/07/22 History Aspirin [Adult Low Dose Aspirin EC] 81 mg PO DAILY@0900 12/01/21 02/07/22 History Levothyroxine Sodium [Synthroid] 125 mcg PO DAILY@0612/01/21 02/07/22 History Magnesium Oxide [Mag-Ox] 400 mg PO DAILY@0912/01/21 02/07/22 History Melatonin [Melatonin ER] 10 mg PO HS@2100 12/01/21 02/07/22 History Omeprazole 40 mg PO DAILY@0912/01/21 02/07/22 History polyethylene glycoL 3350 [Miralax] 17 gm PO DAILY@89912/01/21 02/07/22 History Ferrous Sulfate [Feosol] 325 mg PO BID@09,2099 #60 tab 12/02/21 02/07/22 Rx Furosemide [Lasix] 40 mg PO BID #60 tab 12/02/21 02/07/22 Rx busPIRone HCl [Buspar] 10 mg PO Q8H #90 tab 12/02/21 02/07/22 Rx hydrALAZINE HCL [Apresoline] 50 mg PO TID 12/19/21 02/07/22 History lisinopriL 40 mg PO DAILY 12/19/21 02/07/22 History Acetaminophen Tab [Tylenol] 650 mg PO Q4H PRN #60 tab 12/21/21 02/07/22 Rx INSULIN ASPART (NovoLOG) [NovoLOG 3 unit SQ ACHS 30 Days #4 each 12/21/21 02/07/22 Rx (formulary)] Insuln Asp Prt/Insulin Aspart 20 unit SQ AC-SUPPER 30 Days #5 12/21/21 02/07/22 Rx [NovoLOG MIX 70-30 VIAL] each Insuln Asp Prt/Insulin Aspart 30 unit SQ AC-BRKFST 30 Days #5 12/21/21 02/07/22 Rx [NovoLOG MIX 70-30 VIAL] each carvediloL [Coreg*] 12.5 mg PO BID-W/MEALS 30 Days #60 12/21/21 02/07/22 Rx tab hydrALAZINE HCL [Apresoline] 25 mg PO TID 02/07/22 02/07/22 History Allergies Allergy/AdvReac Type Severity Reaction Status Date / Time azithromycin Allergy Rash/Hives Verified 02/07/22 15:48 [From Zithromax Z-Jeanmarie] methylprednisolone Allergy Rash/Hives Verified 02/07/22 15:48 [From Medrol] sulfamethoxazole Allergy Rash/Hives Verified 02/07/22 15:48 [From Bactrim] trimethoprim [From Bactrim] Allergy Rash/Hives Verified 02/07/22 15:48 hydrochlorothiazide AdvReac lost Verified 02/07/22 15:48 balance and fell Physical Examination Osteopathic Statement: *. No significant issues noted on an osteopathic structural exam other than those noted in the History and Physical/Consult. Physical exam: Patient is awake, alert, and oriented 3 Vital signs stable Good chest excursion with deep inspiration and expiration Examination of thoracic and lumbar spine reveals skin is intact with no abrasio ns, lacerations, or bruises; no erythema, purulence or signs of infection Evidence of a large well-healed midline incision over the lumbar spine Significant pain with palpation at the thoracolumbar junction No pain with palpation along the midline of the mid to lower lumbar spine Dorsiflexion, plantarflexion, and extensor hallucis longus positive sustained bilaterally Patient is able to lift her legs off the bed independently bilaterally Patient is able to roll over in bed independently with some increased thoracic pain Lower extremity strength 5/5 bilaterally No signs or symptoms of DVT; no calf pain Neurovascularly intact External catheter intact Results Pertinent studies: X-rays of the lumbar spine taken on 02/07/2022: Evidence of T12 compression fracture deformity with approximately 20% height loss; evidence of L3 superior endplate compression fracture deformity which appears chronic as compared to previous CT of the abdomen study taken on 11/19/2021; Evidence of posterior lumbar fusion with retained hardware at L4-5 and L5-S1 X-rays of the sacrum and coccyx taken on 02/07/2022: No obvious fracture or dislocation at the sacrum or coccyx - Labs Labs: Abnormal Lab Results - Last 24 Hours (Table) 02/07/22 02/08/22 02/08/22 Range/Units 18:40 04:57 10:12 Sodium 132 L 135 L (137-145) mmol/L Chloride 97 L (98-107) mmol/L BUN 42 H 36 H (7-17) mg/dL Creatinine 1.77 H 1.53 H (0.52-1.04) mg/dL Glucose 468 H 333 H (74-99) mg/dL POC Glucose (mg/dL) 218 H (70-110) mg/dL Calcium 8.3 L 8.0 L (8.4-10.2) mg/dL Total Protein 5.7 L (6.3-8.2) g/dL Albumin 3.2 L (3.5-5.0) g/dL H & H 02/07/22 02/08/22 Range/Units 18:40 10:12 Hgb 12.9 12.3 (11.4-16.0) gm/dL Hct 40.6 39.0 (34.0-46.0) % Result Diagrams: 02/08/22 10:12 02/08/22 10:12 Assessment and Plan Assessment: Assessment: T12 acute traumatic compression fracture deformity L3 chronic compression fracture deformity Status post fall Possible syncopal episode Thoracic back pain History of L4-5 and L5-S1 lumbar fusion with retained hardware Atrial fibrillation currently on Eliquis Heart failure COPD Hyperlipidemia Hypertension History of CVA Renal disorder Thyroid disorder (1) Acute thoracic back pain Current Visit: Yes Status: Acute Code(s): M54.6 - PAIN IN THORACIC SPINE SNOMED Code(s): 006087615 (2) T12 compression fracture Current Visit: Yes Status: Acute Code(s): S22.080A - WEDGE COMPRESSION FRACTURE OF T11-T12 VERTEBRA, INIT SNOMED Code(s): 821679382 (3) Compression fracture of L3 vertebra Current Visit: Yes Status: Acute Code(s): S32.030A - WEDGE COMPRESSION FRACTURE OF THIRD LUMBAR VERTEBRA, INIT SNOMED Code(s): 747607263 (4) History of lumbar fusion Current Visit: Yes Status: Acute Code(s): Z98.1 - ARTHRODESIS STATUS SNOMED Code(s): 41801946695549 (5) Status post fall Current Visit: Yes Status: Acute Code(s): Z91.81 - HISTORY OF FALLING SNOMED Code(s): 344523830 (6) Current use of exterminator helper termite anticoagulation Current Visit: Yes Status: Acute Code(s): Z79.01 - WIND TUNNEL TECHNICIAN (CURRENT) USE OF ANTICOAGULANTS SNOMED Code(s): 514989653 (7) Hyperlipidemia Current Visit: Yes Status: Acute Code(s): E78.5 - HYPERLIPIDEMIA, U NSPECIFIED SNOMED Code(s): 45378538 (8) Renal disorder Current Visit: Yes Status: Acute Code(s): N28.9 - DISORDER OF KIDNEY AND URETER, UNSPECIFIED SNOMED Code(s): 63269968 (9) Thyroid disorder Current Visit: Yes Status: Acute Code(s): E07.9 - DISORDER OF THYROID, UNSPECIFIED SNOMED Code(s): 58568972 (10) Afib Current Visit: No Status: Acute Code(s): I48.91 - UNSPECIFIED ATRIAL FIBRILLATION SNOMED Code(s): 50447218 (11) COPD (chronic obstructive pulmonary disease) Current Visit: No Status: Acute Code(s): J44.9 - CHRONIC OBSTRUCTIVE PULMONARY DISEASE, UNSPECIFIED SNOMED Code(s): 32020441 (12) Heart failure Current Visit: No Status: Acute Code(s): I50.9 - HEART FAILURE, UNSPECIFIED SNOMED Code(s): 35117504 (13) History of CVA (cerebrovascular accident) Current Visit: No Status: Acute Code(s): Z86.73 - PRSNL HX OF TIA (TIA), AND CEREB INFRC W/O RESID DEFICITS SNOMED Code(s): 089138257 (14) Hypertension Current Visit: No Status: Acute Code(s): I10 - ESSENTIAL (PRIMARY) HYPERTENSION SNOMED Code(s): 07711463 Plan: Plan: 1. Patient sustained a fall at home yesterday, 02/07/2022. Since that time she has been experiencing increased thoracic back pain. She is not experiencing any significant lumbar pain. She presented to [facility] emergency department for further evaluation. X-ray imaging was taken at that time which does show evidence of an acute T12 compression fracture deformity. As compared to previous imaging taken on 11/19/2021, it appears her L3 compression fracture deformity is chronic. She does have retained lumbar hardware at L4-5 and L5-S1 following previous fusion performed [address] De La Torre. She currently denies any lower extremity weakness or radiculopathy bilaterally. After reviewi ng of imaging, physical examination the patient, and further discussion with the patient, will currently plan to have the patient worked through conservative treatment at this time. At this time we'll plan for bracing. A prescription has been written and provided to case management for a Spinomed TLSO brace. Once this brace is delivered and fitted appropriately, patient should wear this brace while sitting upright at greater than 45, during increase activities, during ambulation. Brace does not have to or while lying in bed or while bathing. It was discussed with the patient and with nursing that the patient may remain in bed with her external catheter in placed until the TLSO brace is delivered and fitted appropriately. Following fitting of this brace, patient is clear for discharge from an orthopedic spine standpoint. Following discharge, patient may follow-up with Gilmer Monahan PA-C or Dr. John Nur at [facility]. 2. Patient will continue be seen examined by medicine for her other multiple medical diagnoses 3. Consultation has currently been placed with Dr. Culp in cardiology for possible syncopal episode 4. Continue with pain control medications as prescribed as needed I reviewed the patient and the dictation as well as the imaging associated. Patient seems to have a new fracture at T12 and a chronic fracture at L3. I think that bracing can help alleviate some of her pain and allow for appropriate healing. She'll be appropriately. She may mobilize with bathroom privileges without brace and with therapy and mobilization and ambulation with physical therapy with the brace on. Time with Patient: Greater than 30 (Including obtaining history, physical examination, reviewing of imaging, and dictation.)
[2022-02-08] MEDS: DOCUSATE 100 MG CAP PO SCH (12:47)
[2022-02-08] MEDS: polyethylene glycoL 3350 17 GM POWD.PACK PO SCH (12:48)
[2022-02-08] MEDS: INSULN ASP PRT/INSULIN ASPART 100 UNIT/ML 10 ML VIAL SQ SCH ×2 (12:55→16:41)
--- NOTE | 2022-02-08 14:19 | P.CRDCN ---
History of Present Illness Consult date: 02/08/22 History of present illness: HISTORY OF PRESENT ILLNESS: This is a 81 year old female with a past medical history significant for paroxysmal atrial fibrillation, hypertension, hyperlipidemia, COPD, diabetes, hypothyroidism, CVA, chronic kidney disease, nonobstructive coronary artery disease, severe aortic stenosis, obstructive sleep apnea, chronic heart failure with preserved ejection fraction, and pleural effusion with right-sided thoracentesis in July 2021. Patient follows in the office with Dr. Hernandez. We have been asked to see the patient in consultation for syncope. Patient examined at the bedside. Patient states she was walking at home when she fell. She reports feeling a little dizzy prior to falling. She denied any chest pain or pressure. The patient did not lose consciousness. She reports she was aware of her surroundings the entire time and is adamant that she did not pass out. It is noted that the patient was previously being worked up for an aortic valve replacement. However the patient had significantly uncontrolled hypertension and as of recently her blood pressures have been better controlled and she has had improvement in her symptoms so CTS felt patient did not require valve replacement at this time. * EKG reveals sinus mechanism with no signs of acute ischemia * Laboratory data: W BC 7.2. Hemoglobin 12.3. Platelet count 181. Sodium 135. Potassium 4.0. B UN 36. Creatinine 1.53. * Current home cardiac medications include Eliquis 2.5mg BID, lisinopril 40 mg daily, hydralazine 75 mg 3 times a day, carvedilol 12.5 mg twice a day, Imdur 60 mg daily, Lasix 40 mg twice a day, aspirin 81 mg daily, atorvastatin 80 mg at night * Echocardiogram completed in October 2021 revealed ejection fraction 55-60%, severe aortic stenosis with a peak/mean gradient of 48 mmHg/34 mmHg, moderate mitral regurgitation, mild tricuspid regurgitation, mild pulmonary hypertension with RVSP of 39 mmHg * Cardiac catheterization history: October 2021 revealed calcified aortic valve and mitral annulus, mild coronary artery disease, severe aortic stenosis, and mild pulmonary hypertension * Patient underwent BURKE and October 2021 revealing normal left ventricular size and systolic function, severely calcified aortic valve with moderate aortic stenosis by mean gradient and severe by planimetry, moderate mitral and tricuspid regurgitation, moderate to severe pulmonary hypertension and no shunting across the interatrial septum. REVIEW OF SYSTEMS: At the time of my exam: CONSTITUTIONAL: Denies fever or chills. HEENT: Denies blurred vision, vision changes, or eye pain. Denies hemoptysis CARDIOVASCULAR: Denies chest pain. Denies orthopnea. Denies PND. Denies palpitations RESPIRATORY: Denies shortness of breath. GASTROINTESTINAL: Denies abdominal pain. Denies nausea or vomiting. HEMATOLOGIC: Denies bleeding disorders. GENITOURINARY: Denies any blood in urine. SKIN: Denies pruitis. Denies rash. PHYSICAL EXAM: VITAL SIGNS: Reviewed. GENERAL: Well-developed in no acute distress. HEENT: Head is normocephalic. Pupils are equal, round. Sclerae anicteric. Mucous membranes of the mouth are moist. Neck supple. No JVD or thyromegaly LUNGS: Respirations even and unlabored. Lungs essentially clear to auscultation bilaterally. HEART: Regular rate and rhythm. S1 and S2 heard. Systolic murmur noted. ABDOMEN: Soft. Nondistended. Nontender. EXTREMITIES: Normal range of motion. No clubbing or cyanosis. Peripheral pulses intact. No lower extremity edema NEUROLOGIC: Awake and alert. Oriented x 3. ASSESSMENT: S/P mechanical fall, no evidence of syncope T12 compression fracture Chronic heart failure with preserved ejection fraction Paroxysmal atrial fibrillation Severe aortic stenosis Hypertension Hyperlipidemia Nonobstructive coronary artery disease Obstructive sleep apnea Chronic kidney disease COPD History of pneumonia History of pleural effusion with right-sided thoracentesis in July 2021 PLAN: Patients fall is mechanical in nature with no evidence of syncope at this time Continue current cardiac medications Continue telemetry monitoring Monitor blood pressure Further recommendations pending patient course Nurse practitioner note has been reviewed by physician. Signing provider agrees with the documented findings, assessment, and plan of care. Past Medical History Past Medical History: Atrial Fibrillation, Cancer, Chest Pain / Angina, Heart Failure, COPD, CVA/TIA, Diabetes Mellitus, Hyperlipidemia, Hypertension, Osteoarthritis (OA), Pneumonia, Renal Disease, Sleep Apnea/CPAP/BIPAP, Syncope, Thyroid Disorder Additional Past Medical History / Comment(s): Stage III Kidney Disease, hx Pneumonia with Sepsis, no CPAP use (family states she hasn't been out of the hospital long enough to get a CPAP machine), Vitamin D Deficiency, chronic low back pain, frequent constipation, hx skin cancer, neuropathy History of Any Multi-Drug Resistant Organisms: None Reported Past Surgical History: Adenoidectomy, Back Surgery, Bariatric Surgery, Cholecystectomy, Heart Catheterization, Hysterectomy, Tonsillectomy Additional Past Surgical History / Comment(s): Cardiac caths , lap band placed/since removed, low back surgery, L carpal tunnel release X2, skin cancer removal, colonoscopies, bilateral cataract removals/lens implants. Past Anesthesia/Blood Transfusion Reactions: Previous Problems w/ Anesthesia Additional Past Anesthesia/Blood Transfusion Reaction / Comment(s): "Had too much anesthesia in 2007 for lap band removal, had to be bagged." Past Psychological History: Depression Smoking Status: Never smoker - Past Family History Sister(s) Family Medical History: Myocardial Infarction ([place]) Brother(s) Family Medical History: Cancer Additional Family Medical History / Comment(s): Colon Cancer. Mother Family Medical History: Dementia Additional Family Medical History / Comment(s): Mother of dementia at the age of 89yrs. Father Family Medical History: Cancer Additional Family Medical History / Comment(s): Pt states her father was treated for a sinus infection but really had leukemia and of this at the age of 72 yrs. Medications and Allergies Home Medications Medication Instructions Recorded Confirmed Type Atorvastatin [Lipitor] 80 mg PO HS@209906/30/18 02/07/22 History Potassium Chloride ER [K-Dur 20] 20 meq PO DAILY@0908/06/21 02/07/22 History Sertraline [Zoloft] 25 mg PO DAILY@0900 08/30/21 02/07/22 History Albuterol Nebulized [Ventolin 2.5 mg INHALATION RT-QID PRN 09/24/21 02/07/22 History Nebulized] Artificial Tears-Hypromellose 1 drop BOTH EYES TID PRN 09/24/21 02/07/22 History [Artificial Tear Drops] Docusate [Colace] 100 mg PO DAILY@89909/24/21 02/07/22 History Isosorbide Mononitrate ER [Imdur] 60 mg PO DAILY@89909/24/21 02/07/22 History Multivit-Min/Iron/Folic/Lutein 1 tab PO DAILY@0900 09/24/21 02/07/22 History [Centrum Silver Women Tablet] Apixaban [Eliquis] 2.5 mg PO BID@0900,209912/01/21 02/07/22 History Aspirin [Adult Low Dose Aspirin EC] 81 mg PO DAILY@89912/01/21 02/07/22 History Levothyroxine Sodium [Synthroid] 125 mcg PO DAILY@59912/01/21 02/07/22 History Magnesium Oxide [Mag-Ox] 400 mg PO DAILY@89912/01/21 02/07/22 History Melatonin [Melatonin ER] 10 mg PO HS@209912/01/21 02/07/22 History Omeprazole 40 mg PO DAILY@89912/01/21 02/07/22 History polyethylene glycoL 3350 [Miralax] 17 gm PO DAILY@89912/01/21 02/07/22 History Ferrous Sulfate [Feosol] 325 mg PO BID@899,2099 #60 tab 12/02/21 02/07/22 Rx Furosemide [Lasix] 40 mg PO BID #60 tab 12/02/21 02/07/22 Rx busPIRone HCl [Buspar] 10 mg PO Q8H #90 tab 12/02/21 02/07/22 Rx hydrALAZINE HCL [Apresoline] 50 mg PO TID 12/19/21 02/07/22 History lisinopriL 40 mg PO DAILY 12/19/21 02/07/22 History Acetaminophen Tab [Tylenol] 650 mg PO Q4H PRN #60 tab 12/21/21 02/07/22 Rx INSULIN ASPART (NovoLOG) [NovoLOG 3 unit SQ ACHS 30 Days #4 each 12/21/21 02/07/22 Rx (formulary)] Insuln Asp Prt/Insulin Aspart 20 unit SQ AC-SUPPER 30 Days #5 12/21/21 02/07/22 Rx [NovoLOG MIX 70-30 VIAL] each Insuln Asp Prt/Insulin Aspart 30 unit SQ AC-BRKFST 30 Days #5 12/21/21 02/07/22 Rx [NovoLOG MIX 70-30 VIAL] each carvediloL [Coreg*] 12.5 mg PO BID-W/MEALS 30 Days #60 12/21/21 02/07/22 Rx tab hydrALAZINE HCL [Apresoline] 25 mg PO TID 02/07/22 02/07/22 History Allergies Allergy/AdvReac Type Severity Reaction Status Date / Time azithromycin Allergy Rash/Hives Verified 02/07/22 15:48 [From Zithromax Z-Jeanmarie] methylprednisolone Allergy Rash/Hives Verified 02/07/22 15:48 [From Medrol] sulfamethoxazole Allergy Rash/Hives Verified 02/07/22 15:48 [From Bactrim] trimethoprim [From Bactrim] Allergy Rash/Hives Verified 02/07/22 15:48 hydrochlorothiazide AdvReac lost Verified 02/07/22 15:48 balance and fell Physical Exam Vitals: Vital Signs Temp Pulse Pulse Resp BP BP Pulse Ox 02/08/22 11:46 67 02/08/22 11:35 67 02/08/22 09:29 68 16 171/75 92 L 02/08/22 09:00 68 16 02/08/22 05:10 58 L 16 175/100 98 02/07/22 15:45 98.0 F 80 22 121/62 97 Intake and Output 02/07/22 02/08/22 02/08/22 22:59 06:59 14:59 Other: Weight 90.718 kg Results 02/08/22 10:12 02/08/22 10:12 Cardiac Enzymes 02/08/22 Range/Units 10:12 AST 16 (14-36) U/L CBC 02/07/22 02/08/22 Range/Units 18:40 10:12 WBC 8.2 7.2 (3.8-10.6) k/uL RBC 4.51 4.29 (3.80-5.40) m/uL Hgb 12.9 12.3 (11.4-16.0) gm/dL Hct 40.6 39.0 (34.0-46.0) % Plt Count 239 181 (150-450) k/uL Comprehensive Metabolic Panel 02/07/22 02/08/22 Range/Units 18:40 10:12 Sodium 132 L 135 L (137-145) mmol/L Potassium 4.5 4.0 (3.5-5.1) mmol/L Chloride 97 L 103 (98-107) mmol/L Carbon Dioxide 25 25 (22-30) mmol/L BUN 42 H 36 H (7-17) mg/dL Creatinine 1.77 H 1.53 H (0.52-1.04) mg/dL Glucose 468 H 333 H (74-99) mg/dL Calcium 8.3 L 8.0 L (8.4-10.2) mg/dL AST 16 (14-36) U/L ALT 13 (4-34) U/L Alkaline Phosphatase 98 (38-126) U/L Total Protein 5.7 L (6.3-8.2) g/dL Albumin 3.2 L (3.5-5.0) g/dL Current Medications Generic Name Dose Route Start Last Admin Trade Name Freq PRN Reason Stop Dose Admin Acetaminophen 650 mg 02/07/22 22:16 Acetaminophen Tab 325 Mg Tab PO Q6HR PRN Mild Pain or Fever > 100.5 Hydrocodone Bitart/Acetaminophen 1 each 02/07/22 22:16 02/08/22 09:10 Hydrocodone/Apap 5-325mg 1 Each Tab PO 1 each Q4HR PRN Administration Moderate Pain Albuterol Sulfate 2.5 mg 02/07/22 22:21 02/08/22 11:35 Albuterol Nebulized 2.5 Mg/3 Ml INHALATION 2.5 mg RT-QID PRN Administration Shortness Of Breath Apixaban 2.5 mg 02/08/22 09:00 02/08/22 09:09 Apixaban 2.5 Mg Tablet PO 2.5 mg BID@0900,2100 [facility] Administration Protocol Artificial Tears 1 drops 02/08/22 09:00 Artificial Tears-Hypromellose Drops 15 Ml Btl BOTH EYES TID PRN Dry Eye(s) Aspirin 81 mg 02/08/22 09:00 02/08/22 09:09 Aspirin 81 Mg PO 81 mg DAILY@0900 [facility] Administration Atorvastatin Calcium 80 mg 02/08/22 21:00 Atorvastatin 80 Mg Tab PO HS@2100 [facility] Buspirone HCl 10 mg 02/07/22 22:30 02/08/22 12:54 Buspirone Hcl 10 Mg Tab PO 10 mg Q8H [facility] Administration Carvedilol 12.5 mg 02/08/22 07:30 02/08/22 09:09 Carvedilol 12.5 Mg Tab PO 12.5 mg BID-W/MEALS [facility] Administration Docusate Sodium 100 mg 02/08/22 09:00 02/08/22 12:47 Docusate 100 Mg Cap PO Not Given DAILY@0900 [facility] Ferrous Sulfate 325 mg 02/08/22 09:00 02/08/22 09:09 Ferrous Sulfate 325 Mg Tab PO 325 mg BID@0900,2100 [facility] Administration Furosemide 40 mg 02/08/22 09:00 02/08/22 09:09 Furosemide 40 Mg Tab PO 40 mg BID [facility] Administration Hydralazine HCl 25 mg 02/08/22 09:00 02/08/22 09:09 Hydralazine Hcl 25 Mg Tab PO 25 mg TID [facility] Administration Hydralazine HCl 50 mg 02/08/22 09:00 02/08/22 09:09 Hydralazine Hcl 50 Mg Tab PO 50 mg TID [facility] Administration Insulin Aspart 20 unit 02/08/22 17:30 Insuln Asp Prt/Insulin Aspart 100 Unit/Ml 10 Ml Vial SQ AC-SUPPER [facility] Insulin Aspart 30 unit 02/08/22 07:30 02/08/22 12:55 Insuln Asp Prt/Insulin Aspart 100 Unit/Ml 10 Ml Vial SQ 30 unit AC-BRKFST [facility] Administration Isosorbide Mononitrate 60 mg 02/08/22 09:00 02/08/22 09:10 Isosorbide Mononitrate Er 60 Mg Tab.Er.24h PO 60 mg DAILY@0900 [facility] Administration Levothyroxine Sodium 125 mcg 02/08/22 06:00 02/08/22 09:09 Levothyroxine 125 Mcg Tab PO 125 mcg DAILY@0600 [facility] Administration Lisinopril 40 mg 02/08/22 09:00 02/08/22 09:09 Lisinopril 20 Mg Tab PO 40 mg DAILY [facility] Administration Magnesium Oxide 400 mg 02/08/22 09:00 02/08/22 09:09 Magnesium Oxide 400 Mg Tab PO 400 mg DAILY@0900 [facility] Administration Melatonin 10 mg 02/08/22 21:00 Melatonin 5 Mg Tablet PO HS@2100 [facility] Morphine Sulfate 4 mg 02/07/22 22:16 02/08/22 06:40 Morphine Sulfate 4 Mg/Ml Syringe IV 4 mg Q4HR PRN Administration Severe Pain Multivitamins/Minerals 1 each 02/08/22 09:00 Vit A,C & S-Bhiiza-Acyahyfc 1 Each Tab PO DAILY@0900 [facility] Naloxone HCl 0.2 mg 02/07/22 22:16 Naloxone 0.4 Mg/Ml 1 Ml Vial IV Q2M PRN Opioid Reversal Ondansetron HCl 4 mg 02/07/22 22:16 Ondansetron 4 Mg/2 Ml Vial IVP Q8HR PRN Nausea And Vomiting Pantoprazole Sodium 40 mg 02/08/22 07:30 02/08/22 09:10 Pantoprazole 40 Mg Tablet PO 40 mg AC-BRKFST [facility] Administration Pantoprazole Sodium 40 mg 02/08/22 09:00 02/08/22 09:12 Pantoprazole 40 Mg Tablet PO Not Given DAILY@0900 [facility] Polyethylene Glycol 17 gm 02/08/22 09:00 02/08/22 12:48 Polyethylene Glycol 3350 17 Gm Powd.Pack PO Not Given DAILY@0900 [facility] Potassium Chloride 20 meq 02/08/22 09:00 02/08/22 09:09 Potassium Chloride Er 20 Meq Tab.Er PO 20 meq DAILY@0900 [facility] Administration Sertraline HCl 25 mg 02/08/22 09:00 02/08/22 09:10 Sertraline 25 Mg Tab PO 25 mg DAILY@0900 [facility] Administration Intake and Output 02/07/22 02/08/22 02/08/22 22:59 06:59 14:59 Other: Weight 90.718 kg 02/08/22 10:12 02/08/22 10:12
[2022-02-08] MEDS: VIT A,C & E-LUTEIN-MINERALS 1 EACH TAB PO SCH (14:46)
[2022-02-08 16:31] LABS: Glucose,Whole Blood 531 mg/dL (70-110)
[2022-02-08 17:17] LABS: Glucose,Whole Blood 464 mg/dL (70-110)
[2022-02-08] MEDS: INSULIN ASPART (NovoLOG) 100 UNIT/ML VIAL SQ SCH ×2 (17:20→21:22)
[2022-02-08 18:34] LABS: Glucose,Whole Blood 375 mg/dL (70-110)
[2022-02-08 20:43] LABS: Glucose,Whole Blood 177 mg/dL (70-110)
[2022-02-08] MEDS: MELATONIN 5 MG TABLET PO SCH (21:22)
[2022-02-08] MEDS: ATORVASTATIN 80 MG TAB PO SCH (21:22)
[2022-02-08] MEDS: ACETAMINOPHEN TAB 325 MG TAB PO PRN (22:06)
[2022-02-09 02:15] LABS: Glucose,Whole Blood 93 mg/dL (70-110)
[2022-02-09] MEDS: busPIRone HCl 10 MG TAB PO SCH ×3 (05:18→20:35)
[2022-02-09] MEDS: ACETAMINOPHEN TAB 325 MG TAB PO PRN (05:19)
[2022-02-09 07:19] LABS: Glucose,Whole Blood 187 mg/dL (70-110)
[2022-02-09] MEDS: INSULIN ASPART (NovoLOG) 100 UNIT/ML VIAL SQ SCH ×4 (08:43→21:25)
[2022-02-09] MEDS: INSULN ASP PRT/INSULIN ASPART 100 UNIT/ML 10 ML VIAL SQ SCH ×2 (08:43→18:05)
[2022-02-09] MEDS: ISOSORBIDE MONONITRATE ER 60 MG TAB.ER.24H PO SCH (08:44)
[2022-02-09] MEDS: polyethylene glycoL 3350 17 GM POWD.PACK PO SCH (08:44)
[2022-02-09] MEDS: VIT A,C & E-LUTEIN-MINERALS 1 EACH TAB PO SCH (08:44)
[2022-02-09] MEDS: FERROUS SULFATE 325 MG TAB PO SCH ×2 (08:44→20:34)
[2022-02-09] MEDS: DOCUSATE 100 MG CAP PO SCH (08:44)
[2022-02-09] MEDS: FUROSEMIDE 40 MG TAB PO SCH ×2 (08:44→20:34)
[2022-02-09] MEDS: SERTRALINE 25 MG TAB PO SCH (08:45)
[2022-02-09] MEDS: ASPIRIN 81 MG PO SCH (08:45)
[2022-02-09] MEDS: POTASSIUM CHLORIDE ER 20 MEQ TAB.ER PO SCH (08:45)
[2022-02-09] MEDS: PANTOPRAZOLE 40 MG TABLET PO SCH ×2 (08:45→08:46)
[2022-02-09] MEDS: carvediloL 12.5 MG TAB PO SCH ×2 (08:45→18:04)
[2022-02-09] MEDS: MAGNESIUM OXIDE 400 MG TAB PO SCH (08:45)
[2022-02-09] MEDS: lisinopriL 20 MG TAB PO SCH (08:45)
[2022-02-09] MEDS: APIXABAN 2.5 MG TABLET PO SCH ×2 (08:45→20:34)
[2022-02-09] MEDS: hydrALAZINE HCL 50 MG TAB PO SCH ×3 (08:53→20:35)
[2022-02-09 09:46] LABS: HCT 36.2 % (37.2-46.3); MCH 27.2 pg (27.0-32.0); MCHC 30.4 g/dL (32.0-37.0); MCV 89.6 fL (80.0-97.0); Mean Platelet Volume 11.6 fL (9.5-12.2); NRBC Per 100 WBC 0 /100 WBCS (0.0-0.0); Platelet Count 185 X 10*3/uL (140-440); RBC 4.04 X 10*6/uL (4.10-5.20); RDW 13.1 % (11.5-14.5); WBC 8.01 X 10*3/uL (4.50-10.00)
--- NOTE | 2022-02-09 09:54 | CA ---
Transthoracic Echo Report Name: Neva Pool Age: 81 Gender: F : 1940 Exam Date: 02/08/2022 11:02 Exam Location: [facility] Ht (in): 64 Wt (lb): 190 Ordering Physician: Meka Randhawa MD Attending/Referring Phys: Esthetician Vonnie Macias RDCS Procedure CPT: Indications: Syncope Cardiac Hx: Technical Quality: Good Contrast 1: N/A Total Dose (mL): Contrast 2: Total Dose (mL): MEASUREMENTS (Male / Female) Normal Values 2D ECHO LV Diastolic Diameter PLAX 4.2 cm 4.2 - 5.9 / 3.9 - 5.3 cm LV Systolic Diameter PLAX 2.6 cm IVS Diastolic Thickness 1.6 cm 0.6 - 1.0 / 0.6 - 0.9 cm LVPW Diastolic Thickness 1.4 cm 0.6 - 1.0 / 0.6 - 0.9 cm LV Relative Wall Thickness 0.7 LA Systolic Diameter LX 4.4 cm 3.0 - 4.0 / 2.7 - 3.8 cm LA Volume 90.5 cm??? 18 - 58 / 22 - 52 cm??? M-MODE Aortic Root Diameter MM 2.9 cm LA Systolic Diameter MM 6.6 cm LA Ao Ratio MM 2.3 MV E Point Septal Separation 0.8 cm AV Cusp Separation MM 1.1 cm DOPPLER AV Peak Velocity 332.0 cm/s AV Peak Gradient 44.1 mmHg AV Mean Velocity 218.9 cm/s AV Mean Gradient 23.4 mmHg AV Velocity Time Integral 53.5 cm LVOT Peak Velocity 101.0 cm/s LVOT Peak Gradient 4.1 mmHg MV Peak Velocity 160.3 cm/s MV Peak Gradient 10.3 mmHg MV Mean Velocity 81.0 cm/s MV Mean Gradient 3.1 mmHg MV Velocity Time Integral 49.7 cm MV Area PHT 2.7 cm??? Mitral E Point Velocity 49.8 cm/s Mitral A Point Velocity 104.0 cm/s Mitral E to A Ratio 0.5 MV Deceleration Time 286.2 ms MV E' Velocity 3.0 cm/s Mitral E to MV E' Ratio 16.6 TR Peak Velocity 226.9 cm/s TR Peak Gradient 20.6 mmHg Right Ventricular Systolic Press 24.1 mmHg FINDINGS Left Ventricle Normal Left ventricular size, Moderate wall thickness, systolic function with no obvious regional wall motion abnormalities. Left ventricular ejection fraction is estimated at 50-55%. Right Ventricle Normal right ventricular size and function. Right Atrium Normal right atrial size. Left Atrium Moderately increased left atrial diameter. Severely increased left atrial volume. Mildly increased left atrial area. Mitral Valve Structurally normal mitral valve. [id number] mitral regurgitation. Aortic Valve [id number] aortic stenosis with a peak gradient of 50 mmHg and a mean gradient of 25 mmHg. Mild aortic regurgitation. Tricuspid Valve Structurally normal tricuspid valve. Mild tricuspid regurgitation. Pulmonic Valve Pulmonic valve not well visualized. Pericardium Echo free space anterior to the right ventricle likely represents a fat pad. Aorta Normal size aortic root and proximal ascending aorta. CONCLUSIONS Moderate left ventricle hypertrophy Moderate to severe aortic stenosis, calcific Previewed by: Dr. Franco Hardy MD (Electronically Signed) Final Date: 09 February 2022 09:54
[2022-02-09 10:00] LABS: ALT 12 U/L (8-44); AST 11 U/L (13-35); African American GFR (CKD) 32.4 (60.0-200.0); Albumin 3.2 g/dL (3.8-4.9); Albumin/Globulin Ratio 1.52 (1.60-3.17); Alkaline Phosphatase 77 U/L (41-126); BUN/Creat Ratio 19.18 Ratio (12.00-20.00); Blood Urea Nitrogen 32.6 mg/dL (9.0-27.0); Calcium 8.3 mg/dL (8.7-10.3); Chloride 103 mmol/L (96-109); Globulin 2.1 g/dL (1.6-3.3); Glucose 175 mg/dL (70-110); Potassium 4.2 mmol/L (3.5-5.5); Sodium 139 mmol/L (135-145); Total Bilirubin <0.15 mg/dL (0.30-1.20); Total Protein 5.3 g/dL (6.2-8.2)
[2022-02-09 11:06] LABS: Basophils # (M) 0 X 10*3/uL (0.00-0.10); Elliptocytes 2+; Eosinophils # (M) 0.56 X 10*3/uL (0.04-0.35); Lymphocytes # (M) 1.36 X 10*3/uL (0.90-5.00); Neutrophils # (M) 5.29 X 10*3/uL (2.00-8.90); Neutrophils % (M) 66 %
--- NOTE | 2022-02-09 11:14 | P.PN ---
Subjective This is a 81 year old female with a past medical history significant for paroxysmal atrial fibrillation, hypertension, hyperlipidemia, COPD, diabetes, hypothyroidism, CVA, chronic kidney disease, nonobstructive coronary artery disease, severe aortic stenosis, obstructive sleep apnea, chronic heart failure with preserved ejection fraction, and pleural effusion with right-sided thoracentesis in July 2021. Patient follows in the office with Dr. Hernandez. We have been asked to see the patient in consultation for syncope. Patient states she was walking at home when she fell. She was walking around her bed in the morning and tripped and fell. She denied any chest pain or pressure. The patient did not lose consciousness. She reports she was aware of her surroundings the entire time and is adamant that she did not pass out. It is noted that the patient was previously being worked up for an aortic valve replacement. However the patient had significantly uncontrolled hypertension and as of recently her blood pressures have been better controlled and she has had improvement in her symptoms so CTS felt patient did not require valve replacement at this time. * EKG revealed sinus mechanism with no signs of acute ischemia * Echocardiogram completed in October 2021 revealed ejection fraction 55-60%, severe aortic stenosis with a peak/mean gradient of 48 mmHg/34 mmHg, moderate mitral regurgitation, mild tricuspid regurgitation, mild pulmonary hypertension with RVSP of 39 mmHg * Cardiac catheterization history: October 2021 revealed calcified aortic valve and mitral annulus, mild coronary artery disease, severe aortic stenosis, and mild pulmonary hypertension * Patient underwent BURKE and October 2021 revealing normal left ventricular size and systolic function, severely calcified aortic valve with moderate aortic stenosis by mean gradient and severe by planimetry, moderate mitral and tricuspid regurgitation, moderate to severe pulmonary hypertension and no shunting across the interatrial septum. 02/09/2022 Patient seen and examined at bedside, no acute distress. She denies any chest pain, shortness of breath lightheadedness or dizziness. BP has been fluctuating with SBP 125-170s. HR 55-70s She is currently maintained on Eliquis 2.5mg BID, aspirin, statin, Coreg 12.5mg BID, hydralazine 75mg TID, Lasix 40mg BID, Imdur 60mg daily, Lisinopril 40mg daily Repeat Echocardiogram revealed EF 50-55%, moderate LV wall thickness, moderate to severe aortic stenosis with peak gradient 50mmHg and mean 25mmHg PHYSICAL EXAM: VITAL SIGNS: Reviewed. GENERAL: Well-developed in no acute distress. HEENT: Head is normocephalic. Pupils are equal, round. Sclerae anicteric. Mucous membranes of the mouth are moist. Neck supple. No JVD or thyromegaly LUNGS: Respirations even and unlabored. Lungs essentially clear to auscultation bilaterally. HEART: Regular rate and rhythm. S1 and S2 heard. Systolic murmur noted at right sternal border ABDOMEN: Soft. Nondistended. Nontender. EXTREMITIES: Normal range of motion. No clubbing or cyanosis. Peripheral pulses intact. No lower extremity edema NEUROLOGIC: Awake and alert. Oriented x 3. ASSESSMENT: S/P mechanical fall, no evidence of syncope T12 compression fracture Chronic heart failure with preserved ejection fraction Paroxysmal atrial fibrillation Severe aortic stenosis Hypertension Hyperlipidemia Nonobstructive coronary artery disease Obstructive sleep apnea Chronic kidney disease COPD History of pneumonia History of pleural effusion with right-sided thoracentesis in July 2021 PLAN: Patients fall is mechanical in nature with no evidence of syncope at this time Increase hydralazine to 100mg TID Could consider Valsartan as an outpatient and discontinue hydralazine and lisinopril No further changes from a cardiology perspective, we will follow the patient as needed. Please reconsult if needed. Follow up outpatient with Dr. Hernandez Nurse practitioner note has been reviewed by physician. Signing provider agrees with the documented findings, assessment, and plan of care. Objective - Vital Signs Vital signs: Vital Signs Temp 98 F 02/09/22 05:00 Pulse 54 L 02/09/22 05:00 Resp 16 02/09/22 05:00 BP 125/64 02/09/22 05:00 Pulse Ox 95 02/09/22 05:00 FiO2 Intake & Output 02/08/22 02/09/22 02/09/22 18:59 06:59 18:59 Weight 88.5 kg Other: # Voids 8 - Labs CBC & Chem 7: 02/09/22 06:55 02/09/22 06:55 Labs: Abnormal Lab Results - Last 24 Hours (Table) 02/08/22 02/08/22 02/08/22 Range/Units 11:42 16:28 17:15 RBC (4.10-5.20) X 10*6/uL Hgb (12.0-15.0) g/dL Hct (37.2-46.3) % MCHC (32.0-37.0) g/dL Eosinophils # (Manual) (0.04-0.35) X 10*3/uL Anion Gap (10.00-18.00) mmol/L BUN (9.0-27.0) mg/dL Creatinine (0.6-1.5) mg/dL Est GFR (CKD-EPI)AfAm (60.0-200.0) Est GFR (CKD-EPI)NonAf (60.0-200.0) Glucose (70-110) mg/dL POC Glucose (mg/dL) 412 H 531 H 464 H (70-110) mg/dL Calcium (8.7-10.3) mg/dL Total Bilirubin (0.30-1.20) mg/dL AST (13-35) U/L Total Protein (6.2-8.2) g/dL Albumin (3.8-4.9) g/dL Albumin/Globulin Ratio (1.60-3.17) g/dL 02/08/22 02/08/22 02/09/22 Range/Units 18:32 20:42 06:55 RBC 4.04 L (4.10-5.20) X 10*6/uL Hgb 11.0 L (12.0-15.0) g/dL Hct 36.2 L (37.2-46.3) % MCHC 30.4 L (32.0-37.0) g/dL Eosinophils # (Manual) 0.56 H (0.04-0.35) X 10*3/uL Anion Gap (10.00-18.00) mmol/L BUN (9.0-27.0) mg/dL Creatinine (0.6-1.5) mg/dL Est GFR (CKD-EPI)AfAm (60.0-200.0) Est GFR (CKD-EPI)NonAf (60.0-200.0) Glucose (70-110) mg/dL POC Glucose (mg/dL) 375 H 177 H (70-110) mg/dL Calcium (8.7-10.3) mg/dL Total Bilirubin (0.30-1.20) mg/dL AST (13-35) U/L Total Protein (6.2-8.2) g/dL Albumin (3.8-4.9) g/dL Albumin/Globulin Ratio (1.60-3.17) g/dL 02/09/22 02/09/22 Range/Units 06:55 07:17 RBC (4.10-5.20) X 10*6/uL Hgb (12.0-15.0) g/dL Hct (37.2-46.3) % MCHC (32.0-37.0) g/dL Eosinophils # (Manual) (0.04-0.35) X 10*3/uL Anion Gap 9.00 L (10.00-18.00) mmol/L BUN 32.6 H (9.0-27.0) mg/dL Creatinine 1.7 H (0.6-1.5) mg/dL Est GFR (CKD-EPI)AfAm 32.4 L (60.0-200.0) Est GFR (CKD-EPI)NonAf 28.0 L (60.0-200.0) Glucose 175 H (70-110) mg/dL POC Glucose (mg/dL) 187 H (70-110) mg/dL Calcium 8.3 L (8.7-10.3) mg/dL Total Bilirubin <0.15 L (0.30-1.20) mg/dL AST 11 L (13-35) U/L Total Protein 5.3 L (6.2-8.2) g/dL Albumin 3.2 L (3.8-4.9) g/dL Albumin/Globulin Ratio 1.52 L (1.60-3.17) g/dL
[2022-02-09 11:30] LABS: Glucose,Whole Blood 207 mg/dL (70-110)
[2022-02-09 16:24] LABS: Glucose,Whole Blood 170 mg/dL (70-110)
--- NOTE | 2022-02-09 18:53 | P.PN ---
Subjective Progress Note Date: 02/09/22 This is an 81-year-old female patient of Dr. Sheppard who presented with right lower back pain following fall. Patient reports that she turned the corner too quickly believes her sugar was low at the time. She denies loss of consciousness or injury to head patient reports she fell on her back. Patient d oes have past medical history of atrial fibrillation in which he maintained on eliquis, chest pain, heart failure, COPD, CVA, diabetes mellitus, hyperlipidemia, hypertension, renal disorder and thyroid disease. Patient reports that she had previous fusion surgery approximately 20 years ago. Lumbar spine x-ray showed previous fusion surgery. Mild new compression fractures of L3 and T12 compared to old exam. Sacrum and coccyx x-ray completed showing no evidence of sacral fracture. Patient's blood sugar upon arrival was elevated at 468. Creatinine 1.77 and bun 42 this does appear chronic for patient at this time patient is resting comfortably in bed. Patient complains of lower back pain. Patient denies any chest pain or shortness of breath. Patient denies nausea vomiting or diarrhea. Patient denies any urinary burning or frequency. Dr. Nur has been consulted for new compression fracture repeat labs ordered On 02/09/2022 patient was seen and examined on the medical floor she is alert and oriented 3 in no apparent distress there is no fever or chills no headache or dizziness no chest pain no shortness of breath no cough no nausea or vomiting no abdominal pain no diarrhea and no urinary symptoms, she was evaluated by cardiology, hydralazine was increased to 100 Mg 3 times a day due to elevated blood pressure. No other recommendation at this time patient will follow-up with Dr. Hernandez as outpatient, she was also evaluated by neurosurgery in regard to vertebral fracture recommendation is for brace, no other intervention recommended at this time. Objective - Vital Signs Vital signs: Vital Signs Temp 97.8 F 02/09/22 11:35 Pulse 55 L 02/09/22 11:35 Resp 17 02/09/22 11:35 BP 115/59 02/09/22 11:35 Pulse Ox 97 02/09/22 11:35 FiO2 Intake & Output 02/08/22 02/09/22 02/09/22 18:59 06:59 18:59 Weight 88.5 kg Other: # Voids 8 1 - Exam In general patient is alert and oriented 3 in no apparent distress Head normocephalic and atraumatic Neck supple no JVD no goiter Lungs clear to auscultation bilaterally no wheezing or crackles Heart irregular rhythm known atrial fibrillation Abdomen is soft nontender nondistended positive bowel sounds no hepatosplenomegaly Extremities no edema Neuro no gross focal neurological deficit - Labs CBC & Chem 7: 02/09/22 06:55 02/09/22 06:55 Labs: Abnormal Lab Results - Last 24 Hours (Table) 02/08/22 02/08/22 02/08/22 Range/Units 16:28 17:15 18:32 RBC (4.10-5.20) X 10*6/uL Hgb (12.0-15.0) g/dL Hct (37.2-46.3) % MCHC (32.0-37.0) g/dL Eosinophils # (Manual) (0.04-0.35) X 10*3/uL Anion Gap (10.00-18.00) mmol/L BUN (9.0-27.0) mg/dL Creatinine (0.6-1.5) mg/dL Est GFR (CKD-EPI)AfAm (60.0-200.0) Est GFR (CKD-EPI)NonAf (60.0-200.0) Glucose (70-110) mg/dL POC Glucose (mg/dL) 531 H 464 H 375 H (70-110) mg/dL Calcium (8.7-10.3) mg/dL Total Bilirubin (0.30-1.20) mg/dL AST (13-35) U/L Total Protein (6.2-8.2) g/dL Albumin (3.8-4.9) g/dL Albumin/Globulin Ratio (1.60-3.17) g/dL 02/08/22 02/09/22 02/09/22 Range/Units 20:42 06:55 06:55 RBC 4.04 L (4.10-5.20) X 10*6/uL Hgb 11.0 L (12.0-15.0) g/dL Hct 36.2 L (37.2-46.3) % MCHC 30.4 L (32.0-37.0) g/dL Eosinophils # (Manual) 0.56 H (0.04-0.35) X 10*3/uL Anion Gap 9.00 L (10.00-18.00) mmol/L BUN 32.6 H (9.0-27.0) mg/dL Creatinine 1.7 H (0.6-1.5) mg/dL Est GFR (CKD-EPI)AfAm 32.4 L (60.0-200.0) Est GFR (CKD-EPI)NonAf 28.0 L (60.0-200.0) Glucose 175 H (70-110) mg/dL POC Glucose (mg/dL) 177 H (70-110) mg/dL Calcium 8.3 L (8.7-10.3) mg/dL Total Bilirubin <0.15 L (0.30-1.20) mg/dL AST 11 L (13-35) U/L Total Protein 5.3 L (6.2-8.2) g/dL Albumin 3.2 L (3.8-4.9) g/dL Albumin/Globulin Ratio 1.52 L (1.60-3.17) g/dL 02/09/22/ Range/Units 07:17 11:29 RBC (4.10-5.20) X 10*6/uL Hgb (12.0-15.0) g/dL Hct (37.2-46.3) % MCHC (32.0-37.0) g/dL Eosinophils # (Manual) (0.04-0.35) X 10*3/uL Anion Gap (10.00-18.00) mmol/L BUN (9.0-27.0) mg/dL Creatinine (0.6-1.5) mg/dL Est GFR (CKD-EPI)AfAm (60.0-200.0) Est GFR (CKD-EPI)NonAf (60.0-200.0) Glucose (70-110) mg/dL POC Glucose (mg/dL) 187 H 207 H (70-110) mg/dL Calcium (8.7-10.3) mg/dL Total Bilirubin (0.30-1.20) mg/dL AST (13-35) U/L Total Protein (6.2-8.2) g/dL Albumin (3.8-4.9) g/dL Albumin/Globulin Ratio (1.60-3.17) g/dL Assessment and Plan Assessment: 1. Status post fall with lumbar compression fracture 2. History of paroxysmal atrial fibrillation. Maintained on eliquis 3. History of chronic diastolic heart failure 4. History of COPD no exacerbation at this time 5. Diabetes mellitus type 2 6. Chronic kidney disease stage III 7. History of aortic stenosis with previous outpatient workup for TAVR 8. History of essential hypertension 9. History of hyperlipidemia At this time patient has been admitted Dr. Nur has been consulted for compression fracture Due to concerns about possible syncopal episode and patient's cardiac history will consult cardiology services and order 2-D echo Repeat labs ordered PT OT and social work services consulted Plan: 1. Status post fall with lumbar compression fracture 2. History of paroxysmal atrial fibrillation. Maintained on eliquis 3. History of chronic diastolic heart failure 4. History of COPD no exacerbation at this time 5. Diabetes mellitus type 2 6. Chronic kidney disease stage III 7. History of aortic stenosis with previous outpatient workup for TAVR 8. History of essential hypertension 9. History of hyperlipidemia At this time patient has been admitted Dr. Nur has been consulted for compression fracture Due to concerns about possible syncopal episode and patient's cardiac history will consult cardiology services and order 2-D echo Repeat labs ordered PT OT and social work services consulted
[2022-02-09] MEDS: MELATONIN 5 MG TABLET PO SCH (20:34)
[2022-02-09] MEDS: ATORVASTATIN 80 MG TAB PO SCH (20:35)
[2022-02-09 20:41] LABS: Glucose,Whole Blood 222 mg/dL (70-110)
[2022-02-10] MEDS: busPIRone HCl 10 MG TAB PO SCH ×3 (05:02→20:47)
[2022-02-10] MEDS: LEVOTHYROXINE 125 MCG TAB PO SCH (05:13)
[2022-02-10 06:56] LABS: Glucose,Whole Blood 271 mg/dL (70-110)
[2022-02-10] MEDS: INSULN ASP PRT/INSULIN ASPART 100 UNIT/ML 10 ML VIAL SQ SCH ×2 (08:51→18:11)
[2022-02-10] MEDS: DOCUSATE 100 MG CAP PO SCH (08:52)
[2022-02-10] MEDS: INSULIN ASPART (NovoLOG) 100 UNIT/ML VIAL SQ SCH ×4 (08:52→20:47)
[2022-02-10] MEDS: ASPIRIN 81 MG PO SCH (08:52)
[2022-02-10] MEDS: FUROSEMIDE 40 MG TAB PO SCH ×2 (08:52→20:37)
[2022-02-10] MEDS: hydrALAZINE HCL 50 MG TAB PO SCH ×3 (08:53→18:49)
[2022-02-10] MEDS: ISOSORBIDE MONONITRATE ER 60 MG TAB.ER.24H PO SCH (08:53)
[2022-02-10] MEDS: FERROUS SULFATE 325 MG TAB PO SCH ×2 (08:53→20:47)
[2022-02-10] MEDS: PANTOPRAZOLE 40 MG TABLET PO SCH ×2 (08:53→13:42)
[2022-02-10] MEDS: carvediloL 12.5 MG TAB PO SCH ×2 (08:53→18:12)
[2022-02-10] MEDS: MAGNESIUM OXIDE 400 MG TAB PO SCH (08:53)
[2022-02-10] MEDS: POTASSIUM CHLORIDE ER 20 MEQ TAB.ER PO SCH (08:54)
[2022-02-10] MEDS: VIT A,C & E-LUTEIN-MINERALS 1 EACH TAB PO SCH (08:54)
[2022-02-10] MEDS: SERTRALINE 25 MG TAB PO SCH (08:54)
[2022-02-10] MEDS: lisinopriL 20 MG TAB PO SCH (08:54)
[2022-02-10] MEDS: polyethylene glycoL 3350 17 GM POWD.PACK PO SCH (08:54)
[2022-02-10 09:08] LABS: Basophils # (A) 0.03 X 10*3/uL (0.00-0.10); Basophils % (A) 0.4 %; Eosinophils # (A) 0.49 X 10*3/uL (0.04-0.35); Eosinophils % (A) 5.8 %; HGB 11.2 g/dL (12.0-15.0); Immature Grans, Automated 1.2 %; Lymphocytes # (A) 1.47 X 10*3/uL (0.90-5.00); Lymphocytes % (A) 17.3 %; MCH 27.7 pg (27.0-32.0); MCHC 31.1 g/dL (32.0-37.0); MCV 89.1 fL (80.0-97.0); Mean Platelet Volume 11.7 fL (9.5-12.2); Monocytes # (A) 1.55 X 10*3/uL (0.20-1.00); Monocytes % (A) 18.3 %; NRBC Per 100 WBC 0 /100 WBCS (0.0-0.0); Neutrophils # (A) 4.85 X 10*3/uL (1.80-7.70); Platelet Count 187 X 10*3/uL (140-440); RBC 4.04 X 10*6/uL (4.10-5.20); RDW 13.2 % (11.5-14.5); WBC 8.49 X 10*3/uL (4.50-10.00)
[2022-02-10 09:19] LABS: ALT 12 U/L (8-44); AST 14 U/L (13-35); African American GFR (CKD) 28.4 (60.0-200.0); Albumin 3.1 g/dL (3.8-4.9); Albumin/Globulin Ratio 1.41 (1.60-3.17); Alkaline Phosphatase 83 U/L (41-126); Calcium 8.2 mg/dL (8.7-10.3); Carbon Dioxide 22.9 mmol/L (20.0-27.5); Chloride 102 mmol/L (96-109); Globulin 2.2 g/dL (1.6-3.3); Glucose 293 mg/dL (70-110); Non-African American GFR(CKD) 24.5 (60.0-200.0); Potassium 4.8 mmol/L (3.5-5.5); Sodium 135 mmol/L (135-145); Total Bilirubin <0.15 mg/dL (0.30-1.20); Total Protein 5.3 g/dL (6.2-8.2)
--- NOTE | 2022-02-10 09:33 | P.PN ---
Subjective Progress Note Date: 02/10/22 This is an 81-year-old female patient of Dr. Sheppard who presented with right lower back pain following fall. Patient reports that she turned the corner too quickly believes her sugar was low at the time. She denies loss of consciousness or injury to head patient reports she fell on her back. Patient d oes have past medical history of atrial fibrillation in which he maintained on eliquis, chest pain, heart failure, COPD, CVA, diabetes mellitus, hyperlipidemia, hypertension, renal disorder and thyroid disease. Patient reports that she had previous fusion surgery approximately 20 years ago. Lumbar spine x-ray showed previous fusion surgery. Mild new compression fractures of L3 and T12 compared to old exam. Sacrum and coccyx x-ray completed showing no evidence of sacral fracture. Patient's blood sugar upon arrival was elevated at 468. Creatinine 1.77 and bun 42 this does appear chronic for patient at this time patient is resting comfortably in bed. Patient complains of lower back pain. Patient denies any chest pain or shortness of breath. Patient denies nausea vomiting or diarrhea. Patient denies any urinary burning or frequency. Dr. Nur has been consulted for new compression fracture repeat labs ordered On 02/09/2022 patient was seen and examined on the medical floor she is alert and oriented 3 in no apparent distress there is no fever or chills no headache or dizziness no chest pain no shortness of breath no cough no nausea or vomiting no abdominal pain no diarrhea and no urinary symptoms, she was evaluated by cardiology, hydralazine was increased to 100 Mg 3 times a day due to elevated blood pressure. No other recommendation at this time patient will follow-up with Dr. Hernandez as outpatient, she was also evaluated by neurosurgery in regard to vertebral fracture recommendation is for brace, no other intervention recommended at this time. On 02/10/2023 patient is alert and oriented 3. Patient still complaining of back pain. Discharge planning in place to rehab. Current temp 98.4, heart rate 64, respiratory rate 18, blood pressure 134/63 with pulse ox of 96% on room air Objective - Vital Signs Vital signs: Vital Signs Temp 98.4 F 02/10/22 05:00 Pulse 64 02/10/22 05:00 Resp 18 02/10/22 05:00 BP 149/69 02/10/22 05:00 Pulse Ox 94 L 02/10/22 05:00 FiO2 Intake & Output 02/09/22 02/10/22 02/10/22 18:59 06:59 18:59 Intake Total 640 Balance 640 Weight 91 kg Intake: Oral 640 Other: Voiding Method Toilet # Voids 1 5 - Exam In general patient is alert and oriented 3 in no apparent distress Head normocephalic and atraumatic Neck supple no JVD no goiter Lungs clear to auscultation bilaterally no wheezing or crackles Heart irregular rhythm known atrial fibrillation Abdomen is soft nontender nondistended positive bowel sounds no hepatosplenomegaly Extremities no edema Neuro no gross focal neurological deficit - Labs CBC & Chem 7: 02/10/22 06:50 02/10/22 06:50 Labs: Abnormal Lab Results - Last 24 Hours (Table) 02/09/22 02/09/22 02/09/22 Range/Units 06:55 06:55 11:29 RBC 4.04 L (4.10-5.20) X 10*6/uL Hgb 11.0 L (12.0-15.0) g/dL Hct 36.2 L (37.2-46.3) % MCHC 30.4 L (32.0-37.0) g/dL Immature Gran # (0.00-0.04) X 10*3/uL Monocytes # (0.20-1.00) X 10*3/uL Eosinophils # (0.04-0.35) X 10*3/uL Eosinophils # (Manual) 0.56 H (0.04-0.35) X 10*3/uL Anion Gap 9.00 L (10.00-18.00) mmol/L BUN 32.6 H (9.0-27.0) mg/dL Creatinine 1.7 H (0.6-1.5) mg/dL Est GFR (CKD-EPI)AfAm 32.4 L (60.0-200.0) Est GFR (CKD-EPI)NonAf 28.0 L (60.0-200.0) Glucose 175 H (70-110) mg/dL POC Glucose (mg/dL) 207 H (70-110) mg/dL Calcium 8.3 L (8.7-10.3) mg/dL Total Bilirubin <0.15 L (0.30-1.20) mg/dL AST 11 L (13-35) U/L Total Protein 5.3 L (6.2-8.2) g/dL Albumin 3.2 L (3.8-4.9) g/dL Albumin/Globulin Ratio 1.52 L (1.60-3.17) g/dL 02/09/22 02/09/22 02/10/22 Range/Units 16:23 20:33 06:50 RBC 4.04 L (4.10-5.20) X 10*6/uL Hgb 11.2 L (12.0-15.0) g/dL Hct 36.0 L (37.2-46.3) % MCHC 31.1 L (32.0-37.0) g/dL Immature Gran # 0.10 H (0.00-0.04) X 10*3/uL Monocytes # 1.55 H (0.20-1.00) X 10*3/uL Eosinophils # 0.49 H (0.04-0.35) X 10*3/uL Eosinophils # (Manual) (0.04-0.35) X 10*3/uL Anion Gap (10.00-18.00) mmol/L BUN (9.0-27.0) mg/dL Creatinine (0.6-1.5) mg/dL Est GFR (CKD-EPI)AfAm (60.0-200.0) Est GFR (CKD-EPI)NonAf (60.0-200.0) Glucose (70-110) mg/dL POC Glucose (mg/dL) 170 H 222 H (70-110) mg/dL Calcium (8.7-10.3) mg/dL Total Bilirubin (0.30-1.20) mg/dL AST (13-35) U/L Total Protein (6.2-8.2) g/dL Albumin (3.8-4.9) g/dL Albumin/Globulin Ratio (1.60-3.17) g/dL 02/10/22 02/10/22 Range/Units 06:50 06:54 RBC (4.10-5.20) X 10*6/uL Hgb (12.0-15.0) g/dL Hct (37.2-46.3) % MCHC (32.0-37.0) g/dL Immature Gran # (0.00-0.04) X 10*3/uL Monocytes # (0.20-1.00) X 10*3/uL Eosinophils # (0.04-0.35) X 10*3/uL Eosinophils # (Manual) (0.04-0.35) X 10*3/uL Anion Gap (10.00-18.00) mmol/L BUN 38.0 H (9.0-27.0) mg/dL Creatinine 1.9 H (0.6-1.5) mg/dL Est GFR (CKD-EPI)AfAm 28.4 L (60.0-200.0) Est GFR (CKD-EPI)NonAf 24.5 L (60.0-200.0) Glucose 293 H (70-110) mg/dL POC Glucose (mg/dL) 271 H (70-110) mg/dL Calcium 8.2 L (8.7-10.3) mg/dL Total Bilirubin <0.15 L (0.30-1.20) mg/dL AST (13-35) U/L Total Protein 5.3 L (6.2-8.2) g/dL Albumin 3.1 L (3.8-4.9) g/dL Albumin/Globulin Ratio 1.41 L (1.60-3.17) g/dL Assessment and Plan Assessment: 1. Status post fall with lumbar compression fracture 2. History of paroxysmal atrial fibrillation. Maintained on eliquis 3. History of chronic diastolic heart failure 4. History of COPD no exacerbation at this time 5. Diabetes mellitus type 2 6. Chronic kidney disease stage III 7. History of aortic stenosis with previous outpatient workup for TAVR 8. History of essential hypertension 9. History of hyperlipidemia At this time patient has been admitted Dr. Nur has been consulted for compression fracture- TLSO brace orders No further workup cardiology Discharge planning in place for rehab Repeat labs ordered PT OT and social work services consulted
[2022-02-10 10:59] LABS: Glucose,Whole Blood 298 mg/dL (70-110)
[2022-02-10] MEDS: APIXABAN 2.5 MG TABLET PO SCH ×2 (13:42→20:47)
[2022-02-10 17:18] LABS: Glucose,Whole Blood 187 mg/dL (70-110)
[2022-02-10] MEDS: ACETAMINOPHEN TAB 325 MG TAB PO PRN (19:21)
[2022-02-10 20:37] LABS: Glucose,Whole Blood 217 mg/dL (70-110)
[2022-02-10] MEDS: MELATONIN 5 MG TABLET PO SCH (20:46)
[2022-02-10] MEDS: ATORVASTATIN 80 MG TAB PO SCH (20:46)
[2022-02-11] MEDS: busPIRone HCl 10 MG TAB PO SCH ×3 (04:52→20:24)
[2022-02-11] MEDS: ACETAMINOPHEN TAB 325 MG TAB PO PRN ×2 (04:54→19:29)
[2022-02-11] MEDS: LEVOTHYROXINE 125 MCG TAB PO SCH (06:04)
[2022-02-11 07:09] LABS: Glucose,Whole Blood 152 mg/dL (70-110)
[2022-02-11] MEDS: polyethylene glycoL 3350 17 GM POWD.PACK PO SCH (08:36)
[2022-02-11] MEDS: APIXABAN 2.5 MG TABLET PO SCH ×2 (08:37→20:43)
[2022-02-11] MEDS: FUROSEMIDE 40 MG TAB PO SCH ×2 (08:37→20:24)
[2022-02-11] MEDS: carvediloL 12.5 MG TAB PO SCH ×2 (08:37→16:43)
[2022-02-11] MEDS: PANTOPRAZOLE 40 MG TABLET PO SCH ×3 (08:37→08:38)
[2022-02-11] MEDS: hydrALAZINE HCL 50 MG TAB PO SCH ×3 (08:37→20:44)
[2022-02-11] MEDS: ASPIRIN 81 MG PO SCH (08:37)
[2022-02-11] MEDS: lisinopriL 20 MG TAB PO SCH (08:37)
[2022-02-11] MEDS: VIT A,C & E-LUTEIN-MINERALS 1 EACH TAB PO SCH (08:38)
[2022-02-11] MEDS: MAGNESIUM OXIDE 400 MG TAB PO SCH (08:38)
[2022-02-11] MEDS: POTASSIUM CHLORIDE ER 20 MEQ TAB.ER PO SCH (08:38)
[2022-02-11] MEDS: DOCUSATE 100 MG CAP PO SCH (08:38)
[2022-02-11] MEDS: INSULIN ASPART (NovoLOG) 100 UNIT/ML VIAL SQ SCH ×4 (08:38→20:44)
[2022-02-11] MEDS: ISOSORBIDE MONONITRATE ER 60 MG TAB.ER.24H PO SCH (08:38)
[2022-02-11] MEDS: SERTRALINE 25 MG TAB PO SCH (08:38)
[2022-02-11] MEDS: FERROUS SULFATE 325 MG TAB PO SCH ×2 (08:38→20:44)
[2022-02-11] MEDS: INSULN ASP PRT/INSULIN ASPART 100 UNIT/ML 10 ML VIAL SQ SCH ×2 (08:39→17:57)
[2022-02-11 11:22] LABS: Glucose,Whole Blood 219 mg/dL (70-110)
--- NOTE | 2022-02-11 11:34 | P.NPCON ---
History of Present Illness - Reason for Consult Consult date: 02/11/22 acute renal failure - Chief Complaint Fall and FRACTURE T12 - History of Present Illness Is an 81-year-old female seen in consultation because of chronic kidney disease and acute kidney injury. Her baseline creatinine of 1.5. Protein to creatinine ratio of 0.9 on 11/17/2021 Creatinine was 1.9 admission. She came in because of fall and has a T12 fracture. Currently she is feeling fine except for the pain. No nausea vomiting she is somewhat constipated no diarrhea. No chest pain fever chills no discomfort in her abdomen. No dysuria frequency. Denies taking any Advil Aleve Motrin prior to her admission to the hospital. Her past history significant for atrial fibrillation history of COPD significant aortic valve stenosis, heart cath November 08 shows mild coronary artery disease and mild pulmonary hypertension. Is known with COPD and diabetes. Past Medical History Past Medical History: Atrial Fibrillation, Cancer, Chest Pain / Angina, Heart Failure, COPD, CVA/TIA, Diabetes Mellitus, Hyperlipidemia, Hypertension, Osteoarthritis (OA), Pneumonia, Renal Disease, Sleep Apnea/CPAP/BIPAP, Syncope, Thyroid Disorder Additional Past Medical History / Comment(s): Stage III Kidney Disease, hx Pneumonia with Sepsis, no CPAP use (family states she hasn't been out of the hospital long enough to get a CPAP machine), Vitamin D Deficiency, chronic low back pain, frequent constipation, hx skin cancer, neuropathy History of Any Multi-Drug Resistant Organisms: None Reported Past Surgical History: Adenoidectomy, Back Surgery, Bariatric Surgery, Cholecystectomy, Heart Catheterization, Hysterectomy, Tonsillectomy Additional Past Surgical History / Comment(s): Cardiac caths , lap band placed/since removed, low back surgery, L carpal tunnel release X2, skin cancer removal, colonoscopies, bilateral cataract removals/lens implants. Past Anesthesia/Blood Transfusion Reactions: Previous Problems w/ Anesthesia Additional Past Anesthesia/Blood Transfusion Reaction / Comment(s): "Had too much anesthesia in 2007 for lap band removal, had to be bagged." Past Psychological History: Depression Smoking Status: Never smoker - Past Family History Sister(s) Family Medical History: Myocardial Infarction ([place]) Brother(s) Family Medical History: Cancer Additional Family Medical History / Comment(s): Colon Cancer. Mother Family Medical History: Dementia Additional Family Medical History / Comment(s): Mother of dementia at the age of 89yrs. Father Family Medical History: Cancer Additional Family Medical History / Comment(s): Pt states her father was treated for a sinus infection but really had leukemia and of this at the age of 72 yrs. Medications and Allergies Home Medications Medication Instructions Recorded Confirmed Type Atorvastatin [Lipitor] 80 mg PO HS@209906/30/18 02/07/22 History Potassium Chloride ER [K-Dur 20] 20 meq PO DAILY@89908/06/21 02/07/22 History Sertraline [Zoloft] 25 mg PO DAILY@89908/30/21 02/07/22 History Albuterol Nebulized [Ventolin 2.5 mg INHALATION RT-QID PRN 09/24/21 02/07/22 History Nebulized] Artificial Tears-Hypromellose 1 drop BOTH EYES TID PRN 09/24/21 02/07/22 History [Artificial Tear Drops] Docusate [Colace] 100 mg PO DAILY@89909/24/21 02/07/22 History Isosorbide Mononitrate ER [Imdur] 60 mg PO DAILY@89909/24/21 02/07/22 History Multivit-Min/Iron/Folic/Lutein 1 tab PO DAILY@89909/24/21 02/07/22 History [Centrum Silver Women Tablet] Apixaban [Eliquis] 2.5 mg PO BID@0900,209912/01/21 02/07/22 History Aspirin [Adult Low Dose Aspirin EC] 81 mg PO DAILY@89912/01/21 02/07/22 History Levothyroxine Sodium [Synthroid] 125 mcg PO DAILY@59912/01/21 02/07/22 History Magnesium Oxide [Mag-Ox] 400 mg PO DAILY@89912/01/21 02/07/22 History Melatonin [Melatonin ER] 10 mg PO HS@209912/01/21 02/07/22 History Omeprazole 40 mg PO DAILY@89912/01/21 02/07/22 History polyethylene glycoL 3350 [Miralax] 17 gm PO DAILY@89912/01/21 02/07/22 History Ferrous Sulfate [Feosol] 325 mg PO BID@ #60 tab 12/02/21 02/07/22 Rx Furosemide [Lasix] 40 mg PO BID #60 tab 12/02/21 02/07/22 Rx busPIRone HCl [Buspar] 10 mg PO Q8H #90 tab 12/02/21 02/07/22 Rx hydrALAZINE HCL [Apresoline] 50 mg PO TID 12/19/21 02/07/22 History lisinopriL 40 mg PO DAILY 12/19/21 02/07/22 History Acetaminophen Tab [Tylenol] 650 mg PO Q4H PRN #60 tab 12/21/21 02/07/22 Rx INSULIN ASPART (NovoLOG) [NovoLOG 3 unit SQ ACHS 30 Days #4 each 12/21/21 02/07/22 Rx (formulary)] Insuln Asp Prt/Insulin Aspart 20 unit SQ AC-SUPPER 30 Days #5 12/21/21 02/07/22 Rx [NovoLOG MIX 70-30 VIAL] each Insuln Asp Prt/Insulin Aspart 30 unit SQ AC-BRKFST 30 Days #5 12/21/21 02/07/22 Rx [NovoLOG MIX 70-30 VIAL] each carvediloL [Coreg*] 12.5 mg PO BID-W/MEALS 30 Days #60 12/21/21 02/07/22 Rx tab hydrALAZINE HCL [Apresoline] 25 mg PO TID 02/07/22 02/07/22 History Allergies Allergy/AdvReac Type Severity Reaction Status Date / Time azithromycin Allergy Rash/Hives Verified 02/07/22 15:48 [From Zithromax Z-Jeanmarie] methylprednisolone Allergy Rash/Hives Verified 02/07/22 15:48 [From Medrol] sulfamethoxazole Allergy Rash/Hives Verified 02/07/22 15:48 [From Bactrim] trimethoprim [From Bactrim] Allergy Rash/Hives Verified 02/07/22 15:48 hydrochlorothiazide AdvReac lost Verified 02/07/22 15:48 balance and fell Physical Exam Vitals: Vital Signs Temp Pulse Resp BP Pulse Ox 02/11/22 11:18 98.1 F 53 L 18 134/64 96 02/11/22 09:07 68 138/68 02/11/22 05:00 97.4 F L 54 L 16 146/68 97 02/10/22 21:00 97.9 F 60 16 139/68 96 02/10/22 20:00 16 02/10/22 18:16 169/70 02/10/22 16:04 99/47 02/10/22 12:27 97.8 F 55 L 14 116/66 98 Intake and Output 02/10/22 02/11/22 02/11/22 22:59 06:59 14:59 Intake Total 480 240 Balance 480 240 Intake: Oral 480 240 Other: Voiding Method Toilet # Voids 7 4 1 Weight 86.7 kg On examination awake alert oriented comfortable No neck deafness. Lungs are clear to auscultation good air entry bilaterally Heart sounds unremarkable for any murmur rub gallop Abdomen soft nontender protuberant Extremity exam reveals no edema Neurologically awake alert oriented moves all her extremities. Results - Lab Results Most recent lab results Calcium 8.2 mg/dL (8.7-10.3) L 02/10/22 06:50 02/10/22 06:50 02/10/22 06:50 Assessment and Plan Assessment: Impression 1. Acute kidney injuries, secondary to prerenal state after possible syncope and resultant fall and fracture of her T12. 2. Chronic kidney disease, stage III with diabetic nephropathy proteinuria of 0.9 g baseline creatinine 1.5 3. Atrial fibrillation. 4. Severe aortic stenosis with mild coronary artery disease based on cardiac catheterization and echocardiogram 5. Hemoglobin 11.2 at target mildly anemic Recommendation 1. Check post void residual 2. Avoid any nephrotoxic medications and diet studies. 3. Monitor blood pressure and vital signs and 4. Will need to be followed up in outpatient and renal protective BISI inhibitor's or ARB is to be instituted once she is stable Thank you for this consultation, will continue follow closely
--- NOTE | 2022-02-11 11:59 | P.PN ---
Subjective Progress Note Date: 02/11/22 This is an 81-year-old female patient of Dr. Sheppard who presented with right lower back pain following fall. Patient reports that she turned the corner too quickly believes her sugar was low at the time. She denies loss of consciousness or injury to head patient reports she fell on her back. Patient d oes have past medical history of atrial fibrillation in which he maintained on eliquis, chest pain, heart failure, COPD, CVA, diabetes mellitus, hyperlipidemia, hypertension, renal disorder and thyroid disease. Patient reports that she had previous fusion surgery approximately 20 years ago. Lumbar spine x-ray showed previous fusion surgery. Mild new compression fractures of L3 and T12 compared to old exam. Sacrum and coccyx x-ray completed showing no evidence of sacral fracture. Patient's blood sugar upon arrival was elevated at 468. Creatinine 1.77 and bun 42 this does appear chronic for patient at this time patient is resting comfortably in bed. Patient complains of lower back pain. Patient denies any chest pain or shortness of breath. Patient denies nausea vomiting or diarrhea. Patient denies any urinary burning or frequency. Dr. Nur has been consulted for new compression fracture repeat labs ordered On 02/09/2022 patient was seen and examined on the medical floor she is alert and oriented 3 in no apparent distress there is no fever or chills no headache or dizziness no chest pain no shortness of breath no cough no nausea or vomiting no abdominal pain no diarrhea and no urinary symptoms, she was evaluated by cardiology, hydralazine was increased to 100 Mg 3 times a day due to elevated blood pressure. No other recommendation at this time patient will follow-up with Dr. Hernandez as outpatient, she was also evaluated by neurosurgery in regard to vertebral fracture recommendation is for brace, no other intervention recommended at this time. On 02/10/2022 patient is alert and oriented 3. Patient still complaining of back pain. Discharge planning in place to rehab. Current temp 98.4, heart rate 64, respiratory rate 18, blood pressure 134/63 with pulse ox of 96% on room air On 02/11/2022 patient was seen and examined on the medical floor she is alert and oriented 3 in no apparent distress she is complaining of severe back pain she is also complaining of left arm and shoulder pain, she is complaining of constipation and inability to stand and walk otherwise she denies any complaints there is no fever or chills no headache or dizziness no chest pain no shortness of breath no cough no nausea or vomiting no abdominal pain no diarrhea and no urinary symptoms Objective - Vital Signs Vital signs: Vital Signs Temp 98.1 F 02/11/22 11:18 Pulse 53 L 02/11/22 11:18 Resp 18 02/11/22 11:18 BP 134/64 02/11/22 11:18 Pulse Ox 96 02/11/22 11:18 FiO2 Intake & Output 02/10/22 02/11/22 02/11/22 18:59 06:59 18:59 Intake Total 720 Balance 720 Weight 86.7 kg Intake: Oral 720 Other: Voiding Method Toilet # Voids 7 4 1 - Exam In general patient is alert and oriented 3 in no apparent distress Head normocephalic and atraumatic Neck supple no JVD no goiter Lungs clear to auscultation bilaterally no wheezing or crackles Heart irregular rhythm known atrial fibrillation Abdomen is soft nontender nondistended positive bowel sounds no hepatosplenomegaly Extremities no edema Neuro no gross focal neurological deficit - Labs CBC & Chem 7: 02/10/22 06:50 02/10/22 06:50 Labs: Abnormal Lab Results - Last 24 Hours (Table) 02/10/22 02/10/22 02/11/22 Range/Units 17:16 20:35 07:07 POC Glucose (mg/dL) 187 H 217 H 152 H (70-110) mg/dL 02/11/22 Range/Units 11:20 POC Glucose (mg/dL) 219 H (70-110) mg/dL Assessment and Plan Plan: 1. Status post fall with lumbar compression fracture 2. History of paroxysmal atrial fibrillation. Maintained on eliquis 3. History of chronic diastolic heart failure 4. History of COPD no exacerbation at this time 5. Diabetes mellitus type 2 6. Chronic kidney disease stage III 7. History of aortic stenosis with previous outpatient workup for TAVR 8. History of essential hypertension 9. History of hyperlipidemia At this time patient has been admitted Dr. Nur has been consulted for compression fracture Due to concerns about possible syncopal episode and patient's cardiac history will consult cardiology services and order 2-D echo Repeat labs ordered PT OT and social work services consulted
[2022-02-11 12:38] LABS: Basophils # (A) 0.06 X 10*3/uL (0.00-0.10); Basophils % (A) 0.7 %; Eosinophils # (A) 0.64 X 10*3/uL (0.04-0.35); Eosinophils % (A) 7.6 %; HCT 37.4 % (37.2-46.3); HGB 11.3 g/dL (12.0-15.0); Immature Grans, Automated 1.9 %; Lymphocytes # (A) 1.64 X 10*3/uL (0.90-5.00); Lymphocytes % (A) 19.4 %; MCH 27.4 pg (27.0-32.0); MCHC 30.2 g/dL (32.0-37.0); MCV 90.6 fL (80.0-97.0); Mean Platelet Volume 11.5 fL (9.5-12.2); Monocytes # (A) 1.68 X 10*3/uL (0.20-1.00); Monocytes % (A) 19.9 %; NRBC Per 100 WBC 0 /100 WBCS (0.0-0.0); Neutrophils # (A) 4.26 X 10*3/uL (1.80-7.70); Neutrophils % (A) 50.5 %; Platelet Count 202 X 10*3/uL (140-440); RBC 4.13 X 10*6/uL (4.10-5.20); RDW 13.3 % (11.5-14.5); WBC 8.44 X 10*3/uL (4.50-10.00)
[2022-02-11] MEDS ORDERED: NA PHOS,M-B/NA PHOS,DI-BA 133 ML ENEMA RECTAL STA (12:41)
[2022-02-11 13:31] LABS: ALT 11 U/L (8-44); AST 13 U/L (13-35); African American GFR (CKD) 32.4 (60.0-200.0); Albumin 3.2 g/dL (3.8-4.9); Albumin/Globulin Ratio 1.52 (1.60-3.17); Alkaline Phosphatase 80 U/L (41-126); BUN/Creat Ratio 21.88 Ratio (12.00-20.00); Blood Urea Nitrogen 37.2 mg/dL (9.0-27.0); Calcium 8.6 mg/dL (8.7-10.3); Carbon Dioxide 27.5 mmol/L (20.0-27.5); Chloride 103 mmol/L (96-109); Globulin 2.1 g/dL (1.6-3.3); Glucose 129 mg/dL (70-110); Potassium 4.6 mmol/L (3.5-5.5); Sodium 141 mmol/L (135-145); Total Bilirubin <0.15 mg/dL (0.30-1.20); Total Protein 5.3 g/dL (6.2-8.2)
--- NOTE | 2022-02-11 14:37 | XR ---
EXAMINATION TYPE: XR shoulder complete LT DATE OF EXAM: 02/11/2022 COMPARISON: NONE HISTORY: Pain. Fall TECHNIQUE: 3 views FINDINGS: There is narrowing and spurring at the glenohumeral joint. I see no fracture nor dislocatio n. AC joint is intact. IMPRESSION: Moderate osteoarthritis of the glenohumeral joint. No fracture seen.
--- NOTE | 2022-02-11 14:39 | XR ---
EXAMINATION TYPE: XR humerus LT DATE OF EXAM: 02/11/2022 COMPARISON: NONE HISTORY: Pain TECHNIQUE: 2 views FINDINGS: There is narrowing and spurring at the glenohumeral joint. Elbow joint appears intact. No f racture seen. IMPRESSION: Osteoarthritis of the shoulder joint. No fracture seen. There is probably some pleural reaction or fluid at the left lung base.
[2022-02-11 17:51] LABS: Glucose,Whole Blood 208 mg/dL (70-110)
[2022-02-11 20:35] LABS: Glucose,Whole Blood 209 mg/dL (70-110)
[2022-02-11] MEDS: ATORVASTATIN 80 MG TAB PO SCH (20:44)
[2022-02-11] MEDS: MELATONIN 5 MG TABLET PO SCH (20:44)
[2022-02-12] MEDS: ACETAMINOPHEN IV (For NPO) 1,000 MG in EMPTY BAG 1 BAG IVPB PRN ×3 (01:10→21:17)
[2022-02-12] MEDS: busPIRone HCl 10 MG TAB PO SCH ×3 (05:22→20:29)
[2022-02-12] MEDS: LEVOTHYROXINE 125 MCG TAB PO SCH (05:31)
[2022-02-12] MEDS: ACETAMINOPHEN TAB 325 MG TAB PO PRN (05:31)
[2022-02-12 07:18] LABS: Glucose,Whole Blood 188 mg/dL (70-110)
[2022-02-12] MEDS: carvediloL 12.5 MG TAB PO SCH ×2 (07:55→17:54)
[2022-02-12] MEDS: INSULIN ASPART (NovoLOG) 100 UNIT/ML VIAL SQ SCH ×4 (07:55→21:16)
[2022-02-12] MEDS: FERROUS SULFATE 325 MG TAB PO SCH ×2 (07:56→21:16)
[2022-02-12] MEDS: ASPIRIN 81 MG PO SCH (07:56)
[2022-02-12] MEDS: APIXABAN 2.5 MG TABLET PO SCH ×2 (07:56→21:15)
[2022-02-12] MEDS: DOCUSATE 100 MG CAP PO SCH (07:56)
[2022-02-12] MEDS: ISOSORBIDE MONONITRATE ER 60 MG TAB.ER.24H PO SCH (07:57)
[2022-02-12] MEDS: hydrALAZINE HCL 50 MG TAB PO SCH ×3 (07:57→21:16)
[2022-02-12] MEDS: FUROSEMIDE 40 MG TAB PO SCH ×2 (07:57→20:29)
[2022-02-12] MEDS: PANTOPRAZOLE 40 MG TABLET PO SCH ×2 (07:58)
[2022-02-12] MEDS: lisinopriL 20 MG TAB PO SCH (07:58)
[2022-02-12] MEDS: polyethylene glycoL 3350 17 GM POWD.PACK PO SCH (07:58)
[2022-02-12] MEDS: MAGNESIUM OXIDE 400 MG TAB PO SCH (07:58)
[2022-02-12] MEDS: VIT A,C & E-LUTEIN-MINERALS 1 EACH TAB PO SCH (07:59)
[2022-02-12] MEDS: POTASSIUM CHLORIDE ER 20 MEQ TAB.ER PO SCH (07:59)
[2022-02-12] MEDS: SERTRALINE 25 MG TAB PO SCH (07:59)
[2022-02-12] MEDS: INSULN ASP PRT/INSULIN ASPART 100 UNIT/ML 10 ML VIAL SQ SCH ×2 (08:00→18:23)
--- NOTE | 2022-02-12 10:04 | P.PN ---
Subjective Progress Note Date: 02/12/22 This is an 81-year-old female patient of Dr. Sheppard who presented with right lower back pain following fall. Patient reports that she turned the corner too quickly believes her sugar was low at the time. She denies loss of consciousness or injury to head patient reports she fell on her back. Patient d oes have past medical history of atrial fibrillation in which he maintained on eliquis, chest pain, heart failure, COPD, CVA, diabetes mellitus, hyperlipidemia, hypertension, renal disorder and thyroid disease. Patient reports that she had previous fusion surgery approximately 20 years ago. Lumbar spine x-ray showed previous fusion surgery. Mild new compression fractures of L3 and T12 compared to old exam. Sacrum and coccyx x-ray completed showing no evidence of sacral fracture. Patient's blood sugar upon arrival was elevated at 468. Creatinine 1.77 and bun 42 this does appear chronic for patient at this time patient is resting comfortably in bed. Patient complains of lower back pain. Patient denies any chest pain or shortness of breath. Patient denies nausea vomiting or diarrhea. Patient denies any urinary burning or frequency. Dr. Nur has been consulted for new compression fracture repeat labs ordered On 02/09/2022 patient was seen and examined on the medical floor she is alert and oriented 3 in no apparent distress there is no fever or chills no headache or dizziness no chest pain no shortness of breath no cough no nausea or vomiting no abdominal pain no diarrhea and no urinary symptoms, she was evaluated by cardiology, hydralazine was increased to 100 Mg 3 times a day due to elevated blood pressure. No other recommendation at this time patient will follow-up with Dr. Hernandez as outpatient, she was also evaluated by neurosurgery in regard to vertebral fracture recommendation is for brace, no other intervention recommended at this time. On 02/10/2022 patient is alert and oriented 3. Patient still complaining of back pain. Discharge planning in place to rehab. Current temp 98.4, heart rate 64, respiratory rate 18, blood pressure 134/63 with pulse ox of 96% on room air On 02/11/2022 patient was seen and examined on the medical floor she is alert and oriented 3 in no apparent distress she is complaining of severe back pain she is also complaining of left arm and shoulder pain, she is complaining of constipation and inability to stand and walk otherwise she denies any complaints there is no fever or chills no headache or dizziness no chest pain no shortness of breath no cough no nausea or vomiting no abdominal pain no diarrhea and no urinary symptoms On 02/12/2022 patient is alert and oriented 3. Shoulder x-ray completed showing negative for fracture. Discharge planning is in place to [facility]. At this time patient denies chest pain or shortness breath. Patient denies nausea vomiting or diarrhea. Patient denies any urinary burning or frequency Objective - Vital Signs Vital signs: Vital Signs Temp 97.8 F 02/12/22 04:39 Pulse 58 L 02/12/22 08:45 Resp 16 02/12/22 08:45 BP 137/56 02/12/22 08:01 Pulse Ox 96 02/12/22 04:39 FiO2 Intake & Output 02/11/22 02/12/22 02/12/22 18:59 06:59 18:59 Intake Total 240 100 Balance 240 100 Weight 90.4 kg Intake: Intake, IV Titration 100 Amount ACETAMINOPHEN IV (For NPO 100 ) 1,000 mg In Empty Bag 1 bag @ 400 mls/hr IVPB Q6H PRN Rx#:[id number] Oral 240 Other: Voiding Method Toilet Toilet Toilet # Voids 3 5 - Exam In general patient is alert and oriented 3 in no apparent distress Head normocephalic and atraumatic Neck supple no JVD no goiter Lungs clear to auscultation bilaterally no wheezing or crackles Heart irregular rhythm known atrial fibrillation Abdomen is soft nontender nondistended positive bowel sounds no hepatosplenomegaly Extremities no edema Neuro no gross focal neurological deficit - Labs CBC & Chem 7: 02/11/22 06:15 02/11/22 06:15 Labs: Abnormal Lab Results - Last 24 Hours (Table) 02/11/22 02/11/22 02/11/22 Range/Units 06:15 06:15 11:20 Hgb 11.3 L (12.0-15.0) g/dL MCHC 30.2 L (32.0-37.0) g/dL Immature Gran # 0.16 H (0.00-0.04) X 10*3/uL Monocytes # 1.68 H (0.20-1.00) X 10*3/uL Eosinophils # 0.64 H (0.04-0.35) X 10*3/uL BUN 37.2 H (9.0-27.0) mg/dL Creatinine 1.7 H (0.6-1.5) mg/dL Est GFR (CKD-EPI)AfAm 32.4 L (60.0-200.0) Est GFR (CKD-EPI)NonAf 28.0 L (60.0-200.0) BUN/Creatinine Ratio 21.88 H (12.00-20.00) Ratio Glucose 129 H (70-110) mg/dL POC Glucose (mg/dL) 219 H (70-110) mg/dL Calcium 8.6 L (8.7-10.3) mg/dL Total Bilirubin <0.15 L (0.30-1.20) mg/dL Total Protein 5.3 L (6.2-8.2) g/dL Albumin 3.2 L (3.8-4.9) g/dL Albumin/Globulin Ratio 1.52 L (1.60-3.17) g/dL 02/11/22 02/11/22 02/12/22 Range/Units 17:50 20:33 07:15 Hgb (12.0-15.0) g/dL MCHC (32.0-37.0) g/dL Immature Gran # (0.00-0.04) X 10*3/uL Monocytes # (0.20-1.00) X 10*3/uL Eosinophils # (0.04-0.35) X 10*3/uL BUN (9.0-27.0) mg/dL Creatinine (0.6-1.5) mg/dL Est GFR (CKD-EPI)AfAm (60.0-200.0) Est GFR (CKD-EPI)NonAf (60.0-200.0) BUN/Creatinine Ratio (12.00-20.00) Ratio Glucose (70-110) mg/dL POC Glucose (mg/dL) 208 H 209 H 188 H (70-110) mg/dL Calcium (8.7-10.3) mg/dL Total Bilirubin (0.30-1.20) mg/dL Total Protein (6.2-8.2) g/dL Albumin (3.8-4.9) g/dL Albumin/Globulin Ratio (1.60-3.17) g/dL Assessment and Plan Plan: 1. Status post fall with lumbar compression fracture 2. History of paroxysmal atrial fibrillation. Maintained on eliquis 3. History of chronic diastolic heart failure 4. History of COPD no exacerbation at this time 5. Diabetes mellitus type 2 6. Acute on Chronic kidney disease stage III 7. History of aortic stenosis with previous outpatient workup for TAVR 8. History of essential hypertension 9. History of hyperlipidemia At this time patient has been admitted Dr. Nur has been consulted for compression fracture Nephrology services following [facility] are following no further workup cardiology Repeat labs ordered PT OT and social work services consulted
[2022-02-12 10:58] LABS: Basophils # (A) 0.04 X 10*3/uL (0.00-0.10); Basophils % (A) 0.5 %; Eosinophils # (A) 0.62 X 10*3/uL (0.04-0.35); Eosinophils % (A) 7.4 %; HCT 38.9 % (37.2-46.3); HGB 11.5 g/dL (12.0-15.0); Immature Grans, Automated 1.8 %; Lymphocytes # (A) 1.51 X 10*3/uL (0.90-5.00); MCH 26.9 pg (27.0-32.0); MCHC 29.6 g/dL (32.0-37.0); MCV 90.9 fL (80.0-97.0); Mean Platelet Volume 11.2 fL (9.5-12.2); Monocytes # (A) 1.56 X 10*3/uL (0.20-1.00); Monocytes % (A) 18.6 %; NRBC Per 100 WBC 0 /100 WBCS (0.0-0.0); Neutrophils # (A) 4.51 X 10*3/uL (1.80-7.70); Neutrophils % (A) 53.7 %; Platelet Count 179 X 10*3/uL (140-440); RBC 4.28 X 10*6/uL (4.10-5.20); RDW 13.5 % (11.5-14.5); WBC 8.39 X 10*3/uL (4.50-10.00)
[2022-02-12 11:26] LABS: Glucose,Whole Blood 250 mg/dL (70-110)
--- NOTE | 2022-02-12 11:37 | P.PN ---
Subjective Progress Note Date: 02/12/22 Principal diagnosis: This is a 81-year-old female seen in consultation because of acute kidney injury and chronic kidney disease. She came in because of fall and a T12 fracture. Acute kidney injury is deemed to be from prerenal state from the fall and is improving. She is in pain. Chronic kidney disease, stage III secondary to diabetic nephropathy with 0.9 g of proteinuria and a baseline creatinine 1.5 Additionally she had atrial fibrillation severe aortic stenosis with mild coronary artery disease based on cardiac catheterization and echocardiogram. Vital signs are stable blood pressure 137/56 heart rate 58 temperature 97.8 Objective - Vital Signs Vital signs: Vital Signs Temp 97.8 F 02/12/22 04:39 Pulse 58 L 02/12/22 08:45 Resp 16 02/12/22 08:45 BP 137/56 02/12/22 08:01 Pulse Ox 96 02/12/22 04:39 FiO2 Intake & Output 02/11/22 02/12/22 02/12/22 18:59 06:59 18:59 Intake Total 240 100 Balance 240 100 Weight 90.4 kg Intake: Intake, IV Titration 100 Amount ACETAMINOPHEN IV (For NPO 100 ) 1,000 mg In Empty Bag 1 bag @ 400 mls/hr IVPB Q6H PRN Rx#:[id number] Oral 240 Other: Voiding Method Toilet Toilet Toilet # Voids 3 5 On examination is awake alert but seems to be forgetting that she had multiple stools although she claims she has severe constipation. This was clarified through the nursing staff. HEENT exam no JVP neck is supple no facial asymmetry Lungs are clear to auscultation good air entry bilaterally Heart sounds unremarkable Abdomen soft nontender protuberant Extremity exam was no edema Neurologically awake alert seems to be oriented but forgetful - Labs CBC & Chem 7: 02/12/22 06:36 02/11/22 06:15 Labs: Abnormal Lab Results - Last 24 Hours (Table) 02/11/22 02/11/22 02/11/22 Range/Units 06:15 06:15 17:50 Hgb 11.3 L (12.0-15.0) g/dL MCH (27.0-32.0) pg MCHC 30.2 L (32.0-37.0) g/dL Immature Gran # 0.16 H (0.00-0.04) X 10*3/uL Monocytes # 1.68 H (0.20-1.00) X 10*3/uL Eosinophils # 0.64 H (0.04-0.35) X 10*3/uL BUN 37.2 H (9.0-27.0) mg/dL Creatinine 1.7 H (0.6-1.5) mg/dL Est GFR (CKD-EPI)AfAm 32.4 L (60.0-200.0) Est GFR (CKD-EPI)NonAf 28.0 L (60.0-200.0) BUN/Creatinine Ratio 21.88 H (12.00-20.00) Ratio Glucose 129 H (70-110) mg/dL POC Glucose (mg/dL) 208 H (70-110) mg/dL Calcium 8.6 L (8.7-10.3) mg/dL Total Bilirubin <0.15 L (0.30-1.20) mg/dL Total Protein 5.3 L (6.2-8.2) g/dL Albumin 3.2 L (3.8-4.9) g/dL Albumin/Globulin Ratio 1.52 L (1.60-3.17) g/dL 02/11/22 02/12/22/ Range/Units 20:33 06:36 07:15 Hgb 11.5 L (12.0-15.0) g/dL MCH 26.9 L (27.0-32.0) pg MCHC 29.6 L (32.0-37.0) g/dL Immature Gran # 0.15 H (0.00-0.04) X 10*3/uL Monocytes # 1.56 H (0.20-1.00) X 10*3/uL Eosinophils # 0.62 H (0.04-0.35) X 10*3/uL BUN (9.0-27.0) mg/dL Creatinine (0.6-1.5) mg/dL Est GFR (CKD-EPI)AfAm (60.0-200.0) Est GFR (CKD-EPI)NonAf (60.0-200.0) BUN/Creatinine Ratio (12.00-20.00) Ratio Glucose (70-110) mg/dL POC Glucose (mg/dL) 209 H 188 H (70-110) mg/dL Calcium (8.7-10.3) mg/dL Total Bilirubin (0.30-1.20) mg/dL Total Protein (6.2-8.2) g/dL Albumin (3.8-4.9) g/dL Albumin/Globulin Ratio (1.60-3.17) g/dL 02/12/22 Range/Units 11:23 Hgb (12.0-15.0) g/dL MCH (27.0-32.0) pg MCHC (32.0-37.0) g/dL Immature Gran # (0.00-0.04) X 10*3/uL Monocytes # (0.20-1.00) X 10*3/uL Eosinophils # (0.04-0.35) X 10*3/uL BUN (9.0-27.0) mg/dL Creatinine (0.6-1.5) mg/dL Est GFR (CKD-EPI)AfAm (60.0-200.0) Est GFR (CKD-EPI)NonAf (60.0-200.0) BUN/Creatinine Ratio (12.00-20.00) Ratio Glucose (70-110) mg/dL POC Glucose (mg/dL) 250 H (70-110) mg/dL Calcium (8.7-10.3) mg/dL Total Bilirubin (0.30-1.20) mg/dL Total Protein (6.2-8.2) g/dL Albumin (3.8-4.9) g/dL Albumin/Globulin Ratio (1.60-3.17) g/dL Assessment and Plan Assessment: Impression 1. Acute kidney injuries, secondary to prerenal state after possible syncope and resultant fall and fracture of her T12. Creatinine stable at 1.7 2. Chronic kidney disease, stage III with diabetic nephropathy proteinuria of 0.9 g baseline creatinine 1.5 3. Atrial fibrillation. 4. Severe aortic stenosis with mild coronary artery disease based on cardiac catheterization and echocardiogram 5. Hemoglobin 11.2 > 7.5 at target - mildly anemic Recommendation 1. Continue medication that include Lasix 40 twice a day lisinopril 40 With a long hydralazine. 2. Avoid any nephrotoxic medications and dye studies. 3. Monitor blood pressure and vital signs. 4. As an outpatient and will consider starting SGOT 2 inhibitors if necessary
[2022-02-12 11:46] LABS: ALT 16 U/L (8-44); AST 20 U/L (13-35); Albumin 3.3 g/dL (3.8-4.9); Alkaline Phosphatase 96 U/L (41-126); BUN/Creat Ratio 21.09 Ratio (12.00-20.00); Blood Urea Nitrogen 32.9 mg/dL (9.0-27.0); Calcium 8.7 mg/dL (8.7-10.3); Carbon Dioxide 23.3 mmol/L (20.0-27.5); Chloride 103 mmol/L (96-109); Globulin 2.2 g/dL (1.6-3.3); Glucose 180 mg/dL (70-110); Non-African American GFR(CKD) 31.1 (60.0-200.0); Potassium 4.7 mmol/L (3.5-5.5); Sodium 138 mmol/L (135-145); Total Bilirubin <0.15 mg/dL (0.30-1.20); Total Protein 5.4 g/dL (6.2-8.2)
[2022-02-12 17:32] LABS: Glucose,Whole Blood 193 mg/dL (70-110)
[2022-02-12 20:33] LABS: Glucose,Whole Blood 299 mg/dL (70-110)
[2022-02-12] MEDS: ATORVASTATIN 80 MG TAB PO SCH (21:15)
[2022-02-12] MEDS: MELATONIN 5 MG TABLET PO SCH (21:16)
[2022-02-13] MEDS: LEVOTHYROXINE 125 MCG TAB PO SCH (04:15)
[2022-02-13] MEDS: ACETAMINOPHEN TAB 325 MG TAB PO PRN ×3 (04:15→23:56)
[2022-02-13] MEDS: busPIRone HCl 10 MG TAB PO SCH ×3 (04:15→23:51)
[2022-02-13 07:10] LABS: Glucose,Whole Blood 286 mg/dL (70-110)
[2022-02-13] MEDS: polyethylene glycoL 3350 17 GM POWD.PACK PO SCH (08:57)
[2022-02-13] MEDS: hydrALAZINE HCL 50 MG TAB PO SCH ×3 (08:57→23:56)
[2022-02-13] MEDS: DOCUSATE 100 MG CAP PO SCH (08:57)
[2022-02-13] MEDS: FERROUS SULFATE 325 MG TAB PO SCH ×2 (08:57→23:55)
[2022-02-13] MEDS: lisinopriL 20 MG TAB PO SCH (08:58)
[2022-02-13] MEDS: ASPIRIN 81 MG PO SCH (08:58)
[2022-02-13] MEDS: carvediloL 12.5 MG TAB PO SCH ×2 (08:58→17:44)
[2022-02-13] MEDS: APIXABAN 2.5 MG TABLET PO SCH ×2 (08:59→23:55)
[2022-02-13] MEDS: MAGNESIUM OXIDE 400 MG TAB PO SCH (08:59)
[2022-02-13] MEDS: ISOSORBIDE MONONITRATE ER 60 MG TAB.ER.24H PO SCH (08:59)
[2022-02-13] MEDS: VIT A,C & E-LUTEIN-MINERALS 1 EACH TAB PO SCH (08:59)
[2022-02-13] MEDS: FUROSEMIDE 40 MG TAB PO SCH ×2 (08:59→23:51)
[2022-02-13] MEDS: PANTOPRAZOLE 40 MG TABLET PO SCH ×2 (08:59→09:01)
[2022-02-13] MEDS: POTASSIUM CHLORIDE ER 20 MEQ TAB.ER PO SCH (08:59)
[2022-02-13] MEDS: SERTRALINE 25 MG TAB PO SCH (08:59)
[2022-02-13] MEDS: INSULIN ASPART (NovoLOG) 100 UNIT/ML VIAL SQ SCH ×4 (09:00→23:55)
[2022-02-13] MEDS: INSULN ASP PRT/INSULIN ASPART 100 UNIT/ML 10 ML VIAL SQ SCH ×3 (09:00→17:45)
[2022-02-13 09:21] LABS: Basophils # (A) 0.03 X 10*3/uL (0.00-0.10); Basophils % (A) 0.3 %; Eosinophils # (A) 0.63 X 10*3/uL (0.04-0.35); HCT 39.7 % (37.2-46.3); Immature Grans, Automated 1.9 %; Lymphocytes # (A) 1.57 X 10*3/uL (0.90-5.00); Lymphocytes % (A) 17.4 %; MCH 27.5 pg (27.0-32.0); MCHC 30.2 g/dL (32.0-37.0); MCV 90.8 fL (80.0-97.0); Mean Platelet Volume 11.4 fL (9.5-12.2); Monocytes # (A) 1.55 X 10*3/uL (0.20-1.00); Monocytes % (A) 17.2 %; NRBC Per 100 WBC 0 /100 WBCS (0.0-0.0); Neutrophils # (A) 5.05 X 10*3/uL (1.80-7.70); Neutrophils % (A) 56.2 %; Platelet Count 226 X 10*3/uL (140-440); RBC 4.37 X 10*6/uL (4.10-5.20); RDW 13.2 % (11.5-14.5)
--- NOTE | 2022-02-13 09:57 | P.PN ---
Subjective Patient is seen for follow-up for acute kidney injury on top of chronic kidney disease. Renal function has improved. Currently patient is maintained on Lasix 40 mg oral twice a day. Blood pressure is not low in fact it is on the higher side. Patient remains on BISI inhibitor's which we can continue. Objective - Vital Signs Vital signs: Vital Signs Temp 98.0 F 02/13/22 05:12 Pulse 50 L 02/13/22 05:12 Resp 14 02/13/22 05:12 BP 169/79 02/13/22 05:12 Pulse Ox 97 02/13/22 05:12 FiO2 Intake & Output 02/12/22 02/13/22 02/13/22 18:59 06:59 18:59 Intake Total 240 Output Total 600 Balance -360 Weight 90.4 kg 90.2 kg Intake: Oral 240 Output: Urine 600 Other: Voiding Method Toilet Toilet # Voids 1 7 1 # Bowel Movements 1 - Exam Awake, comfortable, not in any acute distress Examination of the heart S1 and S2 Examination lungs bilateral breath sounds are heard Abdomen is soft nontender Examination lower extremities shows no significant edema. ROLL [facility]MER exam grossly intact - Labs CBC & Chem 7: 02/13/22 05:46 02/12/22 06:36 Labs: Abnormal Lab Results - Last 24 Hours (Table) 02/12/22 02/12/22 02/12/22 Range/Units 06:36 06:36 11:23 Hgb 11.5 L (12.0-15.0) g/dL MCH 26.9 L (27.0-32.0) pg MCHC 29.6 L (32.0-37.0) g/dL Immature Gran # 0.15 H (0.00-0.04) X 10*3/uL Monocytes # 1.56 H (0.20-1.00) X 10*3/uL Eosinophils # 0.62 H (0.04-0.35) X 10*3/uL BUN 32.9 H (9.0-27.0) mg/dL Creatinine 1.6 H (0.6-1.5) mg/dL Est GFR (CKD-EPI)AfAm 36.0 L (60.0-200.0) Est GFR (CKD-EPI)NonAf 31.1 L (60.0-200.0) BUN/Creatinine Ratio 21.09 H (12.00-20.00) Ratio Glucose 180 H (70-110) mg/dL POC Glucose (mg/dL) 250 H (70-110) mg/dL Total Bilirubin <0.15 L (0.30-1.20) mg/dL Total Protein 5.4 L (6.2-8.2) g/dL Albumin 3.3 L (3.8-4.9) g/dL Albumin/Globulin Ratio 1.50 L (1.60-3.17) g/dL 02/12/22 02/12/22 02/13/22 Range/Units 17:30 20:30 05:46 Hgb (12.0-15.0) g/dL MCH (27.0-32.0) pg MCHC 30.2 L (32.0-37.0) g/dL Immature Gran # 0.17 H (0.00-0.04) X 10*3/uL Monocytes # 1.55 H (0.20-1.00) X 10*3/uL Eosinophils # 0.63 H (0.04-0.35) X 10*3/uL BUN (9.0-27.0) mg/dL Creatinine (0.6-1.5) mg/dL Est GFR (CKD-EPI)AfAm (60.0-200.0) Est GFR (CKD-EPI)NonAf (60.0-200.0) BUN/Creatinine Ratio (12.00-20.00) Ratio Glucose (70-110) mg/dL POC Glucose (mg/dL) 193 H 299 H (70-110) mg/dL Total Bilirubin (0.30-1.20) mg/dL Total Protein (6.2-8.2) g/dL Albumin (3.8-4.9) g/dL Albumin/Globulin Ratio (1.60-3.17) g/dL 02/13/22 Range/Units 06:58 Hgb (12.0-15.0) g/dL MCH (27.0-32.0) pg MCHC (32.0-37.0) g/dL Immature Gran # (0.00-0.04) X 10*3/uL Monocytes # (0.20-1.00) X 10*3/uL Eosinophils # (0.04-0.35) X 10*3/uL BUN (9.0-27.0) mg/dL Creatinine (0.6-1.5) mg/dL Est GFR (CKD-EPI)AfAm (60.0-200.0) Est GFR (CKD-EPI)NonAf (60.0-200.0) BUN/Creatinine Ratio (12.00-20.00) Ratio Glucose (70-110) mg/dL POC Glucose (mg/dL) 286 H (70-110) mg/dL Total Bilirubin (0.30-1.20) mg/dL Total Protein (6.2-8.2) g/dL Albumin (3.8-4.9) g/dL Albumin/Globulin Ratio (1.60-3.17) g/dL Assessment and Plan Assessment: 1. Acute kidney injury, prerenal associated with possible syncope at the time of admission 2. CK D stage III B secondary to diabetic nephropathy, baseline creatinine about 1.5 mg/dL 3. Chronic A. fib 4. Severe aortic stenosis Plan: Continue current medications including BISI inhibitor as an diuretics Patient can be discharged from nephrology standpoint and follow-up as outpatient
[2022-02-13 09:59] LABS: ALT 16 U/L (8-44); AST 16 U/L (13-35); African American GFR (CKD) 34.9 (60.0-200.0); Albumin 3.4 g/dL (3.8-4.9); Albumin/Globulin Ratio 1.55 (1.60-3.17); Alkaline Phosphatase 112 U/L (41-126); BUN/Creat Ratio 19.31 Ratio (12.00-20.00); Blood Urea Nitrogen 30.9 mg/dL (9.0-27.0); Calcium 8.8 mg/dL (8.7-10.3); Chloride 101 mmol/L (96-109); Globulin 2.2 g/dL (1.6-3.3); Glucose 290 mg/dL (70-110); Non-African American GFR(CKD) 30.1 (60.0-200.0); Potassium 4.6 mmol/L (3.5-5.5); Sodium 137 mmol/L (135-145); Total Bilirubin <0.15 mg/dL (0.30-1.20); Total Protein 5.6 g/dL (6.2-8.2)
[2022-02-13 11:55] LABS: Glucose,Whole Blood 374 mg/dL (70-110)
[2022-02-13 16:58] LABS: Glucose,Whole Blood 246 mg/dL (70-110)
[2022-02-13 19:31] LABS: Glucose,Whole Blood 248 mg/dL (70-110)
[2022-02-13] MEDS: ATORVASTATIN 80 MG TAB PO SCH (23:55)
[2022-02-13] MEDS: MELATONIN 5 MG TABLET PO SCH (23:56)
[2022-02-14] MEDS: LEVOTHYROXINE 125 MCG TAB PO SCH (04:15)
[2022-02-14 05:00] VITALS: RESP 18
[2022-02-14] MEDS: busPIRone HCl 10 MG TAB PO SCH ×3 (05:10→20:43)
[2022-02-14 06:56] LABS: Glucose,Whole Blood 212 mg/dL (70-110)
[2022-02-14] MEDS: INSULN ASP PRT/INSULIN ASPART 100 UNIT/ML 10 ML VIAL SQ SCH (09:08)
[2022-02-14] MEDS: INSULIN ASPART (NovoLOG) 100 UNIT/ML VIAL SQ SCH ×4 (09:08→20:37)
[2022-02-14] MEDS: PANTOPRAZOLE 40 MG TABLET PO SCH (09:09)
[2022-02-14] MEDS: FUROSEMIDE 40 MG TAB PO SCH ×2 (09:09→20:37)
[2022-02-14] MEDS: hydrALAZINE HCL 50 MG TAB PO SCH ×3 (09:09→20:36)
[2022-02-14] MEDS: DOCUSATE 100 MG CAP PO SCH (09:09)
[2022-02-14] MEDS: POTASSIUM CHLORIDE ER 20 MEQ TAB.ER PO SCH (09:09)
[2022-02-14] MEDS: ISOSORBIDE MONONITRATE ER 60 MG TAB.ER.24H PO SCH (09:09)
[2022-02-14] MEDS: lisinopriL 20 MG TAB PO SCH (09:09)
[2022-02-14] MEDS: VIT A,C & E-LUTEIN-MINERALS 1 EACH TAB PO SCH (09:09)
[2022-02-14] MEDS: ASPIRIN 81 MG PO SCH (09:09)
[2022-02-14] MEDS: APIXABAN 2.5 MG TABLET PO SCH ×2 (09:10→20:36)
[2022-02-14] MEDS: SERTRALINE 25 MG TAB PO SCH (09:10)
[2022-02-14] MEDS: polyethylene glycoL 3350 17 GM POWD.PACK PO SCH (09:10)
[2022-02-14] MEDS: MAGNESIUM OXIDE 400 MG TAB PO SCH (09:10)
[2022-02-14] MEDS: FERROUS SULFATE 325 MG TAB PO SCH ×2 (09:10→20:36)
[2022-02-14] MEDS: carvediloL 12.5 MG TAB PO SCH ×2 (09:12→16:59)
[2022-02-14 11:05] LABS: Basophils # (A) 0.03 X 10*3/uL (0.00-0.10); Basophils % (A) 0.4 %; Eosinophils # (A) 0.65 X 10*3/uL (0.04-0.35); Eosinophils % (A) 7.6 %; HCT 39.3 % (37.2-46.3); HGB 11.7 g/dL (12.0-15.0); Immature Grans, Automated 1.8 %; Lymphocytes # (A) 1.45 X 10*3/uL (0.90-5.00); MCH 26.7 pg (27.0-32.0); MCHC 29.8 g/dL (32.0-37.0); MCV 89.7 fL (80.0-97.0); Mean Platelet Volume 11.8 fL (9.5-12.2); Monocytes # (A) 1.59 X 10*3/uL (0.20-1.00); Monocytes % (A) 18.6 %; NRBC Per 100 WBC 0 /100 WBCS (0.0-0.0); Neutrophils # (A) 4.67 X 10*3/uL (1.80-7.70); Neutrophils % (A) 54.6 %; Platelet Count 213 X 10*3/uL (140-440); RBC 4.38 X 10*6/uL (4.10-5.20); RDW 13.4 % (11.5-14.5); WBC 8.54 X 10*3/uL (4.50-10.00)
[2022-02-14 11:20] LABS: ALT 15 U/L (8-44); AST 15 U/L (13-35); African American GFR (CKD) 37.7 (60.0-200.0); Albumin 3.4 g/dL (3.8-4.9); Albumin/Globulin Ratio 1.55 (1.60-3.17); Alkaline Phosphatase 107 U/L (41-126); BUN/Creat Ratio 22.53 Ratio (12.00-20.00); Blood Urea Nitrogen 33.8 mg/dL (9.0-27.0); Calcium 8.9 mg/dL (8.7-10.3); Chloride 102 mmol/L (96-109); Globulin 2.2 g/dL (1.6-3.3); Glucose 204 mg/dL (70-110); Non-African American GFR(CKD) 32.6 (60.0-200.0); Potassium 4.5 mmol/L (3.5-5.5); Sodium 140 mmol/L (135-145); Total Bilirubin <0.15 mg/dL (0.30-1.20); Total Protein 5.6 g/dL (6.2-8.2)
[2022-02-14 11:56] LABS: Glucose,Whole Blood 183 mg/dL (70-110)
--- NOTE | 2022-02-14 11:56 | P.PN ---
Subjective Patient is seen for follow-up for acute kidney injury on top of chronic kidney disease. Renal function has improved. Currently patient is maintained on Lasix 40 mg oral twice a day. Blood pressure is not low in fact it is on the higher side. Patient remains on BISI inhibitor's which we can continue. Complaining of back pain. No urinary symptoms. Objective - Vital Signs Vital signs: Vital Signs Temp 97.9 F 02/14/22 04:58 Pulse 56 L 02/14/22 09:00 Resp 18 02/14/22 04:58 BP 194/81 02/14/22 09:00 Pulse Ox 97 02/14/22 04:58 FiO2 Intake & Output 02/13/22 02/14/22 02/14/22 18:59 06:59 18:59 Intake Total 200 800 Balance 200 800 Weight 90.6 kg Intake: Oral 200 800 Other: Voiding Method Toilet Toilet Toilet # Voids 1 5 - Exam Awake, comfortable, not in any acute distress Examination of the heart S1 and S2 Examination lungs bilateral breath sounds are heard Abdomen is soft nontender Examination lower extremities shows no significant edema. RN RELIEF CHARGE exam grossly intact - Labs CBC & Chem 7: 02/14/22 06:43 02/14/22 06:43 Labs: Abnormal Lab Results - Last 24 Hours (Table) 02/13/22 02/13/22 02/13/22 Range/Units 11:54 16:55 19:30 Hgb (12.0-15.0) g/dL MCH (27.0-32.0) pg MCHC (32.0-37.0) g/dL Immature Gran # (0.00-0.04) X 10*3/uL Monocytes # (0.20-1.00) X 10*3/uL Eosinophils # (0.04-0.35) X 10*3/uL BUN (9.0-27.0) mg/dL Est GFR (CKD-EPI)AfAm (60.0-200.0) Est GFR (CKD-EPI)NonAf (60.0-200.0) BUN/Creatinine Ratio (12.00-20.00) Ratio Glucose (70-110) mg/dL POC Glucose (mg/dL) 374 H 246 H 248 H (70-110) mg/dL Total Bilirubin (0.30-1.20) mg/dL Total Protein (6.2-8.2) g/dL Albumin (3.8-4.9) g/dL Albumin/Globulin Ratio (1.60-3.17) g/dL 02/14/22 02/14/22 02/14/22 Range/Units 06:43 06:43 06:54 Hgb 11.7 L (12.0-15.0) g/dL MCH 26.7 L (27.0-32.0) pg MCHC 29.8 L (32.0-37.0) g/dL Immature Gran # 0.15 H (0.00-0.04) X 10*3/uL Monocytes # 1.59 H (0.20-1.00) X 10*3/uL Eosinophils # 0.65 H (0.04-0.35) X 10*3/uL BUN 33.8 H (9.0-27.0) mg/dL Est GFR (CKD-EPI)AfAm 37.7 L (60.0-200.0) Est GFR (CKD-EPI)NonAf 32.6 L (60.0-200.0) BUN/Creatinine Ratio 22.53 H (12.00-20.00) Ratio Glucose 204 H (70-110) mg/dL POC Glucose (mg/dL) 212 H (70-110) mg/dL Total Bilirubin <0.15 L (0.30-1.20) mg/dL Total Protein 5.6 L (6.2-8.2) g/dL Albumin 3.4 L (3.8-4.9) g/dL Albumin/Globulin Ratio 1.55 L (1.60-3.17) g/dL Assessment and Plan Assessment: 1. Acute kidney injury, prerenal associated with possible syncope at the time of admission. Status post IV fluids on initial admission. Currently maintained on oral Lasix. Renal function has been improving. 2. CK D stage III B secondary to diabetic nephropathy, baseline creatinine ab out 1.5 mg/dL 3. Chronic A. fib 4. Severe aortic stenosis Plan: Continue current medications including BISI inhibitor and diuretics Patient can be discharged from nephrology standpoint and follow-up as outpatient
[2022-02-14 16:22] VITALS: BMI 34.2
[2022-02-14 17:09] LABS: Glucose,Whole Blood 227 mg/dL (70-110)
--- NOTE | 2022-02-14 17:19 | P.PN ---
Subjective Progress Note Date: 02/13/22 This is an 81-year-old female patient of Dr. Sheppard who presented with right lower back pain following fall. Patient reports that she turned the corner too quickly believes her sugar was low at the time. She denies loss of consciousness or injury to head patient reports she fell on her back. Patient d oes have past medical history of atrial fibrillation in which he maintained on eliquis, chest pain, heart failure, COPD, CVA, diabetes mellitus, hyperlipidemia, hypertension, renal disorder and thyroid disease. Patient reports that she had previous fusion surgery approximately 20 years ago. Lumbar spine x-ray showed previous fusion surgery. Mild new compression fractures of L3 and T12 compared to old exam. Sacrum and coccyx x-ray completed showing no evidence of sacral fracture. Patient's blood sugar upon arrival was elevated at 468. Creatinine 1.77 and bun 42 this does appear chronic for patient at this time patient is resting comfortably in bed. Patient complains of lower back pain. Patient denies any chest pain or shortness of breath. Patient denies nausea vomiting or diarrhea. Patient denies any urinary burning or frequency. Dr. Nur has been consulted for new compression fracture repeat labs ordered On 02/09/2022 patient was seen and examined on the medical floor she is alert and oriented 3 in no apparent distress there is no fever or chills no headache or dizziness no chest pain no shortness of breath no cough no nausea or vomiting no abdominal pain no diarrhea and no urinary symptoms, she was evaluated by cardiology, hydralazine was increased to 100 Mg 3 times a day due to elevated blood pressure. No other recommendation at this time patient will follow-up with Dr. Hernandez as outpatient, she was also evaluated by neurosurgery in regard to vertebral fracture recommendation is for brace, no other intervention recommended at this time. On 02/10/2022 patient is alert and oriented 3. Patient still complaining of back pain. Discharge planning in place to rehab. Current temp 98.4, heart rate 64, respiratory rate 18, blood pressure 134/63 with pulse ox of 96% on room air On 02/11/2022 patient was seen and examined on the medical floor she is alert and oriented 3 in no apparent distress she is complaining of severe back pain she is also complaining of left arm and shoulder pain, she is complaining of constipation and inability to stand and walk otherwise she denies any complaints there is no fever or chills no headache or dizziness no chest pain no shortness of breath no cough no nausea or vomiting no abdominal pain no diarrhea and no urinary symptoms On 02/12/2022 patient is alert and oriented 3. Shoulder x-ray completed showing negative for fracture. Discharge planning is in place to [facility], [facility]. At this time patient denies chest pain or shortness breath. Patient denies nausea vomiting or diarrhea. Patient denies any urinary burning or frequency. On 02/13/2022 patient was seen and examined on the medical floor she is alert and oriented 3 in no apparent distress still complaining of severe back pain otherwise she denies any complaints at this time, she is able to get up from bed and sit on the chair next to the bed with the help of physical therapy, otherwise she has not been doing any activity, at this time are still working on admitting patient to subacute rehab, we are waiting for insurance prior authorization Objective - Vital Signs Vital signs: Vital Signs Temp 97.9 F 02/13/22 11:11 Pulse 50 L 02/13/22 11:11 Resp 16 02/13/22 11:11 BP 166/68 02/13/22 11:11 Pulse Ox 97 02/13/22 11:11 FiO2 Intake & Output 02/12/22 02/13/22 02/13/22 18:59 06:59 18:59 Intake Total 240 200 Output Total 600 Balance -360 200 Weight 90.4 kg 90.2 kg Intake: Oral 240 200 Output: Urine 600 Other: Voiding Method Toilet Toilet Toilet # Voids 1 7 1 # Bowel Movements 1 - Exam In general patient is alert and oriented 3 in no apparent distress Head normocephalic and atraumatic Neck supple no JVD no goiter Lungs clear to auscultation bilaterally no wheezing or crackles Heart irregular rhythm known atrial fibrillation Abdomen is soft nontender nondistended positive bowel sounds no hepatosplenomegaly Extremities no edema Neuro no gross focal neurological deficit - Labs CBC & Chem 7: 02/14/22 06:43 02/14/22 06:43 Labs: Abnormal Lab Results - Last 24 Hours (Table) 02/12/22 02/13/22 02/13/22 Range/Units 20:30 05:46 05:46 MCHC 30.2 L (32.0-37.0) g/dL Immature Gran # 0.17 H (0.00-0.04) X 10*3/uL Monocytes # 1.55 H (0.20-1.00) X 10*3/uL Eosinophils # 0.63 H (0.04-0.35) X 10*3/uL BUN 30.9 H (9.0-27.0) mg/dL Creatinine 1.6 H (0.6-1.5) mg/dL Est GFR (CKD-EPI)AfAm 34.9 L (60.0-200.0) Est GFR (CKD-EPI)NonAf 30.1 L (60.0-200.0) Glucose 290 H (70-110) mg/dL POC Glucose (mg/dL) 299 H (70-110) mg/dL Total Bilirubin <0.15 L (0.30-1.20) mg/dL Total Protein 5.6 L (6.2-8.2) g/dL Albumin 3.4 L (3.8-4.9) g/dL Albumin/Globulin Ratio 1.55 L (1.60-3.17) g/dL 02/13/22 02/13/22 02/13/22 Range/Units 06:58 11:54 16:55 MCHC (32.0-37.0) g/dL Immature Gran # (0.00-0.04) X 10*3/uL Monocytes # (0.20-1.00) X 10*3/uL Eosinophils # (0.04-0.35) X 10*3/uL BUN (9.0-27.0) mg/dL Creatinine (0.6-1.5) mg/dL Est GFR (CKD-EPI)AfAm (60.0-200.0) Est GFR (CKD-EPI)NonAf (60.0-200.0) Glucose (70-110) mg/dL POC Glucose (mg/dL) 286 H 374 H 246 H (70-110) mg/dL Total Bilirubin (0.30-1.20) mg/dL Total Protein (6.2-8.2) g/dL Albumin (3.8-4.9) g/dL Albumin/Globulin Ratio (1.60-3.17) g/dL Assessment and Plan Plan: 1. Status post fall with lumbar compression fracture 2. History of paroxysmal atrial fibrillation. Maintained on eliquis 3. History of chronic diastolic heart failure 4. History of COPD no exacerbation at this time 5. Diabetes mellitus type 2 6. Acute on Chronic kidney disease stage III 7. History of aortic stenosis with previous outpatient workup for TAVR 8. History of essential hypertension 9. History of hyperlipidemia At this time patient has been admitted Dr. Nur has been consulted for compression fracture Nephrology services following [facility] are following no further workup cardiology Repeat labs ordered PT OT and social work services consulted
--- NOTE | 2022-02-14 17:21 | P.PN ---
Subjective Progress Note Date: 02/14/22 This is an 81-year-old female patient of Dr. Sheppard who presented with right lower back pain following fall. Patient reports that she turned the corner too quickly believes her sugar was low at the time. She denies loss of consciousness or injury to head patient reports she fell on her back. Patient d oes have past medical history of atrial fibrillation in which he maintained on eliquis, chest pain, heart failure, COPD, CVA, diabetes mellitus, hyperlipidemia, hypertension, renal disorder and thyroid disease. Patient reports that she had previous fusion surgery approximately 20 years ago. Lumbar spine x-ray showed previous fusion surgery. Mild new compression fractures of L3 and T12 compared to old exam. Sacrum and coccyx x-ray completed showing no evidence of sacral fracture. Patient's blood sugar upon arrival was elevated at 468. Creatinine 1.77 and bun 42 this does appear chronic for patient at this time patient is resting comfortably in bed. Patient complains of lower back pain. Patient denies any chest pain or shortness of breath. Patient denies nausea vomiting or diarrhea. Patient denies any urinary burning or frequency. Dr. Nur has been consulted for new compression fracture repeat labs ordered On 02/09/2022 patient was seen and examined on the medical floor she is alert and oriented 3 in no apparent distress there is no fever or chills no headache or dizziness no chest pain no shortness of breath no cough no nausea or vomiting no abdominal pain no diarrhea and no urinary symptoms, she was evaluated by cardiology, hydralazine was increased to 100 Mg 3 times a day due to elevated blood pressure. No other recommendation at this time patient will follow-up with Dr. Hernandez as outpatient, she was also evaluated by neurosurgery in regard to vertebral fracture recommendation is for brace, no other intervention recommended at this time. On 02/10/2022 patient is alert and oriented 3. Patient still complaining of back pain. Discharge planning in place to rehab. Current temp 98.4, heart rate 64, respiratory rate 18, blood pressure 134/63 with pulse ox of 96% on room air On 02/11/2022 patient was seen and examined on the medical floor she is alert and oriented 3 in no apparent distress she is complaining of severe back pain she is also complaining of left arm and shoulder pain, she is complaining of constipation and inability to stand and walk otherwise she denies any complaints there is no fever or chills no headache or dizziness no chest pain no shortness of breath no cough no nausea or vomiting no abdominal pain no diarrhea and no urinary symptoms On 02/12/2022 patient is alert and oriented 3. Shoulder x-ray completed showing negative for fracture. Discharge planning is in place to [facility]. At this time patient denies chest pain or shortness breath. Patient denies nausea vomiting or diarrhea. Patient denies any urinary burning or frequency. On 02/13/2022 patient was seen and examined on the medical floor she is alert and oriented 3 in no apparent distress still complaining of severe back pain otherwise she denies any complaints at this time, she is able to get up from bed and sit on the chair next to the bed with the help of physical therapy, otherwise she has not been doing any activity, at this time are still working on admitting patient to subacute rehab, we are waiting for insurance prior authorization On 02/14/2022 patient was examined on the medical floor, she is alert and oriented in no distress, patient is complaining of low back pain, otherwise she denies any complaints, she is still having significant gait disturbance, and is only able to get up from bed to the chair with the help of physical therapy 2 person, at this time we are awaiting insurance prior authorization for transfer to a rehab unit Objective - Vital Signs Vital signs: Vital Signs Temp 97.8 F 02/14/22 12:35 Pulse 54 L 02/14/22 12:35 Resp 18 02/14/22 12:35 BP 138/67 02/14/22 12:35 Pulse Ox 96 02/14/22 12:35 FiO2 Intake & Output 02/13/22 02/14/22 02/14/22 18:59 06:59 18:59 Intake Total 200 800 Balance 200 800 Weight 90.6 kg 90.6 kg Intake: Oral 200 800 Other: Voiding Method Toilet Toilet Toilet # Voids 1 5 3 - Exam In general patient is alert and oriented 3 in no apparent distress Head normocephalic and atraumatic Neck supple no JVD no goiter Lungs clear to auscultation bilaterally no wheezing or crackles Heart irregular rhythm known atrial fibrillation Abdomen is soft nontender nondistended positive bowel sounds no hepatosplenomegaly Extremities no edema Neuro no gross focal neurological deficit - Labs CBC & Chem 7: 02/14/22 06:43 02/14/22 06:43 Labs: Abnormal Lab Results - Last 24 Hours (Table) 02/13/22 02/14/22 02/14/22 Range/Units 19:30 06:43 06:43 Hgb 11.7 L (12.0-15.0) g/dL MCH 26.7 L (27.0-32.0) pg MCHC 29.8 L (32.0-37.0) g/dL Immature Gran # 0.15 H (0.00-0.04) X 10*3/uL Monocytes # 1.59 H (0.20-1.00) X 10*3/uL Eosinophils # 0.65 H (0.04-0.35) X 10*3/uL BUN 33.8 H (9.0-27.0) mg/dL Est GFR (CKD-EPI)AfAm 37.7 L (60.0-200.0) Est GFR (CKD-EPI)NonAf 32.6 L (60.0-200.0) BUN/Creatinine Ratio 22.53 H (12.00-20.00) Ratio Glucose 204 H (70-110) mg/dL POC Glucose (mg/dL) 248 H (70-110) mg/dL Total Bilirubin <0.15 L (0.30-1.20) mg/dL Total Protein 5.6 L (6.2-8.2) g/dL Albumin 3.4 L (3.8-4.9) g/dL Albumin/Globulin Ratio 1.55 L (1.60-3.17) g/dL 02/14/22 02/14/22 02/14/22 Range/Units 06:54 11:54 17:08 Hgb (12.0-15.0) g/dL MCH (27.0-32.0) pg MCHC (32.0-37.0) g/dL Immature Gran # (0.00-0.04) X 10*3/uL Monocytes # (0.20-1.00) X 10*3/uL Eosinophils # (0.04-0.35) X 10*3/uL BUN (9.0-27.0) mg/dL Est GFR (CKD-EPI)AfAm (60.0-200.0) Est GFR (CKD-EPI)NonAf (60.0-200.0) BUN/Creatinine Ratio (12.00-20.00) Ratio Glucose (70-110) mg/dL POC Glucose (mg/dL) 212 H 183 H 227 H (70-110) mg/dL Total Bilirubin (0.30-1.20) mg/dL Total Protein (6.2-8.2) g/dL Albumin (3.8-4.9) g/dL Albumin/Globulin Ratio (1.60-3.17) g/dL Assessment and Plan Assessment: 1. Status post fall with lumbar compression fracture 2. History of paroxysmal atrial fibrillation. Maintained on eliquis 3. History of chronic diastolic heart failure 4. History of COPD no exacerbation at this time 5. Diabetes mellitus type 2 6. Chronic kidney disease stage III 7. History of aortic stenosis with previous outpatient workup for TAVR 8. History of essential hypertension 9. History of hyperlipidemia At this time patient has been admitted Dr. Nur has been consulted for compression fracture- TLSO brace orders No further workup cardiology Discharge planning in place for rehab Repeat labs ordered PT OT and social work services consulted
[2022-02-14 19:34] VITALS: TEMP 98.2
[2022-02-14 20:06] LABS: Glucose,Whole Blood 222 mg/dL (70-110)
[2022-02-14] MEDS: ATORVASTATIN 80 MG TAB PO SCH (20:36)
[2022-02-14] MEDS: MELATONIN 5 MG TABLET PO SCH (20:36)
[2022-02-14] MEDS: ACETAMINOPHEN TAB 325 MG TAB PO PRN (20:36)
[2022-02-15] MEDS: ACETAMINOPHEN TAB 325 MG TAB PO PRN (01:48)
[2022-02-15] MEDS: busPIRone HCl 10 MG TAB PO SCH ×2 (05:19→14:03)
[2022-02-15] MEDS: LEVOTHYROXINE 125 MCG TAB PO SCH (05:19)
[2022-02-15 07:15] LABS: Glucose,Whole Blood 289 mg/dL (70-110)
[2022-02-15] MEDS: polyethylene glycoL 3350 17 GM POWD.PACK PO SCH (08:59)
[2022-02-15] MEDS: INSULN ASP PRT/INSULIN ASPART 100 UNIT/ML 10 ML VIAL SQ SCH (09:00)
[2022-02-15] MEDS: INSULIN ASPART (NovoLOG) 100 UNIT/ML VIAL SQ SCH ×2 (09:00→13:14)
[2022-02-15] MEDS: PANTOPRAZOLE 40 MG TABLET PO SCH ×2 (09:02→10:42)
[2022-02-15] MEDS: APIXABAN 2.5 MG TABLET PO SCH (09:02)
[2022-02-15] MEDS: MAGNESIUM OXIDE 400 MG TAB PO SCH (09:02)
[2022-02-15] MEDS: VIT A,C & E-LUTEIN-MINERALS 1 EACH TAB PO SCH (09:02)
[2022-02-15] MEDS: carvediloL 12.5 MG TAB PO SCH (09:02)
[2022-02-15] MEDS: lisinopriL 20 MG TAB PO SCH (09:02)
[2022-02-15] MEDS: ASPIRIN 81 MG PO SCH (09:02)
[2022-02-15] MEDS: FUROSEMIDE 40 MG TAB PO SCH (09:02)
[2022-02-15] MEDS: hydrALAZINE HCL 50 MG TAB PO SCH (09:02)
[2022-02-15] MEDS: FERROUS SULFATE 325 MG TAB PO SCH (09:02)
[2022-02-15] MEDS: DOCUSATE 100 MG CAP PO SCH (09:02)
[2022-02-15] MEDS: SERTRALINE 25 MG TAB PO SCH (09:03)
[2022-02-15] MEDS: ISOSORBIDE MONONITRATE ER 60 MG TAB.ER.24H PO SCH (09:03)
[2022-02-15] MEDS: POTASSIUM CHLORIDE ER 20 MEQ TAB.ER PO SCH (09:03)
--- NOTE | 2022-02-15 10:37 | P.DS ---
Providers Date of admission: 02/07/22 22:16 Expected date of discharge: 02/15/22 Attending physician: Meka Randhawa Consults: 02/07/22 22:16 Consult Physician Routine Consulting Provider: Mary Lou Nur Consult Reason/Comments: compression fracture of lumbar and thoracic spine, possible kyphoplasty? Do you want consulting provider notified?: Yes 02/08/22 10:42 Consult Physician Routine Consulting Provider: Juancho Culp Consult Reason/Comments: possible syncopal episode Do you want consulting provider notified?: Yes 02/10/22 10:31 Consult Physician Routine Consulting Provider: Yanelis Cunningham Consult Reason/Comments: acute on chronic Kidney disease Do you want consulting provider notified?: Yes Primary care physician: Marianela Sheppard Hospital Course: Diagnoses on discharge: 1. Status post fall with lumbar compression fracture 2. History of paroxysmal atrial fibrillation. Maintained on eliquis 3. History of chronic diastolic heart failure 4. History of COPD no exacerbation at this time 5. Diabetes mellitus type 2 6. Chronic kidney disease stage III 7. History of aortic stenosis with previous outpatient workup for TAVR 8. History of essential hypertension 9. History of hyperlipidemia Hospital course: This is an 81-year-old female patient of Dr. Sheppard who presented with right lower back pain following fall. Patient reports that she turned the corner too quickly believes her sugar was low at the time. She denies loss of consciousn ess or injury to head patient reports she fell on her back. Patient does have past medical history of atrial fibrillation in which he maintained on eliquis, chest pain, heart failure, COPD, CVA, diabetes mellitus, hyperlipidemia, hypertension, renal disorder and thyroid disease. Patient reports that she had previous fusion surgery approximately 20 years ago. Lumbar spine x-ray showed previous fusion surgery. Mild new compression fractures of L3 and T12 compared to old exam. Sacrum and coccyx x-ray completed showing no evidence of sacral fracture. Patient's blood sugar upon arrival was elevated at 468. Creatinine 1.77 and bun 42 this does appear chronic for patient at this time patient is resting comfortably in bed. Patient complains of lower back pain. Patient denies any chest pain or shortness of breath. Patient denies nausea vomiting or diarrhea. Patient denies any urinary burning or frequency. Dr. Nur has been consulted for new compression fracture repeat labs ordered On 02/09/2022 patient was seen and examined on the medical floor she is alert and oriented 3 in no apparent distress there is no fever or chills no headache or dizziness no chest pain no shortness of breath no cough no nausea or vomiting no abdominal pain no diarrhea and no urinary symptoms, she was evaluated by cardiology, hydralazine was increased to 100 Mg 3 times a day due to elevated blood pressure. No other recommendation at this time patient will follow-up with Dr. Hernandez as outpatient, she was also evaluated by neurosurgery in regard to vertebral fracture recommendation is for brace, no other intervention recommended at this time. On 02/10/2022 patient is alert and oriented 3. Patient still complaining of back pain. Discharge planning in place to rehab. Current temp 98.4, heart rate 64, respiratory rate 18, blood pressure 134/63 with pulse ox of 96% on room air On 02/11/2022 patient was seen and examined on the medical floor she is alert and oriented 3 in no apparent distress she is complaining of severe back pain she is also complaining of left arm and shoulder pain, she is complaining of constipation and inability to stand and walk otherwise she denies any complaints there is no fever or chills no headache or dizziness no chest pain no shortness of breath no cough no nausea or vomiting no abdominal pain no diarrhea and no urinary symptoms On 02/12/2022 patient is alert and oriented 3. Shoulder x-ray completed showing negative for fracture. Discharge planning is in place to [facility] BEDS AT [facility]. At this time patient denies chest pain or shortness breath. Patient denies nausea vomiting or diarrhea. Patient denies any urinary burning or frequency. On 02/13/2022 patient was seen and examined on the medical floor she is alert and oriented 3 in no apparent distress still complaining of severe back pain otherwise she denies any complaints at this time, she is able to get up from bed and sit on the chair next to the bed with the help of physical therapy, other reich she has not been doing any activity, at this time are still working on admitting patient to subacute rehab, we are waiting for insurance prior authorization On 02/14/2022 patient was examined on the medical floor, she is alert and oriented in no distress, patient is complaining of low back pain, otherwise she denies any complaints, she is still having significant gait disturbance, and is only able to get up from bed to the chair with the help of physical therapy 2 person, at this time we are awaiting insurance prior authorization for transfer to a rehab unit On 02/15/2022 patient was seen and examined on the medical floor she is alert and oriented 3 she is still complaining of back pain she is still having significant difficulty with her gait, otherwise she denies any complaints there is no fever or chills no headache or dizziness no chest pain no shortness of breath no cough no nausea or vomiting no abdominal pain no diarrhea and no urinary symptoms. At this time peer to peer review was done with [employer], patient was approved for correction stay for rehab. She will be transferred to correction today Patient Condition at Discharge: Fair Plan - Discharge Summary Discharge Rx Participant: No New Discharge Prescriptions: New hydrALAZINE HCL [Apresoline] 100 mg PO TID tab Pantoprazole [Protonix] 40 mg PO AC-BRKFST tab HYDROcodone/APAP 5-325MG [[place] 5-325] 1 each PO Q4HR PRN tab PRN Reason: Moderate Pain Continue Atorvastatin [Lipitor] 80 mg PO HS@2100 Sertraline [Zoloft] 25 mg PO DAILY@0900 Albuterol Nebulized [Ventolin Nebulized] 2.5 mg INHALATION RT-QID PRN PRN Reason: Shortness Of Breath Isosorbide Mononitrate ER [Imdur] 60 mg PO DAILY@0900 Multivit-Min/Iron/Folic/Lutein [Centrum Silver Women Tablet] 1 tab PO DAILY@0900 Melatonin [Melatonin ER] 10 mg PO HS@2100 Magnesium Oxide [Mag-Ox] 400 mg PO DAILY@0900 Aspirin [Adult Low Dose Aspirin EC] 81 mg PO DAILY@0900 Apixaban [Eliquis] 2.5 mg PO BID@0900,2100 Ferrous Sulfate [Feosol] 325 mg PO BID@0900,2100 #60 tab Furosemide [Lasix] 40 mg PO BID #60 tab lisinopriL 40 mg PO DAILY Insuln Asp Prt/Insulin Aspart [NovoLOG MIX 70-30 VIAL] 30 unit SQ AC-BRKFST 30 Days #5 each Potassium Chloride ER [K-Dur 20] 20 meq PO DAILY@0900 Artificial Tears-Hypromellose [Artificial Tear Drops] 1 drop BOTH EYES TID PRN PRN Reason: Dry Eye(S) Docusate [Colace] 100 mg PO DAILY@0900 Omeprazole 40 mg PO DAILY@0900 polyethylene glycoL 3350 [Miralax] 17 gm PO DAILY@0900 Levothyroxine Sodium [Synthroid] 125 mcg PO DAILY@0600 busPIRone HCl [Buspar] 10 mg PO Q8H #90 tab carvediloL [Coreg*] 12.5 mg PO BID-W/MEALS 30 Days #60 tab Insuln Asp Prt/Insulin Aspart [NovoLOG MIX 70-30 VIAL] 20 unit SQ AC-SUPPER 30 Days #5 each Acetaminophen Tab [Tylenol] 650 mg PO Q4H PRN #60 tab PRN Reason: Pain Discontinued hydrALAZINE HCL [Apresoline] 50 mg PO TID INSULIN ASPART (NovoLOG) [NovoLOG (formulary)] 3 unit SQ ACHS 30 Days #4 each hydrALAZINE HCL [Apresoline] 25 mg PO TID Discharge Medication List Atorvastatin [Lipitor] 80 mg PO HS@209906/30/18 [History] Potassium Chloride ER [K-Dur 20] 20 meq PO DAILY@89908/06/21 [History] Sertraline [Zoloft] 25 mg PO DAILY@89908/30/21 [History] Albuterol Nebulized [Ventolin Nebulized] 2.5 mg INHALATION RT-QID PRN 09/24/21 [History] Artificial Tears-Hypromellose [Artificial Tear Drops] 1 drop BOTH EYES TID PRN 09/24/21 [History] Docusate [Colace] 100 mg PO DAILY@89909/24/21 [History] Isosorbide Mononitrate ER [Imdur] 60 mg PO DAILY@89909/24/21 [History] Multivit-Min/Iron/Folic/Lutein [Centrum Silver Women Tablet] 1 tab PO DAILY@89909/24/21 [History] Apixaban [Eliquis] 2.5 mg PO BID@0900,209912/01/21 [History] Aspirin [Adult Low Dose Aspirin EC] 81 mg PO DAILY@0912/01/21 [History] Levothyroxine Sodium [Synthroid] 125 mcg PO DAILY@0612/01/21 [History] Magnesium Oxide [Mag-Ox] 400 mg PO DAILY@0900 12/01/21 [History] Melatonin [Melatonin ER] 10 mg PO HS@2100 12/01/21 [History] Omeprazole 40 mg PO DAILY@0900 12/01/21 [History] polyethylene glycoL 3350 [Miralax] 17 gm PO DAILY@0900 12/01/21 [History] Ferrous Sulfate [Feosol] 325 mg PO BID@0900,2100 #60 tab 12/02/21 [Rx] Furosemide [Lasix] 40 mg PO BID #60 tab 12/02/21 [Rx] busPIRone HCl [Buspar] 10 mg PO Q8H #90 tab 12/02/21 [Rx] lisinopriL 40 mg PO DAILY 12/19/21 [History] Acetaminophen Tab [Tylenol] 650 mg PO Q4H PRN #60 tab 12/21/21 [Rx] Insuln Asp Prt/Insulin Aspart [NovoLOG MIX 70-30 VIAL] 20 unit SQ AC-SUPPER 30 Days #5 each 12/21/21 [Rx] Insuln Asp Prt/Insulin Aspart [NovoLOG MIX 70-30 VIAL] 30 unit SQ AC-BRKFST 30 Days #5 each 12/21/21 [Rx] carvediloL [Coreg*] 12.5 mg PO BID-W/MEALS 30 Days #60 tab 12/21/21 [Rx] HYDROcodone/APAP 5-325MG [[place] 5-325] 1 each PO Q4HR PRN tab 02/15/22 [Rx] Pantoprazole [Protonix] 40 mg PO AC-BRKFST tab 02/15/22 [Rx] hydrALAZINE HCL [Apresoline] 100 mg PO TID tab 02/15/22 [Rx] Follow up Appointment(s)/Referral(s): Marianela Sheppard MD [Primary Care Provider] - 1-2 days Gilmer Monahan PAC [PHYSICIAN VIDEO TAPE TRANSFERRER] - 2 Weeks (Patient may follow-up with Gilmer Monahan PA-C or Dr. John Nur at [facility] in 2-3 weeks following discharge. ) Activity/Diet/Wound Care/Special Instructions: 1. Patient may wear Spinomed TLSO brace for comfort and support while sitting upright at greater than 45, while working with therapy, and while ambulating; patient does not have to wear the brace while lying in bed or bathing 2. Patient should avoid excessive bending, twisting, and lifting; no lifting greater than 10 pounds
[2022-02-15 10:48] VITALS: BP 163/75; PULSE 62
[2022-02-15 11:32] LABS: Glucose,Whole Blood 386 mg/dL (70-110)
--- NOTE | 2022-02-15 20:49 | PN ---
PROGRESS NOTE Patient is seen for followup for acute kidney injury on top of chronic kidney disease. Renal function has further improved. Patient denies any significant complaints. Her creatinine was 1.5 yesterday. There are plans for discharge today. On examination today, blood pressure 125/61, heart rate 52 per minute. Patient is afebrile. Examination shows patient is euvolemic with no evidence of edema in bilateral lower extremities. Labs show sodium 140, potassium 4.5, BUN 33.8, serum creatinine 1.5 on 02/14/2022. ASSESSMENT: 1. Acute kidney injury, currently improved, mostly associated with syncope at the time of admission. Patient is maintained on oral Lasix now. 2. Chronic kidney disease, stage 3B, secondary to diabetic nephropathy with baseline creatinine 1.5 mg/dL. 3. Chronic atrial fibrillation. 4. Severe aortic stenosis. PLAN: Follow up as outpatient in 1 to 2 weeks. Patient is stable for discharge from nephrology standpoint. MMODL / IJN: [id number] /
== END 2022-02-15 15:29 | DRG 552 ==
LOC: EC 15:15 → 3SCARD 22:16 → 5NMEDONC 02-08 14:44
PROVIDERS: ADMIT Internal Medicine; ATTEND Internal Medicine
DX: S22.088A Other fracture of T11-T12 vertebra, initial encounter for closed fracture (principal); S32.038A Other fracture of third lumbar vertebra, initial encounter for closed fracture; N17.9 Acute kidney failure, unspecified; I50.32 Chronic diastolic (congestive) heart failure; E87.1 Hypo-osmolality and hyponatremia; I13.0 Hypertensive heart and chronic kidney disease with heart failure and stage 1 through stage 4 chronic kidney disease, or unspecified chronic kidney disease; N18.32 Chronic kidney disease, stage 3b; I48.0 Paroxysmal atrial fibrillation; J44.9 Chronic obstructive pulmonary disease, unspecified; S30.0XXA Contusion of lower back and pelvis, initial encounter; W01.0XXA Fall on same level from slipping, tripping and stumbling without subsequent striking against object, initial encounter; Y93.01 Activity, walking, marching and hiking; Y92.003 Bedroom of unspecified non-institutional (private) residence as the place of occurrence of the external cause; E03.9 Hypothyroidism, unspecified; D63.1 Anemia in chronic kidney disease; E11.22 Type 2 diabetes mellitus with diabetic chronic kidney disease; E78.5 Hyperlipidemia, unspecified; E87.8 Other disorders of electrolyte and fluid balance, not elsewhere classified; F32.A Depression, unspecified; G47.33 Obstructive sleep apnea (adult) (pediatric); I08.3 Combined rheumatic disorders of mitral, aortic and tricuspid valves; I25.10 Atherosclerotic heart disease of native coronary artery without angina pectoris; I27.20 Pulmonary hypertension, unspecified; Z79.01 Long term (current) use of anticoagulants; Z79.4 Long term (current) use of insulin; Z79.82 Long term (current) use of aspirin; Z79.890 Hormone replacement therapy; Z79.899 Other long term (current) drug therapy; Z80.0 Family history of malignant neoplasm of digestive organs; Z80.6 Family history of leukemia; Z82.49 Family history of ischemic heart disease and other diseases of the circulatory system; Z85.828 Personal history of other malignant neoplasm of skin; Z86.73 Personal history of transient ischemic attack (TIA), and cerebral infarction without residual deficits; Z87.01 Personal history of pneumonia (recurrent); Z91.81 History of falling; Z98.1 Arthrodesis status
CPT/HCPCS: 36415; 72100; 72220; 80048; 80053; 85025; 93005; 93306; 94640; 96361; 96372; 96374; 96376; 99285

== ENCOUNTER 2022-03-02 16:25 | Emergency (ER) | payer MEDICARE ==
[2022-03-02] MEDS ORDERED: SODIUM CHLORIDE 0.9% 1,000 ML IV STA (18:09)
[2022-03-02 18:10] VITALS: RESP 16
--- NOTE | 2022-03-02 18:12 | ED ---
General Adult HPI - General Chief complaint: Recheck/Abnormal Lab/Rx Stated complaint: High Glucose Time Seen by Provider: 03/02/22 18:05 Source: patient, RN notes reviewed Mode of arrival: EMS Limitations: no limitations - History of Present Illness Initial comments: Patient sent by ambulance for a blood sugar in excess of 600. Patient does have complaints of back pain ongoing since several months ago. Patient states she does have some vertebral fractures in the lumbar area. Patient does admit to eating an increased amount of bread-containing products at home. Increased thirst, No headache, no fever or chills, no changes in vision or hearing, no sore throat or difficulty with speech, no neck pain, no chest pain or shortness of breath, no abdominal pain, no nausea or vomiting, no changes in urination or bowel movements, no numbness or tingling, no extremity pain, no skin rashes or lesions. - Related Data Home Medications Medication Instructions Recorded Confirmed Atorvastatin [Lipitor] 80 mg PO HS 06/30/18 03/02/22 Potassium Chloride ER [K-Dur 20] 20 meq PO DAILY 08/06/21 03/02/22 Sertraline [Zoloft] 25 mg PO DAILY 08/30/21 03/02/22 Artificial Tears-Hypromellose 1 drop BOTH EYES TID PRN 09/24/21 03/02/22 [Artificial Tear Drops] Docusate [Colace] 100 mg PO DAILY 09/24/21 03/02/22 Isosorbide Mononitrate ER [Imdur] 60 mg PO DAILY 09/24/21 03/02/22 Multivit-Min/Iron/Folic/Lutein 1 tab PO DAILY 09/24/21 03/02/22 [Centrum Silver Women Tablet] Apixaban [Eliquis] 2.5 mg PO BID@0700,1600 12/01/21 03/02/22 Aspirin [Adult Low Dose Aspirin EC] 81 mg PO DAILY 12/01/21 03/02/22 Levothyroxine Sodium [Synthroid] 125 mcg PO DAILY 12/01/21 03/02/22 Magnesium Oxide [Mag-Ox] 400 mg PO DAILY 12/01/21 03/02/22 Melatonin [Melatonin ER] 10 mg PO HS 12/01/21 03/02/22 polyethylene glycoL 3350 [Miralax] 17 gm PO DAILY 12/01/21 03/02/22 lisinopriL 40 mg PO DAILY 12/19/21 03/02/22 Ferrous Sulfate [Feosol] 325 mg PO BID 03/02/22 03/02/22 Previous Rx's Medication Instructions Recorded busPIRone HCl [Buspar] 10 mg PO Q8H #90 tab 12/02/21 Acetaminophen Tab [Tylenol] 650 mg PO Q4H PRN #60 tab 12/21/21 Insuln Asp Prt/Insulin Aspart 20 unit SQ AC-SUPPER 30 Days #5 12/21/21 [NovoLOG MIX 70-30 VIAL] each Insuln Asp Prt/Insulin Aspart 30 unit SQ AC-BRKFST 30 Days #5 12/21/21 [NovoLOG MIX 70-30 VIAL] each carvediloL [Coreg*] 12.5 mg PO BID-W/MEALS 30 Days #60 12/21/21 tab hydrALAZINE HCL [Apresoline] 100 mg PO TID tab 02/15/22 Allergies Allergy/AdvReac Type Severity Reaction Status Date / Time azithromycin Allergy Rash/Hives Verified 03/02/22 21:59 [From Zithromax Z-Jeanmarie] methylprednisolone Allergy Rash/Hives Verified 03/02/22 21:59 [From Medrol] sulfamethoxazole Allergy Rash/Hives Verified 03/02/22 21:59 [From Bactrim] trimethoprim [From Bactrim] Allergy Rash/Hives Verified 03/02/22 21:59 hydrochlorothiazide AdvReac lost Verified 03/02/22 21:59 balance and fell hydrocodone AdvReac Hallucinati Verified 03/02/22 22:04 ons Review of Systems ROS Statement: Those systems with pertinent positive or pertinent negative responses have been documented in the HPI. ROS Other: All systems not noted in ROS Statement are negative. Past Medical History Past Medical History: Atrial Fibrillation, Cancer, Chest Pain / Angina, Heart Failure, COPD, CVA/TIA, Diabetes Mellitus, Hyperlipidemia, Hypertension, Osteoarthritis (OA), Pneumonia, Renal Disease, Sleep Apnea/CPAP/BIPAP, Syncope, Thyroid Disorder Additional Past Medical History / Comment(s): Stage III Kidney Disease, hx Pneumonia with Sepsis, no CPAP use (family states she hasn't been out of the hospital long enough to get a CPAP machine), Vitamin D Deficiency, chronic low back pain, frequent constipation, hx skin cancer, neuropathy History of Any Multi-Drug Resistant Organisms: None Reported Past Surgical History: Adenoidectomy, Back Surgery, Bariatric Surgery, Cholecystectomy, Heart Catheterization, Hysterectomy, Tonsillectomy Additional Past Surgical History / Comment(s): Cardiac caths , lap band placed/since removed, low back surgery, L carpal tunnel release X2, skin cancer removal, colonoscopies, bilateral cataract removals/lens implants. Past Anesthesia/Blood Transfusion Reactions: Previous Problems w/ Anesthesia Additional Past Anesthesia/Blood Transfusion Reaction / Comment(s): "Had too much anesthesia in 2007 for lap band removal, had to be bagged." Past Psychological History: Depression Smoking Status: Never smoker Past Alcohol Use History: None Reported Past Drug Use History: None Reported - Past Family History Sister(s) Family Medical History: Myocardial Infarction ([place]) Brother(s) Family Medical History: Cancer Additional Family Medical History / Comment(s): Colon Cancer. Mother Family Medical History: Dementia Additional Family Medical History / Comment(s): Mother of dementia at the age of 89yrs. Father Family Medical History: Cancer Additional Family Medical History / Comment(s): Pt states her father was treated for a sinus infection but really had leukemia and of this at the age of 72 yrs. General Exam - General Exam Comments Initial Comments: Nontoxic-appearing 81-year-old female in no acute distress. He is being hydrated. Limitations: no limitations General appearance: alert, in no apparent distress Head exam: Present: atraumatic, normocephalic, normal inspection Eye exam: Present: normal appearance, PERRL, EOMI. Absent: scleral icterus, conjunctival injection, periorbital swelling ENT exam: Present: normal exam, mucous membranes moist Neck exam: Present: normal inspection. Absent: tenderness, meningismus, lymphadenopathy Respiratory exam: Present: normal lung sounds bilaterally. Absent: respiratory distress, wheezes, rales, rhonchi, stridor Cardiovascular Exam: Present: regular rate, normal rhythm, normal heart sounds. Absent: systolic murmur, diastolic murmur, rubs, gallop, clicks GI/Abdominal exam: Present: soft, normal bowel sounds. Absent: distended, tenderness, guarding, rebound, rigid Extremities exam: Present: normal inspection, full ROM, normal capillary refill. Absent: tenderness, pedal edema, joint swelling, calf tenderness Back exam: Present: normal inspection Neurological exam: Present: alert, oriented X3, CN II-XII intact Psychiatric exam: Present: normal affect, normal mood Skin exam: Present: warm, dry, intact, normal color. Absent: rash Course Vital Signs 03/02/22 03/02/22 18:06 20:42 Temperature 97.8 F Pulse Rate 71 67 Respiratory 16 16 Rate Blood Pressure 123/66 123/73 O2 Sat by Pulse 99 100 Oximetry - Reevaluation(s) Reevaluation #1: 03/02/22 22:28 Medical record is reviewed Symptoms are improved here in the emergency department Patient is informed of results and questions answered Patient in no distress Charles to 70. Acetone negative. Venous pH is normal. No evidence of DKA or h yperosmolar state. No evidence of infectious process. EKG Findings - EKG Comments: EKG Findings:: EKG done at 18 2100. ED attending physician reveals sinus rhythm with a rate of 66, normal intervals, left axis deviation, no acute ST or T-wave changes. Incomplete right bundle-branch block with trouble RN V1 and V2. Medical Decision Making - Medical Decision Making Patient sent hyperglycemia. Patient is noted acute findings on initial examination. Patient does take insulin for blood sugar control. Patient took 20 units of Humalog prior to ER arrival. Patient's pH was 7.34 with regard to venous blood gas. Bicarbonate 30, CO2 59. Renal function was stable with a creatinine of 1.7. Patient's hemoglobin was actually better than previously. Evidence of chronic anemia. Patient was started on iron supplementation by her physician. I told her to continue this. Patient is to call her physician in the morning for further guidance. Patient really no acute distress at discharge. Neurologically intact. Alert and oriented 4, stable The case was discussed in detail with ED attending physician. Presentation, findings, treatment plan discussed in detail. Patient was told to return to the ER for any signs or symptoms worsen. Told to return immediately if any other problems arise. All questions answered. Treatment plan discussed. Patient in agreement Every effort has been made to ensure accuracy of this dictation. However, due to the limitations of electronic medical records and dictation devices, errors in charting still occur. Wire Twister Dr. Ferguson - Lab Data Result diagrams: 03/02/22 18:21 03/02/22 18:21 Lab Results 03/02/22 03/02/22 03/02/22 Range/Units 18:16 18:21 18:21 WBC 8.9 (3.8-10.6) k/uL RBC 3.06 L (3.80-5.40) m/uL Hgb 8.9 L D (11.4-16.0) gm/dL Hct 28.0 L (34.0-46.0) % MCV 91.6 (80.0-100.0) fL MCH 29.3 (25.0-35.0) pg MCHC 32.0 (31.0-37.0) g/dL RDW 14.8 (11.5-15.5) % Plt Count 271 (150-450) k/uL MPV 8.2 Neutrophils % (Manual) 66 % Band Neuts % (Manual) 6 % Lymphocytes % (Manual) 12 % Monocytes % (Manual) 8 % Eosinophils % (Manual) 5 % Metamyelocytes % 3 % Neutrophils # (Manual) 6.40 (1.3-7.7) k/uL Lymphocytes # (Manual) 1.07 (1.0-4.8) k/uL Monocytes # (Manual) 0.71 (0-1.0) k/uL Eosinophils # (Manual) 0.45 (0-0.7) k/uL Metamyelocytes # (Man) 0.27 H (0) k/uL Nucleated RBCs 0 (0-0) /100 WBC Manual Slide Review Performed Hypochromasia Slight Ovalocytes Present VBG pH (7.31-7.41) VBG pCO2 (37-51) mmHg VBG HCO3 (24-28) mmol/L Sodium 136 L (137-145) mmol/L Potassium 4.6 (3.5-5.1) mmol/L Chloride 99 (98-107) mmol/L Carbon Dioxide 30 (22-30) mmol/L Anion Gap 7 mmol/L BUN 57 H (7-17) mg/dL Creatinine 1.70 H (0.52-1.04) mg/dL Est GFR (CKD-EPI)AfAm 33 (>60 ml/min/1.73 sqM) Est GFR (CKD-EPI)NonAf 28 (>60 ml/min/1.73 sqM) Glucose 360 H (74-99) mg/dL POC Glucose (mg/dL) 417 H (70-110) mg/dL POC Glu Licensed Massage Therapist ID Huma Lawson Calcium 8.4 (8.4-10.2) mg/dL Phosphorus 4.1 (2.5-4.5) mg/dL Magnesium 2.2 (1.6-2.3) mg/dL Total Bilirubin 0.3 (0.2-1.3) mg/dL AST 20 (14-36) U/L ALT 18 (4-34) U/L Alkaline Phosphatase 127 H (38-126) U/L Troponin I (0.000-0.034) ng/mL Total Protein 5.9 L (6.3-8.2) g/dL Albumin 3.5 (3.5-5.0) g/dL Urine Color Urine Appearance (Clear) Urine pH (5.0-8.0) Ur Specific [place] (1.001-1.035) Urine Protein (Negative) Urine Glucose (UA) (Negative) Urine Ketones (Negative) Urine Blood (Negative) Urine Nitrite (Negative) Urine Bilirubin (Negative) Urine Urobilinogen (<2.0) mg/dL Ur Leukocyte Esterase (Negative) Urine WBC (0-5) /hpf Hyaline Casts (0-2) /lpf Urine Mucus (None) /hpf Acetone, Qual Negative (Negative) 03/02/22 03/02/22 03/02/22 Range/Units 18:21 18:38 19:05 WBC (3.8-10.6) k/uL RBC (3.80-5.40) m/uL Hgb (11.4-16.0) gm/dL Hct (34.0-46.0) % MCV (80.0-100.0) fL MCH (25.0-35.0) pg MCHC (31.0-37.0) g/dL RDW (11.5-15.5) % Plt Count (150-450) k/uL MPV Neutrophils % (Manual) % Band Neuts % (Manual) % Lymphocytes % (Manual) % Monocytes % (Manual) % Eosinophils % (Manual) % Metamyelocytes % % Neutrophils # (Manual) (1.3-7.7) k/uL Lymphocytes # (Manual) (1.0-4.8) k/uL Monocytes # (Manual) (0-1.0) k/uL Eosinophils # (Manual) (0-0.7) k/uL Metamyelocytes # (Man) (0) k/uL Nucleated RBCs (0-0) /100 WBC Manual Slide Review Hypochromasia Ovalocytes VBG pH 7.34 (7.31-7.41) VBG pCO2 59 H (37-51) mmHg VBG HCO3 30 H (24-28) mmol/L Sodium (137-145) mmol/L Potassium (3.5-5.1) mmol/L Chloride (98-107) mmol/L Carbon Dioxide (22-30) mmol/L Anion Gap mmol/L BUN (7-17) mg/dL Creatinine (0.52-1.04) mg/dL Est GFR (CKD-EPI)AfAm (>60 ml/min/1.73 sqM) Est GFR (CKD-EPI)NonAf (>60 ml/min/1.73 sqM) Glucose (74-99) mg/dL POC Glucose (mg/dL) (70-110) mg/dL POC Glu Licensed Massage Therapist ID Calcium (8.4-10.2) mg/dL Phosphorus (2.5-4.5) mg/dL Magnesium (1.6-2.3) mg/dL Total Bilirubin (0.2-1.3) mg/dL AST (14-36) U/L ALT (4-34) U/L Alkaline Phosphatase (38-126) U/L Troponin I 0.019 (0.000-0.034) ng/mL Total Protein (6.3-8.2) g/dL Albumin (3.5-5.0) g/dL Urine Color Yellow Urine Appearance Clear (Clear) Urine pH 5.0 (5.0-8.0) Ur Specific [place] 1.010 (1.001-1.035) Urine Protein 1+ H (Negative) Urine Glucose (UA) 3+ H (Negative) Urine Ketones Negative (Negative) Urine Blood Negative (Negative) Urine Nitrite Negative (Negative) Urine Bilirubin Negative (Negative) Urine Urobilinogen <2.0 (<2.0) mg/dL Ur Leukocyte Esterase Negative (Negative) Urine WBC 1 (0-5) /hpf Hyaline Casts 16 H (0-2) /lpf Urine Mucus Rare H (None) /hpf Acetone, Qual (Negative) 03/02/22 03/02/22 Range/Units 20:36 21:47 WBC (3.8-10.6) k/uL RBC (3.80-5.40) m/uL Hgb (11.4-16.0) gm/dL Hct (34.0-46.0) % MCV (80.0-100.0) fL MCH (25.0-35.0) pg MCHC (31.0-37.0) g/dL RDW (11.5-15.5) % Plt Count (150-450) k/uL MPV Neutrophils % (Manual) % Band Neuts % (Manual) % Lymphocytes % (Manual) % Monocytes % (Manual) % Eosinophils % (Manual) % Metamyelocytes % % Neutrophils # (Manual) (1.3-7.7) k/uL Lymphocytes # (Manual) (1.0-4.8) k/uL Monocytes # (Manual) (0-1.0) k/uL Eosinophils # (Manual) (0-0.7) k/uL Metamyelocytes # (Man) (0) k/uL Nucleated RBCs (0-0) /100 WBC Manual Slide Review Hypochromasia Ovalocytes VBG pH (7.31-7.41) VBG pCO2 (37-51) mmHg VBG HCO3 (24-28) mmol/L Sodium (137-145) mmol/L Potassium (3.5-5.1) mmol/L Chloride (98-107) mmol/L Carbon Dioxide (22-30) mmol/L Anion Gap mmol/L BUN (7-17) mg/dL Creatinine (0.52-1.04) mg/dL Est GFR (CKD-EPI)AfAm (>60 ml/min/1.73 sqM) Est GFR (CKD-EPI)NonAf (>60 ml/min/1.73 sqM) Glucose (74-99) mg/dL POC Glucose (mg/dL) 301 H 277 H (70-110) mg/dL POC Glu Licensed Massage Therapist ID StevoYocastae Eber Calcium (8.4-10.2) mg/dL Phosphorus (2.5-4.5) mg/dL Magnesium (1.6-2.3) mg/dL Total Bilirubin (0.2-1.3) mg/dL AST (14-36) U/L ALT (4-34) U/L Alkaline Phosphatase (38-126) U/L Troponin I (0.000-0.034) ng/mL Total Protein (6.3-8.2) g/dL Albumin (3.5-5.0) g/dL Urine Color Urine Appearance (Clear) Urine pH (5.0-8.0) Ur Specific [place] (1.001-1.035) Urine Protein (Negative) Urine Glucose (UA) (Negative) Urine Ketones (Negative) Urine Blood (Negative) Urine Nitrite (Negative) Urine Bilirubin (Negative) Urine Urobilinogen (<2.0) mg/dL Ur Leukocyte Esterase (Negative) Urine WBC (0-5) /hpf Hyaline Casts (0-2) /lpf Urine Mucus (None) /hpf Acetone, Qual (Negative) - Radiology Data Radiology results: report reviewed, image reviewed Disposition Clinical Impression: Hyperglycemia due to type 2 diabetes mellitus Disposition: HOME SELF-CARE Condition: Good Instructions (If sedation given, give patient instructions): Diabetic Hype rglycemia (ED) Additional Instructions: Call your regular physician tomorrow regarding monitoring of her sugars and medication dosing. Refrain from eating concentrated sugars or significant amounts of carbohydrates such as bread. Follow-up with your regular physician as directed. Return to the ER immediately if any symptoms worsen, new symptoms arise, or any other problems develop. Is patient prescribed a controlled substance at d/c from ED?: No Referrals: Marianela Sheppard MD [Primary Care Provider] - 03/03/22 8:00 am Time of Disposition: 22:30
[2022-03-02 18:18] LABS: Glucose,Whole Blood 417 mg/dL (70-110)
[2022-03-02 18:41] LABS: VBG PH 7.34 (7.31-7.41)
[2022-03-02 18:49] LABS: Hypochromasia Slight; MCH 29.3 pg (25.0-35.0); MCV 91.6 fL (80.0-100.0); Mean Platelet Volume 8.2; Platelet Count 271 k/uL (150-450); RBC 3.06 m/uL (3.80-5.40); RDW 14.8 % (11.5-15.5); WBC 8.9 k/uL (3.8-10.6)
[2022-03-02 18:50] LABS: ALT 18 U/L (4-34); AST 20 U/L (14-36); African American GFR (CKD) 33 (>60 ml/min/1.73 sqM); Albumin 3.5 g/dL (3.5-5.0); Alkaline Phosphatase 127 U/L (38-126); Anion Gap 7 mmol/L; Blood Urea Nitrogen 57 mg/dL (7-17); Calcium 8.4 mg/dL (8.4-10.2); Carbon Dioxide 30 mmol/L (22-30); Chloride 99 mmol/L (98-107); Glucose 360 mg/dL (74-99); Magnesium 2.2 mg/dL (1.6-2.3); Non-African American GFR(CKD) 28 (>60 ml/min/1.73 sqM); Phosphorus 4.1 mg/dL (2.5-4.5); Potassium 4.6 mmol/L (3.5-5.1); Sodium 136 mmol/L (137-145); Total Bilirubin 0.3 mg/dL (0.2-1.3); Total Protein 5.9 g/dL (6.3-8.2)
[2022-03-02 18:53] LABS: HGB 8.9 gm/dL (11.4-16.0)
[2022-03-02 19:12] LABS: Band Neutrophils % 6 %; Eosinophils # (M) 0.45 k/uL (0-0.7); Lymphocytes # (M) 1.07 k/uL (1.0-4.8); Metamyelocytes # (M) 0.27 k/uL (0); Metamyelocytes % 3 %; Monocytes # (M) 0.71 k/uL (0-1.0); Neutrophils % (M) 66 %; Nucleated Red Blood Cells 0 /100 WBC (0-0); Ovalocytes Present; Total Cells Counted 100
[2022-03-02 19:27] LABS: Appearance,Urine Clear (Clear); Bilirubin,Urine Negative (Negative); Blood,Urine Negative (Negative); Color,Urine Yellow; Glucose,Urine (UA) 3+ (Negative); Hyaline Casts,Urine 16 /lpf (0-2); Ketones,Urine Negative (Negative); Leukocyte Esterase,Urine Negative (Negative); Mucus,Urine Rare /hpf; Nitrite,Urine Negative (Negative); Protein,Urine 1+ (Negative); Urobilinogen,Urine <2.0 mg/dL (<2.0); WBC,Urine 1 /hpf (0-5)
[2022-03-02 20:37] LABS: Glucose,Whole Blood 301 mg/dL (70-110)
--- NOTE | 2022-03-02 21:16 | XR ---
EXAMINATION: XR chest 1V portable DATE AND TIME: 03/02/2022 9:01 PM CLINICAL INDICATION: Hyperglycemia TECHNIQUE: Departmental protocol COMPARISON: 12/19/2021 FINDINGS: The overlying soft tissues are quite prominent, limiting visualization of the thoracic anatomy. The lungs appear to be clear, as seen. The pleural spaces appear negative. The cardiac silhouette is moderately enlarged, unchanged. The skeletal structures and soft tissues are negative for acute findings. IMPRESSION: No definite acute radiographic process.
[2022-03-02 21:48] LABS: Glucose,Whole Blood 277 mg/dL (70-110)
[2022-03-02 22:55] VITALS: BP 115/60; PULSE 62; TEMP 98.2
== END 2022-03-02 22:54 | disposition home or self-care (01) ==
LOC: EC 16:25
DX: E11.65 Type 2 diabetes mellitus with hyperglycemia (principal); D64.9 Anemia, unspecified; I48.91 Unspecified atrial fibrillation; J44.9 Chronic obstructive pulmonary disease, unspecified; E78.5 Hyperlipidemia, unspecified; I11.0 Hypertensive heart disease with heart failure; I50.9 Heart failure, unspecified; E07.9 Disorder of thyroid, unspecified; M19.90 Unspecified osteoarthritis, unspecified site; Z88.1 Allergy status to other antibiotic agents; Z88.8 Allergy status to other drugs, medicaments and biological substances; Z88.2 Allergy status to sulfonamides; Z88.5 Allergy status to narcotic agent; Z79.890 Hormone replacement therapy; Z79.899 Other long term (current) drug therapy; Z79.82 Long term (current) use of aspirin; Z79.01 Long term (current) use of anticoagulants
CPT/HCPCS: 36415; 71045; 80053; 81001; 82009; 82803; 83735; 84100; 84484; 85025; 93005; 96360; 99285

== ENCOUNTER 2022-03-20 15:42 | Observation (INO) | payer MEDICARE, OTHER ==
[2022-03-20] MEDS ORDERED: SODIUM CHLORIDE 0.9% 1,000 ML IV STA ×2 (16:38→17:53)
--- NOTE | 2022-03-20 16:42 | ED ---
Dizziness HPI - General Chief Complaint: Dizziness Stated Complaint: Dizziness/SOB Time Seen by Provider: 03/20/22 16:24 Source: patient, EMS, RN notes reviewed Mode of arrival: EMS Limitations: no limitations - History of Present Illness Initial Comments: 81-year-old female who states she was at a restaurant getting ready order food when she suddenly had bowel incontinence shoulder very dizzy lightheaded and diaphoretic and pale she was thought to have low blood sugar was given orange juice. EMS was called patient blood sugar was 320. She also complains of a frontal headache at this time. No focal weakness is generalized weakness. She's had no fevers no chills prior to this. No palpitations no other current complaints or modifying factors at this time she does not believe she passed out. MD Complaint: dizziness, lightheadedness, other - Related Data Home Medications Medication Instructions Recorded Confirmed Atorvastatin [Lipitor] 80 mg PO HS 06/30/18 03/20/22 Potassium Chloride ER [K-Dur 20] 20 meq PO DAILY 08/06/21 03/20/22 Sertraline [Zoloft] 25 mg PO DAILY 08/30/21 03/20/22 Artificial Tears-Hypromellose 1 drop BOTH EYES TID PRN 09/24/21 03/20/22 [Artificial Tear Drops] Docusate [Colace] 100 mg PO DAILY 09/24/21 03/20/22 Isosorbide Mononitrate ER [Imdur] 60 mg PO DAILY 09/24/21 03/20/22 Multivit-Min/Iron/Folic/Lutein 1 tab PO DAILY 09/24/21 03/20/22 [Centrum Silver Women Tablet] Apixaban [Eliquis] 2.5 mg PO BID@0700,1600 12/01/21 03/20/22 Aspirin [Adult Low Dose Aspirin EC] 81 mg PO DAILY 12/01/21 03/20/22 Levothyroxine Sodium [Synthroid] 125 mcg PO DAILY 12/01/21 03/20/22 Magnesium Oxide [Mag-Ox] 400 mg PO DAILY 12/01/21 03/20/22 Melatonin [Melatonin ER] 10 mg PO HS 12/01/21 03/20/22 polyethylene glycoL 3350 [Miralax] 17 gm PO DAILY 12/01/21 03/20/22 lisinopriL 40 mg PO DAILY 12/19/21 03/20/22 Ferrous Sulfate [Feosol] 325 mg PO BID 03/02/22 03/20/22 Previous Rx's Medication Instructions Recorded busPIRone HCl [Buspar] 10 mg PO Q8H #90 tab 12/02/21 Acetaminophen Tab [Tylenol] 650 mg PO Q4H PRN #60 tab 12/21/21 Insuln Asp Prt/Insulin Aspart 20 unit SQ AC-SUPPER 30 Days #5 12/21/21 [NovoLOG MIX 70-30 VIAL] each Insuln Asp Prt/Insulin Aspart 30 unit SQ AC-BRKFST 30 Days #5 12/21/21 [NovoLOG MIX 70-30 VIAL] each carvediloL [Coreg*] 12.5 mg PO BID-W/MEALS 30 Days #60 12/21/21 tab hydrALAZINE HCL [Apresoline] 100 mg PO TID tab 02/15/22 Allergies Allergy/AdvReac Type Severity Reaction Status Date / Time azithromycin Allergy Rash/Hives Verified 03/20/22 18:32 [From Zithromax Z-Jeanmarie] methylprednisolone Allergy Rash/Hives Verified 03/20/22 18:32 [From Medrol] sulfamethoxazole Allergy Rash/Hives Verified 03/20/22 18:32 [From Bactrim] trimethoprim [From Bactrim] Allergy Rash/Hives Verified 03/20/22 18:32 hydrochlorothiazide AdvReac lost Verified 03/20/22 18:32 balance and fell hydrocodone AdvReac Hallucinati Verified 03/20/22 18:32 ons Review of Systems ROS Statement: Those systems with pertinent positive or pertinent negative responses have been documented in the HPI. ROS Other: All systems not noted in ROS Statement are negative. Past Medical History Past Medical History: Atrial Fibrillation, Cancer, Chest Pain / Angina, Heart Failure, COPD, CVA/TIA, Diabetes Mellitus, Hyperlipidemia, Hypertension, Osteoarthritis (OA), Pneumonia, Renal Disease, Sleep Apnea/CPAP/BIPAP, Syncope, Thyroid Disorder Additional Past Medical History / Comment(s): Stage III Kidney Disease, hx Pneumonia with Sepsis, no CPAP use (family states she hasn't been out of the hospital long enough to get a CPAP machine), Vitamin D Deficiency, chronic low back pain, frequent constipation, hx skin cancer, neuropathy History of Any Multi-Drug Resistant Organisms: None Reported Past Surgical History: Adenoidectomy, Back Surgery, Bariatric Surgery, Cholecystectomy, Heart Catheterization, Hysterectomy, Tonsillectomy Additional Past Surgical History / Comment(s): Cardiac caths , lap band placed/since removed, low back surgery, L carpal tunnel release X2, skin cancer removal, colonoscopies, bilateral cataract removals/lens implants. Past Anesthesia/Blood Transfusion Reactions: Previous Problems w/ Anesthesia Additional Past Anesthesia/Blood Transfusion Reaction / Comment(s): "Had too much anesthesia in 2007 for lap band removal, had to be bagged." Past Psychological History: Depression Smoking Status: Never smoker Past Alcohol Use History: None Reported Past Drug Use History: None Reported - Past Family History Sister(s) Family Medical History: Myocardial Infarction ([place]) Brother(s) Family Medical History: Cancer Additional Family Medical History / Comment(s): Colon Cancer. Mother Family Medical History: Dementia Additional Family Medical History / Comment(s): Mother of dementia at the age of 89yrs. Father Family Medical History: Cancer Additional Family Medical History / Comment(s): Pt states her father was treated for a sinus infection but really had leukemia and of this at the age of 72 yrs. General Exam - General Exam Comments Initial Comments: This is a well-developed well-nourished awake alert oriented 4 female Limitations: no limitations General appearance: alert, anxious Head exam: Present: atraumatic, normocephalic, normal inspection Eye exam: Present: normal appearance, PERRL, EOMI. Absent: scleral icterus, conjunctival injection, periorbital swelling ENT exam: Present: mucous membranes dry Neck exam: Present: normal inspection, full ROM, other (No stridor JVD or bruits). Absent: tenderness, meningismus, lymphadenopathy Respiratory exam: Present: normal lung sounds bilaterally. Absent: respiratory distress, wheezes, rales, rhonchi, stridor Cardiovascular Exam: Present: normal rhythm, bradycardia, systolic murmur. Absent: diastolic murmur, rubs, gallop, clicks GI/Abdominal exam: Present: soft, normal bowel sounds. Absent: distended, tenderness, guarding, rebound, rigid, bruit, pulsatile mass Extremities exam: Present: normal inspection, full ROM, normal capillary refill. Absent: tenderness, pedal edema, joint swelling, calf tenderness Back exam: Present: normal inspection Neurological exam: Present: alert, oriented X3, CN II-XII intact Psychiatric exam: Present: normal affect, normal mood Skin exam: Present: warm, dry, intact, normal color. Absent: rash Course Vital Signs 03/20/22 03/20/22 03/20/22 15:49 18:09 19:32 Temperature 97.1 F L 98.8 F Pulse Rate 53 L 53 L 58 L Respiratory 15 15 16 Rate Blood Pressure 120/53 172/71 152/71 O2 Sat by Pulse 99 100 96 Oximetry EKG Findings - EKG Results: EKG: interpreted by DORA, sinus rhythm (Sinus bradycardia rate 53 MT interval 144 QRS duration 127 daily since QTC 493/477 borderline left axis deviation possible RVH prolonged QT interval.) Medical Decision Making - Medical Decision Making Discuss case with Dr. Randhawa patient will be admitted due to the elevated creat inine and poor renal function and she'll not be able get a CT angiogram for evaluation of PE a VQ scan will be ordered also neurology will be consulted the patient's elevated at the gas is likely secondary to dehydration as no infectious processes identified at this time - Lab Data Result diagrams: 03/20/22 16:50 03/20/22 16:50 Lab Results 03/20/22 03/20/22 03/20/22 Range/Units 16:50 16:50 16:50 WBC 7.9 (3.8-10.6) k/uL RBC 3.57 L (3.80-5.40) m/uL Hgb 9.7 L (11.4-16.0) gm/dL Hct 31.3 L (34.0-46.0) % MCV 87.7 (80.0-100.0) fL MCH 27.3 (25.0-35.0) pg MCHC 31.1 (31.0-37.0) g/dL RDW 13.5 (11.5-15.5) % Plt Count 263 (150-450) k/uL MPV 8.3 Neutrophils % 62 % Lymphocytes % 16 % Monocytes % 12 % Eosinophils % 6 % Basophils % 1 % Neutrophils # 4.9 (1.3-7.7) k/uL Lymphocytes # 1.3 (1.0-4.8) k/uL Monocytes # 0.9 (0-1.0) k/uL Eosinophils # 0.5 (0-0.7) k/uL Basophils # 0.0 (0-0.2) k/uL Hypochromasia Moderate D-Dimer (<0.60) mg/L FEU Sodium 135 L (137-145) mmol/L Potassium 4.8 (3.5-5.1) mmol/L Chloride 103 (98-107) mmol/L Carbon Dioxide 25 (22-30) mmol/L Anion Gap 7 mmol/L BUN 39 H (7-17) mg/dL Creatinine 1.57 H (0.52-1.04) mg/dL Est GFR (CKD-EPI)AfAm 36 (>60 ml/min/1.73 sqM) Est GFR (CKD-EPI)NonAf 31 (>60 ml/min/1.73 sqM) Glucose 265 H (74-99) mg/dL Plasma Lactic Acid Terry (0.7-2.0) mmol/L Calcium 8.7 (8.4-10.2) mg/dL Magnesium 1.9 (1.6-2.3) mg/dL Total Bilirubin 0.3 (0.2-1.3) mg/dL AST 18 (14-36) U/L ALT 17 (4-34) U/L Alkaline Phosphatase 113 (38-126) U/L Creatine Kinase 36 (30-135) U/L Troponin I (0.000-0.034) ng/mL Total Protein 6.0 L (6.3-8.2) g/dL Albumin 3.5 (3.5-5.0) g/dL Urine Color Yellow Urine Appearance Cloudy H (Clear) Urine pH 6.5 (5.0-8.0) Ur Specific [place] 1.010 (1.001-1.035) Urine Protein 1+ H (Negative) Urine Glucose (UA) Trace H (Negative) Urine Ketones Negative (Negative) Urine Blood Negative (Negative) Urine Nitrite Negative (Negative) Urine Bilirubin Negative (Negative) Urine Urobilinogen <2.0 (<2.0) mg/dL Ur Leukocyte Esterase Large H (Negative) Urine RBC 13 H (0-5) /hpf Urine WBC 22 H (0-5) /hpf Urine WBC Clumps Few H (None) /hpf Ur Squamous Epith Cells 2 (0-4) /hpf Urine Bacteria Few H (None) /hpf Hyaline Casts 11 H (0-2) /lpf Urine Mucus Rare H (None) /hpf 03/20/22 03/20/22 03/20/22 Range/Units 16:50 16:50 16:50 WBC (3.8-10.6) k/uL RBC (3.80-5.40) m/uL Hgb (11.4-16.0) gm/dL Hct (34.0-46.0) % MCV (80.0-100.0) fL MCH (25.0-35.0) pg MCHC (31.0-37.0) g/dL RDW (11.5-15.5) % Plt Count (150-450) k/uL MPV Neutrophils % % Lymphocytes % % Monocytes % % Eosinophils % % Basophils % % Neutrophils # (1.3-7.7) k/uL Lymphocytes # (1.0-4.8) k/uL Monocytes # (0-1.0) k/uL Eosinophils # (0-0.7) k/uL Basophils # (0-0.2) k/uL Hypochromasia D-Dimer 1.72 H (<0.60) mg/L FEU Sodium (137-145) mmol/L Potassium (3.5-5.1) mmol/L Chloride (98-107) mmol/L Carbon Dioxide (22-30) mmol/L Anion Gap mmol/L BUN (7-17) mg/dL Creatinine (0.52-1.04) mg/dL Est GFR (CKD-EPI)AfAm (>60 ml/min/1.73 sqM) Est GFR (CKD-EPI)NonAf (>60 ml/min/1.73 sqM) Glucose (74-99) mg/dL Plasma Lactic Acid Terry 3.0 H* (0.7-2.0) mmol/L Calcium (8.4-10.2) mg/dL Magnesium (1.6-2.3) mg/dL Total Bilirubin (0.2-1.3) mg/dL AST (14-36) U/L ALT (4-34) U/L Alkaline Phosphatase (38-126) U/L Creatine Kinase (30-135) U/L Troponin I 0.013 (0.000-0.034) ng/mL Total Protein (6.3-8.2) g/dL Albumin (3.5-5.0) g/dL Urine Color Urine Appearance (Clear) Urine pH (5.0-8.0) Ur Specific [place] (1.001-1.035) Urine Protein (Negative) Urine Glucose (UA) (Negative) Urine Ketones (Negative) Urine Blood (Negative) Urine Nitrite (Negative) Urine Bilirubin (Negative) Urine Urobilinogen (<2.0) mg/dL Ur Leukocyte Esterase (Negative) Urine RBC (0-5) /hpf Urine WBC (0-5) /hpf Urine WBC Clumps (None) /hpf Ur Squamous Epith Cells (0-4) /hpf Urine Bacteria (None) /hpf Hyaline Casts (0-2) /lpf Urine Mucus (None) /hpf - Radiology Data Radiology results: report reviewed (Image reviewed as well as report no acute f indings. ), image reviewed Disposition Clinical Impression: Dizziness, Dehydration, Elevated d-dimer, Chronic renal insufficiency, Near syncope, Chronic anemia Disposition: ADMITTED IP TO THIS [facility] Condition: Fair Referrals: Marianela Sheppard MD [STAFF PHYSICIAN] - 1-2 days Decision Date: 03/20/22 Decision Time: 19:00
[2022-03-20 17:34] LABS: Albumin 3.5 g/dL (3.5-5.0); Calcium 8.7 mg/dL (8.4-10.2); Magnesium 1.9 mg/dL (1.6-2.3); Potassium 4.8 mmol/L (3.5-5.1); Total Bilirubin 0.3 mg/dL (0.2-1.3)
[2022-03-20 17:46] LABS: Basophils % (A) 1 %; Eosinophils # (A) 0.5 k/uL (0-0.7); Eosinophils % (A) 6 %; HCT 31.3 % (34.0-46.0); HGB 9.7 gm/dL (11.4-16.0); Hypochromasia Moderate; Lymphocytes # (A) 1.3 k/uL (1.0-4.8); Lymphocytes % (A) 16 %; MCH 27.3 pg (25.0-35.0); MCHC 31.1 g/dL (31.0-37.0); MCV 87.7 fL (80.0-100.0); Mean Platelet Volume 8.3; Monocytes # (A) 0.9 k/uL (0-1.0); Monocytes % (A) 12 %; Neutrophils # (A) 4.9 k/uL (1.3-7.7); Neutrophils % (A) 62 %; Platelet Count 263 k/uL (150-450); RBC 3.57 m/uL (3.80-5.40); RDW 13.5 % (11.5-15.5); WBC 7.9 k/uL (3.8-10.6)
--- NOTE | 2022-03-20 18:22 | CT ---
EXAMINATION TYPE: CT brain wo con DATE OF EXAM: 03/20/2022 COMPARISON: December 19, 2021 HISTORY: RAMOS, altered mental status CT DLP: 1036.4 mGycm Automated exposure control for dose reduction was used. There is cerebral cortical atrophy. There is no mass effect or midline shift. No sign of intracranial hemorrhage. The calvarium is intact. There is normal aeration of the mastoid sinuses. Skull base is intact. IMPRESSION: Cerebral atrophy. No acute intracranial abnormality. No change.
--- NOTE | 2022-03-20 18:25 | XR ---
EXAMINATION TYPE: XR chest 2V DATE OF EXAM: 03/20/2022 COMPARISON: 03/02/2022 HISTORY: Dizziness TECHNIQUE: FINDINGS: There is no heart failure nor confluent pneumonic infiltrate. Costophrenic angles are eugenia r. Heart size is normal. Bony thorax is intact. There are chest leads. IMPRESSION: No active cardiopulmonary disease. No change.
[2022-03-20 18:28] LABS: Appearance,Urine Cloudy (Clear); Bacteria,Urine Few /hpf; Bilirubin,Urine Negative (Negative); Blood,Urine Negative (Negative); Color,Urine Yellow; Glucose,Urine (UA) Trace (Negative); Hyaline Casts,Urine 11 /lpf (0-2); Ketones,Urine Negative (Negative); Leukocyte Esterase,Urine Large (Negative); Mucus,Urine Rare /hpf; Nitrite,Urine Negative (Negative); PH, Urine 6.5 (5.0-8.0); Protein,Urine 1+ (Negative); RBC,Urine 13 /hpf (0-5); Squamous Epithelial Cell,Urine 2 /hpf (0-4); Urobilinogen,Urine <2.0 mg/dL (<2.0); WBC,Urine 22 /hpf (0-5)
--- NOTE | 2022-03-20 18:31 | XR ---
EXAMINATION TYPE: XR KUB DATE OF EXAM: 03/20/2022 COMPARISON: 04/02/2021 HISTORY: Incontinence TECHNIQUE: 3 views supine FINDINGS: There is no sign of intestinal obstruction or pneumoperitoneum. Fecal pattern is normal. No evidence of a mass. This posterior fusion surgery in the lower lumbar spine. There are clips from cholecystectomy. Lung bases are clear. No calcifications seen over the kidneys. IMPRESSION: Nonacute abdomen. No adverse change.
[2022-03-20] MEDS ORDERED: ACETAMINOPHEN TAB 325 MG TAB PO PRN (19:44)
[2022-03-20] MEDS ORDERED: ONDANSETRON 4 MG/2 ML VIAL IVP PRN (19:44)
[2022-03-20] MEDS ORDERED: NALOXONE 0.4 MG/ML 1 ML VIAL IV PRN (19:44)
[2022-03-20] MEDS ORDERED: ARTIFICIAL TEARS-HYPROMELLOSE DROPS 15 ML BTL BOTH EYES PRN (19:46)
[2022-03-20] MEDS: MELATONIN 5 MG TABLET PO SCH (21:31)
[2022-03-20] MEDS: ATORVASTATIN 80 MG TAB PO SCH (21:31)
[2022-03-20] MEDS: busPIRone HCl 10 MG TAB PO SCH (23:15)
[2022-03-20] MEDS: FERROUS SULFATE 325 MG TAB PO SCH (23:15)
[2022-03-21] MEDS: hydrALAZINE HCL 50 MG TAB PO SCH ×2 (00:56→11:52)
[2022-03-21] MEDS: SODIUM CHLORIDE 0.9% 1,000 ML IV SCH ×3 (01:00→11:52)
[2022-03-21 01:07] LABS: Glucose,Whole Blood 332 mg/dL (70-110)
[2022-03-21 06:01] LABS: Glucose,Whole Blood 209 mg/dL (70-110)
[2022-03-21] MEDS: INSULN ASP PRT/INSULIN ASPART 100 UNIT/ML 10 ML VIAL SQ SCH ×2 (06:44→18:12)
[2022-03-21] MEDS: APIXABAN 2.5 MG TABLET PO SCH ×2 (06:44→15:43)
[2022-03-21] MEDS: LEVOTHYROXINE 125 MCG TAB PO SCH (06:44)
[2022-03-21] MEDS: carvediloL 12.5 MG TAB PO SCH ×2 (06:44→17:10)
--- NOTE | 2022-03-21 08:22 | NM ---
EXAMINATION TYPE: NM pul vent and perfuse DATE OF EXAM: 03/21/2022 COMPARISON: NONE HISTORY: Elevated d-dimer, dizziness TECHNIQUE: Utilizing inhalation of 67.9 mCi Tc 99m DTPA aerosol and intravenous injection of 4.85 mC i of Tc 99m MAA, ventilation and perfusion images are acquired post injection in multiple projections . FINDINGS: Normal radiotracer distribution is noted in the lungs. There is no evidence of mismatched defects. IMPRESSION: Normal ventilation/perfusion scan
[2022-03-21] MEDS ORDERED: lisinopriL 20 MG TAB PO SCH (09:00)
[2022-03-21] MEDS: MULTIVITAMINS, THERA 1 EACH TAB PO SCH (09:43)
[2022-03-21] MEDS: FERROUS SULFATE 325 MG TAB PO SCH ×2 (09:43→20:59)
[2022-03-21] MEDS: ASPIRIN 81 MG PO SCH (09:43)
[2022-03-21] MEDS: MAGNESIUM OXIDE 400 MG TAB PO SCH (09:43)
[2022-03-21] MEDS: POTASSIUM CHLORIDE ER 20 MEQ TAB.ER PO SCH (09:43)
[2022-03-21] MEDS: SERTRALINE 25 MG TAB PO SCH (09:43)
[2022-03-21] MEDS: busPIRone HCl 10 MG TAB PO SCH ×2 (09:43→15:43)
[2022-03-21] MEDS: ISOSORBIDE MONONITRATE ER 60 MG TAB.ER.24H PO SCH (09:43)
--- NOTE | 2022-03-21 10:09 | P.CNNES ---
History of Present Illness Consult date: 03/21/22 Requesting physician: Trent West Reason for Consult: dizziness, near syncope History of Present Illness: This is an 81-year-old woman with history of severe aortic valve stenosis, paroxysmal atrial fibrillation on eliquis, syncopal spells, hypertension, hyperlipidemia, diabetes, hypothyroidism, sleep apnea, who presented to the emergency department because of episode lightheaded, dizzy, diaphoerteic, bowel incontinence that was notified to ED team. She stated that the she had bowel incontinence on the way going to the bathroom but cannot tell me if she had any dizziness or lightheadedness she said that she was okay besides that bowel incontinence.. Again she denied that she passed out. As a result of her sy mptoms patient thought that her sugar was low so she drank or orange juice EMS was contacted and they checked her sugar and it was 320. She denies of the passing out She denied any of any focal weakness, any fever. She has syncopal episodes in the past and it's with exertion she stated and the followed up with a cardiothoracic team Dr. De Leon we notified her according to the patient that she's nonsurgical candidate. Of note patient was evaluated by Dr. Hurd (Neuro-Hospitalist) at our facility for episode of fall and it seems that was mechanical and she had altered mental status but he felt that was due to hypoglycemia sugar 65 in his note he mentioned that the patient has severe aortic valve stenosis. And he mentioned in his note that the patient has recurrent syncopal spells due to severe aortic stenosis. He is referred to his note for further details. Some of the workup during this hospital visit consisted of: Initial BUN is 39 and creatinine is 1.57, Plasma-Lyte S Green is 3.0, initial last serum glucose is 265. Urinalysis seems the possible suggestive of urinary tract infection CT of the head is reported as cerebral atrophy. No acute intracranial abnormality. No change. I personally reviewed the CT of the head and there is no acute subacute ischemic changes and there is no intracranial hemorrhage. Review of Systems Review of system: The 12 point system was reviewed and apparent positive and negative per HPI. Past Medical History Past Medical History: Atrial Fibrillation, Cancer, Chest Pain / Angina, Heart Failure, COPD, CVA/TIA, Diabetes Mellitus, Hyperlipidemia, Hypertension, Osteoarthritis (OA), Pneumonia, Renal Disease, Sleep Apnea/CPAP/BIPAP, Syncope, Thyroid Disorder Additional Past Medical History / Comment(s): Stage III Kidney Disease, hx Pneumonia with Sepsis, no CPAP use (family states she hasn't been out of the hospital long enough to get a CPAP machine), Vitamin D Deficiency, chronic low back pain, frequent constipation, hx skin cancer, neuropathy History of Any Multi-Drug Resistant Organisms: None Reported Past Surgical History: Adenoidectomy, Back Surgery, Bariatric Surgery, Cholecystectomy, Heart Catheterization, Hysterectomy, Tonsillectomy Additional Past Surgical History / Comment(s): Cardiac caths , lap band placed/since removed, low back surgery, L carpal tunnel release X2, skin cancer removal, colonoscopies, bilateral cataract removals/lens implants. Past Anesthesia/Blood Transfusion Reactions: Previous Problems w/ Anesthesia Additional Past Anesthesia/Blood Transfusion Reaction / Comment(s): "Had too much anesthesia in 2007 for lap band removal, had to be bagged." Past Psychological History: Depression Additional Psychological History / Comment(s): Pt resides alone. Pt uses a walker. Smoking Status: Never smoker Past Alcohol Use History: None Reported Past Drug Use History: None Reported - Past Family History Sister(s) Family Medical History: Myocardial Infarction ([place]) Brother(s) Family Medical History: Cancer Additional Family Medical History / Comment(s): Colon Cancer. Mother Family Medical History: Dementia Additional Family Medical History / Comment(s): Mother of dementia at the age of 89yrs. Father Family Medical History: Cancer Additional Family Medical History / Comment(s): Pt states her father was treated for a sinus infection but really had leukemia and of this at the age of 72 yrs. Medications and Allergies Home Medications Medication Instructions Recorded Confirmed Type Atorvastatin [Lipitor] 80 mg PO HS 06/30/18 03/20/22 History Potassium Chloride ER [K-Dur 20] 20 meq PO DAILY 08/06/21 03/20/22 History Sertraline [Zoloft] 25 mg PO DAILY 08/30/21 03/20/22 History Artificial Tears-Hypromellose 1 drop BOTH EYES TID PRN 09/24/21 03/20/22 History [Artificial Tear Drops] Docusate [Colace] 100 mg PO DAILY 09/24/21 03/20/22 History Isosorbide Mononitrate ER [Imdur] 60 mg PO DAILY 09/24/21 03/20/22 History Multivit-Min/Iron/Folic/Lutein 1 tab PO DAILY 09/24/21 03/20/22 History [Centrum Silver Women Tablet] Apixaban [Eliquis] 2.5 mg PO BID@0700,1600 12/01/21 03/20/22 History Aspirin [Adult Low Dose Aspirin EC] 81 mg PO DAILY 12/01/21 03/20/22 History Levothyroxine Sodium [Synthroid] 125 mcg PO DAILY 12/01/21 03/20/22 History Magnesium Oxide [Mag-Ox] 400 mg PO DAILY 12/01/21 03/20/22 History Melatonin [Melatonin ER] 10 mg PO HS 12/01/21 03/20/22 History polyethylene glycoL 3350 [Miralax] 17 gm PO DAILY 12/01/21 03/20/22 History busPIRone HCl [Buspar] 10 mg PO Q8H #90 tab 12/02/21 03/20/22 Rx lisinopriL 40 mg PO DAILY 12/19/21 03/20/22 History Acetaminophen Tab [Tylenol] 650 mg PO Q4H PRN #60 tab 12/21/21 03/20/22 Rx Insuln Asp Prt/Insulin Aspart 20 unit SQ AC-SUPPER 30 Days #5 12/21/21 03/20/22 Rx [NovoLOG MIX 70-30 VIAL] each Insuln Asp Prt/Insulin Aspart 30 unit SQ AC-BRKFST 30 Days #5 12/21/21 03/20/22 Rx [NovoLOG MIX 70-30 VIAL] each carvediloL [Coreg*] 12.5 mg PO BID-W/MEALS 30 Days #60 12/21/21 03/20/22 Rx tab hydrALAZINE HCL [Apresoline] 100 mg PO TID tab 02/15/22 03/20/22 Rx Ferrous Sulfate [Feosol] 325 mg PO BID 03/02/22 03/20/22 History Allergies Allergy/AdvReac Type Severity Reaction Status Date / Time azithromycin Allergy Rash/Hives Verified 03/20/22 18:32 [From Zithromax Z-Jeanmarie] methylprednisolone Allergy Rash/Hives Verified 03/20/22 18:32 [From Medrol] sulfamethoxazole Allergy Rash/Hives Verified 03/20/22 18:32 [From Bactrim] trimethoprim [From Bactrim] Allergy Rash/Hives Verified 03/20/22 18:32 hydrochlorothiazide AdvReac lost Verified 03/20/22 18:32 balance and fell hydrocodone AdvReac Hallucinati Verified 03/20/22 18:32 ons Physical Examination - Vital Signs Vital Signs: Vital Signs Temp Pulse Pulse Resp BP BP Pulse Ox 03/21/22 04:00 68 16 131/70 92 L 03/21/22 01:00 98.1 F 57 L 16 178/72 98 03/20/22 23:15 98.4 F 59 L 16 153/81 94 L 03/20/22 21:34 97.8 F 70 16 143/62 96 03/20/22 19:32 98.8 F 58 L 16 152/71 96 03/20/22 18:09 53 L 15 172/71 100 03/20/22 15:49 97.1 F L 53 L 15 120/53 99 Intake and Output 03/20/22 03/21/22 03/21/22 22:59 06:59 14:59 Intake Total 485 Balance 485 Intake: Oral 485 Other: Voiding Method Toilet # Voids 1 Weight 89.358 kg 89.358 kg GENERAL: The patient is a obese woman lying in bed and is not in acute distress. CHEST: The heart rate is regular rate rhythm. No murmurs to auscultation. LUNG: Clear to auscultation bilaterally no wheezing noted throughout. Not labored breathing. ABDOMEN/GI: Bowel sounds present in all 4 quadrants. No tenderness to palpation throughout. NEUROLOGICAL: Higher mental function: The patient is awake, alert, oriented to self, place and time. Patient is following commands. No aphasia and no neglect. Cranial nerves: The pupils are round, equal and reactive to light and accommodation. Visual gomez are full to confrontation throughout. Extraocular movement is intact no nystagmus is noted. Facial sensation is normal to touch throughout. The facial strength is normal throughout. Hearing is mildly decreasedl bilaterally to hand rub. Tongue is midline and moved [id number] without any difficulty. No dysarthria is noted. Shoulder shrug is normal bilaterally. Motor: Gait is deferred. The strength is 5 over 5 throughout. Has old fracture on last two digits of the right hand from prior fall. Normal tone and bulk. Cerebellum: Normal finger to nose bilaterally. Sensation: Sensation is normal to touch throughout. Reflexes (right/left): 1+ throughout Plantars are mute bilaterally. Results - Laboratory Findings CBC and BMP: 03/20/22 16:50 03/20/22 16:50 Abnormal Lab Findings: Abnormal Labs 03/20/22 03/20/22 03/20/22 16:50 16:50 16:50 RBC 3.57 L Hgb 9.7 L Hct 31.3 L D-Dimer Sodium 135 L BUN 39 H Creatinine 1.57 H Glucose 265 H POC Glucose (mg/dL) Plasma Lactic Acid Terry Total Protein 6.0 L Urine Appearance Cloudy H Urine Protein 1+ H Urine Glucose (UA) Trace H Ur Leukocyte Esterase Large H Urine RBC 13 H Urine WBC 22 H Urine WBC Clumps Few H Urine Bacteria Few H Hyaline Casts 11 H Urine Mucus Rare H 03/20/22 03/20/22 03/21/22 16:50 16:50 01:03 RBC Hgb Hct D-Dimer 1.72 H Sodium BUN Creatinine Glucose POC Glucose (mg/dL) 332 H Plasma Lactic Acid Terry 3.0 H* Total Protein Urine Appearance Urine Protein Urine Glucose (UA) Ur Leukocyte Esterase Urine RBC Urine WBC Urine WBC Clumps Urine Bacteria Hyaline Casts Urine Mucus 03/21/22 06:00 RBC Hgb Hct D-Dimer Sodium BUN Creatinine Glucose POC Glucose (mg/dL) 209 H Plasma Lactic Acid Terry Total Protein Urine Appearance Urine Protein Urine Glucose (UA) Ur Leukocyte Esterase Urine RBC Urine WBC Urine WBC Clumps Urine Bacteria Hyaline Casts Urine Mucus Assessment and Plan Assessment: Presyncopal episodes with history of Recurrent syncopal episodes due to severe aortic stenosis Severe symptomatic aortic stenosis Possible acute UTI Paroxysmal atrial fibrillation on eliquis Diabetes mellitus Chronic kidney insufficiency Hypothyroidism Sleep apnea Obesity Plan: I ordered a routine EEG. I'll not start patient on antiepileptic drugs unless there is epileptiform discharges or seizure on the EEG. As I stated in my impression I feel her recurrent syncopal episodes are due to her severe aortic stenosis. I recommend cardiology consultation. We'll defer the rest of the medical management to the primary team The plan is discussed with the patient's nurse. Thank you for the consultation. Gilbert Mays M.D. Neuro-Hospitalist Time with Patient: Greater than 30
[2022-03-21] MEDS: polyethylene glycoL 3350 17 GM POWD.PACK PO SCH (11:02)
[2022-03-21] MEDS: DOCUSATE 100 MG CAP PO SCH (11:02)
[2022-03-21 11:31] LABS: Glucose,Whole Blood 114 mg/dL (70-110)
--- NOTE | 2022-03-21 11:45 | P.HPIM ---
History of Present Illness Patient is a pleasant 81-year-old female with history of severe aortic stenosis proximal atrial fibrillation on Eliquis came in with a near syncopal episode patient had similar episodes in the past neurology was consulted with concerns of seizures although patient doesn't have any seizures at this time. Patient apparently was evaluated by cardiac thoracic surgery in the past for aortic valve replacement and apparently she was told she is not a candidate for replacement. Patient the was dizzy diaphoretic with bowel incontinence. Patient blood pressure is low normal today at this time. Patient is on multiple medications including lisinopril and hydralazine. Patient does have chronic kidney disease with elevated creatinine of 1.57. This is her baseline. Patient is bit hyponatremic patient was receiving IV fluids. Patient had normal ejection fraction the past possibly of diastolic dysfunction though presently not in heart failure exacerbation. REVIEW OF SYSTEMS: CONSTITUTIONAL: No fever, no malaise, no fatigue. HEENT: No recent visual problems or hearing problems. Denied any sore throat. CARDIOVASCULAR: No chest pain, orthopnea, PND, no palpitations, PULMONARY: No shortness of breath, no cough, no hemoptysis. GASTROINTESTINAL: No diarrhea, no nausea, no vomiting, no abdominal pain. NEUROLOGICAL: No headaches, no weakness, no numbness. HEMATOLOGICAL: Denies any bleeding or petechiae. GENITOURINARY: Denies any burning micturition, frequency, or urgency. MUSCULOSKELETAL/RHEUMATOLOGICAL: Denies any joint pain, swelling, or any muscle pain. ENDOCRINE: Denies any polyuria or polydipsia. The rest of the 14-point review of systems is negative. PHYSICAL EXAMINATION: GENERAL: The patient is alert and oriented x3, not in any acute distress. Well developed, well nourished. HEENT: Pupils are round and equally reacting to light. EOMI. No scleral icterus. No conjunctival pallor. Normocephalic, atraumatic. No pharyngeal erythema. No thyromegaly. CARDIOVASCULAR: S1 and S2 present. No rubs, or gallops. Systolic murmur in the aortic area PULMONARY: Chest is clear to auscultation, no wheezing or crackles. ABDOMEN: Soft, nontender, nondistended, normoactive bowel sounds. No palpable organomegaly. MUSCULOSKELETAL: No joint swelling or deformity. EXTREMITIES: No cyanosis, clubbing, or pedal edema. NEUROLOGICAL: Gross neurological examination did not reveal any focal deficits. SKIN: No rashes. Assessment and plan -Near syncopal episode probably secondary to severe aortic stenosis along with hypotension will be cut down the lisinopril and hydralazine. Hydralazine is probably beneficial as it decreases afterload. -Asymptomatic bacteriuria patient will not require any antibiotics at this time -Type 2 diabetes mellitus patient will be resumed on home regimen diabetic diet will monitor the blood sugars titration depending on her blood sugars -Chronic kidney disease secondary to diabetic nephropathy patient has stage III chronic kidney disease -Hypertension -Congestive heart failure chronic diastolic dysfunction without any acute exacerbation -Ruled out pulmonary embolism -History of atrial fibrillation probably paroxysmal and the patient is on anti- correlation which will be continued -Hyperlipidemia -Hypertension -Sleep apnea on CPAP machine -Hypothyroidism DVT prophylaxis: On Eliquis at this time Past Medical History Past Medical History: Atrial Fibrillation, Cancer, Chest Pain / Angina, Heart Failure, COPD, CVA/TIA, Diabetes Mellitus, Hyperlipidemia, Hypertension, Osteoarthritis (OA), Pneumonia, Renal Disease, Sleep Apnea/CPAP/BIPAP, Syncope, Thyroid Disorder Additional Past Medical History / Comment(s): Stage III Kidney Disease, hx Pneumonia with Sepsis, no CPAP use (family states she hasn't been out of the hospital long enough to get a CPAP machine), Vitamin D Deficiency, chronic low back pain, frequent constipation, hx skin cancer, neuropathy History of Any Multi-Drug Resistant Organisms: None Reported Past Surgical History: Adenoidectomy, Back Surgery, Bariatric Surgery, Cholecystectomy, Heart Catheterization, Hysterectomy, Tonsillectomy Additional Past Surgical History / Comment(s): Cardiac caths 2010/2014, lap band placed/since removed, low back surgery, L carpal tunnel release X2, skin cancer removal, colonoscopies, bilateral cataract removals/lens implants. Past Anesthesia/Blood Transfusion Reactions: Previous Problems w/ Anesthesia Additional Past Anesthesia/Blood Transfusion Reaction / Comment(s): "Had too much anesthesia in 2007 for lap band removal, had to be bagged." Past Psychological History: Depression Additional Psychological History / Comment(s): Pt resides alone. Pt uses a wa lker. Smoking Status: Never smoker Past Alcohol Use History: None Reported Past Drug Use History: None Reported - Past Family History Sister(s) Family Medical History: Myocardial Infarction ([place]) Brother(s) Family Medical History: Cancer Additional Family Medical History / Comment(s): Colon Cancer. Mother Family Medical History: Dementia Additional Family Medical History / Comment(s): Mother of dementia at the age of 89yrs. Father Family Medical History: Cancer Additional Family Medical History / Comment(s): Pt states her father was treated for a sinus infection but really had leukemia and of this at the age of 72 yrs. Medications and Allergies Home Medications Medication Instructions Recorded Confirmed Type Atorvastatin [Lipitor] 80 mg PO HS 06/30/18 03/20/22 History Potassium Chloride ER [K-Dur 20] 20 meq PO DAILY 08/06/21 03/20/22 History Sertraline [Zoloft] 25 mg PO DAILY 08/30/21 03/20/22 History Artificial Tears-Hypromellose 1 drop BOTH EYES TID PRN 09/24/21 03/20/22 History [Artificial Tear Drops] Docusate [Colace] 100 mg PO DAILY 09/24/21 03/20/22 History Isosorbide Mononitrate ER [Imdur] 60 mg PO DAILY 09/24/21 03/20/22 History Multivit-Min/Iron/Folic/Lutein 1 tab PO DAILY 09/24/21 03/20/22 History [Centrum Silver Women Tablet] Apixaban [Eliquis] 2.5 mg PO BID@0700,1600 12/01/21 03/20/22 History Aspirin [Adult Low Dose Aspirin EC] 81 mg PO DAILY 12/01/21 03/20/22 History Levothyroxine Sodium [Synthroid] 125 mcg PO DAILY 12/01/21 03/20/22 History Magnesium Oxide [Mag-Ox] 400 mg PO DAILY 12/01/21 03/20/22 History Melatonin [Melatonin ER] 10 mg PO HS 12/01/21 03/20/22 History polyethylene glycoL 3350 [Miralax] 17 gm PO DAILY 12/01/21 03/20/22 History busPIRone HCl [Buspar] 10 mg PO Q8H #90 tab 12/02/21 03/20/22 Rx lisinopriL 40 mg PO DAILY 12/19/21 03/20/22 History Acetaminophen Tab [Tylenol] 650 mg PO Q4H PRN #60 tab 12/21/21 03/20/22 Rx Insuln Asp Prt/Insulin Aspart 20 unit SQ AC-SUPPER 30 Days #5 12/21/21 03/20/22 Rx [NovoLOG MIX 70-30 VIAL] each Insuln Asp Prt/Insulin Aspart 30 unit SQ AC-BRKFST 30 Days #5 12/21/21 03/20/22 Rx [NovoLOG MIX 70-30 VIAL] each carvediloL [Coreg*] 12.5 mg PO BID-W/MEALS 30 Days #60 12/21/21 03/20/22 Rx tab hydrALAZINE HCL [Apresoline] 100 mg PO TID tab 02/15/22 03/20/22 Rx Ferrous Sulfate [Feosol] 325 mg PO BID 03/02/22 03/20/22 History Allergies Allergy/AdvReac Type Severity Reaction Status Date / Time azithromycin Allergy Rash/Hives Verified 03/20/22 18:32 [From Zithromax Z-Jeanmarie] methylprednisolone Allergy Rash/Hives Verified 03/20/22 18:32 [From Medrol] sulfamethoxazole Allergy Rash/Hives Verified 03/20/22 18:32 [From Bactrim] trimethoprim [From Bactrim] Allergy Rash/Hives Verified 03/20/22 18:32 hydrochlorothiazide AdvReac lost Verified 03/20/22 18:32 balance and fell hydrocodone AdvReac Hallucinati Verified 03/20/22 18:32 ons Physical Exam Vitals: Vital Signs Temp Pulse Pulse Pulse Pulse Pulse Resp 03/21/22 08:00 98.2 F 58 L 60 62 58 L 18 03/21/22 04:00 68 16 03/21/22 01:00 98.1 F 57 L 16 03/20/22 23:15 98.4 F 59 L 16 03/20/22 21:34 97.8 F 70 16 03/20/22 19:32 98.8 F 58 L 16 03/20/22 18:09 53 L 15 03/20/22 15:49 97.1 F L 53 L 15 BP BP BP BP BP Pulse Ox 03/21/22 08:00 167/72 157/67 148/61 148/61 99 03/21/22 04:00 131/70 92 L 03/21/22 01:00 178/72 98 03/20/22 23:15 153/81 94 L 03/20/22 21:34 143/62 96 03/20/22 19:32 152/71 96 03/20/22 18:09 172/71 100 03/20/22 15:49 120/53 99 Intake and Output 03/20/22 03/21/22 03/21/22 22:59 06:59 14:59 Intake Total 485 90 Balance 485 90 Intake: Oral 485 90 Other: Voiding Method Toilet Toilet # Voids 1 1 Weight 89.358 kg 89.358 kg Results CBC & Chem 7: 03/20/22 16:50 03/20/22 16:50 Labs: Abnormal Lab Results - Last 24 Hours (Table) 03/20/22 03/20/22 03/20/22 Range/Units 16:50 16:50 16:50 RBC 3.57 L (3.80-5.40) m/uL Hgb 9.7 L (11.4-16.0) gm/dL Hct 31.3 L (34.0-46.0) % D-Dimer (<0.60) mg/L FEU Sodium 135 L (137-145) mmol/L BUN 39 H (7-17) mg/dL Creatinine 1.57 H (0.52-1.04) mg/dL Glucose 265 H (74-99) mg/dL POC Glucose (mg/dL) (70-110) mg/dL Plasma Lactic Acid Terry (0.7-2.0) mmol/L Total Protein 6.0 L (6.3-8.2) g/dL Urine Appearance Cloudy H (Clear) Urine Protein 1+ H (Negative) Urine Glucose (UA) Trace H (Negative) Ur Leukocyte Esterase Large H (Negative) Urine RBC 13 H (0-5) /hpf Urine WBC 22 H (0-5) /hpf Urine WBC Clumps Few H (None) /hpf Urine Bacteria Few H (None) /hpf Hyaline Casts 11 H (0-2) /lpf Urine Mucus Rare H (None) /hpf 03/20/22 03/20/22 03/21/22 Range/Units 16:50 16:50 01:03 RBC (3.80-5.40) m/uL Hgb (11.4-16.0) gm/dL Hct (34.0-46.0) % D-Dimer 1.72 H (<0.60) mg/L FEU Sodium (137-145) mmol/L BUN (7-17) mg/dL Creatinine (0.52-1.04) mg/dL Glucose (74-99) mg/dL POC Glucose (mg/dL) 332 H (70-110) mg/dL Plasma Lactic Acid Terry 3.0 H* (0.7-2.0) mmol/L Total Protein (6.3-8.2) g/dL Urine Appearance (Clear) Urine Protein (Negative) Urine Glucose (UA) (Negative) Ur Leukocyte Esterase (Negative) Urine RBC (0-5) /hpf Urine WBC (0-5) /hpf Urine WBC Clumps (None) /hpf Urine Bacteria (None) /hpf Hyaline Casts (0-2) /lpf Urine Mucus (None) /hpf 03/21/22 03/21/22 Range/Units 06:00 11:29 RBC (3.80-5.40) m/uL Hgb (11.4-16.0) gm/dL Hct (34.0-46.0) % D-Dimer (<0.60) mg/L FEU Sodium (137-145) mmol/L BUN (7-17) mg/dL Creatinine (0.52-1.04) mg/dL Glucose (74-99) mg/dL POC Glucose (mg/dL) 209 H 114 H (70-110) mg/dL Plasma Lactic Acid Terry (0.7-2.0) mmol/L Total Protein (6.3-8.2) g/dL Urine Appearance (Clear) Urine Protein (Negative) Urine Glucose (UA) (Negative) Ur Leukocyte Esterase (Negative) Urine RBC (0-5) /hpf Urine WBC (0-5) /hpf Urine WBC Clumps (None) /hpf Urine Bacteria (None) /hpf Hyaline Casts (0-2) /lpf Urine Mucus (None) /hpf Microbiology - Last 24 Hours (Table) 03/20/22 16:50 Urine Culture - Preliminary Urine,Clean Catch
[2022-03-21 16:20] LABS: Glucose,Whole Blood 292 mg/dL (70-110)
[2022-03-21 20:15] LABS: Glucose,Whole Blood 314 mg/dL (70-110)
[2022-03-21] MEDS: MELATONIN 5 MG TABLET PO SCH (20:59)
[2022-03-21] MEDS: ATORVASTATIN 80 MG TAB PO SCH (20:59)
--- NOTE | 2022-03-21 23:49 | EEG ---
ELECTROENCEPHALOGRAM REPORT CLINICAL HISTORY: This is an 81-year-old woman with history of reported syncopal episodes, who presented with a pre-syncopal episode. The video EEG is obtained to evaluate for seizure and epileptiform activity. RELEVANT MEDICATION: The patient is not on any antiepileptic drugs. EEG TYPE: A routine 21-channel EEG is performed with video using the 10/20 electrode system. DESCRIPTION: Wakefulness is only obtained. During awake state, the posterior-dominant rhythm consists of [id number] voltage of 8 to 8.5 Hz activity, that is well modulated and well sustained. There is no physiological sleep architecture seen. There is no focal slowing. INTERICTAL AND ICTAL: None. ACTIVATION PROCEDURE: Photic stimulation did not evoke a posterior driving response. There is no abnormality during the photic stimulation. Hyperventilation is not performed. CLINICAL INTERPRETATION: This is a normal routine EEG. There is no focal slowing, epileptiform discharge, or seizure on the EEG. Clinical correlation is recommended. CRISTAL / SUKHDEEP: [id number] / [id number]
[2022-03-22] MEDS: busPIRone HCl 10 MG TAB PO SCH ×3 (00:24→17:32)
[2022-03-22 06:09] LABS: Glucose,Whole Blood 149 mg/dL (70-110)
[2022-03-22] MEDS: LEVOTHYROXINE 125 MCG TAB PO SCH (07:04)
[2022-03-22] MEDS: APIXABAN 2.5 MG TABLET PO SCH ×2 (07:04→17:32)
[2022-03-22] MEDS: carvediloL 12.5 MG TAB PO SCH (07:04)
[2022-03-22] MEDS: DOCUSATE 100 MG CAP PO SCH (08:51)
[2022-03-22] MEDS: ISOSORBIDE MONONITRATE ER 60 MG TAB.ER.24H PO SCH (08:51)
[2022-03-22] MEDS: MAGNESIUM OXIDE 400 MG TAB PO SCH (08:51)
[2022-03-22] MEDS: FERROUS SULFATE 325 MG TAB PO SCH ×2 (08:51→22:08)
[2022-03-22] MEDS: MULTIVITAMINS, THERA 1 EACH TAB PO SCH (08:51)
[2022-03-22] MEDS: ASPIRIN 81 MG PO SCH (08:51)
[2022-03-22] MEDS: POTASSIUM CHLORIDE ER 20 MEQ TAB.ER PO SCH (08:51)
[2022-03-22] MEDS: SERTRALINE 25 MG TAB PO SCH (08:51)
[2022-03-22] MEDS: polyethylene glycoL 3350 17 GM POWD.PACK PO SCH (08:51)
[2022-03-22] MEDS: lisinopriL 20 MG TAB PO SCH (08:51)
[2022-03-22] MEDS: hydrALAZINE HCL 50 MG TAB PO SCH ×3 (08:52→22:08)
[2022-03-22] MEDS: INSULN ASP PRT/INSULIN ASPART 100 UNIT/ML 10 ML VIAL SQ SCH ×2 (08:53→17:33)
[2022-03-22 09:34] LABS: Potassium 4.1 mmol/L (3.5-5.1)
[2022-03-22 09:47] LABS: Basophils % (A) 1 %; Eosinophils # (A) 0.5 k/uL (0-0.7); Eosinophils % (A) 6 %; HCT 29.7 % (34.0-46.0); Hypochromasia Marked; Lymphocytes # (A) 1.2 k/uL (1.0-4.8); Lymphocytes % (A) 16 %; MCH 26.8 pg (25.0-35.0); MCHC 30.4 g/dL (31.0-37.0); MCV 88.3 fL (80.0-100.0); Mean Platelet Volume 8.2; Monocytes # (A) 0.9 k/uL (0-1.0); Monocytes % (A) 12 %; Neutrophils # (A) 4.5 k/uL (1.3-7.7); Neutrophils % (A) 62 %; Platelet Count 219 k/uL (150-450); RBC 3.36 m/uL (3.80-5.40); RDW 13.5 % (11.5-15.5); WBC 7.2 k/uL (3.8-10.6)
--- NOTE | 2022-03-22 10:58 | P.CRDCN ---
History of Present Illness History of present illness: This is a 81 year old female with a past medical history significant for paroxysmal atrial fibrillation, hypertension, hyperlipidemia, COPD, diabetes, hypothyroidism, CVA, chronic kidney disease, nonobstructive coronary artery disease, severe aortic stenosis, obstructive sleep apnea, chronic heart failure with preserved ejection fraction, and pleural effusion with right-sided thoracentesis in July 2021. Patient follows in the office with Dr. Hernandez. We have been asked to see the patient in consultation for syncope. Patient presents emergency department with complaints of incontinence episode. She states that she was out to lunch with her son and she had sudden onset bowel incontinence. She went into the bathroom and she said that EMS was called and brought her to the ER. She denies lightheadedness dizziness, loss of consciousness. She denies any syncope or near syncope at that time. She states that on 03/18/22, she did have a syncopal episode where she states she got out of bed in the morning and then woke up on the ground, unknown downtime, she did not seek medical attention. She then came to the ER on 03/20. She also states she fractured her back which this was on 01/2022. DIAGNOSTICS * EKG reveals sinus bradycardia, heart rate 53, nonspecific T-wave abnormalitie s. * Laboratory data: Troponin negative, WBC 7.2, hemoglobin 9.0, platelets 219, sodium 140, potassium 4.1, BUN 30, sodium 1.4, d-dimer 1.7 * VQ scan- low probability for pulmonary embolism * Current home cardiac medications include Eliquis 2.5mg BID, lisinopril 40 mg daily, hydralazine 75 mg 3 times a day, carvedilol 12.5 mg twice a day, Imdur 60 mg daily, Lasix 40 mg twice a day, aspirin 81 mg daily, atorvastatin 80 mg at night * Echocardiogram completed in October 2021 revealed ejection fraction 55-60%, severe aortic stenosis with a peak/mean gradient of 48 mmHg/34 mmHg, moderate mitral regurgitation, mild tricuspid regurgitation, mild pulmonary hypertension with RVSP of 39 mmHg * Cardiac catheterization history: October 2021 revealed calcified aortic valve and mitral annulus, mild coronary artery disease, severe aortic stenosis, and mild pulmonary hypertension * Patient underwent BURKE and October 2021 revealing normal left ventricular size and systolic function, severely calcified aortic valve with moderate aortic stenosis by mean gradient and severe by planimetry, moderate mitral and tricuspid regurgitation, moderate to severe pulmonary hypertension and no shunting across the interatrial septum. REVIEW OF SYSTEMS: At the time of my exam: CONSTITUTIONAL: Denies fever or chills. HEENT: Denies blurred vision, vision changes, or eye pain. Denies hemoptysis CARDIOVASCULAR: Denies chest pain. Denies orthopnea. Denies PND. Denies palpitations RESPIRATORY: Denies shortness of breath. GASTROINTESTINAL: Denies abdominal pain. Denies nausea or vomiting. HEMATOLOGIC: Denies bleeding disorders. GENITOURINARY: Denies any blood in urine. SKIN: Denies pruitis. Denies rash. PHYSICAL EXAM: VITAL SIGNS: Reviewed. GENERAL: Well-developed in no acute distress. HEENT: Head is normocephalic. Pupils are equal, round. Sclerae anicteric. Mucous membranes of the mouth are moist. Neck supple. No JVD LUNGS: Respirations even and unlabored. Lungs essentially clear to auscultation bilaterally. HEART: Regular rate and rhythm. S1 and S2 heard. Systolic ejection murmur noted at right sternal border ABDOMEN: Soft. Nondistended. Nontender. EXTREMITIES: Normal range of motion. No clubbing or cyanosis. Peripheral pulses intact. No lower extremity edema NEUROLOGIC: Awake and alert. Oriented x 3. ASSESSMENT: Episode of bowel incontinence Severe aortic stenosis History of syncopal episodes Recent T12 compression fracture in 01/2022 Chronic heart failure with preserved ejection fraction Paroxysmal atrial fibrillation on Eliquis History of Hypertension Hyperlipidemia Nonobstructive coronary artery disease Obstructive sleep apnea Chronic kidney disease COPD History of pneumonia History of pleural effusion with right-sided thoracentesis in July 2021 PLAN: Patient was evaluated in the TAVR clinic. She was initially seen in December 06, at that point because she continued to have hypertensive urgency was recommended to get her blood pressure under control and the patient will be evaluated again. Her blood pressure improved she was evaluated again and her symptoms resolved, she was asymptomatic and recommended continue to monitor patient's aortic stenosis. Continue current cardiac medications at this time Further recommendations based on evaluation by Dr. Culp. Nurse practitioner note has been reviewed by physician. Signing provider agrees with the documented findings, assessment, and plan of care. Past Medical History Past Medical History: Atrial Fibrillation, Cancer, Chest Pain / Angina, Heart Failure, COPD, CVA/TIA, Diabetes Mellitus, Hyperlipidemia, Hypertension, Osteoarthritis (OA), Pneumonia, Renal Disease, Sleep Apnea/CPAP/BIPAP, Syncope, Thyroid Disorder Additional Past Medical History / Comment(s): Stage III Kidney Disease, hx Pneumonia with Sepsis, no CPAP use (family states she hasn't been out of the hospital long enough to get a CPAP machine), Vitamin D Deficiency, chronic low back pain, frequent constipation, hx skin cancer, neuropathy History of Any Multi-Drug Resistant Organisms: None Reported Past Surgical History: Adenoidectomy, Back Surgery, Bariatric Surgery, Cholecystectomy, Heart Catheterization, Hysterectomy, Tonsillectomy Additional Past Surgical History / Comment(s): Cardiac caths , lap band placed/since removed, low back surgery, L carpal tunnel release X2, skin cancer removal, colonoscopies, bilateral cataract removals/lens implants. Past Anesthesia/Blood Transfusion Reactions: Previous Problems w/ Anesthesia Additional Past Anesthesia/Blood Transfusion Reaction / Comment(s): "Had too much anesthesia in 2007 for lap band removal, had to be bagged." Past Psychological History: Depression Additional Psychological History / Comment(s): Pt resides alone. Pt uses a walker. Smoking Status: Never smoker Past Alcohol Use History: None Reported Past Drug Use History: None Reported - Past Family History Sister(s) Family Medical History: Myocardial Infarction ([place]) Brother(s) Family Medical History: Cancer Additional Family Medical History / Comment(s): Colon Cancer. Mother Family Medical History: Dementia Additional Family Medical History / Comment(s): Mother of dementia at the age of 89yrs. Father Family Medical History: Cancer Additional Family Medical History / Comment(s): Pt states her father was treated for a sinus infection but really had leukemia and of this at the age of 72 yrs. Medications and Allergies Home Medications Medication Instructions Recorded Confirmed Type Atorvastatin [Lipitor] 80 mg PO HS 06/30/18 03/20/22 History Potassium Chloride ER [K-Dur 20] 20 meq PO DAILY 08/06/21 03/20/22 History Sertraline [Zoloft] 25 mg PO DAILY 08/30/21 03/20/22 History Artificial Tears-Hypromellose 1 drop BOTH EYES TID PRN 09/24/21 03/20/22 History [Artificial Tear Drops] Docusate [Colace] 100 mg PO DAILY 09/24/21 03/20/22 History Isosorbide Mononitrate ER [Imdur] 60 mg PO DAILY 09/24/21 03/20/22 History Multivit-Min/Iron/Folic/Lutein 1 tab PO DAILY 09/24/21 03/20/22 History [Centrum Silver Women Tablet] Apixaban [Eliquis] 2.5 mg PO BID@0700,1600 12/01/21 03/20/22 History Aspirin [Adult Low Dose Aspirin EC] 81 mg PO DAILY 12/01/21 03/20/22 History Levothyroxine Sodium [Synthroid] 125 mcg PO DAILY 12/01/21 03/20/22 History Magnesium Oxide [Mag-Ox] 400 mg PO DAILY 12/01/21 03/20/22 History Melatonin [Melatonin ER] 10 mg PO HS 12/01/21 03/20/22 History polyethylene glycoL 3350 [Miralax] 17 gm PO DAILY 12/01/21 03/20/22 History busPIRone HCl [Buspar] 10 mg PO Q8H #90 tab 12/02/21 03/20/22 Rx lisinopriL 40 mg PO DAILY 12/19/21 03/20/22 History Acetaminophen Tab [Tylenol] 650 mg PO Q4H PRN #60 tab 12/21/21 03/20/22 Rx Insuln Asp Prt/Insulin Aspart 20 unit SQ AC-SUPPER 30 Days #5 12/21/21 03/20/22 Rx [NovoLOG MIX 70-30 VIAL] each Insuln Asp Prt/Insulin Aspart 30 unit SQ AC-BRKFST 30 Days #5 12/21/21 03/20/22 Rx [NovoLOG MIX 70-30 VIAL] each carvediloL [Coreg*] 12.5 mg PO BID-W/MEALS 30 Days #60 12/21/21 03/20/22 Rx tab hydrALAZINE HCL [Apresoline] 100 mg PO TID tab 02/15/22 03/20/22 Rx Ferrous Sulfate [Feosol] 325 mg PO BID 03/02/22 03/20/22 History Allergies Allergy/AdvReac Type Severity Reaction Status Date / Time azithromycin Allergy Rash/Hives Verified 03/20/22 18:32 [From Zithromax Z-Jeanmarie] methylprednisolone Allergy Rash/Hives Verified 03/20/22 18:32 [From Medrol] sulfamethoxazole Allergy Rash/Hives Verified 03/20/22 18:32 [From Bactrim] trimethoprim [From Bactrim] Allergy Rash/Hives Verified 03/20/22 18:32 hydrochlorothiazide AdvReac lost Verified 03/20/22 18:32 balance and fell hydrocodone AdvReac Hallucinati Verified 03/20/22 18:32 ons Physical Exam Vitals: Vital Signs Temp Pulse Pulse Pulse Pulse Pulse Resp 03/21/22 08:00 98.2 F 58 L 60 62 58 L 18 03/21/22 04:00 68 16 03/21/22 01:00 98.1 F 57 L 16 03/20/22 23:15 98.4 F 59 L 16 03/20/22 21:34 97.8 F 70 16 03/20/22 19:32 98.8 F 58 L 16 03/20/22 18:09 53 L 15 03/20/22 15:49 97.1 F L 53 L 15 BP BP BP BP BP Pulse Ox 03/21/22 08:00 167/72 157/67 148/61 148/61 99 03/21/22 04:00 131/70 92 L 03/21/22 01:00 178/72 98 03/20/22 23:15 153/81 94 L 03/20/22 21:34 143/62 96 03/20/22 19:32 152/71 96 03/20/22 18:09 172/71 100 03/20/22 15:49 120/53 99 Intake and Output 03/20/22 03/21/22 03/21/22 22:59 06:59 14:59 Intake Total 485 90 Balance 485 90 Intake: Oral 485 90 Other: Voiding Method Toilet Toilet # Voids 1 1 Weight 89.358 kg 89.358 kg Results 03/22/22 08:55 03/22/22 08:55 Cardiac Enzymes 03/20/22 03/20/22 Range/Units 16:50 16:50 AST 18 (14-36) U/L Troponin I 0.013 (0.000-0.034) ng/mL CBC 03/20/22 Range/Units 16:50 WBC 7.9 (3.8-10.6) k/uL RBC 3.57 L (3.80-5.40) m/uL Hgb 9.7 L (11.4-16.0) gm/dL Hct 31.3 L (34.0-46.0) % Plt Count 263 (150-450) k/uL Comprehensive Metabolic Panel 03/20/22 Range/Units 16:50 Sodium 135 L (137-145) mmol/L Potassium 4.8 (3.5-5.1) mmol/L Chloride 103 (98-107) mmol/L Carbon Dioxide 25 (22-30) mmol/L BUN 39 H (7-17) mg/dL Creatinine 1.57 H (0.52-1.04) mg/dL Glucose 265 H (74-99) mg/dL Calcium 8.7 (8.4-10.2) mg/dL AST 18 (14-36) U/L ALT 17 (4-34) U/L Alkaline Phosphatase 113 (38-126) U/L Total Protein 6.0 L (6.3-8.2) g/dL Albumin 3.5 (3.5-5.0) g/dL Current Medications Generic Name Dose Route Start Last Admin Trade Name Freq PRN Reason Stop Dose Admin Acetaminophen 650 mg 03/20/22 19:44 Acetaminophen Tab 325 Mg Tab PO Q6HR PRN Mild Pain or Fever > 100.5 Apixaban 2.5 mg 03/21/22 07:00 03/21/22 06:44 Apixaban 2.5 Mg Tablet PO 2.5 mg BID@0700,1600 [facility] Administration Protocol Artificial Tears 1 drops 03/20/22 19:46 Artificial Tears-Hypromellose Drops 15 Ml Btl BOTH EYES TID PRN Dry Eye(s) Aspirin 81 mg 03/21/22 09:00 03/21/22 09:43 Aspirin 81 Mg PO 81 mg DAILY [facility] Administration Atorvastatin Calcium 80 mg 03/20/22 21:00 03/20/22 21:31 Atorvastatin 80 Mg Tab PO 80 mg HS [facility] Administration Buspirone HCl 10 mg 03/20/22 21:00 03/21/22 09:43 Buspirone Hcl 10 Mg Tab PO 10 mg Q8HR [facility] Administration Carvedilol 12.5 mg 03/21/22 07:30 03/21/22 06:44 Carvedilol 12.5 Mg Tab PO 12.5 mg BID-W/MEALS [facility] Administration Docusate Sodium 100 mg 03/21/22 09:00 03/21/22 11:02 Docusate 100 Mg Cap PO Not Given DAILY [facility] Ferrous Sulfate 325 mg 03/20/22 21:00 03/21/22 09:43 Ferrous Sulfate 325 Mg Tab PO 325 mg BID [facility] Administration Hydralazine HCl 50 mg 03/22/22 09:00 Hydralazine Hcl 50 Mg Tab PO TID [facility] Insulin Aspart 30 unit 03/21/22 07:30 03/21/22 06:44 Insuln Asp Prt/Insulin Aspart 100 Unit/Ml 10 Ml Vial SQ 30 unit AC-BRKFST [facility] Administration Insulin Aspart 20 unit 03/21/22 17:30 Insuln Asp Prt/Insulin Aspart 100 Unit/Ml 10 Ml Vial SQ AC-SUPPER [facility] Isosorbide Mononitrate 60 mg 03/21/22 09:00 03/21/22 09:43 Isosorbide Mononitrate Er 60 Mg Tab.Er.24h PO 60 mg DAILY [facility] Administration Levothyroxine Sodium 125 mcg 03/21/22 06:30 03/21/22 06:44 Levothyroxine 125 Mcg Tab PO 125 mcg DAILY@0630 [facility] Administration Lisinopril 20 mg 03/22/22 09:00 Lisinopril 20 Mg Tab PO DAILY [facility] Magnesium Oxide 400 mg 03/21/22 09:00 03/21/22 09:43 Magnesium Oxide 400 Mg Tab PO 400 mg DAILY [facility] Administration Melatonin 10 mg 03/20/22 21:00 03/20/22 21:31 Melatonin 5 Mg Tablet PO 10 mg HS [facility] Administration Multivitamins 1 each 03/21/22 09:00 03/21/22 09:43 Multivitamins, Thera 1 Each Tab PO 1 each DAILY [facility] Administration Naloxone HCl 0.2 mg 03/20/22 19:44 Naloxone 0.4 Mg/Ml 1 Ml Vial IV Q2M PRN Opioid Reversal Ondansetron HCl 4 mg 03/20/22 19:44 Ondansetron 4 Mg/2 Ml Vial IVP Q8HR PRN Nausea And Vomiting Polyethylene Glycol 17 gm 03/21/22 09:00 03/21/22 11:02 Polyethylene Glycol 3350 17 Gm Powd.Pack PO Not Given DAILY [facility] Potassium Chloride 20 meq 03/21/22 09:00 03/21/22 09:43 Potassium Chloride Er 20 Meq Tab.Er PO 20 meq DAILY [facility] Administration Sertraline HCl 25 mg 03/21/22 09:00 03/21/22 09:43 Sertraline 25 Mg Tab PO 25 mg DAILY [facility] Administration Intake and Output 03/20/22 03/21/22 03/21/22 22:59 06:59 14:59 Intake Total 485 90 Balance 485 90 Intake: Oral 485 90 Other: Voiding Method Toilet Toilet # Voids 1 1 Weight 89.358 kg 89.358 kg 03/20/22 16:50 03/20/22 16:50
[2022-03-22] MEDS ORDERED: CALCIUM CARBONATE 500 MG CHEWABLE PO PRN (11:50)
[2022-03-22 11:55] LABS: Glucose,Whole Blood 204 mg/dL (70-110)
--- NOTE | 2022-03-22 11:57 | P.PN ---
Subjective Progress Note Date: 03/22/22 The patient is seen at bedside and feels she is doing well. Denies any further episode of syncopal episodes. Objective - Vital Signs Vital signs: Vital Signs Temp 97.8 F 03/22/22 11:43 Pulse 56 L 03/22/22 11:44 Resp 18 03/22/22 11:43 BP 143/51 03/22/22 11:43 Pulse Ox 96 03/22/22 11:43 FiO2 Intake & Output 03/21/22 03/22/22 03/22/22 18:59 06:59 18:59 Intake Total 330 118 Output Total 450 Balance -120 118 Intake: Oral 330 118 Output: Urine 450 Other: Voiding Method Toilet Toilet # Voids 1 1 # Bowel Movements 1 - Exam GENERAL: The patient is a obese woman lying in bed and is not in acute distress. NEUROLOGICAL: Higher mental function: The patient is awake, alert, oriented to self, place and time. Patient is following commands. No aphasia and no neglect. Cranial nerves: The pupils are round, equal and reactive to light and accommodation. Visual gomez are full to confrontation throughout. Extraocular movement is intact no nystagmus is noted. Facial sensation is normal to touch t hroughout. The facial strength is normal throughout. Hearing is mildly decreasedl bilaterally to hand rub. Tongue is midline and moved [id number] without any difficulty. No dysarthria is noted. Shoulder shrug is normal bilaterally. Motor: Gait is deferred. The strength is 5 over 5 throughout. Has old fracture on last two digits of the right hand from prior fall. Normal tone and bulk. Cerebellum: Normal finger to nose bilaterally. Sensation: Sensation is normal to touch throughout. Reflexes (right/left): 1+ throughout Plantars are mute bilaterally. Some of the workup during this hospital visit consisted of: Urinalysis seems the possible suggestive of urinary tract infection CT of the head is reported as cerebral atrophy. No acute intracranial abnormality. No change. I personally reviewed the CT of the head and there is no acute subacute ischemic changes and there is no intracranial hemorrhage. Routine EEG: Normal. There is no focal slowing, epileptiform discharges or seizure on the EEG. - Labs CBC & Chem 7: 03/22/22 08:55 03/22/22 08:55 Labs: Abnormal Lab Results - Last 24 Hours (Table) 03/21/22 03/21/22 03/22/22 Range/Units 16:18 20:13 06:07 RBC (3.80-5.40) m/uL Hgb (11.4-16.0) gm/dL Hct (34.0-46.0) % MCHC (31.0-37.0) g/dL Chloride (98-107) mmol/L BUN (7-17) mg/dL Creatinine (0.52-1.04) mg/dL Glucose (74-99) mg/dL POC Glucose (mg/dL) 292 H 314 H 149 H (70-110) mg/dL Calcium (8.4-10.2) mg/dL 03/22/22 03/22/22 Range/Units 08:55 08:55 RBC 3.36 L (3.80-5.40) m/uL Hgb 9.0 L (11.4-16.0) gm/dL Hct 29.7 L (34.0-46.0) % MCHC 30.4 L (31.0-37.0) g/dL Chloride 111 H (98-107) mmol/L BUN 30 H (7-17) mg/dL Creatinine 1.47 H (0.52-1.04) mg/dL Glucose 232 H (74-99) mg/dL POC Glucose (mg/dL) (70-110) mg/dL Calcium 8.0 L (8.4-10.2) mg/dL Microbiology - Last 24 Hours (Table) 03/20/22 16:50 Urine Culture - Preliminary Urine,Clean Catch Gram Neg Bacilli Assessment and Plan Assessment: Presyncopal episodes with history of Recurrent syncopal episodes due to severe aortic stenosis Severe symptomatic aortic stenosis Possible acute UTI Paroxysmal atrial fibrillation on eliquis Diabetes mellitus Chronic kidney insufficiency Hypothyroidism Sleep apnea Obesity Plan: EEG is normal. As I stated in my impression I feel her recurrent syncopal episodes are due to her severe aortic stenosis. Cardiology is on board. Patient is evaluated in the TAVR clinic in past and will defer further management to them. We'll defer the rest of the medical management to the primary team The plan is discussed with the patient. There is no further neurological work-up. Neurology will sign off. Please reconsult if needed. Gilbert Mays M.D. Neuro-Hospitalist Time with Patient: Less than 30
--- NOTE | 2022-03-22 14:42 | P.PN ---
Subjective Progress Note Date: 03/22/22 Patient is a pleasant 81-year-old female with history of severe aortic stenosis proximal atrial fibrillation on Eliquis came in with a near syncopal episode patient had similar episodes in the past neurology was consulted with concerns of seizures although patient doesn't have any seizures at this time. Patient apparently was evaluated by cardiac thoracic surgery in the past for aortic valve replacement and apparently she was told she is not a candidate for replacement. Patient the was dizzy diaphoretic with bowel incontinence. Patient blood pressure is low normal today at this time. Patient is on multiple medications including lisinopril and hydralazine. Patient does have chronic kidney disease with elevated creatinine of 1.57. This is her baseline. Patient is bit hyponatremic patient was receiving IV fluids. Patient had normal ejection fraction the past possibly of diastolic dysfunction though presently not in heart failure exacerbation. 03/22/2022 Patient evaluated today resting in bed. She is pending cardiology evaluation. She is hoping to have intervention regarding aortic valve. She has been evaluated by cardiothoracic in November for possible TAVR, and recommened to get blood pressure under control. She has been in the 140's/60s, sinus loc to sinus rhythm. She reports episode of bowel incontinence which prompted ER visit. White count 7.2, hgb 9.0, sodium 140, potassium 4.1, BUN 30, creatinine 1.47 today. Blood glucose in the 200s. Urine culture showing gram negative bacilli. She does have some umbilical tenderness but also states she has abdominal hernia. EEG is negative for seizure activity. Pending further recommendations from cardiology. Review of Systems Constitutional: Denied any fatigue denied any fever. Cardio vascular: denied any chest pain, palpitations Gastrointestinal: denied any nausea, vomiting, diarrhea, no BM. Pulmonary: Denied any shortness of breath cough Neurologic denied any new focal deficits All inpatient medications were reviewed and appropriate changes in these medications as dictated in the interval history and assessment and plan. PHYSICAL EXAMINATION: GENERAL: The patient is alert and oriented x3, not in any acute distress. Well developed, well nourished. HEENT: Pupils are round and equally reacting to light. EOMI. No scleral icterus. No conjunctival pallor. Normocephalic, atraumatic. No pharyngeal erythema. No thyromegaly. CARDIOVASCULAR: S1 and S2 present. No rubs, or gallops. Systolic murmur in the aortic area PULMONARY: Chest is clear to auscultation, no wheezing or crackles. ABDOMEN: Soft, nontender, nondistended, normoactive bowel sounds. No palpable organomegaly. MUSCULOSKELETAL: No joint swelling or deformity. EXTREMITIES: No cyanosis, clubbing, or pedal edema. NEUROLOGICAL: Gross neurological examination did not reveal any focal deficits. SKIN: No rashes. Assessment and plan -Near syncopal episode probably secondary to severe aortic stenosis along with hypotension. -Asymptomatic bacteriuria patient will not require any antibiotics at this time -Type 2 diabetes mellitus patient will be resumed on home regimen diabetic diet -Chronic kidney disease secondary to diabetic nephropathy patient has stage III chronic kidney disease -Hypertension -Congestive heart failure chronic diastolic dysfunction without any acute exacerbation -Ruled out pulmonary embolism -History of atrial fibrillation probably paroxysmal -Hyperlipidemia -Hypertension -Sleep apnea on CPAP machine -Hypothyroidism GI prophylaxis DVT prophylaxis: On Eliquis at this time Full Code Plan Continue current medications. Pending final urine culture, monitor off antibiotics for now. Adjust insulin. Check bladder scan. Repeat BMP tomorrow. Pending further recommendations from cardiology. Patient would like reconsul tation with cardiothoracic regarding aortic stenosis and intervention while in the hospital. No further episodes of bowel incontinence, diarrhea. The impression and plan of care has been dictated by Taylor Pierce, Nurse Practitioner as directed. Dr. Tio MD I have performed a history and physical examination and medical decision making of this patient, discussed the same with the dictator, and agree with the dictators assessment and plan as written, documented as a scribe. Based on total visit time, I have performed more than 50% of this visit. Objective - Vital Signs Vital signs: Vital Signs Temp 97.8 F 03/22/22 11:43 Pulse 56 L 03/22/22 11:44 Resp 18 03/22/22 11:43 BP 143/51 03/22/22 11:43 Pulse Ox 96 03/22/22 11:43 FiO2 Intake & Output 03/21/22 03/22/22 03/22/22 18:59 06:59 18:59 Intake Total 330 118 Output Total 450 Balance -120 118 Intake: Oral 330 118 Output: Urine 450 Other: Voiding Method Toilet Toilet # Voids 1 1 # Bowel Movements 1 - Labs CBC & Chem 7: 03/22/22 08:55 03/22/22 08:55 Labs: Abnormal Lab Results - Last 24 Hours (Table) 03/21/22 03/21/22 03/22/22 Range/Units 16:18 20:13 06:07 RBC (3.80-5.40) m/uL Hgb (11.4-16.0) gm/dL Hct (34.0-46.0) % MCHC (31.0-37.0) g/dL Chloride (98-107) mmol/L BUN (7-17) mg/dL Creatinine (0.52-1.04) mg/dL Glucose (74-99) mg/dL POC Glucose (mg/dL) 292 H 314 H 149 H (70-110) mg/dL Calcium (8.4-10.2) mg/dL 03/22/22 03/22/22 03/22/22 Range/Units 08:55 08:55 11:49 RBC 3.36 L (3.80-5.40) m/uL Hgb 9.0 L (11.4-16.0) gm/dL Hct 29.7 L (34.0-46.0) % MCHC 30.4 L (31.0-37.0) g/dL Chloride 111 H (98-107) mmol/L BUN 30 H (7-17) mg/dL Creatinine 1.47 H (0.52-1.04) mg/dL Glucose 232 H (74-99) mg/dL POC Glucose (mg/dL) 204 H (70-110) mg/dL Calcium 8.0 L (8.4-10.2) mg/dL Microbiology - Last 24 Hours (Table) 03/20/22 16:50 Urine Culture - Preliminary Urine,Clean Catch Gram Neg Bacilli Assessment and Plan Time with Patient: Less than 30
[2022-03-22] MEDS ORDERED: DEXTROSE 50% SYRINGE 50 ML IVP PRN ×2 (14:44)
[2022-03-22 17:08] LABS: Glucose,Whole Blood 165 mg/dL (70-110)
[2022-03-22] MEDS ORDERED: carvediloL 6.25 MG TAB PO SCH (17:30)
[2022-03-22] MEDS: INSULIN ASPART (NovoLOG) 100 UNIT/ML VIAL SQ SCH ×2 (17:33→22:10)
[2022-03-22] MEDS: carvediloL 6.25 MG TAB PO SCH (17:33)
[2022-03-22 20:19] LABS: Glucose,Whole Blood 163 mg/dL (70-110)
[2022-03-22] MEDS ORDERED: FAMOTIDINE 20 MG TAB PO SCH (21:00)
[2022-03-22] MEDS: MELATONIN 5 MG TABLET PO SCH (22:08)
[2022-03-22] MEDS: ATORVASTATIN 80 MG TAB PO SCH (22:09)
[2022-03-23 00:22] VITALS: RESP 18
[2022-03-23] MEDS: busPIRone HCl 10 MG TAB PO SCH ×3 (00:23→17:42)
[2022-03-23 06:07] LABS: Glucose,Whole Blood 201 mg/dL (70-110)
[2022-03-23] MEDS: INSULN ASP PRT/INSULIN ASPART 100 UNIT/ML 10 ML VIAL SQ SCH ×2 (06:27→17:44)
[2022-03-23] MEDS: APIXABAN 2.5 MG TABLET PO SCH ×2 (06:28→17:42)
[2022-03-23] MEDS: LEVOTHYROXINE 125 MCG TAB PO SCH (06:28)
[2022-03-23] MEDS: carvediloL 6.25 MG TAB PO SCH ×2 (06:28→17:42)
[2022-03-23] MEDS: INSULIN ASPART (NovoLOG) 100 UNIT/ML VIAL SQ SCH ×3 (07:03→17:44)
[2022-03-23] MEDS: MAGNESIUM OXIDE 400 MG TAB PO SCH (09:28)
[2022-03-23] MEDS: hydrALAZINE HCL 50 MG TAB PO SCH ×2 (09:28→17:42)
[2022-03-23] MEDS: SERTRALINE 25 MG TAB PO SCH (09:28)
[2022-03-23] MEDS: lisinopriL 20 MG TAB PO SCH (09:28)
[2022-03-23] MEDS: POTASSIUM CHLORIDE ER 20 MEQ TAB.ER PO SCH (09:28)
[2022-03-23] MEDS: FERROUS SULFATE 325 MG TAB PO SCH (09:28)
[2022-03-23] MEDS: ISOSORBIDE MONONITRATE ER 60 MG TAB.ER.24H PO SCH (09:28)
[2022-03-23] MEDS: DOCUSATE 100 MG CAP PO SCH (09:28)
[2022-03-23] MEDS: ASPIRIN 81 MG PO SCH (09:28)
[2022-03-23] MEDS: MULTIVITAMINS, THERA 1 EACH TAB PO SCH (09:28)
[2022-03-23 09:49] LABS: Calcium 7.8 mg/dL (8.4-10.2); Potassium 4.4 mmol/L (3.5-5.1)
[2022-03-23 11:43] LABS: Glucose,Whole Blood 153 mg/dL (70-110)
[2022-03-23] MEDS ORDERED: LACTULOSE 20 GM/30 ML CUP PO PRN (11:53)
[2022-03-23] MEDS ORDERED: LACTULOSE 20 GM/30 ML CUP PO SCH (12:15)
--- NOTE | 2022-03-23 13:34 | P.PN ---
Subjective This is a 81 year old female with a past medical history significant for paroxysmal atrial fibrillation, hypertension, hyperlipidemia, COPD, diabetes, hypothyroidism, CVA, chronic kidney disease, nonobstructive coronary artery disease, severe aortic stenosis, obstructive sleep apnea, chronic heart failure with preserved ejection fraction, and pleural effusion with right-sided thoracentesis in July 2021. Patient follows in the office with Dr. Hernandez. We have been asked to see the patient in consultation for syncope. Patient presents emergency department with complaints of incontinence episode. She states that she was out to lunch with her son and she had sudden onset bowel incontinence. She went into the bathroom and she said that EMS was called and brought her to the ER. She denies lightheadedness dizziness, loss of consciousness. She denies any syncope or near syncope at that time. She states that on 03/18/22, she did have a syncopal episode where she states she got out of bed in the morning and then woke up on the ground, unknown downtime, she did not seek medical attention. She then came to the ER on 03/20. She also states she fractured her back which this was on 01/2022. 03/23/2022 Patient seen and examined at bedside, no acute distress. Her main complaint she states is constipation. She denies any lightheadedness, dizziness, shortness of breath, chest pain. Her vital signs are stable. She is currently maintaining sinus mechanism with heart rates in the 50s60s. PHYSICAL EXAM: VITAL SIGNS: Reviewed. GENERAL: Well-developed in no acute distress. HEENT: Head is normocephalic. Neck supple. No JVD LUNGS: Respirations even and unlabored. Lungs essentially clear to auscultation bilaterally. HEART: Regular rate and rhythm. S1 and S2 heard. Systolic ejection murmur noted at right sternal border ABDOMEN: Soft. Nondistended. Nontender. EXTREMITIES: Normal range of motion. No clubbing or cyanosis. Peripheral pulses intact. No lower extremity edema NEUROLOGIC: Awake and alert. Oriented x 3. ASSESSMENT: Episode of bowel incontinence Severe aortic stenosis History of syncopal episodes Recent T12 compression fracture in 01/2022 Chronic heart failure with preserved ejection fraction Paroxysmal atrial fibrillation on Eliquis History of Hypertension Hyperlipidemia Nonobstructive coronary artery disease Obstructive sleep apnea Chronic kidney disease COPD History of pneumonia History of pleural effusion with right-sided thoracentesis in July 2021 PLAN: Patient was evaluated in the TAVR clinic. She was initially seen in December 06, at that point because she continued to have hypertensive urgency was recommended to get her blood pressure under control and the patient will be evaluated again. Her blood pressure improved she was evaluated again and her symptoms resolved, she was asymptomatic and recommended continue to monitor patient's aortic stenosis. Continue current cardiac medications at this time From a cardiology perspective, patient can be discharged home, further evaluation of aortic stenosis outpatient Follow up with Dr. Hernandez, appointment rescheduled for 03/27. Nurse practitioner note has been reviewed by physician. Signing provider agrees with the documented findings, assessment, and plan of care. Objective - Vital Signs Vital signs: Vital Signs Temp 97.6 F 03/23/22 09:08 Pulse 59 L 03/23/22 09:08 Resp 18 03/23/22 09:08 BP 177/70 03/23/22 09:08 Pulse Ox 95 03/23/22 09:08 FiO2 Intake & Output 03/22/22 03/23/22 03/23/22 18:59 06:59 18:59 Intake Total 236 180 420 Balance 236 180 420 Intake: Oral 236 180 420 Other: Voiding Method Toilet # Voids 3 - Labs CBC & Chem 7: 03/22/22 08:55 03/23/22 08:41 Labs: Abnormal Lab Results - Last 24 Hours (Table) 03/22/22 03/22/22 03/23/22 Range/Units 16:50 20:17 06:06 Chloride (98-107) mmol/L BUN (7-17) mg/dL Creatinine (0.52-1.04) mg/dL Glucose (74-99) mg/dL POC Glucose (mg/dL) 165 H 163 H 201 H (70-110) mg/dL Calcium (8.4-10.2) mg/dL 03/23/22 03/23/22 Range/Units 08:41 11:41 Chloride 110 H (98-107) mmol/L BUN 27 H (7-17) mg/dL Creatinine 1.36 H (0.52-1.04) mg/dL Glucose 231 H (74-99) mg/dL POC Glucose (mg/dL) 153 H (70-110) mg/dL Calcium 7.8 L (8.4-10.2) mg/dL Microbiology - Last 24 Hours (Table) 03/20/22 16:50 Urine Culture - Final Urine,Clean Catch Klebsiella pneumoniae Escherichia coli
[2022-03-23 16:25] LABS: Glucose,Whole Blood 171 mg/dL (70-110)
[2022-03-23 17:49] VITALS: BP 176/77; PULSE 61; TEMP 97.3
--- NOTE | 2022-03-24 00:03 | P.DS ---
Providers Date of admission: 03/20/22 19:44 Attending physician: Anmol Soto Consults: 03/20/22 19:44 Consult Physician Routine Consulting Provider: Gilbert Mays Consult Reason/Comments: Near-syncope, dizziness Do you want consulting provider notified?: Yes 03/21/22 09:37 Consult Physician Urgent Consulting Provider: Juancho Culp Consult Reason/Comments: near syncope, aortic stenosis Do you want consulting provider notified?: Yes Primary care physician: Dontae Dawn Hospital Course: Final Diagnosis -Near syncopal episode probably secondary to severe aortic stenosis along with hypotension patient did present with mild dehydration -Asymptomatic bacteriuria patient will not require any antibiotics at this time -Type 2 diabetes mellitus patient will be resumed on home regimen diabetic diet -Chronic kidney disease secondary to diabetic nephropathy patient has stage III chronic kidney disease -Hypertension -Congestive heart failure chronic diastolic dysfunction without any acute exacerbation -Ruled out pulmonary embolism -History of atrial fibrillation probably paroxysmal -Hyperlipidemia -Hypertension -Sleep apnea on CPAP machine -Hypothyroidism Full Code Discharge Disposition Patient will be discharged home today, with guarded prognosis. She does have ongoing reports of syncope outpatient. Currently orthostatic blood pressures are negative, she reports no dizziness with ambulation. Labs have normalized after hydration. Cardiology has evaluated the patient and cleared she does have follow up appointment with Dr Hernandez on SundayMarch 27 at 1015 am. She also was cleared by neurology. She will follow up with Cardiothoracic services outpatient. Hospital Course This is an 81 year old female with medical history significant for diabetes mellitus, hypertension, CHF, atrial fibrillation, hyperlipidemia, sleep apnea, hypothyroidism. She sees Henri Mejía MANAGER BUSINESS INTELLIGENCE at Dr Garcia office. She was admitted with Dr Dawn listed as PCP which is how she was evaluated under our services. Patient has history of known aortic stenosis which is suspected as probable cause of repeat episodes of near snycope. Patient is also on multiple blood pressure medications, she does continue with elevated BP. She was admitted to the hospital for near syncope and dehydration. On admission sodium 135, BUN 39, creatinine 1.57, blood glucose in the 200s, white count 7.9, hgb 9.7, D- Dimer 1.72. She also had mild lactic acidosis at 3.0 which improved to 0.9 with hydration. She denies urinary symptoms however urinalysis shows cloudy urine, large luekocyte esterase, 22 WBC, few bacteria, and urine culture was completed which finalized at E.Coli and Klebsiella pneumoniae and patient did receive IV ceftriaxone while inpatient and was discharge on 5 more days of oral ceftin. She had brain CT done which was negative, EEG completed which is negative for epiliptiform and seizure activity. KUB xray nondiagnostic, chest xray negative. Chest xray does show 30% anterior wedging of T 12 vertebral body related to compression fracture that has progressed slightly compared to xray from January 2022. Patient also had pulmonary perfusion imaging done which is negative for pulmonary embolism. Patient states that she has appointment sunday at 10 am at the outpatient surgery center in [place] for TAVR procedure. She also states she saw Dr De Leon in the office in November and was told she need to lower her blood pressure. She doesn't recall if she saw primary care or cardiology in the office since November. She is a poor historian. This was discussed with family on the phone who confirm that the patient told them she has the TAVR procedure scheduled this upcoming SundayMar.27. Discussed with cardiothoracic and patient does not have this procedure scheduled outpatient, she does have follow up appointment with Dr Hernandez on Sunday. Patient may be a good candidate for event monitor outpatient. 03/23/2022 Patient evaluated today resting in bed. She does complain of some constipation, she did have bowel movement this morning per nursing. She is discharged on lactulose as needed with instructions to hold for diarrhea. She will continue antibiotics for 5 more days. Follow up white count negative at 7.2. sodium 138, potassium 4.4, BUN 27, creatinine 1.36, blood glucose 170s, calcium 7.8. She denies chest pain, denies shortness of breath. Denies dizzines. She is tolerating diet no nausea or vomiting. Focal neurological exam is negative she is alert x 3. Discussed hospitalization, testing and discharge plan with patients daughter over the phone. Lungs are clear, S1 S2 auscultated she does have murmur present. Abdomen is soft and nontender, she has normoactive bowel sounds. No suprapubic tenderness. Patient will be discharged home with homecare services. Discussed with daughter importance of family accompanying patient to her doctors appointments. She has no episodes of syncope, presyncope and most recent orthostatic blood pressur was negative. Discussed the importance of sitting before standing to avoid postural blood pressure changes with patient. Please see medication reconciliation for a list of current medication. Thank you for allowing us to participate in the care of this patient. Total time take in discharge planning greater than 35 minutes. The impression and plan of care has been dictated by Taylor Pierce, Nurse Practitioner as directed. Dr. Tio MD I have performed a history and physical examination and medical decision making of this patient, discussed the same with the dictator, and agree with the dictators assessment and plan as written, documented as a scribe. Based on total visit time, I have performed more than 50% of this visit. Patient Condition at Discharge: Fair Plan - Discharge Summary Discharge Rx Participant: Yes New Discharge Prescriptions: New Cholecalciferol [Vitamin D3 (25 Mcg = 1000 Iu)] 50 mcg PO DAILY #60 tab cefUROXime axetiL [Ceftin] 500 mg PO BID 5 Days #10 tab Lactulose [Cephulac] 20 gm PO BID PRN #10 ml PRN Reason: Constipation Famotidine [Pepcid] 20 mg PO HS tab Calcium Carbonate [Tums] 500 mg PO QID PRN tab PRN Reason: Heartburn Continue Atorvastatin [Lipitor] 80 mg PO HS Sertraline [Zoloft] 25 mg PO DAILY Isosorbide Mononitrate ER [Imdur] 60 mg PO DAILY Multivit-Min/Iron/Folic/Lutein [Centrum Silver Women Tablet] 1 tab PO DAILY Melatonin [Melatonin ER] 10 mg PO HS Magnesium Oxide [Mag-Ox] 400 mg PO DAILY Aspirin [Adult Low Dose Aspirin EC] 81 mg PO DAILY Apixaban [Eliquis] 2.5 mg PO BID@0700,1600 lisinopriL 40 mg PO DAILY Insuln Asp Prt/Insulin Aspart [NovoLOG MIX 70-30 VIAL] 30 unit SQ AC-BRKFST 30 Days #5 each hydrALAZINE HCL [Apresoline] 100 mg PO TID tab Artificial Tears-Hypromellose [Artificial Tear Drops] 1 drop BOTH EYES TID PRN PRN Reason: Dry Eye(S) Docusate [Colace] 100 mg PO DAILY polyethylene glycoL 3350 [Miralax] 17 gm PO DAILY Levothyroxine Sodium [Synthroid] 125 mcg PO DAILY busPIRone HCl [Buspar] 10 mg PO Q8H #90 tab carvediloL [Coreg*] 12.5 mg PO BID-W/MEALS 30 Days #60 tab Insuln Asp Prt/Insulin Aspart [NovoLOG MIX 70-30 VIAL] 20 unit SQ AC-SUPPER 30 Days #5 each Acetaminophen Tab [Tylenol] 650 mg PO Q4H PRN #60 tab PRN Reason: Pain Ferrous Sulfate [Feosol] 325 mg PO BID Discontinued Potassium Chloride ER [K-Dur 20] 20 meq PO DAILY Discharge Medication List Atorvastatin [Lipitor] 80 mg PO HS 06/30/18 [History] Sertraline [Zoloft] 25 mg PO DAILY 08/30/21 [History] Artificial Tears-Hypromellose [Artificial Tear Drops] 1 drop BOTH EYES TID PRN 09/24/21 [History] Docusate [Colace] 100 mg PO DAILY 09/24/21 [History] Isosorbide Mononitrate ER [Imdur] 60 mg PO DAILY 09/24/21 [History] Multivit-Min/Iron/Folic/Lutein [Centrum Silver Women Tablet] 1 tab PO DAILY 0 09/24/21 [History] Apixaban [Eliquis] 2.5 mg PO BID@0700,1600 12/01/21 [History] Aspirin [Adult Low Dose Aspirin EC] 81 mg PO DAILY 12/01/21 [History] Levothyroxine Sodium [Synthroid] 125 mcg PO DAILY 12/01/21 [History] Magnesium Oxide [Mag-Ox] 400 mg PO DAILY 12/01/21 [History] Melatonin [Melatonin ER] 10 mg PO HS 12/01/21 [History] polyethylene glycoL 3350 [Miralax] 17 gm PO DAILY 12/01/21 [History] busPIRone HCl [Buspar] 10 mg PO Q8H #90 tab 12/02/21 [Rx] lisinopriL 40 mg PO DAILY 12/19/21 [History] Acetaminophen Tab [Tylenol] 650 mg PO Q4H PRN #60 tab 12/21/21 [Rx] Insuln Asp Prt/Insulin Aspart [NovoLOG MIX 70-30 VIAL] 20 unit SQ AC-SUPPER 30 Days #5 each 12/21/21 [Rx] Insuln Asp Prt/Insulin Aspart [NovoLOG MIX 70-30 VIAL] 30 unit SQ AC-BRKFST 30 Days #5 each 12/21/21 [Rx] carvediloL [Coreg*] 12.5 mg PO BID-W/MEALS 30 Days #60 tab 12/21/21 [Rx] hydrALAZINE HCL [Apresoline] 100 mg PO TID tab 02/15/22 [Rx] Ferrous Sulfate [Feosol] 325 mg PO BID 03/02/22 [History] Calcium Carbonate [Tums] 500 mg PO QID PRN tab 03/23/22 [Rx] Cholecalciferol [Vitamin D3 (25 Mcg = 1000 Iu)] 50 mcg PO DAILY #60 tab 03/23/22 [Rx] Famotidine [Pepcid] 20 mg PO HS tab 03/23/22 [Rx] Lactulose [Cephulac] 20 gm PO BID PRN #10 ml 03/23/22 [Rx] cefUROXime axetiL [Ceftin] 500 mg PO BID 5 Days #10 tab 03/23/22 [Rx] Follow up Appointment(s)/Referral(s): Renée Hernandez MD [STAFF PHYSICIAN] - 03/27/22 10:15 am Marianela Sheppard MD [STAFF PHYSICIAN] - 1-2 days (Call office to schedule appoitment. ) [facility], [NON-STAFF] - Patient Instructions/Handouts: Constipation (DC), Dehydration (GEN), Syncope (GEN) Activity/Diet/Wound Care/Special Instructions: continue antibiotics for UTI for 5 days Continue lactulose twice a day as needed for BM Hold if having diarrhea Follow up with primary care in 1 to 2 days Follow up with Cardiology appointment scheduled for March [address] Hernandez Recommend to change positions slowly when moving from sitting to standing to avoid dizziness. Discharge Disposition: HOME SELF-CARE
== END 2022-03-23 18:12 | disposition home or self-care (01) ==
LOC: EC 15:42 → 3SCARD 19:44
PROVIDERS: ADMIT Hospitalist; ATTEND Hospitalist
DX: R55 Syncope and collapse (principal); I35.0 Nonrheumatic aortic (valve) stenosis; E86.0 Dehydration; I13.0 Hypertensive heart and chronic kidney disease with heart failure and stage 1 through stage 4 chronic kidney disease, or unspecified chronic kidney disease; E11.22 Type 2 diabetes mellitus with diabetic chronic kidney disease; G47.33 Obstructive sleep apnea (adult) (pediatric); N18.30 Chronic kidney disease, stage 3 unspecified; J44.9 Chronic obstructive pulmonary disease, unspecified; E78.5 Hyperlipidemia, unspecified; E55.9 Vitamin D deficiency, unspecified; F32.A Depression, unspecified; D64.9 Anemia, unspecified; M48.54XA Collapsed vertebra, not elsewhere classified, thoracic region, initial encounter for fracture; E03.9 Hypothyroidism, unspecified; E87.1 Hypo-osmolality and hyponatremia; E66.9 Obesity, unspecified; I48.0 Paroxysmal atrial fibrillation; E11.21 Type 2 diabetes mellitus with diabetic nephropathy; E11.40 Type 2 diabetes mellitus with diabetic neuropathy, unspecified; I25.10 Atherosclerotic heart disease of native coronary artery without angina pectoris; I50.32 Chronic diastolic (congestive) heart failure; E87.2 Acidosis; Z86.73 Personal history of transient ischemic attack (TIA), and cerebral infarction without residual deficits; Z79.899 Other long term (current) drug therapy; Z79.01 Long term (current) use of anticoagulants; Z79.82 Long term (current) use of aspirin; Z79.890 Hormone replacement therapy; Z79.4 Long term (current) use of insulin; Z88.1 Allergy status to other antibiotic agents; Z85.828 Personal history of other malignant neoplasm of skin; Z90.49 Acquired absence of other specified parts of digestive tract; Z96.1 Presence of intraocular lens; Z90.710 Acquired absence of both cervix and uterus; Z82.49 Family history of ischemic heart disease and other diseases of the circulatory system; Z80.0 Family history of malignant neoplasm of digestive organs; Z80.6 Family history of leukemia; Z98.1 Arthrodesis status; Z82.0 Family history of epilepsy and other diseases of the nervous system; Z68.33 Body mass index [BMI] 33.0-33.9, adult
CPT/HCPCS: 99285; 36415; 95816; 93005; 85379; 80053; 80048 ×2; 82550; 83605; 83735; 84484; 85025 ×2; 81001; 87086; 87077; 87186; 71046; 74018; 70450; 78582; G0378 ×4; A9540; A9567; J0696

== ENCOUNTER → 2022-04-03 | Outpatient (CLI) | payer MEDICARE, OTHER | END | disposition home or self-care (01) | LOC: LABWHC1 13:31 | PROVIDERS: ATTEND Thoracic Surgery (Cardiothoracic Vascular Surgery) | DX: I35.0 Nonrheumatic aortic (valve) stenosis (principal); D64.9 Anemia, unspecified; D69.9 Hemorrhagic condition, unspecified; Z79.899 Other long term (current) drug therapy | CPT/HCPCS: 36415; 80048; 85025; 85610; 86850; 86900; 86901 ==

== ENCOUNTER 2022-04-05 06:34 | Inpatient (IN) | payer MEDICARE, OTHER ==
[2022-04-03 14:20] LABS: Prothrombin Time 11.1 sec (9.0-12.0)
[2022-04-03 18:46] LABS: Basophils # (A) 0.05 X 10*3/uL (0.00-0.10); Basophils % (A) 0.6 %; Eosinophils # (A) 0.65 X 10*3/uL (0.04-0.35); Eosinophils % (A) 7.4 %; HCT 29.6 % (37.2-46.3); HGB 8.9 g/dL (12.0-15.0); Immature Grans, Automated 1.9 %; Lymphocytes # (A) 1.15 X 10*3/uL (0.90-5.00); Lymphocytes % (A) 13.1 %; MCH 26.3 pg (27.0-32.0); MCHC 30.1 g/dL (32.0-37.0); MCV 87.3 fL (80.0-97.0); Mean Platelet Volume 10.7 fL (9.5-12.2); Monocytes # (A) 1.34 X 10*3/uL (0.20-1.00); Monocytes % (A) 15.3 %; NRBC Per 100 WBC 0 /100 WBCS (0.0-0.0); Neutrophils % (A) 61.7 %; Platelet Count 259 X 10*3/uL (140-440); RBC 3.39 X 10*6/uL (4.10-5.20); RDW 14.7 % (11.5-14.5); WBC 8.76 X 10*3/uL (4.50-10.00)
[2022-04-03 18:53] LABS: African American GFR (CKD) 36.6 (60.0-200.0); Anion Gap 11.8 mmol/L (10.00-18.00); BUN/Creat Ratio 26.23 Ratio (12.00-20.00); Blood Urea Nitrogen 40.4 mg/dL (9.0-27.0); Carbon Dioxide 25.2 mmol/L (20.0-27.5); Non-African American GFR(CKD) 31.5 (60.0-200.0); Potassium 4.3 mmol/L (3.5-5.5)
[~2022-04-05 06:34] MED LIST changes: +ASPIRIN 325 MG TAB PO ONE; +ATORVASTATIN 10 MG TAB PO ONE; +CLEVIDIPINE BUTYRATE 25 MG in EMPTY BAG 1 BAG IV PRN; +CLOPIDOGREL 75 MG TAB PO ONE; +ELECTROLYTE-A SOLUTION 1,000 ML with POTASSIUM CHLORIDE 100 MEQ, MAGNESIUM SULFATE 16 M... IV PRN; -INSULIN ASPART (NovoLOG) 100 UNIT/ML VIAL SQ ONE; +INSULIN REGULAR 100 UNIT in SODIUM CHLORIDE 0.9% 100 ML IV PRN; -IOPAMIDOL M200 10 ML VIAL ONE; -IV FLUID CONTINUATION 800 ML IV ONE; -LIDOCAINE 1% INJ 10MG/ML (20 ML MDV) ONE; +METOPROLOL TARTRATE 25 MG TAB PO ONE; -MIDAZOLAM 2 MG/2 ML VIAL ONE; +NITROGLYCERIN-D5W PMX 25 MG/250 ML BTL IV PRN; +PROTAMINE SULFATE 250 MG in EMPTY BAG 1 BAG IV PRN; -SODIUM CHLORIDE 0.9% (PF) 10 ML VIAL ONE; +SODIUM CHLORIDE 0.9% 500 ML 500 ML INTRAARTER PRN; +TRANEXAMIC ACID 2,000 MG in SODIUM CHLORIDE 0.9% 80 ML IV PRN; -fentaNYL (PF) 50 MCG/ML 2 ML AMP ONE; -methylPREDNISolone ACETATE 40 MG/ML 1 ML VIAL ONE
[2022-04-05] MEDS ORDERED: SODIUM CHLORIDE 0.9% 1,000 ML IV ONE (08:02)
[2022-04-05 08:04] LABS: Glucose,Whole Blood 311 mg/dL (70-110)
[2022-04-05] MEDS ORDERED: ASPIRIN 81 MG ONE (08:19)
[2022-04-05] MEDS ORDERED: INSULIN ASPART (NovoLOG) 100 UNIT/ML VIAL SQ ONE ×2 (08:25→10:12)
[2022-04-05 10:21] LABS: Glucose,Whole Blood 276 mg/dL (70-110)
[2022-04-05 10:27] LABS: Basophils # (A) 0.1 k/uL (0-0.2); Basophils % (A) 1 %; Eosinophils # (A) 0.6 k/uL (0-0.7); Eosinophils % (A) 6 %; HCT 30.8 % (34.0-46.0); HGB 9.5 gm/dL (11.4-16.0); Hypochromasia Marked; Lymphocytes # (A) 1.1 k/uL (1.0-4.8); Lymphocytes % (A) 12 %; MCH 27.8 pg (25.0-35.0); MCV 89.9 fL (80.0-100.0); Mean Platelet Volume 8.2; Monocytes # (A) 1.1 k/uL (0-1.0); Monocytes % (A) 11 %; Neutrophils # (A) 6.3 k/uL (1.3-7.7); Neutrophils % (A) 66 %; Platelet Count 271 k/uL (150-450); RBC 3.43 m/uL (3.80-5.40); RDW 15.6 % (11.5-15.5); WBC 9.5 k/uL (3.8-10.6)
[2022-04-05] MEDS ORDERED: PROPOFOL 10 MG/ML 20 ML VIAL IV ONE (11:01)
[2022-04-05] MEDS ORDERED: PROTAMINE SULFATE 10 MG/ML 5 ML VIAL IV ONE (11:01)
[2022-04-05] MEDS ORDERED: SUCCINYLCHOLINE CHLORIDE 200 MG/10 ML VIAL IV ONE (11:01)
[2022-04-05] MEDS ORDERED: ROCURONIUM 10 MG/ML (5 ML VIAL) IV ONE (11:01)
[2022-04-05] MEDS ORDERED: MIDAZOLAM 2 MG/2 ML VIAL ONE (11:01)
[2022-04-05] MEDS ORDERED: ePHEDrine 50 MG/ML 1 ML VIAL ONE (11:01)
[2022-04-05] MEDS ORDERED: GLYCOPYRROLATE 0.2 MG/ML 2 ML VIAL ONE (11:01)
[2022-04-05] MEDS ORDERED: SODIUM CHLORIDE 0.9% 100 ML BAG ONE (11:01)
[2022-04-05] MEDS ORDERED: ceFAZolin 1,000 MG VIAL ONE (11:01)
[2022-04-05] MEDS ORDERED: fentaNYL (PF) 50 MCG/ML 2 ML AMP ONE (11:01)
[2022-04-05] MEDS ORDERED: NITROGLYCERIN-D5W PMX 50 MG/250 ML BOTTLE IV ONE (11:01)
[2022-04-05] MEDS ORDERED: NEOSTIGMINE 1 MG/ML 10 ML VIAL ONE (11:01)
[2022-04-05] MEDS ORDERED: IOPAMIDOL-370 125ML BTL INJ ONE (12:15)
[2022-04-05] MEDS ORDERED: IOPAMIDOL-370 50ML BTL INJ ONE (12:34)
--- NOTE | 2022-04-05 12:37 | P.ANPRN ---
Procedure Note - Anesthesia - BURKE Intraop Pre Bypass BURKE Intraop - Anesthesia Indication: Transcatheter aortic valve replacement Date of Procedure: 04/05/22 Pre-operative Diagnosis: Severe aortic stenosis Post-operative Diagnosis: Severe aortic stenosis status post-transcatheter aortic valve replacement Surgeon: Shai De Leon Left Ventricle: Ejection fraction 55-60%. Normal regional wall motion abnormalities noted Ejection Fraction: Normal Regional Wall Motion Abnormalities: None Left Ventricle Hypertrophy: Yes (Mild) R. Ventricle Function: Normal Aortic Valve: Severely calcified aortic valve is noted. Mean gradient across the valve is 36 mmHg and peak gradient is 64 mmHg. Aortic valve area is 0.6 cm2. Mild AI noted Anatomy: Trileaflet Aortic Stenosis: Severe Aortic Regurgitation: Mild Mitral Stenosis: None Mitral Regurgitation: Mild Tricuspid Stenosis: None Tricuspid Regurgitation: Trace Pulmonic Stenosis: None Pulmonic Regurgitation: None R. Atrial Dilation: No R. Atrial PFO: No L. Atrial Dilation: Yes (Mild) Aortic Dissection: No Aortic Calcification: None Plural Effusion: None - BURKE Intraop Post Bypass BURKE Intraop Post Bypass Procedure Performed: Transcatheter aortic valve replacement Left Ventricle: Ejection fraction 60%, normal No new Regional wall motion abnormalities noted. Ejection Fraction: Normal Regional Wall Motion Abnormalities: None R. Ventricle Function: Normal Aortic Valve: Prosthetic aortic valve in situ. Appears to be seated well. Mean gradient across the prosthetic valve is 4 mmHg and peak gradient is 8 mmHg. Mild paravalvular leak noted which is improving after protamine administration. Mitral Valve: Unchanged Tricuspid: Unchanged Pulmonic: Unchanged Aortic Dissection: No
[2022-04-05] MEDS ORDERED: IPRATROPIUM-ALBUTEROL 3 ML NEB INHALATION PRN (12:41)
[2022-04-05] MEDS ORDERED: LACTATED RINGERS 1,000 ML IV SCH (12:41)
[2022-04-05] MEDS ORDERED: ONDANSETRON 4 MG/2 ML VIAL IVP PRN (12:41)
[2022-04-05] MEDS ORDERED: Potassium Replacement Protocol 1 EACH MISC MISCELLANE PRN (12:41)
[2022-04-05] MEDS ORDERED: ARTIFICIAL TEARS-HYPROMELLOSE DROPS 15 ML BTL BOTH EYES PRN (12:41)
[2022-04-05] MEDS ORDERED: ACETAMINOPHEN TAB 325 MG TAB PO PRN (12:41)
[2022-04-05] MEDS ORDERED: DOCUSATE 100 MG CAP PO PRN (12:41)
[2022-04-05] MEDS ORDERED: DEXTROSE 50% SYRINGE 50 ML IVP PRN ×2 (12:41)
[2022-04-05] MEDS ORDERED: Magnesium Replacement Protocol 1 EACH MISC MISCELLANE PRN (12:41)
[2022-04-05 12:54] LABS: Glucose,Whole Blood 198 mg/dL (70-110)
--- NOTE | 2022-04-05 13:28 | P.OP ---
Date of Procedure: 04/05/22 Preoperative Diagnosis: Symptomatic calcific tricuspid aortic stenosis Postoperative Diagnosis: Same Procedure(s) Performed: Transcatheter aortic valve replacement with 29 mm Medtronic evolute pro plus core valve Implants: 29 mm Medtronic evolute pro-+ Core valve Anesthesia: GETA Surgeon: Shai De Leon (Cardiovascular surgeon) Dynamo Tender #1: Lucas Mancilla ([employer] animal hospital clerk) Dynamo Tender #2: Juancho Culp ([employer] animal [employer] clerk) Estimated Blood Loss (ml): 20 IV fluids (ml): 1,000 Pathology: none sent Condition: stable Disposition: ICU Indications for Procedure: 81-year-old female with complex medical history including significant COPD and decreased left ventricular function, morbid obesity and uncontrolled hypertension with history of GI bleeding. She has had progressive dyspnea which has been treated in several different ways successfully including control of her hypertension and maximization of her COPD medication. Despite all of this she has continued to have the progressive dyspnea and was found to have worsening aortic valvular stenosis. Transcatheter aortic valve was recommended. Description of Procedure: Patient was brought to the catheterization laboratory and placed supine on the table. Gen. anesthesia was induced. Patient was appropriately positioned and the anterior torso and bilateral groins were sterilely prepped and draped. Right subclavian vein was punctured with an 18-gauge needle and guidewire and sheath were inserted. Screw-in ventricular lead was manipulated into the apex of the right ventricle. Good thresholds were obtained. It was secured at its exit from the skin with 2-0 silk suture ligatures. Bilateral femoral arterial access was obtained under fluoroscopic guidance. On the left a long 6-Chinese sheath was advanced into the descending thoracic aorta. On the right a short 6- Chinese sheath was placed and then 2 Perclose devices were deployed and the 9- Chinese sheath was placed. Patient was systemically heparinized. Over a stiff wire the 9-Chinese sheath was exchanged for a 14-Chinese sheath. Through this the aortic valve was crossed and a pigtail catheter positioned in the apex of the left ventricle. Second pigtail catheter was advanced from the left side and positioned in the non-coronary sinus of Valsalva. Over gradients were measured. Lunderquist wire was placed in the apex of the ventricle. A 29 mm Medtronic evolute pro-plus core valve had been loaded into a delivery system on the back table. This was checked under fluoroscopy and then the 14-Chinese sheath was exchanged for the core valve delivery system. Core valve was advanced through the iliofemoral and aortic systems into the root of the aorta. It was advanced across the [place] valve and deployed under rapid ventricular pacing with deployment levels of 2 on the right and 5 on the left. There is no aortic insufficiency noted by BURKE. Transvalvular gradients were good. The deployment system was pulled back across the valve into the descending thoracic aorta and then re-exchanged for the 14-Chinese sheath. Heparin was reversed with protamine. 14-Chinese sheath was removed and the 2 Perclose devices tied with good resultant hemostasis. Hemostasis was obtained on the left by direct pressure. Patient was transferred to the ICU in stable condition.
--- NOTE | 2022-04-05 13:30 | XR ---
EXAMINATION TYPE: XR chest 1V portable DATE OF EXAM: 04/05/2022 COMPARISON: 03/20/2022 HISTORY: Postop cardiac surgery TECHNIQUE: Single frontal view of the chest is obtained. FINDINGS: Cardiac bleed is seen to suggest an aortic valve surgery. Diffuse interstitial pattern wit h small right effusion and basilar elevation. Surgical clips gallbladder fossa. Osseous structures in tact. Calcifications in the left axilla noted. Sclerotic density overlying the right humeral head sug gestive of bone infarct. Lucency along the upper left mediastinum. IMPRESSION: 1. Cardiomegaly correlate for mild chronic interstitial lung disease or venous congestion. 2. There is a lucency along the left upper mediastinum which may be related to soft tissue artifact r ather than representing pneumomediastinum. Recommend repeat chest x-ray.
[2022-04-05] MEDS: CLEVIDIPINE BUTYRATE 25 MG in EMPTY BAG 1 BAG IV SCH ×2 (13:35→20:56)
[2022-04-05 13:36] LABS: Ionized Calcium 4.8 mg/dL (4.5-5.3)
[2022-04-05 13:38] LABS: Albumin 2.9 g/dL (3.5-5.0); Calcium 7.7 mg/dL (8.4-10.2); Magnesium 1.9 mg/dL (1.6-2.3); Potassium 4.2 mmol/L (3.5-5.1); Total Bilirubin 0.1 mg/dL (0.2-1.3); Total Protein 5.2 g/dL (6.3-8.2)
[2022-04-05] MEDS: INSULIN ASPART (NovoLOG) 100 UNIT/ML VIAL SQ SCH ×3 (13:43→21:32)
[2022-04-05 13:44] LABS: Basophils % (A) 1 %; Eosinophils # (A) 0.3 k/uL (0-0.7); Eosinophils % (A) 3 %; HGB 9.4 gm/dL (11.4-16.0); Hypochromasia Marked; Lymphocytes # (A) 1.1 k/uL (1.0-4.8); Lymphocytes % (A) 13 %; MCH 27.3 pg (25.0-35.0); MCHC 30.2 g/dL (31.0-37.0); MCV 90.4 fL (80.0-100.0); Mean Platelet Volume 7.9; Monocytes # (A) 0.4 k/uL (0-1.0); Monocytes % (A) 4 %; Neutrophils # (A) 6.9 k/uL (1.3-7.7); Neutrophils % (A) 79 %; Platelet Count 222 k/uL (150-450); RBC 3.43 m/uL (3.80-5.40); RDW 15.6 % (11.5-15.5); WBC 8.8 k/uL (3.8-10.6)
[2022-04-05 13:54] LABS: INR 1.1 (<1.2); Partial Thromboplastin Time 24.6 sec (22.0-30.0); Prothrombin Time 11.7 sec (9.0-12.0)
--- NOTE | 2022-04-05 14:00 | P.CNPUL ---
History of Present Illness Consult date: 04/05/22 Requesting physician: Shai De Leon Reason for consult: dyspnea, other Chief complaint: Progressive dyspnea, symptomatic calcific tricuspid aortic stenosis History of present illness: 81-year-old female patient with past medical history of chronic diastolic CHF, severe aortic stenosis, paroxysmal A. fib, COPD, hypertension, hyperlipidemia, chronic kidney disease, diabetes mellitus type 2, and a moderately severe mitral regurgitation. Patient has had the progressive dyspnea, despite medical treatment and optimizing her COPD and CHF medications. Patient underwent evaluation for evidence of severe aortic valvular stenosis and was recommended transcatheter aortic valve replacement. Today she seen in intensive care unit following her transcatheter aortic valve replacement with 29 mm Medtronic Evolute Pro Plus Core valve. Patient resting comfortably in bed, breathing comfortably, she is still a bit drowsy following her procedure, but appears to be in no acute distress, she is in sinus mechanism with a controlled rate, slightly hypertensive and she is on Cleviprex at 6 mg per hour and lactated Ringer's at 60 ML per hour. Chest x-ray following the procedure showed cardiomegaly, chronic interstitial lung disease or venous congestion, there was left upper mediastinum lucency, and follow-up chest x-ray was recommended. Blood work showed white blood cell count of 8.8, hemoglobin of 9.4, sodium is 1:30, potassium is 4.2, B1 is 28 creatinine is 1.26. Review of Systems All systems: negative Constitutional: Denies chills, Denies fever Eyes: denies blurred vision, denies pain Ears, nose, mouth and throat: Denies headache, Denies sore throat Cardiovascular: Reports decreased exercise tolerance, Reports dyspnea on exertion, Denies chest pain, Denies shortness of breath Respiratory: Denies cough Gastrointestinal: Denies abdominal pain, Denies diarrhea, Denies nausea, Denies vomiting Genitourinary: Denies dysuria, Denies hematuria Musculoskeletal: Denies myalgias Integumentary: Denies pruritus, Denies rash Neurological: Denies numbness, Denies weakness Psychiatric: Denies anxiety, Denies depression Endocrine: Denies fatigue, Denies weight change Past Medical History Past Medical History: Atrial Fibrillation, Cancer, Chest Pain / Angina, Heart Failure, COPD, CVA/TIA, Diabetes Mellitus, Hyperlipidemia, Hypertension, Osteoarthritis (OA), Pneumonia, Renal Disease, Sleep Apnea/CPAP/BIPAP, Syncope, Thyroid Disorder Additional Past Medical History / Comment(s): Stage III Kidney Disease, hx Pneumonia with Sepsis, no CPAP use (family states she hasn't been out of the hospital long enough to get a CPAP machine), Vitamin D Deficiency, chronic low back pain, frequent constipation, hx skin cancer, neuropathy History of Any Multi-Drug Resistant Organisms: None Reported Past Surgical History: Adenoidectomy, Back Surgery, Bariatric Surgery, Cholecystectomy, Heart Catheterization, Hysterectomy, Tonsillectomy Additional Past Surgical History / Comment(s): Cardiac caths , lap band placed/since removed, low back surgery, L carpal tunnel release X2, skin cancer removal, colonoscopies, bilateral cataract removals/lens implants. Past Anesthesia/Blood Transfusion Reactions: Previous Problems w/ Anesthesia Additional Past Anesthesia/Blood Transfusion Reaction / Comment(s): "Had too much anesthesia in 2007 for lap band removal, had to be bagged." Smoking Status: Never smoker - Past Family History Sister(s) Family Medical History: Myocardial Infarction ([place]) Brother(s) Family Medical History: Cancer Additional Family Medical History / Comment(s): Colon Cancer. Mother Family Medical History: Dementia Additional Family Medical History / Comment(s): Mother of dementia at the age of 89yrs. Father Family Medical History: Cancer Additional Family Medical History / Comment(s): Pt states her father was treated for a sinus infection but really had leukemia and of this at the age of 72 yrs. Medications and Allergies Home Medications Medication Instructions Recorded Confirmed Type Atorvastatin [Lipitor] 80 mg PO HS 06/30/18 04/05/22 History Sertraline [Zoloft] 25 mg PO DAILY 08/30/21 04/05/22 History Artificial Tears-Hypromellose 1 drop BOTH EYES TID PRN 09/24/21 04/05/22 History [Artificial Tear Drops] Docusate [Colace] 100 mg PO DAILY PRN 09/24/21 04/05/22 History Isosorbide Mononitrate ER [Imdur] 60 mg PO DAILY 09/24/21 04/05/22 History Multivit-Min/Iron/Folic/Lutein 1 tab PO DAILY 09/24/21 04/04/22 History [Centrum Silver Women Tablet] Apixaban [Eliquis] 2.5 mg PO BID@0700,1600 12/01/21 04/05/22 History Aspirin [Adult Low Dose Aspirin EC] 81 mg PO DAILY 12/01/21 04/05/22 History Levothyroxine Sodium [Synthroid] 125 mcg PO QAM 12/01/21 04/05/22 History Magnesium Oxide [Mag-Ox] 500 mg PO DAILY 12/01/21 04/05/22 History Melatonin [Melatonin ER] 10 mg PO HS 12/01/21 04/05/22 History polyethylene glycoL 3350 [Miralax] 17 gm PO DAILY 12/01/21 04/05/22 History busPIRone HCl [Buspar] 10 mg PO Q8H #90 tab 12/02/21 04/05/22 Rx lisinopriL 40 mg PO DAILY 12/19/21 04/05/22 History Acetaminophen Tab [Tylenol] 650 mg PO Q4H PRN #60 tab 12/21/21 04/05/22 Rx Insuln Asp Prt/Insulin Aspart 20 unit SQ AC-SUPPER 30 Days #5 12/21/21 04/05/22 Rx [NovoLOG MIX 70-30 VIAL] each Insuln Asp Prt/Insulin Aspart 30 unit SQ AC-BRKFST 30 Days #5 12/21/21 04/05/22 Rx [NovoLOG MIX 70-30 VIAL] each carvediloL [Coreg*] 12.5 mg PO BID-W/MEALS 30 Days #60 12/21/21 04/05/22 Rx tab hydrALAZINE HCL [Apresoline] 100 mg PO TID tab 02/15/22 04/05/22 Rx Ferrous Sulfate [Feosol] 325 mg PO DAILY 03/02/22 04/05/22 History Cholecalciferol [Vitamin D3 (25 25 mcg PO DAILY 04/04/22 04/04/22 History Mcg = 1000 Iu)] Furosemide [Lasix] 40 mg PO 0900,1600 04/04/22 04/05/22 History Omeprazole [PriLOSEC] 40 mg PO QAM 04/04/22 04/05/22 History Potassium Chloride [Klor-Con M20] 20 meq PO DAILY 04/04/22 04/05/22 History Pioglitazone [Actos] 15 mg PO DAILY 04/05/22 04/05/22 History Allergies Allergy/AdvReac Type Severity Reaction Status Date / Time azithromycin Allergy Rash/Hives Verified 04/04/22 11:01 [From Zithromax Z-Jeanmarie] methylprednisolone Allergy Rash/Hives Verified 04/04/22 11:01 [From Medrol] sulfamethoxazole Allergy Rash/Hives Verified 04/04/22 11:01 [From Bactrim] trimethoprim [From Bactrim] Allergy Rash/Hives Verified 04/04/22 11:01 hydrochlorothiazide AdvReac Unknown Verified 04/04/22 11:01 hydrocodone AdvReac Hallucinati Verified 04/04/22 11:01 ons Physical Exam Vitals: Vital Signs Temp Pulse Pulse Resp BP BP Pulse Ox 04/05/22 13:15 64 26 H 98 04/05/22 13:00 67 25 H 90 L 04/05/22 12:50 77 29 H 04/05/22 08:05 97.7 F 56 L 16 169/69 166/70 95 Intake and Output 04/04/22 04/05/22 04/05/22 22:59 06:59 14:59 Intake Total 300 Balance 300 Intake: IV 300 Other: Weight 91.4 kg ABP, PAP, CO, CI - Last 8 Hours Arterial Blood Pressure 181/64 Arterial Blood Pressure 173/66 GENERAL EXAM: Drowsy but arousable, 81-year-old white female on 8 L/min, comfortable in no apparent distress. HEAD: Normocephalic/atraumatic. EYES: Normal reaction of pupils, equal size. Conjunctiva pink, sclera white. NOSE: Clear with pink turbinates. THROAT: No erythema or exudates. NECK: No masses, no JVD, no thyroid enlargement, no adenopathy. CHEST: No chest wall deformity. Symmetrical expansion. Right upper subclavian temporary pacemaker wire insertion site is clean dry and intact LUNGS: Equal air entry with no crackles, wheeze, rhonchi or dullness. CVS: Regular rate and rhythm, normal S1 and S2, no gallops, no murmurs, no rubs ABDOMEN: Soft, nontender. No hepatosplenomegaly, normal bowel sounds, no gu arding or rigidity. EXTREMITIES: No clubbing, no edema, no cyanosis, 2+ pulses and upper and lower e xtremities. MUSCULOSKELETAL: Muscle strength and tone normal. SPINE: No scoliosis or deformity SKIN: No rashes CENTRAL NERVOUS SYSTEM: Alert and oriented -3. No focal deficits, tone is normal in all 4 extremities. PSYCHIATRIC: Alert and oriented -3. Appropriate affect. Intact judgment and insight. Results - Laboratory Findings CBC and BMP: 04/05/22 13:04 04/05/22 13:04 PT/INR, D-dimer PT 11.1 sec (9.0-12.0) 04/03/22 13:42 INR 1.0 (<1.2) 04/03/22 13:42 Abnormal lab findings: Abnormal Labs 04/03/22 04/03/22 04/05/22 13:42 13:42 07:00 RBC 3.39 L 3.43 L Hgb 8.9 L 9.5 L Hct 29.6 L 30.8 L MCH 26.3 L MCHC 30.1 L RDW 14.7 H 15.6 H Immature Gran # 0.17 H Monocytes # 1.34 H 1.1 H Eosinophils # 0.65 H Chloride BUN 40.4 H Creatinine Est GFR (CKD-EPI)AfAm 36.6 L Est GFR (CKD-EPI)NonAf 31.5 L BUN/Creatinine Ratio 26.23 H Glucose 330 H POC Glucose (mg/dL) Calcium Total Bilirubin Total Protein Albumin 04/05/22 04/05/22 04/05/22 07:56 10:09 12:51 RBC Hgb Hct MCH MCHC RDW Immature Gran # Monocytes # Eosinophils # Chloride BUN Creatinine Est GFR (CKD-EPI)AfAm Est GFR (CKD-EPI)NonAf BUN/Creatinine Ratio Glucose POC Glucose (mg/dL) 311 H 276 H 198 H Calcium Total Bilirubin Total Protein Albumin 04/05/22 04/05/22 13:04 13:04 RBC 3.43 L Hgb 9.4 L Hct 31.0 L MCH MCHC 30.2 L RDW 15.6 H Immature Gran # Monocytes # Eosinophils # Chloride 108 H BUN 28 H Creatinine 1.26 H Est GFR (CKD-EPI)AfAm Est GFR (CKD-EPI)NonAf BUN/Creatinine Ratio Glucose 198 H POC Glucose (mg/dL) Calcium 7.7 L Total Bilirubin 0.1 L Total Protein 5.2 L Albumin 2.9 L - Diagnostic Findings Chest x-ray: report reviewed, image reviewed Assessment and Plan Plan: Assessment: #1. Symptomatic aortic valve stenosis, status post transcatheter aortic valve replacement on 04/05/2022 #2. Acute on chronic hypoxic respiratory failure, related to post procedure conscious sedation #3. Chronic anemia patient underwent evaluation with EGD and colonoscopy showing antral gastritis and mild diverticulosis #4. Chronic CHF, with diastolic dysfunction #5. Chronic kidney disease stage III at baseline #6. Diabetes mellitus type 2 #7. Hypertension #8. Hypo-thyroidism #9. Hyperlipidemia #10. Obstructive sleep apnea Plan: Wean FiO2 to keep O2 sats at 88-90% Provide incentive spirometer, encourage deep breathing and coughing Prophylactic antibiotics, GI and DVT prophylaxis per CT surgery and cardiology Follow-up echocardiogram in the morning Postoperative labs and chest x-ray reviewed We'll continue to follow patient's clinical course in the intensive care unit o vernight I have personally seen and examined the patient, performed the documentation and the assessment and plan as written. Number of minutes spent on the visit: [15] Time with Patient: Greater than 30
[2022-04-05] MEDS: busPIRone HCl 10 MG TAB PO SCH ×2 (14:26→21:06)
[2022-04-05] MEDS ORDERED: INSULN ASP PRT/INSULIN ASPART 100 UNIT/ML 10 ML VIAL SQ SCH (17:30)
--- NOTE | 2022-04-05 17:59 | P.OP ---
Description of Procedure: Transcatheter Aoritc Valve Replacement Operative report PROCEDURE PERFORMED: 1. Percutaneous Aortic Valve Implantation using a 29 mm Core-Valve Evolut-Pro Plus. 2. Transesophageal echocardiography (performed by anesthesia) 3. Ultrasound guided access and repair of right femoral artery access site by Perclose closure device. 4. Placement of temporary pacemaker wire. 5. Aortic root angiography INDICATIONS: 1. 81 year-old with a history of severe symptomatic aortic valve stenosis. 2. [place] Heart Association class 3 symptoms. PERFORMING PHYSICIANS: 1. Lucas Mancilla DO Interventional Cardiology 2. Juancho Culp MD Interventional Cardiology. 3. Shai De Leon MD, Cardiothoracic Surgeon. 4. Tony Neri MD Proctoring Interventional cardiology SEDATION: General anesthesia provided by anesthesia, see separate note APPROACH: Right femoral artery via percutaneous approach PROCEDURE DESCRIPTION: The patient was discussed at valve clinic with multidisciplinary approach with cardiothoracic surgeon as well as fisher diver net and thought better treated with TAVR. Risks, benefits, and alternatives of the procedure had been explained to the patient who understood the risks and agreed to proceed. After consents were obtained, patient was brought to the transcatheter aortic valve implantation room in the cardiac laborer golf course and general anesthesia was provided by the anesthesiologist (see separate report). Once full body sterile prep was performed, right subclavian venous access was obtained and a temporary pacemaker was screwed in, performed by cardiothoracic surgery. Pacing threshholds were checked and deemed appropriate. Next the left femoral artery was accessed using a modified Seldinger technique, ultrasound guidance and micropuncture technique. A 6 Burkinan Rabi sheath was placed in the left femoral artery. Next, a 6-Burkinan pigtail catheter was advanced into the aorta and positioned in the aortic root, aortic root angiography was performed to determine optimal deployment angle. The right femoral artery was accessed using modified Seldinger technique, micropuncture technique and under direct ultrasound guidance. Femoral angiogram was done showing access in the common femoral artery and a 6Fr sheath was placed. Next preclose technique was performed using 2 Percloses. Next a 0.035 Lunderquist wire was placed in the Aorta via a pigtail catheter. Over that the arteriotomy was serially dilated and a 14 Fr Weatherford sheath was placed. Next a 6F- AL1 catheter was advanced over a wire to the aortic root. A straight wire was advanced through the catheter and used to cross the severely stenotic valve. The AL1 was then exchanged for a 6Fr pigtail catheter and pressure measurements were obtained. The 0.035 Lunderquist wire was then positioned in the apex. Next a 29 mm Corevalve Evolut-Pro Plus was advanced. The valve was then positioned across the aortic valve and confirmed with aortic root angiography. The valve was initially partially deployed however needed repositioning and therefore was recaptured. The valve was then deployed in proper position using slow deployment and with rapid pacing in conjuncture with aortic root angiography and BURKE. The delivery system was withdrawn back into the arch and an aortic root injection in conjunction with BURKE demonstrated a satisfactory result. There was mild para valvular leak. There was no evidence of any other significant abnormalities. The preclose Perclose was then deployed in the right femoral artery and hemostasis was achieved. The pigtail was then advanced to the level of the iliac bifurcation via the left femoral access. Femoral angiogram was performed that showed no contrast leak. The left femoral angiogram demonstrated an arteriotomy in the common femoral artery and this was repaired using a 6F angioseal device with complete hemostasis. The temporary venous pacemaker was sutured in place. The patient was then transported to the ICU in hemodynamically stable condition, requiring no pressor support. COMPLICATIONS: None CONCLUSION: 1. Implantaion of 29mm Core-Valve Evolut-Pro Plus transcatheter aortic valve via right femoral approach under BURKE and fluoro guidance with mild maninder-valvular aortic regurgitation. 2. Placement of temporary pacemaker wire 3. Aortic Root Aortogram. RECOMMENDATIONS: The patient will be monitored in the ICU for hemodynamic and electrical stability.
[2022-04-05 18:04] LABS: Glucose,Whole Blood 180 mg/dL (70-110)
[2022-04-05] MEDS: hydrALAZINE HCL 50 MG TAB PO SCH ×2 (18:23→21:12)
[2022-04-05] MEDS: carvediloL 12.5 MG TAB PO SCH (18:56)
[2022-04-05] MEDS ORDERED: MELATONIN 5 MG TABLET PO SCH (21:00)
[2022-04-05] MEDS ORDERED: ATORVASTATIN 80 MG TAB PO SCH (21:00)
[2022-04-05 21:19] LABS: Glucose,Whole Blood 182 mg/dL (70-110)
[2022-04-06] MEDS ORDERED: HEPARIN SODIUM,PORCINE/PF 5,000 UNIT/0.5 ML SYRINGE SQ SCH
[2022-04-06] MEDS ORDERED: LEVOTHYROXINE 125 MCG TAB PO SCH (06:30)
[2022-04-06] MEDS: busPIRone HCl 10 MG TAB PO SCH (06:31)
[2022-04-06 06:50] LABS: Glucose,Whole Blood 196 mg/dL (70-110)
[2022-04-06] MEDS: INSULIN ASPART (NovoLOG) 100 UNIT/ML VIAL SQ SCH (06:56)
[2022-04-06] MEDS ORDERED: APIXABAN 2.5 MG TABLET PO SCH (07:00)
[2022-04-06] MEDS: carvediloL 12.5 MG TAB PO SCH (07:04)
[2022-04-06 07:07] LABS: Basophils % (A) 0 %; Eosinophils # (A) 0.6 k/uL (0-0.7); Eosinophils % (A) 5 %; HCT 31.3 % (34.0-46.0); HGB 9.3 gm/dL (11.4-16.0); Hypochromasia Marked; Lymphocytes # (A) 0.8 k/uL (1.0-4.8); Lymphocytes % (A) 7 %; MCH 26.6 pg (25.0-35.0); MCHC 29.7 g/dL (31.0-37.0); MCV 89.7 fL (80.0-100.0); Mean Platelet Volume 7.8; Monocytes % (A) 8 %; Neutrophils # (A) 9.8 k/uL (1.3-7.7); Neutrophils % (A) 79 %; Platelet Count 235 k/uL (150-450); RBC 3.49 m/uL (3.80-5.40); RDW 15.7 % (11.5-15.5); WBC 12.5 k/uL (3.8-10.6)
[2022-04-06] MEDS: hydrALAZINE HCL 50 MG TAB PO SCH (07:21)
[2022-04-06] MEDS ORDERED: INSULN ASP PRT/INSULIN ASPART 100 UNIT/ML 10 ML VIAL SQ SCH (07:30)
[2022-04-06] MEDS ORDERED: PANTOPRAZOLE 40 MG TABLET PO SCH (07:30)
[2022-04-06 07:49] LABS: Ionized Calcium 4.7 mg/dL (4.5-5.3)
[2022-04-06 08:06] LABS: Albumin 3.3 g/dL (3.5-5.0); Calcium 8.2 mg/dL (8.4-10.2); Magnesium 1.9 mg/dL (1.6-2.3); Potassium 4.2 mmol/L (3.5-5.1); Total Bilirubin 0.2 mg/dL (0.2-1.3); Total Protein 5.7 g/dL (6.3-8.2)
[2022-04-06] MEDS ORDERED: MAGNESIUM HYDROXIDE 2,400 MG/10 ML CUP PO PRN (09:00)
[2022-04-06] MEDS ORDERED: CLOPIDOGREL 75 MG TAB PO SCH (09:00)
[2022-04-06] MEDS ORDERED: MAGNESIUM OXIDE 400 MG TAB PO SCH (09:00)
[2022-04-06] MEDS ORDERED: bisacodyL 10 MG SUPP RECTAL PRN (09:00)
[2022-04-06] MEDS ORDERED: PIOGLITAZONE 15 MG TAB PO SCH (09:00)
[2022-04-06] MEDS ORDERED: SERTRALINE 25 MG TAB PO SCH (09:00)
[2022-04-06] MEDS ORDERED: FUROSEMIDE 40 MG TAB PO SCH (09:00)
[2022-04-06] MEDS ORDERED: lisinopriL 20 MG TAB PO SCH (09:00)
[2022-04-06] MEDS ORDERED: POTASSIUM CHLORIDE ER 20 MEQ TAB.ER PO SCH (09:00)
[2022-04-06] MEDS ORDERED: CHOLECALCIFEROL 25 MCG (1000 IU) TABLET PO SCH (09:00)
[2022-04-06] MEDS ORDERED: MULTIVITAMINS, THERA 1 EACH TAB PO SCH (09:00)
[2022-04-06] MEDS ORDERED: FERROUS SULFATE 325 MG TAB PO SCH (09:00)
[2022-04-06] MEDS ORDERED: ISOSORBIDE MONONITRATE ER 60 MG TAB.ER.24H PO SCH (09:00)
[2022-04-06] MEDS ORDERED: polyethylene glycoL 3350 17 GM POWD.PACK PO SCH (09:00)
--- NOTE | 2022-04-06 09:18 | XR ---
EXAMINATION TYPE: XR chest 1V portable DATE OF EXAM: 04/06/2022 COMPARISON: 04/05/2022 HISTORY: Postop TECHNIQUE: Single frontal view of the chest is obtained. FINDINGS: Postsurgical changes cardiomegaly. Atherosclerotic change aorta. No sizable pneumothorax. Coarsened interstitium noted. No sizable pleural effusion. IMPRESSION: 1. Cardiomegaly with coarsened interstitium correlate for bronchitis, mild venous congestion or inter stitial pneumonitis, chronic interstitial lung disease
--- NOTE | 2022-04-06 09:55 | CA ---
Transthoracic Echo Report Name: Neva Pool Age: 81 Gender: F : 1940 Exam Date: 04/06/2022 08:01 Exam Location: [facility] Ht (in): 64 Wt (lb): 201 Ordering Physician: Rahel Ghosh Attending/Referring Phys: Davina PIKE Switchgear Repairer Vonnie Macias RDCS Procedure CPT: Indications: post TAVR Cardiac Hx: Technical Quality: Contrast 1: N/A Total Dose (mL): Contrast 2: Total Dose (mL): MEASUREMENTS (Male / Female) Normal Values 2D ECHO LV Diastolic Diameter PLAX 4.4 cm 4.2 - 5.9 / 3.9 - 5.3 cm LV Systolic Diameter PLAX 3.6 cm IVS Diastolic Thickness 1.6 cm 0.6 - 1.0 / 0.6 - 0.9 cm LVPW Diastolic Thickness 2.2 cm 0.6 - 1.0 / 0.6 - 0.9 cm LV Relative Wall Thickness 0.9 LVOT Diameter 1.6 cm LA Systolic Diameter LX 3.8 cm 3.0 - 4.0 / 2.7 - 3.8 cm M-MODE Aortic Root Diameter MM 2.7 cm LA Systolic Diameter MM 4.6 cm LA Ao Ratio MM 1.7 AV Cusp Separation MM 1.3 cm DOPPLER AV Peak Velocity 212.0 cm/s AV Peak Gradient 18.0 mmHg AV Mean Velocity 133.4 cm/s AV Mean Gradient 8.9 mmHg AV Velocity Time Integral 44.3 cm LVOT Peak Velocity 161.8 cm/s LVOT Peak Gradient 10.5 mmHg AV Area Cont Eq pk 1.6 cm??? MV Peak Velocity 178.4 cm/s MV Peak Gradient 12.7 mmHg MV Mean Velocity 91.9 cm/s MV Mean Gradient 4.0 mmHg MV Velocity Time Integral 54.3 cm MV Area PHT 2.9 cm??? Mitral E Point Velocity 141.9 cm/s Mitral A Point Velocity 133.7 cm/s Mitral E to A Ratio 1.1 MV Deceleration Time 258.2 ms MV E' Velocity 4.8 cm/s Mitral E to MV E' Ratio 29.5 TR Peak Velocity 285.5 cm/s TR Peak Gradient 32.6 mmHg Right Ventricular Systolic Press 37.4 mmHg FINDINGS Left Ventricle Left ventricular ejection fraction is estimated at 50-55%. Moderately increased left ventricular wall thickness. Right Ventricle Normal right ventricular size and function. Right ventricular systolic pressure within normal limits. Right Atrium Normal right atrial size. Left Atrium Moderate left atrial dilatation. Mitral Valve Mitral annular calcification. Mild mitral regurgitation. Aortic Valve Normally functioning bioprosthetic aortic valve without stenosis peak gradient 18mmHg, mean gradient 8.9 mmHg, trace paravalvular aortic regurgitation. Tricuspid Valve Mild tricuspid regurgitation. Pulmonic Valve Pulmonic valve not well visualized. Pericardium Normal pericardium. Aorta Normal size aortic root and proximal ascending aorta. CONCLUSIONS Normal left ventricular dimension and systolic function Moderate concentric LVH Normally functioning transcatheter aortic valve with trace perivalvular leak No evidence of pericardial effusion Previewed by: Dr. Juancho Culp MD (Electronically Signed) Final Date: 06 April 2022 09:54
--- NOTE | 2022-04-06 10:29 | P.DS ---
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 Calcified aortic valve with severe symptomatic aortic valve stenosis 2. Shortness of breath consistent with NYHA class III 3. Recent syncopal event 4. Hypertension 5. Hyperlipidemia 6. History of CVA 7. Paroxysmal atrial fibrillation on a look was for anticoagulation 8. Chronic iron deficiency anemia 9. Chronic diastolic heart failure 10. Insulin-dependent diabetes 11. Chronic kidney disease, stage III 12. Hypothyroidism 13. Mild COPD, FEV1 71% of predicted 14. DEBBIE without cpap use PROCEDURE: 1. Percutaneous aortic valve implantation using a 29 mm Core Valve Evolute-Pro Plus 2. Transesophageal echocardiography performed by anesthesia 3. Ultrasound-guided access and repair of right femoral artery access site by Perclose closure device 4. Placement of temporary pacemaker wire 5. Aortic root angiography HISTORY OF PRESENT ILLNESS: This is an 81-year-old female who follows on an outpatient basis with Dr. Dawn for primary care and Dr. Hernandez for cardiology. She has a known history of severe aortic stenosis and has been symptomatic with increased exertional dyspnea as well as occasional chest discomfort and episode of syncope. She had been referred to structural heart clinic for evaluation for transcatheter aortic valve replacement after heart catheterization and transesophageal echocardiogram were completed initially, but patient was hypertensive at the time. With better blood pressure control the patient did feel better for a short time, however she did have another hospitalization with heart failure type symptoms including significant progressive shortness of breath is seen again in the structural heart clinic. Echocardiography demonstrated systolic function with EF 55-60%, aortic valve area 0.7 cm with a peak/mean gradient 49/34 mmHg. Heart catheterization showed mild nonobstructive coronary artery disease. After workup was completed STS risk score was calculated along with incremental risk and the patient was felt to be high risk for surgical aortic valve replacement, therefore transcatheter aortic valve replacement was recommended. The usual course of TAVR was discussed in detail the patient, risks and benefits were reviewed, shared decision making between cardiology, surgery, and the patient/family took place, and the patient consented to proceed with the procedure. HOSPITAL COURSE: The patient was brought to the hospital on 04/05/22, was taken to the extended stay area, prepared in the usual fashion, and subsequently taken to the cardiac catheterization laboratory where Dr. Mancilla and Dr. De Leon completed TAVR procedure under general anesthesia with fluoroscopy and BURKE. The valve was deployed under rapid ventricular pacing and proceeded without event. At the end of the procedure there was mean gradient 8 mmHg, hemodynamics were felt to be acceptable, and there was no evidence of significant perivalvular leak. Upon completion of the procedure the patient was extubated and was transferred to the cardiovascular intensive care unit where she was recovered and monitored hemodynamically. Her oxygen was titrated down, she was tolerating oral diet, her pain was controlled, follow-up TTE demonstrated normal left ventricular systolic function with EF 50-55%, mean gradient 8.9 mmHG, trace paravalvular leak, and she was ready to be discharged to home on postoperative day #1. She received written and verbal instruction regarding her medications, activity restrictions, signs and symptoms requiring physician notification, and follow-up appointments. Patient Condition at Discharge: Stable Plan - Discharge Summary Discharge Rx Participant: No New Discharge Prescriptions: New Clopidogrel [Plavix] 75 mg PO DAILY #30 tab Continue Atorvastatin [Lipitor] 80 mg PO HS Sertraline [Zoloft] 25 mg PO DAILY Isosorbide Mononitrate ER [Imdur] 60 mg PO DAILY Multivit-Min/Iron/Folic/Lutein [Centrum Silver Women Tablet] 1 tab PO DAILY Melatonin [Melatonin ER] 10 mg PO HS Magnesium Oxide [Mag-Ox] 500 mg PO DAILY Apixaban [Eliquis] 2.5 mg PO BID@0700,1600 lisinopriL 40 mg PO DAILY Insuln Asp Prt/Insulin Aspart [NovoLOG MIX 70-30 VIAL] 30 unit SQ AC-BRKFST 30 Days #5 each hydrALAZINE HCL [Apresoline] 100 mg PO TID tab Furosemide [Lasix] 40 mg PO 0900,1600 Pioglitazone [Actos] 15 mg PO DAILY Artificial Tears-Hypromellose [Artificial Tear Drops] 1 drop BOTH EYES TID PRN PRN Reason: Dry Eye(S) Docusate [Colace] 100 mg PO DAILY PRN PRN Reason: Constipation polyethylene glycoL 3350 [Miralax] 17 gm PO DAILY Levothyroxine Sodium [Synthroid] 125 mcg PO QAM busPIRone HCl [Buspar] 10 mg PO Q8H #90 tab carvediloL [Coreg*] 12.5 mg PO BID-W/MEALS 30 Days #60 tab Insuln Asp Prt/Insulin Aspart [NovoLOG MIX 70-30 VIAL] 20 unit SQ AC-SUPPER 30 Days #5 each Acetaminophen Tab [Tylenol] 650 mg PO Q4H PRN #60 tab PRN Reason: Pain Ferrous Sulfate [Feosol] 325 mg PO DAILY Cholecalciferol [Vitamin D3 (25 Mcg = 1000 Iu)] 25 mcg PO DAILY Omeprazole [PriLOSEC] 40 mg PO QAM Potassium Chloride [Klor-Con M20] 20 meq PO DAILY Discontinued Aspirin [Adult Low Dose Aspirin EC] 81 mg PO DAILY Discharge Medication List Atorvastatin [Lipitor] 80 mg PO HS 06/30/18 [History] Sertraline [Zoloft] 25 mg PO DAILY 08/30/21 [History] Artificial Tears-Hypromellose [Artificial Tear Drops] 1 drop BOTH EYES TID PRN 09/24/21 [History] Docusate [Colace] 100 mg PO DAILY PRN 09/24/21 [History] Isosorbide Mononitrate ER [Imdur] 60 mg PO DAILY 09/24/21 [History] Multivit-Min/Iron/Folic/Lutein [Centrum Silver Women Tablet] 1 tab PO DAILY 09/24/21 [History] Apixaban [Eliquis] 2.5 mg PO BID@0700,1600 12/01/21 [History] Levothyroxine Sodium [Synthroid] 125 mcg PO QAM 12/01/21 [History] Magnesium Oxide [Mag-Ox] 500 mg PO DAILY 12/01/21 [History] Melatonin [Melatonin ER] 10 mg PO HS 12/01/21 [History] polyethylene glycoL 3350 [Miralax] 17 gm PO DAILY 12/01/21 [History] busPIRone HCl [Buspar] 10 mg PO Q8H #90 tab 12/02/21 [Rx] lisinopriL 40 mg PO DAILY 12/19/21 [History] Acetaminophen Tab [Tylenol] 650 mg PO Q4H PRN #60 tab 12/21/21 [Rx] Insuln Asp Prt/Insulin Aspart [NovoLOG MIX 70-30 VIAL] 20 unit SQ AC-SUPPER 30 Days #5 each 12/21/21 [Rx] Insuln Asp Prt/Insulin Aspart [NovoLOG MIX 70-30 VIAL] 30 unit SQ AC-BRKFST 30 Days #5 each 12/21/21 [Rx] carvediloL [Coreg*] 12.5 mg PO BID-W/MEALS 30 Days #60 tab 12/21/21 [Rx] hydrALAZINE HCL [Apresoline] 100 mg PO TID tab 02/15/22 [Rx] Ferrous Sulfate [Feosol] 325 mg PO DAILY 03/02/22 [History] Cholecalciferol [Vitamin D3 (25 Mcg = 1000 Iu)] 25 mcg PO DAILY 04/04/22 [History] Furosemide [Lasix] 40 mg PO 0900,1600 04/04/22 [History] Omeprazole [PriLOSEC] 40 mg PO QAM 04/04/22 [History] Potassium Chloride [Klor-Con M20] 20 meq PO DAILY 04/04/22 [History] Pioglitazone [Actos] 15 mg PO DAILY 04/05/22 [History] Clopidogrel [Plavix] 75 mg PO DAILY #30 tab 04/06/22 [Rx] Follow up Appointment(s)/Referral(s): Renée Hernandez MD [STAFF PHYSICIAN] - 04/11/22 3:45 pm (Your appointment 04/[address] Hernandez is for groin check. You also have a post TAVR echo appointment at [facility] 05/29/22 @ 1:45 pm) Dontae Dawn MD [Primary Care Provider] - As Needed Clinic,Structural Heart [NON-STAFF] - 05/29/22 1:15 pm (Come to the TAVR clinic before your echo appointment ) Ambulatory/Diagnostic Orders: Basic Metabolic Panel [LAB.AMB] Location: None Selected Complete Blood Count w/diff [LAB.AMB] Facility: [facility], Location: [facility] Activity/Diet/Wound Care/Special Instructions: DISCHARGE INSTRUCTIONS: 1. No driving for 1 week, or until physician gives their ok. 2. No lifting, pushing, or pulling more than 5-10 pounds for 1 week. 3. Hold both groins when you cough or sneeze for the next 2 weeks. Bruising is common, but report increased swelling, pain or fever >101F 4. Shower daily. No pool, hot tub, or bathtub for 1 week 5. No powders, lotions, ointments on incisions. 6. No straining, including for bowel movements. Use stool softner if necessary 7. Stairs are not an issue. Go slowly, using handrail and take 1 step at a time. Ambulate several times daily 8. Continue pain control per as needed orders. 9. Take only the medications listed on your discharge form 10. Eat low salt (limited to 2 grams or 2000 milligrams) daily, avoid adding salt, avoid canned/processed foods 11. Take your weight daily in the morning and record, bring with you to your follow up appointments 12. Keep all follow up appointments. You will need a valve clinic appointment at 30 days and 1 year post procedure for follow up 13. You have been referred to and are expected to begin Cardiac Rehab in approximately 4 weeks. 14. You will need antibiotics prior to any dental work, including cleanings, and any surgeries to prevent Endocarditis (bacterial infection in your heart) For any questions or concerns please call your valve coordinators: Rahel or Taiwo @ Discharge Disposition: HOME SELF-CARE
--- NOTE | 2022-04-06 10:36 | P.PN ---
Subjective Progress Note Date: 04/06/22 Principal diagnosis: Status post taVR, postoperative day #1 81-year-old female patient with past medical history of chronic diastolic CHF, severe aortic stenosis, paroxysmal A. fib, COPD, hypertension, hyperlipidemia, chronic kidney disease, diabetes mellitus type 2, and a moderately severe mitral regurgitation. Patient has had the progressive dyspnea, despite medical treatment and optimizing her COPD and CHF medications. Patient underwent evaluation for evidence of severe aortic valvular stenosis and was recommended transcatheter aortic valve replacement. Today she seen in intensive care unit following her transcatheter aortic valve replacement with 29 mm Medtronic Ev olute Pro Plus Core valve. Patient resting comfortably in bed, breathing comfortably, she is still a bit drowsy following her procedure, but appears to be in no acute distress, she is in sinus mechanism with a controlled rate, slightly hypertensive and she is on Cleviprex at 6 mg per hour and lactated Ringer's at 60 ML per hour. Chest x-ray following the procedure showed cardiomegaly, chronic interstitial lung disease or venous congestion, there was left upper mediastinum lucency, and follow-up chest x-ray was recommended. Blood work showed white blood cell count of 8.8, hemoglobin of 9.4, sodium is 1:30, potassium is 4.2, B1 is 28 creatinine is 1.26. Reevaluated today on 04/06/22, patient is doing great, she is on room air O2 saturation 91%, relatively asymptomatic, doing great and no major issues overnight. WBC count today is 12.5 hemoglobin 9.3F lites are normal BUN is 28 creatinine 1.30 Objective - Vital Signs Vital signs: Vital Signs Temp 97.8 F 04/06/22 04:00 Pulse 67 04/06/22 07:00 Resp 18 04/06/22 07:00 BP 146/68 04/06/22 07:00 Pulse Ox 91 L 04/06/22 07:50 FiO2 Intake & Output 04/05/22 04/06/22 04/06/22 18:59 06:59 18:59 Intake Total 696.633 480 Output Total 0 525 Balance 696.633 -45 Weight 91.4 kg 99.4 kg Intake: IV 550 Lactated Ringers 1,000 ml 250 @ 50 mls/hr IV .Q20H [facility] Rx#:[id number] Intake, IV Titration 146.633 180 Amount Clevidipine Butyrate 25 20 mg In Empty Bag 1 bag @ 1 MG/HR 2 mls/hr IV .Q24H PRN Rx#:[id number] Clevidipine Butyrate 25 6.633 0 mg In Empty Bag 1 bag @ 1 MG/HR 2 mls/hr IV .Q24H [facility] Rx#:[id number] Lactated Ringers 1,000 ml 100 @ 50 mls/hr IV .Q20H [facility] Rx#:[id number] Sodium Chloride 0.9% 1, 40 10 000 ml @ 0 mls/hr IV .STK -MED [facility] Rx#:[id number] ceFAZolin 2 gm In Sodium 150 Chloride 0.9% 50 ml @ 100 mls/hr IVPB Q8HR [facility] Rx# :[id number] Oral 300 Output: Urine 0 525 Other: # Voids 0 ABP, PAP, CO, CI - Last Documented Arterial Blood Pressure 168/57 - Exam Physical Exam: Revealed an 81-year-old female in no distress Head: Atraumatic, normocephalic. HEENT:[Neck is supple.] [No neck masses.] [No thyromegaly.] [No JVD.] Chest: [Clear throughout, no crackles, no rhonchi, no wheezes.] Cardiac Exam: [Normal S1 and S2, no S3 gallop, no murmur.] Abdomen: [Soft, nontender, no megaly, no rebound, no guarding, normal bowel sounds.] Extremities: [No clubbing, no edema, no cyanosis.] Neurological Exam: [No focal neurologic deficit.] Alert oriented 3 Psychiatric: Normal mood affect and normal mental status examination. Skin: No rashes - Labs CBC & Chem 7: 04/06/22 06:31 04/06/22 06:31 Labs: Abnormal Lab Results - Last 24 Hours (Table) 04/05/22 04/05/22 04/05/22 Range/Units 12:51 13:04 13:04 WBC (3.8-10.6) k/uL RBC 3.43 L (3.80-5.40) m/uL Hgb 9.4 L (11.4-16.0) gm/dL Hct 31.0 L (34.0-46.0) % MCHC 30.2 L (31.0-37.0) g/dL RDW 15.6 H (11.5-15.5) % Neutrophils # (1.3-7.7) k/uL Lymphocytes # (1.0-4.8) k/uL Chloride 108 H (98-107) mmol/L Carbon Dioxide (22-30) mmol/L BUN 28 H (7-17) mg/dL Creatinine 1.26 H (0.52-1.04) mg/dL Glucose 198 H (74-99) mg/dL POC Glucose (mg/dL) 198 H (70-110) mg/dL Calcium 7.7 L (8.4-10.2) mg/dL Total Bilirubin 0.1 L (0.2-1.3) mg/dL Total Protein 5.2 L (6.3-8.2) g/dL Albumin 2.9 L (3.5-5.0) g/dL 04/05/22 04/05/22 04/06/22 Range/Units 18:02 21:17 06:31 WBC 12.5 H (3.8-10.6) k/uL RBC 3.49 L (3.80-5.40) m/uL Hgb 9.3 L (11.4-16.0) gm/dL Hct 31.3 L (34.0-46.0) % MCHC 29.7 L (31.0-37.0) g/dL RDW 15.7 H (11.5-15.5) % Neutrophils # 9.8 H (1.3-7.7) k/uL Lymphocytes # 0.8 L (1.0-4.8) k/uL Chloride (98-107) mmol/L Carbon Dioxide (22-30) mmol/L BUN (7-17) mg/dL Creatinine (0.52-1.04) mg/dL Glucose (74-99) mg/dL POC Glucose (mg/dL) 180 H 182 H (70-110) mg/dL Calcium (8.4-10.2) mg/dL Total Bilirubin (0.2-1.3) mg/dL Total Protein (6.3-8.2) g/dL Albumin (3.5-5.0) g/dL 04/06/22 04/06/22 Range/Units 06:31 06:49 WBC (3.8-10.6) k/uL RBC (3.80-5.40) m/uL Hgb (11.4-16.0) gm/dL Hct (34.0-46.0) % MCHC (31.0-37.0) g/dL RDW (11.5-15.5) % Neutrophils # (1.3-7.7) k/uL Lymphocytes # (1.0-4.8) k/uL Chloride 109 H (98-107) mmol/L Carbon Dioxide 20 L (22-30) mmol/L BUN 28 H (7-17) mg/dL Creatinine 1.30 H (0.52-1.04) mg/dL Glucose 183 H (74-99) mg/dL POC Glucose (mg/dL) 196 H (70-110) mg/dL Calcium 8.2 L (8.4-10.2) mg/dL Total Bilirubin (0.2-1.3) mg/dL Total Protein 5.7 L (6.3-8.2) g/dL Albumin 3.3 L (3.5-5.0) g/dL Assessment and Plan Plan: Assessment: #1. Symptomatic aortic valve stenosis, status post transcatheter aortic valve replacement on 04/05/2022, postoperative day #1 #2. Acute on chronic hypoxic respiratory failure, related to post procedure c onscious sedation, expected #3. Chronic anemia patient underwent evaluation with EGD and colonoscopy showing antral gastritis and mild diverticulosis #4. Chronic CHF, with diastolic dysfunction #5. Chronic kidney disease stage III at baseline #6. Diabetes mellitus type 2 #7. Hypertension #8. Hypo-thyroidism #9. Hyperlipidemia #10. Obstructive sleep apnea Plan: Continue present supportive care Agree with discharge planning Will follow as needed Time with Patient: Less than 30
[2022-04-06 11:18] VITALS: BP 155/86; PULSE 73; RESP 25; TEMP 98.4
[2022-04-06 12:22] VITALS: BMI 37.6
[2022-04-06] MEDS ORDERED: SENNOSIDES-DOCUSATE SODIUM 1 EACH TAB PO SCH (21:00)
== END 2022-04-06 11:21 | disposition home or self-care (01) | DRG 266 ==
LOC: 2ORMAIN 06:34 → 2SICU 12:28
PROVIDERS: ADMIT Internal Medicine; ATTEND Internal Medicine
PROC: B24BZZ4 Ultrasonography of Heart with Aorta, Transesophageal (ICD-10-PCS; 2022-04-05)
PROC: 02RF38Z Replacement of Aortic Valve with Zooplastic Tissue, Percutaneous Approach (ICD-10-PCS; principal; 2022-04-05 10:45)
PROC: 5A1223Z Performance of Cardiac Pacing, Continuous (ICD-10-PCS; 2022-04-05 10:45)
PROC: B3101ZZ Fluoroscopy of Thoracic Aorta using Low Osmolar Contrast (ICD-10-PCS; 2022-04-05 10:45)
DX: I08.0 Rheumatic disorders of both mitral and aortic valves (principal); Z00.6 Encounter for examination for normal comparison and control in clinical research program; J96.21 Acute and chronic respiratory failure with hypoxia; I13.0 Hypertensive heart and chronic kidney disease with heart failure and stage 1 through stage 4 chronic kidney disease, or unspecified chronic kidney disease; I50.32 Chronic diastolic (congestive) heart failure; E11.22 Type 2 diabetes mellitus with diabetic chronic kidney disease; D50.9 Iron deficiency anemia, unspecified; E03.9 Hypothyroidism, unspecified; N18.30 Chronic kidney disease, stage 3 unspecified; I48.0 Paroxysmal atrial fibrillation; J44.9 Chronic obstructive pulmonary disease, unspecified; Z79.4 Long term (current) use of insulin; E66.01 Morbid (severe) obesity due to excess calories; Z68.37 Body mass index [BMI] 37.0-37.9, adult; E78.2 Mixed hyperlipidemia; I25.10 Atherosclerotic heart disease of native coronary artery without angina pectoris; G47.33 Obstructive sleep apnea (adult) (pediatric); E55.9 Vitamin D deficiency, unspecified; K29.70 Gastritis, unspecified, without bleeding; K57.90 Diverticulosis of intestine, part unspecified, without perforation or abscess without bleeding; F32.A Depression, unspecified; M19.90 Unspecified osteoarthritis, unspecified site; Z79.01 Long term (current) use of anticoagulants; Z79.82 Long term (current) use of aspirin; Z79.890 Hormone replacement therapy; Z79.84 Long term (current) use of oral hypoglycemic drugs; Z79.899 Other long term (current) drug therapy; Z85.828 Personal history of other malignant neoplasm of skin; Z86.73 Personal history of transient ischemic attack (TIA), and cerebral infarction without residual deficits; Z87.01 Personal history of pneumonia (recurrent); Z90.710 Acquired absence of both cervix and uterus; Z86.19 Personal history of other infectious and parasitic diseases; Z71.3 Dietary counseling and surveillance; Z88.1 Allergy status to other antibiotic agents; Z88.5 Allergy status to narcotic agent; Z88.2 Allergy status to sulfonamides; Z80.0 Family history of malignant neoplasm of digestive organs; Z80.6 Family history of leukemia; Z82.49 Family history of ischemic heart disease and other diseases of the circulatory system
CPT/HCPCS: 33210; 33362; 36415; 71045; 80048; 80053; 82330; 83735; 85025; 85610; 85730; 86850; 86900; 86901; 93306; 93312; 93320; 93325

== ENCOUNTER 2022-04-19 08:34 | Inpatient (IN) | payer MEDICARE, OTHER ==
[2022-04-19] MEDS ORDERED: SODIUM CHLORIDE 0.9% 1,000 ML IV STA (08:40)
[2022-04-19] MEDS ORDERED: IPRATROPIUM-ALBUTEROL 3 ML NEB INHALATION STA (08:40)
--- NOTE | 2022-04-19 08:45 | ED ---
SOB HPI - General Stated Complaint: aydee Time Seen by Provider: 04/19/22 08:34 Source: patient, EMS, RN notes reviewed, old records reviewed Mode of arrival: EMS - History of Present Illness Initial Comments: 81-year-old female history of COPD and a history of recent pneumonia who just finished her last antibiotic yesterday who states she started developing shortness of breath last evening she does have a nonproductive cough with it. No overt fevers chills sweats no chest pain. She initially had a pulse ox of 85% on room air was up to 90-99% on 6 L of oxygen. She was transported here by EMS. No other current complaints or modifying factors MD Complaint: shortness of breath - Related Data Home Medications Medication Instructions Recorded Confirmed Atorvastatin [Lipitor] 80 mg PO HS 06/30/18 04/19/22 Sertraline [Zoloft] 25 mg PO DAILY 08/30/21 04/19/22 Artificial Tears-Hypromellose 1 drop BOTH EYES TID PRN 09/24/21 04/19/22 [Artificial Tear Drops] Isosorbide Mononitrate ER [Imdur] 60 mg PO DAILY 09/24/21 04/19/22 Levothyroxine Sodium [Synthroid] 125 mcg PO DAILY 12/01/21 04/19/22 Magnesium Oxide [Mag-Ox] 400 mg PO DAILY 12/01/21 04/19/22 Melatonin [Melatonin ER] 10 mg PO HS 12/01/21 04/19/22 polyethylene glycoL 3350 [Miralax] 17 gm PO DAILY PRN 12/01/21 04/19/22 lisinopriL 40 mg PO DAILY 12/19/21 04/19/22 Ferrous Sulfate [Feosol] 325 mg PO DAILY 03/02/22 04/19/22 Cholecalciferol [Vitamin D3 (25 25 mcg PO DAILY 04/04/22 04/19/22 Mcg = 1000 Iu)] Furosemide [Lasix] 40 mg PO BID@0900,1600 04/04/22 04/19/22 Omeprazole [PriLOSEC] 40 mg PO DAILY 04/04/22 04/19/22 Potassium Chloride [Klor-Con M20] 20 meq PO DAILY 04/04/22 04/19/22 Pioglitazone [Actos] 15 mg PO DAILY 04/05/22 04/19/22 Apixaban [Eliquis] See Taper PO BID@0700,1600 04/19/22 04/19/22 Docusate [Colace] 100 mg PO DAILY 04/19/22 04/19/22 Previous Rx's Medication Instructions Recorded busPIRone HCl [Buspar] 10 mg PO Q8H #90 tab 12/02/21 Acetaminophen Tab [Tylenol] 650 mg PO Q4H PRN #60 tab 12/21/21 Insuln Asp Prt/Insulin Aspart 20 unit SQ AC-SUPPER 30 Days #5 12/21/21 [NovoLOG MIX 70-30 VIAL] each Insuln Asp Prt/Insulin Aspart 30 unit SQ AC-BRKFST 30 Days #5 12/21/21 [NovoLOG MIX 70-30 VIAL] each carvediloL [Coreg*] 12.5 mg PO BID-W/MEALS 30 Days #60 12/21/21 tab hydrALAZINE HCL [Apresoline] 100 mg PO TID tab 02/15/22 Clopidogrel [Plavix] 75 mg PO DAILY #30 tab 04/06/22 Albuterol Inhaler [Ventolin Hfa 2 puff INHALATION RT-Q6H PRN #1 04/14/22 Inhaler] each Allergies Allergy/AdvReac Type Severity Reaction Status Date / Time azithromycin Allergy Rash/Hives Verified 04/19/22 10:55 [From Zithromax Z-Jeanmarie] methylprednisolone Allergy Rash/Hives Verified 04/19/22 10:55 [From Medrol] sulfamethoxazole Allergy Rash/Hives Verified 04/19/22 10:55 [From Bactrim] trimethoprim [From Bactrim] Allergy Rash/Hives Verified 04/19/22 10:55 hydrochlorothiazide AdvReac Unknown Verified 04/19/22 10:55 hydrocodone AdvReac Hallucinati Verified 04/19/22 10:55 ons Review of Systems ROS Statement: Those systems with pertinent positive or pertinent negative responses have been documented in the HPI. ROS Other: All systems not noted in ROS Statement are negative. 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 History of Any Multi-Drug Resistant Organisms: None Reported Past Surgical History: Adenoidectomy, Back Surgery, Bariatric Surgery, Cholecystectomy, Heart Catheterization, Hysterectomy, Tonsillectomy Additional Past Surgical History / Comment(s): 03/2022 TAVR, Cardiac caths , lap band placed/since removed, low back surgery, L carpal tunnel release X2, pain clinic procedures, skin cancer removal, colonoscopies, alejandro ateral cataract removals/lens implants. Past Anesthesia/Blood Transfusion Reactions: Previous Problems w/ Anesthesia Additional Past Anesthesia/Blood Transfusion Reaction / Comment(s): "Had too much anesthesia in 2007 for lap band removal, had to be bagged." Smoking Status: Never smoker - Past Family History Sister(s) Family Medical History: Myocardial Infarction ([place]) Brother(s) Family Medical History: Cancer Additional Family Medical History / Comment(s): Colon Cancer. Mother Family Medical History: Dementia Additional Family Medical History / Comment(s): Mother of dementia at the age of 89yrs. Father Family Medical History: Cancer Additional Family Medical History / Comment(s): Pt states her father was treated for a sinus infection but really had leukemia and of this at the age of 72 yrs. General Exam - General Exam Comments Initial Comments: This is a well-developed well-nourished awake alert oriented 4 female General appearance: alert, anxious, in distress Head exam: Present: atraumatic, normocephalic, normal inspection Eye exam: Present: normal appearance, PERRL, EOMI. Absent: scleral icterus, conjunctival injection, periorbital swelling ENT exam: Present: mucous membranes dry Neck exam: Present: normal inspection, full ROM, other (No stridor JVD or bruits). Absent: tenderness, meningismus, lymphadenopathy Respiratory exam: Present: normal lung sounds bilaterally, accessory muscle use, decreased breath sounds. Absent: respiratory distress, wheezes, rales, rhonchi, stridor Cardiovascular Exam: Present: regular rate, normal rhythm, normal heart sounds. Absent: systolic murmur, diastolic murmur, rubs, gallop, clicks GI/Abdominal exam: Present: soft, normal bowel sounds. Absent: distended, tenderness, guarding, rebound, rigid Extremities exam: Present: normal inspection, full ROM, normal capillary refill. Absent: tenderness, pedal edema, joint swelling, calf tenderness Back exam: Present: normal inspection Neurological exam: Present: alert, oriented X3, CN II-XII intact Psychiatric exam: Present: normal affect, normal mood Skin exam: Present: warm, dry, intact, normal color. Absent: rash Course Vital Signs 04/19/22 04/19/22 04/19/22 08:39 09:06 09:20 Temperature 98.7 F Pulse Rate 100 76 84 Respiratory 24 18 18 Rate Blood Pressure 209/97 O2 Sat by Pulse 98 Oximetry Medical Decision Making - Medical Decision Making Did discuss Pf[employer] the patient family members also with Dr. banks and Dr. Soto patient will be admitted for inpatient evaluation treatment of CHF and elevated troponin. The troponin and d-dimer is are elevated d-dimer is lower than a previous admission however. Patient denies any chest pain. EKG showed no acute findings. - Lab Data Result diagrams: 04/19/22 08:47 04/19/22 08:47 Lab Results 04/19/22 04/19/22 04/19/22 Range/Units 08:47 08:47 08:47 WBC 11.2 H (3.8-10.6) k/uL RBC 3.76 L (3.80-5.40) m/uL Hgb 10.0 L (11.4-16.0) gm/dL Hct 33.7 L (34.0-46.0) % MCV 89.8 (80.0-100.0) fL MCH 26.5 (25.0-35.0) pg MCHC 29.6 L (31.0-37.0) g/dL RDW 15.3 (11.5-15.5) % Plt Count 306 (150-450) k/uL MPV 7.7 Neutrophils % 77 % Lymphocytes % 7 % Monocytes % 9 % Eosinophils % 5 % Basophils % 0 % Neutrophils # 8.6 H (1.3-7.7) k/uL Lymphocytes # 0.8 L (1.0-4.8) k/uL Monocytes # 1.0 (0-1.0) k/uL Eosinophils # 0.5 (0-0.7) k/uL Basophils # 0.1 (0-0.2) k/uL Hypochromasia Marked PT 11.1 (9.0-12.0) sec INR 1.0 (<1.2) APTT 23.9 (22.0-30.0) sec D-Dimer 1.08 H (<0.60) mg/L FEU Sodium 140 (137-145) mmol/L Potassium 4.5 (3.5-5.1) mmol/L Chloride 104 (98-107) mmol/L Carbon Dioxide 23 (22-30) mmol/L Anion Gap 13 mmol/L BUN 30 H (7-17) mg/dL Creatinine 1.14 H (0.52-1.04) mg/dL Est GFR (CKD-EPI)AfAm 53 (>60 ml/min/1.73 sqM) Est GFR (CKD-EPI)NonAf 46 (>60 ml/min/1.73 sqM) Glucose 182 H (74-99) mg/dL Plasma Lactic Acid Terry (0.7-2.0) mmol/L Calcium 9.2 (8.4-10.2) mg/dL Magnesium 1.8 (1.6-2.3) mg/dL Total Bilirubin 0.5 (0.2-1.3) mg/dL AST 29 (14-36) U/L ALT 17 (4-34) U/L Alkaline Phosphatase 101 (38-126) U/L Troponin I (0.000-0.034) ng/mL NT-Pro-B Natriuret Pep pg/mL Total Protein 6.6 (6.3-8.2) g/dL Albumin 3.6 (3.5-5.0) g/dL Coronavirus (PCR) (Not Detectd) Influenza Type A RNA (Not Detectd) Influenza Type B (PCR) (Not Detectd) 04/19/22 04/19/22 04/19/22 Range/Units 08:47 08:47 08:47 WBC (3.8-10.6) k/uL RBC (3.80-5.40) m/uL Hgb (11.4-16.0) gm/dL Hct (34.0-46.0) % MCV (80.0-100.0) fL MCH (25.0-35.0) pg MCHC (31.0-37.0) g/dL RDW (11.5-15.5) % Plt Count (150-450) k/uL MPV Neutrophils % % Lymphocytes % % Monocytes % % Eosinophils % % Basophils % % Neutrophils # (1.3-7.7) k/uL Lymphocytes # (1.0-4.8) k/uL Monocytes # (0-1.0) k/uL Eosinophils # (0-0.7) k/uL Basophils # (0-0.2) k/uL Hypochromasia PT (9.0-12.0) sec INR (<1.2) APTT (22.0-30.0) sec D-Dimer (<0.60) mg/L FEU Sodium (137-145) mmol/L Potassium (3.5-5.1) mmol/L Chloride (98-107) mmol/L Carbon Dioxide (22-30) mmol/L Anion Gap mmol/L BUN (7-17) mg/dL Creatinine (0.52-1.04) mg/dL Est GFR (CKD-EPI)AfAm (>60 ml/min/1.73 sqM) Est GFR (CKD-EPI)NonAf (>60 ml/min/1.73 sqM) Glucose (74-99) mg/dL Plasma Lactic Acid Terry 1.5 (0.7-2.0) mmol/L Calcium (8.4-10.2) mg/dL Magnesium (1.6-2.3) mg/dL Total Bilirubin (0.2-1.3) mg/dL AST (14-36) U/L ALT (4-34) U/L Alkaline Phosphatase (38-126) U/L Troponin I 0.149 H* (0.000-0.034) ng/mL NT-Pro-B Natriuret Pep 3120 pg/mL Total Protein (6.3-8.2) g/dL Albumin (3.5-5.0) g/dL Coronavirus (PCR) (Not Detectd) Influenza Type A RNA (Not Detectd) Influenza Type B (PCR) (Not Detectd) 04/19/22 04/19/22 Range/Units 08:47 08:47 WBC (3.8-10.6) k/uL RBC (3.80-5.40) m/uL Hgb (11.4-16.0) gm/dL Hct (34.0-46.0) % MCV (80.0-100.0) fL MCH (25.0-35.0) pg MCHC (31.0-37.0) g/dL RDW (11.5-15.5) % Plt Count (150-450) k/uL MPV Neutrophils % % Lymphocytes % % Monocytes % % Eosinophils % % Basophils % % Neutrophils # (1.3-7.7) k/uL Lymphocytes # (1.0-4.8) k/uL Monocytes # (0-1.0) k/uL Eosinophils # (0-0.7) k/uL Basophils # (0-0.2) k/uL Hypochromasia PT (9.0-12.0) sec INR (<1.2) APTT (22.0-30.0) sec D-Dimer (<0.60) mg/L FEU Sodium (137-145) mmol/L Potassium (3.5-5.1) mmol/L Chloride (98-107) mmol/L Carbon Dioxide (22-30) mmol/L Anion Gap mmol/L BUN (7-17) mg/dL Creatinine (0.52-1.04) mg/dL Est GFR (CKD-EPI)AfAm (>60 ml/min/1.73 sqM) Est GFR (CKD-EPI)NonAf (>60 ml/min/1.73 sqM) Glucose (74-99) mg/dL Plasma Lactic Acid Terry (0.7-2.0) mmol/L Calcium (8.4-10.2) mg/dL Magnesium (1.6-2.3) mg/dL Total Bilirubin (0.2-1.3) mg/dL AST (14-36) U/L ALT (4-34) U/L Alkaline Phosphatase (38-126) U/L Troponin I (0.000-0.034) ng/mL NT-Pro-B Natriuret Pep pg/mL Total Protein (6.3-8.2) g/dL Albumin (3.5-5.0) g/dL Coronavirus (PCR) Not Detected (Not Detectd) Influenza Type A RNA Not Detected (Not Detectd) Influenza Type B (PCR) Not Detected (Not Detectd) - EKG Data -: EKG Interpreted by Me EKG shows normal: sinus rhythm EKG Comments: Sinus rhythm of 81. Interval 149 QRS duration 107 QT since QTC 374/411 low voltages possible RV conduction delay probable septal infarct of undetermined age is compared with EKG dated 04/10/22 showing similar configuration no acute changes - Radiology Data Radiology results: report reviewed (Imaging reviewed as well as report evidence of pulmonary vascular congestion please see the complete report), image reviewed Critical Care Time Critical Care Time: Yes Total Critical Care Time: 31 Critical Care Time: Critical care time includes initial presentation with history physical labs x- rays multiple reevaluation the patient multiple discussed with the patient family discussion with the admitting physician review of old charting documentation the above admission orders. Disposition Clinical Impression: COPD with exacerbation, CHF (congestive heart failure), Non-STEMI (non-ST elevated myocardial infarction) Disposition: ADMITTED IP TO THIS HOSP Condition: Fair Referrals: Dontae Dawn MD [Primary Care Provider] - 1-2 days Decision Date: 04/19/22 Decision Time: 12:00
[2022-04-19 09:26] LABS: Basophils # (A) 0.1 k/uL (0-0.2); Basophils % (A) 0 %; Eosinophils # (A) 0.5 k/uL (0-0.7); Eosinophils % (A) 5 %; HCT 33.7 % (34.0-46.0); Hypochromasia Marked; Lymphocytes # (A) 0.8 k/uL (1.0-4.8); Lymphocytes % (A) 7 %; MCH 26.5 pg (25.0-35.0); MCHC 29.6 g/dL (31.0-37.0); MCV 89.8 fL (80.0-100.0); Mean Platelet Volume 7.7; Monocytes % (A) 9 %; Neutrophils # (A) 8.6 k/uL (1.3-7.7); Neutrophils % (A) 77 %; Platelet Count 306 k/uL (150-450); RBC 3.76 m/uL (3.80-5.40); RDW 15.3 % (11.5-15.5); WBC 11.2 k/uL (3.8-10.6)
[2022-04-19 09:34] LABS: Albumin 3.6 g/dL (3.5-5.0); Calcium 9.2 mg/dL (8.4-10.2); Magnesium 1.8 mg/dL (1.6-2.3); Potassium 4.5 mmol/L (3.5-5.1); Total Bilirubin 0.5 mg/dL (0.2-1.3); Total Protein 6.6 g/dL (6.3-8.2)
[2022-04-19 09:39] LABS: Partial Thromboplastin Time 23.9 sec (22.0-30.0); Prothrombin Time 11.1 sec (9.0-12.0)
--- NOTE | 2022-04-19 09:40 | XR ---
EXAMINATION TYPE: XR chest 2V DATE OF EXAM: 04/19/2022 COMPARISON: NONE HISTORY: Difficulty breathing FINDINGS: There are bilateral pleural effusions with cardiomegaly and bibasilar infiltrate. There is a diffuse interstitial pattern. Atherosclerotic change aorta. Arthropathy of the shoulder. No pneumothorax IMPRESSION: 1. Correlate for CHF otherwise consider pneumonia.
[2022-04-19] MEDS ORDERED: FUROSEMIDE 10 MG/ML 4 ML VIAL IV STA (10:54)
[2022-04-19] MEDS ORDERED: ACETAMINOPHEN TAB 325 MG TAB PO STA (10:55)
[2022-04-19] MEDS ORDERED: ALBUTEROL NEBULIZED 2.5 MG/3 ML INHALATION PRN (12:45)
[2022-04-19] MEDS ORDERED: polyethylene glycoL 3350 17 GM POWD.PACK PO PRN (12:45)
[2022-04-19] MEDS ORDERED: ARTIFICIAL TEARS-HYPROMELLOSE DROPS 15 ML BTL BOTH EYES PRN (12:45)
[2022-04-19] MEDS ORDERED: IPRATROPIUM-ALBUTEROL 3 ML NEB INHALATION PRN (13:38)
[2022-04-19] MEDS: SODIUM CHLORIDE 0.9% 1,000 ML IV SCH (14:27)
[2022-04-19] MEDS: carvediloL 12.5 MG TAB PO SCH ×2 (14:48→14:49)
[2022-04-19] MEDS: APIXABAN 5 MG TAB PO SCH (14:48)
[2022-04-19] MEDS: hydrALAZINE HCL 50 MG TAB PO SCH ×2 (14:48→20:21)
[2022-04-19] MEDS: HYDROcodone/APAP 5-325MG 1 EACH TAB PO PRN (14:48)
[2022-04-19] MEDS: FUROSEMIDE 10 MG/ML 4 ML VIAL IV SCH ×2 (14:50→23:42)
[2022-04-19 14:54] LABS: Glucose,Whole Blood 218 mg/dL (70-110)
[2022-04-19] MEDS: IPRATROPIUM-ALBUTEROL 3 ML NEB INHALATION SCH ×2 (15:06→20:00)
[2022-04-19] MEDS ORDERED: FUROSEMIDE 40 MG TAB PO SCH ×2 (16:00→21:00)
[2022-04-19] MEDS: INSULN ASP PRT/INSULIN ASPART 100 UNIT/ML 10 ML VIAL SQ SCH (16:29)
[2022-04-19] MEDS: busPIRone HCl 10 MG TAB PO SCH ×2 (17:51→23:41)
[2022-04-19 20:14] LABS: Glucose,Whole Blood 222 mg/dL (70-110)
[2022-04-19] MEDS: ATORVASTATIN 80 MG TAB PO SCH (20:21)
[2022-04-19] MEDS: MELATONIN 5 MG TABLET PO SCH (20:21)
[2022-04-19] MEDS ORDERED: ALPRAZolam 0.25 MG TAB PO STA (21:58)
--- NOTE | 2022-04-19 23:27 | HP ---
HISTORY AND PHYSICAL CHIEF COMPLAINTS: Shortness of breath and right-sided abdominal pain. HISTORY OF PRESENT ILLNESS: This is an 81-year-old woman with a past medical history of multiple medical problems, recently admitted to [facility] with features of CHF acute exacerbation. The patient had a recent TAVR procedure. The patient was apparently evaluated for ECF rehab and the patient does not require the criteria at that time, but currently the patient is living by herself and the patient complains of severe significant shortness of breath and weakness and also right-sided abdominal pain. The patient came to [facility]. The chest x-ray which I reviewed showed significant CHF. There is no history of any fever, rigor, or chills at this time. PAST MEDICAL HISTORY: Recent TAVR, CHF. Other history reviewed. HOME MEDICATIONS: Again reviewed. They had to be verified in the computer. HOME MEDICATIONS: Reviewed include MiraLAX. Dose and rest of medications noted. ALLERGIES: Reviewed include ZITHROMAX. FAMILY HISTORY: No history of heart disease, or strokes in the family. SOCIAL HISTORY: No history of smoking, or alcohol. REVIEW OF SYSTEMS: A 14-point review is negative except as mentioned earlier. PHYSICAL EXAMINATION: VITAL SIGNS: Pulse is 100, blood pressure 209/97, respirations 25. HEENT: Conjunctivae normal. NECK: Jugular venous distention in the root of the neck. CARDIOVASCULAR: S1, S2 muffled. No S3. No S4. RESPIRATIONS: Breath sounds diminished at the bases. Bilateral scattered rhonchi and crackles. Expiratory wheezing. ABDOMEN: Soft, obese. LEGS: No edema. No swelling. NERVOUS SYSTEM: Diffusely weak. LABS: Reviewed. WBC 9.0. ASSESSMENT: 1. Congestive heart failure acute exacerbation. 2. Failure of outpatient treatment. 3. Troponin 0.149. 4. Recent transcatheter aortic valve replacement. 5. Gait dysfunction. 6. Poor social support. 7. Multiple medical issues. RECOMMENDATIONS AND DISCUSSION: In this 81-year-old woman who presented with multiple complex medical issues. At this time, I recommend to continue current medications. We will initiate intravenous Lasix. Cardiology consultation. We will continue to monitor. Repeat labs. Resume the home medications once they are clarified. Otherwise, this patient has extremely poor social support. The patient might need more supervised setting discharge to ensure compliance with the CHF medications, fluid intake, salt and such. Once again, the prognosis is guarded. Further recommendations to follow. See orders for further details. MMODL / IJN: [id number] /
[2022-04-19] MEDS: ACETAMINOPHEN TAB 325 MG TAB PO PRN (23:43)
[2022-04-19] MEDS ORDERED: carvediloL 12.5 MG TAB PO STA (23:52)
[2022-04-20 06:10] LABS: Glucose,Whole Blood 224 mg/dL (70-110)
[2022-04-20] MEDS: LEVOTHYROXINE 125 MCG TAB PO SCH (06:19)
[2022-04-20] MEDS: carvediloL 12.5 MG TAB PO SCH ×2 (06:19→17:37)
[2022-04-20] MEDS: INSULN ASP PRT/INSULIN ASPART 100 UNIT/ML 10 ML VIAL SQ SCH ×2 (06:20→17:38)
[2022-04-20] MEDS: APIXABAN 5 MG TAB PO SCH ×2 (06:20→17:37)
[2022-04-20] MEDS: PANTOPRAZOLE 40 MG TABLET PO SCH (06:20)
[2022-04-20] MEDS: IPRATROPIUM-ALBUTEROL 3 ML NEB INHALATION SCH ×4 (07:47→19:23)
[2022-04-20] MEDS: PIOGLITAZONE 15 MG TAB PO SCH (09:16)
[2022-04-20] MEDS: busPIRone HCl 10 MG TAB PO SCH ×3 (09:17→23:42)
[2022-04-20] MEDS: MAGNESIUM OXIDE 400 MG TAB PO SCH (09:17)
[2022-04-20] MEDS: hydrALAZINE HCL 50 MG TAB PO SCH ×3 (09:17→20:30)
[2022-04-20] MEDS: FERROUS SULFATE 325 MG TAB PO SCH (09:17)
[2022-04-20] MEDS: DOCUSATE 100 MG CAP PO SCH (09:17)
[2022-04-20] MEDS: CHOLECALCIFEROL 25 MCG (1000 IU) TABLET PO SCH (09:17)
[2022-04-20] MEDS: POTASSIUM CHLORIDE ER 20 MEQ TAB.ER PO SCH (09:17)
[2022-04-20] MEDS: CLOPIDOGREL 75 MG TAB PO SCH (09:17)
[2022-04-20] MEDS: lisinopriL 20 MG TAB PO SCH (09:18)
[2022-04-20] MEDS: FUROSEMIDE 10 MG/ML 4 ML VIAL IV SCH (09:18)
[2022-04-20] MEDS: ISOSORBIDE MONONITRATE ER 60 MG TAB.ER.24H PO SCH (09:21)
[2022-04-20] MEDS: SERTRALINE 25 MG TAB PO SCH (09:21)
[2022-04-20] MEDS ORDERED: DEXTROSE 50% SYRINGE 50 ML IVP PRN ×2 (09:58)
[2022-04-20] MEDS: ACETAMINOPHEN TAB 325 MG TAB PO PRN ×2 (11:04→20:30)
[2022-04-20 11:35] LABS: Calcium 8.3 mg/dL (8.4-10.2); Potassium 3.9 mmol/L (3.5-5.1)
[2022-04-20 11:50] LABS: Glucose,Whole Blood 182 mg/dL (70-110)
--- NOTE | 2022-04-20 12:01 | P.CRDCN ---
History of Present Illness History of present illness: This is a 81 year old female with a past medical history significant for severe aortic stenosis s/p TAVR on 04/05/2022, paroxysmal atrial fibrillation, hypertension, hyperlipidemia, COPD, diabetes, hypothyroidism, CVA, chronic kidney disease, nonobstructive coronary artery disease, obstructive sleep apnea, chronic heart failure with preserved ejection fraction, and pleural effusion with right-sided thoracentesis in July 2021. Patient follows in the office with Dr. Hernandez. We have been asked to see the patient in consultation for congestive heart failure, elevated troponin, and copd exacerbation. Patient presents emergency department with complaints of worsening shortness of breath. She was recently discharged on 04/14/22 after being diagnosed with pulmonary embolism and pneumonia. She presents back to the hospital with increasingly shortness of breath, hypoxia. She was very hypertensive on admission with SBP 200s. She denies any chest pain, lightheadedness, dizziness, syncope or near- syncope, palpitations. She denies any orthopnea, PND, lower extremity edema. DIAGNOSTICS * EKG reveals sinus rhythm, heart rate 81, no significant STT wave abnormality stress acute ischemia * Laboratory data: Troponin 0.14, 0.26, 0.39, sodium 140, potassium 4.5, P1 30, serum creatinine 1.1, d-dimer 1.08, proBNP 3120, WBC 11.2, hemoglobin 10, platelets 306 * Echocardiogram 04/06/2022 EF 5055 % moderate increased left ventricular wall thickness, normal functioning past prosthetic aortic valve without stenosis. Moderate concentric LVH. No evidence of pericardial effusion. * Cardiac catheterization history: October 2021 revealed calcified aortic valve and mitral annulus, mild coronary artery disease, severe aortic stenosis, and mild pulmonary hypertension * Patient underwent BURKE and October 2021 revealing normal left ventricular size and systolic function, severely calcified aortic valve with moderate aortic stenosis by mean gradient and severe by planimetry, moderate mitral and tricuspid regurgitation, moderate to severe pulmonary hypertension and no shunting across the interatrial septum. * Current home cardiac medications include Eliquis 5mg BID, lisinopril 40 mg daily, hydralazine 100 mg 3 times a day, carvedilol 12.5 mg twice a day, Imdur 60 mg daily, Lasix 40 mg twice a day, atorvastatin 80 mg at night REVIEW OF SYSTEMS: At the time of my exam: CONSTITUTIONAL: Denies fever or chills. HEENT: Denies blurred vision, vision changes, or eye pain. Denies hemoptysis CARDIOVASCULAR: Denies chest pain. Denies orthopnea. Denies PND. Denies palpitations RESPIRATORY: + shortness of breath. GASTROINTESTINAL: Denies abdominal pain. Denies nausea or vomiting. HEMATOLOGIC: Denies bleeding disorders. GENITOURINARY: Denies any blood in urine. SKIN: Denies pruitis. Denies rash. PHYSICAL EXAM: VITAL SIGNS: Reviewed. GENERAL: Well-developed in no acute distress. HEENT: Head is normocephalic. Pupils are equal, round. Sclerae anicteric. Mucous membranes of the mouth are moist. Neck supple. No JVD LUNGS: Respirations even and unlabored. Lungs crackles in bilateral bases to auscultation HEART: Regular rate and rhythm. S1 and S2 heard. Systolic ejection murmur noted at right sternal border ABDOMEN: Soft. Nondistended. Nontender. EXTREMITIES: Normal range of motion. No clubbing or cyanosis. Peripheral pulses intact. No lower extremity edema NEUROLOGIC: Awake and alert. Oriented x 3. ASSESSMENT: Hypertensive Urgency Acute on chronic heart failure with preserved ejection fraction Recent Pulmonary embolism, likely secondary to patient not taking Eliquis at home with recent surgery Shortness of breath Elevated troponin, likely secondary to type II IA secondary to supply demand mismatch History of severe symptomatic aortic stenosis s/p TAVR on 04/05/2022 History of syncopal episodes Recent T12 compression fracture in 01/2022 Paroxysmal atrial fibrillation on Eliquis History of Hypertension Hyperlipidemia Nonobstructive coronary artery disease Obstructive sleep apnea Chronic kidney disease COPD History of pneumonia History of pleural effusion with right-sided thoracentesis in July 2021 PLAN: Patient with improved BP after restarting her home medications, will continue current medication regimen and monitor Continue anticoagulation with Eliquis Continue IV Lasix Monitor renal function and electrolytes I/Os, daily weights Further recommendations based on clinical course. Nurse practitioner note has been reviewed by physician. Signing provider agrees with the documented findings, assessment, and plan of care. Past Medical History Past Medical History: Atrial Fibrillation, Cancer, Chest Pain / Angina, Heart Failure, COPD, CVA/TIA, Diabetes Mellitus, Hyperlipidemia, Hypertension, Osteoarthritis (OA), Pneumonia, Renal Disease, Sleep Apnea/CPAP/BIPAP, Syncope, Thyroid Disorder Additional Past Medical History / Comment(s): Severe aortic stenosis with a pr evious TAVR, nonocclusive coronary artery disease, diabetes mellitus type 2, paroxysmal atrial fibrillation, previous pulmonary embolism based on a intermediate probability VQ scan with a negative Dopplers, obstructive sleep apnea, chronic stage III kidney disease, hypertension, hyperlipidemia, previous history of CVA, previous history of compression fracture of T12 spine, chronic back pain, chronic anemia, hypothyroidism, vitamin D deficiency, skin cancer that has been resected, previous history of pneumonia with sepsis, previous history of right-sided pleural effusion requiring thoracentesis, previous history of CVA back in 2012 History of Any Multi-Drug Resistant Organisms: None Reported Past Surgical History: Adenoidectomy, Back Surgery, Bariatric Surgery, Cholecystectomy, Heart Catheterization, Hysterectomy, Tonsillectomy Additional Past Surgical History / Comment(s): 03/2022 TAVR, Cardiac caths , lap band placed/since removed, low back surgery, L carpal tunnel release X2, pain clinic procedures, skin cancer removal, colonoscopies, bilateral cataract removals/lens implants. Past Anesthesia/Blood Transfusion Reactions: Previous Problems w/ Anesthesia Additional Past Anesthesia/Blood Transfusion Reaction / Comment(s): "Had too much anesthesia in 2007 for lap band removal, had to be bagged." Past Psychological History: Depression Additional Psychological History / Comment(s): Pt resides alone. Pt uses a walker. She is receiving home care thru [facility]. She is not driving anymore, her family takes her to [email or web address]. Her delia, Jennie, organizes her meds. Smoking Status: Never smoker Past Alcohol Use History: None Reported Past Drug Use History: None Reported - Past Family History Sister(s) Family Medical History: Myocardial Infarction (IA) Brother(s) Family Medical History: Cancer Additional Family Medical History / Comment(s): Colon Cancer. Mother Family Medical History: Dementia Additional Family Medical History / Comment(s): Mother of dementia at the age of 89yrs. Father Family Medical History: Cancer Additional Family Medical History / Comment(s): Pt states her father was treated for a sinus infection but really had leukemia and of this at the age of 72 yrs. Medications and Allergies Home Medications Medication Instructions Recorded Confirmed Type Atorvastatin [Lipitor] 80 mg PO HS 06/30/18 04/19/22 History Sertraline [Zoloft] 25 mg PO DAILY 08/30/21 04/19/22 History Artificial Tears-Hypromellose 1 drop BOTH EYES TID PRN 09/24/21 04/19/22 History [Artificial Tear Drops] Isosorbide Mononitrate ER [Imdur] 60 mg PO DAILY 09/24/21 04/19/22 History Levothyroxine Sodium [Synthroid] 125 mcg PO DAILY 12/01/21 04/19/22 History Magnesium Oxide [Mag-Ox] 400 mg PO DAILY 12/01/21 04/19/22 History Melatonin [Melatonin ER] 10 mg PO HS 12/01/21 04/19/22 History polyethylene glycoL 3350 [Miralax] 17 gm PO DAILY PRN 12/01/21 04/19/22 History busPIRone HCl [Buspar] 10 mg PO Q8H #90 tab 12/02/21 04/19/22 Rx lisinopriL 40 mg PO DAILY 12/19/21 04/19/22 History Acetaminophen Tab [Tylenol] 650 mg PO Q4H PRN #60 tab 12/21/21 04/19/22 Rx Insuln Asp Prt/Insulin Aspart 20 unit SQ AC-SUPPER 30 Days #5 12/21/21 04/19/22 Rx [NovoLOG MIX 70-30 VIAL] each Insuln Asp Prt/Insulin Aspart 30 unit SQ AC-BRKFST 30 Days #5 12/21/21 04/19/22 Rx [NovoLOG MIX 70-30 VIAL] each carvediloL [Coreg*] 12.5 mg PO BID-W/MEALS 30 Days #60 12/21/21 04/19/22 Rx tab hydrALAZINE HCL [Apresoline] 100 mg PO TID tab 02/15/22 04/19/22 Rx Ferrous Sulfate [Feosol] 325 mg PO DAILY 03/02/22 04/19/22 History Cholecalciferol [Vitamin D3 (25 25 mcg PO DAILY 04/04/22 04/19/22 History Mcg = 1000 Iu)] Furosemide [Lasix] 40 mg PO BID@0900,1600 04/04/22 04/19/22 History Omeprazole [PriLOSEC] 40 mg PO DAILY 04/04/22 04/19/22 History Potassium Chloride [Klor-Con M20] 20 meq PO DAILY 04/04/22 04/19/22 History Pioglitazone [Actos] 15 mg PO DAILY 04/05/22 04/19/22 History Clopidogrel [Plavix] 75 mg PO DAILY #30 tab 04/06/22 04/19/22 Rx Albuterol Inhaler [Ventolin Hfa 2 puff INHALATION RT-Q6H PRN #1 04/14/22 04/19/22 Rx Inhaler] each Apixaban [Eliquis] See Taper PO BID@0700,1600 04/19/22 04/19/22 History Docusate [Colace] 100 mg PO DAILY 04/19/22 04/19/22 History Allergies Allergy/AdvReac Type Severity Reaction Status Date / Time azithromycin Allergy Rash/Hives Verified 04/19/22 10:55 [From Zithromax Z-Jeanmarie] methylprednisolone Allergy Rash/Hives Verified 04/19/22 10:55 [From Medrol] sulfamethoxazole Allergy Rash/Hives Verified 04/19/22 10:55 [From Bactrim] trimethoprim [From Bactrim] Allergy Rash/Hives Verified 04/19/22 10:55 hydrochlorothiazide AdvReac Unknown Verified 04/19/22 10:55 hydrocodone AdvReac Hallucinati Verified 04/19/22 10:55 ons Physical Exam Vitals: Vital Signs Temp Pulse Pulse Resp BP BP Pulse Ox 04/20/22 04:20 98.5 F 70 18 162/70 91 L 04/20/22 01:06 135/57 04/19/22 23:40 100.1 F H 77 19 193/70 94 L 04/19/22 20:20 97.8 F 67 18 170/78 94 L 04/19/22 20:13 70 04/19/22 20:01 68 04/19/22 18:20 63 16 04/19/22 17:53 63 16 144/55 100 04/19/22 17:00 97.7 F 65 20 149/77 98 04/19/22 16:30 65 22 167/73 98 04/19/22 16:00 63 22 165/70 98 04/19/22 15:30 68 20 203/78 98 04/19/22 15:20 68 18 04/19/22 15:15 65 22 199/83 100 04/19/22 15:06 71 20 08/31/22 15:00 63 22 200/86 98 04/19/22 14:00 63 22 205/ 98 04/19/22 11:30 73 18 196/77 98 04/19/22 11:00 69 24 209/83 97 04/19/22 10:30 68 24 200/76 97 04/19/22 10:00 68 24 197/73 100 04/19/22 09:30 70 24 201/83 100 04/19/22 09:20 84 18 04/19/22 09:06 76 18 04/19/22 09:00 80 24 205/81 100 04/19/22 08:39 98.7 F 100 24 / 98 Intake and Output 04/19/22 04/20/22 04/20/22 22:59 06:59 14:59 Output Total 300 Balance -300 Output: Urine 300 Other: Voiding Method External Catheter External Catheter # Voids 2 Weight 90.718 kg 87.2 kg Results 04/19/22 08:47 04/20/22 10:46 Cardiac Enzymes 04/19/22 04/19/22 04/19/22 Range/Units 08:47 08:47 12:59 AST 29 (14-36) U/L Troponin I 0.149 H* 0.267 H* (0.000-0.034) ng/mL 04/19/22 Range/Units 14:36 AST (14-36) U/L Troponin I 0.391 H* (0.000-0.034) ng/mL Coagulation 04/19/22 Range/Units 08:47 PT 11.1 (9.0-12.0) sec APTT 23.9 (22.0-30.0) sec CBC 04/19/22 Range/Units 08:47 WBC 11.2 H (3.8-10.6) k/uL RBC 3.76 L (3.80-5.40) m/uL Hgb 10.0 L (11.4-16.0) gm/dL Hct 33.7 L (34.0-46.0) % Plt Count 306 (150-450) k/uL Comprehensive Metabolic Panel 04/19/22 Range/Units 08:47 Sodium 140 (137-145) mmol/L Potassium 4.5 (3.5-5.1) mmol/L Chloride 104 (98-107) mmol/L Carbon Dioxide 23 (22-30) mmol/L BUN 30 H (7-17) mg/dL Creatinine 1.14 H (0.52-1.04) mg/dL Glucose 182 H (74-99) mg/dL Calcium 9.2 (8.4-10.2) mg/dL AST 29 (14-36) U/L ALT 17 (4-34) U/L Alkaline Phosphatase 101 (38-126) U/L Total Protein 6.6 (6.3-8.2) g/dL Albumin 3.6 (3.5-5.0) g/dL Current Medications Generic Name Dose Route Start Last Admin Trade Name Freq PRN Reason Stop Dose Admin Acetaminophen 650 mg 04/19/22 12:45 04/19/22 23:43 Acetaminophen Tab 325 Mg Tab PO 650 mg Q4H PRN Administration Pain Hydrocodone Bitart/Acetaminophen 0.5 each 04/19/22 13:38 04/19/22 14:48 Hydrocodone/Apap 5-325mg 1 Each Tab PO 0.5 each Q6HR PRN Administration Pain Albuterol/Ipratropium 3 ml 04/19/22 16:00 04/19/22 20:00 Ipratropium-Albuterol 3 Ml Neb INHALATION 3 ml RT-QID [facility] Administration Albuterol/Ipratropium 3 ml 04/19/22 13:38 Ipratropium-Albuterol 3 Ml Neb INHALATION RT-QID PRN Shortness Of Breath Or Wheezing Apixaban 5 mg 04/19/22 16:00 04/20/22 06:20 Apixaban 5 Mg Tab PO 5 mg BID@0700,1600 [facility] Administration Protocol Artificial Tears 1 drops 04/19/22 12:45 Artificial Tears-Hypromellose Drops 15 Ml Btl BOTH EYES TID PRN Dry Eye(s) Atorvastatin Calcium 80 mg 04/19/22 21:00 04/19/22 20:21 Atorvastatin 80 Mg Tab PO 80 mg HS [facility] Administration Buspirone HCl 10 mg 04/19/22 16:00 04/19/22 23:41 Buspirone Hcl 10 Mg Tab PO 10 mg Q8HR [facility] Administration Carvedilol 12.5 mg 04/19/22 17:30 04/19/22 14:49 Carvedilol 12.5 Mg Tab PO 12.5 mg BID-W/MEALS [facility] Administration Carvedilol 25 mg 04/20/22 07:30 04/20/22 06:19 Carvedilol 12.5 Mg Tab PO 25 mg BID-W/MEALS [facility] Administration Cholecalciferol 25 mcg 04/20/22 09:00 Cholecalciferol 25 Mcg (1000 Iu) Tablet PO DAILY [facility] Clopidogrel Bisulfate 75 mg 04/20/22 09:00 Clopidogrel 75 Mg Tab PO DAILY [facility] Docusate Sodium 100 mg 04/20/22 09:00 Docusate 100 Mg Cap PO DAILY [facility] Ferrous Sulfate 325 mg 04/20/22 09:00 Ferrous Sulfate 325 Mg Tab PO DAILY [facility] Furosemide 40 mg 04/19/22 16:00 04/19/22 23:42 Furosemide 10 Mg/Ml 4 Ml Vial IV 40 mg Q8HR [facility] Administration Hydralazine HCl 100 mg 04/19/22 16:00 04/19/22 20:21 Hydralazine Hcl 50 Mg Tab PO 100 mg TID [facility] Administration Sodium Chloride 1,000 mls @ 20 mls/hr 04/19/22 12:45 04/19/22 14:27 Saline 0.9% IV 20 mls/hr .Q24H [facility] Administration Insulin Aspart 30 unit 04/20/22 07:30 04/20/22 06:20 Insuln Asp Prt/Insulin Aspart 100 Unit/Ml 10 Ml Vial SQ 30 unit AC-BRKFST [facility] Administration Insulin Aspart 20 unit 04/19/22 17:30 04/19/22 16:29 Insuln Asp Prt/Insulin Aspart 100 Unit/Ml 10 Ml Vial SQ 20 unit AC-SUPPER [facility] Administration Isosorbide Mononitrate 60 mg 04/20/22 09:00 Isosorbide Mononitrate Er 60 Mg Tab.Er.24h PO DAILY [facility] Levothyroxine Sodium 125 mcg 04/20/22 06:30 04/20/22 06:19 Levothyroxine 125 Mcg Tab PO 125 mcg DAILY@0630 [facility] Administration Lisinopril 40 mg 04/20/22 09:00 Lisinopril 20 Mg Tab PO DAILY [facility] Magnesium Oxide 400 mg 04/20/22 09:00 Magnesium Oxide 400 Mg Tab PO DAILY [facility] Melatonin 10 mg 04/19/22 21:00 04/19/22 20:21 Melatonin 5 Mg Tablet PO 10 mg HS [facility] Administration Pantoprazole Sodium 40 mg 04/20/22 07:30 04/20/22 06:20 Pantoprazole 40 Mg Tablet PO 40 mg AC-BRKFST [facility] Administration Pioglitazone HCl 15 mg 04/20/22 09:00 Pioglitazone 15 Mg Tab PO DAILY [facility] Polyethylene Glycol 17 gm 04/19/22 12:45 Polyethylene Glycol 3350 17 Gm Powd.Pack PO DAILY PRN Constipation Potassium Chloride 20 meq 04/20/22 09:00 Potassium Chloride Er 20 Meq Tab.Er PO DAILY [facility] Sertraline HCl 25 mg 04/20/22 09:00 Sertraline 25 Mg Tab PO DAILY [facility] Intake and Output 04/19/22 04/20/22 04/20/22 22:59 06:59 14:59 Output Total 300 Balance -300 Output: Urine 300 Other: Voiding Method External Catheter External Catheter # Voids 2 Weight 90.718 kg 87.2 kg 04/19/22 08:47 04/19/22 08:47
[2022-04-20 12:08] VITALS: BMI 37.5
[2022-04-20] MEDS: HYDROcodone/APAP 5-325MG 1 EACH TAB PO PRN (12:16)
[2022-04-20] MEDS: INSULIN ASPART (NovoLOG) 100 UNIT/ML VIAL SQ SCH ×3 (12:17→20:31)
--- NOTE | 2022-04-20 13:31 | P.PN ---
Subjective Progress Note Date: 04/20/22 81-year-old female patient, multiple comorbidities including history of severe aortic stenosis with a previous tavern that was undergone on 04/05/2022, proximal atrial fibrillation, previous history of CVA, nonobstructive CAD COPD, obstructive sleep apnea, chronic stage III kidney disease, diabetes mellitus type 2, chronic atrial fibrillation, congestion heart failure, hyperlipidemia and osteoarthritis. The patient was in the hospital on 04/10/2022 with complaints of shortness of breath. The patient at that time underwent further investigation and echocardiogram showed an ejection fraction of 50-55% with moderately decreased LV wall thickness, normally functioning prosthetic valve without any stenosis and moderate concentric LVH without any pericardial effusion. Cardiac catheterization from October 2021 and shown mild nonobstructive coronary artery disease. The patient had a VQ scan that showed septal mesh defects compatible with intermediate probability pulmonary embolism. At that point, the patient was given diagnosis of pulmonary embolism and this was based on a VQ scan that was of an intermediate probability and the patient was started on anticoagulation with Eliquis 10 mg by mouth twice a day initially and subsequently 5 mg by mouth twice a day. This patient was supposed to be on anticoagulation because of her history of proximal atrial fibrillation. Apparently she was not taking the medication. She was seen by cardiology and she was discharged home. The venous Dopplers obtained on 04/13/2022 essentially negative for DVT. The patient was not given a CT angiogram due to her chronically impaired renal function and stage III chronic kidney disease. The patient was discharged home on 04/14/2022 in stable condition to be followed up by primary care physician and cardiology. She was asked to continue the anticoagulation. The patient came back to the emergency department with worsening shortness of breath and a nonproductive cough. No fever. No chills. No angina. No palpitation. Her pulse ox 85% on room air oxygen and patient was placed on 6 L O2 nasal cannula to maintain a saturation above 95%. The patient was seen in the ED. She was afebrile. Nevertheless, her initial blood pressure was low 9/97. Her white cell count was 11.2 with a hemoglobin of 10 and a platelet count of 306, the patient had a creatinine of 1.0 to be in of 30 and the sodium level of 140. LFTs were essentially within normal limits. Troponin was 0.149 and the proBNP level was 3120. Influenza screen was negative and the COVID 19 testing was also negative. The patient had a normal sinus rhythm without any acute ischemic changes on EKG. The patient was given diagnosis of CHF exacerbation for that reason she was admitted to the hospital. The chest x- ray is consistent with CHF. 04/20/2022, the patient is doing well. The patient has no specific complaints. Over the past 24 hours, the patient was started back on her antihypertensive medication and BP is under better control. The patient is also diuresis with Lasix. The patient is a negative fluid balance and she is less short of breath. BUN is at 30 with a creatinine of 1.4 insulin is at 139. The patient is on Lasix and dose has been reduced to 40 mg once a day. She is on 2 L of oxygen by nasal cannula with pulse ox of 96%. Objective - Vital Signs Vital signs: Vital Signs Temp 98.6 F 04/20/22 11:50 Pulse 63 04/20/22 11:51 Resp 18 04/20/22 11:50 BP 141/67 04/20/22 11:50 Pulse Ox 96 04/20/22 11:50 FiO2 Intake & Output 04/19/22 04/20/22 04/20/22 18:59 06:59 18:59 Intake Total 180 Output Total 300 Balance -300 180 Weight 90.718 kg 87.2 kg 87.2 kg Intake: Oral 180 Output: Urine 300 Other: Voiding Method External Catheter External Catheter Toilet # Voids 2 - Exam Gen. appearance the patient is calm and comfortable, and the patient on acute respiratory distress, currently on oxygen at 2 L per minute nasal cannula GENERAL: Well-developed in no acute distress. Head exam was generally normal. There was no scleral icterus or corneal arcus. Mucous membranes were moist. HEENT: Head is normocephalic. Neck supple. No JVD LUNGS: Respirations even and unlabored. Lungs essentially clear to auscultation bilaterally. HEART: Regular rate and rhythm. S1 and S2 heard. Systolic ejection murmur noted at right sternal border Abdominal exam revealed normal bowel sounds. The abdomen was soft, non-tender, and without masses, organomegaly, or appreciable enlargement of the abdominal aorta. EXTREMITIES: Normal range of motion. No clubbing or cyanosis. Peripheral pulses intact. No lower extremity edema Neurologically, the patient is awake and alert and the patient does not have any focal neurological deficit. Cranial nerves are essentially intact. Examination of the skin revealed no evidence of significant rashes, suspicious appearing nevi or other concerning lesions. - Labs CBC & Chem 7: 04/19/22 08:47 04/20/22 10:46 Labs: Abnormal Lab Results - Last 24 Hours (Table) 04/19/22 04/19/22 04/19/22 Range/Units 12:59 14:36 14:51 Carbon Dioxide (22-30) mmol/L BUN (7-17) mg/dL Creatinine (0.52-1.04) mg/dL Glucose (74-99) mg/dL POC Glucose (mg/dL) 218 H (70-110) mg/dL Calcium (8.4-10.2) mg/dL Troponin I 0.267 H* 0.391 H* (0.000-0.034) ng/mL 04/19/22 04/20/22 04/20/22 Range/Units 20:10 06:09 10:46 Carbon Dioxide 31 H (22-30) mmol/L BUN 30 H (7-17) mg/dL Creatinine 1.41 H (0.52-1.04) mg/dL Glucose 174 H (74-99) mg/dL POC Glucose (mg/dL) 222 H 224 H (70-110) mg/dL Calcium 8.3 L (8.4-10.2) mg/dL Troponin I (0.000-0.034) ng/mL 04/20/22 Range/Units 11:48 Carbon Dioxide (22-30) mmol/L BUN (7-17) mg/dL Creatinine (0.52-1.04) mg/dL Glucose (74-99) mg/dL POC Glucose (mg/dL) 182 H (70-110) mg/dL Calcium (8.4-10.2) mg/dL Troponin I (0.000-0.034) ng/mL Assessment and Plan Plan: Acute dyspnea likely on the basis of CHF with a chest x-ray showing thyromegaly and pulmonary vessel congestion and small better pleural effusions and elevated proBNP level. EKG showing no acute ischemic changes the patient is known to have nonocclusive coronary artery disease based on recent cardiac catheterization. Clinically improving the patient is clinically improving as the patient is being Lasix and the patient's blood pressures under better control for now. Troponin leak/elevation, doubt acute myocardial infarction the patient probably had a acute troponin leak secondary to hypertensive reaction and decompensated CHF and the patient has nonocclusive coronary artery disease on recent cardiac catheterization Acute hypertensive urgency and the patient presented to the hospital with a systolic blood pressure above 200, probably contributing to her decompensated heart failure. For now, the patient's blood pressures under better control Paroxysmal atrial fibrillation currently in sinus rhythm and the patient is maintained on long-term and coagulation with Eliquis History of severe aortic stenosis with a previous TAVR procedure Chronic stage III kidney disease 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 COPD Obstructive sleep apnea not utilizing a device Obesity with a BMI of 39 Hypertension Compression fracture of the T12 spine Questionable history of pulmonary embolism and this was based on the previous VQ scan and the patient on long-term and to coagulation with Eliquis Hyperlipidemia Skin cancer Anemia of chronic disease, hemoglobin is at 10 Remote history of right-sided pleural effusion with previous thoracentesis of the right History of CVA 2014 Plan Presentation is consistent with CHF and the patient is clinically improving. Drop the Lasix dose to 40 mg once a day, IV Blood pressure under adequate control for now as the patient is receiving Coreg, in January, lisinopril, hydralazine Monitor electrolytes Monitor fluid balance IV fluids to KVO insulin therapy and the patient is currently on NovoLog mix units in the morning and 20 units at supper and a sliding scale coverage Recent echocardiogram was noted Recent cardiac catheterization was noted Recent hospitalization was noted and the patient has been committed to long-term anticoagulation We'll continue to follow
--- NOTE | 2022-04-20 14:38 | P.PN ---
Subjective Progress Note Date: 04/20/22 This is an 81-year-old female who was recently admitted with features of congestive heart failure acute exacerbation with shortness of breath and is being closely monitored. Multiple medical consultations including pulmonary, cardiology following and patient is maintained on IV Lasix and diuresing. Kennedi neves also had a recent TAVR procedure. Physical therapy to evaluate the patient as patient continues with significant weakness and patient would benefit from an ECF for continued PT/OT therapy for strength and mobility. Patient lives alone and per family is concerned given all her complex comorbidities and feels she would benefit from ECF. Recommend PT/OT therapy daily and will decrease the dos e of IV Lasix. Recommend Accu-Cheks before meals and at bedtime and will add sliding scale this patient is on 7030 NovoLog twice daily with continued elevated blood sugars. Recommend follow-up labs and will continue to monitor closely. Patient is afebrile and continues with some shortness of breath although denies chest pain or palpitations. Patient denies nausea or vomiting and is tolerating diet. Review of systems: Constitutional: No reports of fatigue, fever, or chills Cardiovascular: No reports of chest pain or palpitations Respiratory: reports of shortness of breath and some cough GI: no reports of nausea, no reports of of vomiting, no reports of diarrhea : No reports of dysuria or retention Neurovascular: reports of generalized weakness, reports lower leg pain All medications have been reviewed Active Medications Acetaminophen (Acetaminophen Tab 325 Mg Tab) 650 mg PO Q4H PRN PRN Reason: Pain Last Admin: 04/20/22 11:04 Dose: 650 mg Hydrocodone Bitart/Acetaminophen (Hydrocodone/Apap 5-325mg 1 Each Tab) 0.5 each PO Q6HR PRN PRN Reason: Pain Last Admin: 04/20/22 12:16 Dose: 0.5 each Albuterol/Ipratropium (Ipratropium-Albuterol 3 Ml Neb) 3 ml INHALATION RT-QID [facility] Last Admin: 04/20/22 11:40 Dose: 3 ml Albuterol/Ipratropium (Ipratropium-Albuterol 3 Ml Neb) 3 ml INHALATION RT-QID PRN PRN Reason: Shortness Of Breath Or Wheezing Apixaban (Apixaban 5 Mg Tab) 5 mg PO BID@0700,1600 [place]; Protocol Last Admin: 04/20/22 06:20 Dose: 5 mg Artificial Tears (Artificial Tears-Hypromellose Drops 15 Ml Btl) 1 drops BOTH EYES TID PRN PRN Reason: Dry Eye(s) Atorvastatin Calcium (Atorvastatin 80 Mg Tab) 80 mg PO HS [facility] Last Admin: 04/19/22 20:21 Dose: 80 mg Buspirone HCl (Buspirone Hcl 10 Mg Tab) 10 mg PO Q8HR [facility] Last Admin: 04/20/22 09:17 Dose: 10 mg Carvedilol (Carvedilol 12.5 Mg Tab) 25 mg PO BID-W/MEALS [facility] Last Admin: 04/20/22 06:19 Dose: 25 mg Cholecalciferol (Cholecalciferol 25 Mcg (1000 Iu) Tablet) 25 mcg PO DAILY [facility] Last Admin: 04/20/22 09:17 Dose: 25 mcg Clopidogrel Bisulfate (Clopidogrel 75 Mg Tab) 75 mg PO DAILY [facility] Last Admin: 04/20/22 09:17 Dose: 75 mg Dextrose/Water (Dextrose 50% Syringe 50 Ml) 25 ml IVP PER PROTOCOL PRN; Protocol PRN Reason: Hypoglycemia Dextrose/Water (Dextrose 50% Syringe 50 Ml) 50 ml IVP PER PROTOCOL PRN; Protocol PRN Reason: Hypoglycemia Docusate Sodium (Docusate 100 Mg Cap) 100 mg PO DAILY [facility] Last Admin: 04/20/22 09:17 Dose: 100 mg Ferrous Sulfate (Ferrous Sulfate 325 Mg Tab) 325 mg PO DAILY [facility] Last Admin: 04/20/22 09:17 Dose: 325 mg Furosemide (Furosemide 10 Mg/Ml 4 Ml Vial) 40 mg IV DAILY [facility] Hydralazine HCl (Hydralazine Hcl 50 Mg Tab) 100 mg PO TID [facility] Last Admin: 04/20/22 09:17 Dose: 100 mg Sodium Chloride (Saline 0.9%) 1,000 mls @ 20 mls/hr IV .Q24H [facility] Last Admin: 04/19/22 14:27 Dose: 20 mls/hr Insulin Aspart (Insuln Asp Prt/Insulin Aspart 100 Unit/Ml 10 Ml Vial) 30 unit SQ AC-BRKFST [facility] Last Admin: 04/20/22 06:20 Dose: 30 unit Insulin Aspart (Insuln Asp Prt/Insulin Aspart 100 Unit/Ml 10 Ml Vial) 20 unit SQ AC-SUPPER [facility] Last Admin: 04/19/22 16:29 Dose: 20 unit Insulin Aspart (Insulin Aspart (Novolog) 100 Unit/Ml Vial) 0 unit SQ ACHS [facility]; Protocol Last Admin: 04/20/22 12:17 Dose: 2 unit Isosorbide Mononitrate (Isosorbide Mononitrate Er 60 Mg Tab.Er.24h) 60 mg PO DAILY [facility] Last Admin: 04/20/22 09:21 Dose: 60 mg Levothyroxine Sodium (Levothyroxine 125 Mcg Tab) 125 mcg PO DAILY@0630 [facility] Last Admin: 04/20/22 06:19 Dose: 125 mcg Lisinopril (Lisinopril 20 Mg Tab) 40 mg PO DAILY [facility] Last Admin: 04/20/22 09:18 Dose: 40 mg Magnesium Oxide (Magnesium Oxide 400 Mg Tab) 400 mg PO DAILY [facility] Last Admin: 04/20/22 09:17 Dose: 400 mg Melatonin (Melatonin 5 Mg Tablet) 10 mg PO HS [facility] Last Admin: 04/19/22 20:21 Dose: 10 mg Pantoprazole Sodium (Pantoprazole 40 Mg Tablet) 40 mg PO AC-BRKFST [facility] Last Admin: 04/20/22 06:20 Dose: 40 mg Pioglitazone HCl (Pioglitazone 15 Mg Tab) 15 mg PO DAILY [facility] Last Admin: 04/20/22 09:16 Dose: 15 mg Polyethylene Glycol (Polyethylene Glycol 3350 17 Gm Powd.Pack) 17 gm PO DAILY PRN PRN Reason: Constipation Last Admin: 04/20/22 09:29 Dose: 17 gm Potassium Chloride (Potassium Chloride Er 20 Meq Tab.Er) 20 meq PO DAILY [facility] Last Admin: 04/20/22 09:17 Dose: 20 meq Sertraline HCl (Sertraline 25 Mg Tab) 25 mg PO DAILY [facility] Last Admin: 04/20/22 09:21 Dose: 25 mg PHYSICAL EXAMINATION: GENERAL: The patient is alert and oriented , Well developed, well nourished. Obese. HEENT: Pupils are round and equally reacting to light. EOMI. no scleral icterus. No conjunctival pallor. Normocephalic, atraumatic. No pharyngeal erythema. No thyromegaly. CARDIOVASCULAR: S1 and S2 muffled PULMONARY: diminished breath sounds bilaterally with no wheezing and some scattered rhonchi noted. ABDOMEN: soft. Nontender on exam. obese. non-distended, normoactive bowel sounds. No palpable organomegaly. MUSCULOSKELETAL: No joint swelling or deformity. EXTREMITIES: No cyanosis, clubbing, or pedal edema. Bilateral lower extremity strength 3/5 NEUROLOGICAL: Gross neurological examination did not reveal any focal deficits. Diffuse weakness SKIN: No rashes. Assessment: Congestive heart failure, acute exacerbation Failure of outpatient treatment Troponin 0.149, possibly type 2 per cardiology due to supply demand mismatch Recent transcatheter aortic valve replacement Gait dysfunction Poor social support Pulmonary embolism GI prophylaxis DVT prophylaxis No code Plan: Recommend to continue with current medications and management with multiple medical consultations following. PT/OT following as patient continues to be weak and has had multiple rehospitalizations admissions this past month for continued weakness and would benefit from subacute rehab for continued PT/OT therapy for strengthening mobility. Patient is maintained on IV Lasix with continued shortness of breath requiring oxygen and will continue and will also continue with DuoNeb treatments. Patient is continued on oral anticoagulant along with blood pressure medications that have been resumed and blood pressure under better control. Patient continues with significant weakness and recommend working with physical therapy daily. Family members at the bedside concerned with her continued weakness and the need to be hospitalized multiple times. Case management and social work also following for possible ECF. Blood sugars mildly elevated and maintained on NovoLog 70/30 and will add sliding scale and recommend continue with Accu-Cheks before meals and at bedtime. Continue with consistent carb heart healthy diet. Patient has been seen and evaluated by PT/OT therapy recommending rehab and patient is scheduled to be discharged to ECF today. Appropriate home medications resumed and recommend to continue monitoring Accu-Cheks before meals and at bedtime and use sliding scale as needed. Due to multiple complex medical issues, prognosis is guarded. The impression and plan of care has been dictated by Eloise Sesay, nurse practitioner as directed. Dr. Charles MD I have performed a history and examination and MDM of this patient, discussed the same with the dictator, and agree with the dictator's assessment and plan as written ,documented as a scribe. Based on total visit time, I have performed more than 50% of the visit. Any additional findings or plans will be noted. Objective - Vital Signs Vital signs: Vital Signs Temp 98.6 F 04/20/22 11:50 Pulse 63 04/20/22 11:51 Resp 18 04/20/22 11:50 BP 141/67 09/01/22 11:50 Pulse Ox 96 04/20/22 11:50 FiO2 Intake & Output 04/19/22 04/20/22 04/20/22 18:59 06:59 18:59 Intake Total 180 Output Total 300 Balance -300 180 Weight 90.718 kg 87.2 kg 87.2 kg Intake: Oral 180 Output: Urine 300 Other: Voiding Method External Catheter External Catheter Toilet # Voids 2 - Labs CBC & Chem 7: 04/19/22 08:47 04/20/22 10:46 Labs: Abnormal Lab Results - Last 24 Hours (Table) 04/19/22 04/19/22 04/19/22 Range/Units 12:59 14:36 14:51 Carbon Dioxide (22-30) mmol/L BUN (7-17) mg/dL Creatinine (0.52-1.04) mg/dL Glucose (74-99) mg/dL POC Glucose (mg/dL) 218 H (70-110) mg/dL Calcium (8.4-10.2) mg/dL Troponin I 0.267 H* 0.391 H* (0.000-0.034) ng/mL 04/19/22 04/20/22 04/20/22 Range/Units 20:10 06:09 10:46 Carbon Dioxide 31 H (22-30) mmol/L BUN 30 H (7-17) mg/dL Creatinine 1.41 H (0.52-1.04) mg/dL Glucose 174 H (74-99) mg/dL POC Glucose (mg/dL) 222 H 224 H (70-110) mg/dL Calcium 8.3 L (8.4-10.2) mg/dL Troponin I (0.000-0.034) ng/mL 04/20/22 Range/Units 11:48 Carbon Dioxide (22-30) mmol/L BUN (7-17) mg/dL Creatinine (0.52-1.04) mg/dL Glucose (74-99) mg/dL POC Glucose (mg/dL) 182 H (70-110) mg/dL Calcium (8.4-10.2) mg/dL Troponin I (0.000-0.034) ng/mL
[2022-04-20 16:33] LABS: Glucose,Whole Blood 234 mg/dL (70-110)
[2022-04-20 20:23] LABS: Glucose,Whole Blood 192 mg/dL (70-110)
[2022-04-20] MEDS: ATORVASTATIN 80 MG TAB PO SCH (20:30)
[2022-04-20] MEDS: MELATONIN 5 MG TABLET PO SCH (20:30)
[2022-04-20] MEDS: SODIUM CHLORIDE 0.9% 1,000 ML IV SCH (22:08)
[2022-04-21 06:34] LABS: Glucose,Whole Blood 173 mg/dL (70-110)
[2022-04-21] MEDS: APIXABAN 5 MG TAB PO SCH ×2 (06:34→17:15)
[2022-04-21] MEDS: PANTOPRAZOLE 40 MG TABLET PO SCH (06:34)
[2022-04-21] MEDS: carvediloL 12.5 MG TAB PO SCH ×2 (06:34→17:15)
[2022-04-21] MEDS: INSULIN ASPART (NovoLOG) 100 UNIT/ML VIAL SQ SCH ×4 (06:34→21:25)
[2022-04-21] MEDS: LEVOTHYROXINE 125 MCG TAB PO SCH (06:34)
[2022-04-21] MEDS: INSULN ASP PRT/INSULIN ASPART 100 UNIT/ML 10 ML VIAL SQ SCH ×2 (06:35→21:26)
[2022-04-21] MEDS: IPRATROPIUM-ALBUTEROL 3 ML NEB INHALATION SCH ×4 (08:04→19:40)
[2022-04-21 08:13] LABS: Basophils % (A) 0 %; Eosinophils # (A) 0.6 k/uL (0-0.7); Eosinophils % (A) 9 %; HCT 28.2 % (34.0-46.0); Hypochromasia Marked; Lymphocytes # (A) 1.3 k/uL (1.0-4.8); Lymphocytes % (A) 20 %; MCHC 30.2 g/dL (31.0-37.0); MCV 89.5 fL (80.0-100.0); Mean Platelet Volume 8.1; Monocytes # (A) 0.6 k/uL (0-1.0); Monocytes % (A) 10 %; Neutrophils # (A) 3.6 k/uL (1.3-7.7); Neutrophils % (A) 58 %; Platelet Count 237 k/uL (150-450); RBC 3.16 m/uL (3.80-5.40); RDW 15.4 % (11.5-15.5); WBC 6.3 k/uL (3.8-10.6)
[2022-04-21 08:26] LABS: HGB 8.5 gm/dL (11.4-16.0)
[2022-04-21 08:44] LABS: Calcium 7.9 mg/dL (8.4-10.2); Magnesium 1.8 mg/dL (1.6-2.3); Potassium 4.3 mmol/L (3.5-5.1)
[2022-04-21] MEDS ORDERED: FUROSEMIDE 10 MG/ML 4 ML VIAL IV SCH (09:00)
--- NOTE | 2022-04-21 09:23 | XR ---
EXAMINATION TYPE: XR chest 1V DATE OF EXAM: 04/21/2022 COMPARISON: 04/19/2020 HISTORY: Shortness of breath TECHNIQUE: Single frontal view of the chest is obtained. FINDINGS: Bilateral lower lobe and trace pleural effusion mild interstitial pattern. Sclerotic lesio n right humerus likely in the bases. Calcified or ossified left axilla densities. Atherosclerotic jazmín nge aorta. Heart size stable. No pneumothorax. IMPRESSION: 1. Bilateral infiltrate and pleural effusion stable. Correlate for pneumonia versus mild venous conge stion
[2022-04-21] MEDS: DOCUSATE 100 MG CAP PO SCH (11:02)
[2022-04-21] MEDS: CHOLECALCIFEROL 25 MCG (1000 IU) TABLET PO SCH (11:02)
[2022-04-21] MEDS: CLOPIDOGREL 75 MG TAB PO SCH (11:02)
[2022-04-21] MEDS: FERROUS SULFATE 325 MG TAB PO SCH (11:03)
[2022-04-21] MEDS: busPIRone HCl 10 MG TAB PO SCH ×2 (11:03→17:15)
[2022-04-21] MEDS: POTASSIUM CHLORIDE ER 20 MEQ TAB.ER PO SCH (11:03)
[2022-04-21] MEDS: lisinopriL 20 MG TAB PO SCH (11:03)
[2022-04-21] MEDS: hydrALAZINE HCL 50 MG TAB PO SCH ×2 (11:04→17:15)
[2022-04-21] MEDS: MAGNESIUM OXIDE 400 MG TAB PO SCH (11:04)
[2022-04-21] MEDS: ISOSORBIDE MONONITRATE ER 60 MG TAB.ER.24H PO SCH (11:15)
[2022-04-21] MEDS: SERTRALINE 25 MG TAB PO SCH (11:27)
--- NOTE | 2022-04-21 11:33 | P.PN ---
Subjective This is a 81 year old female with a past medical history significant for severe aortic stenosis s/p TAVR on 04/05/2022, paroxysmal atrial fibrillation, hypertension, hyperlipidemia, COPD, diabetes, hypothyroidism, CVA, chronic kidney disease, nonobstructive coronary artery disease, obstructive sleep apnea, chronic heart failure with preserved ejection fraction, and pleural effusion with right-sided thoracentesis in July 2021. Patient follows in the office with Dr. Hernandez. We have been asked to see the patient in consultation for congestive heart failure, elevated troponin, and copd exacerbation. Patient presents emergency department with complaints of worsening shortness of breath. She was recently discharged on 04/14/22 after being diagnosed with pulmonary embolism and pneumonia. She presents back to the hospital with increasingly sh ortness of breath, hypoxia. She was very hypertensive on admission with SBP 200s. She was restarted on her home medication and BP improved. DIAGNOSTICS * Echocardiogram 04/06/2022 EF 5055 % moderate increased left ventricular wall thickness, normal functioning past prosthetic aortic valve without stenosis. Moderate concentric LVH. No evidence of pericardial effusion. * Cardiac catheterization history: October 2021 revealed calcified aortic valve and mitral annulus, mild coronary artery disease, severe aortic stenosis, and mild pulmonary hypertension * Patient underwent BURKE and October 2021 revealing normal left ventricular size and systolic function, severely calcified aortic valve with moderate aortic stenosis by mean gradient and severe by planimetry, moderate mitral and tricuspid regurgitation, moderate to severe pulmonary hypertension and no shunting across the interatrial septum. 04/21/2022 Patient seen and examined at bedside, in no acute distress. Her breathing has significantly improved. Her blood pressure significantly improved. She is lying flat in bed with no shortness of breath. Blood pressure 124/68, heart rate 61, 97% on 2 L nasal cannula. BUN 38, serum creatinine 1.7 today. Magnesium 1.8. PHYSICAL EXAM: VITAL SIGNS: Reviewed. GENERAL: Well-developed in no acute distress. HEENT: Head is normocephalic. Pupils are equal, round. Sclerae anicteric. Mucous membranes of the mouth are moist. Neck supple. No JVD LUNGS: Respirations even and unlabored. Lungs clear to auscultation HEART: Regular rate and rhythm. S1 and S2 heard. Systolic ejection murmur noted at right sternal border ABDOMEN: Soft. Nondistended. Nontender. EXTREMITIES: Normal range of motion. No clubbing or cyanosis. Peripheral pulses intact. No lower extremity edema NEUROLOGIC: Awake and alert. Oriented x 3. ASSESSMENT: Hypertensive Urgency Acute on chronic heart failure with preserved ejection fraction Recent Pulmonary embolism, likely secondary to patient not taking Eliquis at home with recent surgery Shortness of breath Elevated troponin, likely secondary to type II [place] secondary to supply demand mismatch History of severe symptomatic aortic stenosis s/p TAVR on 04/05/2022 History of syncopal episodes Recent T12 compression fracture in 01/2022 Paroxysmal atrial fibrillation on Eliquis History of Hypertension Hyperlipidemia Nonobstructive coronary artery disease Obstructive sleep apnea Chronic kidney disease COPD History of pneumonia History of pleural effusion with right-sided thoracentesis in July 2021 PLAN: Transition to PO Lasix 40mg BID Patient with improved BP after restarting her home medications, continue Continue anticoagulation with Eliquis From a cardiology perspective, patient is stable and improved, lying flat in bed comfortably. Can be considered for discharge from a cardiology perspective. Please reach out with any further questions or concerns. Nurse practitioner note has been reviewed by physician. Signing provider agrees with the documented findings, assessment, and plan of care. Objective - Vital Signs Vital signs: Vital Signs Temp 97.3 F L 04/21/22 07:56 Pulse 59 L 04/21/22 08:15 Resp 14 04/21/22 07:56 BP 124/68 04/21/22 07:56 Pulse Ox 94 L 04/21/22 08:05 FiO2 Intake & Output 04/20/22 04/21/22 04/21/22 18:59 06:59 18:59 Intake Total 780 240 Balance 780 240 Weight 87.2 kg Intake: Oral 780 240 Other: Voiding Method Toilet Toilet - Labs CBC & Chem 7: 04/21/22 07:03 04/21/22 07:03 Labs: Abnormal Lab Results - Last 24 Hours (Table) 04/20/22 04/20/22 04/20/22 Range/Units 10:46 11:48 16:31 RBC (3.80-5.40) m/uL Hgb (11.4-16.0) gm/dL Hct (34.0-46.0) % MCHC (31.0-37.0) g/dL Sodium (137-145) mmol/L Carbon Dioxide 31 H (22-30) mmol/L BUN 30 H (7-17) mg/dL Creatinine 1.41 H (0.52-1.04) mg/dL Glucose 174 H (74-99) mg/dL POC Glucose (mg/dL) 182 H 234 H (70-110) mg/dL Calcium 8.3 L (8.4-10.2) mg/dL 04/20/22 04/21/22 04/21/22 Range/Units 20:21 06:32 07:03 RBC 3.16 L (3.80-5.40) m/uL Hgb 8.5 L D (11.4-16.0) gm/dL Hct 28.2 L (34.0-46.0) % MCHC 30.2 L (31.0-37.0) g/dL Sodium (137-145) mmol/L Carbon Dioxide (22-30) mmol/L BUN (7-17) mg/dL Creatinine (0.52-1.04) mg/dL Glucose (74-99) mg/dL POC Glucose (mg/dL) 192 H 173 H (70-110) mg/dL Calcium (8.4-10.2) mg/dL 04/21/22 Range/Units 07:03 RBC (3.80-5.40) m/uL Hgb (11.4-16.0) gm/dL Hct (34.0-46.0) % MCHC (31.0-37.0) g/dL Sodium 135 L (137-145) mmol/L Carbon Dioxide (22-30) mmol/L BUN 38 H (7-17) mg/dL Creatinine 1.71 H (0.52-1.04) mg/dL Glucose 150 H (74-99) mg/dL POC Glucose (mg/dL) (70-110) mg/dL Calcium 7.9 L (8.4-10.2) mg/dL Microbiology - Last 24 Hours (Table) 04/19/22 09:00 Blood Culture - Preliminary Blood No Growth after 24 hours 04/19/22 09:15 Blood Culture - Preliminary Blood No Growth after 24 hours
[2022-04-21 11:42] LABS: Glucose,Whole Blood 142 mg/dL (70-110)
[2022-04-21] MEDS: PIOGLITAZONE 15 MG TAB PO SCH (12:08)
[2022-04-21] MEDS: HYDROcodone/APAP 5-325MG 1 EACH TAB PO PRN (12:12)
--- NOTE | 2022-04-21 14:49 | P.PN ---
Subjective Progress Note Date: 04/21/22 81-year-old female patient, multiple comorbidities including history of severe aortic stenosis with a previous tavern that was undergone on 04/05/2022, proximal atrial fibrillation, previous history of CVA, nonobstructive CAD COPD, obstructive sleep apnea, chronic stage III kidney disease, diabetes mellitus type 2, chronic atrial fibrillation, congestion heart failure, hyperlipidemia and osteoarthritis. The patient was in the hospital on 04/10/2022 with complaints of shortness of breath. The patient at that time underwent further investigation and echocardiogram showed an ejection fraction of 50-55% with moderately decreased LV wall thickness, normally functioning prosthetic valve without any stenosis and moderate concentric LVH without any pericardial effusion. Cardiac catheterization from October 2021 and shown mild nonobstructive coronary artery disease. The patient had a VQ scan that showed septal mesh defects compatible with intermediate probability pulmonary embolism. At that point, the patient was given diagnosis of pulmonary embolism and this was based on a VQ scan that was of an intermediate probability and the patient was started on anticoagulation with Eliquis 10 mg by mouth twice a day initially and subsequently 5 mg by mouth twice a day. This patient was supposed to be on anticoagulation because of her history of proximal atrial fibrillation. Apparently she was not taking the medication. She was seen by cardiology and she was discharged home. The venous Dopplers obtained on 04/13/2022 essentially negative for DVT. The patient was not given a CT angiogram due to her chronically impaired renal function and stage III chronic kidney disease. The patient was discharged home on 04/14/2022 in stable condition to be followed up by primary care physician and cardiology. She was asked to continue the anticoagulation. The patient came back to the emergency department with worsening shortness of breath and a nonproductive cough. No fever. No chills. No angina. No palpitation. Her pulse ox 85% on room air oxygen and patient was placed on 6 L O2 nasal cannula to maintain a saturation above 95%. The patient was seen in the ED. She was afebrile. Nevertheless, her initial blood pressure was low 9/97. Her white cell count was 11.2 with a hemoglobin of 10 and a platelet count of 306, the patient had a creatinine of 1.0 to be in of 30 and the sodium level of 140. LFTs were essentially within normal limits. Troponin was 0.149 and the proBNP level was 3120. Influenza screen was negative and the COVID 19 testing was also negative. The patient had a normal sinus rhythm without any acute ischemic changes on EKG. The patient was given diagnosis of CHF exacerbation for that reason she was admitted to the hospital. The chest x- ray is consistent with CHF. 04/20/2022, the patient is doing well. The patient has no specific complaints. Over the past 24 hours, the patient was started back on her antihypertensive medication and BP is under better control. The patient is also diuresis with Lasix. The patient is a negative fluid balance and she is less short of breath. BUN is at 30 with a creatinine of 1.4 insulin is at 139. The patient is on Lasix and dose has been reduced to 40 mg once a day. She is on 2 L of oxygen by nasal cannula with pulse ox of 96%. 04/21/2022, the patient is being seen for a follow-up.the blood pressure under adequate control and the patient is doing well resting comfortably in bed. Nevertheless, the patient developed an acute kidney injury in the creatinine is up to 1.7. Creatinine is at 38. Sodium level is at 135. The patient has a white cell count of 6.3 with a hemoglobin of 8.5. No nausea. No vomiting. No emesis no chest pain. Chest x-ray showing bilateral pleural effusions smallalong with that there is a mild pulmonary vascular congestion. Objective - Vital Signs Vital signs: Vital Signs Temp 97.7 F 04/21/22 12:00 Pulse 54 L 04/21/22 12:00 Resp 15 04/21/22 12:00 BP 143/64 04/21/22 12:00 Pulse Ox 100 04/21/22 12:00 FiO2 Intake & Output 04/20/22 04/21/22 04/21/22 18:59 06:59 18:59 Intake Total 780 240 Balance 780 240 Weight 87.2 kg Intake: Oral 780 240 Other: Voiding Method Toilet Toilet Toilet - Exam Gen. appearance the patient is calm and comfortable, and the patient on acute respiratory distress, currently on oxygen at 2 L per minute nasal cannula GENERAL: Well-developed in no acute distress. Head exam was generally normal. There was no scleral icterus or corneal arcus. Mucous membranes were moist. HEENT: Head is normocephalic. Neck supple. No JVD LUNGS: Respirations even and unlabored. Lungs essentially clear to auscultation bilaterally. HEART: Regular rate and rhythm. S1 and S2 heard. Systolic ejection murmur noted at right sternal border Abdominal exam revealed normal bowel sounds. The abdomen was soft, non-tender, and without masses, organomegaly, or appreciable enlargement of the abdominal aorta. EXTREMITIES: Normal range of motion. No clubbing or cyanosis. Peripheral pulses intact. No lower extremity edema Neurologically, the patient is awake and alert and the patient does not have any focal neurological deficit. Cranial nerves are essentially intact. Examination of the skin revealed no evidence of significant rashes, suspicious appearing nevi or other concerning lesions. - Labs CBC & Chem 7: 04/21/22 07:03 04/21/22 07:03 Labs: Abnormal Lab Results - Last 24 Hours (Table) 04/20/22 04/20/22 04/21/22 Range/Units 16:31 20:21 06:32 RBC (3.80-5.40) m/uL Hgb (11.4-16.0) gm/dL Hct (34.0-46.0) % MCHC (31.0-37.0) g/dL Sodium (137-145) mmol/L BUN (7-17) mg/dL Creatinine (0.52-1.04) mg/dL Glucose (74-99) mg/dL POC Glucose (mg/dL) 234 H 192 H 173 H (70-110) mg/dL Calcium (8.4-10.2) mg/dL 04/21/22 04/21/22 04/21/22 Range/Units 07:03 07:03 11:40 RBC 3.16 L (3.80-5.40) m/uL Hgb 8.5 L D (11.4-16.0) gm/dL Hct 28.2 L (34.0-46.0) % MCHC 30.2 L (31.0-37.0) g/dL Sodium 135 L (137-145) mmol/L BUN 38 H (7-17) mg/dL Creatinine 1.71 H (0.52-1.04) mg/dL Glucose 150 H (74-99) mg/dL POC Glucose (mg/dL) 142 H (70-110) mg/dL Calcium 7.9 L (8.4-10.2) mg/dL Microbiology - Last 24 Hours (Table) 04/19/22 09:00 Blood Culture - Preliminary Blood No Growth after 24 hours 04/19/22 09:15 Blood Culture - Preliminary Blood No Growth after 24 hours Assessment and Plan Plan: Acute dyspnea likely on the basis of CHF with a chest x-ray showing thyromegaly and pulmonary vessel congestion and small better pleural effusions and elevated proBNP level. EKG showing no acute ischemic changes the patient is known to have nonocclusive coronary artery disease based on recent cardiac catheterization. Clinically improving the patient is clinically improving as the patient is being Lasix and the patient's blood pressures under better control for now. Troponin leak/elevation, doubt acute myocardial infarction the patient probably had a acute troponin leak secondary to hypertensive reaction and decompensated CHF and the patient has nonocclusive coronary artery disease on recent cardiac catheterization Acute hypertensive urgency and the patient presented to the hospital with a systolic blood pressure above 200, improved Acute hypoxic respiratory failure currently on 4 L of nasal cannula Small bilateral pleural effusions with Norvasc congestion secondary to hyperten sive heart diseaseCHF Paroxysmal atrial fibrillation currently in sinus rhythm and the patient is maintained on long-term and coagulation with Eliquis History of severe aortic stenosis with a previous TAVR procedure Chronic stage III kidney disease, with a component of acute kidney injury creati nine up to 1.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 COPD Obstructive sleep apnea not utilizing a device Obesity with a BMI of 39 Hypertension Compression fracture of the T12 spine Questionable history of pulmonary embolism and this was based on the previous VQ scan and the patient on long-term and to coagulation with Eliquis Hyperlipidemia Skin cancer Anemia of chronic disease, hemoglobin is at 10 Remote history of right-sided pleural effusion with previous thoracentesis of the right History of CVA 2014 Plan wean FiO2 as tolerated discontinue IV Lasix Oral Lasix 40 mg by mouth twice a day Monitor renal function Blood pressure under adequate control for now as the patient is receiving Coreg, in January, lisinopril, hydralazine Monitor electrolytes Monitor fluid balance IV fluids to KVO insulin therapy and the patient is currently on NovoLog mix units in the morning and 20 units at supper and a sliding scale coverage Recent echocardiogram was noted Recent cardiac catheterization was noted Recent hospitalization was noted and the patient has been committed to long-term anticoagulation We'll continue to follow
[2022-04-21 16:47] LABS: Glucose,Whole Blood 263 mg/dL (70-110)
[2022-04-21] MEDS: SODIUM CHLORIDE 0.9% 1,000 ML IV SCH (17:04)
[2022-04-21] MEDS: FUROSEMIDE 40 MG TAB PO SCH (17:15)
--- NOTE | 2022-04-21 18:01 | P.PN ---
Subjective Progress Note Date: 04/21/22 This is an 81-year-old female who was recently admitted with features of congestive heart failure acute exacerbation with shortness of breath and is being closely monitored. Multiple medical consultations including pulmonary, cardiology following and patient is maintained on IV Lasix and diuresing. Kennedi neves also had a recent TAVR procedure. Physical therapy to evaluate the patient as patient continues with significant weakness and patient would benefit from an ECF for continued PT/OT therapy for strength and mobility. Patient lives alone and per family is concerned given all her complex comorbidities and feels she would benefit from ECF. Recommend PT/OT therapy daily and will decrease the dos e of IV Lasix. Recommend Accu-Cheks before meals and at bedtime and will add sliding scale this patient is on 7030 NovoLog twice daily with continued elevated blood sugars. Recommend follow-up labs and will continue to monitor closely. Patient is afebrile and continues with some shortness of breath although denies chest pain or palpitations. Patient denies nausea or vomiting and is tolerating diet. 04/21/2022 Patient is seen this morning and currently maintained on IV lasix, duonebs with pulmonary and cardiology following. Patient with worsening kidney functions and being transitioned to oral lasix. Chest xray today shows stable pleural effusions with possible infiltrate vs. vascular congestion. Patient continues with weakness and working with physical therapy daily. Social work following as well and working on ECF. Will follow up with am labs. Review of systems: Constitutional: No reports of fatigue, fever, or chills Cardiovascular: No reports of chest pain or palpitations Respiratory: reports of shortness of breath and some cough GI: no reports of nausea, no reports of of vomiting, no reports of diarrhea : No reports of dysuria or retention Neurovascular: reports of generalized weakness, reports lower leg pain on occasion All medications have been reviewed Active Medications Acetaminophen (Acetaminophen Tab 325 Mg Tab) 650 mg PO Q4H PRN PRN Reason: Pain Last Admin: 04/20/22 20:30 Dose: 650 mg Hydrocodone Bitart/Acetaminophen (Hydrocodone/Apap 5-325mg 1 Each Tab) 0.5 each PO Q6HR PRN PRN Reason: Pain Last Admin: 04/21/22 12:12 Dose: 0.5 each Albuterol/Ipratropium (Ipratropium-Albuterol 3 Ml Neb) 3 ml INHALATION RT-QID [facility] Last Admin: 04/21/22 15:52 Dose: 3 ml Albuterol/Ipratropium (Ipratropium-Albuterol 3 Ml Neb) 3 ml INHALATION RT-QID PRN PRN Reason: Shortness Of Breath Or Wheezing Apixaban (Apixaban 5 Mg Tab) 5 mg PO BID@0700,1600 [facility]; Protocol Last Admin: 04/21/22 17:15 Dose: 5 mg Artificial Tears (Artificial Tears-Hypromellose Drops 15 Ml Btl) 1 drops BOTH EYES TID PRN PRN Reason: Dry Eye(s) Atorvastatin Calcium (Atorvastatin 80 Mg Tab) 80 mg PO HS [facility] Last Admin: 04/20/22 20:30 Dose: 80 mg Buspirone HCl (Buspirone Hcl 10 Mg Tab) 10 mg PO Q8HR [facility] Last Admin: 04/21/22 17:15 Dose: 10 mg Carvedilol (Carvedilol 12.5 Mg Tab) 25 mg PO BID-W/MEALS [facility] Last Admin: 04/21/22 17:15 Dose: 25 mg Cholecalciferol (Cholecalciferol 25 Mcg (1000 Iu) Tablet) 25 mcg PO DAILY [facility] Last Admin: 04/21/22 11:02 Dose: 25 mcg Clopidogrel Bisulfate (Clopidogrel 75 Mg Tab) 75 mg PO DAILY [facility] Last Admin: 04/21/22 11:02 Dose: 75 mg Dextrose/Water (Dextrose 50% Syringe 50 Ml) 25 ml IVP PER PROTOCOL PRN; Protocol PRN Reason: Hypoglycemia Dextrose/Water (Dextrose 50% Syringe 50 Ml) 50 ml IVP PER PROTOCOL PRN; Protocol PRN Reason: Hypoglycemia Docusate Sodium (Docusate 100 Mg Cap) 100 mg PO DAILY [facility] Last Admin: 04/21/22 11:02 Dose: 100 mg Ferrous Sulfate (Ferrous Sulfate 325 Mg Tab) 325 mg PO DAILY [facility] Last Admin: 04/21/22 11:03 Dose: 325 mg Furosemide (Furosemide 40 Mg Tab) 40 mg PO BID@0900,1600 [facility] Last Admin: 04/21/22 17:15 Dose: 40 mg Hydralazine HCl (Hydralazine Hcl 50 Mg Tab) 100 mg PO TID [facility] Last Admin: 04/21/22 17:15 Dose: 100 mg Sodium Chloride (Saline 0.9%) 1,000 mls @ 20 mls/hr IV .Q24H [facility] Last Admin: 04/21/22 17:04 Dose: Not Given Insulin Aspart (Insuln Asp Prt/Insulin Aspart 100 Unit/Ml 10 Ml Vial) 30 unit SQ -KFST [facility] Last Admin: 04/21/22 06:35 Dose: 30 unit Insulin Aspart (Insuln Asp Prt/Insulin Aspart 100 Unit/Ml 10 Ml Vial) 20 unit SQ AC-SUPPER [facility] Last Admin: 04/20/22 17:38 Dose: 20 unit Insulin Aspart (Insulin Aspart (Novolog) 100 Unit/Ml Vial) 0 unit SQ [facility]; Protocol Last Admin: 04/21/22 17:15 Dose: 4 unit Isosorbide Mononitrate (Isosorbide Mononitrate Er 60 Mg Tab.Er.24h) 60 mg PO DAILY [facility] Last Admin: 04/21/22 11:15 Dose: 60 mg Levothyroxine Sodium (Levothyroxine 125 Mcg Tab) 125 mcg PO DAILY@0630 [facility] Last Admin: 04/21/22 06:34 Dose: 125 mcg Lisinopril (Lisinopril 20 Mg Tab) 40 mg PO DAILY [facility] Last Admin: 04/21/22 11:03 Dose: 40 mg Magnesium Oxide (Magnesium Oxide 400 Mg Tab) 400 mg PO DAILY [facility] Last Admin: 04/21/22 11:04 Dose: 400 mg Melatonin (Melatonin 5 Mg Tablet) 10 mg PO [facility] Last Admin: 04/20/22 20:30 Dose: 10 mg Pantoprazole Sodium (Pantoprazole 40 Mg Tablet) 40 mg PO [facility] Last Admin: 04/21/22 06:34 Dose: 40 mg Pioglitazone HCl (Pioglitazone 15 Mg Tab) 15 mg PO DAILY [facility] Last Admin: 04/21/22 12:08 Dose: 15 mg Polyethylene Glycol (Polyethylene Glycol 3350 17 Gm Powd.Pack) 17 gm PO DAILY PRN PRN Reason: Constipation Last Admin: 04/20/22 09:29 Dose: 17 gm Potassium Chloride (Potassium Chloride Er 20 Meq Tab.Er) 20 meq PO DAILY [facility] Last Admin: 04/21/22 11:03 Dose: 20 meq Sertraline HCl (Sertraline 25 Mg Tab) 25 mg PO DAILY [facility] Last Admin: 04/21/22 11:27 Dose: 25 mg PHYSICAL EXAMINATION: GENERAL: The patient is alert and oriented ,ill appearing, Well developed, well nourished. Obese. HEENT: Pupils are round and equally reacting to light. EOMI. no scleral icterus. No conjunctival pallor. Normocephalic, atraumatic. No pharyngeal erythema. No thyromegaly. CARDIOVASCULAR: S1 and S2 muffled PULMONARY: diminished breath sounds bilaterally with no wheezing and some scattered rhonchi noted. ABDOMEN: soft. Nontender on exam. obese. non-distended, normoactive bowel sounds. No palpable organomegaly. MUSCULOSKELETAL: No joint swelling or deformity. EXTREMITIES: No cyanosis, clubbing, or pedal edema. Bilateral lower extremity strength 3/5 NEUROLOGICAL: Gross neurological examination did not reveal any focal deficits. Diffuse weakness SKIN: No rashes. Assessment: Congestive heart failure, acute exacerbation Failure of outpatient treatment and noncompliance with medications acute renal failure, likely secondary to diuretics Troponin 0.149, possibly type 2 per cardiology due to supply demand mismatch Recent transcatheter aortic valve replacement Gait dysfunction Poor social support Pulmonary embolism GI prophylaxis DVT prophylaxis No code Plan: Recommend to continue with current medications and management with multiple medical consultations following. PT/OT following as patient continues to be weak and has had multiple rehospitalizations admissions this past month for cont inued weakness and would benefit from subacute rehab for continued PT/OT therapy for strengthening mobility. Social work following and working on accepting ecf and insurance authorization. Patient was maintained on IV Lasix although having worsening kidney functions and will transition to oral lasix. Patient continues with shortness of breath requiring oxygenand will also continue with DuoNeb ely atments. Patient is continued on oral anticoagulant along with blood pressure medications that have been resumed and blood pressure under better control. Patient continues with significant weakness and recommend working with physical therapy daily. Blood sugars mildly elevated and maintained on NovoLog 70/30 and sliding scale and recommend continue with Accu-Cheks before meals and at bedtime. Continue with consistent carb heart healthy diet. Recommend repeat labs and closely monitoring kidney functions. Due to multiple complex medical issues, prognosis is guarded. The impression and plan of care has been dictated by Eloise Sesay, nurse practitioner as directed. Dr. Tio MD I have performed a history and examination and MDM of this patient, discussed the same with the dictator, and agree with the dictator's assessment and plan as written ,documented as a scribe. Based on total visit time, I have performed more than 50% of the visit. Any additional findings or plans will be noted. Objective - Vital Signs Vital signs: Vital Signs Temp 97.7 F 04/21/22 12:00 Pulse 56 L 04/21/22 17:18 Resp 16 04/21/22 17:18 BP 156/67 04/21/22 17:18 Pulse Ox 98 04/21/22 17:18 FiO2 Intake & Output 04/20/22 04/21/22 04/21/22 18:59 06:59 18:59 Intake Total 780 240 Balance 780 240 Weight 87.2 kg Intake: Oral 780 240 Other: Voiding Method Toilet Toilet Toilet - Labs CBC & Chem 7: 04/21/22 07:03 04/21/22 07:03 Labs: Abnormal Lab Results - Last 24 Hours (Table) 04/20/22 04/21/22 04/21/22 Range/Units 20:21 06:32 07:03 RBC 3.16 L (3.80-5.40) m/uL Hgb 8.5 L D (11.4-16.0) gm/dL Hct 28.2 L (34.0-46.0) % MCHC 30.2 L (31.0-37.0) g/dL Sodium (137-145) mmol/L BUN (7-17) mg/dL Creatinine (0.52-1.04) mg/dL Glucose (74-99) mg/dL POC Glucose (mg/dL) 192 H 173 H (70-110) mg/dL Calcium (8.4-10.2) mg/dL 04/21/22 04/21/22 04/21/22 Range/Units 07:03 11:40 16:46 RBC (3.80-5.40) m/uL Hgb (11.4-16.0) gm/dL Hct (34.0-46.0) % MCHC (31.0-37.0) g/dL Sodium 135 L (137-145) mmol/L BUN 38 H (7-17) mg/dL Creatinine 1.71 H (0.52-1.04) mg/dL Glucose 150 H (74-99) mg/dL POC Glucose (mg/dL) 142 H 263 H (70-110) mg/dL Calcium 7.9 L (8.4-10.2) mg/dL Microbiology - Last 24 Hours (Table) 04/19/22 09:15 Blood Culture - Preliminary Blood No Growth after 48 hours 04/19/22 09:00 Blood Culture - Preliminary Blood No Growth after 48 hours
[2022-04-21 20:36] LABS: Glucose,Whole Blood 270 mg/dL (70-110)
[2022-04-21] MEDS: ATORVASTATIN 80 MG TAB PO SCH (21:40)
[2022-04-21] MEDS: MELATONIN 5 MG TABLET PO SCH (21:40)
[2022-04-22] MEDS: hydrALAZINE HCL 50 MG TAB PO SCH ×2 (00:26→09:24)
[2022-04-22] MEDS: busPIRone HCl 10 MG TAB PO SCH ×3 (00:26→17:26)
[2022-04-22] MEDS: ACETAMINOPHEN TAB 325 MG TAB PO PRN (02:01)
[2022-04-22 06:18] LABS: Glucose,Whole Blood 279 mg/dL (70-110)
[2022-04-22] MEDS: INSULIN ASPART (NovoLOG) 100 UNIT/ML VIAL SQ SCH ×5 (06:42→21:21)
[2022-04-22] MEDS: INSULN ASP PRT/INSULIN ASPART 100 UNIT/ML 10 ML VIAL SQ SCH (06:42)
[2022-04-22] MEDS: PANTOPRAZOLE 40 MG TABLET PO SCH (06:43)
[2022-04-22] MEDS: LEVOTHYROXINE 125 MCG TAB PO SCH (06:43)
[2022-04-22] MEDS: carvediloL 12.5 MG TAB PO SCH ×2 (06:43→17:26)
[2022-04-22] MEDS: APIXABAN 5 MG TAB PO SCH ×2 (06:43→17:25)
[2022-04-22] MEDS: IPRATROPIUM-ALBUTEROL 3 ML NEB INHALATION SCH ×4 (08:19→21:02)
[2022-04-22] MEDS: FERROUS SULFATE 325 MG TAB PO SCH (09:24)
[2022-04-22] MEDS: CLOPIDOGREL 75 MG TAB PO SCH (09:24)
[2022-04-22] MEDS: POTASSIUM CHLORIDE ER 20 MEQ TAB.ER PO SCH (09:24)
[2022-04-22] MEDS: CHOLECALCIFEROL 25 MCG (1000 IU) TABLET PO SCH (09:24)
[2022-04-22] MEDS: DOCUSATE 100 MG CAP PO SCH (09:24)
[2022-04-22] MEDS: SERTRALINE 25 MG TAB PO SCH (09:25)
[2022-04-22] MEDS: FUROSEMIDE 40 MG TAB PO SCH (09:25)
[2022-04-22] MEDS: ISOSORBIDE MONONITRATE ER 60 MG TAB.ER.24H PO SCH (09:25)
[2022-04-22] MEDS: lisinopriL 20 MG TAB PO SCH (09:25)
[2022-04-22] MEDS: MAGNESIUM OXIDE 400 MG TAB PO SCH (09:25)
[2022-04-22] MEDS: PIOGLITAZONE 15 MG TAB PO SCH (09:25)
[2022-04-22 10:51] LABS: Basophils % (A) 0 %; Eosinophils # (A) 0.5 k/uL (0-0.7); Eosinophils % (A) 8 %; HCT 27.5 % (34.0-46.0); HGB 8.2 gm/dL (11.4-16.0); Hypochromasia Marked; Lymphocytes # (A) 0.8 k/uL (1.0-4.8); Lymphocytes % (A) 13 %; MCH 27.1 pg (25.0-35.0); MCHC 29.8 g/dL (31.0-37.0); MCV 90.9 fL (80.0-100.0); Mean Platelet Volume 8.1; Monocytes # (A) 0.7 k/uL (0-1.0); Monocytes % (A) 12 %; Neutrophils # (A) 3.7 k/uL (1.3-7.7); Neutrophils % (A) 62 %; Platelet Count 203 k/uL (150-450); RBC 3.02 m/uL (3.80-5.40); RDW 15.5 % (11.5-15.5); WBC 5.8 k/uL (3.8-10.6)
[2022-04-22 11:06] LABS: Calcium 7.8 mg/dL (8.4-10.2); Magnesium 1.9 mg/dL (1.6-2.3); Potassium 4.5 mmol/L (3.5-5.1)
[2022-04-22 12:22] LABS: Glucose,Whole Blood 254 mg/dL (70-110)
[2022-04-22] MEDS: SODIUM CHLORIDE 0.9% 1,000 ML IV SCH (13:23)
--- NOTE | 2022-04-22 13:59 | P.PN ---
Subjective Progress Note Date: 04/22/22 81-year-old female patient, multiple comorbidities including history of severe aortic stenosis with a previous tavern that was undergone on 04/05/2022, proximal atrial fibrillation, previous history of CVA, nonobstructive CAD COPD, obstructive sleep apnea, chronic stage III kidney disease, diabetes mellitus type 2, chronic atrial fibrillation, congestion heart failure, hyperlipidemia and osteoarthritis. The patient was in the hospital on 04/10/2022 with complaints of shortness of breath. The patient at that time underwent further investigation and echocardiogram showed an ejection fraction of 50-55% with moderately decreased LV wall thickness, normally functioning prosthetic valve without any stenosis and moderate concentric LVH without any pericardial effusion. Cardiac catheterization from October 2021 and shown mild nonobstructive coronary artery disease. The patient had a VQ scan that showed septal mesh defects compatible with intermediate probability pulmonary embolism. At that point, the patient was given diagnosis of pulmonary embolism and this was based on a VQ scan that was of an intermediate probability and the patient was started on anticoagulation with Eliquis 10 mg by mouth twice a day initially and subsequently 5 mg by mouth twice a day. This patient was supposed to be on anticoagulation because of her history of proximal atrial fibrillation. Apparently she was not taking the medication. She was seen by cardiology and she was discharged home. The venous Dopplers obtained on 04/13/2022 essentially negative for DVT. The patient was not given a CT angiogram due to her chronically impaired renal function and stage III chronic kidney disease. The patient was discharged home on 04/14/2022 in stable condition to be followed up by primary care physician and cardiology. She was asked to continue the anticoagulation. The patient came back to the emergency department with worsening shortness of breath and a nonproductive cough. No fever. No chills. No angina. No palpitation. Her pulse ox 85% on room air oxygen and patient was placed on 6 L O2 nasal cannula to maintain a saturation above 95%. The patient was seen in the ED. She was afebrile. Nevertheless, her initial blood pressure was low 9/97. Her white cell count was 11.2 with a hemoglobin of 10 and a platelet count of 306, the patient had a creatinine of 1.0 to be in of 30 and the sodium level of 140. LFTs were essentially within normal limits. Troponin was 0.149 and the proBNP level was 3120. Influenza screen was negative and the COVID 19 testing was also negative. The patient had a normal sinus rhythm without any acute ischemic changes on EKG. The patient was given diagnosis of CHF exacerbation for that reason she was admitted to the hospital. The chest x- ray is consistent with CHF. 04/20/2022, the patient is doing well. The patient has no specific complaints. Over the past 24 hours, the patient was started back on her antihypertensive medication and BP is under better control. The patient is also diuresis with Lasix. The patient is a negative fluid balance and she is less short of breath. BUN is at 30 with a creatinine of 1.4 insulin is at 139. The patient is on Lasix and dose has been reduced to 40 mg once a day. She is on 2 L of oxygen by nasal cannula with pulse ox of 96%. 04/21/2022, the patient is being seen for a follow-up.the blood pressure under adequate control and the patient is doing well resting comfortably in bed. Nevertheless, the patient developed an acute kidney injury in the creatinine is up to 1.7. Creatinine is at 38. Sodium level is at 135. The patient has a white cell count of 6.3 with a hemoglobin of 8.5. No nausea. No vomiting. No emesis no chest pain. Chest x-ray showing bilateral pleural effusions smallalong with that there is a mild pulmonary vascular congestion. 04/22/2022, patient is essentially feeling weak and tired and she is sleeping most of the time is staying in bed TIME. She's been adequately diuresed. The patient's creatinine was up to 1.8 and the BUN is 40 with a sodium level of 136. The white cell count at 5.8 with a hemoglobin of 8.2. The patient has been on oxygen 3 L with a pulse ox of 99%. No other new complaints otherwise for now. Objective - Vital Signs Vital signs: Vital Signs Temp 97.2 F L 04/22/22 08:05 Pulse 60 04/22/22 12:00 Resp 16 04/22/22 11:20 BP 106/57 04/22/22 11:20 Pulse Ox 99 04/22/22 11:20 FiO2 Intake & Output 04/21/22 04/22/22 04/22/22 18:59 06:59 18:59 Intake Total 118 Output Total 400 Balance -282 Intake: Oral 118 Output: Urine 400 Other: Voiding Method Toilet Toilet Toilet - Exam Gen. appearance the patient is calm and comfortable, and the patient on acute respiratory distress, currently on oxygen at 2 L per minute nasal cannula GENERAL: Well-developed in no acute distress. Head exam was generally normal. There was no scleral icterus or corneal arcus. Mucous membranes were moist. HEENT: Head is normocephalic. Neck supple. No JVD LUNGS: Respirations even and unlabored. Lungs essentially clear to auscultation bilaterally. HEART: Regular rate and rhythm. S1 and S2 heard. Systolic ejection murmur noted at right sternal border Abdominal exam revealed normal bowel sounds. The abdomen was soft, non-tender, and without masses, organomegaly, or appreciable enlargement of the abdominal aorta. EXTREMITIES: Normal range of motion. No clubbing or cyanosis. Peripheral pulses intact. No lower extremity edema Neurologically, the patient is awake and alert and the patient does not have any focal neurological deficit. Cranial nerves are essentially intact. Examination of the skin revealed no evidence of significant rashes, suspicious appearing nevi or other concerning lesions. - Labs CBC & Chem 7: 04/22/22 10:16 04/22/22 10:16 Labs: Abnormal Lab Results - Last 24 Hours (Table) 04/21/22 04/21/22 04/22/22 Range/Units 16:46 20:34 06:13 RBC (3.80-5.40) m/uL Hgb (11.4-16.0) gm/dL Hct (34.0-46.0) % MCHC (31.0-37.0) g/dL Lymphocytes # (1.0-4.8) k/uL Sodium (137-145) mmol/L BUN (7-17) mg/dL Creatinine (0.52-1.04) mg/dL Glucose (74-99) mg/dL POC Glucose (mg/dL) 263 H 270 H 279 H (70-110) mg/dL Calcium (8.4-10.2) mg/dL 04/22/22 04/22/22 04/22/22 Range/Units 10:16 10:16 12:16 RBC 3.02 L (3.80-5.40) m/uL Hgb 8.2 L (11.4-16.0) gm/dL Hct 27.5 L (34.0-46.0) % MCHC 29.8 L (31.0-37.0) g/dL Lymphocytes # 0.8 L (1.0-4.8) k/uL Sodium 136 L (137-145) mmol/L BUN 40 H (7-17) mg/dL Creatinine 1.80 H (0.52-1.04) mg/dL Glucose 269 H (74-99) mg/dL POC Glucose (mg/dL) 254 H (70-110) mg/dL Calcium 7.8 L (8.4-10.2) mg/dL Microbiology - Last 24 Hours (Table) 04/19/22 09:15 Blood Culture - Preliminary Blood No Growth after 48 hours 04/19/22 09:00 Blood Culture - Preliminary Blood No Growth after 48 hours Assessment and Plan Plan: Acute dyspnea likely on the basis of CHF with a chest x-ray showing thyromegaly and pulmonary vessel congestion and small better pleural effusions and elevated proBNP level. EKG showing no acute ischemic changes the patient is known to have nonocclusive coronary artery disease based on recent cardiac catheterization. Clinically improving the patient is clinically improving as the patient is being Lasix and the patient's blood pressures under better control for now. Troponin leak/elevation, doubt acute myocardial infarction the patient probably had a acute troponin leak secondary to hypertensive reaction and decompensated CHF and the patient has nonocclusive coronary artery disease on recent cardiac catheterization Acute hypertensive urgency and the patient presented to the hospital with a systolic blood pressure above 200, improved, and the patient's blood pressures under good control for now Acute hypoxic respiratory failure currently on 2 L of nasal cannula Small bilateral pleural effusions with Norvasc congestion secondary to hypertensive heart diseaseCHF Paroxysmal atrial fibrillation currently in sinus rhythm and the patient is maintained on long-term and coagulation with Eliquis History of severe aortic stenosis with a previous TAVR procedure Chronic stage III kidney disease, with a component of acute kidney injury creatinine up to 1. 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 COPD Obstructive sleep apnea not utilizing a device Obesity with a BMI of 39 Hypertension Compression fracture of the T12 spine Questionable history of pulmonary embolism and this was based on the previous VQ scan and the patient on long-term and to coagulation with Eliquis Hyperlipidemia Skin cancer Anemia of chronic disease, hemoglobin is at 10 Remote history of right-sided pleural effusion with previous thoracentesis of the right History of CVA 2014 Plan wean FiO2 as tolerated continue l Lasix 40 mg by mouth twice a day Monitor renal function, creatinine is up to 1.8 Blood pressure under adequate control for now as the patient is receiving Coreg, in January, lisinopril, hydralazine, avoid hypotension Monitor electrolytes Monitor fluid balance IV fluids to KVO insulin therapy and the patient is currently on NovoLog mix units in the morning and 20 units at supper and a sliding scale coverage Recent echocardiogram was noted Recent cardiac catheterization was noted Recent hospitalization was noted and the patient has been committed to long-term anticoagulation Wean down the FiO2 as tolerated and increased mobility We'll continue to follow
[2022-04-22] MEDS ORDERED: SODIUM CHLORIDE 0.9% 500 ML 500 ML IV ONE (14:19)
--- NOTE | 2022-04-22 16:03 | P.PN ---
Subjective Progress Note Date: 04/22/22 This is an 81-year-old female who was recently admitted with features of congestive heart failure acute exacerbation with shortness of breath and is being closely monitored. Multiple medical consultations including pulmonary, cardiology following and patient is maintained on IV Lasix and diuresing. Paula ent also had a recent TAVR procedure. Physical therapy to evaluate the patient as patient continues with significant weakness and patient would benefit from an ECF for continued PT/OT therapy for strength and mobility. Patient lives alone and per family is concerned given all her complex comorbidities and feels she would benefit from ECF. Recommend PT/OT therapy daily and will decrease the dose of IV Lasix. Recommend Accu-Cheks before meals and at bedtime and will add sliding scale this patient is on 7030 NovoLog twice daily with continued elevated blood sugars. Recommend follow-up labs and will continue to monitor closely. Patient is afebrile and continues with some shortness of breath although denies chest pain or palpitations. Patient denies nausea or vomiting and is tolerating diet. 04/21/2022 Patient is seen this morning and currently maintained on IV lasix, duonebs with pulmonary and cardiology following. Patient with worsening kidney functions and being transitioned to oral lasix. Chest xray today shows stable pleural effusions with possible infiltrate vs. vascular congestion. Patient continues with weakness and working with physical therapy daily. Social work following as well and working on ECF. Will follow up with am labs. 04/22/2022 Patient is resting in bed, states she did not sleep well. Has not had BM in 3 days is her main complaint she does have chronic constipation. Feels weak. Labs today showing hgb 8.2, sodium 136, potassium 4.5, BUN 40, creatinine 1.80 which is increased from yesterday. Blood glucose in the 200s. Magnesium 1.9. She presents with BP in the 200s and has been resumed on her home medications which include coreg, hydralazine tid and lisinopril daily. Patient is also on imdur. We will hold hydralazine as well as lisinopril. Lasix on hold for today, 500 cc bolus orderd and will repeat BMP tomorrow. Monitor blood pressure. cardiology is following patient as well as pulmonary services. Review of systems: Constitutional: Reports fatigue. No fever, or chills Cardiovascular: No reports of chest pain or palpitations Respiratory: reports of shortness of breath and some cough GI: no reports of nausea, no reports of of vomiting, no reports of diarrhea : No reports of dysuria or retention Neurovascular: reports of generalized weakness, reports lower leg pain on occasion All medications have been reviewed PHYSICAL EXAMINATION: GENERAL: The patient is alert and oriented ,ill appearing, Well developed, well nourished. Obese. HEENT: Pupils are round and equally reacting to light. EOMI. no scleral icterus. No conjunctival pallor. Normocephalic, atraumatic. No pharyngeal erythema. No thyromegaly. CARDIOVASCULAR: S1 and S2 muffled PULMONARY: diminished breath sounds bilaterally with no wheezing and some scattered rhonchi noted. ABDOMEN: soft. Nontender on exam. obese. non-distended, normoactive bowel sounds. No palpable organomegaly. MUSCULOSKELETAL: No joint swelling or deformity. EXTREMITIES: No cyanosis, clubbing, or pedal edema. Bilateral lower extremity strength 3/5 NEUROLOGICAL: Gross neurological examination did not reveal any focal deficits. Diffuse weakness SKIN: No rashes. Assessment: Congestive heart failure, acute exacerbation, lasix on hold Failure of outpatient treatment and noncompliance with medications Acute renal failure, likely secondary to diuretics, hypotension Troponin 0.149, possibly type 2 per cardiology due to supply demand mismatch Recent transcatheter aortic valve replacement Diabetes mellitus with hyperglycemia, most recent A1C 7.7. in February of 2022. Gait dysfunction Poor social support Pulmonary embolism Chronic anemia GI prophylaxis DVT prophylaxis No code Plan: Continue with current medications and management with multiple medical consultations following. PT/OT following as patient continues to be weak and has had multiple rehospitalizations admissions this past month for continued weakness and would benefit from subacute rehab for continued PT/OT therapy for strengthening mobility. Social work following and working on accepting ecf and insurance authorization. Patient has been transitioned to oral lasix and we will hold oral lasix, lisin opril, and hydralazine. Patient to receive a 500 ml bolus today and follow up with labs and close blood pressure monitoring. Patient continues with shortness of breath requiring oxygen and will also continue with DuoNeb treatments. Continues on oral anticoagulation. Blood glucose remains elevated in the 250s. She continues on Actos, 70-30 mix 30 units breakfast, and 20 units at supper. Also on sliding scale. Will adjust insulin to levemir at HS and will give patient 9 units plus scale for meal time coverage. Discontinue the 70/30 insulin. Repeat labs in AM. If creatinine does not improved will add nephrology consultation. The impression and plan of care has been dictated by Taylor Pierce, Nurse Practitioner as directed. Dr. Tio MD I have performed a history and physical examination and medical decision making of this patient, discussed the same with the dictator, and agree with the dictators assessment and plan as written, documented as a scribe. Based on total visit time, I have performed more than 50% of this visit. Objective - Vital Signs Vital signs: Vital Signs Temp 97.2 F L 04/22/22 08:05 Pulse 60 04/22/22 12:00 Resp 16 04/22/22 11:20 BP 106/57 04/22/22 11:20 Pulse Ox 99 04/22/22 11:20 FiO2 Intake & Output 04/21/22 04/22/22 04/22/22 18:59 06:59 18:59 Intake Total 118 Output Total 400 Balance -282 Intake: Oral 118 Output: Urine 400 Other: Voiding Method Toilet Toilet Toilet - Labs CBC & Chem 7: 04/22/22 10:16 04/22/22 10:16 Labs: Abnormal Lab Results - Last 24 Hours (Table) 04/21/22 04/21/22 04/22/22 Range/Units 16:46 20:34 06:13 RBC (3.80-5.40) m/uL Hgb (11.4-16.0) gm/dL Hct (34.0-46.0) % MCHC (31.0-37.0) g/dL Lymphocytes # (1.0-4.8) k/uL Sodium (137-145) mmol/L BUN (7-17) mg/dL Creatinine (0.52-1.04) mg/dL Glucose (74-99) mg/dL POC Glucose (mg/dL) 263 H 270 H 279 H (70-110) mg/dL Calcium (8.4-10.2) mg/dL 04/22/22 04/22/22 04/22/22 Range/Units 10:16 10:16 12:16 RBC 3.02 L (3.80-5.40) m/uL Hgb 8.2 L (11.4-16.0) gm/dL Hct 27.5 L (34.0-46.0) % MCHC 29.8 L (31.0-37.0) g/dL Lymphocytes # 0.8 L (1.0-4.8) k/uL Sodium 136 L (137-145) mmol/L BUN 40 H (7-17) mg/dL Creatinine 1.80 H (0.52-1.04) mg/dL Glucose 269 H (74-99) mg/dL POC Glucose (mg/dL) 254 H (70-110) mg/dL Calcium 7.8 L (8.4-10.2) mg/dL Microbiology - Last 24 Hours (Table) 04/19/22 09:15 Blood Culture - Preliminary Blood No Growth after 48 hours 04/19/22 09:00 Blood Culture - Preliminary Blood No Growth after 48 hours Assessment and Plan Time with Patient: Less than 30
[2022-04-22 17:07] LABS: Glucose,Whole Blood 190 mg/dL (70-110)
[2022-04-22] MEDS: ATORVASTATIN 80 MG TAB PO SCH (20:16)
[2022-04-22] MEDS: MELATONIN 5 MG TABLET PO SCH (20:16)
[2022-04-22 21:09] LABS: Glucose,Whole Blood 191 mg/dL (70-110)
[2022-04-22] MEDS: INSULIN DETEMIR (LEVEMIR) 100 UNIT/ML SYR SQ SCH (21:20)
[2022-04-23] MEDS: busPIRone HCl 10 MG TAB PO SCH ×4 (00:13→23:26)
[2022-04-23] MEDS: LEVOTHYROXINE 125 MCG TAB PO SCH (06:15)
[2022-04-23] MEDS: PANTOPRAZOLE 40 MG TABLET PO SCH (06:15)
[2022-04-23] MEDS: APIXABAN 5 MG TAB PO SCH ×2 (06:15→17:13)
[2022-04-23] MEDS: carvediloL 12.5 MG TAB PO SCH ×2 (06:15→17:13)
[2022-04-23 06:22] LABS: Basophils % (A) 0 %; Eosinophils # (A) 0.5 k/uL (0-0.7); Eosinophils % (A) 8 %; HCT 28.7 % (34.0-46.0); HGB 8.6 gm/dL (11.4-16.0); Hypochromasia Marked; Lymphocytes # (A) 0.9 k/uL (1.0-4.8); Lymphocytes % (A) 14 %; MCHC 29.9 g/dL (31.0-37.0); MCV 90.3 fL (80.0-100.0); Mean Platelet Volume 8.8; Monocytes # (A) 0.7 k/uL (0-1.0); Monocytes % (A) 10 %; Neutrophils % (A) 64 %; Platelet Count 236 k/uL (150-450); RBC 3.18 m/uL (3.80-5.40); RDW 15.4 % (11.5-15.5); WBC 6.3 k/uL (3.8-10.6)
[2022-04-23 06:43] LABS: Calcium 8.1 mg/dL (8.4-10.2)
[2022-04-23] MEDS: IPRATROPIUM-ALBUTEROL 3 ML NEB INHALATION SCH ×4 (08:23→20:12)
[2022-04-23 09:38] LABS: Glucose,Whole Blood 290 mg/dL (70-110)
[2022-04-23] MEDS: CHOLECALCIFEROL 25 MCG (1000 IU) TABLET PO SCH (10:02)
[2022-04-23] MEDS: FERROUS SULFATE 325 MG TAB PO SCH (10:02)
[2022-04-23] MEDS: SERTRALINE 25 MG TAB PO SCH (10:02)
[2022-04-23] MEDS: ISOSORBIDE MONONITRATE ER 60 MG TAB.ER.24H PO SCH (10:02)
[2022-04-23] MEDS: MAGNESIUM OXIDE 400 MG TAB PO SCH (10:02)
[2022-04-23] MEDS: INSULIN ASPART (NovoLOG) 100 UNIT/ML VIAL SQ SCH ×7 (10:02→21:49)
[2022-04-23] MEDS: CLOPIDOGREL 75 MG TAB PO SCH (10:02)
[2022-04-23] MEDS: DOCUSATE 100 MG CAP PO SCH (10:02)
[2022-04-23] MEDS: PIOGLITAZONE 15 MG TAB PO SCH (10:04)
[2022-04-23] MEDS: ACETAMINOPHEN TAB 325 MG TAB PO PRN (10:09)
[2022-04-23 12:18] LABS: Glucose,Whole Blood 201 mg/dL (70-110)
[2022-04-23] MEDS: SODIUM CHLORIDE 0.9% 1,000 ML IV SCH (12:25)
--- NOTE | 2022-04-23 12:55 | P.PN ---
Subjective Progress Note Date: 04/23/22 81-year-old female patient, multiple comorbidities including history of severe aortic stenosis with a previous tavern that was undergone on 04/05/2022, proximal atrial fibrillation, previous history of CVA, nonobstructive CAD COPD, obstructive sleep apnea, chronic stage III kidney disease, diabetes mellitus type 2, chronic atrial fibrillation, congestion heart failure, hyperlipidemia and osteoarthritis. The patient was in the hospital on 04/10/2022 with complaints of shortness of breath. The patient at that time underwent further investigation and echocardiogram showed an ejection fraction of 50-55% with moderately decreased LV wall thickness, normally functioning prosthetic valve without any stenosis and moderate concentric LVH without any pericardial effusion. Cardiac catheterization from October 2021 and shown mild nonobstructive coronary artery disease. The patient had a VQ scan that showed septal mesh defects compatible with intermediate probability pulmonary embolism. At that point, the patient was given diagnosis of pulmonary embolism and this was based on a VQ scan that was of an intermediate probability and the patient was started on anticoagulation with Eliquis 10 mg by mouth twice a day initially and subsequently 5 mg by mouth twice a day. This patient was supposed to be on anticoagulation because of her history of proximal atrial fibrillation. Apparently she was not taking the medication. She was seen by cardiology and she was discharged home. The venous Dopplers obtained on 04/13/2022 essentially negative for DVT. The patient was not given a CT angiogram due to her chronically impaired renal function and stage III chronic kidney disease. The patient was discharged home on 04/14/2022 in stable condition to be followed up by primary care physician and cardiology. She was asked to continue the anticoagulation. The patient came back to the emergency department with worsening shortness of breath and a nonproductive cough. No fever. No chills. No angina. No palpitation. Her pulse ox 85% on room air oxygen and patient was placed on 6 L O2 nasal cannula to maintain a saturation above 95%. The patient was seen in the ED. She was afebrile. Nevertheless, her initial blood pressure was low 9/97. Her white cell count was 11.2 with a hemoglobin of 10 and a platelet count of 306, the patient had a creatinine of 1.0 to be in of 30 and the sodium level of 140. LFTs were essentially within normal limits. Troponin was 0.149 and the proBNP level was 3120. Influenza screen was negative and the COVID 19 testing was also negative. The patient had a normal sinus rhythm without any acute ischemic changes on EKG. The patient was given diagnosis of CHF exacerbation for that reason she was admitted to the hospital. The chest x- ray is consistent with CHF. 04/20/2022, the patient is doing well. The patient has no specific complaints. Over the past 24 hours, the patient was started back on her antihypertensive medication and BP is under better control. The patient is also diuresis with Lasix. The patient is a negative fluid balance and she is less short of breath. BUN is at 30 with a creatinine of 1.4 insulin is at 139. The patient is on Lasix and dose has been reduced to 40 mg once a day. She is on 2 L of oxygen by nasal cannula with pulse ox of 96%. 04/21/2022, the patient is being seen for a follow-up.the blood pressure under adequate control and the patient is doing well resting comfortably in bed. Nevertheless, the patient developed an acute kidney injury in the creatinine is up to 1.7. Creatinine is at 38. Sodium level is at 135. The patient has a white cell count of 6.3 with a hemoglobin of 8.5. No nausea. No vomiting. No emesis no chest pain. Chest x-ray showing bilateral pleural effusions smallalong with that there is a mild pulmonary vascular congestion. 04/22/2022, patient is essentially feeling weak and tired and she is sleeping most of the time is staying in bed TIME. She's been adequately diuresed. The patient's creatinine was up to 1.8 and the BUN is 40 with a sodium level of 136. The white cell count at 5.8 with a hemoglobin of 8.2. The patient has been on oxygen 3 L with a pulse ox of 99%. No other new complaints otherwise for now. 04/23/2022, the patient is on room air oxygen. She has no specific complaint that she is resting comfortably in bed and her blood pressure control for now. The sodium is at 137 with a potassium level of 5 and a creatinine is stable at 1.7. The patient otherwise has no issues for now. She is on Eliquis 5 mg by mouth twice a day. She is on Levemir insulin for blood sugar control. Objective - Vital Signs Vital signs: Vital Signs Temp 97.9 F 04/23/22 00:00 Pulse 60 04/23/22 12:07 Resp 19 04/23/22 03:43 BP 145/76 04/23/22 03:43 Pulse Ox 92 L 04/23/22 03:43 FiO2 Intake & Output 04/22/22 04/23/22 04/23/22 18:59 06:59 18:59 Intake Total 236 Output Total 400 Balance -164 Intake: Oral 236 Output: Urine 400 Other: Voiding Method Toilet Toilet # Voids 1 - Exam Gen. appearance the patient is calm and comfortable, and the patient on acute respiratory distress, currently on oxygen at room air oxygen GENERAL: Well-developed in no acute distress. Head exam was generally normal. There was no scleral icterus or corneal arcus. Mucous membranes were moist. HEENT: Head is normocephalic. Neck supple. No JVD LUNGS: Respirations even and unlabored. Lungs essentially clear to auscultation bilaterally. HEART: Regular rate and rhythm. S1 and S2 heard. Systolic ejection murmur noted at right sternal border Abdominal exam revealed normal bowel sounds. The abdomen was soft, non-tender, and without masses, organomegaly, or appreciable enlargement of the abdominal aorta. EXTREMITIES: Normal range of motion. No clubbing or cyanosis. Peripheral puls es intact. No lower extremity edema Neurologically, the patient is awake and alert and the patient does not have any focal neurological deficit. Cranial nerves are essentially intact. Examination of the skin revealed no evidence of significant rashes, suspicious appearing nevi or other concerning lesions. - Labs CBC & Chem 7: 04/23/22 05:57 04/23/22 05:57 Labs: Abnormal Lab Results - Last 24 Hours (Table) 04/22/22 04/22/22 04/23/22 Range/Units 16:32 21:08 05:57 RBC 3.18 L (3.80-5.40) m/uL Hgb 8.6 L (11.4-16.0) gm/dL Hct 28.7 L (34.0-46.0) % MCHC 29.9 L (31.0-37.0) g/dL Lymphocytes # 0.9 L (1.0-4.8) k/uL BUN (7-17) mg/dL Creatinine (0.52-1.04) mg/dL Glucose (74-99) mg/dL POC Glucose (mg/dL) 190 H 191 H (70-110) mg/dL Calcium (8.4-10.2) mg/dL 04/23/22 04/23/22 04/23/22 Range/Units 05:57 09:37 12:08 RBC (3.80-5.40) m/uL Hgb (11.4-16.0) gm/dL Hct (34.0-46.0) % MCHC (31.0-37.0) g/dL Lymphocytes # (1.0-4.8) k/uL BUN 44 H (7-17) mg/dL Creatinine 1.74 H (0.52-1.04) mg/dL Glucose 288 H (74-99) mg/dL POC Glucose (mg/dL) 290 H 201 H (70-110) mg/dL Calcium 8.1 L (8.4-10.2) mg/dL Microbiology - Last 24 Hours (Table) 04/19/22 09:00 Blood Culture - Preliminary Blood No Growth after 72 hours 04/19/22 09:15 Blood Culture - Preliminary Blood No Growth after 72 hours Assessment and Plan Plan: Acute dyspnea likely on the basis of CHF with a chest x-ray showing thyromegaly and pulmonary vessel congestion and small better pleural effusions and elevated proBNP level. EKG showing no acute ischemic changes the patient is known to have nonocclusive coronary artery disease based on recent cardiac catheterization. Clinically improving the patient is clinically improving as t he patient is being Lasix and the patient's blood pressures under better control for now. Clinically improved and the patient is not having any shortness of breath and she is currently on room air oxygen Troponin leak/elevation, doubt acute myocardial infarction the patient probably had a acute troponin leak secondary to hypertensive reaction and decompensated CHF and the patient has nonocclusive coronary artery disease on recent cardiac catheterization Acute hypertensive urgency and the patient presented to the hospital with a systolic blood pressure above 200, improved, and the patient's blood pressures under good control for now Acute hypoxic respiratory failure currently on room air oxygen, improved Small bilateral pleural effusions with Norvasc congestion secondary to hypertensive heart diseaseCHF Paroxysmal atrial fibrillation currently in sinus rhythm and the patient is mayur ntained on long-term and coagulation with Eliquis History of severe aortic stenosis with a previous TAVR procedure Chronic stage III kidney disease, with a component of acute kidney injury creatinine up to 1. 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 COPD Obstructive sleep apnea not utilizing a device Obesity with a BMI of 39 Hypertension Compression fracture of the T12 spine Questionable history of pulmonary embolism and this was based on the previous VQ scan and the patient on long-term and to coagulation with Eliquis Hyperlipidemia Skin cancer Anemia of chronic disease, hemoglobin is at 10 Remote history of right-sided pleural effusion with previous thoracentesis of the right History of CVA 2015 Plan wean FiO2 as tolerated, currently on room air oxygen Lasix discontinued Creatinine is stable at 1.7 Blood pressure medication adjustments were made and the patient was taken off the BISI inhibitor and nitrates and hydralazine. The patient remains on Coreg and Imdur for now Monitor electrolytes Monitor fluid balance IV fluids to KVO insulin therapy and the patient is currently on NovoLog mix units in the morning and 20 units at supper and a sliding scale coverage Recent echocardiogram was noted Recent cardiac catheterization was noted Recent hospitalization was noted and the patient has been committed to long-term anticoagulation Wean down the FiO2 as tolerated and increased mobility We'll continue to follow
--- NOTE | 2022-04-23 13:27 | P.PN ---
Subjective Progress Note Date: 04/23/22 This is an 81-year-old female who was recently admitted with features of congestive heart failure acute exacerbation with shortness of breath and is being closely monitored. Multiple medical consultations including pulmonary, cardiology following and patient is maintained on IV Lasix and diuresing. Paula ent also had a recent TAVR procedure. Physical therapy to evaluate the patient as patient continues with significant weakness and patient would benefit from an ECF for continued PT/OT therapy for strength and mobility. Patient lives alone and per family is concerned given all her complex comorbidities and feels she would benefit from ECF. Recommend PT/OT therapy daily and will decrease the dose of IV Lasix. Recommend Accu-Cheks before meals and at bedtime and will add sliding scale this patient is on 7030 NovoLog twice daily with continued elevated blood sugars. Recommend follow-up labs and will continue to monitor closely. Patient is afebrile and continues with some shortness of breath although denies chest pain or palpitations. Patient denies nausea or vomiting and is tolerating diet. 04/21/2022 Patient is seen this morning and currently maintained on IV lasix, duonebs with pulmonary and cardiology following. Patient with worsening kidney functions and being transitioned to oral lasix. Chest xray today shows stable pleural effusions with possible infiltrate vs. vascular congestion. Patient continues with weakness and working with physical therapy daily. Social work following as well and working on ECF. Will follow up with am labs. 04/22/2022 Patient is resting in bed, states she did not sleep well. Has not had BM in 3 days is her main complaint she does have chronic constipation. Feels weak. Labs today showing hgb 8.2, sodium 136, potassium 4.5, BUN 40, creatinine 1.80 which is increased from yesterday. Blood glucose in the 200s. Magnesium 1.9. She presents with BP in the 200s and has been resumed on her home medications which include coreg, hydralazine tid and lisinopril daily. Patient is also on imdur. We will hold hydralazine as well as lisinopril. Lasix on hold for today, 500 cc bolus orderd and will repeat BMP tomorrow. Monitor blood pressure. cardiology is following patient as well as pulmonary services. 04/23/2022 Creatinine has improved to 1.74 today patient did receive fluid bolus yesterday. Lasix hydralazine and lisinopril remain on hold. Blood glucose has improved somewhat with levemir and novolog coverage and will continues this. Patient reports no BM still for 3 to 4 days, abdomen is soft and nontender with normoactive bowel sounds. Sodium today 137, potassium 5.0. Daily potassium supplement has been discontinued. She has remained afebrile, heart rate in the 50s, blood pressure increased to 166 systolic last night and 145 systolic this morning. Review of systems: Constitutional: Reports fatigue. No fever, or chills Cardiovascular: No reports of chest pain or palpitations Respiratory: reports of shortness of breath and some cough GI: no reports of nausea, no reports of of vomiting, no reports of diarrhea : No reports of dysuria or retention Neurovascular: reports of generalized weakness, reports lower leg pain on occa noa All medications have been reviewed PHYSICAL EXAMINATION: GENERAL: The patient is alert and oriented ,ill appearing, Well developed, well nourished. Obese. HEENT: Pupils are round and equally reacting to light. EOMI. no scleral icterus. No conjunctival pallor. Normocephalic, atraumatic. No pharyngeal erythema. No thyromegaly. CARDIOVASCULAR: S1 and S2 muffled PULMONARY: diminished breath sounds bilaterally with no wheezing and some scattered rhonchi noted. ABDOMEN: soft. Nontender on exam. obese. non-distended, normoactive bowel sounds. No palpable organomegaly. MUSCULOSKELETAL: No joint swelling or deformity. EXTREMITIES: No cyanosis, clubbing, or pedal edema. Bilateral lower extremity strength 3/5 NEUROLOGICAL: Gross neurological examination did not reveal any focal deficits. Diffuse weakness SKIN: No rashes. Assessment: Congestive heart failure, acute exacerbation, lasix on hold Failure of outpatient treatment and noncompliance with medications Acute renal failure, likely secondary to diuretics, hypotension Troponin 0.149, possibly type 2 per cardiology due to supply demand mismatch Recent transcatheter aortic valve replacement Diabetes mellitus with hyperglycemia, most recent A1C 7.7. in February of 2022. Gait dysfunction Poor social support Pulmonary embolism Chronic anemia GI prophylaxis DVT prophylaxis No code Plan: Continue with current medications and management with multiple medical consultations following. PT/OT following as patient continues to be weak and has had multiple rehospitalizations admissions this past month for continued weakness and would benefit from subacute rehab for continued PT/OT therapy for strengthening mobility. Social work following and working on accepting ecf and insurance authorization. Patient has been transitioned to oral lasix and we will hold oral lasix, lisinopril, and hydralazine. Shortness of breath has improved, duonebs are continued, she is now on room air. Continues on oral anticoagulation. Blood glucose is trending slowly using levemir and scheduled insulin coverage. Cardiology has cleared the patient and will follow outpatient. Pulmonary consultation in place. Repeat BMP in AM. If creatinine improves will add back lisinopril at lower dose. The impression and plan of care has been dictated by Taylor Pierce, Nurse Practitioner as directed. Dr. Tio MD I have performed a history and physical examination and medical decision making of this patient, discussed the same with the dictator, and agree with the dictators assessment and plan as written, documented as a scribe. Based on total visit time, I have performed more than 50% of this visit. Objective - Vital Signs Vital signs: Vital Signs Temp 97.9 F 04/23/22 00:00 Pulse 56 L 04/23/22 08:34 Resp 19 04/23/22 03:43 BP 145/76 04/23/22 03:43 Pulse Ox 92 L 04/23/22 03:43 FiO2 Intake & Output 04/22/22 04/23/22 04/23/22 18:59 06:59 18:59 Intake Total 236 Output Total 400 Balance -164 Intake: Oral 236 Output: Urine 400 Other: Voiding Method Toilet Toilet # Voids 1 - Labs CBC & Chem 7: 04/23/22 05:57 04/23/22 05:57 Labs: Abnormal Lab Results - Last 24 Hours (Table) 04/22/22 04/22/22 04/22/22 Range/Units 10:16 10:16 12:16 RBC 3.02 L (3.80-5.40) m/uL Hgb 8.2 L (11.4-16.0) gm/dL Hct 27.5 L (34.0-46.0) % MCHC 29.8 L (31.0-37.0) g/dL Lymphocytes # 0.8 L (1.0-4.8) k/uL Sodium 136 L (137-145) mmol/L BUN 40 H (7-17) mg/dL Creatinine 1.80 H (0.52-1.04) mg/dL Glucose 269 H (74-99) mg/dL POC Glucose (mg/dL) 254 H (70-110) mg/dL Calcium 7.8 L (8.4-10.2) mg/dL 04/22/22 04/22/22 04/23/22 Range/Units 16:32 21:08 05:57 RBC 3.18 L (3.80-5.40) m/uL Hgb 8.6 L (11.4-16.0) gm/dL Hct 28.7 L (34.0-46.0) % MCHC 29.9 L (31.0-37.0) g/dL Lymphocytes # 0.9 L (1.0-4.8) k/uL Sodium (137-145) mmol/L BUN (7-17) mg/dL Creatinine (0.52-1.04) mg/dL Glucose (74-99) mg/dL POC Glucose (mg/dL) 190 H 191 H (70-110) mg/dL Calcium (8.4-10.2) mg/dL 04/23/22 Range/Units 05:57 RBC (3.80-5.40) m/uL Hgb (11.4-16.0) gm/dL Hct (34.0-46.0) % MCHC (31.0-37.0) g/dL Lymphocytes # (1.0-4.8) k/uL Sodium (137-145) mmol/L BUN 44 H (7-17) mg/dL Creatinine 1.74 H (0.52-1.04) mg/dL Glucose 288 H (74-99) mg/dL POC Glucose (mg/dL) (70-110) mg/dL Calcium 8.1 L (8.4-10.2) mg/dL Microbiology - Last 24 Hours (Table) 04/19/22 09:00 Blood Culture - Preliminary Blood No Growth after 72 hours 04/19/22 09:15 Blood Culture - Preliminary Blood No Growth after 72 hours Assessment and Plan Time with Patient: Less than 30
[2022-04-23 17:02] LABS: Glucose,Whole Blood 103 mg/dL (70-110)
[2022-04-23 20:17] LABS: Glucose,Whole Blood 175 mg/dL (70-110)
[2022-04-23] MEDS ORDERED: FAMOTIDINE 20 MG TAB PO SCH (21:00)
[2022-04-23] MEDS: ATORVASTATIN 80 MG TAB PO SCH (21:48)
[2022-04-23] MEDS: MELATONIN 5 MG TABLET PO SCH (21:49)
[2022-04-23] MEDS: INSULIN DETEMIR (LEVEMIR) 100 UNIT/ML SYR SQ SCH (23:26)
[2022-04-24 06:12] LABS: Glucose,Whole Blood 169 mg/dL (70-110)
[2022-04-24] MEDS: APIXABAN 5 MG TAB PO SCH ×2 (06:31→17:13)
[2022-04-24] MEDS: carvediloL 12.5 MG TAB PO SCH ×2 (06:32→17:13)
[2022-04-24] MEDS: LEVOTHYROXINE 125 MCG TAB PO SCH (06:32)
--- NOTE | 2022-04-24 07:20 | XR ---
EXAMINATION TYPE: XR chest 1V portable DATE OF EXAM: 04/24/2022 6:06 AM COMPARISON: Chest radiographs from 1922 TECHNIQUE: XR chest 1V portable Frontal view of the chest. CLINICAL INDICATION:Female, 81 years old with history of CHF/COPD. FINDINGS: Bilateral lower lobe mild interstitial pattern redemonstrated with small bilateral pleural effusions with left greater than right. 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 Calcified or ossi fied left axilla densities. Atherosclerotic change aorta. Heart size stable. No pneumothorax. Cardiom egaly with aortic stent graft. IMPRESSION: Bilateral infiltrate and pleural effusions redemonstrated. Slight increase in right pleural effusion. Correlate for pneumonia versus mild venous congestion.
[2022-04-24] MEDS: IPRATROPIUM-ALBUTEROL 3 ML NEB INHALATION SCH ×4 (07:32→20:24)
[2022-04-24 08:23] LABS: Potassium 4.5 mmol/L (3.5-5.1)
[2022-04-24] MEDS: ACETAMINOPHEN TAB 325 MG TAB PO PRN ×2 (10:22→20:17)
--- NOTE | 2022-04-24 10:22 | P.PN ---
Subjective Progress Note Date: 04/24/22 81-year-old female patient, multiple comorbidities including history of severe aortic stenosis with a previous tavern that was undergone on 04/05/2022, proximal atrial fibrillation, previous history of CVA, nonobstructive CAD COPD, obstructive sleep apnea, chronic stage III kidney disease, diabetes mellitus type 2, chronic atrial fibrillation, congestion heart failure, hyperlipidemia and osteoarthritis. The patient was in the hospital on 04/10/2022 with complaints of shortness of breath. The patient at that time underwent further investigation and echocardiogram showed an ejection fraction of 50-55% with moderately decreased LV wall thickness, normally functioning prosthetic valve without any stenosis and moderate concentric LVH without any pericardial effusion. Cardiac catheterization from October 2021 and shown mild nonobstructive coronary artery disease. The patient had a VQ scan that showed septal mesh defects compatible with intermediate probability pulmonary embolism. At that point, the patient was given diagnosis of pulmonary embolism and this was based on a VQ scan that was of an intermediate probability and the patient was started on anticoagulation with Eliquis 10 mg by mouth twice a day initially and subsequently 5 mg by mouth twice a day. This patient was supposed to be on anticoagulation because of her history of proximal atrial fibrillation. Apparently she was not taking the medication. She was seen by cardiology and she was discharged home. The venous Dopplers obtained on 04/13/2022 essentially negative for DVT. The patient was not given a CT angiogram due to her chronically impaired renal function and stage III chronic kidney disease. The patient was discharged home on 04/14/2022 in stable condition to be followed up by primary care physician and cardiology. She was asked to continue the anticoagulation. The patient came back to the emergency department with worsening shortness of breath and a nonproductive cough. No fever. No chills. No angina. No palpitation. Her pulse ox 85% on room air oxygen and patient was placed on 6 L O2 nasal cannula to maintain a saturation above 95%. The patient was seen in the ED. She was afebrile. Nevertheless, her initial blood pressure was low 9/97. Her white cell count was 11.2 with a hemoglobin of 10 and a platelet count of 306, the patient had a creatinine of 1.0 to be in of 30 and the sodium level of 140. LFTs were essentially within normal limits. Troponin was 0.149 and the proBNP level was 3120. Influenza screen was negative and the COVID 19 testing was also negative. The patient had a normal sinus rhythm without any acute ischemic changes on EKG. The patient was given diagnosis of CHF exacerbation for that reason she was admitted to the hospital. The chest x- ray is consistent with CHF. 04/20/2022, the patient is doing well. The patient has no specific complaints. Over the past 24 hours, the patient was started back on her antihypertensive medication and BP is under better control. The patient is also diuresis with Lasix. The patient is a negative fluid balance and she is less short of breath. BUN is at 30 with a creatinine of 1.4 insulin is at 139. The patient is on Lasix and dose has been reduced to 40 mg once a day. She is on 2 L of oxygen by nasal cannula with pulse ox of 96%. 04/21/2022, the patient is being seen for a follow-up.the blood pressure under adequate control and the patient is doing well resting comfortably in bed. Nevertheless, the patient developed an acute kidney injury in the creatinine is up to 1.7. Creatinine is at 38. Sodium level is at 135. The patient has a white cell count of 6.3 with a hemoglobin of 8.5. No nausea. No vomiting. No emesis no chest pain. Chest x-ray showing bilateral pleural effusions smallalong with that there is a mild pulmonary vascular congestion. 04/22/2022, patient is essentially feeling weak and tired and she is sleeping most of the time is staying in bed TIME. She's been adequately diuresed. The patient's creatinine was up to 1.8 and the BUN is 40 with a sodium level of 136. The white cell count at 5.8 with a hemoglobin of 8.2. The patient has been on oxygen 3 L with a pulse ox of 99%. No other new complaints otherwise for now. 04/23/2022, the patient is on room air oxygen. She has no specific complaint that she is resting comfortably in bed and her blood pressure control for now. The sodium is at 137 with a potassium level of 5 and a creatinine is stable at 1.7. The patient otherwise has no issues for now. She is on Eliquis 5 mg by mouth twice a day. She is on Levemir insulin for blood sugar control. 04/24/2022, the patient remains on room air oxygen. The blood pressure was slightly elevated yesterday and based on that, there has been some adjustments made on her blood pressure medication and the patient has a better blood pressure control this morning. A repeat chest x-ray was done and showed small pleural effusion. The patient is having any significant shortness of breath. The patient was able to sit up on a chair all day yesterday. On her blood work, the sodium is at 139 with a potassium of 4.5 and a BUN of 40 with a creatinine of 1.6. Glucose is 151 and the patient on Levemir insulin. In terms of her medication, the patient is currently on Coreg 25 mg by mouth twice a day, Imdur 60 mg by mouth daily, the patient is currently off bisi inhibitors because of her underlying renal dysfunction. Objective - Vital Signs Vital signs: Vital Signs Temp 97.7 F 04/24/22 03:45 Pulse 59 L 04/24/22 07:43 Resp 16 04/24/22 03:45 BP 155/62 04/24/22 03:45 Pulse Ox 94 L 04/24/22 07:32 FiO2 Intake & Output 04/23/22 04/24/22 04/24/22 18:59 06:59 18:59 Intake Total 355 237 Balance 355 237 Weight 91.4 kg Intake: Oral 355 237 Other: Voiding Method Toilet Toilet - Exam Gen. appearance the patient is calm and comfortable, and the patient on acute respiratory distress, currently on oxygen at room air oxygen GENERAL: Well-developed in no acute distress. Head exam was generally normal. There was no scleral icterus or corneal arcus. Mucous membranes were moist. HEENT: Head is normocephalic. Neck supple. No JVD LUNGS: Respirations even and unlabored. Lungs essentially clear to auscultation bilaterally. HEART: Regular rate and rhythm. S1 and S2 heard. Systolic ejection murmur noted at right sternal border Abdominal exam revealed normal bowel sounds. The abdomen was soft, non-tender, and without masses, organomegaly, or appreciable enlargement of the abdominal aorta. EXTREMITIES: Normal range of motion. No clubbing or cyanosis. Peripheral pulses intact. No lower extremity edema Neurologically, the patient is awake and alert and the patient does not have any focal neurological deficit. Cranial nerves are essentially intact. Examination of the skin revealed no evidence of significant rashes, suspicious appearing nevi or other concerning lesions. - Labs CBC & Chem 7: 04/23/22 05:57 04/24/22 06:54 Labs: Abnormal Lab Results - Last 24 Hours (Table) 04/23/22 04/23/22 04/24/22 Range/Units 12:08 20:15 06:11 BUN (7-17) mg/dL Creatinine (0.52-1.04) mg/dL Glucose (74-99) mg/dL POC Glucose (mg/dL) 201 H 175 H 169 H (70-110) mg/dL Calcium (8.4-10.2) mg/dL 04/24/22 Range/Units 06:54 BUN 40 H (7-17) mg/dL Creatinine 1.65 H (0.52-1.04) mg/dL Glucose 151 H (74-99) mg/dL POC Glucose (mg/dL) (70-110) mg/dL Calcium 8.0 L (8.4-10.2) mg/dL Microbiology - Last 24 Hours (Table) 04/19/22 09:00 Blood Culture - Preliminary Blood No Growth after 96 hours 04/19/22 09:15 Blood Culture - Preliminary Blood No Growth after 96 hours Assessment and Plan Plan: Acute dyspnea likely on the basis of CHF with a chest x-ray showing thyromegaly and pulmonary vessel congestion and small better pleural effusions and elevated proBNP level. EKG showing no acute ischemic changes the patient is known to have nonocclusive coronary artery disease based on recent cardiac catheterization. Clinically improving the patient is clinically improving as the patient is being Lasix and the patient's blood pressures under better control for now. Clinically improved and the patient is not having any shortness of breath and she is currently on room air oxygen stays status is stable and the patient not having shortness of breath and the chest x-ray from today showing small bilateral pleural effusion slightly worse on the right. Troponin leak/elevation, doubt acute myocardial infarction the patient probably had a acute troponin leak secondary to hypertensive reaction and decompensated CHF and the patient has nonocclusive coronary artery disease on recent cardiac catheterization Acute hypertensive urgency and the patient presented to the hospital with a systolic blood pressure above 200, improved, and the patient's blood pressures under good control for now and the patient was taken off the hydralazine and the BISI inhibitor/lisinopril. 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 COPD Obstructive sleep apnea not utilizing a device Obesity with a BMI of 39 Hypertension Compression fracture of the T12 spine Questionable history of pulmonary embolism and this was based on the previous VQ scan and the patient on long-term and to coagulation with Eliquis Hyperlipidemia Skin cancer Anemia of chronic disease, hemoglobin is at 10 Remote history of right-sided pleural effusion with previous thoracentesis of the right History of CVA 2015 Plan wean FiO2 as tolerated, currently on room air oxygen Lasix discontinued Creatinine is stable at 1.65 Blood pressure medication adjustments were made and the patient was taken off the BISI inhibitor and nitrates and hydralazine. The patient remains on Coreg and Imdur for now Monitor electrolytes Monitor fluid balance IV fluids to KVO insulin therapy and the patient is currently on NovoLog mix units in the morning and 20 units at supper and a sliding scale coverage Recent echocardiogram was noted Recent cardiac catheterization was noted Recent hospitalization was noted and the patient has been committed to long-term anticoagulation Wean down the FiO2 as tolerated and increased mobility Chest x-ray from today was noted. No major respiratory distress [employer] to make further adjustment of blood pressure medication if needed We'll continue to follow
[2022-04-24] MEDS: PIOGLITAZONE 15 MG TAB PO SCH (10:23)
[2022-04-24] MEDS: CHOLECALCIFEROL 25 MCG (1000 IU) TABLET PO SCH (10:23)
[2022-04-24] MEDS: SERTRALINE 25 MG TAB PO SCH (10:23)
[2022-04-24] MEDS: DOCUSATE 100 MG CAP PO SCH (10:23)
[2022-04-24] MEDS: FERROUS SULFATE 325 MG TAB PO SCH (10:24)
[2022-04-24] MEDS: busPIRone HCl 10 MG TAB PO SCH ×2 (10:24→17:13)
[2022-04-24] MEDS: ISOSORBIDE MONONITRATE ER 60 MG TAB.ER.24H PO SCH (10:24)
[2022-04-24] MEDS: CLOPIDOGREL 75 MG TAB PO SCH (10:24)
[2022-04-24] MEDS: MAGNESIUM OXIDE 400 MG TAB PO SCH (10:24)
[2022-04-24] MEDS: INSULIN ASPART (NovoLOG) 100 UNIT/ML VIAL SQ SCH ×7 (10:24→20:14)
[2022-04-24] MEDS: FAMOTIDINE 20 MG TAB PO SCH (10:24)
[2022-04-24 10:33] LABS: Glucose,Whole Blood 291 mg/dL (70-110)
[2022-04-24 11:45] LABS: Glucose,Whole Blood 258 mg/dL (70-110)
[2022-04-24 16:49] LABS: Glucose,Whole Blood 127 mg/dL (70-110)
--- NOTE | 2022-04-24 17:45 | P.PN ---
Subjective Progress Note Date: 04/24/22 This is an 81-year-old female who was recently admitted with features of congestive heart failure acute exacerbation with shortness of breath and is being closely monitored. Multiple medical consultations including pulmonary, cardiology following and patient is maintained on IV Lasix and diuresing. Paula ent also had a recent TAVR procedure. Physical therapy to evaluate the patient as patient continues with significant weakness and patient would benefit from an ECF for continued PT/OT therapy for strength and mobility. Patient lives alone and per family is concerned given all her complex comorbidities and feels she would benefit from ECF. Recommend PT/OT therapy daily and will decrease the dose of IV Lasix. Recommend Accu-Cheks before meals and at bedtime and will add sliding scale this patient is on 7030 NovoLog twice daily with continued elevated blood sugars. Recommend follow-up labs and will continue to monitor closely. Patient is afebrile and continues with some shortness of breath although denies chest pain or palpitations. Patient denies nausea or vomiting and is tolerating diet. 04/21/2022 Patient is seen this morning and currently maintained on IV lasix, duonebs with pulmonary and cardiology following. Patient with worsening kidney functions and being transitioned to oral lasix. Chest xray today shows stable pleural effusions with possible infiltrate vs. vascular congestion. Patient continues with weakness and working with physical therapy daily. Social work following as well and working on ECF. Will follow up with am labs. 04/22/2022 Patient is resting in bed, states she did not sleep well. Has not had BM in 3 days is her main complaint she does have chronic constipation. Feels weak. Labs today showing hgb 8.2, sodium 136, potassium 4.5, BUN 40, creatinine 1.80 which is increased from yesterday. Blood glucose in the 200s. Magnesium 1.9. She presents with BP in the 200s and has been resumed on her home medications which include coreg, hydralazine tid and lisinopril daily. Patient is also on imdur. We will hold hydralazine as well as lisinopril. Lasix on hold for today, 500 cc bolus orderd and will repeat BMP tomorrow. Monitor blood pressure. cardiology is following patient as well as pulmonary services. 04/23/2022 Creatinine has improved to 1.74 today patient did receive fluid bolus yesterday. Lasix hydralazine and lisinopril remain on hold. Blood glucose has improved somewhat with levemir and novolog coverage and will continues this. Patient reports no BM still for 3 to 4 days, abdomen is soft and nontender with normoactive bowel sounds. Sodium today 137, potassium 5.0. Daily potassium supplement has been discontinued. She has remained afebrile, heart rate in the 50s, blood pressure increased to 166 systolic last night and 145 systolic this morning. 04/24/2022 Patient is sitting up in chair today. She reports feeling fatigued. Repeat chest xray today showing bilateral infiltrate and pleural effusions. There is slight increase in right pleural effusions. Correlate for pneumonia versus mild venous congestion. Cardiology has signed off on the patient. Blood pressure is elevated today will resume hydralazine at lower dose. Continue holding radha inhibitor recommending close monitoring of renal function. Creatinine has improved to 1.64 today, repeat tomorrow. Resume oral lasix. Patient reports that she did have a BM. Review of systems: Constitutional: Reports fatigue. No fever, or chills Cardiovascular: No reports of chest pain or palpitations Respiratory: reports of shortness of breath and some cough GI: no reports of nausea, no reports of of vomiting, no reports of diarrhea : No reports of dysuria or retention Neurovascular: reports of generalized weakness, reports lower leg pain on occasion All medications have been reviewed PHYSICAL EXAMINATION: GENERAL: The patient is alert and oriented ,ill appearing, Well developed, well nourished. Obese. HEENT: Pupils are round and equally reacting to light. EOMI. no scleral icterus. No conjunctival pallor. Normocephalic, atraumatic. No pharyngeal erythema. No thyromegaly. CARDIOVASCULAR: S1 and S2 muffled PULMONARY: diminished breath sounds bilaterally she does have crackles in left posterior lung base ABDOMEN: soft. Nontender on exam. obese. non-distended, normoactive bowel sounds. No palpable organomegaly. MUSCULOSKELETAL: No joint swelling or deformity. EXTREMITIES: No cyanosis, clubbing, or pedal edema. Bilateral lower extremity strength 3/5 NEUROLOGICAL: Gross neurological examination did not reveal any focal deficits. Diffuse weakness SKIN: No rashes. Assessment: Congestive heart failure, acute exacerbation Failure of outpatient treatment and noncompliance with medications Acute renal failure, likely secondary to diuretics, hypotension, improving Troponin 0.149, possibly type 2 per cardiology due to supply demand mismatch Recent transcatheter aortic valve replacement Diabetes mellitus with hyperglycemia, most recent A1C 7.7. in February of 2022. Gait dysfunction Poor social support Pulmonary embolism Chronic anemia GI prophylaxis DVT prophylaxis No code Plan: Continue with current medications and management with multiple medical consultations following. PT/OT following as patient continues to be weak and has had multiple rehospitalizations admissions this past month for continued weakness and would benefit from subacute rehab for continued PT/OT therapy for strengthening mobility. Social work following and working on accepting ecf and insurance authorization. Patient has been transitioned to oral lasix which can be resumed, continue holding radha inhibitor, hydralazine resumed on lower dose. Shortness of breath has improved, duonebs are continued, she is now on room air. Continues on oral anticoagulation. Blood glucose is trending slowly using levemir and scheduled insulin coverage. Cardiology has cleared the patient and will follow outpatient. Pulmonary consultation in place. Repeat BMP in AM. The impression and plan of care has been dictated by Taylor Pierce, Nurse Practitioner as directed. Dr. Tio MD I have performed a history and physical examination and medical decision making of this patient, discussed the same with the dictator, and agree with the dictators assessment and plan as written, documented as a scribe. Based on total visit time, I have performed more than 50% of this visit. Objective - Vital Signs Vital signs: Vital Signs Temp 96.9 F L 04/24/22 10:00 Pulse 61 04/24/22 17:00 Resp 16 04/24/22 17:00 BP 163/64 04/24/22 17:00 Pulse Ox 93 L 04/24/22 17:00 FiO2 Intake & Output 04/23/22 04/24/22 04/24/22 18:59 06:59 18:59 Intake Total 355 237 Balance 355 237 Weight 91.4 kg Intake: Oral 355 237 Other: Voiding Method Toilet Toilet Toilet - Labs CBC & Chem 7: 04/23/22 05:57 04/24/22 06:54 Labs: Abnormal Lab Results - Last 24 Hours (Table) 04/23/22 04/24/22 04/24/22 Range/Units 20:15 06:11 06:54 BUN 40 H (7-17) mg/dL Creatinine 1.65 H (0.52-1.04) mg/dL Glucose 151 H (74-99) mg/dL POC Glucose (mg/dL) 175 H 169 H (70-110) mg/dL Calcium 8.0 L (8.4-10.2) mg/dL 04/24/22 04/24/22 04/24/22 Range/Units 10:28 11:43 16:47 BUN (7-17) mg/dL Creatinine (0.52-1.04) mg/dL Glucose (74-99) mg/dL POC Glucose (mg/dL) 291 H 258 H 127 H (70-110) mg/dL Calcium (8.4-10.2) mg/dL Microbiology - Last 24 Hours (Table) 04/19/22 09:00 Blood Culture - Preliminary Blood No Growth after 120 hours 04/19/22 09:15 Blood Culture - Preliminary Blood No Growth after 120 hours Assessment and Plan Time with Patient: Less than 30
[2022-04-24 20:12] LABS: Glucose,Whole Blood 167 mg/dL (70-110)
[2022-04-24] MEDS: hydrALAZINE HCL 50 MG TAB PO SCH (20:13)
[2022-04-24] MEDS: ATORVASTATIN 80 MG TAB PO SCH (20:13)
[2022-04-24] MEDS: INSULIN DETEMIR (LEVEMIR) 100 UNIT/ML SYR SQ SCH (20:13)
[2022-04-24] MEDS: MELATONIN 5 MG TABLET PO SCH (20:13)
[2022-04-25] MEDS: ACETAMINOPHEN TAB 325 MG TAB PO PRN ×2 (04:43→22:06)
[2022-04-25] MEDS: LEVOTHYROXINE 125 MCG TAB PO SCH (04:43)
[2022-04-25] MEDS: APIXABAN 5 MG TAB PO SCH ×2 (04:43→20:39)
[2022-04-25] MEDS: carvediloL 12.5 MG TAB PO SCH ×2 (04:43→20:39)
[2022-04-25] MEDS: busPIRone HCl 10 MG TAB PO SCH ×4 (04:43→23:12)
[2022-04-25 07:21] LABS: Glucose,Whole Blood 171 mg/dL (70-110)
[2022-04-25] MEDS: INSULIN ASPART (NovoLOG) 100 UNIT/ML VIAL SQ SCH ×7 (07:50→22:07)
[2022-04-25] MEDS: FUROSEMIDE 40 MG TAB PO SCH ×2 (07:57→20:39)
[2022-04-25] MEDS: DOCUSATE 100 MG CAP PO SCH (07:57)
[2022-04-25] MEDS: ISOSORBIDE MONONITRATE ER 60 MG TAB.ER.24H PO SCH (07:57)
[2022-04-25] MEDS: MAGNESIUM OXIDE 400 MG TAB PO SCH (07:57)
[2022-04-25] MEDS: PIOGLITAZONE 15 MG TAB PO SCH (07:57)
[2022-04-25] MEDS: hydrALAZINE HCL 50 MG TAB PO SCH ×2 (07:57→20:34)
[2022-04-25] MEDS: FERROUS SULFATE 325 MG TAB PO SCH (07:57)
[2022-04-25] MEDS: FAMOTIDINE 20 MG TAB PO SCH (07:57)
[2022-04-25] MEDS: CHOLECALCIFEROL 25 MCG (1000 IU) TABLET PO SCH (07:57)
[2022-04-25] MEDS: CLOPIDOGREL 75 MG TAB PO SCH (07:57)
[2022-04-25] MEDS: SERTRALINE 25 MG TAB PO SCH (07:57)
[2022-04-25] MEDS: IPRATROPIUM-ALBUTEROL 3 ML NEB INHALATION SCH ×4 (08:43→19:30)
[2022-04-25 09:43] LABS: Calcium 8.1 mg/dL (8.4-10.2); Potassium 4.6 mmol/L (3.5-5.1)
[2022-04-25 11:52] LABS: Glucose,Whole Blood 240 mg/dL (70-110)
[2022-04-25 19:17] LABS: Glucose,Whole Blood 229 mg/dL (70-110)
[2022-04-25] MEDS: ATORVASTATIN 80 MG TAB PO SCH (20:34)
[2022-04-25 20:40] LABS: Glucose,Whole Blood 171 mg/dL (70-110)
--- NOTE | 2022-04-25 21:41 | P.PN ---
Subjective Progress Note Date: 04/25/22 Principal diagnosis: Acute on chronic diastolic congestive heart failure, and hypertensive urgency Patient was reevaluated today on 04/25/2022, patient is feeling better today, john thing a lot easier. Patient is on 2 L nasal cannula, and doing quite well. Remains on diuretics for her acute diastolic congestive heart failure. Improving clinically, breathing a lot easier today. Electrolytes are normal. BUN is 38 creatinine 1.55, improving. Chest x-ray yesterday showed bilateral pleural effusions and slight increase in the right-sided pleural effusion. All consistent with venous congestion, strongly doubt pneumonia. Objective - Vital Signs Vital signs: Vital Signs Temp 98.1 F 04/25/22 07:53 Pulse 72 04/25/22 19:39 Resp 20 04/25/22 11:03 BP 146/62 04/25/22 11:03 Pulse Ox 99 04/25/22 11:03 FiO2 Intake & Output 04/25/22 04/25/22 04/26/22 06:59 18:59 06:59 Other: Voiding Method Toilet Toilet # Voids 1 - Exam Physical Exam: Revealed 81-year-old female in no distress on 2 L nasal cannula Head: Atraumatic, normocephalic. HEENT:[Neck is supple.] [No neck masses.] [No thyromegaly.] [No JVD.] Chest: [Diminished breath sounds at the bases, no crackles or rhonchi or wheezes Cardiac Exam: [Normal S1 and S2, no S3 gallop, 2/6 systolic murmur thought the precordium Abdomen: [Soft, nontender, no megaly, no rebound, no guarding, normal bowel sounds.] Extremities: [No clubbing, no edema, no cyanosis.] Neurological Exam: [No focal neurologic deficit.] Alert oriented 3 mg focal deficit Skin: No rashes - Labs CBC & Chem 7: 04/23/22 05:57 04/25/22 09:05 Labs: Abnormal Lab Results - Last 24 Hours (Table) 04/25/22 04/25/22 04/25/22 Range/Units 07:20 09:05 11:51 BUN 38 H (7-17) mg/dL Creatinine 1.55 H (0.52-1.04) mg/dL Glucose 222 H (74-99) mg/dL POC Glucose (mg/dL) 171 H 240 H (70-110) mg/dL Calcium 8.1 L (8.4-10.2) mg/dL 04/25/22 04/25/22 Range/Units 17:02 20:37 BUN (7-17) mg/dL Creatinine (0.52-1.04) mg/dL Glucose (74-99) mg/dL POC Glucose (mg/dL) 229 H 171 H (70-110) mg/dL Calcium (8.4-10.2) mg/dL Microbiology - Last 24 Hours (Table) 04/19/22 09:15 Blood Culture - Final Blood No Growth after 144 hours 04/19/22 09:00 Blood Culture - Final Blood No Growth after 144 hours Assessment and Plan Assessment: Impression: Acute diastolic congestive heart failure, likely acute on chronic. Acute renal failure secondary to hypotension, and possibly related to diuretics Acute troponin leak. Recent TAVR History of pulmonary embolism on anticoagulation therapy Chronic anemia Gait dysfunction Type 2 diabetes Recommendation: Continue present supportive care measures Will clear for possible discharge once cleared by cardiology. Continue diuretics Continue to monitor renal profile Follow-up chest x-ray in the next 24 hours. We'll continue to follow. Time with Patient: Less than 30
[2022-04-25] MEDS: MELATONIN 5 MG TABLET PO SCH (22:07)
[2022-04-25] MEDS: INSULIN DETEMIR (LEVEMIR) 100 UNIT/ML SYR SQ SCH (22:07)
--- NOTE | 2022-04-26 00:28 | P.PN ---
Subjective Progress Note Date: 04/25/22 This is an 81-year-old female who was recently admitted with features of congestive heart failure acute exacerbation with shortness of breath and is being closely monitored. Multiple medical consultations including pulmonary, cardiology following and patient is maintained on IV Lasix and diuresing. Kennedi neves also had a recent TAVR procedure. Physical therapy to evaluate the patient as patient continues with significant weakness and patient would benefit from an ECF for continued PT/OT therapy for strength and mobility. Patient lives alone and per family is concerned given all her complex comorbidities and feels she would benefit from ECF. Recommend PT/OT therapy daily and will decrease the dos e of IV Lasix. Recommend Accu-Cheks before meals and at bedtime and will add sliding scale this patient is on 7030 NovoLog twice daily with continued elevated blood sugars. Recommend follow-up labs and will continue to monitor closely. Patient is afebrile and continues with some shortness of breath although denies chest pain or palpitations. Patient denies nausea or vomiting and is tolerating diet. 04/21/2022 Patient is seen this morning and currently maintained on IV lasix, duonebs with pulmonary and cardiology following. Patient with worsening kidney functions and being transitioned to oral lasix. Chest xray today shows stable pleural effusions with possible infiltrate vs. vascular congestion. Patient continues with weakness and working with physical therapy daily. Social work following as well and working on ECF. Will follow up with am labs. 04/22/2022 Patient is resting in bed, states she did not sleep well. Has not had BM in 3 days is her main complaint she does have chronic constipation. Feels weak. Labs today showing hgb 8.2, sodium 136, potassium 4.5, BUN 40, creatinine 1.80 which is increased from yesterday. Blood glucose in the 200s. Magnesium 1.9. She presents with BP in the 200s and has been resumed on her home medications which include coreg, hydralazine tid and lisinopril daily. Patient is also on imdur. We will hold hydralazine as well as lisinopril. Lasix on hold for today, 500 cc bolus orderd and will repeat BMP tomorrow. Monitor blood pressure. cardiology is following patient as well as pulmonary services. 04/23/2022 Creatinine has improved to 1.74 today patient did receive fluid bolus yesterday. Lasix hydralazine and lisinopril remain on hold. Blood glucose has improved somewhat with levemir and novolog coverage and will continues this. Patient reports no BM still for 3 to 4 days, abdomen is soft and nontender with normoactive bowel sounds. Sodium today 137, potassium 5.0. Daily potassium supplement has been discontinued. She has remained afebrile, heart rate in the 50s, blood pressure increased to 166 systolic last night and 145 systolic this morning. 04/24/2022 Patient is sitting up in chair today. She reports feeling fatigued. Repeat chest xray today showing bilateral infiltrate and pleural effusions. There is slight increase in right pleural effusions. Correlate for pneumonia versus mild venous congestion. Cardiology has signed off on the patient. Blood pressure is elevated today will resume hydralazine at lower dose. Continue holding radha inhibitor recommending close monitoring of renal function. Creatinine has improved to 1.64 today, repeat tomorrow. Resume oral lasix. Patient reports that she did have a BM. 04/25/2022 Patient is seen this morning and maintained on duoneb treatments and supplemental 02 of 2L. Pulmonary following and PT recommending rehab and insurance requested peer to peer and has been denied for ecf. Patient will go home with home care that social work is arranging. creatinine is improved at 1.55 today and will continue oral lasix. Review of systems: Constitutional: No reports of fatigue, fever, or chills Cardiovascular: No reports of chest pain or palpitations Respiratory: reports of shortness of breath and some cough GI: no reports of nausea, no reports of of vomiting, no reports of diarrhea : No reports of dysuria or retention Neurovascular: reports of generalized weakness All medications have been reviewed PHYSICAL EXAMINATION: GENERAL: The patient is alert and oriented ,ill appearing, Well developed, well nourished. Obese. HEENT: Pupils are round and equally reacting to light. EOMI. no scleral icterus. No conjunctival pallor. Normocephalic, atraumatic. No pharyngeal erythema. No thyromegaly. CARDIOVASCULAR: S1 and S2 muffled PULMONARY: diminished breath sounds bilaterally with no wheezing and some scattered rhonchi noted. ABDOMEN: soft. Nontender on exam. obese. non-distended, normoactive bowel sounds. No palpable organomegaly. MUSCULOSKELETAL: No joint swelling or deformity. EXTREMITIES: No cyanosis, clubbing, or pedal edema. Bilateral lower extremity strength 3/5 NEUROLOGICAL: Gross neurological examination did not reveal any focal deficits. Diffuse weakness SKIN: No rashes. Assessment: Congestive heart failure, acute exacerbation Failure of outpatient treatment and noncompliance with medications Acute renal failure, likely secondary to diuretics, hypotension, improving Troponin 0.149, possibly type 2 per cardiology due to supply demand mismatch Recent transcatheter aortic valve replacement Diabetes mellitus with hyperglycemia, most recent A1C 7.7. in February of 2022. Gait dysfunction Poor social support Pulmonary embolism Chronic anemia GI prophylaxis DVT prophylaxis No code Plan: Continue with current medications and management with multiple medical consultations following. PT/OT following as patient continues to be weak and has had multiple rehospitalizations admissions this past month for continued weakness and would benefit from subacute rehab for continued PT/OT therapy for strengthening mobility. Social work following and working on home care as peer to peer has been denied by insurance Patient has been transitioned to oral lasix, continue holding radha inhibitor, hydralazine resumed on lower dose. Shortness of breath has improved, duonebs are continued,Continues on oral anticoagulation. Blood glucose is being monitored and recommend accuchecks. Cardiology has cleared the patient and will follow outpatient. Pulmonary following and discharge planning in process Probable discharge in 24 hours to arrange for home care. The impression and plan of care has been dictated by Eloise Sesay, nurse practitioner as directed. Dr. Irma MD I have performed a history and examination and MDM of this patient, discussed the same with the dictator, and agree with the dictator's assessment and plan as written ,documented as a scribe. Based on total visit time, I have performed more than 50% of the visit. Any additional findings or plans will be noted. Objective - Vital Signs Vital signs: Vital Signs Temp 98.1 F 04/25/22 07:53 Pulse 67 04/25/22 11:54 Resp 20 04/25/22 11:03 BP 146/62 04/25/22 11:03 Pulse Ox 99 04/25/22 11:03 FiO2 Intake & Output 04/24/22 04/25/22 04/25/22 18:59 06:59 18:59 Other: Voiding Method Toilet Toilet Toilet # Voids 1 - Labs CBC & Chem 7: 04/23/22 05:57 04/25/22 09:05 Labs: Abnormal Lab Results - Last 24 Hours (Table) 04/24/22 04/24/22 04/25/22 Range/Units 16:47 20:11 07:20 BUN (7-17) mg/dL Creatinine (0.52-1.04) mg/dL Glucose (74-99) mg/dL POC Glucose (mg/dL) 127 H 167 H 171 H (70-110) mg/dL Calcium (8.4-10.2) mg/dL 04/25/22 04/25/22 Range/Units 09:05 11:51 BUN 38 H (7-17) mg/dL Creatinine 1.55 H (0.52-1.04) mg/dL Glucose 222 H (74-99) mg/dL POC Glucose (mg/dL) 240 H (70-110) mg/dL Calcium 8.1 L (8.4-10.2) mg/dL Microbiology - Last 24 Hours (Table) 04/19/22 09:00 Blood Culture - Preliminary Blood No Growth after 120 hours 04/19/22 09:15 Blood Culture - Preliminary Blood No Growth after 120 hours
[2022-04-26 01:14] LABS: Glucose,Whole Blood 242 mg/dL (70-110)
[2022-04-26 06:56] LABS: Glucose,Whole Blood 159 mg/dL (70-110)
[2022-04-26] MEDS: INSULIN ASPART (NovoLOG) 100 UNIT/ML VIAL SQ SCH ×7 (06:56→20:34)
[2022-04-26] MEDS: LEVOTHYROXINE 125 MCG TAB PO SCH (06:56)
[2022-04-26] MEDS: APIXABAN 5 MG TAB PO SCH ×2 (06:56→17:03)
[2022-04-26] MEDS: carvediloL 12.5 MG TAB PO SCH ×2 (06:56→17:03)
[2022-04-26] MEDS: IPRATROPIUM-ALBUTEROL 3 ML NEB INHALATION SCH ×4 (07:14→20:27)
[2022-04-26] MEDS: FAMOTIDINE 20 MG TAB PO SCH (08:49)
[2022-04-26] MEDS: ISOSORBIDE MONONITRATE ER 60 MG TAB.ER.24H PO SCH (08:49)
[2022-04-26] MEDS: PIOGLITAZONE 15 MG TAB PO SCH (08:49)
[2022-04-26] MEDS: CHOLECALCIFEROL 25 MCG (1000 IU) TABLET PO SCH (08:49)
[2022-04-26] MEDS: FUROSEMIDE 40 MG TAB PO SCH ×2 (08:49→17:03)
[2022-04-26] MEDS: busPIRone HCl 10 MG TAB PO SCH ×3 (08:49→22:48)
[2022-04-26] MEDS: DOCUSATE 100 MG CAP PO SCH (08:49)
[2022-04-26] MEDS: MAGNESIUM OXIDE 400 MG TAB PO SCH (08:49)
[2022-04-26] MEDS: SERTRALINE 25 MG TAB PO SCH (08:49)
[2022-04-26] MEDS: FERROUS SULFATE 325 MG TAB PO SCH (08:49)
[2022-04-26] MEDS: hydrALAZINE HCL 50 MG TAB PO SCH ×2 (08:49→20:35)
[2022-04-26] MEDS: CLOPIDOGREL 75 MG TAB PO SCH (08:49)
[2022-04-26] MEDS: ACETAMINOPHEN TAB 325 MG TAB PO PRN ×2 (11:00→23:51)
[2022-04-26 12:05] LABS: Glucose,Whole Blood 109 mg/dL (70-110)
--- NOTE | 2022-04-26 13:36 | P.PN ---
Subjective Progress Note Date: 04/26/22 Principal diagnosis: Acute on chronic diastolic congestive heart failure, and hypertensive urgency Patient was reevaluated today on 04/25/2022, patient is feeling better today, john thing a lot easier. Patient is on 2 L nasal cannula, and doing quite well. Remains on diuretics for her acute diastolic congestive heart failure. Improving clinically, breathing a lot easier today. Electrolytes are normal. BUN is 38 creatinine 1.55, improving. Chest x-ray yesterday showed bilateral pleural effusions and slight increase in the right-sided pleural effusion. All consistent with venous congestion, strongly doubt pneumonia. Reevaluated today on 04/26/22, patient continues to do well, feeling better since admission. And steadily improving. Nonetheless the patient is on 2 L nasal cannula however her O2 sats is 99%. Blood pressure is 161/63. No labs were done today except blood sugar 109 patient is doing great from the pulmonary perspective, and I will clear the patient for discharge if cleared by cardiology. Objective - Vital Signs Vital signs: Vital Signs Temp 98.1 F 04/26/22 08:00 Pulse 60 04/26/22 11:50 Resp 20 04/26/22 08:00 BP 161/63 04/26/22 08:00 Pulse Ox 99 04/26/22 08:00 FiO2 Intake & Output 04/25/22 04/26/22 04/26/22 18:59 06:59 18:59 Intake Total 236 Balance 236 Intake: Oral 236 Other: Voiding Method Toilet Toilet # Voids 1 1 - Exam Physical Exam: Revealed 81-year-old female in no distress on 2 L nasal cannula, O2 saturations 99%. Head: Atraumatic, normocephalic. HEENT:[Neck is supple.] [No neck masses.] [No thyromegaly.] [No JVD.] Chest: Fine crackles at the left base. Cardiac Exam: [Normal S1 and S2, no S3 gallop, 2/6 systolic murmur thought the precordium Abdomen: [Soft, nontender, no megaly, no rebound, no guarding, normal bowel sounds.] Extremities: [No clubbing, no edema, no cyanosis.] Neurological Exam: [No focal neurologic deficit.] Alert oriented 3 mg focal deficit Skin: No rashes - Labs CBC & Chem 7: 04/23/22 05:57 04/25/22 09:05 Labs: Abnormal Lab Results - Last 24 Hours (Table) 04/25/22 04/25/22 04/26/22 Range/Units 17:02 20:37 01:12 POC Glucose (mg/dL) 229 H 171 H 242 H (70-110) mg/dL 04/26/22 Range/Units 06:55 POC Glucose (mg/dL) 159 H (70-110) mg/dL Microbiology - Last 24 Hours (Table) 04/19/22 09:15 Blood Culture - Final Blood No Growth after 144 hours 04/19/22 09:00 Blood Culture - Final Blood No Growth after 144 hours Assessment and Plan Assessment: Impression: Acute diastolic congestive heart failure, likely acute on chronic. Acute renal failure secondary to hypotension, and possibly related to diuretics Acute troponin leak. Recent TAVR History of pulmonary embolism on anticoagulation therapy Chronic anemia Gait dysfunction Type 2 diabetes Recommendation: We will clear the patient to be discharged home if cleared by other consultants and/cardiology Continue present supportive care measures Continue diuretics We'll review chest x-ray from today Name or may not require home oxygen. Patient could be tested for home O2 We'll continue to follow. Time with Patient: Less than 30
--- NOTE | 2022-04-26 15:46 | P.PN ---
Subjective Progress Note Date: 04/26/22 This is an 81-year-old female who was recently admitted with features of congestive heart failure acute exacerbation with shortness of breath and is being closely monitored. Multiple medical consultations including pulmonary, cardiology following and patient is maintained on IV Lasix and diuresing. Kennedi neves also had a recent TAVR procedure. Physical therapy to evaluate the patient as patient continues with significant weakness and patient would benefit from an ECF for continued PT/OT therapy for strength and mobility. Patient lives alone and per family is concerned given all her complex comorbidities and feels she would benefit from ECF. Recommend PT/OT therapy daily and will decrease the dos e of IV Lasix. Recommend Accu-Cheks before meals and at bedtime and will add sliding scale this patient is on 7030 NovoLog twice daily with continued elevated blood sugars. Recommend follow-up labs and will continue to monitor closely. Patient is afebrile and continues with some shortness of breath although denies chest pain or palpitations. Patient denies nausea or vomiting and is tolerating diet. 04/21/2022 Patient is seen this morning and currently maintained on IV lasix, duonebs with pulmonary and cardiology following. Patient with worsening kidney functions and being transitioned to oral lasix. Chest xray today shows stable pleural effusions with possible infiltrate vs. vascular congestion. Patient continues with weakness and working with physical therapy daily. Social work following as well and working on ECF. Will follow up with am labs. 04/22/2022 Patient is resting in bed, states she did not sleep well. Has not had BM in 3 days is her main complaint she does have chronic constipation. Feels weak. Labs today showing hgb 8.2, sodium 136, potassium 4.5, BUN 40, creatinine 1.80 which is increased from yesterday. Blood glucose in the 200s. Magnesium 1.9. She presents with BP in the 200s and has been resumed on her home medications which include coreg, hydralazine tid and lisinopril daily. Patient is also on imdur. We will hold hydralazine as well as lisinopril. Lasix on hold for today, 500 cc bolus orderd and will repeat BMP tomorrow. Monitor blood pressure. cardiology is following patient as well as pulmonary services. 04/23/2022 Creatinine has improved to 1.74 today patient did receive fluid bolus yesterday. Lasix hydralazine and lisinopril remain on hold. Blood glucose has improved somewhat with levemir and novolog coverage and will continues this. Patient reports no BM still for 3 to 4 days, abdomen is soft and nontender with normoactive bowel sounds. Sodium today 137, potassium 5.0. Daily potassium supplement has been discontinued. She has remained afebrile, heart rate in the 50s, blood pressure increased to 166 systolic last night and 145 systolic this morning. 04/24/2022 Patient is sitting up in chair today. She reports feeling fatigued. Repeat chest xray today showing bilateral infiltrate and pleural effusions. There is slight increase in right pleural effusions. Correlate for pneumonia versus mild venous congestion. Cardiology has signed off on the patient. Blood pressure is elevated today will resume hydralazine at lower dose. Continue holding radha inhibitor recommending close monitoring of renal function. Creatinine has improved to 1.64 today, repeat tomorrow. Resume oral lasix. Patient reports that she did have a BM. 04/25/2022 Patient is seen this morning and maintained on duoneb treatments and supplemental 02 of 2L. Pulmonary following and PT recommending rehab and insurance requested peer to peer and has been denied for ecf. Patient will go home with home care that social work is arranging. creatinine is improved at 1.55 today and will continue oral lasix. 04/26/2022 Patient is seen this morning reporting she is not feeling well and does not want to be discharged home as she feels increased shortness of breath. Patient was seen and evaluated on room air and oxygen saturation was 94% although does desat and working on possible oxygen in the home setting to manage her COPD, CHF. social work is following and working on discharge planning needs including Homecare and will arrange for possible home oxygen of 2 L via nasal cannula to manage COPD/CHF. Patient does follow with cardiology outpatient and has been cleared for discharge recommending outpatient follow-up. Pulmonary also following and patient is maintained on oral Lasix and will continue. Patient continues with weakness although has been denied by insurance for rehab and will be arranging for home care. Patient is afebrile denies chest pain or palpitations. Patient's blood sugars are well-controlled on current regimen and recommend heart healthy consistent carb diet. No reports of nausea or vomiting and the patient is tolerating diet. Patient also reports some lower leg pain. Review of systems: Constitutional: No reports of fatigue, fever, or chills Cardiovascular: No reports of chest pain or palpitations Respiratory: reports of shortness of breath and some cough GI: no reports of nausea, no reports of of vomiting, no reports of diarrhea : No reports of dysuria or retention Neurovascular: reports of generalized weakness, reports bilateral lower extremity pain All medications have been reviewed PHYSICAL EXAMINATION: GENERAL: The patient is alert and oriented ,ill appearing, Well developed, well nourished. Obese. HEENT: Pupils are round and equally reacting to light. EOMI. no scleral icterus. No conjunctival pallor. Normocephalic, atraumatic. No pharyngeal erythema. No thyromegaly. CARDIOVASCULAR: S1 and S2 muffled PULMONARY: diminished breath sounds bilaterally with no wheezing and some scattered rhonchi noted. ABDOMEN: soft. Nontender on exam. obese. non-distended, normoactive bowel sounds. No palpable organomegaly. MUSCULOSKELETAL: No joint swelling or deformity. EXTREMITIES: No cyanosis, clubbing, or pedal edema. Bilateral lower extremity strength 3/5 NEUROLOGICAL: Gross neurological examination did not reveal any focal deficits. Diffuse weakness SKIN: No rashes. Assessment: Congestive heart failure, acute exacerbation Failure of outpatient treatment and noncompliance with medications Acute renal failure, likely secondary to diuretics, hypotension, improving Troponin 0.149, possibly type 2 per cardiology due to supply demand mismatch Recent transcatheter aortic valve replacement Diabetes mellitus with hyperglycemia, most recent A1C 7.7. in February of 2022. Gait dysfunction Poor social support Pulmonary embolism Chronic anemia GI prophylaxis DVT prophylaxis No code Plan: Continue with current medications and management with multiple medical consultations following. PT/OT following as patient continues to be weak and has had multiple rehospitalizations admissions this past month for continued weakness and would benefit from subacute rehab for continued PT/OT therapy for strengthening mobility. Social work following and working on home care as peer to peer has been denied by insurance Patient has been transitioned to oral lasix, continue holding radha inhibitor, hydralazine resumed on lower dose. Patient reporting Shortness of breath today and maintained on oral Lasix and has been evaluated by pulmonary recommending discharge planning and outpatient follow-up, duonebs are continued,Continues on oral anticoagulation. Blood glucose is being monitored and recommend accuchecks. Cardiology has cleared the patient and will follow outpatient. Pulmonary f ollowing and discharge planning in process. Need to perform a home O2 assessment and chest x-ray continues to be pending from this morning and unable to read and will follow-up. Will add incentive spirometer and encourage the patient increase activity as tolerated. Probable discharge in 24 hours to arrange for home care and possible home oxygen. The impression and plan of care has been dictated by Eloise Sesay, nurse practitioner as directed. Dr. Irma MD I have performed a history and examination and MDM of this patient, discussed the same with the dictator, and agree with the dictator's assessment and plan as written ,documented as a scribe. Based on total visit time, I have performed more than 50% of the visit. Any additional findings or plans will be noted. Objective - Vital Signs Vital signs: Vital Signs Temp 98.1 F 04/26/22 12:00 Pulse 53 L 04/26/22 12:00 Resp 18 04/26/22 12:00 BP 176/70 04/26/22 12:00 Pulse Ox 93 L 04/26/22 12:00 FiO2 Intake & Output 04/25/22 04/26/22 04/26/22 18:59 06:59 18:59 Intake Total 236 Balance 236 Intake: Oral 236 Other: Voiding Method Toilet Toilet # Voids 1 1 - Labs CBC & Chem 7: 04/23/22 05:57 04/25/22 09:05 Labs: Abnormal Lab Results - Last 24 Hours (Table) 04/25/22 04/25/22 04/26/22 Range/Units 17:02 20:37 01:12 POC Glucose (mg/dL) 229 H 171 H 242 H (70-110) mg/dL 04/26/22 Range/Units 06:55 POC Glucose (mg/dL) 159 H (70-110) mg/dL Microbiology - Last 24 Hours (Table) 04/19/22 09:15 Blood Culture - Final Blood No Growth after 144 hours 04/19/22 09:00 Blood Culture - Final Blood No Growth after 144 hours
[2022-04-26 16:58] LABS: Glucose,Whole Blood 190 mg/dL (70-110)
[2022-04-26 20:14] LABS: Glucose,Whole Blood 181 mg/dL (70-110)
[2022-04-26] MEDS: INSULIN DETEMIR (LEVEMIR) 100 UNIT/ML SYR SQ SCH (20:34)
[2022-04-26] MEDS: MELATONIN 5 MG TABLET PO SCH ×2 (20:35→22:48)
[2022-04-26] MEDS: ATORVASTATIN 80 MG TAB PO SCH (20:35)
[2022-04-27] MEDS: LEVOTHYROXINE 125 MCG TAB PO SCH (06:08)
[2022-04-27] MEDS: APIXABAN 5 MG TAB PO SCH (06:08)
[2022-04-27] MEDS: carvediloL 12.5 MG TAB PO SCH (06:08)
[2022-04-27] MEDS: IPRATROPIUM-ALBUTEROL 3 ML NEB INHALATION SCH ×2 (07:14→11:49)
[2022-04-27 07:16] VITALS: PULSE 56
[2022-04-27 07:20] LABS: Glucose,Whole Blood 136 mg/dL (70-110)
[2022-04-27] MEDS: INSULIN ASPART (NovoLOG) 100 UNIT/ML VIAL SQ SCH ×4 (08:57→12:24)
[2022-04-27] MEDS: DOCUSATE 100 MG CAP PO SCH (08:58)
[2022-04-27] MEDS: PIOGLITAZONE 15 MG TAB PO SCH (08:58)
[2022-04-27] MEDS: CHOLECALCIFEROL 25 MCG (1000 IU) TABLET PO SCH (08:59)
[2022-04-27] MEDS: hydrALAZINE HCL 50 MG TAB PO SCH (08:59)
[2022-04-27] MEDS: ISOSORBIDE MONONITRATE ER 60 MG TAB.ER.24H PO SCH (08:59)
[2022-04-27] MEDS: CLOPIDOGREL 75 MG TAB PO SCH (08:59)
[2022-04-27] MEDS: busPIRone HCl 10 MG TAB PO SCH (08:59)
[2022-04-27] MEDS: FUROSEMIDE 40 MG TAB PO SCH (08:59)
[2022-04-27] MEDS: FAMOTIDINE 20 MG TAB PO SCH (08:59)
[2022-04-27] MEDS: SERTRALINE 25 MG TAB PO SCH (08:59)
[2022-04-27] MEDS: MAGNESIUM OXIDE 400 MG TAB PO SCH (09:00)
[2022-04-27] MEDS: FERROUS SULFATE 325 MG TAB PO SCH (09:00)
[2022-04-27 12:07] LABS: Glucose,Whole Blood 175 mg/dL (70-110)
[2022-04-27 13:20] VITALS: BP 174/66; RESP 17; TEMP 97.6
[2022-04-27] MEDS: ACETAMINOPHEN TAB 325 MG TAB PO PRN (13:31)
--- NOTE | 2022-04-27 22:15 | XR ---
EXAMINATION TYPE: XR chest 1V portable DATE OF EXAM: 04/26/2022 CLINICAL HISTORY: Difficulty breathing and CHF progress study. TECHNIQUE: Single AP portable upright view of the chest is obtained. COMPARISON: Chest x-ray from 2 days earlier FINDINGS: Diminished inspiration with left greater than right bibasilar opacities redemonstrated. Pe rsistent cardiomegaly with atherosclerotic thoracic aorta and stent graft in the aortic root redemons trated. Upper lungs remain clear without pneumothorax. Sclerotic lesion right proximal humerus favors benign bone island is redemonstrated. IMPRESSION: Diminished inspiration. Persistent cardiomegaly with left greater than right bibasilar ac [place] infiltrate and/or atelectasis and small left pleural effusion. No significant change from most re cent x-ray.
--- NOTE | 2022-05-02 22:53 | CDI ---
Documentation Clarification Form Date: 05/02/2022 10:38:40 PM From: Faina Gay Phone: Admit Date: 04/19/2022 12:43:00 PM Patient Name: Neva Pool Visit Number: [id number] Discharge Date: 04/27/2022 03:33:00 PM ATTENTION: The Clinical Documentation Specialists (CDI) and [facility] Coding Staff appreciate your assistance in clarifying documentation. Please respond to the clarification below the line at the bottom and electronically sign. The CDI & [facility] Coding staff will review the response and follow-up if needed. Please note: Queries are made part of the Legal Health Record. If you have any questions, please contact the author of this message via ITS. Dr. Wells E Stephanie Pulmonary embolism is documented per [facility] Note Progress Note 04/26/22 which may lack sufficient clinical evidence/support in the medical record. Additional clarification is requested. History/Risk Factors: 81yo F, COPD with exacerbation, CHF (congestive heart failure), Non-STEMI (non-ST elevated myocardial infarction), recent transcather aortic valve replacement, gait dysfcn, poor social support Clinical Indicators: PE was diagnosed the previous admission and was discharged 5 days prior to this admission. The patient had a VQ scan that showed septal mesh defects compatible with intermediate probability pulmonary embolism. At that point, the patient was given diagnosis of pulmonary embolism and this was based on a VQ scan that was of an intermediate probability and the patient was started on anticoagulation with Eliquis 10 mg by mouth twice a day initially and subsequently 5 mg by mouth twice a day. Treatment: Eliquis Please clarify if pulmonary embolism is a valid diagnosis and acuity? [ ] Yes, Pulmonary embolism is present as evidence by (additional clinical support): [ ] Acute [ ] Chronic [ ] Unspecified [ ] No, Pulmonary embolism is ruled out [ ] Other (please specify diagnosis) [ ] Unable to determine (Template Last Revised: October 2020) unable to determine , not seen the pt MTDD
--- NOTE | 2022-05-04 14:20 | P.DS ---
Providers Date of admission: 04/19/22 12:43 Expected date of discharge: 04/27/22 Attending physician: Russell Brown MD Consults: 04/19/22 12:43 Consult Physician Routine Consulting Provider: Renée Hernandez Consult Reason/Comments: CHF, elevated troponin, COPD exacerbation Do you want consulting provider notified?: Yes 04/19/22 13:37 Consult Physician Routine Consulting Provider: See Rodriguez Consult Reason/Comments: chf/ recent PE dx Do you want consulting provider notified?: Yes Primary care physician: Dontae Dawn Hospital Course: Final diagnosis Acute on chronic Congestive heart failure, acute exacerbation with preserved EF Failure of outpatient treatment and noncompliance with medications Acute renal failure, likely secondary to diuretics, hypotension, improving Pulmonary embolism on recent previous admission as determined by VQ scan showing triple match compatible with intermediate probability for pulmonary embolism Troponin 0.149, possibly type 2 per cardiology due to supply demand mismatch Recent transcatheter aortic valve replacement Diabetes mellitus with hyperglycemia, most recent A1C 7.7. in February of 2022. Gait dysfunction Poor social support Chronic anemia GI prophylaxis DVT prophylaxis No code Discharge disposition Patient is being discharged in a stable condition with guarded prognosis to home and will arrange for home care. Patient will follow-up with Dr. Dawn in the outpatient setting upon discharge. Patient is to follow-up with cardiology and pulmonary as scheduled. Total time taken is greater than 35 minutes. Hospital course This is a 81-year-old female who was recently admitted with increased shortness of breath and weakness and was being closely monitored. Patient admitted for CHF exacerbation. Patient was being followed by cardiology along with pulmonary recommending close outpatient follow-up. Patient has had multiple hospitalizations and continues to become more weak and also with history of noncompliance of medications with rehab being considered although insurance is denying recommending home with home care or long-term care with increased supervision at home. Patient will be going home with home care being arranged close outpatient follow-up with cardiology and pulmonary. Patient also encouraged to follow-up with primary care provider on discharge. Repeat labs in the next few days as well to monitor kidney functions. Currently no reports of chest pain, shortness of breath, or palpitations. Patient is afebrile. No reports of nausea or vomiting and patient is tolerating diet. Patient will be discharged home today. Her prognosis. Physical exam: Gen: This is a 81-year-old female awake, alert and oriented 3, well-developed, well-nourished, obese. HEENT: Head is atraumatic, normocephalic. Pupils equal, round. Sclerae is anicteric. NECK: Supple. No JVD. No lymphadenopathy. No thyromegaly. LUNGS: Diminished breath sounds bilaterally with some scattered rhonchi noted. No intercostal retractions. HEART: Regular rate and rhythm. No murmur. ABDOMEN: Soft. Obese Bowel sounds are present. No masses. No tenderness. EXTREMITIES: No pedal edema. No calf tenderness. NEUROLOGICAL: Patient is awake, alert and oriented x3. Cranial nerves 2 through 12 are grossly intact. Diffuse weakness Please refer to medication reconciliation sheet for a list of medications. The impression and plan of care has been dictated by Eloise Sesay, Nurse Practitioner as directed. Dr. Irma MD I have performed a history and examination and MDM of this patient, discussed the same with the dictator, and agree with the dictator's assessment and plan as written ,documented as a scribe. Based on total visit time, I have performed more than 50% of the visit. Patient Condition at Discharge: Fair Plan - Discharge Summary Discharge Rx Participant: No New Discharge Prescriptions: New carvediloL [Coreg*] 25 mg PO BID-W/MEALS 30 Days #120 tab Apixaban [Eliquis] 5 mg PO BID@0700,1600 tab hydrALAZINE HCL [Apresoline] 50 mg PO BID #60 tab Continue Atorvastatin [Lipitor] 80 mg PO HS Sertraline [Zoloft] 25 mg PO DAILY Isosorbide Mononitrate ER [Imdur] 60 mg PO DAILY Melatonin [Melatonin ER] 10 mg PO HS Magnesium Oxide [Mag-Ox] 400 mg PO DAILY Furosemide [Lasix] 40 mg PO BID@0900,1600 Pioglitazone [Actos] 15 mg PO DAILY Docusate [Colace] 100 mg PO DAILY Artificial Tears-Hypromellose [Artificial Tear Drops] 1 drop BOTH EYES TID PRN PRN Reason: Dry Eye(S) polyethylene glycoL 3350 [Miralax] 17 gm PO DAILY PRN PRN Reason: Constipation Levothyroxine Sodium [Synthroid] 125 mcg PO DAILY busPIRone HCl [Buspar] 10 mg PO Q8H #90 tab Insuln Asp Prt/Insulin Aspart [NovoLOG MIX 70-30 VIAL] 20 unit SQ AC-SUPPER 30 Days #5 each Acetaminophen Tab [Tylenol] 650 mg PO Q4H PRN #60 tab PRN Reason: Pain Ferrous Sulfate [Feosol] 325 mg PO DAILY Cholecalciferol [Vitamin D3 (25 Mcg = 1000 Iu)] 25 mcg PO DAILY Omeprazole [PriLOSEC] 40 mg PO DAILY Potassium Chloride [Klor-Con M20] 20 meq PO DAILY Clopidogrel [Plavix] 75 mg PO DAILY #30 tab Albuterol Inhaler [Ventolin Hfa Inhaler] 2 puff INHALATION RT-Q6H PRN #1 each PRN Reason: Shortness Of Breath Discontinued lisinopriL 40 mg PO DAILY Insuln Asp Prt/Insulin Aspart [NovoLOG MIX 70-30 VIAL] 30 unit SQ AC-BRKFST 30 Days #5 each hydrALAZINE HCL [Apresoline] 100 mg PO TID tab carvediloL [Coreg*] 12.5 mg PO BID-W/MEALS 30 Days #60 tab Apixaban [Eliquis] See Taper PO BID@0700,1600 No Action Insuln Asp Prt/Insulin Aspart [NovoLOG MIX 70-30 VIAL] 30 unit SQ AC-BRKFST Discharge Medication List Atorvastatin [Lipitor] 80 mg PO HS 06/30/18 [History] Sertraline [Zoloft] 25 mg PO DAILY 08/30/21 [History] Artificial Tears-Hypromellose [Artificial Tear Drops] 1 drop BOTH EYES TID PRN 09/24/21 [History] Isosorbide Mononitrate ER [Imdur] 60 mg PO DAILY 09/24/21 [History] Levothyroxine Sodium [Synthroid] 125 mcg PO DAILY 12/01/21 [History] Magnesium Oxide [Mag-Ox] 400 mg PO DAILY 12/01/21 [History] Melatonin [Melatonin ER] 10 mg PO HS 12/01/21 [History] polyethylene glycoL 3350 [Miralax] 17 gm PO DAILY PRN 12/01/21 [History] busPIRone HCl [Buspar] 10 mg PO Q8H #90 tab 12/02/21 [Rx] Acetaminophen Tab [Tylenol] 650 mg PO Q4H PRN #60 tab 12/21/21 [Rx] Insuln Asp Prt/Insulin Aspart [NovoLOG MIX 70-30 VIAL] 20 unit SQ AC-SUPPER 30 Days #5 each 12/21/21 [Rx] Ferrous Sulfate [Feosol] 325 mg PO DAILY 03/02/22 [History] Cholecalciferol [Vitamin D3 (25 Mcg = 1000 Iu)] 25 mcg PO DAILY 04/04/22 [History] Furosemide [Lasix] 40 mg PO BID@0900,1600 04/04/22 [History] Omeprazole [PriLOSEC] 40 mg PO DAILY 04/04/22 [History] Potassium Chloride [Klor-Con M20] 20 meq PO DAILY 04/04/22 [History] Pioglitazone [Actos] 15 mg PO DAILY 04/05/22 [History] Clopidogrel [Plavix] 75 mg PO DAILY #30 tab 04/06/22 [Rx] Albuterol Inhaler [Ventolin Hfa Inhaler] 2 puff INHALATION RT-Q6H PRN #1 each 04/14/22 [Rx] Docusate [Colace] 100 mg PO DAILY 04/19/22 [History] Apixaban [Eliquis] 5 mg PO BID@0700,1600 tab 04/27/22 [Rx] carvediloL [Coreg*] 25 mg PO BID-W/MEALS 30 Days #120 tab 04/27/22 [Rx] hydrALAZINE HCL [Apresoline] 50 mg PO BID #60 tab 04/27/22 [Rx] Insuln Asp Prt/Insulin Aspart [NovoLOG MIX 70-30 VIAL] 30 unit SQ AC-BRKFST 05/01/22 [History] Follow up Appointment(s)/Referral(s): Elder Snider MD [STAFF PHYSICIAN] - 05/08/22 10:30 am Juancho Culp MD [STAFF PHYSICIAN] - 05/08/22 3:15 pm ([facility] Dontae Galvez MD [Primary Care Provider] - 05/02/22 9:45 am Patient Instructions/Handouts: Heart Failure (DC) Activity/Diet/Wound Care/Special Instructions: Activity Limited until follow-up Follow-up with cardiology this week Follow-up with pulmonary in the next 1-2 weeks Follow-up with your primary care provider this week Continue taking medications as prescribed Continue working with home care and possible increased supervision after discussing with family Continue heart healthy diabetic diet Continue to monitor blood sugars before meals and at bedtime and keep a diary Continue with insulins if blood sugar is 120 or less recommend holding the ins ulin Recommend repeat labs in the next 2-3 days Discharge Disposition: HOME WITH HOME HEALTH SERVICES
--- NOTE | 2022-05-11 11:55 | CDI ---
Documentation Clarification Form Date: 05/02/2022 10:38:00 PM From: Faina Gay Phone: Admit Date: 04/19/2022 12:43:00 PM Patient Name: Neva Pool Visit Number: [id number] Discharge Date: 04/27/2022 03:33:00 PM ATTENTION: The Clinical Documentation Specialists (CDI) and [facility] Coding Staff appreciate your assistance in clarifying documentation. Please respond to the clarification below the line at the bottom and electronically sign. The CDI & [facility] Coding staff will review the response and follow-up if needed. Please note: Queries are made part of the Legal Health Record. If you have any questions, please contact the author of this message via ITS. Dr. Hector Solis Pulmonary embolism is documented per [facility] Note Progress Note 04/26/22 which may lack sufficient clinical evidence/support in the medical record. Additional clarification is requested. History/Risk Factors: 81yo F, COPD with exacerbation, CHF (congestive heart failure), Non-STEMI (non-ST elevated myocardial infarction), recent transcather aortic valve replacement, gait dysfcn, poor social support Clinical Indicators: PE was diagnosed the previous admission and was discharged 5 days prior to this admission. The patient had a VQ scan that showed septal mesh defects compatible with intermediate probability pulmonary embolism. At that point, the patient was given diagnosis of pulmonary embolism and this was based on a VQ scan that was of an intermediate probability and the patient was started on anticoagulation with Eliquis 10 mg by mouth twice a day initially and subsequently 5 mg by mouth twice a day. Treatment: Eliquis Please clarify if pulmonary embolism is a valid diagnosis and acuity? [ x ] Yes, Pulmonary embolism is present as evidence by (additional clinical support): [ x ] Acute [ ] Chronic [ ] Unspecified [ ] No, Pulmonary embolism is ruled out [ ] Other (please specify diagnosis) [ ] Unable to determine (Template Last Revised: October 2020) MTDD
== END 2022-04-27 15:33 | disposition home health service (06) | DRG 280 ==
LOC: EC 08:34 → 3SCARD 12:43
PROVIDERS: ADMIT Internal Medicine; ATTEND Internal Medicine
DX: I13.0 Hypertensive heart and chronic kidney disease with heart failure and stage 1 through stage 4 chronic kidney disease, or unspecified chronic kidney disease (principal); I21.A1 Myocardial infarction type 2; I26.99 Other pulmonary embolism without acute cor pulmonale; I50.33 Acute on chronic diastolic (congestive) heart failure; J44.1 Chronic obstructive pulmonary disease with (acute) exacerbation; N17.8 Other acute kidney failure; M48.54XA Collapsed vertebra, not elsewhere classified, thoracic region, initial encounter for fracture; I48.20 Chronic atrial fibrillation, unspecified; I27.20 Pulmonary hypertension, unspecified; E11.42 Type 2 diabetes mellitus with diabetic polyneuropathy; E11.22 Type 2 diabetes mellitus with diabetic chronic kidney disease; N18.30 Chronic kidney disease, stage 3 unspecified; I08.3 Combined rheumatic disorders of mitral, aortic and tricuspid valves; E03.9 Hypothyroidism, unspecified; F32.A Depression, unspecified; E11.65 Type 2 diabetes mellitus with hyperglycemia; D63.1 Anemia in chronic kidney disease; I95.9 Hypotension, unspecified; E78.5 Hyperlipidemia, unspecified; R26.9 Unspecified abnormalities of gait and mobility; I25.10 Atherosclerotic heart disease of native coronary artery without angina pectoris; G47.33 Obstructive sleep apnea (adult) (pediatric); R09.02 Hypoxemia; I16.0 Hypertensive urgency; I48.0 Paroxysmal atrial fibrillation; N14.1 Nephropathy induced by other drugs, medicaments and biological substances; T50.2X5A Adverse effect of carbonic-anhydrase inhibitors, benzothiadiazides and other diuretics, initial encounter; G89.29 Other chronic pain; M54.50 Low back pain, unspecified; D50.9 Iron deficiency anemia, unspecified; M79.669 Pain in unspecified lower leg; R53.1 Weakness; M19.90 Unspecified osteoarthritis, unspecified site; Z20.822 Contact with and (suspected) exposure to COVID-19; Z96.1 Presence of intraocular lens; Z87.01 Personal history of pneumonia (recurrent); Z79.890 Hormone replacement therapy; Z79.84 Long term (current) use of oral hypoglycemic drugs; Z79.01 Long term (current) use of anticoagulants; Z79.4 Long term (current) use of insulin; Z79.02 Long term (current) use of antithrombotics/antiplatelets; Z88.1 Allergy status to other antibiotic agents; Z88.2 Allergy status to sulfonamides; Z88.8 Allergy status to other drugs, medicaments and biological substances; Z88.5 Allergy status to narcotic agent; Z86.73 Personal history of transient ischemic attack (TIA), and cerebral infarction without residual deficits; Z90.710 Acquired absence of both cervix and uterus; Z98.84 Bariatric surgery status; Z90.49 Acquired absence of other specified parts of digestive tract; Z90.89 Acquired absence of other organs; Z85.828 Personal history of other malignant neoplasm of skin; Z95.3 Presence of xenogenic heart valve; Z63.8 Other specified problems related to primary support group; Z98.890 Other specified postprocedural states; Z86.711 Personal history of pulmonary embolism; Z86.19 Personal history of other infectious and parasitic diseases; Z91.14 Patient's other noncompliance with medication regimen; Z87.440 Personal history of urinary (tract) infections; Z91.81 History of falling; Z79.899 Other long term (current) drug therapy; Z98.41 Cataract extraction status, right eye; Z98.42 Cataract extraction status, left eye; Z82.49 Family history of ischemic heart disease and other diseases of the circulatory system; Z80.0 Family history of malignant neoplasm of digestive organs; Z82.0 Family history of epilepsy and other diseases of the nervous system; Z80.6 Family history of leukemia
CPT/HCPCS: 36415; 71045; 71046; 80048; 80053; 83605; 83735; 83880; 84484; 85025; 85379; 85610; 85730; 87040; 87502; 87635; 93005; 94640; 94760; 96361; 96374; 96376; 99291

== ENCOUNTER 2022-05-01 11:46 | Emergency (ER) | payer MEDICARE, OTHER ==
[2022-05-01 11:53] VITALS: TEMP 97.6
--- NOTE | 2022-05-01 12:36 | ED ---
General Adult HPI - General Chief complaint: Recheck/Abnormal Lab/Rx Stated complaint: Hypertension Time Seen by Provider: 05/01/22 12:00 Source: patient, EMS Mode of arrival: EMS Limitations: no limitations - History of Present Illness Initial comments: Dictation was produced using ClearFlow dictation software. please excuse any grammatical, word or spelling errors. Chief Complaint: 81-year-old female presents to the emergency department for hypertension. History of Present Illness: [id number] female with multiple comorbidities presents presents to the ER for hypertension. Patient was at home when she was visited by her home health care visiting nurse. She had her vitals checked and her blood pressure was significantly high. Home visiting nurse called attending physician who ultimately insisted that patient be brought to the emergency department. Patient states that she has been feeling wheezy for the last 48 hours. Denies any fever chills or night sweats. Denies any chest pain. Denies any headache or complaints. Patient does have a history of heart failure. States that recently she had perhaps about of food poisoning. She ate a burrito and experience bouts of diarrhea several hours after. The ROS documented in this emergency department record has been reviewed and confirmed by me. Those systems with pertinent positive or negative responses have been documented in the HPI. All other systems are other negative and/or noncontributory. PHYSICAL EXAM: General Impression: Alert and oriented x3, not in acute distress HEENT: Normocephalic atraumatic, extra-ocular movements intact, pupils equal and reactive to light bilaterally, mucous membranes moist. Cardiovascular: Heart regular rate and rhythm Chest: Able to complete full sentences, no retractions, no tachypnea, clear to auscultation bilaterally Abdomen: abdomen soft, non-tender, non-distended, no organomegaly Musculoskeletal: Pulses present and equal in all extremities, no peripheral edema Motor: no focal deficits noted Neurological: CN II-XII grossly intact, no focal motor or sensory deficits noted Skin: Intact with no visualized rashes Psych: Normal affect and mood ED course:-year-old female presents emergency department for hypertension. Patient is well-appearing at bedside. He is not dyspneic not showing signs of respiratory distress. Vital signs upon arrival are within acceptable limits. She is not significantly hypertensive. She does not have any signs or symptoms to suggest hypertensive emergency. Abdomen evaluation obtained. CBC appears to be within acceptable limits. Hemoglobin is 9.3 with an outpatient . Coag panel is unremarkable. Metabolic panel shows troponin 0.041. This appears to be lower than patient's recent baseline since 1000. Prematurity peptide is 5840. Patient's blood pressure monitored here in emergency department with stable findings at 150/70 patient is showing signs of respiratory distress. Disposition options were discussed with patient she is agreeable with discharge. She is reevaluated at bedside 2:20 PM found to be stable medical condition. Patient is showing signs of respiratory distress. She appears stable and does not have any complaints of pain. Patient will be given some Lasix discharged home advised follow-up with color coater or primary care doctor. She is told to stay away from highly process I sodium- containing foods because these are triggers to high blood pressure and heart failure exacerbation. Patient given strict return precautions. EKG interpretation: Ventricular rate 56, sinus bradycardia,. 150, QS 114, QTc 456. No NM prolongation, no QTC prolongation, no ST or T-wave changes noted. EKG compared to 04/19/2022 showing no changes. Overall, this EKG is unremarkable - Related Data Home Medications Medication Instructions Recorded Confirmed Atorvastatin [Lipitor] 80 mg PO HS 06/30/18 05/01/22 Sertraline [Zoloft] 25 mg PO DAILY 08/30/21 05/01/22 Artificial Tears-Hypromellose 1 drop BOTH EYES TID PRN 09/24/21 05/01/22 [Artificial Tear Drops] Isosorbide Mononitrate ER [Imdur] 60 mg PO DAILY 09/24/21 05/01/22 Levothyroxine Sodium [Synthroid] 125 mcg PO DAILY 12/01/21 05/01/22 Magnesium Oxide [Mag-Ox] 400 mg PO DAILY 12/01/21 05/01/22 Melatonin [Melatonin ER] 10 mg PO HS 12/01/21 05/01/22 polyethylene glycoL 3350 [Miralax] 17 gm PO DAILY PRN 12/01/21 05/01/22 Ferrous Sulfate [Feosol] 325 mg PO DAILY 03/02/22 05/01/22 Cholecalciferol [Vitamin D3 (25 25 mcg PO DAILY 04/04/22 05/01/22 Mcg = 1000 Iu)] Furosemide [Lasix] 40 mg PO BID@0900,1600 04/04/22 05/01/22 Omeprazole [PriLOSEC] 40 mg PO DAILY 04/04/22 05/01/22 Potassium Chloride [Klor-Con M20] 20 meq PO DAILY 04/04/22 05/01/22 Pioglitazone [Actos] 15 mg PO DAILY 04/05/22 05/01/22 Docusate [Colace] 100 mg PO DAILY 04/19/22 05/01/22 Insuln Asp Prt/Insulin Aspart 30 unit SQ AC-BRKFST 05/01/22 05/01/22 [NovoLOG MIX 70-30 VIAL] Previous Rx's Medication Instructions Recorded busPIRone HCl [Buspar] 10 mg PO Q8H #90 tab 12/02/21 Acetaminophen Tab [Tylenol] 650 mg PO Q4H PRN #60 tab 12/21/21 Insuln Asp Prt/Insulin Aspart 20 unit SQ AC-SUPPER 30 Days #5 12/21/21 [NovoLOG MIX 70-30 VIAL] each Clopidogrel [Plavix] 75 mg PO DAILY #30 tab 04/06/22 Albuterol Inhaler [Ventolin Hfa 2 puff INHALATION RT-Q6H PRN #1 04/14/22 Inhaler] each Apixaban [Eliquis] 5 mg PO BID@0700,1600 tab 04/27/22 carvediloL [Coreg*] 25 mg PO BID-W/MEALS 30 Days #120 04/27/22 tab hydrALAZINE HCL [Apresoline] 50 mg PO BID #60 tab 04/27/22 Allergies Allergy/AdvReac Type Severity Reaction Status Date / Time azithromycin Allergy Rash/Hives Verified 05/01/22 13:17 [From Zithromax Z-Jeanmarie] methylprednisolone Allergy Rash/Hives Verified 05/01/22 13:17 [From Medrol] sulfamethoxazole Allergy Rash/Hives Verified 05/01/22 13:17 [From Bactrim] trimethoprim [From Bactrim] Allergy Rash/Hives Verified 05/01/22 13:17 hydrochlorothiazide AdvReac Unknown Verified 05/01/22 13:17 hydrocodone AdvReac Hallucinati Verified 05/01/22 13:17 ons Review of Systems ROS Statement: Those systems with pertinent positive or pertinent negative responses have been documented in the HPI. ROS Other: All systems not noted in ROS Statement are negative. Past Medical History Past Medical History: Atrial Fibrillation, Cancer, Chest Pain / Angina, Heart Failure, COPD, CVA/TIA, Diabetes Mellitus, Hyperlipidemia, Hypertension, Osteoarthritis (OA), Pneumonia, Renal Disease, Sleep Apnea/CPAP/BIPAP, Syncope, Thyroid Disorder Additional Past Medical History / Comment(s): Severe aortic stenosis with a previous TAVR, nonocclusive coronary artery disease, diabetes mellitus type 2, paroxysmal atrial fibrillation, previous pulmonary embolism based on a intermediate probability VQ scan with a negative Dopplers, obstructive sleep apnea, chronic stage III kidney disease, hypertension, hyperlipidemia, previous history of CVA, previous history of compression fracture of T12 spine, chronic back pain, chronic anemia, hypothyroidism, vitamin D deficiency, skin cancer that has been resected, previous history of pneumonia with sepsis, previous history of right-sided pleural effusion requiring thoracentesis, previous history of CVA back in 2012 History of Any Multi-Drug Resistant Organisms: None Reported Past Surgical History: Adenoidectomy, Back Surgery, Bariatric Surgery, Cholecystectomy, Heart Catheterization, Hysterectomy, Tonsillectomy Additional Past Surgical History / Comment(s): 03/2022 TAVR, Cardiac caths , lap band placed/since removed, low back surgery, L carpal tunnel re lease X2, pain clinic procedures, skin cancer removal, colonoscopies, bilateral cataract removals/lens implants. Past Anesthesia/Blood Transfusion Reactions: Previous Problems w/ Anesthesia Additional Past Anesthesia/Blood Transfusion Reaction / Comment(s): "Had too much anesthesia in 2007 for lap band removal, had to be bagged." Past Psychological History: Depression Smoking Status: Never smoker Past Alcohol Use History: None Reported Past Drug Use History: None Reported - Past Family History Sister(s) Family Medical History: Myocardial Infarction (MS) Brother(s) Family Medical History: Cancer Additional Family Medical History / Comment(s): Colon Cancer. Mother Family Medical History: Dementia Additional Family Medical History / Comment(s): Mother of dementia at the age of 89yrs. Father Family Medical History: Cancer Additional Family Medical History / Comment(s): Pt states her father was treated for a sinus infection but really had leukemia and of this at the age of 72 yrs. General Exam Limitations: no limitations Course Vital Signs 05/01/22 11:47 Temperature 97.6 F Pulse Rate 62 Respiratory 18 Rate Blood Pressure 156/69 O2 Sat by Pulse 94 L Oximetry Medical Decision Making - Lab Data Result diagrams: 05/01/22 12:30 05/01/22 12:30 Lab Results 05/01/22 05/01/22 05/01/22 Range/Units 12:30 12:30 12:30 WBC 7.1 (3.8-10.6) k/uL RBC 3.50 L (3.80-5.40) m/uL Hgb 9.3 L (11.4-16.0) gm/dL Hct 31.2 L (34.0-46.0) % MCV 89.2 (80.0-100.0) fL MCH 26.7 (25.0-35.0) pg MCHC 30.0 L (31.0-37.0) g/dL RDW 14.8 (11.5-15.5) % Plt Count 206 (150-450) k/uL MPV 8.2 Neutrophils % 68 % Lymphocytes % 12 % Monocytes % 11 % Eosinophils % 6 % Basophils % 0 % Neutrophils # 4.9 (1.3-7.7) k/uL Lymphocytes # 0.8 L (1.0-4.8) k/uL Monocytes # 0.8 (0-1.0) k/uL Eosinophils # 0.4 (0-0.7) k/uL Basophils # 0.0 (0-0.2) k/uL Hypochromasia Marked PT 11.3 (9.0-12.0) sec INR 1.0 (<1.2) APTT 22.3 (22.0-30.0) sec Sodium 139 (137-145) mmol/L Potassium 4.0 (3.5-5.1) mmol/L Chloride 104 (98-107) mmol/L Carbon Dioxide 28 (22-30) mmol/L Anion Gap 7 mmol/L BUN 33 H (7-17) mg/dL Creatinine 1.31 H (0.52-1.04) mg/dL Est GFR (CKD-EPI)AfAm 44 (>60 ml/min/1.73 sqM) Est GFR (CKD-EPI)NonAf 39 (>60 ml/min/1.73 sqM) Glucose 223 H (74-99) mg/dL Calcium 8.7 (8.4-10.2) mg/dL Troponin I (0.000-0.034) ng/mL NT-Pro-B Natriuret Pep pg/mL 05/01/22 05/01/22 Range/Units 12:30 12:30 WBC (3.8-10.6) k/uL RBC (3.80-5.40) m/uL Hgb (11.4-16.0) gm/dL Hct (34.0-46.0) % MCV (80.0-100.0) fL MCH (25.0-35.0) pg MCHC (31.0-37.0) g/dL RDW (11.5-15.5) % Plt Count (150-450) k/uL MPV Neutrophils % % Lymphocytes % % Monocytes % % Eosinophils % % Basophils % % Neutrophils # (1.3-7.7) k/uL Lymphocytes # (1.0-4.8) k/uL Monocytes # (0-1.0) k/uL Eosinophils # (0-0.7) k/uL Basophils # (0-0.2) k/uL Hypochromasia PT (9.0-12.0) sec INR (<1.2) APTT (22.0-30.0) sec Sodium (137-145) mmol/L Potassium (3.5-5.1) mmol/L Chloride (98-107) mmol/L Carbon Dioxide (22-30) mmol/L Anion Gap mmol/L BUN (7-17) mg/dL Creatinine (0.52-1.04) mg/dL Est GFR (CKD-EPI)AfAm (>60 ml/min/1.73 sqM) Est GFR (CKD-EPI)NonAf (>60 ml/min/1.73 sqM) Glucose (74-99) mg/dL Calcium (8.4-10.2) mg/dL Troponin I 0.041 H* (0.000-0.034) ng/mL NT-Pro-B Natriuret Pep 5840 pg/mL Disposition Clinical Impression: Hypertension Disposition: HOME SELF-CARE Condition: Fair Is patient prescribed a controlled substance at d/c from ED?: No Referrals: Dontae Dawn MD [Primary Care Provider] - 1-2 days Time of Disposition: 14:19
--- NOTE | 2022-05-01 13:07 | XR ---
EXAMINATION TYPE: XR chest 2V DATE OF EXAM: 05/01/2022 COMPARISON: 04/26/2022 TECHNIQUE: PA and lateral views submitted. HISTORY: Shortness of breath FINDINGS: Heart enlarged and there is postoperative change. Atherosclerotic change aorta. A trap at the shoulde rs with bilateral infiltrate and pleural effusion. No sizable pneumothorax. Cardiomegaly. Coarsened i nterstitium. Hypertrophic and degenerative changes of the spine. Stable sclerotic density overlying t he left axilla. IMPRESSION: 1. Stable bilateral infiltrate and pleural effusion correlate for pneumonia otherwise consider mild C HF.
[2022-05-01 13:32] LABS: Basophils % (A) 0 %; Eosinophils # (A) 0.4 k/uL (0-0.7); Eosinophils % (A) 6 %; HCT 31.2 % (34.0-46.0); HGB 9.3 gm/dL (11.4-16.0); Hypochromasia Marked; Lymphocytes # (A) 0.8 k/uL (1.0-4.8); Lymphocytes % (A) 12 %; MCH 26.7 pg (25.0-35.0); MCV 89.2 fL (80.0-100.0); Mean Platelet Volume 8.2; Monocytes # (A) 0.8 k/uL (0-1.0); Monocytes % (A) 11 %; Neutrophils # (A) 4.9 k/uL (1.3-7.7); Neutrophils % (A) 68 %; Platelet Count 206 k/uL (150-450); RDW 14.8 % (11.5-15.5); WBC 7.1 k/uL (3.8-10.6)
[2022-05-01 13:36] LABS: Calcium 8.7 mg/dL (8.4-10.2)
[2022-05-01 13:46] LABS: Partial Thromboplastin Time 22.3 sec (22.0-30.0); Prothrombin Time 11.3 sec (9.0-12.0)
[2022-05-01] MEDS ORDERED: FUROSEMIDE 10 MG/ML 4 ML VIAL IV STA (14:17)
[2022-05-01 14:36] VITALS: PULSE 57; RESP 20
[2022-05-01 14:37] VITALS: BP 163/73
== END 2022-05-01 16:51 | disposition home or self-care (01) ==
LOC: EC 11:46
DX: I11.0 Hypertensive heart disease with heart failure (principal); R00.1 Bradycardia, unspecified; I50.9 Heart failure, unspecified; J44.9 Chronic obstructive pulmonary disease, unspecified; E11.9 Type 2 diabetes mellitus without complications; E78.5 Hyperlipidemia, unspecified; M19.90 Unspecified osteoarthritis, unspecified site; E07.9 Disorder of thyroid, unspecified; Z86.79 Personal history of other diseases of the circulatory system; Z86.73 Personal history of transient ischemic attack (TIA), and cerebral infarction without residual deficits; Z79.890 Hormone replacement therapy; Z79.4 Long term (current) use of insulin; Z88.1 Allergy status to other antibiotic agents; Z88.8 Allergy status to other drugs, medicaments and biological substances; Z88.2 Allergy status to sulfonamides; Z88.5 Allergy status to narcotic agent
CPT/HCPCS: 36415; 93005; 83880; 80048; 84484; 85025; 85610; 85730; 71046; 99284; 96374; J1940

== ENCOUNTER → 2022-05-29 | Outpatient (CLI) | payer MEDICARE, OTHER ==
[2022-05-29 17:53] LABS: African American GFR (CKD) 34.9 (60.0-200.0); Anion Gap 7.2 mmol/L (10.00-18.00); BUN/Creat Ratio 16.56 Ratio (12.00-20.00); Blood Urea Nitrogen 26.5 mg/dL (9.0-27.0); Calcium 8.9 mg/dL (8.7-10.3); Carbon Dioxide 33.8 mmol/L (20.0-27.5); Non-African American GFR(CKD) 30.1 (60.0-200.0); Potassium 3.9 mmol/L (3.5-5.5)
[2022-05-29 17:58] LABS: Basophils # (A) 0.03 X 10*3/uL (0.00-0.10); Basophils % (A) 0.3 %; Eosinophils # (A) 0.37 X 10*3/uL (0.04-0.35); Eosinophils % (A) 4.2 %; HCT 32.5 % (37.2-46.3); HGB 9.9 g/dL (12.0-15.0); Immature Grans, Automated 0.8 %; Lymphocytes # (A) 0.87 X 10*3/uL (0.90-5.00); Lymphocytes % (A) 9.9 %; MCH 26.9 pg (27.0-32.0); MCHC 30.5 g/dL (32.0-37.0); MCV 88.3 fL (80.0-97.0); Mean Platelet Volume 12.3 fL (9.5-12.2); Monocytes # (A) 1.36 X 10*3/uL (0.20-1.00); Monocytes % (A) 15.5 %; NRBC Per 100 WBC 0 /100 WBCS (0.0-0.0); Neutrophils % (A) 69.3 %; Platelet Count 225 X 10*3/uL (140-440); RBC 3.68 X 10*6/uL (4.10-5.20); RDW 14.2 % (11.5-14.5)
== END | disposition home or self-care (01) ==
LOC: LABWHC1 14:38
PROVIDERS: ATTEND Thoracic Surgery (Cardiothoracic Vascular Surgery)
DX: I35.1 Nonrheumatic aortic (valve) insufficiency (principal)
CPT/HCPCS: 36415; 80048; 85025

== ENCOUNTER 2022-06-15 15:51 | Inpatient (IN) | payer MEDICARE, OTHER ==
[2022-06-15] MEDS ORDERED: IPRATROPIUM 0.5 MG/2.5 ML NEBU INHALATION STA (15:58)
[2022-06-15] MEDS ORDERED: NITROGLYCERIN-D5W PMX 50 MG in DEXTROSE/WATER 1 250ML.BAG IV STA (15:58)
[2022-06-15] MEDS ORDERED: ALBUTEROL NEBULIZED 2.5 MG/3 ML INHALATION STA (15:58)
[2022-06-15] MEDS ORDERED: methylPREDNISolone SOD SUCCI 125 MG/2 ML VIAL IV STA (15:58)
[2022-06-15] MEDS ORDERED: LORazepam 2 MG/ML INJ IV STA (16:02)
[2022-06-15 16:10] LABS: Basophils # (A) 0.1 k/uL (0-0.2); Basophils % (A) 1 %; Eosinophils # (A) 0.6 k/uL (0-0.7); Eosinophils % (A) 5 %; HCT 37.7 % (34.0-46.0); HGB 11.6 gm/dL (11.4-16.0); Hypochromasia Marked; Lymphocytes # (A) 1.4 k/uL (1.0-4.8); Lymphocytes % (A) 12 %; MCH 27.6 pg (25.0-35.0); MCHC 30.7 g/dL (31.0-37.0); MCV 89.9 fL (80.0-100.0); Mean Platelet Volume 8.8; Monocytes # (A) 1.1 k/uL (0-1.0); Monocytes % (A) 9 %; Neutrophils # (A) 8.2 k/uL (1.3-7.7); Neutrophils % (A) 72 %; Platelet Count 307 k/uL (150-450); RDW 14.3 % (11.5-15.5); WBC 11.5 k/uL (3.8-10.6)
[2022-06-15 16:20] LABS: Albumin 4.5 g/dL (3.5-5.0); Calcium 8.8 mg/dL (8.4-10.2); Total Bilirubin 1.3 mg/dL (0.2-1.3); Total Protein 7.6 g/dL (6.3-8.2)
[2022-06-15 16:22] LABS: Potassium 5.1 mmol/L (3.5-5.1)
[2022-06-15 16:28] LABS: Partial Thromboplastin Time 23.4 sec (22.0-30.0); Prothrombin Time 10.7 sec (9.0-12.0)
--- NOTE | 2022-06-15 16:40 | XR ---
EXAMINATION TYPE: XR chest 1V portable DATE OF EXAM: 06/15/2022 COMPARISON: Chest x-ray May 01, 2022 HISTORY: Difficulty in breathing. TECHNIQUE: Single frontal view of the chest is obtained. FINDINGS: There is cardiomegaly with moderate central vascular congestion and small to moderate-size d bilateral pleural effusions on current study redemonstrated and slightly more prominent from prior. Chondroid lesion proximal right humerus is redemonstrated. IMPRESSION: Findings consistent with CHF exacerbation again seen as detailed above.
[2022-06-15] MEDS ORDERED: FUROSEMIDE 10 MG/ML 4 ML VIAL IV STA (16:57)
[2022-06-15] MEDS ORDERED: NALOXONE 0.4 MG/ML 1 ML VIAL IV PRN (17:04)
--- NOTE | 2022-06-15 17:16 | ED ---
General Adult HPI - General Chief complaint: Shortness of Breath Stated complaint: SOB Time Seen by Provider: 06/15/22 15:52 Source: patient, family, EMS, RN notes reviewed, old records reviewed Mode of arrival: EMS - History of Present Illness Initial comments: 81-year-old female presents in extremis. Patient felt to be hypoxic in the 70s by paramedics. She was placed on a nonrebreather but did not report improvement. She was placed on CPAP for transport. She is able to answer some simple questions. No fever. No chest pain. According to family she had been doing quite well this morning but had missed taking her blood pressure medication. Initial blood pressure upon arrival is 210/110. She is in severe respiratory distress. - Related Data Home Medications Medication Instructions Recorded Confirmed Atorvastatin [Lipitor] 80 mg PO HS 06/30/18 06/15/22 Sertraline [Zoloft] 25 mg PO DAILY 08/30/21 06/15/22 Artificial Tears-Hypromellose 1 drop BOTH EYES TID PRN 09/24/21 06/15/22 [Artificial Tear Drops] Isosorbide Mononitrate ER [Imdur] 60 mg PO DAILY 09/24/21 06/15/22 Levothyroxine Sodium [Synthroid] 125 mcg PO DAILY 12/01/21 06/15/22 Magnesium Oxide [Mag-Ox] 400 mg PO DAILY 12/01/21 06/15/22 Melatonin [Melatonin ER] 10 mg PO HS 12/01/21 06/15/22 polyethylene glycoL 3350 [Miralax] 17 gm PO DAILY PRN 12/01/21 06/15/22 Ferrous Sulfate [Feosol] 325 mg PO DAILY 03/02/22 06/15/22 Cholecalciferol [Vitamin D3 (25 25 mcg PO DAILY 04/04/22 06/15/22 Mcg = 1000 Iu)] Furosemide [Lasix] 40 mg PO BID@0900,1600 04/04/22 06/15/22 Omeprazole [PriLOSEC] 40 mg PO DAILY 04/04/22 06/15/22 Potassium Chloride [Klor-Con M20] 20 meq PO DAILY 04/04/22 06/15/22 Pioglitazone [Actos] 15 mg PO DAILY 04/05/22 06/15/22 Docusate [Colace] 100 mg PO DAILY 04/19/22 06/15/22 Insuln Asp Prt/Insulin Aspart 30 unit SQ AC-BRKFST 05/01/22 06/15/22 [NovoLOG MIX 70-30 VIAL] Budesonide/Formoterol Fumarate 2 puff INHALATION RT-BID 06/15/22 06/15/22 [Symbicort 160-4.5 Mcg Inhaler] Nystatin/Triamcin 1 applic TOPICAL TID 06/15/22 06/15/22 [Nystatin-Triamcinolone Cream] busPIRone HCl [Buspar] 10 mg PO BID 06/15/22 06/15/22 Previous Rx's Medication Instructions Recorded Acetaminophen Tab [Tylenol] 650 mg PO Q4H PRN #60 tab 12/21/21 Insuln Asp Prt/Insulin Aspart 20 unit SQ AC-SUPPER 30 Days #5 12/21/21 [NovoLOG MIX 70-30 VIAL] each Albuterol Inhaler [Ventolin Hfa 2 puff INHALATION RT-Q6H PRN #1 04/14/22 Inhaler] each Apixaban [Eliquis] 5 mg PO BID@0700,1600 tab 04/27/22 carvediloL [Coreg*] 25 mg PO BID-W/MEALS 30 Days #120 04/27/22 tab hydrALAZINE HCL [Apresoline] 50 mg PO BID #60 tab 04/27/22 Clopidogrel [Plavix] 75 mg PO DAILY #30 tablet 05/29/22 Allergies Allergy/AdvReac Type Severity Reaction Status Date / Time azithromycin Allergy Rash/Hives Verified 06/15/22 17:36 [From Zithromax Z-Jeanmarie] methylprednisolone Allergy Rash/Hives Verified 06/15/22 17:36 [From Medrol] sulfamethoxazole Allergy Rash/Hives Verified 06/15/22 17:36 [From Bactrim] trimethoprim [From Bactrim] Allergy Rash/Hives Verified 06/15/22 17:36 hydrochlorothiazide AdvReac Unknown Verified 06/15/22 17:36 hydrocodone AdvReac Hallucinati Verified 06/15/22 17:36 ons Review of Systems ROS Statement: Those systems with pertinent positive or pertinent negative responses have been documented in the HPI. ROS Other: All systems not noted in ROS Statement are negative. Past Medical History Past Medical History: Atrial Fibrillation, Cancer, Chest Pain / Angina, Heart Failure, COPD, CVA/TIA, Diabetes Mellitus, Hyperlipidemia, Hypertension, Osteoarthritis (OA), Pneumonia, Renal Disease, Sleep Apnea/CPAP/BIPAP, Syncope, Thyroid Disorder Additional Past Medical History / Comment(s): Severe aortic stenosis with a previous TAVR, nonocclusive coronary artery disease, diabetes mellitus type 2, paroxysmal atrial fibrillation, previous pulmonary embolism based on a intermediate probability VQ scan with a negative Dopplers, obstructive sleep apnea, chronic stage III kidney disease, hypertension, hyperlipidemia, previous history of CVA, previous history of compression fracture of T12 spine, chronic back pain, chronic anemia, hypothyroidism, vitamin D deficiency, skin cancer that has been resected, previous history of pneumonia with sepsis, previous h istory of right-sided pleural effusion requiring thoracentesis, previous history of CVA back in 2012 History of Any Multi-Drug Resistant Organisms: None Reported Past Surgical History: Adenoidectomy, Back Surgery, Bariatric Surgery, Cholecystectomy, Heart Catheterization, Hysterectomy, Tonsillectomy Additional Past Surgical History / Comment(s): 03/2022 TAVR, Cardiac caths , lap band placed/since removed, low back surgery, L carpal tunnel release X2, pain clinic procedures, skin cancer removal, colonoscopies, bi lateral cataract removals/lens implants. Past Anesthesia/Blood Transfusion Reactions: Previous Problems w/ Anesthesia Additional Past Anesthesia/Blood Transfusion Reaction / Comment(s): "Had too much anesthesia in 2007 for lap band removal, had to be bagged." Past Psychological History: Depression Smoking Status: Never smoker Past Alcohol Use History: None Reported Past Drug Use History: None Reported - Past Family History Sister(s) Family Medical History: Myocardial Infarction ([place]) Brother(s) Family Medical History: Cancer Additional Family Medical History / Comment(s): Colon Cancer. Mother Family Medical History: Dementia Additional Family Medical History / Comment(s): Mother of dementia at the age of 89yrs. Father Family Medical History: Cancer Additional Family Medical History / Comment(s): Pt states her father was treated for a sinus infection but really had leukemia and of this at the age of 72 yrs. General Exam General appearance: in distress Head exam: Present: atraumatic, normocephalic Eye exam: Present: normal appearance, PERRL ENT exam: Present: mucous membranes dry Respiratory exam: Present: respiratory distress, rales, accessory muscle use, decreased breath sounds Cardiovascular Exam: Present: regular rate, normal rhythm, systolic murmur GI/Abdominal exam: Present: soft. Absent: distended, tenderness, guarding Extremities exam: Present: normal inspection. Absent: normal capillary refill, pedal edema Neurological exam: Present: alert. Absent: motor sensory deficit Psychiatric exam: Present: anxious Skin exam: Present: warm, dry, intact. Absent: cyanosis, diaphoretic Course Vital Signs 06/15/22 06/15/22 06/15/22 15:53 16:03 16:15 Temperature 98.0 F Pulse Rate 90 70 Respiratory 26 H Rate Blood Pressure 209/106 O2 Sat by Pulse 98 Oximetry Fraction of 50 Inspired Oxygen (FIO2) 06/15/22 16:35 Temperature Pulse Rate 52 L Respiratory Rate Blood Pressure O2 Sat by Pulse Oximetry Fraction of Inspired Oxygen (FIO2) - Reevaluation(s) Reevaluation #1: 06/15/22 17:15 Patient and family had discussed that the patient would not want to be intubated or resuscitated. EKG Findings - EKG Comments: EKG Findings:: EKG: Says bradycardia, low voltage, rate of 55, ID interval 146, QRS duration 116, QTC 477, no ST segment elevation. Medical Decision Making - Medical Decision Making 81-year-old female presenting in extremis with hypotension, concern for flash pulmonary edema. Patient immediately placed on BiPAP, started on nitroglycerin drip. Chest x-ray does confirm pulmonary edema with bilateral pleural effusions. Laboratory testing reveals a mild troponin elevation. will trend. Given dose of Lasix in the emergency department. She is maintained on BiPAP for respiratory support. She'll be admitted to internal medicine with both cardiology and pulmonology on consult. - Lab Data Result diagrams: 06/15/22 16:02 06/15/22 16:02 Lab Results 06/15/22 06/15/22 06/15/22 Range/Units 16:02 16:02 16:02 WBC 11.5 H (3.8-10.6) k/uL RBC 4.20 (3.80-5.40) m/uL Hgb 11.6 (11.4-16.0) gm/dL Hct 37.7 (34.0-46.0) % MCV 89.9 (80.0-100.0) fL MCH 27.6 (25.0-35.0) pg MCHC 30.7 L (31.0-37.0) g/dL RDW 14.3 (11.5-15.5) % Plt Count 307 (150-450) k/uL MPV 8.8 Neutrophils % 72 % Lymphocytes % 12 % Monocytes % 9 % Eosinophils % 5 % Basophils % 1 % Neutrophils # 8.2 H (1.3-7.7) k/uL Lymphocytes # 1.4 (1.0-4.8) k/uL Monocytes # 1.1 H (0-1.0) k/uL Eosinophils # 0.6 (0-0.7) k/uL Basophils # 0.1 (0-0.2) k/uL Hypochromasia Marked PT 10.7 (9.0-12.0) sec INR 1.0 (<1.2) APTT 23.4 (22.0-30.0) sec Sodium 139 (137-145) mmol/L Potassium 5.1 (3.5-5.1) mmol/L Chloride 100 (98-107) mmol/L Carbon Dioxide 27 (22-30) mmol/L Anion Gap 12 mmol/L BUN 26 H (7-17) mg/dL Creatinine 1.20 H (0.52-1.04) mg/dL Est GFR (CKD-EPI)AfAm 49 (>60 ml/min/1.73 sqM) Est GFR (CKD-EPI)NonAf 43 (>60 ml/min/1.73 sqM) Glucose 374 H (74-99) mg/dL Plasma Lactic Acid Terry (0.7-2.0) mmol/L Calcium 8.8 (8.4-10.2) mg/dL Magnesium 2.0 (1.6-2.3) mg/dL Total Bilirubin 1.3 (0.2-1.3) mg/dL AST 50 H (14-36) U/L ALT 22 (4-34) U/L Alkaline Phosphatase 94 (38-126) U/L Troponin I (0.000-0.034) ng/mL Total Protein 7.6 (6.3-8.2) g/dL Albumin 4.5 (3.5-5.0) g/dL 06/15/22 06/15/22 Range/Units 16:02 16:02 WBC (3.8-10.6) k/uL RBC (3.80-5.40) m/uL Hgb (11.4-16.0) gm/dL Hct (34.0-46.0) % MCV (80.0-100.0) fL MCH (25.0-35.0) pg MCHC (31.0-37.0) g/dL RDW (11.5-15.5) % Plt Count (150-450) k/uL MPV Neutrophils % % Lymphocytes % % Monocytes % % Eosinophils % % Basophils % % Neutrophils # (1.3-7.7) k/uL Lymphocytes # (1.0-4.8) k/uL Monocytes # (0-1.0) k/uL Eosinophils # (0-0.7) k/uL Basophils # (0-0.2) k/uL Hypochromasia PT (9.0-12.0) sec INR (<1.2) APTT (22.0-30.0) sec Sodium (137-145) mmol/L Potassium (3.5-5.1) mmol/L Chloride (98-107) mmol/L Carbon Dioxide (22-30) mmol/L Anion Gap mmol/L BUN (7-17) mg/dL Creatinine (0.52-1.04) mg/dL Est GFR (CKD-EPI)AfAm (>60 ml/min/1.73 sqM) Est GFR (CKD-EPI)NonAf (>60 ml/min/1.73 sqM) Glucose (74-99) mg/dL Plasma Lactic Acid Terry 1.5 (0.7-2.0) mmol/L Calcium (8.4-10.2) mg/dL Magnesium (1.6-2.3) mg/dL Total Bilirubin (0.2-1.3) mg/dL AST (14-36) U/L ALT (4-34) U/L Alkaline Phosphatase (38-126) U/L Troponin I 0.081 H* (0.000-0.034) ng/mL Total Protein (6.3-8.2) g/dL Albumin (3.5-5.0) g/dL Critical Care Time Critical Care Time: Yes Total Critical Care Time: 35 Disposition Clinical Impression: Hypertensive CHF, Pulmonary edema Disposition: ADMITTED IP TO THIS HOSP Condition: Serious Is patient prescribed a controlled substance at d/c from ED?: No Time of Disposition: 17:16
[2022-06-15] MEDS: ATORVASTATIN 80 MG TAB PO SCH (21:00)
[2022-06-15] MEDS: hydrALAZINE HCL 50 MG TAB PO SCH (21:00)
[2022-06-15 23:30] LABS: Glucose,Whole Blood 204 mg/dL (70-110)
[2022-06-16] MEDS: LEVOTHYROXINE 125 MCG TAB PO SCH (06:02)
[2022-06-16] MEDS: APIXABAN 5 MG TAB PO SCH ×2 (06:02→14:54)
[2022-06-16] MEDS: carvediloL 12.5 MG TAB PO SCH ×2 (06:02→16:48)
[2022-06-16 06:12] LABS: Glucose,Whole Blood 204 mg/dL (70-110)
[2022-06-16] MEDS: INSULIN ASPART (NovoLOG) 100 UNIT/ML VIAL SQ SCH ×4 (06:39→20:18)
--- NOTE | 2022-06-16 07:04 | P.CRDCN ---
History of Present Illness Consult date: 06/16/22 Chief complaint: Shortness of breath History of present illness: The patient is a pleasant 81-year-old female patient with a past medical history significant for valvular heart disease with known severe aortic stenosis status post transcutaneous aortic valve replacement was performed in 2021, heart failure with preserved ejection fraction, mild nonobstructive coronary artery disease based on recent heart catheterization, hypertension, dyslipidemia, paroxysmal atrial fibrillation, as well as history of pulmonary involving us in. We requested to see the patient as a consult here for further evaluation off heart failure. Patient has multiple hospital admissions with congestive heart failure. She was in her usual state of health until about 3 days ago when she started experiencing progressive exertional dyspnea with no associated lower extremities edema and no associated chest pain or chest discomfort and no dizziness or lightheadedness and no feeling of heart racing or fluttering or presyncope or syncope. No symptoms of fever or chills and no cough or sputum production. Her daughter brought her to the emergency department for further investigation. She underwent a chest x-ray which showed finding consistent with heart failure. She underwent an EKG which showed sinus rhythm. Her troponin is a slightly elevated but she is normal at 24. She also underwent and the proBNP which came in to be 4000. Beside that when she presented to the emergency department she was found to be hypertensive and initially she was started on nitro drip. The patient stated that she has been compliant with her medications except the hydralazine. She has not taken it. She also stated that she has been eating food through an agency and clearly the foot is not helping and has high sodium. The most recent echo from 2021 revealed normal left ventricular systolic function with normally functioning transcatheter valve. The patient was seen and examined this morning clearly she is in heart failure with crackles bilaterally and mild bilateral lower extremities edema noted also examination. Currently also she is hypoxic requiring 2 L of oxygen to maintain saturation above 90 Past Medical History Past Medical History: Atrial Fibrillation, Cancer, Chest Pain / Angina, Heart Failure, COPD, CVA/TIA, Diabetes Mellitus, Hyperlipidemia, Hypertension, Osteoarthritis (OA), Pneumonia, Renal Disease, Sleep Apnea/CPAP/BIPAP, Syncope, Thyroid Disorder Additional Past Medical History / Comment(s): Severe aortic stenosis with a previous TAVR, nonocclusive coronary artery disease, diabetes mellitus type 2, paroxysmal atrial fibrillation, previous pulmonary embolism based on a intermediate probability VQ scan with a negative Dopplers, obstructive sleep apnea, chronic stage III kidney disease, hypertension, hyperlipidemia, previous history of CVA, previous history of compression fracture of T12 spine, chronic back pain, chronic anemia, hypothyroidism, vitamin D deficiency, skin cancer that has been resected, previous history of pneumonia with sepsis, previous history of right-sided pleural effusion requiring thoracentesis, previous history of CVA back in 2012 History of Any Multi-Drug Resistant Organisms: None Reported Past Surgical History: Adenoidectomy, Back Surgery, Bariatric Surgery, Cholecystectomy, Heart Catheterization, Hysterectomy, Tonsillectomy Additional Past Surgical History / Comment(s): 03/2022 TAVR, Cardiac caths , lap band placed/since removed, low back surgery, L carpal tunnel release X2, pain clinic procedures, skin cancer removal, colonoscopies, bilatera l cataract removals/lens implants. Past Anesthesia/Blood Transfusion Reactions: Previous Problems w/ Anesthesia Additional Past Anesthesia/Blood Transfusion Reaction / Comment(s): "Had too much anesthesia in 2007 for lap band removal, had to be bagged." Smoking Status: Never smoker - Past Family History Sister(s) Family Medical History: Myocardial Infarction ([place]) Brother(s) Family Medical History: Cancer Additional Family Medical History / Comment(s): Colon Cancer. Mother Family Medical History: Dementia Additional Family Medical History / Comment(s): Mother of dementia at the age of 89yrs. Father Family Medical History: Cancer Additional Family Medical History / Comment(s): Pt states her father was treated for a sinus infection but really had leukemia and of this at the age of 72 yrs. Medications and Allergies Home Medications Medication Instructions Recorded Confirmed Type Atorvastatin [Lipitor] 80 mg PO HS 06/30/18 06/15/22 History Sertraline [Zoloft] 25 mg PO DAILY 08/30/21 06/15/22 History Artificial Tears-Hypromellose 1 drop BOTH EYES TID PRN 09/24/21 06/15/22 History [Artificial Tear Drops] Isosorbide Mononitrate ER [Imdur] 60 mg PO DAILY 09/24/21 06/15/22 History Levothyroxine Sodium [Synthroid] 125 mcg PO DAILY 12/01/21 06/15/22 History Magnesium Oxide [Mag-Ox] 400 mg PO DAILY 12/01/21 06/15/22 History Melatonin [Melatonin ER] 10 mg PO HS 12/01/21 06/15/22 History polyethylene glycoL 3350 [Miralax] 17 gm PO DAILY PRN 12/01/21 06/15/22 History Acetaminophen Tab [Tylenol] 650 mg PO Q4H PRN #60 tab 12/21/21 06/15/22 Rx Insuln Asp Prt/Insulin Aspart 20 unit SQ AC-SUPPER 30 Days #5 12/21/21 06/15/22 Rx [NovoLOG MIX 70-30 VIAL] each Ferrous Sulfate [Feosol] 325 mg PO DAILY 03/02/22 06/15/22 History Cholecalciferol [Vitamin D3 (25 25 mcg PO DAILY 04/04/22 06/15/22 History Mcg = 1000 Iu)] Furosemide [Lasix] 40 mg PO BID@0900,1600 04/04/22 06/15/22 History Omeprazole [PriLOSEC] 40 mg PO DAILY 04/04/22 06/15/22 History Potassium Chloride [Klor-Con M20] 20 meq PO DAILY 04/04/22 06/15/22 History Pioglitazone [Actos] 15 mg PO DAILY 04/05/22 06/15/22 History Albuterol Inhaler [Ventolin Hfa 2 puff INHALATION RT-Q6H PRN #1 04/14/22 06/15/22 Rx Inhaler] each Docusate [Colace] 100 mg PO DAILY 04/19/22 06/15/22 History Apixaban [Eliquis] 5 mg PO BID@0700,1600 tab 04/27/22 06/15/22 Rx carvediloL [Coreg*] 25 mg PO BID-W/MEALS 30 Days #120 04/27/22 06/15/22 Rx tab hydrALAZINE HCL [Apresoline] 50 mg PO BID #60 tab 04/27/22 06/15/22 Rx Insuln Asp Prt/Insulin Aspart 30 unit SQ AC-BRKFST 05/01/22 06/15/22 History [NovoLOG MIX 70-30 VIAL] Clopidogrel [Plavix] 75 mg PO DAILY #30 tablet 05/29/22 06/15/22 Rx Budesonide/Formoterol Fumarate 2 puff INHALATION RT-BID 06/15/22 06/15/22 History [Symbicort 160-4.5 Mcg Inhaler] Nystatin/Triamcin 1 applic TOPICAL TID 06/15/22 06/15/22 History [Nystatin-Triamcinolone Cream] busPIRone HCl [Buspar] 10 mg PO BID 06/15/22 06/15/22 History Allergies Allergy/AdvReac Type Severity Reaction Status Date / Time azithromycin Allergy Rash/Hives Verified 06/15/22 17:36 [From Zithromax Z-Jeanmarie] methylprednisolone Allergy Rash/Hives Verified 06/15/22 17:36 [From Medrol] sulfamethoxazole Allergy Rash/Hives Verified 06/15/22 17:36 [From Bactrim] trimethoprim [From Bactrim] Allergy Rash/Hives Verified 06/15/22 17:36 hydrochlorothiazide AdvReac Unknown Verified 06/15/22 17:36 hydrocodone AdvReac Hallucinati Verified 06/15/22 17:36 ons Physical Exam Vitals: Vital Signs Temp Pulse Pulse Resp BP BP Pulse Ox 06/16/22 04:00 71 19 195/77 93 L 06/15/22 23:16 66 19 160/72 94 L 06/15/22 22:20 57 L 16 94 L 06/15/22 21:01 56 L 161/73 93 L 06/15/22 19:44 55 L 161/77 91 L 06/15/22 19:25 54 L 21 172/79 92 L 06/15/22 19:05 56 L 22 158/71 93 L 06/15/22 18:45 55 L 22 158/65 94 L 06/15/22 18:40 50 L 22 145/69 94 L 06/15/22 18:15 55 L 24 145/69 92 L 06/15/22 18:00 58 L 22 133/60 92 L 06/15/22 17:55 56 L 20 149/66 91 L 06/15/22 17:50 67 24 132/64 92 L 06/15/22 17:45 54 L 24 133/66 92 L 06/15/22 17:40 52 L 24 127/59 92 L 06/15/22 17:35 51 L 24 121/63 96 06/15/22 17:30 50 L 24 113/66 95 10/27/22 17:25 50 L 22 117/63 95 06/15/22 17:20 49 L 21 110/63 95 06/15/22 17:15 49 L 22 115/60 95 06/15/22 17:10 52 L 22 113/57 95 06/15/22 17:05 51 L 22 104/57 95 06/15/22 17:00 50 L 23 128/61 95 06/15/22 16:55 49 L 24 114/58 97 06/15/22 16:50 48 L 23 121/64 97 06/15/22 16:45 56 L 26 H 120/64 97 06/15/22 16:40 56 L 24 128/66 96 06/15/22 16:35 57 L 25 H 127/69 97 06/15/22 16:15 70 06/15/22 16:03 06/15/22 16:02 40 H 06/15/22 15:53 98.0 F 90 26 H 209/106 98 FiO2 06/16/22 04:00 06/15/22 23:16 06/15/22 22:20 06/15/22 21:01 06/15/22 19:44 06/15/22 19:25 06/15/22 19:05 06/15/22 18:45 06/15/22 18:40 06/15/22 18:15 06/15/22 18:00 06/15/22 17:55 06/15/22 17:50 06/15/22 17:45 06/15/22 17:40 06/15/22 17:35 06/15/22 17:30 06/15/22 17:25 06/15/22 17:20 06/15/22 17:15 06/15/22 17:10 06/15/22 17:05 06/15/22 17:00 06/15/22 16:55 06/15/22 16:50 06/15/22 16:45 06/15/22 16:40 06/15/22 16:35 06/15/22 16:15 06/15/22 16:03 50 06/15/22 16:02 06/15/22 15:53 Intake and Output 06/15/22 06/15/22 06/16/22 14:59 22:59 06:59 Intake Total 2.763 Balance 2.763 Intake: Intake, IV Titration 2.763 Amount Nitroglycerin-D5w Pmx 50 2.763 mg In Dextrose/Water 1 250ml.bag @ 5 MCG/MIN 1.5 mls/hr IV .Q24H STA Rx#: [id number] Other: Voiding Method Bedside Commode # Voids 1 Weight 81.647 kg 81.647 kg - Constitutional General appearance: no acute distress - Respiratory Respiratory: bilateral: rales - Cardiovascular Rhythm: regular Heart sounds: normal: S1, S2 Abnormal Heart Sounds: systolic murmur Results 06/15/22 16:02 06/15/22 16:02 Cardiac Enzymes 06/15/22 06/15/22 06/15/22 Range/Units 16:02 16:02 19:24 AST 50 H (14-36) U/L Troponin I 0.081 H* 0.105 H* (0.000-0.034) ng/mL 06/15/22 Range/Units 22:25 AST (14-36) U/L Troponin I 0.093 H* (0.000-0.034) ng/mL Coagulation 06/15/22 Range/Units 16:02 PT 10.7 (9.0-12.0) sec APTT 23.4 (22.0-30.0) sec CBC 06/15/22 Range/Units 16:02 WBC 11.5 H (3.8-10.6) k/uL RBC 4.20 (3.80-5.40) m/uL Hgb 11.6 (11.4-16.0) gm/dL Hct 37.7 (34.0-46.0) % Plt Count 307 (150-450) k/uL Comprehensive Metabolic Panel 06/15/22 Range/Units 16:02 Sodium 139 (137-145) mmol/L Potassium 5.1 (3.5-5.1) mmol/L Chloride 100 (98-107) mmol/L Carbon Dioxide 27 (22-30) mmol/L BUN 26 H (7-17) mg/dL Creatinine 1.20 H (0.52-1.04) mg/dL Glucose 374 H (74-99) mg/dL Calcium 8.8 (8.4-10.2) mg/dL AST 50 H (14-36) U/L ALT 22 (4-34) U/L Alkaline Phosphatase 94 (38-126) U/L Total Protein 7.6 (6.3-8.2) g/dL Albumin 4.5 (3.5-5.0) g/dL Current Medications Generic Name Dose Route Start Last Admin Trade Name Freq PRN Reason Stop Dose Admin Acetaminophen 650 mg 06/15/22 17:04 Acetaminophen Tab 325 Mg Tab PO Q6HR PRN Mild Pain or Fever > 100.5 Apixaban 5 mg 06/16/22 07:00 06/16/22 06:02 Apixaban 5 Mg Tab PO 5 mg BID@0700,1600 [facility] Administration Protocol Atorvastatin Calcium 80 mg 06/15/22 21:00 06/15/22 21:00 Atorvastatin 80 Mg Tab PO 80 mg HS [facility] Administration Carvedilol 25 mg 06/16/22 07:30 06/16/22 06:02 Carvedilol 12.5 Mg Tab PO 25 mg BID-W/MEALS [facility] Administration Clopidogrel Bisulfate 75 mg 06/16/22 09:00 Clopidogrel 75 Mg Tab PO DAILY [facility] Hydralazine HCl 50 mg 06/15/22 21:00 06/15/22 21:00 Hydralazine Hcl 50 Mg Tab PO 50 mg BID [facility] Administration Nitroglycerin/Dextrose 50 mg/ 250 mls @ 1.5 mls/hr 06/15/22 15:58 06/15/22 17:30 IV Solution IV 06/16/22 15:57 0 mcg/min .Q24H STA 0 mls/hr Titration Protocol 5 MCG/MIN Insulin Aspart 0 unit 06/16/22 07:30 06/16/22 06:39 Insulin Aspart (Novolog) 100 Unit/Ml Vial SQ 4 unit ACHS [facility] Administration Protocol Isosorbide Mononitrate 60 mg 06/16/22 09:00 Isosorbide Mononitrate Er 60 Mg Tab.Er.24h PO DAILY [facility] Levothyroxine Sodium 125 mcg 06/16/22 06:30 06/16/22 06:02 Levothyroxine 125 Mcg Tab PO 125 mcg 0630 [facility] Administration Naloxone HCl 0.2 mg 06/15/22 17:04 Naloxone 0.4 Mg/Ml 1 Ml Vial IV Q2M PRN Opioid Reversal Intake and Output 06/15/22 06/15/22 06/16/22 14:59 22:59 06:59 Intake Total 2.763 Balance 2.763 Intake: Intake, IV Titration 2.763 Amount Nitroglycerin-D5w Pmx 50 2.763 mg In Dextrose/Water 1 250ml.bag @ 5 MCG/MIN 1.5 mls/hr IV .Q24H [facility] Rx#: [id number] Other: Voiding Method Bedside Commode # Voids 1 Weight 81.647 kg 81.647 kg Patient Weight 06/16/22 06:59 Weight 81.647 kg 06/15/22 16:02 06/15/22 16:02 Assessment and Plan Assessment: Assessment Heart failure exacerbation secondary to heart failure with preserved ejection fraction Hypertension emergency complicated by heart failure Status post transcutaneous aortic valve replacement Chronic evidence of myocardial injury was no evidence of ischemia Paroxysmal atrial fibrillation History of pulmonary embolic Coronary artery disease, nonobstructive Noncompliance with medications as well as diet Plan Restart the patient back on Lasix at 40 mg twice a day Monitor the kidney function and electrolytes Continue the current medical regimen Restart the patient on hydralazine at the home dose Continue monitor the blood pressure and adjust medications accordingly No need to repeat the echo in the light of recent echocardiogram Follow-up with the patient
[2022-06-16] MEDS: FUROSEMIDE 10 MG/ML 4 ML VIAL IV SCH ×2 (09:11→20:18)
[2022-06-16] MEDS: ISOSORBIDE MONONITRATE ER 60 MG TAB.ER.24H PO SCH (09:11)
[2022-06-16] MEDS: hydrALAZINE HCL 50 MG TAB PO SCH ×2 (09:11→20:18)
[2022-06-16] MEDS: CLOPIDOGREL 75 MG TAB PO SCH (09:11)
[2022-06-16 11:45] LABS: Glucose,Whole Blood 275 mg/dL (70-110)
[2022-06-16 14:22] LABS: Basophils % (A) 0 %; Eosinophils % (A) 0 %; HCT 33.1 % (34.0-46.0); Hypochromasia Marked; Lymphocytes # (A) 0.5 k/uL (1.0-4.8); Lymphocytes % (A) 4 %; MCH 27.1 pg (25.0-35.0); MCHC 30.2 g/dL (31.0-37.0); MCV 89.8 fL (80.0-100.0); Mean Platelet Volume 8.8; Monocytes # (A) 0.6 k/uL (0-1.0); Monocytes % (A) 5 %; Neutrophils # (A) 10.9 k/uL (1.3-7.7); Neutrophils % (A) 91 %; Platelet Count 204 k/uL (150-450); RBC 3.69 m/uL (3.80-5.40); RDW 14.4 % (11.5-15.5)
[2022-06-16 14:29] LABS: Calcium 8.5 mg/dL (8.4-10.2); Potassium 4.2 mmol/L (3.5-5.1)
[2022-06-16] MEDS: hydrALAZINE HCL 20 MG/ML 1 ML VIAL IVP PRN (14:54)
--- NOTE | 2022-06-16 15:15 | P.CNPUL ---
History of Present Illness Consult date: 06/16/22 Requesting physician: Anmol Soto Reason for consult: dyspnea, hypoxemia, pleural effusion, abnormal CXR/CT Chief complaint: Shortness of breath. History of present illness: Pulmonary consult dated 06/16/2022. 81 -year-old female who presents to the emergency department on June 15, at 1551, complaining about shortness of breath. She apparently was very short of breath, and felt to be in extremis. Her saturations were apparently in the 70s according to the EMS personnel. She apparently was placed on a nonrebreather mask but did not improve. Subsequent to that, she was placed on CPAP, and was doing a bit better. She was able to speak in full sentences. She apparently missed taking her blood pressure medication, and her blood pressure in the emergency department was 210/110. She was thought to have flash pulmonary edema. Consulted because of shortness of breath. She has a history of atrial fibrillation, angina, heart failure, COPD, CVA, diabetes, hyperlipidemia, hypertension, DJD, pneumonia, sleep apnea, and thyroid disease. We saw her, she was resting comfortably. She was on 4 L of oxygen. She uses 2 L at home. She was here in the hospital back in March 2022. She has a history of aortic stenosis, status post transcatheter aortic valve replacement. N-terminal pro BNP on admission was 3340. White count 12, hemoglobin 10, hematocrit 33.1, and platelet count 204,000. Sodium, potassium, chloride, and CO2 were all normal. BUN 34, creatinine 1.9. Troponin was 0.093. Chest x-ray was consistent with CHF. Review of Systems REVIEW OF SYSTEMS: CONSTITUTIONAL: [Negative.] NEUROLOGIC: [ Negative.] HEENT: [ Negative.] CARDIAC: Shortness of breath. PULMONARY: Shortness of breath. GI: [Negative.] : [Negative.] RHEUMATOLOGIC: [ Negative.] IMMUNOLOGIC: [ Negative.] ENDOCRINE: [Negative. ] DERMATOLOGIC: [Negative.] Past Medical History Past Medical History: Atrial Fibrillation, Cancer, Chest Pain / Angina, Heart Failure, COPD, CVA/TIA, Diabetes Mellitus, Hyperlipidemia, Hypertension, Osteoarthritis (OA), Pneumonia, Renal Disease, Sleep Apnea/CPAP/BIPAP, Syncope, Thyroid Disorder Additional Past Medical History / Comment(s): Severe aortic stenosis with a previous TAVR, nonocclusive coronary artery disease, diabetes mellitus type 2, paroxysmal atrial fibrillation, previous pulmonary embolism based on a intermediate probability VQ scan with a negative Dopplers, obstructive sleep apnea, chronic stage III kidney disease, hypertension, hyperlipidemia, previous history of CVA, previous history of compression fracture of T12 spine, chronic back pain, chronic anemia, hypothyroidism, vitamin D deficiency, skin cancer that has been resected, previous history of pneumonia with sepsis, previous history of right-sided pleural effusion requiring thoracentesis, previous history of CVA back in 2012 History of Any Multi-Drug Resistant Organisms: None Reported Past Surgical History: Adenoidectomy, Back Surgery, Bariatric Surgery, Cholecystectomy, Heart Catheterization, Hysterectomy, Tonsillectomy Additional Past Surgical History / Comment(s): 03/2022 TAVR, Cardiac caths 201 08/2014, lap band placed/since removed, low back surgery, L carpal tunnel release X2, pain clinic procedures, skin cancer removal, colonoscopies, bilateral cataract removals/lens implants. Past Anesthesia/Blood Transfusion Reactions: Previous Problems w/ Anesthesia Additional Past Anesthesia/Blood Transfusion Reaction / Comment(s): "Had too much anesthesia in 2007 for lap band removal, had to be bagged." Smoking Status: Never smoker - Past Family History Sister(s) Family Medical History: Myocardial Infarction ([place]) Brother(s) Family Medical History: Cancer Additional Family Medical History / Comment(s): Colon Cancer. Mother Family Medical History: Dementia Additional Family Medical History / Comment(s): Mother of dementia at the age of 89yrs. Father Family Medical History: Cancer Additional Family Medical History / Comment(s): Pt states her father was treated for a sinus infection but really had leukemia and of this at the age of 72 yrs. Medications and Allergies Home Medications Medication Instructions Recorded Confirmed Type Atorvastatin [Lipitor] 80 mg PO HS 06/30/18 06/15/22 History Sertraline [Zoloft] 25 mg PO DAILY 08/30/21 06/15/22 History Artificial Tears-Hypromellose 1 drop BOTH EYES TID PRN 09/24/21 06/15/22 History [Artificial Tear Drops] Isosorbide Mononitrate ER [Imdur] 60 mg PO DAILY 09/24/21 06/15/22 History Levothyroxine Sodium [Synthroid] 125 mcg PO DAILY 12/01/21 06/15/22 History Magnesium Oxide [Mag-Ox] 400 mg PO DAILY 12/01/21 06/15/22 History Melatonin [Melatonin ER] 10 mg PO HS 12/01/21 06/15/22 History polyethylene glycoL 3350 [Miralax] 17 gm PO DAILY PRN 12/01/21 06/15/22 History Acetaminophen Tab [Tylenol] 650 mg PO Q4H PRN #60 tab 12/21/21 06/15/22 Rx Insuln Asp Prt/Insulin Aspart 20 unit SQ AC-SUPPER 30 Days #5 12/21/21 06/15/22 Rx [NovoLOG MIX 70-30 VIAL] each Ferrous Sulfate [Feosol] 325 mg PO DAILY 03/02/22 06/15/22 History Cholecalciferol [Vitamin D3 (25 25 mcg PO DAILY 04/04/22 06/15/22 History Mcg = 1000 Iu)] Furosemide [Lasix] 40 mg PO BID@0900,1600 04/04/22 06/15/22 History Omeprazole [PriLOSEC] 40 mg PO DAILY 04/04/22 06/15/22 History Potassium Chloride [Klor-Con M20] 20 meq PO DAILY 04/04/22 06/15/22 History Pioglitazone [Actos] 15 mg PO DAILY 04/05/22 06/15/22 History Albuterol Inhaler [Ventolin Hfa 2 puff INHALATION RT-Q6H PRN #1 04/14/22 06/15/22 Rx Inhaler] each Docusate [Colace] 100 mg PO DAILY 04/19/22 06/15/22 History Apixaban [Eliquis] 5 mg PO BID@0700,1600 tab 04/27/22 06/15/22 Rx carvediloL [Coreg*] 25 mg PO BID-W/MEALS 30 Days #120 04/27/22 06/15/22 Rx tab hydrALAZINE HCL [Apresoline] 50 mg PO BID #60 tab 04/27/22 06/15/22 Rx Insuln Asp Prt/Insulin Aspart 30 unit SQ AC-BRKFST 05/01/22 06/15/22 History [NovoLOG MIX 70-30 VIAL] Clopidogrel [Plavix] 75 mg PO DAILY #30 tablet 05/29/22 06/15/22 Rx Budesonide/Formoterol Fumarate 2 puff INHALATION RT-BID 06/15/22 06/15/22 His tory [Symbicort 160-4.5 Mcg Inhaler] Nystatin/Triamcin 1 applic TOPICAL TID 06/15/22 06/15/22 History [Nystatin-Triamcinolone Cream] busPIRone HCl [Buspar] 10 mg PO BID 06/15/22 06/15/22 History Allergies Allergy/AdvReac Type Severity Reaction Status Date / Time azithromycin Allergy Rash/Hives Verified 06/15/22 17:36 [From Zithromax Z-Jeanmarie] methylprednisolone Allergy Rash/Hives Verified 06/15/22 17:36 [From Medrol] sulfamethoxazole Allergy Rash/Hives Verified 06/15/22 17:36 [From Bactrim] trimethoprim [From Bactrim] Allergy Rash/Hives Verified 06/15/22 17:36 hydrochlorothiazide AdvReac Unknown Verified 06/15/22 17:36 hydrocodone AdvReac Hallucinati Verified 06/15/22 17:36 ons Physical Exam Osteopathic Statement: *. No significant issues noted on an osteopathic structural exam other than those noted in the History and Physical/Consult. Vitals: Vital Signs Temp Pulse Pulse Resp BP BP Pulse Ox 06/16/22 14:00 63 18 06/16/22 12:00 63 18 180/75 98 06/16/22 08:00 71 18 172/74 94 L 06/16/22 04:00 71 19 195/77 93 L 06/15/22 23:16 66 19 160/72 94 L 06/15/22 22:20 57 L 16 94 L 06/15/22 21:01 56 L 161/73 93 L 06/15/22 19:44 55 L 161/77 91 L 06/15/22 19:25 54 L 21 172/79 92 L 06/15/22 19:05 56 L 22 158/71 93 L 06/15/22 18:45 55 L 22 158/65 94 L 06/15/22 18:40 50 L 22 145/69 94 L 06/15/22 18:15 55 L 24 145/69 92 L 06/15/22 18:00 58 L 22 133/60 92 L 06/15/22 17:55 56 L 20 149/66 91 L 06/15/22 17:50 67 24 132/64 92 L 06/15/22 17:45 54 L 24 133/66 92 L 06/15/22 17:40 52 L 24 127/59 92 L 06/15/22 17:35 51 L 24 121/63 96 06/15/22 17:30 50 L 24 113/66 95 06/15/22 17:25 50 L 22 117/63 95 06/15/22 17:20 49 L 21 110/63 95 06/15/22 17:15 49 L 22 115/60 95 06/15/22 17:10 52 L 22 113/57 95 06/15/22 17:05 51 L 22 104/57 95 06/15/22 17:00 50 L 23 128/61 95 06/15/22 16:55 49 L 24 114/58 97 06/15/22 16:50 48 L 23 121/64 97 06/15/22 16:45 56 L 26 H 120/64 97 06/15/22 16:40 56 L 24 128/66 96 06/15/22 16:35 57 L 25 H 127/69 97 06/15/22 16:15 70 06/15/22 16:03 06/15/22 16:02 40 H 06/15/22 15:53 98.0 F 90 26 H 209/106 98 FiO2 06/16/22 14:00 06/16/22 12:00 06/16/22 08:00 06/16/22 04:00 06/15/22 23:16 06/15/22 22:20 06/15/22 21:01 06/15/22 19:44 06/15/22 19:25 06/15/22 19:05 06/15/22 18:45 06/15/22 18:40 06/15/22 18:15 06/15/22 18:00 06/15/22 17:55 06/15/22 17:50 06/15/22 17:45 06/15/22 17:40 06/15/22 17:35 06/15/22 17:30 06/15/22 17:25 06/15/22 17:20 06/15/22 17:15 06/15/22 17:10 06/15/22 17:05 06/15/22 17:00 06/15/22 16:55 06/15/22 16:50 06/15/22 16:45 06/15/22 16:40 06/15/22 16:35 06/15/22 16:15 06/15/22 16:03 50 06/15/22 16:02 06/15/22 15:53 Intake and Output 06/16/22 06/16/22 06/16/22 06:59 14:59 22:59 Output Total 2 Balance -2 Output: Other 2 Other: Voiding Method Bedside Commode Bedside Commode # Voids 1 2 Weight 81.647 kg No acute distress, oriented 3. 4 L saturation is 98%. HEENT examination is grossly unremarkable. Neck supple. Full range of motion. No adenopathy thyromegaly or neck vein distention. Cardiovascular examination reveals regular rhythm rate. S1-S2 normal. No S3 or S4. A soft systolic murmur is noted. Heart rate 63 bpm. Heart sounds are distant. Lungs reveal bibasilar crackles. No rhonchi. No wheezes. Breath sounds are diminished at the bases. Abdomen soft bowel sounds are heard. No masses or tenderness. Extremities are intact. No cyanosis or clubbing. Trace edema present. Skin is without rash or lesion. Neurologic examination is brief but nonfocal. Results - Laboratory Findings CBC and BMP: 06/16/22 12:28 06/16/22 12:28 PT/INR, D-dimer PT 10.7 sec (9.0-12.0) 06/15/22 16:02 INR 1.0 (<1.2) 06/15/22 16:02 Abnormal lab findings: Abnormal Labs 06/15/22 06/15/22 06/15/22 16:02 16:02 16:02 WBC 11.5 H RBC Hgb Hct MCHC 30.7 L Neutrophils # 8.2 H Lymphocytes # Monocytes # 1.1 H BUN 26 H Creatinine 1.20 H Glucose 374 H POC Glucose (mg/dL) AST 50 H Troponin I 0.081 H* 06/15/22 06/15/22 06/15/22 19:24 22:25 23:28 WBC RBC Hgb Hct MCHC Neutrophils # Lymphocytes # Monocytes # BUN Creatinine Glucose POC Glucose (mg/dL) 204 H AST Troponin I 0.105 H* 0.093 H* 06/16/22 06/16/22 06/16/22 06:11 11:44 12:28 WBC 12.0 H RBC 3.69 L Hgb 10.0 L D Hct 33.1 L MCHC 30.2 L Neutrophils # 10.9 H Lymphocytes # 0.5 L Monocytes # BUN Creatinine Glucose POC Glucose (mg/dL) 204 H 275 H AST Troponin I 06/16/22 12:28 WBC RBC Hgb Hct MCHC Neutrophils # Lymphocytes # Monocytes # BUN 34 H Creatinine 1.59 H Glucose 266 H POC Glucose (mg/dL) AST Troponin I - Diagnostic Findings Chest x-ray: image reviewed Assessment and Plan Assessment: Acute hypoxemic respiratory failure secondary to CHF and flash pulmonary edema. History of aortic stenosis, status post transcatheter aortic valve replacement, March 2022. History of chronic atrial fibrillation. History of CVA. History of angina pectoris. History of diabetes. History of hyperlipidemia. History of hypertension. History of osteoarthritis. History of hypothyroidism. Stage III chronic kidney disease. Sleep apnea, maintained on CPAP. Multiple medical problems and comorbidities. Plan: Plan dated 06/16/2022. The patient appears to be doing much better. The patient was treated with diuretics. She's currently on 4 L nasal O2. Saturations are in the mid to high 90s. Labs, x-rays, and medications are reviewed. It's not clear to me that the patient has COPD. The patient is apparently a nonsmoker. Corticosteroids are not indicated. Breathing treatments would be of limited benefit. Additional recommendations and suggestions are forthcoming. We'll continue to follow make recommendations along the way. Time with Patient: Greater than 30
[2022-06-16 16:33] LABS: Glucose,Whole Blood 349 mg/dL (70-110)
--- NOTE | 2022-06-16 17:46 | P.HPIM ---
History of Present Illness H&P Date: 06/16/22 Chief Complaint: Shortness of breath 81-year-old female, with history of hypertension, hyperlipidemia, diabetes mellitus, hypothyroidism, atrial fibrillation, COPD, CHF, presents to the emergency department. Patient felt to be hypoxic in the 70s by paramedics. She was placed on a nonrebreather but did not report improvement. She was placed on CPAP for transport. She is able to answer some simple questions. No fever. No chest pain. According to family she had been doing quite well this morning but had missed taking her blood pressure medication. Initial blood pressure upon arrival is 210/110. She is in severe respiratory distress. In the ED patient was found to be hypotensive and in flash pulmonary edema; chest x-ray revealed bilateral pulmonary edema and pleural effusions; lab review shows a WBC of 11.5, hemoglobin of 11.6 and platelet count of 307, sodium 139, potassium 5.1, BUN/creatinine of 26/1.2 and blood glucose of 374; troponin is mildly elevated at 0.320 EKG Findings:: EKG: Says bradycardia, low voltage, rate of 55, IA interval 146, QRS duration 116, QTC 477, no ST segment elevation Review of Systems ROS unobtainable: due to mental status Past Medical History Past Medical History: Atrial Fibrillation, Cancer, Chest Pain / Angina, Heart Failure, COPD, CVA/TIA, Diabetes Mellitus, Hyperlipidemia, Hypertension, Osteoarthritis (OA), Pneumonia, Renal Disease, Sleep Apnea/CPAP/BIPAP, Syncope, Thyroid Disorder Additional Past Medical History / Comment(s): Severe aortic stenosis with a previous TAVR, nonocclusive coronary artery disease, diabetes mellitus type 2, paroxysmal atrial fibrillation, previous pulmonary embolism based on a intermediate probability VQ scan with a negative Dopplers, obstructive sleep apnea, chronic stage III kidney disease, hypertension, hyperlipidemia, previous history of CVA, previous history of compression fracture of T12 spine, chronic back pain, chronic anemia, hypothyroidism, vitamin D deficiency, skin cancer that has been resected, previous history of pneumonia with sepsis, previous history of right-sided pleural effusion requiring thoracentesis, previous history of CVA back in 2012 History of Any Multi-Drug Resistant Organisms: None Reported Past Surgical History: Adenoidectomy, Back Surgery, Bariatric Surgery, C holecystectomy, Heart Catheterization, Hysterectomy, Tonsillectomy Additional Past Surgical History / Comment(s): 03/2022 TAVR, Cardiac caths , lap band placed/since removed, low back surgery, L carpal tunnel release X2, pain clinic procedures, skin cancer removal, colonoscopies, bilateral cataract removals/lens implants. Past Anesthesia/Blood Transfusion Reactions: Previous Problems w/ Anesthesia Additional Past Anesthesia/Blood Transfusion Reaction / Comment(s): "Had too much anesthesia in 2007 for lap band removal, had to be bagged." Smoking Status: Never smoker - Past Family History Sister(s) Family Medical History: Myocardial Infarction ([place]) Brother(s) Family Medical History: Cancer Additional Family Medical History / Comment(s): Colon Cancer. Mother Family Medical History: Dementia Additional Family Medical History / Comment(s): Mother of dementia at the age of 89yrs. Father Family Medical History: Cancer Additional Family Medical History / Comment(s): Pt states her father was treated for a sinus infection but really had leukemia and of this at the age of 72 yrs. Medications and Allergies Home Medications Medication Instructions Recorded Confirmed Type Atorvastatin [Lipitor] 80 mg PO HS 06/30/18 06/15/22 History Sertraline [Zoloft] 25 mg PO DAILY 08/30/21 06/15/22 History Artificial Tears-Hypromellose 1 drop BOTH EYES TID PRN 09/24/21 06/15/22 History [Artificial Tear Drops] Isosorbide Mononitrate ER [Imdur] 60 mg PO DAILY 09/24/21 06/15/22 History Levothyroxine Sodium [Synthroid] 125 mcg PO DAILY 12/01/21 06/15/22 History Magnesium Oxide [Mag-Ox] 400 mg PO DAILY 12/01/21 06/15/22 History Melatonin [Melatonin ER] 10 mg PO HS 12/01/21 06/15/22 History polyethylene glycoL 3350 [Miralax] 17 gm PO DAILY PRN 12/01/21 06/15/22 History Acetaminophen Tab [Tylenol] 650 mg PO Q4H PRN #60 tab 12/21/21 06/15/22 Rx Insuln Asp Prt/Insulin Aspart 20 unit SQ AC-SUPPER 30 Days #5 12/21/21 06/15/22 Rx [NovoLOG MIX 70-30 VIAL] each Ferrous Sulfate [Feosol] 325 mg PO DAILY 03/02/22 06/15/22 History Cholecalciferol [Vitamin D3 (25 25 mcg PO DAILY 04/04/22 06/15/22 History Mcg = 1000 Iu)] Furosemide [Lasix] 40 mg PO BID@0900,1600 04/04/22 06/15/22 History Omeprazole [PriLOSEC] 40 mg PO DAILY 04/04/22 06/15/22 History Potassium Chloride [Klor-Con M20] 20 meq PO DAILY 04/04/22 06/15/22 History Pioglitazone [Actos] 15 mg PO DAILY 04/05/22 06/15/22 History Albuterol Inhaler [Ventolin Hfa 2 puff INHALATION RT-Q6H PRN #1 04/14/22 06/15/22 Rx Inhaler] each Docusate [Colace] 100 mg PO DAILY 04/19/22 06/15/22 History Apixaban [Eliquis] 5 mg PO BID@0700,1600 tab 04/27/22 06/15/22 Rx carvediloL [Coreg*] 25 mg PO BID-W/MEALS 30 Days #120 04/27/22 06/15/22 Rx tab hydrALAZINE HCL [Apresoline] 50 mg PO BID #60 tab 04/27/22 06/15/22 Rx Insuln Asp Prt/Insulin Aspart 30 unit SQ AC-BRKFST 05/01/22 06/15/22 History [NovoLOG MIX 70-30 VIAL] Clopidogrel [Plavix] 75 mg PO DAILY #30 tablet 05/29/22 06/15/22 Rx Budesonide/Formoterol Fumarate 2 puff INHALATION RT-BID 06/15/22 06/15/22 History [Symbicort 160-4.5 Mcg Inhaler] Nystatin/Triamcin 1 applic TOPICAL TID 06/15/22 06/15/22 History [Nystatin-Triamcinolone Cream] busPIRone HCl [Buspar] 10 mg PO BID 06/15/22 06/15/22 History Allergies Allergy/AdvReac Type Severity Reaction Status Date / Time azithromycin Allergy Rash/Hives Verified 06/15/22 17:36 [From Zithromax Z-Jeanmarie] methylprednisolone Allergy Rash/Hives Verified 06/15/22 17:36 [From Medrol] sulfamethoxazole Allergy Rash/Hives Verified 06/15/22 17:36 [From Bactrim] trimethoprim [From Bactrim] Allergy Rash/Hives Verified 06/15/22 17:36 hydrochlorothiazide AdvReac Unknown Verified 06/15/22 17:36 hydrocodone AdvReac Hallucinati Verified 06/15/22 17:36 ons Physical Exam Vitals: Vital Signs Temp Pulse Pulse Resp BP BP Pulse Ox 06/16/22 08:00 71 18 172/74 94 L 06/16/22 04:00 71 19 195/77 93 L 06/15/22 23:16 66 19 160/72 94 L 06/15/22 22:20 57 L 16 94 L 06/15/22 21:01 56 L 161/73 93 L 06/15/22 19:44 55 L 161/77 91 L 06/15/22 19:25 54 L 21 172/79 92 L 06/15/22 19:05 56 L 22 158/71 93 L 06/15/22 18:45 55 L 22 158/65 94 L 06/15/22 18:40 50 L 22 145/69 94 L 06/15/22 18:15 55 L 24 145/69 92 L 06/15/22 18:00 58 L 22 133/60 92 L 06/15/22 17:55 56 L 20 149/66 91 L 06/15/22 17:50 67 24 132/64 92 L 06/15/22 17:45 54 L 24 133/66 92 L 06/15/22 17:40 52 L 24 127/59 92 L 06/15/22 17:35 51 L 24 121/63 96 06/15/22 17:30 50 L 24 113/66 95 06/15/22 17:25 50 L 22 117/63 95 06/15/22 17:20 49 L 21 110/63 95 06/15/22 17:15 49 L 22 115/60 95 06/15/22 17:10 52 L 22 113/57 95 06/15/22 17:05 51 L 22 104/57 95 06/15/22 17:00 50 L 23 128/61 95 06/15/22 16:55 49 L 24 114/58 97 06/15/22 16:50 48 L 23 121/64 97 06/15/22 16:45 56 L 26 H 120/64 97 06/15/22 16:40 56 L 24 128/66 96 06/15/22 16:35 57 L 25 H 127/69 97 06/15/22 16:15 70 06/15/22 16:03 06/15/22 16:02 40 H 06/15/22 15:53 98.0 F 90 26 H 209/106 98 FiO2 06/16/22 08:00 06/16/22 04:00 06/15/22 23:16 06/15/22 22:20 06/15/22 21:01 06/15/22 19:44 06/15/22 19:25 06/15/22 19:05 06/15/22 18:45 06/15/22 18:40 06/15/22 18:15 06/15/22 18:00 06/15/22 17:55 06/15/22 17:50 06/15/22 17:45 06/15/22 17:40 06/15/22 17:35 06/15/22 17:30 06/15/22 17:25 06/15/22 17:20 06/15/22 17:15 06/15/22 17:10 06/15/22 17:05 06/15/22 17:00 06/15/22 16:55 06/15/22 16:50 06/15/22 16:45 06/15/22 16:40 06/15/22 16:35 06/15/22 16:15 06/15/22 16:03 50 06/15/22 16:02 06/15/22 15:53 Intake and Output 06/15/22 06/16/22 06/16/22 22:59 06:59 14:59 Intake Total 2.763 Balance 2.763 Intake: Intake, IV Titration 2.763 Amount Nitroglycerin-D5w Pmx 50 2.763 mg In Dextrose/Water 1 250ml.bag @ 5 MCG/MIN 1.5 mls/hr IV .Q24H STA Rx#: [id number] Other: Voiding Method Bedside Commode Bedside Commode # Voids 1 Weight 81.647 kg 81.647 kg General appearance: in distress Head exam: Present: atraumatic, normocephalic Eye exam: Present: normal appearance, PERRL ENT exam: Present: mucous membranes dry Respiratory exam: Present: respiratory distress, rales, accessory muscle use, decreased breath sounds Cardiovascular Exam: Present: regular rate, normal rhythm, systolic murmur GI/Abdominal exam: Present: soft. Absent: distended, tenderness, guarding Extremities exam: Present: normal inspection. Absent: normal capillary refill, pedal edema Neurological exam: Present: alert. Absent: motor sensory deficit Psychiatric exam: Present: anxious Skin exam: Present: warm, dry, intact. Absent: cyanosis, diaphoretic Results CBC & Chem 7: 06/16/22 12:28 06/16/22 12:28 Labs: Abnormal Lab Results - Last 24 Hours (Table) 06/15/22 06/15/22 06/15/22 Range/Units 16:02 16:02 16:02 WBC 11.5 H (3.8-10.6) k/uL MCHC 30.7 L (31.0-37.0) g/dL Neutrophils # 8.2 H (1.3-7.7) k/uL Monocytes # 1.1 H (0-1.0) k/uL BUN 26 H (7-17) mg/dL Creatinine 1.20 H (0.52-1.04) mg/dL Glucose 374 H (74-99) mg/dL POC Glucose (mg/dL) (70-110) mg/dL AST 50 H (14-36) U/L Troponin I 0.081 H* (0.000-0.034) ng/mL 06/15/22 06/15/22 06/15/22 Range/Units 19:24 22:25 23:28 WBC (3.8-10.6) k/uL MCHC (31.0-37.0) g/dL Neutrophils # (1.3-7.7) k/uL Monocytes # (0-1.0) k/uL BUN (7-17) mg/dL Creatinine (0.52-1.04) mg/dL Glucose (74-99) mg/dL POC Glucose (mg/dL) 204 H (70-110) mg/dL AST (14-36) U/L Troponin I 0.105 H* 0.093 H* (0.000-0.034) ng/mL 06/16/22 06/16/22 Range/Units 06:11 11:44 WBC (3.8-10.6) k/uL MCHC (31.0-37.0) g/dL Neutrophils # (1.3-7.7) k/uL Monocytes # (0-1.0) k/uL BUN (7-17) mg/dL Creatinine (0.52-1.04) mg/dL Glucose (74-99) mg/dL POC Glucose (mg/dL) 204 H 275 H (70-110) mg/dL AST (14-36) U/L Troponin I (0.000-0.034) ng/mL Thrombosis Risk Factor Assmnt - Choose All That Apply Any of the Below Risk Factors Present?: Yes Each Factor Represents 1 point: Abnormal pulmonary function (COPD), Obesity (BMI >25) Each Risk Factor Represents 3 Points: Age 75 years or older Thrombosis Risk Factor Assessment Total Risk Factor Score: 5 Thrombosis Risk Factor Assessment Level: High Risk Assessment and Plan Assessment: 1. Acute exacerbation CHF with preserved EF; patient has been placed on Lasix 40 mg IV every 12 hours; we will monitor strict FRANKLIN's, daily weights, low salt and fluid restricted diet - Cardiology on board and agreeable with plan of care 2. Hypertensive emergency; noncompliance with medication; cardiology recommending to restart patient on home medications along with hydralazine and continue to monitor blood pressure closely for further adjustment 3. Elevated troponin; chronic evidence of myocardial injury with no evidence of acute ischemia; repeat echocardiogram was not recommended given patient had recent echocardiogram completed 4. Acute hypoxemic respiratory failure related to flash pulmonary edema; patient did respond well to diuresis; currently maintaining O2 saturation above 92% on 4 L O2 per nasal cannula 5. Chronic atrial fibrillation; remains rate controlled on Coreg 25 mg twice a day; anticoagulated with Eliquis 5 mg twice a day 6. Diabetes mellitus; monitor Accu-Cheks before meals and at bedtime with insulin sliding scale 7. Hyperlipidemia; Lipitor 80 mg by mouth daily at bedtime 8. Hypothyroidism; levothyroxine 125 MCG daily 9. Chronic kidney disease stage III; stable at baseline 10. Sleep apnea; continue with home CPAP therapy
[2022-06-16 19:58] LABS: Glucose,Whole Blood 328 mg/dL (70-110)
[2022-06-16] MEDS: ATORVASTATIN 80 MG TAB PO SCH (20:18)
[2022-06-17] MEDS: carvediloL 12.5 MG TAB PO SCH ×2 (05:07→17:04)
[2022-06-17] MEDS: LEVOTHYROXINE 125 MCG TAB PO SCH (05:07)
[2022-06-17] MEDS: APIXABAN 2.5 MG TABLET PO SCH ×2 (05:07→17:04)
[2022-06-17] MEDS: hydrALAZINE HCL 20 MG/ML 1 ML VIAL IVP PRN (05:08)
--- NOTE | 2022-06-17 06:22 | P.PN ---
Subjective Progress Note Date: 06/17/22 Principal diagnosis: Hypertension emergency The patient is a pleasant 81-year-old female patient with a past medical history significant for valvular heart disease with known severe aortic stenosis status post transcutaneous aortic valve replacement was performed in 2021, heart failure with preserved ejection fraction, mild nonobstructive coronary artery disease based on recent heart catheterization, hypertension, dyslipidemia, paroxysmal atrial fibrillation, as well as history of pulmonary involving us in. We requested to see the patient as a consult here for further evaluation off heart failure. Patient has multiple hospital admissions with congestive heart failure. She was in her usual state of health until about 3 days ago when she started experiencing progressive exertional dyspnea with no associated lower extremities edema and no associated chest pain or chest discomfort and no dizziness or lightheadedness and no feeling of heart racing or fluttering or pr esyncope or syncope. No symptoms of fever or chills and no cough or sputum production. Her daughter brought her to the emergency department for further investigation. She underwent a chest x-ray which showed finding consistent with heart failure. She underwent an EKG which showed sinus rhythm. Her troponin is a slightly elevated but she is normal at 24. She also underwent and the proBNP which came in to be 4000. Beside that when she presented to the emergency department she was found to be hypertensive and initially she was started on nitro drip. The patient stated that she has been compliant with her medications except the hydralazine. She has not taken it. She also stated that she has been eating food through an agency and clearly the foot is not helping and has high sodium. The most recent echo from 2021 revealed normal left ventricular systolic function with normally functioning transcatheter valve. The patient was seen and examined this morning clearly she is in heart failure with crackles bilaterally and mild bilateral lower extremities edema noted also examination. Currently also she is hypoxic requiring 2 L of oxygen to maintain saturation above 90 June [id number] The patient was seen this morning. Overall she seems to be better. She is on Lasix IV and she has been diuresing very well. Currently she is on 2 L oxygen. On examination she seems to be euvolemic with diminished breathing sounds bilaterally. The pressure continues to be elevated. I'm going to increase the dose of hydralazine 200 mg by mouth 3 times a day. Continue monitor the press ure and adjust her medications or add medications 2. Meanwhile I would advise continue IV Lasix for at least additional 24 hours. We'll continue following up with the patient Objective - Vital Signs Vital signs: Vital Signs Temp 98.0 F 06/15/22 15:53 Pulse 63 06/17/22 04:00 Resp 18 06/17/22 04:00 BP 176/77 06/17/22 04:00 Pulse Ox 96 06/17/22 04:00 FiO2 50 06/15/22 16:03 Intake & Output 06/16/22 06/16/22 06/17/22 06:59 18:59 06:59 Intake Total 459 Output Total 152 1000 Balance 307 -1000 Weight 81.647 kg Intake: Oral 459 Output: Urine 150 1000 Other 2 Other: Voiding Method Bedside Commode Bedside Commode Bedside Commode # Voids 1 2 - Constitutional General appearance: Present: no acute distress - Respiratory Respiratory: bilateral: diminished - Cardiovascular Rhythm: regular Abnormal Heart Sounds: Present: systolic murmur - Labs CBC & Chem 7: 06/16/22 12:28 06/16/22 12:28 Labs: Abnormal Lab Results - Last 24 Hours (Table) 06/16/22 06/16/22 06/16/22 Range/Units 11:44 12:28 12:28 WBC 12.0 H (3.8-10.6) k/uL RBC 3.69 L (3.80-5.40) m/uL Hgb 10.0 L D (11.4-16.0) gm/dL Hct 33.1 L (34.0-46.0) % MCHC 30.2 L (31.0-37.0) g/dL Neutrophils # 10.9 H (1.3-7.7) k/uL Lymphocytes # 0.5 L (1.0-4.8) k/uL BUN (7-17) mg/dL Creatinine (0.52-1.04) mg/dL Glucose (74-99) mg/dL POC Glucose (mg/dL) 275 H (70-110) mg/dL Procalcitonin 0.16 H (0.02-0.09) ng/mL 06/16/22 06/16/22 06/16/22 Range/Units 12:28 16:32 19:56 WBC (3.8-10.6) k/uL RBC (3.80-5.40) m/uL Hgb (11.4-16.0) gm/dL Hct (34.0-46.0) % MCHC (31.0-37.0) g/dL Neutrophils # (1.3-7.7) k/uL Lymphocytes # (1.0-4.8) k/uL BUN 34 H (7-17) mg/dL Creatinine 1.59 H (0.52-1.04) mg/dL Glucose 266 H (74-99) mg/dL POC Glucose (mg/dL) 349 H 328 H (70-110) mg/dL Procalcitonin (0.02-0.09) ng/mL Assessment and Plan Assessment: Assessment Heart failure exacerbation secondary to heart failure with preserved ejection fraction Hypertension emergency complicated by heart failure Status post transcutaneous aortic valve replacement Chronic evidence of myocardial injury was no evidence of ischemia Paroxysmal atrial fibrillation History of pulmonary embolic Coronary artery disease, nonobstructive Noncompliance with medications as well as diet Plan Increase the dose of hydralazine 200 mg by mouth 3 times a day Continue the IV Lasix for at least additional 24 hours Consider adding Aldactone Follow-up with the patient
[2022-06-17] MEDS: INSULIN ASPART (NovoLOG) 100 UNIT/ML VIAL SQ SCH ×4 (06:23→20:46)
[2022-06-17 06:33] LABS: Glucose,Whole Blood 321 mg/dL (70-110)
[2022-06-17] MEDS: CLOPIDOGREL 75 MG TAB PO SCH (08:32)
[2022-06-17] MEDS: ISOSORBIDE MONONITRATE ER 60 MG TAB.ER.24H PO SCH (08:33)
[2022-06-17] MEDS: hydrALAZINE HCL 50 MG TAB PO SCH ×3 (08:33→20:45)
[2022-06-17] MEDS: FUROSEMIDE 10 MG/ML 4 ML VIAL IV SCH ×2 (08:33→20:45)
[2022-06-17] MEDS: ACETAMINOPHEN TAB 325 MG TAB PO PRN (08:37)
[2022-06-17] MEDS: INSULIN DETEMIR (LEVEMIR) 100 UNIT/ML SYR SQ SCH (11:36)
--- NOTE | 2022-06-17 13:22 | P.PN ---
Subjective Progress Note Date: 06/17/22 Principal diagnosis: Congestive heart failure. Pulmonary consult dated 06/16/2022. 81 -year-old female who presents to the emergency department on June 15, at 1551, complaining about shortness of breath. She apparently was very short of breath, and felt to be in extremis. Her saturations were apparently in the 70s according to the EMS personnel. She apparently was placed on a nonrebreather mask but did not improve. Subsequent to that, she was placed on CPAP, and was doing a bit better. She was able to speak in full sentences. She apparently missed taking her blood pressure medication, and her blood pressure in the emergency department was 210/110. She was thought to have flash pulmonary edema. Consulted because of shortness of breath. She has a history of atrial fibrillation, angina, heart failure, COPD, CVA, diabetes, hyperlipidemia, hypertension, DJD, pneumonia, sleep apnea, and thyroid disease. We saw her, she was resting comfortably. She was on 4 L of oxygen. She uses 2 L at home. She was here in the hospital back in March 2022. She has a history of aortic stenosis, status post transcatheter aortic valve replacement. N-terminal pro BNP on admission was 3340. White count 12, hemoglobin 10, hematocrit 33.1, and platelet count 204,000. Sodium, potassium, chloride, and CO2 were all normal. BUN 34, creatinine 1.9. Troponin was 0.093. Chest x-ray was consistent with CHF. Progress note dated 06/17/2022. 81-year-old female seen yesterday in consultation. She is doing well. She is in room 363. When she came to the emergency room, she was very short of breath. She required BiPAP therapy, and diuretics. Currently, the patient is on 2 L of oxygen. She's not receiving any IV fluids. No new labs today other than a glucose of 321. Pro-calcitonin level was 0.16. Objective - Vital Signs Vital signs: Vital Signs Temp 98.0 F 06/15/22 15:53 Pulse 63 06/17/22 04:00 Resp 18 06/17/22 04:00 BP 151/68 06/17/22 06:24 Pulse Ox 96 06/17/22 04:00 FiO2 50 06/15/22 16:03 Intake & Output 06/16/22 06/17/22 06/17/22 18:59 06:59 18:59 Intake Total 459 Output Total 152 1000 200 Balance 307 -1000 -200 Weight 87.2 kg Intake: Oral 459 Output: Urine 150 1000 200 Other 2 Other: Voiding Method Bedside Commode Bedside Commode # Voids 2 - Exam No acute distress, oriented 3. 2 L saturation is 98%. HEENT examination is grossly unremarkable. Neck supple. Full range of motion. No adenopathy thyromegaly or neck vein distention. Cardiovascular examination reveals regular rhythm rate. S1-S2 normal. No S3 or S4. A soft systolic murmur is noted. Heart rate 65 bpm. Heart sounds are distant. Lungs reveal bibasilar crackles. No rhonchi. No wheezes. Breath sounds are diminished at the bases. Abdomen soft bowel sounds are heard. No masses or tenderness. Extremities are intact. No cyanosis or clubbing. Trace edema present. Skin is without rash or lesion. Neurologic examination is brief but nonfocal. - Labs CBC & Chem 7: 06/16/22 12:28 06/16/22 12:28 Labs: Abnormal Lab Results - Last 24 Hours (Table) 06/16/22 06/16/22 06/16/22 Range/Units 12:28 12:28 12:28 WBC 12.0 H (3.8-10.6) k/uL RBC 3.69 L (3.80-5.40) m/uL Hgb 10.0 L D (11.4-16.0) gm/dL Hct 33.1 L (34.0-46.0) % MCHC 30.2 L (31.0-37.0) g/dL Neutrophils # 10.9 H (1.3-7.7) k/uL Lymphocytes # 0.5 L (1.0-4.8) k/uL BUN 34 H (7-17) mg/dL Creatinine 1.59 H (0.52-1.04) mg/dL Glucose 266 H (74-99) mg/dL POC Glucose (mg/dL) (70-110) mg/dL Procalcitonin 0.16 H (0.02-0.09) ng/mL 06/16/22 06/16/22 06/17/22 Range/Units 16:32 19:56 06:20 WBC (3.8-10.6) k/uL RBC (3.80-5.40) m/uL Hgb (11.4-16.0) gm/dL Hct (34.0-46.0) % MCHC (31.0-37.0) g/dL Neutrophils # (1.3-7.7) k/uL Lymphocytes # (1.0-4.8) k/uL BUN (7-17) mg/dL Creatinine (0.52-1.04) mg/dL Glucose (74-99) mg/dL POC Glucose (mg/dL) 349 H 328 H 321 H (70-110) mg/dL Procalcitonin (0.02-0.09) ng/mL Assessment and Plan Assessment: Acute hypoxemic respiratory failure secondary to CHF and flash pulmonary edema. History of aortic stenosis, status post transcatheter aortic valve replacement, March 2022. History of chronic atrial fibrillation. History of CVA. History of angina pectoris. History of diabetes. History of hyperlipidemia. History of hypertension. History of osteoarthritis. History of hypothyroidism. Stage III chronic kidney disease. Sleep apnea, maintained on CPAP. Multiple medical problems and comorbidities. Plan: Plan dated 06/16/2022. The patient appears to be doing much better. The patient was treated with diuretics. She's currently on 4 L nasal O2. Saturations are in the mid to high 90s. Labs, x-rays, and medications are reviewed. It's not clear to me that the patient has COPD. The patient is apparently a nonsmoker. Corticosteroids are not indicated. Breathing treatments would be of limited benefit. Additional recommendations and suggestions are forthcoming. We'll continue to follow make recommendations along the way. Plan dated 06/17/2022. The patient is doing much better. She's been weaned down to 2 L of oxygen. Initially, she was so bad, that she needed BiPAP. She is resting comfortably, without any chest pain or chest discomfort. The patient is not particularly short of breath. Labs, x-rays, and medications are reviewed. We'll continue to follow the patient and make recommendations along the way. Prognosis is guarded. Time with Patient: Less than 30
--- NOTE | 2022-06-17 15:33 | P.PN ---
Subjective Progress Note Date: 06/17/22 Principal diagnosis: Acute exacerbation CHF with preserved EF Hypertensive emergency Elevated troponin; acute myocardial injury is ruled out Acute hypoxemic respiratory failure 81-year-old female, with history of hypertension, hyperlipidemia, diabetes me llitus, hypothyroidism, atrial fibrillation, COPD, CHF, presents to the emergency department. Patient felt to be hypoxic in the 70s by paramedics. She was placed on a nonrebreather but did not report improvement. She was placed on CPAP for transport. She is able to answer some simple questions. No fever. No chest pain. According to family she had been doing quite well this morning but had missed taking her blood pressure medication. Initial blood pressure upon arrival is 210/110. She is in severe respiratory distress. In the ED patient was found to be hypotensive and in flash pulmonary edema; chest x-ray revealed bilateral pulmonary edema and pleural effusions; lab review shows a WBC of 11.5, hemoglobin of 11.6 and platelet count of 307, sodium 139, potassium 5.1, BUN/creatinine of 26/1.2 and blood glucose of 374; troponin is mildly elevated at 0.320 EKG Findings:: EKG: Says bradycardia, low voltage, rate of 55, SC interval 146, QRS duration 116, QTC 477, no ST segment elevation Objective - Vital Signs Vital signs: Vital Signs Temp 98.0 F 06/15/22 15:53 Pulse 63 06/17/22 04:00 Resp 18 06/17/22 04:00 BP 151/68 06/17/22 06:24 Pulse Ox 96 06/17/22 04:00 FiO2 50 06/15/22 16:03 Intake & Output 06/16/22 06/17/22 06/17/22 18:59 06:59 18:59 Intake Total 459 Output Total 152 1000 Balance 307 -1000 Weight 87.2 kg Intake: Oral 459 Output: Urine 150 1000 Other 2 Other: Voiding Method Bedside Commode Bedside Commode # Voids 2 - Exam Head exam: Present: atraumatic, normocephalic Eye exam: Present: normal appearance, PERRL ENT exam: Present: mucous membranes dry Respiratory exam: Present: respiratory distress, rales, accessory muscle use, decreased breath sounds Cardiovascular Exam: Present: regular rate, normal rhythm, systolic murmur GI/Abdominal exam: Present: soft. Absent: distended, tenderness, guarding Extremities exam: Present: normal inspection. Absent: normal capillary refill, pedal edema Neurological exam: Present: alert. Absent: motor sensory deficit Psychiatric exam: Present: anxious Skin exam: Present: warm, dry, intact. Absent: cyanosis, diaphoretic - Labs CBC & Chem 7: 06/16/22 12:28 06/16/22 12:28 Labs: Abnormal Lab Results - Last 24 Hours (Table) 06/16/22 06/16/22 06/16/22 Range/Units 11:44 12:28 12:28 WBC 12.0 H (3.8-10.6) k/uL RBC 3.69 L (3.80-5.40) m/uL Hgb 10.0 L D (11.4-16.0) gm/dL Hct 33.1 L (34.0-46.0) % MCHC 30.2 L (31.0-37.0) g/dL Neutrophils # 10.9 H (1.3-7.7) k/uL Lymphocytes # 0.5 L (1.0-4.8) k/uL BUN (7-17) mg/dL Creatinine (0.52-1.04) mg/dL Glucose (74-99) mg/dL POC Glucose (mg/dL) 275 H (70-110) mg/dL Procalcitonin 0.16 H (0.02-0.09) ng/mL 06/16/22 06/16/22 06/16/22 Range/Units 12:28 16:32 19:56 WBC (3.8-10.6) k/uL RBC (3.80-5.40) m/uL Hgb (11.4-16.0) gm/dL Hct (34.0-46.0) % MCHC (31.0-37.0) g/dL Neutrophils # (1.3-7.7) k/uL Lymphocytes # (1.0-4.8) k/uL BUN 34 H (7-17) mg/dL Creatinine 1.59 H (0.52-1.04) mg/dL Glucose 266 H (74-99) mg/dL POC Glucose (mg/dL) 349 H 328 H (70-110) mg/dL Procalcitonin (0.02-0.09) ng/mL 06/17/22 Range/Units 06:20 WBC (3.8-10.6) k/uL RBC (3.80-5.40) m/uL Hgb (11.4-16.0) gm/dL Hct (34.0-46.0) % MCHC (31.0-37.0) g/dL Neutrophils # (1.3-7.7) k/uL Lymphocytes # (1.0-4.8) k/uL BUN (7-17) mg/dL Creatinine (0.52-1.04) mg/dL Glucose (74-99) mg/dL POC Glucose (mg/dL) 321 H (70-110) mg/dL Procalcitonin (0.02-0.09) ng/mL Assessment and Plan Assessment: 1. Acute exacerbation CHF with preserved EF; patient has been placed on Lasix 40 mg IV every 12 hours; we will monitor strict FRANKLIN's, daily weights, low salt and fluid restricted diet - Cardiology on board and agreeable with plan of care 2. Hypertensive emergency; noncompliance with medication; cardiology recommending to restart patient on home medications along with hydralazine and continue to monitor blood pressure closely for further adjustment 3. Elevated troponin; chronic evidence of myocardial injury with no evidence of acute ischemia; repeat echocardiogram was not recommended given patient had recent echocardiogram completed 4. Acute hypoxemic respiratory failure related to flash pulmonary edema; patient did respond well to diuresis; currently maintaining O2 saturation above 92% on 4 L O2 per nasal cannula 5. Chronic atrial fibrillation; remains rate controlled on Coreg 25 mg twice a day; anticoagulated with Eliquis 5 mg twice a day 6. Diabetes mellitus; monitor Accu-Cheks before meals and at bedtime with insulin sliding scale 7. Hyperlipidemia; Lipitor 80 mg by mouth daily at bedtime 8. Hypothyroidism; levothyroxine 125 MCG daily 9. Chronic kidney disease stage III; stable at baseline 10. Sleep apnea; continue with home CPAP therapy
[2022-06-17 17:01] LABS: Glucose,Whole Blood 409 mg/dL (70-110)
[2022-06-17 19:53] LABS: Glucose,Whole Blood 315 mg/dL (70-110)
[2022-06-17] MEDS: ATORVASTATIN 80 MG TAB PO SCH (20:46)
[2022-06-18] MEDS: ACETAMINOPHEN TAB 325 MG TAB PO PRN (01:29)
[2022-06-18] MEDS: APIXABAN 2.5 MG TABLET PO SCH ×2 (06:10→17:00)
[2022-06-18] MEDS: LEVOTHYROXINE 125 MCG TAB PO SCH (06:10)
[2022-06-18] MEDS: carvediloL 12.5 MG TAB PO SCH ×2 (06:10→17:00)
[2022-06-18] MEDS: INSULIN DETEMIR (LEVEMIR) 100 UNIT/ML SYR SQ SCH (06:15)
[2022-06-18] MEDS: INSULIN ASPART (NovoLOG) 100 UNIT/ML VIAL SQ SCH ×4 (06:15→20:32)
[2022-06-18 06:16] LABS: Glucose,Whole Blood 209 mg/dL (70-110)
--- NOTE | 2022-06-18 06:21 | P.PN ---
Subjective Progress Note Date: 06/18/22 Principal diagnosis: Hypertension emergency The patient is a pleasant 81-year-old female patient with a past medical history significant for valvular heart disease with known severe aortic stenosis status post transcutaneous aortic valve replacement was performed in 2021, heart failure with preserved ejection fraction, mild nonobstructive coronary artery disease based on recent heart catheterization, hypertension, dyslipidemia, paroxysmal atrial fibrillation, as well as history of pulmonary involving us in. We requested to see the patient as a consult here for further evaluation off heart failure. Patient has multiple hospital admissions with congestive heart failure. She was in her usual state of health until about 3 days ago when she started experiencing progressive exertional dyspnea with no associated lower extremities edema and no associated chest pain or chest discomfort and no dizziness or lightheadedness and no feeling of heart racing or fluttering or pr esyncope or syncope. No symptoms of fever or chills and no cough or sputum production. Her daughter brought her to the emergency department for further investigation. She underwent a chest x-ray which showed finding consistent with heart failure. She underwent an EKG which showed sinus rhythm. Her troponin is a slightly elevated but she is normal at 24. She also underwent and the proBNP which came in to be 4000. Beside that when she presented to the emergency department she was found to be hypertensive and initially she was started on nitro drip. The patient stated that she has been compliant with her medications except the hydralazine. She has not taken it. She also stated that she has been eating food through an agency and clearly the foot is not helping and has high sodium. The most recent echo from 2021 revealed normal left ventricular systolic function with normally functioning transcatheter valve. The patient was seen and examined this morning clearly she is in heart failure with crackles bilaterally and mild bilateral lower extremities edema noted also examination. Currently also she is hypoxic requiring 2 L of oxygen to maintain saturation above 90 June [id number] The patient was seen this morning. Overall she seems to be better. She is on Lasix IV and she has been diuresing very well. Currently she is on 2 L oxygen. On examination she seems to be euvolemic with diminished breathing sounds bilaterally. The pressure continues to be elevated. I'm going to increase the dose of hydralazine 200 mg by mouth 3 times a day. Continue monitor the press ure and adjust her medications or add medications 2. Meanwhile I would advise continue IV Lasix for at least additional 24 hours. We'll continue following up with the patient June [id number] The patient was seen and examined this morning. She is doing better overall. Shortness of breath has improved significantly and she has clear breathing sounds bilaterally. The lower extremity edema has improved significantly as well as. The blood pressure also has improved significantly. Her saturation has been normal without oxygen. From the cardiac standpoint of view, we will continue the current medical regimen with possible discharge in the next 12-24 hours. She was advised to be compliant with her medications as well as with her low-sodium diet. Objective - Vital Signs Vital signs: Vital Signs Temp 98.0 F 06/17/22 16:00 Pulse 72 06/18/22 04:00 Resp 19 06/18/22 04:00 BP 153/82 06/18/22 04:00 Pulse Ox 97 06/18/22 04:00 FiO2 50 06/15/22 16:03 Intake & Output 06/17/22 06/17/22 06/18/22 06:59 18:59 06:59 Intake Total 237 Output Total 1000 200 200 Balance -1000 -200 37 Weight 87.2 kg Intake: Oral 237 Output: Urine 1000 200 200 Other: Voiding Method Bedside Commode Bedside Commode Bedside Commode # Voids 3 - Constitutional General appearance: Present: no acute distress - Respiratory Respiratory: bilateral: CTA - Cardiovascular Rhythm: regular Heart sounds: normal: S1, S2 Abnormal Heart Sounds: Present: systolic murmur - Labs CBC & Chem 7: 06/16/22 12:28 06/16/22 12:28 Labs: Abnormal Lab Results - Last 24 Hours (Table) 06/17/22 06/17/22 06/17/22 Range/Units 06:20 17:00 19:52 POC Glucose (mg/dL) 321 H 409 H 315 H (70-110) mg/dL 06/18/22 Range/Units 06:15 POC Glucose (mg/dL) 209 H (70-110) mg/dL Assessment and Plan Assessment: Assessment Heart failure exacerbation secondary to heart failure with preserved ejection fraction with evidence of biventricular failure Hypertension crisis with hypertension emergency complicated by heart failure Status post transcutaneous aortic valve replacement Chronic evidence of myocardial injury was no evidence of ischemia Paroxysmal atrial fibrillation History of pulmonary embolic Coronary artery disease, nonobstructive Noncompliance with medications as well as diet Plan Overall the patient clinically is doing better Shortness of breath and lower extremities edema have improved Blood pressure has improved significantly as well. Her pressure now is consistent with stage I hypertension Continue the current medical regimen Possible discharge in the next 12-24 hours She was advised to be compliant with her medications as well as compliant with her diet Follow-up with the patient
[2022-06-18 06:40] LABS: Basophils % (A) 0 %; Eosinophils # (A) 0.4 k/uL (0-0.7); Eosinophils % (A) 5 %; HCT 32.9 % (34.0-46.0); HGB 10.2 gm/dL (11.4-16.0); Hypochromasia Marked; Lymphocytes # (A) 1.6 k/uL (1.0-4.8); Lymphocytes % (A) 17 %; MCH 27.3 pg (25.0-35.0); MCHC 31.1 g/dL (31.0-37.0); MCV 87.9 fL (80.0-100.0); Mean Platelet Volume 8.8; Monocytes % (A) 11 %; Neutrophils # (A) 5.8 k/uL (1.3-7.7); Neutrophils % (A) 65 %; Platelet Count 232 k/uL (150-450); RBC 3.74 m/uL (3.80-5.40); RDW 14.5 % (11.5-15.5)
[2022-06-18 06:53] LABS: Calcium 8.1 mg/dL (8.4-10.2)
[2022-06-18] MEDS: ISOSORBIDE MONONITRATE ER 60 MG TAB.ER.24H PO SCH (09:11)
[2022-06-18] MEDS: hydrALAZINE HCL 50 MG TAB PO SCH ×3 (09:11→20:31)
[2022-06-18] MEDS: CLOPIDOGREL 75 MG TAB PO SCH (09:12)
[2022-06-18] MEDS: FUROSEMIDE 10 MG/ML 4 ML VIAL IV SCH ×2 (09:12→20:31)
--- NOTE | 2022-06-18 09:18 | P.PN ---
Subjective Progress Note Date: 06/18/22 Principal diagnosis: Congestive heart failure. Pulmonary consult dated 06/16/2022. 81 -year-old female who presents to the emergency department on June 15, at 1551, complaining about shortness of breath. She apparently was very short of breath, and felt to be in extremis. Her saturations were apparently in the 70s according to the EMS personnel. She apparently was placed on a nonrebreather mask but did not improve. Subsequent to that, she was placed on CPAP, and was doing a bit better. She was able to speak in full sentences. She apparently missed taking her blood pressure medication, and her blood pressure in the emergency department was 210/110. She was thought to have flash pulmonary edema. Consulted because of shortness of breath. She has a history of atrial fibrillation, angina, heart failure, COPD, CVA, diabetes, hyperlipidemia, hypertension, DJD, pneumonia, sleep apnea, and thyroid disease. We saw her, she was resting comfortably. She was on 4 L of oxygen. She uses 2 L at home. She was here in the hospital back in March 2022. She has a history of aortic stenosis, status post transcatheter aortic valve replacement. N-terminal pro BNP on admission was 3340. White count 12, hemoglobin 10, hematocrit 33.1, and platelet count 204,000. Sodium, potassium, chloride, and CO2 were all normal. BUN 34, creatinine 1.9. Troponin was 0.093. Chest x-ray was consistent with CHF. Progress note dated 06/17/2022. 81-year-old female seen yesterday in consultation. She is doing well. She is in room 363. When she came to the emergency room, she was very short of breath. She required BiPAP therapy, and diuretics. Currently, the patient is on 2 L of oxygen. She's not receiving any IV fluids. No new labs today other than a glucose of 321. Pro-calcitonin level was 0.16. Progress note dated 06/18/2022. 81-year-old female seen in consultation 2 days ago. The patient is seen today in room 363. She's doing much better. She's currently on 2 L of oxygen. Saturations are 97%. When she came to the emergency room, she was very very short of breath. She required BiPAP therapy, and diuretics. Feeling much better today. Labs today include a white count of 9, hemoglobin 10.2, hematocrit 32.9, with a platelet count of 232,000. Sodium 137, potassium 4, chlorides 96, CO2 35, anion gap 6, BUN 44, and creatinine 1.63. Calcium 8.1. Objective - Vital Signs Vital signs: Vital Signs Temp 98.0 F 06/17/22 16:00 Pulse 72 06/18/22 04:00 Resp 19 06/18/22 04:00 BP 153/82 06/18/22 04:00 Pulse Ox 97 06/18/22 04:00 FiO2 50 06/15/22 16:03 Intake & Output 06/17/22 06/18/22 06/18/22 18:59 06:59 18:59 Intake Total 237 90 Output Total 200 200 0 Balance -200 37 90 Weight 88.5 kg Intake: Oral 237 90 Output: Gastric Drainage 0 Urine 200 200 0 Stool 0 Urine/Stool Mix 0 Emesis 0 Oral Regurgitation 0 Other 0 Other: Voiding Method Bedside Commode Bedside Commode # Voids 3 0 # Bowel Movements 0 - Exam No acute distress, oriented 3. 2 L saturation is 97 %. HEENT examination is grossly unremarkable. Neck supple. Full range of motion. No adenopathy thyromegaly or neck vein distention. Cardiovascular examination reveals regular rhythm rate. S1-S2 normal. No S3 or S4. A soft systolic murmur is noted. Heart rate 72 bpm. Heart sounds are distant. Lungs reveal bibasilar crackles. No rhonchi. No wheezes. Breath sounds are diminished at the bases. Abdomen soft bowel sounds are heard. No masses or tenderness. Extremities are intact. No cyanosis or clubbing. Trace edema present. Skin is without rash or lesion. Neurologic examination is brief but nonfocal. - Labs CBC & Chem 7: 06/18/22 05:45 06/18/22 05:45 Labs: Abnormal Lab Results - Last 24 Hours (Table) 06/17/22 06/17/22 06/18/22 Range/Units 17:00 19:52 05:45 RBC 3.74 L (3.80-5.40) m/uL Hgb 10.2 L (11.4-16.0) gm/dL Hct 32.9 L (34.0-46.0) % Chloride (98-107) mmol/L Carbon Dioxide (22-30) mmol/L BUN (7-17) mg/dL Creatinine (0.52-1.04) mg/dL Glucose (74-99) mg/dL POC Glucose (mg/dL) 409 H 315 H (70-110) mg/dL Calcium (8.4-10.2) mg/dL 06/18/22 06/18/22 Range/Units 05:45 06:15 RBC (3.80-5.40) m/uL Hgb (11.4-16.0) gm/dL Hct (34.0-46.0) % Chloride 96 L (98-107) mmol/L Carbon Dioxide 35 H (22-30) mmol/L BUN 44 H (7-17) mg/dL Creatinine 1.63 H (0.52-1.04) mg/dL Glucose 193 H (74-99) mg/dL POC Glucose (mg/dL) 209 H (70-110) mg/dL Calcium 8.1 L (8.4-10.2) mg/dL Assessment and Plan Assessment: Acute hypoxemic respiratory failure secondary to CHF and flash pulmonary edema. History of aortic stenosis, status post transcatheter aortic valve replacement, March 2022. History of chronic atrial fibrillation. History of CVA. History of angina pectoris. History of diabetes. History of hyperlipidemia. History of hypertension. History of osteoarthritis. History of hypothyroidism. Stage III chronic kidney disease. Sleep apnea, maintained on CPAP. Multiple medical problems and comorbidities. Plan: Plan dated 06/16/2022. The patient appears to be doing much better. The patient was treated with diuretics. She's currently on 4 L nasal O2. Saturations are in the mid to high 90s. Labs, x-rays, and medications are reviewed. It's not clear to me that the patient has COPD. The patient is apparently a nonsmoker. Corticosteroids are not indicated. Breathing treatments would be of limited benefit. Additional recommendations and suggestions are forthcoming. We'll continue to follow make recommendations along the way. Plan dated 06/17/2022. The patient is doing much better. She's been weaned down to 2 L of oxygen. Initially, she was so bad, that she needed BiPAP. She is resting comfortably, without any chest pain or chest discomfort. The patient is not particularly short of breath. Labs, x-rays, and medications are reviewed. We'll continue to follow the patient and make recommendations along the way. Prognosis is guarded. Plan dated 06/18/2022. From the pulmonary standpoint, the patient's doing much better. She's down to 2 L. Her breathing is much improved. She is not complaining of any chest pain or shortness of breath. Labs, x-rays, and medications are reviewed. Prognosis is guarded. The patient is in the process of being evaluated for possible discharge. The patient is a DO NOT RESUSCITATE patient. We'll continue to follow make recommendations along the way. Time with Patient: Less than 30
[2022-06-18 11:33] LABS: Glucose,Whole Blood 256 mg/dL (70-110)
[2022-06-18 16:11] LABS: Glucose,Whole Blood 336 mg/dL (70-110)
--- NOTE | 2022-06-18 17:42 | P.PN ---
Subjective Progress Note Date: 06/18/22 Principal diagnosis: Acute exacerbation CHF with preserved EF Hypertensive emergency Elevated troponin; acute myocardial injury is ruled out Acute hypoxemic respiratory failure 81-year-old female, with history of hypertension, hyperlipidemia, diabetes me llitus, hypothyroidism, atrial fibrillation, COPD, CHF, presents to the emergency department. Patient felt to be hypoxic in the 70s by paramedics. She was placed on a nonrebreather but did not report improvement. She was placed on CPAP for transport. She is able to answer some simple questions. No fever. No chest pain. According to family she had been doing quite well this morning but had missed taking her blood pressure medication. Initial blood pressure upon arrival is 210/110. She is in severe respiratory distress. In the ED patient was found to be hypotensive and in flash pulmonary edema; chest x-ray revealed bilateral pulmonary edema and pleural effusions; lab review shows a WBC of 11.5, hemoglobin of 11.6 and platelet count of 307, sodium 139, potassium 5.1, BUN/creatinine of 26/1.2 and blood glucose of 374; troponin is mildly elevated at 0.320 EKG Findings:: EKG: Says bradycardia, low voltage, rate of 55, GA interval 146, QRS duration 116, QTC 477, no ST segment elevation 06/18/2022 Patient is seen and evaluated in room at bedside; reports marked weakness when ambulating to the bathroom Vital signs are reviewed and remained stable; lab review shows creatinine trending up to 1.6 this morning from 1.2 on admission; patient has been on diuretics for CHF exacerbation; we will consult nephrology Hyperglycemia is improving with addition of Levemir; we will continue to monitor Accu-Cheks every seen at bedtime and adjust therapy as needed Reports marked debility and PT/OT have been consulted for discharge planning Objective - Vital Signs Vital signs: Vital Signs Temp 98.0 F 06/17/22 16:00 Pulse 72 06/18/22 04:00 Resp 19 06/18/22 04:00 BP 153/82 06/18/22 04:00 Pulse Ox 97 06/18/22 04:00 FiO2 50 06/15/22 16:03 Intake & Output 06/17/22 06/18/22 06/18/22 18:59 06:59 18:59 Intake Total 237 90 Output Total 200 200 0 Balance -200 37 90 Weight 88.5 kg Intake: Oral 237 90 Output: Gastric Drainage 0 Urine 200 200 0 Stool 0 Urine/Stool Mix 0 Emesis 0 Oral Regurgitation 0 Other 0 Other: Voiding Method Bedside Commode Bedside Commode # Voids 3 0 # Bowel Movements 0 - Exam Head exam: Present: atraumatic, normocephalic Eye exam: Present: normal appearance, PERRL ENT exam: Present: mucous membranes dry Respiratory exam: Present: respiratory distress, rales, accessory muscle use, decreased breath sounds Cardiovascular Exam: Present: regular rate, normal rhythm, systolic murmur GI/Abdominal exam: Present: soft. Absent: distended, tenderness, guarding Extremities exam: Present: normal inspection. Absent: normal capillary refill, pedal edema Neurological exam: Present: alert. Absent: motor sensory deficit Psychiatric exam: Present: anxious Skin exam: Present: warm, dry, intact. Absent: cyanosis, diaphoretic - Labs CBC & Chem 7: 06/18/22 05:45 06/18/22 05:45 Labs: Abnormal Lab Results - Last 24 Hours (Table) 06/17/22 06/17/22 06/18/22 Range/Units 17:00 19:52 05:45 RBC 3.74 L (3.80-5.40) m/uL Hgb 10.2 L (11.4-16.0) gm/dL Hct 32.9 L (34.0-46.0) % Chloride (98-107) mmol/L Carbon Dioxide (22-30) mmol/L BUN (7-17) mg/dL Creatinine (0.52-1.04) mg/dL Glucose (74-99) mg/dL POC Glucose (mg/dL) 409 H 315 H (70-110) mg/dL Calcium (8.4-10.2) mg/dL 06/18/22 06/18/22 Range/Units 05:45 06:15 RBC (3.80-5.40) m/uL Hgb (11.4-16.0) gm/dL Hct (34.0-46.0) % Chloride 96 L (98-107) mmol/L Carbon Dioxide 35 H (22-30) mmol/L BUN 44 H (7-17) mg/dL Creatinine 1.63 H (0.52-1.04) mg/dL Glucose 193 H (74-99) mg/dL POC Glucose (mg/dL) 209 H (70-110) mg/dL Calcium 8.1 L (8.4-10.2) mg/dL Assessment and Plan Assessment: 1. Acute exacerbation CHF with preserved EF; patient has been placed on Lasix 40 mg IV every 12 hours; we will monitor strict FRANKLIN's, daily weights, low salt and fluid restricted diet - Cardiology on board and agreeable with plan of care 2. Hypertensive emergency; noncompliance with medication; cardiology recommending to restart patient on home medications along with hydralazine and continue to monitor blood pressure closely for further adjustment 3. Elevated troponin; chronic evidence of myocardial injury with no evidence of acute ischemia; repeat echocardiogram was not recommended given patient had recent echocardiogram completed 4. Acute hypoxemic respiratory failure related to flash pulmonary edema; patient did respond well to diuresis; currently maintaining O2 saturation above 92% on 4 L O2 per nasal cannula 5. Chronic atrial fibrillation; remains rate controlled on Coreg 25 mg twice a day; anticoagulated with Eliquis 5 mg twice a day 6. Diabetes mellitus; monitor Accu-Cheks before meals and at bedtime with insulin sliding scale 7. Hyperlipidemia; Lipitor 80 mg by mouth daily at bedtime 8. Hypothyroidism; levothyroxine 125 MCG daily 9. Chronic kidney disease stage III; stable at baseline 10. Sleep apnea; continue with home CPAP therapy
[2022-06-18 20:13] LABS: Glucose,Whole Blood 294 mg/dL (70-110)
[2022-06-18] MEDS: ATORVASTATIN 80 MG TAB PO SCH (20:31)
[2022-06-19] MEDS: carvediloL 12.5 MG TAB PO SCH ×2 (05:52→15:23)
[2022-06-19] MEDS: APIXABAN 2.5 MG TABLET PO SCH ×2 (05:52→15:23)
[2022-06-19] MEDS: LEVOTHYROXINE 125 MCG TAB PO SCH (05:52)
[2022-06-19 06:17] LABS: Glucose,Whole Blood 235 mg/dL (70-110)
[2022-06-19 06:21] LABS: Basophils % (A) 0 %; Eosinophils # (A) 0.4 k/uL (0-0.7); Eosinophils % (A) 6 %; HCT 33.4 % (34.0-46.0); HGB 10.4 gm/dL (11.4-16.0); Hypochromasia Marked; Lymphocytes # (A) 1.3 k/uL (1.0-4.8); Lymphocytes % (A) 18 %; MCH 27.4 pg (25.0-35.0); MCHC 31.2 g/dL (31.0-37.0); MCV 88.1 fL (80.0-100.0); Mean Platelet Volume 8.9; Monocytes # (A) 0.9 k/uL (0-1.0); Monocytes % (A) 12 %; Neutrophils # (A) 4.6 k/uL (1.3-7.7); Neutrophils % (A) 61 %; Platelet Count 188 k/uL (150-450); RDW 14.4 % (11.5-15.5); WBC 7.5 k/uL (3.8-10.6)
[2022-06-19] MEDS: INSULIN ASPART (NovoLOG) 100 UNIT/ML VIAL SQ SCH ×6 (06:33→20:35)
[2022-06-19] MEDS: INSULIN DETEMIR (LEVEMIR) 100 UNIT/ML SYR SQ SCH (06:33)
[2022-06-19 06:41] LABS: Calcium 7.9 mg/dL (8.4-10.2)
[2022-06-19 08:57] LABS: Glucose,Whole Blood 417 mg/dL (70-110)
[2022-06-19] MEDS: hydrALAZINE HCL 50 MG TAB PO SCH ×3 (09:06→19:45)
[2022-06-19] MEDS: FUROSEMIDE 10 MG/ML 4 ML VIAL IV SCH ×2 (09:06→19:45)
[2022-06-19] MEDS: CLOPIDOGREL 75 MG TAB PO SCH (09:06)
[2022-06-19] MEDS: ISOSORBIDE MONONITRATE ER 60 MG TAB.ER.24H PO SCH (09:06)
--- NOTE | 2022-06-19 09:42 | P.NPCON ---
History of Present Illness - Reason for Consult chronic renal failure - History of Present Illness Patient is an 81-year-old female with history of chronic kidney disease NKF stage IIIB with previous creatinine of about 1.5 mg/dL. Patient also has history of chronic A. fib, COPD, type 2 diabetes, hypertension. Patient is admitted to the hospital with complaints of shortness of breath and hypoxia. O2 sats were in the 70s. Blood pressure was also elevated at 210/110. Patient was placed on BiPAP is taken acute exacerbation of CHF. Patient has been diuresed and is feeling much better currently. Serum creatinine increased from 1.2-1.6 and it is down to 1.4 today. Previous creatinine has been mostly around 1.3-1.4 mg/dL with acute kidney injury and creatinine of 1.8 on 04/22/2022. This had improved and serum creatinine had come down to 1.3 on 05/01/2022 Patient has been voiding well. Currently maintained on Lasix 40 mg IV every 12 hours. Review of Systems As per HPI, other systems negative Past Medical History Past Medical History: Atrial Fibrillation, Cancer, Chest Pain / Angina, Heart Failure, COPD, CVA/TIA, Diabetes Mellitus, Hyperlipidemia, Hypertension, Osteoarthritis (OA), Pneumonia, Renal Disease, Sleep Apnea/CPAP/BIPAP, Syncope, Thyroid Disorder Additional Past Medical History / Comment(s): Severe aortic stenosis with a previous TAVR, nonocclusive coronary artery disease, diabetes mellitus type 2, paroxysmal atrial fibrillation, previous pulmonary embolism based on a intermediate probability VQ scan with a negative Dopplers, obstructive sleep apnea, chronic stage III kidney disease, hypertension, hyperlipidemia, previous history of CVA, previous history of compression fracture of T12 spine, chronic back pain, chronic anemia, hypothyroidism, vitamin D deficiency, skin cancer that has been resected, previous history of pneumonia with sepsis, previous history of right-sided pleural effusion requiring thoracentesis, previous history of CVA back in 2012 History of Any Multi-Drug Resistant Organisms: None Reported Past Surgical History: Adenoidectomy, Back Surgery, Bariatric Surgery, Cholecystectomy, Heart Catheterization, Hysterectomy, Tonsillectomy Additional Past Surgical History / Comment(s): 03/2022 TAVR, Cardiac caths , lap band placed/since removed, low back surgery, L carpal tunnel release X2, pain clinic procedures, skin cancer removal, colonoscopies, bilateral cataract removals/lens implants. Past Anesthesia/Blood Transfusion Reactions: Previous Problems w/ Anesthesia Additional Past Anesthesia/Blood Transfusion Reaction / Comment(s): "Had too much anesthesia in 2007 for lap band removal, had to be bagged." Smoking Status: Never smoker - Past Family History Sister(s) Family Medical History: Myocardial Infarction ([place]) Brother(s) Family Medical History: Cancer Additional Family Medical History / Comment(s): Colon Cancer. Mother Family Medical History: Dementia Additional Family Medical History / Comment(s): Mother of dementia at the age of 89yrs. Father Family Medical History: Cancer Additional Family Medical History / Comment(s): Pt states her father was treated for a sinus infection but really had leukemia and of this at the age of 72 yrs. Medications and Allergies Home Medications Medication Instructions Recorded Confirmed Type Atorvastatin [Lipitor] 80 mg PO HS 06/30/18 06/15/22 History Sertraline [Zoloft] 25 mg PO DAILY 08/30/21 06/15/22 History Artificial Tears-Hypromellose 1 drop BOTH EYES TID PRN 09/24/21 06/15/22 History [Artificial Tear Drops] Isosorbide Mononitrate ER [Imdur] 60 mg PO DAILY 09/24/21 06/15/22 History Levothyroxine Sodium [Synthroid] 125 mcg PO DAILY 12/01/21 06/15/22 History Magnesium Oxide [Mag-Ox] 400 mg PO DAILY 12/01/21 06/15/22 History Melatonin [Melatonin ER] 10 mg PO HS 12/01/21 06/15/22 History polyethylene glycoL 3350 [Miralax] 17 gm PO DAILY PRN 12/01/21 06/15/22 History Acetaminophen Tab [Tylenol] 650 mg PO Q4H PRN #60 tab 12/21/21 06/15/22 Rx Insuln Asp Prt/Insulin Aspart 20 unit SQ AC-SUPPER 30 Days #5 12/21/21 06/15/22 Rx [NovoLOG MIX 70-30 VIAL] each Ferrous Sulfate [Feosol] 325 mg PO DAILY 03/02/22 06/15/22 History Cholecalciferol [Vitamin D3 (25 25 mcg PO DAILY 04/04/22 06/15/22 History Mcg = 1000 Iu)] Furosemide [Lasix] 40 mg PO BID@0900,1600 04/04/22 06/15/22 History Omeprazole [PriLOSEC] 40 mg PO DAILY 04/04/22 06/15/22 History Potassium Chloride [Klor-Con M20] 20 meq PO DAILY 04/04/22 06/15/22 History Pioglitazone [Actos] 15 mg PO DAILY 04/05/22 06/15/22 History Albuterol Inhaler [Ventolin Hfa 2 puff INHALATION RT-Q6H PRN #1 04/14/22 06/15/22 Rx Inhaler] each Docusate [Colace] 100 mg PO DAILY 04/19/22 06/15/22 History Apixaban [Eliquis] 5 mg PO BID@0700,1600 tab 04/27/22 06/15/22 Rx carvediloL [Coreg*] 25 mg PO BID-W/MEALS 30 Days #120 04/27/22 06/15/22 Rx tab hydrALAZINE HCL [Apresoline] 50 mg PO BID #60 tab 04/27/22 06/15/22 Rx Insuln Asp Prt/Insulin Aspart 30 unit SQ AC-BRKFST 05/01/22 06/15/22 History [NovoLOG MIX 70-30 VIAL] Clopidogrel [Plavix] 75 mg PO DAILY #30 tablet 05/29/22 06/15/22 Rx Budesonide/Formoterol Fumarate 2 puff INHALATION RT-BID 06/15/22 06/15/22 History [Symbicort 160-4.5 Mcg Inhaler] Nystatin/Triamcin 1 applic TOPICAL TID 06/15/22 06/15/22 History [Nystatin-Triamcinolone Cream] busPIRone HCl [Buspar] 10 mg PO BID 06/15/22 06/15/22 History Allergies Allergy/AdvReac Type Severity Reaction Status Date / Time azithromycin Allergy Rash/Hives Verified 06/15/22 17:36 [From Zithromax Z-Jeanmarie] methylprednisolone Allergy Rash/Hives Verified 06/15/22 17:36 [From Medrol] sulfamethoxazole Allergy Rash/Hives Verified 06/15/22 17:36 [From Bactrim] trimethoprim [From Bactrim] Allergy Rash/Hives Verified 06/15/22 17:36 hydrochlorothiazide AdvReac Unknown Verified 06/15/22 17:36 hydrocodone AdvReac Hallucinati Verified 06/15/22 17:36 ons Physical Exam Vitals: Vital Signs Temp Pulse Resp BP Pulse Ox 06/19/22 08:00 98.1 F 51 L 18 158/70 99 06/19/22 04:00 57 L 18 152/72 97 06/18/22 23:44 51 L 18 130/62 100 06/18/22 20:00 98.2 F 54 L 19 161/78 100 06/18/22 19:12 96 06/18/22 16:00 97.2 F L 51 L 14 152/68 97 06/18/22 14:00 52 L 14 06/18/22 12:00 97.5 F L 52 L 14 140/60 96 Intake and Output 06/18/22 06/19/22 06/19/22 22:59 06:59 14:59 Output Total 800 Balance -800 Output: Urine 800 Other: Voiding Method Bedside Commode Bedside Commode # Voids 1 Weight 85.1 kg Awake, comfortable, not in any acute distress Examination of the heart S1 and S2 Examination of the lungs bilateral breath sounds are heard next and abdomen is soft nontender Examination of the lower extremities shows edema 1+ bilaterally [employer] TE[employer]ER exam grossly intact Results - Lab Results Most recent lab results Calcium 7.9 mg/dL (8.4-10.2) L 06/19/22 06:03 Magnesium 2.0 mg/dL (1.6-2.3) 06/15/22 16:02 06/19/22 06:03 06/19/22 06:03 Assessment and Plan Assessment: 1. Acute kidney injury, cardiorenal currently nonoliguric and improved 2. Chronic kidney disease NKF stage IIIB with previous creatinine 1.5-1.3 mg/dL etiology is nephrosclerosis 3. Recent acute kidney injury with serum creatinine up to 1.8 in April 2022 and improved with creatinine down to 1.34 days later 4. Acute on chronic diastolic CHF. Ejection fraction 50-55% with moderately i ncreased left ventricular wall thickness 5. hypertension with CK D stage III 6. Chronic A. fib maintained on eliquis Plan: Continue current dose of IV Lasix Repeat labs in a.m. Avoid nephrotoxic agents Avoid hypotension. Expect improvement in blood pressure with diuresis. Thank you for the consultation. We'll continue to follow the patient with you during her hospitalization
--- NOTE | 2022-06-19 11:12 | P.PN ---
Subjective Progress Note Date: 06/19/22 HISTORY OF PRESENT ILLNESS: Hypertension emergency The patient is a pleasant 81-year-old female patient with a past medical history significant for valvular heart disease with known severe aortic stenosis status post transcutaneous aortic valve replacement was performed in 2021, heart failure with preserved ejection fraction, mild nonobstructive coronary artery disease based on recent heart catheterization, hypertension, dyslipidemia, paroxysmal atrial fibrillation, as well as history of pulmonary involving us in. We requested to see the patient as a consult here for further evaluation off heart failure. Patient has multiple hospital admissions with congestive heart failure. She was in her usual state of health until about 3 days ago when she started experiencing progressive exertional dyspnea with no associated lower extremities edema and no associated chest pain or chest discomfort and no dizziness or lightheadedness and no feeling of heart racing or fluttering or presyncope or syncope. No symptoms of fever or chills and no cough or sputum production. Her daughter brought her to the emergency department for further investigation. She underwent a chest x-ray which showed finding consistent with heart failure. She underwent an EKG which showed sinus rhythm. Her troponin is a slightly elevated but she is normal at 24. She also underwent and the proBNP which came in to be 4000. Beside that when she presented to the emergency department she was found to be hypertensive and initially she was started on nitro drip. The patient stated that she has been compliant with her medications except the hydralazine. She has not taken it. She also stated that she has been eating food through an agency and clearly the foot is not helping and has high sodium. The most recent echo from 2021 revealed normal left ventricular systolic function with normally functioning transcatheter valve. The patient was seen and examined this morning clearly she is in heart failure with crackles bilaterally and mild bilateral lower extremities edema noted also examination. Currently also she is hypoxic requiring 2 L of oxygen to maintain saturation above 90 June [id number] The patient was seen this morning. Overall she seems to be better. She is on Lasix IV and she has been diuresing very well. Currently she is on 2 L oxygen. On examination she seems to be euvolemic with diminished breathing sounds bilaterally. The pressure continues to be elevated. I'm going to increase the dose of hydralazine 200 mg by mouth 3 times a day. Continue monitor the pressure and adjust her medications or add medications 2. Meanwhile I would advise continue IV Lasix for at least additional 24 hours. We'll continue following up with the patient June [id number] The patient was seen and examined this morning. She is doing better overall. Shortness of breath has improved significantly and she has clear breathing sounds bilaterally. The lower extremity edema has improved significantly as well as. The blood pressure also has improved significantly. Her saturation has been normal without oxygen. From the cardiac standpoint of view, we will continue the current medical regimen with possible discharge in the next 12-24 hours. She was advised to be compliant with her medications as well as with her low-sodium diet. 06/19/2022 Patient examined this morning at the bedside. Patient denies chest pain or pressure. Denies SOB. Telemetry reveals sinus mechanism with a heart rate in the 50s. Blood pressure in the 150s. She remains on IV lasix. She does not appear to be volume overloaded, however, she continues to report SOB with minimal exertion. Creatinine today 1.4, down from 1.6. PHYSICAL EXAM: VITAL SIGNS: Reviewed. GENERAL: Well-developed in no acute distress. NECK: Supple. No JVD or thyromegaly LUNGS: Respirations even and unlabored. Lungs essentially clear to auscultation bilaterally. HEART: Regular rate and rhythm. S1 and S2 heard. + systolic murmur. EXTREMITIES: Normal range of motion. No clubbing or cyanosis. Peripheral pulses intact. No lower extremity edema ASSESSMENT: Shortness of breath Acute on chronic heart failure with preserved ejection fraction Hypertensive emergency Acute on chronic kidney disease History of TAVR Abnormal troponins, not suggestive of ACS Nonobstructive coronary artery disease History of pulmonary embolism History of medication noncompliance History of noncompliance with diet PLAN: Continue IV Lasix Daily weights, accurate I&O, monitoring of kidney function Monitor blood pressure Continue additional cardiac medications Patient to follow up outpatient with Dr. Hernandez Further recommendations pending patient course Nurse practitioner note has been reviewed by physician. Signing provider agrees with the documented findings, assessment, and plan of care. Objective - Vital Signs Vital signs: Vital Signs Temp 98.1 F 06/19/22 08:00 Pulse 51 L 06/19/22 08:00 Resp 18 06/19/22 08:00 BP 158/70 06/19/22 08:00 Pulse Ox 99 06/19/22 08:00 FiO2 50 06/15/22 16:03 Intake & Output 06/18/22 06/19/22 06/19/22 18:59 06:59 18:59 Intake Total 90 Output Total 0 800 200 Balance 90 -800 -200 Weight 85.1 kg Intake: Oral 90 Output: Gastric Drainage 0 Urine 0 800 200 Stool 0 Urine/Stool Mix 0 Emesis 0 Oral Regurgitation 0 Other 0 Other: Voiding Method Bedside Commode Bedside Commode # Voids 1 1 # Bowel Movements 0 - Labs CBC & Chem 7: 06/19/22 06:03 06/19/22 06:03 Labs: Abnormal Lab Results - Last 24 Hours (Table) 06/17/22 06/18/22 06/18/22 Range/Units 11:46 11:32 16:10 Hgb (11.4-16.0) gm/dL Hct (34.0-46.0) % Sodium (137-145) mmol/L Chloride (98-107) mmol/L Carbon Dioxide (22-30) mmol/L BUN (7-17) mg/dL Creatinine (0.52-1.04) mg/dL Glucose (74-99) mg/dL POC Glucose (mg/dL) 417 H 256 H 336 H (70-110) mg/dL Calcium (8.4-10.2) mg/dL 06/18/22 06/19/22 06/19/22 Range/Units 20:12 06:03 06:03 Hgb 10.4 L (11.4-16.0) gm/dL Hct 33.4 L (34.0-46.0) % Sodium 136 L (137-145) mmol/L Chloride 96 L (98-107) mmol/L Carbon Dioxide 36 H (22-30) mmol/L BUN 44 H (7-17) mg/dL Creatinine 1.49 H (0.52-1.04) mg/dL Glucose 247 H (74-99) mg/dL POC Glucose (mg/dL) 294 H (70-110) mg/dL Calcium 7.9 L (8.4-10.2) mg/dL 06/19/22 Range/Units 06:16 Hgb (11.4-16.0) gm/dL Hct (34.0-46.0) % Sodium (137-145) mmol/L Chloride (98-107) mmol/L Carbon Dioxide (22-30) mmol/L BUN (7-17) mg/dL Creatinine (0.52-1.04) mg/dL Glucose (74-99) mg/dL POC Glucose (mg/dL) 235 H (70-110) mg/dL Calcium (8.4-10.2) mg/dL
[2022-06-19 11:23] LABS: Glucose,Whole Blood 443 mg/dL (70-110)
--- NOTE | 2022-06-19 11:26 | P.PN ---
Subjective Progress Note Date: 06/19/22 81 -year-old female who presents to the emergency department on June 15, at 1551, complaining about shortness of breath. On 06/19/2022 the patient feels that she is back to her normal self and baselin e. She is currently on 2 L O2 nasal cannula and this is what she uses at home as the patient has been diagnosed having COPD due to extensive secondhand smoke exposure. The patient remains on Lasix 40 mg every 12 hours. The patient is also on Coreg 25 mg twice a day and hydralazine 100 mg 3 times a day. She is also on interview or 60 mg by mouth daily. She remains on Lipitor, Plavix and she is on long-term anticoagulation with Eliquis. She is taking 2.5 mg twice a day. The white cell count is at 7.5 with a hemoglobin of 10.4, BUN is 44 with a creatinine of 1.4 and his sodium level is at 136. She is known to have history of aortic stenosis that she has undergone a transcatheter aortic valve replacement and the patient is also known to have COPD, CVA, diabetes, hyperlipidemia, hypertension, hypothyroidism and osteoarthritis. She has also history of atrial fibrillation for that reason she has been maintained on anticoagulation. Objective - Vital Signs Vital signs: Vital Signs Temp 98.1 F 06/19/22 08:00 Pulse 51 L 06/19/22 08:00 Resp 18 06/19/22 08:00 BP 158/70 06/19/22 08:00 Pulse Ox 99 06/19/22 08:00 FiO2 50 06/15/22 16:03 Intake & Output 06/18/22 06/19/22 06/19/22 18:59 06:59 18:59 Intake Total 90 Output Total 0 800 200 Balance 90 -800 -200 Weight 85.1 kg Intake: Oral 90 Output: Gastric Drainage 0 Urine 0 800 200 Stool 0 Urine/Stool Mix 0 Emesis 0 Oral Regurgitation 0 Other 0 Other: Voiding Method Bedside Commode Bedside Commode # Voids 1 1 # Bowel Movements 0 - Exam No acute distress, oriented 3. 2 L saturation is 97 %. HEENT examination is grossly unremarkable. Neck supple. Full range of motion. No adenopathy thyromegaly or neck vein distention. Cardiovascular examination reveals regular rhythm rate. S1-S2 normal. No S3 or S4. A soft systolic murmur is noted. Lungs reveal bibasilar crackles. No rhonchi. No wheezes. Breath sounds are diminished at the bases. Abdomen soft bowel sounds are heard. No masses or tenderness. Extremities are intact. No cyanosis or clubbing. Trace edema present. Skin is without rash or lesion. Neurologic examination is brief but nonfocal. - Labs CBC & Chem 7: 06/19/22 06:03 06/19/22 06:03 Labs: Abnormal Lab Results - Last 24 Hours (Table) 06/17/22 06/18/22 06/18/22 Range/Units 11:46 11:32 16:10 Hgb (11.4-16.0) gm/dL Hct (34.0-46.0) % Sodium (137-145) mmol/L Chloride (98-107) mmol/L Carbon Dioxide (22-30) mmol/L BUN (7-17) mg/dL Creatinine (0.52-1.04) mg/dL Glucose (74-99) mg/dL POC Glucose (mg/dL) 417 H 256 H 336 H (70-110) mg/dL Calcium (8.4-10.2) mg/dL 06/18/22 06/19/22 06/19/22 Range/Units 20:12 06:03 06:03 Hgb 10.4 L (11.4-16.0) gm/dL Hct 33.4 L (34.0-46.0) % Sodium 136 L (137-145) mmol/L Chloride 96 L (98-107) mmol/L Carbon Dioxide 36 H (22-30) mmol/L BUN 44 H (7-17) mg/dL Creatinine 1.49 H (0.52-1.04) mg/dL Glucose 247 H (74-99) mg/dL POC Glucose (mg/dL) 294 H (70-110) mg/dL Calcium 7.9 L (8.4-10.2) mg/dL 06/19/22 Range/Units 06:16 Hgb (11.4-16.0) gm/dL Hct (34.0-46.0) % Sodium (137-145) mmol/L Chloride (98-107) mmol/L Carbon Dioxide (22-30) mmol/L BUN (7-17) mg/dL Creatinine (0.52-1.04) mg/dL Glucose (74-99) mg/dL POC Glucose (mg/dL) 235 H (70-110) mg/dL Calcium (8.4-10.2) mg/dL Assessment and Plan Plan: Acute hypoxemic respiratory failure secondary to CHF and flash pulmonary edema. Recovered and the patient is currently on 2 L of O2 nasal cannula which is what she uses at home. History of aortic stenosis, status post transcatheter aortic valve replacement, March 2022. History of chronic atrial fibrillation. History of CVA. History of angina pectoris. History of diabetes. History of hyperlipidemia. History of hypertension. History of osteoarthritis. History of hypothyroidism. Stage III chronic kidney disease. Sleep apnea, maintained on CPAP. Multiple medical problems and comorbidities. Plan: The patient is improved Continue IV Lasix for another 24 hours is with this patient to oral of Lasix as of tomorrow Monitor electrolytes and blood pressure Continue anticoagulation with Eliquis Oxygen is at 2 L/m nasal cannula Clinically improved and most likely the pulmonary edema is also improved. We'll repeat a chest x-ray in a.m.
--- NOTE | 2022-06-19 11:49 | P.PN ---
Subjective 81-year-old female, with history of hypertension, hyperlipidemia, diabetes mellitus, hypothyroidism, atrial fibrillation, COPD, CHF, presents to the emergency department. Patient felt to be hypoxic in the 70s by paramedics. She was placed on a nonrebreather but did not report improvement. She was placed on CPAP for transport. She is able to answer some simple questions. No fever. No chest pain. According to family she had been doing quite well this morning but had missed taking her blood pressure medication. Initial blood pressure upon arrival is 210/110. She is in severe respiratory distress. In the ED patient was found to be hypotensive and in flash pulmonary edema; chest x-ray revealed bilateral pulmonary edema and pleural effusions; lab review shows a WBC of 11.5, hemoglobin of 11.6 and platelet count of 307, sodium 139, potassium 5.1, BUN/creatinine of 26/1.2 and blood glucose of 374; troponin is mildly elevated at 0.320 EKG Findings:: EKG: Says bradycardia, low voltage, rate of 55, ID interval 146, QRS duration 116, QTC 477, no ST segment elevation 06/18/2022 Patient is seen and evaluated in room at bedside; reports marked weakness when ambulating to the bathroom Vital signs are reviewed and remained stable; lab review shows creatinine trending up to 1.6 this morning from 1.2 on admission; patient has been on d iuretics for CHF exacerbation; we will consult nephrology Hyperglycemia is improving with addition of Levemir; we will continue to monitor Accu-Cheks every seen at bedtime and adjust therapy as needed Reports marked debility and PT/OT have been consulted for discharge planning 06/19/2021 Patient dyspnea is improving, no large basilar crepitations. Patient is still mildly fluid overloaded and continue with IV Lasix. This Creatinine is 1.49, patient with evidence of chronic kidney disease stage III and baseline 1.2-1.7. Glucose is 235-443. Increase Levemir 20 units at NovoLog 7 units with meals Check labs in the morning. Objective - Vital Signs Vital signs: Vital Signs Temp 98.1 F 06/19/22 08:00 Pulse 51 L 06/19/22 08:00 Resp 18 06/19/22 08:00 BP 158/70 06/19/22 08:00 Pulse Ox 99 06/19/22 08:00 FiO2 50 06/15/22 16:03 Intake & Output 06/18/22 06/19/22 06/19/22 18:59 06:59 18:59 Intake Total 90 Output Total 0 800 200 Balance 90 -800 -200 Weight 85.1 kg Intake: Oral 90 Output: Gastric Drainage 0 Urine 0 800 200 Stool 0 Urine/Stool Mix 0 Emesis 0 Oral Regurgitation 0 Other 0 Other: Voiding Method Bedside Commode Bedside Commode # Voids 1 1 # Bowel Movements 0 - Exam GENERAL: The patient is alert and oriented x3, not in any acute distress. Well developed, well nourished. HEENT: Pupils are round and equally reacting to light. EOMI. No scleral icterus. No conjunctival pallor. Normocephalic, atraumatic. No pharyngeal erythema. No thyromegaly. CARDIOVASCULAR: S1 and S2 present. No murmurs, rubs, or gallops. PULMONARY: Chest is clear to auscultation, no wheezing or crackles. ABDOMEN: Soft, nontender, nondistended, normoactive bowel sounds. No palpable organomegaly. MUSCULOSKELETAL: No joint swelling or deformity. EXTREMITIES: No cyanosis, clubbing, or pedal edema. NEUROLOGICAL: Gross neurological examination did not reveal any focal deficits. SKIN: No rashes. no petechiae. - Labs CBC & Chem 7: 06/19/22 06:03 06/19/22 06:03 Labs: Abnormal Lab Results - Last 24 Hours (Table) 06/17/22 06/18/22 06/18/22 Range/Units 11:46 11:32 16:10 Hgb (11.4-16.0) gm/dL Hct (34.0-46.0) % Sodium (137-145) mmol/L Chloride (98-107) mmol/L Carbon Dioxide (22-30) mmol/L BUN (7-17) mg/dL Creatinine (0.52-1.04) mg/dL Glucose (74-99) mg/dL POC Glucose (mg/dL) 417 H 256 H 336 H (70-110) mg/dL Calcium (8.4-10.2) mg/dL 06/18/22 06/19/22 06/19/22 Range/Units 20:12 06:03 06:03 Hgb 10.4 L (11.4-16.0) gm/dL Hct 33.4 L (34.0-46.0) % Sodium 136 L (137-145) mmol/L Chloride 96 L (98-107) mmol/L Carbon Dioxide 36 H (22-30) mmol/L BUN 44 H (7-17) mg/dL Creatinine 1.49 H (0.52-1.04) mg/dL Glucose 247 H (74-99) mg/dL POC Glucose (mg/dL) 294 H (70-110) mg/dL Calcium 7.9 L (8.4-10.2) mg/dL 06/19/22 Range/Units 06:16 Hgb (11.4-16.0) gm/dL Hct (34.0-46.0) % Sodium (137-145) mmol/L Chloride (98-107) mmol/L Carbon Dioxide (22-30) mmol/L BUN (7-17) mg/dL Creatinine (0.52-1.04) mg/dL Glucose (74-99) mg/dL POC Glucose (mg/dL) 235 H (70-110) mg/dL Calcium (8.4-10.2) mg/dL Assessment and Plan Assessment: 1. Acute exacerbation CHF with preserved EF; patient has been placed on Lasix 40 mg IV every 12 hours; we will monitor strict FRANKLIN's, daily weights, low salt and fluid restricted diet - Cardiology and pulmonary on board and agreeable with plan of care 2. Hypertensive emergency; noncompliance with medication; cardiology recommending to restart patient on home medications along with hydralazine 100 mg 3 times a day and continue to monitor blood pressure closely for further adjustment 3. Elevated troponin; chronic evidence of myocardial injury with no evidence of acute ischemia; repeat echocardiogram was not recommended given patient had recent echocardiogram completed 4. Acute hypoxemic respiratory failure related to flash pulmonary edema; patient did respond well to diuresis; currently maintaining O2 saturation above 92% on 4 L O2 per nasal cannula 5. Chronic atrial fibrillation; remains rate controlled on Coreg 25 mg twice a day; anticoagulated with Eliquis 5 mg twice a day 6. Diabetes mellitus; monitor Accu-Cheks before meals and at bedtime with insulin sliding scale 7. Hyperlipidemia; Lipitor 80 mg by mouth daily at bedtime 8. Hypothyroidism; levothyroxine 125 MCG daily 9. Chronic kidney disease stage III; stable at baseline 10. Sleep apnea; continue with home CPAP therapy
[2022-06-19] MEDS: ACETAMINOPHEN TAB 325 MG TAB PO PRN (11:54)
[2022-06-19] MEDS ORDERED: INSULIN ASPART (NovoLOG) 100 UNIT/ML VIAL SQ SCH (12:30)
[2022-06-19] MEDS ORDERED: polyethylene glycoL 3350 17 GM POWD.PACK PO STA (15:29)
[2022-06-19 16:39] LABS: Glucose,Whole Blood 190 mg/dL (70-110)
[2022-06-19] MEDS: ATORVASTATIN 80 MG TAB PO SCH (19:45)
[2022-06-19 20:36] LABS: Glucose,Whole Blood 223 mg/dL (70-110)
[2022-06-20] MEDS: ACETAMINOPHEN TAB 325 MG TAB PO PRN ×3 (01:53→23:13)
[2022-06-20] MEDS: APIXABAN 2.5 MG TABLET PO SCH ×2 (05:51→16:51)
[2022-06-20] MEDS: carvediloL 12.5 MG TAB PO SCH ×2 (05:51→16:51)
[2022-06-20] MEDS: LEVOTHYROXINE 125 MCG TAB PO SCH (05:51)
[2022-06-20 06:33] LABS: Glucose,Whole Blood 223 mg/dL (70-110)
[2022-06-20] MEDS: INSULIN ASPART (NovoLOG) 100 UNIT/ML VIAL SQ SCH ×7 (06:37→20:34)
[2022-06-20] MEDS ORDERED: INSULIN DETEMIR (LEVEMIR) 100 UNIT/ML SYR SQ SCH (07:00)
--- NOTE | 2022-06-20 08:43 | XR ---
EXAMINATION TYPE: XR chest 1V DATE OF EXAM: 06/20/2022 COMPARISON: 06/15/2020 HISTORY: Shortness of breath TECHNIQUE: Single frontal view of the chest is obtained. FINDINGS: Heart is enlarged and is evidence of previous surgery. Atherosclerotic change aorta. Impro ving consolidation and pleural effusion on the left stable changes on the right. Underlying COPD susp ected. No overt failure. IMPRESSION: 1. Right lower lobe infiltrate and small effusion. 2. Interval improvement of left lower lobe infiltrate pleural effusion.
[2022-06-20] MEDS: CLOPIDOGREL 75 MG TAB PO SCH (08:52)
[2022-06-20] MEDS: hydrALAZINE HCL 50 MG TAB PO SCH ×3 (08:52→20:33)
[2022-06-20] MEDS: FUROSEMIDE 10 MG/ML 4 ML VIAL IV SCH (08:53)
[2022-06-20] MEDS: ISOSORBIDE MONONITRATE ER 60 MG TAB.ER.24H PO SCH (08:53)
[2022-06-20 11:17] LABS: Calcium 7.8 mg/dL (8.4-10.2)
[2022-06-20 11:34] LABS: Glucose,Whole Blood 239 mg/dL (70-110)
--- NOTE | 2022-06-20 12:11 | P.PN ---
Subjective Patient is seen for follow-up for acute kidney injury on top of chronic kidney disease. Patient is admitted with volume overload. She has been diuresed. Overall feeling better Serum creatinine staying at 1.4-1.6 mg/dL now. Switched to oral diuretics. Objective - Vital Signs Vital signs: Vital Signs Temp 97.7 F 06/20/22 08:00 Pulse 43 L 06/20/22 11:00 Resp 18 06/20/22 11:00 BP 159/54 06/20/22 11:00 Pulse Ox 100 06/20/22 11:00 FiO2 50 06/15/22 16:03 Intake & Output 06/19/22 06/20/22 06/20/22 18:59 06:59 18:59 Intake Total 180 Output Total 200 400 Balance -200 -400 180 Weight 84 kg Intake: Oral 180 Output: Urine 200 400 Other: Voiding Method Bedside Commode Bedside Commode - Exam Patient is comfortable awake not in any acute distress Examination of the heart S1 and S2 Examination of the lungs bilateral breath sounds are heard Abdomen is soft nontender Examination of lower extremities shows no evidence of edema 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 grossly intact - Labs CBC & Chem 7: 06/19/22 06:03 06/20/22 10:05 Labs: Abnormal Lab Results - Last 24 Hours (Table) 06/19/22 06/19/22 06/20/22 Range/Units 16:36 20:35 06:32 Chloride (98-107) mmol/L Carbon Dioxide (22-30) mmol/L BUN (7-17) mg/dL Creatinine (0.52-1.04) mg/dL Glucose (74-99) mg/dL POC Glucose (mg/dL) 190 H 223 H 223 H (70-110) mg/dL Calcium (8.4-10.2) mg/dL 06/20/22 06/20/22 Range/Units 10:05 11:33 Chloride 92 L (98-107) mmol/L Carbon Dioxide 38 H (22-30) mmol/L BUN 41 H (7-17) mg/dL Creatinine 1.59 H (0.52-1.04) mg/dL Glucose 214 H (74-99) mg/dL POC Glucose (mg/dL) 239 H (70-110) mg/dL Calcium 7.8 L (8.4-10.2) mg/dL Assessment and Plan Assessment: 1. Acute kidney injury, cardiorenal currently nonoliguric and improved 2. Chronic kidney disease NKF stage IIIB with previous creatinine 1.5-1.3 mg/dL etiology is nephrosclerosis 3. Recent acute kidney injury with serum creatinine up to 1.8 in April 2022 and improved with creatinine down to 1.34 days later 4. Acute on chronic diastolic CHF. Ejection fraction 50-55% with moderately increased left ventricular wall thickness 5. hypertension with CK D stage III 6. Chronic A. fib maintained on eliquis Plan: Continue oral diuretics Stable for discharge from nephrology standpoint Follow-up in the office in 1-2 weeks
--- NOTE | 2022-06-20 12:15 | P.PN ---
Subjective Progress Note Date: 06/20/22 81 -year-old female who presents to the emergency department on June 15, at 1551, complaining about shortness of breath. On 06/19/2022 the patient feels that she is back to her normal self and baselin e. She is currently on 2 L O2 nasal cannula and this is what she uses at home as the patient has been diagnosed having COPD due to extensive secondhand smoke exposure. The patient remains on Lasix 40 mg every 12 hours. The patient is also on Coreg 25 mg twice a day and hydralazine 100 mg 3 times a day. She is also on interview or 60 mg by mouth daily. She remains on Lipitor, Plavix and she is on long-term anticoagulation with Eliquis. She is taking 2.5 mg twice a day. The white cell count is at 7.5 with a hemoglobin of 10.4, BUN is 44 with a creatinine of 1.4 and his sodium level is at 136. She is known to have history of aortic stenosis that she has undergone a transcatheter aortic valve replacement and the patient is also known to have COPD, CVA, diabetes, hyperlipidemia, hypertension, hypothyroidism and osteoarthritis. She has also history of atrial fibrillation for that reason she has been maintained on anticoagulation. On 06/20/2022, the patient is on 2 L oxygen. Feeling better. Less short of breath. Switched to oral Lasix. The chest x-ray was repeated today and the findings were consistent with cardiomegaly. There is improvement with elevation and there is some persistent small right-sided pleural effusion. BUN is at 41 with a creatinine of 1.59 which is stable and a sodium level is at 137. No chest pain. No cough or sputum production. Remains on Plavix. Remains on Lipitor. Remains on an anticoagulation with Eliquis 2.5 mg twice a day. Objective - Vital Signs Vital signs: Vital Signs Temp 97.7 F 06/20/22 08:00 Pulse 43 L 06/20/22 11:00 Resp 18 06/20/22 11:00 BP 159/54 06/20/22 11:00 Pulse Ox 100 06/20/22 11:00 FiO2 50 06/15/22 16:03 Intake & Output 06/19/22 06/20/22 06/20/22 18:59 06:59 18:59 Intake Total 180 Output Total 200 400 Balance -200 -400 180 Weight 84 kg Intake: Oral 180 Output: Urine 200 400 Other: Voiding Method Bedside Commode Bedside Commode - Exam No acute distress, oriented 3. 2 L saturation is 97 %. HEENT examination is grossly unremarkable. Neck supple. Full range of motion. No adenopathy thyromegaly or neck vein distention. Cardiovascular examination reveals regular rhythm rate. S1-S2 normal. No S3 or S4. A soft systolic murmur is noted. Lungs reveal bibasilar crackles. No rhonchi. No wheezes. Breath sounds are diminished at the bases. Abdomen soft bowel sounds are heard. No masses or tenderness. Extremities are intact. No cyanosis or clubbing. Trace edema present. Skin is without rash or lesion. Neurologic examination is brief but nonfocal. - Labs CBC & Chem 7: 06/19/22 06:03 06/20/22 10:05 Labs: Abnormal Lab Results - Last 24 Hours (Table) 06/19/22 06/19/22 06/20/22 Range/Units 16:36 20:35 06:32 Chloride (98-107) mmol/L Carbon Dioxide (22-30) mmol/L BUN (7-17) mg/dL Creatinine (0.52-1.04) mg/dL Glucose (74-99) mg/dL POC Glucose (mg/dL) 190 H 223 H 223 H (70-110) mg/dL Calcium (8.4-10.2) mg/dL 06/20/22 06/20/22 Range/Units 10:05 11:33 Chloride 92 L (98-107) mmol/L Carbon Dioxide 38 H (22-30) mmol/L BUN 41 H (7-17) mg/dL Creatinine 1.59 H (0.52-1.04) mg/dL Glucose 214 H (74-99) mg/dL POC Glucose (mg/dL) 239 H (70-110) mg/dL Calcium 7.8 L (8.4-10.2) mg/dL Assessment and Plan Plan: Acute hypoxemic respiratory failure secondary to CHF and flash pulmonary edema. Recovered and the patient is currently on 2 L of O2 nasal cannula which is what she uses at home. History of aortic stenosis, status post transcatheter aortic valve replacement, March 2022. History of chronic atrial fibrillation. History of CVA. History of angina pectoris. History of diabetes. History of hyperlipidemia. History of hypertension. History of osteoarthritis. History of hypothyroidism. Stage III chronic kidney disease. Sleep apnea, maintained on CPAP. Multiple medical problems and comorbidities. Plan: The patient is clinically improving of the chest x-rays also improving change Lasix to 40 mg by mouth twice a day Monitor electrolytes and blood pressure Continue anticoagulation with Eliquis Oxygen is at 2 L/m nasal cannula Clinically improved and most likely the pulmonary edema is also improved. there is some residual small right-sided pleural effusion. She needs to cut down on the salt and Fluid Intake. Possible Home Today.
--- NOTE | 2022-06-20 13:19 | P.PN ---
Subjective Progress Note Date: 06/20/22 HISTORY OF PRESENT ILLNESS: Hypertension emergency The patient is a pleasant 81-year-old female patient with a past medical history significant for valvular heart disease with known severe aortic stenosis status post transcutaneous aortic valve replacement was performed in 2021, heart failure with preserved ejection fraction, mild nonobstructive coronary artery disease based on recent heart catheterization, hypertension, dyslipidemia, paroxysmal atrial fibrillation, as well as history of pulmonary involving us in. We requested to see the patient as a consult here for further evaluation off heart failure. Patient has multiple hospital admissions with congestive heart failure. She was in her usual state of health until about 3 days ago when she started experiencing progressive exertional dyspnea with no associated lower extremities edema and no associated chest pain or chest discomfort and no dizziness or lightheadedness and no feeling of heart racing or fluttering or presyncope or syncope. No symptoms of fever or chills and no cough or sputum production. Her daughter brought her to the emergency department for further investigation. She underwent a chest x-ray which showed finding consistent with heart failure. She underwent an EKG which showed sinus rhythm. Her troponin is a slightly elevated but she is normal at 24. She also underwent and the proBNP which came in to be 4000. Beside that when she presented to the emergency department she was found to be hypertensive and initially she was started on nitro drip. The patient stated that she has been compliant with her medications except the hydralazine. She has not taken it. She also stated that she has been eating food through an agency and clearly the foot is not helping and has high sodium. The most recent echo from 2021 revealed normal left ventricular systolic function with normally functioning transcatheter valve. The patient was seen and examined this morning clearly she is in heart failure with crackles bilaterally and mild bilateral lower extremities edema noted also examination. Currently also she is hypoxic requiring 2 L of oxygen to maintain saturation above 90 June 172021 The patient was seen this morning. Overall she seems to be better. She is on Lasix IV and she has been diuresing very well. Currently she is on 2 L oxygen. On examination she seems to be euvolemic with diminished breathing sounds bilaterally. The pressure continues to be elevated. I'm going to increase the dose of hydralazine 200 mg by mouth 3 times a day. Continue monitor the pressure and adjust her medications or add medications 2. Meanwhile I would advise continue IV Lasix for at least additional 24 hours. We'll continue following up with the patient June 182021 The patient was seen and examined this morning. She is doing better overall. Shortness of breath has improved significantly and she has clear breathing sounds bilaterally. The lower extremity edema has improved significantly as well as. The blood pressure also has improved significantly. Her saturation has been normal without oxygen. From the cardiac standpoint of view, we will continue the current medical regimen with possible discharge in the next 12-24 hours. She was advised to be compliant with her medications as well as with her low-sodium diet. 06/19/2022 Patient examined this morning at the bedside. Patient denies chest pain or pressure. Denies SOB. Telemetry reveals sinus mechanism with a heart rate in the 50s. Blood pressure in the 150s. She remains on IV lasix. She does not appear to be volume overloaded, however, she continues to report SOB with minimal exertion. Creatinine today 1.4, down from 1.6. 06/20/2022 Patient examined this morning at the bedside. Patient denies chest pain or pressure. Denies SOB. Patient remains on IV lasix. Vital signs are stable. PHYSICAL EXAM: VITAL SIGNS: Reviewed. GENERAL: Well-developed in no acute distress. NECK: Supple. No JVD or thyromegaly LUNGS: Respirations even and unlabored. Lungs diminished at the bases. HEART: Regular rate and rhythm. S1 and S2 heard. + systolic murmur. EXTREMITIES: Normal range of motion. No clubbing or cyanosis. Peripheral pulses intact. No lower extremity edema ASSESSMENT: Shortness of breath Acute on chronic heart failure with preserved ejection fraction Hypertensive emergency Acute on chronic kidney disease History of TAVR Abnormal troponins, not suggestive of ACS Nonobstructive coronary artery disease History of pulmonary embolism History of medication noncompliance History of noncompliance with diet PLAN: Discontinue IV lasix. Begin oral lasix 40mg BID Continue additional cardiac medications Reinforced cardiac diet with patient Patient to follow up outpatient with Dr. Hernandez Further recommendations pending patient course Nurse practitioner note has been reviewed by physician. Signing provider agrees with the documented findings, assessment, and plan of care. Objective - Vital Signs Vital signs: Vital Signs Temp 97.7 F 06/20/22 08:00 Pulse 43 L 06/20/22 11:00 Resp 18 06/20/22 11:00 BP 159/54 06/20/22 11:00 Pulse Ox 100 06/20/22 11:00 FiO2 50 06/15/22 16:03 Intake & Output 06/19/22 06/20/22 06/20/22 18:59 06:59 18:59 Intake Total 180 Output Total 200 400 Balance -200 -400 180 Weight 84 kg Intake: Oral 180 Output: Urine 200 400 Other: Voiding Method Bedside Commode Bedside Commode - Labs CBC & Chem 7: 06/19/22 06:03 06/20/22 10:05 Labs: Abnormal Lab Results - Last 24 Hours (Table) 06/19/22 06/19/22 06/20/22 Range/Units 16:36 20:35 06:32 Chloride (98-107) mmol/L Carbon Dioxide (22-30) mmol/L BUN (7-17) mg/dL Creatinine (0.52-1.04) mg/dL Glucose (74-99) mg/dL POC Glucose (mg/dL) 190 H 223 H 223 H (70-110) mg/dL Calcium (8.4-10.2) mg/dL 06/20/22 06/20/22 Range/Units 10:05 11:33 Chloride 92 L (98-107) mmol/L Carbon Dioxide 38 H (22-30) mmol/L BUN 41 H (7-17) mg/dL Creatinine 1.59 H (0.52-1.04) mg/dL Glucose 214 H (74-99) mg/dL POC Glucose (mg/dL) 239 H (70-110) mg/dL Calcium 7.8 L (8.4-10.2) mg/dL
--- NOTE | 2022-06-20 15:30 | P.PN ---
Subjective 81-year-old female, with history of hypertension, hyperlipidemia, diabetes mellitus, hypothyroidism, atrial fibrillation, COPD, CHF, presents to the emergency department. Patient felt to be hypoxic in the 70s by paramedics. She was placed on a nonrebreather but did not report improvement. She was placed on CPAP for transport. She is able to answer some simple questions. No fever. No chest pain. According to family she had been doing quite well this morning but had missed taking her blood pressure medication. Initial blood pressure upon arrival is 210/110. She is in severe respiratory distress. In the ED patient was found to be hypotensive and in flash pulmonary edema; chest x-ray revealed bilateral pulmonary edema and pleural effusions; lab review shows a WBC of 11.5, hemoglobin of 11.6 and platelet count of 307, sodium 139, potassium 5.1, BUN/creatinine of 26/1.2 and blood glucose of 374; troponin is mildly elevated at 0.320 EKG Findings:: EKG: Says bradycardia, low voltage, rate of 55, KS interval 146, QRS duration 116, QTC 477, no ST segment elevation 06/18/2022 Patient is seen and evaluated in room at bedside; reports marked weakness when ambulating to the bathroom Vital signs are reviewed and remained stable; lab review shows creatinine trending up to 1.6 this morning from 1.2 on admission; patient has been on d iuretics for CHF exacerbation; we will consult nephrology Hyperglycemia is improving with addition of Levemir; we will continue to monitor Accu-Cheks every seen at bedtime and adjust therapy as needed Reports marked debility and PT/OT have been consulted for discharge planning 06/19/2021 Patient dyspnea is improving, no large basilar crepitations. Patient is still mildly fluid overloaded and continue with IV Lasix. This Creatinine is 1.49, patient with evidence of chronic kidney disease stage III and baseline 1.2-1.7. Glucose is 235-443. Increase Levemir 20 units at NovoLog 7 units with meals Check labs in the morning. 06/20/2022 Patient breathing is improving. Her IV Lasix switched to oral dose Glucose is better controlled on Levemir 20 units and neck crease NovoLog 7 to 9 units. Blood pressure still slightly elevated. Patient can be discharged home, however she is pending placement, discussed with social science teacher Objective - Vital Signs Vital signs: Vital Signs Temp 97.7 F 06/20/22 08:00 Pulse 43 L 06/20/22 11:00 Resp 18 06/20/22 11:00 BP 159/54 06/20/22 11:00 Pulse Ox 100 06/20/22 11:00 FiO2 50 06/15/22 16:03 Intake & Output 06/19/22 06/20/22 06/20/22 18:59 06:59 18:59 Intake Total 180 Output Total 200 400 Balance -200 -400 180 Weight 84 kg Intake: Oral 180 Output: Urine 200 400 Other: Voiding Method Bedside Commode Bedside Commode - Exam GENERAL: The patient is alert and oriented x3, not in any acute distress. Well developed, well nourished. HEENT: Pupils are round and equally reacting to light. EOMI. No scleral icterus. No conjunctival pallor. Normocephalic, atraumatic. No pharyngeal erythema. No thyromegaly. CARDIOVASCULAR: S1 and S2 present. No murmurs, rubs, or gallops. PULMONARY: Chest is clear to auscultation, no wheezing or crackles. ABDOMEN: Soft, nontender, nondistended, normoactive bowel sounds. No palpable organomegaly. MUSCULOSKELETAL: No joint swelling or deformity. EXTREMITIES: No cyanosis, clubbing, or pedal edema. NEUROLOGICAL: Gross neurological examination did not reveal any focal deficits. SKIN: No rashes. no petechiae. - Labs CBC & Chem 7: 06/19/22 06:03 06/20/22 10:05 Labs: Abnormal Lab Results - Last 24 Hours (Table) 06/19/22 06/19/22 06/20/22 Range/Units 16:36 20:35 06:32 Chloride (98-107) mmol/L Carbon Dioxide (22-30) mmol/L BUN (7-17) mg/dL Creatinine (0.52-1.04) mg/dL Glucose (74-99) mg/dL POC Glucose (mg/dL) 190 H 223 H 223 H (70-110) mg/dL Calcium (8.4-10.2) mg/dL 06/20/22 06/20/22 Range/Units 10:05 11:33 Chloride 92 L (98-107) mmol/L Carbon Dioxide 38 H (22-30) mmol/L BUN 41 H (7-17) mg/dL Creatinine 1.59 H (0.52-1.04) mg/dL Glucose 214 H (74-99) mg/dL POC Glucose (mg/dL) 239 H (70-110) mg/dL Calcium 7.8 L (8.4-10.2) mg/dL Assessment and Plan Assessment: 1. Acute exacerbation CHF with preserved EF; patient has been placed on Lasix 40 mg by mouth every 12 hours; we will monitor strict FRANKLIN's, daily weights, low salt and fluid restricted diet - Cardiology and pulmonary on board and agreeable with plan of care 2. Hypertensive emergency; noncompliance with medication; cardiology recommending to restart patient on home medications along with hydralazine 100 mg 3 times a day and continue to monitor blood pressure closely for further adjustment 3. Elevated troponin; chronic evidence of myocardial injury with no evidence of acute ischemia; repeat echocardiogram was not recommended given patient had recent echocardiogram completed 4. Acute hypoxemic respiratory failure related to flash pulmonary edema; patient did respond well to diuresis; currently maintaining O2 saturation above 92% on 4 L O2 per nasal cannula 5. Chronic atrial fibrillation; remains rate controlled on Coreg 25 mg twice a day; anticoagulated with Eliquis 5 mg twice a day 6. Diabetes mellitus; monitor Accu-Cheks before meals and at bedtime with insulin sliding scale 7. Hyperlipidemia; Lipitor 80 mg by mouth daily at bedtime 8. Hypothyroidism; levothyroxine 125 MCG daily 9. Chronic kidney disease stage III; stable at baseline 10. Sleep apnea; continue with home CPAP therapy
[2022-06-20 16:29] LABS: Glucose,Whole Blood 219 mg/dL (70-110)
[2022-06-20] MEDS: FUROSEMIDE 40 MG TAB PO SCH (16:51)
[2022-06-20 20:14] LABS: Glucose,Whole Blood 155 mg/dL (70-110)
[2022-06-20] MEDS: ATORVASTATIN 80 MG TAB PO SCH (20:33)
[2022-06-21] MEDS: ACETAMINOPHEN TAB 325 MG TAB PO PRN ×3 (04:38→20:32)
[2022-06-21] MEDS ORDERED: NIFEdipine XL 90 MG TAB.ER.24 PO SCH (05:00)
[2022-06-21 06:10] LABS: Glucose,Whole Blood 267 mg/dL (70-110)
[2022-06-21] MEDS: APIXABAN 2.5 MG TABLET PO SCH ×2 (06:52→16:57)
[2022-06-21] MEDS: carvediloL 12.5 MG TAB PO SCH ×2 (06:52→16:57)
[2022-06-21] MEDS: LEVOTHYROXINE 125 MCG TAB PO SCH (06:53)
[2022-06-21] MEDS: INSULIN ASPART (NovoLOG) 100 UNIT/ML VIAL SQ SCH ×7 (06:53→20:33)
[2022-06-21] MEDS ORDERED: INSULIN DETEMIR (LEVEMIR) 100 UNIT/ML SYR SQ SCH (07:00)
[2022-06-21] MEDS: FUROSEMIDE 40 MG TAB PO SCH ×2 (08:13→16:57)
[2022-06-21] MEDS: ISOSORBIDE MONONITRATE ER 60 MG TAB.ER.24H PO SCH (08:14)
[2022-06-21] MEDS: hydrALAZINE HCL 50 MG TAB PO SCH ×3 (08:14→20:33)
[2022-06-21] MEDS: CLOPIDOGREL 75 MG TAB PO SCH (08:14)
[2022-06-21 09:02] LABS: Calcium 8.1 mg/dL (8.4-10.2); Potassium 3.8 mmol/L (3.5-5.1)
[2022-06-21] MEDS: SPIRONOLACTONE 25 MG TAB PO SCH (09:45)
--- NOTE | 2022-06-21 10:05 | P.PN ---
Subjective Progress Note Date: 06/21/22 HISTORY OF PRESENT ILLNESS: Hypertension emergency The patient is a pleasant 81-year-old female patient with a past medical history significant for valvular heart disease with known severe aortic stenosis status post transcutaneous aortic valve replacement was performed in 2021, heart failure with preserved ejection fraction, mild nonobstructive coronary artery disease based on recent heart catheterization, hypertension, dyslipidemia, paroxysmal atrial fibrillation, as well as history of pulmonary involving us in. We requested to see the patient as a consult here for further evaluation off heart failure. Patient has multiple hospital admissions with congestive heart failure. She was in her usual state of health until about 3 days ago when she started experiencing progressive exertional dyspnea with no associated lower extremities edema and no associated chest pain or chest discomfort and no dizziness or lightheadedness and no feeling of heart racing or fluttering or presyncope or syncope. No symptoms of fever or chills and no cough or sputum production. Her daughter brought her to the emergency department for further investigation. She underwent a chest x-ray which showed finding consistent with heart failure. She underwent an EKG which showed sinus rhythm. Her troponin is a slightly elevated but she is normal at 24. She also underwent and the proBNP which came in to be 4000. Beside that when she presented to the emergency department she was found to be hypertensive and initially she was started on nitro drip. The patient stated that she has been compliant with her medications except the hydralazine. She has not taken it. She also stated that she has been eating food through an agency and clearly the foot is not helping and has high sodium. The most recent echo from 2021 revealed normal left ventricular systolic function with normally functioning transcatheter valve. The patient was seen and examined this morning clearly she is in heart failure with crackles bilaterally and mild bilateral lower extremities edema noted also examination. Currently also she is hypoxic requiring 2 L of oxygen to maintain saturation above 90 June 172021 The patient was seen this morning. Overall she seems to be better. She is on Lasix IV and she has been diuresing very well. Currently she is on 2 L oxygen. On examination she seems to be euvolemic with diminished breathing sounds bilaterally. The pressure continues to be elevated. I'm going to increase the dose of hydralazine 200 mg by mouth 3 times a day. Continue monitor the pressure and adjust her medications or add medications 2. Meanwhile I would advise continue IV Lasix for at least additional 24 hours. We'll continue following up with the patient June 182021 The patient was seen and examined this morning. She is doing better overall. Shortness of breath has improved significantly and she has clear breathing sounds bilaterally. The lower extremity edema has improved significantly as well as. The blood pressure also has improved significantly. Her saturation has been normal without oxygen. From the cardiac standpoint of view, we will continue the current medical regimen with possible discharge in the next 12-24 hours. She was advised to be compliant with her medications as well as with her low-sodium diet. 06/19/2022 Patient examined this morning at the bedside. Patient denies chest pain or pressure. Denies SOB. Telemetry reveals sinus mechanism with a heart rate in the 50s. Blood pressure in the 150s. She remains on IV lasix. She does not appear to be volume overloaded, however, she continues to report SOB with minimal exertion. Creatinine today 1.4, down from 1.6. 06/20/2022 Patient examined this morning at the bedside. Patient denies chest pain or pressure. Denies SOB. Patient remains on IV lasix. Vital signs are stable. 06/21/2022 Patient examined this morning at the bedside. Patient denies chest pain or pressure. Denies SOB. She has been transitioned to oral lasix. Patient reports having a bad nightmare in the middle of the night. Her blood pressure was found to be elevated around 200. She was given a dose of Procardia. Blood pressure improved this morning. PHYSICAL EXAM: VITAL SIGNS: Reviewed. GENERAL: Well-developed in no acute distress. NECK: Supple. No JVD or thyromegaly LUNGS: Respirations even and unlabored. Lungs diminished at the bases. HEART: Regular rate and rhythm. S1 and S2 heard. + systolic murmur. EXTREMITIES: Normal range of motion. No clubbing or cyanosis. Peripheral pulses intact. No lower extremity edema ASSESSMENT: Shortness of breath Acute on chronic heart failure with preserved ejection fraction Hypertensive emergency Acute on chronic kidney disease History of TAVR Abnormal troponins, not suggestive of ACS Nonobstructive coronary artery disease History of pulmonary embolism History of medication noncompliance History of noncompliance with diet PLAN: Continue current cardiac medications Discontinue Procardia Begin Norvasc 5mg daily Continue to monitor blood pressure Patient to follow up outpatient with Dr. Hernandez Further recommendations pending patient course Nurse practitioner note has been reviewed by physician. Signing provider agrees with the documented findings, assessment, and plan of care. Objective - Vital Signs Vital signs: Vital Signs Temp 97.4 F L 06/21/22 08:15 Pulse 57 L 06/21/22 08:15 Resp 20 06/21/22 08:15 BP 125/63 06/21/22 08:15 Pulse Ox 99 06/21/22 08:23 FiO2 50 06/15/22 16:03 Intake & Output 06/20/22 06/21/22 06/21/22 18:59 06:59 18:59 Intake Total 900 180 Output Total 300 400 Balance 600 -400 180 Weight 84 kg 88 kg Intake: Oral 900 180 Output: Urine 300 400 Stool 0 Other: Voiding Method Bedside Commode Toilet Toilet # Voids 2 - Labs CBC & Chem 7: 06/19/22 06:03 06/21/22 07:35 Labs: Abnormal Lab Results - Last 24 Hours (Table) 06/20/22 06/20/22 06/20/22 Range/Units 10:05 11:33 16:27 Chloride 92 L (98-107) mmol/L Carbon Dioxide 38 H (22-30) mmol/L BUN 41 H (7-17) mg/dL Creatinine 1.59 H (0.52-1.04) mg/dL Glucose 214 H (74-99) mg/dL POC Glucose (mg/dL) 239 H 219 H (70-110) mg/dL Calcium 7.8 L (8.4-10.2) mg/dL 06/20/22 06/21/22 06/21/22 Range/Units 20:12 06:08 07:35 Chloride 92 L (98-107) mmol/L Carbon Dioxide 36 H (22-30) mmol/L BUN 44 H (7-17) mg/dL Creatinine 1.64 H (0.52-1.04) mg/dL Glucose 307 H (74-99) mg/dL POC Glucose (mg/dL) 155 H 267 H (70-110) mg/dL Calcium 8.1 L (8.4-10.2) mg/dL
--- NOTE | 2022-06-21 10:30 | P.PN ---
Subjective Progress Note Date: 06/21/22 81 -year-old female who presents to the emergency department on June 15, at 1551, complaining about shortness of breath. On 06/19/2022 the patient feels that she is back to her normal self and baselin e. She is currently on 2 L O2 nasal cannula and this is what she uses at home as the patient has been diagnosed having COPD due to extensive secondhand smoke exposure. The patient remains on Lasix 40 mg every 12 hours. The patient is also on Coreg 25 mg twice a day and hydralazine 100 mg 3 times a day. She is also on interview or 60 mg by mouth daily. She remains on Lipitor, Plavix and she is on long-term anticoagulation with Eliquis. She is taking 2.5 mg twice a day. The white cell count is at 7.5 with a hemoglobin of 10.4, BUN is 44 with a creatinine of 1.4 and his sodium level is at 136. She is known to have history of aortic stenosis that she has undergone a transcatheter aortic valve replacement and the patient is also known to have COPD, CVA, diabetes, hyperlipidemia, hypertension, hypothyroidism and osteoarthritis. She has also history of atrial fibrillation for that reason she has been maintained on anticoagulation. On 06/20/2022, the patient is on 2 L oxygen. Feeling better. Less short of breath. Switched to oral Lasix. The chest x-ray was repeated today and the findings were consistent with cardiomegaly. There is improvement with elevation and there is some persistent small right-sided pleural effusion. BUN is at 41 with a creatinine of 1.59 which is stable and a sodium level is at 137. No chest pain. No cough or sputum production. Remains on Plavix. Remains on Lipitor. Remains on an anticoagulation with Eliquis 2.5 mg twice a day. 06/21/2022, the patient is feeling well on 2 L. No new complaints. She has been switched to oral Lasix. She is essentially well diuresed. She is going to [facility] for further rehabilitation. Her BUN is at 44 with a creatinine of 1.64 and the rest of the electrolytes are all stable. Blood sugar slightly elevated at 267. She is on Levemir insulin 22 units along with 7 units with meals plus a sliding scale coverage. She is on long-term anticoagulants. Objective - Vital Signs Vital signs: Vital Signs Temp 97.4 F L 06/21/22 08:15 Pulse 57 L 06/21/22 08:15 Resp 20 06/21/22 08:15 BP 125/63 06/21/22 08:15 Pulse Ox 99 06/21/22 08:23 FiO2 50 06/15/22 16:03 Intake & Output 06/20/22 06/21/22 06/21/22 18:59 06:59 18:59 Intake Total 900 180 Output Total 300 400 Balance 600 -400 180 Weight 84 kg 88 kg Intake: Oral 900 180 Output: Urine 300 400 Stool 0 Other: Voiding Method Bedside Commode Toilet Toilet # Voids 2 - Exam No acute distress, oriented 3. 2 L saturation is 97 %. HEENT examination is grossly unremarkable. Neck supple. Full range of motion. No adenopathy thyromegaly or neck vein di stention. Cardiovascular examination reveals regular rhythm rate. S1-S2 normal. No S3 or S4. A soft systolic murmur is noted. Lungs reveal bibasilar crackles. No rhonchi. No wheezes. Breath sounds are diminished at the bases. Abdomen soft bowel sounds are heard. No masses or tenderness. Extremities are intact. No cyanosis or clubbing. Trace edema present. Skin is without rash or lesion. Neurologic examination is brief but nonfocal. - Labs CBC & Chem 7: 06/19/22 06:03 06/21/22 07:35 Labs: Abnormal Lab Results - Last 24 Hours (Table) 06/20/22 06/20/22 06/20/22 Range/Units 10:05 11:33 16:27 Chloride 92 L (98-107) mmol/L Carbon Dioxide 38 H (22-30) mmol/L BUN 41 H (7-17) mg/dL Creatinine 1.59 H (0.52-1.04) mg/dL Glucose 214 H (74-99) mg/dL POC Glucose (mg/dL) 239 H 219 H (70-110) mg/dL Calcium 7.8 L (8.4-10.2) mg/dL 06/20/22 06/21/22 06/21/22 Range/Units 20:12 06:08 07:35 Chloride 92 L (98-107) mmol/L Carbon Dioxide 36 H (22-30) mmol/L BUN 44 H (7-17) mg/dL Creatinine 1.64 H (0.52-1.04) mg/dL Glucose 307 H (74-99) mg/dL POC Glucose (mg/dL) 155 H 267 H (70-110) mg/dL Calcium 8.1 L (8.4-10.2) mg/dL Assessment and Plan Plan: Acute hypoxemic respiratory failure secondary to CHF and flash pulmonary edema. Recovered and the patient is currently on 2 L of O2 nasal cannula which is what she uses at home. Clinically improved History of aortic stenosis, status post transcatheter aortic valve replacement, March 2022. History of chronic atrial fibrillation. History of CVA. History of angina pectoris. History of diabetes. History of hyperlipidemia. History of hypertension. History of osteoarthritis. History of hypothyroidism. Stage III chronic kidney disease. Sleep apnea, maintained on CPAP. Multiple medical problems and comorbidities. Plan: The patient is clinically improving of the chest x-rays also improving Continue Lasix to 40 mg by mouth twice a day Stable renal function Monitor electrolytes and blood pressure Continue anticoagulation with Eliquis Oxygen is at 2 L/m nasal cannula Clinically improved and most likely the pulmonary edema is also improved. there is some residual small right-sided pleural effusion. She needs to cut down on the salt and Fluid Intake. ECF today.
--- NOTE | 2022-06-21 11:03 | P.PN ---
Subjective Patient is seen for follow-up for acute kidney injury on top of chronic kidney disease. Patient is admitted with volume overload. She has been diuresed. Overall feeling better Serum creatinine staying at 1.4-1.6 mg/dL now. Switched to oral diuretics. Blood pressure was high early this morning as patient states that she had a nightmare. Repeat blood pressure much improved to systolic of 1 25 mmHg. Objective - Vital Signs Vital signs: Vital Signs Temp 97.4 F L 06/21/22 08:15 Pulse 57 L 06/21/22 08:15 Resp 20 06/21/22 08:15 BP 125/63 06/21/22 08:15 Pulse Ox 99 06/21/22 08:23 FiO2 50 06/15/22 16:03 Intake & Output 06/20/22 06/21/22 06/21/22 18:59 06:59 18:59 Intake Total 900 180 Output Total 300 400 Balance 600 -400 180 Weight 84 kg 88 kg Intake: Oral 900 180 Output: Urine 300 400 Stool 0 Other: Voiding Method Bedside Commode Toilet Toilet # Voids 2 - Exam Patient is comfortable awake not in any acute distress Examination of the heart S1 and S2 Examination of the lungs bilateral breath sounds are heard Abdomen is soft nontender Examination of lower extremities shows no evidence of edema [employer]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 [employer]GRAPHY exam grossly intact - Labs CBC & Chem 7: 06/19/22 06:03 06/21/22 07:35 Labs: Abnormal Lab Results - Last 24 Hours (Table) 06/20/22 06/20/22 06/20/22 Range/Units 10:05 11:33 16:27 Chloride 92 L (98-107) mmol/L Carbon Dioxide 38 H (22-30) mmol/L BUN 41 H (7-17) mg/dL Creatinine 1.59 H (0.52-1.04) mg/dL Glucose 214 H (74-99) mg/dL POC Glucose (mg/dL) 239 H 219 H (70-110) mg/dL Calcium 7.8 L (8.4-10.2) mg/dL 06/20/22 06/21/22 06/21/22 Range/Units 20:12 06:08 07:35 Chloride 92 L (98-107) mmol/L Carbon Dioxide 36 H (22-30) mmol/L BUN 44 H (7-17) mg/dL Creatinine 1.64 H (0.52-1.04) mg/dL Glucose 307 H (74-99) mg/dL POC Glucose (mg/dL) 155 H 267 H (70-110) mg/dL Calcium 8.1 L (8.4-10.2) mg/dL Assessment and Plan Assessment: 1. Acute kidney injury, cardiorenal currently nonoliguric and improved 2. Chronic kidney disease NKF stage IIIB with previous creatinine 1.5-1.3 mg/dL etiology is nephrosclerosis 3. Recent acute kidney injury with serum creatinine up to 1.8 in April 2022 and improved with creatinine down to 1.34 a few days later. 4. Acute on chronic diastolic CHF. Ejection fraction 50-55% with moderately increased left ventricular wall thickness 5. hypertension with CK D stage III 6. Chronic A. fib maintained on eliquis 7. Hypertension with elevated blood pressure this morning secondary to ni ghtmare per patient. Plan: Add Aldactone Monitor for hypotension at home Follow-up as outpatient in about 1-2 weeks' time.
[2022-06-21 11:28] LABS: Glucose,Whole Blood 442 mg/dL (70-110)
[2022-06-21 12:48] VITALS: BMI 37.8
--- NOTE | 2022-06-21 14:42 | P.PN ---
Subjective 81-year-old female, with history of hypertension, hyperlipidemia, diabetes mellitus, hypothyroidism, atrial fibrillation, COPD, CHF, presents to the emergency department. Patient felt to be hypoxic in the 70s by paramedics. She was placed on a nonrebreather but did not report improvement. She was placed on CPAP for transport. She is able to answer some simple questions. No fever. No chest pain. According to family she had been doing quite well this morning but had missed taking her blood pressure medication. Initial blood pressure upon arrival is 210/110. She is in severe respiratory distress. In the ED patient was found to be hypotensive and in flash pulmonary edema; chest x-ray revealed bilateral pulmonary edema and pleural effusions; lab review shows a WBC of 11.5, hemoglobin of 11.6 and platelet count of 307, sodium 139, potassium 5.1, BUN/creatinine of 26/1.2 and blood glucose of 374; troponin is mildly elevated at 0.320 EKG Findings:: EKG: Says bradycardia, low voltage, rate of 55, MT interval 146, QRS duration 116, QTC 477, no ST segment elevation 06/18/2022 Patient is seen and evaluated in room at bedside; reports marked weakness when ambulating to the bathroom Vital signs are reviewed and remained stable; lab review shows creatinine trending up to 1.6 this morning from 1.2 on admission; patient has been on d iuretics for CHF exacerbation; we will consult nephrology Hyperglycemia is improving with addition of Levemir; we will continue to monitor Accu-Cheks every seen at bedtime and adjust therapy as needed Reports marked debility and PT/OT have been consulted for discharge planning 06/19/2021 Patient dyspnea is improving, no large basilar crepitations. Patient is still mildly fluid overloaded and continue with IV Lasix. This Creatinine is 1.49, patient with evidence of chronic kidney disease stage III and baseline 1.2-1.7. Glucose is 235-443. Increase Levemir 20 units at NovoLog 7 units with meals Check labs in the morning. 06/20/2022 Patient breathing is improving. Her IV Lasix switched to oral dose Glucose is better controlled on Levemir 20 units and neck crease NovoLog 7 to 9 units. Blood pressure still slightly elevated. Patient can be discharged home, however she is pending placement, discussed with social studies department chair 06-21-22 Patient remains clinically stable, she is fully awake and oriented Patient states during the night she had nightmare, at that time her blood pressure went up with systolic more than 200, [employer] on-call give her nifedipine gel which is discontinued later and she was placed on Norvasc and Aldactone by [employer] and [employer], currently her blood pressure is stable. Last reading 118/61, she has mild asymptomatic bradycardia at 54-57. Glucose went up to 100-400, we'll increase her NovoLog 7 up to 9 units and Levemir 22 up to 25 units Patient is cleared by all consults is occluded pulmonary, [employer] and [employer] Patient accepted by alf pending insurance authorization Keep monitoring glucose and blood pressure Objective - Vital Signs Vital signs: Vital Signs Temp 97.4 F L 06/21/22 08:15 Pulse 57 L 06/21/22 08:15 Resp 20 06/21/22 08:15 BP 125/63 06/21/22 08:15 Pulse Ox 99 06/21/22 08:23 FiO2 50 06/15/22 16:03 Intake & Output 06/20/22 06/21/22 06/21/22 18:59 06:59 18:59 Intake Total 900 180 Output Total 300 400 Balance 600 -400 180 Weight 84 kg 88 kg Intake: Oral 900 180 Output: Urine 300 400 Stool 0 Other: Voiding Method Bedside Commode Toilet Toilet # Voids 2 - Exam GENERAL: The patient is alert and oriented x3, not in any acute distress. Well developed, well nourished. HEENT: Pupils are round and equally reacting to light. EOMI. No scleral icterus. No conjunctival pallor. Normocephalic, atraumatic. No pharyngeal erythema. No thyromegaly. CARDIOVASCULAR: S1 and S2 present. No murmurs, rubs, or gallops. PULMONARY: Chest is clear to auscultation, no wheezing or crackles. ABDOMEN: Soft, nontender, nondistended, normoactive bowel sounds. No palpable organomegaly. MUSCULOSKELETAL: No joint swelling or deformity. EXTREMITIES: No cyanosis, clubbing, or pedal edema. NEUROLOGICAL: Gross neurological examination did not reveal any focal deficits. SKIN: No rashes. no petechiae. - Labs CBC & Chem 7: 06/19/22 06:03 06/21/22 07:35 Labs: Abnormal Lab Results - Last 24 Hours (Table) 06/20/22 06/20/22 06/20/22 Range/Units 10:05 11:33 16:27 Chloride 92 L (98-107) mmol/L Carbon Dioxide 38 H (22-30) mmol/L BUN 41 H (7-17) mg/dL Creatinine 1.59 H (0.52-1.04) mg/dL Glucose 214 H (74-99) mg/dL POC Glucose (mg/dL) 239 H 219 H (70-110) mg/dL Calcium 7.8 L (8.4-10.2) mg/dL 06/20/22 06/21/22 06/21/22 Range/Units 20:12 06:08 07:35 Chloride 92 L (98-107) mmol/L Carbon Dioxide 36 H (22-30) mmol/L BUN 44 H (7-17) mg/dL Creatinine 1.64 H (0.52-1.04) mg/dL Glucose 307 H (74-99) mg/dL POC Glucose (mg/dL) 155 H 267 H (70-110) mg/dL Calcium 8.1 L (8.4-10.2) mg/dL 06/21/22 Range/Units 11:26 Chloride (98-107) mmol/L Carbon Dioxide (22-30) mmol/L BUN (7-17) mg/dL Creatinine (0.52-1.04) mg/dL Glucose (74-99) mg/dL POC Glucose (mg/dL) 442 H (70-110) mg/dL Calcium (8.4-10.2) mg/dL Assessment and Plan Assessment: 1. Acute exacerbation CHF with preserved EF; patient has been placed on Lasix 40 mg by mouth every 12 hours; we will monitor strict FRANKLIN's, daily weights, low salt and fluid restricted diet - Cardiology and pulmonary on board and agreeable with plan of care . they cleared the patient 2. Hypertensive emergency; noncompliance with medication; cardiology recommending to restart patient on home medications along with hydralazine 100 mg 3 times a day and continue to monitor blood pressure closely for further a djustment. Norvasc and Aldactone added. Keep monitor blood pressure 3. Elevated troponin; chronic evidence of myocardial injury with no evidence of acute ischemia; repeat echocardiogram was not recommended given patient had recent echocardiogram completed 4. Acute hypoxemic respiratory failure related to flash pulmonary edema; patient did respond well to diuresis; currently maintaining O2 saturation above 92% on 4 L O2 per nasal cannula 5. Chronic atrial fibrillation; remains rate controlled on Coreg 25 mg twice a day; anticoagulated with Eliquis 5 mg twice a day 6. Diabetes mellitus with hyperglycemia,; monitor Accu-Cheks before meals and at bedtime with insulin sliding scale. Increase NovoLog 9 units was male and Levemir 25 units 7. Hyperlipidemia; Lipitor 80 mg by mouth daily at bedtime 8. Hypothyroidism; levothyroxine 125 MCG daily 9. Chronic kidney disease stage III; stable at baseline 10. Sleep apnea; continue with home CPAP therapy
[2022-06-21 16:23] LABS: Glucose,Whole Blood 168 mg/dL (70-110)
[2022-06-21 19:38] LABS: Glucose,Whole Blood 160 mg/dL (70-110)
[2022-06-21] MEDS: ATORVASTATIN 80 MG TAB PO SCH (20:32)
[2022-06-22 05:44] LABS: Glucose,Whole Blood 289 mg/dL (70-110)
[2022-06-22] MEDS: INSULIN ASPART (NovoLOG) 100 UNIT/ML VIAL SQ SCH ×7 (06:34→21:15)
[2022-06-22] MEDS: LEVOTHYROXINE 125 MCG TAB PO SCH (06:34)
[2022-06-22] MEDS: APIXABAN 2.5 MG TABLET PO SCH ×2 (06:34→16:51)
[2022-06-22] MEDS: carvediloL 12.5 MG TAB PO SCH ×2 (06:36→16:51)
[2022-06-22] MEDS: INSULIN DETEMIR (LEVEMIR) 100 UNIT/ML SYR SQ SCH (06:59)
[2022-06-22] MEDS: hydrALAZINE HCL 50 MG TAB PO SCH ×3 (08:43→21:14)
[2022-06-22] MEDS: ISOSORBIDE MONONITRATE ER 60 MG TAB.ER.24H PO SCH (08:43)
[2022-06-22] MEDS: FUROSEMIDE 40 MG TAB PO SCH ×2 (08:43→16:51)
[2022-06-22] MEDS: amLODIPine 5 MG TAB PO SCH (08:43)
[2022-06-22] MEDS: SPIRONOLACTONE 25 MG TAB PO SCH (08:43)
[2022-06-22] MEDS: CLOPIDOGREL 75 MG TAB PO SCH (08:43)
--- NOTE | 2022-06-22 10:26 | P.PN ---
Subjective Progress Note Date: 06/22/22 HISTORY OF PRESENT ILLNESS: Hypertension emergency The patient is a pleasant 81-year-old female patient with a past medical history significant for valvular heart disease with known severe aortic stenosis status post transcutaneous aortic valve replacement was performed in 2021, heart failure with preserved ejection fraction, mild nonobstructive coronary artery disease based on recent heart catheterization, hypertension, dyslipidemia, paroxysmal atrial fibrillation, as well as history of pulmonary involving us in. We requested to see the patient as a consult here for further evaluation off heart failure. Patient has multiple hospital admissions with congestive heart failure. She was in her usual state of health until about 3 days ago when she started experiencing progressive exertional dyspnea with no associated lower extremities edema and no associated chest pain or chest discomfort and no dizziness or lightheadedness and no feeling of heart racing or fluttering or presyncope or syncope. No symptoms of fever or chills and no cough or sputum production. Her daughter brought her to the emergency department for further investigation. She underwent a chest x-ray which showed finding consistent with heart failure. She underwent an EKG which showed sinus rhythm. Her troponin is a slightly elevated but she is normal at 24. She also underwent and the proBNP which came in to be 4000. Beside that when she presented to the emergency department she was found to be hypertensive and initially she was started on nitro drip. The patient stated that she has been compliant with her medications except the hydralazine. She has not taken it. She also stated that she has been eating food through an agency and clearly the foot is not helping and has high sodium. The most recent echo from 2021 revealed normal left ventricular systolic function with normally functioning transcatheter valve. The patient was seen and examined this morning clearly she is in heart failure with crackles bilaterally and mild bilateral lower extremities edema noted also examination. Currently also she is hypoxic requiring 2 L of oxygen to maintain saturation above 90 June [id number] The patient was seen this morning. Overall she seems to be better. She is on Lasix IV and she has been diuresing very well. Currently she is on 2 L oxygen. On examination she seems to be euvolemic with diminished breathing sounds bilaterally. The pressure continues to be elevated. I'm going to increase the dose of hydralazine 200 mg by mouth 3 times a day. Continue monitor the pressure and adjust her medications or add medications 2. Meanwhile I would advise continue IV Lasix for at least additional 24 hours. We'll continue following up with the patient June [id number] The patient was seen and examined this morning. She is doing better overall. Shortness of breath has improved significantly and she has clear breathing sounds bilaterally. The lower extremity edema has improved significantly as well as. The blood pressure also has improved significantly. Her saturation has been normal without oxygen. From the cardiac standpoint of view, we will continue the current medical regimen with possible discharge in the next 12-24 hours. She was advised to be compliant with her medications as well as with her low-sodium diet. 06/19/2022 Patient examined this morning at the bedside. Patient denies chest pain or pressure. Denies SOB. Telemetry reveals sinus mechanism with a heart rate in the 50s. Blood pressure in the 150s. She remains on IV lasix. She does not appear to be volume overloaded, however, she continues to report SOB with minimal exertion. Creatinine today 1.4, down from 1.6. 06/20/2022 Patient examined this morning at the bedside. Patient denies chest pain or pressure. Denies SOB. Patient remains on IV lasix. Vital signs are stable. 06/21/2022 Patient examined this morning at the bedside. Patient denies chest pain or pressure. Denies SOB. She has been transitioned to oral lasix. Patient reports having a bad nightmare in the middle of the night. Her blood pressure was found to be elevated around 200. She was given a dose of Procardia. Blood pressure improved this morning. 06/22/2022 Patient examined this morning at the bedside. Patient denies chest pain or pressure. She denies shortness of breath. Vital signs are stable. Blood pressure with a systolic in the 140s. PHYSICAL EXAM: VITAL SIGNS: Reviewed. GENERAL: Well-developed in no acute distress. NECK: Supple. No JVD or thyromegaly LUNGS: Respirations even and unlabored. Lungs diminished at the bases. HEART: Regular rate and rhythm. S1 and S2 heard. + systolic murmur. EXTREMITIES: Normal range of motion. No clubbing or cyanosis. Peripheral pulses intact. No lower extremity edema ASSESSMENT: Shortness of breath Acute on chronic heart failure with preserved ejection fraction Hypertensive emergency Acute on chronic kidney disease History of TAVR Abnormal troponins, not suggestive of ACS Nonobstructive coronary artery disease History of pulmonary embolism History of medication noncompliance History of noncompliance with diet PLAN: Continue current cardiac medications Patient is currently stable for discharge from a cardiac standpoint Patient to follow up outpatient with Dr. Hernandez Further recommendations pending patient course Nurse practitioner note has been reviewed by physician. Signing provider agrees with the documented findings, assessment, and plan of care. Objective - Vital Signs Vital signs: Vital Signs Temp 98.2 F 06/22/22 08:45 Pulse 62 06/22/22 08:45 Resp 16 06/22/22 08:45 BP 131/65 06/22/22 08:45 Pulse Ox 99 06/22/22 08:45 FiO2 50 06/15/22 16:03 Intake & Output 06/21/22 06/22/22 06/22/22 18:59 06:59 18:59 Intake Total 360 237 118 Output Total 0 Balance 360 237 118 Weight 88 kg Intake: Oral 360 237 118 Output: Stool 0 Other: Voiding Method Toilet Toilet Toilet # Voids 2 1 - Labs CBC & Chem 7: 06/19/22 06:03 06/21/22 07:35 Labs: Abnormal Lab Results - Last 24 Hours (Table) 06/21/22 06/21/22 06/21/22 Range/Units 11:26 16:22 19:36 POC Glucose (mg/dL) 442 H 168 H 160 H (70-110) mg/dL 06/22/22 Range/Units 05:41 POC Glucose (mg/dL) 289 H (70-110) mg/dL
--- NOTE | 2022-06-22 11:23 | P.PN ---
Subjective Patient is seen for follow-up for acute kidney injury on top of chronic kidney disease. Patient is admitted with volume overload. She has been diuresed. Overall feeling better Serum creatinine staying at 1.4-1.6 mg/dL now. Switched to oral diuretics. Blood pressure was elevated yesterday due to nightmare. Currently much better controlled. Started on Aldactone yesterday. Objective - Vital Signs Vital signs: Vital Signs Temp 98.2 F 06/22/22 08:45 Pulse 62 06/22/22 08:45 Resp 16 06/22/22 08:45 BP 131/65 06/22/22 08:45 Pulse Ox 99 06/22/22 08:45 FiO2 50 06/15/22 16:03 Intake & Output 06/21/22 06/22/22 06/22/22 18:59 06:59 18:59 Intake Total 360 237 118 Output Total 0 Balance 360 237 118 Weight 88 kg Intake: Oral 360 237 118 Output: Stool 0 Other: Voiding Method Toilet Toilet Toilet # Voids 2 1 - Exam Patient is comfortable awake not in any acute distress Examination of the heart S1 and S2 Examination of the lungs bilateral breath sounds are heard Abdomen is soft nontender Examination of lower extremities shows no evidence of edema FL[employer]ER exam grossly intact - Labs CBC & Chem 7: 06/19/22 06:03 06/21/22 07:35 Labs: Abnormal Lab Results - Last 24 Hours (Table) 06/21/22 06/21/22 06/21/22 Range/Units 11:26 16:22 19:36 POC Glucose (mg/dL) 442 H 168 H 160 H (70-110) mg/dL 06/22/22 Range/Units 05:41 POC Glucose (mg/dL) 289 H (70-110) mg/dL Assessment and Plan Assessment: 1. Acute kidney injury, cardiorenal currently nonoliguric and improved 2. Chronic kidney disease NKF stage IIIB with previous creatinine 1.5-1.3 mg/dL etiology is nephrosclerosis 3. Recent acute kidney injury with serum creatinine up to 1.8 in April 2022 and improved with creatinine down to 1.34 a few days later. 4. Acute on chronic diastolic CHF. Ejection fraction 50-55% with moderately increased left ventricular wall thickness 5. hypertension with CK D stage III 6. Chronic A. fib maintained on eliquis 7. Hypertension with elevated blood pressure secondary to nightmare per patient. Currently improved. Plan: Continue Aldactone and current dose of Lasix Monitor for hypotension at home Follow-up as outpatient in about 1-2 weeks' time.
[2022-06-22 11:31] LABS: Basophils % (A) 0 %; Eosinophils # (A) 0.4 k/uL (0-0.7); Eosinophils % (A) 6 %; HCT 29.8 % (34.0-46.0); HGB 9.4 gm/dL (11.4-16.0); Hypochromasia Marked; Lymphocytes # (A) 0.9 k/uL (1.0-4.8); Lymphocytes % (A) 15 %; MCH 27.7 pg (25.0-35.0); MCHC 31.4 g/dL (31.0-37.0); MCV 88.4 fL (80.0-100.0); Mean Platelet Volume 9.3; Monocytes # (A) 0.8 k/uL (0-1.0); Monocytes % (A) 13 %; Neutrophils # (A) 3.7 k/uL (1.3-7.7); Neutrophils % (A) 62 %; Platelet Count 172 k/uL (150-450); RBC 3.37 m/uL (3.80-5.40); RDW 14.2 % (11.5-15.5)
[2022-06-22 11:43] LABS: Glucose,Whole Blood 219 mg/dL (70-110)
[2022-06-22 11:59] LABS: Calcium 7.9 mg/dL (8.4-10.2); Potassium 4.1 mmol/L (3.5-5.1)
--- NOTE | 2022-06-22 12:15 | P.PN ---
Subjective Progress Note Date: 06/22/22 Principal diagnosis: Congestive heart failure. Pulmonary consult dated 06/16/2022. 81 -year-old female who presents to the emergency department on June 15, at 1551, complaining about shortness of breath. She apparently was very short of breath, and felt to be in extremis. Her saturations were apparently in the 70s according to the EMS personnel. She apparently was placed on a nonrebreather mask but did not improve. Subsequent to that, she was placed on CPAP, and was doing a bit better. She was able to speak in full sentences. She apparently missed taking her blood pressure medication, and her blood pressure in the emergency department was 210/110. She was thought to have flash pulmonary edema. Consulted because of shortness of breath. She has a history of atrial fibrillation, angina, heart failure, COPD, CVA, diabetes, hyperlipidemia, hypertension, DJD, pneumonia, sleep apnea, and thyroid disease. We saw her, she was resting comfortably. She was on 4 L of oxygen. She uses 2 L at home. She was here in the hospital back in March 2022. She has a history of aortic stenosis, status post transcatheter aortic valve replacement. N-terminal pro BNP on admission was 3340. White count 12, hemoglobin 10, hematocrit 33.1, and platelet count 204,000. Sodium, potassium, chloride, and CO2 were all normal. BUN 34, creatinine 1.9. Troponin was 0.093. Chest x-ray was consistent with CHF. Progress note dated 06/17/2022. 81-year-old female seen yesterday in consultation. She is doing well. She is in room 363. When she came to the emergency room, she was very short of breath. She required BiPAP therapy, and diuretics. Currently, the patient is on 2 L of oxygen. She's not receiving any IV fluids. No new labs today other than a glucose of 321. Pro-calcitonin level was 0.16. Progress note dated 06/18/2022. 81-year-old female seen in consultation 2 days ago. The patient is seen today in room 363. She's doing much better. She's currently on 2 L of oxygen. Saturations are 97%. When she came to the emergency room, she was very very short of breath. She required BiPAP therapy, and diuretics. Feeling much better today. Labs today include a white count of 9, hemoglobin 10.2, hematocrit 32.9, with a platelet count of 232,000. Sodium 137, potassium 4, chlorides 96, CO2 35, anion gap 6, BUN 44, and creatinine 1.63. Calcium 8.1. Progress note dated 06/22/2022. The patient was seen by me in consultation on June 16. Please see the consult above, and subsequent follow-up notes. The patient is seen today, in room 363. She's not receiving any IV fluids. She is on 2 L. She is resting comfortably without any respiratory difficulty or distress. Current labs include a white count of 6, hemoglobin 9.4, hematocrit 29.8. Platelet count 172,000. Sodium 136, potassium 4.1, chlorides 94, CO2 34, BUN 53, creatinine 1.60. Objective - Vital Signs Vital signs: Vital Signs Temp 98.2 F 06/22/22 08:45 Pulse 59 L 06/22/22 11:05 Resp 18 06/22/22 11:05 BP 119/44 06/22/22 11:05 Pulse Ox 99 06/22/22 11:05 FiO2 50 06/15/22 16:03 Intake & Output 06/21/22 06/22/22 06/22/22 18:59 06:59 18:59 Intake Total 360 237 118 Output Total 0 Balance 360 237 118 Weight 88 kg Intake: Oral 360 237 118 Output: Stool 0 Other: Voiding Method Toilet Toilet Toilet # Voids 2 1 - Exam No acute distress, oriented 3. 2 L saturation is 99 %. HEENT examination is grossly unremarkable. Neck supple. Full range of motion. No adenopathy thyromegaly or neck vein distention. Cardiovascular examination reveals regular rhythm rate. S1-S2 normal. No S3 or S4. A soft systolic murmur is noted. Heart rate 59 bpm. Heart sounds are distant. Lungs reveal minimal bibasilar crackles. No rhonchi. No wheezes. Breath sounds are diminished at the bases. Abdomen soft bowel sounds are heard. No masses or tenderness. Extremities are intact. No cyanosis or clubbing. Trace edema present. Skin is without rash or lesion. Neurologic examination is brief but nonfocal. - Labs CBC & Chem 7: 06/22/22 11:17 06/22/22 11:17 Labs: Abnormal Lab Results - Last 24 Hours (Table) 06/21/22 06/21/22 06/22/22 Range/Units 16:22 19:36 05:41 RBC (3.80-5.40) m/uL Hgb (11.4-16.0) gm/dL Hct (34.0-46.0) % Lymphocytes # (1.0-4.8) k/uL Sodium (137-145) mmol/L Chloride (98-107) mmol/L Carbon Dioxide (22-30) mmol/L BUN (7-17) mg/dL Creatinine (0.52-1.04) mg/dL Glucose (74-99) mg/dL POC Glucose (mg/dL) 168 H 160 H 289 H (70-110) mg/dL Calcium (8.4-10.2) mg/dL 06/22/22 06/22/22 06/22/22 Range/Units 11:17 11:17 11:42 RBC 3.37 L (3.80-5.40) m/uL Hgb 9.4 L (11.4-16.0) gm/dL Hct 29.8 L (34.0-46.0) % Lymphocytes # 0.9 L (1.0-4.8) k/uL Sodium 136 L (137-145) mmol/L Chloride 94 L (98-107) mmol/L Carbon Dioxide 34 H (22-30) mmol/L BUN 53 H (7-17) mg/dL Creatinine 1.60 H (0.52-1.04) mg/dL Glucose 222 H (74-99) mg/dL POC Glucose (mg/dL) 219 H (70-110) mg/dL Calcium 7.9 L (8.4-10.2) mg/dL Assessment and Plan Assessment: Acute hypoxemic respiratory failure secondary to CHF and flash pulmonary edema. History of aortic stenosis, status post transcatheter aortic valve replacement, March 2022. History of chronic atrial fibrillation. History of CVA. History of angina pectoris. History of diabetes. History of hyperlipidemia. History of hypertension. History of osteoarthritis. History of hypothyroidism. Stage III chronic kidney disease. Sleep apnea, maintained on CPAP. Multiple medical problems and comorbidities. Plan: Plan dated 06/16/2022. The patient appears to be doing much better. The patient was treated with diuretics. She's currently on 4 L nasal O2. Saturations are in the mid to high 90s. Labs, x-rays, and medications are reviewed. It's not clear to me that the patient has COPD. The patient is apparently a nonsmoker. Corticosteroids are not indicated. Breathing treatments would be of limited benefit. Additional recommendations and suggestions are forthcoming. We'll continue to follow make recommendations along the way. Plan dated 06/17/2022. The patient is doing much better. She's been weaned down to 2 L of oxygen. Initially, she was so bad, that she needed BiPAP. She is resting comfortably, without any chest pain or chest discomfort. The patient is not particularly short of breath. Labs, x-rays, and medications are reviewed. We'll continue to follow the patient and make recommendations along the way. Prognosis is guarded. Plan dated 06/18/2022. From the pulmonary standpoint, the patient's doing much better. She's down to 2 L. Her breathing is much improved. She is not complaining of any chest pain or shortness of breath. Labs, x-rays, and medications are reviewed. Prognosis is guarded. The patient is in the process of being evaluated for possible discharge. The patient is a DO NOT RESUSCITATE patient. We'll continue to follow make recommendations along the way. Plan dated 06/22/2022. The patient is doing well. I'm not sure why the patient is actually still in the hospital. She's on 2 L, with saturations of 99%. She's not manifesting any signs or symptoms of respiratory distress. The patient will be seen moving forward only as needed. No additional recommendations are made. The patient is a DO NOT RESUSCITATE patient. Labs, x-rays, and medications are all reviewed. Time with Patient: Less than 30
[2022-06-22 16:47] LABS: Glucose,Whole Blood 253 mg/dL (70-110)
[2022-06-22 20:03] LABS: Glucose,Whole Blood 177 mg/dL (70-110)
[2022-06-22] MEDS: ATORVASTATIN 80 MG TAB PO SCH (21:14)
[2022-06-22] MEDS: ACETAMINOPHEN TAB 325 MG TAB PO PRN (23:22)
[2022-06-23 04:48] VITALS: RESP 16; TEMP 97.6
[2022-06-23 06:05] LABS: Glucose,Whole Blood 264 mg/dL (70-110)
[2022-06-23] MEDS: INSULIN DETEMIR (LEVEMIR) 100 UNIT/ML SYR SQ SCH (06:36)
[2022-06-23] MEDS: APIXABAN 2.5 MG TABLET PO SCH ×2 (06:36→16:36)
[2022-06-23] MEDS: LEVOTHYROXINE 125 MCG TAB PO SCH (06:36)
[2022-06-23] MEDS: INSULIN ASPART (NovoLOG) 100 UNIT/ML VIAL SQ SCH ×6 (06:36→16:37)
[2022-06-23] MEDS: carvediloL 12.5 MG TAB PO SCH ×2 (06:36→16:36)
[2022-06-23 07:59] LABS: Basophils % (A) 0 %; Eosinophils # (A) 0.4 k/uL (0-0.7); Eosinophils % (A) 6 %; HCT 31.2 % (34.0-46.0); HGB 9.5 gm/dL (11.4-16.0); Hypochromasia Marked; Lymphocytes # (A) 1.1 k/uL (1.0-4.8); Lymphocytes % (A) 19 %; MCHC 30.5 g/dL (31.0-37.0); MCV 88.6 fL (80.0-100.0); Monocytes # (A) 0.7 k/uL (0-1.0); Monocytes % (A) 11 %; Neutrophils # (A) 3.6 k/uL (1.3-7.7); Neutrophils % (A) 59 %; Platelet Count 174 k/uL (150-450); RBC 3.52 m/uL (3.80-5.40); RDW 14.5 % (11.5-15.5)
[2022-06-23 08:10] LABS: Calcium 7.9 mg/dL (8.4-10.2)
[2022-06-23] MEDS: FUROSEMIDE 40 MG TAB PO SCH ×2 (08:50→16:36)
[2022-06-23] MEDS: hydrALAZINE HCL 50 MG TAB PO SCH ×2 (08:50→16:36)
[2022-06-23] MEDS: SPIRONOLACTONE 25 MG TAB PO SCH (08:50)
[2022-06-23] MEDS: CLOPIDOGREL 75 MG TAB PO SCH (08:50)
[2022-06-23] MEDS: ISOSORBIDE MONONITRATE ER 60 MG TAB.ER.24H PO SCH (08:50)
[2022-06-23] MEDS: amLODIPine 5 MG TAB PO SCH (08:50)
[2022-06-23] MEDS: ACETAMINOPHEN TAB 325 MG TAB PO PRN (08:52)
--- NOTE | 2022-06-23 10:17 | P.PN ---
Subjective Progress Note Date: 06/23/22 HISTORY OF PRESENT ILLNESS: Hypertension emergency The patient is a pleasant 81-year-old female patient with a past medical history significant for valvular heart disease with known severe aortic stenosis status post transcutaneous aortic valve replacement was performed in 2021, heart failure with preserved ejection fraction, mild nonobstructive coronary artery disease based on recent heart catheterization, hypertension, dyslipidemia, paroxysmal atrial fibrillation, as well as history of pulmonary involving us in. We requested to see the patient as a consult here for further evaluation off heart failure. Patient has multiple hospital admissions with congestive heart failure. She was in her usual state of health until about 3 days ago when she started experiencing progressive exertional dyspnea with no associated lower extremities edema and no associated chest pain or chest discomfort and no dizziness or lightheadedness and no feeling of heart racing or fluttering or presyncope or syncope. No symptoms of fever or chills and no cough or sputum production. Her daughter brought her to the emergency department for further investigation. She underwent a chest x-ray which showed finding consistent with heart failure. She underwent an EKG which showed sinus rhythm. Her troponin is a slightly elevated but she is normal at 24. She also underwent and the proBNP which came in to be 4000. Beside that when she presented to the emergency department she was found to be hypertensive and initially she was started on nitro drip. The patient stated that she has been compliant with her medications except the hydralazine. She has not taken it. She also stated that she has been eating food through an agency and clearly the foot is not helping and has high sodium. The most recent echo from 2021 revealed normal left ventricular systolic function with normally functioning transcatheter valve. The patient was seen and examined this morning clearly she is in heart failure with crackles bilaterally and mild bilateral lower extremities edema noted also examination. Currently also she is hypoxic requiring 2 L of oxygen to maintain saturation above 90 June [id number] The patient was seen this morning. Overall she seems to be better. She is on Lasix IV and she has been diuresing very well. Currently she is on 2 L oxygen. On examination she seems to be euvolemic with diminished breathing sounds bilaterally. The pressure continues to be elevated. I'm going to increase the dose of hydralazine 200 mg by mouth 3 times a day. Continue monitor the pressure and adjust her medications or add medications 2. Meanwhile I would advise continue IV Lasix for at least additional 24 hours. We'll continue following up with the patient June [id number] The patient was seen and examined this morning. She is doing better overall. Shortness of breath has improved significantly and she has clear breathing sounds bilaterally. The lower extremity edema has improved significantly as well as. The blood pressure also has improved significantly. Her saturation has been normal without oxygen. From the cardiac standpoint of view, we will continue the current medical regimen with possible discharge in the next 12-24 hours. She was advised to be compliant with her medications as well as with her low-sodium diet. 06/19/2022 Patient examined this morning at the bedside. Patient denies chest pain or pressure. Denies SOB. Telemetry reveals sinus mechanism with a heart rate in the 50s. Blood pressure in the 150s. She remains on IV lasix. She does not appear to be volume overloaded, however, she continues to report SOB with minimal exertion. Creatinine today 1.4, down from 1.6. 06/20/2022 Patient examined this morning at the bedside. Patient denies chest pain or pressure. Denies SOB. Patient remains on IV lasix. Vital signs are stable. 06/21/2022 Patient examined this morning at the bedside. Patient denies chest pain or pressure. Denies SOB. She has been transitioned to oral lasix. Patient reports having a bad nightmare in the middle of the night. Her blood pressure was found to be elevated around 200. She was given a dose of Procardia. Blood pressure improved this morning. 06/22/2022 Patient examined this morning at the bedside. Patient denies chest pain or pressure. She denies shortness of breath. Vital signs are stable. Blood pressure with a systolic in the 140s. 06/23/2022 Patient examined this morning at the bedside. Patient denies chest pain or pressure. She denies shortness of breath. Vital signs are stable. Blood pressure with a systolic in the 130-140s. PHYSICAL EXAM: VITAL SIGNS: Reviewed. GENERAL: Well-developed in no acute distress. NECK: Supple. No JVD or thyromegaly LUNGS: Respirations even and unlabored. Lungs diminished at the bases. HEART: Regular rate and rhythm. S1 and S2 heard. + systolic murmur. EXTREMITIES: Normal range of motion. No clubbing or cyanosis. Peripheral pulses intact. No lower extremity edema ASSESSMENT: Shortness of breath Acute on chronic heart failure with preserved ejection fraction Hypertensive emergency Acute on chronic kidney disease History of TAVR Abnormal troponins, not suggestive of ACS Nonobstructive coronary artery disease History of pulmonary embolism History of medication noncompliance History of noncompliance with diet PLAN: Continue current cardiac medications Patient is currently stable for discharge from a cardiac standpoint Patient to follow up outpatient with Dr. Hernandez Further recommendations pending patient course Nurse practitioner note has been reviewed by physician. Signing provider agrees with the documented findings, assessment, and plan of care. Objective - Vital Signs Vital signs: Vital Signs Temp 97.6 F 06/23/22 04:00 Pulse 59 L 06/23/22 08:00 Resp 16 06/23/22 08:00 BP 140/61 06/23/22 08:00 Pulse Ox 96 06/23/22 08:00 FiO2 50 06/15/22 16:03 Intake & Output 06/22/22 06/23/22 06/23/22 18:59 06:59 18:59 Intake Total 354 Output Total 0 0 Balance 354 0 Weight 87.3 kg Intake: Oral 354 Output: Stool 0 0 Other: Voiding Method Toilet Toilet # Voids 2 1 - Labs CBC & Chem 7: 06/23/22 07:40 06/23/22 07:40 Labs: Abnormal Lab Results - Last 24 Hours (Table) 06/22/22 06/22/22 06/22/22 Range/Units 11:17 11:17 11:42 RBC 3.37 L (3.80-5.40) m/uL Hgb 9.4 L (11.4-16.0) gm/dL Hct 29.8 L (34.0-46.0) % MCHC (31.0-37.0) g/dL Lymphocytes # 0.9 L (1.0-4.8) k/uL Sodium 136 L (137-145) mmol/L Chloride 94 L (98-107) mmol/L Carbon Dioxide 34 H (22-30) mmol/L BUN 53 H (7-17) mg/dL Creatinine 1.60 H (0.52-1.04) mg/dL Glucose 222 H (74-99) mg/dL POC Glucose (mg/dL) 219 H (70-110) mg/dL Calcium 7.9 L (8.4-10.2) mg/dL 06/22/22 06/22/22 06/23/22 Range/Units 16:36 20:01 06:03 RBC (3.80-5.40) m/uL Hgb (11.4-16.0) gm/dL Hct (34.0-46.0) % MCHC (31.0-37.0) g/dL Lymphocytes # (1.0-4.8) k/uL Sodium (137-145) mmol/L Chloride (98-107) mmol/L Carbon Dioxide (22-30) mmol/L BUN (7-17) mg/dL Creatinine (0.52-1.04) mg/dL Glucose (74-99) mg/dL POC Glucose (mg/dL) 253 H 177 H 264 H (70-110) mg/dL Calcium (8.4-10.2) mg/dL 06/23/22 06/23/22 Range/Units 07:40 07:40 RBC 3.52 L (3.80-5.40) m/uL Hgb 9.5 L (11.4-16.0) gm/dL Hct 31.2 L (34.0-46.0) % MCHC 30.5 L (31.0-37.0) g/dL Lymphocytes # (1.0-4.8) k/uL Sodium (137-145) mmol/L Chloride 95 L (98-107) mmol/L Carbon Dioxide 36 H (22-30) mmol/L BUN 55 H (7-17) mg/dL Creatinine 1.72 H (0.52-1.04) mg/dL Glucose 246 H (74-99) mg/dL POC Glucose (mg/dL) (70-110) mg/dL Calcium 7.9 L (8.4-10.2) mg/dL
--- NOTE | 2022-06-23 10:58 | P.PN ---
Subjective Patient is seen for follow-up for acute kidney injury on top of chronic kidney disease. Patient is admitted with volume overload. She has been diuresed. Overall feeling better Serum creatinine staying at 1.4-1.6 mg/dL now. Switched to oral diuretics. Blood pressure was elevated due to nightmare. Currently much better controlled. Started on Aldactone. Objective - Vital Signs Vital signs: Vital Signs Temp 97.6 F 06/23/22 04:00 Pulse 59 L 06/23/22 08:00 Resp 16 06/23/22 08:00 BP 140/61 06/23/22 08:00 Pulse Ox 96 06/23/22 08:00 FiO2 50 06/15/22 16:03 Intake & Output 06/22/22 06/23/22 06/23/22 18:59 06:59 18:59 Intake Total 354 Output Total 0 0 Balance 354 0 Weight 87.3 kg Intake: Oral 354 Output: Stool 0 0 Other: Voiding Method Toilet Toilet Toilet # Voids 2 1 - Exam Patient is comfortable awake not in any acute distress Examination of the heart S1 and S2 Examination of the lungs bilateral breath sounds are heard Abdomen is soft nontender Examination of lower extremities shows no evidence of edema 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 - Labs CBC & Chem 7: 06/23/22 07:40 06/23/22 07:40 Labs: Abnormal Lab Results - Last 24 Hours (Table) 06/22/22 06/22/22 06/22/22 Range/Units 11:17 11:17 11:42 RBC 3.37 L (3.80-5.40) m/uL Hgb 9.4 L (11.4-16.0) gm/dL Hct 29.8 L (34.0-46.0) % MCHC (31.0-37.0) g/dL Lymphocytes # 0.9 L (1.0-4.8) k/uL Sodium 136 L (137-145) mmol/L Chloride 94 L (98-107) mmol/L Carbon Dioxide 34 H (22-30) mmol/L BUN 53 H (7-17) mg/dL Creatinine 1.60 H (0.52-1.04) mg/dL Glucose 222 H (74-99) mg/dL POC Glucose (mg/dL) 219 H (70-110) mg/dL Calcium 7.9 L (8.4-10.2) mg/dL 06/22/22 06/22/22 06/23/22 Range/Units 16:36 20:01 06:03 RBC (3.80-5.40) m/uL Hgb (11.4-16.0) gm/dL Hct (34.0-46.0) % MCHC (31.0-37.0) g/dL Lymphocytes # (1.0-4.8) k/uL Sodium (137-145) mmol/L Chloride (98-107) mmol/L Carbon Dioxide (22-30) mmol/L BUN (7-17) mg/dL Creatinine (0.52-1.04) mg/dL Glucose (74-99) mg/dL POC Glucose (mg/dL) 253 H 177 H 264 H (70-110) mg/dL Calcium (8.4-10.2) mg/dL 06/23/22 06/23/22 Range/Units 07:40 07:40 RBC 3.52 L (3.80-5.40) m/uL Hgb 9.5 L (11.4-16.0) gm/dL Hct 31.2 L (34.0-46.0) % MCHC 30.5 L (31.0-37.0) g/dL Lymphocytes # (1.0-4.8) k/uL Sodium (137-145) mmol/L Chloride 95 L (98-107) mmol/L Carbon Dioxide 36 H (22-30) mmol/L BUN 55 H (7-17) mg/dL Creatinine 1.72 H (0.52-1.04) mg/dL Glucose 246 H (74-99) mg/dL POC Glucose (mg/dL) (70-110) mg/dL Calcium 7.9 L (8.4-10.2) mg/dL Assessment and Plan Assessment: 1. Acute kidney injury, cardiorenal currently nonoliguric and improved 2. Chronic kidney disease NKF stage IIIB with previous creatinine 1.5-1.3 mg/dL etiology is nephrosclerosis 3. Recent acute kidney injury with serum creatinine up to 1.8 in April 2022 and improved with creatinine down to 1.34 a few days later. 4. Acute on chronic diastolic CHF. Ejection fraction 50-55% with moderately increased left ventricular wall thickness 5. hypertension with CK D stage III 6. Chronic A. fib maintained on eliquis 7. Hypertension with elevated blood pressure secondary to nightmare per patient. Currently improved. Plan: Continue Aldactone and current dose of Lasix Monitor for hypotension at home Follow-up as outpatient in about 1-2 weeks' time.
--- NOTE | 2022-06-23 11:01 | P.PN ---
Subjective Progress Note Date: 06/22/22 81-year-old female, with history of hypertension, hyperlipidemia, diabetes mellitus, hypothyroidism, atrial fibrillation, COPD, CHF, presents to the emergency department. Patient felt to be hypoxic in the 70s by paramedics. She was placed on a nonrebreather but did not report improvement. She was placed on CPAP for transport. She is able to answer some simple questions. No fever. No chest pain. According to family she had been doing quite well this morning but had missed taking her blood pressure medication. Initial blood pressure upon arrival is 210/110. She is in severe respiratory distress. In the ED patient was found to be hypotensive and in flash pulmonary edema; chest x-ray revealed bilateral pulmonary edema and pleural effusions; lab review shows a WBC of 11.5, hemoglobin of 11.6 and platelet count of 307, sodium 139, potassium 5.1, BUN/creatinine of 26/1.2 and blood glucose of 374; troponin is mildly elevated at 0.320 EKG Findings:: EKG: Says bradycardia, low voltage, rate of 55, OR interval 146, QRS duration 116, QTC 477, no ST segment elevation 06/18/2022 Patient is seen and evaluated in room at bedside; reports marked weakness when ambulating to the bathroom Vital signs are reviewed and remained stable; lab review shows creatinine trending up to 1.6 this morning from 1.2 on admission; patient has been on diuretics for CHF exacerbation; we will consult nephrology Hyperglycemia is improving with addition of Levemir; we will continue to monitor Accu-Cheks every seen at bedtime and adjust therapy as needed Reports marked debility and PT/OT have been consulted for discharge planning 06/19/2021 Patient dyspnea is improving, no large basilar crepitations. Patient is still mildly fluid overloaded and continue with IV Lasix. This Creatinine is 1.49, patient with evidence of chronic kidney disease stage III and baseline 1.2-1.7. Glucose is 235-443. Increase Levemir 20 units at NovoLog 7 units with meals Check labs in the morning. 06/20/2022 Patient breathing is improving. Her IV Lasix switched to oral dose Glucose is better controlled on Levemir 20 units and neck crease NovoLog 7 to 9 units. Blood pressure still slightly elevated. Patient can be discharged home, however she is pending placement, discussed with professor of social work 06-21-22 Patient remains clinically stable, she is fully awake and oriented Patient states during the night she had nightmare, at that time her blood pressure went up with systolic more than 200, public policy analyst on-call give her nifedipine gel which is discontinued later and she was placed on Norvasc and Aldactone by public policy analyst and awake overnight counselor, currently her blood pressure is stable. Last reading 118/61, she has mild asymptomatic bradycardia at 54-57. Glucose went up to 100-400, we'll increase her NovoLog 7 up to 9 units and Levemir 22 up to 25 units Patient is cleared by all consults is occluded pulmonary, awake overnight counselor and public policy analyst Patient accepted by longterm pending insurance authorization Keep monitoring glucose and blood pressure. 06/22/2022 Patient is currently resting in bed. Awake alert and oriented 2-3. Requiring oxygen at 2 L with nasal cannula. Blood pressure is better controlled. No complaints of chest pain or worsening shortness of breath. No nausea vomiting or abdominal pain or diarrhea. No cough or sputum production. Patient has been afebrile. Hypoglycemic and is being continued as listed insulin along with insulin regimen. Laboratory data showed WBC 6.0 hemoglobin 9.4 and platelets 172 Sodium 136 potassium 4.1 chloride 94 bicarb is 34 BUN 20. Creatinine 1.6 and blood sugar is 222 PT OT is following and patient will need rehab transfer. Current medications reviewed. Objective - Vital Signs Vital signs: Vital Signs Temp 98.2 F 06/22/22 08:45 Pulse 60 06/22/22 16:10 Resp 17 06/22/22 16:10 BP 138/57 06/22/22 16:10 Pulse Ox 98 06/22/22 16:10 FiO2 50 06/15/22 16:03 Intake & Output 06/22/22 06/22/22 06/23/22 06:59 18:59 06:59 Intake Total 237 354 Output Total 0 0 Balance 237 354 Intake: Oral 237 354 Output: Stool 0 0 Other: Voiding Method Toilet Toilet # Voids 1 2 - Exam - Exam GENERAL: The patient is alert and oriented x3, not in any acute distress. Well developed, well nourished. HEENT: Pupils are round and equally reacting to light. EOMI. No scleral icterus. No conjunctival pallor. Normocephalic, atraumatic. No pharyngeal erythema. No t hyromegaly. CARDIOVASCULAR: S1 and S2 present. No murmurs, rubs, or gallops. PULMONARY: Chest is clear to auscultation, no wheezing or crackles. ABDOMEN: Soft, nontender, nondistended, normoactive bowel sounds. No palpable organomegaly. MUSCULOSKELETAL: No joint swelling or deformity. EXTREMITIES: No cyanosis, clubbing, or pedal edema. NEUROLOGICAL: Gross neurological examination did not reveal any focal deficits. SKIN: No rashes. no petechiae. - Labs CBC & Chem 7: 06/23/22 07:40 06/23/22 07:40 Labs: Abnormal Lab Results - Last 24 Hours (Table) 06/22/22 06/22/22 06/22/22 Range/Units 05:41 11:17 11:17 RBC 3.37 L (3.80-5.40) m/uL Hgb 9.4 L (11.4-16.0) gm/dL Hct 29.8 L (34.0-46.0) % Lymphocytes # 0.9 L (1.0-4.8) k/uL Sodium 136 L (137-145) mmol/L Chloride 94 L (98-107) mmol/L Carbon Dioxide 34 H (22-30) mmol/L BUN 53 H (7-17) mg/dL Creatinine 1.60 H (0.52-1.04) mg/dL Glucose 222 H (74-99) mg/dL POC Glucose (mg/dL) 289 H (70-110) mg/dL Calcium 7.9 L (8.4-10.2) mg/dL 06/22/22 06/22/22 06/22/22 Range/Units 11:42 16:36 20:01 RBC (3.80-5.40) m/uL Hgb (11.4-16.0) gm/dL Hct (34.0-46.0) % Lymphocytes # (1.0-4.8) k/uL Sodium (137-145) mmol/L Chloride (98-107) mmol/L Carbon Dioxide (22-30) mmol/L BUN (7-17) mg/dL Creatinine (0.52-1.04) mg/dL Glucose (74-99) mg/dL POC Glucose (mg/dL) 219 H 253 H 177 H (70-110) mg/dL Calcium (8.4-10.2) mg/dL Assessment and Plan Assessment: 1. Acute exacerbation CHF with preserved EF; patient will be continued on Lasix 40 mg by mouth every 12 hours; we will monitor strict FRANKLIN's, daily weights, low salt and fluid restricted diet - Cardiology and pulmonary on board and agreeable with plan of care. 2. Hypertensive emergency; noncompliance with medication; cardiology recommending to restart patient on home medications along with hydralazine 100 mg 3 times a day and continue to monitor blood pressure closely for further adjustment. Norvasc and Aldactone added. Keep monitor blood pressure . Blood pressure is better controlled now. 3. Elevated troponin; chronic evidence of myocardial injury with no evidence of acute ischemia; repeat echocardiogram was not recommended given patient had recent echocardiogram completed 4. Acute hypoxemic respiratory failure related to flash pulmonary edema; patient did respond well to diuresis; currently maintaining O2 saturation above 92% on 2 L O2 per nasal cannula 5. Chronic atrial fibrillation; remains rate controlled on Coreg 25 mg twice a day; anticoagulated with Eliquis 5 mg twice a day 6. Diabetes mellitus with hyperglycemia,; monitor Accu-Cheks before meals and at bedtime with insulin sliding scale. Increase NovoLog 9 units was male and Levemir 25 units. Patient is on insulin 7030 at home. 7. Hyperlipidemia; Lipitor 80 mg by mouth daily at bedtime 8. Hypothyroidism; levothyroxine 125 MCG daily 9. Chronic kidney disease stage III; stable at baseline 10. Sleep apnea; continue with home CPAP therapy PTOT consulted possible discharge to rehab. Time with Patient: Greater than 30
[2022-06-23 11:56] LABS: Glucose,Whole Blood 202 mg/dL (70-110)
[2022-06-23 16:29] LABS: Glucose,Whole Blood 257 mg/dL (70-110)
[2022-06-23 16:43] VITALS: BP 146/62; PULSE 59
== END 2022-06-23 18:51 | disposition home health service (06) | DRG 291 ==
LOC: EC 15:51 → 3SCARD 17:05
PROVIDERS: ADMIT Hospitalist; ATTEND Hospitalist
PROC: 5A09357 Assistance with Respiratory Ventilation, Less than 24 Consecutive Hours, Continuous Positive Airway Pressure (ICD-10-PCS; principal; 2022-06-15)
DX: I13.0 Hypertensive heart and chronic kidney disease with heart failure and stage 1 through stage 4 chronic kidney disease, or unspecified chronic kidney disease (principal); I50.33 Acute on chronic diastolic (congestive) heart failure; J96.01 Acute respiratory failure with hypoxia; I16.1 Hypertensive emergency; I48.20 Chronic atrial fibrillation, unspecified; N17.9 Acute kidney failure, unspecified; E03.9 Hypothyroidism, unspecified; E11.22 Type 2 diabetes mellitus with diabetic chronic kidney disease; E11.65 Type 2 diabetes mellitus with hyperglycemia; E78.5 Hyperlipidemia, unspecified; G47.30 Sleep apnea, unspecified; I25.10 Atherosclerotic heart disease of native coronary artery without angina pectoris; I35.0 Nonrheumatic aortic (valve) stenosis; I48.0 Paroxysmal atrial fibrillation; I50.82 Biventricular heart failure; I5A Non-ischemic myocardial injury (non-traumatic); J44.9 Chronic obstructive pulmonary disease, unspecified; N18.32 Chronic kidney disease, stage 3b; Z95.2 Presence of prosthetic heart valve; Z77.22 Contact with and (suspected) exposure to environmental tobacco smoke (acute) (chronic); M54.9 Dorsalgia, unspecified; G89.29 Other chronic pain; E55.9 Vitamin D deficiency, unspecified; Z28.311 Partially vaccinated for COVID-19; Z79.01 Long term (current) use of anticoagulants; Z79.02 Long term (current) use of antithrombotics/antiplatelets; Z79.4 Long term (current) use of insulin; Z79.51 Long term (current) use of inhaled steroids; Z79.84 Long term (current) use of oral hypoglycemic drugs; Z79.890 Hormone replacement therapy; Z79.899 Other long term (current) drug therapy; Z82.49 Family history of ischemic heart disease and other diseases of the circulatory system; Z80.6 Family history of leukemia; Z86.711 Personal history of pulmonary embolism; Z86.73 Personal history of transient ischemic attack (TIA), and cerebral infarction without residual deficits; Z87.01 Personal history of pneumonia (recurrent); Z91.119 Patient's noncompliance with dietary regimen due to unspecified reason; Z85.828 Personal history of other malignant neoplasm of skin; Z71.3 Dietary counseling and surveillance; G47.33 Obstructive sleep apnea (adult) (pediatric); Z98.84 Bariatric surgery status; Z88.1 Allergy status to other antibiotic agents; Z88.5 Allergy status to narcotic agent; Z88.2 Allergy status to sulfonamides; Z88.8 Allergy status to other drugs, medicaments and biological substances
CPT/HCPCS: 36415; 71045; 80048; 80053; 83605; 83735; 83880; 84145; 84484; 85025; 85610; 85730; 93005; 94640; 94660; 94760; 96374; 96375; 99291

== ENCOUNTER 2022-08-07 15:31 | Inpatient (IN) | payer OTHER, MEDICARE ==
--- NOTE | 2022-08-07 16:20 | ED ---
General Adult HPI - General Chief complaint: Abdominal Pain Stated complaint: GI Bleed Time Seen by Provider: 08/07/22 16:10 Source: EMS, RN notes reviewed Mode of arrival: EMS Limitations: no limitations - History of Present Illness Initial comments: 81-year-old female with a past medical history COPD, HTN, DM T II presents to the emergency department via EMS for rectal bleeding. She notes that her dark stools started yesterday. She was evaluated at an urgent care who told her that She looked pale and and arranged for EMS for transport to the hospital. She admits she has recieved blood transfusions in the past. She denies abdominal pain, fevers, nausea, vomiting, dizziness, lightheadedness, limitations, shortness of breath. She does report taking iron. She admits to taking plavix and eliquis. - Related Data Home Medications Medication Instructions Recorded Confirmed Atorvastatin [Lipitor] 80 mg PO HS 06/30/18 06/15/22 Sertraline [Zoloft] 25 mg PO DAILY 08/30/21 06/15/22 Artificial Tears-Hypromellose 1 drop BOTH EYES TID PRN 09/24/21 06/15/22 [Artificial Tear Drops] Isosorbide Mononitrate ER [Imdur] 60 mg PO DAILY 09/24/21 06/15/22 Levothyroxine Sodium [Synthroid] 125 mcg PO DAILY 12/01/21 06/15/22 Magnesium Oxide [Mag-Ox] 400 mg PO DAILY 12/01/21 06/15/22 Melatonin [Melatonin ER] 10 mg PO HS 12/01/21 06/15/22 polyethylene glycoL 3350 [Miralax] 17 gm PO DAILY PRN 12/01/21 06/15/22 Ferrous Sulfate [Feosol] 325 mg PO DAILY 03/02/22 06/15/22 Cholecalciferol [Vitamin D3 (25 25 mcg PO DAILY 04/04/22 06/15/22 Mcg = 1000 Iu)] Furosemide [Lasix] 40 mg PO BID@0900,1600 04/04/22 06/15/22 Omeprazole [PriLOSEC] 40 mg PO DAILY 04/04/22 06/15/22 Pioglitazone [Actos] 15 mg PO DAILY 04/05/22 06/15/22 Docusate [Colace] 100 mg PO DAILY 04/19/22 06/15/22 Insuln Asp Prt/Insulin Aspart 30 unit SQ AC-BRKFST 05/01/22 06/15/22 [NovoLOG MIX 70-30 VIAL] Budesonide/Formoterol Fumarate 2 puff INHALATION RT-BID 06/15/22 06/15/22 [Symbicort 160-4.5 Mcg Inhaler] Nystatin/Triamcin 1 applic TOPICAL TID 06/15/22 06/15/22 [Nystatin-Triamcinolone Cream] busPIRone HCl [Buspar] 10 mg PO BID 06/15/22 06/15/22 Previous Rx's Medication Instructions Recorded Acetaminophen Tab [Tylenol] 650 mg PO Q4H PRN #60 tab 12/21/21 Insuln Asp Prt/Insulin Aspart 20 unit SQ AC-SUPPER 30 Days #5 12/21/21 [NovoLOG MIX 70-30 VIAL] each Albuterol Inhaler [Ventolin Hfa 2 puff INHALATION RT-Q6H PRN #1 04/14/22 Inhaler] each Apixaban [Eliquis] 5 mg PO BID@0700,1600 tab 04/27/22 carvediloL [Coreg*] 25 mg PO BID-W/MEALS 30 Days #120 04/27/22 tab Clopidogrel [Plavix] 75 mg PO DAILY #30 tablet 05/29/22 Spironolactone [Aldactone] 25 mg PO DAILY #30 tab 06/23/22 amLODIPine [Norvasc] 5 mg PO DAILY #30 tab 06/23/22 hydrALAZINE HCL [Apresoline] 100 mg PO TID #90 tab 06/23/22 Allergies Allergy/AdvReac Type Severity Reaction Status Date / Time azithromycin Allergy Rash/Hives Verified 06/15/22 17:36 [From Zithromax Z-Jeanmarie] methylprednisolone Allergy Rash/Hives Verified 06/15/22 17:36 [From Medrol] sulfamethoxazole Allergy Rash/Hives Verified 06/15/22 17:36 [From Bactrim] trimethoprim [From Bactrim] Allergy Rash/Hives Verified 06/15/22 17:36 hydrochlorothiazide AdvReac Unknown Verified 06/15/22 17:36 hydrocodone AdvReac Hallucinati Verified 06/15/22 17:36 ons Review of Systems ROS Statement: Those systems with pertinent positive or pertinent negative responses have been documented in the HPI. ROS Other: All systems not noted in ROS Statement are negative. Past Medical History Past Medical History: Atrial Fibrillation, Cancer, Chest Pain / Angina, Heart Failure, COPD, CVA/TIA, Diabetes Mellitus, Hyperlipidemia, Hypertension, Osteoarthritis (OA), Pneumonia, Renal Disease, Sleep Apnea/CPAP/BIPAP, Syncope, Thyroid Disorder Additional Past Medical History / Comment(s): Severe aortic stenosis with a previous TAVR, nonocclusive coronary artery disease, diabetes mellitus type 2, paroxysmal atrial fibrillation, previous pulmonary embolism based on a intermediate probability VQ scan with a negative Dopplers, obstructive sleep apnea, chronic stage III kidney disease, hypertension, hyperlipidemia, previous history of CVA, previous history of compression fracture of T12 spine, chronic back pain, chronic anemia, hypothyroidism, vitamin D deficiency, skin cancer that has been resected, previous history of pneumonia with sepsis, previous history of right-sided pleural effusion requiring thoracentesis, previous history of CVA back in 2012 History of Any Multi-Drug Resistant Organisms: None Reported Past Surgical History: Adenoidectomy, Back Surgery, Bariatric Surgery, Cholecystectomy, Heart Catheterization, Hysterectomy, Tonsillectomy Additional Past Surgical History / Comment(s): 03/2022 TAVR, Cardiac caths 2 , lap band placed/since removed, low back surgery, L carpal tunnel release X2, pain clinic procedures, skin cancer removal, colonoscopies, bilateral cataract removals/lens implants. Past Anesthesia/Blood Transfusion Reactions: Previous Problems w/ Anesthesia Additional Past Anesthesia/Blood Transfusion Reaction / Comment(s): "Had too much anesthesia in 2007 for lap band removal, had to be bagged." Past Psychological History: Depression Smoking Status: Never smoker Past Alcohol Use History: None Reported Past Drug Use History: None Reported - Past Family History Sister(s) Family Medical History: Myocardial Infarction ([place]) Brother(s) Family Medical History: Cancer Additional Family Medical History / Comment(s): Colon Cancer. Mother Family Medical History: Dementia Additional Family Medical History / Comment(s): Mother of dementia at the age of 89yrs. Father Family Medical History: Cancer Additional Family Medical History / Comment(s): Pt states her father was treated for a sinus infection but really had leukemia and of this at the age of 72 yrs. General Exam Limitations: no limitations General appearance: alert, in no apparent distress Head exam: Present: atraumatic, normocephalic, normal inspection Eye exam: Present: normal appearance, PERRL, EOMI. Absent: scleral icterus, conjunctival injection, periorbital swelling ENT exam: Present: normal exam, mucous membranes moist Neck exam: Present: normal inspection. Absent: tenderness, meningismus, lymphadenopathy Respiratory exam: Present: normal lung sounds bilaterally. Absent: respiratory distress, wheezes, rales, rhonchi, stridor Cardiovascular Exam: Present: normal rhythm, bradycardia, normal heart sounds. Absent: systolic murmur, diastolic murmur, rubs, gallop, clicks GI/Abdominal exam: Present: soft, normal bowel sounds. Absent: distended, tenderness, guarding, rebound, rigid Extremities exam: Present: normal inspection, full ROM, normal capillary refill. Absent: tenderness, pedal edema, joint swelling, calf tenderness Back exam: Present: normal inspection Neurological exam: Present: alert, oriented X3, CN II-XII intact Psychiatric exam: Present: normal affect, normal mood Skin exam: Present: warm, dry, intact, normal color, pallor. Absent: rash Course Vital Signs 08/07/22 08/07/22 08/07/22 15:42 17:13 18:18 Temperature 98.5 F Pulse Rate 56 L 53 L 54 L Respiratory 18 18 18 Rate Blood Pressure 137/67 145/62 135/57 O2 Sat by Pulse 99 100 100 Oximetry Medical Decision Making - Medical Decision Making 81-year-old female presenting to the emergency department for blood in stools. Pt was seen and evaluated in the emergency department. Physical exam reveals a pleasant, pale pt with essentially unremarkable physical exam. labs remarkable for WBC is 11.4, hemoglobin 8.2, sodium 129, BUN 72 creatinine 2.18, Covid flu RSV negative. Patient given 500 cc's of fluid bolus (history of CHF), and 80 of protonix with symtomatic relief. My decision to admit the patient for further evaluation. Spoke with Maida from [facility] who agrees and accepts the patient for admission with consult to Dr. Goel. Case discussed with Dr. Sher, [facility] who agrees with plan for admission. - Lab Data Result diagrams: 08/07/22 16:29 08/07/22 16:29 Lab Results 08/07/22 08/07/22 08/07/22 Range/Units 16:29 16:29 16:29 WBC 11.4 H (3.8-10.6) k/uL RBC 2.81 L (3.80-5.40) m/uL Hgb 8.2 L (11.4-16.0) gm/dL Hct 24.5 L (34.0-46.0) % MCV 87.3 (80.0-100.0) fL MCH 29.1 (25.0-35.0) pg MCHC 33.3 (31.0-37.0) g/dL RDW 15.2 (11.5-15.5) % Plt Count 273 (150-450) k/uL MPV 8.8 Neutrophils % 74 % Lymphocytes % 9 % Monocytes % 10 % Eosinophils % 3 % Basophils % 0 % Neutrophils # 8.4 H (1.3-7.7) k/uL Lymphocytes # 1.1 (1.0-4.8) k/uL Monocytes # 1.2 H (0-1.0) k/uL Eosinophils # 0.3 (0-0.7) k/uL Basophils # 0.1 (0-0.2) k/uL Hypochromasia Slight Sodium 129 L (137-145) mmol/L Potassium 4.9 (3.5-5.1) mmol/L Chloride 93 L (98-107) mmol/L Carbon Dioxide 27 (22-30) mmol/L Anion Gap 9 mmol/L BUN 72 H (7-17) mg/dL Creatinine 2.18 H (0.52-1.04) mg/dL Est GFR (CKD-EPI)AfAm 24 (>60 ml/min/1.73 sqM) Est GFR (CKD-EPI)NonAf 21 (>60 ml/min/1.73 sqM) Glucose 392 H (74-99) mg/dL Calcium 8.5 (8.4-10.2) mg/dL Total Bilirubin 0.5 (0.2-1.3) mg/dL AST 22 (14-36) U/L ALT 21 (4-34) U/L Alkaline Phosphatase 106 (38-126) U/L Total Protein 6.3 (6.3-8.2) g/dL Albumin 3.7 (3.5-5.0) g/dL Influenza Type A (PCR) Not Detected (Not Detectd) Influenza Type B (PCR) Not Detected (Not Detectd) RSV (PCR) Not Detected (Not Detectd) SARS-CoV-2 (PCR) Not Detected (Not Detectd) Blood Type Blood Type Recheck Bld Type Recheck Status Antibody Screen Spec Expiration Date 08/07/22 Range/Units 16:29 WBC (3.8-10.6) k/uL RBC (3.80-5.40) m/uL Hgb (11.4-16.0) gm/dL Hct (34.0-46.0) % MCV (80.0-100.0) fL MCH (25.0-35.0) pg MCHC (31.0-37.0) g/dL RDW (11.5-15.5) % Plt Count (150-450) k/uL MPV Neutrophils % % Lymphocytes % % Monocytes % % Eosinophils % % Basophils % % Neutrophils # (1.3-7.7) k/uL Lymphocytes # (1.0-4.8) k/uL Monocytes # (0-1.0) k/uL Eosinophils # (0-0.7) k/uL Basophils # (0-0.2) k/uL Hypochromasia Sodium (137-145) mmol/L Potassium (3.5-5.1) mmol/L Chloride (98-107) mmol/L Carbon Dioxide (22-30) mmol/L Anion Gap mmol/L BUN (7-17) mg/dL Creatinine (0.52-1.04) mg/dL Est GFR (CKD-EPI)AfAm (>60 ml/min/1.73 sqM) Est GFR (CKD-EPI)NonAf (>60 ml/min/1.73 sqM) Glucose (74-99) mg/dL Calcium (8.4-10.2) mg/dL Total Bilirubin (0.2-1.3) mg/dL AST (14-36) U/L ALT (4-34) U/L Alkaline Phosphatase (38-126) U/L Total Protein (6.3-8.2) g/dL Albumin (3.5-5.0) g/dL Influenza Type A (PCR) (Not Detectd) Influenza Type B (PCR) (Not Detectd) RSV (PCR) (Not Detectd) SARS-CoV-2 (PCR) (Not Detectd) Blood Type B Positive Blood Type Recheck B Pos Bld Type Recheck Status No Antibody Screen NEGATIVE Spec Expiration Date 08/10/20222328 Disposition Clinical Impression: Upper gastrointestinal bleed Disposition: ADMITTED IP TO THIS [facility] Condition: Fair Referrals: Lokesh Ibarra MD [Primary Care Provider] - 1-2 days Time of Disposition: 18:27
[2022-08-07] MEDS ORDERED: SODIUM CHLORIDE 0.9% 500 ML 500 ML IV ONE (16:21)
[2022-08-07 16:47] LABS: Basophils # (A) 0.1 k/uL (0-0.2); Basophils % (A) 0 %; Eosinophils # (A) 0.3 k/uL (0-0.7); Eosinophils % (A) 3 %; HCT 24.5 % (34.0-46.0); HGB 8.2 gm/dL (11.4-16.0); Hypochromasia Slight; Lymphocytes # (A) 1.1 k/uL (1.0-4.8); Lymphocytes % (A) 9 %; MCH 29.1 pg (25.0-35.0); MCHC 33.3 g/dL (31.0-37.0); MCV 87.3 fL (80.0-100.0); Mean Platelet Volume 8.8; Monocytes # (A) 1.2 k/uL (0-1.0); Monocytes % (A) 10 %; Neutrophils # (A) 8.4 k/uL (1.3-7.7); Neutrophils % (A) 74 %; Platelet Count 273 k/uL (150-450); RBC 2.81 m/uL (3.80-5.40); RDW 15.2 % (11.5-15.5); WBC 11.4 k/uL (3.8-10.6)
[2022-08-07 16:56] LABS: Albumin 3.7 g/dL (3.5-5.0); Calcium 8.5 mg/dL (8.4-10.2); Potassium 4.9 mmol/L (3.5-5.1); Total Bilirubin 0.5 mg/dL (0.2-1.3); Total Protein 6.3 g/dL (6.3-8.2)
[2022-08-07] MEDS ORDERED: PANTOPRAZOLE 40 MG/10 ML VIAL IVP STA (17:17)
[2022-08-07] MEDS ORDERED: NALOXONE 0.4 MG/ML 1 ML VIAL IV PRN (18:23)
[2022-08-07 22:38] LABS: Glucose,Whole Blood 230 mg/dL (70-110)
[2022-08-08 07:22] LABS: Glucose,Whole Blood 167 mg/dL (70-110)
[2022-08-08] MEDS ORDERED: PANTOPRAZOLE 40 MG/10 ML VIAL IV SCH (09:00)
[2022-08-08 09:06] LABS: HCT 24.5 % (37.2-46.3); HGB 7.3 g/dL (12.0-15.0); MCH 26.6 pg (27.0-32.0); MCHC 29.8 g/dL (32.0-37.0); MCV 89.4 fL (80.0-97.0); Mean Platelet Volume 10.9 fL (9.5-12.2); NRBC Per 100 WBC 0 /100 WBCS (0.0-0.0); Platelet Count 254 X 10*3/uL (140-440); RBC 2.74 X 10*6/uL (4.10-5.20); RDW 15.5 % (11.5-14.5); WBC 10.46 X 10*3/uL (4.50-10.00)
[2022-08-08 09:21] LABS: African American GFR (CKD) 25.1 (60.0-200.0); Albumin 3.6 g/dL (3.8-4.9); Albumin/Globulin Ratio 1.71 (1.60-3.17); Anion Gap 10.2 mmol/L (10.00-18.00); BUN/Creat Ratio 30.76 Ratio (12.00-20.00); Blood Urea Nitrogen 64.6 mg/dL (9.0-27.0); Calcium 8.9 mg/dL (8.7-10.3); Carbon Dioxide 28.8 mmol/L (20.0-27.5); Globulin 2.1 g/dL (1.6-3.3); Non-African American GFR(CKD) 21.7 (60.0-200.0); Potassium 3.9 mmol/L (3.5-5.5); Total Bilirubin 0.3 mg/dL (0.30-1.20); Total Protein 5.7 g/dL (6.2-8.2)
[2022-08-08] MEDS ORDERED: DEXTROSE 50% SYRINGE 50 ML IVP PRN ×2 (09:53)
[2022-08-08 10:49] LABS: Basophils # (A) 0.04 X 10*3/uL (0.00-0.10); Basophils % (A) 0.4 %; Eosinophils # (A) 0.52 X 10*3/uL (0.04-0.35); Immature Grans, Automated 3.1 %; Lymphocytes # (A) 1.78 X 10*3/uL (0.90-5.00); Monocytes # (A) 1.89 X 10*3/uL (0.20-1.00); Monocytes % (A) 18.1 %; Neutrophils # (A) 5.91 X 10*3/uL (1.80-7.70); Neutrophils % (A) 56.4 %
[2022-08-08 11:20] LABS: Glucose,Whole Blood 161 mg/dL (70-110)
[2022-08-08] MEDS: INSULIN ASPART (NovoLOG) 100 UNIT/ML VIAL SQ SCH ×3 (11:46→21:19)
--- NOTE | 2022-08-08 12:59 | P.GSCN ---
History of Present Illness Consult date: 08/08/22 History of present illness: CHIEF COMPLAINT: Black stools HISTORY OF PRESENT ILLNESS: This is a 81-year-old female who was brought into the hospital via EMS due to black stools. Patient reports that she had black stools yesterday and has had 2 loose black stools this morning. She does report having some dizziness. And his been pale. Denies any abdominal pain. Denies any nausea or vomiting. She is on Eliquis and possibly Plavix at home. Patient had EGD and colonoscopy in November 2021 which did reveal gastritis and diverticulosis. Hemoglobin on admission is 8.2. She has been on oral iron at home. She is on blood thinners due to her history of atrial fibrillation and CVA. PAST MEDICAL HISTORY: See below PAST SURGICAL HISTORY: See below MEDICATIONS: See below ALLERGIES: See below SOCIAL HISTORY: No illicit drug use. REVIEW OF SYSTEMS: CONSTITUTIONAL: Denies fever or chills. HEENT: Denies blurred vision, vision changes, or eye pain. Denies hemoptysis CARDIOVASCULAR: Denies chest pain or pressure. RESPIRATORY: No shortness of breath. GASTROINTESTINAL: See HPI for pertinent findings HEMATOLOGIC: Denies bleeding disorders. GENITOURINARY: Denies any blood in urine or increased urinary frequency. SKIN: Denies pruitis. Denies rash. PHYSICAL EXAM: VITAL SIGNS: Reviewed GENERAL: Well-developed in no acute distress. HEENT: No sclera icterus. Extraocular movements grossly intact. Moist buccal mucosa. Head is atraumatic, normocephalic. No nasal drainage. ABDOMEN: Soft. Nondistended. Nontender NEUROLOGIC: Alert and oriented. Cranial nerves II through XII grossly intact. LABORATORY DATA: WBC 11.4 Hgb 8.2.to 7.3 platelets 254 na 139 potassium 3.9 creatinine is 2.1 BUN is 64 IMAGING: ASSESSMENT: 1. Acute GI bleed with black stools 2. Microcytic anemia 3. History of iron deficiency anemia 4. On daily blood thinners Eliquis and Plavix 5. History of gastritis and diverticulosis on EGD and colonoscopy in November 2021 PLAN: -Patient scheduled for EGD and colonoscopy on , 08/10/2022 -Full liquid diet today -Start GoLYTELY bowel prep tomorrow -Start clear liquid diet in a.m. -Hold Eliquis and Plavix -Continue to monitor hemoglobin -Continue to monitor for any signs or symptoms of bleeding -Continue PPI Thank you for this consultation Physician Manager Operations Research note has been reviewed by physician. Signing provider agrees with the documented findings, assessment, and plan of care. Past Medical History Past Medical History: Atrial Fibrillation, Cancer, Chest Pain / Angina, Heart Failure, COPD, CVA/TIA, Diabetes Mellitus, Hyperlipidemia, Hypertension, Osteoarthritis (OA), Pneumonia, Renal Disease, Sleep Apnea/CPAP/BIPAP, Syncope, Thyroid Disorder Additional Past Medical History / Comment(s): Severe aortic stenosis with a previous TAVR, nonocclusive coronary artery disease, diabetes mellitus type 2, paroxysmal atrial fibrillation, previous pulmonary embolism based on a intermediate probability VQ scan with a negative Dopplers, obstructive sleep apnea, chronic stage III kidney disease, hypertension, hyperlipidemia, previous history of CVA, previous history of compression fracture of T12 spine, chronic back pain, chronic anemia, hypothyroidism, vitamin D deficiency, skin cancer that has been resected, previous history of pneumonia with sepsis, previous history of right-sided pleural effusion requiring thoracentesis, previous history of CVA back in 2012 History of Any Multi-Drug Resistant Organisms: None Reported Past Surgical History: Adenoidectomy, Back Surgery, Bariatric Surgery, Cholecystectomy, Heart Catheterization, Hysterectomy, Tonsillectomy Additional Past Surgical History / Comment(s): 03/2022 TAVR, Cardiac caths , lap band placed/since removed, low back surgery, L carpal tunnel release X2, pain clinic procedures, skin cancer removal, colonoscopies, bilateral cataract removals/lens implants. Past Anesthesia/Blood Transfusion Reactions: Previous Problems w/ Anesthesia Additional Past Anesthesia/Blood Transfusion Reaction / Comm: "Had too much anesthesia in 2007 for lap band removal, had to be bagged." Past Psychological History: Depression Additional Psychological History / Comment(s): Pt resides alone. Pt uses a w alker. She is receiving home care thru [facility]. She is not driving anymore, her family takes her to [facility]. Her delia, Jennie, organizes her meds. Smoking Status: Never smoker Past Alcohol Use History: None Reported Past Drug Use History: None Reported - Past Family History Sister(s) Family Medical History: Myocardial Infarction ([place]) Brother(s) Family Medical History: Cancer Additional Family Medical History / Comment(s): Colon Cancer. Mother Family Medical History: Dementia Additional Family Medical History / Comment(s): Mother of dementia at the age of 89yrs. Father Family Medical History: Cancer Additional Family Medical History / Comment(s): Pt states her father was treated for a sinus infection but really had leukemia and of this at the age of 72 yrs. Medications and Allergies Home Medications Medication Instructions Recorded Confirmed Type Atorvastatin [Lipitor] 80 mg PO HS 06/30/18 08/07/22 History Sertraline [Zoloft] 25 mg PO DAILY 08/30/21 08/07/22 History Isosorbide Mononitrate ER [Imdur] 60 mg PO DAILY 09/24/21 08/07/22 History Levothyroxine Sodium [Synthroid] 125 mcg PO DAILY 12/01/21 08/07/22 History Melatonin [Melatonin ER] 10 mg PO HS 12/01/21 08/07/22 History Ferrous Sulfate [Feosol] 325 mg PO DAILY 03/02/22 08/07/22 History Furosemide [Lasix] 40 mg PO BID@0900,1600 04/04/22 08/07/22 History Pioglitazone [Actos] 15 mg PO DAILY 04/05/22 08/07/22 History carvediloL [Coreg*] 25 mg PO BID-W/MEALS 30 Days #120 04/27/22 08/07/22 Rx tab Clopidogrel [Plavix] 75 mg PO DAILY #30 tablet 05/29/22 08/07/22 Rx Spironolactone [Aldactone] 25 mg PO DAILY #30 tab 06/23/22 08/07/22 Rx amLODIPine [Norvasc] 5 mg PO DAILY #30 tab 06/23/22 08/07/22 Rx Apixaban [Eliquis] 5 mg PO DAILY 08/07/22 08/07/22 History Cholecalciferol (Vitamin D3) 125 mcg PO DAILY 08/07/22 08/07/22 History [Vitamin D3 (125 MCG = 5,000 IU)] Clotrimazole [Clotrimazole AF] 1 applic TOPICAL BID 08/07/22 08/07/22 History Dulaglutide [Trulicity] 0.5 ml SQ WEEKLY 08/07/22 08/07/22 History Insulin Degludec [Tresiba 25 units SQ DAILY 08/07/22 08/07/22 History Flextouch U-100 Pen] Zinc Oxide 20% Oint 1 applic TOPICAL BID 08/07/22 08/07/22 History hydrALAZINE HCL [Apresoline] 100 mg PO TID 08/07/22 08/07/22 History Allergies Allergy/AdvReac Type Severity Reaction Status Date / Time azithromycin Allergy Rash/Hives Verified 08/07/22 18:48 [From Zithromax Z-Jeanmarie] methylprednisolone Allergy Rash/Hives Verified 08/07/22 18:48 [From Medrol] sulfamethoxazole Allergy Rash/Hives Verified 08/07/22 18:48 [From Bactrim] trimethoprim [From Bactrim] Allergy Rash/Hives Verified 08/07/22 18:48 hydrochlorothiazide AdvReac Unknown Verified 08/07/22 18:48 hydrocodone AdvReac Hallucinati Verified 08/07/22 18:48 ons Surgical - Exam Vital Signs Temp Pulse Resp BP Pulse Ox 98.5 F 56 L 18 137/67 99 08/07/22 15:42 08/07/22 15:42 08/07/22 15:42 08/07/22 15:42 08/07/22 15:42 Results - Labs 08/08/22 06:18 08/08/22 06:18 Abnormal Lab Results - Last 24 Hours (Table) 08/07/22 08/07/22 08/07/22 Range/Units 16:29 16:29 22:36 WBC 11.4 H (3.8-10.6) k/uL RBC 2.81 L (3.80-5.40) m/uL Hgb 8.2 L (11.4-16.0) gm/dL Hct 24.5 L (34.0-46.0) % MCH (27.0-32.0) pg MCHC (32.0-37.0) g/dL RDW (11.5-14.5) % Neutrophils # 8.4 H (1.3-7.7) k/uL Monocytes # 1.2 H (0-1.0) k/uL Sodium 129 L (137-145) mmol/L Chloride 93 L (98-107) mmol/L Carbon Dioxide (20.0-27.5) mmol/L BUN 72 H (7-17) mg/dL Creatinine 2.18 H (0.52-1.04) mg/dL Est GFR (CKD-EPI)AfAm (60.0-200.0) Est GFR (CKD-EPI)NonAf (60.0-200.0) BUN/Creatinine Ratio (12.00-20.00) Ratio Glucose 392 H (74-99) mg/dL POC Glucose (mg/dL) 230 H (70-110) mg/dL Total Protein (6.2-8.2) g/dL Albumin (3.8-4.9) g/dL 08/08/22 08/08/22 08/08/22 Range/Units 06:18 06:18 07:13 WBC 10.46 H (3.8-10.6) k/uL RBC 2.74 L (3.80-5.40) m/uL Hgb 7.3 L (11.4-16.0) gm/dL Hct 24.5 L (34.0-46.0) % MCH 26.6 L (27.0-32.0) pg MCHC 29.8 L (32.0-37.0) g/dL RDW 15.5 H (11.5-14.5) % Neutrophils # (1.3-7.7) k/uL Monocytes # (0-1.0) k/uL Sodium (137-145) mmol/L Chloride (98-107) mmol/L Carbon Dioxide 28.8 H (20.0-27.5) mmol/L BUN 64.6 H (7-17) mg/dL Creatinine 2.1 H (0.52-1.04) mg/dL Est GFR (CKD-EPI)AfAm 25.1 L (60.0-200.0) Est GFR (CKD-EPI)NonAf 21.7 L (60.0-200.0) BUN/Creatinine Ratio 30.76 H (12.00-20.00) Ratio Glucose 144 H (74-99) mg/dL POC Glucose (mg/dL) 167 H (70-110) mg/dL Total Protein 5.7 L (6.2-8.2) g/dL Albumin 3.6 L (3.8-4.9) g/dL Diabetes panel 08/07/22 08/08/22 Range/Units 16:29 06:18 Sodium 129 L 139 (137-145) mmol/L Potassium 4.9 3.9 (3.5-5.1) mmol/L Chloride 93 L 100 (98-107) mmol/L Carbon Dioxide 27 28.8 H (22-30) mmol/L BUN 72 H 64.6 H (7-17) mg/dL Creatinine 2.18 H 2.1 H (0.52-1.04) mg/dL Glucose 392 H 144 H (74-99) mg/dL Calcium 8.5 8.9 (8.4-10.2) mg/dL AST 22 16 (14-36) U/L ALT 21 18 (4-34) U/L Alkaline Phosphatase 106 70 (38-126) U/L Total Protein 6.3 5.7 L (6.3-8.2) g/dL Albumin 3.7 3.6 L (3.5-5.0) g/dL Calcium panel 08/07/22 08/08/22 Range/Units 16:29 06:18 Calcium 8.5 8.9 (8.4-10.2) mg/dL Albumin 3.7 3.6 L (3.5-5.0) g/dL Pituitary panel 08/07/22 08/08/22 Range/Units 16:29 06:18 Sodium 129 L 139 (137-145) mmol/L Potassium 4.9 3.9 (3.5-5.1) mmol/L Chloride 93 L 100 (98-107) mmol/L Carbon Dioxide 27 28.8 H (22-30) mmol/L BUN 72 H 64.6 H (7-17) mg/dL Creatinine 2.18 H 2.1 H (0.52-1.04) mg/dL Glucose 392 H 144 H (74-99) mg/dL Calcium 8.5 8.9 (8.4-10.2) mg/dL Adrenal panel 08/07/22 08/08/22 Range/Units 16:29 06:18 Sodium 129 L 139 (137-145) mmol/L Potassium 4.9 3.9 (3.5-5.1) mmol/L Chloride 93 L 100 (98-107) mmol/L Carbon Dioxide 27 28.8 H (22-30) mmol/L BUN 72 H 64.6 H (7-17) mg/dL Creatinine 2.18 H 2.1 H (0.52-1.04) mg/dL Glucose 392 H 144 H (74-99) mg/dL Calcium 8.5 8.9 (8.4-10.2) mg/dL Total Bilirubin 0.5 0.30 (0.2-1.3) mg/dL AST 22 16 (14-36) U/L ALT 21 18 (4-34) U/L Alkaline Phosphatase 106 70 (38-126) U/L Total Protein 6.3 5.7 L (6.3-8.2) g/dL Albumin 3.7 3.6 L (3.5-5.0) g/dL
--- NOTE | 2022-08-08 15:07 | P.HPIM ---
History of Present Illness H&P Date: 08/08/22 This is a 81-year-old female who was recently presented to the emergency department via EMS with concerns for dark stools and rectal bleeding. Patient initially reports she went to an urgent care and was told she looks pale and they recommended transferring to emergency department for further evaluation. Patient reports she noted dark stools and blood at least 3 times with loose stools. Patient does have a past medical history of paroxysmal atrial fibrillation on anticoagulation, severe aortic stenosis with previous TAVR procedure, angina, COPD, heart failure, CVA/TIA, diabetes mellitus, hyperlipidemia, hypertension, osteoarthritis, chronic renal disease, sleep apnea, thyroid disorder and follows with Lokesh Ibarra in the outpatient setting. Patient reports she lives home alone and has home care outpatient. Labs reviewed on admission shows a mildly elevated white blood count of 11.4 with a hemoglobin of 8.2, platelets were 273, sodium low at 129, potassium 4.9, creatinine 2.18, blood sugars elevated at 392 and other testing including influenza RSV and Covid were negative. Patient has been taking eliquis along with Plavix and iron in the outpatient setting. Given we have no GI services here for the next 2 weeks, general surgery was consulted with concerns for GI bleeding. Anticoagulation and Plavix currently held. Patient also reports she chronically wears oxygen in the outpatient setting at 2 L via nasal cannula. Patient has had home care services in the past. Patient was admitted with concerns for GI bleeding with anticoagulation on hold and general [facility] is consulted for possible endoscopic intervention. Patient currently nothing by mouth and reports to feeling hungry asking for something to eat. Review Of Systems: Constitutional: No fever, no chills, no night sweats. No weight change. Reports of weakness, fatigue and lethargy. No daytime sleepiness. EENT: No headache. No blurred vision or double vision, no loss of vision. No loss of Hearing, no ringing in the ears, no dizziness. No nasal drainage or congestion. No epistaxis. No sore throat. Lungs: No shortness of breath, cough, no sputum production. No wheezing. Cardiovascular: No chest pain, no lower extremity edema. No palpitations. No paroxysmal nocturnal dyspnea. No orthopnea. No lightheadedness or dizziness. No syncopal episodes. Abdominal: No abdominal pain. No nausea, vomiting. No diarrhea. No constipation. Reports dark bloody stools 3.. No loss of appetite. Genitourinary: No dysuria, increased frequency, urgency. No urinary retention. Musculoskeletal: No myalgias. No muscle weakness, no gait dysfunction, no frequent falls. No back pain. No neck pain. Integumentary: No wounds, no lesions. No rash or pruritus. No unusual bruising. No change in hair or nails. Neurologic: No aphasia. No facial droop. No change in mentation. No head injury. No headache. No paralysis. No paresthesia. Psychiatric: No depression. No anxiety. No mood swings. Endocrine: No abnormal blood sugars. No weight change. No excessive sweating or thirst. No cold intolerance. PHYSICAL EXAMINATION: GENERAL: The patient is alert and oriented x4, Well developed, well nourished. Obese. HEENT: Pupils are round and equally reacting to light. EOMI. no scleral icterus. No conjunctival pallor. Normocephalic, atraumatic. No pharyngeal erythema. No thyromegaly. CARDIOVASCULAR: S1 and S2 muffled PULMONARY: diminished breath sounds bilaterally with some scattered rhonchi noted. ABDOMEN: soft. Nontender on exam. obese. non-distended, normoactive bowel s ounds. No palpable organomegaly. MUSCULOSKELETAL: No joint swelling or deformity. EXTREMITIES: No cyanosis, clubbing, or pedal edema. NEUROLOGICAL: Gross neurological examination did not reveal any focal deficits. SKIN: No rashes. Pale Assessment: Acute GI bleed with dark black stools History of iron deficiency anemia, on oral ferrous sulfate outpatient History of gastritis and diverticulosis on most recent EGD History of paroxysmal atrial fibrillation on oral anticoagulant Sleep apnea history History of heart failure, not in exacerbation History of CVA/TIA History of COPD, not in exacerbation Chronic hypoxic respiratory failure, on 2 L via nasal cannula outpatient due to COPD and heart failure History of severe aortic stenosis with TAVR Microcytic anemia history Obesity with a BMI of 33.8 GI prophylaxis DVT prophylaxis Full code Plan: Recommend to continue with current medications and management with general surgery consulted for concerns of GI bleed. Patient does take anticoagulants along with Plavix and started noticing some black stools over the last few days and had some loose black stools as well 3 and initially went to the urgent care and was sent to the ER for further evaluation and possible admission. Patient denies abdominal pain and actually reports to feeling hungry and currently nothing by mouth until evaluated by surgery. Plan is for tentative EGD/c olonoscopy this and will initiate bowel prep tomorrow. Encouraged increase activity as tolerated and will follow-up with repeat labs. Sodium initially was 129 although repeat this morning was 139 after a 500 mL bolus of normal saline. Recommend gentle IV hydration as needed as patient normally takes diuretic therapy with history of heart failure. Due to multiple complex medical issues, prognosis is guarded. [facility] physicians cover this PCP and will resume care on 08/09/2022. The impression and plan of care has been dictated by Eloise Sesay, nurse practitioner as directed. Dr. Tio MD I have performed a history and examination and MDM of this patient, discussed the same with the dictator, and agree with the dictator's assessment and plan as written ,documented as a scribe. Based on total visit time, I have performed more than 50% of the visit. Any additional findings or plans will be noted. Past Medical History Past Medical History: Atrial Fibrillation, Cancer, Chest Pain / Angina, Heart Failure, COPD, CVA/TIA, Diabetes Mellitus, Hyperlipidemia, Hypertension, Osteoarthritis (OA), Pneumonia, Renal Disease, Sleep Apnea/CPAP/BIPAP, Syncope, Thyroid Disorder Additional Past Medical History / Comment(s): Severe aortic stenosis with a previous TAVR, nonocclusive coronary artery disease, diabetes mellitus type 2, paroxysmal atrial fibrillation, previous pulmonary embolism based on a intermediate probability VQ scan with a negative Dopplers, obstructive sleep apnea, chronic stage III kidney disease, hypertension, hyperlipidemia, previous history of CVA, previous history of compression fracture of T12 spine, chronic back pain, chronic anemia, hypothyroidism, vitamin D deficiency, skin cancer that has been resected, previous history of pneumonia with sepsis, previous history of right-sided pleural effusion requiring thoracentesis, previous history of CVA back in 2012 History of Any Multi-Drug Resistant Organisms: None Reported Past Surgical History: Adenoidectomy, Back Surgery, Bariatric Surgery, Cholecystectomy, Heart Catheterization, Hysterectomy, Tonsillectomy Additional Past Surgical History / Comment(s): 03/2022 TAVR, Cardiac caths , lap band placed/since removed, low back surgery, L carpal tunnel release X2, pain clinic procedures, skin cancer removal, colonoscopies, bilateral cataract removals/lens implants. Past Anesthesia/Blood Transfusion Reactions: Previous Problems w/ Anesthesia Additional Past Anesthesia/Blood Transfusion Reaction / Comment(s): "Had too much anesthesia in 2007 for lap band removal, had to be bagged." Past Psychological History: Depression Additional Psychological History / Comment(s): Pt resides alone. Pt uses a walker. She is receiving home care thru [facility]. She is not driving anymore, her family takes her to [facility]. Her delia, Jennie, organizes her meds. Smoking Status: Never smoker Past Alcohol Use History: None Reported Past Drug Use History: None Reported - Past Family History Sister(s) Family Medical History: Myocardial Infarction ([place]) Brother(s) Family Medical History: Cancer Additional Family Medical History / Comment(s): Colon Cancer. Mother Family Medical History: Dementia Additional Family Medical History / Comment(s): Mother of dementia at the age of 89yrs. Father Family Medical History: Cancer Additional Family Medical History / Comment(s): Pt states her father was treated for a sinus infection but really had leukemia and of this at the age of 72 yrs. Medications and Allergies Home Medications Medication Instructions Recorded Confirmed Type Atorvastatin [Lipitor] 80 mg PO HS 06/30/18 08/07/22 History Sertraline [Zoloft] 25 mg PO DAILY 08/30/21 08/07/22 History Isosorbide Mononitrate ER [Imdur] 60 mg PO DAILY 09/24/21 08/07/22 History Levothyroxine Sodium [Synthroid] 125 mcg PO DAILY 12/01/21 08/07/22 History Melatonin [Melatonin ER] 10 mg PO HS 12/01/21 08/07/22 History Ferrous Sulfate [Feosol] 325 mg PO DAILY 03/02/22 08/07/22 History Furosemide [Lasix] 40 mg PO BID@0900,1600 04/04/22 08/07/22 History Pioglitazone [Actos] 15 mg PO DAILY 04/05/22 08/07/22 History carvediloL [Coreg*] 25 mg PO BID-W/MEALS 30 Days #120 04/27/22 08/07/22 Rx tab Clopidogrel [Plavix] 75 mg PO DAILY #30 tablet 05/29/22 08/07/22 Rx Spironolactone [Aldactone] 25 mg PO DAILY #30 tab 06/23/22 08/07/22 Rx amLODIPine [Norvasc] 5 mg PO DAILY #30 tab 06/23/22 08/07/22 Rx Apixaban [Eliquis] 5 mg PO DAILY 08/07/22 08/07/22 History Cholecalciferol (Vitamin D3) 125 mcg PO DAILY 08/07/22 08/07/22 History [Vitamin D3 (125 MCG = 5,000 IU)] Clotrimazole [Clotrimazole AF] 1 applic TOPICAL BID 08/07/22 08/07/22 History Dulaglutide [Trulicity] 0.5 ml SQ WEEKLY 08/07/22 08/07/22 History Insulin Degludec [Tresiba 25 units SQ DAILY 08/07/22 08/07/22 History Flextouch U-100 Pen] Zinc Oxide 20% Oint 1 applic TOPICAL BID 08/07/22 08/07/22 History hydrALAZINE HCL [Apresoline] 100 mg PO TID 08/07/22 08/07/22 History Allergies Allergy/AdvReac Type Severity Reaction Status Date / Time azithromycin Allergy Rash/Hives Verified 08/07/22 18:48 [From Zithromax Z-Jeanmarie] methylprednisolone Allergy Rash/Hives Verified 08/07/22 18:48 [From Medrol] sulfamethoxazole Allergy Rash/Hives Verified 08/07/22 18:48 [From Bactrim] trimethoprim [From Bactrim] Allergy Rash/Hives Verified 08/07/22 18:48 hydrochlorothiazide AdvReac Unknown Verified 08/07/22 18:48 hydrocodone AdvReac Hallucinati Verified 08/07/22 18:48 ons Physical Exam Vitals: Vital Signs Temp Pulse Pulse Resp BP BP Pulse Ox 08/08/22 05:00 97.5 F L 62 16 145/79 100 08/07/22 21:39 98.0 F 51 L 16 149/72 99 08/07/22 19:27 84 18 122/90 97 08/07/22 18:18 54 L 18 135/57 100 08/07/22 17:13 53 L 18 145/62 100 08/07/22 15:42 98.5 F 56 L 18 137/67 99 Intake and Output 1208/08/22 08/08/22 22:59 06:59 14:59 Other: Voiding Method Toilet # Voids 2 Weight 89.358 kg Results CBC & Chem 7: 08/08/22 06:18 08/08/22 06:18 Labs: Abnormal Lab Results - Last 24 Hours (Table) 08/07/22 08/07/22 08/07/22 Range/Units 16:29 16:29 22:36 WBC 11.4 H (3.8-10.6) k/uL RBC 2.81 L (3.80-5.40) m/uL Hgb 8.2 L (11.4-16.0) gm/dL Hct 24.5 L (34.0-46.0) % MCH (27.0-32.0) pg MCHC (32.0-37.0) g/dL RDW (11.5-14.5) % Neutrophils # 8.4 H (1.3-7.7) k/uL Monocytes # 1.2 H (0-1.0) k/uL Sodium 129 L (137-145) mmol/L Chloride 93 L (98-107) mmol/L Carbon Dioxide (20.0-27.5) mmol/L BUN 72 H (7-17) mg/dL Creatinine 2.18 H (0.52-1.04) mg/dL Est GFR (CKD-EPI)AfAm (60.0-200.0) Est GFR (CKD-EPI)NonAf (60.0-200.0) BUN/Creatinine Ratio (12.00-20.00) Ratio Glucose 392 H (74-99) mg/dL POC Glucose (mg/dL) 230 H (70-110) mg/dL Total Protein (6.2-8.2) g/dL Albumin (3.8-4.9) g/dL 08/08/22 08/08/22 08/08/22 Range/Units 06:18 06:18 07:13 WBC 10.46 H (3.8-10.6) k/uL RBC 2.74 L (3.80-5.40) m/uL Hgb 7.3 L (11.4-16.0) gm/dL Hct 24.5 L (34.0-46.0) % MCH 26.6 L (27.0-32.0) pg MCHC 29.8 L (32.0-37.0) g/dL RDW 15.5 H (11.5-14.5) % Neutrophils # (1.3-7.7) k/uL Monocytes # (0-1.0) k/uL Sodium (137-145) mmol/L Chloride (98-107) mmol/L Carbon Dioxide 28.8 H (20.0-27.5) mmol/L BUN 64.6 H (7-17) mg/dL Creatinine 2.1 H (0.52-1.04) mg/dL Est GFR (CKD-EPI)AfAm 25.1 L (60.0-200.0) Est GFR (CKD-EPI)NonAf 21.7 L (60.0-200.0) BUN/Creatinine Ratio 30.76 H (12.00-20.00) Ratio Glucose 144 H (74-99) mg/dL POC Glucose (mg/dL) 167 H (70-110) mg/dL Total Protein 5.7 L (6.2-8.2) g/dL Albumin 3.6 L (3.8-4.9) g/dL Thrombosis Risk Factor Assmnt - DVT/VTE Prophylaxis DVT/VTE Prophylaxis: Pharmacologic Prophylaxis ordered - Choose All That Apply Any of the Below Risk Factors Present?: Yes Each Factor Represents 1 point: Obesity (BMI >25) Other Risk Factors: Yes Each Risk Factor Represents 3 Points: Age 75 years or older Other congenital or acquired thrombophilia - If yes, enter type in comment: No Thrombosis Risk Factor Assessment Total Risk Factor Score: 4 Thrombosis Risk Factor Assessment Level: Moderate Risk Assessment and Plan Time with Patient: Greater than 30
[2022-08-08 17:03] LABS: Glucose,Whole Blood 295 mg/dL (70-110)
[2022-08-08] MEDS: carvediloL 12.5 MG TAB PO SCH (17:50)
[2022-08-08 21:04] LABS: Glucose,Whole Blood 426 mg/dL (70-110)
[2022-08-08] MEDS: CLOTRIMAZOLE 1% CREAM 30 GM TUBE TOPICAL SCH (21:20)
[2022-08-08] MEDS: ATORVASTATIN 80 MG TAB PO SCH (21:21)
[2022-08-08] MEDS: MELATONIN 5 MG TABLET PO SCH (21:21)
[2022-08-08] MEDS: ZINC OXIDE 20% OINT 28.4 GM TUBE TOPICAL SCH (21:21)
[2022-08-08] MEDS: PANTOPRAZOLE 40 MG/10 ML VIAL IV SCH (21:21)
[2022-08-08 22:04] LABS: Glucose,Whole Blood 380 mg/dL (70-110)
[2022-08-08 22:46] LABS: Glucose,Whole Blood 264 mg/dL (70-110)
[2022-08-09] MEDS: LEVOTHYROXINE 125 MCG TAB PO SCH (05:38)
[2022-08-09 07:20] LABS: Glucose,Whole Blood 139 mg/dL (70-110)
[2022-08-09] MEDS: INSULIN ASPART (NovoLOG) 100 UNIT/ML VIAL SQ SCH ×4 (07:38→20:22)
[2022-08-09] MEDS ORDERED: PEG 3350 (236 GM/BTL) + LYTES 4,000 ML BOTTLE PO ONE (09:00)
[2022-08-09] MEDS: SERTRALINE 25 MG TAB PO SCH (09:16)
[2022-08-09] MEDS: ISOSORBIDE MONONITRATE ER 60 MG TAB.ER.24H PO SCH (09:16)
[2022-08-09] MEDS: FERROUS SULFATE 325 MG TAB PO SCH (09:16)
[2022-08-09] MEDS: PANTOPRAZOLE 40 MG/10 ML VIAL IV SCH ×2 (09:16→20:47)
[2022-08-09] MEDS: carvediloL 12.5 MG TAB PO SCH ×2 (09:16→18:02)
[2022-08-09] MEDS: CHOLECALCIFEROL 125 MCG (5000 IU) TABLET PO SCH (09:16)
[2022-08-09] MEDS: amLODIPine 5 MG TAB PO SCH (09:16)
[2022-08-09] MEDS: PIOGLITAZONE 15 MG TAB PO SCH (09:17)
[2022-08-09] MEDS: INSULIN DETEMIR (LEVEMIR) 100 UNIT/ML SYR SQ SCH (09:17)
[2022-08-09] MEDS: CLOTRIMAZOLE 1% CREAM 30 GM TUBE TOPICAL SCH ×2 (09:22→20:57)
[2022-08-09] MEDS: ZINC OXIDE 20% OINT 28.4 GM TUBE TOPICAL SCH ×2 (09:22→20:57)
[2022-08-09 10:18] LABS: Basophils # (A) 0.03 X 10*3/uL (0.00-0.10); Basophils % (A) 0.4 %; Eosinophils # (A) 0.44 X 10*3/uL (0.04-0.35); Eosinophils % (A) 5.3 %; HCT 25.2 % (37.2-46.3); HGB 7.6 g/dL (12.0-15.0); Immature Grans, Automated 1.9 %; Lymphocytes # (A) 1.37 X 10*3/uL (0.90-5.00); Lymphocytes % (A) 16.5 %; MCH 27.6 pg (27.0-32.0); MCHC 30.2 g/dL (32.0-37.0); MCV 91.6 fL (80.0-97.0); Mean Platelet Volume 11.4 fL (9.5-12.2); Monocytes # (A) 1.57 X 10*3/uL (0.20-1.00); Monocytes % (A) 18.9 %; NRBC Per 100 WBC 0 /100 WBCS (0.0-0.0); Neutrophils # (A) 4.74 X 10*3/uL (1.80-7.70); Platelet Count 248 X 10*3/uL (140-440); RBC 2.75 X 10*6/uL (4.10-5.20); RDW 15.4 % (11.5-14.5); WBC 8.31 X 10*3/uL (4.50-10.00)
[2022-08-09 10:39] LABS: African American GFR (CKD) 30.3 (60.0-200.0); Anion Gap 9.8 mmol/L (10.00-18.00); BUN/Creat Ratio 28.39 Ratio (12.00-20.00); Blood Urea Nitrogen 51.1 mg/dL (9.0-27.0); Calcium 8.6 mg/dL (8.7-10.3); Carbon Dioxide 26.9 mmol/L (20.0-27.5); Non-African American GFR(CKD) 26.1 (60.0-200.0); Potassium 4.3 mmol/L (3.5-5.5)
--- NOTE | 2022-08-09 11:27 | P.PN ---
Subjective Progress Note Date: 08/09/22 CHIEF COMPLAINT: GI bleed HISTORY OF PRESENT ILLNESS: Patient reports that she did have black stools yest erday. She denies any abdominal pain. Denies any nausea or vomiting. Her Eliquis and plavix are on hold. She is to start a GoLYTELY bowel prep today for her EGD and colonoscopy tomorrow. Afebrile. WBC 10.46 down to 8.31 hemoglobin 7.3 up to 7.6 platelets 248 sodium is 139 potassium 4.3 creatinine 1.8 PHYSICAL EXAM: VITAL SIGNS: Reviewed. GENERAL: Well-developed in no acute distress. HEENT: No sclera icterus. Extraocular movements grossly intact. Moist buccal mucosa. Head is atraumatic, normocephalic. ABDOMEN: Soft. Nondistended. Nontender. NEUROLOGIC: Alert and oriented. Cranial nerves II through XII grossly intact. ASSESSMENT: 1. Acute GI bleed with black stools 2. Microcytic anemia 3. History of iron deficiency anemia 4. On daily blood thinners Eliquis and Plavix 5. History of gastritis and diverticulosis on EGD and colonoscopy in November 2021 PLAN: -Patient scheduled for EGD and colonoscopy on , 08/10/2022 -Clear liquid diet today -Start GoLYTELY bowel prep this morning -Nothing by mouth after midnight -Hold Eliquis and Plavix -Continue to monitor hemoglobin -Continue to monitor for any signs or symptoms of bleeding -Continue PPI Physician Church Warden note has been reviewed by physician. Signing provider agrees with the documented findings, assessment, and plan of care. Objective - Vital Signs Vital signs: Vital Signs Temp 97.4 F L 08/09/22 05:00 Pulse 52 L 08/09/22 05:00 Resp 16 08/09/22 05:00 BP 114/64 08/09/22 05:00 Pulse Ox 100 08/09/22 05:00 FiO2 Intake & Output 08/08/22 08/09/22 08/09/22 18:59 06:59 18:59 Other: Voiding Method Toilet Toilet # Voids 1 1 # Bowel Movements 2 1 - Labs CBC & Chem 7: 08/09/22 06:57 08/09/22 06:57 Labs: Abnormal Lab Results - Last 24 Hours (Table) 08/08/22 08/08/22 08/08/22 Range/Units 06:18 17:02 21:03 RBC (4.10-5.20) X 10*6/uL Hgb (12.0-15.0) g/dL Hct (37.2-46.3) % MCHC (32.0-37.0) g/dL RDW (11.5-14.5) % Immature Gran # (0.00-0.04) X 10*3/uL Monocytes # (0.20-1.00) X 10*3/uL Eosinophils # (0.04-0.35) X 10*3/uL Anion Gap (10.00-18.00) mmol/L BUN (9.0-27.0) mg/dL Creatinine (0.6-1.5) mg/dL Est GFR (CKD-EPI)AfAm (60.0-200.0) Est GFR (CKD-EPI)NonAf (60.0-200.0) BUN/Creatinine Ratio (12.00-20.00) Ratio Glucose (70-110) mg/dL POC Glucose (mg/dL) 295 H 426 H (70-110) mg/dL Hemoglobin A1c 11.4 H (0.0-6.0) % Calcium (8.7-10.3) mg/dL 08/08/22 08/08/22 08/09/22 Range/Units 22:02 22:45 06:57 RBC 2.75 L (4.10-5.20) X 10*6/uL Hgb 7.6 L (12.0-15.0) g/dL Hct 25.2 L (37.2-46.3) % MCHC 30.2 L (32.0-37.0) g/dL RDW 15.4 H (11.5-14.5) % Immature Gran # 0.16 H (0.00-0.04) X 10*3/uL Monocytes # 1.57 H (0.20-1.00) X 10*3/uL Eosinophils # 0.44 H (0.04-0.35) X 10*3/uL Anion Gap (10.00-18.00) mmol/L BUN (9.0-27.0) mg/dL Creatinine (0.6-1.5) mg/dL Est GFR (CKD-EPI)AfAm (60.0-200.0) Est GFR (CKD-EPI)NonAf (60.0-200.0) BUN/Creatinine Ratio (12.00-20.00) Ratio Glucose (70-110) mg/dL POC Glucose (mg/dL) 380 H 264 H (70-110) mg/dL Hemoglobin A1c (0.0-6.0) % Calcium (8.7-10.3) mg/dL 08/09/22 08/09/22 Range/Units 06:57 07:19 RBC (4.10-5.20) X 10*6/uL Hgb (12.0-15.0) g/dL Hct (37.2-46.3) % MCHC (32.0-37.0) g/dL RDW (11.5-14.5) % Immature Gran # (0.00-0.04) X 10*3/uL Monocytes # (0.20-1.00) X 10*3/uL Eosinophils # (0.04-0.35) X 10*3/uL Anion Gap 9.80 L (10.00-18.00) mmol/L BUN 51.1 H (9.0-27.0) mg/dL Creatinine 1.8 H (0.6-1.5) mg/dL Est GFR (CKD-EPI)AfAm 30.3 L (60.0-200.0) Est GFR (CKD-EPI)NonAf 26.1 L (60.0-200.0) BUN/Creatinine Ratio 28.39 H (12.00-20.00) Ratio Glucose 129 H (70-110) mg/dL POC Glucose (mg/dL) 139 H (70-110) mg/dL Hemoglobin A1c (0.0-6.0) % Calcium 8.6 L (8.7-10.3) mg/dL
[2022-08-09 11:48] LABS: Glucose,Whole Blood 294 mg/dL (70-110)
--- NOTE | 2022-08-09 12:03 | P.PN ---
Subjective Progress Note Date: 08/09/22 Principal diagnosis: melena Hospital Course: 81-year-old female with a history of paroxysmal atrial fibrillation on anticoagulation, severe aortic stenosis status post TAVR, CVA/TIA presenting with concerns of melena and rectal bleeding. She claims that she feels occasional lightheadedness when she gets out of bed. Vital signs have been stable. Patient remains 2 L oxygen, which she uses at home. Initial hemoglobin was 8.2, and now currently stable at 7.6. Patient initially presented with nonoliguric acute kidney injury, creatinine not improving. General surgery has been consulted, planning for EGD and colonoscopy tomorrow. Subjective: Patient seen and examined at bedside. No acute events overnight. She claims that she had melena yesterday as well. She has not had a bowel movement today. She denies any chest pain, worsening shortness of breath, palpitations, abdominal pain, nausea, vomiting, or urinary complaints. Pertinent positives and negatives as discussed above, a complete review of systems was performed and all other systems are negative. Vitals Signs Reviewed. General: nontoxic, no distress, appears at stated age Derm: warm, dry Head: atraumatic, normocephalic, symmetric Eyes: EOMI, no lid lag, anicteric sclera Mouth: no lip lesion, mucus membranes moist Cardiovascular: S1S2 reg, no murmur Lungs: CTA bilateral, no rhonchi, no rales , no accessory muscle use, on 2 L Abdominal: soft, nontender to palpation, no guarding, no appreciable organomegaly Ext: no gross muscle atrophy, no edema, no contractures Neuro: CN II-XI grossly intact, no focal neuro deficits Psych: Alert, oriented, appropriate affect Assessment and Plan: Acute symptomatic blood loss anemia Possible upper GI bleed -Gen. surgery consulted -IV PPI -hold Eliquis and Plavix -Hemoglobin stable -Vitals stable -Plan for EGD and colonoscopy tomorrow Nonoliguric, acute kidney injury on CKD 3 Diastolic CHF not in exacerbation -Creatinine improving -Patient appears euvolemic, holding diuretics Uncontrolled insulin-dependent type 2 diabetes mellitus -A1c 11.4 -Continue home regimen -Also started on sliding scale insulin Hypertension -Holding hydralazine, spironolactone, Lasix -Continue amlodipine and beta alejandro -Also on isosorbide mononitrate Hypothyroidism Depression Dyslipidemia -Continue home medications DVT ppx: SCD Code status: Full Code Anticipated discharge place: Home Anticipated discharge time: 2+ days Objective - Vital Signs Vital signs: Vital Signs Temp 98.3 F 08/09/22 11:37 Pulse 98 08/09/22 11:37 Resp 17 08/09/22 11:37 BP 103/43 08/09/22 11:37 Pulse Ox 98 08/09/22 11:37 FiO2 Intake & Output 08/08/22 08/09/22 08/09/22 18:59 06:59 18:59 Other: Voiding Method Toilet Toilet # Voids 1 1 # Bowel Movements 2 1 - Labs CBC & Chem 7: 08/09/22 06:57 08/09/22 06:57 Labs: Abnormal Lab Results - Last 24 Hours (Table) 08/08/22 08/08/22 08/08/22 Range/Units 06:18 17:02 21:03 RBC (4.10-5.20) X 10*6/uL Hgb (12.0-15.0) g/dL Hct (37.2-46.3) % MCHC (32.0-37.0) g/dL RDW (11.5-14.5) % Immature Gran # (0.00-0.04) X 10*3/uL Monocytes # (0.20-1.00) X 10*3/uL Eosinophils # (0.04-0.35) X 10*3/uL Anion Gap (10.00-18.00) mmol/L BUN (9.0-27.0) mg/dL Creatinine (0.6-1.5) mg/dL Est GFR (CKD-EPI)AfAm (60.0-200.0) Est GFR (CKD-EPI)NonAf (60.0-200.0) BUN/Creatinine Ratio (12.00-20.00) Ratio Glucose (70-110) mg/dL POC Glucose (mg/dL) 295 H 426 H (70-110) mg/dL Hemoglobin A1c 11.4 H (0.0-6.0) % Calcium (8.7-10.3) mg/dL 08/08/22 08/08/22 08/09/22 Range/Units 22:02 22:45 06:57 RBC 2.75 L (4.10-5.20) X 10*6/uL Hgb 7.6 L (12.0-15.0) g/dL Hct 25.2 L (37.2-46.3) % MCHC 30.2 L (32.0-37.0) g/dL RDW 15.4 H (11.5-14.5) % Immature Gran # 0.16 H (0.00-0.04) X 10*3/uL Monocytes # 1.57 H (0.20-1.00) X 10*3/uL Eosinophils # 0.44 H (0.04-0.35) X 10*3/uL Anion Gap (10.00-18.00) mmol/L BUN (9.0-27.0) mg/dL Creatinine (0.6-1.5) mg/dL Est GFR (CKD-EPI)AfAm (60.0-200.0) Est GFR (CKD-EPI)NonAf (60.0-200.0) BUN/Creatinine Ratio (12.00-20.00) Ratio Glucose (70-110) mg/dL POC Glucose (mg/dL) 380 H 264 H (70-110) mg/dL Hemoglobin A1c (0.0-6.0) % Calcium (8.7-10.3) mg/dL 08/09/22 08/09/22 08/09/22 Range/Units 06:57 07:19 11:47 RBC (4.10-5.20) X 10*6/uL Hgb (12.0-15.0) g/dL Hct (37.2-46.3) % MCHC (32.0-37.0) g/dL RDW (11.5-14.5) % Immature Gran # (0.00-0.04) X 10*3/uL Monocytes # (0.20-1.00) X 10*3/uL Eosinophils # (0.04-0.35) X 10*3/uL Anion Gap 9.80 L (10.00-18.00) mmol/L BUN 51.1 H (9.0-27.0) mg/dL Creatinine 1.8 H (0.6-1.5) mg/dL Est GFR (CKD-EPI)AfAm 30.3 L (60.0-200.0) Est GFR (CKD-EPI)NonAf 26.1 L (60.0-200.0) BUN/Creatinine Ratio 28.39 H (12.00-20.00) Ratio Glucose 129 H (70-110) mg/dL POC Glucose (mg/dL) 139 H 294 H (70-110) mg/dL Hemoglobin A1c (0.0-6.0) % Calcium 8.6 L (8.7-10.3) mg/dL
[2022-08-09 13:56] VITALS: BMI 33.7
[2022-08-09 17:14] LABS: Glucose,Whole Blood 210 mg/dL (70-110)
[2022-08-09 20:12] LABS: Glucose,Whole Blood 147 mg/dL (70-110)
[2022-08-09] MEDS: ATORVASTATIN 80 MG TAB PO SCH (20:47)
[2022-08-09] MEDS: MELATONIN 5 MG TABLET PO SCH (20:47)
[2022-08-10] MEDS: LEVOTHYROXINE 125 MCG TAB PO SCH (06:30)
[2022-08-10 07:07] LABS: Glucose,Whole Blood 112 mg/dL (70-110)
[2022-08-10] MEDS: INSULIN ASPART (NovoLOG) 100 UNIT/ML VIAL SQ SCH ×4 (07:34→21:01)
[2022-08-10] MEDS: SERTRALINE 25 MG TAB PO SCH (08:47)
[2022-08-10] MEDS: amLODIPine 5 MG TAB PO SCH (08:47)
[2022-08-10] MEDS: FERROUS SULFATE 325 MG TAB PO SCH (08:47)
[2022-08-10] MEDS: ISOSORBIDE MONONITRATE ER 60 MG TAB.ER.24H PO SCH (08:47)
[2022-08-10] MEDS: PANTOPRAZOLE 40 MG/10 ML VIAL IV SCH ×2 (08:47→21:01)
[2022-08-10] MEDS: CHOLECALCIFEROL 125 MCG (5000 IU) TABLET PO SCH (08:47)
[2022-08-10] MEDS: carvediloL 12.5 MG TAB PO SCH ×2 (08:47→18:12)
[2022-08-10] MEDS: ZINC OXIDE 20% OINT 28.4 GM TUBE TOPICAL SCH ×2 (08:51→21:07)
[2022-08-10] MEDS: CLOTRIMAZOLE 1% CREAM 30 GM TUBE TOPICAL SCH ×2 (08:51→21:07)
[2022-08-10] MEDS: PIOGLITAZONE 15 MG TAB PO SCH (08:51)
[2022-08-10 08:57] LABS: HCT 24.3 % (34.0-46.0); HGB 7.7 gm/dL (11.4-16.0); Hypochromasia Marked; MCH 28.8 pg (25.0-35.0); MCHC 31.8 g/dL (31.0-37.0); MCV 90.6 fL (80.0-100.0); Mean Platelet Volume 9.1; Platelet Count 199 k/uL (150-450); RBC 2.69 m/uL (3.80-5.40)
[2022-08-10 11:11] LABS: Glucose,Whole Blood 160 mg/dL (70-110)
--- NOTE | 2022-08-10 11:56 | P.PN ---
Subjective Progress Note Date: 08/10/22 Principal diagnosis: melena Hospital Course: 81-year-old female with a history of paroxysmal atrial fibrillation on anticoagulation, severe aortic stenosis status post TAVR, CVA/TIA presenting with concerns of melena and rectal bleeding. She claims that she feels occasional lightheadedness when she gets out of bed. Vital signs have been stable. Patient remains 2 L oxygen, which she uses at home. Initial hemoglobin was 8.2, and now currently stable at 7.7. Patient initially presented with nonoliguric acute kidney injury, creatinine now improving. General surgery has been consulted, planning for EGD and colonoscopy today. Subjective: Patient seen and examined at bedside. No acute events overnight. She claims that she had bright red blood per rectum yesterday during her prep. She denies any chest pain, worsening shortness of breath, palpitations, abdominal pain, nausea, vomiting, or urinary complaints. Pertinent positives and negatives as discussed above, a complete review of systems was performed and all other systems are negative. Vitals Signs Reviewed. General: nontoxic, no distress, appears at stated age Derm: warm, dry Head: atraumatic, normocephalic, symmetric Eyes: EOMI, no lid lag, anicteric sclera Mouth: no lip lesion, mucus membranes moist Cardiovascular: S1S2 reg, no murmur Lungs: CTA bilateral, no rhonchi, no rales , no accessory muscle use, on 2 L Abdominal: soft, nontender to palpation, no guarding, no appreciable organomegaly Ext: no gross muscle atrophy, no edema, no contractures Neuro: CN II-XI grossly intact, no focal neuro deficits Psych: Alert, oriented, appropriate affect Assessment and Plan: Acute symptomatic blood loss anemia Possible upper GI bleed -Gen. surgery consulted -IV PPI -hold Eliquis and Plavix -Hemoglobin stable -Vitals stable -Plan for EGD and colonoscopy today Nonoliguric, acute kidney injury on CKD 3 Diastolic CHF not in exacerbation -Creatinine improving -Patient appears euvolemic, holding diuretics Uncontrolled insulin-dependent type 2 diabetes mellitus -A1c 11.4 -Continue home regimen -Also started on sliding scale insulin Hypertension -Holding hydralazine, spironolactone, Lasix -Continue amlodipine and beta alejandro -Also on isosorbide mononitrate Hypothyroidism Depression Dyslipidemia -Continue home medications DVT ppx: SCD Code status: Full Code Anticipated discharge place: Home Anticipated discharge time: 2+ days Objective - Vital Signs Vital signs: Vital Signs Temp 97.5 F L 08/10/22 04:34 Pulse 54 L 08/10/22 04:34 Resp 18 08/10/22 04:34 BP 118/57 08/10/22 04:34 Pulse Ox 100 08/10/22 04:34 FiO2 Intake & Output 08/09/22 08/10/22 08/10/22 18:59 06:59 18:59 Weight 89.358 kg Other: Voiding Method Toilet Toilet Toilet # Voids 1 3 # Bowel Movements 6 3 - Labs CBC & Chem 7: 08/10/22 08:35 08/09/22 06:57 Labs: Abnormal Lab Results - Last 24 Hours (Table) 08/09/22 08/09/22 08/10/22 Range/Units 17:13 20:09 07:05 RBC (3.80-5.40) m/uL Hgb (11.4-16.0) gm/dL Hct (34.0-46.0) % POC Glucose (mg/dL) 210 H 147 H 112 H (70-110) mg/dL 08/10/22 08/10/22 Range/Units 08:35 11:09 RBC 2.69 L (3.80-5.40) m/uL Hgb 7.7 L (11.4-16.0) gm/dL Hct 24.3 L (34.0-46.0) % POC Glucose (mg/dL) 160 H (70-110) mg/dL
[2022-08-10] MEDS ORDERED: PROPOFOL 10 MG/ML 20 ML VIAL IV ONE (12:11)
[2022-08-10] MEDS ORDERED: LACTATED RINGERS 1,000 ML IV ONE (12:12)
--- NOTE | 2022-08-10 12:34 | P.OP ---
Date of Procedure: 08/10/22 Preoperative Diagnosis: GI bleed Postoperative Diagnosis: Mild antral gastritis Internal and external hemorrhoids Procedure(s) Performed: EGD Colonoscopy Anesthesia: MAC Surgeon: Giuseppe Napoles Pathology: other (Antrum) Condition: stable Disposition: PACU Description of Procedure: The patient's placed on the endoscopy table in the lateral position. She received IV sedation. The gastroscope placed oropharynx passed in the esophagus and stomach. Scope was then placed through the pylorus. First and second portion of duodenum was examined. There is no blood seen the duodenum. The scope summer back the antrum and there is minimal inflammation. A biopsies performed. The scope was unretroflexed and remainder the stomach appeared normal. The GE junction was at 40 cm per the distal esophagus appeared normal. The proximal esophagus appeared normal. Next digital rectal exam was performed. There is external and internal hemorrhoids noted. Flexible colonoscope was then placed patient anus and passed throughout the entire colon. In the right colon there is a large amount liquid stool the prep was poor. The visualized colon appeared normal. The scope was brought back the remainder of the ascending colon and transverse colon appeared normal. The descending and sigmoid colon were normal except for a few scattered diverticuli. The scope was then brought back the rectum this appeared normal. Scope withdrawn through the anus and internal and external hemorrhoids are noted. There is no evidence of any upper or lower GI bleed on endoscopy today. His presumed patient may have had bleeding from hemorrhoids.
[2022-08-10] MEDS: INSULIN DETEMIR (LEVEMIR) 100 UNIT/ML SYR SQ SCH (13:03)
[2022-08-10] MEDS ORDERED: NON FORMULARY DRUG (Dulaglutide [Trulicity] 0.75 MG/0.5 ML Each) SQ SCH (15:00)
--- NOTE | 2022-08-10 15:35 | P.DS ---
Providers Date of admission: 08/07/22 17:25 Expected date of discharge: 08/10/22 Attending physician: Latanya Ramsey MD Consults: 08/07/22 18:25 Consult Physician Routine Consulting Provider: Giuseppe Napoles Consult Reason/Comments: Gi bleed Do you want consulting provider notified?: Yes Primary care physician: Lokesh Ibarra MD Hospital Course: Discharge diagnoses: Acute symptomatic blood loss anemia Antral Gastritis Internal and external hemorrhoids Nonoliguric, acute kidney injury on CKD 3 Diastolic CHF not in exacerbation Uncontrolled insulin-dependent type 2 diabetes mellitus Hypertension Hospital Course: 81-year-old female with a history of paroxysmal atrial fibrillation on anticoagulation, severe aortic stenosis status post TAVR, CVA/TIA presenting with concerns of melena and rectal bleeding. She claims that she feels occasional lightheadedness when she gets out of bed. Vital signs have been stable but normal BP. Patient remains 2 L oxygen, which she uses at home. Initial hemoglobin was 8.2, and now currently stable at 7.7. Patient initially presented with nonoliguric acute kidney injury, creatinine now improving. Patient is euvolemic. Lasix, spirinolactone and hydralzine held at discharge. General surgery has been consulted, EGD and colonoscopy showed antral gastritis and internal and external hemorrhoids. No active bleeding. Patient discharged with pantoprazole. Outpatient follow up with PCP Vitals Signs Reviewed. General: nontoxic, no distress, appears at stated age Derm: warm, dry Head: atraumatic, normocephalic, symmetric Eyes: EOMI, no lid lag, anicteric sclera Mouth: no lip lesion, mucus membranes moist Cardiovascular: S1S2 reg, systolic murmur Lungs: CTA bilateral, no rhonchi, no rales , no accessory muscle use, on 2 L Abdominal: soft, nontender to palpation, no guarding, no appreciable organomegaly Ext: no gross muscle atrophy, no edema, no contractures Neuro: CN II-XI grossly intact, no focal neuro deficits Psych: Alert, oriented, appropriate affect Time required for patient care coordination and documentation: 35 mins Patient Condition at Discharge: Stable Plan - Discharge Summary Discharge Rx Participant: No New Discharge Prescriptions: New Pantoprazole [Protonix] 40 mg PO DAILY #30 tab Continue Atorvastatin [Lipitor] 80 mg PO HS Sertraline [Zoloft] 25 mg PO DAILY Isosorbide Mononitrate ER [Imdur] 60 mg PO DAILY Melatonin [Melatonin ER] 10 mg PO HS Pioglitazone [Actos] 15 mg PO DAILY carvediloL [Coreg*] 25 mg PO BID-W/MEALS 30 Days #120 tab amLODIPine [Norvasc] 5 mg PO DAILY #30 tab Dulaglutide [Trulicity] 0.5 ml SQ WEEKLY Insulin Degludec [Tresiba Flextouch U-100 Pen] 25 units SQ DAILY Levothyroxine Sodium [Synthroid] 125 mcg PO DAILY Ferrous Sulfate [Feosol] 325 mg PO DAILY Clopidogrel [Plavix] 75 mg PO DAILY #30 tablet Zinc Oxide 20% Oint 1 applic TOPICAL BID Cholecalciferol (Vitamin D3) [Vitamin D3 (125 MCG = 5,000 IU)] 125 mcg PO DAILY Apixaban [Eliquis] 5 mg PO DAILY Clotrimazole [Clotrimazole AF] 1 applic TOPICAL BID Discontinued Furosemide [Lasix] 40 mg PO BID@0900,1600 hydrALAZINE HCL [Apresoline] 100 mg PO TID Spironolactone [Aldactone] 25 mg PO DAILY #30 tab Discharge Medication List Atorvastatin [Lipitor] 80 mg PO HS 06/30/18 [History] Sertraline [Zoloft] 25 mg PO DAILY 08/30/21 [History] Isosorbide Mononitrate ER [Imdur] 60 mg PO DAILY 09/24/21 [History] Levothyroxine Sodium [Synthroid] 125 mcg PO DAILY 12/01/21 [History] Melatonin [Melatonin ER] 10 mg PO HS 12/01/21 [History] Ferrous Sulfate [Feosol] 325 mg PO DAILY 03/02/22 [History] Pioglitazone [Actos] 15 mg PO DAILY 04/05/22 [History] carvediloL [Coreg*] 25 mg PO BID-W/MEALS 30 Days #120 tab 04/27/22 [Rx] Clopidogrel [Plavix] 75 mg PO DAILY #30 tablet 05/29/22 [Rx] amLODIPine [Norvasc] 5 mg PO DAILY #30 tab 06/23/22 [Rx] Apixaban [Eliquis] 5 mg PO DAILY 08/07/22 [History] Cholecalciferol (Vitamin D3) [Vitamin D3 (125 MCG = 5,000 IU)] 125 mcg PO DAILY 08/07/22 [History] Clotrimazole [Clotrimazole AF] 1 applic TOPICAL BID 08/07/22 [History] Dulaglutide [Trulicity] 0.5 ml SQ WEEKLY 08/07/22 [History] Insulin Degludec [Tresiba Flextouch U-100 Pen] 25 units SQ DAILY 08/07/22 [History] Zinc Oxide 20% Oint 1 applic TOPICAL BID 08/07/22 [History] Pantoprazole [Protonix] 40 mg PO DAILY #30 tab 08/10/22 [Rx] Follow up Appointment(s)/Referral(s): [facility], [NON-STAFF] - 1 Week Lokesh Ibarra MD [Primary Care Provider] - 1-2 days Giuseppe Napoles MD [STAFF PHYSICIAN] - 1 Week
[2022-08-10 17:15] LABS: Glucose,Whole Blood 283 mg/dL (70-110)
[2022-08-10 20:17] LABS: Glucose,Whole Blood 268 mg/dL (70-110)
[2022-08-10] MEDS: MELATONIN 5 MG TABLET PO SCH (21:00)
[2022-08-10] MEDS: ATORVASTATIN 80 MG TAB PO SCH (21:00)
[2022-08-10] MEDS ORDERED: LACTATED RINGERS 1,000 ML IV SCH (22:38)
[2022-08-11] MEDS: LEVOTHYROXINE 125 MCG TAB PO SCH (06:36)
[2022-08-11 07:08] LABS: Glucose,Whole Blood 207 mg/dL (70-110)
[2022-08-11 07:49] VITALS: BP 163/68; PULSE 57; RESP 16; TEMP 97.8
[2022-08-11] MEDS: INSULIN ASPART (NovoLOG) 100 UNIT/ML VIAL SQ SCH (08:45)
[2022-08-11] MEDS: carvediloL 12.5 MG TAB PO SCH (08:45)
[2022-08-11] MEDS: CHOLECALCIFEROL 125 MCG (5000 IU) TABLET PO SCH (08:45)
[2022-08-11] MEDS: amLODIPine 5 MG TAB PO SCH (08:45)
[2022-08-11] MEDS: FERROUS SULFATE 325 MG TAB PO SCH (08:45)
[2022-08-11] MEDS: SERTRALINE 25 MG TAB PO SCH (08:45)
[2022-08-11] MEDS: PANTOPRAZOLE 40 MG/10 ML VIAL IV SCH (08:45)
[2022-08-11] MEDS: ISOSORBIDE MONONITRATE ER 60 MG TAB.ER.24H PO SCH (08:45)
[2022-08-11] MEDS: PIOGLITAZONE 15 MG TAB PO SCH (08:46)
[2022-08-11] MEDS: ZINC OXIDE 20% OINT 28.4 GM TUBE TOPICAL SCH (08:46)
[2022-08-11] MEDS: CLOTRIMAZOLE 1% CREAM 30 GM TUBE TOPICAL SCH (08:46)
[2022-08-11] MEDS: INSULIN DETEMIR (LEVEMIR) 100 UNIT/ML SYR SQ SCH (08:46)
[2022-08-11 10:45] LABS: HCT 25.2 % (34.0-46.0); HGB 7.8 gm/dL (11.4-16.0); Hypochromasia Marked; MCH 28.1 pg (25.0-35.0); MCV 90.4 fL (80.0-100.0); Platelet Count 212 k/uL (150-450); RBC 2.79 m/uL (3.80-5.40); RDW 15.2 % (11.5-15.5); WBC 8.1 k/uL (3.8-10.6)
[2022-08-11 11:12] LABS: Glucose,Whole Blood 349 mg/dL (70-110)
--- NOTE | 2022-08-11 11:23 | P.PN ---
Progress Note - Text Progress Note Date: 08/11/22 The patient's a well. She has no current pain. She is tolerating diet. She's had no further evidence of GI bleed. On exam vital signs are stable. Abdomen soft. Patient stable her discharge. She'll follow-up the office in 2 weeks.
--- NOTE | 2022-08-11 11:26 | P.DS ---
Providers Date of admission: 08/07/22 17:25 Expected date of discharge: 08/11/22 Attending physician: Latanya Ramsey MD Consults: 08/07/22 18:25 Consult Physician Routine Consulting Provider: Giuseppe Napoles Consult Reason/Comments: Gi bleed Do you want consulting provider notified?: Yes Primary care physician: Lokesh Ibarra MD Hospital Course: Discharge Diagnosis: Acute symptomatic blood loss anemia Antral Gastritis Internal and external hemorrhoids Nonoliguric, acute kidney injury on CKD 3 Diastolic CHF not in exacerbation Uncontrolled insulin-dependent type 2 diabetes mellitus Hypertension Hospital Course: 81-year-old female with a history of paroxysmal atrial fibrillation on anticoagulation, severe aortic stenosis status post TAVR, CVA/TIA presenting with concerns of melena and rectal bleeding. She claims that she feels occasional lightheadedness when she gets out of bed. Vital signs have been stable but normal BP. Patient remains 2 L oxygen, which she uses at home. Initial hemoglobin was 8.2, and now currently stable at 7.7. Patient initially presented with nonoliguric acute kidney injury, creatinine now improving. Patient is euvolemic. Lasix, spirinolactone and hydralzine held at discharge. General surgery has been consulted, EGD and colonoscopy showed antral gastritis and internal and external hemorrhoids. No active bleeding. Patient discharged with pantoprazole. Outpatient follow up with PCP Patient seen and examined at bedside. Vital signs reviewed and stable. General: nontoxic, no distress, appears at stated age Derm: warm, dry Head: atraumatic, normocephalic, symmetric Eyes: EOMI, no lid lag, anicteric sclera Mouth: no lip lesion, mucus membranes moist Cardiovascular: S1S2 reg, systolic murmur Lungs: CTA bilateral, no rhonchi, no rales , no accessory muscle use, on 2 L Abdominal: soft, nontender to palpation, no guarding, no appreciable organomegaly Ext: no gross muscle atrophy, no edema, no contractures Neuro: CN II-XI grossly intact, no focal neuro deficits Psych: Alert, oriented, appropriate affect A total of 35 minutes of time were spent preparing this complex discharge summary. Patient was discharged on 08/11/22 at 10:06. Patient Condition at Discharge: Stable Plan - Discharge Summary Discharge Rx Participant: No New Discharge Prescriptions: New Pantoprazole [Protonix] 40 mg PO DAILY #30 tab Continue Atorvastatin [Lipitor] 80 mg PO HS Sertraline [Zoloft] 25 mg PO DAILY Isosorbide Mononitrate ER [Imdur] 60 mg PO DAILY Melatonin [Melatonin ER] 10 mg PO HS Pioglitazone [Actos] 15 mg PO DAILY carvediloL [Coreg*] 25 mg PO BID-W/MEALS 30 Days #120 tab amLODIPine [Norvasc] 5 mg PO DAILY #30 tab Dulaglutide [Trulicity] 0.5 ml SQ WEEKLY Insulin Degludec [Tresiba Flextouch U-100 Pen] 25 units SQ DAILY Levothyroxine Sodium [Synthroid] 125 mcg PO DAILY Ferrous Sulfate [Feosol] 325 mg PO DAILY Clopidogrel [Plavix] 75 mg PO DAILY #30 tablet Zinc Oxide 20% Oint 1 applic TOPICAL BID Cholecalciferol (Vitamin D3) [Vitamin D3 (125 MCG = 5,000 IU)] 125 mcg PO DAILY Apixaban [Eliquis] 5 mg PO DAILY Clotrimazole [Clotrimazole AF] 1 applic TOPICAL BID Discontinued Furosemide [Lasix] 40 mg PO BID@0900,1600 hydrALAZINE HCL [Apresoline] 100 mg PO TID Spironolactone [Aldactone] 25 mg PO DAILY #30 tab Discharge Medication List Atorvastatin [Lipitor] 80 mg PO HS 06/30/18 [History] Sertraline [Zoloft] 25 mg PO DAILY 08/30/21 [History] Isosorbide Mononitrate ER [Imdur] 60 mg PO DAILY 09/24/21 [History] Levothyroxine Sodium [Synthroid] 125 mcg PO DAILY 12/01/21 [History] Melatonin [Melatonin ER] 10 mg PO HS 12/01/21 [History] Ferrous Sulfate [Feosol] 325 mg PO DAILY 03/02/22 [History] Pioglitazone [Actos] 15 mg PO DAILY 04/05/22 [History] carvediloL [Coreg*] 25 mg PO BID-W/MEALS 30 Days #120 tab 04/27/22 [Rx] Clopidogrel [Plavix] 75 mg PO DAILY #30 tablet 05/29/22 [Rx] amLODIPine [Norvasc] 5 mg PO DAILY #30 tab 06/23/22 [Rx] Apixaban [Eliquis] 5 mg PO DAILY 08/07/22 [History] Cholecalciferol (Vitamin D3) [Vitamin D3 (125 MCG = 5,000 IU)] 125 mcg PO DAILY 08/07/22 [History] Clotrimazole [Clotrimazole AF] 1 applic TOPICAL BID 08/07/22 [History] Dulaglutide [Trulicity] 0.5 ml SQ WEEKLY 08/07/22 [History] Insulin Degludec [Tresiba Flextouch U-100 Pen] 25 units SQ DAILY 08/07/22 [History] Zinc Oxide 20% Oint 1 applic TOPICAL BID 08/07/22 [History] Pantoprazole [Protonix] 40 mg PO DAILY #30 tab 08/10/22 [Rx] Follow up Appointment(s)/Referral(s): [facility], [NON-STAFF] - 1 Week Lokesh Ibarra MD [Primary Care Provider] - 1-2 days Giuseppe Napoles MD [STAFF PHYSICIAN] - 1 Week (please call for appointment) Patient Instructions/Handouts: Hemorrhoids (DC) Activity/Diet/Wound Care/Special Instructions: Please see PCP as soon as possible. Discharge Disposition: HOME WITH HOME HEALTH SERVICES
== END 2022-08-11 12:30 | disposition short-term general hospital (02) | DRG 378 ==
LOC: EC 15:31 → SUPCPDRO 15:31 → 5NMEDONC 17:25
PROVIDERS: ADMIT Family Medicine; ATTEND Family Medicine
PROC: 0DB78ZX Excision of Stomach, Pylorus, Via Natural or Artificial Opening Endoscopic, Diagnostic (ICD-10-PCS; principal; 2022-08-10 11:45)
PROC: 0DJD8ZZ Inspection of Lower Intestinal Tract, Via Natural or Artificial Opening Endoscopic (ICD-10-PCS; 2022-08-10 11:45)
DX: K29.51 Unspecified chronic gastritis with bleeding (principal); D62 Acute posthemorrhagic anemia; N17.9 Acute kidney failure, unspecified; I50.30 Unspecified diastolic (congestive) heart failure; J96.11 Chronic respiratory failure with hypoxia; I13.0 Hypertensive heart and chronic kidney disease with heart failure and stage 1 through stage 4 chronic kidney disease, or unspecified chronic kidney disease; M48.54XA Collapsed vertebra, not elsewhere classified, thoracic region, initial encounter for fracture; E11.22 Type 2 diabetes mellitus with diabetic chronic kidney disease; D50.9 Iron deficiency anemia, unspecified; N18.30 Chronic kidney disease, stage 3 unspecified; J44.9 Chronic obstructive pulmonary disease, unspecified; E03.9 Hypothyroidism, unspecified; E66.9 Obesity, unspecified; F32.A Depression, unspecified; E11.65 Type 2 diabetes mellitus with hyperglycemia; E78.5 Hyperlipidemia, unspecified; G47.33 Obstructive sleep apnea (adult) (pediatric); K92.1 Melena; K64.4 Residual hemorrhoidal skin tags; K64.8 Other hemorrhoids; I48.0 Paroxysmal atrial fibrillation; G89.29 Other chronic pain; I25.10 Atherosclerotic heart disease of native coronary artery without angina pectoris; Z20.822 Contact with and (suspected) exposure to COVID-19; Z68.33 Body mass index [BMI] 33.0-33.9, adult; Z99.81 Dependence on supplemental oxygen; Z79.899 Other long term (current) drug therapy; Z79.890 Hormone replacement therapy; Z79.84 Long term (current) use of oral hypoglycemic drugs; Z79.4 Long term (current) use of insulin; Z79.51 Long term (current) use of inhaled steroids; Z79.01 Long term (current) use of anticoagulants; Z79.02 Long term (current) use of antithrombotics/antiplatelets; Z88.1 Allergy status to other antibiotic agents; Z88.5 Allergy status to narcotic agent; Z88.8 Allergy status to other drugs, medicaments and biological substances; Z86.73 Personal history of transient ischemic attack (TIA), and cerebral infarction without residual deficits; Z95.3 Presence of xenogenic heart valve; Z98.84 Bariatric surgery status; Z87.01 Personal history of pneumonia (recurrent); Z87.19 Personal history of other diseases of the digestive system; Z86.711 Personal history of pulmonary embolism
CPT/HCPCS: 36415; 43239; 45378; 80048; 80053; 83036; 85025; 85027; 86850; 86900; 86901; 87636; 88305; 94760

== ENCOUNTER → 2022-12-12 | Outpatient (CLI) | payer OTHER ==
--- NOTE | 2022-12-12 15:58 | CT ---
EXAMINATION TYPE: CT brain wo con DATE OF EXAM: 12/12/2022 COMPARISON: Fall with pain HISTORY: Fall. No LOC, pain CT DLP: 1072.5 mGycm Automated exposure control for dose reduction was used. FINDINGS: There is intracranial atherosclerotic changes. There is a calcification in the right basal ganglia. M oderate degenerative change. Low attenuation in the white matter is nonspecific. There is no evidence of acute hemorrhage or mass effect. No midline shift. Orbits are symmetric. Calvarium intact. Sinuses are clear. IMPRESSION: NO ACUTE HEMORRHAGE OR MASS EFFECT. DEGENERATIVE AND NONSPECIFIC WHITE MATTER CHANGES MOST TYPICAL OF REMOTE ISCHEMIA.
== END | disposition home or self-care (01) ==
LOC: RADCTMAIN 15:25
PROVIDERS: ATTEND Nurse Practitioner Adult Health
DX: R90.82 White matter disease, unspecified (principal); W19.XXXA Unspecified fall, initial encounter
CPT/HCPCS: 70450

== ENCOUNTER 2023-01-28 11:55 | Emergency (ER) | payer OTHER ==
[2023-01-28 12:24] LABS: Glucose,Whole Blood 231 mg/dL (70-110)
--- NOTE | 2023-01-28 12:56 | ED ---
General Adult HPI - General Chief complaint: Nausea/Vomiting/Diarrhea Stated complaint: NAUSEA,VOMITING Time Seen by Provider: 01/28/23 11:57 Source: EMS Mode of arrival: EMS Limitations: no limitations - History of Present Illness Initial comments: Dictation was produced using [employer] dictation software. please excuse any grammatical, word or spelling errors. Chief Complaint: 82-year-old female presents to the ER for vomiting History of Present Illness: 82-year-old female she states that she had a bout of vomiting today. Patient wears a life alert necklace. She does not remember pressing the button however the life alert button staff called patient as her if she needed help. She said yes. EMS picked her up and brought her to the ER. Patient states she had a bout of vomiting. She complains of suprapubic pain. She had softserve bowel movement this morning. Denies any fever constitutional symptoms. The ROS documented in this emergency department record has been reviewed and confirmed by me. Those systems with pertinent positive or negative responses have been documented in the HPI. All other systems are other negative and/or noncontributory. - Related Data Home Medications Medication Instructions Recorded Confirmed Atorvastatin [Lipitor] 80 mg PO HS 06/30/18 10/13/22 Sertraline [Zoloft] 25 mg PO HS 08/30/21 10/13/22 Isosorbide Mononitrate ER [Imdur] 60 mg PO DAILY 09/24/21 10/13/22 Levothyroxine Sodium [Synthroid] 125 mcg PO DAILY 12/01/21 10/13/22 Melatonin [Melatonin ER] 10 mg PO HS 12/01/21 10/13/22 Ferrous Sulfate [Feosol] 325 mg PO DAILY 03/02/22 10/13/22 Apixaban [Eliquis] 5 mg PO DAILY 08/07/22 10/13/22 Cholecalciferol (Vitamin D3) 125 mcg PO DAILY 08/07/22 10/13/22 [Vitamin D3 (125 MCG = 5,000 IU)] Clotrimazole [Clotrimazole AF] 1 applic TOPICAL BID 08/07/22 10/13/22 Insulin Degludec [Tresiba 25 units SQ DAILY 08/07/22 10/13/22 Flextouch U-100 Pen] Zinc Oxide 20% Oint 1 applic TOPICAL BID 08/07/22 10/13/22 Dulaglutide [Trulicity] 3 mg SQ Q7D 10/13/22 10/13/22 Furosemide [Lasix] 40 mg PO BID 10/13/22 10/13/22 carvediloL [Coreg] 12.5 mg PO BID 10/13/22 10/13/22 Previous Rx's Medication Instructions Recorded amLODIPine [Norvasc] 5 mg PO DAILY #30 tab 06/23/22 Pantoprazole [Protonix] 40 mg PO DAILY #30 tab 08/10/22 Cefpodoxime Proxetil [Vantin] 200 mg PO Q12HR 10 Days #20 tab 01/28/23 Allergies Allergy/AdvReac Type Severity Reaction Status Date / Time azithromycin Allergy Rash/Hives Verified 01/28/23 12:09 [From Zithromax Z-Jeanmarie] methylprednisolone Allergy Rash/Hives Verified 01/28/23 12:09 [From Medrol] sulfamethoxazole Allergy Rash/Hives Verified 01/28/23 12:09 [From Bactrim] trimethoprim [From Bactrim] Allergy Rash/Hives Verified 01/28/23 12:09 hydrochlorothiazide AdvReac Unknown Verified 01/28/23 12:09 hydrocodone AdvReac Hallucinati Verified 01/28/23 12:09 ons Review of Systems ROS Statement: Those systems with pertinent positive or pertinent negative responses have been documented in the HPI. ROS Other: All systems not noted in ROS Statement are negative. Past Medical History Past Medical History: Atrial Fibrillation, Cancer, Chest Pain / Angina, Heart Failure, COPD, CVA/TIA, Diabetes Mellitus, Hyperlipidemia, Hypertension, Osteoarthritis (OA), Pneumonia, Renal Disease, Sleep Apnea/CPAP/BIPAP, Syncope, Thyroid Disorder Additional Past Medical History / Comment(s): Severe aortic stenosis with a previous TAVR, nonocclusive coronary artery disease, diabetes mellitus type 2, paroxysmal atrial fibrillation, previous pulmonary embolism based on a intermediate probability VQ scan with a negative Dopplers, obstructive sleep apnea, chronic stage III kidney disease, hypertension, hyperlipidemia, previous history of CVA, previous history of compression fracture of T12 spine, chronic back pain, chronic anemia, hypothyroidism, vitamin D deficiency, skin cancer that has been resected, previous history of pneumonia with sepsis, previous history of right-sided pleural effusion requiring thoracentesis, previous history of CVA back in 2012 History of Any Multi-Drug Resistant Organisms: None Reported Past Surgical History: Adenoidectomy, Back Surgery, Bariatric Surgery, Cho lecystectomy, Heart Catheterization, Hysterectomy, Tonsillectomy Additional Past Surgical History / Comment(s): 03/2022 TAVR, Cardiac caths , lap band placed/since removed, low back surgery, L carpal tunnel release X2, pain clinic procedures, skin cancer removal, colonoscopies, bilateral cataract removals/lens implants. Past Anesthesia/Blood Transfusion Reactions: Previous Problems w/ Anesthesia Additional Past Anesthesia/Blood Transfusion Reaction / Comment(s): "Had too much anesthesia in 2007 for lap band removal, had to be bagged." Past Psychological History: Depression Smoking Status: Never smoker Past Alcohol Use History: None Reported Past Drug Use History: None Reported - Past Family History Sister(s) Family Medical History: Myocardial Infarction (CA) Brother(s) Family Medical History: Cancer Additional Family Medical History / Comment(s): Colon Cancer. Mother Family Medical History: Dementia Additional Family Medical History / Comment(s): Mother of dementia at the age of 89yrs. Father Family Medical History: Cancer Additional Family Medical History / Comment(s): Pt states her father was treated for a sinus infection but really had leukemia and of this at the age of 72 yrs. General Exam - General Exam Comments Initial Comments: PHYSICAL EXAM: General Impression: Alert and oriented x3, not in acute distress HEENT: Normocephalic atraumatic, extra-ocular movements intact, pupils equal and reactive to light bilaterally, mucous membranes moist. Cardiovascular: Heart regular rate and rhythm Chest: Able to complete full sentences, no retractions, no tachypnea Abdomen: abdomen soft, non-tender, non-distended, no organomegaly Musculoskeletal: Pulses present and equal in all extremities, no peripheral edema Motor: no focal deficits noted Neurological: CN II-XII grossly intact, no focal motor or sensory deficits noted Skin: Intact with no visualized rashes Psych: Normal affect and mood Limitations: no limitations Course Vital Signs 01/28/23 01/28/23 01/28/23 12:01 12:03 12:30 Pulse Rate 64 64 Respiratory 20 20 Rate Blood Pressure 148/74 148/74 O2 Sat by Pulse 100 100 98 Oximetry 01/28/23 13:00 Pulse Rate 60 Respiratory 19 Rate Blood Pressure 143/77 O2 Sat by Pulse 100 Oximetry EKG Findings - EKG Comments: EKG Findings:: My EKG interpretation: Ventricular rate 59, sinus bradycardia,. Interval 155, QRS 129, QTc 463. No NC prolongation, no QTC prolongation, no ST or T-wave changes noted. EKG compared to 07/13/2023 showing no changes. Overall, this EKG is unremarkable Medical Decision Making - Medical Decision Making Was pt. sent in by a medical professional or institution (, [facility]HELA, SPECIAL EDUCATION MATH TEACHER, urgent care, hospital, or half-way...) When possible be specific @ -No Did you speak to anyone other than the patient for history (EMS, parent, family, police, friend...)? What history was obtained from this source @ -No Did you review nursing and triage notes (agree or disagree)? Why? @ -I reviewed and agree with nursing and triage notes Were old charts reviewed (outside hosp., previous admission, EMS record, old EKG, old radiological studies, urgent care reports/EKG's, half-way records)? Report findings @ -No old charts were reviewed Differential Diagnosis (chest pain, altered mental status, abdominal pain women, abdominal pain men, vaginal bleeding, musculoskeletal, weakness, fever, dyspnea, syncope, headache, dizziness, GI bleed, back pain, seizure, CVA, palpatations, mental health)? @ -Differential Weakness: Hypoglycemia, shock, sepsis, hyponatremia, anemia, infection, CA, ETOH, adverse medicine reaction, overdose, stroke, this is not meant to be an all-inclusive list. EKG interpreted by me (3pts min.). @ -See above X-rays interpreted by me (1pt min.). @ -None done CT interpreted by me (1pt min.). @ -None done U/S interpreted by me (1pt. min.). @ -None done What testing was considered but not performed or refused? (CT, X-rays, U/S, labs )? Why? @ -None What meds were considered but not given or refused? Why? @ -None Did you discuss the management of the patient with other professionals (professionals i.e. , [facility]HELA, SPECIAL EDUCATION MATH TEACHER, lab, RT, psych nurse, oncology social work, boom supervisor, teacher, foreign service officer, case management specialist)? Give summary @ -No Was smoking cessation discussed for >3mins.? @ -No Was critical care preformed (if so, how long)? @ -No Were there social determinants of health that impacted care today? How? (Homelessness, low income, unemployed, alcoholism, drug addiction, transportation, low edu. Level, literacy, decrease access to med. care, [facility], rehab)? @ -No Was there de-escalation of care discussed even if they declined (Discuss DNR or withdrawal of care, Hospice)? DNR status @ -No What co-morbidities impacted this encounter? (DM, HTN, Smoking, COPD, CAD, Cancer, CVA, ARF, Chemo, Hep., AIDS, mental health diagnosis, sleep apnea, morbid obesity)? @ -Has multiple significant comorbidities including A. fib, hypertension, diabetes and pneumonia Was patient admitted / discharged? Hospital course, mention meds given and route, prescriptions, significant lab abnormalities, going to OR and other pertinent info. @ -82-year-old female presents to the emergency department for one bout of vomiting and suprapubic pain. Vital signs are stable. Laboratory evaluation shows CBC within normal limits. Metabolic panel shows no significant derangement. Urinalysis positive for urinary tract infection. No acidosis. Patient ceftriaxone will be discharged with antibiotics. She does not have any flank pain to suggest pyelonephritis. Patient reevaluated at bedside and in stable medical condition. Patient we will discharge. Patient given return precautions. Undiagnosed new problem with uncertain prognosis? @ -No Drug Therapy requiring intensive monitoring for toxicity (Heparin, Nitro, Insulin, Cardizem)? @ -No Were any procedures done? @ -No Diagnosis/symptom? Acute, or Chronic, or Acute on Chronic? Uncomplicated (without systemic symptoms) or Complicated (systemic symptoms)? @ -1. Urinary tract infection Side effects of treatment? @ -No Exacerbation, Progression, or Severe Exacerbation? @ -No Poses a threat to life or bodily function? How? (Chest pain, USA, CA, pneumonia, PE, COPD, DKA, ARF, appy, cholecystitis, CVA, Diverticulitis, Homicidal, Suicidal, threat to staff... and all critical care pts) @ -yes - Lab Data Result diagrams: 01/28/23 12:29 01/28/23 12:29 Lab Results 01/28/23 01/28/23 01/28/23 Range/Units 12:23 12:29 12:29 WBC 11.5 H (3.8-10.6) k/uL RBC 4.74 (3.80-5.40) m/uL Hgb 13.6 (11.4-16.0) gm/dL Hct 41.8 (34.0-46.0) % MCV 88.2 (80.0-100.0) fL MCH 28.7 (25.0-35.0) pg MCHC 32.5 (31.0-37.0) g/dL RDW 13.7 (11.5-15.5) % Plt Count 235 (150-450) k/uL MPV 8.1 Neutrophils % 63 % Lymphocytes % 17 % Monocytes % 10 % Eosinophils % 6 % Basophils % 0 % Neutrophils # 7.3 (1.3-7.7) k/uL Lymphocytes # 2.0 (1.0-4.8) k/uL Monocytes # 1.2 H (0-1.0) k/uL Eosinophils # 0.6 (0-0.7) k/uL Basophils # 0.0 (0-0.2) k/uL Sodium 137 (137-145) mmol/L Potassium 4.0 (3.5-5.1) mmol/L Chloride 99 (98-107) mmol/L Carbon Dioxide 31 H (22-30) mmol/L Anion Gap 7 mmol/L BUN 25 H (7-17) mg/dL Creatinine 1.45 H (0.52-1.04) mg/dL Est GFR (CKD-EPI)AfAm 39 (>60 ml/min/1.73 sqM) Est GFR (CKD-EPI)NonAf 34 (>60 ml/min/1.73 sqM) Glucose 247 H (74-99) mg/dL POC Glucose (mg/dL) 231 H (70-110) mg/dL POC Glu Gas Substation Operator ID Leon Ortiz Calcium 8.9 (8.4-10.2) mg/dL Total Bilirubin 0.6 (0.2-1.3) mg/dL AST 24 (14-36) U/L ALT 25 (4-34) U/L Alkaline Phosphatase 129 H (38-126) U/L Total Protein 6.5 (6.3-8.2) g/dL Albumin 3.7 (3.5-5.0) g/dL Lipase 168 (23-300) U/L Urine Color Urine Appearance (Clear) Urine pH (5.0-8.0) Ur Specific [place] (1.001-1.035) Urine Protein (Negative) Urine Glucose (UA) (Negative) Urine Ketones (Negative) Urine Blood (Negative) Urine Nitrite (Negative) Urine Bilirubin (Negative) Urine Urobilinogen (<2.0) mg/dL Ur Leukocyte Esterase (Negative) Urine RBC (0-5) /hpf Urine WBC (0-5) /hpf Ur Squamous Epith Cells (0-4) /hpf Amorphous Sediment (None) /hpf Urine Bacteria (None) /hpf Hyaline Casts (0-2) /lpf 01/28/23 Range/Units 13:02 WBC (3.8-10.6) k/uL RBC (3.80-5.40) m/uL Hgb (11.4-16.0) gm/dL Hct (34.0-46.0) % MCV (80.0-100.0) fL MCH (25.0-35.0) pg MCHC (31.0-37.0) g/dL RDW (11.5-15.5) % Plt Count (150-450) k/uL MPV Neutrophils % % Lymphocytes % % Monocytes % % Eosinophils % % Basophils % % Neutrophils # (1.3-7.7) k/uL Lymphocytes # (1.0-4.8) k/uL Monocytes # (0-1.0) k/uL Eosinophils # (0-0.7) k/uL Basophils # (0-0.2) k/uL Sodium (137-145) mmol/L Potassium (3.5-5.1) mmol/L Chloride (98-107) mmol/L Carbon Dioxide (22-30) mmol/L Anion Gap mmol/L BUN (7-17) mg/dL Creatinine (0.52-1.04) mg/dL Est GFR (CKD-EPI)AfAm (>60 ml/min/1.73 sqM) Est GFR (CKD-EPI)NonAf (>60 ml/min/1.73 sqM) Glucose (74-99) mg/dL POC Glucose (mg/dL) (70-110) mg/dL POC Glu Gas Substation Operator ID Calcium (8.4-10.2) mg/dL Total Bilirubin (0.2-1.3) mg/dL AST (14-36) U/L ALT (4-34) U/L Alkaline Phosphatase (38-126) U/L Total Protein (6.3-8.2) g/dL Albumin (3.5-5.0) g/dL Lipase (23-300) U/L Urine Color Yellow Urine Appearance Cloudy H (Clear) Urine pH 6.0 (5.0-8.0) Ur Specific [place] 1.008 (1.001-1.035) Urine Protein 1+ H (Negative) Urine Glucose (UA) 4+ H (Negative) Urine Ketones Negative (Negative) Urine Blood Small H (Negative) Urine Nitrite Positive H (Negative) Urine Bilirubin Negative (Negative) Urine Urobilinogen <2.0 (<2.0) mg/dL Ur Leukocyte Esterase Large H (Negative) Urine RBC 13 H (0-5) /hpf Urine WBC 36 H (0-5) /hpf Ur Squamous Epith Cells 2 (0-4) /hpf Amorphous Sediment Occasional H (None) /hpf Urine Bacteria Many H (None) /hpf Hyaline Casts 8 H (0-2) /lpf Disposition Clinical Impression: UTI (urinary tract infection) Disposition: HOME SELF-CARE Condition: Fair Instructions (If sedation given, give patient instructions): Urinary Tract Infection in Women (ED) Prescriptions: Cefpodoxime Proxetil [Vantin] 200 mg PO Q12HR 10 Days #20 tab Is patient prescribed a controlled substance at d/c from ED?: No Referrals: Lokesh Ibarra MD [Primary Care Provider] - 1-2 days Time of Disposition: 14:55
[2023-01-28 13:09] LABS: Basophils % (A) 0 %; Eosinophils # (A) 0.6 k/uL (0-0.7); Eosinophils % (A) 6 %; HCT 41.8 % (34.0-46.0); HGB 13.6 gm/dL (11.4-16.0); Lymphocytes % (A) 17 %; MCH 28.7 pg (25.0-35.0); MCHC 32.5 g/dL (31.0-37.0); MCV 88.2 fL (80.0-100.0); Mean Platelet Volume 8.1; Monocytes # (A) 1.2 k/uL (0-1.0); Monocytes % (A) 10 %; Neutrophils # (A) 7.3 k/uL (1.3-7.7); Neutrophils % (A) 63 %; Platelet Count 235 k/uL (150-450); RBC 4.74 m/uL (3.80-5.40); RDW 13.7 % (11.5-15.5); WBC 11.5 k/uL (3.8-10.6)
[2023-01-28 13:15] LABS: Amorphous Sediment,Urine Occasional /hpf; Appearance,Urine Cloudy (Clear); Bacteria,Urine Many /hpf; Bilirubin,Urine Negative (Negative); Blood,Urine Small (Negative); Color,Urine Yellow; Glucose,Urine (UA) 4+ (Negative); Hyaline Casts,Urine 8 /lpf (0-2); Ketones,Urine Negative (Negative); Leukocyte Esterase,Urine Large (Negative); Nitrite,Urine Positive (Negative); Protein,Urine 1+ (Negative); RBC,Urine 13 /hpf (0-5); Specific Gravity,Urine 1.008 (1.001-1.035); Squamous Epithelial Cell,Urine 2 /hpf (0-4); Urobilinogen,Urine <2.0 mg/dL (<2.0); WBC,Urine 36 /hpf (0-5)
[2023-01-28 13:18] LABS: ALT 25 U/L (4-34); AST 24 U/L (14-36); African American GFR (CKD) 39 (>60 ml/min/1.73 sqM); Albumin 3.7 g/dL (3.5-5.0); Alkaline Phosphatase 129 U/L (38-126); Anion Gap 7 mmol/L; Blood Urea Nitrogen 25 mg/dL (7-17); Calcium 8.9 mg/dL (8.4-10.2); Carbon Dioxide 31 mmol/L (22-30); Chloride 99 mmol/L (98-107); Glucose 247 mg/dL (74-99); Lipase 168 U/L (23-300); Non-African American GFR(CKD) 34 (>60 ml/min/1.73 sqM); Sodium 137 mmol/L (137-145); Total Bilirubin 0.6 mg/dL (0.2-1.3); Total Protein 6.5 g/dL (6.3-8.2)
[2023-01-28] MEDS ORDERED: cefTRIAXone IN SWFI 1,000 MG/10 ML SYRINGE IVP STA (14:34)
[2023-01-28] MEDS ORDERED: ONDANSETRON 4 MG ODT STARTER PACK 2 TAB BTL PO STA (14:56)
[2023-01-28 15:03] VITALS: BP 140/70; PULSE 62; RESP 18; TEMP 98.7
== END 2023-01-28 16:00 | disposition home or self-care (01) ==
LOC: EC 11:55
DX: N39.0 Urinary tract infection, site not specified (principal); E11.22 Type 2 diabetes mellitus with diabetic chronic kidney disease; E11.36 Type 2 diabetes mellitus with diabetic cataract; I13.0 Hypertensive heart and chronic kidney disease with heart failure and stage 1 through stage 4 chronic kidney disease, or unspecified chronic kidney disease; I50.9 Heart failure, unspecified; N18.30 Chronic kidney disease, stage 3 unspecified; J44.9 Chronic obstructive pulmonary disease, unspecified; I25.10 Atherosclerotic heart disease of native coronary artery without angina pectoris; E78.5 Hyperlipidemia, unspecified; F32.A Depression, unspecified; E03.9 Hypothyroidism, unspecified; I48.0 Paroxysmal atrial fibrillation; Z79.01 Long term (current) use of anticoagulants; Z79.4 Long term (current) use of insulin; Z79.85 Long-term (current) use of injectable non-insulin antidiabetic drugs; Z79.890 Hormone replacement therapy; Z79.899 Other long term (current) drug therapy; Z88.1 Allergy status to other antibiotic agents; Z88.2 Allergy status to sulfonamides; Z88.5 Allergy status to narcotic agent; Z88.8 Allergy status to other drugs, medicaments and biological substances; Z95.2 Presence of prosthetic heart valve; Z90.49 Acquired absence of other specified parts of digestive tract; Z86.73 Personal history of transient ischemic attack (TIA), and cerebral infarction without residual deficits
CPT/HCPCS: 36415; 80053; 83690; 85025; 81001; 87086; 99284; 96374; J0696; S0119

== ENCOUNTER → 2024-01-31 | Outpatient (CLI) | payer OTHER ==
--- NOTE | 2024-02-06 09:01 | BD ---
EXAMINATION TYPE: Axial Bone Density DATE OF EXAM: 01/31/2024 CLINICAL HISTORY: 83 years old Female. ICD-10 CODE: Z79.890 HORMONE REPLACEMENT THERAPY M19.012 Height: 61.2 Weight: 185 FRAX RISK QUESTIONS: Glucocorticoids (More than 3mos): yes (Ex: prednisone, prednisolone, methylprednisolone, dexamethasone, and hydrocortisone). History of Fracture in Adulthood: yes Secondary Osteoporosis: yes 1. Type 1 Diabetes: type 2 3. Menopause before 45: yes at 39 yrs old RISK FACTORS HISTORY OF: Spine Fracture: yes, with surgical repair Surgery to Spine, vesta to low back, as an adult MEDICATIONS: bp meds, reflux meds, insulin, ozempic, steroids, vit d, Thyroid Medications: yes, synthroid for about 20+ yrs EXAM MEASUREMENTS: Bone mineral densitometry was performed using the [employer] System. spine not scanned....fractures and surgical vesta. Bone mineral density about the R hip (g/cm2): 0.921 Bone mineral density about the L hip (g/cm2): 0.931 T Score values are as follows: -----R Neck: -1.5 -----L Neck: -1.3 -----R Total: -0.7 -----L Total: -0.6 Z Score values are as follows: -----R Neck: 0.4 -----L Neck: 0.6 -----R Total: 1.0 -----L Total: 1.1 Bone mineral density has: Decreased -23.4% since study of: 05.13.2012 Bone mineral density about the L Wrist (g/cm2): 0.460 T Score values are as follows: -----Dist. R+U: -3.1 -----Prox. R+U: -2.0 -----Radius total: -3.0 Z Score values are as follows: -----Dist. R+U: -0.2 -----Prox. R+U: 0.9 -----Radius total: 0.0 Bone mineral density is the first scan of her left forearm. FRAX%s: The graph provided illustrates a 26.3% chance for a major osteoporotic fx and a 10.4% chance for the hips probability for fx in 10 years time. IMPRESSION: Osteoporosis (T Score less than -2.5). There is increased fracture risk and therapy is usually indicated based on age. Re-Screen 1-2 years. NOTE: T-SCORE=SD OF THE YOUNG ADULT MEAN.
== END | disposition home or self-care (01) ==
LOC: RADBDWWP 10:10
PROVIDERS: ATTEND Internal Medicine Hospice and Palliative Medicine
DX: M81.0 Age-related osteoporosis without current pathological fracture (principal); M85.89 Other specified disorders of bone density and structure, multiple sites; M19.012 Primary osteoarthritis, left shoulder; Z79.890 Hormone replacement therapy; Z78.0 Asymptomatic menopausal state
CPT/HCPCS: 77080

== ENCOUNTER → 2025-02-23 | Outpatient (CLI) | payer OTHER ==
--- NOTE | 2025-02-23 12:30 | CT ---
EXAMINATION TYPE: CT thor lumbar spine wo con DATE OF EXAM: 02/23/2025 11:40 AM COMPARISON: 11/17/2021 CLINICAL INDICATION: Female, 84 years old with history of M54.0,M54.16 RADICULOPATHY, LUMBAR REGION; FX OF T12 AND L3 TECHNIQUE: Axial images of the thoracic and lumbar spine were obtained without contrast. Coronal and sagittal reformats were performed. 3-D reformats of the bones were created on a separate workstation and submitted for review. CT Contrast: Contrast used: mL of , none. Oral contrast used: none. CT DLP: 1926.0 mGycm, Automated exposure control for dose reduction was used. FINDINGS: Multilevel degeneration changes are seen throughout the thoracic and lumbar spine. There is facet art hropathy and osteophyte formation. Fixation hardware at L4-L5 and S1 appears intact. Stable superior endplate deformity at L3 with 25-50% height loss. L3-L4 moderate spinal canal stenosis secondary disc bulge and facet joint arthropathy. New T12 inferior endplate deformity with 50% height loss and mild retropulsion up to 4 mm. There is scattered facet joint arthropathy and osteophytes scattered mild spinal canal stenosis in th e lumbar spine. Evaluation limited by streak artifact. No evidence for significant neural foraminal s tenosis throughout the thoracic or lumbar spine. Atherosclerosis of the arterial vasculature. IMPRESSION: 1. New T12 inferior endplate deformity from 2021 with 50% height loss and mild retropulsion up to 4 mm. Correlate with MRI. 2. Fixation changes of the spine intact are intact. 3. Stable L3 superior endplate deformity. 4. Moderate degeneration changes throughout the spine with out significant neural foraminal stenosis . 5. L3-L4 moderate spinal canal stenosis secondary disc bulge and facet joint arthropathy. [facility], , 02/23/2025 12:28 PM
== END | disposition home or self-care (01) ==
LOC: RADCTMAIN 11:10
PROVIDERS: ATTEND Internal Medicine Hospice and Palliative Medicine
DX: M54.00 Panniculitis affecting regions of neck and back, site unspecified (principal); M48.061 Spinal stenosis, lumbar region without neurogenic claudication; M47.26 Other spondylosis with radiculopathy, lumbar region; M51.16 Intervertebral disc disorders with radiculopathy, lumbar region
CPT/HCPCS: 72128; 72131